=== PATIENT | female | born 1940 | race Caucasian/White ===

== ENCOUNTER 2020-08-27 12:08 | Outpatient (REF) | payer MEDICARE, OTHER, SELFPAY ==
[2020-08-27 13:47] LABS: MANUAL DIFF FLAG NO
[2020-08-27 14:00] LABS: Basophils Absolute Auto 0.1 X10*3/uL (0.0-0.2); Basophils Percent Auto 0.7 % (0-2); Eosinophils Absolute Auto 0.2 X10*3/uL (0.0-0.4); Eosinophils Percent Auto 3.1 % (0-4); Hemoglobin 12.3 g/dl (12.0-16.0); Imm Gran Abs Auto 0.04 X10*3/uL (0.00-0.03); Imm Gran Pct Auto 0.6 % (0.0-0.4); Lymphocytes Absolute Auto 1.2 X10*3/uL (1.2-4.9); Lymphocytes Percent Auto 18.5 % (20-40); Mean Corpuscular HGB Conc 32.4 g/dl (31.0-35.0); Mean Corpuscular Hemoglobin 29.9 pg (27.0-33.0); Mean Corpuscular Volume 92.5 fL (80-98); Mean Platelet Volume 9.9 fL (9.4-12.3); Monocytes Absolute Auto 0.5 X10*3/uL (0.1-1.2); Monocytes Percent Auto 7.7 % (2-11); Neutrophils Absolute Auto 4.7 X10*3/uL (2.0-8.3); Neutrophils Percent Auto 69.4 % (45-73); Platelet Count 300 X10*3/uL (160-400); Red Blood Count 4.11 X10*6/uL (4.20-5.50); Red Cell Distribution Width 14.2 % (11.0-16.0); White Blood Count 6.7 X10*3/uL (4.8-10.8)
[2020-08-27 14:26] LABS: Alanine Aminotransferase 14 U/L (0-31); Albumin Level 3.8 g/dL (3.5-5.0); Alkaline Phosphatase 91 U/L (39-117); Anion Gap 15 (12-20); Aspartate Amino Transferase 24 U/L (5-31); Bilirubin Total 0.4 mg/dL (0.0-1.0); Blood Urea Nitrogen 17 mg/dL (9-16); C Reactive Protein 0.67 mg/dL (< or = 0.50); Calcium 9.2 mg/dL (8.4-10.2); Carbon Dioxide 26 mmol/L (22-29); Chloride 102 mmol/L (96-108); Estimated Glomerular Filt Rate 57; Glucose Random 93 mg/dL (60-115); Sodium 139 mmol/L (135-145); Total Protein 6.8 g/dL (6.5-8.0); Uric Acid 5.2 mg/dL (2.4-5.7)
[2020-08-27 14:29] LABS: Vitamin D 25-OH Total 38.9 ng/mL (>30)
== END 2020-08-27 12:09 | disposition home or self-care (01) ==
LOC: HO.10HDL 12:08
PROVIDERS: Visit Provider Student in an Organized Health Care Education/Training Program
DX: M05.79 Rheumatoid arthritis with rheumatoid factor of multiple sites without organ or systems involvement (principal); M81.0 Age-related osteoporosis without current pathological fracture; M10.071 Idiopathic gout, right ankle and foot
CPT/HCPCS: 36415; 80053; 82306; 84550; 85025; 86140

== ENCOUNTER 2020-10-05 11:33 | Outpatient (REF) | payer MEDICARE, OTHER, SELFPAY ==
--- NOTE | 2020-10-05 11:35 | XR_ITS ---
EXAMINATION: XR FOOT, RIGHT CLINICAL INFORMATION: Fracture base fifth metatarsal right foot. Follow-up. COMPARISON: Radiographs right foot 07/20/2020, 06/19/2020, 06/08/2020 TECHNIQUE: AP, lateral, and oblique views of the right foot. FINDINGS: There is stable transverse fracture base fifth metatarsal without change in alignment. No destructive process. Fracture line is still clearly visible. There is no acute bony abnormality. Again, prominent degenerative changes first MTP is again seen there is bulky plantar calcaneal spur and borderline posterior calcaneal spurring again noted. XR/XR foot RT min 3V IMPRESSION: 1. Fracture base fifth metatarsal unchanged in alignment. Fracture line still clearly visible. 2. Degenerative changes first MTP. Calcaneal spurs.
== END 2020-10-05 11:34 | disposition home or self-care (01) ==
LOC: HO.HOSX 11:33
PROVIDERS: Visit Provider Orthopaedic Surgery
DX: S92.351A Displaced fracture of fifth metatarsal bone, right foot, initial encounter for closed fracture (principal); M75.51 Bursitis of right shoulder; I10 Essential (primary) hypertension; Z79.899 Other long term (current) drug therapy
CPT/HCPCS: 20610; 73630; 99212; J1100

== ENCOUNTER 2020-12-07 08:50 | Outpatient (REF) | payer MEDICARE, OTHER, SELFPAY | END 2020-12-07 08:51 | disposition home or self-care (01) | LOC: HO.HOSX 08:50 | PROVIDERS: Visit Provider Orthopaedic Surgery | DX: Z13.89 Encounter for screening for other disorder (principal) ==

== ENCOUNTER 2020-12-14 08:24 | Outpatient (REF) | payer MEDICARE, OTHER, SELFPAY ==
--- NOTE | ~2020-12-14 | XR_ITS ---
EXAMINATION: XR FOOT, RIGHT CLINICAL INFORMATION: Nondisplaced fracture fifth metatarsal bone left foot. COMPARISON: None TECHNIQUE: AP, lateral, and oblique views of the right foot. FINDINGS: Mild loss of first MTP joint space with sclerosis consistent with degenerative changes. The DIP and PIP joints and rest of the MTP joints are normal. No visible fracture, dislocation or subluxation seen. The soft tissues are normal. The ankle mortise and subtalar joints are normal. There is a small calcaneal heel spur. XR/XR foot RT min 3V IMPRESSION: Mild degenerative changes first MTP joint without any visible acute fracture or dislocation. Small calcaneal heel spur. The soft tissues are unremarkable.
== END 2020-12-14 08:25 | disposition home or self-care (01) ==
LOC: HO.HOSX 08:24
PROVIDERS: Visit Provider Orthopaedic Surgery
DX: S92.355D Nondisplaced fracture of fifth metatarsal bone, left foot, subsequent encounter for fracture with routine healing (principal)
CPT/HCPCS: 73630; 99212

== ENCOUNTER 2020-12-28 12:34 | Emergency (ER) | payer MEDICARE, OTHER, SELFPAY ==
[2020-12-28 13:39] VITALS: BP 159/58; PULSE 82; RESP 16; TEMP 37.1; O2SAT 99; BMI 28.1
--- NOTE | 2020-12-28 14:02 | ED.GENADULT ---
HPI - General Adult General Chief complaint: Upper Respiratory Symptoms <ALFIE Barcenas - Last Filed: 12/28/20 14:38> Stated complaint: SORETHROAT <ALFIE Barcenas - Last Filed: 12/28/20 14:38> Time Seen by Provider: 12/28/20 13:48 <ALFIE Barcenas - Last Filed: 12/28/20 14:38> Source: patient <ALFIE Barcenas - Last Filed: 12/28/20 14:38> Mode of arrival: ambulatory <ALFIE Barcenas - Last Filed: 12/28/20 14:38> Limitations: no limitations <ALFIE Barcenas Last Filed: 12/28/20 14:38> History of Present Illness HPI narrative: 80 y/o female with below PMH presents to the ED with 5 days of worsening sore throat. She states it feels like she is swallowing razor blades. She reports painful swallowing but she is able to eat and drink normally. She denies fever, chills, SOB, myalgias, N/V/D. She is reporting mild, nonproductive cough intermittently and headache. She has been using warm salt water gargles without improvement. No change in voice and she is able to handle her secretions normally. <ALFIE Barcenas - Last Filed: 12/28/20 14:38> MD complaint: sore throat. <ALFIE Barcenas - Last Filed: 12/28/20 14:38> Onset (ago): day(s) (5) <ALFIE Barcenas - Last Filed: 12/28/20 14:38> Location: mouth <ALFIE Barcenas - Last Filed: 12/28/20 14:38> Radiation: non-radiation <ALFIE Barcenas Last Filed: 12/28/20 14:38> Severity: severe <ALFIE Barcenas Last Filed: 12/28/20 14:38> Quality: stabbing, sharp and constant <ALFIE Barcenas Last Filed: 12/28/20 14:38> Pain Consistency: constant <ALFIE Barcenas - Last Filed: 12/28/20 14:38> Relieving factors: medication <ALFIE Barcenas - Last Filed: 12/28/20 14:38> Exacerbating factors: eating <ALFIE Barcenas - Last Filed: 12/28/20 14:38> Associated symptoms: cough and headaches <ALFIE Barcenas - Last Filed: 12/28/20 14:38> Treatments prior to arrival: none <ALFIE Barcenas - Last Filed: 12/28/20 14:38> Related Data Home medications: Home Medications Medication Instructions Recorded Confirmed acetaminophen 325 mg tablet 325 mg PO QID PRN 09/04/20 10/08/20 calcium cit 250 mg-mag 40 mg-D3 1 tab PO DAILY 09/04/20 10/08/20 125 unit-zinc 3.75 mg-certified endoscopy technician-kd tablet fexofenadine 180 mg tablet 180 mg PO DAILY 09/04/20 10/08/20 fluorometholone acetate 0.1 % eye 2 drp OPHTHALMIC (EYE) Q1H 09/04/20 10/08/20 drops,suspension folic acid 1 mg tablet 1 mg PO DAILY 09/04/20 10/08/20 metoprolol succinate 25 mg 25 mg PO DAILY 09/04/20 10/08/20 tablet,extended release 24 hr multivitamin 1 tab PO DAILY 09/04/20 10/08/20 omeprazole 40 mg capsule,delayed 40 mg PO DAILY 09/04/20 10/08/20 release prednisolone acetate 1 % eye 2 drp OPHTHALMIC (EYE) BID 09/04/20 10/08/20 drops,suspension ropinirole 3 mg tablet 3 mg PO DAILY 09/04/20 10/08/20 vitamin B complex 1 tab PO DAILY 09/04/20 10/08/20 Previous Rx's Medication Instructions Recorded tramadol 50 mg tablet 100 mg PO BID PRN 30 Days #120 tab 09/24/20 CMF Bone Stimulator #1 ea 10/09/20 hydrochlorothiazide 25 mg tablet 25 mg PO DAILY #90 tab 10/22/20 methotrexate sodium 2.5 mg tablet See Rx Instructions PO QWEEK #120 11/10/20 tab montelukast 10 mg tablet 10 mg PO BEDTIME #90 tab 12/02/20 pravastatin 10 mg tablet 10 mg PO BEDTIME #90 tab 12/02/20 lidocaine HCl [Lidocaine Viscous] 5 ml MUCOUS MEMBRANE QID PRN #100 01/01/21 ml meloxicam 15 mg tablet 15 mg PO DAILY #30 tab 01/01/21 dyclonine 2 mg MUCOUS MEMBRANE Q2H PRN #18 ea 01/04/21 clotrimazole 10 mg abby 10 mg MUCOUS MEMBRANE TID 10 Days 01/05/21 #30 tab <ALFIE Barcenas - Last Filed: 12/28/20 14:38> Allergies/adverse reactions: Allergies Allergy/AdvReac Type Severity Reaction Status Date / Time alendronate sodium Allergy Severe ANAPHYLAXIS Verified 01/07/21 13:04 [From FOSAMAX] lisinopril [LISINOPRIL] Allergy Severe ANAPHYLAXIS, Verified 01/07/21 13:04 cough clarithromycin Allergy Intermediate CONFUSION, Verified 01/07/21 13:04 [CLARITHROMYCIN] sores on tongue, dry mouth simvastatin [SIMVASTATIN] Allergy Mild DRY Verified 01/07/21 13:04 THROAT, achy, confusion <ALFIE Barcenas - Last Filed: 12/28/20 14:38> Review of Systems Review of Systems: Constitutional: No Fever, No Chills ENT/Mouth: + sore throat, No Rhinorrhea, No Swallowing Difficulty Cardiovascular: No Chest Pain, No SOB, No Orthopnea, No Edema Respiratory: + Cough, No Sputum, No Wheezing, No dyspnea Gastrointestinal: No Nausea, No Vomiting, No Diarrhea, No abdominal Pain Musculoskeletal: No joint pain, No Myalgias Skin: No Skin Lesions, No rash Neuro: No Weakness, No Numbness, No Dizziness, + Headache Heme/Lymph: No Bruising, No Lymphadenopathy <ALFIE Barcenas Last Filed: 12/28/20 14:38> [facility] Past Medical History Attestation statement: The following information was validated with the patient. <ALFIE Barcenas Last Filed: 12/28/20 14:38> Medical History: Medical History Anxiety and depression Asthma Fracture of 5th metatarsal Fracture of fifth metatarsal bone of right foot GERD (gastroesophageal reflux disease) Gout High cholesterol Hypercholesterolemia Hypergammaglobulinemia Hypertension Hypertension Lumbar degenerative disc disease Nondisplaced fracture of fifth metatarsal bone, left foot, subsequent encounter for fracture with nonunion Obesity (BMI 30-39.9) Osteoarthritis Osteoporosis Peripheral neuropathy Polymyalgia rheumatica Restless leg syndrome Rheumatoid arthritis Seizure disorder Seropositive rheumatoid arthritis Thrush, oral <ALFIE Barcenas - Last Filed: 12/28/20 14:38> Surgical History: Surgical History Corneal transplant status H/O left knee surgery History of appendectomy History of arthroplasty of right hip History of cholecystectomy History of corneal transplant History of open reduction and internal fixation (ORIF) procedure History of total abdominal hysterectomy <ALFIE Barcenas - Last Filed: 12/28/20 14:38> Family History Family History: Family History Father CVD (cardiovascular disease) Mother No problems noted. <ALFIE Barcenas - Last Filed: 12/28/20 14:38> Social History Social History: Social History Alcohol intake: current Alcohol intake frequency: a few times a month Alcohol type: wine Smoking Status: Never smoker <ALFIE Barcenas - Last Filed: 12/28/20 14:38> Physical Exam Vital Signs: Vital Signs: Last Vital Signs Temp 98.8 F 12/28/20 13:39 Pulse 82 12/28/20 13:39 Resp 16 12/28/20 13:39 BP 159/58 H 12/28/20 13:39 Pulse Ox 99 12/28/20 13:39 Body Mass Index 28.1 Appearance: Alert. Oriented X3. No acute distress. Eyes: Pupils equal, round and reactive to light. ENT: Pharynx with enlarged tonsils bilaterally, severe erythema with mild exudates. No appreciable peritonsillar abscess, uvula is midline. voice is normal. Neck: Normal inspection. Neck supple with mild tenderness submandibularly. CVS: Normal heart rate and rhythm. Pulses normal. Respiratory: No respiratory distress. Breath sounds normal. Abdomen: Soft and nontender. +BS x4 Skin: Skin warm and dry. Normal skin color. Normal skin turgor. No rashes. Extremities: No lower extremity edema. Neuro: Oriented X 3. Non-focal. <ALFIE Barcenas - Last Filed: 12/28/20 14:38> Vital Signs: Last Vital Signs Temp 98.8 F 12/28/20 13:39 Pulse 82 12/28/20 13:39 Resp 16 12/28/20 13:39 BP 159/58 H 12/28/20 13:39 Pulse Ox 99 12/28/20 13:39 Body Mass Index 28.1 <Sourav Henao MD - Last Filed: 01/18/21 18:35> Course Course Course Narrative: 80 y/o female presenting with sore throat x5 days. Exam consistent with strep pharyngitis. Will treat accordingly. Will also test for COVID/Flu/RSV and call her with results. She is non-toxic and appears well. Management and follow up discussed and patient agrees with plan. Stable for discharge. Spoke with pharmacy about MTX reaction with penicillins however given she is on such a low dose it is safe to prescribe. <ALFIE Barcenas - Last Filed: 12/28/20 14:38> I have reviewed the chart <Sourav Henao MD - Last Filed: 01/18/21 18:35> Medical Decision Making Lab Data Labs: Lab Results 12/28/20 Range/Units 14:07 Coronavirus (PCR) NEGATIVE (Negative) Influenza Type A (PCR) NEGATIVE (Negative) Influenza Type B (PCR) NEGATIVE (Negative) RSV RNA Qual (PCR) NEGATIVE (Negative) <ALFIE Barcenas - Last Filed: 12/28/20 14:38> Lab Results 12/28/20 Range/Units 14:07 Coronavirus (PCR) NEGATIVE (Negative) Influenza Type A (PCR) NEGATIVE (Negative) Influenza Type B (PCR) NEGATIVE (Negative) RSV RNA Qual (PCR) NEGATIVE (Negative) <Sourav Henao MD - Last Filed: 01/18/21 18:35> Discharge Plan Discharge Clinical Impression: Pharyngitis <ALFIE Barcenas - Last Filed: 12/28/20 14:38> Patient Disposition: Home, Self-Care <ALFIE Barcenas - Last Filed: 12/28/20 14:38> Instructions: Pharyngitis (ED) <ALFIE Barcenas - Last Filed: 12/28/20 14:38> Additional Instructions: You were tested for COVID, Influnza & RSV - we will call you the results this afternoon. Your exam is consistent with Strep throat. Take the prescribed antibiotics as directed. Take Motrin and/or Tylenol as needed for throat pain. Recommend warm salt water gargles several times per day. Recommend over the counter Chloraseptic [place] and Cepacol lozenges to help numb your throat. Follow up with your doctor this week. If you have worsening symptoms or develop difficulty handling your own secretions, experience a change in your voice, shortness of breath or difficulty breathing come back to the ER for further evaluation. <ALFIE Barcenas - Last Filed: 12/28/20 14:38> Prescriptions: No Action tramadol 50 mg tablet 100 mg PO BID PRN (Reason: pain) 30 Days Qty: 120 RF: 4 hydrochlorothiazide 25 mg tablet 25 mg PO DAILY Qty: 90 RF: 3 methotrexate sodium 2.5 mg tablet See Rx Instructions PO QWEEK Qty: 120 RF: 0 montelukast 10 mg tablet 10 mg PO BEDTIME Qty: 90 RF: 1 pravastatin 10 mg tablet 10 mg PO BEDTIME Qty: 90 RF: 1 meloxicam 15 mg tablet 15 mg PO DAILY Qty: 30 RF: 3 Lidocaine Viscous 2 % solution 5 ml mucous membrane QID PRN (Reason: pain) Qty: 100 RF: 0 dyclonine 2 mg lozenge 2 mg mucous membrane Q2H PRN (Reason: mouth pain) Qty: 18 RF: 0 metoprolol succinate 25 mg tablet extended release 24 hr 25 mg PO DAILY RF: 0 ropinirole 3 mg tablet 3 mg PO DAILY RF: 0 fexofenadine [Marisa Allergy] 180 mg tablet 180 mg PO DAILY RF: 0 acetaminophen [Tylenol] 325 mg tablet 325 mg PO QID PRNRF: 0 prednisolone acetate 1 % drops,suspension 2 drp ophthalmic (eye) BID RF: 0 fluorometholone acetate 0.1 % drops,suspension 2 drp ophthalmic (eye) Q1H RF: 0 multivitamin Tablet 1 tab PO DAILY RF: 0 vitamin B complex [B Complex-Vitamin B12] Tablet 1 tab PO DAILY RF: 0 Calcium Citrate Plus [id number] lt-po-uasi-mg tablet 1 tab PO DAILY RF: 0 folic acid 1 mg tablet 1 mg PO DAILY RF: 0 omeprazole 40 mg capsule,delayed release(DR/EC) 40 mg PO DAILY RF: 0 clotrimazole 10 mg abby 10 mg mucous membrane TID 10 Days Qty: 30 RF: 0 (DME) CMF Bone Stimulator See Rx Instructions .Route .MEDSUPPLY Qty: 1 RF: 0 <ALFIE Barcenas - Last Filed: 12/28/20 14:38> Interventions: ED Discharge Assessment Last Done: 12/28/20 14:55 <ALFIE Barcenas - Last Filed: 12/28/20 14:38> Discharge Date/Time: 12/28/20 14:55 <ALFIE Barcenas - Last Filed: 12/28/20 14:38>
[2020-12-28 14:53] LABS: Influenza A PCR NEGATIVE (Negative); Influenza B PCR NEGATIVE (Negative); Resp Syncy Virus RNA Qual PCR NEGATIVE (Negative); SARS COV2 PCR INHOUSE NEGATIVE (Negative)
== END 2020-12-28 14:55 | disposition home or self-care (01) ==
PROVIDERS: Physician Assistant; Emergency Provider Emergency Medicine; PCP Internal Medicine
DX: J02.9 Acute pharyngitis, unspecified (principal); Z20.822 Contact with and (suspected) exposure to COVID-19; I10 Essential (primary) hypertension; J45.909 Unspecified asthma, uncomplicated; Z79.899 Other long term (current) drug therapy
CPT/HCPCS: 0241U; 36415; 99283

== ENCOUNTER 2021-01-01 11:50 | Emergency (ER) | payer MEDICARE, OTHER, SELFPAY ==
[2021-01-01 11:56] VITALS: BP 141/67; PULSE 78; RESP 18; TEMP 37.6; O2SAT 98; BMI 28.1
--- NOTE | 2021-01-01 12:14 | ED_ITS ---
HPI - General Adult General Chief complaint: General Medical Stated complaint: sores in mouth,sorethroat Time Seen by Provider: 01/01/21 12:14 History of Present Illness HPI narrative: Patient complains of sores in her mouth for the last 2-3 days which make it painful to eat She was recently started on Augmentin for a strep throat infection and has been taking it for 4 days She denies any rash, she denies any diarrhea or GI symptoms, it hurts to swallow and it hurts because of the cold sores and the sore throat but she is able to swallow Related Data Home Medications Medication Instructions Recorded Confirmed acetaminophen 325 mg tablet 325 mg PO QID PRN 09/04/20 10/08/20 calcium cit 250 mg-mag 40 mg-D3 1 tab PO DAILY 09/04/20 10/08/20 125 unit-zinc 3.75 mg-fluoroscope operator-kd tablet fexofenadine 180 mg tablet 180 mg PO DAILY 09/04/20 10/08/20 fluorometholone acetate 0.1 % eye 2 drp OPHTHALMIC (EYE) Q1H 09/04/20 10/08/20 drops,suspension folic acid 1 mg tablet 1 mg PO DAILY 09/04/20 10/08/20 metoprolol succinate 25 mg 25 mg PO DAILY 09/04/20 10/08/20 tablet,extended release 24 hr multivitamin 1 tab PO DAILY 09/04/20 10/08/20 omeprazole 40 mg capsule,delayed 40 mg PO DAILY 09/04/20 10/08/20 release prednisolone acetate 1 % eye 2 drp OPHTHALMIC (EYE) BID 09/04/20 10/08/20 drops,suspension ropinirole 3 mg tablet 3 mg PO DAILY 09/04/20 10/08/20 vitamin B complex 1 tab PO DAILY 09/04/20 10/08/20 Previous Rx's Medication Instructions Recorded tramadol 50 mg tablet 100 mg PO BID PRN 30 Days #120 tab 09/24/20 CMF Bone Stimulator #1 ea 10/09/20 hydrochlorothiazide 25 mg tablet 25 mg PO DAILY #90 tab 10/22/20 meloxicam 15 mg tablet 15 mg PO DAILY #30 tab 11/02/20 methotrexate sodium 2.5 mg tablet See Rx Instructions PO QWEEK #120 11/10/20 tab montelukast 10 mg tablet 10 mg PO BEDTIME #90 tab 12/02/20 pravastatin 10 mg tablet 10 mg PO BEDTIME #90 tab 12/02/20 amoxicillin-pot clavulanate 1 tab PO BID #20 tab 12/28/20 [Augmentin] lidocaine HCl [Lidocaine Viscous] 5 ml MUCOUS MEMBRANE QID PRN #100 01/01/21 ml Allergies Allergy/AdvReac Type Severity Reaction Status Date / Time alendronate sodium Allergy Severe ANAPHYLAXIS Verified 10/08/20 10:34 [From FOSAMAX] lisinopril [LISINOPRIL] Allergy Severe ANAPHYLAXIS, Verified 10/08/20 10:34 cough clarithromycin Allergy Intermediate CONFUSION, Verified 10/08/20 10:34 [CLARITHROMYCIN] sores on tongue, dry mouth simvastatin [SIMVASTATIN] Allergy Mild DRY Verified 10/08/20 10:34 THROAT, achy, confusion Review of Systems Review of Systems: Positive for mouth sores and sore throat Negatives are difficulty breathing, no fever no chills no dizziness no weakness no nausea no vomiting no rash on the skin Yes all other systems are reviewed and are negative PMFSH Past Medical History Source: nursing notes reviewed Medical History Anxiety and depression Asthma Fracture of 5th metatarsal Fracture of fifth metatarsal bone of right foot GERD (gastroesophageal reflux disease) Gout Hypercholesterolemia Hypergammaglobulinemia Hypertension Lumbar degenerative disc disease Nondisplaced fracture of fifth metatarsal bone, left foot, subsequent encounter for fracture with nonunion Obesity (BMI 30-39.9) Osteoarthritis Osteoporosis Peripheral neuropathy Polymyalgia rheumatica Restless leg syndrome Rheumatoid arthritis Seizure disorder Seropositive rheumatoid arthritis Surgical History Corneal transplant status H/O left knee surgery History of appendectomy History of arthroplasty of right hip History of cholecystectomy History of corneal transplant History of open reduction and internal fixation (ORIF) procedure History of total abdominal hysterectomy Family History Family History Father CVD (cardiovascular disease) Mother No problems noted. Social History Social History Alcohol intake: current Alcohol intake frequency: a few times a month Alcohol type: wine Smoking Status: Never smoker Advance Directives: No Advance Directives Information Provided: Yes Physical Exam Vital Signs: Vital Signs: Last Vital Signs Temp 99.7 F 01/01/21 11:56 Pulse 78 01/01/21 11:56 Resp 18 01/01/21 11:56 BP 141/67 H 01/01/21 11:56 Pulse Ox 98 01/01/21 11:56 Body Mass Index 28.1 General appearance is comfortable relaxed cooperative in no distress no drooling, voice is normal The ears are not red, the canals are normal There is no sinus tenderness The pharynx is red without exudate, there is no tonsillar enlargement, the uvula is midline, there is no exudate, there is no trismus There are some there are small bumps on the inner oral mucosa and on the lips, there are no white patches, nothing that looks like thrush, no ulcerations, the voice is normal The neck is supple, there is some anterior tender mobile lymphadenopathy The chest is clear to auscultation bilaterally with full symmetrical equal breath sounds The skin there are no rashes, no bullae, no ulcerations Extremities full range of motion x4 Neuro no focal deficits Course Course Course Narrative: The sores in the mouth appear to be cold sores, there were no white patches it did not look like thrush, the description of the throat from the prior visit several days ago at this department was exudate visible at this point there is no exudate and the tonsillar swelling has reduced, patient tolerates p.o. and was prescribed lidocaine for pain relief and will follow with her doctor for re-evaluation Discharge Plan Discharge Clinical Impression: Cold sore Patient Disposition: Home, Self-Care Additional Instructions: I believe the sores and small red areas I saw it in your mouth are cold sores could which can be from a concurrent viral infection I saw some redness in the back her throat and some small bumps inside your lips but I did not see any whitish areas or anything that looks like thrush Follow with primary care doctor for further evaluation if this does not resolve Return to ER any time if sores in mouth seems to be worse, if you develop a rash on the skin, or any worse condition or any concerns Prescriptions: New Lidocaine Viscous 2 % solution 5 ml mucous membrane QID PRN (Reason: pain) Qty: 100 RF: 0 No Action tramadol 50 mg tablet 100 mg PO BID PRN (Reason: pain) 30 Days Qty: 120 RF: 4 hydrochlorothiazide 25 mg tablet 25 mg PO DAILY Qty: 90 RF: 3 meloxicam 15 mg tablet 15 mg PO DAILY Qty: 30 RF: 1 methotrexate sodium 2.5 mg tablet See Rx Instructions PO QWEEK Qty: 120 RF: 0 montelukast 10 mg tablet 10 mg PO BEDTIME Qty: 90 RF: 1 pravastatin 10 mg tablet 10 mg PO BEDTIME Qty: 90 RF: 1 amoxicillin-pot clavulanate [Augmentin] 875-125 mg tablet 1 tab PO BID Qty: 20 RF: 0 metoprolol succinate 25 mg tablet extended release 24 hr 25 mg PO DAILY RF: 0 ropinirole 3 mg tablet 3 mg PO DAILY RF: 0 fexofenadine [Marisa Allergy] 180 mg tablet 180 mg PO DAILY RF: 0 acetaminophen [Tylenol] 325 mg tablet 325 mg PO QID PRNRF: 0 prednisolone acetate 1 % drops,suspension 2 drp ophthalmic (eye) BID RF: 0 fluorometholone acetate 0.1 % drops,suspension 2 drp ophthalmic (eye) Q1H RF: 0 multivitamin Tablet 1 tab PO DAILY RF: 0 vitamin B complex [B Complex-Vitamin B12] Tablet 1 tab PO DAILY RF: 0 Calcium Citrate Plus [id number] dg-ez-cqnx-mg tablet 1 tab PO DAILY RF: 0 folic acid 1 mg tablet 1 mg PO DAILY RF: 0 omeprazole 40 mg capsule,delayed release(DR/EC) 40 mg PO DAILY RF: 0 (DME) CMF Bone Stimulator See Rx Instructions .Route .MEDSUPPLY Qty: 1 RF: 0 Interventions: ED Discharge Assessment Last Done: 01/01/21 12:48 Discharge Date/Time: 01/01/21 12:48
== END 2021-01-01 12:48 | disposition home or self-care (01) ==
PROVIDERS: Emergency Provider Emergency Medicine Emergency Medical Services; PCP Internal Medicine
DX: B00.1 Herpesviral vesicular dermatitis (principal); Z79.899 Other long term (current) drug therapy
CPT/HCPCS: 99283

== ENCOUNTER 2021-01-04 11:16 | Emergency (ER) | payer MEDICARE, OTHER, SELFPAY ==
[2021-01-04 12:35] VITALS: BP 131/72; PULSE 82; RESP 18; TEMP 36.9; O2SAT 98; BMI 28.1
--- NOTE | 2021-01-04 14:52 | ED_ITS ---
HPI - URI/Sore Throat General Chief Complaint: Upper Respiratory Symptoms Stated Complaint: SORETHROAT, THROAT SORES Time Seen by Provider: 01/04/21 14:52 History of Present Illness HPI Narrative: Patient complains of mouth sores for the last week that have not resolved after getting a sore throat, sore throat is very improved but mouth sores remain, no fever no chills no difficulty breathing or swallowing, no other rash Related Data Home Medications Medication Instructions Recorded Confirmed acetaminophen 325 mg tablet 325 mg PO QID PRN 09/04/20 10/08/20 calcium cit 250 mg-mag 40 mg-D3 1 tab PO DAILY 09/04/20 10/08/20 125 unit-zinc 3.75 mg-copy supervisor-kd tablet fexofenadine 180 mg tablet 180 mg PO DAILY 09/04/20 10/08/20 fluorometholone acetate 0.1 % eye 2 drp OPHTHALMIC (EYE) Q1H 09/04/20 10/08/20 drops,suspension folic acid 1 mg tablet 1 mg PO DAILY 09/04/20 10/08/20 metoprolol succinate 25 mg 25 mg PO DAILY 09/04/20 10/08/20 tablet,extended release 24 hr multivitamin 1 tab PO DAILY 09/04/20 10/08/20 omeprazole 40 mg capsule,delayed 40 mg PO DAILY 09/04/20 10/08/20 release prednisolone acetate 1 % eye 2 drp OPHTHALMIC (EYE) BID 09/04/20 10/08/20 drops,suspension ropinirole 3 mg tablet 3 mg PO DAILY 09/04/20 10/08/20 vitamin B complex 1 tab PO DAILY 09/04/20 10/08/20 Previous Rx's Medication Instructions Recorded tramadol 50 mg tablet 100 mg PO BID PRN 30 Days #120 tab 09/24/20 [facility]F Bone Stimulator #1 ea 10/09/20 hydrochlorothiazide 25 mg tablet 25 mg PO DAILY #90 tab 10/22/20 methotrexate sodium 2.5 mg tablet See Rx Instructions PO QWEEK #120 11/10/20 tab montelukast 10 mg tablet 10 mg PO BEDTIME #90 tab 12/02/20 pravastatin 10 mg tablet 10 mg PO BEDTIME #90 tab 12/02/20 amoxicillin-pot clavulanate 1 tab PO BID #20 tab 12/28/20 [Augmentin] lidocaine HCl [Lidocaine Viscous] 5 ml MUCOUS MEMBRANE QID PRN #100 01/01/21 ml meloxicam 15 mg tablet 15 mg PO DAILY #30 tab 01/01/21 dyclonine 2 mg MUCOUS MEMBRANE Q2H PRN #18 ea 01/04/21 clotrimazole 10 mg abby 10 mg MUCOUS MEMBRANE TID 10 Days 01/05/21 #30 tab Allergies Allergy/AdvReac Type Severity Reaction Status Date / Time alendronate sodium Allergy Severe ANAPHYLAXIS Verified 01/04/21 12:35 [From FOSAMAX] lisinopril [LISINOPRIL] Allergy Severe ANAPHYLAXIS, Verified 01/04/21 12:35 cough clarithromycin Allergy Intermediate CONFUSION, Verified 01/04/21 12:35 [CLARITHROMYCIN] sores on tongue, dry mouth simvastatin [SIMVASTATIN] Allergy Mild DRY Verified 01/04/21 12:35 THROAT, achy, confusion Review of Systems Review of Systems: Positive for mouth sores negatives are no fever no chills no dizziness no weakness no sore throat no difficulty breathing or swallowing, no neck pain, no chest pain no shortness of breath, no other rash, no joint pains PMFSH Past Medical History Source: nursing notes reviewed Medical History Anxiety and depression Asthma Fracture of 5th metatarsal Fracture of fifth metatarsal bone of right foot GERD (gastroesophageal reflux disease) Gout High cholesterol Hypercholesterolemia Hypergammaglobulinemia Hypertension Hypertension Lumbar degenerative disc disease Nondisplaced fracture of fifth metatarsal bone, left foot, subsequent encounter for fracture with nonunion Obesity (BMI 30-39.9) Osteoarthritis Osteoporosis Peripheral neuropathy Polymyalgia rheumatica Restless leg syndrome Rheumatoid arthritis Seizure disorder Seropositive rheumatoid arthritis Thrush, oral Surgical History Corneal transplant status H/O left knee surgery History of appendectomy History of arthroplasty of right hip History of cholecystectomy History of corneal transplant History of open reduction and internal fixation (ORIF) procedure History of total abdominal hysterectomy Family History Family History Father CVD (cardiovascular disease) Mother No problems noted. Social History Social History Alcohol intake: current Alcohol intake frequency: a few times a month Alcohol type: wine Smoking Status: Never smoker Physical Exam Vital Signs: Vital Signs: Last Vital Signs Temp 98.4 F 01/04/21 12:35 Pulse 82 01/04/21 12:35 Resp 18 01/04/21 12:35 BP 131/72 01/04/21 12:35 Pulse Ox 98 01/04/21 12:35 Body Mass Index 28.1 General appearance no acute distress, comfortable relaxed and cooperative The pharynx is clear, there is no redness or exudate in the posterior pharynx no tonsillar swelling, there are mouth sores on the inner lower and upper lip, no trismus no facial swelling, no drooling, uvula is midline, the mouth sores appear to be small indurated areas, there is no obvious ulceration The neck is supple without stridor The chest is clear to auscultation, no respiratory distress Extremities full range of motion x4 Skin no rashes Neuro no focal deficits Course Course Course Narrative: Patient is advised that mouth sores can sometimes take up to 2 weeks to resolve and recommend follow-up with primary care doctor, if they do not resolve recommend referral to ENT Discharge Plan Discharge Clinical Impression: Mouth sores Patient Disposition: Home, Self-Care Additional Instructions: Mouth sores have not improved over the last week, but mouth sores can sometimes last 1-2 weeks and will still probably go away by themselves You can use Maalox liquid to soak in your gums by the sores and then spit out as well as Benadryl liquid to rinse and spit out as well they may help I also ordered a prescription for some lozenges that might help soothe the area as pain relief Follow with your doctor as scheduled Return any concerns Prescriptions: New dyclonine 2 mg lozenge 2 mg mucous membrane Q2H PRN (Reason: mouth pain) Qty: 18 RF: 0 No Action tramadol 50 mg tablet 100 mg PO BID PRN (Reason: pain) 30 Days Qty: 120 RF: 4 hydrochlorothiazide 25 mg tablet 25 mg PO DAILY Qty: 90 RF: 3 methotrexate sodium 2.5 mg tablet See Rx Instructions PO QWEEK Qty: 120 RF: 0 montelukast 10 mg tablet 10 mg PO BEDTIME Qty: 90 RF: 1 pravastatin 10 mg tablet 10 mg PO BEDTIME Qty: 90 RF: 1 meloxicam 15 mg tablet 15 mg PO DAILY Qty: 30 RF: 3 amoxicillin-pot clavulanate [Augmentin] 875-125 mg tablet 1 tab PO BID Qty: 20 RF: 0 Lidocaine Viscous 2 % solution 5 ml mucous membrane QID PRN (Reason: pain) Qty: 100 RF: 0 metoprolol succinate 25 mg tablet extended release 24 hr 25 mg PO DAILY RF: 0 ropinirole 3 mg tablet 3 mg PO DAILY RF: 0 fexofenadine [Marisa Allergy] 180 mg tablet 180 mg PO DAILY RF: 0 acetaminophen [Tylenol] 325 mg tablet 325 mg PO QID PRNRF: 0 prednisolone acetate 1 % drops,suspension 2 drp ophthalmic (eye) BID RF: 0 fluorometholone acetate 0.1 % drops,suspension 2 drp ophthalmic (eye) Q1H RF: 0 multivitamin Tablet 1 tab PO DAILY RF: 0 vitamin B complex [B Complex-Vitamin B12] Tablet 1 tab PO DAILY RF: 0 Calcium Citrate Plus 305-53-026-3.75 ql-cc-oogv-mg tablet 1 tab PO DAILY RF: 0 folic acid 1 mg tablet 1 mg PO DAILY RF: 0 omeprazole 40 mg capsule,delayed release(DR/EC) 40 mg PO DAILY RF: 0 clotrimazole 10 mg abby 10 mg mucous membrane TID 10 Days Qty: 30 RF: 0 (DME) CMF Bone Stimulator See Rx Instructions .Route .MEDSUPPLY Qty: 1 RF: 0 Interventions: ED Discharge Assessment Last Done: 01/04/21 15:02 Discharge Date/Time: 01/04/21 15:02
== END 2021-01-04 15:02 | disposition home or self-care (01) ==
PROVIDERS: Emergency Provider Emergency Medicine; PCP Internal Medicine
DX: K13.79 Other lesions of oral mucosa (principal); J02.9 Acute pharyngitis, unspecified; I10 Essential (primary) hypertension; J45.909 Unspecified asthma, uncomplicated; K21.9 Gastro-esophageal reflux disease without esophagitis
CPT/HCPCS: 99283

== ENCOUNTER → 2021-01-07 13:00 | Outpatient (BNVA) | payer MEDICARE, OTHER, SELFPAY | PROVIDERS: PCP Internal Medicine; Visit Provider Student in an Organized Health Care Education/Training Program | DX: M05.9 Rheumatoid arthritis with rheumatoid factor, unspecified (principal); M81.0 Age-related osteoporosis without current pathological fracture; M1A.0710 Idiopathic chronic gout, right ankle and foot, without tophus (tophi); Z79.899 Other long term (current) drug therapy | CPT/HCPCS: 99212 ==

== ENCOUNTER 2021-02-09 11:49 | Outpatient (REF) | payer MEDICARE, OTHER, SELFPAY ==
[2021-02-09 14:18] LABS: MANUAL DIFF FLAG NO
[2021-02-09 14:31] LABS: Basophils Absolute Auto 0.1 X10*3/uL (0.0-0.2); Basophils Percent Auto 1.4 % (0-2); Eosinophils Absolute Auto 0.7 X10*3/uL (0.0-0.4); Eosinophils Percent Auto 7.8 % (0-4); Hematocrit 38.5 % (37-47); Hemoglobin 12.2 g/dl (12.0-16.0); Imm Gran Abs Auto 0.03 X10*3/uL (0.00-0.03); Imm Gran Pct Auto 0.3 % (0.0-0.4); Lymphocytes Absolute Auto 2.4 X10*3/uL (1.2-4.9); Lymphocytes Percent Auto 27.6 % (20-40); Mean Corpuscular HGB Conc 31.7 g/dl (31.0-35.0); Mean Corpuscular Hemoglobin 29.3 pg (27.0-33.0); Mean Corpuscular Volume 92.5 fL (80-98); Mean Platelet Volume 10.4 fL (9.4-12.3); Monocytes Absolute Auto 0.6 X10*3/uL (0.1-1.2); Monocytes Percent Auto 6.9 % (2-11); Neutrophils Absolute Auto 4.9 X10*3/uL (2.0-8.3); Platelet Count 226 X10*3/uL (160-400); Red Blood Count 4.16 X10*6/uL (4.20-5.50); Red Cell Distribution Width 14.6 % (11.0-16.0); White Blood Count 8.8 X10*3/uL (4.8-10.8)
[2021-02-09 14:40] LABS: Alanine Aminotransferase 21 U/L (0-31); Albumin Level 3.7 g/dL (3.5-5.0); Alkaline Phosphatase 95 U/L (39-117); Anion Gap 12 (12-20); Aspartate Amino Transferase 24 U/L (5-31); Bilirubin Total 0.4 mg/dL (0.0-1.0); Blood Urea Nitrogen 18 mg/dL (9-16); Calcium 9.2 mg/dL (8.4-10.2); Carbon Dioxide 24 mmol/L (22-29); Chloride 107 mmol/L (96-108); Cholesterol 187 mg/dL; Estimated Glomerular Filt Rate > 60; Glucose Random 102 mg/dL (60-115); HDL Cholesterol 46 mg/dL; LDL Cholesterol Calculated 114 mg/dl; Potassium 4.4 mmol/L (3.3-5.1); Sodium 139 mmol/L (135-145); Total Protein 7.1 g/dL (6.5-8.0); Triglycerides 137 mg/dL
[2021-02-09 15:21] LABS: Erythrocyte Sedimentation Rate 17 MM/HR (0-20)
== END 2021-02-09 11:50 | disposition home or self-care (01) ==
LOC: HO.10HDL 11:49
PROVIDERS: Internal Medicine; Visit Provider Student in an Organized Health Care Education/Training Program
DX: M06.9 Rheumatoid arthritis, unspecified (principal); M05.9 Rheumatoid arthritis with rheumatoid factor, unspecified; E78.00 Pure hypercholesterolemia, unspecified
CPT/HCPCS: 36415; 80053; 80061; 84550; 85025; 85652; 86140

== ENCOUNTER → 2021-04-14 15:18 | Outpatient (BNVA) | payer MEDICARE, OTHER, SELFPAY | PROVIDERS: PCP Internal Medicine; Visit Provider Student in an Organized Health Care Education/Training Program | DX: M05.9 Rheumatoid arthritis with rheumatoid factor, unspecified (principal); M81.0 Age-related osteoporosis without current pathological fracture; M1A.0710 Idiopathic chronic gout, right ankle and foot, without tophus (tophi) | CPT/HCPCS: 99212 ==

== ENCOUNTER 2021-05-26 12:41 | Outpatient (REF) | payer MEDICARE, OTHER, SELFPAY ==
[2021-05-26 13:48] LABS: Alanine Aminotransferase 16 U/L (0-31); Albumin Level 4.1 g/dL (3.5-5.0); Alkaline Phosphatase 99 U/L (39-117); Anion Gap 12 (12-20); Aspartate Amino Transferase 27 U/L (5-31); Bilirubin Total 0.5 mg/dL (0.0-1.0); Blood Urea Nitrogen 19 mg/dL (9-16); Calcium 9.7 mg/dL (8.4-10.2); Carbon Dioxide 26 mmol/L (22-29); Chloride 104 mmol/L (96-108); Estimated Glomerular Filt Rate 51; Glucose Random 97 mg/dL (60-115); Potassium 5.1 mmol/L (3.3-5.1); Sodium 137 mmol/L (135-145); Total Protein 7.9 g/dL (6.5-8.0)
[2021-05-26 13:50] LABS: Uric Acid 6.7 mg/dL (2.4-5.7)
[2021-05-26 13:56] LABS: Erythrocyte Sedimentation Rate 23 MM/HR (0-20)
[2021-05-26 14:11] LABS: Free T4 (Free Thyroxine) 0.92 ng/dL (0.71-1.85); Thyroid Stimulating Hormone 1.93 uIU/mL (0.32-4.0)
[2021-05-26 15:26] LABS: Folate > 20.0 ng/mL (> or = 4.0); Vitamin B12 581 pg/mL (200-900)
== END 2021-05-26 12:42 | disposition home or self-care (01) ==
LOC: HO.LAB 12:41
PROVIDERS: Absent Provider Internal Medicine; PCP Internal Medicine; Visit Provider Student in an Organized Health Care Education/Training Program
DX: I10 Essential (primary) hypertension (principal); M05.9 Rheumatoid arthritis with rheumatoid factor, unspecified
CPT/HCPCS: 36415; 80053; 82607; 82746; 84439; 84443; 84550; 85652

== ENCOUNTER 2021-05-29 02:35 | Emergency (ER) | payer MEDICARE, OTHER, SELFPAY ==
--- NOTE | ~2021-05-29 | XR_ITS ---
EXAMINATION: XR HAND WRIST, RIGHT CLINICAL INFORMATION: Hand and wrist pain COMPARISON: 02/15/2017 TECHNIQUE: 3 views of the right hand and wrist. FINDINGS: Osseous alignment is anatomic. No acute fracture is seen. There is severe degenerative change at the basal joint of the thumb. Scattered degenerative changes are seen in the interphalangeal joints of the digits, most severe in the third digit where there is some ulnar deviation at the PIP joint. Osteopenia is noted. XR/XR hand wrist RT IMPRESSION: No acute findings identified. Degenerative changes as noted above.
--- NOTE | ~2021-05-29 | XR_ITS ---
EXAMINATION: XR ELBOW, RIGHT CLINICAL INFORMATION: Right elbow pain COMPARISON: None TECHNIQUE: AP, lateral, and oblique views of the right elbow. FINDINGS: Osseous alignment is anatomic. No acute fracture is seen. No significant effusion or focal soft tissue abnormality. XR/XR elbow RT 2V IMPRESSION: No acute findings.
--- NOTE | ~2021-05-29 | XR_ITS ---
EXAMINATION: XR HAND/WRIST LEFT CLINICAL INFORMATION: Pain COMPARISON: 02/15/2017 TECHNIQUE: 3 views of the left hand and wrist. FINDINGS: Osseous alignment is anatomic. No acute fracture is seen. There is moderate to severe degenerative change at the basal joint of the thumb. Scattered degenerative changes are also present in the interphalangeal joints of the digits. Osteopenia is noted. XR/XR hand wrist LT IMPRESSION: No acute findings identified. Degenerative changes as noted above.
[2021-05-29 02:52] VITALS: BP 124/66; PULSE 84; RESP 16; TEMP 36.4; O2SAT 99; BMI 28.2
[2021-05-29 04:47] LABS: Basophils Absolute Auto 0.1 X10*3/uL (0.0-0.2); Basophils Percent Auto 0.5 % (0-2); Eosinophils Absolute Auto 0.3 X10*3/uL (0.0-0.4); Eosinophils Percent Auto 2.3 % (0-4); Hematocrit 38.1 % (37-47); Hemoglobin 12.2 g/dl (12.0-16.0); Imm Gran Abs Auto 0.04 X10*3/uL (0.00-0.03); Imm Gran Pct Auto 0.3 % (0.0-0.4); Lymphocytes Absolute Auto 1.4 X10*3/uL (1.2-4.9); Lymphocytes Percent Auto 11.8 % (20-40); Mean Corpuscular Hemoglobin 29.4 pg (27.0-33.0); Mean Corpuscular Volume 91.8 fL (80-98); Mean Platelet Volume 9.2 fL (9.4-12.3); Monocytes Absolute Auto 0.9 X10*3/uL (0.1-1.2); Monocytes Percent Auto 7.3 % (2-11); Neutrophils Absolute Auto 9.1 X10*3/uL (2.0-8.3); Neutrophils Percent Auto 77.8 % (45-73); Platelet Count 213 X10*3/uL (160-400); Red Blood Count 4.15 X10*6/uL (4.20-5.50); Red Cell Distribution Width 13.2 % (11.0-16.0); White Blood Count 11.7 X10*3/uL (4.8-10.8)
[2021-05-29 04:48] LABS: MANUAL DIFF FLAG NO
[2021-05-29 05:23] LABS: Alanine Aminotransferase 14 U/L (0-31); Albumin Level 3.9 g/dL (3.5-5.0); Alkaline Phosphatase 103 U/L (39-117); Anion Gap 10 (12-20); Aspartate Amino Transferase 25 U/L (5-31); Bilirubin Direct 0.2 mg/dL (0.0-0.5); Bilirubin Total 0.4 mg/dL (0.0-1.0); Blood Urea Nitrogen 20 mg/dL (9-16); Carbon Dioxide 28 mmol/L (22-29); Chloride 103 mmol/L (96-108); Creatinine Clr Calc Pharmacy 46.8; Estimated Glomerular Filt Rate 53; Glucose Random 111 mg/dL (60-115); Potassium 4.3 mmol/L (3.3-5.1); Sodium 137 mmol/L (135-145); Total Protein 7.4 g/dL (6.5-8.0)
--- NOTE | 2021-05-29 06:03 | ED.EXTPRO ---
HPI - Extremity Problem General Chief complaint: Extremity Injury, Upper Stated complaint: arm pain up elbow Time Seen by Provider: 05/29/21 04:31 Source: patient Mode of arrival: ambulatory Limitations: no limitations History of Present Illness HPI Narrative: Patient comes emergency room complaining of right-sided hand pain. Patient has been diagnosed with rheumatoid arthritis in the past, patient has also history of gout. Patient states that she is currently taking methotrexate. Patient states the pain is to the stronger than usual in her right hand, on the right wrist. Patient denies swelling, no redness. Related Data Home Medications Medication Instructions Recorded Confirmed acetaminophen 325 mg tablet 325 mg PO QID PRN 09/04/20 04/14/21 calcium cit 250 mg-mag 40 mg-D3 1 tab PO DAILY 09/04/20 04/14/21 125 unit-zinc 3.75 mg-command post craftsman-kd tablet fexofenadine 180 mg tablet 180 mg PO DAILY 09/04/20 04/14/21 fluorometholone acetate 0.1 % eye 2 drp OPHTHALMIC (EYE) Q1H 09/04/20 04/14/21 drops,suspension folic acid 1 mg tablet 1 mg PO DAILY 09/04/20 04/14/21 multivitamin 1 tab PO DAILY 09/04/20 04/14/21 prednisolone acetate 1 % eye 2 drp OPHTHALMIC (EYE) BID 09/04/20 04/14/21 drops,suspension vitamin B complex 1 tab PO DAILY 09/04/20 04/14/21 Previous Rx's Medication Instructions Recorded tramadol 50 mg tablet 100 mg PO BID PRN 30 Days #120 tab 09/24/20 CMF Bone Stimulator #1 ea 10/09/20 hydrochlorothiazide 25 mg tablet 25 mg PO DAILY #90 tab 10/22/20 lidocaine HCl [Lidocaine Viscous] 5 ml MUCOUS MEMBRANE QID PRN #100 01/01/21 ml dyclonine 2 mg MUCOUS MEMBRANE Q2H PRN #18 ea 01/04/21 clotrimazole 10 mg abby 10 mg MUCOUS MEMBRANE TID 10 Days 01/05/21 #30 tab ropinirole 3 mg tablet 3 mg PO DAILY #90 tab 02/01/21 metoprolol succinate 25 mg 25 mg PO DAILY #90 tab 02/05/21 tablet,extended release 24 hr omeprazole 40 mg capsule,delayed 40 mg PO DAILY #90 cap 04/02/21 release methotrexate sodium 2.5 mg tablet 25 mg PO QWEEK #120 tab 03/18/21 montelukast 10 mg tablet 10 mg PO BEDTIME #90 tab 03/18/21 pravastatin 10 mg tablet 10 mg PO BEDTIME #90 tab 03/18/21 meloxicam 15 mg tablet 15 mg PO DAILY 90 Days #90 tab 04/21/21 oxycodone 5 mg PO TID PRN #14 cap 05/29/21 Allergies Allergy/AdvReac Type Severity Reaction Status Date / Time alendronate sodium Allergy Severe ANAPHYLAXIS Verified 05/13/21 15:30 [From FOSAMAX] lisinopril [LISINOPRIL] Allergy Severe ANAPHYLAXIS, Verified 05/13/21 15:30 cough clarithromycin Allergy Intermediate CONFUSION, Verified 05/13/21 15:30 [CLARITHROMYCIN] sores on tongue, dry mouth simvastatin [SIMVASTATIN] Allergy Mild DRY Verified 05/13/21 15:30 THROAT, achy, confusion Review of Systems Review of Systems: Constitutional : No Weight loss, No Fever, No Chills, No Night Sweats, No Fatigue, No Malaise ENT/Mouth : No Hearing loss, No Ear Pain, No Nasal Congestion, No Sinus Pain, No Hoarseness, No sore throat, No Rhinorrhea, No Swallowing Difficulty Eyes: No Eye Pain, No Swelling, No Redness, No Foreign Body, No Discharge, No Vision Changes Cardiovascular : No Chest Pain, No SOB, No Dyspnea on Exertion, No Orthopnea, No Edema, No Palpitations Respiratory : No Cough, No Sputum, No Wheezing, No Smoke Exposure, No Dyspnea Gastrointestinal : No Nausea, No Vomiting, No Diarrhea, No Constipation, No abdominal Pain, No Hematochezia, No Melena Genitourinary : no irregular bleeding, No Dysuria, No Urinary Frequency, No Hematuria, No Urinary Incontinence, No Urgency, No Flank Pain, No Urinary Flow Changes, No Hesitancy Musculoskeletal : Complaining of multiple joint pains including hands wrists ankles, No Myalgias, No Joint Swelling Skin : No Skin Lesions, No rash Neuro : No Weakness, No Numbness, No Paresthesias, No Loss of Consciousness, No Dizziness, No Headache Psych : No Anxiety/Panic, No Depression, No SI/HI/AH/VH, No Social Issues, Heme/Lymph: No Bruising, No Bleeding,No Lymphadenopathy Endocrine : No Polyuria, No Polydipsia, No Temperature Intolerance [facility] Past Medical History Medical History Anxiety and depression Asthma Fracture of 5th metatarsal Fracture of fifth metatarsal bone of right foot GERD (gastroesophageal reflux disease) Gout High cholesterol Hypercholesterolemia Hypergammaglobulinemia Hypertension Hypertension Lumbar degenerative disc disease Nondisplaced fracture of fifth metatarsal bone, left foot, subsequent encounter for fracture with nonunion Osteoarthritis Osteoporosis Overweight (BMI 25.0-29.9) Peripheral neuropathy Polymyalgia rheumatica Restless leg syndrome Rheumatoid arthritis Seizure disorder Seropositive rheumatoid arthritis Thrush, oral Surgical History Corneal transplant status H/O left knee surgery History of appendectomy History of arthroplasty of right hip History of cholecystectomy History of corneal transplant History of open reduction and internal fixation (ORIF) procedure History of total abdominal hysterectomy Family History Family History Father CVD (cardiovascular disease) Mother No problems noted. Social History Social History (Updated 04/14/21 @ 15:33 by Leroy Campbell LPN) Housing: House Alcohol intake: current Alcohol intake frequency: a few times a month Alcohol type: wine Patient Tobacco Use Status: Never used Tobacco e-Cigarette/Vaping Use: Never Used Second Hand Smoke Exposure: No Advance Directives: No Advance Directives Information Provided: No service: No Current occupational status: retired Physical Exam Vital Signs: Vital Signs: Last Vital Signs Temp 97.5 F 05/29/21 02:52 Pulse 84 05/29/21 02:52 Resp 16 05/29/21 02:52 BP 124/66 05/29/21 02:52 Pulse Ox 99 05/29/21 02:52 Body Mass Index 28.2 Appearance: Alert. Oriented X3. No acute distress. Eyes: Pupils equal, round and reactive to light. ENT: Pharynx normal. Neck: Normal inspection. Neck supple. No lymph nodes noted. No crepitus CVS: Normal heart rate and rhythm. Pulses normal. Normal S1 and S2 Respiratory: No respiratory distress. Breath sounds normal. No Wheezing. No rales Abdomen: Soft and nontender. No rigidity. No distention. good BS x4 Skin: Skin warm and dry. Normal skin color. Normal skin turgor. Extremities: No lower extremity edema. [place] deformity to digits of both hands. Patient is able to flex and extend all fingers, move wrist, no erythema, no joint swelling Neuro: Oriented X 3. No motor deficit. No sensory deficit. Moving all extermities. No slurred speech. Course Course Course Narrative: I discussed the x-rays with the patient, no acute findings. Patient likely having pain from a rheumatoid arthritis flare up. The patient states she has tried multiple NSAIDs, non-work for the intense pain. Patient states her daughter is getting next week and, would like to have something a bit stronger to help her enjoyed the ceremony. I discussed with the patient that we will go ahead and give her oxycodone, discussed judicious use of narcotics and the potential of abuse. Patient aware,. MDM - Extremity (Nontraumatic) Lab Data Result diagrams: 05/29/21 04:41 05/29/21 04:41 Labs: Lab Results 05/29/21 05/29/21 Range/Units 04:41 04:41 WBC 11.7 H (4.8-10.8) X10*3/uL RBC 4.15 L (4.20-5.50) X10*6/uL Hgb 12.2 (12.0-16.0) g/dl Hct 38.1 (37-47) % MCV 91.8 (80-98) fL MCH 29.4 (27.0-33.0) pg MCHC 32.0 (31.0-35.0) g/dl RDW 13.2 (11.0-16.0) % Plt Count 213 (160-400) X10*3/uL MPV 9.2 L (9.4-12.3) fL Immature Gran % (Auto) 0.3 (0.0-0.4) % Neut % (Auto) 77.8 H (45-73) % Lymph % (Auto) 11.8 L (20-40) % [place] % (Auto) 7.3 (2-11) % Eos % (Auto) 2.3 (0-4) % Baso % (Auto) 0.5 (0-2) % Lymph # (Auto) 1.4 (1.2-4.9) X10*3/uL [place] # (Auto) 0.9 (0.1-1.2) X10*3/uL Eos # (Auto) 0.3 (0.0-0.4) X10*3/uL Baso # (Auto) 0.1 (0.0-0.2) X10*3/uL Abs Immat Gran (auto) 0.04 H (0.00-0.03) X10*3/uL Absolute Neuts (auto) 9.1 H (2.0-8.3) X10*3/uL Absolute Nucleated RBC 0.000 (0.0-0.012) X10*3/uL Nucleated RBC % (auto) 0.0 (0.0-0.2) /100WBC Sodium 137 (135-145) mmol/L Potassium 4.3 (3.3-5.1) mmol/L Chloride 103 (96-108) mmol/L Carbon Dioxide 28 (22-29) mmol/L Anion Gap 10 L (12-20) BUN 20 H (9-16) mg/dL Creatinine 1.00 (0.5-1.4) mg/dL Estim Creat Clear Calc 46.8 Estimated GFR 53 Random Glucose 111 (60-115) mg/dL Calcium 9.0 D (8.4-10.2) mg/dL Total Bilirubin 0.4 (0.0-1.0) mg/dL Direct Bilirubin 0.2 (0.0-0.5) mg/dL AST 25 (5-31) U/L ALT 14 (0-31) U/L Alkaline Phosphatase 103 (39-117) U/L Total Protein 7.4 (6.5-8.0) g/dL Albumin 3.9 (3.5-5.0) g/dL Imaging Data Wrist x-ray: Radiologist's impression: Osseous alignment is anatomic. No acute fracture is seen. There is severe degenerative change at the basal joint of the thumb. Scattered degenerative changes are seen in the interphalangeal joints of the digits, most severe in the third digit where there is some ulnar deviation at the PIP joint. Osteopenia is noted. XR/XR hand wrist RT IMPRESSION: No acute findings identified. Degenerative changes as noted above. Elbow x-ray: Radiologist's impression: Osseous alignment is anatomic. No acute fracture is seen. No significant effusion or focal soft tissue abnormality. XR/XR elbow RT 2V IMPRESSION: No acute findings. Discharge Plan Discharge Clinical Impression: Rheumatoid arthritis Qualifiers: Rheumatoid arthritis location: multiple sites Patient Disposition: Home, Self-Care Instructions: Rheumatoid Arthritis (ED) Additional Instructions: Please follow-up with your primary care physician tomorrow. If you have any worsening or new symptoms, please return to the emergency room or call 911 Prescriptions: New oxycodone 5 mg capsule 5 mg PO TID PRN (Reason: pain) Qty: 14 RF: 0 No Action tramadol 50 mg tablet 100 mg PO BID PRN (Reason: pain) 30 Days Qty: 120 RF: 4 hydrochlorothiazide 25 mg tablet 25 mg PO DAILY Qty: 90 RF: 3 ropinirole 3 mg tablet 3 mg PO DAILY Qty: 90 RF: 2 metoprolol succinate 25 mg tablet extended release 24 hr 25 mg PO DAILY Qty: 90 RF: 3 omeprazole 40 mg capsule,delayed release(DR/EC) 40 mg PO DAILY Qty: 90 RF: 3 methotrexate sodium 2.5 mg tablet 25 mg PO QWEEK Qty: 120 RF: 0 montelukast 10 mg tablet 10 mg PO BEDTIME Qty: 90 RF: 2 pravastatin 10 mg tablet 10 mg PO BEDTIME Qty: 90 RF: 2 meloxicam 15 mg tablet 15 mg PO DAILY 90 Days Qty: 90 RF: 2 Lidocaine Viscous 2 % solution 5 ml mucous membrane QID PRN (Reason: pain) Qty: 100 RF: 0 dyclonine 2 mg lozenge 2 mg mucous membrane Q2H PRN (Reason: mouth pain) Qty: 18 RF: 0 fexofenadine [Marisa Allergy] 180 mg tablet 180 mg PO DAILY RF: 0 acetaminophen [Tylenol] 325 mg tablet 325 mg PO QID PRNRF: 0 prednisolone acetate 1 % drops,suspension 2 drp ophthalmic (eye) BID RF: 0 fluorometholone acetate 0.1 % drops,suspension 2 drp ophthalmic (eye) Q1H RF: 0 multivitamin Tablet 1 tab PO DAILY RF: 0 vitamin B complex [B Complex-Vitamin B12] Tablet 1 tab PO DAILY RF: 0 Calcium Citrate Plus [id number] ke-ie-yszk-mg tablet 1 tab PO DAILY RF: 0 folic acid 1 mg tablet 1 mg PO DAILY RF: 0 clotrimazole 10 mg abby 10 mg mucous membrane TID 10 Days Qty: 30 RF: 0 (DME) CMF Bone Stimulator See Rx Instructions .Route .MEDSUPPLY Qty: 1 RF: 0
[2021-05-29 06:39] VITALS: RESP 18
[2021-05-29] MEDS: Morphine Sulfate 2 MG/ML CARTRIDGE IM (06:39)
== END 2021-05-29 06:47 | disposition home or self-care (01) ==
PROVIDERS: Emergency Provider Emergency Medicine; PCP Internal Medicine
DX: M06.9 Rheumatoid arthritis, unspecified (principal); I10 Essential (primary) hypertension; E78.00 Pure hypercholesterolemia, unspecified
CPT/HCPCS: 36415; 73070; 73110; 73130; 80048; 80076; 85025; 96372; 99283; 99284; J2270

== ENCOUNTER 2021-07-22 11:44 | Outpatient (REF) | payer MEDICARE, OTHER, SELFPAY ==
[2021-07-22 13:09] LABS: Basophils Absolute Auto 0.1 X10*3/uL (0.0-0.2); Basophils Percent Auto 0.6 % (0-2); Eosinophils Absolute Auto 0.3 X10*3/uL (0.0-0.4); Eosinophils Percent Auto 2.9 % (0-4); Hematocrit 36.8 % (37-47); Imm Gran Abs Auto 0.16 X10*3/uL (0.00-0.03); Imm Gran Pct Auto 1.6 % (0.0-0.4); Lymphocytes Absolute Auto 2.4 X10*3/uL (1.2-4.9); Lymphocytes Percent Auto 23.5 % (20-40); MANUAL DIFF FLAG SCAN; Mean Corpuscular HGB Conc 32.6 g/dl (31.0-35.0); Mean Platelet Volume 10.1 fL (9.4-12.3); Monocytes Absolute Auto 0.6 X10*3/uL (0.1-1.2); Monocytes Percent Auto 5.3 % (2-11); Neutrophils Absolute Auto 6.8 X10*3/uL (2.0-8.3); Neutrophils Percent Auto 66.1 % (45-73); Platelet Count 216 X10*3/uL (160-400); Red Cell Distribution Width 14.5 % (11.0-16.0); SCAN SMEAR FLAG 1; White Blood Count 10.3 X10*3/uL (4.8-10.8)
[2021-07-22 13:16] LABS: Alanine Aminotransferase 21 U/L (0-31); Albumin Level 3.8 g/dL (3.5-5.0); Alkaline Phosphatase 90 U/L (39-117); Anion Gap 12 (12-20); Aspartate Amino Transferase 24 U/L (5-31); Bilirubin Total 0.8 mg/dL (0.0-1.0); Blood Urea Nitrogen 20 mg/dL (9-16); C Reactive Protein 0.56 mg/dL (< or = 0.50); Calcium 9.7 mg/dL (8.4-10.2); Carbon Dioxide 24 mmol/L (22-29); Chloride 106 mmol/L (96-108); Estimated Glomerular Filt Rate 50; Glucose Random 95 mg/dL (60-115); Potassium 4.2 mmol/L (3.3-5.1); Sodium 138 mmol/L (135-145); Total Protein 6.9 g/dL (6.5-8.0)
[2021-07-22 13:36] LABS: SLIDE REVIEW VERIFIED
[2021-07-22 14:55] LABS: Erythrocyte Sedimentation Rate 28 MM/HR (0-20)
== END 2021-07-22 11:45 | disposition home or self-care (01) ==
LOC: HO.LAB 11:44
PROVIDERS: Absent Provider Internal Medicine; PCP Internal Medicine; Visit Provider Student in an Organized Health Care Education/Training Program
DX: Z13.89 Encounter for screening for other disorder (principal)
CPT/HCPCS: 36415; 80053; 85025; 85652; 86140

== ENCOUNTER 2021-07-22 14:30 | Outpatient (REF) | payer MEDICARE, OTHER, SELFPAY ==
[2021-07-23 12:00] LABS: Leukocytes Stool Qualitative NEGATIVE (NEGATIVE)
[2021-07-23 14:08] LABS: CDiff Gene PCR NEGATIVE (Negative)
== END 2021-07-22 14:31 | disposition home or self-care (01) ==
LOC: HO.LNP 14:30
PROVIDERS: Visit Provider Internal Medicine
DX: R19.7 Diarrhea, unspecified (principal)
CPT/HCPCS: 36415; 80053; 85025; 85652; 86140; 87045; 87046; 87493; 89055

== ENCOUNTER 2021-07-23 10:59 | Outpatient (REF) | payer MEDICARE, OTHER, SELFPAY | END 2021-07-23 11:00 | disposition home or self-care (01) | LOC: HO.LNP 10:59 | PROVIDERS: Visit Provider Internal Medicine | DX: Z13.89 Encounter for screening for other disorder (principal) | CPT/HCPCS: 87045; 87046; 87493; 89055 ==

== ENCOUNTER → 2021-08-11 10:31 | Outpatient (BNVA) | payer MEDICARE, OTHER, SELFPAY | PROVIDERS: PCP Internal Medicine; Visit Provider Nurse Practitioner Family | DX: M05.9 Rheumatoid arthritis with rheumatoid factor, unspecified (principal); M81.0 Age-related osteoporosis without current pathological fracture; M1A.0710 Idiopathic chronic gout, right ankle and foot, without tophus (tophi) | CPT/HCPCS: 99212 ==

== ENCOUNTER 2021-08-19 11:07 | Outpatient (REF) | payer MEDICARE, OTHER, SELFPAY ==
--- NOTE | ~2021-08-19 | XR_ITS ---
EXAMINATION: XR LUMBOSACRAL SPINE CLINICAL INFORMATION: Lower back pain. COMPARISON: Lumbar spine radiographs dated 11/12/2018. TECHNIQUE: Three views of the lumbosacral spine. FINDINGS: Transitional anatomy with lumbarization of the S1 vertebral body and 6 nonrib-bearing lumbar-type vertebral bodies. Levocurvature of the lumbar spine is unchanged. Grade 1 anterolisthesis of L3 on L4, L4 on L5, and L5 on S1, unchanged. No loss of vertebral body height. Loss of intervertebral disc height with endplate osteophytes at L3 through S1 where there is bilateral facet arthropathy. Atherosclerotic calcifications. XR/XR lumbar spine 2-3V IMPRESSION: Transitional anatomy with lumbarization of the S1 vertebral body is redemonstrated. Stable levocurvature of the lumbar spine with grade 1 anterolisthesis of L3 on L4, L4 on L5, and L5 on S1, unchanged. Multilevel degenerative disc disease and bilateral facet arthropathy, slightly progressed.
== END 2021-08-19 11:08 | disposition home or self-care (01) ==
LOC: HO.XRAY 11:07
PROVIDERS: PCP Internal Medicine; Visit Provider Nurse Practitioner Family
DX: M54.50 Low back pain, unspecified (principal)
CPT/HCPCS: 72100

== ENCOUNTER 2021-09-14 07:50 | Emergency (ER) | payer MEDICARE, OTHER, SELFPAY ==
[2021-09-14 07:59] VITALS: BP 135/66; PULSE 66; RESP 16; TEMP 36.6; O2SAT 99; BMI 26.3
[2021-09-14] MEDS: Lidocaine HCl Viscous 2 % 15 ML SOLUTION MUCOUS MEM (08:30)
--- NOTE | 2021-09-14 09:47 | ED_ITS ---
HPI - General Adult General Chief complaint: General Medical Stated complaint: throat & mouth pain Time Seen by Provider: 09/14/21 08:15 Source: patient Mode of arrival: ambulatory History of Present Illness HPI narrative: 81-year-old female with past medical history anxiety, depression, asthma, GERD, hyperlipidemia, hypertension, thrush, seizures, rheumatoid arthritis, presenting to the ED complaining of mild sore/sore throat x1. Admits to similar symptoms in the past. Reports pain with swallowing, and weight loss secondary to decreased p.o. intake from pain. Denies throat swelling, difficulty breathing, wheezing, SOB, fever. Reports occasionally takes prednisone. Denies inhalers or other change in medications Onset (ago): week(s) Related Data Home Medications Medication Instructions Recorded Confirmed acetaminophen 325 mg tablet 325 mg PO QID PRN 09/04/20 08/11/21 (Tylenol) calcium cit 250 mg-mag 40 mg-D3 1 tab PO DAILY 09/04/20 08/11/21 125 unit-zinc 3.75 mg-copy center specialist-kd tablet (Calcium Citrate Plus) fexofenadine 180 mg tablet 180 mg PO DAILY 09/04/20 08/11/21 (Marisa Allergy) fluorometholone acetate 0.1 % eye 2 drp OPHTHALMIC (EYE) Q1H 09/04/20 08/11/21 drops,suspension multivitamin 1 tab PO DAILY 09/04/20 08/11/21 prednisolone acetate 1 % eye 2 drp OPHTHALMIC (EYE) BID 09/04/20 08/11/21 drops,suspension vitamin B complex (B 1 tab PO DAILY 09/04/20 08/11/21 Complex-Vitamin B12) Previous Rx's Medication Instructions Recorded [facility] Bone Stimulator #1 ea 10/09/20 hydrochlorothiazide 25 mg tablet 25 mg PO DAILY #90 tab 10/22/20 lidocaine HCl 2 % mucosal solution 5 ml MUCOUS MEMBRANE QID PRN #100 01/01/21 (Lidocaine Viscous) ml dyclonine 2 mg lozenges 2 mg MUCOUS MEMBRANE Q2H PRN #18 ea 01/04/21 clotrimazole 10 mg abby 10 mg MUCOUS MEMBRANE TID 10 Days 01/05/21 #30 tab metoprolol succinate 25 mg 25 mg PO DAILY #90 tab 02/05/21 tablet,extended release 24 hr omeprazole 40 mg capsule,delayed 40 mg PO DAILY #90 cap 02/05/21 release montelukast 10 mg tablet 10 mg PO BEDTIME #90 tab 03/18/21 pravastatin 10 mg tablet 10 mg PO BEDTIME #90 tab 03/18/21 allopurinol 100 mg tablet 100 mg PO DAILY #90 tab 06/22/21 tramadol 50 mg tablet 50 mg PO BID #120 tab 06/22/21 ropinirole 3 mg tablet 3 mg PO DAILY #90 tab 07/05/21 methotrexate sodium 2.5 mg tablet 25 mg PO QWEEK #120 tab 07/06/21 diphenoxylate-atropine 2.5 1 tab PO BID PRN #10 tab 07/23/21 mg-0.025 mg tablet (Lomotil) meloxicam 15 mg tablet 15 mg PO DAILY 90 Days #90 tab 08/03/21 folic acid 1 mg tablet 1 mg PO DAILY #90 tab 08/11/21 lidocaine HCl 2 % mucosal solution 5 ml MUCOUS MEMBRANE QID PRN #100 09/14/21 (Lidocaine Viscous) ml nystatin 100,000 unit/mL oral 400,000 unit (4 mL) BUCCAL QID 7 09/14/21 suspension Days #112 ml Allergies Allergy/AdvReac Type Severity Reaction Status Date / Time alendronate sodium Allergy Severe ANAPHYLAXIS Verified 08/11/21 10:46 [From FOSAMAX] lisinopril [LISINOPRIL] Allergy Severe ANAPHYLAXIS, Verified 08/11/21 10:46 cough clarithromycin Allergy Intermediate CONFUSION, Verified 08/11/21 10:46 [CLARITHROMYCIN] sores on tongue, dry mouth simvastatin [SIMVASTATIN] Allergy Mild DRY Verified 08/11/21 10:46 THROAT, achy, confusion prednisone AdvReac Intermediate vomiting Verified 08/11/21 10:46 Review of Systems Review of Systems: Constitutional: No Fever, No Chills, No Fatigue, No Malaise ENT/Mouth: No Ear Pain, No Nasal Congestion, No Sinus Pain, No Hoarseness, + sore throat, No Rhinorrhea, + Swallowing Difficulty Eyes: No Eye Pain, No Swelling, No Redness, No Discharge Cardiovascular: No Chest Pain, No SOB, No Palpitations Respiratory: No Cough, No Sputum, No Dyspnea Gastrointestinal: No Nausea, No Vomiting, No Abdominal pain Genitourinary: No Dysuria, No Urinary Frequency, No Hematuria Musculoskeletal: No joint pain, No Myalgias, No Joint Swelling Skin: + Skin Lesions, No rash Neuro: No Weakness, No Numbness, No Dizziness, No Headache Yes all other systems are reviewed and are negative [facility] Past Medical History Attestation statement: The following information was validated with the patient. Medical History Anxiety and depression Asthma Fracture of 5th metatarsal Fracture of fifth metatarsal bone of right foot GERD (gastroesophageal reflux disease) Gout High cholesterol Hypercholesterolemia Hypergammaglobulinemia Hypertension Hypertension Lumbar degenerative disc disease Nondisplaced fracture of fifth metatarsal bone, left foot, subsequent encounter for fracture with nonunion Osteoarthritis Osteoporosis Overweight (BMI 25.0-29.9) Peripheral neuropathy Polymyalgia rheumatica Restless leg syndrome Rheumatoid arthritis Seizure disorder Seropositive rheumatoid arthritis Thrush, oral Surgical History Corneal transplant status H/O left knee surgery History of appendectomy History of arthroplasty of right hip History of cholecystectomy History of corneal transplant History of open reduction and internal fixation (ORIF) procedure History of total abdominal hysterectomy Family History Family History Father CVD (cardiovascular disease) Mother No problems noted. Social History Social History Housing: House Alcohol intake: current Alcohol intake frequency: a few times a month Alcohol type: wine Patient Tobacco Use Status: Never used Tobacco e-Cigarette/Vaping Use: Never Used Second Hand Smoke Exposure: No Advance Directives: No service: No Current occupational status: retired Physical Exam Vital Signs: Vital Signs: Last Vital Signs Temp 97.9 F 09/14/21 07:59 Pulse 66 09/14/21 07:59 Resp 16 09/14/21 07:59 BP 135/66 09/14/21 07:59 Pulse Ox 99 09/14/21 07:59 Body Mass Index 26.3 Const: General: cooperative and no acute distress Orientation/consciousness: patient oriented x3 Limitations: no limitations HENMT: Other: + mouth sores present to hard palate, lower and upper lip. Tongue with white film consistent with thrush. Uvula midline, no uvular edema, talking in complete sentences, no facial swelling, no drooling, no evidence of cellulitis/drainage or fluctuance. No evidence of INDUSTRIAL SERVICER. No submandibular lymphadenopathy Head: Yes normal to inspection Ears: hearing grossly normal bilaterally General nose exam: Normal external nose present Face and sinus: Yes normal facial exam Mouth: no drooling and no muffled voice Thr oat: Yes tonsils normal, Yes uvula midline, No peritonsillar mass and No uvular edema Eyes: General: appearance normal, both eyes and all related structures EOM: EOMs intact bilaterally Neck: Neck: Yes normal visual inspection, Yes no meningeal signs, Yes supple and No anterior neck swelling Resp: Effort & Inspection: normal respiratory effort, not labored and no stridor Auscultation: clear to auscultation bilaterally Cardio: Rate: regular rate Heart sounds: S1 normal heart sound present and S2 normal heart sound present Skin: Rashes: no rashes Wounds: no wounds Neuro: General: patient oriented x3 and no meningeal signs Gait exam (Neuro): Normal gait present Extrem: General: Yes normal to inspection Medical Decision Making MDM Narrative Medical decision making narrative: 81-year-old female with past medical history anxiety, depression, asthma, GERD, hyperlipidemia, hypertension, thrush, seizures, rheumatoid arthritis, presenting to the ED complaining of mild sore/sore throat x1. On exam vital signs stable, nontoxic, physical exam as above consistent with thrush and intraoral sores questionable for aphthous ulcers. No evidence of INDUSTRIAL SERVICER or strep pharyngitis Discussed with patient will treat for thrush & also with topical pain management, recommended ENT follow-up. Discussed worrisome signs and symptoms and strict return precautions, she verbalized understanding feel safe for discharge home at this time Discharge Plan Discharge Clinical Impression: Mouth sores Patient Disposition: Home, Self-Care Instructions: Canker Sores (ED) Additional Instructions: Nystatin with an antifungal solution will help treat thrush Lidocaine is a numbing agent, use as prescribed as needed for pain In addition recommended [id number] Cepacol lozenge and Chloraseptic spray will help with pain You can also practice warm salt water gargle several times a day Please take Tylenol and Motrin for pain/swelling Please follow-up with ENT specialist If her symptoms persist or worsen, your unable to eat or drink, pain becomes unbearable, he developed fever, oral swelling, difficulty breathing please return to the ED Prescriptions: New nystatin 100,000 unit/mL suspension 400,000 unit buccal QID 7 Days Qty: 112 RF: 0 lidocaine HCl [Lidocaine Viscous] 2 % solution 5 ml mucous membrane QID PRN (Reason: pain) Qty: 100 RF: 0 No Action hydrochlorothiazide 25 mg tablet 25 mg PO DAILY Qty: 90 RF: 3 metoprolol succinate 25 mg tablet extended release 24 hr 25 mg PO DAILY Qty: 90 RF: 3 omeprazole 40 mg capsule,delayed release(DR/EC) 40 mg PO DAILY Qty: 90 RF: 3 montelukast 10 mg tablet 10 mg PO BEDTIME Qty: 90 RF: 2 pravastatin 10 mg tablet 10 mg PO BEDTIME Qty: 90 RF: 2 tramadol 50 mg tablet 50 mg PO BID Qty: 120 RF: 3 allopurinol 100 mg tablet 100 mg PO DAILY Qty: 90 RF: 1 methotrexate sodium 2.5 mg tablet 25 mg PO QWEEK Qty: 120 RF: 0 diphenoxylate-atropine [Lomotil] 2.5-0.025 mg tablet 1 tab PO BID PRN (Reason: diarrhea) Qty: 10 RF: 1 meloxicam 15 mg tablet 15 mg PO DAILY 90 Days Qty: 90 RF: 2 Lidocaine Viscous 2 % solution 5 ml mucous membrane QID PRN (Reason: pain) Qty: 100 RF: 0 dyclonine 2 mg lozenge 2 mg mucous membrane Q2H PRN (Reason: mouth pain) Qty: 18 RF: 0 fexofenadine [Marisa Allergy] 180 mg tablet 180 mg PO DAILY RF: 0 acetaminophen [Tylenol] 325 mg tablet 325 mg PO QID PRNRF: 0 prednisolone acetate 1 % drops,suspension 2 drp ophthalmic (eye) BID RF: 0 fluorometholone acetate 0.1 % drops,suspension 2 drp ophthalmic (eye) Q1H RF: 0 multivitamin Tablet 1 tab PO DAILY RF: 0 vitamin B complex [B Complex-Vitamin B12] Tablet 1 tab PO DAILY RF: 0 Calcium Citrate Plus 132-78-062-3.75 tx-nu-epxk-mg tablet 1 tab PO DAILY RF: 0 clotrimazole 10 mg abby 10 mg mucous membrane TID 10 Days Qty: 30 RF: 0 ropinirole 3 mg tablet 3 mg PO DAILY Qty: 90 RF: 2 (DME) CMF Bone Stimulator See Rx Instructions .Route .MEDSUPPLY Qty: 1 RF: 0 folic acid 1 mg tablet 1 mg PO DAILY Qty: 90 RF: 2 Referrals: Singh June [Physician] - 2 days Interventions: ED Discharge Assessment Last Done: 09/14/21 08:53 Discharge Date/Time: 09/14/21 08:54
== END 2021-09-14 08:54 | disposition home or self-care (01) ==
PROVIDERS: Emergency Provider Emergency Medicine; PCP Internal Medicine
DX: K13.79 Other lesions of oral mucosa (principal); J02.9 Acute pharyngitis, unspecified; B37.0 Candidal stomatitis; I10 Essential (primary) hypertension; E78.5 Hyperlipidemia, unspecified; Z79.899 Other long term (current) drug therapy
CPT/HCPCS: 99283; 99284

== ENCOUNTER 2021-09-16 06:42 | Emergency (ER) | payer MEDICARE, OTHER, SELFPAY ==
[2021-09-16 07:10] VITALS: BP 165/72; PULSE 109; RESP 19; TEMP 36.6; O2SAT 97; BMI 26.2
--- NOTE | 2021-09-16 07:59 | ED_ITS ---
HPI - General Adult General Chief complaint: General Medical Stated complaint: throat pain Time Seen by Provider: 09/16/21 07:59 Source: patient Mode of arrival: ambulatory Limitations: no limitations History of Present Illness HPI narrative: patient seen recently for thrush. She is not on new antibiotics, no steroids, but is on chemotherapy for rheumatoid arthritis. she was seen 2 days ago and placed on nystatin gargle and swallow with lidocaine. Now with ulcerations to lips and feels her throat getting worse. Patient had noticed 2 weeks ago that she was getting a sore throat. Severity: moderate Quality: burning Pain Consistency: constant Associated symptoms: denies other symptoms Related Data Home Medications Medication Instructions Recorded Confirmed acetaminophen 325 mg tablet 325 mg PO QID PRN 09/04/20 08/11/21 (Tylenol) calcium cit 250 mg-mag 40 mg-D3 1 tab PO DAILY 09/04/20 08/11/21 125 unit-zinc 3.75 mg-certified endoscopy technician-kd tablet (Calcium Citrate Plus) fexofenadine 180 mg tablet 180 mg PO DAILY 09/04/20 08/11/21 (Marisa Allergy) fluorometholone acetate 0.1 % eye 2 drp OPHTHALMIC (EYE) Q1H 09/04/20 08/11/21 drops,suspension multivitamin 1 tab PO DAILY 09/04/20 08/11/21 prednisolone acetate 1 % eye 2 drp OPHTHALMIC (EYE) BID 09/04/20 08/11/21 drops,suspension vitamin B complex (B 1 tab PO DAILY 09/04/20 08/11/21 Complex-Vitamin B12) Previous Rx's Medication Instructions Recorded CMF Bone Stimulator #1 ea 10/09/20 hydrochlorothiazide 25 mg tablet 25 mg PO DAILY #90 tab 10/22/20 lidocaine HCl 2 % mucosal solution 5 ml MUCOUS MEMBRANE QID PRN #100 01/01/21 (Lidocaine Viscous) ml dyclonine 2 mg lozenges 2 mg MUCOUS MEMBRANE Q2H PRN #18 ea 01/04/21 clotrimazole 10 mg abby 10 mg MUCOUS MEMBRANE TID 10 Days 01/05/21 #30 tab metoprolol succinate 25 mg 25 mg PO DAILY #90 tab 02/05/21 tablet,extended release 24 hr omeprazole 40 mg capsule,delayed 40 mg PO DAILY #90 cap 02/05/21 release montelukast 10 mg tablet 10 mg PO BEDTIME #90 tab 03/18/21 pravastatin 10 mg tablet 10 mg PO BEDTIME #90 tab 03/18/21 allopurinol 100 mg tablet 100 mg PO DAILY #90 tab 06/22/21 tramadol 50 mg tablet 50 mg PO BID #120 tab 06/22/21 ropinirole 3 mg tablet 3 mg PO DAILY #90 tab 07/05/21 methotrexate sodium 2.5 mg tablet 25 mg PO QWEEK #120 tab 07/06/21 diphenoxylate-atropine 2.5 1 tab PO BID PRN #10 tab 07/23/21 mg-0.025 mg tablet (Lomotil) meloxicam 15 mg tablet 15 mg PO DAILY 90 Days #90 tab 08/03/21 folic acid 1 mg tablet 1 mg PO DAILY #90 tab 08/11/21 lidocaine HCl 2 % mucosal solution 5 ml MUCOUS MEMBRANE QID PRN #100 09/14/21 (Lidocaine Viscous) ml nystatin 100,000 unit/mL oral 400,000 unit (4 mL) BUCCAL QID 7 09/14/21 suspension Days #112 ml fluconazole 150 mg tablet 150 mg PO DAILY #1 tab 09/16/21 (Diflucan) Allergies Allergy/AdvReac Type Severity Reaction Status Date / Time alendronate sodium Allergy Severe ANAPHYLAXIS Verified 08/11/21 10:46 [From FOSAMAX] lisinopril [LISINOPRIL] Allergy Severe ANAPHYLAXIS, Verified 08/11/21 10:46 cough clarithromycin Allergy Intermediate CONFUSION, Verified 08/11/21 10:46 [CLARITHROMYCIN] sores on tongue, dry mouth simvastatin [SIMVASTATIN] Allergy Mild DRY Verified 08/11/21 10:46 THROAT, achy, confusion prednisone AdvReac Intermediate vomiting Verified 08/11/21 10:46 Review of Systems Constitutional: Constitutional: Reports no additional constitutional comp laints Eyes: Eyes: Reports no additional eye complaints ENT: Denies dizziness Cardiovascular: Cardiovascular: Reports no additional cardiovascular complaints Respiratory: Respiratory: Reports as per HPI Gastrointestinal: Gastrointestinal: Reports no additional gastrointestinal complaints Genitourinary: Genitourinary: Reports no additional female genitourinary complaints Musculoskeletal: Musculoskeletal: Reports no additional musculoskeletal c omplaints Integumentary/Breasts: Skin/Breast: Denies rash Neurologic: Reports system reviewed and no additional complaints, except as documented, Denies dizziness and Denies Sensory deficit (Neuro) Psychiatric: Psychiatric: Denies anxiety [facility] Past Medical History Medical History Anxiety and depression Asthma Fracture of 5th metatarsal Fracture of fifth metatarsal bone of right foot GERD (gastroesophageal reflux disease) Gout High cholesterol Hypercholesterolemia Hypergammaglobulinemia Hypertension Hypertension Lumbar degenerative disc disease Nondisplaced fracture of fifth metatarsal bone, left foot, subsequent encounter for fracture with nonunion Osteoarthritis Osteoporosis Overweight (BMI 25.0-29.9) Peripheral neuropathy Polymyalgia rheumatica Restless leg syndrome Rheumatoid arthritis Seizure disorder Seropositive rheumatoid arthritis Thrush, oral Surgical History Corneal transplant status H/O left knee surgery History of appendectomy History of arthroplasty of right hip History of cholecystectomy History of corneal transplant History of open reduction and internal fixation (ORIF) procedure History of total abdominal hysterectomy Family History Family History Father CVD (cardiovascular disease) Mother No problems noted. Social History Social History Housing: House Alcohol intake: current Alcohol intake frequency: a few times a month Alcohol type: wine Patient Tobacco Use Status: Never used Tobacco e-Cigarette/Vaping Use: Never Used Second Hand Smoke Exposure: No Advance Directives: No Advance Directives Information Provided: Yes service: No Current occupational status: retired Physical Exam Vital Signs: Vital Signs: Last Vital Signs Temp 98.6 F 09/16/21 09:31 Pulse 77 09/16/21 09:31 Resp 19 09/16/21 07:10 BP 144/70 H 09/16/21 09:31 Pulse Ox 96 09/16/21 09:31 Body Mass Index 26.2 Const: General: healthy appearing Nutritional Appearance: average body habitus Orientation/consciousness: oriented to person and patient oriented x3 Limitations: no limitations HENMT: Other: patient with thrush to lips and tongue with lips with scab and bleeding, pharynx with diffuse thrush Ears: external ears normal General nose exam: Normal external nose present Mouth: Normal oral and palatal mucosa present and oropharynx normal Throat: Yes posterior oropharynx normal Eyes: General: appearance normal, both eyes and all related structures Neck: Other: supple Neck: Yes normal visual inspection Chest: Chest palpation & inspection: normal inspection of the chest Resp: Auscultation: clear to auscultation bilaterally Cardio: Jugular venous distension: no JVD Rate: regular rate Rhythm: regular rhythm Heart sounds: S1 normal heart sound present and S2 normal heart sound present GI: Inspection: Yes normal to inspection Palpation (GI): Soft to palpation, nontender and No hepatosplenomegaly present Auscultation: normal bowel sounds : General: Yes no CVA tenderness Back/Spine/Pelvis: Back: no CVA tenderness Skin: General skin exam: no rashes or lesions noted Neuro: General: oriented to person and patient oriented x3 Cranial nerves: Yes CN's II-XII intact bilaterally Motor exam (neuro): 5/5 motor strength present throughout Sensory Exam: No Sensory deficit (Neuro) Extrem: General: Yes normal to inspection Psych: Appearance: grossly normal Course Reevaluation(s) Reevaluation #1: patient with thrush outbreak to oral pharynx, lips and tongue secondary to rheumatoid treatments will start difulcan Time: 08:15 Medical Decision Making Lab Data Labs: Lab Results 09/16/21 Range/Units 08:53 POC Glucose 86 (60-115) mg/dL Discharge Plan Discharge Clinical Impression: Thrush, oral Patient Disposition: Home, Self-Care Instructions: Oral Candidiasis (ED), Oral Mucositis (ED) Prescriptions: New fluconazole [Diflucan] 150 mg tablet 150 mg PO DAILY Qty: 1 RF: 0 No Action hydrochlorothiazide 25 mg tablet 25 mg PO DAILY Qty: 90 RF: 3 metoprolol succinate 25 mg tablet extended release 24 hr 25 mg PO DAILY Qty: 90 RF: 3 omeprazole 40 mg capsule,delayed release(DR/EC) 40 mg PO DAILY Qty: 90 RF: 3 montelukast 10 mg tablet 10 mg PO BEDTIME Qty: 90 RF: 2 pravastatin 10 mg tablet 10 mg PO BEDTIME Qty: 90 RF: 2 tramadol 50 mg tablet 50 mg PO BID Qty: 120 RF: 3 allopurinol 100 mg tablet 100 mg PO DAILY Qty: 90 RF: 1 methotrexate sodium 2.5 mg tablet 25 mg PO QWEEK Qty: 120 RF: 0 diphenoxylate-atropine [Lomotil] 2.5-0.025 mg tablet 1 tab PO BID PRN (Reason: diarrhea) Qty: 10 RF: 1 meloxicam 15 mg tablet 15 mg PO DAILY 90 Days Qty: 90 RF: 2 Lidocaine Viscous 2 % solution 5 ml mucous membrane QID PRN (Reason: pain) Qty: 100 RF: 0 dyclonine 2 mg lozenge 2 mg mucous membrane Q2H PRN (Reason: mouth pain) Qty: 18 RF: 0 nystatin 100,000 unit/mL suspension 400,000 unit buccal QID 7 Days Qty: 112 RF: 0 lidocaine HCl [Lidocaine Viscous] 2 % solution 5 ml mucous membrane QID PRN (Reason: pain) Qty: 100 RF: 0 fexofenadine [Marisa Allergy] 180 mg tablet 180 mg PO DAILY RF: 0 acetaminophen [Tylenol] 325 mg tablet 325 mg PO QID PRNRF: 0 prednisolone acetate 1 % drops,suspension 2 drp ophthalmic (eye) BID RF: 0 fluorometholone acetate 0.1 % drops,suspension 2 drp ophthalmic (eye) Q1H RF: 0 multivitamin Tablet 1 tab PO DAILY RF: 0 vitamin B complex [B Complex-Vitamin B12] Tablet 1 tab PO DAILY RF: 0 Calcium Citrate Plus [id number] ob-jb-mlar-mg tablet 1 tab PO DAILY RF: 0 clotrimazole 10 mg abby 10 mg mucous membrane TID 10 Days Qty: 30 RF: 0 ropinirole 3 mg tablet 3 mg PO DAILY Qty: 90 RF: 2 (DME) CMF Bone Stimulator See Rx Instructions .Route .MEDSUPPLY Qty: 1 RF: 0 folic acid 1 mg tablet 1 mg PO DAILY Qty: 90 RF: 2 Referrals: Po,Renetta Seo MD [Primary Care Provider] - 1 week
[2021-09-16] MEDS: Fluconazole 150 MG TABLET PO (08:55)
[2021-09-16 09:11] LABS: Glucose, Whole Blood 86 mg/dL (60-115)
[2021-09-16 09:31] VITALS: BP 144/70; PULSE 77; TEMP 37; O2SAT 96
== END 2021-09-16 09:52 | disposition home or self-care (01) ==
PROVIDERS: Emergency Provider Emergency Medicine; PCP Internal Medicine
DX: B37.0 Candidal stomatitis (principal); I10 Essential (primary) hypertension; M06.9 Rheumatoid arthritis, unspecified; Z79.899 Other long term (current) drug therapy
CPT/HCPCS: 82947; 99283

== ENCOUNTER → 2021-09-21 10:59 | Outpatient (BNVA) | payer MEDICARE, OTHER, SELFPAY | PROVIDERS: PCP Internal Medicine; Visit Provider Nurse Practitioner Family | DX: M05.70 Rheumatoid arthritis with rheumatoid factor of unspecified site without organ or systems involvement (principal); M81.0 Age-related osteoporosis without current pathological fracture; M1A.0710 Idiopathic chronic gout, right ankle and foot, without tophus (tophi); K13.0 Diseases of lips; K12.1 Other forms of stomatitis; I10 Essential (primary) hypertension; E78.00 Pure hypercholesterolemia, unspecified; F41.8 Other specified anxiety disorders; Z79.83 Long term (current) use of bisphosphonates | CPT/HCPCS: 99212 ==

== ENCOUNTER 2021-10-13 14:18 | Outpatient (REF) | payer MEDICARE, OTHER, SELFPAY ==
[2021-10-13 15:37] LABS: MANUAL DIFF FLAG NO
[2021-10-13 15:47] LABS: Basophils Absolute Auto 0.1 X10*3/uL (0.0-0.2); Basophils Percent Auto 0.7 % (0-2); Eosinophils Absolute Auto 0.1 X10*3/uL (0.0-0.4); Eosinophils Percent Auto 0.7 % (0-4); Hematocrit 36.8 % (37.0-47.0); Hemoglobin 11.7 g/dl (12.0-16.0); Imm Gran Abs Auto 0.15 X10*3/uL (0.00-0.03); Imm Gran Pct Auto 0.9 % (0.0-0.4); Lymphocytes Absolute Auto 2.1 X10*3/uL (1.2-4.9); Lymphocytes Percent Auto 13.2 % (20-40); Mean Corpuscular HGB Conc 31.8 g/dl (31.0-35.0); Mean Corpuscular Hemoglobin 30.3 pg (27.0-33.0); Mean Corpuscular Volume 95.3 fL (80.0-98.0); Mean Platelet Volume 10.4 fL (9.4-12.3); Monocytes Absolute Auto 1.1 X10*3/uL (0.1-1.2); Neutrophils Absolute Auto 12.5 x10*3/uL (2.0-8.3); Neutrophils Percent Auto 77.5 % (45-73); Platelet Count 248 X10*3/uL (160-400); Red Blood Count 3.86 X10*6/uL (4.20-5.50); Red Cell Distribution Width 14.4 % (11.0-16.0); White Blood Count 16.1 X10*3/uL (4.8-10.8)
[2021-10-13 16:08] LABS: Alanine Aminotransferase 17 U/L (0-31); Albumin Level 3.7 g/dL (3.5-5.0); Alkaline Phosphatase 90 U/L (39-117); Anion Gap 13 (12-20); Aspartate Amino Transferase 25 U/L (5-31); Bilirubin Total 0.4 mg/dL (0.0-1.0); Blood Urea Nitrogen 15 mg/dL (9-16); C Reactive Protein 15.57 mg/dL (< or = 0.50); Calcium 9.7 mg/dL (8.4-10.2); Carbon Dioxide 25 mmol/L (22-29); Chloride 104 mmol/L (96-108); Estimated Glomerular Filt Rate > 60; Glucose Random 120 mg/dL (60-115); Potassium 4.2 mmol/L (3.3-5.1); Sodium 138 mmol/L (135-145); Total Protein 7.3 g/dL (6.5-8.0)
[2021-10-13 16:24] LABS: Erythrocyte Sedimentation Rate 85 MM/HR (0-20)
[2021-10-13 16:29] LABS: Thyroid Stimulating Hormone 0.95 uIU/mL (0.32-4.0)
[2021-10-13 16:42] LABS: Folate > 20.0 ng/mL (> or = 4.0); Vitamin B12 538 pg/mL (200-900)
== END 2021-10-13 14:19 | disposition home or self-care (01) ==
LOC: HO.LAB 14:18
PROVIDERS: PCP Internal Medicine; Visit Provider Nurse Practitioner Family
DX: Z13.89 Encounter for screening for other disorder (principal)
CPT/HCPCS: 36415; 80053; 82607; 82746; 84439; 84443; 84550; 85025; 85652; 86140; 99212

== ENCOUNTER 2021-10-13 18:35 | Emergency (ER) | payer MEDICARE, OTHER, SELFPAY ==
--- NOTE | ~2021-10-13 | XR_ITS ---
EXAMINATION: XR CHEST CLINICAL INFORMATION: Covid? COMPARISON: Chest x-ray 12/21/2019 TECHNIQUE: Frontal portable view of the chest was obtained. 9:13 PM FINDINGS: Lungs are clear. No pulmonary vascular congestion. There is no pleural effusion. The heart size is normal. The cardiac and mediastinal contours are normal. There are calcifications of the thoracic aorta. No acute osseous abnormality. XR/XR chest 1V IMPRESSION: Unremarkable examination.
[2021-10-13 19:13] VITALS: BP 144/102; PULSE 106; RESP 18; TEMP 37.1; O2SAT 97; BMI 25.8
[2021-10-13 19:43] LABS: MANUAL DIFF FLAG NO
[2021-10-13 19:44] LABS: Basophils Absolute Auto 0.1 X10*3/uL (0.0-0.2); Basophils Percent Auto 0.6 % (0-2); Eosinophils Absolute Auto 0.1 X10*3/uL (0.0-0.4); Eosinophils Percent Auto 0.8 % (0-4); Hematocrit 36.4 % (37.0-47.0); Hemoglobin 11.9 g/dl (12.0-16.0); Imm Gran Abs Auto 0.22 X10*3/uL (0.00-0.03); Imm Gran Pct Auto 1.4 % (0.0-0.4); Lymphocytes Absolute Auto 2.3 X10*3/uL (1.2-4.9); Lymphocytes Percent Auto 14.8 % (20-40); Mean Corpuscular HGB Conc 32.7 g/dl (31.0-35.0); Mean Corpuscular Hemoglobin 31.2 pg (27.0-33.0); Mean Corpuscular Volume 95.3 fL (80.0-98.0); Monocytes Percent Auto 6.2 % (2-11); Neutrophils Absolute Auto 11.7 x10*3/uL (2.0-8.3); Neutrophils Percent Auto 76.2 % (45-73); Platelet Count 236 X10*3/uL (160-400); Red Blood Count 3.82 X10*6/uL (4.20-5.50); Red Cell Distribution Width 14.5 % (11.0-16.0); White Blood Count 15.4 X10*3/uL (4.8-10.8)
[2021-10-13 19:59] LABS: Anion Gap 15 (12-20); Blood Urea Nitrogen 15 mg/dL (9-16); Calcium 9.3 mg/dL (8.4-10.2); Carbon Dioxide 23 mmol/L (22-29); Chloride 103 mmol/L (96-108); Creatinine Clr Calc Pharmacy 54.8; Estimated Glomerular Filt Rate > 60; Glucose Random 128 mg/dL (60-115); Potassium 3.7 mmol/L (3.3-5.1); Sodium 137 mmol/L (135-145)
--- NOTE | 2021-10-13 20:28 | ED.GENADULT ---
HPI - General Adult General Chief complaint: Recheck/Abnormal Lab/Rx Stated complaint: abnormal lab results Time Seen by Provider: 10/13/21 20:27 Source: patient Mode of arrival: ambulatory Limitations: no limitations History of Present Illness HPI narrative: Patient history of rheumatoid arthritis use of methotrexate which was stopped 2 weeks ago complaining of pain in upper back area for last couple of days no fever no cough seen by nurse practitioner yesterday did the labs which showed elevated WBC count sent the patient here for further evaluation. The patient had some oral lesions which was treated Nystatin, no urinary complaints no chills no fever patient already been vaccinated against COVID has not received a booster dose yet. Labs earlier today showed WBC count of 16.1 with sed rate of 85 which is significantly elevated from the previous sed rate of 28 in 07/27 possibility of PMR wrist by looping inspector and will be calling her tomorrow patient came in just to be sure about no other infection as WBC count elevated Related Data Home Medications Medication Instructions Recorded Confirmed calcium cit 250 mg-mag 40 mg-D3 1 tab PO DAILY 09/04/20 10/13/21 125 unit-zinc 3.75 mg-copy coordinator-kd tablet (Calcium Citrate Plus) fexofenadine 180 mg tablet 180 mg PO DAILY 09/04/20 10/13/21 (Marisa Allergy) multivitamin 1 tab PO DAILY 09/04/20 10/13/21 prednisolone acetate 1 % eye 2 drp OPHTHALMIC (EYE) BID 09/04/20 10/13/21 drops,suspension vitamin B complex (B 1 tab PO DAILY 09/04/20 10/13/21 Complex-Vitamin B12) lamotrigine 100 mg tablet 100 mg PO BID 10/05/21 10/13/21 (Lamictal) clotrimazole 10 mg abby 10 mg MUCOUS MEMBRANE TID 10/13/21 10/13/21 fluconazole 150 mg tablet 150 mg PO DAILY 10/13/21 10/13/21 Previous Rx's Medication Instructions Recorded [facility] Bone Stimulator #1 ea 10/09/20 clotrimazole 10 mg abby 10 mg MUCOUS MEMBRANE TID 10 Days 01/05/21 #30 tab metoprolol succinate 25 mg 25 mg PO DAILY #90 tab 02/05/21 tablet,extended release 24 hr omeprazole 40 mg capsule,delayed 40 mg PO DAILY #90 cap 02/05/21 release montelukast 10 mg tablet 10 mg PO BEDTIME #90 tab 03/18/21 pravastatin 10 mg tablet 10 mg PO BEDTIME #90 tab 03/18/21 allopurinol 100 mg tablet 100 mg PO DAILY #90 tab 06/22/21 tramadol 50 mg tablet 50 mg PO BID #120 tab 06/22/21 ropinirole 3 mg tablet 3 mg PO DAILY #90 tab 07/05/21 folic acid 1 mg tablet 1 mg PO DAILY #90 tab 08/11/21 fluconazole 150 mg tablet 150 mg PO DAILY #1 tab 09/16/21 (Diflucan) oxycodone 5 mg tablet 5 mg PO BID PRN #30 tab 09/21/21 hydrochlorothiazide 25 mg tablet 25 mg PO DAILY #90 tab 10/11/21 cefuroxime axetil 250 mg tablet 250 mg PO BID 7 Days #14 tab 10/13/21 Allergies Allergy/AdvReac Type Severity Reaction Status Date / Time alendronate sodium Allergy Severe ANAPHYLAXIS Verified 10/13/21 19:13 [From FOSAMAX] lisinopril [LISINOPRIL] Allergy Severe ANAPHYLAXIS, Verified 10/13/21 19:13 cough clarithromycin Allergy Intermediate CONFUSION, Verified 10/13/21 19:13 [CLARITHROMYCIN] sores on tongue, dry mouth simvastatin [SIMVASTATIN] Allergy Mild DRY Verified 10/13/21 19:13 THROAT, achy, confusion prednisone AdvReac Intermediate vomiting Verified 10/13/21 19:13 Review of Systems Review of Systems: Yes all other systems are reviewed and are negative PMFSH Past Medical History Medical History Anxiety and depression Asthma Fracture of 5th metatarsal Fracture of fifth metatarsal bone of right foot GERD (gastroesophageal reflux disease) Gout High cholesterol Hypercholesterolemia Hypergammaglobulinemia Hypertension Hypertension Lumbar degenerative disc disease Nondisplaced fracture of fifth metatarsal bone, left foot, subsequent encounter for fracture with nonunion Osteoarthritis Osteoporosis Overweight (BMI 25.0-29.9) Peripheral neuropathy Polymyalgia rheumatica Restless leg syndrome Rheumatoid arthritis Seizure disorder Seropositive rheumatoid arthritis Thrush, oral Surgical History Corneal transplant status H/O left knee surgery History of appendectomy History of arthroplasty of right hip History of cholecystectomy History of corneal transplant History of open reduction and internal fixation (ORIF) procedure History of total abdominal hysterectomy Family History Family History Father CVD (cardiovascular disease) Mother No problems noted. Social History Social History Housing: House Alcohol intake: current Alcohol intake frequency: a few times a month Alcohol type: wine Patient Tobacco Use Status: Never used Tobacco e-Cigarette/Vaping Use: Never Used Second Hand Smoke Exposure: No Advance Directives: No Advance Directives Information Provided: Yes service: No Current occupational status: retired Physical Exam Vital Signs: Vital Signs: Last Vital Signs Temp 98.8 F 10/13/21 19:13 Pulse 92 10/13/21 22:23 Resp 20 10/13/21 22:23 BP 144/75 H 10/13/21 22:23 Pulse Ox 97 10/13/21 22:23 BMI result Body Mass Index 25.8 Appearance: Alert. Oriented X3. No acute distress. Eyes: No pallor or icterus ENT: Pharynx normal. Oral Mucosa moist Neck: Normal inspection. Neck supple. CVS: Normal heart rate and rhythm. Pulses normal. Respiratory: No respiratory distress. Equal air entry bilateral, no wheezing/rales/rhonchi Abdomen: Soft and nontender. Bowel sounds are present, no mass palpable, no CVA tenderness Skin: Skin warm and dry. Normal skin color. Normal skin turgor. Extremities: No lower extremity edema. No calf tenderness back: Diffuse muscular tenderness in upper back area Neuro: Oriented X 3. No motor deficit. No sensory deficit.No cerebellar signs , cranial nerves II-XII intact Medical Decision Making MDM Narrative Medical decision making narrative: Patient with upper back pain with elevated sed rate likely polymyalgia rheumatica has a elevated WBC count etiology not very clear heads few WBCs in the urine may be UTI but patient is symptomatic will discharge patient home on Ceftin advised to follow with looping inspector tomorrow as planned for possible starting on prednisone for PMR. Patient COVID testing chest x-ray negative Lab Data Lab results reviewed: Yes I reviewed the patient's lab results. Result diagrams: 10/13/21 19:35 10/13/21 19:35 Labs: Lab Results 10/13/21 10/13/21 10/13/21 Range/Units 19:35 19:35 21:05 WBC 15.4 H (4.8-10.8) X10*3/uL RBC 3.82 L (4.20-5.50) X10*6/uL Hgb 11.9 L (12.0-16.0) g/dl Hct 36.4 L (37.0-47.0) % MCV 95.3 (80.0-98.0) fL MCH 31.2 (27.0-33.0) pg MCHC 32.7 (31.0-35.0) g/dl RDW 14.5 (11.0-16.0) % Plt Count 236 (160-400) X10*3/uL MPV 10.0 (9.4-12.3) fL Immature Gran % (Auto) 1.4 H (0.0-0.4) % Neut % (Auto) 76.2 H (45-73) % Lymph % (Auto) 14.8 L (20-40) % [place] % (Auto) 6.2 (2-11) % Eos % (Auto) 0.8 (0-4) % Baso % (Auto) 0.6 (0-2) % Lymph # (Auto) 2.3 (1.2-4.9) X10*3/uL [place] # (Auto) 1.0 (0.1-1.2) X10*3/uL Eos # (Auto) 0.1 (0.0-0.4) X10*3/uL Baso # (Auto) 0.1 (0.0-0.2) X10*3/uL Abs Immat Gran (auto) 0.22 H (0.00-0.03) X10*3/uL Absolute Neuts (auto) 11.7 H (2.0-8.3) x10*3/uL Absolute Nucleated RBC 0.000 (0.0-0.012) X10*3/uL Nucleated RBC % (auto) 0.0 (0.0-0.2) /100WBC Sodium 137 (135-145) mmol/L Potassium 3.7 (3.3-5.1) mmol/L Chloride 103 (96-108) mmol/L Carbon Dioxide 23 (22-29) mmol/L Anion Gap 15 (12-20) BUN 15 (9-16) mg/dL Creatinine 0.82 (0.5-1.4) mg/dL Estim Creat Clear Calc 54.8 Estimated GFR > 60 Random Glucose 128 H (60-115) mg/dL Calcium 9.3 (8.4-10.2) mg/dL Urine Color Urine Appearance Urine pH (5.0-8.0) Ur Specific [place] (1.005-1.025) Urine Protein (NEG-TRACE) MG/DL Urine Glucose (UA) (NEG) MG/DL Urine Ketones (NEG) MG/DL Urine Blood (NEG) Urine Nitrite (NEG) Ur Leukocyte Esterase (NEG) Urine RBC (0) /HPF Urine WBC (0-4) /HPF Ur Squamous Epith Cells /LPF Ur Renal Epithelial Cell /LPF Urine Bacteria /LPF Urine Mucus /LPF COVID-19 (SHAD) Negative (Negative) COVID-19 Clin Com See Note 10/13/21 Range/Units 21:41 WBC (4.8-10.8) X10*3/uL RBC (4.20-5.50) X10*6/uL Hgb (12.0-16.0) g/dl Hct (37.0-47.0) % MCV (80.0-98.0) fL MCH (27.0-33.0) pg MCHC (31.0-35.0) g/dl RDW (11.0-16.0) % Plt Count (160-400) X10*3/uL MPV (9.4-12.3) fL Immature Gran % (Auto) (0.0-0.4) % Neut % (Auto) (45-73) % Lymph % (Auto) (20-40) % [place] % (Auto) (2-11) % Eos % (Auto) (0-4) % Baso % (Auto) (0-2) % Lymph # (Auto) (1.2-4.9) X10*3/uL [place] # (Auto) (0.1-1.2) X10*3/uL Eos # (Auto) (0.0-0.4) X10*3/uL Baso # (Auto) (0.0-0.2) X10*3/uL Abs Immat Gran (auto) (0.00-0.03) X10*3/uL Absolute Neuts (auto) (2.0-8.3) x10*3/uL Absolute Nucleated RBC (0.0-0.012) X10*3/uL Nucleated RBC % (auto) (0.0-0.2) /100WBC Sodium (135-145) mmol/L Potassium (3.3-5.1) mmol/L Chloride (96-108) mmol/L Carbon Dioxide (22-29) mmol/L Anion Gap (12-20) BUN (9-16) mg/dL Creatinine (0.5-1.4) mg/dL Estim Creat Clear Calc Estimated GFR Random Glucose (60-115) mg/dL Calcium (8.4-10.2) mg/dL Urine Color YELLOW Urine Appearance HAZY Urine pH 6.0 (5.0-8.0) Ur Specific [place] >= 1.030 H (1.005-1.025) Urine Protein NEG (NEG-TRACE) MG/DL Urine Glucose (UA) NEG (NEG) MG/DL Urine Ketones NEG (NEG) MG/DL Urine Blood NEG (NEG) Urine Nitrite NEG (NEG) Ur Leukocyte Esterase TRACE H (NEG) Urine RBC 0 (0) /HPF Urine WBC 5-9 H (0-4) /HPF Ur Squamous Epith Cells 2+ /LPF Ur Renal Epithelial Cell 1+ /LPF Urine Bacteria 1+ /LPF Urine Mucus 3+ /LPF COVID-19 (SHAD) (Negative) COVID-19 Clin Com Discharge Plan Discharge Clinical Impression: Musculoskeletal back pain, PMR (polymyalgia rheumatica), UTI (urinary tract infection) Patient Disposition: Home, Self-Care Instructions: Polymyalgia Rheumatica (ED), Urinary Tract Infection in Older Adults (ED) Additional Instructions: Take antibiotic as prescribed for mild urinary tract infection The COVID test is negative chest x-ray normal Will likely have polymyalgia rheumatica follow with your looping inspector tomorrow as scheduled Prescriptions: New cefuroxime axetil 250 mg tablet 250 mg PO BID 7 Days Qty: 14 RF: 0 No Action metoprolol succinate 25 mg tablet extended release 24 hr 25 mg PO DAILY Qty: 90 RF: 3 omeprazole 40 mg capsule,delayed release(DR/EC) 40 mg PO DAILY Qty: 90 RF: 3 montelukast 10 mg tablet 10 mg PO BEDTIME Qty: 90 RF: 2 pravastatin 10 mg tablet 10 mg PO BEDTIME Qty: 90 RF: 2 tramadol 50 mg tablet 50 mg PO BID Qty: 120 RF: 3 allopurinol 100 mg tablet 100 mg PO DAILY Qty: 90 RF: 1 hydrochlorothiazide 25 mg tablet 25 mg PO DAILY Qty: 90 RF: 3 fluconazole [Diflucan] 150 mg tablet 150 mg PO DAILY Qty: 1 RF: 0 fexofenadine [Marisa Allergy] 180 mg tablet 180 mg PO DAILY RF: 0 prednisolone acetate 1 % drops,suspension 2 drp ophthalmic (eye) BID RF: 0 multivitamin Tablet 1 tab PO DAILY RF: 0 vitamin B complex [B Complex-Vitamin B12] Tablet 1 tab PO DAILY RF: 0 Calcium Citrate Plus [id number] sn-ys-ylkg-mg tablet 1 tab PO DAILY RF: 0 clotrimazole 10 mg abby 10 mg mucous membrane TID 10 Days Qty: 30 RF: 0 ropinirole 3 mg tablet 3 mg PO DAILY Qty: 90 RF: 2 lamotrigine [Lamictal] 100 mg tablet 100 mg PO BID RF: 0 oxycodone 5 mg tablet 5 mg PO BID PRN (Reason: pain) Qty: 30 RF: 0 (DME) [facility] Bone Stimulator See Rx Instructions .Route .MEDSUPPLY Qty: 1 RF: 0 folic acid 1 mg tablet 1 mg PO DAILY Qty: 90 RF: 2 clotrimazole 10 mg abby 10 mg mucous membrane TID RF: 0 fluconazole 150 mg tablet 150 mg PO DAILY RF: 0 Interventions: ED Discharge Assessment Last Done: 10/13/21 22:31 Discharge Date/Time: 10/13/21 22:33
[2021-10-13 21:32] LABS: COVID-19 Test Negative (Negative)
[2021-10-13 21:49] LABS: Appearance Urine HAZY; Color Urine YELLOW; Glucose Urine UA NEG (NEG); Leukocyte Esterase Urine TRACE (NEG); Nitrite Urine NEG (NEG); Specific Gravity - Urine >= 1.030 (1.005-1.025); UACC Culture Trigger YES; Urine Blood NEG (NEG); Urine Ketones NEG (NEG); Urine Protein NEG (NEG-TRACE)
[2021-10-13 21:55] LABS: Mucus Urine 3+ /LPF; Squamous Epithelial Cell Urine 2+ /LPF
[2021-10-13 21:56] LABS: Bacteria Urine 1+ /LPF; RBC Urine 0 /HPF (0); Renal Epithelial Cells Urine 1+ /LPF
[2021-10-13 22:23] VITALS: BP 144/75; PULSE 92; RESP 20; O2SAT 97
== END 2021-10-13 22:33 | disposition home or self-care (01) ==
PROVIDERS: Emergency Provider Internal Medicine; PCP Internal Medicine
DX: N39.0 Urinary tract infection, site not specified (principal); M54.6 Pain in thoracic spine; M35.3 Polymyalgia rheumatica; M05.9 Rheumatoid arthritis with rheumatoid factor, unspecified; M81.0 Age-related osteoporosis without current pathological fracture; M1A.0710 Idiopathic chronic gout, right ankle and foot, without tophus (tophi); I10 Essential (primary) hypertension; Z79.899 Other long term (current) drug therapy; Z20.822 Contact with and (suspected) exposure to COVID-19
CPT/HCPCS: 36415; 71045; 80048; 80053; 81001; 82607; 82746; 84439; 84443; 84550; 85025; 85652; 86140; 87086; 87635; 99212; 99283; 99284

== ENCOUNTER → 2021-10-18 14:25 | Outpatient (BNVA) | payer MEDICARE, OTHER, SELFPAY | PROVIDERS: PCP Internal Medicine; Visit Provider Nurse Practitioner Family | DX: M05.9 Rheumatoid arthritis with rheumatoid factor, unspecified (principal); M81.0 Age-related osteoporosis without current pathological fracture; M1A.0710 Idiopathic chronic gout, right ankle and foot, without tophus (tophi) | CPT/HCPCS: 99212 ==

== ENCOUNTER → 2021-11-01 14:58 | Outpatient (BNVA) | payer MEDICARE, OTHER, SELFPAY | PROVIDERS: Referring Provider Internal Medicine; Visit Provider Internal Medicine | DX: K13.0 Diseases of lips (principal) | CPT/HCPCS: 99202 ==

== ENCOUNTER 2021-11-03 14:18 | Outpatient (REF) | payer MEDICARE, OTHER, SELFPAY ==
[2021-11-03 14:41] LABS: MANUAL DIFF FLAG NO
[2021-11-03 14:59] LABS: Basophils Absolute Auto 0.1 X10*3/uL (0.0-0.2); Basophils Percent Auto 0.7 % (0-2); Eosinophils Absolute Auto 0.4 X10*3/uL (0.0-0.4); Hematocrit 37.2 % (37.0-47.0); Hemoglobin 11.6 g/dl (12.0-16.0); Imm Gran Abs Auto 0.06 X10*3/uL (0.00-0.03); Imm Gran Pct Auto 0.6 % (0.0-0.4); Lymphocytes Absolute Auto 2.3 X10*3/uL (1.2-4.9); Lymphocytes Percent Auto 23.4 % (20-40); Mean Corpuscular HGB Conc 31.2 g/dl (31.0-35.0); Mean Corpuscular Hemoglobin 30.4 pg (27.0-33.0); Mean Corpuscular Volume 97.6 fL (80.0-98.0); Mean Platelet Volume 10.2 fL (9.4-12.3); Monocytes Absolute Auto 0.6 X10*3/uL (0.1-1.2); Monocytes Percent Auto 6.4 % (2-11); Neutrophils Absolute Auto 6.3 x10*3/uL (2.0-8.3); Neutrophils Percent Auto 64.9 % (45-73); Platelet Count 196 X10*3/uL (160-400); Red Blood Count 3.81 X10*6/uL (4.20-5.50); Red Cell Distribution Width 14.7 % (11.0-16.0); White Blood Count 9.8 X10*3/uL (4.8-10.8)
[2021-11-03 15:23] LABS: Alanine Aminotransferase 22 U/L (0-31); Albumin Level 3.5 g/dL (3.5-5.0); Alkaline Phosphatase 87 U/L (39-117); Anion Gap 11 (12-20); Aspartate Amino Transferase 24 U/L (5-31); Bilirubin Total 0.3 mg/dL (0.0-1.0); Blood Urea Nitrogen 16 mg/dL (9-16); C Reactive Protein 1.31 mg/dL (< or = 0.50); Calcium 9.4 mg/dL (8.4-10.2); Carbon Dioxide 28 mmol/L (22-29); Chloride 106 mmol/L (96-108); Estimated Glomerular Filt Rate > 60; Glucose Random 104 mg/dL (60-115); Sodium 141 mmol/L (135-145); Total Protein 6.5 g/dL (6.5-8.0)
[2021-11-03 15:48] LABS: Erythrocyte Sedimentation Rate 25 MM/HR (0-20)
[2021-11-04 13:37] LABS: Immunoglobulin A 269 mg/dL (70-320)
[2021-11-04 22:22] LABS: Immunoglobulin G Subclass 1 601 mg/dL (382-929); Immunoglobulin G Subclass 2 341 mg/dL (241-700); Immunoglobulin G Subclass 3 30 mg/dL (22-178); Immunoglobulin G Subclass 4 66.3 mg/dL (4-86); Immunoglobulin G Total 1233 mg/dL (600-1540)
== END 2021-11-03 14:19 | disposition home or self-care (01) ==
LOC: HO.LAB 14:18
PROVIDERS: Internal Medicine; PCP Internal Medicine; Visit Provider Nurse Practitioner Family
DX: B37.3 Candidiasis of vulva and vagina (principal); K13.0 Diseases of lips; M05.9 Rheumatoid arthritis with rheumatoid factor, unspecified
CPT/HCPCS: 36415; 80053; 82784; 85025; 85652; 86140

== ENCOUNTER → 2021-11-18 12:32 | Outpatient (BNVA) | payer MEDICARE, OTHER, SELFPAY | PROVIDERS: PCP Internal Medicine; Visit Provider Nurse Practitioner Family | DX: M05.9 Rheumatoid arthritis with rheumatoid factor, unspecified (principal); M81.0 Age-related osteoporosis without current pathological fracture; M1A.0710 Idiopathic chronic gout, right ankle and foot, without tophus (tophi) | CPT/HCPCS: 99212 ==

== ENCOUNTER 2021-11-22 14:22 | Outpatient (REF) | payer MEDICARE, OTHER, SELFPAY ==
[2021-11-22 15:10] LABS: MANUAL DIFF FLAG NO
[2021-11-22 15:24] LABS: Basophils Percent Auto 0.3 % (0-2); Eosinophils Absolute Auto 0.1 X10*3/uL (0.0-0.4); Eosinophils Percent Auto 0.5 % (0-4); Hematocrit 37.9 % (37.0-47.0); Hemoglobin 12.1 g/dl (12.0-16.0); Imm Gran Abs Auto 0.08 X10*3/uL (0.00-0.03); Imm Gran Pct Auto 0.7 % (0.0-0.4); Immature Retic Fraction 4.3 % (3.0-15.9); Lymphocytes Absolute Auto 1.5 X10*3/uL (1.2-4.9); Lymphocytes Percent Auto 13.2 % (20-40); Mean Corpuscular HGB Conc 31.9 g/dl (31.0-35.0); Mean Corpuscular Hemoglobin 30.9 pg (27.0-33.0); Mean Corpuscular Volume 96.7 fL (80.0-98.0); Mean Platelet Volume 9.7 fL (9.4-12.3); Monocytes Absolute Auto 0.3 X10*3/uL (0.1-1.2); Neutrophils Absolute Auto 9.2 x10*3/uL (2.0-8.3); Neutrophils Percent Auto 82.3 % (45-73); Platelet Count 258 X10*3/uL (160-400); Red Blood Count 3.92 X10*6/uL (4.20-5.50); Retic HGB Equivalent 31.9 pg (30.0-35.0); Reticulocyte Percent 1.4 % (0.5-1.8); Reticulocytes Absolute 0.056 X10*6/uL (0.026-0.095); White Blood Count 11.2 X10*3/uL (4.8-10.8)
[2021-11-22 15:51] LABS: Alanine Aminotransferase 22 U/L (0-31); Albumin Level 3.8 g/dL (3.5-5.0); Alkaline Phosphatase 90 U/L (39-117); Anion Gap 13 (12-20); Aspartate Amino Transferase 26 U/L (5-31); Bilirubin Total 0.5 mg/dL (0.0-1.0); Blood Urea Nitrogen 18 mg/dL (9-16); C Reactive Protein 1.99 mg/dL (< or = 0.50); Calcium 9.7 mg/dL (8.4-10.2); Carbon Dioxide 28 mmol/L (22-29); Chloride 104 mmol/L (96-108); Cholesterol 195 mg/dL; Estimated Glomerular Filt Rate > 60; Glucose Random 118 mg/dL (60-115); HDL Cholesterol 60 mg/dL; Iron 54 mcg/dL (30-160); LDL Cholesterol Calculated 118 mg/dl; Percent Iron Saturation 17 % (15-50); Potassium 5.2 mmol/L (3.3-5.1); Sodium 140 mmol/L (135-145); Total Iron Binding Capacity 324 mcg/dL (228-428); Total Protein 7.2 g/dL (6.5-8.0); Triglycerides 86 mg/dL; Unsaturated Iron Binding 270 ug/dL
[2021-11-22 16:06] LABS: Erythrocyte Sedimentation Rate 26 MM/HR (0-20)
[2021-11-22 16:11] LABS: Ferritin 155 ng/mL (10-250); Free T4 (Free Thyroxine) 0.84 ng/dL (0.71-1.85); Thyroid Stimulating Hormone 1.57 uIU/mL (0.32-4.0); Vitamin D 25-OH Total 50.6 ng/mL (>30)
[2021-11-22 16:34] LABS: Folate > 20.0 ng/mL (> or = 4.0); Vitamin B12 541 pg/mL (200-900)
== END 2021-11-22 14:23 | disposition home or self-care (01) ==
LOC: HO.LAB 14:22
PROVIDERS: Absent Provider Nurse Practitioner Family; PCP Internal Medicine; Visit Provider Internal Medicine
DX: I10 Essential (primary) hypertension (principal); E78.00 Pure hypercholesterolemia, unspecified; M35.3 Polymyalgia rheumatica; K21.9 Gastro-esophageal reflux disease without esophagitis
CPT/HCPCS: 36415; 80053; 80061; 82306; 82607; 82728; 82746; 83540; 84439; 84443; 85025; 85045; 85652; 86140

== ENCOUNTER 2021-12-01 12:38 | Outpatient (REF) | payer MEDICARE, OTHER, SELFPAY ==
--- NOTE | ~2021-12-01 | US_ITS ---
EXAMINATION: DUPLEX ULTRASOUND OF THE TEMPORAL ARTERIES BILATERALLY CLINICAL INFORMATION: This is an 81-year-old female with localized headache. Possible temporal arteritis. COMPARISON: None TECHNIQUE: Ultrasound of the bilateral temporal arteries was performed. Color-flow duplex imaging with spectral waveform analysis was performed. FINDINGS: The common temporal arteries and frontal ramus arteries were evaluated bilaterally. RIGHT SIDE: The velocity measured 80 cm/s. There is no hypoechoic halo around the common temporal artery. There is no stenosis seen in the common temporal artery. No abnormality is seen in the frontal ramus artery. No thickening of the vessels or turbulent flow is seen. LEFT SIDE: The velocity measured 84 cm/s. There is no hypoechoic halo around the common temporal artery. There is no stenosis seen in the common temporal artery. No abnormality is seen in the frontal ramus artery. No thickening of the vessels or turbulent flow is seen. US/US soft tiss head and/or neck IMPRESSION: 1. No color-flow duplex imaging findings to suggest temporal arteritis.
[2021-12-01 13:42] LABS: MANUAL DIFF FLAG NO
[2021-12-01 14:20] LABS: Basophils Absolute Auto 0.1 X10*3/uL (0.0-0.2); Basophils Percent Auto 0.6 % (0-2); Eosinophils Absolute Auto 0.1 X10*3/uL (0.0-0.4); Eosinophils Percent Auto 0.6 % (0-4); Hemoglobin 12.1 g/dl (12.0-16.0); Imm Gran Abs Auto 0.08 X10*3/uL (0.00-0.03); Imm Gran Pct Auto 0.8 % (0.0-0.4); Lymphocytes Absolute Auto 1.6 X10*3/uL (1.2-4.9); Lymphocytes Percent Auto 14.8 % (20-40); Mean Corpuscular Hemoglobin 30.2 pg (27.0-33.0); Mean Corpuscular Volume 97.3 fL (80.0-98.0); Mean Platelet Volume 9.9 fL (9.4-12.3); Monocytes Absolute Auto 0.2 X10*3/uL (0.1-1.2); Monocytes Percent Auto 2.2 % (2-11); Neutrophils Absolute Auto 8.6 x10*3/uL (2.0-8.3); Platelet Count 252 X10*3/uL (160-400); Red Blood Count 4.01 X10*6/uL (4.20-5.50); Red Cell Distribution Width 13.8 % (11.0-16.0); White Blood Count 10.6 X10*3/uL (4.8-10.8)
[2021-12-01 14:50] LABS: Alanine Aminotransferase 18 U/L (0-31); Albumin Level 3.8 g/dL (3.5-5.0); Alkaline Phosphatase 85 U/L (39-117); Anion Gap 14 (12-20); Aspartate Amino Transferase 26 U/L (5-31); Bilirubin Total 0.3 mg/dL (0.0-1.0); Blood Urea Nitrogen 15 mg/dL (9-16); Calcium 9.7 mg/dL (8.4-10.2); Carbon Dioxide 26 mmol/L (22-29); Chloride 104 mmol/L (96-108); Estimated Glomerular Filt Rate > 60; Glucose Random 96 mg/dL (60-115); Potassium 4.1 mmol/L (3.3-5.1); Sodium 140 mmol/L (135-145); Total Protein 7.2 g/dL (6.5-8.0)
[2021-12-01 14:59] LABS: Erythrocyte Sedimentation Rate 17 MM/HR (0-20)
== END 2021-12-01 12:39 | disposition home or self-care (01) ==
LOC: HO.US 12:38
PROVIDERS: PCP Internal Medicine; Visit Provider Nurse Practitioner Family
DX: R51.9 Headache, unspecified (principal); K13.0 Diseases of lips; M35.3 Polymyalgia rheumatica
CPT/HCPCS: 36415; 76536; 80053; 85025; 85652; 86140

== ENCOUNTER 2021-12-22 14:12 | Outpatient (REF) | payer MEDICARE, OTHER, SELFPAY ==
[2021-12-22 15:29] LABS: Erythrocyte Sedimentation Rate 19 MM/HR (0-20)
[2021-12-22 15:44] LABS: C Reactive Protein 0.62 mg/dL (< or = 0.50)
== END 2021-12-22 14:13 | disposition home or self-care (01) ==
LOC: HO.LAB 14:12
PROVIDERS: PCP Internal Medicine; Visit Provider Nurse Practitioner Family
DX: M35.3 Polymyalgia rheumatica (principal)
CPT/HCPCS: 36415; 85652; 86140

== ENCOUNTER 2022-01-13 13:22 | Outpatient (REF) | payer MEDICARE, OTHER, SELFPAY ==
--- NOTE | ~2022-01-13 | MM_ITS ---
EXAMINATION: MM SCREENING DIGITAL BREAST TOMOSYNTHESIS, BILATERAL CLINICAL INFORMATION: Screening. Asymptomatic. The lifetime risk of breast cancer based on the Tyrer-Cuzick Model is 1%. COMPARISON: Mammography: 07/11/2019, 01/31/2018, 12/30/2016 TECHNIQUE: Digital breast tomosynthesis is performed in both the craniocaudal and mediolateral oblique views along with computer-aided detection (CAD). Synthesized 2D images are generated from the tomosynthesis. FINDINGS: There are scattered areas of fibroglandular density (ACR BI-RADS breast composition Category b). There are no significant masses, abnormal calcifications, or other abnormalities. Parenchymal pattern is similar to prior studies. There are no significant changes. MM/MM tomosynthesis screening BI IMPRESSION: No mammographic evidence of malignancy. ASSESSMENT: BI-RADS 1: Negative RECOMMENDATION: Routine annual mammography screening. This patient's information was entered into a reminder system with a target due date for their next mammogram.
--- NOTE | ~2022-01-13 | MM_ITS ---
EXAMINATION: BONE DENSITOMETRY CLINICAL INDICATION: Age-related osteoporosis without current pathological fracture. COMPARISON: Previous BD dated 08/14/2019 and baseline BD dated 06/12/2008. TECHNIQUE: Using a [employer] DXA System (software version: 13.1) manufactured by [employer], dual-energy x-ray absorptiometry was performed of the lumbar spine and left hip. The images are of good technical quality. Summary results are attached. FINDINGS: AP SPINE L1-L4 (excluding L3): The data of L1-L4 has been changed to exclude the L3 vertebral body, because degenerative changes and levocurvature at this level may cause overestimation of lumbar spine density. Current: BMD 1.201 g/cm2, Z-score 1.7, T-score 0.3, normal, 3.8% increase from previous, 8.0% increase from baseline (<5% change is not significant). Prior: BMD 1.157 g/cm2. Baseline: BMD 1.112 g/cm2. LEFT FEMUR, NECK: Current: BMD 0.624 g/cm2, Z-score -1.0, T-score -3.0, osteoporosis. Prior: BMD 0.745 g/cm2. Baseline: BMD 0.771 g/cm2. LEFT FEMUR, TOTAL: Current: BMD 0.726 g/cm2, Z-score -0.4, T-score -2.2, osteopenia, 16.9% decrease from previous, 13.5% decrease from baseline (<5% change is not significant). Prior: BMD 0.874 g/cm2. Baseline: BMD 0.839 g/cm2. IDENTIFIED RISK FACTORS: Rheumatoid arthritis, osteoporosis. Early menopause, secondary osteoporosis, bilateral oophorectomy. HISTORY OF FRACTURE: None listed. MEDICATIONS: Calcium supplements or multivitamin, vitamin D. MM/XR DEXA axial skeleton IMPRESSION: 1. DIAGNOSIS: Osteoporosis based on the lowest T-score value of -3.0 in the femoral neck applying World Health Organization criteria. 2. 10-YEAR FRACTURE RISK PREDICTION, FRAX: According to the guidelines, FRAX calculation should only be performed on patients in the osteopenia bone density category. Therefore, FRAX was not performed on this patient. 3. Treatment Recommendations: NOF guidelines recommend consideration for treatment in postmenopausal women and men age 50 and older presenting with the following: -A hip or vertebral (clinical or morphometric) fracture. -T-score less than or equal to -2.5 at the femoral neck or spine after appropriate evaluation to exclude secondary causes. -Low bone mass at the hip or spine and a 10-year fracture probability by FRAX of greater than or equal to 3% for hip fracture or greater than or equal to 20% for major osteoporotic fracture based on the [place] adapted WHO algorithm. 4. Other Recommendations: All treatment decisions require clinical judgment and consideration of individual patient factors, including patient preferences, comorbidities, previous drug use, risk factors not captured in the FRAX model (e.g. frailty, falls, vitamin D deficiency, increased bone turnover, interval significant decline in bone density) and possible under or overestimation of fracture risk by FRAX. Additional medical evaluation for secondary cause of low bone mineral density may be appropriate. FUTURE SCAN RECOMMENDATION: People with diagnosed cases of osteoporosis or at high risk for fracture should have regular bone mineral density tests. For patients eligible for Medicare, routine testing is allowed once every 2 years. The testing frequency can be increased to one year for patients who have rapidly progressing disease, those who are receiving or discontinuing medical therapy to restore bone mass, or have additional risk factors.
[2022-01-13 15:19] LABS: Basophils Percent Auto 0.3 % (0-2); Eosinophils Absolute Auto 0.1 X10*3/uL (0.0-0.4); Eosinophils Percent Auto 0.4 % (0-4); Hematocrit 40.6 % (37.0-47.0); Hemoglobin 12.7 g/dl (12.0-16.0); Imm Gran Pct Auto 0.8 % (0.0-0.4); Lymphocytes Absolute Auto 1.8 X10*3/uL (1.2-4.9); Lymphocytes Percent Auto 14.6 % (20-40); MANUAL DIFF FLAG NO; Mean Corpuscular HGB Conc 31.3 g/dl (31.0-35.0); Mean Corpuscular Volume 95.8 fL (80.0-98.0); Mean Platelet Volume 9.1 fL (9.4-12.3); Monocytes Absolute Auto 0.3 X10*3/uL (0.1-1.2); Monocytes Percent Auto 2.8 % (2-11); Neutrophils Absolute Auto 9.7 x10*3/uL (2.0-8.3); Neutrophils Percent Auto 81.1 % (45-73); Platelet Count 255 X10*3/uL (160-400); Red Blood Count 4.24 X10*6/uL (4.20-5.50); Red Cell Distribution Width 13.9 % (11.0-16.0)
[2022-01-13 15:56] LABS: Alanine Aminotransferase 17 U/L (0-31); Alkaline Phosphatase 91 U/L (39-117); Anion Gap 11 (12-20); Aspartate Amino Transferase 23 U/L (5-31); Bilirubin Total 0.5 mg/dL (0.0-1.0); Blood Urea Nitrogen 20 mg/dL (9-16); C Reactive Protein 0.47 mg/dL (< or = 0.50); Calcium 9.7 mg/dL (8.4-10.2); Carbon Dioxide 31 mmol/L (22-29); Chloride 101 mmol/L (96-108); Estimated Glomerular Filt Rate > 60; Glucose Random 110 mg/dL (60-115); Potassium 4.8 mmol/L (3.3-5.1); Sodium 138 mmol/L (135-145); Total Protein 7.3 g/dL (6.5-8.0); Uric Acid 4.9 mg/dL (2.4-5.7)
[2022-01-13 16:53] LABS: Erythrocyte Sedimentation Rate 18 MM/HR (0-20)
== END 2022-01-13 13:23 | disposition home or self-care (01) ==
LOC: HO.LAB 13:22
PROVIDERS: PCP Internal Medicine; Visit Provider Nurse Practitioner Family
DX: Z12.31 Encounter for screening mammogram for malignant neoplasm of breast (principal); Z13.820 Encounter for screening for osteoporosis; M81.0 Age-related osteoporosis without current pathological fracture; Z78.0 Asymptomatic menopausal state; M35.3 Polymyalgia rheumatica; M05.9 Rheumatoid arthritis with rheumatoid factor, unspecified; Z79.899 Other long term (current) drug therapy
CPT/HCPCS: 36415; 77063; 77067; 77080; 80053; 84550; 85025; 85652; 86140

== ENCOUNTER → 2022-01-24 13:33 | Outpatient (BNVA) | payer MEDICARE, OTHER, SELFPAY | PROVIDERS: PCP Internal Medicine; Visit Provider Nurse Practitioner Family | DX: M05.9 Rheumatoid arthritis with rheumatoid factor, unspecified (principal); M35.3 Polymyalgia rheumatica; M81.0 Age-related osteoporosis without current pathological fracture; M1A.0710 Idiopathic chronic gout, right ankle and foot, without tophus (tophi) | CPT/HCPCS: 99212 ==

== ENCOUNTER → 2022-02-16 10:50 | Outpatient (BNVA) | payer MEDICARE, OTHER, SELFPAY | PROVIDERS: PCP Internal Medicine; Visit Provider Internal Medicine Rheumatology | DX: M05.9 Rheumatoid arthritis with rheumatoid factor, unspecified (principal); M18.11 Unilateral primary osteoarthritis of first carpometacarpal joint, right hand; M35.3 Polymyalgia rheumatica; M81.0 Age-related osteoporosis without current pathological fracture; I10 Essential (primary) hypertension; E78.00 Pure hypercholesterolemia, unspecified; F41.8 Other specified anxiety disorders; Z88.1 Allergy status to other antibiotic agents; Z88.8 Allergy status to other drugs, medicaments and biological substances; Z79.899 Other long term (current) drug therapy | CPT/HCPCS: 20600 ==

== ENCOUNTER 2022-03-09 09:48 | Emergency (ER) | payer MEDICARE, OTHER, SELFPAY ==
--- NOTE | ~2022-03-09 | XR_ITS ---
EXAMINATION: CR X-RAY HAND AND WRIST RIGHT CLINICAL INFORMATION: Right hand pain status post injury at home. COMPARISON: None TECHNIQUE: 4 views of the right hand and wrist were obtained. FINDINGS: Moderate first carpometacarpal and mild triscaphe degenerative joint changes are seen with joint space narrowing, periarticular sclerosis and marginal osteophyte formation. There is no overt fracture or dislocation in this region. The carpal bones are normally aligned. The distal radius and ulna are intact. Moderate to severe first, third and fourth distal interphalangeal and second and third interphalangeal degenerative joint changes are seen as well. Mild soft tissue swelling surrounds the wrist. XR/XR hand wrist RT IMPRESSION: Degenerative joint changes as detailed above most consistent with osteoarthritis. Mild soft tissue swelling but no acute underlying osseous abnormality.
[2022-03-09 10:42] VITALS: BP 150/60; PULSE 80; RESP 16; TEMP 37.3; O2SAT 97; BMI 28.5
--- NOTE | 2022-03-09 11:04 | ED_ITS ---
HPI - Extremity Problem General Chief complaint: Extremity Injury, Upper Stated complaint: r wrist inj at home Time Seen by Provider: 03/09/22 10:48 Source: patient Mode of arrival: ambulatory History of Present Illness HPI Narrative: 81-year-old female with a past medical history of anxiety, depression, asthma, GERD, gout, HLD, RA, HTN, presenting to the ED complaining of right wrist/hand pain s/p heavy book falling on wrist yesterday. Admits to chronic arthritis to right wrist received cortisone injections a few weeks ago without resolution. Reports pain with ROM. Denies numbness, tingling, weakness, injury to other area MD Complaint: extremity pain, joint swelling and joint pain Onset (ago): day(s) Pain Consistency: constant Location: right Related Data Home Medications Medication Instructions Recorded Confirmed calcium cit 250 mg-mag 40 mg-D3 1 tab PO DAILY 09/04/20 02/16/22 125 unit-zinc 3.75 mg-helicopter engineer-kd tablet (Calcium Citrate Plus) fexofenadine 180 mg tablet 180 mg PO DAILY 09/04/20 02/16/22 (Marisa Allergy) multivitamin 1 tab PO DAILY 09/04/20 02/16/22 prednisolone acetate 1 % eye 2 drp OPHTHALMIC (EYE) BID 09/04/20 02/16/22 drops,suspension vitamin B complex (B 1 tab PO DAILY 09/04/20 02/16/22 Complex-Vitamin B12) Previous Rx's Medication Instructions Recorded CMF Bone Stimulator #1 ea 10/09/20 ropinirole 3 mg tablet 3 mg PO DAILY #90 tab 07/05/21 folic acid 1 mg tablet 1 mg PO DAILY #90 tab 08/11/21 hydrochlorothiazide 25 mg tablet 25 mg PO DAILY #90 tab 10/11/21 montelukast 10 mg tablet 10 mg PO BEDTIME #90 tab 11/15/21 methotrexate sodium 2.5 mg tablet 15 mg PO QWEEK #24 tab 11/19/21 lidocaine 5 % topical patch 1 patch TOPICAL DAILY PRN #15 ea 12/06/21 allopurinol 100 mg tablet 100 mg PO DAILY #90 tab 12/08/21 pravastatin 10 mg tablet 10 mg PO BEDTIME #90 tab 12/08/21 tramadol 50 mg tablet 50 mg PO BID PRN #60 tab 01/06/22 metoprolol succinate 25 mg 25 mg PO DAILY #90 tab 01/10/22 tablet,extended release 24 hr omeprazole 40 mg capsule,delayed 40 mg PO DAILY #90 cap 01/10/22 release prednisone 1 mg tablet 2 mg PO DAILY #120 tab 01/24/22 prednisone 5 mg tablet 5 mg PO DAILY #60 tab 01/24/22 hydrocodone 5 mg-acetaminophen 325 1 tab PO Q8H PRN 3 Days #9 tab 03/09/22 mg tablet naproxen 500 mg tablet 500 mg PO BID PRN 10 Days #20 tab 03/09/22 Allergies Allergy/AdvReac Type Severity Reaction Status Date / Time alendronate sodium Allergy Severe ANAPHYLAXIS Verified 02/16/22 10:53 [From FOSAMAX] lisinopril [LISINOPRIL] Allergy Severe ANAPHYLAXIS, Verified 02/16/22 10:53 cough clarithromycin Allergy Intermediate CONFUSION, Verified 02/16/22 10:53 [CLARITHROMYCIN] sores on tongue, dry mouth simvastatin [SIMVASTATIN] Allergy Mild DRY Verified 02/16/22 10:53 THROAT, achy, confusion prednisone AdvReac Intermediate vomiting Verified 02/16/22 10:53 Review of Systems Review of Systems: Constitutional: No Fever, No Chills ENT/Mouth: No Ear Pain, No Nasal Congestion, No sore throat, No Rhinorrhea, No Swallowing Difficulty Cardiovascular: No Chest Pain, No SOB Respiratory: No Cough, No Sputum Gastrointestinal: No Nausea, No Vomiting, No Diarrhea, No Constipation, No Abdominal pain Genitourinary: No Dysuria, No Urinary Frequency, No Hematuria, No Flank Pain Musculoskeletal: + joint pain, No Myalgias, + Joint Swelling Skin: No Skin Lesions, No rash Neuro: No Weakness, No Numbness, No Paresthesias Yes all other systems are reviewed and are negative [facility] Past Medical History Attestation statement: The following information was validated with the patient. Medical History Anxiety and depression Asthma Fracture of 5th metatarsal Fracture of fifth metatarsal bone of right foot GERD (gastroesophageal reflux disease) Gout High cholesterol Hypercholesterolemia Hypergammaglobulinemia Hypertension Hypertension Lumbar degenerative disc disease Nondisplaced fracture of fifth metatarsal bone, left foot, subsequent encounter for fracture with nonunion Osteoarthritis Osteoarthritis of carpometacarpal (CMC) joint of right thumb Osteoporosis Overweight (BMI 25.0-29.9) Peripheral neuropathy Polymyalgia rheumatica Restless leg syndrome Rheumatoid arthritis Seizure disorder Seropositive rheumatoid arthritis Thrush, oral Surgical History Corneal transplant status H/O left knee surgery History of appendectomy History of arthroplasty of right hip History of cholecystectomy History of corneal transplant History of open reduction and internal fixation (ORIF) procedure History of total abdominal hysterectomy Family History Family History Father CVD (cardiovascular disease) Mother No problems noted. Social History Social History Housing: House Alcohol intake: current Alcohol intake frequency: a few times a month Alcohol type: wine Patient Tobacco Use Status: Never used Tobacco e-Cigarette/Vaping Use: Never Used Second Hand Smoke Exposure: No Advance Directives: No Advance Directives Information Provided: No service: No Current occupational status: retired Physical Exam Vital Signs: Vital Signs: Last Vital Signs Temp 99.2 F 03/09/22 10:42 Pulse 80 03/09/22 10:42 Resp 16 03/09/22 10:42 BP 150/60 H 03/09/22 10:42 Pulse Ox 97 03/09/22 10:42 BMI result Body Mass Index 28.5 Const: General: cooperative, healthy appearing and no acute distress Orientation/consciousness: patient oriented x3 Limitations: no limitations HEENT: Head: Yes normal to inspection and Yes atraumatic Ears: hearing grossly normal bilaterally General nose exam: Normal external nose present Face and sinus: Yes normal facial exam Eyes: General: appearance normal, both eyes and all related structures EOM: EOMs intact bilaterally Neck: Neck: Yes no meningeal signs Resp: Effort & Inspection: normal respiratory effort and no respiratory distress Cardio: Rate: regular rate Heart sounds: S1 normal heart sound present and S2 normal heart sound present Peripheral pulses: radial pulses present and ulnar radial pulses present Skin: Rashes: no rashes Wounds: no wounds Neuro: General: patient oriented x3 and no meningeal signs Gait exam (Neuro): Normal gait present Extrem: Other: Right wrist/hand with noted swelling and slight deformity to 1st metacarpal. Wrist diffusely tender greatest to radial aspect. + snuffbox tenderness. Limited thumb to pinky opposition secondary to pain. Wrist ROM limited secondary to pain. Neurovascularly intact distally. Right elbow/forearm/humerus and shoulder nontender Course Course Course Narrative: XR hand wrist RT IMPRESSION: Degenerative joint changes as detailed above most consistent with osteoarthritis. Mild soft tissue swelling but no acute underlying osseous abnormality. >> patient placed in thumb spica splint. Recommended follow-up with PCP/orthopedics in 1 week MDM - Extremity (Nontraumatic) MDM Narrative Medical decision making narrative: 81-year-old female with a past medical history of anxiety, depression, asthma, GERD, gout, HLD, RA, HTN, presenting to the ED complaining of right wrist/hand pain s/p heavy book falling on wrist yesterday. On exam vital signs stable, tearful, physical exam as above. Concern for fracture vs sprain versus arthritic flare Plan: X-rays Medical Records Attestation: I reviewed the patient's medical records. Lab Data Attestation: I reviewed the patient's lab results. Discharge Plan Discharge Clinical Impression: Acute wrist pain Patient Disposition: Home, Self-Care Instructions: Arthralgia (ED) Additional Instructions: Your x-ray shows osteoarthritis and soft tissue swelling. No fracture. Please were splint at all times until you see the junk removal specialist, call to make an appointment. Ice. Elevate. Naproxen as an anti-inflammatory/pain medication, take with food. In addition [facility] was opiate pain medication, take only when pain is severe for the next 3 days. Be your [facility] has Tylenol mixed in do not exceed 4 g of Tylenol in 1 day Prescriptions: New hydrocodone-acetaminophen 5-325 mg tablet 1 tab PO Q8H PRN (Reason: pain, severe) 3 Days Qty: 9 0RF naproxen 500 mg tablet 500 mg PO BID PRN (Reason: pain) 10 Days Qty: 20 0RF No Action hydrochlorothiazide 25 mg tablet 25 mg PO DAILY Qty: 90 3RF montelukast 10 mg tablet 10 mg PO BEDTIME Qty: 90 2RF allopurinol 100 mg tablet 100 mg PO DAILY Qty: 90 1RF pravastatin 10 mg tablet 10 mg PO BEDTIME Qty: 90 2RF tramadol 50 mg tablet 50 mg PO BID PRN (Reason: pain) Qty: 60 1RF metoprolol succinate 25 mg tablet extended release 24 hr 25 mg PO DAILY Qty: 90 3RF omeprazole 40 mg capsule,delayed release(DR/EC) 40 mg PO DAILY Qty: 90 3RF fexofenadine [Marisa Allergy] 180 mg tablet 180 mg PO DAILY 0RF prednisolone acetate 1 % drops,suspension 2 drp ophthalmic (eye) BID 0RF multivitamin Tablet 1 tab PO DAILY 0RF vitamin B complex [B Complex-Vitamin B12] Tablet 1 tab PO DAILY 0RF Calcium Citrate Plus 149-86-804-3.75 hh-ki-djaz-mg tablet 1 tab PO DAILY 0RF ropinirole 3 mg tablet 3 mg PO DAILY Qty: 90 2RF lidocaine 5 % adhesive patch,medicated 1 patch topical DAILY PRN (Reason: low back pain) Qty: 15 0RF Rx Instructions: leave on most painful area for up to 12 hrs (DME) CMF Bone Stimulator See Rx Instructions .Route .MEDSUPPLY Qty: 1 0RF Rx Instructions: As directed folic acid 1 mg tablet 1 mg PO DAILY Qty: 90 2RF methotrexate sodium 2.5 mg tablet 15 mg PO QWEEK Qty: 24 1RF prednisone 5 mg tablet 5 mg PO DAILY Qty: 60 0RF Rx Instructions: To be taken with prednisone 1 mg tab (2 tabs) to equal 7 mg of prednisone daily prednisone 1 mg tablet 2 mg PO DAILY Qty: 120 0RF Rx Instructions: To be taken with prednisone 5mg tab to equal 7mg of prednisone daily Referrals: Latrice Garcia PA-C [Physician [employer]] - 1 week
[2022-03-09] MEDS: oxyCODONE HCl Immed Release 5 MG TABLET PO (11:17)
--- NOTE | 2022-03-09 12:26 | PC.NURSE ---
right thumb spica placed on right wrist. pt verbalized limb felt more supported after placement
== END 2022-03-09 12:52 | disposition home or self-care (01) ==
PROVIDERS: Emergency Provider Emergency Medicine; PCP Internal Medicine
DX: M25.531 Pain in right wrist (principal); M19.031 Primary osteoarthritis, right wrist; I10 Essential (primary) hypertension; M05.9 Rheumatoid arthritis with rheumatoid factor, unspecified; J45.909 Unspecified asthma, uncomplicated
CPT/HCPCS: 73110; 73130; 99283; 99284

== ENCOUNTER 2022-03-28 12:08 | Outpatient (REF) | payer MEDICARE, OTHER, SELFPAY ==
[2022-03-28 12:32] LABS: MANUAL DIFF FLAG NO
[2022-03-28 13:11] LABS: Basophils Absolute Auto 0.1 X10*3/uL (0.0-0.2); Eosinophils Absolute Auto 0.2 X10*3/uL (0.0-0.4); Eosinophils Percent Auto 2.6 % (0-4); Hematocrit 39.3 % (37.0-47.0); Hemoglobin 12.5 g/dl (12.0-16.0); Imm Gran Abs Auto 0.05 X10*3/uL (0.00-0.03); Imm Gran Pct Auto 0.7 % (0.0-0.4); Lymphocytes Absolute Auto 2.3 X10*3/uL (1.2-4.9); Lymphocytes Percent Auto 31.7 % (20-40); Mean Corpuscular HGB Conc 31.8 g/dl (31.0-35.0); Mean Corpuscular Hemoglobin 30.5 pg (27.0-33.0); Mean Corpuscular Volume 95.9 fL (80.0-98.0); Mean Platelet Volume 9.4 fL (9.4-12.3); Monocytes Absolute Auto 0.5 X10*3/uL (0.1-1.2); Monocytes Percent Auto 6.6 % (2-11); Neutrophils Absolute Auto 4.2 x10*3/uL (2.0-8.3); Neutrophils Percent Auto 57.4 % (45-73); Platelet Count 236 X10*3/uL (160-400); Red Cell Distribution Width 14.1 % (11.0-16.0); White Blood Count 7.3 X10*3/uL (4.8-10.8)
[2022-03-28 13:39] LABS: Alanine Aminotransferase 23 U/L (0-31); Albumin Level 3.8 g/dL (3.5-5.0); Alkaline Phosphatase 78 U/L (39-117); Anion Gap 13 (12-20); Aspartate Amino Transferase 25 U/L (5-31); Bilirubin Total 0.7 mg/dL (0.0-1.0); Blood Urea Nitrogen 14 mg/dL (9-16); C Reactive Protein 0.78 mg/dL (< or = 0.50); Calcium 9.7 mg/dL (8.4-10.2); Carbon Dioxide 25 mmol/L (22-29); Chloride 104 mmol/L (96-108); Estimated Glomerular Filt Rate > 60; Glucose Random 87 mg/dL (60-115); Potassium 4.1 mmol/L (3.3-5.1); Sodium 138 mmol/L (135-145); Total Protein 6.9 g/dL (6.5-8.0)
[2022-03-28 13:53] LABS: Erythrocyte Sedimentation Rate 23 MM/HR (0-20); Uric Acid 4.6 mg/dL (2.4-5.7)
== END 2022-03-28 12:09 | disposition home or self-care (01) ==
LOC: HO.LAB 12:08
PROVIDERS: PCP Internal Medicine; Visit Provider Nurse Practitioner Family
DX: M1A.0710 Idiopathic chronic gout, right ankle and foot, without tophus (tophi) (principal); M05.9 Rheumatoid arthritis with rheumatoid factor, unspecified
CPT/HCPCS: 36415; 80053; 84550; 85025; 85652; 86140

== ENCOUNTER → 2022-03-31 14:02 | Outpatient (BNVA) | payer MEDICARE, OTHER, SELFPAY | PROVIDERS: PCP Internal Medicine; Visit Provider Nurse Practitioner Family | DX: M05.9 Rheumatoid arthritis with rheumatoid factor, unspecified (principal); M35.3 Polymyalgia rheumatica; M81.0 Age-related osteoporosis without current pathological fracture; M1A.0710 Idiopathic chronic gout, right ankle and foot, without tophus (tophi); Z79.899 Other long term (current) drug therapy | CPT/HCPCS: 99212 ==

== ENCOUNTER 2022-06-21 13:46 | Outpatient (REF) | payer MEDICARE, OTHER, SELFPAY ==
[2022-06-21 13:55] LABS: MANUAL DIFF FLAG NO
[2022-06-21 15:48] LABS: Basophils Absolute Auto 0.1 X10*3/uL (0.0-0.2); Eosinophils Absolute Auto 0.2 X10*3/uL (0.0-0.4); Eosinophils Percent Auto 3.4 % (0-4); Hematocrit 40.7 % (37.0-47.0); Hemoglobin 13.1 g/dl (12.0-16.0); Imm Gran Abs Auto 0.05 X10*3/uL (0.00-0.03); Imm Gran Pct Auto 0.7 % (0.0-0.4); Lymphocytes Percent Auto 28.2 % (20-40); Mean Corpuscular HGB Conc 32.2 g/dl (31.0-35.0); Mean Corpuscular Hemoglobin 30.2 pg (27.0-33.0); Mean Corpuscular Volume 93.8 fL (80.0-98.0); Mean Platelet Volume 9.6 fL (9.4-12.3); Monocytes Absolute Auto 0.7 X10*3/uL (0.1-1.2); Monocytes Percent Auto 9.6 % (2-11); Neutrophils Absolute Auto 4.1 x10*3/uL (2.0-8.3); Neutrophils Percent Auto 57.1 % (45-73); Platelet Count 270 X10*3/uL (160-400); Red Blood Count 4.34 X10*6/uL (4.20-5.50); Red Cell Distribution Width 13.4 % (11.0-16.0); White Blood Count 7.1 X10*3/uL (4.8-10.8)
[2022-06-21 16:30] LABS: Erythrocyte Sedimentation Rate 27 MM/HR (0-20)
[2022-06-21 16:34] LABS: Alanine Aminotransferase 16 U/L (0-31); Aspartate Amino Transferase 25 U/L (5-31); C Reactive Protein 1.02 mg/dL (< or = 0.50); Estimated Glomerular Filt Rate > 60
== END 2022-06-21 13:47 | disposition home or self-care (01) ==
LOC: HO.LAB 13:46
PROVIDERS: PCP Internal Medicine; Visit Provider Nurse Practitioner Family
DX: M05.9 Rheumatoid arthritis with rheumatoid factor, unspecified (principal); Z79.899 Other long term (current) drug therapy
CPT/HCPCS: 36415; 82565; 84450; 84460; 85025; 85652; 86140

== ENCOUNTER → 2022-07-04 10:29 | Outpatient (BNVA) | payer MEDICARE, OTHER, SELFPAY | PROVIDERS: PCP Internal Medicine; Visit Provider Nurse Practitioner Family | DX: M05.9 Rheumatoid arthritis with rheumatoid factor, unspecified (principal); M35.3 Polymyalgia rheumatica; M53.3 Sacrococcygeal disorders, not elsewhere classified; M81.0 Age-related osteoporosis without current pathological fracture; M1A.0710 Idiopathic chronic gout, right ankle and foot, without tophus (tophi); Z79.899 Other long term (current) drug therapy; Z96.653 Presence of artificial knee joint, bilateral; Z96.641 Presence of right artificial hip joint | CPT/HCPCS: 99212 ==

== ENCOUNTER 2022-07-20 11:11 | Outpatient (REF) | payer MEDICARE, OTHER, SELFPAY ==
--- NOTE | ~2022-07-20 | XR_ITS ---
EXAMINATION: XR SACROILIAC JOINTS CLINICAL INFORMATION: Sacrococcygeal disorders COMPARISON: X-ray of the pelvis December 2014 TECHNIQUE: 3 views of the sacroiliac joints FINDINGS: The sacroiliac joints are normal. Incidental note made of a partially visualized right total hip arthroplasty unremarkable. Remaining bone and visualized joints in the pelvis are normal. There is spondylosis of the partially visualized lumbar sacral spine. T XR/XR sacroiliac joint min 3V IMPRESSION: Normal sacroiliac joints.
== END 2022-07-20 11:12 | disposition home or self-care (01) ==
LOC: HO.XRAY 11:11
PROVIDERS: PCP Internal Medicine; Visit Provider Nurse Practitioner Family
DX: M53.3 Sacrococcygeal disorders, not elsewhere classified (principal)
CPT/HCPCS: 72202

== ENCOUNTER 2022-08-02 14:36 | Outpatient (REF) | payer MEDICARE, OTHER, SELFPAY ==
[2022-08-02 15:30] LABS: C Reactive Protein 0.59 mg/dL (< or = 0.50)
[2022-08-02 15:42] LABS: Erythrocyte Sedimentation Rate 23 MM/HR (0-20)
== END 2022-08-02 14:37 | disposition home or self-care (01) ==
LOC: HO.LAB 14:36
PROVIDERS: PCP Internal Medicine; Visit Provider Nurse Practitioner Family
DX: M35.3 Polymyalgia rheumatica (principal)
CPT/HCPCS: 36415; 85652; 86140

== ENCOUNTER → 2022-08-08 14:30 | Outpatient (BNVA) | payer MEDICARE, OTHER, SELFPAY | PROVIDERS: PCP Internal Medicine; Visit Provider Nurse Practitioner Family | DX: M35.3 Polymyalgia rheumatica (principal); M05.9 Rheumatoid arthritis with rheumatoid factor, unspecified; M81.0 Age-related osteoporosis without current pathological fracture; M1A.0710 Idiopathic chronic gout, right ankle and foot, without tophus (tophi); M51.36 Other intervertebral disc degeneration, lumbar region; Z79.52 Long term (current) use of systemic steroids; Z79.899 Other long term (current) drug therapy | CPT/HCPCS: 99212 ==

== ENCOUNTER 2022-10-12 13:55 | Outpatient (REF) | payer MEDICARE, OTHER, SELFPAY ==
[2022-10-12 14:20] LABS: MANUAL DIFF FLAG NO
[2022-10-12 15:02] LABS: Basophils Absolute Auto 0.1 X10*3/uL (0.0-0.2); Eosinophils Absolute Auto 0.1 X10*3/uL (0.0-0.4); Eosinophils Percent Auto 1.4 % (0-4); Hematocrit 39.9 % (37.0-47.0); Hemoglobin 12.7 g/dl (12.0-16.0); Imm Gran Abs Auto 0.06 X10*3/uL (0.00-0.03); Imm Gran Pct Auto 0.7 % (0.0-0.4); Lymphocytes Absolute Auto 2.1 X10*3/uL (1.2-4.9); Mean Corpuscular HGB Conc 31.8 g/dl (31.0-35.0); Mean Corpuscular Hemoglobin 29.8 pg (27.0-33.0); Mean Corpuscular Volume 93.7 fL (80.0-98.0); Mean Platelet Volume 9.5 fL (9.4-12.3); Monocytes Absolute Auto 0.5 X10*3/uL (0.1-1.2); Monocytes Percent Auto 5.6 % (2-11); Neutrophils Absolute Auto 5.5 x10*3/uL (2.0-8.3); Neutrophils Percent Auto 66.3 % (45-73); Platelet Count 306 X10*3/uL (160-400); Red Blood Count 4.26 X10*6/uL (4.20-5.50); Red Cell Distribution Width 13.8 % (11.0-16.0); White Blood Count 8.3 X10*3/uL (4.8-10.8)
[2022-10-12 15:40] LABS: Erythrocyte Sedimentation Rate 30 MM/HR (0-20)
[2022-10-12 15:49] LABS: Alanine Aminotransferase 18 U/L (0-31); Alkaline Phosphatase 89 U/L (39-117); Anion Gap 14 (12-20); Aspartate Amino Transferase 25 U/L (5-31); Bilirubin Total 0.4 mg/dL (0.0-1.0); Blood Urea Nitrogen 16 mg/dL (9-16); C Reactive Protein 0.59 mg/dL (< or = 0.50); Calcium 9.7 mg/dL (8.4-10.2); Carbon Dioxide 26 mmol/L (22-29); Chloride 106 mmol/L (96-108); Estimated Glomerular Filt Rate 55; Glucose Random 93 mg/dL (60-115); Potassium 4.5 mmol/L (3.3-5.1); Sodium 141 mmol/L (135-145); Total Protein 7.1 g/dL (6.5-8.0); Vitamin D 25-OH Total 47.4 ng/mL (>30)
== END 2022-10-12 13:56 | disposition home or self-care (01) ==
LOC: HO.LAB 13:55
PROVIDERS: PCP Internal Medicine; Visit Provider Nurse Practitioner Family
DX: M05.9 Rheumatoid arthritis with rheumatoid factor, unspecified (principal)
CPT/HCPCS: 36415; 80053; 82306; 85025; 85652; 86140

== ENCOUNTER 2022-10-13 17:11 | Emergency (ER) | payer MEDICARE, OTHER, SELFPAY ==
--- NOTE | ~2022-10-13 | CT_ITS ---
EXAMINATION: CT HEAD WITHOUT CONTRAST CLINICAL INFORMATION: New onset dizziness. COMPARISON: MRI brain 06/23/2019. CT head 06/23/2019. TECHNIQUE: Contiguous axial imaging was performed from the skull base to vertex without intravenous administration of contrast. This CT examination was performed using dose optimization techniques as appropriate, variously including the following: *Automated exposure control *Adjustment of mA and/or kV according to patient size (this includes techniques or standardized protocols for targeted exams where dose is matched to indication/reason for exam; i.e. extremities or head) *Use of iterative reconstruction technique DLP: 656 mGy-cm FINDINGS: Moderate diffuse commensurate prominence of ventricles and sulci is noted. Mild subcortical and periventricular white matter patchy hypodensities are visualized. No intracranial hemorrhage, tumors or acute infarcts noted. Segmental calcific atherosclerosis of the cavernous portions of the internal carotid arteries. Calcific atherosclerosis of the intradural segments of the vertebral arteries. Bilateral ocular lens extractions. Hypoplastic mastoid air cells. No mastoid or middle ear cavity effusions. Mild mucosal thickening within the maxillary sinuses. CT/CT head/brain wo IV con IMPRESSION: 1. No acute intracranial abnormalities. 2. Mild white matter chronic small vessel ischemic changes.
[2022-10-13 18:29] VITALS: BP 146/83; PULSE 66; RESP 20; TEMP 36.6; O2SAT 96; BMI 27.3
--- NOTE | 2022-10-13 18:29 | ED_ITS ---
HPI - Dizziness General Chief Complaint: Dizziness <Bhakti Cunningham NP - Last Filed: 10/13/22 18:31> Stated Complaint: Dizziness <Bhakti Cunningham NP - Last Filed: 10/13/22 18:31> Time Seen by Provider: 10/13/22 23:51 <Bhakti Cunningham NP - Last Filed: 10/13/22 18:31> Source: patient <Beto Wilkins MD - Last Filed: 10/14/22 02:08> Mode of arrival: ambulatory <Beto Wilkins MD - Last Filed: 10/14/22 02:08> Limitations: no limitations <Beto Wilkins MD - Last Filed: 10/14/22 02:08> History of Present Illness HPI Narrative: Patient with hx of anxiety, hypertension, arthritis in comes here for increased her dizziness feeling for last 2 weeks which increases on head movements patient feel nauseated sometimes an off balance patient never had similar complaints in the past no headache no fever no chills no speech problem no focal deficit patient complaining of mild right temporal area headache off and on no tinnitus or ear pain <Beto Wilkins MD - Last Filed: 10/14/22 02:08> Related Data Home Medications: Home Medications Medication Instructions Recorded Confirmed calcium cit 250 mg-mag 40 mg-D3 1 tab PO DAILY 09/04/20 02/16/22 125 unit-zinc 3.75 mg-endoscopy rn-kd tablet (Calcium Citrate Plus) fexofenadine 180 mg tablet 180 mg PO DAILY 09/04/20 02/16/22 (Marisa Allergy) multivitamin 1 tab PO DAILY 09/04/20 02/16/22 prednisolone acetate 1 % eye 2 drp ophthalmic (eye) BID 09/04/20 02/16/22 drops,suspension vitamin B complex (B 1 tab PO DAILY 09/04/20 02/16/22 Complex-Vitamin B12 tablet) Previous Rx's Medication Instructions Recorded CMF Bone Stimulator #1 ea 10/09/20 hydrochlorothiazide 25 mg tablet 25 mg PO DAILY #90 tabs 10/11/21 montelukast 10 mg tablet 10 mg PO BEDTIME #90 tabs 11/15/21 lidocaine 5 % topical patch 1 patch topical DAILY PRN low back 12/06/21 pain #15 ea pravastatin 10 mg tablet 10 mg PO BEDTIME #90 tabs 12/08/21 metoprolol succinate 25 mg 25 mg PO DAILY #90 tabs 01/10/22 tablet,extended release 24 hr omeprazole 40 mg capsule,delayed 40 mg PO DAILY #90 caps 01/10/22 release naproxen 500 mg tablet 500 mg PO BID PRN pain 10 days #20 03/09/22 tabs ropinirole 3 mg tablet 3 mg PO DAILY #90 tabs 04/05/22 allopurinol 100 mg tablet 100 mg PO DAILY #90 tabs 06/16/22 folic acid 1 mg tablet 1 mg PO DAILY #90 tabs 06/17/22 methotrexate sodium 2.5 mg tablet 15 mg PO QWEEK #24 tabs 08/08/22 tramadol 50 mg tablet 50 mg PO BID PRN pain #60 tabs 08/31/22 prednisone 1 mg tablet 4 mg PO DAILY 30 days #120 tabs 09/19/22 meclizine 25 mg tablet 25 mg PO TID PRN dizziness #20 tabs 10/14/22 <Bhakti Cunningham NP - Last Filed: 10/13/22 18:31> Allergies/Adverse Reactions: Allergies Allergy/AdvReac Type Severity Reaction Status Date / Time alendronate sodium Allergy Severe ANAPHYLAXIS Verified 08/08/22 20:36 [From FOSAMAX] lisinopril [LISINOPRIL] Allergy Severe ANAPHYLAXIS, Verified 08/08/22 20:36 cough clarithromycin Allergy Intermediate CONFUSION, Verified 08/08/22 20:36 [CLARITHROMYCIN] sores on tongue, dry mouth simvastatin [SIMVASTATIN] Allergy Mild DRY Verified 08/08/22 20:36 THROAT, achy, confusion <Bhakti Cunningham NP - Last Filed: 10/13/22 18:31> Review of Systems Review of Systems: Yes all other systems are reviewed and are negative <Beto Wilkins MD - Last Filed: 10/14/22 02:08> [facility] Past Medical History Medical History: Medical History Anxiety and depression Asthma Fracture of 5th metatarsal Fracture of fifth metatarsal bone of right foot GERD (gastroesophageal reflux disease) Gout High cholesterol Hypercholesterolemia Hypergammaglobulinemia Hypertension Hypertension Lumbar degenerative disc disease Nondisplaced fracture of fifth metatarsal bone, left foot, subsequent encounter for fracture with nonunion Osteoarthritis Osteoarthritis of carpometacarpal (CMC) joint of right thumb Osteoporosis Overweight (BMI 25.0-29.9) Peripheral neuropathy Polymyalgia rheumatica Restless leg syndrome Rheumatoid arthritis Seizure disorder Seropositive rheumatoid arthritis Thrush, oral <Bhakti Cunningham NP - Last Filed: 10/13/22 18:31> Surgical History: Surgical History Corneal transplant status H/O left knee surgery History of appendectomy History of arthroplasty of right hip History of cholecystectomy History of corneal transplant History of open reduction and internal fixation (ORIF) procedure History of total abdominal hysterectomy <Bhakti Cunningham NP - Last Filed: 10/13/22 18:31> Family History Family History: Family History Father CVD (cardiovascular disease) Mother No problems noted. <Bhakti Cunningham NP - Last Filed: 10/13/22 18:31> Social History Social History: Social History Housing: House Alcohol intake: current Alcohol intake frequency: a few times a month Alcohol type: wine Patient Tobacco Use Status: Never used Tobacco e-Cigarette/Vaping Use: Never Used Second Hand Smoke Exposure: No Advance Directives: No Advance Directives Information Provided: No service: No Current occupational status: retired Cognitive needs: No Hearing needs: Yes Vision needs: Yes <Bhakti Cunningham NP - Last Filed: 10/13/22 18:31> Physical Exam Vital Signs: Vital Signs: Last Vital Signs Temp 97.9 F 10/13/22 18:29 Pulse 66 10/13/22 18:29 Resp 20 10/13/22 18:29 BP 146/83 H 10/13/22 18:29 Pulse Ox 96 10/13/22 18:29 O2 Del Method 10/13/22 18:29 BMI result Body Mass Index 27.3 <Bhakti Cunningham NP - Last Filed: 10/13/22 18:31> Vital Signs: Last Vital Signs Temp 97.9 F 10/13/22 18:29 Pulse 66 10/13/22 18:29 Resp 20 10/13/22 18:29 BP 146/83 H 10/13/22 18:29 Pulse Ox 96 10/13/22 18:29 O2 Del Method 10/13/22 18:29 BMI result Body Mass Index 27.3 <Beto Wilkins MD - Last Filed: 10/14/22 02:08> Appearance: Alert. Oriented X3. No acute distress. Eyes: PERRLA, No Nystagmus ENT: Pharynx normal. Oral Mucosa moist Neck: Normal inspection. Neck supple. CVS: Normal heart rate and rhythm. Pulses normal. Respiratory: No respiratory distress. Equal air entry bilateral, no wheezin g/rales/rhonchi Abdomen: Soft and nontender. Bowel sounds are present, no mass palpable, no CVA tenderness Skin: Skin warm and dry. Normal skin color. Normal skin turgor. Extremities: No lower extremity edema. No calf tenderness Neuro: Oriented X 3. No motor deficit. No sensory deficit.No cerebellar signs , cranial nerves II-XII intact <Beto Wilkins MD - Last Filed: 10/14/22 02:08> Course Course Course Narrative: This is rapid medical exam. Deferred additional HPI, review of systems, physical exam to primary provider. 82 yo female w/ past medical history of anxiety, depression, asthma, GERD, gout, HLD, RA, HTN who presents with intermittent dizziness over the last few weeks which is worsened with position changes. +nausea. Will check labs, EKG, COVID screen. VSS <Bhakti Cunningham NP - Last Filed: 18:31> Medications Administered Discontinued Medications Generic Name Dose Route Start Last Admin Trade Name Freq PRN Reason Stop Dose Admin Meclizine HCl 25 mg 10/14/22 00:20 10/14/22 00:30 Meclizine Hcl 25 Mg Tablet PO 10/14/22 00:21 25 mg ONCE ONE Administration <Bhakti uCnningham NP - Last Filed: 10/13/22 18:31> Medications Administered Discontinued Medications Generic Name Dose Route Start Last Admin Trade Name Freq PRN Reason Stop Dose Admin Meclizine HCl 25 mg 10/14/22 00:20 12/09/22 00:30 Meclizine Hcl 25 Mg Tablet PO 10/14/22 00:21 25 mg ONCE ONE Administration <Beto Wilkins MD - Last Filed: 10/14/22 02:08> Medical Decision Making Medical Decision Making [facility] Narrative: Patient clinically with benign positional vertigo no signs of central cause for vertigo , will get ct head, Rx meclizine, labs are stable [address] head is negative for acute patient feeling much better after meclizine <Beto Wilkins MD - Last Filed: 10/14/22 02:08> Differential Diagnoses: Differential diagnosis (Vertebrobasilar insufficiency/benign positional vertigo/cerebellar stroke/cardiac arrhythmias/hypotension) <Beto Wilkins MD - Last Filed: 10/14/22 02:08> Lab Attestation: I reviewed the patient's lab results. <Beto Wilkins MD - Last Filed: 10/14/22 02:08> Discharge Plan Discharge Clinical Impression: Benign paroxysmal positional vertigo <Bhakti Cunningham NP - Last Filed: 10/13/22 18:31> Patient Disposition: Home, Self-Care <Bhakti Cunningham NP - Last Filed: 10/13/22 18:31> Instructions: Benign Paroxysmal Positional Vertigo (ED) <Bhakti Cunningham NP - Last Filed: 10/13/22 18:31> Additional Instructions: Take meclizine 1 tablet every 8 hours as needed for severe dizziness Care and cautions as advised Follow-up with PCP if not better <Bhakti Cunningham NP - Last Filed: 10/13/22 18:31> Prescriptions: New meclizine 25 mg tablet 25 mg PO TID PRN (Reason: dizziness) Qty: 20 0RF No Action hydrochlorothiazide 25 mg tablet 25 mg PO DAILY Qty: 90 3RF montelukast 10 mg tablet 10 mg PO BEDTIME Qty: 90 2RF pravastatin 10 mg tablet 10 mg PO BEDTIME Qty: 90 2RF metoprolol succinate 25 mg tablet extended release 24 hr 25 mg PO DAILY Qty: 90 3RF omeprazole 40 mg capsule,delayed release(DR/EC) 40 mg PO DAILY Qty: 90 3RF ropinirole 3 mg tablet 3 mg PO DAILY Qty: 90 2RF allopurinol 100 mg tablet 100 mg PO DAILY Qty: 90 3RF folic acid 1 mg tablet 1 mg PO DAILY Qty: 90 2RF tramadol 50 mg tablet 50 mg PO BID PRN (Reason: pain) Qty: 60 0RF prednisone 1 mg tablet 4 mg PO DAILY 30 Days Qty: 120 2RF naproxen 500 mg tablet 500 mg PO BID PRN (Reason: pain) 10 Days Qty: 20 0RF fexofenadine [Marisa Allergy] 180 mg tablet 180 mg PO DAILY prednisolone acetate 1 % drops,suspension 2 drp ophthalmic (eye) BID multivitamin Tablet 1 tab PO DAILY vitamin B complex [B Complex-Vitamin B12] Tablet 1 tab PO DAILY Calcium Citrate Plus [id number] jq-bw-vjwo-mg tablet 1 tab PO DAILY lidocaine 5 % adhesive patch,medicated 1 patch topical DAILY PRN (Reason: low back pain) Qty: 15 0RF Rx Instructions: leave on most painful area for up to 12 hrs (DME) CMF Bone Stimulator See Rx Instructions .Route .MEDSUPPLY Qty: 1 0RF Rx Instructions: As directed methotrexate sodium 2.5 mg tablet 15 mg PO QWEEK Qty: 24 1RF <Bhakti Cunningham NP - Last Filed: 10/13/22 18:31>
--- NOTE | 2022-10-13 18:31 | ECG_ITS ---
Test Reason : dizziness Blood Pressure : / mmHG Vent. Rate : 064 BPM Atrial Rate : 064 BPM P-R Int : 176 ms QRS Dur : 078 ms QT Int : 418 ms P-R-T Axes : 051 036 050 degrees QTc Int : 431 ms Sinus rhythm with occasional Premature ventricular complexes Otherwise normal ECG When compared with ECG of 23-JUN-2019 08:23, Premature ventricular complexes are now Present Vent. rate has decreased BY 44 BPM Referred By: Bhakti Cunningham Electronically Signed By:MINNA CARDONA MD
[2022-10-13 19:52] LABS: Basophils Absolute Auto 0.1 X10*3/uL (0.0-0.2); Basophils Percent Auto 0.6 % (0-2); Eosinophils Absolute Auto 0.2 X10*3/uL (0.0-0.4); Eosinophils Percent Auto 2.2 % (0-4); Hematocrit 36.9 % (37.0-47.0); Hemoglobin 12.3 g/dl (12.0-16.0); Imm Gran Abs Auto 0.05 X10*3/uL (0.00-0.03); Imm Gran Pct Auto 0.6 % (0.0-0.4); Lymphocytes Absolute Auto 2.4 X10*3/uL (1.2-4.9); MANUAL DIFF FLAG NO; Mean Corpuscular HGB Conc 33.3 g/dl (31.0-35.0); Mean Platelet Volume 8.9 fL (9.4-12.3); Monocytes Absolute Auto 0.7 X10*3/uL (0.1-1.2); Monocytes Percent Auto 8.5 % (2-11); Neutrophils Absolute Auto 4.9 x10*3/uL (2.0-8.3); Neutrophils Percent Auto 59.1 % (45-73); Platelet Count 271 X10*3/uL (160-400); Red Cell Distribution Width 13.7 % (11.0-16.0); White Blood Count 8.4 X10*3/uL (4.8-10.8)
[2022-10-13 20:07] LABS: Alanine Aminotransferase 17 U/L (0-31); Albumin Level 3.9 g/dL (3.5-5.0); Alkaline Phosphatase 96 U/L (39-117); Anion Gap 13 (12-20); Aspartate Amino Transferase 23 U/L (5-31); Bilirubin Direct < 0.2 mg/dL (0.0-0.5); Bilirubin Total 0.3 mg/dL (0.0-1.0); Blood Urea Nitrogen 16 mg/dL (9-16); Calcium 9.4 mg/dL (8.4-10.2); Carbon Dioxide 24 mmol/L (22-29); Chloride 104 mmol/L (96-108); Creatinine Clr Calc Pharmacy 58.2; Estimated Glomerular Filt Rate > 60; Glucose Random 104 mg/dL (60-115); Magnesium 1.9 mg/dL (1.6-2.6); Potassium 3.5 mmol/L (3.3-5.1); Sodium 137 mmol/L (135-145); Total Protein 6.9 g/dL (6.5-8.0)
[2022-10-13 20:10] LABS: COVID-19 Test Negative (Negative); IDNOW Serial# BCCEAD1C
[2022-10-13 20:19] LABS: Troponin-I High Sensitivity < 3.5 ng/L (<3.5-17.0)
[2022-10-14] MEDS: Meclizine HCl 25 MG TABLET PO (00:30)
[2022-10-14 02:20] VITALS: BP 156/66; PULSE 69; RESP 16; TEMP 36.6; O2SAT 96
== END 2022-10-14 02:36 | disposition home or self-care (01) ==
PROVIDERS: Nurse Practitioner Family; Emergency Provider Internal Medicine; PCP Internal Medicine
DX: H81.13 Benign paroxysmal vertigo, bilateral (principal); I10 Essential (primary) hypertension; R51.9 Headache, unspecified; Z20.822 Contact with and (suspected) exposure to COVID-19; Z79.899 Other long term (current) drug therapy
CPT/HCPCS: 70450; 80048; 80076; 83735; 84484; 85025; 87635; 93005; 99284

== ENCOUNTER → 2022-10-19 12:51 | Outpatient (BNVA) | payer MEDICARE, OTHER, SELFPAY | PROVIDERS: PCP Internal Medicine; Visit Provider Nurse Practitioner Family | DX: M35.3 Polymyalgia rheumatica (principal); M05.9 Rheumatoid arthritis with rheumatoid factor, unspecified; M81.0 Age-related osteoporosis without current pathological fracture; M1A.0710 Idiopathic chronic gout, right ankle and foot, without tophus (tophi); M51.36 Other intervertebral disc degeneration, lumbar region | CPT/HCPCS: 99212 ==

== ENCOUNTER → 2022-11-14 14:19 | Outpatient (BNVA) | payer MEDICARE, OTHER, SELFPAY | PROVIDERS: PCP Internal Medicine; Visit Provider Anesthesiology | DX: M06.9 Rheumatoid arthritis, unspecified (principal); M47.816 Spondylosis without myelopathy or radiculopathy, lumbar region; M46.1 Sacroiliitis, not elsewhere classified; M53.3 Sacrococcygeal disorders, not elsewhere classified; G89.4 Chronic pain syndrome | CPT/HCPCS: 99202 ==

== ENCOUNTER 2022-11-28 12:59 | Outpatient (REF) | payer MEDICARE, OTHER, SELFPAY ==
--- NOTE | ~2022-11-28 | XR_ITS ---
EXAMINATION: XR SHOULDER, LEFT XR SHOULDER, RIGHT CLINICAL INFORMATION: Pain COMPARISON: None TECHNIQUE: 4 views of each shoulder FINDINGS: Left shoulder: No fracture or dislocation. The glenohumeral joint is appropriately aligned. Severe joint space narrowing with [id number] appearance. Small marginal osteophytes inferiorly. The acromioclavicular joint is intact. The visualized lung is clear. Right shoulder: No fracture or dislocation. The glenohumeral joint is appropriately aligned. There is severe joint space narrowing with eana-dc-lgnn appearance. Small inferior marginal osteophytes. The acromioclavicular joint is intact. The visualized lung is clear. XR/XR shoulder LT min 2V IMPRESSION: Severe joint space narrowing of both glenohumeral joints with [id number] appearance.
--- NOTE | ~2022-11-28 | XR_ITS ---
EXAMINATION: XR SHOULDER, LEFT XR SHOULDER, RIGHT CLINICAL INFORMATION: Pain COMPARISON: None TECHNIQUE: 4 views of each shoulder FINDINGS: Left shoulder: No fracture or dislocation. The glenohumeral joint is appropriately aligned. Severe joint space narrowing with ssvk-wp-gmyv appearance. Small marginal osteophytes inferiorly. The acromioclavicular joint is intact. The visualized lung is clear. Right shoulder: No fracture or dislocation. The glenohumeral joint is appropriately aligned. There is severe joint space narrowing with vefh-ms-pytw appearance. Small inferior marginal osteophytes. The acromioclavicular joint is intact. The visualized lung is clear. XR/XR shoulder RT min 2V IMPRESSION: Severe joint space narrowing of both glenohumeral joints with bhpc-bu-yvle appearance.
[2022-11-28 14:08] LABS: C Reactive Protein 0.43 mg/dL (< or = 0.50); Uric Acid 4.9 mg/dL (2.4-5.7)
[2022-11-28 14:25] LABS: Erythrocyte Sedimentation Rate 26 MM/HR (0-20)
== END 2022-11-28 13:00 | disposition home or self-care (01) ==
LOC: HO.XRAY 12:59
PROVIDERS: PCP Internal Medicine; Visit Provider Nurse Practitioner Family
DX: M25.511 Pain in right shoulder (principal); M25.512 Pain in left shoulder; M35.3 Polymyalgia rheumatica; M10.9 Gout, unspecified
CPT/HCPCS: 36415; 73030; 84550; 85652; 86140

== ENCOUNTER 2022-11-30 11:03 | Outpatient (REF) | payer MEDICARE, OTHER, SELFPAY ==
--- NOTE | ~2022-11-30 | MR_ITS ---
EXAMINATION: MR LUMBAR SPINE WITHOUT CONTRAST CLINICAL INFORMATION: Chronic pain syndrome. COMPARISON: MRI 03/06/2013. X-ray lumbar spine 08/19/2021. TECHNIQUE: MRI of the lumbar spine was obtained using routine sequences without contrast. FINDINGS: VERTEBRAL BODIES AND PARASPINAL STRUCTURES: For the purposes of this study, the lowermost well-formed vertebral body is labeled as L5, with the lowermost well-formed disc space labeled as L5-S1. This is in keeping with the nomenclature used on the previous MRI of 03/06/2013. Vertebral body heights are maintained. No evidence of acute fracture. No suspicious bony lesions identified. There is grade 1 anterolisthesis of L3 on L4, and L4 on L5. This appears similar as compared to previous. There is multilevel diffuse disc desiccation. Multilevel disc height loss, with more prominent changes of severe disc height loss at L2-L3, moderate-severe disc height loss L3-L4 and L4-L5. Interval worsening as compared to previous. The visualized aorta is normal in caliber. No adenopathy. Paraspinal muscle bulk is symmetric. There is a 5.8 cm T2 bright cystic focus partially imaged superior to the right kidney. Additional small cysts seen in the right kidney. CONUS MEDULLARIS AND CAUDA EQUINA: The conus demonstrates normal signal terminating at L1-L2. FINDINGS: T10-T11. No significant disc bulge, central canal or foramen stenosis. T12-L1: Diffuse disc bulge with a superimposed left paracentral and foraminal disc protrusion. Ligamentum flavum hypertrophy. Minimal central canal narrowing. No significant foraminal stenosis. Findings new from previous. L1-L2: Mild disc bulge in bilateral foraminal regions. Bilateral facet arthropathy. Ligamentum flavum hypertrophy. No significant central canal stenosis is seen. Mild left neural foramen narrowing. Findings new from previous. L2-L3: Severe disc degeneration, Modic type I endplate signal. Diffuse annular disc bulge with a probable superimposed foraminal protrusion, left greater than right. Bilateral facet arthropathy. Ligamentum flavum hypertrophy. Severe central canal stenosis. Moderate left foraminal stenosis. Mild left and moderate right foraminal stenosis. Interval worsening from previous. L3-L4: Moderate-severe disc degeneration. Diffuse annular disc bulge. There is posterior unroofing of the disc, with probable superimposed left greater than right foraminal disc protrusion. Advanced bilateral facet arthropathy. Ligamentum flavum hypertrophy. Severe central canal stenosis. Bilateral lateral recess narrowing. Severe right foramen, moderate left neural foramen stenosis. Interval worsening from previous. L4-L5: Moderate-severe disc degeneration. Diffuse annular disc bulge. Superimposed bilateral foraminal disc protrusion. Advanced bilateral facet arthropathy. Ligamentum flavum hypertrophy. Moderate-severe central canal stenosis. Bilateral lateral recess narrowing. Bilateral mild neural foramen narrowing. Interval worsening from previous. L5-S1: Mild broad-based posterior disc bulge. Bilateral facet arthropathy. No central canal or foramen stenosis. MR/MR lumbar spine wo con IMPRESSION: Multilevel spondyloarthropathy of the lumbosacral spine with varying degrees of central canal and foraminal stenosis, as detailed above by level. Significant interval progression of disease as compared to the prior MRI. Findings include: Multifactorial changes resulting in severe central canal stenosis at L2-L3, L3-L4, L4-L5, as detailed above. At L2-L3, severe disc degeneration. Diffuse disc bulge with superimposed foraminal protrusions. Severe central canal stenosis. Moderate left foraminal stenosis. At L3-L4, moderate-severe disc degeneration. Unroofing of the disc and probable superimposed foraminal protrusions. Severe central canal stenosis. Severe right and moderate left neural foramen stenosis. At L4-L5, moderate-severe disc degeneration. Diffuse disc bulge with bilateral foraminal protrusions. Moderate-severe central canal stenosis. Right renal cysts.
== END 2022-11-30 11:04 | disposition home or self-care (01) ==
LOC: HO.MRI 11:03
PROVIDERS: PCP Internal Medicine; Visit Provider Anesthesiology
DX: G89.4 Chronic pain syndrome (principal); M47.816 Spondylosis without myelopathy or radiculopathy, lumbar region; M53.3 Sacrococcygeal disorders, not elsewhere classified; M46.1 Sacroiliitis, not elsewhere classified; M06.9 Rheumatoid arthritis, unspecified
CPT/HCPCS: 72148

== ENCOUNTER → 2022-12-05 14:19 | Outpatient (BNVA) | payer MEDICARE, OTHER, SELFPAY | PROVIDERS: PCP Internal Medicine; Visit Provider Nurse Practitioner Family | DX: M05.9 Rheumatoid arthritis with rheumatoid factor, unspecified (principal); M35.3 Polymyalgia rheumatica; M81.0 Age-related osteoporosis without current pathological fracture; M1A.0710 Idiopathic chronic gout, right ankle and foot, without tophus (tophi); M51.36 Other intervertebral disc degeneration, lumbar region | CPT/HCPCS: 99212 ==

== ENCOUNTER 2022-12-06 06:17 | Outpatient (REF) | payer MEDICARE, OTHER, SELFPAY ==
--- NOTE | ~2022-12-06 | FL_ITS ---
EXAMINATION: XR FLUOROSCOPY WITH IMAGES CLINICAL INFORMATION: Spondylosis without myelopathy or radiculopathy. COMPARISON: None. TECHNIQUE: Fluoroscopy Supervised By: Clarissa. Fluoroscopy Time: 0.8 minutes. Cumulative Dose: 14.5 mGy. DAP: 3.96 Gycm2. Images: 8. FINDINGS: There are needles positioned adjacent to S1, L5, L4 and L3 pedicles with contrast opacifying the soft tissues. No lytic or sclerotic process seen. The paravertebral soft tissues are normal. SI joints are symmetrical and normal. Mild degenerative disc changes are seen in lumbar spine. FL/FL guidance in treatment room IMPRESSION: Fluoroscopy guidance was provided to referrer for pain management.
== END 2022-12-06 06:18 | disposition home or self-care (01) ==
LOC: CF 06:17
PROVIDERS: Visit Provider Anesthesiology
DX: M47.816 Spondylosis without myelopathy or radiculopathy, lumbar region (principal); G89.4 Chronic pain syndrome
CPT/HCPCS: 64493; 64494

== ENCOUNTER 2022-12-13 06:12 | Outpatient (REF) | payer MEDICARE, OTHER, SELFPAY ==
--- NOTE | ~2022-12-13 | FL_ITS ---
EXAMINATION: XR FLUOROSCOPY WITH IMAGES CLINICAL INFORMATION: Sacrococcygeal disorders. COMPARISON: 07/20/2022 TECHNIQUE: Fluoroscopy Supervised By: Dr. Sotero Swann. Fluoroscopy Time: 0.3 minutes. Cumulative Dose: 6.49 mGy. DAP: 1.76 Gycm2. Images: 2. FINDINGS: Two images provided demonstrating a needle and contrast overlying both sacroiliac joints. FL/FL guidance in treatment room IMPRESSION: Intraoperative fluoroscopy for pain management procedure.
== END 2022-12-13 06:13 | disposition home or self-care (01) ==
LOC: CF 06:12
PROVIDERS: Visit Provider Anesthesiology
DX: M53.3 Sacrococcygeal disorders, not elsewhere classified (principal); M46.1 Sacroiliitis, not elsewhere classified
CPT/HCPCS: 27096

== ENCOUNTER → 2022-12-15 08:09 | Outpatient (BNVA) | payer MEDICARE, OTHER, SELFPAY | PROVIDERS: PCP Internal Medicine; Visit Provider Anesthesiology | DX: M06.9 Rheumatoid arthritis, unspecified (principal); M47.816 Spondylosis without myelopathy or radiculopathy, lumbar region; M46.1 Sacroiliitis, not elsewhere classified; M53.3 Sacrococcygeal disorders, not elsewhere classified; G89.4 Chronic pain syndrome | CPT/HCPCS: Q3014 ==

== ENCOUNTER 2023-01-10 06:41 | Outpatient (REF) | payer MEDICARE, OTHER, SELFPAY ==
--- NOTE | ~2023-01-10 | FL_ITS ---
EXAMINATION: XR FLUOROSCOPY WITH IMAGES CLINICAL INFORMATION: Bilateral SI joint pain. COMPARISON: Fluoroscopy and SI joint injection 12/13/2022. TECHNIQUE: Fluoroscopy Supervised By: Dr. Sotero Swann. Fluoroscopy Time: 0.3 minutes. Cumulative Dose: 4.71 mGy. DAP: 1.28 Gy-cm2. Images: 2. FINDINGS: There are 2 digital images obtained with needle positioned over the SI joints and contrast opacifying the adjacent soft tissues. The SI joints space is maintained normal. FL/FL guidance in treatment room IMPRESSION: Fluoroscopy guidance was provided to referring physician for SI joint injection.
== END 2023-01-10 06:42 | disposition home or self-care (01) ==
LOC: CF 06:41
PROVIDERS: Visit Provider Anesthesiology
DX: M53.3 Sacrococcygeal disorders, not elsewhere classified (principal); M46.1 Sacroiliitis, not elsewhere classified
CPT/HCPCS: 27096; J3301

== ENCOUNTER 2023-01-23 13:59 | Outpatient (REF) | payer MEDICARE, OTHER, SELFPAY ==
[2023-01-23 14:18] LABS: MANUAL DIFF FLAG NO
[2023-01-23 15:23] LABS: Basophils Absolute Auto 0.1 X10*3/uL (0.0-0.2); Basophils Percent Auto 0.4 % (0-2); Eosinophils Absolute Auto 0.1 X10*3/uL (0.0-0.4); Eosinophils Percent Auto 0.9 % (0-4); Hematocrit 41.3 % (37.0-47.0); Imm Gran Abs Auto 0.16 X10*3/uL (0.00-0.03); Imm Gran Pct Auto 1.2 % (0.0-0.4); Lymphocytes Absolute Auto 2.3 X10*3/uL (1.2-4.9); Lymphocytes Percent Auto 17.9 % (20-40); Mean Corpuscular HGB Conc 31.5 g/dl (31.0-35.0); Mean Corpuscular Hemoglobin 29.7 pg (27.0-33.0); Mean Corpuscular Volume 94.5 fL (80.0-98.0); Mean Platelet Volume 9.9 fL (9.4-12.3); Monocytes Absolute Auto 0.7 X10*3/uL (0.1-1.2); Monocytes Percent Auto 5.1 % (2-11); Neutrophils Absolute Auto 9.6 x10*3/uL (2.0-8.3); Neutrophils Percent Auto 74.5 % (45-73); Platelet Count 274 X10*3/uL (160-400); Red Blood Count 4.37 X10*6/uL (4.20-5.50); Red Cell Distribution Width 13.8 % (11.0-16.0); White Blood Count 12.9 X10*3/uL (4.8-10.8)
[2023-01-23 16:05] LABS: Alanine Aminotransferase 18 U/L (0-31); Aspartate Amino Transferase 21 U/L (5-31); C Reactive Protein 0.15 mg/dL (< or = 0.50); Estimated Glomerular Filt Rate > 60
[2023-01-23 17:49] LABS: Erythrocyte Sedimentation Rate 20 MM/HR (0-20)
== END 2023-01-23 14:00 | disposition home or self-care (01) ==
LOC: HO.LAB 13:59
PROVIDERS: PCP Internal Medicine; Visit Provider Nurse Practitioner Family
DX: M05.9 Rheumatoid arthritis with rheumatoid factor, unspecified (principal); Z79.899 Other long term (current) drug therapy
CPT/HCPCS: 36415; 82565; 84450; 84460; 85025; 85652; 86140

== ENCOUNTER → 2023-02-13 12:52 | Outpatient (BNVA) | payer MEDICARE, OTHER, SELFPAY | PROVIDERS: PCP Internal Medicine; Visit Provider Anesthesiology | DX: M06.9 Rheumatoid arthritis, unspecified (principal); M47.816 Spondylosis without myelopathy or radiculopathy, lumbar region; M46.1 Sacroiliitis, not elsewhere classified; M53.3 Sacrococcygeal disorders, not elsewhere classified; G89.4 Chronic pain syndrome | CPT/HCPCS: 99212 ==

== ENCOUNTER → 2023-02-15 14:50 | Outpatient (BNVA) | payer MEDICARE, OTHER, SELFPAY | PROVIDERS: PCP Internal Medicine; Visit Provider Nurse Practitioner Family | DX: M05.9 Rheumatoid arthritis with rheumatoid factor, unspecified (principal); M35.3 Polymyalgia rheumatica; M81.0 Age-related osteoporosis without current pathological fracture; M1A.0710 Idiopathic chronic gout, right ankle and foot, without tophus (tophi); M51.36 Other intervertebral disc degeneration, lumbar region; M19.011 Primary osteoarthritis, right shoulder; M19.012 Primary osteoarthritis, left shoulder | CPT/HCPCS: 99212 ==

== ENCOUNTER 2023-02-21 09:39 | Emergency (ER) | payer MEDICARE, OTHER, SELFPAY ==
--- NOTE | ~2023-02-21 | XR_ITS ---
EXAMINATION: XR CHEST CLINICAL INFORMATION: Chest pain COMPARISON: None chest wall 821 TECHNIQUE: Frontal view of the chest was obtained. FINDINGS: No significant abnormality is noted involving the heart, lungs, mediastinum, bony thorax or soft tissues. XR/XR chest 1V IMPRESSION: Unremarkable chest examination.
--- NOTE | 2023-02-21 09:41 | ECG_ITS ---
Test Reason : CHEST PAIN Blood Pressure : / mmHG Vent. Rate : 074 BPM Atrial Rate : 074 BPM P-R Int : 170 ms QRS Dur : 074 ms QT Int : 372 ms P-R-T Axes : 044 019 052 degrees QTc Int : 412 ms Normal sinus rhythm Possible Left atrial enlargement Low voltage QRS Borderline ECG When compared with ECG of 13-OCT-2022 19:36, Premature ventricular complexes are no longer Present Referred By: Jaelyn Daly Electronically Signed By:DEDRICK FOX
[2023-02-21 10:04] LABS: MANUAL DIFF FLAG NO
[2023-02-21 10:12] LABS: Basophils Absolute Auto 0.1 X10*3/uL (0.0-0.2); Basophils Percent Auto 0.7 % (0-2); Eosinophils Absolute Auto 0.1 X10*3/uL (0.0-0.4); Eosinophils Percent Auto 1.6 % (0-4); Hematocrit 42.5 % (37.0-47.0); Hemoglobin 13.7 g/dl (12.0-16.0); Imm Gran Abs Auto 0.07 X10*3/uL (0.00-0.03); Imm Gran Pct Auto 0.8 % (0.0-0.4); Lymphocytes Percent Auto 23.5 % (20-40); Mean Corpuscular HGB Conc 32.2 g/dl (31.0-35.0); Mean Platelet Volume 9.2 fL (9.4-12.3); Monocytes Absolute Auto 0.5 X10*3/uL (0.1-1.2); Monocytes Percent Auto 5.2 % (2-11); Neutrophils Absolute Auto 5.9 x10*3/uL (2.0-8.3); Neutrophils Percent Auto 68.2 % (45-73); Platelet Count 270 X10*3/uL (160-400); Red Blood Count 4.57 X10*6/uL (4.20-5.50); Red Cell Distribution Width 13.5 % (11.0-16.0); White Blood Count 8.6 X10*3/uL (4.8-10.8)
[2023-02-21 10:21] LABS: INTERNATIONAL NORM RATIO 0.9 (0.9-1.1); Prothrombin Time 9.8 SEC (10.0-13.1)
[2023-02-21 10:24] LABS: Partial Thromboplastin Time 31.8 SEC (26.0-36.4)
[2023-02-21 10:33] LABS: Alanine Aminotransferase 22 U/L (0-31); Albumin Level 3.8 g/dL (3.5-5.0); Alkaline Phosphatase 91 U/L (39-117); Anion Gap 13 (12-20); Aspartate Amino Transferase 25 U/L (5-31); Bilirubin Direct 0.2 mg/dL (0.0-0.5); Bilirubin Total 0.8 mg/dL (0.0-1.0); Blood Urea Nitrogen 13 mg/dL (9-16); Calcium 9.3 mg/dL (8.4-10.2); Carbon Dioxide 26 mmol/L (22-29); Chloride 103 mmol/L (96-108); Estimated Glomerular Filt Rate > 60; Glucose Random 113 mg/dL (60-115); Magnesium 1.9 mg/dL (1.6-2.6); Potassium 3.8 mmol/L (3.3-5.1); Sodium 138 mmol/L (135-145); Total Protein 6.7 g/dL (6.5-8.0)
[2023-02-21 10:39] LABS: B Type Natriuretic Peptide 36 pg/mL (<100)
[2023-02-21 10:43] LABS: Troponin-I High Sensitivity < 2.7 ng/L (<3.5-17.0)
--- NOTE | 2023-02-21 11:05 | ED_ITS ---
HPI - Chest Pain General Chief Complaint: Chest Pain Stated Complaint: Chest Neck Back Pain Time Seen by Provider: 02/21/23 12:59 Related Data Home Medications Medication Instructions Recorded Confirmed calcium cit 250 mg-mag 40 mg-D3 1 tab PO DAILY 09/04/20 02/16/23 125 unit-zinc 3.75 mg-scleroscope tester-kd tablet (Calcium Citrate Plus) fexofenadine 180 mg tablet 180 mg PO DAILY 09/04/20 02/16/23 (Marisa Allergy) multivitamin 1 tab PO DAILY 09/04/20 02/16/23 prednisolone acetate 1 % eye 2 drp ophthalmic (eye) BID 09/04/20 02/16/23 drops,suspension vitamin B complex (B 1 tab PO DAILY 09/04/20 02/16/23 Complex-Vitamin B12 tablet) Previous Rx's Medication Instructions Recorded [facility] Bone Stimulator #1 ea 10/09/20 naproxen 500 mg tablet 500 mg PO BID PRN pain 10 days #20 03/09/22 tabs allopurinol 100 mg tablet 100 mg PO DAILY #90 tabs 06/16/22 folic acid 1 mg tablet 1 mg PO DAILY #90 tabs 06/17/22 hydrochlorothiazide 25 mg tablet 25 mg PO DAILY #90 tabs 10/23/22 pravastatin 10 mg tablet 10 mg PO BEDTIME #90 tabs 10/23/22 montelukast 10 mg tablet 10 mg PO BEDTIME #90 tabs 10/24/22 tramadol 50 mg tablet 50 mg PO BID PRN pain #60 tabs 11/15/22 ropinirole 3 mg tablet 3 mg PO DAILY #90 tabs 12/11/22 pantoprazole 40 mg tablet,delayed 40 mg PO DAILY #90 tabs 12/22/22 release meloxicam 15 mg tablet 15 mg PO DAILY #90 tabs 01/12/23 metoprolol succinate 25 mg 25 mg PO DAILY #90 tabs 01/12/23 tablet,extended release 24 hr methotrexate sodium 2.5 mg tablet 15 mg PO QWEEK #24 tabs 02/13/23 prednisone 1 mg tablet 2 mg PO DAILY 30 days #60 tabs 02/15/23 denosumab 60 mg/mL subcutaneous 60 mg subcut [id number] #1 mL 02/21/23 syringe (Prolia) cyclobenzaprine 5 mg tablet 5 mg PO TID PRN muscle spasm #10 02/27/23 tabs oxycodone 5 mg tablet 5 mg PO TID PRN pain #10 tabs 02/27/23 alprazolam 0.25 mg tablet 0.125 mg PO TID PRN anxiety 30 03/01/23 days #30 tabs Allergies Allergy/AdvReac Type Severity Reaction Status Date / Time alendronate sodium Allergy Severe ANAPHYLAXIS Verified 02/16/23 11:48 [From FOSAMAX] lisinopril [LISINOPRIL] Allergy Severe ANAPHYLAXIS, Verified 02/16/23 11:48 cough clarithromycin Allergy Intermediate CONFUSION, Verified 02/16/23 11:48 [CLARITHROMYCIN] sores on tongue, dry mouth simvastatin [SIMVASTATIN] Allergy Mild DRY Verified 02/16/23 11:48 THROAT, achy, confusion PMFSH Past Medical History Medical History Anxiety and depression Asthma Fracture of 5th metatarsal Fracture of fifth metatarsal bone of right foot GERD (gastroesophageal reflux disease) Gout High cholesterol Hypercholesterolemia Hypergammaglobulinemia Hypertension Hypertension Lumbar degenerative disc disease Nondisplaced fracture of fifth metatarsal bone, left foot, subsequent encounter for fracture with nonunion Osteoarthritis Osteoarthritis of carpometacarpal (CMC) joint of right thumb Osteoarthritis of shoulders, bilateral Osteoporosis Overweight (BMI 25.0-29.9) Peripheral neuropathy Polymyalgia rheumatica Restless leg syndrome Rheumatoid arthritis Rheumatoid arthritis Seizure disorder Seropositive rheumatoid arthritis Thrush, oral Surgical History Corneal transplant status H/O left knee surgery History of appendectomy History of arthroplasty of right hip History of cholecystectomy History of corneal transplant History of open reduction and internal fixation (ORIF) procedure History of total abdominal hysterectomy Family History Family History Father CVD (cardiovascular disease) Mother No problems noted. Social History Social History Housing: House Alcohol intake: current Alcohol intake frequency: a few times a month Alcohol type: wine Patient Tobacco Use Status: Never used Tobacco e-Cigarette/Vaping Use: Never Used Second Hand Smoke Exposure: No service: No Current occupational status: retired Cognitive needs: No Hearing needs: Yes Vision needs: Yes Physical Exam Vital Signs: Vital Signs: Last Vital Signs Temp 97.7 F 02/21/23 13:02 Pulse 64 02/21/23 13:02 Resp 16 02/21/23 13:02 BP 154/90 H 02/21/23 13:02 Pulse Ox 98 02/21/23 13:02 O2 Del Method Room Air 02/21/23 13:02 BMI result Body Mass Index 28.1 Course Course Course Narrative: This is an RME: Additional HPI, ROS, PE not included below will be deferred to primary provider. 82-year-old female history of hypertension, hypercholes terolemia, seizure disorder, GERD, hypergammaglobulinemia, gout, peripheral neuropathy presents to the emergency department for evaluation of chest pain, neck pain, back pain that started at approximately 03:00 and has been present ever since. She tells me this pain awoke her from her sleep and is so uncomfortable that kept her up all night. Patient describes a sharp pain in the center of her chest without radiation. She tells me it fluctuates in intensity. Patient appears well on exam. Vital signs stable Plan basic labs, repeat troponin ordered. Medical Decision Making Lab Data 02/21/23 10:00 02/21/23 10:00 Labs: Lab Results 02/21/23 02/21/23 02/21/23 Range/Units 10:00 10:00 10:00 WBC 8.6 (4.8-10.8) X10*3/uL RBC 4.57 (4.20-5.50) X10*6/uL Hgb 13.7 (12.0-16.0) g/dl Hct 42.5 (37.0-47.0) % MCV 93.0 (80.0-98.0) fL MCH 30.0 (27.0-33.0) pg MCHC 32.2 (31.0-35.0) g/dl RDW 13.5 (11.0-16.0) % Plt Count 270 (160-400) X10*3/uL MPV 9.2 L (9.4-12.3) fL Immature Gran % (Auto) 0.8 H (0.0-0.4) % Neut % (Auto) 68.2 (45-73) % Lymph % (Auto) 23.5 (20-40) % Floyd % (Auto) 5.2 (2-11) % Eos % (Auto) 1.6 (0-4) % Baso % (Auto) 0.7 (0-2) % Lymph # (Auto) 2.0 (1.2-4.9) X10*3/uL Floyd # (Auto) 0.5 (0.1-1.2) X10*3/uL Eos # (Auto) 0.1 (0.0-0.4) X10*3/uL Baso # (Auto) 0.1 (0.0-0.2) X10*3/uL Abs Immat Gran (auto) 0.07 H (0.00-0.03) X10*3/uL Absolute Neuts (auto) 5.9 (2.0-8.3) x10*3/uL Absolute Nucleated RBC 0.000 (0.0-0.012) X10*3/uL Nucleated RBC % (auto) 0.0 (0.0-0.2) /100WBC PT 9.8 L (10.0-13.1) SEC INR 0.9 (0.9-1.1) APTT 31.8 (26.0-36.4) SEC Sodium 138 (135-145) mmol/L Potassium 3.8 (3.3-5.1) mmol/L Chloride 103 (96-108) mmol/L Carbon Dioxide 26 (22-29) mmol/L Anion Gap 13 (12-20) BUN 13 (9-16) mg/dL Creatinine 0.84 (0.5-1.4) mg/dL Estim Creat Clear Calc TNP Estimated GFR > 60 Random Glucose 113 (60-115) mg/dL Calcium 9.3 (8.4-10.2) mg/dL Magnesium 1.9 (1.6-2.6) mg/dL Total Bilirubin 0.8 (0.0-1.0) mg/dL Direct Bilirubin 0.2 (0.0-0.5) mg/dL AST 25 (5-31) U/L ALT 22 (0-31) U/L Alkaline Phosphatase 91 (39-117) U/L Troponin I High Sens (<3.5-17.0) ng/L B-Natriuretic Peptide (<100) pg/mL Total Protein 6.7 (6.5-8.0) g/dL Albumin 3.8 (3.5-5.0) g/dL 02/21/23 02/21/23 02/21/23 Range/Units 10:00 10:00 14:37 WBC (4.8-10.8) X10*3/uL RBC (4.20-5.50) X10*6/uL Hgb (12.0-16.0) g/dl Hct (37.0-47.0) % MCV (80.0-98.0) fL MCH (27.0-33.0) pg MCHC (31.0-35.0) g/dl RDW (11.0-16.0) % Plt Count (160-400) X10*3/uL MPV (9.4-12.3) fL Immature Gran % (Auto) (0.0-0.4) % Neut % (Auto) (45-73) % Lymph % (Auto) (20-40) % Floyd % (Auto) (2-11) % Eos % (Auto) (0-4) % Baso % (Auto) (0-2) % Lymph # (Auto) (1.2-4.9) X10*3/uL Floyd # (Auto) (0.1-1.2) X10*3/uL Eos # (Auto) (0.0-0.4) X10*3/uL Baso # (Auto) (0.0-0.2) X10*3/uL Abs Immat Gran (auto) (0.00-0.03) X10*3/uL Absolute Neuts (auto) (2.0-8.3) x10*3/uL Absolute Nucleated RBC (0.0-0.012) X10*3/uL Nucleated RBC % (auto) (0.0-0.2) /100WBC PT (10.0-13.1) SEC INR (0.9-1.1) APTT (26.0-36.4) SEC Sodium (135-145) mmol/L Potassium (3.3-5.1) mmol/L Chloride (96-108) mmol/L Carbon Dioxide (22-29) mmol/L Anion Gap (12-20) BUN (9-16) mg/dL Creatinine (0.5-1.4) mg/dL Estim Creat Clear Calc Estimated GFR Random Glucose (60-115) mg/dL Calcium (8.4-10.2) mg/dL Magnesium (1.6-2.6) mg/dL Total Bilirubin (0.0-1.0) mg/dL Direct Bilirubin (0.0-0.5) mg/dL AST (5-31) U/L ALT (0-31) U/L Alkaline Phosphatase (39-117) U/L Troponin I High Sens < 2.7 < 2.7 (<3.5-17.0) ng/L B-Natriuretic Peptide 36 (<100) pg/mL Total Protein (6.5-8.0) g/dL Albumin (3.5-5.0) g/dL Discharge Plan Discharge Clinical Impression: Chest pain Patient Disposition: Home, Self-Care Instructions: Chest Pain (ED) Prescriptions: No Action allopurinol 100 mg tablet 100 mg PO DAILY Qty: 90 3RF folic acid 1 mg tablet 1 mg PO DAILY Qty: 90 2RF pravastatin 10 mg tablet 10 mg PO BEDTIME Qty: 90 2RF hydrochlorothiazide 25 mg tablet 25 mg PO DAILY Qty: 90 3RF montelukast 10 mg tablet 10 mg PO BEDTIME Qty: 90 2RF tramadol 50 mg tablet 50 mg PO BID PRN (Reason: pain) Qty: 60 1RF ropinirole 3 mg tablet 3 mg PO DAILY Qty: 90 2RF pantoprazole 40 mg tablet,delayed release (DR/EC) 40 mg PO DAILY Qty: 90 3RF Rx Instructions: Take every day except when taking methotrexate metoprolol succinate 25 mg tablet extended release 24 hr 25 mg PO DAILY Qty: 90 3RF meloxicam 15 mg tablet 15 mg PO DAILY Qty: 90 3RF methotrexate sodium 2.5 mg tablet 15 mg PO QWEEK Qty: 24 1RF Prolia 60 mg/mL syringe 60 mg subcut [id number] Qty: 1 1RF alprazolam 0.25 mg tablet 0.125 mg PO TID PRN (Reason: anxiety) 30 Days Qty: 30 2RF naproxen 500 mg tablet 500 mg PO BID PRN (Reason: pain) 10 Days Qty: 20 0RF oxycodone 5 mg tablet 5 mg PO TID PRN (Reason: pain) Qty: 10 0RF Rx Instructions: Partial Fill upon patient request. cyclobenzaprine 5 mg tablet 5 mg PO TID PRN (Reason: muscle spasm) Qty: 10 0RF fexofenadine [Marisa Allergy] 180 mg tablet 180 mg PO DAILY prednisolone acetate 1 % drops,suspension 2 drp ophthalmic (eye) BID multivitamin Tablet 1 tab PO DAILY vitamin B complex [B Complex-Vitamin B12] Tablet 1 tab PO DAILY Calcium Citrate Plus [id number] [id number]-mg tablet 1 tab PO DAILY (DME) [facility] Bone Stimulator See Rx Instructions .Route .MEDSUPPLY Qty: 1 0RF Rx Instructions: As directed prednisone 1 mg tablet 2 mg PO DAILY 30 Days Qty: 60 1RF Referrals: Jhoan Taylor MD [Physician] - 02/23/23 Interventions: ED Discharge Assessment Last Done: 02/21/23 15:52 Discharge Date/Time: 02/21/23 15:52
[2023-02-21 11:54] VITALS: BP 149/61; PULSE 64; RESP 16; TEMP 36.6; O2SAT 96; BMI 28.1
[2023-02-21 13:02] VITALS: BP 154/90; PULSE 64; RESP 16; TEMP 36.5; O2SAT 98
--- NOTE | 2023-02-21 13:07 | PC.NURSE ---
pt AOx3, reporting severe chest pain last night that awoke them. Pain now almost completely resolved, but pt c/o pain in back and neck. pt has Menieres disease and reports spells of dizziness and vomiting 2-3x weekly, though denies current dizziness and nausea. Lung sounds clear, no edema noted. denies SOB. Vitals stable - NSR on monitor. call mota within reach.
--- NOTE | 2023-02-21 13:53 | ED.CHESTPAIN ---
HPI - Chest Pain General Chief Complaint: Chest Pain Stated Complaint: Chest Neck Back Pain Time Seen by Provider: 02/21/23 12:59 History of Present Illness HPI narrative: Patient is an 82-year-old female with a history of rheumatoid arthritis presents today with having chest pain that is mid chest ongoing for approximately 9 hours. Started at approximately 01:00 a.m.. Continue until arrival in the emergency department at around 10:00am. In no coughing or congestion no upper respiratory symptoms. It did radiate to the neck. It is very sharp. Not associated with neuro defect. No diaphoresis. No leg swelling. No history of blood clots in the past. Patient from home. Related Data Home Medications Medication Instructions Recorded Confirmed calcium cit 250 mg-mag 40 mg-D3 1 tab PO DAILY 09/04/20 02/16/23 125 unit-zinc 3.75 mg-endoscopic technician-kd tablet (Calcium Citrate Plus) fexofenadine 180 mg tablet 180 mg PO DAILY 09/04/20 02/16/23 (Marisa Allergy) multivitamin 1 tab PO DAILY 09/04/20 02/16/23 prednisolone acetate 1 % eye 2 drp ophthalmic (eye) BID 09/04/20 02/16/23 drops,suspension vitamin B complex (B 1 tab PO DAILY 09/04/20 02/16/23 Complex-Vitamin B12 tablet) Previous Rx's Medication Instructions Recorded [facility] Bone Stimulator #1 ea 10/09/20 naproxen 500 mg tablet 500 mg PO BID PRN pain 10 days #20 03/09/22 tabs allopurinol 100 mg tablet 100 mg PO DAILY #90 tabs 06/16/22 folic acid 1 mg tablet 1 mg PO DAILY #90 tabs 06/17/22 hydrochlorothiazide 25 mg tablet 25 mg PO DAILY #90 tabs 10/23/22 pravastatin 10 mg tablet 10 mg PO BEDTIME #90 tabs 10/23/22 montelukast 10 mg tablet 10 mg PO BEDTIME #90 tabs 10/24/22 tramadol 50 mg tablet 50 mg PO BID PRN pain #60 tabs 11/15/22 ropinirole 3 mg tablet 3 mg PO DAILY #90 tabs 12/11/22 pantoprazole 40 mg tablet,delayed 40 mg PO DAILY #90 tabs 12/22/22 release meloxicam 15 mg tablet 15 mg PO DAILY #90 tabs 01/12/23 metoprolol succinate 25 mg 25 mg PO DAILY #90 tabs 01/12/23 tablet,extended release 24 hr methotrexate sodium 2.5 mg tablet 15 mg PO QWEEK #24 tabs 02/13/23 prednisone 1 mg tablet 2 mg PO DAILY 30 days #60 tabs 02/15/23 alprazolam 0.25 mg tablet 0.125 mg PO TID PRN anxiety 30 02/16/23 days #30 tabs denosumab 60 mg/mL subcutaneous 60 mg subcut [id number] #1 mL 02/21/23 syringe (Prolia) Allergies Allergy/AdvReac Type Severity Reaction Status Date / Time alendronate sodium Allergy Severe ANAPHYLAXIS Verified 02/16/23 11:48 [From FOSAMAX] lisinopril [LISINOPRIL] Allergy Severe ANAPHYLAXIS, Verified 02/16/23 11:48 cough clarithromycin Allergy Intermediate CONFUSION, Verified 02/16/23 11:48 [CLARITHROMYCIN] sores on tongue, dry mouth simvastatin [SIMVASTATIN] Allergy Mild DRY Verified 02/16/23 11:48 THROAT, achy, confusion Review of Systems Review of Systems: Positive chest pain No diaphoresis All system reviewed otherwise negative Yes all other systems are reviewed and are negative PMFSH Past Medical History Attestation statement: The following information was validated with the patient. Medical History Anxiety and depression Asthma Fracture of 5th metatarsal Fracture of fifth metatarsal bone of right foot GERD (gastroesophageal reflux disease) Gout High cholesterol Hypercholesterolemia Hypergammaglobulinemia Hypertension Hypertension Lumbar degenerative disc disease Nondisplaced fracture of fifth metatarsal bone, left foot, subsequent encounter for fracture with nonunion Osteoarthritis Osteoarthritis of carpometacarpal (CMC) joint of right thumb Osteoarthritis of shoulders, bilateral Osteoporosis Overweight (BMI 25.0-29.9) Peripheral neuropathy Polymyalgia rheumatica Restless leg syndrome Rheumatoid arthritis Rheumatoid arthritis Seizure disorder Seropositive rheumatoid arthritis Thrush, oral Surgical History Corneal transplant status H/O left knee surgery History of appendectomy History of arthroplasty of right hip History of cholecystectomy History of corneal transplant History of open reduction and internal fixation (ORIF) procedure History of total abdominal hysterectomy Family History Family History Father CVD (cardiovascular disease) Mother No problems noted. Social History Social History Housing: House Alcohol intake: current Alcohol intake frequency: holidays/special occasions only Alcohol type: wine Patient Tobacco Use Status: Never used Tobacco Smoked in Last 30 Days: No e-Cigarette/Vaping Use: Never Used Second Hand Smoke Exposure: No Use of substances other than those prescribed or required for medical reasons: No Advance Directives: No service: No Current occupational status: retired Cognitive needs: No Hearing needs: Yes Vision needs: Yes Physical Exam Vital Signs: Vital Signs: Last Vital Signs Temp 97.7 F 02/21/23 13:02 Pulse 64 02/21/23 13:02 Resp 16 02/21/23 13:02 BP 154/90 H 02/21/23 13:02 Pulse Ox 98 02/21/23 13:02 O2 Del Method Room Air 02/21/23 13:02 BMI result Body Mass Index 28.1 Appearance: Alert. Oriented X3. No acute distress. Eyes: Pupils equal, round and reactive to light. ENT: Pharynx normal. Neck: Normal inspection. Neck supple. No lymph nodes noted. No crepitus CVS: Normal heart rate and rhythm. Pulses normal. Normal S1 and S2 Respiratory: No respiratory distress. Breath sounds normal. No Wheezing. No rales Abdomen: Soft and nontender. No rigidity. No distention. good BS x4 Skin: Skin warm and dry. Normal skin color. Normal skin turgor. Extremities: No lower extremity edema. Neurovascular intact to all extremities. No Lacerations. No Rash Neuro: Oriented X 3. No motor deficit. No sensory deficit. Moving all extermities. No slurred speech Medical Decision Making Medical Decision Making MDM Narrative: Patient's chest pain atypical. He is 82 years old has a history of hypertension and high cholesterol. No history of smoking no history of IN patient's did not have any recent stress test. My interpretation of her EKG showed a sinus pattern heart rate was 70 GA QRS QTC within normal limits there is nonspecific diffuse T-wave flattening noted. Her 1st sets of cardiac enzymes are negative. Will draw 2nd set of enzyme. Patient chest x-ray showed no evidence of pneumonia pneumothorax. History not consistent with PE. Patient's 2nd set of heart enzymes are negative. She is 82 years old has atypical chest pain. Two sets of enzymes negative. EKG did not have any suggestions of ACS.. Had a long discussion with patient. Risks benefits discussed of admission discussed with patient. Will discharge patient home follow up with Cardiology on an outpatient basis. In stable condition. Differential Diagnosis Differential Diagnoses: The differential diagnosis associated with the presentation includes Pneumonia, pneumothorax, pulmonary emboli, cardiac amount dissection Admission/Observation Consideration of admission/observation: Escalation of care including admission/observation considered Lab Data MDM Lab Attestation statement: I reviewed the patient's lab results. 02/21/23 10:00 02/21/23 10:00 Labs: Lab Results 02/21/23 02/21/23 02/21/23 Range/Units 10:00 10:00 10:00 WBC 8.6 (4.8-10.8) X10*3/uL RBC 4.57 (4.20-5.50) X10*6/uL Hgb 13.7 (12.0-16.0) g/dl Hct 42.5 (37.0-47.0) % MCV 93.0 (80.0-98.0) fL MCH 30.0 (27.0-33.0) pg MCHC 32.2 (31.0-35.0) g/dl RDW 13.5 (11.0-16.0) % Plt Count 270 (160-400) X10*3/uL MPV 9.2 L (9.4-12.3) fL Immature Gran % (Auto) 0.8 H (0.0-0.4) % Neut % (Auto) 68.2 (45-73) % Lymph % (Auto) 23.5 (20-40) % [place] % (Auto) 5.2 (2-11) % Eos % (Auto) 1.6 (0-4) % Baso % (Auto) 0.7 (0-2) % Lymph # (Auto) 2.0 (1.2-4.9) X10*3/uL [place] # (Auto) 0.5 (0.1-1.2) X10*3/uL Eos # (Auto) 0.1 (0.0-0.4) X10*3/uL Baso # (Auto) 0.1 (0.0-0.2) X10*3/uL Abs Immat Gran (auto) 0.07 H (0.00-0.03) X10*3/uL Absolute Neuts (auto) 5.9 (2.0-8.3) x10*3/uL Absolute Nucleated RBC 0.000 (0.0-0.012) X10*3/uL Nucleated RBC % (auto) 0.0 (0.0-0.2) /100WBC PT 9.8 L (10.0-13.1) SEC INR 0.9 (0.9-1.1) APTT 31.8 (26.0-36.4) SEC Sodium 138 (135-145) mmol/L Potassium 3.8 (3.3-5.1) mmol/L Chloride 103 (96-108) mmol/L Carbon Dioxide 26 (22-29) mmol/L Anion Gap 13 (12-20) BUN 13 (9-16) mg/dL Creatinine 0.84 (0.5-1.4) mg/dL Estim Creat Clear Calc TNP Estimated GFR > 60 Random Glucose 113 (60-115) mg/dL Calcium 9.3 (8.4-10.2) mg/dL Magnesium 1.9 (1.6-2.6) mg/dL Total Bilirubin 0.8 (0.0-1.0) mg/dL Direct Bilirubin 0.2 (0.0-0.5) mg/dL AST 25 (5-31) U/L ALT 22 (0-31) U/L Alkaline Phosphatase 91 (39-117) U/L Troponin I High Sens (<3.5-17.0) ng/L B-Natriuretic Peptide (<100) pg/mL Total Protein 6.7 (6.5-8.0) g/dL Albumin 3.8 (3.5-5.0) g/dL 02/21/23 02/21/23 02/21/23 Range/Units 10:00 10:00 14:37 WBC (4.8-10.8) X10*3/uL RBC (4.20-5.50) X10*6/uL Hgb (12.0-16.0) g/dl Hct (37.0-47.0) % MCV (80.0-98.0) fL MCH (27.0-33.0) pg MCHC (31.0-35.0) g/dl RDW (11.0-16.0) % Plt Count (160-400) X10*3/uL MPV (9.4-12.3) fL Immature Gran % (Auto) (0.0-0.4) % Neut % (Auto) (45-73) % Lymph % (Auto) (20-40) % [place] % (Auto) (2-11) % Eos % (Auto) (0-4) % Baso % (Auto) (0-2) % Lymph # (Auto) (1.2-4.9) X10*3/uL [place] # (Auto) (0.1-1.2) X10*3/uL Eos # (Auto) (0.0-0.4) X10*3/uL Baso # (Auto) (0.0-0.2) X10*3/uL Abs Immat Gran (auto) (0.00-0.03) X10*3/uL Absolute Neuts (auto) (2.0-8.3) x10*3/uL Absolute Nucleated RBC (0.0-0.012) X10*3/uL Nucleated RBC % (auto) (0.0-0.2) /100WBC PT (10.0-13.1) SEC INR (0.9-1.1) APTT (26.0-36.4) SEC Sodium (135-145) mmol/L Potassium (3.3-5.1) mmol/L Chloride (96-108) mmol/L Carbon Dioxide (22-29) mmol/L Anion Gap (12-20) BUN (9-16) mg/dL Creatinine (0.5-1.4) mg/dL Estim Creat Clear Calc Estimated GFR Random Glucose (60-115) mg/dL Calcium (8.4-10.2) mg/dL Magnesium (1.6-2.6) mg/dL Total Bilirubin (0.0-1.0) mg/dL Direct Bilirubin (0.0-0.5) mg/dL AST (5-31) U/L ALT (0-31) U/L Alkaline Phosphatase (39-117) U/L Troponin I High Sens < 2.7 < 2.7 (<3.5-17.0) ng/L B-Natriuretic Peptide 36 (<100) pg/mL Total Protein (6.5-8.0) g/dL Albumin (3.5-5.0) g/dL Independent Interpretation I performed an independent interpretation of an: EKG and Plain X-Ray Interpretation: Chest x-ray was negative. My interpretation patient's EKG showed a sinus pattern heart rate is 70 GA QRS QT with normal results nonspecific T-wave flattening noted. Radiology Impression Discussion of test interpretation with radiology: I have reviewed the radiologist's reading. Independent Historian Clinical information obtained from an independent historian. History obtained from or confirmed by: Spouse External Record Review External record reviewed: Inpatient record Discharge Plan Discharge Clinical Impression: Chest pain Patient Disposition: Home, Self-Care Instructions: Chest Pain (ED) Prescriptions: No Action allopurinol 100 mg tablet 100 mg PO DAILY Qty: 90 3RF folic acid 1 mg tablet 1 mg PO DAILY Qty: 90 2RF pravastatin 10 mg tablet 10 mg PO BEDTIME Qty: 90 2RF hydrochlorothiazide 25 mg tablet 25 mg PO DAILY Qty: 90 3RF montelukast 10 mg tablet 10 mg PO BEDTIME Qty: 90 2RF tramadol 50 mg tablet 50 mg PO BID PRN (Reason: pain) Qty: 60 1RF ropinirole 3 mg tablet 3 mg PO DAILY Qty: 90 2RF pantoprazole 40 mg tablet,delayed release (DR/EC) 40 mg PO DAILY Qty: 90 3RF Rx Instructions: Take every day except when taking methotrexate metoprolol succinate 25 mg tablet extended release 24 hr 25 mg PO DAILY Qty: 90 3RF meloxicam 15 mg tablet 15 mg PO DAILY Qty: 90 3RF methotrexate sodium 2.5 mg tablet 15 mg PO QWEEK Qty: 24 1RF Prolia 60 mg/mL syringe 60 mg subcut [id number] Qty: 1 1RF naproxen 500 mg tablet 500 mg PO BID PRN (Reason: pain) 10 Days Qty: 20 0RF fexofenadine [Marisa Allergy] 180 mg tablet 180 mg PO DAILY prednisolone acetate 1 % drops,suspension 2 drp ophthalmic (eye) BID multivitamin Tablet 1 tab PO DAILY vitamin B complex [B Complex-Vitamin B12] Tablet 1 tab PO DAILY Calcium Citrate Plus [id number] [id number] tablet 1 tab PO DAILY alprazolam 0.25 mg tablet 0.125 mg PO TID PRN (Reason: anxiety) 30 Days Qty: 30 0RF (DME) [facility] Bone Stimulator See Rx Instructions .Route .MEDSUPPLY Qty: 1 0RF Rx Instructions: As directed prednisone 1 mg tablet 2 mg PO DAILY 30 Days Qty: 60 1RF Referrals: Jhoan Taylor MD [Physician] - 02/23/23
[2023-02-21 15:12] LABS: Troponin-I High Sensitivity < 2.7 ng/L (<3.5-17.0)
== END 2023-02-21 15:52 | disposition home or self-care (01) ==
PROVIDERS: Physician Assistant; Emergency Provider Emergency Medicine Emergency Medical Services; PCP Internal Medicine
DX: R07.9 Chest pain, unspecified (principal); I10 Essential (primary) hypertension; Z79.899 Other long term (current) drug therapy
CPT/HCPCS: 36415; 71045; 80048; 80076; 83735; 83880; 84484; 85025; 85610; 85730; 93005; 99283; 99285

== ENCOUNTER 2023-02-27 07:48 | Emergency (ER) | payer MEDICARE, OTHER, SELFPAY ==
--- NOTE | ~2023-02-27 | CT_ITS ---
EXAMINATION: CT CERVICAL SPINE WITHOUT CONTRAST CLINICAL INFORMATION: Acute nontraumatic neck pain. Severe headache. COMPARISON: CT head noncontrast 02/27/2023 and 10/14/2022; CTA head and neck 06/23/2019. TECHNIQUE: Multidetector volumetric CT imaging of the cervical spine is performed without contrast in the axial plane. Additional 2D reformatted coronal and sagittal images are generated on the CT workstation and uploaded to PACS. This CT examination was performed using dose optimization techniques as appropriate, variously including the following: *Automated exposure control *Adjustment of mA and/or kV according to patient size (this includes techniques or standardized protocols for targeted exams where dose is matched to indication/reason for exam; i.e. extremities or head) *Use of iterative reconstruction technique DLP: 331 mGy-cm FINDINGS: There is no vertebral compression fracture, fracture line, destructive process, or prevertebral soft tissue swelling. The craniocervical junction shows normal alignment. The odontoid appears intact. There is no atlanto-axial subluxation. There is mild straightening mid cervical spine similar to prior exam. Again, there are variable multilevel degenerative facet changes. No perched facet. No erosive change. Degenerative disc changes are again present at C5-C6 and C6-C7 with disc narrowing and mild endplate sclerosis and anterior and posterior vertebral osteophytes. Again, there is grade 0-1 spondylolisthesis at C4-C5 and a borderline spondylolisthesis again seen at C7-T1. Lung apices are clear. No pneumothorax or airspace consolidation or groundglass opacity. CT/CT cervical spine wo IV con IMPRESSION: -No acute bony abnormality or prevertebral soft tissue swelling. -Multilevel degenerative disc and degenerative facet changes. -Grade 0-1 spondylolisthesis C4-C5 and borderline spondylolisthesis C7-T1, similar to 2019.
--- NOTE | ~2023-02-27 | XR_ITS ---
EXAMINATION: XR CHEST CLINICAL INFORMATION: Acute back and neck pain. COMPARISON: Chest radiograph 02/21/2023. TECHNIQUE: 2 views of the chest were obtained. FINDINGS: Normal appearance of the cardiomediastinal silhouette. No focal airspace opacity, pleural effusion or pneumothorax. No displaced osseous fractures. The visualized upper abdomen is within normal limits. XR/XR chest 2V IMPRESSION: 1. No acute cardiopulmonary findings. 2. No displaced osseous fractures.
--- NOTE | ~2023-02-27 | CT_ITS ---
EXAMINATION: CT HEAD WITHOUT CONTRAST CLINICAL INFORMATION: Severe generalized headache, acute nontraumatic head/neck pain. COMPARISON: CT head noncontrast 10/14/2022, CTA head and neck 06/23/2019. TECHNIQUE: Contiguous axial imaging was performed from the skull base to vertex without intravenous administration of contrast. Additional 2-D coronal and sagittal reformatted images are generated on the CT workstation and uploaded to PACS. This CT examination was performed using dose optimization techniques as appropriate, variously including the following: *Automated exposure control *Adjustment of mA and/or kV according to patient size (this includes techniques or standardized protocols for targeted exams where dose is matched to indication/reason for exam; i.e. extremities or head) *Use of iterative reconstruction technique DLP: 672 mGy-cm FINDINGS: There is no intracranial hemorrhage, hematoma, or extra-axial fluid collection. The ventricles are normal in size. There are atrophic changes with prominence of the cortical sulci and fissures and cisterns. Mild periventricular white matter gliosis is again seen consistent with chronic small vessel ischemic changes. The mcmillan-white matter differentiation appears well preserved . There is no visible acute territorial infarct or significant mass lesion. Again, there is a small incidental anterior falx midline lipoma measuring approximately 5 x 3 x 6 mm. The calvarium appears intact. There is no pneumocephalus or orbital emphysema. There are scattered mucosal thickening ethmoid air cells and mild circumferential mucosal thickening right maxillary sinus. There are no air-fluid levels sinuses or middle ears or mastoids. CT/CT head/brain wo IV con IMPRESSION: No acute intracranial abnormality.
--- NOTE | 2023-02-27 08:08 | ECG_ITS ---
Test Reason : HEADACHE Blood Pressure : / mmHG Vent. Rate : 088 BPM Atrial Rate : 088 BPM P-R Int : 170 ms QRS Dur : 076 ms QT Int : 342 ms P-R-T Axes : 043 017 049 degrees QTc Int : 413 ms Normal sinus rhythm Possible Left atrial enlargement Borderline ECG When compared with ECG of 21-FEB-2023 09:44, No significant change was found Referred By: Dylan Gonzalez Electronically Signed By:Jhoan Taylor
--- NOTE | 2023-02-27 08:11 | ED.GENADULT ---
HPI - General Adult General Chief complaint: Headache Stated complaint: headache Time Seen by Provider: 02/27/23 07:58 Source: patient Mode of arrival: ambulatory Limitations: no limitations History of Present Illness HPI narrative: 82-year-old female not on blood thinners presents with severe headache, neck pain. Symptoms started 3 days ago. The symptoms are gradual in onset. There is no sudden onset severe thunderclap headache. The headache is generalized. It is not associated with photo or phonophobia, no nausea vomiting. No history of headaches. No focal deficits. She also is complaining of neck pain. Her symptoms are worse with movement or going over bumps. The pain does not radiate. She complains of mild right shoulder pain. There is no prior treatment. Patient has never had a headache like this before but has a history of migraine headaches approximately 40 years ago. Patient describes the headache is again severe and achy in nature. There is no vision changes. She does have dizziness and ringing in the ears consistent with recent diagnosis of Meniere's disease. Patient denies any fevers, behavioral changes Related Data Home Medications Medication Instructions Recorded Confirmed calcium cit 250 mg-mag 40 mg-D3 1 tab PO DAILY 09/04/20 02/16/23 125 unit-zinc 3.75 mg-asbestos microscopist-kd tablet (Calcium Citrate Plus) fexofenadine 180 mg tablet 180 mg PO DAILY 09/04/20 02/16/23 (Marisa Allergy) multivitamin 1 tab PO DAILY 09/04/20 02/16/23 prednisolone acetate 1 % eye 2 drp ophthalmic (eye) BID 09/04/20 02/16/23 drops,suspension vitamin B complex (B 1 tab PO DAILY 09/04/20 02/16/23 Complex-Vitamin B12 tablet) Previous Rx's Medication Instructions Recorded [facility] Bone Stimulator #1 ea 10/09/20 naproxen 500 mg tablet 500 mg PO BID PRN pain 10 days #20 03/09/22 tabs allopurinol 100 mg tablet 100 mg PO DAILY #90 tabs 06/16/22 folic acid 1 mg tablet 1 mg PO DAILY #90 tabs 06/17/22 hydrochlorothiazide 25 mg tablet 25 mg PO DAILY #90 tabs 10/23/22 pravastatin 10 mg tablet 10 mg PO BEDTIME #90 tabs 10/23/22 montelukast 10 mg tablet 10 mg PO BEDTIME #90 tabs 10/24/22 tramadol 50 mg tablet 50 mg PO BID PRN pain #60 tabs 11/15/22 ropinirole 3 mg tablet 3 mg PO DAILY #90 tabs 12/11/22 pantoprazole 40 mg tablet,delayed 40 mg PO DAILY #90 tabs 12/22/22 release meloxicam 15 mg tablet 15 mg PO DAILY #90 tabs 01/12/23 metoprolol succinate 25 mg 25 mg PO DAILY #90 tabs 01/12/23 tablet,extended release 24 hr methotrexate sodium 2.5 mg tablet 15 mg PO QWEEK #24 tabs 02/13/23 prednisone 1 mg tablet 2 mg PO DAILY 30 days #60 tabs 02/15/23 alprazolam 0.25 mg tablet 0.125 mg PO TID PRN anxiety 30 02/16/23 days #30 tabs denosumab 60 mg/mL subcutaneous 60 mg subcut [id number] #1 mL 02/21/23 syringe (Prolia) cyclobenzaprine 5 mg tablet 5 mg PO TID PRN muscle spasm #10 02/27/23 tabs oxycodone 5 mg tablet 5 mg PO TID PRN pain #10 tabs 02/27/23 Allergies Allergy/AdvReac Type Severity Reaction Status Date / Time alendronate sodium Allergy Severe ANAPHYLAXIS Verified 02/16/23 11:48 [From FOSAMAX] lisinopril [LISINOPRIL] Allergy Severe ANAPHYLAXIS, Verified 02/16/23 11:48 cough clarithromycin Allergy Intermediate CONFUSION, Verified 02/16/23 11:48 [CLARITHROMYCIN] sores on tongue, dry mouth simvastatin [SIMVASTATIN] Allergy Mild DRY Verified 02/16/23 11:48 THROAT, achy, confusion PMFSH Past Medical History Medical History Anxiety and depression Asthma Fracture of 5th metatarsal Fracture of fifth metatarsal bone of right foot GERD (gastroesophageal reflux disease) Gout High cholesterol Hypercholesterolemia Hypergammaglobulinemia Hypertension Hypertension Lumbar degenerative disc disease Nondisplaced fracture of fifth metatarsal bone, left foot, subsequent encounter for fracture with nonunion Osteoarthritis Osteoarthritis of carpometacarpal (CMC) joint of right thumb Osteoarthritis of shoulders, bilateral Osteoporosis Overweight (BMI 25.0-29.9) Peripheral neuropathy Polymyalgia rheumatica Restless leg syndrome Rheumatoid arthritis Rheumatoid arthritis Seizure disorder Seropositive rheumatoid arthritis Thrush, oral Surgical History Corneal transplant status H/O left knee surgery History of appendectomy History of arthroplasty of right hip History of cholecystectomy History of corneal transplant History of open reduction and internal fixation (ORIF) procedure History of total abdominal hysterectomy Family History Family History Father CVD (cardiovascular disease) Mother No problems noted. Social History Social History Housing: House Alcohol intake: current Alcohol intake frequency: a few times a month Alcohol type: wine Patient Tobacco Use Status: Never used Tobacco Smoked in Last 30 Days: No e-Cigarette/Vaping Use: Never Used Second Hand Smoke Exposure: No Use of substances other than those prescribed or required for medical reasons: No Advance Directives: Yes Advance Directives on File: No service: No Current occupational status: retired Cognitive needs: No Hearing needs: Yes Vision needs: Yes Physical Exam ED Vital Signs: Vital Signs - 24 hr 02/27/23 08:13 02/27/23 10:07 02/27/23 10:30 Temperature 99.1 F 98.9 F Pulse Rate 94 92 Respiratory Rate 17 20 18 Blood Pressure 149/67 H 151/66 H Pulse Oximetry 95 94 Oxygen Delivery Method Room Air Room Air 02/27/23 12:52 02/27/23 14:57 Temperature 98.2 F 98.4 F Pulse Rate 85 84 Respiratory Rate 16 16 Blood Pressure 128/55 L 133/56 L Pulse Oximetry 96 95 Oxygen Delivery Method Room Air Room Air BMI result Body Mass Index 29.5 GEN: Well developed, no acute distress, alert, oriented HEENT: Normocephalic, atraumatic, normal external ears, nose appears normal, no oropharyngeal edema or exudates Eyes: Normal to appearance Neck: no lymphadenopathy, limited range of motion Respiratory: Talks in complete sentences, no respiratory distress, clear to auscultation bilaterally Cardiovascular: Regular rate and rhythm, no murmurs rubs or gallops Abdomen: Soft, nontender, nondistended, no guarding, no rebound Back: No CVA tenderness Extremities: No clubbing cyanosis or edema Neurologic: No focal neurologic deficits, cranial nerves 2-12 intact, strength is 5/5 bilaterally Skin: No rash Course Course Course Narrative: For 82-year-old female presents with headache and neck pain, right shoulder pain. Symptoms are severe. Examination did reveal stiffness of the neck, there is no tenderness to the cervical spine area. She has no focal neurologic deficits. Patient will have analgesia, CT scan of the head, neck, chest x-ray, EKG, laboratory testing. Will re-evaluate patient for further diagnostic testing as needed. Reevaluation(s) Reevaluation #1: An LP was performed for concern of possible subarachnoid hemorrhage given headache and neck pain. The lumbar puncture was negative for infectious etiology or subarachnoid hemorrhage. At this point, patient can be safely discharged with analgesia. I discussed the concerns of the medications being prescribed including oxycodone and muscle relaxers which can cause drowsiness. Recommended follow-up with primary care provider in the next couple days. Additionally, complementary care can be provided to the patient including acupuncture, chiropractics, massage, etc.. Time: 15:31 Medications Administered Discontinued Medications Generic Name Dose Route Start Last Admin Trade Name Madina PRN Reason Stop Dose Admin Hydromorphone HCl 1 mg 02/27/23 12:35 02/27/23 12:58 Hydromorphone Hcl 1 Mg/Ml Syringe IVPUSH 02/27/23 12:36 1 mg ONCE ONE Administration Protocol Lidocaine/Epinephrine 10 ml 02/27/23 14:46 02/27/23 12:58 Lidocaine Hcl 1%/Epi 1:100,000 10 Ml Vial INFILTRATI 02/27/23 14:47 10 ml ONCE ONE Administration Morphine Sulfate 4 mg 02/27/23 08:08 02/27/23 10:07 Morphine Sulfate 4 Mg/Ml Cartridge IVPUSH 02/27/23 08:09 4 mg ONCE ONE Administration Protocol Procedures Lumbar Puncture Time Out Performed: Yes Patient Position: left lateral decubitus Skin Prep: Povidone-Iodine 1% Local Anesthetic: lidocaine 1% and with epi Amount of anesthesia used (mL): 6 Spinal Needle Gauge: 22G Interspace Used: L4-L5 Fluid Initially Obtained: clear Complications: none Medical Decision Making Medical Decision Making MDM Narrative: 82-year-old female presents with headache, neck pain, right shoulder pain. This nontraumatic. This is not sudden onset. However, would consider subarachnoid hemorrhage given her neck pain and headache. She is not on blood thinning medications, no other red flag symptoms presents for this diagnosis however. She has no fever her mental status changes. Doubt acute meningitis. She does report feeling better on palpation of the shoulders and neck area. It is possible it could be musculoskeletal pain with cervicalgia with occipital related symptoms. Could consider trigger point injections, other possibilities although nontraumatic subdural hematoma, epidural hematoma, migraine headache, tension headache, cluster headache sinus headache, musculoskeletal pain. Differential Diagnosis Differential Diagnoses: The differential diagnosis associated with the presentation includes (See above) Headache, neck pain Admission/Observation Consideration of admission/observation: Escalation of care including admission/observation considered Lab Data MDM Lab Attestation statement: I reviewed the patient's lab results. 02/27/23 09:59 02/27/23 09:59 Labs: Lab Results 02/27/23 02/27/23 02/27/23 Range/Units 09:59 09:59 09:59 WBC 10.9 H (4.8-10.8) X10*3/uL RBC 4.18 L (4.20-5.50) X10*6/uL Hgb 12.9 (12.0-16.0) g/dl Hct 38.8 (37.0-47.0) % MCV 92.8 (80.0-98.0) fL MCH 30.9 (27.0-33.0) pg MCHC 33.2 (31.0-35.0) g/dl RDW 13.4 (11.0-16.0) % Plt Count 257 (160-400) X10*3/uL MPV 9.1 L (9.4-12.3) fL Immature Gran % (Auto) 0.6 H (0.0-0.4) % Neut % (Auto) 83.3 H (45-73) % Lymph % (Auto) 11.7 L (20-40) % [place] % (Auto) 3.5 (2-11) % Eos % (Auto) 0.5 (0-4) % Baso % (Auto) 0.4 (0-2) % Lymph # (Auto) 1.3 (1.2-4.9) X10*3/uL [place] # (Auto) 0.4 (0.1-1.2) X10*3/uL Eos # (Auto) 0.1 (0.0-0.4) X10*3/uL Baso # (Auto) 0.0 (0.0-0.2) X10*3/uL Abs Immat Gran (auto) 0.06 H (0.00-0.03) X10*3/uL Absolute Neuts (auto) 9.1 H (2.0-8.3) x10*3/uL Absolute Nucleated RBC 0.000 (0.0-0.012) X10*3/uL Nucleated RBC % (auto) 0.0 (0.0-0.2) /100WBC ESR (0-20) MM/HR PT 10.6 (10.0-13.1) SEC INR 0.9 (0.9-1.1) APTT 31.1 (26.0-36.4) SEC Sodium (135-145) mmol/L Potassium (3.3-5.1) mmol/L Chloride (96-108) mmol/L Carbon Dioxide (22-29) mmol/L Anion Gap (12-20) BUN (9-16) mg/dL Creatinine (0.5-1.4) mg/dL Estim Creat Clear Calc Estimated GFR Random Glucose (60-115) mg/dL Calcium (8.4-10.2) mg/dL Troponin I High Sens < 2.7 (<3.5-17.0) ng/L CSF Tube Number CSF Volume ML CSF Appearance CSF Color CSF WBC MM*3 CSF RBC MM*3 CSF Neutrophils % CSF Lymphocytes % CSF Monocytes % % CSF Glucose mg/dL CSF Total Protein (15-45) mg/dL Urine Opiates Screen (Not Detect) Urine Fentanyl Screen (Not Detect) Ur Barbiturates Screen (Not Detect) Ur Phencyclidine Scrn (Not Detect) Ur Amphetamines Screen (Not Detect) U Benzodiazepines Scrn (Not Detect) Urine Cocaine Screen (Not Detect) U Marijuana (THC) Screen (Not Detect) Ethyl Alcohol mg/dL 02/27/23 02/27/23 02/27/23 Range/Units 09:59 11:14 11:47 WBC (4.8-10.8) X10*3/uL RBC (4.20-5.50) X10*6/uL Hgb (12.0-16.0) g/dl Hct (37.0-47.0) % MCV (80.0-98.0) fL MCH (27.0-33.0) pg MCHC (31.0-35.0) g/dl RDW (11.0-16.0) % Plt Count (160-400) X10*3/uL MPV (9.4-12.3) fL Immature Gran % (Auto) (0.0-0.4) % Neut % (Auto) (45-73) % Lymph % (Auto) (20-40) % [place] % (Auto) (2-11) % Eos % (Auto) (0-4) % Baso % (Auto) (0-2) % Lymph # (Auto) (1.2-4.9) X10*3/uL [place] # (Auto) (0.1-1.2) X10*3/uL Eos # (Auto) (0.0-0.4) X10*3/uL Baso # (Auto) (0.0-0.2) X10*3/uL Abs Immat Gran (auto) (0.00-0.03) X10*3/uL Absolute Neuts (auto) (2.0-8.3) x10*3/uL Absolute Nucleated RBC (0.0-0.012) X10*3/uL Nucleated RBC % (auto) (0.0-0.2) /100WBC ESR 44 H (0-20) MM/HR PT (10.0-13.1) SEC INR (0.9-1.1) APTT (26.0-36.4) SEC Sodium 135 (135-145) mmol/L Potassium 3.9 (3.3-5.1) mmol/L Chloride 101 (96-108) mmol/L Carbon Dioxide 27 (22-29) mmol/L Anion Gap 11 L (12-20) BUN 14 (9-16) mg/dL Creatinine 0.70 (0.5-1.4) mg/dL Estim Creat Clear Calc 67.2 Estimated GFR > 60 Random Glucose 108 (60-115) mg/dL Calcium 9.1 (8.4-10.2) mg/dL Troponin I High Sens (<3.5-17.0) ng/L CSF Tube Number CSF Volume ML CSF Appearance CSF Color CSF WBC MM*3 CSF RBC MM*3 CSF Neutrophils % CSF Lymphocytes % CSF Monocytes % % CSF Glucose mg/dL CSF Total Protein (15-45) mg/dL Urine Opiates Screen POSITIVE H (Not Detect) Urine Fentanyl Screen Not Detected (Not Detect) Ur Barbiturates Screen Not Detected (Not Detect) Ur Phencyclidine Scrn Not Detected (Not Detect) Ur Amphetamines Screen Not Detected (Not Detect) U Benzodiazepines Scrn Not Detected (Not Detect) Urine Cocaine Screen Not Detected (Not Detect) U Marijuana (THC) Screen Not Detected (Not Detect) Ethyl Alcohol < 10 mg/dL 02/27/23 02/27/23 02/27/23 Range/Units 13:27 13:27 13:27 WBC (4.8-10.8) X10*3/uL RBC (4.20-5.50) X10*6/uL Hgb (12.0-16.0) g/dl Hct (37.0-47.0) % MCV (80.0-98.0) fL MCH (27.0-33.0) pg MCHC (31.0-35.0) g/dl RDW (11.0-16.0) % Plt Count (160-400) X10*3/uL MPV (9.4-12.3) fL Immature Gran % (Auto) (0.0-0.4) % Neut % (Auto) (45-73) % Lymph % (Auto) (20-40) % [place] % (Auto) (2-11) % Eos % (Auto) (0-4) % Baso % (Auto) (0-2) % Lymph # (Auto) (1.2-4.9) X10*3/uL [place] # (Auto) (0.1-1.2) X10*3/uL Eos # (Auto) (0.0-0.4) X10*3/uL Baso # (Auto) (0.0-0.2) X10*3/uL Abs Immat Gran (auto) (0.00-0.03) X10*3/uL Absolute Neuts (auto) (2.0-8.3) x10*3/uL Absolute Nucleated RBC (0.0-0.012) X10*3/uL Nucleated RBC % (auto) (0.0-0.2) /100WBC ESR (0-20) MM/HR PT (10.0-13.1) SEC INR (0.9-1.1) APTT (26.0-36.4) SEC Sodium (135-145) mmol/L Potassium (3.3-5.1) mmol/L Chloride (96-108) mmol/L Carbon Dioxide (22-29) mmol/L Anion Gap (12-20) BUN (9-16) mg/dL Creatinine (0.5-1.4) mg/dL Estim Creat Clear Calc Estimated GFR Random Glucose (60-115) mg/dL Calcium (8.4-10.2) mg/dL Troponin I High Sens (<3.5-17.0) ng/L CSF Tube Number 1 4 CSF Volume 0.5 1.0 ML CSF Appearance CLEAR CLEAR CSF Color COLORLESS COLORLESS CSF WBC 10 H* 0 MM*3 CSF RBC 717 2 MM*3 CSF Neutrophils 40 % CSF Lymphocytes 28 % CSF Monocytes % 32 % CSF Glucose 54 mg/dL CSF Total Protein 38.5 (15-45) mg/dL Urine Opiates Screen (Not Detect) Urine Fentanyl Screen (Not Detect) Ur Barbiturates Screen (Not Detect) Ur Phencyclidine Scrn (Not Detect) Ur Amphetamines Screen (Not Detect) U Benzodiazepines Scrn (Not Detect) Urine Cocaine Screen (Not Detect) U Marijuana (THC) Screen (Not Detect) Ethyl Alcohol mg/dL Independent Interpretation I performed an independent interpretation of an: EKG (Normal sinus rhythm heart rate 88, normal intervals, no acute ST elevations depressions, nonspecific T-wave changes), Plain X-Ray (Chest: NAD) and CT Scan (ct head NAD) Radiology Impression Discussion of test interpretation with radiology: I have reviewed the radiologist's reading. ( CT/CT head/brain wo IV con IMPRESSION: No acute intracranial abnormality. Dictated By:Sourav Gray MDSigned By:<Electronically signed by Sourav Gray MD in [place]>02/27/23 1128 DD/ [id number]/TT: Composition Board Press Operator: MCPHERSON) Radiologist Impression: C spineNAD Independent Historian Clinical information obtained from an independent historian. History obtained from or confirmed by: Spouse Tests considered The following testing was considered but not selected: MRI Prescription Management I considered prescription management with: Pain Medication Chronic Conditions Patient?s care impacted by: Hypertension Critical Care Time Critical Care Time Total Critical Care Time: 35 Attestation: Critical care time the amount of approximately 35 minutes provided to patient for concern of subarachnoid hemorrhage which might be life-threatening. Care included bedside care, reassessment, interpretation of medical data, conversation patient and , documentation. This is all outside procedure time for the lumbar puncture. Discharge Plan Discharge Clinical Impression: Headache, Acute torticollis Patient Disposition: Home, Self-Care Instructions: Acute Headache (DC), Neck Pain (ED) Additional Instructions: For pain: tylenol 1000 mg every 6 hours as needed oxycodone 5 mg every 8 hours as needed may cause drowsiness cyclobenzaprine 5 mg eveyr 8 hours as needed, may cause drowsiness Capsaicin cream very 6 hours as needed. Consider complementary care i.e. acupuncture, chiropractics, massage, etc. Prescriptions: New oxycodone 5 mg tablet 5 mg PO TID PRN (Reason: pain) Qty: 10 0RF Rx Instructions: Partial Fill upon patient request. cyclobenzaprine 5 mg tablet 5 mg PO TID PRN (Reason: muscle spasm) Qty: 10 0RF No Action allopurinol 100 mg tablet 100 mg PO DAILY Qty: 90 3RF folic acid 1 mg tablet 1 mg PO DAILY Qty: 90 2RF pravastatin 10 mg tablet 10 mg PO BEDTIME Qty: 90 2RF hydrochlorothiazide 25 mg tablet 25 mg PO DAILY Qty: 90 3RF montelukast 10 mg tablet 10 mg PO BEDTIME Qty: 90 2RF tramadol 50 mg tablet 50 mg PO BID PRN (Reason: pain) Qty: 60 1RF ropinirole 3 mg tablet 3 mg PO DAILY Qty: 90 2RF pantoprazole 40 mg tablet,delayed release (DR/EC) 40 mg PO DAILY Qty: 90 3RF Rx Instructions: Take every day except when taking methotrexate metoprolol succinate 25 mg tablet extended release 24 hr 25 mg PO DAILY Qty: 90 3RF meloxicam 15 mg tablet 15 mg PO DAILY Qty: 90 3RF methotrexate sodium 2.5 mg tablet 15 mg PO QWEEK Qty: 24 1RF Prolia 60 mg/mL syringe 60 mg subcut [id number] Qty: 1 1RF naproxen 500 mg tablet 500 mg PO BID PRN (Reason: pain) 10 Days Qty: 20 0RF fexofenadine [Marisa Allergy] 180 mg tablet 180 mg PO DAILY prednisolone acetate 1 % drops,suspension 2 drp ophthalmic (eye) BID multivitamin Tablet 1 tab PO DAILY vitamin B complex [B Complex-Vitamin B12] Tablet 1 tab PO DAILY Calcium Citrate Plus 117-00-131-3.75 io-sa-scui-mg tablet 1 tab PO DAILY alprazolam 0.25 mg tablet 0.125 mg PO TID PRN (Reason: anxiety) 30 Days Qty: 30 0RF (DME) [facility] Bone Stimulator See Rx Instructions .Route .MEDSUPPLY Qty: 1 0RF Rx Instructions: As directed prednisone 1 mg tablet 2 mg PO DAILY 30 Days Qty: 60 1RF
[2023-02-27 08:13] VITALS: BP 149/67; PULSE 94; RESP 17; TEMP 37.3; O2SAT 95; BMI 29.5
[2023-02-27 10:03] LABS: MANUAL DIFF FLAG NO
[2023-02-27 10:05] LABS: Basophils Percent Auto 0.4 % (0-2); Eosinophils Absolute Auto 0.1 X10*3/uL (0.0-0.4); Eosinophils Percent Auto 0.5 % (0-4); Hematocrit 38.8 % (37.0-47.0); Hemoglobin 12.9 g/dl (12.0-16.0); Imm Gran Abs Auto 0.06 X10*3/uL (0.00-0.03); Imm Gran Pct Auto 0.6 % (0.0-0.4); Lymphocytes Absolute Auto 1.3 X10*3/uL (1.2-4.9); Lymphocytes Percent Auto 11.7 % (20-40); Mean Corpuscular HGB Conc 33.2 g/dl (31.0-35.0); Mean Corpuscular Hemoglobin 30.9 pg (27.0-33.0); Mean Corpuscular Volume 92.8 fL (80.0-98.0); Mean Platelet Volume 9.1 fL (9.4-12.3); Monocytes Absolute Auto 0.4 X10*3/uL (0.1-1.2); Monocytes Percent Auto 3.5 % (2-11); Neutrophils Absolute Auto 9.1 x10*3/uL (2.0-8.3); Neutrophils Percent Auto 83.3 % (45-73); Platelet Count 257 X10*3/uL (160-400); Red Blood Count 4.18 X10*6/uL (4.20-5.50); Red Cell Distribution Width 13.4 % (11.0-16.0); White Blood Count 10.9 X10*3/uL (4.8-10.8)
[2023-02-27 10:07] VITALS: RESP 20
[2023-02-27] MEDS: Morphine Sulfate 4 MG/ML CARTRIDGE IVPUSH (10:07)
[2023-02-27 10:13] LABS: INTERNATIONAL NORM RATIO 0.9 (0.9-1.1); Prothrombin Time 10.6 SEC (10.0-13.1)
[2023-02-27 10:15] LABS: Partial Thromboplastin Time 31.1 SEC (26.0-36.4)
[2023-02-27 10:30] VITALS: BP 151/66; PULSE 92; RESP 18; TEMP 37.2; O2SAT 94
--- NOTE | 2023-02-27 10:47 | PC.NURSE ---
pt pleasant, calm, and cooperative. resting quietly in room, watching tv. IV line established, labs drawn, medicated per jan. pt verbalizes pain decreased since medicated and in no apparent distress. awaiting scan results. at bedside. vss. jody
[2023-02-27 10:57] LABS: Erythrocyte Sedimentation Rate 44 MM/HR (0-20)
[2023-02-27 11:06] LABS: Troponin-I High Sensitivity < 2.7 ng/L (<3.5-17.0)
[2023-02-27 11:50] LABS: Anion Gap 11 (12-20); Blood Urea Nitrogen 14 mg/dL (9-16); Calcium 9.1 mg/dL (8.4-10.2); Carbon Dioxide 27 mmol/L (22-29); Chloride 101 mmol/L (96-108); Creatinine Clr Calc Pharmacy 67.2; Estimated Glomerular Filt Rate > 60; Ethanol < 10 mg/dL; Glucose Random 108 mg/dL (60-115); Potassium 3.9 mmol/L (3.3-5.1); Sodium 135 mmol/L (135-145)
[2023-02-27 12:19] LABS: Amphetamine Screen Urine Not Detected (Not Detect); Barbiturates, Urine Not Detected (Not Detect); Benzodiazepines Screen Urine Not Detected (Not Detect); Cannabinoid Screen Urine Not Detected (Not Detect); Cocaine Screen Urine Not Detected (Not Detect); Fentanyl, urine Not Detected (Not Detect); Opiate Screen Urine POSITIVE (Not Detect); Phencyclidine Screen Urine Not Detected (Not Detect)
[2023-02-27 12:52] VITALS: BP 128/55; PULSE 85; RESP 16; TEMP 36.8; O2SAT 96
[2023-02-27] MEDS: Lidocaine HCl 1%/Epi 1:100,000 10 ML VIAL INFILTRATI (12:58)
[2023-02-27] MEDS: HYDROmorphone HCl 1 MG/ML SYRINGE IVPUSH (12:58)
[2023-02-27 14:57] VITALS: BP 133/56; PULSE 84; RESP 16; TEMP 36.9; O2SAT 95
[2023-02-27 15:05] LABS: Glucose CSF 54 mg/dL; Total Protein CSF 38.5 mg/dL (15-45)
[2023-02-27 15:11] LABS: Appearance CSF CLEAR; CSF Tube # 4; Color CSF COLORLESS; Red Blood Cell CSF 2 MM*3; White Blood Cell CSF 0 MM*3
[2023-02-27 15:12] LABS: Appearance CSF CLEAR; CSF Tube # 1; CSF Volume 0.5 ML; Color CSF COLORLESS; Red Blood Cell CSF 717 MM*3
[2023-02-27 15:13] LABS: CSF Monos 32 %; Lymphocytes CSF 28 %; Neutrophils CSF 40 %
[2023-02-27 15:19] LABS: White Blood Cell CSF 10 MM*3
[2023-02-27 18:09] LABS: CSF Appearance Clear, Colorless; CSF Tube # 1
== END 2023-02-27 15:50 | disposition home or self-care (01) ==
PROVIDERS: Emergency Provider Emergency Medicine; PCP Internal Medicine
DX: R51.9 Headache, unspecified (principal); M43.6 Torticollis; M54.2 Cervicalgia; M25.511 Pain in right shoulder; I10 Essential (primary) hypertension; E78.00 Pure hypercholesterolemia, unspecified; Z79.899 Other long term (current) drug therapy; Z79.02 Long term (current) use of antithrombotics/antiplatelets
CPT/HCPCS: 36415; 62270; 70450; 71046; 72125; 80048; 80307; 82077; 82945; 84157; 84484; 85025; 85610; 85652; 85730; 86335; 87015; 87070; 87205; 89051; 93005; 96374; 96375; 99285; J1170; J2270

== ENCOUNTER 2023-03-06 13:02 | Outpatient (REF) | payer MEDICARE, OTHER, SELFPAY ==
[2023-03-06 13:32] LABS: MANUAL DIFF FLAG NO
[2023-03-06 14:22] LABS: Basophils Absolute Auto 0.1 X10*3/uL (0.0-0.2); Basophils Percent Auto 0.8 % (0-2); Eosinophils Absolute Auto 0.2 X10*3/uL (0.0-0.4); Eosinophils Percent Auto 1.8 % (0-4); Hematocrit 39.2 % (37.0-47.0); Hemoglobin 12.8 g/dl (12.0-16.0); Imm Gran Abs Auto 0.14 X10*3/uL (0.00-0.03); Imm Gran Pct Auto 1.5 % (0.0-0.4); Lymphocytes Absolute Auto 2.1 X10*3/uL (1.2-4.9); Lymphocytes Percent Auto 22.9 % (20-40); Mean Corpuscular HGB Conc 32.7 g/dl (31.0-35.0); Mean Corpuscular Hemoglobin 30.9 pg (27.0-33.0); Mean Corpuscular Volume 94.7 fL (80.0-98.0); Mean Platelet Volume 8.9 fL (9.4-12.3); Monocytes Absolute Auto 0.7 X10*3/uL (0.1-1.2); Monocytes Percent Auto 7.3 % (2-11); Neutrophils Absolute Auto 6.1 x10*3/uL (2.0-8.3); Neutrophils Percent Auto 65.7 % (45-73); Platelet Count 328 X10*3/uL (160-400); Red Blood Count 4.14 X10*6/uL (4.20-5.50); Red Cell Distribution Width 13.4 % (11.0-16.0); White Blood Count 9.2 X10*3/uL (4.8-10.8)
[2023-03-06 14:54] LABS: Alanine Aminotransferase 19 U/L (0-31); Albumin Level 3.8 g/dL (3.5-5.0); Alkaline Phosphatase 90 U/L (39-117); Anion Gap 12 (12-20); Aspartate Amino Transferase 24 U/L (5-31); Bilirubin Total 0.4 mg/dL (0.0-1.0); Blood Urea Nitrogen 12 mg/dL (9-16); C Reactive Protein 1.14 mg/dL (< or = 0.50); Calcium 9.8 mg/dL (8.4-10.2); Carbon Dioxide 30 mmol/L (22-29); Chloride 101 mmol/L (96-108); Cholesterol 187 mg/dL; Estimated Glomerular Filt Rate > 60; Glucose Random 87 mg/dL (60-115); HDL Cholesterol 44 mg/dL; LDL Cholesterol Calculated 124 mg/dl; Potassium 4.4 mmol/L (3.3-5.1); Sodium 139 mmol/L (135-145); Total Protein 6.8 g/dL (6.5-8.0); Triglycerides 98 mg/dL
[2023-03-06 15:12] LABS: Erythrocyte Sedimentation Rate 53 MM/HR (0-20)
[2023-03-06 15:40] LABS: Folate > 20.0 ng/mL (> or = 4.0); Free T4 (Free Thyroxine) 1.05 ng/dL (0.71-1.85); Thyroid Stimulating Hormone 0.97 uIU/mL (0.32-4.0); Vitamin B12 758 pg/mL (200-900); Vitamin D 25-OH Total 42.5 ng/mL (>30)
== END 2023-03-06 13:03 | disposition home or self-care (01) ==
LOC: HO.LAB 13:02
PROVIDERS: PCP Internal Medicine; Visit Provider Nurse Practitioner Family
DX: M1A.0710 Idiopathic chronic gout, right ankle and foot, without tophus (tophi) (principal); M05.9 Rheumatoid arthritis with rheumatoid factor, unspecified; M81.0 Age-related osteoporosis without current pathological fracture; E78.00 Pure hypercholesterolemia, unspecified
CPT/HCPCS: 36415; 80053; 80061; 82306; 82607; 82746; 84100; 84439; 84443; 84550; 85025; 85652; 86140

== ENCOUNTER 2023-03-28 09:31 | Outpatient (REF) | payer MEDICARE, OTHER, SELFPAY ==
[2023-03-28 10:49] LABS: C Reactive Protein 1.16 mg/dL (< or = 0.50)
[2023-03-28 11:21] LABS: Erythrocyte Sedimentation Rate 38 MM/HR (0-20)
== END 2023-03-28 09:32 | disposition home or self-care (01) ==
LOC: HO.LAB 09:31
PROVIDERS: PCP Nurse Practitioner Family; Visit Provider Nurse Practitioner Family
DX: M35.3 Polymyalgia rheumatica (principal)
CPT/HCPCS: 36415; 85652; 86140

== ENCOUNTER 2023-03-31 09:45 | Outpatient (REF) | payer MEDICARE, SELFPAY ==
[2023-03-31 11:38] LABS: C Reactive Protein 0.42 mg/dL (< or = 0.50)
[2023-03-31 11:49] LABS: Erythrocyte Sedimentation Rate 34 MM/HR (0-20)
[2023-03-31 12:00] LABS: Vitamin D 25-OH Total 41.3 ng/mL (>30)
== END 2023-03-31 09:46 | disposition home or self-care (01) ==
LOC: HO.LAB 09:45
PROVIDERS: PCP Internal Medicine; Visit Provider Nurse Practitioner Family
DX: M81.0 Age-related osteoporosis without current pathological fracture (principal); M35.3 Polymyalgia rheumatica
CPT/HCPCS: 36415; 82306; 85652; 86140

== ENCOUNTER → 2023-04-05 15:25 | Outpatient (BNVA) | payer MEDICARE, SELFPAY | PROVIDERS: PCP Internal Medicine; Visit Provider Nurse Practitioner Family | DX: M05.9 Rheumatoid arthritis with rheumatoid factor, unspecified (principal); M35.3 Polymyalgia rheumatica; M81.0 Age-related osteoporosis without current pathological fracture; M1A.0710 Idiopathic chronic gout, right ankle and foot, without tophus (tophi); M51.36 Other intervertebral disc degeneration, lumbar region; M19.011 Primary osteoarthritis, right shoulder; M19.012 Primary osteoarthritis, left shoulder; Z79.631 Long term (current) use of antimetabolite agent; Z79.899 Other long term (current) drug therapy | CPT/HCPCS: 99212 ==

== ENCOUNTER 2023-04-10 13:18 | Outpatient (AMB) | payer MEDICARE, OTHER, SELFPAY | END 2023-04-10 13:59 | disposition home or self-care (01) | LOC: HO.RHE 13:18 | PROVIDERS: PCP Internal Medicine; Visit Provider Internal Medicine Rheumatology | DX: M81.0 Age-related osteoporosis without current pathological fracture (principal) ==

== ENCOUNTER → 2023-04-10 13:18 | Outpatient (BNVA) | payer MEDICARE, OTHER, SELFPAY | PROVIDERS: PCP Internal Medicine; Visit Provider Internal Medicine Rheumatology | DX: M81.0 Age-related osteoporosis without current pathological fracture (principal) | CPT/HCPCS: J0897 ==

== ENCOUNTER 2023-05-05 10:15 | Outpatient (REF) | payer MEDICARE, OTHER, SELFPAY ==
[2023-05-05 11:33] LABS: Erythrocyte Sedimentation Rate 21 MM/HR (0-20)
[2023-05-05 11:56] LABS: Appearance Urine Clear; Color Urine Dark Yellow; Glucose Urine UA Negative (Negative); Leukocyte Esterase Urine Moderate (2+) (Negative); Nitrite Urine Positive (Negative); PH 5.5 (5.0-9.0); UMIC TRIGGER UA YES; Urine Blood Negative (Negative); Urine Ketones Negative (Negative); Urine Protein Negative (Neg-Trace)
[2023-05-05 12:05] LABS: Bacteria Urine None Seen (None Seen); Hyaline Casts Urine 0-2 /LPF (0-2); RBC Urine 0-2 /HPF (0-2)
[2023-05-05 12:26] LABS: C Reactive Protein 0.71 mg/dL (< or = 0.50)
== END 2023-05-05 10:16 | disposition home or self-care (01) ==
LOC: HO.LAB 10:15
PROVIDERS: Absent Provider Internal Medicine; PCP Internal Medicine; Visit Provider Nurse Practitioner Family
DX: M35.3 Polymyalgia rheumatica (principal)
CPT/HCPCS: 36415; 81001; 85652; 86140

== ENCOUNTER 2023-05-25 10:13 | Outpatient (AMB) | payer MEDICARE, OTHER, SELFPAY ==
[2023-05-25 10:17] VITALS: BP 148/76; PULSE 78; O2SAT 96; BMI 28.3
--- NOTE | 2023-05-25 10:17 | MHC.PC.OV ---
Vital Signs 05/25/23 10:17 Height 5 ft 7 in Weight 181 lb BMI 28.3 BP 148/76 H Blood Pressure Location Lt brachial Position Sitting Pulse 78 Pulse Source Pulse Oximeter Pulse Oximetry (%) 96 Oxygen Delivery Method Room Air Intake Visit Reasons: Rheumatoid arthritis gout hypercholesterolemia hTN Allergies alendronate sodium [From FOSAMAX] Allergy (Severe, Verified 05/25/23 10:18) ANAPHYLAXIS lisinopril [LISINOPRIL] Allergy (Severe, Verified 05/25/23 10:18) ANAPHYLAXIS, cough clarithromycin [CLARITHROMYCIN] Allergy (Intermediate, Verified 05/25/23 10:18) CONFUSION, sores on tongue, dry mouth simvastatin [SIMVASTATIN] Allergy (Mild, Verified 05/25/23 10:18) DRY THROAT, achy, confusion Medication List - Last Reconciled 05/25/23 by Renetta Vides MD allopurinol 100 mg PO DAILY alprazolam 0.125 mg (1/2 x 0.25 mg) PO TID PRN 30 days calcium cal-hii-[id number]-Zn-coppersmith helper-kd [id number] um-tj-ljtg-mg (Calcium Citrate Plus) 1 tab PO DAILY [CMF Bone Stimulator As directed] cyclobenzaprine 5 mg PO TID PRN denosumab (Prolia) 60 mg subcut [id number] fexofenadine (Marisa Allergy) 180 mg PO DAILY folic acid 1 mg PO DAILY hydrochlorothiazide 25 mg PO DAILY meloxicam 15 mg PO DAILY methotrexate sodium 15 mg (6 x 2.5 mg) PO QWEEK metoprolol succinate ER 25 mg PO DAILY montelukast 10 mg PO BEDTIME multivitamin 1 tab PO DAILY naproxen 500 mg PO BID PRN 10 days pantoprazole 40 mg PO DAILY pravastatin 10 mg PO BEDTIME prednisolone acetate 1% 2 drps ophthalmic (eye) BID ropinirole 3 mg PO DAILY sertraline 25 mg PO DAILY tramadol 50 mg PO BID PRN vitamin B complex (B Complex-Vitamin B12 tablet) 1 tab PO DAILY Tobacco use date assessed: 05/12/23 Fall risk assessment: No Falls in past year Last assessed Fall Risk: 05/25/23 Dental Screening Dental Screen Date: 05/25/23 Did you have a dental visit in the last 12 months?: No Did you have a dental problem in the last 6 months where you did not have access to dental care?: No Was dental information given to patient?: No HPI Rheumatoid arthritis gout hypercholesterolemia hTN HPI Details [age] year old female with seropositive rheumatoid arthritis seeing rheumatology lumbar degenerative disc disease osteoporosis GERD hypertension hypercholesterol E and osteoarthritis coming in for follow-up last seen in February 2023. Patient has seen the nurse practitioner in May 12 for preoperative evaluation for a right eye surgery. Patient continues to have Prolia injections April 2023 was the last time. Patient was seen by Rheumatology in March 2023 on methotrexate 6 tablets weekly and folic acid 100 mg of allopurinol every day for gout and for the PMR recent increase in does not go tapering. for the BP - anxious today due to the parking and the computer in the waiting room. going to wedding in [facility] 08/2023 patient is asking for medication to help with anxiety as she has been very anxious with a lot of things going on in her life. [facility] Medical History Anxiety and depression Asthma Fracture of 5th metatarsal Fracture of fifth metatarsal bone of right foot GERD (gastroesophageal reflux disease) Gout High cholesterol Hypercholesterolemia Hypergammaglobulinemia Hypertension Hypertension Lumbar degenerative disc disease Nondisplaced fracture of fifth metatarsal bone, left foot, subsequent encounter for fracture with nonunion Osteoarthritis Osteoarthritis of carpometacarpal (CMC) joint of right thumb Osteoarthritis of shoulders, bilateral Osteoporosis Overweight (BMI 25.0-29.9) Peripheral neuropathy Polymyalgia rheumatica Restless leg syndrome Rheumatoid arthritis Rheumatoid arthritis Seizure disorder Seropositive rheumatoid arthritis Thrush, oral Surgical History Corneal transplant status H/O left knee surgery History of appendectomy History of arthroplasty of right hip History of cholecystectomy History of corneal transplant History of open reduction and internal fixation (ORIF) procedure History of total abdominal hysterectomy Family History Father CVD (cardiovascular disease) Mother No problems noted. Social History Housing: House Alcohol intake: current Alcohol intake frequency: a few times a month Alcohol type: wine Patient Tobacco Use Status: Never used Tobacco e-Cigarette/Vaping Use: Never Used Second Hand Smoke Exposure: No service: No Current occupational status: retired Cognitive needs: No Hearing needs: Yes Vision needs: Yes Questionnaire PHQ-9 Over the last 2 weeks, how often have you been bothered by any of the following problems? 1. Little interest or pleasure in doing things: more than half the days 2. Feeling down, depressed, or hopeless: several days 3. Trouble falling or staying asleep, or sleeping too much: several days 4. Feeling tired or having little energy: more than half the days 5. Poor appetite or overeating: not at all 6. Feeling bad about yourself - or that you are a failure or have let yourself or your family down: several days 7. Trouble concentrating on things, such as reading the newspaper or watching television: not at all 8. Moving or speaking so slowly that other people could have noticed. Or the opposite - being so fidgety or restless that you have been moving around a lot more than usual: not at all 9. Thoughts that you would be better off or of hurting yourself in some way: not at all Total score: 7 Depression Screening Interpretation: Positive (1-4; minimal, 5-9; mild depression, 10-14; moderate depression) Depression Screening Follow-up: Other (will continue to follow, may benefit from starting antidepresant. ) Source: Developed by Drs. Montana Salmon, Annalise Muse, Chris Montana and colleagues, with an educational shiela from [employer]. Thrive Questionnaire Date Thrive assessed: 11/15/22 AUDIT C Alcohol Use Questionnaire (AUDIT-C) 1. How often do you have a drink containing alcohol?: 2-3 times a week 2. How many drinks containing alcohol do you have on a typical day when you are drinking?: 1 or 2 3. How often do you have six or more drinks on one occasion?: Never Total Score: 3 LIYA-7 AMB Questionnaire LIYA-7 Date LIYA - 7 assessed: 11/15/22 Source: Developed by Drs. Montana Salmon, Annalise Muse, Chris Montana and colleagues, with an educational shiela from [employer]. Physical exam (Primary Care) Vital Signs: Last Vital Signs Pulse 78 05/25/23 10:17 BP 148/76 H 05/25/23 10:17 Pulse Ox 96 05/25/23 10:17 Oxygen Delivery Method Room Air 05/25/23 10:17 BMI result Body Mass Index 28.3 Tobacco/Smoking Status: Tobacco use Status Tobacco use date assessed 05/12/23 05/25/23 10:20 Patient Tobacco Use Status Never used Tobacco 05/25/23 10:20 e-Cigarette/Vaping Use Never Used 05/25/23 10:20 PHQ-9: PHQ-9 Score PHQ-9: Total score 7 05/25/23 10:24 Depression Screening Interpretation: Positive (1-4; minimal, 5-9; mild depression, 10-14; moderate depression) Depression Screening Follow-up: Other (will continue to follow, may benefit from starting antidepresant. ) Thrive Assessment: Date of Thrive Assessment Date Thrive assessed 11/15/22 05/25/23 10:20 Const General: alert; No acute distress Eyes Conjunctivae: conjunctivae normal Resp Auscultation: clear to auscultation bilaterally Cardio Rate: regular rate Rhythm: regular rhythm GI Inspection: Yes normal to inspection Extrem General: Yes normal to inspection and No edema Assessment and Plan Assessment & Plan (1) Osteoporosis: Comment: Boniva: 2011 to 2019. Alendronate: experienced anaphylaxis patient cannot recall what happened with this. Prolia recommended, January 2022 and reinforced at every subsequent visit Code(s): M81.0 - Age-related osteoporosis without current pathological fracture Qualifiers: Osteoporosis type: age-related Presence of current pathological fracture: without current pathological fracture Qualified Code(s): M81.0 - Age-related osteoporosis without current pathological fracture Plan: Patient is being followed up by Rheumatology on Prolia shot (2) Hypertension: Code(s): I10 - Essential (primary) hypertension Qualifiers: Hypertension type: essential hypertension Qualified Code(s): I10 - Essential (primary) hypertension Plan: Continue with blood pressure medication. Decrease salt intake and exercise patient does take hydrochlorothiazide 25 mg once a day metoprolol 25 mg once a day (3) Hypercholesterolemia: Code(s): E78.00 - Pure hypercholesterolemia, unspecified Plan: Avoid fried foods, chicken skin, eggs, butter margarine, pastries and meat. Be it pork or beef they have a lot of cholesterol LDL goal of less than 130 on pravastatin 10 mg once a day (4) GERD (gastroesophageal reflux disease): Code(s): K21.9 - Gastro-esophageal reflux disease without esophagitis Qualifiers: Esophagitis presence: without esophagitis Qualified Code(s): K21.9 - Gastro-esophageal reflux disease without esophagitis Plan: Avoid the foods that causes that usually spicy foods, tomato products, juices, coffee, soda and foods that your sensitive to. After eating do not lie down, allow 3-4 hours before in lie down. And keep the head of bed above 30 degrees to avoid the acid from going up. (5) Seropositive rheumatoid arthritis: Comment: Methotrexate - 2016-present currently 6 tabs weekly Xeljanx 11/2019-06/2020 Humira 10/2018-02/2019 Simponi Aria infusions- January 2016 Remicade 08/2014-01/2015 Enbrel - prior to 2013 Code(s): M05.9 - Rheumatoid arthritis with rheumatoid factor, unspecified Plan: Patient is being followed up by Rheumatology on methotrexate (6) Polymyalgia rheumatica: Code(s): M35.3 - Polymyalgia rheumatica Plan: Continuing to taper steroids (7) Generalized anxiety disorder: Comment: Declined referral for counseling May 2023 Code(s): F41.1 - Generalized anxiety disorder Plan: Medications started Medications: New sertraline 25 mg PO DAILY 30 tabs 3RF F41.1 - Generalized anxiety disorder Coding Level of Care Code Est Pt Level 4 (59314) Diagnoses Osteoporosis M81.0 Osteoporosis type: age-related Presence of current pathological fracture: without current pathological fracture Hypertension I10 Hypertension type: essential hypertension Hypercholesterolemia E78.00 GERD (gastroesophageal reflux disease) K21.9 Esophagitis presence: without esophagitis Seropositive rheumatoid arthritis M05.9 Polymyalgia rheumatica M35.3 Generalized anxiety disorder F41.1 Additional Codes PHQ-9 - 33290 - PHQ-9 Billing: Y ([id number])
== END 2023-05-25 10:41 | disposition home or self-care (01) ==
PROVIDERS: PCP Internal Medicine; Visit Provider Internal Medicine
DX: I10 Essential (primary) hypertension (principal); K21.9 Gastro-esophageal reflux disease without esophagitis; M05.9 Rheumatoid arthritis with rheumatoid factor, unspecified; M35.3 Polymyalgia rheumatica; F41.1 Generalized anxiety disorder; E78.00 Pure hypercholesterolemia, unspecified; M81.0 Age-related osteoporosis without current pathological fracture
CPT/HCPCS: 96127; 99214

== ENCOUNTER 2023-06-14 13:23 | Outpatient (REF) | payer MEDICARE, SELFPAY ==
[2023-06-14 13:51] LABS: MANUAL DIFF FLAG NO
[2023-06-14 15:29] LABS: Basophils Absolute Auto 0.1 X10*3/uL (0.0-0.2); Eosinophils Absolute Auto 0.2 X10*3/uL (0.0-0.4); Eosinophils Percent Auto 2.2 % (0-4); Hematocrit 39.6 % (37.0-47.0); Hemoglobin 12.9 g/dl (12.0-16.0); Imm Gran Abs Auto 0.04 X10*3/uL (0.00-0.03); Imm Gran Pct Auto 0.4 % (0.0-0.4); Lymphocytes Absolute Auto 2.6 X10*3/uL (1.2-4.9); Lymphocytes Percent Auto 28.9 % (20-40); Mean Corpuscular HGB Conc 32.6 g/dl (31.0-35.0); Mean Corpuscular Hemoglobin 29.9 pg (27.0-33.0); Mean Corpuscular Volume 91.7 fL (80.0-98.0); Mean Platelet Volume 9.6 fL (9.4-12.3); Monocytes Absolute Auto 0.7 X10*3/uL (0.1-1.2); Monocytes Percent Auto 7.5 % (2-11); Neutrophils Absolute Auto 5.5 x10*3/uL (2.0-8.3); Platelet Count 294 X10*3/uL (160-400); Red Blood Count 4.32 X10*6/uL (4.20-5.50); Red Cell Distribution Width 13.6 % (11.0-16.0); White Blood Count 9.1 X10*3/uL (4.8-10.8)
[2023-06-14 17:06] LABS: Erythrocyte Sedimentation Rate 27 MM/HR (0-20)
[2023-06-14 17:15] LABS: Alanine Aminotransferase 17 U/L (0-31); Aspartate Amino Transferase 23 U/L (5-31); Estimated Glomerular Filt Rate > 60
== END 2023-06-14 13:24 | disposition home or self-care (01) ==
LOC: HO.LAB 13:23
PROVIDERS: PCP Internal Medicine; Visit Provider Internal Medicine Rheumatology
DX: M05.9 Rheumatoid arthritis with rheumatoid factor, unspecified (principal); Z79.899 Other long term (current) drug therapy
CPT/HCPCS: 36415; 82565; 84450; 84460; 85025; 85652; 86140

== ENCOUNTER 2023-06-19 11:21 | Outpatient (AMB) | payer MEDICARE, OTHER, SELFPAY ==
--- NOTE | 2023-06-19 11:23 | A.OFFVIS_ITS ---
Intake Vital Signs 06/19/23 11:24 Height 5 ft 7 in Weight 177 lb 7.554 oz BMI 27.8 BP 104/60 Blood Pressure Location Rt brachial Position Sitting Pulse 60 Pulse Source Pulse Oximeter Temp 97 F Temp Source Skin Pulse Oximetry (%) 96 Oxygen Delivery Method Room Air Intake Visit Reasons: PMR/RA Intake Note: Here for PMR and RA follow up. C/o of gayle shoulder pain. New onset of left ankle pain x few weeks . Entertainment Lawyer Required: No Accompanied by: Self / Same As Patient Allergies alendronate sodium [From FOSAMAX] Allergy (Severe, Verified 06/19/23 11:23) ANAPHYLAXIS lisinopril [LISINOPRIL] Allergy (Severe, Verified 06/19/23 11:23) ANAPHYLAXIS, cough clarithromycin [CLARITHROMYCIN] Allergy (Intermediate, Verified 06/19/23 11:23) CONFUSION, sores on tongue, dry mouth simvastatin [SIMVASTATIN] Allergy (Mild, Verified 06/19/23 11:23) DRY THROAT, achy, confusion HPI HPI Comments History of Present Illness Details The patient returns for evaluation of her rheumatoid arthritis. She was last seen by Nenita in March. She remains on methotrexate 15 mg weekly, douglas xicam 15 mg daily, tramadol 50 mg b.i.d., folic acid 1 mg daily, allopurinol 100 mg daily, and prednisone 2 mg daily. Overall she says she has a fair amount of pain. This involves mostly the lower back but also the hands, feet and left shoulder. She received the Prolia injection for osteoporosis in April and there is another injection planned in early October. That was apparently tolerated well. She is on the allopurinol 100 mg daily for presumed gout but does not really have a clear history that she had a gout attack. She had foot pain and it was assumed it was gout. In any case she has been on it for while with good control of hyperuricemia and no attacks of gout have been recalled. She also was thought to have PMR although I think but they are treating use the RA rather than the PMR. However she does take an occasional extra 5 mg prednisone a feels a bit better. Mostly this is for her left shoulder and back pain. [facility] Medical History (Updated 06/18/23 @ 14:27 by Joe Wolff MD) Anxiety and depression Asthma Fracture of 5th metatarsal Fracture of fifth metatarsal bone of right foot GERD (gastroesophageal reflux disease) Gout High cholesterol Hypercholesterolemia Hypergammaglobulinemia Hypertension Hypertension Lumbar degenerative disc disease Nondisplaced fracture of fifth metatarsal bone, left foot, subsequent encounter for fracture with nonunion Osteoarthritis Osteoarthritis of carpometacarpal (CMC) joint of right thumb Osteoarthritis of shoulders, bilateral Osteoporosis Overweight (BMI 25.0-29.9) Peripheral neuropathy Polymyalgia rheumatica Restless leg syndrome Rheumatoid arthritis Rheumatoid arthritis Seizure disorder Seropositive rheumatoid arthritis Thrush, oral Surgical History Corneal transplant status H/O left knee surgery History of appendectomy History of arthroplasty of right hip History of cholecystectomy History of corneal transplant History of open reduction and internal fixation (ORIF) procedure History of total abdominal hysterectomy Family History Father CVD (cardiovascular disease) Mother No problems noted. Social History Housing: House Alcohol intake: current Alcohol intake frequency: a few times a month Alcohol type: wine Patient Tobacco Use Status: Never used Tobacco e-Cigarette/Vaping Use: Never Used Second Hand Smoke Exposure: No service: No Current occupational status: retired Cognitive needs: No Hearing needs: Yes Vision needs: Yes Review of Systems Const Details: Low energy. Negative for appetite change, weight change, fever, chills, malaise Eyes Details: Negative for vision change, dry eyes,headaches and dizziness ENT Details: Negative for hearing change, tinnitus, oral ulcer, nose bleeds and oral dryness. Card Details: Negative chest pain, edema and syncope Resp Details: Negative for SOB, cough and wheezing GI Details: Negative indigestion/heartburn, nausea, abdominal pain, bowel changes, diarrhea, constipation and bloody stool. Inderjit/Lymph Details: Negative for excessive bruising or bleeding. Physical Exam Vital Signs: Last Vital Signs Temp 97 F 06/19/23 11:24 Pulse 60 06/19/23 11:24 BP 104/60 06/19/23 11:24 Pulse Ox 96 06/19/23 11:24 Oxygen Delivery Method Room Air 06/19/23 11:24 BMI result Body Mass Index 27.8 APPEARANCE: Patient in no acute distress EYES no redness, pupils equal and reactive to light, eyelids normal. No temporal artery tenderness, redness or swelling. EXTREMITIES: No edema, no calf tenderness, normal peripheral pulses. JOINT EXAM: ?? Cervical Spine: Full range of motion with slight pain at the extremes.; no tenderness to palpation over the cervical spine.? Tenderness to palpation over the cervical spinal muscles. Thoracic Spine:? No tenderness on palpation. Lumbar Spine:? Alignment normal.? Mild pain with flexion at 60 degrees. There is no tenderness to palpation of lumbar spine but there is some paraspinal muscle tenderness. Hands: ?LEFT:? Normal pain-free range of motion without swelling, increased warmth or erythema. Able to make a full fist and has a good room attendants strength.? Bony enlargement at the thumb IP and the PIP joints.. Slight bony enlargement and tenderness at the DIP joints throughout. ? RIGHT:? Normal pain free range of motion.? Ojed-ni-rntbylko tenderness to palpation of the CMC with mild bony enlargement.? No increased warmth or erythema.? Able to make a full fist and has good room attendants strength.? Bony enlargement 3rd PIP.? Heberden's nodes noted, tenderness to palpation of the DIP joints throughout. Wrists:? LEFT: Normal pain-free range of motion with mild dorsal tenderness but no swelling, increased warmth or erythema. ? RIGHT: Normal pain-free range of motion without tenderness, swelling, increased warmth or erythema. Elbows:? Normal pain-free range of motion without tenderness, swelling, increased warmth or erythema. Shoulders:? LEFT: Mild to moderate pain with abduction at 90 degrees or with more than 20 degrees of internal or external rotation. There is mild anterior, subacromial and posterior tenderness with some abductor weakness but no swelling. No adenopathy. Right: Full range of motion, some pain with flexion and abduction at 150 degrees.? Tenderness to palpation at the bicipital groove, AC joint and posterior shoulder.? No weakness, swelling, increased warmth or erythema. Hip: Right: Some decrease in motion but without pain. Left: Normal pain-free Range of motion. Hip bursa:? No tenderness. Knees:? Normal pain-free range of motion without tenderness, swelling, increased warmth or erythema.? There is no effusion or crepitation.? Healed arthroplasty scars noted bilaterally. Ankles: normal pain-free range of motion without tenderness, swelling, increased warmth or erythema.? Tenderness reported to palpation along both shins.? No swelling, erythema or calf tenderness noted. Feet:? Pain-free range of motion with mild 1st MTP bony enlargement. There is some slight 1st MTP tenderness bilaterally. No soft tissue swelling, increased warmth or erythema. ? RIGHT:? Pain-free range of motion without tenderness, swelling, increased warmth erythema. Office Procedures Joint Injection/Drain Joint Injection/Drain Primary Site: left shoulder Injected: 40 mg of, Kenalog, with 1 mL of and 1% plain lidocaine Coding Details: With the patient's consent the left shoulder was prepped with ChloraPrep and alcohol. Under a topical ethyl chloride spray the left subacromial space was injected with 40 mg of triamcinolone and 1 cc of 1% lidocaine. The patient tolerated the procedure without any acute adverse effects. 72108 - Large joint Procedure code (CPT) selection complete Results Reviewed Results Reviewed: Laboratory Tests 06/14/23 06/14/23 06/14/23 13:49 13:49 13:49 WBC 9.1 Hgb 12.9 ESR 27 H Creatinine 0.87 AST 23 ALT 17 C-Reactive Protein 0.80 H [place] [address] XRay Report Signed Patient: Ellie Alcocer MR#: [id number] : 1940 Acct:[id number] Age/Sex: 82 / F ADM Date: 11/28/[address]: Kayleigh Aggarwal NP Ordering Physician: Kayleigh Aggarwal NP Date of Service: 11/28/22 Procedure(s): XR shoulder RT min 2V Accession Number(s): [id number] cc: Kayleigh Aggarwal NP~ EXAMINATION: XR SHOULDER, LEFT XR SHOULDER, RIGHT CLINICAL INFORMATION: Pain? COMPARISON: None? TECHNIQUE: 4 views of each shoulder? FINDINGS: Left shoulder: No fracture or dislocation. The glenohumeral joint is appropriately aligned. Severe joint space narrowing with gmvo-kq-[id number] appearance. Small marginal osteophytes inferiorly. The acromioclavicular joint is intact. The visualized lung is clear. Right shoulder: No fracture or dislocation. The glenohumeral joint is appropriately aligned. There is severe joint space narrowing with rnkg-np-eqeh appearance. Small inferior marginal osteophytes. The acromioclavicular joint is intact. The visualized lung is clear.? XR/XR shoulder RT min 2V IMPRESSION: Severe joint space narrowing of both glenohumeral joints with djxz-qy-swaa appearance. ? Dictated By: William Dickson MD Signed By: <Electronically signed by William Dickson MD in OV> 11/29/22 1110 Assessment & Plan Assessment & Plan (1) Spondylosis of lumbar spine: Code(s): M47.816 - Spondylosis without myelopathy or radiculopathy, lumbar region (2) Osteoarthritis of shoulders, bilateral: Code(s): M19.011 - Primary osteoarthritis, right shoulder; M19.012 - Primary osteoarthritis, left shoulder (3) residential use of drug: Code(s): Z79.899 - Other intermediate (current) drug therapy (4) Seropositive rheumatoid arthritis: Comment: Methotrexate - 2016-present currently 6 tabs weekly Xeljanx 11/2019-06/2020 Humira 10/2018-02/2019 Simponi Aria infusions- January 2016 Remicade 08/2014-01/2015 Enbrel - prior to 2013 Code(s): M05.9 - Rheumatoid arthritis with rheumatoid factor, unspecified Plan Rheumatoid arthritis with I think good control of synovitis with current regimen. I do not seen of synovitis here to push for adding additional DMARD. I doubt that she has PMR but more likely has had some benefit in the past with prednisone for her RA. Additionally I do not really get a strong history that she actually ever had a gout attack. Unfortunately she has some significant findings of osteoarthritis in the hands, shoulders, and lumbar spine. The methotrexate, prednisone, and meloxicam seem to be tolerated well so we will continue as above. I think the OA in the glenohumeral joints is likely secondary to rotator cuff damage. Corticosteroid injection on the left is recommended. With the patient's consent the left shoulder was prepped with ChloraPrep and alcohol. Under a topical ethyl chloride spray the left subacromial space was injected with 40 mg of triamcinolone and 1 cc of 1% lidocaine. The patient tolerated the procedure without any acute adverse effects. I also instructed her in some gentle, gjiel-gq-daunvs exercises to do for the shoulders. We will see her back in about 3 months and she will continue with the 50 mg b.i.d. tramadol as she seems to tolerate it without side effects. She has a wedding planned in August and wants to feel a bit fitter to go there. I encouraged gentle aerobic activities. I told her she could take an extra 5 mg of prednisone the day before, the day of the wedding in the day after to help get her through that time.. Orders: Orders AMB Joint Injection/Aspiration Today M19.011 - Primary osteoarthritis, right shoulder, M19.012 - Primary osteoarthritis, left shoulder Coding Level of Care Code Est Pt Level 3 (73834) Diagnoses Spondylosis of lumbar spine M47.816 Osteoarthritis of shoulders, bilateral M19.011; M19.012 long term care administrator use of drug Z79.899 Seropositive rheumatoid arthritis M05.9 CPT Codes Coding - 25603 Large joint: 01367 - Large joint ([id number])
[2023-06-19 11:24] VITALS: BP 104/60; PULSE 60; TEMP 36.1; O2SAT 96; BMI 27.8
== END 2023-06-19 12:15 | disposition home or self-care (01) ==
PROVIDERS: PCP Internal Medicine; Visit Provider Internal Medicine Rheumatology
DX: M35.3 Polymyalgia rheumatica (principal); M05.79 Rheumatoid arthritis with rheumatoid factor of multiple sites without organ or systems involvement
CPT/HCPCS: 20610; 99214

== ENCOUNTER → 2023-06-19 11:21 | Outpatient (BNVA) | payer MEDICARE, OTHER, SELFPAY | PROVIDERS: PCP Internal Medicine; Visit Provider Internal Medicine Rheumatology | DX: M05.9 Rheumatoid arthritis with rheumatoid factor, unspecified (principal); M35.3 Polymyalgia rheumatica; M81.0 Age-related osteoporosis without current pathological fracture; M47.816 Spondylosis without myelopathy or radiculopathy, lumbar region; M19.011 Primary osteoarthritis, right shoulder; M19.012 Primary osteoarthritis, left shoulder; Z79.631 Long term (current) use of antimetabolite agent; Z79.899 Other long term (current) drug therapy | CPT/HCPCS: 20610 ==

== ENCOUNTER 2023-07-08 23:24 | Emergency (ER) | payer MEDICARE, OTHER, SELFPAY ==
--- NOTE | 2023-07-08 23:27 | ECG_ITS ---
Test Reason : CHEST PAIN Blood Pressure : / mmHG Vent. Rate : 067 BPM Atrial Rate : 067 BPM P-R Int : 172 ms QRS Dur : 086 ms QT Int : 416 ms P-R-T Axes : 048 028 054 degrees QTc Int : 439 ms Normal sinus rhythm Possible Left atrial enlargement Low voltage QRS Borderline ECG When compared with ECG of 27-FEB-2023 08:23, No significant change was found Referred By: Dinora Cope Electronically Signed By:KASHIF BAILEY
[2023-07-08 23:30] VITALS: BP 178/92; O2SAT 99; BMI 28.2
[2023-07-08 23:48] LABS: MANUAL DIFF FLAG NO
[2023-07-08 23:50] VITALS: BP 164/72; PULSE 69; RESP 14; TEMP 36.3; O2SAT 99
[2023-07-08 23:54] LABS: Basophils Percent Auto 0.3 % (0-2); Eosinophils Absolute Auto 0.1 X10*3/uL (0.0-0.4); Eosinophils Percent Auto 0.8 % (0-4); Hematocrit 39.5 % (37.0-47.0); Hemoglobin 13.2 g/dl (12.0-16.0); Imm Gran Abs Auto 0.04 X10*3/uL (0.00-0.03); Imm Gran Pct Auto 0.5 % (0.0-0.4); Lymphocytes Absolute Auto 1.9 X10*3/uL (1.2-4.9); Lymphocytes Percent Auto 21.7 % (20-40); Mean Corpuscular HGB Conc 33.4 g/dl (31.0-35.0); Mean Corpuscular Hemoglobin 29.5 pg (27.0-33.0); Mean Corpuscular Volume 88.2 fL (80.0-98.0); Mean Platelet Volume 8.8 fL (9.4-12.3); Monocytes Absolute Auto 0.5 X10*3/uL (0.1-1.2); Monocytes Percent Auto 6.2 % (2-11); Neutrophils Absolute Auto 6.2 x10*3/uL (2.0-8.3); Neutrophils Percent Auto 70.5 % (45-73); Platelet Count 261 X10*3/uL (160-400); Red Blood Count 4.48 X10*6/uL (4.20-5.50); Red Cell Distribution Width 13.9 % (11.0-16.0); White Blood Count 8.8 X10*3/uL (4.8-10.8)
[2023-07-09] MEDS: ondansetron HCL 4 MG/2 ML VIAL IVPUSH ×2 (00:01→06:08)
[2023-07-09 00:04] LABS: INTERNATIONAL NORM RATIO 0.9 (0.9-1.1); Prothrombin Time 10.4 SEC (11.1-13.3)
[2023-07-09] MEDS: 0.9 % Sodium Chloride 1,000 ML 999 ML IV (00:04)
[2023-07-09 00:08] LABS: Alanine Aminotransferase 16 U/L (0-31); Albumin Level 3.8 g/dL (3.5-5.0); Alkaline Phosphatase 83 U/L (39-117); Anion Gap 13 (12-20); Aspartate Amino Transferase 24 U/L (5-31); Bilirubin Total 0.4 mg/dL (0.0-1.0); Blood Urea Nitrogen 15 mg/dL (9-16); Calcium 10.3 mg/dL (8.4-10.2); Carbon Dioxide 27 mmol/L (22-29); Chloride 101 mmol/L (96-108); Creatinine Clr Calc Pharmacy 61.9; Estimated Glomerular Filt Rate > 60; Glucose Random 117 mg/dL (60-115); Potassium 3.9 mmol/L (3.3-5.1); Sodium 137 mmol/L (135-145); Total Protein 7.4 g/dL (6.5-8.0)
[2023-07-09 00:12] LABS: Troponin-I High Sensitivity < 2.7 ng/L (<3.5-17.0)
--- NOTE | 2023-07-09 00:39 | ED_ITS ---
HPI - Dizziness General Chief Complaint: Nausea/Vomiting/Diarrhea Stated Complaint: vomiting x 5hrs Time Seen by Provider: 07/08/23 23:26 Source: patient Mode of arrival: EMS History of Present Illness HPI Narrative: 83-year-old female who states that she feels like she may be having an attack of her many years disease which she was diagnosed with 8-9 months ago. Patient states that she had an episode of dizziness yesterday with an episode of vomiting but then took the medication in at resolved. Patient states that she took meclizine this morning as well as this afternoon but then developed dizziness with multiple episodes of nausea and vomiting and now feels shaky. She denies any visual disturbance or speech difficulties and denies any difficulty with ambulation and otherwise denies any fevers or chills or urinary symptoms. Related Data Home Medications Medication Instructions Recorded Confirmed calcium cit 250 mg-mag 40 mg-D3 1 tab PO DAILY 09/04/20 05/25/23 125 unit-zinc 3.75 mg-gyroscopic instrument mechanic-kd tablet (Calcium Citrate Plus) fexofenadine 180 mg tablet 180 mg PO DAILY 09/04/20 05/25/23 (Marisa Allergy) multivitamin 1 tab PO DAILY 09/04/20 05/25/23 prednisolone acetate 1 % eye 2 drp ophthalmic (eye) BID 09/04/20 05/25/23 drops,suspension vitamin B complex (B 1 tab PO DAILY 09/04/20 05/25/23 Complex-Vitamin B12 tablet) clotrimazole 10 mg abby mg PO TID 06/19/23 meclizine 25 mg tablet 25 mg PO TID PRN 06/19/23 sodium chloride 5 % eye drops 0 drp ophthalmic (eye) 06/19/23 sodium chloride 5 % eye ointment ophthalmic (eye) 06/19/23 Previous Rx's Medication Instructions Recorded CMF Bone Stimulator #1 ea 10/09/20 hydrochlorothiazide 25 mg tablet 25 mg PO DAILY #90 tabs 10/23/22 montelukast 10 mg tablet 10 mg PO BEDTIME #90 tabs 10/24/22 ropinirole 3 mg tablet 3 mg PO DAILY #90 tabs 12/11/22 pantoprazole 40 mg tablet,delayed 40 mg PO DAILY #90 tabs 12/22/22 release meloxicam 15 mg tablet 15 mg PO DAILY #90 tabs 01/12/23 metoprolol succinate 25 mg 25 mg PO DAILY #90 tabs 01/12/23 tablet,extended release 24 hr denosumab 60 mg/mL subcutaneous 60 mg subcut [id number] #1 mL 02/21/23 syringe (Prolia) cyclobenzaprine 5 mg tablet 5 mg PO TID PRN muscle spasm #10 02/27/23 tabs alprazolam 0.25 mg tablet 0.125 mg PO TID PRN anxiety 30 03/01/23 days #30 tabs allopurinol 100 mg tablet 100 mg PO DAILY #90 tabs 03/29/23 folic acid 1 mg tablet 1 mg PO DAILY #90 tabs 05/12/23 sertraline 25 mg tablet 25 mg PO DAILY #90 tabs 05/26/23 tramadol 50 mg tablet 50 mg PO BID PRN pain #60 tabs 05/29/23 methotrexate sodium 2.5 mg tablet 15 mg PO QWEEK #72 tabs 06/08/23 pravastatin 10 mg tablet 10 mg PO BEDTIME #90 tabs 06/16/23 Allergies Allergy/AdvReac Type Severity Reaction Status Date / Time alendronate sodium Allergy Severe ANAPHYLAXIS Verified 06/19/23 11:23 [From FOSAMAX] lisinopril [LISINOPRIL] Allergy Severe ANAPHYLAXIS, Verified 06/19/23 11:23 cough clarithromycin Allergy Intermediate CONFUSION, Verified 06/19/23 11:23 [CLARITHROMYCIN] sores on tongue, dry mouth simvastatin [SIMVASTATIN] Allergy Mild DRY Verified 06/19/23 11:23 THROAT, achy, confusion Review of Systems Review of Systems: Pertinent positives and negatives as stated in HPI [facility] Past Medical History Source: nursing notes reviewed Medical History Anxiety and depression Asthma Fracture of 5th metatarsal Fracture of fifth metatarsal bone of right foot GERD (gastroesophageal reflux disease) Gout High cholesterol Hypercholesterolemia Hypergammaglobulinemia Hypertension Hypertension Lumbar degenerative disc disease Nondisplaced fracture of fifth metatarsal bone, left foot, subsequent encounter for fracture with nonunion Osteoarthritis Osteoarthritis of carpometacarpal (CMC) joint of right thumb Osteoarthritis of shoulders, bilateral Osteoporosis Overweight (BMI 25.0-29.9) Peripheral neuropathy Polymyalgia rheumatica Restless leg syndrome Rheumatoid arthritis Rheumatoid arthritis Seizure disorder Seropositive rheumatoid arthritis Thrush, oral Surgical History Corneal transplant status H/O left knee surgery History of appendectomy History of arthroplasty of right hip History of cholecystectomy History of corneal transplant History of open reduction and internal fixation (ORIF) procedure History of total abdominal hysterectomy Family History Family History Father CVD (cardiovascular disease) Mother No problems noted. Social History Social History Housing: House Alcohol intake: current Alcohol intake frequency: a few times a month Alcohol type: wine Patient Tobacco Use Status: Never used Tobacco Smoked in Last 30 Days: No e-Cigarette/Vaping Use: Never Used Second Hand Smoke Exposure: No Use of substances other than those prescribed or required for medical reasons: No Advance Directives: No Advance Directives Information Provided: Yes service: No Current occupational status: retired Cognitive needs: No Hearing needs: Yes Vision needs: Yes Physical Exam Vital Signs: Vital Signs: Last Vital Signs Temp 97.7 F 07/09/23 01:46 Pulse 69 07/09/23 01:46 Resp 18 07/09/23 01:46 BP 147/70 H 07/09/23 01:46 Pulse Ox 99 07/09/23 01:46 O2 Del Method Room Air 07/09/23 01:46 BMI result Body Mass Index 28.2 VITAL SIGNS: Reviewed. GENERAL: Well developed, well nourished, in no acute distress. HEAD: Normocephalic/atraumatic EYES: PERRLA, EOMI EARS: Ext canals without abnormality NOSE: Nares patent bilateral OROPHARYNX: no oral lesions noted, posterior pharynx clear NECK: Supple, no adenopathy LUNGS: Normal breath sounds. No adventitious sounds or accessory muscle use. SpO2<99> CARDIOVASCULAR: Regular rate and rhythm without noted murmurs ABDOMEN: Soft, non-tender, non-distended with bowel sounds. MUSCULOSKELETAL: No tenderness, deformities, or effusions noted on gross inspection. EXTREMITIES: No cyanosis, clubbing or edema. SKIN: Inspection of the skin reveals no rashes NEUROLOGIC: Alert and oriented x 4. Strength and sensation to light touch were grossly intact x 4. Medications Administered Discontinued Medications Generic Name Dose Route Start Last Admin Trade Name Freq PRN Reason Stop Dose Admin Sodium Chloride 1,000 mls @ 999 mls/hr 07/09/23 00:00 07/09/23 00:04 Ns IV 07/09/23 01:00 999 mls/hr .Q1H1M APURVA Administration Ondansetron HCl 4 mg 07/08/23 23:26 07/09/23 00:01 Ondansetron Hcl 4 Mg/2 Ml Vial IVPUSH 07/08/23 23:27 4 mg ONCE ONE Administration Medical Decision Making Medical Decision Making [facility] Narrative: 83-year-old female with history and clinical presentation, DDX: Meniere's, BPPV, viral illness, infections, anemia, electrolyte abnml. There are no focal deficits. I reviewed all investigations and hematologic indices are grossly within normal limits without evidence of acute infection, patient is afebrile there is no leukocytosis or left shift, there is no thrombocytopenia or anemia. Coagulation studies are grossly within normal limits and chemistry indices to not demonstrate any significant electrolyte abnormalities, there is no JORGE LUIS and liver enzymes are within normal limits, troponin is undetectable. Urinalysis is negative for UTI or hematuria. 0156: On re-evaluation after IV fluid patient is feeling much better, will provide p.o. challenge and if patient tolerates then will discharge home. Signed out to Dr Wilkins Differential Diagnosis Differential Diagnoses: The differential diagnosis associated with the presentation includes Please see the discussion above Admission/Observation Consideration of admission/observation: Escalation of care including admission/observation considered Please see the discussion above Lab Data [facility] Lab Attestation statement: I reviewed the patient's lab results. Please see the discussion above 07/08/23 23:44 07/08/23 23:44 Labs: Lab Results 07/08/23 07/08/23 07/08/23 Range/Units 23:44 23:44 23:44 WBC 8.8 (4.8-10.8) X10*3/uL RBC 4.48 (4.20-5.50) X10*6/uL Hgb 13.2 (12.0-16.0) g/dl Hct 39.5 (37.0-47.0) % MCV 88.2 (80.0-98.0) fL MCH 29.5 (27.0-33.0) pg MCHC 33.4 (31.0-35.0) g/dl RDW 13.9 (11.0-16.0) % Plt Count 261 (160-400) X10*3/uL MPV 8.8 L (9.4-12.3) fL Immature Gran % (Auto) 0.5 H (0.0-0.4) % Neut % (Auto) 70.5 (45-73) % Lymph % (Auto) 21.7 (20-40) % [place] % (Auto) 6.2 (2-11) % Eos % (Auto) 0.8 (0-4) % Baso % (Auto) 0.3 (0-2) % Lymph # (Auto) 1.9 (1.2-4.9) X10*3/uL [place] # (Auto) 0.5 (0.1-1.2) X10*3/uL Eos # (Auto) 0.1 (0.0-0.4) X10*3/uL Baso # (Auto) 0.0 (0.0-0.2) X10*3/uL Abs Immat Gran (auto) 0.04 H (0.00-0.03) X10*3/uL Absolute Neuts (auto) 6.2 (2.0-8.3) x10*3/uL Absolute Nucleated RBC 0.000 (0.0-0.012) X10*3/uL Nucleated RBC % (auto) 0.0 (0.0-0.2) /100WBC PT 10.4 L (11.1-13.3) SEC INR 0.9 (0.9-1.1) Sodium 137 (135-145) mmol/L Potassium 3.9 (3.3-5.1) mmol/L Chloride 101 (96-108) mmol/L Carbon Dioxide 27 (22-29) mmol/L Anion Gap 13 (12-20) BUN 15 (9-16) mg/dL Creatinine 0.73 (0.5-1.4) mg/dL Estim Creat Clear Calc 61.9 Estimated GFR > 60 Random Glucose 117 H (60-115) mg/dL Calcium 10.3 H (8.4-10.2) mg/dL Total Bilirubin 0.4 (0.0-1.0) mg/dL AST 24 (5-31) U/L ALT 16 (0-31) U/L Alkaline Phosphatase 83 (39-117) U/L Troponin I High Sens (<3.5-17.0) ng/L Total Protein 7.4 (6.5-8.0) g/dL Albumin 3.8 (3.5-5.0) g/dL Urine Color Urine Appearance Urine pH (5.0-9.0) Ur Specific [place] (1.005-1.025) Urine Protein (Neg-Trace) mg/dL Urine Glucose (UA) (Negative) mg/dL Urine Ketones (Negative) mg/dL Urine Blood (Negative) Urine Nitrite (Negative) Ur Leukocyte Esterase (Negative) Urine RBC (0-2) /HPF Urine WBC (0-5) /HPF Ur Squamous Epith Cells (0-2) /HPF Urine Bacteria (None Seen) Hyaline Casts (0-2) /LPF 07/08/23 07/09/23 Range/Units 23:44 00:56 WBC (4.8-10.8) X10*3/uL RBC (4.20-5.50) X10*6/uL Hgb (12.0-16.0) g/dl Hct (37.0-47.0) % MCV (80.0-98.0) fL MCH (27.0-33.0) pg MCHC (31.0-35.0) g/dl RDW (11.0-16.0) % Plt Count (160-400) X10*3/uL MPV (9.4-12.3) fL Immature Gran % (Auto) (0.0-0.4) % Neut % (Auto) (45-73) % Lymph % (Auto) (20-40) % [place] % (Auto) (2-11) % Eos % (Auto) (0-4) % Baso % (Auto) (0-2) % Lymph # (Auto) (1.2-4.9) X10*3/uL [place] # (Auto) (0.1-1.2) X10*3/uL Eos # (Auto) (0.0-0.4) X10*3/uL Baso # (Auto) (0.0-0.2) X10*3/uL Abs Immat Gran (auto) (0.00-0.03) X10*3/uL Absolute Neuts (auto) (2.0-8.3) x10*3/uL Absolute Nucleated RBC (0.0-0.012) X10*3/uL Nucleated RBC % (auto) (0.0-0.2) /100WBC PT (11.1-13.3) SEC INR (0.9-1.1) Sodium (135-145) mmol/L Potassium (3.3-5.1) mmol/L Chloride (96-108) mmol/L Carbon Dioxide (22-29) mmol/L Anion Gap (12-20) BUN (9-16) mg/dL Creatinine (0.5-1.4) mg/dL Estim Creat Clear Calc Estimated GFR Random Glucose (60-115) mg/dL Calcium (8.4-10.2) mg/dL Total Bilirubin (0.0-1.0) mg/dL AST (5-31) U/L ALT (0-31) U/L Alkaline Phosphatase (39-117) U/L Troponin I High Sens < 2.7 (<3.5-17.0) ng/L Total Protein (6.5-8.0) g/dL Albumin (3.5-5.0) g/dL Urine Color Yellow Urine Appearance Cloudy Urine pH 8.0 (5.0-9.0) Ur Specific [place] 1.015 (1.005-1.025) Urine Protein Trace (Neg-Trace) mg/dL Urine Glucose (UA) Negative (Negative) mg/dL Urine Ketones Trace (Negative) mg/dL Urine Blood Negative (Negative) Urine Nitrite Negative (Negative) Ur Leukocyte Esterase Trace H (Negative) Urine RBC 0-2 (0-2) /HPF Urine WBC 0-5 (0-5) /HPF Ur Squamous Epith Cells 0-2 (0-2) /HPF Urine Bacteria None Seen (None Seen) Hyaline Casts 0-2 (0-2) /LPF Independent Interpretation I performed an independent interpretation of an: EKG Interpretation: Normal sinus rhythm, HR-67, no STEMI, AR/QRS/QTC is within normal limits. Chronic Conditions Patient?s care impacted by: Hypertension Critical Care Time Critical Care Time Critical Care Time: Yes Total Critical Care Time: 30 Attestation: I personally attest to this time spent taking care of the patient. Discharge Plan Discharge Clinical Impression: Dehydration, Benign paroxysmal positional vertigo Patient Disposition: Still a Patient Instructions: Dehydration (ED), Benign Paroxysmal Positional Vertigo (ED) Additional Instructions: 1. Resume all home medications as prescribed. 2. Increase the amount of water intake. 3. Follow-up with your primary care doctor on Monday morning. Return to the ER for any worsening symptoms. Prescriptions: No Action hydrochlorothiazide 25 mg tablet 25 mg PO DAILY Qty: 90 3RF montelukast 10 mg tablet 10 mg PO BEDTIME Qty: 90 2RF ropinirole 3 mg tablet 3 mg PO DAILY Qty: 90 2RF pantoprazole 40 mg tablet,delayed release (DR/EC) 40 mg PO DAILY Qty: 90 3RF Rx Instructions: Take every day except when taking methotrexate metoprolol succinate 25 mg tablet extended release 24 hr 25 mg PO DAILY Qty: 90 3RF meloxicam 15 mg tablet 15 mg PO DAILY Qty: 90 3RF Prolia 60 mg/mL syringe 60 mg subcut [id number] Qty: 1 1RF alprazolam 0.25 mg tablet 0.125 mg PO TID PRN (Reason: anxiety) 30 Days Qty: 30 2RF allopurinol 100 mg tablet 100 mg PO DAILY Qty: 90 0RF sertraline 25 mg tablet 25 mg PO DAILY Qty: 90 3RF tramadol 50 mg tablet 50 mg PO BID PRN (Reason: pain) Qty: 60 1RF methotrexate sodium 2.5 mg tablet 15 mg PO QWEEK Qty: 72 0RF pravastatin 10 mg tablet 10 mg PO BEDTIME Qty: 90 2RF cyclobenzaprine 5 mg tablet 5 mg PO TID PRN (Reason: muscle spasm) Qty: 10 0RF fexofenadine [Marisa Allergy] 180 mg tablet 180 mg PO DAILY prednisolone acetate 1 % drops,suspension 2 drp ophthalmic (eye) BID multivitamin Tablet 1 tab PO DAILY vitamin B complex [B Complex-Vitamin B12] Tablet 1 tab PO DAILY Calcium Citrate Plus 220-64-155-3.75 [id number]-mg tablet 1 tab PO DAILY folic acid 1 mg tablet 1 mg PO DAILY Qty: 90 2RF (DME) CMF Bone Stimulator See Rx Instructions .Route .MEDSUPPLY Qty: 1 0RF Rx Instructions: As directed meclizine 25 mg tablet 25 mg PO TID PRN clotrimazole 10 mg abby PO TID sodium chloride 5 % ointment ophthalmic (eye) sodium chloride 5 % drops 0 drp ophthalmic (eye)
[2023-07-09 01:02] LABS: Appearance Urine Cloudy; Color Urine Yellow; Glucose Urine UA Negative (Negative); Leukocyte Esterase Urine Trace (Negative); Nitrite Urine Negative (Negative); Specific Gravity - Urine 1.015 (1.005-1.025); UMIC TRIGGER UACC YES; Urine Blood Negative (Negative); Urine Ketones Trace mg/dL (Negative); Urine Protein Trace mg/dL (Neg-Trace)
[2023-07-09 01:07] LABS: Bacteria Urine None Seen (None Seen); Hyaline Casts Urine 0-2 /LPF (0-2); RBC Urine 0-2 /HPF (0-2); Squamous Epithelial Cell Urine 0-2 /HPF (0-2); WBC Urine 0-5 /HPF (0-5)
[2023-07-09 01:46] VITALS: BP 147/70; PULSE 69; RESP 18; TEMP 36.5; O2SAT 99
[2023-07-09 03:58] VITALS: BP 142/61; PULSE 70; RESP 18; TEMP 36.6; O2SAT 98
[2023-07-09 06:00] VITALS: BP 159/71; RESP 18; TEMP 36.4; O2SAT 96
== END 2023-07-09 06:19 | disposition home or self-care (01) ==
PROVIDERS: Student in an Organized Health Care Education/Training Program; Emergency Provider Internal Medicine; PCP Internal Medicine
DX: H81.10 Benign paroxysmal vertigo, unspecified ear (principal); E86.0 Dehydration; R11.2 Nausea with vomiting, unspecified; I10 Essential (primary) hypertension; E78.00 Pure hypercholesterolemia, unspecified; G62.9 Polyneuropathy, unspecified; M05.9 Rheumatoid arthritis with rheumatoid factor, unspecified; F41.1 Generalized anxiety disorder; Z79.899 Other long term (current) drug therapy
CPT/HCPCS: 36415; 80053; 81001; 81003; 84484; 85025; 85610; 93005; 96361; 96374; 96376; 99284; 99285; J2405

== ENCOUNTER 2023-07-10 14:34 | Observation (INO) | payer MEDICARE, OTHER, SELFPAY ==
--- NOTE | 2023-07-10 | ECG_ITS ---
Test Reason : WEACKNESS Blood Pressure : / mmHG Vent. Rate : 067 BPM Atrial Rate : 067 BPM P-R Int : 180 ms QRS Dur : 086 ms QT Int : 424 ms P-R-T Axes : 054 019 061 degrees QTc Int : 448 ms Normal sinus rhythm Low voltage QRS Borderline ECG When compared with ECG of 08-JUL-2023 23:35, No significant change was found Referred By: Moni Cisneros Electronically Signed By:KASHIF BAILEY
--- NOTE | ~2023-07-10 | MR_ITS ---
EXAMINATION: MR BRAIN WITHOUT CONTRAST CLINICAL INFORMATION: Paralysis. COMPARISON: Brain MRI dated 06/23/2019. TECHNIQUE: Multiplanar, multisequence imaging of the brain was performed without contrast. FINDINGS: No diffusion abnormalities are identified to suggest an acute infarct. Generalized brain parenchymal volume loss again noted with ex vacuo dilatation of the ventricles, slightly progressed compared to the prior study. No mass effect or midline shift is seen. Mild scattered white matter signal changes again noted which may be due to chronic microangiopathy. No extra-axial fluid collections are seen. The brainstem and cerebellum are normal. The gradient refocused acquisition is normal. The craniovertebral junction, marrow signal, and midline structures are normal. The major intracranial flow-voids at the level of the [place] are preserved. The dural venous sinus flow-voids are maintained. The mastoid air cells are well aerated. There is mild mucosal thickening in the maxillary and ethmoid sinuses. MR/MR head/brain wo con IMPRESSION: No acute intracranial process. Progressed moderate generalized parenchymal volume loss. Relatively stable mild chronic white matter microangiopathy.
--- NOTE | ~2023-07-10 | CT_ITS ---
EXAMINATION: CTA OF THE HEAD AND NECK CLINICAL INFORMATION: Left-sided weakness. COMPARISON: Head CT from 02/27/2023. CT angiogram dated 06/23/2019. TECHNIQUE: Test bolus sequences followed by intravenous administration 70 mL of Omnipaque 350. Helical imaging was performed in the axial plane from the mediastinum to the skull vertex. Delayed postcontrast imaging of the head was also performed. The data was processed at the isotope technologist's workstation for generation of MIP sequences. Three-dimensional volume rendered reformatted images were also generated at an offline 3-D workstation. Stenoses are assessed in accordance with NASCET criteria unless otherwise indicated. This CT examination was performed using dose optimization techniques as appropriate, variously including the following: *Automated exposure control *Adjustment of mA and/or kV according to patient size (this includes techniques or standardized protocols for targeted exams where dose is matched to indication/reason for exam; i.e. extremities or head) *Use of iterative reconstruction technique DLP: 2282 mGy-cm. FINDINGS: CT head: There is no evidence of acute intracranial hemorrhage or territorial infarction. There is no loss of mcmillan to white matter differentiation. No abnormal mass effect or midline shift is seen. No extra-axial fluid collections are identified. There is no abnormal enhancement. Mild chronic white matter microangiopathic changes are again evident with moderate diffuse brain parenchymal volume loss. There is concordant ex vacuo prominence of the ventricles relative to the sulcal spaces. The osseous structures and soft tissues are normal. The mastoid air cells are well aerated. There is mild mucosal thickening dependently in the maxillary sinuses bilaterally. Mild ethmoid sinus mucosal thickening also evident. CTA neck: The imaged aortic arch and origins of the great vessels are of normal caliber with mild atherosclerotic wall calcifications. The common carotid arteries are widely patent. Nrvr-je-ldlnfnes wall calcifications noted at the right carotid bifurcation with stable mild stenotic narrowing at the origin of the right ICA. The remainder of the cervical right internal carotid artery is normal. At the left carotid bifurcation, there is mild atherosclerotic wall calcification. The origin of the left internal carotid artery is widely patent. In the mid segment of the cervical left ICA, there is stable atheromatous plaque resulting in mild stenotic narrowing. Remainder of the cervical left internal carotid artery is normal. Wall calcification again visible at the origin of the left orbital artery with stable stenotic narrowing. Otherwise, the vertebral arteries opacify normally and are of normal caliber. There is a 2 cm round low-density nodule versus cyst in the left thyroid lobe which previously measured 1.4 cm in size. Smaller nodules versus cysts are present in the thyroid gland. There is a stable calcification measuring 0.5 cm in size in the right thyroid lobe. Mild asymmetric prominence of soft tissue along the tongue base on the right side the right vallecula is stable, presumably representing lingular tonsillar tissue. Severe spondylitic changes noted at the C5-C6 and C6-C7 levels. There are anterior subluxations and hypertrophic facet arthropathy at the C3-C4 and C4-C5 levels. Mild mosaic attenuation pattern noted in the lungs with mild subsegmental atelectasis. CTA head: Moderate atherosclerotic wall calcification of the intradural left vertebral artery again visible with resultant moderate focal stenosis, otherwise stable. The right intradural vertebral artery and basilar artery are normal. The posterior cerebral arteries are widely patent. The internal carotid arteries are of normal caliber with mild atherosclerotic wall calcification. The SANTIAGO and MCA vascular complexes bilaterally are normal. The venous sinuses opacify normally. CT/CT angio head neck IMPRESSION: Stable mild atheromatous disease at the carotid bifurcations. Stable moderate stenosis and wall calcification at the origin of the left vertebral artery. Otherwise, no new hemodynamically significant stenosis or vessel occlusion is visible in the cervical vasculature. Stable moderate focal stenosis with wall calcification in the intradural left vertebral artery. Remainder of the vasculature at the level of the [place] of Lisa is patent. No acute territorial infarction or intracranial hemorrhage. Stable mild chronic white matter microangiopathy and moderate diffuse parenchymal volume loss. No abnormal enhancement. Interval increase in size of a 2 cm round low-density nodule versus cyst in the left thyroid lobe. Based on size criteria and patient age, a follow-up nonemergent ultrasound of the thyroid gland is recommended for further evaluation. Severe lower cervical spondylosis. Anterior subluxations and hypertrophic facet arthropathy at the C3-C4 and C4-C5 levels. Imaging findings reported to Dr. Ricci at 8:48 PM on 07/10/2023.
[2023-07-10 14:49] VITALS: BP 150/62; BP 164/92; PULSE 71; PULSE 82; RESP 18; TEMP 36.5; O2SAT 96; BMI 28.2
--- NOTE | 2023-07-10 16:15 | MHC.EDTECH ---
RN indicated we are not fallowing stroke protocol base on doctor instruction.
--- NOTE | 2023-07-10 16:32 | ED.NEUROSD ---
HPI - Neuro Symptoms/Deficit General Chief Complaint: General Medical Stated Complaint: DIZZINESS GENERAL WEAKNESS Time Seen by Provider: 07/10/23 15:00 Source: patient Mode of arrival: EMS Limitations: no limitations History of Present Illness HPI Narrative: Patient history of Meniere's disease was seen here 2 days ago for dizziness today she came as she noticed left-sided weakness earlier today. Patient woke up at 08:00 o'clock 09:30 noticed she cannot walk notice left leg was very weak her boyfriend had to help her out to moved to the also noticed slight weakness on the left hand patient came here around 15:00 at that time also she had weakness during his stay in the ER patient got improved just prior to my evaluation patient was able to ambulate but still feels slight weakness in left leg no dysarthria no visual loss no chest pain or palpitation patient does not take any aspirin 1 week ago patient noticed water flushing sound in left ear which lasted for a day which was different than usual tinnitus patient denies any significant headache Related Data Home Medications Medication Instructions Recorded Confirmed calcium cit 250 mg-mag 40 mg-D3 1 tab PO DAILY 09/04/20 05/25/23 125 unit-zinc 3.75 mg-endoscopy nurse-kd tablet (Calcium Citrate Plus) fexofenadine 180 mg tablet 180 mg PO DAILY 09/04/20 05/25/23 (Marisa Allergy) multivitamin 1 tab PO DAILY 09/04/20 05/25/23 prednisolone acetate 1 % eye 2 drp ophthalmic (eye) BID 09/04/20 05/25/23 drops,suspension vitamin B complex (B 1 tab PO DAILY 09/04/20 05/25/23 Complex-Vitamin B12 tablet) clotrimazole 10 mg abby mg PO TID 06/19/23 meclizine 25 mg tablet 25 mg PO TID PRN 06/19/23 sodium chloride 5 % eye drops 0 drp ophthalmic (eye) 06/19/23 sodium chloride 5 % eye ointment ophthalmic (eye) 06/19/23 Previous Rx's Medication Instructions Recorded CMF Bone Stimulator #1 ea 10/09/20 hydrochlorothiazide 25 mg tablet 25 mg PO DAILY #90 tabs 10/23/22 montelukast 10 mg tablet 10 mg PO BEDTIME #90 tabs 10/24/22 ropinirole 3 mg tablet 3 mg PO DAILY #90 tabs 12/11/22 pantoprazole 40 mg tablet,delayed 40 mg PO DAILY #90 tabs 12/22/22 release meloxicam 15 mg tablet 15 mg PO DAILY #90 tabs 01/12/23 metoprolol succinate 25 mg 25 mg PO DAILY #90 tabs 01/12/23 tablet,extended release 24 hr denosumab 60 mg/mL subcutaneous 60 mg subcut [id number] #1 mL 02/21/23 syringe (Prolia) cyclobenzaprine 5 mg tablet 5 mg PO TID PRN muscle spasm #10 02/27/23 tabs alprazolam 0.25 mg tablet 0.125 mg PO TID PRN anxiety 30 03/01/23 days #30 tabs allopurinol 100 mg tablet 100 mg PO DAILY #90 tabs 03/29/23 folic acid 1 mg tablet 1 mg PO DAILY #90 tabs 05/12/23 sertraline 25 mg tablet 25 mg PO DAILY #90 tabs 05/26/23 tramadol 50 mg tablet 50 mg PO BID PRN pain #60 tabs 05/29/23 methotrexate sodium 2.5 mg tablet 15 mg PO QWEEK #72 tabs 06/08/23 pravastatin 10 mg tablet 10 mg PO BEDTIME #90 tabs 06/16/23 Allergies Allergy/AdvReac Type Severity Reaction Status Date / Time alendronate sodium Allergy Severe ANAPHYLAXIS Verified 06/19/23 11:23 [From FOSAMAX] lisinopril [LISINOPRIL] Allergy Severe ANAPHYLAXIS, Verified 06/19/23 11:23 cough clarithromycin Allergy Intermediate CONFUSION, Verified 06/19/23 11:23 [CLARITHROMYCIN] sores on tongue, dry mouth simvastatin [SIMVASTATIN] Allergy Mild DRY Verified 06/19/23 11:23 THROAT, achy, confusion Review of Systems Review of Systems: Yes all other systems are reviewed and are negative [facility] Past Medical History Medical History Anxiety and depression Asthma Fracture of 5th metatarsal Fracture of fifth metatarsal bone of right foot GERD (gastroesophageal reflux disease) Gout High cholesterol Hypercholesterolemia Hypergammaglobulinemia Hypertension Hypertension Lumbar degenerative disc disease Nondisplaced fracture of fifth metatarsal bone, left foot, subsequent encounter for fracture with nonunion Osteoarthritis Osteoarthritis of carpometacarpal (CMC) joint of right thumb Osteoarthritis of shoulders, bilateral Osteoporosis Overweight (BMI 25.0-29.9) Peripheral neuropathy Polymyalgia rheumatica Restless leg syndrome Rheumatoid arthritis Rheumatoid arthritis Seizure disorder Seropositive rheumatoid arthritis Thrush, oral Surgical History Corneal transplant status H/O left knee surgery History of appendectomy History of arthroplasty of right hip History of cholecystectomy History of corneal transplant History of open reduction and internal fixation (ORIF) procedure History of total abdominal hysterectomy Family History Family History Father CVD (cardiovascular disease) Mother No problems noted. Social History Social History Housing: House Alcohol intake: never Patient Tobacco Use Status: Never used Tobacco Smoked in Last 30 Days: No e-Cigarette/Vaping Use: Never Used Second Hand Smoke Exposure: No Use of substances other than those prescribed or required for medical reasons: No Advance Directives: No Advance Directives Information Provided: Yes service: No Current occupational status: retired Cognitive needs: No Hearing needs: Yes Vision needs: Yes Physical Exam Vital Signs: Vital Signs: Last Vital Signs Temp 98.1 F 07/10/23 22:18 Pulse 66 07/10/23 22:18 Resp 18 07/10/23 22:18 BP 157/69 H 07/10/23 22:18 Pulse Ox 96 07/10/23 22:18 O2 Del Method Room Air 07/10/23 22:18 BMI result Body Mass Index 28.2 Appearance: Alert. Oriented X3. No acute distress. Eyes: PERRLA, No Nystagmus ENT: Pharynx normal. Oral Mucosa moist Neck: Normal inspection. Neck supple. CVS: Normal heart rate and rhythm. Pulses normal. Respiratory: No respiratory distress. Equal air entry bilateral, no wheezing/rales/rhonchi Abdomen: Soft and nontender. Bowel sounds are present, no mass palpable, no CVA tenderness Skin: Skin warm and dry. Normal skin color. Normal skin turgor. Extremities: No lower extremity edema. No calf tenderness Neuro: Oriented X 3. Left leg 4+/5 right 5/5 No sensory deficit.No cerebellar signs , cranial nerves II-XII intact Medications Administered Generic Name Dose Route Start Last Admin Trade Name Madina PRN Reason Stop Dose Admin Heparin Sodium (Porcine) 5,000 unit 07/10/23 22:30 07/10/23 23:53 Heparin Sodium,Porcine 5,000 Unit/Ml Vial SUBCUT 5,000 unit Q12H APURVA Administration Sodium Chloride 3 ml 07/11/23 00:00 07/11/23 00:00 0.9 % Sodium Chloride Flush 3 Ml Syringe IVFLUSH 3 ml QSHIFT APURVA Administration Discontinued Medications Generic Name Dose Route Start Last Admin Trade Name Madina PRN Reason Stop Dose Admin Aspirin 324 mg 07/10/23 21:56 07/10/23 22:29 Aspirin 81 Mg Tab.Chew PO 07/10/23 21:57 324 mg ONCE ONE Administration Iohexol 100 ml 07/10/23 20:04 07/10/23 20:04 Iohexol 350 Mg/Ml 100 Ml Infus..Btl IV 07/10/23 20:05 70 ml ONCE ONE Administration Medical Decision Making Medical Decision Making [facility] Narrative: Patient with transient left sided weakness likely has TIA will get CT head and CT angio to rule out aneurysm/LVO Patient's CTA negative for any LVO/infarct case discussed with Dr. Brunson admit patient for TIA for further evaluation will give patient aspirin for now patient ambulatory in the ER with walker Differential Diagnosis Differential Diagnoses: The differential diagnosis associated with the presentation includes TIA/CVA/carotid aneurysm/dissection Admission/Observation Consideration of admission/observation: Escalation of care including admission/observation considered Consult Healthcare Provider Management of the patient was discussed with: Hospitalist Lab Data [facility] Lab Attestation statement: I reviewed the patient's lab results. 07/10/23 16:44 07/10/23 16:44 Labs: Lab Results 07/10/23 07/10/23 07/10/23 Range/Units 16:44 16:44 16:44 WBC 9.9 (4.8-10.8) X10*3/uL RBC 4.46 (4.20-5.50) X10*6/uL Hgb 13.3 (12.0-16.0) g/dl Hct 40.1 (37.0-47.0) % MCV 89.9 (80.0-98.0) fL MCH 29.8 (27.0-33.0) pg MCHC 33.2 (31.0-35.0) g/dl RDW 13.8 (11.0-16.0) % Plt Count 245 (160-400) X10*3/uL MPV 9.0 L (9.4-12.3) fL Immature Gran % (Auto) 0.4 (0.0-0.4) % Neut % (Auto) 77.2 H (45-73) % Lymph % (Auto) 16.8 L (20-40) % [place] % (Auto) 4.5 (2-11) % Eos % (Auto) 0.7 (0-4) % Baso % (Auto) 0.4 (0-2) % Lymph # (Auto) 1.7 (1.2-4.9) X10*3/uL [place] # (Auto) 0.5 (0.1-1.2) X10*3/uL Eos # (Auto) 0.1 (0.0-0.4) X10*3/uL Baso # (Auto) 0.0 (0.0-0.2) X10*3/uL Abs Immat Gran (auto) 0.04 H (0.00-0.03) X10*3/uL Absolute Neuts (auto) 7.7 (2.0-8.3) x10*3/uL Absolute Nucleated RBC 0.000 (0.0-0.012) X10*3/uL Nucleated RBC % (auto) 0.0 (0.0-0.2) /100WBC PT 11.2 (11.1-13.3) SEC INR 0.9 (0.9-1.1) Sodium 137 (135-145) mmol/L Potassium 3.7 (3.3-5.1) mmol/L Chloride 103 (96-108) mmol/L Carbon Dioxide 26 (22-29) mmol/L Anion Gap 12 (12-20) BUN 15 (9-16) mg/dL Creatinine 0.80 (0.5-1.4) mg/dL Estim Creat Clear Calc 56.4 Estimated GFR > 60 Random Glucose 100 (60-115) mg/dL Calcium 9.8 (8.4-10.2) mg/dL Total Bilirubin 0.5 (0.0-1.0) mg/dL AST 24 (5-31) U/L ALT 18 (0-31) U/L Alkaline Phosphatase 73 (39-117) U/L Total Protein 7.3 (6.5-8.0) g/dL Albumin 3.8 (3.5-5.0) g/dL NIH Stroke Scale Time: 16:20 Level of Consciousness: Alert Level of Consciousness Questions: Answers both questions correctly Level of Consciousness Commands: Performs both tasks correctly Best Gaze: Normal Visual: No visual loss Facial Palsy: Normal Motor Arm (Right): No drift Motor Arm (Left): No drift Motor Leg (Right): No drift Motor Leg (Left): No drift Limb Ataxia: Absent Sensory: Normal Best Language: No aphasia Dysarthia: Normal Extinction and Inattention: No abnormality Score: 0 Critical Care Time Critical Care Time Critical Care Time: Yes Total Critical Care Time: 40 Attestation: The patient was critically ill with a high probability of imminent or life threatening deterioration. I spent greater than 45 minutes of discontinuous time evaluating the patient,delivering critical care at the bedside, discussing and evaluating pertinent data with consultants. Critical care time does not include time spent performing separately billable procedures or teaching. Total time spent performing critical care was 40 minutes. Discharge Plan Discharge Clinical Impression: Transient ischemic attack (TIA) Patient Disposition: Admitted As Inpatient
[2023-07-10 16:49] LABS: MANUAL DIFF FLAG NO
[2023-07-10 16:50] LABS: Basophils Percent Auto 0.4 % (0-2); Eosinophils Absolute Auto 0.1 X10*3/uL (0.0-0.4); Eosinophils Percent Auto 0.7 % (0-4); Hematocrit 40.1 % (37.0-47.0); Hemoglobin 13.3 g/dl (12.0-16.0); Imm Gran Abs Auto 0.04 X10*3/uL (0.00-0.03); Imm Gran Pct Auto 0.4 % (0.0-0.4); Lymphocytes Absolute Auto 1.7 X10*3/uL (1.2-4.9); Lymphocytes Percent Auto 16.8 % (20-40); Mean Corpuscular HGB Conc 33.2 g/dl (31.0-35.0); Mean Corpuscular Hemoglobin 29.8 pg (27.0-33.0); Mean Corpuscular Volume 89.9 fL (80.0-98.0); Monocytes Absolute Auto 0.5 X10*3/uL (0.1-1.2); Monocytes Percent Auto 4.5 % (2-11); Neutrophils Absolute Auto 7.7 x10*3/uL (2.0-8.3); Neutrophils Percent Auto 77.2 % (45-73); Platelet Count 245 X10*3/uL (160-400); Red Blood Count 4.46 X10*6/uL (4.20-5.50); Red Cell Distribution Width 13.8 % (11.0-16.0); White Blood Count 9.9 X10*3/uL (4.8-10.8)
[2023-07-10 17:00] LABS: INTERNATIONAL NORM RATIO 0.9 (0.9-1.1); Prothrombin Time 11.2 SEC (11.1-13.3)
[2023-07-10 17:03] LABS: Alanine Aminotransferase 18 U/L (0-31); Albumin Level 3.8 g/dL (3.5-5.0); Alkaline Phosphatase 73 U/L (39-117); Anion Gap 12 (12-20); Aspartate Amino Transferase 24 U/L (5-31); Bilirubin Total 0.5 mg/dL (0.0-1.0); Blood Urea Nitrogen 15 mg/dL (9-16); Calcium 9.8 mg/dL (8.4-10.2); Carbon Dioxide 26 mmol/L (22-29); Chloride 103 mmol/L (96-108); Creatinine Clr Calc Pharmacy 56.4; Estimated Glomerular Filt Rate > 60; Glucose Random 100 mg/dL (60-115); Potassium 3.7 mmol/L (3.3-5.1); Sodium 137 mmol/L (135-145); Total Protein 7.3 g/dL (6.5-8.0)
--- NOTE | 2023-07-10 17:04 | PC.NURSE ---
late entry - pt comes in aox4, reporting stroke symptoms and dizziness. Upon assessment by RN pt has no verbal deficits but is having weakness on the left side. Pt was ambulatory with assist but reports that their left leg feels very heavy and that this morning they could not walk. Pt also unable to point to their own nose with left hand. grasps slightly unequal. MD made aware and did their own neuro assessment.
[2023-07-10] MEDS: iohexoL 350 MG/ML 100 ML INFUS..BTL IV (20:04)
[2023-07-10 22:18] VITALS: BP 157/69; PULSE 66; RESP 18; TEMP 36.7; O2SAT 96
[2023-07-10] MEDS: Aspirin 81 MG TAB.CHEW 324 MG PO (22:29)
--- NOTE | 2023-07-10 22:32 | P.HPHOSP_ITS ---
History of Present Illness Date of Service: 07/10/23 Chief Complaint: LEft sided weakness. An 83 years old lady with PMH of HTN, PMR, Meniere disease, HLD, RA on Methotrexate among others who presents to the hospital with left sided weakness. The patient report that she woke up feeling around baseline and went to kitchen where she had some toast then thought about making her bed. while standing there she lost the ability to move her left leg. no clear weakness described but inability to move the left leg. she was standing for few minutes unable to move and afraid of falling until a family member helped her getting back to the bed. at that point EMS was called and she noticed that her left arm is acting funny and weaker with disorientation and inability to keep things in her hand. Denies chest pain, palpitations, fever, chills, nausea, vomiting, change in bowel habit or urinary symptoms. she reports having meniere disease symptoms last 3 days with nausea and vomiting but non this morning. In ED , symptoms resolved and she feels back to her baseline. CTA head and neck negative for any acute findings or significant stenosis. Blood work within normal. admitted for observation. Review of Systems Review of Systems: No fever, chills , left sided weakness improved now No chest pain, palpitation No shortness of breath or coughing No abdominal pain, nausea or vomiting No urinary symptoms No any rash or wounds [facility] Medical History Anxiety and depression Asthma Fracture of 5th metatarsal Fracture of fifth metatarsal bone of right foot GERD (gastroesophageal reflux disease) Gout High cholesterol Hypercholesterolemia Hypergammaglobulinemia Hypertension Hypertension Lumbar degenerative disc disease Nondisplaced fracture of fifth metatarsal bone, left foot, subsequent encounter for fracture with nonunion Osteoarthritis Osteoarthritis of carpometacarpal (CMC) joint of right thumb Osteoarthritis of shoulders, bilateral Osteoporosis Overweight (BMI 25.0-29.9) Peripheral neuropathy Polymyalgia rheumatica Restless leg syndrome Rheumatoid arthritis Rheumatoid arthritis Seizure disorder Seropositive rheumatoid arthritis Thrush, oral Family History Father CVD (cardiovascular disease) Mother No problems noted. Surgical History Corneal transplant status H/O left knee surgery History of appendectomy History of arthroplasty of right hip History of cholecystectomy History of corneal transplant History of open reduction and internal fixation (ORIF) procedure History of total abdominal hysterectomy Social History Housing: House Alcohol intake: never Patient Tobacco Use Status: Never used Tobacco Smoked in Last 30 Days: No e-Cigarette/Vaping Use: Never Used Second Hand Smoke Exposure: No Use of substances other than those prescribed or required for medical reasons: No Advance Directives: No Advance Directives Information Provided: Yes service: No Current occupational status: retired Cognitive needs: No Hearing needs: Yes Vision needs: Yes Meds Allergies Allergy/AdvReac Type Severity Reaction Status Date / Time alendronate sodium Allergy Severe ANAPHYLAXIS Verified 06/19/23 11:23 [From FOSAMAX] lisinopril [LISINOPRIL] Allergy Severe ANAPHYLAXIS, Verified 06/19/23 11:23 cough clarithromycin Allergy Intermediate CONFUSION, Verified 06/19/23 11:23 [CLARITHROMYCIN] sores on tongue, dry mouth simvastatin [SIMVASTATIN] Allergy Mild DRY Verified 06/19/23 11:23 THROAT, achy, confusion Active Medications: Current Medications Acetaminophen (Acetaminophen 325 Mg Tablet) 650 mg PO Q6H PRN PRN Reason: Pain, Mild (Pain Scale 1-3) Aspirin (Aspirin Enteric Coated 81 Mg Tablet.Dr) 81 mg PO DAILY [facility] Atorvastatin Calcium (Atorvastatin Calcium 40 Mg Tablet) 40 mg PO BEDTIME [facility] Heparin Sodium (Porcine) (Heparin Sodium,Porcine 5,000 Unit/Ml Vial) 5,000 unit SUBCUT Q12H [facility] Ondansetron HCl (Ondansetron Hcl 4 Mg/2 Ml Vial) 4 mg IVPUSH Q8H PRN PRN Reason: Nausea and Vomiting Sodium Chloride (0.9 % Sodium Chloride Flush 3 Ml Syringe) 3 ml IVFLUSH QSHIFT [facility] Home Medications Medication Instructions Recorded Confirmed Last Taken Type calcium cit 250 mg-mag 40 mg-D3 1 tab PO DAILY 09/04/20 05/25/23 Unknown History 125 unit-zinc 3.75 mg-copy director-kd tablet (Calcium Citrate Plus) fexofenadine 180 mg tablet 180 mg PO DAILY 09/04/20 05/25/23 Unknown History (Marisa Allergy) multivitamin 1 tab PO DAILY 09/04/20 05/25/23 07/10/23 History prednisolone acetate 1 % eye 2 drp ophthalmic (eye) BID 09/04/20 05/25/23 07/10/23 History drops,suspension vitamin B complex (B 1 tab PO DAILY 09/04/20 05/25/23 Unknown History Complex-Vitamin B12 tablet) clotrimazole 10 mg abby mg PO TID 06/19/23 07/10/23 History meclizine 25 mg tablet 25 mg PO TID PRN 06/19/23 Unknown History sodium chloride 5 % eye drops 0 drp ophthalmic (eye) 06/19/23 07/10/23 History sodium chloride 5 % eye ointment ophthalmic (eye) 06/19/23 07/10/23 History Physical Exam Vital Signs and Narrative: Vital Signs: Last Vital Signs Temp 98.1 F 07/10/23 22:18 Pulse 66 07/10/23 22:18 Resp 18 07/10/23 22:18 BP 157/69 H 07/10/23 22:18 Pulse Ox 96 07/10/23 22:18 O2 Del Method Room Air 07/10/23 22:18 BMI result Body Mass Index 28.2 Const: Other: Constitutional : Awake, interactive, not in distress Neck : Normal inspection, Supple Cardiovascular : RRR, no JVP, no lower extremity edema Respiratory : good bilateral air entry, no crackles, wheezes or rhonchi Gastrointestinal: soft, lax, Normal bowel sounds, Non tender Skin : Warm, Dry Neurological : Alert & oriented x3, No focal deficit , CN 2-12 within normal, Results Labs 07/10/23 16:44 07/10/23 16:44 Labs: Laboratory Results - last 24 hr 07/10/23 07/10/23 07/10/23 16:44 16:44 16:44 MCV 89.9 MCH 29.8 MCHC 33.2 RDW 13.8 Plt Count 245 MPV 9.0 L Immature Gran % (Auto) 0.4 Neut % (Auto) 77.2 H Lymph % (Auto) 16.8 L [place] % (Auto) 4.5 Eos % (Auto) 0.7 Baso % (Auto) 0.4 Lymph # (Auto) 1.7 [place] # (Auto) 0.5 Eos # (Auto) 0.1 Baso # (Auto) 0.0 Abs Immat Gran (auto) 0.04 H Absolute Neuts (auto) 7.7 Absolute Nucleated RBC 0.000 Nucleated RBC % (auto) 0.0 PT 11.2 INR 0.9 Anion Gap 12 Estim Creat Clear Calc 56.4 Estimated GFR > 60 Random Glucose 100 Calcium 9.8 Total Bilirubin 0.5 AST 24 ALT 18 Alkaline Phosphatase 73 Total Protein 7.3 Albumin 3.8 Imaging Radiologist's Impressions: Impressions Head/Neck CTA 07/10/23 20:10 IMPRESSION: Stable mild atheromatous disease at the carotid bifurcations. Stable moderate stenosis and wall calcification at the origin of the left vertebral artery. Otherwise, no new hemodynamically significant stenosis or vessel occlusion is visible in the cervical vasculature. Stable moderate focal stenosis with wall calcification in the intradural left vertebral artery. Remainder of the vasculature at the level of the [place] is patent. No acute territorial infarction or intracranial hemorrhage. Stable mild chronic white matter microangiopathy and moderate diffuse parenchymal volume loss. No abnormal enhancement. Interval increase in size of a 2 cm round low-density nodule versus cyst in the left thyroid lobe. Based on size criteria and patient age, a follow-up nonemergent ultrasound of the thyroid gland is recommended for further evaluation. Severe lower cervical spondylosis. Anterior subluxations and hypertrophic facet arthropathy at the C3-C4 and C4-C5 levels. Imaging findings reported to Dr. Ricci at 8:48 PM on 07/10/2023. Assessment and Plan (1) Left-sided weakness: Status: Acute Plan An 83 years old lady with PMH of HTN, PMR, Meniere disease, HLD, RA on Methotrexate among others who presents to the hospital with left sided weakness. # Left sided weakness Could be 2/2 TIA, medications, RA and PMR No focal weakness reported, more of stiffness\spasm? neurochecks CTA negative keep on Tele Start baby ASA and Atorvastatin Neurology consult # HTN Continue HCT , Metoprolol # RA continue home meds Continue rest of home meds pending MED REC Time Spent With Patient Time: Total time managing care of this patient today ____ minutes. Quality Stroke Does the patient have a stroke diagnosis?: No VTE Prior VTE?: No VTE Risk Level:: Medical - moderate - high VTE Device Contraindication: Treatment Not Indicated VTE Drug Contraindication: N/A - Med Ordered
[2023-07-10] MEDS: Heparin Sodium,Porcine 5,000 UNIT/ML VIAL 5000 UNIT SUBCUT (23:53)
[2023-07-11 03:54] VITALS: BP 166/57; PULSE 60; RESP 15; TEMP 36.4; O2SAT 95
--- NOTE | 2023-07-11 06:58 | PC.NURSE ---
Alert and oriented. Denies pain or discomfort, good po intake and appetite for breakfast. Continues to report some lightheadedness and dizziness
[2023-07-11 07:19] LABS: Anion Gap 11 (12-20); Blood Urea Nitrogen 14 mg/dL (9-16); Calcium 9.3 mg/dL (8.4-10.2); Carbon Dioxide 25 mmol/L (22-29); Chloride 105 mmol/L (96-108); Cholesterol 185 mg/dL (<200); Creatinine Clr Calc Pharmacy 61.9; Estimated Glomerular Filt Rate > 60; Glucose Random 92 mg/dL (60-115); HDL Cholesterol 49 mg/dL (>40); LDL Cholesterol Calculated 112 mg/dL (<100); Potassium 3.7 mmol/L (3.3-5.1); Sodium 137 mmol/L (135-145); Triglycerides 120 mg/dL (<150)
[2023-07-11 07:28] VITALS: BP 136/56; PULSE 75; RESP 25; TEMP 36.4; O2SAT 97
--- NOTE | 2023-07-11 07:43 | PC.NURSE ---
Working with PT at this time
[2023-07-11 07:56] VITALS: BP 136/56; PULSE 75; O2SAT 97
[2023-07-11] MEDS: Aspirin Enteric Coated 81 MG TABLET.DR PO (08:14)
[2023-07-11] MEDS: 0.9 % Sodium Chloride Flush 3 ML SYRINGE IVFLUSH ×4 (08:14→22:56)
--- NOTE | 2023-07-11 08:28 | PHA.MEDREC ---
Pharmacy Consult ? Medication Reconciliation Pharmacy has completed the medication reconciliation. Patient is no longer on alprazolam or sertraline. pt does not take protonix day before, day or, or day after methotrexate katina
[2023-07-11] MEDS: Heparin Sodium,Porcine 5,000 UNIT/ML VIAL 5000 UNIT SUBCUT ×2 (10:17→22:47)
--- NOTE | 2023-07-11 10:30 | P.CNNE_ITS ---
History of Present Illness Data of Consult Service Date: 07/11/23 Primary Care Provider: Renetta Vides MD [facility] Reason for consult: Stroke 83 years old woman with hypertension and osteoarthritis who came to hospital with new onset of left-sided weakness that started about 12 hours before she came to hospital. Upon examination, most of her weakness was resolved. There was no associated double vision dizziness nausea or vomiting or headache. She was evaluated for stroke with CT and CTA, which did not reveal any acute lesion. No significant treatable vascular lesion was noted either. Review of Systems Review of Systems: No recent headache or trauma [facility] Past Medical History Medical History Anxiety and depression Asthma Fracture of 5th metatarsal Fracture of fifth metatarsal bone of right foot GERD (gastroesophageal reflux disease) Gout High cholesterol Hypercholesterolemia Hypergammaglobulinemia Hypertension Hypertension Lumbar degenerative disc disease Nondisplaced fracture of fifth metatarsal bone, left foot, subsequent encounter for fracture with nonunion Osteoarthritis Osteoarthritis of carpometacarpal (CMC) joint of right thumb Osteoarthritis of shoulders, bilateral Osteoporosis Overweight (BMI 25.0-29.9) Peripheral neuropathy Polymyalgia rheumatica Restless leg syndrome Rheumatoid arthritis Rheumatoid arthritis Seizure disorder Seropositive rheumatoid arthritis Thrush, oral Family History Family History Father CVD (cardiovascular disease) Mother No problems noted. Surgical History Surgical History Corneal transplant status H/O left knee surgery History of appendectomy History of arthroplasty of right hip History of cholecystectomy History of corneal transplant History of open reduction and internal fixation (ORIF) procedure History of total abdominal hysterectomy Social History Social History Housing: House Alcohol intake: never Patient Tobacco Use Status: Never used Tobacco Smoked in Last 30 Days: No e-Cigarette/Vaping Use: Never Used Second Hand Smoke Exposure: No Use of substances other than those prescribed or required for medical reasons: No Advance Directives: No Advance Directives Information Provided: Yes Nutrition Risks: No Nutritional Risk service: No Current occupational status: retired Cognitive needs: No Hearing needs: Yes Vision needs: Yes Meds Allergies Allergy/AdvReac Type Severity Reaction Status Date / Time alendronate sodium Allergy Severe ANAPHYLAXIS Verified 06/19/23 11:23 [From FOSAMAX] lisinopril [LISINOPRIL] Allergy Severe ANAPHYLAXIS, Verified 06/19/23 11:23 cough clarithromycin Allergy Intermediate CONFUSION, Verified 06/19/23 11:23 [CLARITHROMYCIN] sores on tongue, dry mouth simvastatin [SIMVASTATIN] Allergy Mild DRY Verified 06/19/23 11:23 THROAT, achy, confusion Active Medications: Current Medications Acetaminophen (Acetaminophen 325 Mg Tablet) 650 mg PO Q6H PRN PRN Reason: Pain, Mild (Pain Scale 1-3) Aspirin (Aspirin Enteric Coated 81 Mg Tablet.Dr) 81 mg PO DAILY [facility] Last Admin: 07/11/23 08:14 Dose: 81 mg Atorvastatin Calcium (Atorvastatin Calcium 40 Mg Tablet) 40 mg PO BEDTIME [facility] Heparin Sodium (Porcine) (Heparin Sodium,Porcine 5,000 Unit/Ml Vial) 5,000 unit SUBCUT Q12H [facility] Last Admin: 07/11/23 10:17 Dose: 5,000 unit Ondansetron HCl (Ondansetron Hcl 4 Mg/2 Ml Vial) 4 mg IVPUSH Q8H PRN PRN Reason: Nausea and Vomiting Sodium Chloride (0.9 % Sodium Chloride Flush 3 Ml Syringe) 3 ml IVFLUSH QSHIFT [facility] Last Admin: 07/11/23 08:14 Dose: 3 ml Home Medications Medication Instructions Recorded Confirmed Last Taken Type multivitamin 1 tab PO DAILY 09/04/20 07/11/23 07/09/23 History prednisolone acetate 1 % eye 1 drp ophthalmic-Right TID 09/04/20 07/11/23 07/09/23 History drops,suspension vitamin B complex (B 1 tab PO DAILY 09/04/20 07/11/23 07/09/23 History Complex-Vitamin B12 tablet) calcium carbonate 600 mg-vitamin 1 tab PO DAILY 07/11/23 07/11/23 07/09/23 History D3 5 mcg (200 unit) tablet carboxymethylcellulose sodium 1 % 1 drp ophthalmic-Left QID 07/11/23 07/11/23 07/09/23 History eye drops (Artificial Tears (carboxymethylcellulose)) methotrexate sodium 2.5 mg tablet 15 mg PO SA 07/11/23 07/11/23 07/08/23 History pantoprazole 40 mg tablet,delayed 40 mg PO MOTUWETH@0630 07/11/23 07/11/23 07/06/23 History release ropinirole 3 mg tablet 3 mg PO DAILY@1800 07/11/23 07/11/23 07/09/23 History Physical Exam Vital Signs: Vital Signs: Last Vital Signs Temp 97.5 F 07/11/23 07:28 Pulse 75 07/11/23 07:56 Resp 25 H 07/11/23 07:28 BP 136/56 L 07/11/23 07:56 Pulse Ox 97 07/11/23 07:56 O2 Del Method Room Air 07/11/23 07:28 BMI result Body Mass Index 28.2 Neuro: Other: She is alert and awake with normal spontaneity of speech fluency comprehension and affect. There is mild left sided liver take a levin and minimal left leg weakness with no asymmetry of reflexes and plantars were flexors. With double simultaneous stimulation she did not perceive left-sided sensory stimulus. V isual lundy are full to confrontation with no extinction. Results Labs 07/10/23 16:44 07/11/23 06:46 Labs: Short CBC 07/10/23 Range/Units 16:44 WBC 9.9 (4.8-10.8) X10*3/uL Hgb 13.3 (12.0-16.0) g/dl Hct 40.1 (37.0-47.0) % Plt Count 245 (160-400) X10*3/uL BMP 07/10/23 07/11/23 16:44 06:46 Sodium 137 137 Potassium 3.7 3.7 Chloride 103 105 Carbon Dioxide 26 25 BUN 15 14 Creatinine 0.80 0.73 Calcium 9.8 9.3 Liver Function 07/10/23 Range/Units 16:44 Total Bilirubin 0.5 (0.0-1.0) mg/dL AST 24 (5-31) U/L ALT 18 (0-31) U/L Alkaline Phosphatase 73 (39-117) U/L Albumin 3.8 (3.5-5.0) g/dL Head CT and CTA of brain and neck were reviewed. Widespread atherosclerotic disease was noted in intra and extracranial vasculature. Otherwise there was no significant treatable stenosis. Assessment and Plan (1) Left-sided weakness: Status: Acute 83 years old woman who probably had an acute atherothrombotic right hemispheric ischemic infarction. Imaging revealed widespread atherosclerotic disease vasculature and chronic microvascular ischemic changes. Mainstay of management is anti-platelet agent blood pressure control and statin. I would recommend aspirin 81 mg daily and clopidogrel 75 mg daily for couple of months. If possible, obtain a noncontrast MRI brain. Time Spent With Patient Time: Total time managing care of this patient today ____ minutes. Procedures Date of Service Date of Service: 07/11/23
--- NOTE | 2023-07-11 10:36 | MHC.CM.PN ---
CM met with Patient at bedside and addressed HURT[place]O with her, providing Patient with the original and placing a copy on the chart. Patient lives in a house with her Partner of 20 years/HCP/[place] and she uses a cane at times to assist with mobility. PT is recommending home with services; Patient has a [facility] Homemaker 1 1/2 hours/week and she is agreeable to a new referral to [facility]. CM has initiated and will follow for dc planning. PCP is Dr. Renetta ABDALLA. [facility] will transport.
--- NOTE | 2023-07-11 12:49 | PC.NURSE ---
Report given to accepting unit
[2023-07-11] MEDS: Acetaminophen 325 MG TABLET 650 MG PO (12:51)
--- NOTE | 2023-07-11 12:55 | HO.PM.IMPN ---
Subjective Subjective Date of Service: 07/11/23 Interval History: Being followed for left-sided weakness with inability to ambulate, feeling better denies weakness, no numbness, no speech impairment, no visual impairment denies similar symptoms in the past, has been compliant with blood pressure and cholesterol medications. Review of Systems All other system reviewed and negative Physical Exam Vital Signs: Vital Signs: Last Vital Signs Temp 97.5 F 07/11/23 07:28 Pulse 75 07/11/23 07:56 Resp 25 H 07/11/23 07:28 BP 136/56 L 07/11/23 07:56 Pulse Ox 97 07/11/23 07:56 O2 Del Method Room Air 07/11/23 07:28 BMI result Body Mass Index 28.2 Const: Other: General awake alert x3, resting comfortably in no acute distress. Neck is supple no JVD. CVS regular rate rhythm, Respiratory lungs clear to auscultation, no respiratory distress, no wheeze, no rhonchi. Gastrointestinal abdomen soft, non tender, bowel sounds audible, no guarding , no rigidity. Extremities no edema. Neuro moving all 4 extremity, mild left lower extremity weakness, decreased sensation, mild impaired balance, impaired gait pattern, speech clear. Skin no rash Psych appropriate affect Objective Data Active Medications Acetaminophen (Acetaminophen 325 Mg Tablet) 650 mg PO Q6H PRN PRN Reason: Pain, Mild (Pain Scale 1-3) Last Admin: 07/11/23 12:51 Dose: 650 mg Documented By: CASEY Allopurinol (Allopurinol 100 Mg Tablet) 100 mg PO DAILY [facility] Aspirin (Aspirin Enteric Coated 81 Mg Tablet.) 81 mg PO DAILY [facility] Last Admin: 07/11/23 08:14 Dose: 81 mg Documented By: CASEY Atorvastatin Calcium (Atorvastatin Calcium 40 Mg Tablet) 40 mg PO BEDTIME [facility] Folic Acid (Folic Acid 1 Mg Tablet) 1 mg PO DAILY [facility] Heparin Sodium (Porcine) (Heparin Sodium,Porcine 5,000 Unit/Ml Vial) 5,000 unit SUBCUT Q12H [facility] Last Admin: 07/11/23 10:17 Dose: 5,000 unit Documented By: CASEY Hydrochlorothiazide (Hydrochlorothiazide 25 Mg Tablet) 25 mg PO DAILY [facility]; Protocol Metoprolol Succinate (Metoprolol Succinate Er 25 Mg Tab.Er.24h) 25 mg PO DAILY [facility]; Protocol Montelukast Sodium (Montelukast Sodium 10 Mg Tablet) 10 mg PO BEDTIME [facility] Multivitamins/Vitamin C (Multivitamin Tablet) 1 tab PO DAILY [facility] Multivitamins/Vitamin C (Multivitamin Tablet) 1 tab PO DAILY [facility] Non-Formulary Medication (Meloxicam) 15 mg PO DAILY [facility] Non-Formulary Medication (Ropinirole) 3 mg PO DAILY@1800 [facility] Ondansetron HCl (Ondansetron Hcl 4 Mg/2 Ml Vial) 4 mg IVPUSH Q8H PRN PRN Reason: Nausea and Vomiting Prednisolone Acetate (Prednisolone Acetate 1 % Oph Susp 5 Ml Drpbtl) 1 drop EYE-RIGHT TID [facility] Sodium Chloride (0.9 % Sodium Chloride Flush 3 Ml Syringe) 3 ml IVFLUSH QSHIFT [facility] Last Admin: 07/11/23 08:14 Dose: 3 ml Documented By: CASEY Tramadol HCl (Tramadol Hcl 50 Mg Tablet) 50 mg PO Q12H PRN PRN Reason: Pain, Moderate(Pain Scale 4-6) Labs 07/10/23 16:44 07/11/23 06:46 Labs: Laboratory Results - last 24 hr 07/10/23 07/10/23 07/10/23 16:44 16:44 16:44 MCV 89.9 MCH 29.8 MCHC 33.2 RDW 13.8 Plt Count 245 MPV 9.0 L Immature Gran % (Auto) 0.4 Neut % (Auto) 77.2 H Lymph % (Auto) 16.8 L [place] % (Auto) 4.5 Eos % (Auto) 0.7 Baso % (Auto) 0.4 Lymph # (Auto) 1.7 [place] # (Auto) 0.5 Eos # (Auto) 0.1 Baso # (Auto) 0.0 Abs Immat Gran (auto) 0.04 H Absolute Neuts (auto) 7.7 Absolute Nucleated RBC 0.000 Nucleated RBC % (auto) 0.0 PT 11.2 INR 0.9 Anion Gap 12 Estim Creat Clear Calc 56.4 Estimated GFR > 60 Random Glucose 100 Calcium 9.8 Total Bilirubin 0.5 AST 24 ALT 18 Alkaline Phosphatase 73 Total Protein 7.3 Albumin 3.8 Triglycerides Cholesterol LDL Cholesterol, Calc HDL Cholesterol 07/11/23 06:46 MCV MCH MCHC RDW Plt Count MPV Immature Gran % (Auto) Neut % (Auto) Lymph % (Auto) [place] % (Auto) Eos % (Auto) Baso % (Auto) Lymph # (Auto) [place] # (Auto) Eos # (Auto) Baso # (Auto) Abs Immat Gran (auto) Absolute Neuts (auto) Absolute Nucleated RBC Nucleated RBC % (auto) PT INR Anion Gap 11 L Estim Creat Clear Calc 61.9 Estimated GFR > 60 Random Glucose 92 Calcium 9.3 Total Bilirubin AST ALT Alkaline Phosphatase Total Protein Albumin Triglycerides 120 Cholesterol 185 LDL Cholesterol, Calc 112 H HDL Cholesterol 49 Assessment and Plan (1) Left-sided weakness: Status: Acute Plan 83 years old lady with PMH of HTN, PMR, Meniere disease, HLD, RA on Methotrexate among others who presents to the hospital with left sided weakness. # Left sided weakness Multiple risk factors for stroke including hypertension, hyperlipidemia, age Persistent mild left lower extremity weakness, no visual impairment no speech impairment CTA negative, EKG showed normal sinus rhythm Presented out of window for tPA Seen by neurologist Dr. Brunson recommended non contrast MRI brain to rule out a right hemispheric ischemic infarction Continue baby ASA and Atorvastatin started on admission Follow lipid profile, seen by PT OT they recommend home physical therapy # HTN Continue Metoprolol and hydrochlorothiazide follow BP closely # RA resume methotrexate upon discharge # history of gout continue allopurinol # DVT prophylaxis continue heparin Code status full code In my clinical judgment patient need continued inpatient hospitalization for further workup including MRI brain for diagnosis of left-sided weakness. Time Spent With Patient Time: Total time managing care of this patient today ____ minutes. Quality Stroke Does the patient have a stroke diagnosis?: No VTE Prior VTE?: No VTE Risk Level:: Medical - moderate - high VTE Device Contraindication: Treatment Not Indicated VTE Drug Contraindication: N/A - Med Ordered
[2023-07-11 13:20] VITALS: BP 139/66; PULSE 76; RESP 20; TEMP 36.3; O2SAT 98
[2023-07-11 15:45] VITALS: BP 132/60; PULSE 89; RESP 18; TEMP 37; O2SAT 97
[2023-07-11] MEDS: prednisoLONE Acetate 1 % Oph Susp 5 ML DRPBTL 1 DROP EYE-RIGHT ×2 (16:25→20:01)
[2023-07-11] MEDS: rOPINIRole HCL 1 MG TABLET PO (17:44)
[2023-07-11] MEDS: rOPINIRole HCL 2 MG TABLET PO (17:44)
[2023-07-11 19:01] VITALS: BP 134/63; PULSE 75; RESP 18; TEMP 37; O2SAT 94
[2023-07-11] MEDS: Montelukast Sodium 10 MG TABLET PO (20:00)
[2023-07-11] MEDS: NaPROXEN 500 MG TABLET PO (20:00)
[2023-07-11] MEDS: Atorvastatin Calcium 40 MG TABLET PO (20:00)
[2023-07-12] VITALS: BP 133/63; PULSE 65; RESP 14; TEMP 36.5; O2SAT 97
[2023-07-12 04:00] VITALS: BP 152/68; PULSE 72; RESP 15; TEMP 36.3; O2SAT 98
[2023-07-12] MEDS: ondansetron HCL 4 MG/2 ML VIAL IVPUSH (04:42)
[2023-07-12 07:14] VITALS: BP 129/63; PULSE 67; RESP 20; TEMP 36.9; O2SAT 98
[2023-07-12 07:51] LABS: Cholesterol 173 mg/dL (<200); HDL Cholesterol 48 mg/dL (>40); LDL Cholesterol Calculated 104 mg/dL (<100); Triglycerides 105 mg/dL (<150)
[2023-07-12] MEDS: prednisoLONE Acetate 1 % Oph Susp 5 ML DRPBTL 1 DROP EYE-RIGHT (08:52)
[2023-07-12] MEDS: NaPROXEN 500 MG TABLET PO (08:52)
[2023-07-12] MEDS: Folic Acid 1 MG TABLET PO (08:52)
[2023-07-12] MEDS: Metoprolol Succinate ER 25 MG TAB.ER.24H PO (08:52)
[2023-07-12] MEDS: Aspirin Enteric Coated 81 MG TABLET.DR PO (08:54)
[2023-07-12] MEDS: Multivitamin TABLET 1 TAB PO (08:54)
[2023-07-12] MEDS: allopurinoL 100 MG TABLET PO (08:54)
[2023-07-12] MEDS: 0.9 % Sodium Chloride Flush 3 ML SYRINGE IVFLUSH (08:55)
[2023-07-12] MEDS: hydroCHLOROthiazide 25 MG TABLET PO (09:03)
--- NOTE | 2023-07-12 10:32 | MHC.CM.PN ---
Per ROUNDS discussion, Patient will be medically cleared for dc to home today. PT is recommending home/with services and [facility] has accepted Patient and has been made aware of today's dc.
--- NOTE | 2023-07-12 10:38 | W.MHC.F2F ---
Service Date Service Date: 07/12/23 Encounter Date of encounter: 07/12/23 Reasons for Services Signs and symptoms assessed: left sided weakness Reason for physical therapy: home safety and mobility Homebound: Leaving the home is medically contraindicated at this time without the asist of a device and/or another person due th the listed conditions above and below. Reason homebound: unsteady gait / fall risk Certification: Based on the above findings, I certify that this patient is confined to the home and needs intermittent residential care, physical therapy and/or speech therapy, or continues to need occupational therapy. The patient is under my care, and I have initiated the establishment of the plan of care. The patient will be followed by a physician who will periodically review the plan of care. Time Spent With Patient Time: Total time managing care of this patient today ____ minutes.
--- NOTE | 2023-07-12 10:39 | P.DS_ITS ---
DS: Providers Provider Date of Service: 07/12/23 Date of admission: 07/10/23 22:24 Primary care physician: Renetta Vides MD Consults: 07/10/23 22:24 Consult to Neurology Routine Consulting Provider: [facility] Reason for consultation: Left sided weakness for eval and rec. DS: Diagnosis Discharge Diagnosis (1) Left-sided weakness: Status: Acute DS: Summary Hospital Course Hospital Course: History of presenting illness: Date of Service: 07/10/23 Chief Complaint: LEft sided weakness. An 83 years old lady with PMH of HTN, PMR, Meniere disease, HLD, RA on Methotrexate among others who presents to the hospital with left sided weakness. The patient report that she woke up feeling around baseline and went to kitchen where she had some toast then thought about making her bed. while standing there she lost the ability to move her left leg. no clear weakness described but inability to move the left leg. she was standing for few minutes unable to move and afraid of falling until a family member helped her getting back to the bed. at that point EMS was called and she noticed that her left arm is acting funny and weaker with disorientation and inability to keep things in her hand. Denies chest pain, palpitations, fever, chills, nausea, vomiting, change in bowel habit or urinary symptoms. she reports having meniere disease symptoms last 3 days with nausea and vomiting but non this morning. In ED , symptoms resolved and she feels back to her baseline. CTA head and neck negative for any acute findings or significant stenosis. Blood work within normal. admitted for observation. Hospital course: 83 years old lady with PMH of HTN, PMR, Meniere disease, HLD, RA on Methotrexate among others who presents to the hospital with left sided weakness patient was admitted to medical floor, patient had no associated visual symptoms are speech impairment CT was negative EKG showed normal sinus rhythm, patient presented out of window for tPA was seen by neurologist Dr. Brunson who recommended a noncontrast MRI brain that showed no acute infarction neurology recommend baby aspirin 81 mg daily, and Plavix 75 mg daily for 1 month for diagnosis of TIA patient all symptoms have resolved she was seen by Physical therapy and they recommended home PT, patient LDL is 104 recommended Lipitor but patient has allergy to simvastatin that caused confusion achiness and dry throat therefore will increase dose of pravastatin to 20 mg and recommend follow-up with PCP to consider high-intensity statins if allergy to simvastatin was mild recommend to continue home blood pressure medications metoprolol and hydrochlorothiazide and follow low-cholesterol diet. In regard to chronic medical issues of rheumatoid arthritis and gout recommend to continue methotrexate and allopurinol patient noted to have no acute flare. Time Spent with Patient Time attestation: Total time managing care of this patient today ____ minutes. Discharge coordination time: Greater than 30 minutes Quality: Safe Use of Opioids Does Pt have an Active Cancer Diagnosis on the Problem List?: No Quality: Stroke Does the patient have a stroke diagnosis?: No Physical Exam Vital Signs: Vital Signs: Last Vital Signs Temp 98.4 F 07/12/23 07:14 Pulse 67 07/12/23 07:14 Resp 20 07/12/23 07:14 BP 129/63 07/12/23 07:14 Pulse Ox 98 07/12/23 07:14 O2 Del Method Room Air 07/12/23 07:14 BMI result Body Mass Index 28.2 Const: Other: General awake alert x3, resting comfortably in no acute distress.? Neck is supple no JVD. CVS? regular rate rhythm, Respiratory lungs clear to auscultation, no respiratory distress, no wheeze, no rhonchi. Gastrointestinal abdomen soft, non tender, bowel sounds audible, no guarding , no rigidity. Extremities no edema. Neuro moving all 4 extremity, nonfocal ,speech clear, normal sensation both lower extremities. Skin no rash Psych appropriate affect DS: Data Data Completed and Pending Labs on day of discharge: Laboratory Results - last 24 hr 07/12/23 06:46 Triglycerides 105 Cholesterol 173 LDL Cholesterol, Calc 104 H HDL Cholesterol 48 Discharge Plan Discharge Anticipated Discharge Date/Time: 07/12/23 10:37 Patient Disposition: Home Health Service Discharge Diagnosis: TIA Referrals: Vijaya PATINO [Outside] - 1 Week Po,Renetta Seo MD [Primary Care Provider] - 1 Week Discharge Medications: New clopidogrel [Plavix] 75 mg tablet 75 mg PO DAILY Qty: 30 0RF aspirin 81 mg Tablet,Delayed Release (Dr/Ec) 81 mg PO DAILY Qty: 30 0RF pravastatin 20 mg tablet 20 mg PO BEDTIME Qty: 30 0RF Continued hydrochlorothiazide 25 mg tablet 25 mg PO DAILY Qty: 90 3RF montelukast 10 mg tablet 10 mg PO BEDTIME Qty: 90 2RF metoprolol succinate 25 mg tablet extended release 24 hr 25 mg PO DAILY Qty: 90 3RF meloxicam 15 mg tablet 15 mg PO DAILY Qty: 90 3RF Prolia 60 mg/mL syringe 60 mg subcut [id number] Qty: 1 1RF allopurinol 100 mg tablet 100 mg PO DAILY Qty: 90 0RF tramadol 50 mg tablet 50 mg PO BID PRN (Reason: pain) Qty: 60 1RF calcium carbonate-vitamin D3 [Calcium + D] 600 mg-5 mcg (200 unit) Tablet 1 tab PO DAILY ropinirole 3 mg tablet 3 mg PO DAILY@1800 methotrexate sodium 2.5 mg tablet 15 mg PO SA pantoprazole 40 mg tablet,delayed release (DR/EC) 40 mg PO MOTUWETH@0630 Rx Instructions: Take every day except when taking methotrexate Artificial Tears (cmc) 1 % Drops 1 drp OPHTHALMIC-LEFT QID prednisolone acetate 1 % drops,suspension 1 drp ophthalmic-Right TID multivitamin Tablet 1 tab PO DAILY vitamin B complex [B Complex-Vitamin B12] Tablet 1 tab PO DAILY folic acid 1 mg tablet 1 mg PO DAILY Qty: 90 2RF (DME) CMF Bone Stimulator See Rx Instructions .Route .MEDSUPPLY Qty: 1 0RF Rx Instructions: As directed Discontinued pravastatin 10 mg tablet 10 mg PO BEDTIME Qty: 90 2RF Discharge Orders: Discharge Order (Routine); Ordered 07/12/23 Ordered By: Joleen Lopez Diet: Low fat, low cholesterol Stand Alone Forms: Patient Portal Discharge page Care Plan Goals: TIA all symptoms resolved take aspirin 1 tablet by mouth daily, Plavix 75 mg 1 tablet daily for 30 days only Increase dose of pravastatin to 20 mg daily, history of allergy to simvastatin discussed with PCP regarding use of Lipitor Discharge home with PT services Health Concerns: Hypertension/hyperlipidemia take all medications as prescribed Plan of Treatment: Outpatient follow-up with primary care physician call for appointment Assessment: as above
[2023-07-12 10:54] VITALS: BP 125/59; PULSE 63; RESP 20; TEMP 36.7; O2SAT 93
--- NOTE | 2023-07-12 14:22 | MHC.CM.PN ---
BRENDA was informed by KELLI/Debra that because Patient's Weakness appears to be resolved, Patient may not qualify for home PT/covered by Medicare. BRENDA spoke with MD who is comfortable with Patient returning home without home PT. CM attempted all listed numbers for Patient but ultimately was only able to leave a detailed message for Patient at [phone], explaining this situation. CM encouraged Patient to call CM if she has any concerns.
== END 2023-07-12 13:06 | disposition home health service (06) ==
LOC: HO.ED 16:16 → HO.EDOVER 22:33 → HO.IMC 07-11 11:58
PROVIDERS: Admitting Provider Student in an Organized Health Care Education/Training Program; Emergency Provider Internal Medicine; PCP Internal Medicine; Visit Provider Hospitalist
DX: G45.9 Transient cerebral ischemic attack, unspecified (principal); R53.1 Weakness; M47.812 Spondylosis without myelopathy or radiculopathy, cervical region; I10 Essential (primary) hypertension; M35.3 Polymyalgia rheumatica; H81.09 Meniere's disease, unspecified ear; E78.5 Hyperlipidemia, unspecified; M06.9 Rheumatoid arthritis, unspecified; R41.0 Disorientation, unspecified; R68.2 Dry mouth, unspecified; M10.9 Gout, unspecified; Z79.631 Long term (current) use of antimetabolite agent
CPT/HCPCS: 36415; 70496; 70498; 70551; 80048; 80053; 80061; 85025; 85610; 93005; 96372; 96374; 97162; 97166; 99222; 99285; J1643; J2405; Q9967

== ENCOUNTER → 2023-07-10 22:24 | Outpatient (BNV) | payer MEDICARE, OTHER, SELFPAY | PROVIDERS: Admitting Provider Student in an Organized Health Care Education/Training Program; Emergency Provider Internal Medicine; PCP Internal Medicine; Visit Provider Student in an Organized Health Care Education/Training Program | DX: R53.1 Weakness (principal) | CPT/HCPCS: 99223; 99233; 99239; G0180 ==

== ENCOUNTER 2023-07-15 12:26 | Emergency (ER) | payer MEDICARE, OTHER, SELFPAY ==
--- NOTE | ~2023-07-15 | CT_ITS ---
EXAMINATION: CT ABDOMEN AND PELVIS WITH CONTRAST CLINICAL INFORMATION: Constipation. Abdominal pain. COMPARISON: CT abdomen pelvis 07/23/2019. TECHNIQUE: Multidetector volumetric images were obtained from the superior aspect of the liver through the pubic symphysis following administration 97 mL of Omnipaque 350 intravenous contrast. Sagittal and coronal reformatted images were obtained on the technologist's workstation. Oral contrast: No This CT examination was performed using dose optimization techniques as appropriate, variously including the following: *Automated exposure control *Adjustment of mA and/or kV according to patient size (this includes techniques or standardized protocols for targeted exams where dose is matched to indication/reason for exam; i.e. extremities or head) *Use of iterative reconstruction technique DLP: 645 mGy-cm FINDINGS: LUNG BASES: The visualized lung bases are unremarkable. Partial visualization is made of at least mild scattered coronary artery calcific atherosclerosis. LIVER, GALLBLADDER, AND BILIARY TREE: The liver is normal in size, shape, and attenuation. No focal hepatic lesion or biliary ductal dilatation is present. The gallbladder is unremarkable with no evidence of radiopaque gallstones, gallbladder wall thickening, or obvious pericholecystic inflammatory changes. PANCREAS: Unremarkable. SPLEEN: Unremarkable. ADRENAL GLANDS: Unremarkable. KIDNEYS AND URETERS: Multiple bilateral rounded low density renal lesions most suspicious for benign, simple cyst requiring no additional imaging follow-up, the largest measuring 5.8 cm in association with the right kidney. No hydronephrosis. No urolithiasis. BLADDER: Moderate physiologic distention. GASTROINTESTINAL TRACT: Mild sigmoid diverticulosis. Moderate quantity of stool within the colon, in particular within the rectal vault. No mural thickening or inflammatory changes of the colon. The appendix is not visualized. Bascule is noted. Normal appearance of the terminal ileum. No free intraperitoneal fluid or gas collections. The stomach is decompressed. A small hiatal hernia is present. ABDOMINAL WALL: No significant hernia is appreciated. LYMPH NODES: Normal. VASCULAR: Marked diffuse calcific atherosclerosis. PELVIC VISCERA: The uterus appears atrophic possibly a cervical remnant of the uterus is only present. No adnexal lesions noted. OSSEOUS STRUCTURES: Partial visualization of a right hip arthroplasty. Multilevel chronic spondylosis of the lumbar spine. No vertebral body compression deformities. Diffuse osteopenia. CT/CT abdomen pelvis w IV con IMPRESSION: 1. Moderate quantity of stool within the colon, in particular within the rectal vault. No evidence of stercoral colitis. Findings could correlate with constipation. No intestinal dilatation to suggest obstruction. 2. Mild sigmoid diverticulosis. No evidence of acute diverticulitis. 3. Small hiatal hernia. 4. Marked diffuse calcific atherosclerosis.
[2023-07-15 13:31] VITALS: BP 125/59; PULSE 81; RESP 19; TEMP 36.6; O2SAT 98; BMI 28.2
--- NOTE | 2023-07-15 13:52 | ED.GENADULT ---
HPI - General Adult General Chief complaint: General Medical Stated complaint: Impacted colon Related Data Home Medications Medication Instructions Recorded Confirmed multivitamin 1 tab PO DAILY 09/04/20 07/11/23 prednisolone acetate 1 % eye 1 drp ophthalmic-Right TID 09/04/20 07/11/23 drops,suspension vitamin B complex (B 1 tab PO DAILY 09/04/20 07/11/23 Complex-Vitamin B12 tablet) calcium carbonate 600 mg-vitamin 1 tab PO DAILY 07/11/23 07/11/23 D3 5 mcg (200 unit) tablet carboxymethylcellulose sodium 1 % 1 drp ophthalmic-Left QID 07/11/23 07/11/23 eye drops (Artificial Tears (carboxymethylcellulose)) methotrexate sodium 2.5 mg tablet 15 mg PO SA 07/11/23 07/11/23 pantoprazole 40 mg tablet,delayed 40 mg PO MOTUWETH@0630 07/11/23 07/11/23 release ropinirole 3 mg tablet 3 mg PO DAILY@1800 07/11/23 07/11/23 Previous Rx's Medication Instructions Recorded CMF Bone Stimulator #1 ea 10/09/20 hydrochlorothiazide 25 mg tablet 25 mg PO DAILY #90 tabs 10/23/22 montelukast 10 mg tablet 10 mg PO BEDTIME #90 tabs 10/24/22 meloxicam 15 mg tablet 15 mg PO DAILY #90 tabs 01/12/23 metoprolol succinate 25 mg 25 mg PO DAILY #90 tabs 01/12/23 tablet,extended release 24 hr denosumab 60 mg/mL subcutaneous 60 mg subcut [id number] #1 mL 02/21/23 syringe (Prolia) allopurinol 100 mg tablet 100 mg PO DAILY #90 tabs 03/29/23 folic acid 1 mg tablet 1 mg PO DAILY #90 tabs 05/12/23 tramadol 50 mg tablet 50 mg PO BID PRN pain #60 tabs 05/29/23 aspirin 81 mg tablet,delayed 81 mg PO DAILY #30 tabs 07/12/23 release clopidogrel 75 mg tablet (Plavix) 75 mg PO DAILY #30 tabs 07/12/23 pravastatin 20 mg tablet 20 mg PO BEDTIME #30 tabs 07/12/23 Allergies Allergy/AdvReac Type Severity Reaction Status Date / Time alendronate sodium Allergy Severe ANAPHYLAXIS Verified 07/15/23 13:31 [From FOSAMAX] lisinopril [LISINOPRIL] Allergy Severe ANAPHYLAXIS, Verified 07/15/23 13:31 cough clarithromycin Allergy Intermediate CONFUSION, Verified 07/15/23 13:31 [CLARITHROMYCIN] sores on tongue, dry mouth simvastatin [SIMVASTATIN] Allergy Mild DRY Verified 07/15/23 13:31 THROAT, achy, confusion PMFSH Past Medical History Medical History Anxiety and depression Asthma Fracture of 5th metatarsal Fracture of fifth metatarsal bone of right foot GERD (gastroesophageal reflux disease) Gout High cholesterol Hypercholesterolemia Hypergammaglobulinemia Hypertension Hypertension Lumbar degenerative disc disease Nondisplaced fracture of fifth metatarsal bone, left foot, subsequent encounter for fracture with nonunion Osteoarthritis Osteoarthritis of carpometacarpal (CMC) joint of right thumb Osteoarthritis of shoulders, bilateral Osteoporosis Overweight (BMI 25.0-29.9) Peripheral neuropathy Polymyalgia rheumatica Restless leg syndrome Rheumatoid arthritis Rheumatoid arthritis Seizure disorder Seropositive rheumatoid arthritis Thrush, oral Surgical History Corneal transplant status H/O left knee surgery History of appendectomy History of arthroplasty of right hip History of cholecystectomy History of corneal transplant History of open reduction and internal fixation (ORIF) procedure History of total abdominal hysterectomy Family History Family History Father CVD (cardiovascular disease) Mother No problems noted. Social History Social History Household Members: Spouse Household Members Other:: parter Housing: House Do you presently have visiting nurse or other home services: Yes ([facility]) Alcohol intake: never Patient Tobacco Use Status: Never used Tobacco e-Cigarette/Vaping Use: Never Used Second Hand Smoke Exposure: No service: No Current occupational status: retired Cognitive needs: No Hearing needs: Yes Vision needs: Yes Physical Exam ED Vital Signs: Vital Signs - 24 hr 07/15/23 13:31 Temperature 98 F Pulse Rate 81 Respiratory Rate 19 Blood Pressure 125/59 L Pulse Oximetry 98 Oxygen Delivery Method Room Air BMI result Body Mass Index 28.2 Course Course Course Narrative: Rapid medical exam and triage with full evaluation to be done by ER provider for full evaluation of patient as well as review of labs and imaging and despite Patient complains of constipation for 10 days and abdominal pain Discharge Plan Discharge Prescriptions: No Action hydrochlorothiazide 25 mg tablet 25 mg PO DAILY Qty: 90 3RF montelukast 10 mg tablet 10 mg PO BEDTIME Qty: 90 2RF metoprolol succinate 25 mg tablet extended release 24 hr 25 mg PO DAILY Qty: 90 3RF meloxicam 15 mg tablet 15 mg PO DAILY Qty: 90 3RF Prolia 60 mg/mL syringe 60 mg subcut [id number] Qty: 1 1RF allopurinol 100 mg tablet 100 mg PO DAILY Qty: 90 0RF tramadol 50 mg tablet 50 mg PO BID PRN (Reason: pain) Qty: 60 1RF calcium carbonate-vitamin D3 600 mg-5 mcg (200 unit) Tablet 1 tab PO DAILY ropinirole 3 mg tablet 3 mg PO DAILY@1800 methotrexate sodium 2.5 mg tablet 15 mg PO SA pantoprazole 40 mg tablet,delayed release (DR/EC) 40 mg PO MOTUWETH@0630 Rx Instructions: Take every day except when taking methotrexate Artificial Tears (cmc) 1 % Drops 1 drp OPHTHALMIC-LEFT QID aspirin 81 mg Tablet,Delayed Release (Dr/Ec) 81 mg PO DAILY Qty: 30 0RF clopidogrel [Plavix] 75 mg tablet 75 mg PO DAILY Qty: 30 0RF pravastatin 20 mg tablet 20 mg PO BEDTIME Qty: 30 0RF prednisolone acetate 1 % drops,suspension 1 drp ophthalmic-Right TID multivitamin Tablet 1 tab PO DAILY vitamin B complex [B Complex-Vitamin B12] Tablet 1 tab PO DAILY folic acid 1 mg tablet 1 mg PO DAILY Qty: 90 2RF (DME) CMF Bone Stimulator See Rx Instructions .Route .MEDSUPPLY Qty: 1 0RF Rx Instructions: As directed
[2023-07-15 14:29] LABS: MANUAL DIFF FLAG NO
[2023-07-15 14:30] LABS: Basophils Absolute Auto 0.1 X10*3/uL (0.0-0.2); Basophils Percent Auto 0.5 % (0-2); Eosinophils Absolute Auto 0.1 X10*3/uL (0.0-0.4); Eosinophils Percent Auto 1.3 % (0-4); Hematocrit 37.2 % (37.0-47.0); Hemoglobin 12.8 g/dl (12.0-16.0); Imm Gran Abs Auto 0.03 X10*3/uL (0.00-0.03); Imm Gran Pct Auto 0.3 % (0.0-0.4); Lymphocytes Absolute Auto 1.6 X10*3/uL (1.2-4.9); Lymphocytes Percent Auto 16.1 % (20-40); Mean Corpuscular HGB Conc 34.4 g/dl (31.0-35.0); Mean Corpuscular Hemoglobin 29.8 pg (27.0-33.0); Mean Corpuscular Volume 86.5 fL (80.0-98.0); Monocytes Absolute Auto 0.7 X10*3/uL (0.1-1.2); Monocytes Percent Auto 7.3 % (2-11); Neutrophils Absolute Auto 7.5 x10*3/uL (2.0-8.3); Neutrophils Percent Auto 74.5 % (45-73); Platelet Count 247 X10*3/uL (160-400); Red Cell Distribution Width 13.8 % (11.0-16.0); White Blood Count 10.1 X10*3/uL (4.8-10.8)
[2023-07-15 14:32] LABS: Appearance Urine Cloudy; Color Urine Yellow; Glucose Urine UA Negative (Negative); Leukocyte Esterase Urine Trace (Negative); Nitrite Urine Negative (Negative); Specific Gravity - Urine 1.015 (1.005-1.025); UMIC TRIGGER UACC YES; Urine Blood Negative (Negative); Urine Ketones Negative (Negative); Urine Protein Negative (Neg-Trace)
[2023-07-15 14:37] LABS: Bacteria Urine None Seen (None Seen); Hyaline Casts Urine 0-2 /LPF (0-2); RBC Urine 0-2 /HPF (0-2); WBC Urine 0-5 /HPF (0-5)
[2023-07-15 14:54] LABS: Alanine Aminotransferase 20 U/L (0-31); Albumin Level 3.8 g/dL (3.5-5.0); Alkaline Phosphatase 70 U/L (39-117); Anion Gap 11 (12-20); Aspartate Amino Transferase 25 U/L (5-31); Bilirubin Direct 0.2 mg/dL (0.0-0.5); Bilirubin Total 0.4 mg/dL (0.0-1.0); Blood Urea Nitrogen 13 mg/dL (9-16); Calcium 9.5 mg/dL (8.4-10.2); Carbon Dioxide 22 mmol/L (22-29); Chloride 103 mmol/L (96-108); Creatinine Clr Calc Pharmacy 60.3; Estimated Glomerular Filt Rate > 60; Glucose Random 105 mg/dL (60-115); Lipase 31 U/L (8-78); Potassium 3.4 mmol/L (3.3-5.1); Sodium 133 mmol/L (135-145); Total Protein 7.2 g/dL (6.5-8.0)
[2023-07-15] MEDS: iohexoL 350 MG/ML 100 ML INFUS..BTL IV (15:39)
[2023-07-15 17:05] VITALS: BP 154/70; PULSE 71; RESP 16; O2SAT 100
--- NOTE | 2023-07-15 18:05 | PC.NURSE ---
22gIV placed in the right hand - pt waiting for CT. call mota placed within reach.
[2023-07-15] MEDS: Sodium Phosphate,Mono-Dibasic 133 ML ENEMA PR (18:59)
--- NOTE | 2023-07-15 19:58 | ED.GENADULT ---
HPI - General Adult General Chief complaint: General Medical Stated complaint: Impacted colon Time Seen by Provider: 07/15/23 17:58 History of Present Illness HPI narrative: Patient is an 83-year-old female presents today with having no bowel movement for the last 10 days. Positive passing gas. Positive previous history of TIA. Positive history of restless leg syndrome. History of osteoarthritis. History of polymyalgia rheumatica. Denies any surgery to the abdomen. No vomiting. Positive bloating in the abdomen. Related Data Home Medications Medication Instructions Recorded Confirmed multivitamin 1 tab PO DAILY 09/04/20 07/11/23 prednisolone acetate 1 % eye 1 drp ophthalmic-Right TID 09/04/20 07/11/23 drops,suspension vitamin B complex (B 1 tab PO DAILY 09/04/20 07/11/23 Complex-Vitamin B12 tablet) calcium carbonate 600 mg-vitamin 1 tab PO DAILY 07/11/23 07/11/23 D3 5 mcg (200 unit) tablet carboxymethylcellulose sodium 1 % 1 drp ophthalmic-Left QID 07/11/23 07/11/23 eye drops (Artificial Tears (carboxymethylcellulose)) methotrexate sodium 2.5 mg tablet 15 mg PO SA 07/11/23 07/11/23 pantoprazole 40 mg tablet,delayed 40 mg PO MOTUWETH@0630 07/11/23 07/11/23 release ropinirole 3 mg tablet 3 mg PO DAILY@1800 07/11/23 07/11/23 Previous Rx's Medication Instructions Recorded CMF Bone Stimulator #1 ea 10/09/20 hydrochlorothiazide 25 mg tablet 25 mg PO DAILY #90 tabs 10/23/22 montelukast 10 mg tablet 10 mg PO BEDTIME #90 tabs 10/24/22 meloxicam 15 mg tablet 15 mg PO DAILY #90 tabs 01/12/23 metoprolol succinate 25 mg 25 mg PO DAILY #90 tabs 01/12/23 tablet,extended release 24 hr denosumab 60 mg/mL subcutaneous 60 mg subcut [id number] #1 mL 02/21/23 syringe (Prolia) allopurinol 100 mg tablet 100 mg PO DAILY #90 tabs 03/29/23 folic acid 1 mg tablet 1 mg PO DAILY #90 tabs 05/12/23 tramadol 50 mg tablet 50 mg PO BID PRN pain #60 tabs 05/29/23 aspirin 81 mg tablet,delayed 81 mg PO DAILY #30 tabs 07/12/23 release clopidogrel 75 mg tablet (Plavix) 75 mg PO DAILY #30 tabs 07/12/23 pravastatin 20 mg tablet 20 mg PO BEDTIME #30 tabs 07/12/23 polyethylene glycol 3350 17 17 g PO DAILY #119 grams 07/15/23 gram/dose oral powder (Miralax) Allergies Allergy/AdvReac Type Severity Reaction Status Date / Time alendronate sodium Allergy Severe ANAPHYLAXIS Verified 07/15/23 13:31 [From FOSAMAX] lisinopril [LISINOPRIL] Allergy Severe ANAPHYLAXIS, Verified 07/15/23 13:31 cough clarithromycin Allergy Intermediate CONFUSION, Verified 07/15/23 13:31 [CLARITHROMYCIN] sores on tongue, dry mouth simvastatin [SIMVASTATIN] Allergy Mild DRY Verified 07/15/23 13:31 THROAT, achy, confusion Review of Systems Review of Systems: Positive constipation Yes all other systems are reviewed and are negative PMFSH Past Medical History Attestation statement: The following information was validated with the patient. Medical History Osteoarthritis of shoulders, bilateral Rheumatoid arthritis Osteoarthritis of carpometacarpal (CMC) joint of right thumb Overweight (BMI 25.0-29.9) High cholesterol Hypertension Thrush, oral Nondisplaced fracture of fifth metatarsal bone, left foot, subsequent encounter for fracture with nonunion Seropositive rheumatoid arthritis Fracture of 5th metatarsal Fracture of fifth metatarsal bone of right foot Polymyalgia rheumatica Anxiety and depression Osteoarthritis Lumbar degenerative disc disease Osteoporosis Gout Restless leg syndrome Hypergammaglobulinemia GERD (gastroesophageal reflux disease) Seizure disorder Hypertension Hypercholesterolemia Asthma Peripheral neuropathy Rheumatoid arthritis Surgical History Corneal transplant status History of arthroplasty of right hip History of total abdominal hysterectomy History of corneal transplant H/O left knee surgery History of open reduction and internal fixation (ORIF) procedure History of cholecystectomy History of appendectomy Family History Family History Father CVD (cardiovascular disease) Mother No problems noted. Social History Social History Household Members: Spouse Household Members Other:: parter Housing: House Do you presently have visiting nurse or other home services: Yes ([facility]) Alcohol intake: current Alcohol intake frequency: holidays/special occasions only Alcohol type: wine Patient Tobacco Use Status: Never used Tobacco Smoked in Last 30 Days: No e-Cigarette/Vaping Use: Never Used Second Hand Smoke Exposure: No Use of substances other than those prescribed or required for medical reasons: No Advance Directives: No Advance Directives Information Provided: No service: No Current occupational status: retired Cognitive needs: No Hearing needs: Yes Vision needs: Yes Physical Exam ED Vital Signs: Vital Signs - 24 hr 07/15/23 13:31 07/15/23 17:05 Temperature 98 F Pulse Rate 81 71 Respiratory Rate 19 16 Blood Pressure 125/59 L 154/70 H Pulse Oximetry 98 100 Oxygen Delivery Method Room Air Room Air BMI result Body Mass Index 28.2 Appearance: Alert. Oriented X3. No acute distress. Eyes: Pupils equal, round and reactive to light. ENT: Pharynx normal. Neck: Normal inspection. Neck supple. No lymph nodes noted. No crepitus CVS: Normal heart rate and rhythm. Pulses normal. Normal S1 and S2 Respiratory: No respiratory distress. Breath sounds normal. No Wheezing. No rales Abdomen: Soft and nontender. No rigidity. No distention. good BS x4 Rectal exam showed large amount of stool. Skin: Skin warm and dry. Normal skin color. Normal skin turgor. Extremities: No lower extremity edema. Neurovascular intact to all extremities. No Lacerations. No Rash Neuro: Oriented X 3. No motor deficit. No sensory deficit. Moving all extermities. No slurred speech Medications Administered Discontinued Medications Generic Name Dose Route Start Last Admin Trade Name Freq PRN Reason Stop Dose Admin Iohexol 100 ml 07/15/23 15:39 07/15/23 15:39 Iohexol 350 Mg/Ml 100 Ml Infus..Btl IV 07/15/23 15:40 85 ml ONCE ONE Administration Sodium Biphosphate/Sodium Phosphate 133 ml 07/15/23 18:21 07/15/23 18:59 Sodium Phosphate,Davidson-Dibasic 133 Ml Enema DC 07/15/23 18:22 133 ml ONCE ONE Administration Procedures Procedure Narrative Procedure Narrative: Patient manually disimpacted. With moderate amount of stool resulted. An enema was placed. Medical Decision Making Medical Decision Making [facility] Narrative: Patient's white count was normal. Electrolyte was normal. CT scan of the abdomen pelvis did not show any acute evidence of obstruction abscess perforation. It did show moderate amount of constipation. Patient was manually disimpacted. Subsequently an enema was given. Large amount of stool resulted with good as is Vanesa of patient's symptoms. Will discharge patient home. Differential Diagnosis Differential Diagnoses: The differential diagnosis associated with the presentation includes Obstruction, abscess, perforation, constipation Lab Data [facility] Lab Attestation statement: I reviewed the patient's lab results. 07/15/23 14:23 07/15/23 14:23 Labs: Lab Results 07/15/23 Range/Units 14:23 WBC 10.1 (4.8-10.8) X10*3/uL RBC 4.30 (4.20-5.50) X10*6/uL Hgb 12.8 (12.0-16.0) g/dl Hct 37.2 (37.0-47.0) % MCV 86.5 (80.0-98.0) fL MCH 29.8 (27.0-33.0) pg MCHC 34.4 (31.0-35.0) g/dl RDW 13.8 (11.0-16.0) % Plt Count 247 (160-400) X10*3/uL MPV 9.0 L (9.4-12.3) fL Immature Gran % (Auto) 0.3 (0.0-0.4) % Neut % (Auto) 74.5 H (45-73) % Lymph % (Auto) 16.1 L (20-40) % Davidson % (Auto) 7.3 (2-11) % Eos % (Auto) 1.3 (0-4) % Baso % (Auto) 0.5 (0-2) % Lymph # (Auto) 1.6 (1.2-4.9) X10*3/uL [place] # (Auto) 0.7 (0.1-1.2) X10*3/uL Eos # (Auto) 0.1 (0.0-0.4) X10*3/uL Baso # (Auto) 0.1 (0.0-0.2) X10*3/uL Abs Immat Gran (auto) 0.03 (0.00-0.03) X10*3/uL Absolute Neuts (auto) 7.5 (2.0-8.3) x10*3/uL Absolute Nucleated RBC 0.000 (0.0-0.012) X10*3/uL Nucleated RBC % (auto) 0.0 (0.0-0.2) /100WBC Sodium 133 L (135-145) mmol/L Potassium 3.4 (3.3-5.1) mmol/L Chloride 103 (96-108) mmol/L Carbon Dioxide 22 (22-29) mmol/L Anion Gap 11 L (12-20) BUN 13 (9-16) mg/dL Creatinine 0.75 (0.5-1.4) mg/dL Estim Creat Clear Calc 60.3 Estimated GFR > 60 Random Glucose 105 (60-115) mg/dL Calcium 9.5 (8.4-10.2) mg/dL Total Bilirubin 0.4 (0.0-1.0) mg/dL Direct Bilirubin 0.2 (0.0-0.5) mg/dL AST 25 (5-31) U/L ALT 20 (0-31) U/L Alkaline Phosphatase 70 (39-117) U/L Total Protein 7.2 (6.5-8.0) g/dL Albumin 3.8 (3.5-5.0) g/dL Lipase 31 (8-78) U/L Urine Color Yellow Urine Appearance Cloudy Urine pH 7.0 (5.0-9.0) Ur Specific [place] 1.015 (1.005-1.025) Urine Protein Negative (Neg-Trace) mg/dL Urine Glucose (UA) Negative (Negative) mg/dL Urine Ketones Negative (Negative) mg/dL Urine Blood Negative (Negative) Urine Nitrite Negative (Negative) Ur Leukocyte Esterase Trace H (Negative) Urine RBC 0-2 (0-2) /HPF Urine WBC 0-5 (0-5) /HPF Ur Squamous Epith Cells 3-5 (0-2) /HPF Urine Bacteria None Seen (None Seen) Hyaline Casts 0-2 (0-2) /LPF Independent Interpretation I performed an independent interpretation of an: CT Scan Interpretation: Grossly no obstruction no abscess no perforation Radiology Impression Discussion of test interpretation with radiology: I have reviewed the radiologist's reading. External Record Review External record reviewed: Office record Chronic Conditions Patient?s care impacted by: Hypertension Discharge Plan Discharge Clinical Impression: Constipation Patient Disposition: Home, Self-Care Instructions: Constipation (DC) Prescriptions: New polyethylene glycol 3350 [Miralax] 17 gram/dose powder 17 g PO DAILY Qty: 119 0RF No Action hydrochlorothiazide 25 mg tablet 25 mg PO DAILY Qty: 90 3RF montelukast 10 mg tablet 10 mg PO BEDTIME Qty: 90 2RF metoprolol succinate 25 mg tablet extended release 24 hr 25 mg PO DAILY Qty: 90 3RF meloxicam 15 mg tablet 15 mg PO DAILY Qty: 90 3RF Prolia 60 mg/mL syringe 60 mg subcut [id number] Qty: 1 1RF allopurinol 100 mg tablet 100 mg PO DAILY Qty: 90 0RF tramadol 50 mg tablet 50 mg PO BID PRN (Reason: pain) Qty: 60 1RF calcium carbonate-vitamin D3 600 mg-5 mcg (200 unit) Tablet 1 tab PO DAILY ropinirole 3 mg tablet 3 mg PO DAILY@1800 methotrexate sodium 2.5 mg tablet 15 mg PO SA pantoprazole 40 mg tablet,delayed release (DR/EC) 40 mg PO MOTUWETH@0630 Rx Instructions: Take every day except when taking methotrexate Artificial Tears (cmc) 1 % Drops 1 drp OPHTHALMIC-LEFT QID aspirin 81 mg Tablet,Delayed Release (Dr/Ec) 81 mg PO DAILY Qty: 30 0RF clopidogrel [Plavix] 75 mg tablet 75 mg PO DAILY Qty: 30 0RF pravastatin 20 mg tablet 20 mg PO BEDTIME Qty: 30 0RF prednisolone acetate 1 % drops,suspension 1 drp ophthalmic-Right TID multivitamin Tablet 1 tab PO DAILY vitamin B complex [B Complex-Vitamin B12] Tablet 1 tab PO DAILY folic acid 1 mg tablet 1 mg PO DAILY Qty: 90 2RF (DME) CMF Bone Stimulator See Rx Instructions .Route .MEDSUPPLY Qty: 1 0RF Rx Instructions: As directed Referrals: Renetta Vides MD [Primary Care Provider] - 07/17/23
[2023-07-15] MEDS: rOPINIRole HCL 1 MG TABLET PO (20:27)
[2023-07-15] MEDS: rOPINIRole HCL 2 MG TABLET PO (20:27)
--- NOTE | 2023-07-15 20:31 | PC.NURSE ---
Assumed care of patient at 1900, PT given fleet enema at shift change. Pt Used call mota to inform this RN that pt had a bowel movement. significant amount of BM passed. PT cleaned up, gown and linens changed x3. PT noted restless leg med dose missed and increased leg electrical pains. This RN informed provided- new meds ordered. Administered medications as per JAN<
== END 2023-07-15 21:38 | disposition home or self-care (01) ==
PROVIDERS: Physician Assistant Medical; Emergency Provider Emergency Medicine Emergency Medical Services; PCP Internal Medicine
DX: K59.00 Constipation, unspecified (principal); R14.0 Abdominal distension (gaseous); I10 Essential (primary) hypertension; E78.00 Pure hypercholesterolemia, unspecified; M05.9 Rheumatoid arthritis with rheumatoid factor, unspecified; Z86.73 Personal history of transient ischemic attack (TIA), and cerebral infarction without residual deficits; Z79.899 Other long term (current) drug therapy
CPT/HCPCS: 36415; 74177; 80048; 80076; 81001; 83690; 85025; 99284; Q9967

== ENCOUNTER 2023-09-06 11:01 | Outpatient (AMB) | payer MEDICARE, OTHER, SELFPAY ==
[2023-09-06 11:21] VITALS: BP 130/76; PULSE 65; O2SAT 96; BMI 27.2
--- NOTE | 2023-09-06 11:21 | A.OFFPC_ITS ---
Vital Signs 09/06/23 11:21 Height 5 ft 7 in Weight 174 lb BMI 27.2 BP 130/76 Blood Pressure Location Lt brachial Position Sitting Pulse 65 Pulse Source Pulse Oximeter Pulse Oximetry (%) 96 Oxygen Delivery Method Room Air Intake Visit Reasons: LIYA Intake Note: States she takes something with a C for blisters she gets in her mouth. Allergies alendronate sodium [From FOSAMAX] Allergy (Severe, Verified 09/06/23 11:22) ANAPHYLAXIS lisinopril [LISINOPRIL] Allergy (Severe, Verified 09/06/23 11:22) ANAPHYLAXIS, cough clarithromycin [CLARITHROMYCIN] Allergy (Intermediate, Verified 09/06/23 11:22) CONFUSION, sores on tongue, dry mouth simvastatin [SIMVASTATIN] Allergy (Mild, Verified 09/06/23 11:22) DRY THROAT, achy, confusion Tobacco use date assessed: 05/12/23 Fall risk assessment: No Falls in past year Last assessed Fall Risk: 09/06/23 Dental Screening Dental Screen Date: 09/06/23 Did you have a dental visit in the last 12 months?: Yes Did you have a dental problem in the last 6 months where you did not have access to dental care?: No Was dental information given to patient?: Patient has dentist HPI LIYA HPI Details 83-year-old overweight female with histo ry of osteoporosis on Prolia shot with last bone density is January 2022 hypertension hypercholesterolemia GERD rheumatoid arthritis polymyalgia rheumatica and generalized anxiety disorder last seen in May 2023. Recently seen in the ER July [address] scan done showing diverticulosis mild small hiatal hernia, marked diffuse calcific atherosclerosis. Earlier last month hospitalization for left-sided weakness ER CTA head and neck negative MRI done negative placed on aspirin and Plavix. Patient follows up with Rheumatology last seen in June 2020 on methotrexate meloxicam tramadol and folic acid. For the PMR on prednisone patient did have an injection left shoulder x-ray showing severe osteoarthritis both [facility] Medical History (Updated 09/06/23 @ 11:45 by Renetta Vides MD) Transient ischemic attack (TIA) Osteoarthritis of shoulders, bilateral Rheumatoid arthritis Osteoarthritis of carpometacarpal (CMC) joint of right thumb Overweight (BMI 25.0-29.9) High cholesterol Hypertension Thrush, oral Nondisplaced fracture of fifth metatarsal bone, left foot, subsequent encounter for fracture with nonunion Seropositive rheumatoid arthritis Fracture of 5th metatarsal Fracture of fifth metatarsal bone of right foot Polymyalgia rheumatica Anxiety and depression Osteoarthritis Lumbar degenerative disc disease Osteoporosis Gout Restless leg syndrome Hypergammaglobulinemia GERD (gastroesophageal reflux disease) Seizure disorder Hypertension Hypercholesterolemia Asthma Peripheral neuropathy Rheumatoid arthritis Surgical History Corneal transplant status History of arthroplasty of right hip History of total abdominal hysterectomy History of corneal transplant H/O left knee surgery History of open reduction and internal fixation (ORIF) procedure History of cholecystectomy History of appendectomy Family History Father CVD (cardiovascular disease) Mother No problems noted. Social History Household Members: Spouse Household Members Other:: parter Housing: House Do you presently have visiting nurse or other home services: Yes ([facility]) Alcohol intake: current Alcohol intake frequency: holidays/special occasions only Alcohol type: wine Patient Tobacco Use Status: Never used Tobacco e-Cigarette/Vaping Use: Never Used Second Hand Smoke Exposure: No service: No Current occupational status: retired Cognitive needs: No Hearing needs: Yes Vision needs: Yes Questionnaire PHQ-9 Over the last 2 weeks, how often have you been bothered by any of the following problems? 1. Little interest or pleasure in doing things: more than half the days 2. Feeling down, depressed, or hopeless: several days 3. Trouble falling or staying asleep, or sleeping too much: several days 4. Feeling tired or having little energy: more than half the days 5. Poor appetite or overeating: not at all 6. Feeling bad about yourself - or that you are a failure or have let yourself or your family down: several days 7. Trouble concentrating on things, such as reading the newspaper or watching television: not at all 8. Moving or speaking so slowly that other people could have noticed. Or the opposite - being so fidgety or restless that you have been moving around a lot more than usual: not at all 9. Thoughts that you would be better off or of hurting yourself in some way: not at all Total score: 7 Depression Screening Interpretation: Positive (1-4; minimal, 5-9; mild depression, 10-14; moderate depression) Depression Screening Follow-up: Other (will continue to follow, may benefit from starting antidepresant. ) Depression Screening Done: Yes Source: Developed by Drs. [place] Salmon, Annalise Muse, Chris Montana and colleagues, with an educational shiela from [employer]. Thrive Questionnaire Date Thrive assessed: 07/11/23 AUDIT C Alcohol Use Questionnaire (AUDIT-C) 1. How often do you have a drink containing alcohol?: 2-3 times a week 2. How many drinks containing alcohol do you have on a typical day when you are drinking?: 1 or 2 3. How often do you have six or more drinks on one occasion?: Never Total Score: 3 LIYA-7 AMB Questionnaire LIYA-7 Date LIYA - 7 assessed: 11/15/22 Source: Developed by Drs. Montana Salmon, Annalise Muse, Chris Montana and colleagues, with an educational shiela from [employer]. Physical exam (Primary Care) Vital Signs: Last Vital Signs Pulse 65 09/06/23 11:21 BP 130/76 09/06/23 11:21 Pulse Ox 96 09/06/23 11:21 Oxygen Delivery Method Room Air 09/06/23 11:21 BMI result Body Mass Index 27.2 Tobacco/Smoking Status: Tobacco use Status Tobacco use date assessed 05/12/23 09/06/23 11:28 Patient Tobacco Use Status Never used Tobacco 09/06/23 11:28 e-Cigarette/Vaping Use Never Used 09/06/23 11:28 PHQ-9: PHQ-9 Score PHQ-9: Total score 7 09/06/23 11:28 Depression Screening Interpretation: Positive (1-4; minimal, 5-9; mild depression, 10-14; moderate depression) Depression Screening Follow-up: Other (will continue to follow, may benefit from starting antidepresant. ) Thrive Assessment: Date of Thrive Assessment Date Thrive assessed 07/11/23 09/06/23 11:28 Const General: alert; No acute distress Eyes Conjunctivae: conjunctivae normal Resp Auscultation: clear to auscultation bilaterally Cardio Rate: regular rate Rhythm: regular rhythm GI Inspection: Yes normal to inspection Extrem General: Yes normal to inspection and No edema Office Procedures Flu Questionnaire Does the patient have a severe egg allergy?: No Does the patient have severe life threatening allergies?: No Does the patient have a fever or illness today?: No Has the patient ever had Guillain-[place] Syndrome?: No Has the patient ever had any past reaction to a flu shot?: No Immunizations flu vacc [id number] 6mos up(PF) 60 mcg(15 mcgx4)/0.5 mL IM syringe Performing Provider: Renetta Vides MD [facility] Administered by: Keyana Lanier CMA on 09/06/23 11:32 Dose Route Admin Location Dispensed Lot Number Expiration Date NDC Manager Field Sales 0.5 mL IM Left Deltoid 0.5 mL [id number] 05/05/24 51063-340-67 Agari VIS Given Date VIS Provided VIS Publication Date 09/06/23 Single Vaccine 21 Eligibility Eligibility Date Funding Source Not [facility] Eligible 09/06/23 Private Assessment and Plan Assessment & Plan (1) Osteoarthritis of shoulders, bilateral: Code(s): M19.011 - Primary osteoarthritis, right shoulder; M19.012 - Primary osteoarthritis, left shoulder Plan: Patient follows up with Rheumatology and had injection of the left shoulder (2) Transient ischemic attack (TIA): Comment: ER July 2023 with left-sided weakness Code(s): G45.9 - Transient cerebral ischemic attack, unspecified Plan: Patient has been placed on aspirin and Plavix (3) Hypertension: Code(s): I10 - Essential (primary) hypertension Qualifiers: Hypertension type: essential hypertension Qualified Code(s): I10 - Essential (primary) hypertension Plan: Continue with blood pressure medication. Decrease salt intake and exercise patient on hydrochlorothiazide 25 mg once a day metoprolol 25 mg once a day (4) Hypercholesterolemia: Code(s): E78.00 - Pure hypercholesterolemia, unspecified Plan: Avoid fried foods, chicken skin, eggs, butter margarine, pastries and meat. Be it pork or beef they have a lot of cholesterol now that TIA has happened LDL goal of less than 70 and triglyceride of less than 150 (5) Asthma: Code(s): J45.909 - Unspecified asthma, uncomplicated Qualifiers: Asthma severity: mild Asthma persistence: intermittent Asthma complication type: uncomplicated Qualified Code(s): J45.20 - Mild intermittent asthma, uncomplicated Plan: Continue with inhaler as needed (6) GERD (gastroesophageal reflux disease): Code(s): K21.9 - Gastro-esophageal reflux disease without esophagitis Qualifiers: Esophagitis presence: without esophagitis Qualified Code(s): K21.9 - Gastro-esophageal reflux disease without esophagitis Plan: Avoid the foods that causes that usually spicy foods, tomato products, juices, coffee, soda and foods that your sensitive to. After eating do not lie down, allow 3-4 hours before in lie down. And keep the head of bed above 30 degrees to avoid the acid from going up. (7) Seropositive rheumatoid arthritis: Comment: Methotrexate - 2016-present currently 6 tabs weekly Xeljanx 11/2019-06/2020 Humira 10/2018-02/2019 Simponi Aria infusions- January 2016 Remicade 08/2014-01/2015 Enbrel - prior to 2013 Code(s): M05.9 - Rheumatoid arthritis with rheumatoid factor, unspecified Plan: Continue to follow-up with Rheumatology (8) Polymyalgia rheumatica: Code(s): M35.3 - Polymyalgia rheumatica Plan: Continue follow-up with Rheumatology (9) Generalized anxiety disorder: Comment: Declined referral for counseling May 2023 Code(s): F41.1 - Generalized anxiety disorder Plan: Stable Orders: Orders Influenza [id number] Immunization Today Z23 - Encounter for immunization Lipid Panel 3 Months E78.00 - Pure hypercholesterolemia, unspecified Comprehensive Met. Panel 3 Months E78.00 - Pure hypercholesterolemia, unspecified Medications: New atorvastatin 40 mg PO DAILY 30 tabs 3RF E78.00 - Pure hypercholesterolemia, unspecified Refilled clopidogrel (Plavix) 75 mg PO DAILY 90 tabs 3RF G45.9 - Transient cerebral ischemic attack, unspecified aspirin 81 mg PO DAILY 90 tabs 3RF G45.9 - Transient cerebral ischemic attack, unspecified Discontinued pravastatin Discontinued Reason: Ancillary Entered New Order 20 mg PO BEDTIME 30 tabs 0RF Coding Level of Care Code Est Pt Level 4 (27965) Diagnoses Osteoarthritis of shoulders, bilateral M19.011; M19.012 Transient ischemic attack (TIA) G45.9 Essential hypertension I10 Hypertension type: essential hypertension Hypercholesterolemia E78.00 Mild intermittent asthma without complication J45.20 Asthma severity: mild Asthma persistence: intermittent Asthma complication type: uncomplicated Gastroesophageal reflux disease without esophagitis K21.9 Esophagitis presence: without esophagitis Seropositive rheumatoid arthritis M05.9 Polymyalgia rheumatica M35.3 Generalized anxiety disorder F41.1 Additional Codes PHQ-9 - 64423 - PHQ-9 Billing: ([id number])
== END 2023-09-06 11:56 | disposition home or self-care (01) ==
PROVIDERS: PCP Internal Medicine; Visit Provider Internal Medicine
DX: Z23 Encounter for immunization (principal); F41.1 Generalized anxiety disorder; M19.011 Primary osteoarthritis, right shoulder; M35.3 Polymyalgia rheumatica; J45.20 Mild intermittent asthma, uncomplicated; E78.00 Pure hypercholesterolemia, unspecified; K21.9 Gastro-esophageal reflux disease without esophagitis
CPT/HCPCS: 90471; 90686; 96127; 99214

== ENCOUNTER 2023-10-06 14:08 | Outpatient (REF) | payer MEDICARE, OTHER, SELFPAY ==
[2023-10-06 15:28] LABS: C Reactive Protein 0.57 mg/dL (< or = 0.50)
[2023-10-06 16:04] LABS: Erythrocyte Sedimentation Rate 33 MM/HR (0-20)
== END 2023-10-06 14:09 | disposition home or self-care (01) ==
LOC: HO.LAB 14:08
PROVIDERS: Internal Medicine Rheumatology; PCP Internal Medicine; Visit Provider Internal Medicine
DX: M05.9 Rheumatoid arthritis with rheumatoid factor, unspecified (principal)
CPT/HCPCS: 36415; 85652; 86140

== ENCOUNTER 2023-11-28 07:40 | Observation (INO) | payer MEDICARE, OTHER, SELFPAY ==
[2023-11-28] VITALS (11 sets, daily range): BP systolic 128–180; BP diastolic 48–92; PULSE 76–101; RESP 16–19; TEMP 36.2–36.6; O2SAT 84–100; BMI 27.6
--- NOTE | ~2023-11-28 | CT_ITS ---
EXAMINATION: CT HEAD WITHOUT CONTRAST CLINICAL INFORMATION: Nausea and vomiting. Rule out stroke or bleed COMPARISON: Previous head CT TECHNIQUE: Contiguous axial imaging was performed from the skull base to vertex without intravenous administration of contrast. This CT examination was performed using dose optimization techniques as appropriate, variously including the following: *Automated exposure control *Adjustment of mA and/or kV according to patient size (this includes techniques or standardized protocols for targeted exams where dose is matched to indication/reason for exam; i.e. extremities or head) *Use of iterative reconstruction technique DLP: 791 mGy-cm FINDINGS: There is no evidence of an extra-axial collection. There is no evidence of intra or extra-axial hemorrhage. The ventricles and extra-axial CSF spaces are prominent suggestive of generalized atrophy. There is nonspecific periventricular white matter disease. No mass, mass effect or infarct. There is inflammatory change in the bilateral maxillary sinuses. No skull fracture. CT/CT head/brain wo IV con IMPRESSION: No acute findings. Generalized atrophy and nonspecific periventricular white matter disease.
--- NOTE | ~2023-11-28 | MR_ITS ---
EXAMINATION: MR BRAIN WITH CONTRAST CLINICAL INFORMATION: Limited postcontrast sequences of the brain were obtained. COMPARISON: MR brain and CT head 11/28/2023 TECHNIQUE: Limited postcontrast MRI of the brain was performed after the administration of 8 mL of Gadavist. FINDINGS: No abnormal intracranial enhancement to correspond to the punctate focus of susceptibility artifact in the left parieto-occipital region. No additional abnormal intracranial foci of enhancement. Generalized cerebral volume loss with associated ventricular and sulcal prominence. No midline shift or downward herniation. MR/MR head/brain w con IMPRESSION: No abnormal enhancement associated with the small focus of susceptibility artifact in the left parieto-occipital region. Finding likely represents an area of interval microhemorrhage.
--- NOTE | ~2023-11-28 | MR_ITS ---
EXAMINATION: MR BRAIN WITHOUT CONTRAST CLINICAL INFORMATION: Evaluate for CVA COMPARISON: Same day CT head, MRI brain 953 TECHNIQUE: MRI of the brain was obtained using routine sequences without contrast. FINDINGS: There is no reduced diffusion to suggest acute infarct. Rounded focus of susceptibility artifact in the left posterior right occipital region with associated T2/FLAIR hyperintense signal (5-18). Generalized cerebral volume loss with associated ventricular and sulcal prominence. Periventricular and subcortical T2/FLAIR hyperintense foci are nonspecific but likely represent chronic microvascular ischemic change. Intracranial flow voids are preserved. Bilateral intraocular lens replacements. Scattered polypoid mucosal thickening in the paranasal sinuses. The mastoid air cells are well-aerated. No focal expansile/destructive osseous lesion. MR/MR head/brain wo con IMPRESSION: No restricted diffusion to suggest acute infarction. Small focus of susceptibility artifact with associated T2/FLAIR signal abnormality in the left parieto-occipital region was not definitively present on the prior examination of 07/11/2023. This may represent an area of interval microhemorrhage, but correlation with contrast-enhanced examination is recommended for further characterization/to exclude an underlying enhancing lesion.
--- NOTE | 2023-11-28 07:50 | ED_ITS ---
HPI - Dizziness General Chief Complaint: Nausea/Vomiting/Diarrhea Stated Complaint: VOMITING,NAUSEA SINCE LAST NOC PER EMS Time Seen by Provider: 11/28/23 07:42 Source: patient Mode of arrival: EMS Limitations: no limitations History of Present Illness HPI Narrative: 83-year-old female with history of Meniere's disease, TIA, rheumatoid arthritis, high cholesterol, hypertension, depression, anxiety, hypogammaglobulinemia, restless legs syndrome, GERD, who presents emergency department for evaluation of a flare-up of her Meniere's disease. She states that yesterday at around 16:00 hours she had a sudden onset of room spinning vertigo. She states that since that time with minimal movement of her head she feels dizzy. Patient has had multiple episodes of nausea and vomiting and has not been able to hold down food or fluid. She also states that her legs are twitching uncontrollably and this is consistent with her restless leg syndrome. She denied fever, chills, chest pain, diarrhea, dark stools or bloody stools. Related Data Home Medications Medication Instructions Recorded Confirmed multivitamin 1 tab PO DAILY 09/04/20 07/11/23 prednisolone acetate 1 % eye 1 drp ophthalmic-Right TID 09/04/20 07/11/23 drops,suspension vitamin B complex (B 1 tab PO DAILY 09/04/20 07/11/23 Complex-Vitamin B12 tablet) calcium carbonate 600 mg-vitamin 1 tab PO DAILY 07/11/23 07/11/23 D3 5 mcg (200 unit) tablet carboxymethylcellulose sodium 1 % 1 drp ophthalmic-Left QID 07/11/23 07/11/23 eye drops (Artificial Tears (carboxymethylcellulose)) pantoprazole 40 mg tablet,delayed 40 mg PO MOTUWETH@0630 07/11/23 07/11/23 release meclizine 25 mg tablet 25 mg PO TID PRN 09/06/23 Previous Rx's Medication Instructions Recorded [facility] Bone Stimulator #1 ea 10/09/20 hydrochlorothiazide 25 mg tablet 25 mg PO DAILY #90 tabs 10/23/22 montelukast 10 mg tablet 10 mg PO BEDTIME #90 tabs 10/24/22 meloxicam 15 mg tablet 15 mg PO DAILY #90 tabs 01/12/23 denosumab 60 mg/mL subcutaneous 60 mg subcut [id number] #1 mL 02/21/23 syringe (Prolia) tramadol 50 mg tablet 50 mg PO BID PRN pain #60 tabs 05/29/23 polyethylene glycol 3350 17 17 g PO DAILY #119 grams 07/15/23 gram/dose oral powder (Miralax) allopurinol 100 mg tablet 100 mg PO DAILY #90 tabs 08/07/23 prednisone 1 mg tablet 2 mg (2 x 1 mg) PO DAILY #60 tabs 08/07/23 aspirin 81 mg tablet,delayed 81 mg PO DAILY #90 tabs 09/06/23 release atorvastatin 40 mg tablet 40 mg PO DAILY #30 tabs 09/06/23 clopidogrel 75 mg tablet (Plavix) 75 mg PO DAILY #90 tabs 09/06/23 ropinirole 3 mg tablet 3 mg PO DAILY@1800 #90 tabs 09/08/23 methotrexate sodium 2.5 mg tablet 15 mg (6 x 2.5 mg) PO QWEEK #72 09/26/23 tabs metoprolol succinate 25 mg 25 mg PO DAILY #90 tabs 10/23/23 tablet,extended release 24 hr folic acid 1 mg tablet 1 mg PO DAILY #90 tabs 11/27/23 Allergies Allergy/AdvReac Type Severity Reaction Status Date / Time alendronate sodium Allergy Severe ANAPHYLAXIS Verified 11/28/23 07:48 [From FOSAMAX] lisinopril [LISINOPRIL] Allergy Severe ANAPHYLAXIS, Verified 11/28/23 07:48 cough clarithromycin Allergy Intermediate CONFUSION, Verified 11/28/23 07:48 [CLARITHROMYCIN] sores on tongue, dry mouth simvastatin [SIMVASTATIN] Allergy Mild DRY Verified 11/28/23 07:48 THROAT, achy, confusion Review of Systems 2 Review of Systems: Yes all other systems are reviewed and are negative FORMERLY [facility], [facility]–1983 Past Medical History Medical History Meniere disease Transient ischemic attack (TIA) Osteoarthritis of shoulders, bilateral Rheumatoid arthritis Osteoarthritis of carpometacarpal (CMC) joint of right thumb Overweight (BMI 25.0-29.9) High cholesterol Hypertension Thrush, oral Nondisplaced fracture of fifth metatarsal bone, left foot, subsequent encounter for fracture with nonunion Seropositive rheumatoid arthritis Fracture of 5th metatarsal Fracture of fifth metatarsal bone of right foot Polymyalgia rheumatica Anxiety and depression Osteoarthritis Lumbar degenerative disc disease Osteoporosis Gout Restless leg syndrome Hypergammaglobulinemia GERD (gastroesophageal reflux disease) Seizure disorder Hypertension Hypercholesterolemia Asthma Peripheral neuropathy Rheumatoid arthritis Surgical History Corneal transplant status History of arthroplasty of right hip History of total abdominal hysterectomy History of corneal transplant H/O left knee surgery History of open reduction and internal fixation (ORIF) procedure History of cholecystectomy History of appendectomy Family History Family History Father CVD (cardiovascular disease) Mother No problems noted. Social History Social History Household Members: Spouse Household Members Other:: parter Housing: House Do you presently have visiting nurse or other home services: Yes ([facility]) Alcohol intake: current Alcohol intake frequency: holidays/special occasions only Alcohol type: wine Comment: patient uses call light appropriately Patient Tobacco Use Status: Never used Tobacco Smoked in Last 30 Days: No e-Cigarette/Vaping Use: Never Used Second Hand Smoke Exposure: No Use of substances other than those prescribed or required for medical reasons: No Advance Directives: Yes Advance Directives on File: Yes Advance Directives Date on File: 07/11/23 service: No Current occupational status: retired Cognitive needs: No Hearing needs: Yes Vision needs: Yes Physical Exam 2 Vital Signs: Vital Signs: Last Vital Signs Temp 97.6 F 11/28/23 13:46 Pulse 93 11/28/23 13:46 Resp 18 11/28/23 13:46 BP 147/71 H 11/28/23 13:46 Pulse Ox 93 11/28/23 13:46 O2 Del Method Room Air 11/28/23 13:46 O2 Flow Rate 4 11/28/23 08:46 BMI result Body Mass Index 27.6 Vital signs were normal except for an elevated blood pressure of 172/65 Exam General: Awake, alert in no distress Head: Normocephalic, atraumatic EENT: PERRL, lateral nystagmus, Lids normal, sclera normal, conjunctiva normal, nose normal , ears normal, throat without erythema or exudates Neck: Supple, no adenopathy, no trachea midline or C-spine tenderness Lung: breath sounds symmetric, no wheezing, rales or rhonchi Chest: symmetric movement, nontender Heart: regular rate and rhythm, normal S1, S2 no murmurs or rubs Abdomen: soft, non-tender, nondistended, normal bowel sounds Back: no vertebral tenderness, no CVAT Extremities: no deformities, moves all extremities symmetrically Skin: no rashes, no lesion, normal color and warmth Neuro General:: Awake, alert, oriented, normal speech, Cranial nerves: cranial nerves 2 through 12 intact Strength: moves all extremities symmetrically with symmetric strength Cerebellar: Patient does have lateral nystagmus, she has good vwarel-ly-sbim-to-finger, good rapid finger movement, normal heel to levin Psych: Pleasant, cooperative Medications Administered Discontinued Medications Generic Name Dose Route Start Last Admin Trade Name Freq PRN Reason Stop Dose Admin Sodium Chloride 1,000 mls @ 999 mls/hr 11/28/23 07:48 11/28/23 09:03 Ns IV 11/28/23 08:48 Infused .Q1H1M STA Infusion Meclizine HCl 25 mg 11/28/23 09:47 11/28/23 09:57 Meclizine Hcl 25 Mg Tablet PO 11/28/23 09:48 25 mg ONCE STA Administration Midazolam HCl 2 mg 11/28/23 08:10 11/28/23 08:15 Midazolam Hcl/Pf 2 Mg/2 Ml Vial IVPUSH 11/28/23 08:11 2 mg ONCE ONE Administration Ondansetron HCl 4 mg 11/28/23 07:48 11/28/23 08:09 Ondansetron Hcl 4 Mg/2 Ml Vial IVPUSH 11/28/23 07:49 4 mg ONCE ONE Administration Ropinirole HCl 3 mg 11/28/23 09:47 11/28/23 12:26 Ropinirole Hcl 2 Mg Tablet PO 11/28/23 09:48 3 mg ONCE STA Administration Medical Decision Making Medical Decision Making MDM Narrative: 83-year-old female with history of Meniere's disease, TIA, rheumatoid arthritis, high cholesterol, hypertension, depression, anxiety, hypogammaglobulinemia, restless legs syndrome, GERD, who presents emergency department for evaluation of a flare-up of her Meniere's disease and restless leg syndrome with sudden onset yesterday at 16:00 hours with associated nausea and vomiting. Vital signs were normal except for an elevated blood pressure. Patient does have lateral nystagmus and is actively vomiting. Exam is otherwise unremarkable with normal cerebellar exam. Following evaluation was ordered: CBC, CMP, lipase Patient was treated with the following: Normal saline IV x1 L, Zofran 4 mg IV and Versed 2 mg IV. Patient will be placed on a cardiac and O2 saturation monitor 11:51 My interpretation patient's laboratory evaluation is as follows: Normocytic anemia with an H&H of 12 and 36. Elevated BUN 23. Elevated glucose 133. Patient is feeling better after the above treatment however she states that her restless leg syndrome is severe. She takes ropinirole 3 mg orally and this was ordered by me. Patient is also ordered to get meclizine 25 mg orally and meclizine 25 mg orally. Patient is feeling significantly better and will be discharged home She was prescribed meclizine, Zofran ODT and Ativan. 12:50 The nurse attempted to discharge the patient however as soon as she stood up from the bed, she had significant vertigo and was unable to walk. Given her persistent vertigo and inability to walk, I will discuss admission with the covering hospitalist Differential Diagnosis Differential Diagnoses: The differential diagnosis associated with the presentation includes Differential diagnosis includes was not limited to vertigo secondary to Meniere's disease, positional vertigo, viral syndrome, cerebellar stroke, electrolyte abnormalities, anemia Admission/Observation Consideration of admission/observation: Escalation of care including admission/observation considered Lab Data MDM Lab Attestation statement: I reviewed the patient's lab results. 11/28/23 08:01 11/28/23 08:01 Labs: Lab Results 11/28/23 Range/Units 08:01 WBC 9.8 (4.8-10.8) X10*3/uL RBC 4.11 L (4.20-5.50) X10*6/uL Hgb 12.0 (12.0-16.0) g/dl Hct 36.3 L (37.0-47.0) % MCV 88.3 (80.0-98.0) fL MCH 29.2 (27.0-33.0) pg MCHC 33.1 (31.0-35.0) g/dl RDW 13.1 (11.0-16.0) % Plt Count 248 (160-400) X10*3/uL MPV 9.2 L (9.4-12.3) fL Immature Gran % (Auto) 0.5 H (0.0-0.4) % Neut % (Auto) 75.0 H (45-73) % Lymph % (Auto) 13.7 L (20-40) % [place] % (Auto) 7.4 (2-11) % Eos % (Auto) 2.8 (0-4) % Baso % (Auto) 0.6 (0-2) % Lymph # (Auto) 1.3 (1.2-4.9) X10*3/uL [place] # (Auto) 0.7 (0.1-1.2) X10*3/uL Eos # (Auto) 0.3 (0.0-0.4) X10*3/uL Baso # (Auto) 0.1 (0.0-0.2) X10*3/uL Abs Immat Gran (auto) 0.05 H (0.00-0.03) X10*3/uL Absolute Neuts (auto) 7.3 (2.0-8.3) x10*3/uL Absolute Nucleated RBC 0.000 (0.0-0.012) X10*3/uL Nucleated RBC % (auto) 0.0 (0.0-0.2) /100WBC Sodium 135 (135-145) mmol/L Potassium 3.6 (3.3-5.1) mmol/L Chloride 103 (96-108) mmol/L Carbon Dioxide 21 L (22-29) mmol/L Anion Gap 15 (12-20) BUN 23 H (9-16) mg/dL Creatinine 0.82 (0.5-1.4) mg/dL Estim Creat Clear Calc 54.6 Estimated GFR > 60 Random Glucose 133 H (60-115) mg/dL Calcium 9.3 (8.4-10.2) mg/dL Total Bilirubin 0.4 (0.0-1.0) mg/dL AST 36 H (5-31) U/L ALT 24 (0-31) U/L Alkaline Phosphatase 122 H (39-117) U/L Total Protein 7.8 (6.5-8.0) g/dL Albumin 3.8 (3.5-5.0) g/dL Lipase 46 (8-78) U/L Independent Historian Clinical information obtained from an independent historian. History obtained from or confirmed by: Spouse Prescription Management I considered prescription management with: Other (Antiemetics) Chronic Conditions Patient?s care impacted by: Other (Asthma, GERD, high cholesterol) Discharge Plan Discharge Patient Disposition: Admitted As Inpatient Instructions: Vertigo (ED) Prescriptions: No Action hydrochlorothiazide 25 mg tablet 25 mg PO DAILY Qty: 90 3RF montelukast 10 mg tablet 10 mg PO BEDTIME Qty: 90 2RF meloxicam 15 mg tablet 15 mg PO DAILY Qty: 90 3RF Prolia 60 mg/mL syringe 60 mg subcut [id number] Qty: 1 1RF tramadol 50 mg tablet 50 mg PO BID PRN (Reason: pain) Qty: 60 1RF allopurinol 100 mg tablet 100 mg PO DAILY Qty: 90 3RF prednisone 1 mg tablet 2 mg PO DAILY Qty: 60 3RF ropinirole 3 mg tablet 3 mg PO DAILY@1800 Qty: 90 2RF methotrexate sodium 2.5 mg tablet 15 mg PO QWEEK Qty: 72 0RF metoprolol succinate 25 mg tablet extended release 24 hr 25 mg PO DAILY Qty: 90 3RF folic acid 1 mg tablet 1 mg PO DAILY Qty: 90 2RF calcium carbonate-vitamin D3 600 mg-5 mcg (200 unit) Tablet 1 tab PO DAILY pantoprazole 40 mg tablet,delayed release (DR/EC) 40 mg PO MOTUWETH@0630 Rx Instructions: Take every day except when taking methotrexate Artificial Tears (cmc) 1 % Drops 1 drp OPHTHALMIC-LEFT QID polyethylene glycol 3350 [Miralax] 17 gram/dose powder 17 g PO DAILY Qty: 119 0RF prednisolone acetate 1 % drops,suspension 1 drp ophthalmic-Right TID multivitamin Tablet 1 tab PO DAILY vitamin B complex [B Complex-Vitamin B12] Tablet 1 tab PO DAILY meclizine 25 mg tablet 25 mg PO TID PRN aspirin 81 mg tablet,delayed release (DR/EC) 81 mg PO DAILY Qty: 90 3RF clopidogrel [Plavix] 75 mg tablet 75 mg PO DAILY Qty: 90 3RF atorvastatin 40 mg tablet 40 mg PO DAILY Qty: 30 3RF (DME) CMF Bone Stimulator See Rx Instructions .Route .MEDSUPPLY Qty: 1 0RF Rx Instructions: As directed
[2023-11-28] MEDS: 0.9 % Sodium Chloride 1,000 ML 999 ML IV (08:02)
[2023-11-28 08:07] LABS: MANUAL DIFF FLAG NO
[2023-11-28] MEDS: ondansetron HCL 4 MG/2 ML VIAL IVPUSH (08:09)
[2023-11-28 08:14] LABS: Basophils Absolute Auto 0.1 X10*3/uL (0.0-0.2); Basophils Percent Auto 0.6 % (0-2); Eosinophils Absolute Auto 0.3 X10*3/uL (0.0-0.4); Eosinophils Percent Auto 2.8 % (0-4); Hematocrit 36.3 % (37.0-47.0); Imm Gran Abs Auto 0.05 X10*3/uL (0.00-0.03); Imm Gran Pct Auto 0.5 % (0.0-0.4); Lymphocytes Absolute Auto 1.3 X10*3/uL (1.2-4.9); Lymphocytes Percent Auto 13.7 % (20-40); Mean Corpuscular HGB Conc 33.1 g/dl (31.0-35.0); Mean Corpuscular Hemoglobin 29.2 pg (27.0-33.0); Mean Corpuscular Volume 88.3 fL (80.0-98.0); Mean Platelet Volume 9.2 fL (9.4-12.3); Monocytes Absolute Auto 0.7 X10*3/uL (0.1-1.2); Monocytes Percent Auto 7.4 % (2-11); Neutrophils Absolute Auto 7.3 x10*3/uL (2.0-8.3); Platelet Count 248 X10*3/uL (160-400); Red Blood Count 4.11 X10*6/uL (4.20-5.50); Red Cell Distribution Width 13.1 % (11.0-16.0); White Blood Count 9.8 X10*3/uL (4.8-10.8)
[2023-11-28] MEDS: Midazolam HCl/PF 2 MG/2 ML VIAL IVPUSH (08:15)
--- NOTE | 2023-11-28 08:17 | PC.NURSE ---
patient a&ox3, iv inserted, labs drawn,exchange teller applied-nsr, ivf started per order, pt medicated per order, pt c/o nausea. lungs clear/diminished,pt c/o restless, legs, call mota within reach,will continue to monitor
--- NOTE | 2023-11-28 08:21 | PC.NURSE ---
after administration of medication, pts O2 sat went to 84%, pt placed on 4L NC will titrate off when able.
[2023-11-28 08:30] LABS: Alanine Aminotransferase 24 U/L (0-31); Albumin Level 3.8 g/dL (3.5-5.0); Alkaline Phosphatase 122 U/L (39-117); Anion Gap 15 (12-20); Aspartate Amino Transferase 36 U/L (5-31); Bilirubin Total 0.4 mg/dL (0.0-1.0); Blood Urea Nitrogen 23 mg/dL (9-16); Calcium 9.3 mg/dL (8.4-10.2); Carbon Dioxide 21 mmol/L (22-29); Chloride 103 mmol/L (96-108); Creatinine Clr Calc Pharmacy 54.6; Estimated Glomerular Filt Rate > 60; Glucose Random 133 mg/dL (60-115); Lipase 46 U/L (8-78); Potassium 3.6 mmol/L (3.3-5.1); Sodium 135 mmol/L (135-145); Total Protein 7.8 g/dL (6.5-8.0)
--- NOTE | 2023-11-28 08:49 | PC.NURSE ---
pt states that she feels dizzy and rolling sideways, pt positioning herself to the right, pt continues to be a&ox3, neuros intact, equal upper/lower extremity strength, smile symmetrical, will continue to monitor
[2023-11-28] MEDS: Meclizine HCl 25 MG TABLET PO (09:57)
--- NOTE | 2023-11-28 10:04 | PC.NURSE ---
called pharmacy for missing meds also placed mateo de [place] rosa
--- NOTE | 2023-11-28 10:26 | PC.NURSE ---
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
[2023-11-28] MEDS: rOPINIRole HCL 2 MG TABLET 3 MG PO (12:26)
--- NOTE | 2023-11-28 12:58 | PC.NURSE ---
RN at bedside to discharge patient. Patient unable to safety ambulate to the BR, pt unsteady on feet. Pt reports she currently lives alone, her recently fell and pt does not feel safe going home alone. MD Calixto made aware pt is unsafe to be discharged home at this time. Primary RN made aware.
--- NOTE | 2023-11-28 13:42 | PC.NURSE ---
pt was medicated by another nurse, iv removed and discharge papers were provided-[facility] van scheduled to bring patient home, upon getting the pt dressed and oob to wheelchair to hallway- pt began to get very dizzy again and vomiting, provider was notified, pt placed back into a bed and moved to room 6, new iv was obtained, pt placed back on monitoring and evaluation advisor.
[2023-11-28] MEDS: Metoclopramide HCl 10 MG/2 ML VIAL IVPUSH (14:32)
[2023-11-28] MEDS: diphenhydrAMINE HCL 50 MG/ML VIAL 12.5 MG IVPUSH (14:32)
--- NOTE | 2023-11-28 14:33 | PC.NURSE ---
pt medicated per order
--- NOTE | 2023-11-28 15:44 | PHA.MEDREC ---
Pharmacy Consult ? Medication Reconciliation Pharmacy has completed the medication reconciliation. Confirmed medications with patient and claim history. Patient does not remember if she took her medications yesterday and did not take them today. Hilary Jimenez CPhT
--- NOTE | 2023-11-28 16:04 | PC.NURSE ---
pt sleeping, woke to verbal stimulus, pt requesting pure wick to be put back as it was removed for discharge earlier, pure with placed, vss, warm blanket given, denies pain/discomfort, neuros intact, call mota within reach, will continue to monitor
[2023-11-28 17:33] LABS: Appearance Urine Clear; Color Urine Yellow; Glucose Urine UA Negative (Negative); Leukocyte Esterase Urine Small (1+) (Negative); Nitrite Urine Negative (Negative); PH 6.5 (5.0-9.0); UMIC TRIGGER UACC YES; Urine Blood Negative (Negative); Urine Ketones Negative (Negative); Urine Protein Negative (Neg-Trace)
[2023-11-28 17:41] LABS: Amphetamine Screen Urine Not Detected (Not Detect); Barbiturates, Urine Not Detected (Not Detect); Benzodiazepines Screen Urine POSITIVE (Not Detect); Cannabinoid Screen Urine Not Detected (Not Detect); Cocaine Screen Urine Not Detected (Not Detect); Fentanyl, urine Not Detected (Not Detect); Opiate Screen Urine Not Detected (Not Detect); Phencyclidine Screen Urine Not Detected (Not Detect)
[2023-11-28 17:50] LABS: Bacteria Urine None Seen (None Seen); Hyaline Casts Urine 0-2 /LPF (0-2); RBC Urine 0-2 /HPF (0-2); Squamous Epithelial Cell Urine 0-2 /HPF (0-2); UACC Culture Trigger YES; WBC Urine 0-5 /HPF (0-5)
--- NOTE | 2023-11-28 18:43 | PM.IMHP ---
History of Present Illness Date of Service: 11/28/23 Attending physician on admission: Annmarie Cuenca Chief Complaint: vertiago 83 y/o F with pmhx Meniere disease, TIA, HLP, hypertension,depression, anxiety, hypogammaglobulinemia, restless legs syndrome, GERD: Came to the hospital because of vertigo-she says that she had on and off episode of vertigo but this time is more worse with nausea vomiting unable to eat, she feels dizzy with standing up, she said she is tried her home meclizine did not help this time. In the background she says that she is having lot of stress at home(recently her fell down-end up in the rehab), in ED patient received diphenhydramine, midazolam, meclizine, Reglan-had some relief but still feeling significantly dizzy so unable to go home. ED physician recommended admission for persistent vertigo. Lab imaging reviewed: CBC, BMP seems fine, AST slightly elevated at [address]/CT head/brain wo IV con: No acute findings. Generalized atrophy and nonspecific periventricular white matter disease. Review of Systems Review of Systems: Yes all other systems are reviewed and are negative [facility] Medical History Meniere disease Transient ischemic attack (TIA) Osteoarthritis of shoulders, bilateral Rheumatoid arthritis Osteoarthritis of carpometacarpal (CMC) joint of right thumb Overweight (BMI 25.0-29.9) High cholesterol Hypertension Thrush, oral Nondisplaced fracture of fifth metatarsal bone, left foot, subsequent encounter for fracture with nonunion Seropositive rheumatoid arthritis Fracture of 5th metatarsal Fracture of fifth metatarsal bone of right foot Polymyalgia rheumatica Anxiety and depression Osteoarthritis Lumbar degenerative disc disease Osteoporosis Gout Restless leg syndrome Hypergammaglobulinemia GERD (gastroesophageal reflux disease) Seizure disorder Hypertension Hypercholesterolemia Asthma Peripheral neuropathy Rheumatoid arthritis Family History Father CVD (cardiovascular disease) Mother No problems noted. Surgical History Corneal transplant status History of arthroplasty of right hip History of total abdominal hysterectomy History of corneal transplant H/O left knee surgery History of open reduction and internal fixation (ORIF) procedure History of cholecystectomy History of appendectomy Social History Household Members: Spouse Household Members Other:: parter Housing: House Do you presently have visiting nurse or other home services: Yes ([facility]) Alcohol intake: current Alcohol intake frequency: holidays/special occasions only Alcohol type: wine Comment: patient uses call light appropriately Patient Tobacco Use Status: Never used Tobacco Smoked in Last 30 Days: No e-Cigarette/Vaping Use: Never Used Second Hand Smoke Exposure: No Use of substances other than those prescribed or required for medical reasons: No Advance Directives: Yes Advance Directives on File: Yes Advance Directives Date on File: 07/11/23 service: No Current occupational status: retired Cognitive needs: No Hearing needs: Yes Vision needs: Yes Meds Allergies Allergy/AdvReac Type Severity Reaction Status Date / Time alendronate sodium Allergy Severe ANAPHYLAXIS Verified 11/28/23 07:48 [From FOSAMAX] lisinopril [LISINOPRIL] Allergy Severe ANAPHYLAXIS, Verified 11/28/23 07:48 cough clarithromycin Allergy Intermediate CONFUSION, Verified 11/28/23 07:48 [CLARITHROMYCIN] sores on tongue, dry mouth simvastatin [SIMVASTATIN] Allergy Mild DRY Verified 11/28/23 07:48 THROAT, achy, confusion Active Medications: Current Medications Allopurinol (Allopurinol 100 Mg Tablet) 100 mg PO TID [facility] Aspirin (Aspirin Enteric Coated 81 Mg Tablet.Dr) 81 mg PO DAILY [facility] Atorvastatin Calcium (Atorvastatin Calcium 40 Mg Tablet) 40 mg PO DAILY [facility] Clopidogrel Bisulfate (Clopidogrel Bisulfate 75 Mg Tablet) 75 mg PO DAILY [facility] Clotrimazole (Clotrimazole 10 Mg Cassidy) 10 mg MUCOUS MEM TID PRN PRN Reason: fungal Folic Acid (Folic Acid 1 Mg Tablet) 1 mg PO DAILY [facility] Hydrochlorothiazide (Hydrochlorothiazide 25 Mg Tablet) 25 mg PO DAILY [facility]; Protocol Meclizine HCl (Meclizine Hcl 25 Mg Tablet) 25 mg PO TID PRN PRN Reason: Nausea Methotrexate (Methotrexate Sodium 2.5 Mg Tablet) 15 mg PO QWEEK [facility] Metoprolol Succinate (Metoprolol Succinate Er 25 Mg Tab.Er.24h) 25 mg PO DAILY [facility]; Protocol Montelukast Sodium (Montelukast Sodium 10 Mg Tablet) 10 mg PO BEDTIME [facility] Multivitamins/Vitamin C (Multivitamin Tablet) 1 tab PO DAILY [facility] Multivitamins/Vitamin C (Multivitamin Tablet) 1 tab PO DAILY [facility] Non-Formulary Medication (Calcium Carbonate-Vitamin D3) 1 tab PO DAILY [facility] Non-Formulary Medication (Carboxymethylcellulose Sodium [Artificial Tears (Cmc)]) 1 drop EYE-LEFT QID PRN PRN Reason: Dry Eyes Non-Formulary Medication (Denosumab [Prolia]) 60 mg SUBCUT [id number] [facility] Non-Formulary Medication (Meloxicam) 15 mg PO DAILY [facility] Non-Formulary Medication (Pantoprazole) 40 mg PO MOTUWETH@0630 [facility] Non-Formulary Medication (Ropinirole) 3 mg PO DAILY@1800 [facility] Ondansetron HCl (Ondansetron Hcl 4 Mg/2 Ml Vial) 4 mg IVPUSH Q6H PRN PRN Reason: nausea Prednisone (Prednisone 1 Mg Tablet) 2 mg PO DAILY [facility] Sodium Chloride (0.9 % Sodium Chloride Flush 3 Ml Syringe) 3 ml IVFLUSH QSHIFT [facility] Home Medications Medication Instructions Recorded Confirmed Last Taken Type multivitamin 1 tab PO DAILY 09/04/20 11/28/23 07/09/23 History vitamin B complex (B 1 tab PO DAILY 09/04/20 11/28/23 07/09/23 History Complex-Vitamin B12 tablet) calcium carbonate 600 mg-vitamin 1 tab PO DAILY 07/11/23 11/28/23 07/09/23 History D3 5 mcg (200 unit) tablet carboxymethylcellulose sodium 1 % 1 drp ophthalmic-Left QID PRN Dry 07/11/23 11/28/23 07/09/23 History eye drops (Artificial Tears Eyes (carboxymethylcellulose)) pantoprazole 40 mg tablet,delayed 40 mg PO MOTUWETH@0630 07/11/23 11/28/23 07/06/23 History release meclizine 25 mg tablet 25 mg PO TID PRN Nausea 09/06/23 11/28/23 Unknown History allopurinol 100 mg tablet 100 mg PO DAILY 11/28/23 11/28/23 Unknown History clotrimazole 10 mg cassidy 10 mg PO TID PRN fungal 11/28/23 11/28/23 Unknown History Physical Exam Vital Signs and Narrative: Vital Signs: Last Vital Signs Temp 98 F 11/28/23 17:17 Pulse 101 H 11/28/23 17:17 Resp 19 11/28/23 17:17 BP 159/67 H 11/28/23 17:17 Pulse Ox 94 11/28/23 17:17 O2 Del Method Room Air 11/28/23 17:17 O2 Flow Rate 4 11/28/23 08:46 BMI result Body Mass Index 27.6 Appearance: Alert.? Oriented X3.?? Eyes: Pupils equal, round and reactive to light.? has horizontal nystagmus. ENT: Pharynx normal.? Moist mucous membranes. cvs: rrr, [id number]. res: clear to auscultation ,no rhonchii or wheezing abd: no rebound or guarding ,nt, bs present. ext pulses present , no cyanosis . neuro: axo3 , moves all ext finger to nose test seems fine dtr2+ sensations intact. Results Labs 11/28/23 08:01 11/28/23 08:01 Labs: Laboratory Results - last 24 hr 11/28/23 11/28/23 08:01 17:23 MCV 88.3 MCH 29.2 MCHC 33.1 RDW 13.1 Plt Count 248 MPV 9.2 L Immature Gran % (Auto) 0.5 H Neut % (Auto) 75.0 H Lymph % (Auto) 13.7 L [place] % (Auto) 7.4 Eos % (Auto) 2.8 Baso % (Auto) 0.6 Lymph # (Auto) 1.3 [place] # (Auto) 0.7 Eos # (Auto) 0.3 Baso # (Auto) 0.1 Abs Immat Gran (auto) 0.05 H Absolute Neuts (auto) 7.3 Absolute Nucleated RBC 0.000 Nucleated RBC % (auto) 0.0 Anion Gap 15 Estim Creat Clear Calc 54.6 Estimated GFR > 60 Random Glucose 133 H Calcium 9.3 Total Bilirubin 0.4 AST 36 H ALT 24 Alkaline Phosphatase 122 H Total Protein 7.8 Albumin 3.8 Lipase 46 Urine Color Yellow Urine Appearance Clear Urine pH 6.5 Ur Specific [place] 1.010 Urine Protein Negative Urine Glucose (UA) Negative Urine Ketones Negative Urine Blood Negative Urine Nitrite Negative Ur Leukocyte Esterase Small (1+) H Urine RBC 0-2 Urine WBC 0-5 Ur Squamous Epith Cells 0-2 Urine Bacteria None Seen Hyaline Casts 0-2 Urine Opiates Screen Not Detected Urine Fentanyl Screen Not Detected Ur Barbiturates Screen Not Detected Ur Phencyclidine Scrn Not Detected Ur Amphetamines Screen Not Detected U Benzodiazepines Scrn POSITIVE H Urine Cocaine Screen Not Detected U Marijuana (THC) Screen Not Detected Imaging Radiologist's Impressions: Impressions Head CT 11/28/23 15:13 IMPRESSION: No acute findings. Generalized atrophy and nonspecific periventricular white matter disease. Assessment and Plan (1) Meniere disease: Status: Acute (2) Vomiting: Qualifiers: Nausea presence: with nausea Vomiting type: unspecified Qualified Code(s): R11.2 - Nausea with vomiting, unspecified Status: Acute Plan 83 y/o F with pmhx Meniere disease, TIA, HLP, hypertension,depression, anxiety, hypogammaglobulinemia, restless legs syndrome, GERD: Came to the hospital because of vertigo-she says that she had on and off episode of persistent vertigo persistent vertigo( has hx of minere dis) She also states that her legs are twitching uncontrollably and this is consistent with her restless leg syndrome. ct head nagative MRI Continue meclizine, and IV antiemetic, neuro checks, neuro evaluation HTN Continue Metoprolol and hydrochlorothiazide (once medical reconciliation done) RA resume methotrexate upon discharge(once medical reconciliation done:) history of gout continue allopurinol recent tia(07/29): Continue aspirin,plavix. DVT prophylaxis continue heparin Above management discussed with the patient in detail length she understand in agreement with above plan, time spent 70 minute. Quality Stroke Does the patient have a stroke diagnosis?: No VTE Prior VTE?: No VTE Risk Level:: Medical - moderate - high VTE Device Contraindication: N/A - Device Ordered VTE Drug Contraindication: N/A - Med Ordered
[2023-11-28] MEDS: rOPINIRole HCL 1 MG TABLET 3 MG PO (19:33)
[2023-11-28] MEDS: Montelukast Sodium 10 MG TABLET PO (23:18)
[2023-11-28] MEDS: 0.9 % Sodium Chloride Flush 3 ML SYRINGE IVFLUSH (23:19)
[2023-11-29] VITALS (7 sets, daily range): BP systolic 157–170; BP diastolic 42–74; PULSE 72–90; RESP 15–20; TEMP 36.7–37.2; O2SAT 93–97
[2023-11-29] MEDS: Acetaminophen 325 MG TABLET 975 MG PO ×2 (04:43→20:25)
[2023-11-29] MEDS: Omeprazole 20 MG CAPSULE.DR PO (04:44)
[2023-11-29] MEDS: Meclizine HCl 25 MG TABLET PO (04:45)
--- NOTE | 2023-11-29 08:44 | MHC.CM.PN ---
CM ATTEMPTED TO MEET W/PT HOWEVER PT JUST STARTED EATING BREAKFAST AND REQUESTS CM COME BACK LATER, CM TO REVISIT.
[2023-11-29] MEDS: Metoprolol Succinate ER 25 MG TAB.ER.24H PO (09:21)
[2023-11-29] MEDS: 0.9 % Sodium Chloride Flush 3 ML SYRINGE IVFLUSH ×3 (09:21→20:45)
[2023-11-29] MEDS: Clopidogrel Bisulfate 75 MG TABLET PO (09:22)
[2023-11-29] MEDS: Aspirin Enteric Coated 81 MG TABLET.DR PO (09:22)
[2023-11-29] MEDS: Calcium + Vitamin D 250 MG TABLET 500 MG PO (09:22)
[2023-11-29] MEDS: Folic Acid 1 MG TABLET PO (09:22)
[2023-11-29] MEDS: allopurinoL 100 MG TABLET PO (09:22)
[2023-11-29] MEDS: Atorvastatin Calcium 40 MG TABLET PO (09:22)
[2023-11-29] MEDS: predniSONE 1 MG TABLET 2 MG PO (09:23)
[2023-11-29] MEDS: Multivitamin TABLET 1 TAB PO (09:23)
[2023-11-29] MEDS: hydroCHLOROthiazide 25 MG TABLET PO (09:23)
--- NOTE | 2023-11-29 09:43 | MHC.CM.PN ---
EMR REVIEWED, PT ADMITTED TO OBS FOR VERTIGO, HURT[place] 11/29/23 DELIVERED TO BEDSIDE, PT REPORTS SHE IS FULLY INDEP, USES A CANE FOR OUTINGS AND DOES HAVE A WALKER AT HOME WELL, NO GRAB BARS IN BR HOWEVER PT CAN HOLD ON TO SINK/WINDOW SILL. P.T. PENDING AND ANTIC PT WILL NEED HOME PT, PT HAS NO PREFERENCE OF VNA'S. PT VERIFIES HCP ON FILE IS CORRECT, PCP IS [facility] AND PT IS FULLY VAXED AGAINST COVID19.
[2023-11-29] MEDS: rOPINIRole HCL 1 MG TABLET 3 MG PO ×2 (15:32→20:42)
--- NOTE | 2023-11-29 16:45 | P.PNIM_ITS ---
Subjective Subjective Date of Service: 11/29/23 Interval History: vertiago Review of Systems still feels dizzy with standing but somewhat improving Physical Exam 2 Vital Signs: Vital Signs: Last Vital Signs Temp 98.7 F 11/29/23 15:53 Pulse 79 11/29/23 15:53 Resp 16 11/29/23 15:53 BP 160/70 H 11/29/23 15:53 Pulse Ox 93 11/29/23 15:53 O2 Del Method Room Air 11/29/23 15:53 O2 Flow Rate 4 11/28/23 08:46 BMI result Body Mass Index 27.6 Appearance: awake ,alert plesant. Eyes: Pupils equal, round and reactive to light.? has horizontal nystagmus. cvs: rrr, [id number]. res: clear to auscultation ,no rhonchii or wheezing abd: no rebound or guarding ,nt, bs present. ext pulses present , no cyanosis . neuro: axo3 ,moves all ext Objective Data Active Medications Acetaminophen (Acetaminophen 325 Mg Tablet) 975 mg PO Q6H PRN PRN Reason: Headache Last Admin: 11/29/23 04:43 Dose: 975 mg Documented By: MARILYNN Allopurinol (Allopurinol 100 Mg Tablet) 100 mg PO DAILY [facility] Last Admin: 11/29/23 09:22 Dose: 100 mg Documented By: LEANNE Artificial Tears (Artificial Tears 15 Ml Drops) 1 drop EYE-LEFT QID PRN PRN Reason: Dry Eyes Aspirin (Aspirin Enteric Coated 81 Mg Tablet.) 81 mg PO DAILY [facility] Last Admin: 11/29/23 09:22 Dose: 81 mg Documented By: LEANNE Atorvastatin Calcium (Atorvastatin Calcium 40 Mg Tablet) 40 mg PO DAILY [facility] Last Admin: 11/29/23 09:22 Dose: 40 mg Documented By: LEANNE Calcium Carbonate/Cholecalciferol (Calcium + Vitamin D 250 Mg Tablet) 500 mg PO DAILY [facility] Last Admin: 11/29/23 09:22 Dose: 500 mg Documented By: LEANNE Clopidogrel Bisulfate (Clopidogrel Bisulfate 75 Mg Tablet) 75 mg PO DAILY [facility] Last Admin: 11/29/23 09:22 Dose: 75 mg Documented By: LEANNE Clotrimazole (Clotrimazole 10 Mg Cassidy) 10 mg MUCOUS MEM TID PRN PRN Reason: fungal Folic Acid (Folic Acid 1 Mg Tablet) 1 mg PO DAILY [facility] Last Admin: 11/29/23 09:22 Dose: 1 mg Documented By: LEANNE Hydrochlorothiazide (Hydrochlorothiazide 25 Mg Tablet) 25 mg PO DAILY [facility]; Protocol Last Admin: 11/29/23 09:23 Dose: 25 mg Documented By: LEANNE Meclizine HCl (Meclizine Hcl 25 Mg Tablet) 25 mg PO TID PRN PRN Reason: Nausea Last Admin: 11/29/23 04:45 Dose: 25 mg Documented By: MARILYNN Methotrexate (Methotrexate Sodium 2.5 Mg Tablet) 15 mg PO Sa@0900 [facility] Metoprolol Succinate (Metoprolol Succinate Er 25 Mg Tab.Er.24h) 25 mg PO DAILY [facility]; Protocol Last Admin: 11/29/23 09:21 Dose: 25 mg Documented By: LEANNE Montelukast Sodium (Montelukast Sodium 10 Mg Tablet) 10 mg PO BEDTIME [facility] Last Admin: 11/28/23 23:18 Dose: 10 mg Documented By: JAD Multivitamins/Vitamin C (Multivitamin Tablet) 1 tab PO DAILY [facility] Last Admin: 11/29/23 09:23 Dose: 1 tab Documented By: LEANNE Omeprazole (Omeprazole 20 Mg Capsule.Dr) 20 mg PO MOTUWETH@0630 [facility] Last Admin: 11/29/23 04:44 Dose: 20 mg Documented By: MARILYNN Ondansetron HCl (Ondansetron Hcl 4 Mg/2 Ml Vial) 4 mg IVPUSH Q6H PRN PRN Reason: nausea Prednisone (Prednisone 1 Mg Tablet) 2 mg PO DAILY [facility] Last Admin: 11/29/23 09:23 Dose: 2 mg Documented By: LEANNE Ropinirole HCl (Ropinirole Hcl 1 Mg Tablet) 3 mg PO DAILY@1800 [facility] Last Admin: 11/29/23 15:32 Dose: 3 mg Documented By: LEANNE Sodium Chloride (0.9 % Sodium Chloride Flush 3 Ml Syringe) 3 ml IVFLUSH QSHIFT [facility] Last Admin: 11/29/23 15:34 Dose: 3 ml Documented By: LEANNE Labs 11/28/23 08:11/28/23 08:01 Labs: Laboratory Results - last 24 hr 11/28/23 17:23 Urine Color Yellow Urine Appearance Clear Urine pH 6.5 Ur Specific [place] 1.010 Urine Protein Negative Urine Glucose (UA) Negative Urine Ketones Negative Urine Blood Negative Urine Nitrite Negative Ur Leukocyte Esterase Small (1+) H Urine RBC 0-2 Urine WBC 0-5 Ur Squamous Epith Cells 0-2 Urine Bacteria None Seen Hyaline Casts 0-2 Urine Opiates Screen Not Detected Urine Fentanyl Screen Not Detected Ur Barbiturates Screen Not Detected Ur Phencyclidine Scrn Not Detected Ur Amphetamines Screen Not Detected U Benzodiazepines Scrn POSITIVE H Urine Cocaine Screen Not Detected U Marijuana (THC) Screen Not Detected Microbiology Microbiology Results: Microbiology 11/28/23 18:13 Urine Culture - Preliminary Urine Catheterized - Vizcarra Catheter No growth to date. Assessment and Plan (1) Benign paroxysmal positional vertigo: Status: Acute Plan 83 y/o F with pmhx Meniere disease, TIA, HLP, hypertension,depression, anxiety, hypogammaglobulinemia, restless legs syndrome, GERD: Came to the hospital because of vertigo-she says that she had on and off episode of persistent vertigo persistent vertigo( has hx of minere dis) vs Small focus of susceptibility artifact with associated T2/FLAIR signal abnormality in the left parieto- occipital region vsmay represent an area of interval microhemorrhage, She also states that her legs are twitching uncontrollably and this is consistent with her restless leg syndrome. ct head nagative MRI-? small focus of haemorrage -added mri with conrast Neurochecks Continue meclizine, and IV antiemetic, neuro checks, neuro evaluation hold asa /plavix until neuro eval. HTN Continue Metoprolol and hydrochlorothiazide (once medical reconciliation done) RA resume methotrexate upon discharge(once medical reconciliation done:) history of gout continue allopurinol recent tia(07/29): Continue aspirin,plavix. DVT prophylaxis -hold heprin due to ? abnormal mri( small focus of brain haemorrage) ongoing inpatient need:persistent vertigo and may represent an area of interval microhemorrhage- need moniterin neurochecks an neuro eval Quality Stroke Does the patient have a stroke diagnosis?: No VTE Prior VTE?: No VTE Risk Level:: Medical - moderate - high VTE Device Contraindication: N/A - Device Ordered VTE Drug Contraindication: N/A - Med Ordered
--- NOTE | 2023-11-29 18:09 | PM.NEUROCN ---
History of Present Illness Data of Consult Service Date: 11/29/23 Primary Care Provider: Renetta Vides MD [facility] Reason for consult: Vertigo This is a 83 y/o Female with Meniere's disease, TIA, HLP, hypertension,depression, anxiety, hypogammaglobulinemia, restless legs syndrome, GERD, who came to the hospital because of vertigo. She says that she had on and off episodes of vertigo, but this time is worse with nausea, vomiting, unable to eat, she feels dizzy with standing up, she said she is tried her home meclizine did not help this time. CT A in Jul was normal. MRI brain on this occasion shows no acute stroke. Microvacsular white matter changes in both ehemispheres. She is under a lot of stress at home(recently her fell down-end up in the rehab), in ED patient received diphenhydramine, midazolam, meclizine, Reglan-had some relief but still feeling significantly dizzy so unable to go home.Her symptoms are subsiding but still gets some vertigo and quick head movements. She needs some assistance to get to the bathroom. He episodes of vertigo which startedd about 2 years ago and usually last from a few hours to 3 weeks. She generally takes meclizine 25 mg 3 ttimes a day at home. 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 [facility] Past Medical History Medical History Meniere disease Transient ischemic attack (TIA) Osteoarthritis of shoulders, bilateral Rheumatoid arthritis Osteoarthritis of carpometacarpal (CMC) joint of right thumb Overweight (BMI 25.0-29.9) High cholesterol Hypertension Thrush, oral Nondisplaced fracture of fifth metatarsal bone, left foot, subsequent encounter for fracture with nonunion Seropositive rheumatoid arthritis Fracture of 5th metatarsal Fracture of fifth metatarsal bone of right foot Polymyalgia rheumatica Anxiety and depression Osteoarthritis Lumbar degenerative disc disease Osteoporosis Gout Restless leg syndrome Hypergammaglobulinemia GERD (gastroesophageal reflux disease) Seizure disorder Hypertension Hypercholesterolemia Asthma Peripheral neuropathy Rheumatoid arthritis Family History Family History Father CVD (cardiovascular disease) Mother No problems noted. Surgical History Surgical History Corneal transplant status History of arthroplasty of right hip History of total abdominal hysterectomy History of corneal transplant H/O left knee surgery History of open reduction and internal fixation (ORIF) procedure History of cholecystectomy History of appendectomy Social History Social History Household Members: Significant Other Household Members Other:: parter Housing: House Do you presently have visiting nurse or other home services: No Alcohol intake: current Alcohol intake frequency: holidays/special occasions only Alcohol type: wine Comment: patient uses call light appropriately Patient Tobacco Use Status: Never used Tobacco e-Cigarette/Vaping Use: Never Used Second Hand Smoke Exposure: No Advance Directives Date on File: 07/11/23 service: No Current occupational status: retired Cognitive needs: No Hearing needs: Yes Vision needs: Yes Meds Allergies Allergy/AdvReac Type Severity Reaction Status Date / Time alendronate sodium Allergy Severe ANAPHYLAXIS Verified 11/28/23 07:48 [From FOSAMAX] lisinopril [LISINOPRIL] Allergy Severe ANAPHYLAXIS, Verified 11/28/23 07:48 cough clarithromycin Allergy Intermediate CONFUSION, Verified 11/28/23 07:48 [CLARITHROMYCIN] sores on tongue, dry mouth simvastatin [SIMVASTATIN] Allergy Mild DRY Verified 11/28/23 07:48 THROAT, achy, confusion Active Medications: Current Medications Acetaminophen (Acetaminophen 325 Mg Tablet) 975 mg PO Q6H PRN PRN Reason: Headache Last Admin: 11/29/23 04:43 Dose: 975 mg Allopurinol (Allopurinol 100 Mg Tablet) 100 mg PO DAILY [facility] Last Admin: 11/29/23 09:22 Dose: 100 mg Artificial Tears (Artificial Tears 15 Ml Drops) 1 drop EYE-LEFT QID PRN PRN Reason: Dry Eyes Aspirin (Aspirin Enteric Coated 81 Mg Tablet.Dr) 81 mg PO DAILY [facility] Last Admin: 11/29/23 09:22 Dose: 81 mg Atorvastatin Calcium (Atorvastatin Calcium 40 Mg Tablet) 40 mg PO DAILY [facility] Last Admin: 11/29/23 09:22 Dose: 40 mg Calcium Carbonate/Cholecalciferol (Calcium + Vitamin D 250 Mg Tablet) 500 mg PO DAILY [facility] Last Admin: 11/29/23 09:22 Dose: 500 mg Clopidogrel Bisulfate (Clopidogrel Bisulfate 75 Mg Tablet) 75 mg PO DAILY [facility] Last Admin: 11/29/23 09:22 Dose: 75 mg Clotrimazole (Clotrimazole 10 Mg Abby) 10 mg MUCOUS MEM TID PRN PRN Reason: fungal Folic Acid (Folic Acid 1 Mg Tablet) 1 mg PO DAILY [facility] Last Admin: 11/29/23 09:22 Dose: 1 mg Hydrochlorothiazide (Hydrochlorothiazide 25 Mg Tablet) 25 mg PO DAILY [facility]; Protocol Last Admin: 11/29/23 09:23 Dose: 25 mg Meclizine HCl (Meclizine Hcl 25 Mg Tablet) 25 mg PO TID PRN PRN Reason: Nausea Last Admin: 11/29/23 04:45 Dose: 25 mg Methotrexate (Methotrexate Sodium 2.5 Mg Tablet) 15 mg PO Sa@0900 [facility] Metoprolol Succinate (Metoprolol Succinate Er 25 Mg Tab.Er.24h) 25 mg PO DAILY [facility]; Protocol Last Admin: 11/29/23 09:21 Dose: 25 mg Montelukast Sodium (Montelukast Sodium 10 Mg Tablet) 10 mg PO BEDTIME [facility] Last Admin: 11/28/23 23:18 Dose: 10 mg Multivitamins/Vitamin C (Multivitamin Tablet) 1 tab PO DAILY [facility] Last Admin: 11/29/23 09:23 Dose: 1 tab Omeprazole (Omeprazole 20 Mg Capsule.Dr) 20 mg PO MOTUWETH@0630 [facility] Last Admin: 11/29/23 04:44 Dose: 20 mg Ondansetron HCl (Ondansetron Hcl 4 Mg/2 Ml Vial) 4 mg IVPUSH Q6H PRN PRN Reason: nausea Prednisone (Prednisone 1 Mg Tablet) 2 mg PO DAILY [facility] Last Admin: 11/29/23 09:23 Dose: 2 mg Ropinirole HCl (Ropinirole Hcl 1 Mg Tablet) 3 mg PO DAILY@1800 [facility] Last Admin: 11/29/23 15:32 Dose: 3 mg Sodium Chloride (0.9 % Sodium Chloride Flush 3 Ml Syringe) 3 ml IVFLUSH QSHIFT [facility] Last Admin: 11/29/23 15:34 Dose: 3 ml Home Medications Medication Instructions Recorded Confirmed Last Taken Type multivitamin 1 tab PO DAILY 09/04/20 11/28/23 07/09/23 History vitamin B complex (B 1 tab PO DAILY 09/04/20 11/28/23 07/09/23 History Complex-Vitamin B12 tablet) calcium carbonate 600 mg-vitamin 1 tab PO DAILY 07/11/23 11/28/23 07/09/23 History D3 5 mcg (200 unit) tablet carboxymethylcellulose sodium 1 % 1 drp ophthalmic-Left QID PRN Dry 07/11/23 11/28/23 07/09/23 History eye drops (Artificial Tears Eyes (carboxymethylcellulose)) pantoprazole 40 mg tablet,delayed 40 mg PO MOTUWETH@0630 07/11/23 11/28/23 07/06/23 History release meclizine 25 mg tablet 25 mg PO TID PRN Nausea 09/06/23 11/28/23 Unknown History allopurinol 100 mg tablet 100 mg PO DAILY 11/28/23 11/28/23 Unknown History clotrimazole 10 mg abby 10 mg PO TID PRN fungal 11/28/23 11/28/23 Unknown History Physical Exam Vital Signs: Vital Signs: Last Vital Signs Temp 98.7 F 11/29/23 15:53 Pulse 79 11/29/23 15:53 Resp 16 11/29/23 15:53 BP 160/70 H 11/29/23 15:53 Pulse Ox 93 11/29/23 15:53 O2 Del Method Room Air 11/29/23 15:53 O2 Flow Rate 4 11/28/23 08:46 BMI result Body Mass Index 27.6 Neuro: Other: Normal neurological examination with no nystagmus. Decreased hearing in both eaars. Gait was not tested Results Labs 11/28/23 08:01 11/28/23 08:01 Microbiology Microbiology Results: Microbiology 11/28/23 18:13 Urine Catheterized - Vizcarra Catheter Urine Culture - Preliminary No growth to date. Assessment and Plan (1) Meniere disease: Status: Acute Symptoms consistent with M?ni?re's disease with recurrent episodes of vertigo in the last 2 years, tinnitus in both ears and hearing loss in the right. MRI does not show any acute findings. There is microvascular disease in the white matter. Recommendations: increase meclizine to 25 mg 4 times a day. Add hydrochlorothiazide 12.5 mg every morning. Procedures Date of Service Date of Service: 11/29/23
[2023-11-29] MEDS: gadobutroL 10 ML VIAL IVPUSH (19:38)
[2023-11-29] MEDS: Montelukast Sodium 10 MG TABLET PO (20:25)
[2023-11-30] VITALS: BP 180/82; PULSE 78; RESP 20; TEMP 36.1; O2SAT 95
[2023-11-30] MEDS: amLODIPine Besylate 5 MG TABLET PO (00:51)
[2023-11-30] MEDS: ondansetron HCL 4 MG/2 ML VIAL IVPUSH (02:28)
[2023-11-30 03:32] VITALS: BP 132/62; PULSE 72; RESP 20; TEMP 36.1; O2SAT 95
[2023-11-30] MEDS: Omeprazole 20 MG CAPSULE.DR PO (06:14)
[2023-11-30] MEDS: Milk of Magnesia 30 ML ORAL.SUSP PO (06:14)
[2023-11-30 07:47] VITALS: BP 154/70; PULSE 94; RESP 16; TEMP 36.6; O2SAT 94
[2023-11-30 09:16] VITALS: BP 154/70; PULSE 94; O2SAT 94
[2023-11-30] MEDS: Atorvastatin Calcium 40 MG TABLET PO (10:36)
[2023-11-30] MEDS: bisacodyL 5 MG TABLET.DR PO (10:36)
[2023-11-30] MEDS: Meclizine HCl 25 MG TABLET PO (10:36)
[2023-11-30] MEDS: Folic Acid 1 MG TABLET PO (10:36)
[2023-11-30] MEDS: Metoprolol Succinate ER 25 MG TAB.ER.24H PO (10:36)
[2023-11-30] MEDS: Multivitamin TABLET 1 TAB PO (10:36)
[2023-11-30] MEDS: predniSONE 1 MG TABLET 2 MG PO (10:36)
[2023-11-30] MEDS: allopurinoL 100 MG TABLET PO (10:36)
[2023-11-30] MEDS: Calcium + Vitamin D 250 MG TABLET 500 MG PO (10:36)
[2023-11-30] MEDS: 0.9 % Sodium Chloride Flush 3 ML SYRINGE IVFLUSH (10:37)
--- NOTE | 2023-11-30 12:27 | MHC.CM.PN ---
PT MEDICALLY CLEARED FOR DC TO [facility], [facility] FOR BLS TRANSPORTAT 4PM
[2023-11-30 13:00] VITALS: BP 125/79; PULSE 76; RESP 20; TEMP 37.1; O2SAT 94
--- NOTE | 2023-11-30 13:15 | P.DS_ITS ---
DS: Providers Provider Date of Service: 11/30/23 Date of admission: 11/28/23 18:37 Date of discharge: 11/30/23 Primary care physician: Renetta Vides MD Consults: 11/28/23 18:37 Consult to Neurology Routine Consulting Provider: [facility] Reason for consultation: vertiago Has provider been notified: No Attending physician on discharge: Annmarie Cuenca Discharging clinician: Annmarie Cuenca DS: Diagnosis Discharge Diagnosis (1) Meniere disease: Status: Acute DS: Summary Hospital Course Hospital Course: 83 y/o F with pmhx Meniere disease, TIA, HLP, hypertension,depression, anxiety, hypogammaglobulinemia, restless legs syndrome, GERD: Came to the hospital because of vertigo-she says that she had on and off episode of vertigo but this time is more worse with nausea vomiting unable to eat, she feels dizzy with standing up, she said she is tried her home meclizine did not help this time. In the background she says that she is having lot of stress at home(recently her fell down-end up in the rehab), in ED patient received diphenhydramine, midazolam, meclizine, Reglan-had some relief but still feeling significantly dizzy so unable to go home. ED physician recommended admission for persistent vertigo. Lab imaging reviewed: CBC, BMP seems fine, AST slightly elevated at [address]/CT head/brain wo IV con: No acute findings. Generalized atrophy and nonspecific periventricular white matter disease. Hospital course: Patient came with symptoms of dizziness,, vertigo: Patient has background history of Meniere disease she says that she has on and off these symptoms: Patient was meclizine adjusted to 25 mg 4 times a day, continue her home dose of hydrochlorothiazide, patient CT scan, MRI with and without contrast is done reviewed by Neurology also: Possible mild calcification area, otherwise no acute findings, less likely any bleeding: With above supportive care Patient seems to be improving significantly. Neurology recommended to continue aspirin Plavix also. Patient is currently saying that dizziness improved significantly, no headache or any new neurological symptoms. Above management discussed with the patient in detail length she understand and in agreement with the above plan, time spent 50 minute. Time Attestation Discharge coordination time: Greater than 30 minutes Quality: Safe Use of Opioids Does Pt have an Active Cancer Diagnosis on the Problem List?: No Quality: Stroke Does the patient have a stroke diagnosis?: No Physical Exam Vital Signs: Vital Signs: Last Vital Signs Temp 98.7 F 11/30/23 13:00 Pulse 76 11/30/23 13:00 Resp 20 11/30/23 13:00 BP 125/79 11/30/23 13:00 Pulse Ox 94 11/30/23 13:00 O2 Del Method Room Air 11/30/23 13:00 O2 Flow Rate 4 11/28/23 08:46 BMI result Body Mass Index 27.6 Appearance: Alert.? Oriented X3.? cvs: rrr, [id number]. res: clear to auscultation ,no rhonchii or wheezing abd: no rebound or guarding ,nt, bs present. ext pulses present , no cyanosis . neuro: axo3 , nonfocal. DS: Data Imaging Chest x-ray: Radiologist's impression: ITS Impressions Head CT 11/28/23 15:13 IMPRESSION: No acute findings. Generalized atrophy and nonspecific periventricular white matter disease. Brain MRI 11/28/23 21:28 IMPRESSION: No restricted diffusion to suggest acute infarction. Small focus of susceptibility artifact with associated T2/FLAIR signal abnormality in the left parieto-occipital region was not definitively present on the prior examination of 07/11/2023. This may represent an area of interval microhemorrhage, but correlation with contrast-enhanced examination is recommended for further characterization/to exclude an underlying enhancing lesion. Brain MRI 11/29/23 19:30 IMPRESSION: No abnormal enhancement associated with the small focus of susceptibility artifact in the left parieto-occipital region. Finding likely represents an area of interval microhemorrhage. Discharge Plan Discharge Anticipated Discharge Date/Time: 11/30/23 13:04 Patient Disposition: Xfer SNF Discharge Diagnosis: dizziness /vertiago Referrals: [facility] [Other] - 1 Day (ACUTE REHAB ) PoRenetta MD [Primary Care Provider] - 1 Week Discharge Medications: New bisacodyl 5 mg Tablet,Delayed Release (Dr/Ec) 5 mg PO DAILY Qty: 1 0RF lactulose 20 gram/30 mL Solution 20 g PO QID PRN (Reason: constipation) Qty: 1 0RF Continued hydrochlorothiazide 25 mg tablet 25 mg PO DAILY Qty: 90 3RF montelukast 10 mg tablet 10 mg PO BEDTIME Qty: 90 2RF meloxicam 15 mg tablet 15 mg PO DAILY Qty: 90 3RF Prolia 60 mg/mL syringe 60 mg subcut [id number] Qty: 1 1RF tramadol 50 mg tablet 50 mg PO BID PRN (Reason: pain) Qty: 60 1RF prednisone 1 mg tablet 2 mg PO DAILY Qty: 60 3RF ropinirole 3 mg tablet 3 mg PO DAILY@1800 Qty: 90 2RF methotrexate sodium 2.5 mg tablet 15 mg PO QWEEK Qty: 72 0RF metoprolol succinate 25 mg tablet extended release 24 hr 25 mg PO DAILY Qty: 90 3RF folic acid 1 mg tablet 1 mg PO DAILY Qty: 90 2RF calcium carbonate-vitamin D3 600 mg-5 mcg (200 unit) Tablet 1 tab PO DAILY pantoprazole 40 mg tablet,delayed release (DR/EC) 40 mg PO MOTUWETH@0630 Rx Instructions: Take every day except when taking methotrexate Artificial Tears (cmc) 1 % Drops 1 drp OPHTHALMIC-LEFT QID PRN (Reason: Dry Eyes) clotrimazole 10 mg abby 10 mg PO TID PRN (Reason: fungal) allopurinol 100 mg tablet 100 mg PO DAILY multivitamin Tablet 1 tab PO DAILY vitamin B complex [B Complex-Vitamin B12] Tablet 1 tab PO DAILY meclizine 25 mg tablet 25 mg PO TID PRN (Reason: Nausea) aspirin 81 mg tablet,delayed release (DR/EC) 81 mg PO DAILY Qty: 90 3RF clopidogrel [Plavix] 75 mg tablet 75 mg PO DAILY Qty: 90 3RF atorvastatin 40 mg tablet 40 mg PO DAILY Qty: 30 3RF (DME) CMF Bone Stimulator See Rx Instructions .Route .MEDSUPPLY Qty: 1 0RF Rx Instructions: As directed Discharge Orders: Discharge Order (Routine); Ordered 11/30/23 Ordered By: Annmarie Cuenca Diet: Advance to usual diet Activity on Discharge: As tolerated Stand Alone Forms: Patient Portal Discharge page Care Plan Goals: Patient came with symptoms of dizziness,, vertigo: Patient has background history of Meniere disease she says that she has on and off these symptoms: Patient was meclizine adjusted to 25 mg 4 times a day, continue her home dose of hydrochlorothiazide, patient CT scan, MRI with and without contrast is done reviewed by Neurology also: Possible mild calcification area, otherwise no acute findings, less likely any bleeding: With above supportive care Patient seems to be improving significantly. Neurology recommended to continue aspirin Plavix also. Patient is currently saying that dizziness improved significantly, no headache or any new neurological symptoms. Above management discussed with the patient in detail length she understand and in agreement with the above plan, time spent 50 minute. Health Concerns: As above. Plan of Treatment: As above. Assessment: As above. Patient Instructions: Vertigo (ED)
[2023-11-30 15:59] VITALS: BP 143/64; PULSE 78; RESP 16; TEMP 37.1; O2SAT 94
[2023-11-30] MEDS: Acetaminophen 325 MG TABLET 975 MG PO (16:43)
== END 2023-11-30 16:48 | disposition skilled nursing facility (03) ==
LOC: HO.ED 14:14 → HO.EDOVER 18:47 → HO.IMC 19:36
PROVIDERS: Admitting Provider Internal Medicine; Emergency Provider Emergency Medicine Emergency Medical Services; PCP Internal Medicine; Visit Provider Internal Medicine
DX: H81.09 Meniere's disease, unspecified ear (principal); I10 Essential (primary) hypertension; M06.9 Rheumatoid arthritis, unspecified; R11.2 Nausea with vomiting, unspecified; D80.1 Nonfamilial hypogammaglobulinemia; G40.909 Epilepsy, unspecified, not intractable, without status epilepticus; M10.9 Gout, unspecified; Z79.899 Other long term (current) drug therapy; Z86.73 Personal history of transient ischemic attack (TIA), and cerebral infarction without residual deficits
CPT/HCPCS: 36415; 70450; 70551; 70552; 80053; 80307; 81001; 83690; 85025; 87086; 96361; 96374; 96375; 96376; 97116; 97162; 97166; 97535; 99222; 99285; A9585; J1200; J2250; J2405; J2765

== ENCOUNTER → 2023-11-28 18:37 | Outpatient (BNV) | payer MEDICARE, OTHER, SELFPAY | PROVIDERS: Admitting Provider Internal Medicine; Emergency Provider Emergency Medicine Emergency Medical Services; PCP Internal Medicine; Visit Provider Psychiatry & Neurology Neurology | DX: H81.09 Meniere's disease, unspecified ear (principal) | CPT/HCPCS: 99222 ==

== ENCOUNTER → 2023-11-28 18:37 | Outpatient (BNV) | payer MEDICARE, OTHER, SELFPAY | PROVIDERS: Admitting Provider Internal Medicine; Emergency Provider Emergency Medicine Emergency Medical Services; Visit Provider Internal Medicine | DX: H81.09 Meniere's disease, unspecified ear (principal) | CPT/HCPCS: 99222; 99232; 99239 ==

== ENCOUNTER 2023-12-20 11:05 | Outpatient (AMB) | payer MEDICARE, OTHER, SELFPAY ==
--- NOTE | 2023-12-20 11:09 | MHC.PC.OV ---
Vital Signs 12/20/23 11:14 Height 5 ft 7 in Weight 175 lb 2 oz BMI 27.4 BP 116/64 Blood Pressure Location Lt brachial Position Sitting Pulse 82 Pulse Source Pulse Oximeter Pulse Oximetry (%) 97 Oxygen Delivery Method Room Air [facility] Patient is here for hospital discharge follow up. Patient was discharged from [facility] on 12/11/23. Also, to sign the [facility] disabled Parking Placard/Plate. Electrical Tech Required: No Accompanied by: Self / Same As Patient Allergies alendronate sodium [From FOSAMAX] Allergy (Severe, Verified 12/20/23 11:35) ANAPHYLAXIS lisinopril [LISINOPRIL] Allergy (Severe, Verified 12/20/23 11:35) ANAPHYLAXIS, cough clarithromycin [CLARITHROMYCIN] Allergy (Intermediate, Verified 12/20/23 11:35) CONFUSION, sores on tongue, dry mouth simvastatin [SIMVASTATIN] Allergy (Mild, Verified 12/20/23 11:35) DRY THROAT, achy, confusion Medication List - Last Reconciled 12/20/23 by Jacob Vargas PA-C acetaminophen 325 mg PO Q6H allopurinol 100 mg PO DAILY aspirin 81 mg PO DAILY atorvastatin 40 mg PO DAILY bisacodyl 5 mg PO DAILY calcium carbonate-vitamin D3 600 mg-5 mcg (200 unit) 1 tab PO DAILY carboxymethylcellulose sodium 1% (Artificial Tears (carboxymethylcellulose)) 1 drp ophthalmic-Left QID PRN clopidogrel (Plavix) 75 mg PO DAILY clotrimazole 10 mg PO TID PRN [CMF Bone Stimulator As directed] denosumab (Prolia) 60 mg subcut [id number] folic acid 1 mg PO DAILY lactulose 20 grams (30 mL) PO QID PRN meclizine 25 mg PO TID PRN meloxicam 15 mg PO DAILY methotrexate sodium 15 mg (6 x 2.5 mg) PO QWEEK metoprolol succinate ER 25 mg PO DAILY montelukast 10 mg PO BEDTIME multivitamin 1 tab PO DAILY prednisone 2 mg (2 x 1 mg) PO DAILY ropinirole 3 mg PO DAILY@1800 tramadol 50 mg PO BID PRN vitamin B complex (B Complex-Vitamin B12 tablet) 1 tab PO DAILY Tobacco use date assessed: 12/20/23 HPI [facility] Details Patient is an 83-year-old female here today for short-term rehab discharge. She was seen at the [facility] for acute dizziness and on and off nausea with vomiting and inability eat. She was treated with Benadryl, midazolam and meclizine and Reglan with relief her symptoms. Did have an MRI done of her brain though no acute intracranial pathology found. While in short-term rehab she participated in PT and OT with good response. While in rehab her hydrochlorothiazide was discontinued due to hyponatremia. Blood pressure today in office acceptable. She is interested in getting all ever medications in bubble packs/. [facility] Medical History Meniere disease Transient ischemic attack (TIA) Osteoarthritis of shoulders, bilateral Rheumatoid arthritis Osteoarthritis of carpometacarpal (CMC) joint of right thumb Overweight (BMI 25.0-29.9) High cholesterol Hypertension Thrush, oral Nondisplaced fracture of fifth metatarsal bone, left foot, subsequent encounter for fracture with nonunion Seropositive rheumatoid arthritis Fracture of 5th metatarsal Fracture of fifth metatarsal bone of right foot Polymyalgia rheumatica Anxiety and depression Osteoarthritis Lumbar degenerative disc disease Osteoporosis Gout Restless leg syndrome Hypergammaglobulinemia GERD (gastroesophageal reflux disease) Seizure disorder Hypertension Hypercholesterolemia Asthma Peripheral neuropathy Rheumatoid arthritis Surgical History Corneal transplant status History of arthroplasty of right hip History of total abdominal hysterectomy History of corneal transplant H/O left knee surgery History of open reduction and internal fixation (ORIF) procedure History of cholecystectomy History of appendectomy Family History Father CVD (cardiovascular disease) Mother No problems noted. Social History Household Members: Significant Other Household Members Other:: parter Housing: House Do you presently have visiting nurse or other home services: No Alcohol intake: current Alcohol intake frequency: holidays/special occasions only Alcohol type: wine Comment: patient uses call light appropriately Patient Tobacco Use Status: Never used Tobacco e-Cigarette/Vaping Use: Never Used Second Hand Smoke Exposure: No Advance Directives Date on File: 07/11/23 service: No Current occupational status: retired Cognitive needs: No Hearing needs: Yes Vision needs: Yes Questionnaire PHQ-9 Over the last 2 weeks, how often have you been bothered by any of the following problems? 1. Little interest or pleasure in doing things: not at all 2. Feeling down, depressed, or hopeless: not at all 3. Trouble falling or staying asleep, or sleeping too much: not at all 4. Feeling tired or having little energy: not at all 5. Poor appetite or overeating: not at all 6. Feeling bad about yourself - or that you are a failure or have let yourself or your family down: not at all 7. Trouble concentrating on things, such as reading the newspaper or watching television: not at all 8. Moving or speaking so slowly that other people could have noticed. Or the opposite - being so fidgety or restless that you have been moving around a lot more than usual: not at all 9. Thoughts that you would be better off or of hurting yourself in some way: not at all Total score: 0 Depression Screening Interpretation: Negative Depression Screening Done: Yes 66024 - PHQ-9 Billing: Yes Source: Developed by Drs. Montana Salmon, Annalise Muse, Chris Montana and colleagues, with an educational shiela from [employer]. Thrive Questionnaire Date Thrive assessed: 11/29/23 AUDIT C Alcohol Use Questionnaire (AUDIT-C) 1. How often do you have a drink containing alcohol?: Monthly or less 2. How many drinks containing alcohol do you have on a typical day when you are drinking?: 1 or 2 (Beer or Wine) 3. How often do you have six or more drinks on one occasion?: Never Total Score: 1 LIYA-7 AMB Questionnaire LIYA-7 Date LIYA - 7 assessed: 12/20/23 Feeling nervous, anxious, or on edge: 0 = Not at all Not being able to stop or control worryin = Not at all Worrying too much about different things: 0 = Not at all Trouble relaxin = Not at all Being so restless that it is hard to sit still: 0 = Not at all Becoming easily annoyed or irritable: 0 = Not at all Feeling afraid as if something awful might happen: 0 = Not at all Total LIYA-7 score (0-4 normal; 5-9 mild; 10-14 moderate; 15-21 severe): 0 Source: Developed by Drs. Montana Salmon, Annalise Muse, Chris Montana and colleagues, with an educational shiela from [employer]. LIYA-7 Assessment Billing LIYA-7 Assessment Tool: LIYA-7 Assessment 36425 Review of Systems Const Denies headache(s) Eyes Denies loss of vision ENT Denies vertigo, Reports dizziness, Denies headache(s) and Denies sore throat Card Denies chest pain, Denies leg edema and Denies lightheadedness Resp Denies cough, Denies hemoptysis and Denies wheezing GI Denies abdominal pain, Denies melena, Denies constipation, Denies diarrhea and Denies vomiting Denies urinary frequency, Denies dysuria and Denies urinary urgency Musc Denies arthralgias, Denies joint swelling, Denies numbness and Denies tingling Neuro Denies Abnormal speech present, Denies behavioral changes, Denies vertigo, Reports dizziness, Denies headache(s), Denies loss of vision, Denies memory loss, Denies numbness and Denies tingling Psych Denies anxiety, Denies behavioral changes, Denies depression, Denies memory loss and Denies panic attacks Inderjit/Lymph Denies easy bleeding and Denies easy bruising Aller/Immun Denies wheezing Physical exam (Primary Care) Vital Signs: Last Vital Signs Pulse 82 12/20/23 11:14 BP 116/64 12/20/23 11:14 Pulse Ox 97 12/20/23 11:14 Oxygen Delivery Method Room Air 12/20/23 11:14 BMI result Body Mass Index 27.4 Tobacco/Smoking Status: Tobacco use Status Tobacco use date assessed 12/20/23 12/20/23 11:28 Patient Tobacco Use Status Never used Tobacco 12/20/23 11:09 e-Cigarette/Vaping Use Never Used 12/20/23 11:09 PHQ-9: PHQ-9 Score PHQ-9: Total score 0 12/20/23 11:28 Depression Screening Interpretation: Negative Thrive Assessment: Date of Thrive Assessment Date Thrive assessed 11/29/23 12/20/23 11:09 Const General: healthy appearing, no acute distress, alert and awake Nutritional Appearance: well nourished Orientation/consciousness: oriented to person, oriented to place and oriented to time HENMT Ears: TM's normal bilaterally General nose exam: Normal nasal mucous membranes and turbinates present Eyes Conjunctivae: conjunctivae normal Sclerae: sclerae normal Pupils: Equal, round and reactive pupils present Neck Neck: Yes no lymphadenopathy and Yes no JVD Thyroid: Thyroid normal Carotids: no bruits Resp Effort & Inspection: normal respiratory effort and not tachypneic Auscultation: no crackles, no rales, no rhonchi and no wheezes Cardio Rate: regular rate Rhythm: regular rhythm Heart sounds: no murmurs and normal S1 and S2 GI Palpation (GI): Soft to palpation, nontender, no hepatomegaly and no splenomegaly Auscultation: normal bowel sounds Skin General skin exam: no rashes or lesions noted and dry skin Neuro General: oriented to person, oriented to place and oriented to time Cranial nerves: Yes Equal, round and reactive pupils present Speech: No Abnormal speech present Gait exam (Neuro): Normal gait present Motor exam (neuro): no tremor noted Extrem Right upper extremity: full ROM Left upper extremity: full ROM Right lower extremity: full ROM; no edema Left lower extremity: full ROM; no edema Psych Mental Status: mental status grossly normal Speech and movement: Normal speech and movement present Affect: normal affect Attitude: cooperative Thought process: Normal thought process present Assessment and Plan Assessment & Plan (1) Meniere disease: Comment: Dx December [address] Brunson. Code(s): H81.09 - Meniere's disease, unspecified ear Qualifiers: Laterality: bilateral Qualified Code(s): H81.03 - Meniere's disease, bilateral Plan: As per HPI patient experienced unbearable dizziness requiring hospitalization and short-term rehab. Now doing much better and taking meclizine 3 times a day. (2) Constipation: Code(s): K59.00 - Constipation, unspecified Qualifiers: Constipation type: slow transit constipation Qualified Code(s): K59.01 - Slow transit constipation Plan: Has been experiencing constipation over the last few months. Has started milk of magnesia which has been effective. She will continue on this and try to increase fluid and fiber in her diet Coding Level of Care Code Est Pt Level 3 (23789) Diagnoses Meniere's disease of both ears H81.03 Laterality: bilateral Slow transit constipation K59.01 Constipation type: slow transit constipation Additional Codes LIYA-7 Assessment Billing - LIYA-7 Assessment Tool: LIYA-7 Assessment 39441 ([id number])
[2023-12-20 11:14] VITALS: BP 116/64; PULSE 82; O2SAT 97; BMI 27.4
== END 2023-12-20 11:42 | disposition home or self-care (01) ==
PROVIDERS: PCP Internal Medicine; Visit Provider Physician Assistant
DX: H81.03 Meniere's disease, bilateral (principal); K59.01 Slow transit constipation
CPT/HCPCS: 99213

== ENCOUNTER 2024-01-10 10:45 | Outpatient (AMB) | payer MEDICARE, OTHER, SELFPAY ==
[2024-01-10 10:49] VITALS: BP 120/74; PULSE 86; O2SAT 98; BMI 27.2
--- NOTE | 2024-01-10 10:49 | MHC.PC.OV ---
Vital Signs 01/10/24 10:49 Height 5 ft 7 in Weight 174 lb BMI 27.2 BP 120/74 Blood Pressure Location Lt brachial Position Sitting Pulse 86 Pulse Source Pulse Oximeter Pulse Oximetry (%) 98 Oxygen Delivery Method Room Air Intake Visit Reasons: eye surgery 01/25/2024 Transfer Table Operator Helper Required: No Face Boss: Not Required per policy Accompanied by: Self / Same As Patient Allergies alendronate sodium [From FOSAMAX] Allergy (Severe, Verified 01/10/24 10:49) ANAPHYLAXIS lisinopril [LISINOPRIL] Allergy (Severe, Verified 01/10/24 10:49) ANAPHYLAXIS, cough clarithromycin [CLARITHROMYCIN] Allergy (Intermediate, Verified 01/10/24 10:49) CONFUSION, sores on tongue, dry mouth simvastatin [SIMVASTATIN] Allergy (Mild, Verified 01/10/24 10:49) DRY THROAT, achy, confusion Medication List - Last Reconciled 01/11/24 by Jagdish Mckeon MD acetaminophen 325 mg PO Q6H allopurinol 100 mg PO DAILY aspirin 81 mg PO DAILY atorvastatin 40 mg PO DAILY bisacodyl 5 mg PO DAILY calcium carbonate-vitamin D3 600 mg-5 mcg (200 unit) 1 tab PO DAILY carboxymethylcellulose sodium 1% (Artificial Tears (carboxymethylcellulose)) 1 drp ophthalmic-Left QID PRN clopidogrel (Plavix) 75 mg PO DAILY clotrimazole 10 mg PO TID PRN [CMF Bone Stimulator As directed] denosumab (Prolia) 60 mg subcut [id number] folic acid 1 mg PO DAILY lactulose 20 grams (30 mL) PO QID PRN meclizine 25 mg PO TID PRN meloxicam 15 mg PO DAILY methotrexate sodium 15 mg (6 x 2.5 mg) PO QWEEK metoprolol succinate ER 25 mg PO DAILY montelukast 10 mg PO BEDTIME multivitamin 1 tab PO DAILY prednisone 2 mg (2 x 1 mg) PO DAILY ropinirole 3 mg PO DAILY@1800 sertraline 25 mg PO DAILY tramadol 50 mg PO BID PRN vitamin B complex (B Complex-Vitamin B12 tablet) 1 tab PO DAILY Tobacco use date assessed: 12/20/23 Fall risk assessment: No Falls in past year Last assessed Fall Risk: 01/10/24 Dental Screening Dental Screen Date: 01/10/24 Did you have a dental visit in the last 12 months?: Yes Did you have a dental problem in the last 6 months where you did not have access to dental care?: No Was dental information given to patient?: Patient has dentist HPI eye surgery 01/25/2024 HPI Details having eyelid surgery; has hyperlipidemia gout rheumatoid arthritisand asthma; has had TIAs and on Plavix [facility] Medical History Meniere disease Transient ischemic attack (TIA) Osteoarthritis of shoulders, bilateral Rheumatoid arthritis Osteoarthritis of carpometacarpal (CMC) joint of right thumb Overweight (BMI 25.0-29.9) High cholesterol Hypertension Thrush, oral Nondisplaced fracture of fifth metatarsal bone, left foot, subsequent encounter for fracture with nonunion Seropositive rheumatoid arthritis Fracture of 5th metatarsal Fracture of fifth metatarsal bone of right foot Polymyalgia rheumatica Anxiety and depression Osteoarthritis Lumbar degenerative disc disease Osteoporosis Gout Restless leg syndrome Hypergammaglobulinemia GERD (gastroesophageal reflux disease) Seizure disorder Hypertension Hypercholesterolemia Asthma Peripheral neuropathy Rheumatoid arthritis Surgical History Corneal transplant status History of arthroplasty of right hip History of total abdominal hysterectomy History of corneal transplant H/O left knee surgery History of open reduction and internal fixation (ORIF) procedure History of cholecystectomy History of appendectomy Family History Father CVD (cardiovascular disease) Mother No problems noted. Social History Household Members: Significant Other Household Members Other:: parter Housing: House Do you presently have visiting nurse or other home services: No Alcohol intake: current Alcohol intake frequency: holidays/special occasions only Alcohol type: wine Comment: patient uses call light appropriately Patient Tobacco Use Status: Never used Tobacco e-Cigarette/Vaping Use: Never Used Second Hand Smoke Exposure: No Advance Directives Date on File: 07/11/23 service: No Current occupational status: retired Cognitive needs: No Hearing needs: Yes Vision needs: Yes Questionnaire Thrive Questionnaire Date Thrive assessed: 11/29/23 LIYA-7 AMB Questionnaire LIYA-7 Date LIYA - 7 assessed: 12/20/23 Source: Developed by Drs. Montana Salmon, Annalise Muse, Chris Montana and colleagues, with an educational shiela from [facility]. Review of Systems Const Denies chills, Denies fatigue, Denies headache(s) and Denies weight loss Eyes Denies change in vision, Denies diplopia and Denies eye pain ENT Denies vertigo, Denies dizziness, Denies headache(s) and Denies nasal discharge Card Denies chest pain, Denies rapid heart rate and Denies dyspnea on exertion Resp Denies chest congestion, Denies cough, Denies pain with cough and Denies dyspnea on exertion GI Denies abdominal pain, Denies hematochezia and Denies change in bowel habits Musc Denies myalgias, Denies arthralgias and Denies joint swelling Skin/Breast Denies lesions and Denies unusual bruising Neuro Denies vertigo, Denies dizziness, Denies headache(s) and Denies focal weakness Endo Denies fatigue Physical exam (Primary Care) Vital Signs: Last Vital Signs Pulse 86 01/10/24 10:49 BP 120/74 01/10/24 10:49 Pulse Ox 98 01/10/24 10:49 Oxygen Delivery Method Room Air 01/10/24 10:49 BMI result Body Mass Index 27.2 Tobacco/Smoking Status: Tobacco use Status Tobacco use date assessed 12/20/23 01/10/24 10:50 Patient Tobacco Use Status Never used Tobacco 01/10/24 10:50 e-Cigarette/Vaping Use Never Used 01/10/24 10:50 Thrive Assessment: Date of Thrive Assessment Date Thrive assessed 11/29/23 01/10/24 10:50 Const General: cooperative, healthy appearing and no acute distress Orientation/consciousness: oriented to person, oriented to place and oriented to time [facility] Head: Yes normal to inspection, Yes normocephalic and Yes atraumatic Mouth: Normal oral and palatal mucosa present and tongue normal Throat: Yes posterior oropharynx normal and Yes uvula midline Eyes General: appearance normal, both eyes and all related structures Neck Neck: Yes normal visual inspection, Yes full ROM and Yes no lymphadenopathy Thyroid: Thyroid normal Carotids: normal carotid upstroke Chest Chest palpation & inspection: normal inspection of the chest Resp Effort & Inspection: normal respiratory effort and able to speak in complete sentences Auscultation: clear to auscultation bilaterally Cardio Jugular venous distension: no JVD Palpation: normal PMI Rate: regular rate Rhythm: regular rhythm Heart sounds: S1 normal heart sound present and S2 normal heart sound present GI Inspection: Yes normal to inspection Palpation (GI): Soft to palpation and No hepatosplenomegaly present Auscultation: normal bowel sounds General: Yes no CVA tenderness Back/Spine/Pelvis Back: no CVA tenderness Skin General skin exam: no rashes or lesions noted Neuro General: oriented to person, oriented to place and oriented to time Extrem General: Yes normal to inspection and Yes full ROM Assessment and Plan Assessment & Plan (1) Transient ischemic attack (TIA): Comment: ER July 2023 with left-sided weakness Code(s): G45.9 - Transient cerebral ischemic attack, unspecified (2) Seropositive rheumatoid arthritis: Comment: Methotrexate - 2015-present currently 6 tabs weekly Xeljanx 11/2019-06/2020 Humira 10/2018-02/2019 Simponi Aria infusions- January 2016 Remicade 08/2014-01/2015 Enbrel - prior to 2013 Code(s): M05.9 - Rheumatoid arthritis with rheumatoid factor, unspecified (3) Gout: Code(s): M10.9 - Gout, unspecified Qualifiers: Gout site: foot Gout etiology: idiopathic Chronicity: chronic Laterality: right Presence of tophus: without tophus Qualified Code(s): M1A.0710 - Idiopathic chronic gout, right ankle and foot, without tophus (tophi) (4) Hypercholesterolemia: Code(s): E78.00 - Pure hypercholesterolemia, unspecified (5) Asthma: Code(s): J45.909 - Unspecified asthma, uncomplicated Qualifiers: Asthma severity: mild Asthma persistence: intermittent Asthma complication type: uncomplicated Qualified Code(s): J45.20 - Mild intermittent asthma, uncomplicated (6) Pre-op examination: Code(s): Z01.818 - Encounter for other preprocedural examination Plan: low risk of cardiovascular complications; cleared for surgery Orders: Orders Basic Metabolic Panel 01/10/24 Z01.818 - Encounter for other preprocedural examination Complete Blood Count Auto Diff 01/10/24 D64.9 - Anemia, unspecified ECG 12 lead EKG 01/10/24 H02.409 - Unspecified ptosis of unspecified eyelid Coding Level of Care Code Est Pt Level 4 (50271) Diagnoses Transient ischemic attack (TIA) G45.9 Seropositive rheumatoid arthritis M05.9 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 Gout site: foot Gout etiology: idiopathic Chronicity: chronic Laterality: right Presence of tophus: without tophus Hypercholesterolemia E78.00 Mild intermittent asthma without complication J45.20 Asthma severity: mild Asthma persistence: intermittent Asthma complication type: uncomplicated Pre-op examination Z01.818
== END 2024-01-10 11:09 | disposition home or self-care (01) ==
PROVIDERS: PCP Internal Medicine; Visit Provider Internal Medicine
DX: G45.9 Transient cerebral ischemic attack, unspecified (principal); M05.9 Rheumatoid arthritis with rheumatoid factor, unspecified; M1A.0710 Idiopathic chronic gout, right ankle and foot, without tophus (tophi); E78.00 Pure hypercholesterolemia, unspecified; J45.20 Mild intermittent asthma, uncomplicated; Z01.818 Encounter for other preprocedural examination
CPT/HCPCS: 99214

== ENCOUNTER 2024-01-13 10:37 | Outpatient (REF) | payer MEDICARE, OTHER, SELFPAY ==
[2024-01-13 10:58] LABS: MANUAL DIFF FLAG NO
[2024-01-13 11:29] LABS: Basophils Absolute Auto 0.1 X10*3/uL (0.0-0.2); Basophils Percent Auto 0.8 % (0-2); Eosinophils Absolute Auto 0.6 X10*3/uL (0.0-0.4); Hematocrit 37.5 % (37.0-47.0); Hemoglobin 12.3 g/dl (12.0-16.0); Imm Gran Abs Auto 0.03 X10*3/uL (0.00-0.03); Imm Gran Pct Auto 0.4 % (0.0-0.4); Lymphocytes Absolute Auto 2.3 X10*3/uL (1.2-4.9); Lymphocytes Percent Auto 27.3 % (20-40); Mean Corpuscular HGB Conc 32.8 g/dl (31.0-35.0); Mean Corpuscular Hemoglobin 29.9 pg (27.0-33.0); Mean Corpuscular Volume 91.2 fL (80.0-98.0); Mean Platelet Volume 9.5 fL (9.4-12.3); Monocytes Absolute Auto 0.7 X10*3/uL (0.1-1.2); Monocytes Percent Auto 7.9 % (2-11); Neutrophils Absolute Auto 4.9 x10*3/uL (2.0-8.3); Neutrophils Percent Auto 56.6 % (45-73); Platelet Count 227 X10*3/uL (160-400); Red Blood Count 4.11 X10*6/uL (4.20-5.50); Red Cell Distribution Width 14.4 % (11.0-16.0); White Blood Count 8.6 X10*3/uL (4.8-10.8)
[2024-01-13 12:18] LABS: Appearance Urine Clear; Color Urine Yellow; Glucose Urine UA Negative (Negative); Leukocyte Esterase Urine Trace (Negative); Nitrite Urine Negative (Negative); PH 5.5 (5.0-9.0); Specific Gravity - Urine 1.015 (1.005-1.025); UMIC TRIGGER UA YES; Urine Blood Negative (Negative); Urine Ketones Negative (Negative); Urine Protein Negative (Neg-Trace)
[2024-01-13 12:23] LABS: Bacteria Urine None Seen (None Seen); Hyaline Casts Urine 0-2 /LPF (0-2); RBC Urine 0-2 /HPF (0-2); Squamous Epithelial Cell Urine 0-2 /HPF (0-2); WBC Urine 0-5 /HPF (0-5)
[2024-01-13 12:34] LABS: Alanine Aminotransferase 22 U/L (0-31); Albumin Level 3.7 g/dL (3.5-5.0); Alkaline Phosphatase 106 U/L (39-117); Anion Gap 13 (12-20); Aspartate Amino Transferase 24 U/L (5-31); Bilirubin Total 0.4 mg/dL (0.0-1.0); Blood Urea Nitrogen 17 mg/dL (9-16); C Reactive Protein 0.86 mg/dL (< or = 0.50); Calcium 9.2 mg/dL (8.4-10.2); Carbon Dioxide 24 mmol/L (22-29); Chloride 106 mmol/L (96-108); Cholesterol 125 mg/dL (<200); Estimated Glomerular Filt Rate > 60; Glucose Random 118 mg/dL (60-115); HDL Cholesterol 44 mg/dL (>40); LDL Cholesterol Calculated 51 mg/dL (<100); Potassium 3.8 mmol/L (3.3-5.1); Sodium 139 mmol/L (135-145); Total Protein 7.1 g/dL (6.5-8.0); Triglycerides 150 mg/dL (<150)
[2024-01-18 11:59] LABS: Vitamin D 25-OH, D2 <4 ng/mL; Vitamin D 25-OH, D3 34 ng/mL; Vitamin D 25-OH, Total 34 ng/mL (30-100)
== END 2024-01-13 10:38 | disposition home or self-care (01) ==
LOC: HO.LAB 10:37
PROVIDERS: Internal Medicine; Internal Medicine Rheumatology; PCP Internal Medicine; Visit Provider Internal Medicine
DX: M05.9 Rheumatoid arthritis with rheumatoid factor, unspecified (principal); D64.9 Anemia, unspecified; E78.00 Pure hypercholesterolemia, unspecified; M81.0 Age-related osteoporosis without current pathological fracture
CPT/HCPCS: 36415; 80053; 80061; 81001; 81003; 82306; 85025; 86140

== ENCOUNTER → 2024-01-15 14:30 | Outpatient (REF) | payer MEDICARE, OTHER, SELFPAY ==
--- NOTE | 2024-01-15 14:36 | ECG_ITS ---
Test Reason : PREOP Blood Pressure : / mmHG Vent. Rate : 078 BPM Atrial Rate : 078 BPM P-R Int : 170 ms QRS Dur : 074 ms QT Int : 388 ms P-R-T Axes : 066 059 070 degrees QTc Int : 442 ms Normal sinus rhythm Normal ECG When compared with ECG of 10-JUL-2023 23:41, No significant change was found Referred By: Jagdish Mckeon Electronically Signed By:MINNA CARDONA MD
== END ==
LOC: HO.CARD 14:30
PROVIDERS: PCP Internal Medicine; Visit Provider Internal Medicine
DX: Z13.6 Encounter for screening for cardiovascular disorders (principal); H02.409 Unspecified ptosis of unspecified eyelid
CPT/HCPCS: 93005

== ENCOUNTER → 2024-01-15 14:36 | Outpatient (BNV) | payer MEDICARE, OTHER, SELFPAY | PROVIDERS: PCP Internal Medicine; Visit Provider Internal Medicine Cardiovascular Disease | DX: I10 Essential (primary) hypertension (principal); E78.00 Pure hypercholesterolemia, unspecified; Z01.810 Encounter for preprocedural cardiovascular examination | CPT/HCPCS: 93010 ==

== ENCOUNTER 2024-02-15 12:20 | Outpatient (AMB) | payer MEDICARE, OTHER, SELFPAY ==
--- NOTE | 2024-02-15 12:32 | A.OFFVIS_ITS ---
Intake Vital Signs 02/15/24 12:36 Height 5 ft 7 in Weight 179 lb 7.3 oz BMI 28.1 BP 130/70 Blood Pressure Location Rt brachial Position Sitting Pulse 68 Pulse Source Pulse Oximeter Pulse Oximetry (%) 96 Oxygen Delivery Method Room Air Intake Visit Reasons: Osteoporosis/prolia inj Intake Note: Patient last seen 06/19/[address] Wolff presents today for follow up and Prolia injection. Reports diagnosed with menieres, reports fall went to rehab for 3 wks; issues with eyes/eyelids. 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: No Accompanied by: Self / Same As Patient Allergies alendronate sodium [From FOSAMAX] Allergy (Severe, Verified 02/15/24 12:39) ANAPHYLAXIS lisinopril [LISINOPRIL] Allergy (Severe, Verified 02/15/24 12:39) ANAPHYLAXIS, cough clarithromycin [CLARITHROMYCIN] Allergy (Intermediate, Verified 02/15/24 12:39) CONFUSION, sores on tongue, dry mouth simvastatin [SIMVASTATIN] Allergy (Mild, Verified 02/15/24 12:39) DRY THROAT, achy, confusion Medication List - Last Reconciled 02/15/24 by Dario Campuzano MD acetaminophen 325 mg PO Q6H allopurinol 100 mg PO DAILY aspirin 81 mg PO DAILY atorvastatin 40 mg PO DAILY bisacodyl 5 mg PO DAILY calcium carbonate-vitamin D3 600 mg-5 mcg (200 unit) 1 tab PO DAILY carboxymethylcellulose sodium 1% (Artificial Tears (carboxymethylcellulose)) 1 drp ophthalmic-Left QID PRN clopidogrel (Plavix) 75 mg PO DAILY clotrimazole 10 mg PO TID PRN [CMF Bone Stimulator As directed] denosumab (Prolia) 60 mg subcut [id number] folic acid 1 mg PO DAILY lactulose 20 grams (30 mL) PO QID PRN meclizine 25 mg PO TID PRN meloxicam 15 mg PO DAILY methotrexate sodium 15 mg (6 x 2.5 mg) PO QWEEK metoprolol succinate ER 25 mg PO DAILY montelukast 10 mg PO BEDTIME multivitamin 1 tab PO DAILY prednisone 2 mg (2 x 1 mg) PO DAILY ropinirole 3 mg PO DAILY@1800 sertraline 25 mg PO DAILY tramadol 50 mg PO BID PRN vitamin B complex (B Complex-Vitamin B12 tablet) 1 tab PO DAILY HPI HPI Comments History of Present Illness Details This is an 83-year-old female with seropositive rheumatoid arthritis, osteoporosis who presents for follow-up. Patient missed several appointments due to her falling once, thankfully there were no fractures. She was diagnosed with Meniere's disease and started on meclizine 25 mg t.i.d. with some improvement. She was also admitted to rehab. She also had an epididymal inclusion cyst removed from 1 of her eyelids. She remains on methotrexate 15 mg weekly and folic acid 1 mg daily. Remains on prednisone 2 mg daily as well as meloxicam 15 mg daily. She states that her arthritis has been doing a little worse recently with worsening stiffness and pain in her hands. She also has noticed generalized pain in her legs ankles as well as swelling. Denies any shortness of breath Most recent history by Dr. Wolff 06/2023: The patient returns for evaluation of her rheumatoid arthritis. She was last seen by Nenita in March. She remains on methotrexate 15 mg weekly, meloxicam 15 mg daily, tramadol 50 mg b.i.d., folic acid 1 mg daily, allopurinol 100 mg daily, and prednisone 2 mg daily. Overall she says she has a fair amount of pain. This involves mostly the lower back but also the hands, feet and left shoulder. She received the Prolia injection for osteoporosis in April and there is another injection planned in early October. That was apparently tolerated well. She is on the allopurinol 100 mg daily for presumed gout but does not really have a clear history that she had a gout attack. She had foot pain and it was assumed it was gout. In any case she has been on it for while with good control of hyperuricemia and no attacks of gout have been recalled. She also was thought to have PMR although I think but they are treating use the RA rather than the PMR. However she does take an occasional extra 5 mg prednisone a feels a bit better. Mostly this is for her left shoulder and back pain. [facility] Medical History Meniere disease Transient ischemic attack (TIA) Osteoarthritis of shoulders, bilateral Rheumatoid arthritis Osteoarthritis of carpometacarpal (CMC) joint of right thumb Overweight (BMI 25.0-29.9) High cholesterol Hypertension Thrush, oral Nondisplaced fracture of fifth metatarsal bone, left foot, subsequent encounter for fracture with nonunion Seropositive rheumatoid arthritis Fracture of 5th metatarsal Fracture of fifth metatarsal bone of right foot Polymyalgia rheumatica Anxiety and depression Osteoarthritis Lumbar degenerative disc disease Osteoporosis Gout Restless leg syndrome Hypergammaglobulinemia GERD (gastroesophageal reflux disease) Seizure disorder Hypertension Hypercholesterolemia Asthma Peripheral neuropathy Rheumatoid arthritis Surgical History Corneal transplant status History of arthroplasty of right hip History of total abdominal hysterectomy History of corneal transplant H/O left knee surgery History of open reduction and internal fixation (ORIF) procedure History of cholecystectomy History of appendectomy Family History Father CVD (cardiovascular disease) Mother No problems noted. Social History Household Members: Significant Other Household Members Other:: parter Housing: House Do you presently have visiting nurse or other home services: No Alcohol intake: current Alcohol intake frequency: holidays/special occasions only Alcohol type: wine Comment: patient uses call light appropriately Patient Tobacco Use Status: Never used Tobacco e-Cigarette/Vaping Use: Never Used Second Hand Smoke Exposure: No Advance Directives Date on File: 07/11/23 service: No Current occupational status: retired Cognitive needs: No Hearing needs: Yes Vision needs: Yes Review of Systems Musc Reports arthralgias, Reports joint swelling and Reports stiffness Physical Exam Vital Signs: Last Vital Signs Pulse 68 02/15/24 12:36 BP 130/70 02/15/24 12:36 Pulse Ox 96 02/15/24 12:36 Oxygen Delivery Method Room Air 02/15/24 12:36 BMI result Body Mass Index 28.1 Const General: cooperative, healthy appearing and comfortable Nutritional Appearance: overweight Orientation/consciousness: patient oriented x3 Limitations: no limitations HEENT Head: Yes normocephalic and Yes atraumatic Mouth: moist mucous membranes Resp Effort & Inspection: normal respiratory effort and able to speak in complete sentences Auscultation: clear to auscultation bilaterally Cardio Rate: regular rate Rhythm: regular rhythm Heart sounds: Murmur heart sound present systolic at the right sternal border Neuro General: patient oriented x3 Extrem Other: Significant osteoarthritic changes of both hands Bilateral wrist tenderness and pain with flexion and extension Few swollen MCPs and PIP is bilaterally Multiple tender once Right elbow pain with full extension Normal range of motion of shoulders without pain Bilateral lower limb edema Diffuse tenderness both legs ankles and feet Results Reviewed Results Reviewed: Laboratory Tests 06/14/23 06/14/23 06/14/23 13:49 13:49 13:49 WBC 9.1 Hgb 12.9 ESR 27 H Creatinine 0.87 AST 23 ALT 17 C-Reactive Protein 0.[address] [address] XRay Report Signed Patient: Ellie Alcocer MR#: [id number] : 1940 Acct:[id number] Age/Sex: 82 / F ADM Date: 11/28/[address]: Kayleigh Aggarwal NP Ordering Physician: Kayleigh Aggarwal NP Date of Service: 11/28/22 Procedure(s): XR shoulder RT min 2V Accession Number(s): [id number] cc: Kayleigh Aggarwal NP~ EXAMINATION: XR SHOULDER, LEFT XR SHOULDER, RIGHT CLINICAL INFORMATION: Pain? COMPARISON: None? TECHNIQUE: 4 views of each shoulder? FINDINGS: Left shoulder: No fracture or dislocation. The glenohumeral joint is appropriately aligned. Severe joint space narrowing with [id number] appearance. Small marginal osteophytes inferiorly. The acromioclavicular joint is intact. The visualized lung is clear. Right shoulder: No fracture or dislocation. The glenohumeral joint is appropriately aligned. There is severe joint space narrowing with [id number] appearance. Small inferior marginal osteophytes. The acromioclavicular joint is intact. The visualized lung is clear.? XR/XR shoulder RT min 2V IMPRESSION: Severe joint space narrowing of both glenohumeral joints with [id number] appearance. ? Dictated By: William Dickson MD Signed By: <Electronically signed by William Dickson MD in OV> 11/29/22 1110 Assessment & Plan Assessment & Plan (1) Seropositive rheumatoid arthritis: Comment: Methotrexate - 2016-present currently 6 tabs weekly Xeljanx 11/2019-06/2020 Humira 10/2018-02/2019 Simponi Aria infusions- January 2016 Remicade 08/2014-01/2015 Enbrel - prior to 2013 Code(s): M05.9 - Rheumatoid arthritis with rheumatoid factor, unspecified Plan: This is an 83-year-old female with seropositive RA who presents for follow-up. This is her 1st visit with me. She used to follow-up with Dr. Wolff. On exam patient has few swollen and few tender joints. Will need to advance DMARDs. Increase methotrexate to 20 mg weekly split dose Continue folic acid 1 mg daily Patient can remain on prednisone 2 mg daily. Plan to rule taper in the future. Labs before next visit in 3 months (2) intermission coordinator use of drug: Code(s): Z79.899 - Other [facility]p (current) drug therapy Plan: Monitor safety labs for methotrexate (3) Murmur, cardiac: Code(s): R01.1 - Cardiac murmur, unspecified Plan: Murmur at the right sternal border. Will order 2D echo Advised patient to follow-up with her PCP with regards to her swelling (4) Osteoporosis: Comment: Forrest: 2011 to 2019. Alendronate: experienced anaphylaxis patient cannot recall what happened with this. Prolia recommended, January 2022. Patient received a dose 04/2023 Code(s): M81.0 - Age-related osteoporosis without current pathological fracture Qualifiers: Osteoporosis type: age-related Presence of current pathological fracture: without current pathological fracture Qualified Code(s): M81.0 - Age- related osteoporosis without current pathological fracture Plan: Patient received 1 dose of Prolia in April, she was supposed to receive another 10/2023 however patient had multiple other medical problems and could not make her appointments. Discussed Prolia and potential risk of bone mass loss when missing those. Patient understanding. Patient will receive Prolia injection in clinic today. Next Prolia injection in 6 months (5) Gout: Code(s): M10.9 - Gout, unspecified Qualifiers: Gout site: foot Gout etiology: idiopathic Chronicity: chronic Laterality: right Presence of tophus: without tophus Qualified Code(s): M1A.0710 - Idiopathic chronic gout, right ankle and foot, without tophus (tophi) Plan: Reported history of gout. Based on foot pain. History however is not classic for a gout attack. She has been on allopurinol regularly for some time now. Will check uric acid below for next visit. She can continue with allopurinol at current dose for now. Will consider reducing the dose in the future. Plan I spent 50 minutes reviewing patient's chart, evaluating patient, ordering diagnostic workup, counseling patient and documenting in the chart Orders: Orders Comprehensive Met. Panel 3 Months M05.9 - Rheumatoid arthritis with rheumatoid factor, unspecified, Z79.899 - Other director long term care (current) drug therapy Erythrocyte Sedimentation Rate 3 Months M05.9 - Rheumatoid arthritis with rh eumatoid factor, unspecified, Z79.899 - Other director long term care (current) drug therapy Uric Acid 3 Months M1A.0710 - Idiopathic chronic gout, right ankle and foot, without tophus (tophi) CA echo transthoracic complete Today R01.1 - Cardiac murmur, unspecified Hepatitis A,B,C Profile 3 Months Z11.59 - Encounter for screening for other viral diseases T Spot TB 3 Months Z11.7 - Encounter for testing for latent tuberculosis infection Complete Blood Count Auto Diff 3 Months M05.9 - Rheumatoid arthritis with rheumatoid factor, unspecified, Z79.899 - Other director long term care (current) drug therapy C Reactive Protein 3 Months M05.9 - Rheumatoid arthritis with rheumatoid factor, unspecified, Z79.899 - Other director long term care (current) drug therapy Medications: Changed From methotrexate sodium 15 mg (6 x 2.5 mg) PO QWEEK 24 tabs 0RF To methotrexate sodium Patient already has one-month supply of methotrexate 6 tabs weekly. She needs additional 2 tabs weekly for this month I prescribed 8 tabs 20 mg (8 x 2.5 mg) PO QWEEK 8 tabs 0RF From methotrexate sodium Patient already has one-month supply of methotrexate 6 tabs weekly. She needs additional 2 tabs weekly for this month I prescribed 8 tabs 20 mg (8 x 2.5 mg) PO QWEEK 8 tabs 0RF To methotrexate sodium Split dose into 4 tabs twice. 12-24 hours apart 20 mg (8 x 2.5 mg) PO QWEEK 64 tabs 0RF Refilled denosumab (Prolia) 60 mg subcut [id number] 1 mL 1RF M81.0 - Age-related osteoporosis without current pathological fracture Coding Level of Care Code Est Pt Level 5 (42292) Diagnoses Seropositive rheumatoid arthritis M05.9 intermission coordinator use of drug Z79.899 Murmur, cardiac R01.1 Age-related osteoporosis without current pathological fracture M81.0 Osteoporosis type: age-related Presence of current pathological fracture: without current pathological fracture 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 Gout site: foot Gout etiology: idiopathic Chronicity: chronic Laterality: right Presence of tophus: without tophus
[2024-02-15 12:36] VITALS: BP 130/70; PULSE 68; O2SAT 96; BMI 28.1
== END 2024-02-15 13:24 | disposition home or self-care (01) ==
PROVIDERS: PCP Internal Medicine; Visit Provider Student in an Organized Health Care Education/Training Program
DX: M05.79 Rheumatoid arthritis with rheumatoid factor of multiple sites without organ or systems involvement (principal); Z79.899 Other long term (current) drug therapy; R01.1 Cardiac murmur, unspecified; M81.0 Age-related osteoporosis without current pathological fracture; M1A.0710 Idiopathic chronic gout, right ankle and foot, without tophus (tophi)
CPT/HCPCS: 99215

== ENCOUNTER → 2024-02-15 12:20 | Outpatient (BNVA) | payer MEDICARE, OTHER, SELFPAY | PROVIDERS: PCP Internal Medicine; Visit Provider Student in an Organized Health Care Education/Training Program | DX: M05.9 Rheumatoid arthritis with rheumatoid factor, unspecified (principal); M81.0 Age-related osteoporosis without current pathological fracture; M1A.0710 Idiopathic chronic gout, right ankle and foot, without tophus (tophi); R01.1 Cardiac murmur, unspecified; Z79.899 Other long term (current) drug therapy | CPT/HCPCS: 96372; 99212; J0897 ==

== ENCOUNTER → 2024-03-29 12:48 | Outpatient (REF) | payer MEDICARE, OTHER, SELFPAY ==
--- NOTE | 2024-03-29 12:51 | CA_ITS ---
Transthoracic Echocardiogram Patient (Last, First, Middle): Ellie Alcocer S Gender: Female Date of : 1940 Age: 83 Procedure Date: 03/29/2024 Procedure Type: Transthoracic Echocardiogram Location: OP Height: 170.18 cm Weight: 78.47 kg BSA: 1.90 m2 Heart Rate: 68 bpm BP: 145 / 65 mmHg Tile Grinder: EDILBERTO Referring MD: Dario Campuzano MD Symptoms: R01.1 - Cardiac murmur, unspecified Study Quality: Good ECG Rhythm: Sinus Conclusions: - The left ventricular systolic function is normal. The calculated ejection fraction is 68% by biplane method. - There is moderate calcification of the aortic valve. There is mild aortic valve stenosis. Findings Left Ventricle Normal left ventricular cavity size. There is mildly increased left ventricular wall thickness. The left ventricular systolic function is normal. The calculated ejection fraction is 68% by biplane method. There is no evidence of regional wall motion abnormalities. Evidence suggests grade I (mild) diastolic dysfunction. LV peak GLS -17.5%. Right Ventricle Normal right ventricular cavity size and systolic function. Atria Both atria are normal in size. Aortic Valve There is moderate calcification of the aortic valve. There is mild aortic valve stenosis. The peak aortic velocity is 2.23 m/s with a calculated peak gradient of 20 mmHg. The mean gradient is 11 mmHg. The aortic valve area is 1.49 cm2. Mitral Valve The mitral valve appears normal. There is trace mitral valve regurgitation. There is no mitral valve stenosis. Pulmonic Valve The pulmonic valve is likely normal. Tricuspid Valve Normal tricuspid valve structure. There is trace tricuspid valve regurgitation. There is no evidence of pulmonary hypertension. Great Vessels The asc aorta is normal in size. Venous The inferior vena cava is normal in size and collapses greater than 50% with inspiration. Pericardium/Pleural Prominent epicardial adipose tissue noted. There is a trivial pericardial effusion. Prior Study Comparison Changes noted compared to prior study dated: 06/25/2019. see comment on aortic valve. Measurements 2D Linear Measurements IVSd: 1.17 0.6-0.9/0.6-1.0 cm LVIDd: 3.88 3.9-5.3/4.2-5.9 cm LVIDd Index: 2.04 2.4-3.2/2.2-3.1 cm/m2 LVIDs: 2.04 2.0-3.6 cm LVPWd: 1.11 0.7-1.1 cm LA Diam: 4.10 2.7-3.8/3.0-4.0 cm LAIDs Index: 2.16 1.5-2.3 cm/m2 LV Mass: 182.35 67-162/88-224 g LV Mass Index: 95.97 43-95/49-115 g/m2 LVOT Diam: 1.90 3.0+(-)1.3 cm 2D Systolic Function EF 4C: 69.20 >55% EF 2C: 67.10 >55% EF BiP: 68.30 >55% Mitral Valve MV Pk E: 1.04 MV PK A: 1.02 MV Decel Time: 247.00 E/A: 1.00 E'Lateral: 6.53 E'Medial: 6.42 E/E' Med: 16.20 E/E' Lat: 15.90 PHT: 72.00 MVA PHT: 3.06 Decel Bremer: 4.21 Aortic Valve AoV Pk Gio: 2.23 AoV Mn Gio: 1.52 AoV VTI: 0.50 AoV Pk Grad: 20.00 Aov Mn Grad: 11.00 STEFFI Cont.VTI: 1.49 LVOT LVOT Pk Gio: 1.14 LVOT Mn Gio: 0.78 LVOT VTI: 0.26 LVOT Pk Grad: 5.00 LVOT Mn Grad: 3.00 LVOT Diam: 1.90 LVOT Area: 2.84 Diastolic Function MV Pk E: 1.04 MV Pk A: 1.02 E/A: 1.00 E'Medial: 6.42 E/E' Med: 16.20 E' Laterial: 6.53 E/E' Lat: 15.90 Right Ventricle TAPSE (mm): 18.70 TVS' Gio: 11.10 Tricuspid Valve TR Pk Gio: 2.09 TR Pk Grad: 17.00 RA Press: 3.00 RVSP: 20.00 Great Vessels Aorta Sinus of Valsalva: 3.10 2.0-3.5 cm Ao Asc: 3.30 2.1-3.4 cm Pulmonary Valve PV Pk Gio: 0.83 Peak PV Grad: 3.00 Updated in Other Vendor System with Status of Final Slade Kristian MD electronically signed on 04/02/2024 11:26:14 AM with status of Final
== END ==
LOC: HO.CARD 12:48
PROVIDERS: PCP Internal Medicine; Visit Provider Student in an Organized Health Care Education/Training Program
DX: R01.1 Cardiac murmur, unspecified (principal)
CPT/HCPCS: 93306; 93356

== ENCOUNTER → 2024-03-29 12:51 | Outpatient (BNV) | payer MEDICARE, OTHER, SELFPAY | PROVIDERS: PCP Internal Medicine; Visit Provider Internal Medicine | DX: I35.0 Nonrheumatic aortic (valve) stenosis (principal); I35.8 Other nonrheumatic aortic valve disorders | CPT/HCPCS: 93306; 93356 ==

== ENCOUNTER 2024-04-04 10:50 | Outpatient (AMB) | payer MEDICARE, OTHER, SELFPAY ==
--- NOTE | 2024-04-04 10:52 | MHC.PC.OV ---
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 Allergies alendronate sodium [From FOSAMAX] Allergy (Severe, Verified 04/04/24 10:52) ANAPHYLAXIS lisinopril [LISINOPRIL] Allergy (Severe, Verified 04/04/24 10:52) ANAPHYLAXIS, cough clarithromycin [CLARITHROMYCIN] Allergy (Intermediate, Verified 04/04/24 10:52) CONFUSION, sores on tongue, dry mouth simvastatin [SIMVASTATIN] Allergy (Mild, Verified 04/04/24 10:52) DRY THROAT, achy, confusion Tobacco use date assessed: 04/04/24 Fall risk assessment: No Falls in past year Last assessed Fall Risk: 04/04/24 Dental Screening Dental Screen Date: 01/10/24 HPI f/u HTN HPI Details 83-year-old overweight female with a history of seronegative rheumatoid arthritis seizure disorder hypertension hypercholesterolemia asthma generalized anxiety disorder polymyalgia rheumatica coming in for follow-up last seen in 09/25/2023. Noted recent echocardiogram 03/25/2024 left ventricular ejection fraction normal 68% moderate aortic valve calcification with mild aortic valve stenosis 1.49 cm2 notes from Rheumatology on Prolia for osteoporosis on methotrexate and folic acid and prednisone and tramadol mostly low back hands feet left shoulder. complains of tiredness no vomiting no chest pains no shortness a breath no bowel bladder symptoms. [facility] Medical History Meniere disease Transient ischemic attack (TIA) Osteoarthritis of shoulders, bilateral Rheumatoid arthritis Osteoarthritis of carpometacarpal (CMC) joint of right thumb Overweight (BMI 25.0-29.9) High cholesterol Hypertension Thrush, oral Nondisplaced fracture of fifth metatarsal bone, left foot, subsequent encounter for fracture with nonunion Seropositive rheumatoid arthritis Fracture of 5th metatarsal Fracture of fifth metatarsal bone of right foot Polymyalgia rheumatica Anxiety and depression Osteoarthritis Lumbar degenerative disc disease Osteoporosis Gout Restless leg syndrome Hypergammaglobulinemia GERD (gastroesophageal reflux disease) Seizure disorder Hypertension Hypercholesterolemia Asthma Peripheral neuropathy Rheumatoid arthritis Surgical History Corneal transplant status History of arthroplasty of right hip History of total abdominal hysterectomy History of corneal transplant H/O left knee surgery History of open reduction and internal fixation (ORIF) procedure History of cholecystectomy History of appendectomy Family History Father CVD (cardiovascular disease) Mother No problems noted. Social History Household Members: Significant Other Household Members Other:: parter Housing: House Do you presently have visiting nurse or other home services: No Alcohol intake: current Alcohol intake frequency: holidays/special occasions only Alcohol type: wine Comment: patient uses call light appropriately Patient Tobacco Use Status: Never used Tobacco e-Cigarette/Vaping Use: Never Used Second Hand Smoke Exposure: No Advance Directives Date on File: 07/11/23 service: No Current occupational status: retired Cognitive needs: No Hearing needs: Yes Vision needs: Yes Questionnaire PHQ-9 Over the last 2 weeks, how often have you been bothered by any of the following problems? 1. Little interest or pleasure in doing things: not at all 2. Feeling down, depressed, or hopeless: not at all 3. Trouble falling or staying asleep, or sleeping too much: not at all 4. Feeling tired or having little energy: not at all 5. Poor appetite or overeating: not at all 6. Feeling bad about yourself - or that you are a failure or have let yourself or your family down: not at all 7. Trouble concentrating on things, such as reading the newspaper or watching television: not at all 8. Moving or speaking so slowly that other people could have noticed. Or the opposite - being so fidgety or restless that you have been moving around a lot more than usual: not at all 9. Thoughts that you would be better off or of hurting yourself in some way: not at all Total score: 0 Depression Screening Interpretation: Negative Depression Screening Done: Yes [id number] - PHQ-9 Billing: Yes Source: Developed by Drs. Montana Salmon, Annalise Muse, Chris Montana and colleagues, with an educational shiela from [employer]. Thrive Questionnaire Date Thrive assessed: 04/04/24 I am a: Patient What is your living situation today?: I have a steady place to live Within the past 12 months, did the food you bought not last and you didn't have the money to get more?: Never true Within the past 12 months, did you worry whether your food would run out before you got money to buy more?: Never true Do you have trouble paying for medicines?: No Do you have trouble getting transportation to medical appointments?: No Do you have trouble paying your heating and electricity bill?: No Do you have trouble taking care of your child, family member or friend?: No Do you have trouble with day-to-day activities such as bathing, preparing meals, shopping, managing finances, etc.?: No Are you currently unemployed and looking for a job?: No Are you interested in more education?: No Please select the resources that you would like help with: None Currently or been in a relationship where the following occur: no concerns reported THRIVE Score: 0 AUDIT C Alcohol Use Questionnaire (AUDIT-C) 1. How often do you have a drink containing alcohol?: Monthly or less 2. How many drinks containing alcohol do you have on a typical day when you are drinking?: 1 or 2 (Beer or Wine) 3. How often do you have six or more drinks on one occasion?: Never Total Score: 1 LIYA-7 AMB Questionnaire LIYA-7 Date LIYA - 7 assessed: 12/20/23 Source: Developed by Drs. Montana Salmon, Annalise Muse, Chris Montana and colleagues, with an educational shiela from [employer]. Physical exam (Primary Care) Vital Signs: Last Vital Signs Pulse 72 04/04/24 10:53 BP 130/60 04/04/24 10:53 Pulse Ox 96 04/04/24 10:53 Oxygen Delivery Method Room Air 04/04/24 10:53 BMI result Body Mass Index 27.1 Tobacco/Smoking Status: Tobacco use Status Tobacco use date assessed 04/04/24 04/04/24 11:02 Patient Tobacco Use Status Never used Tobacco 04/04/24 11:02 e-Cigarette/Vaping Use Never Used 04/04/24 11:02 PHQ-9: PHQ-9 Score PHQ-9: Total score 0 04/04/24 11:32 Depression Screening Interpretation: Negative Thrive Assessment: Date of Thrive Assessment Date Thrive assessed 04/04/24 04/04/24 11:02 Currently or been in a relationship where the following occur: no concerns reported Const General: alert; No acute distress Eyes Conjunctivae: conjunctivae normal Resp Auscultation: clear to auscultation bilaterally Cardio Rate: regular rate Rhythm: regular rhythm GI Inspection: Yes normal to inspection Extrem General: Yes normal to inspection and No edema Assessment and Plan Assessment & Plan (1) Asthma: Code(s): J45.909 - Unspecified asthma, uncomplicated Qualifiers: Asthma complication type: uncomplicated Asthma persistence: intermittent Asthma severity: mild Qualified Code(s): J45.20 - Mild intermittent asthma, uncomplicated Plan: Presently stable and has not been needing any inhaler. (2) Hypercholesterolemia: Code(s): E78.00 - Pure hypercholesterolemia, unspecified Plan: Avoid fried foods, chicken skin, eggs, butter margarine, pastries and meat. Be it pork or beef they have a lot of cholesterol LDL goal of less than 100 and triglyceride of less than 150 on atorvastatin 40 mg once a day (3) Hypertension: Code(s): I10 - Essential (primary) hypertension Qualifiers: Hypertension type: essential hypertension Qualified Code(s): I10 - Essential (primary) hypertension Plan: Continue with blood pressure medication. Decrease salt intake and exercise on metoprolol 25 mg once a day (4) GERD (gastroesophageal reflux disease): Code(s): K21.9 - Gastro-esophageal reflux disease without esophagitis Qualifiers: Esophagitis presence: without esophagitis Qualified Code(s): K21.9 - Gastro-esophageal reflux disease without esophagitis Plan: Avoid the foods that causes that usually spicy foods, tomato products, juices, coffee, soda and foods that your sensitive to. After eating do not lie down, allow 3-4 hours before in lie down. And keep the head of bed above 30 degrees to avoid the acid from going up. (5) Osteoporosis: Comment: Forrest: 2011 to 2019. Alendronate: experienced anaphylaxis patient cannot recall what happened with this. Prolia recommended, January 2022. Patient received a dose 04/2023 Bone density 01/23/2022 Code(s): M81.0 - Age-related osteoporosis without current pathological fracture Qualifiers: Osteoporosis type: age-related Presence of current pathological fracture: without current pathological fracture Qualified Code(s): M81.0 - Age-related osteoporosis without current pathological fracture Plan: Patient follows up with Rheumatology and receives Prolia last bone density noted 01/23/2022 (6) Seropositive rheumatoid arthritis: Comment: Methotrexate - 2015-present currently 6 tabs weekly Xeljanx 11/2019-06/2020 Humira 10/2018-02/2019 Simponi Aria infusions- January 2016 Remicade 08/2014-01/2015 Enbrel - prior to 2013 Code(s): M05.9 - Rheumatoid arthritis with rheumatoid factor, unspecified Plan: Continue to follow-up with Rheumatology on methotrexate and folic acid (7) Polymyalgia rheumatica: Code(s): M35.3 - Polymyalgia rheumatica Plan: Presently on steroids low-dose (8) Generalized anxiety disorder: Comment: Declined referral for counseling May 2023 Code(s): F41.1 - Generalized anxiety disorder Plan: Continue with present medication. Orders: Orders XR DEXA axial skeleton Today M81.0 - Age-related osteoporosis without current pathological fracture Complete Blood Count Auto Diff 3 Months M35.3 - Polymyalgia rheumatica Free T4 (Free Thyroxine) 3 Months M35.3 - Polymyalgia rheumatica Comprehensive Met. Panel 3 Months M35.3 - Polymyalgia rheumatica Magnesium 3 Months M35.3 - Polymyalgia rheumatica Medications: New pantoprazole 20 mg PO DAILY 90 tabs 3RF K21.9 - Gastro-esophageal reflux disease without esophagitis Coding Level of Care Code Est Pt Level 4 (34600) Diagnoses Mild intermittent asthma without complication J45.20 Asthma complication type: uncomplicated Asthma persistence: intermittent Asthma severity: mild Hypercholesterolemia E78.00 Essential hypertension I10 Hypertension type: essential hypertension Gastroesophageal reflux disease without esophagitis K21.9 Esophagitis presence: without esophagitis Age-related osteoporosis without current pathological fracture M81.0 Osteoporosis type: age-related Presence of current pathological fracture: without current pathological fracture Seropositive rheumatoid arthritis M05.9 Polymyalgia rheumatica M35.3 Generalized anxiety disorder F41.1
[2024-04-04 10:53] VITALS: BP 130/60; PULSE 72; O2SAT 96; BMI 27.1
== END 2024-04-04 11:45 | disposition home or self-care (01) ==
PROVIDERS: PCP Internal Medicine; Visit Provider Internal Medicine
DX: M05.9 Rheumatoid arthritis with rheumatoid factor, unspecified (principal); M35.3 Polymyalgia rheumatica; J45.20 Mild intermittent asthma, uncomplicated; E78.00 Pure hypercholesterolemia, unspecified; I10 Essential (primary) hypertension; K21.9 Gastro-esophageal reflux disease without esophagitis; M81.0 Age-related osteoporosis without current pathological fracture; F41.1 Generalized anxiety disorder
CPT/HCPCS: 99214

== ENCOUNTER 2024-05-17 11:19 | Outpatient (REF) | payer MEDICARE, OTHER, SELFPAY ==
--- NOTE | ~2024-05-17 | MM_ITS ---
EXAMINATION: BONE DENSITOMETRY CLINICAL INDICATION: Age-related osteoporosis without current pathological fracture. COMPARISON: Previous BD dated 08/14/2019 and baseline BD dated 06/12/2008, spine. This is the patient's baseline examination for the left forearm radius 33%. Patient has had bilateral hip replacements. TECHNIQUE: Using a [email or web address] DXA System (software version: 13.1) manufactured by [employer], dual-energy x-ray absorptiometry was performed of the lumbar spine and left forearm radius 33%.. The images are of good technical quality. Summary results are attached. FINDINGS: AP SPINE L1-L4: Current: BMD 1.265 g/cm2, Z-score 2.2, T-score 0.7, normal, 6.4% increase from previous, 12.3% increase from baseline (<5% change is not significant). Prior: BMD 1.189 g/cm2. Baseline: BMD 1.126 g/cm2. LEFT FOREARM RADIUS 33%: BMD 0.569 g/cm2, Z-score -0.3, T-score -3.5, osteoporosis. IDENTIFIED RISK FACTORS: Early menopause, secondary osteoporosis, rheumatoid arthritis, osteoporosis, low calcium intake, hysterectomy, bilateral oophorectomy. HISTORY OF FRACTURE: None listed. MEDICATIONS: Calcium supplements or multivitamin, vitamin D. MM/XR DEXA axial skeleton IMPRESSION: 1. DIAGNOSIS: Osteoporosis based on the lowest T-score value of -3.5 in the forearm radius 33% applying World Health Organization criteria. 2. 10-YEAR FRACTURE RISK PREDICTION, FRAX: According to the guidelines, FRAX calculation should only be performed on patients in the osteopenia bone density category. Therefore, FRAX was not performed on this patient. 3. Treatment Recommendations: NOF guidelines recommend consideration for treatment in postmenopausal women and men age 50 and older presenting with the following: -A hip or vertebral (clinical or morphometric) fracture. -T-score less than or equal to -2.5 at the femoral neck or spine after appropriate evaluation to exclude secondary causes. -Low bone mass at the hip or spine and a 10-year fracture probability by FRAX of greater than or equal to 3% for hip fracture or greater than or equal to 20% for major osteoporotic fracture based on the [place] adapted WHO algorithm. 4. Other Recommendations: All treatment decisions require clinical judgment and consideration of individual patient factors, including patient preferences, comorbidities, previous drug use, risk factors not captured in the FRAX model (e.g. frailty, falls, vitamin D deficiency, increased bone turnover, interval significant decline in bone density) and possible under or overestimation of fracture risk by FRAX. Additional medical evaluation for secondary cause of low bone mineral density may be appropriate. FUTURE SCAN RECOMMENDATION: People with diagnosed cases of osteoporosis or at high risk for fracture should have regular bone mineral density tests. For patients eligible for Medicare, routine testing is allowed once every 2 years. The testing frequency can be increased to one year for patients who have rapidly progressing disease, those who are receiving or discontinuing medical therapy to restore bone mass, or have additional risk factors.
== END 2024-05-17 11:20 | disposition home or self-care (01) ==
LOC: HO.MAMMO 11:19
PROVIDERS: PCP Internal Medicine; Visit Provider Internal Medicine
DX: M81.0 Age-related osteoporosis without current pathological fracture (principal)
CPT/HCPCS: 77080

== ENCOUNTER 2024-05-20 13:35 | Outpatient (AMB) | payer MEDICARE, OTHER, SELFPAY ==
--- NOTE | 2024-05-20 13:36 | MHC.OFFVIS ---
Vital Signs 05/20/24 13:41 Height 5 ft 7 in Weight 177 lb 7.554 oz BMI 27.8 BP 112/60 Blood Pressure Location Lt brachial Position Sitting Pulse 92 Pulse Source Pulse Oximeter Pulse Oximetry (%) 97 Oxygen Delivery Method Room Air Intake Visit Reasons: RA follow up/lm Intake Note: Patient presets for RA follow up. Allergies alendronate sodium [From FOSAMAX] Allergy (Severe, Verified 04/04/24 10:52) ANAPHYLAXIS lisinopril [LISINOPRIL] Allergy (Severe, Verified 04/04/24 10:52) ANAPHYLAXIS, cough clarithromycin [CLARITHROMYCIN] Allergy (Intermediate, Verified 04/04/24 10:52) CONFUSION, sores on tongue, dry mouth simvastatin [SIMVASTATIN] Allergy (Mild, Verified 04/04/24 10:52) DRY THROAT, achy, confusion Medication List - Last Reconciled 05/20/24 by Dario Campuzano MD acetaminophen 325 mg PO Q6H allopurinol 100 mg PO DAILY aspirin 81 mg PO DAILY atorvastatin 40 mg PO DAILY bisacodyl 5 mg PO DAILY calcium carbonate-vitamin D3 600 mg-5 mcg (200 unit) 1 tab PO DAILY carboxymethylcellulose sodium 1% (Artificial Tears (carboxymethylcellulose)) 1 drp ophthalmic-Left QID PRN clopidogrel (Plavix) 75 mg PO DAILY clotrimazole 10 mg PO TID PRN [CMF Bone Stimulator As directed] denosumab (Prolia) 60 mg subcut [id number] folic acid 1 mg PO DAILY lactulose 20 grams (30 mL) PO QID PRN meclizine 25 mg PO TID PRN meloxicam 15 mg PO DAILY methotrexate sodium 20 mg (8 x 2.5 mg) PO QWEEK metoprolol succinate ER 25 mg PO DAILY montelukast 10 mg PO BEDTIME multivitamin 1 tab PO DAILY pantoprazole 20 mg PO DAILY prednisone 2 mg (2 x 1 mg) PO DAILY ropinirole 3 mg PO DAILY@1800 sertraline 25 mg PO DAILY tramadol 50 mg PO BID PRN vitamin B complex (B Complex-Vitamin B12 tablet) 1 tab PO DAILY HPI Comments Details: This is an 84-year-old female with seropositive rheumatoid arthritis, osteoporosis who presents for follow-up. After last visit I asked patient to increase her methotrexate to 20 mg weekly from 15 mg weekly. She only did it for a few weeks then went back to 15 mg. She did not fully understand the instructions. She states that she feels achy all over. Her shoulders, her knees, her hands. Intermittent swelling of her legs. Denies any lightheadedness or shortness of breath. Most recent history by Dr. Wolff 06/2023: The patient returns for evaluation of her rheumatoid arthritis. She was last seen by Nenita in March. She remains on methotrexate 15 mg weekly, meloxicam 15 mg daily, tramadol 50 mg b.i.d., folic acid 1 mg daily, allopurinol 100 mg daily, and prednisone 2 mg daily. Overall she says she has a fair amount of pain. This involves mostly the lower back but also the hands, feet and left shoulder. She received the Prolia injection for osteoporosis in April and there is another injection planned in early October. That was apparently tolerated well. She is on the allopurinol 100 mg daily for presumed gout but does not really have a clear history that she had a gout attack. She had foot pain and it was assumed it was gout. In any case she has been on it for while with good control of hyperuricemia and no attacks of gout have been recalled. She also was thought to have PMR although I think but they are treating use the RA rather than the PMR. However she does take an occasional extra 5 mg prednisone a feels a bit better. Mostly this is for her left shoulder and back pain. [facility] Medical History Meniere disease Transient ischemic attack (TIA) Osteoarthritis of shoulders, bilateral Rheumatoid arthritis Osteoarthritis of carpometacarpal (CMC) joint of right thumb Overweight (BMI 25.0-29.9) High cholesterol Hypertension Thrush, oral Nondisplaced fracture of fifth metatarsal bone, left foot, subsequent encounter for fracture with nonunion Seropositive rheumatoid arthritis Fracture of 5th metatarsal Fracture of fifth metatarsal bone of right foot Polymyalgia rheumatica Anxiety and depression Osteoarthritis Lumbar degenerative disc disease Osteoporosis Gout Restless leg syndrome Hypergammaglobulinemia GERD (gastroesophageal reflux disease) Seizure disorder Hypertension Hypercholesterolemia Asthma Peripheral neuropathy Rheumatoid arthritis Surgical History Corneal transplant status History of arthroplasty of right hip History of total abdominal hysterectomy History of corneal transplant H/O left knee surgery History of open reduction and internal fixation (ORIF) procedure History of cholecystectomy History of appendectomy Family History Father CVD (cardiovascular disease) Mother No problems noted. Social History Household Members: Significant Other Household Members Other:: parter Housing: House Do you presently have visiting nurse or other home services: No Alcohol intake: current Alcohol intake frequency: holidays/special occasions only Alcohol type: wine Comment: patient uses call light appropriately Patient Tobacco Use Status: Never used Tobacco e-Cigarette/Vaping Use: Never Used Second Hand Smoke Exposure: No Advance Directives Date on File: 07/11/23 service: No Current occupational status: retired Cognitive needs: No Hearing needs: Yes Vision needs: Yes Review of Systems Musc Reports arthralgias, Reports joint swelling and Reports stiffness Physical Exam Vital Signs: Last Vital Signs Pulse 92 05/20/24 13:41 BP 112/60 05/20/24 13:41 Pulse Ox 97 05/20/24 13:41 Oxygen Delivery Method Room Air 05/20/24 13:41 BMI result Body Mass Index 27.8 Const General: cooperative, healthy appearing and comfortable Nutritional Appearance: overweight Orientation/consciousness: patient oriented x3 Limitations: no limitations HEENT Head: Yes normocephalic and Yes atraumatic Mouth: moist mucous membranes Resp Effort & Inspection: normal respiratory effort and able to speak in complete sentences Auscultation: clear to auscultation bilaterally Cardio Rate: regular rate Rhythm: regular rhythm Heart sounds: Murmur heart sound present systolic at the right sternal border Neuro General: patient oriented x3 Extrem Other: Significant osteoarthritic changes of both hands Bilateral wrist tenderness and pain with flexion and extension Multiple tender MCPs left hand Positive MCP squeeze test on the left Left 2nd 3rd and 4th PIP swelling and tenderness Right 2nd and 3rd PIP swelling and tenderness Right elbow pain with full extension Normal range of motion of shoulders without pain Bilateral lower limb edema Diffuse tenderness both legs ankles and feet (likely neuropathic) Results Reviewed Results Reviewed: Laboratory Tests 06/14/23 06/14/23 06/14/23 13:49 13:49 13:49 WBC 9.1 Hgb 12.9 ESR 27 H Creatinine 0.87 AST 23 ALT 17 C-Reactive Protein 0.[address] [address] XRay Report Signed Patient: Ellie Alcocer MR#: [id number] : 1940 Acct:[id number] Age/Sex: 82 / F ADM Date: 11/28/[address]: Kayleigh Aggarwal NP Ordering Physician: Kayleigh Aggarwal NP Date of Service: 11/28/22 Procedure(s): XR shoulder RT min 2V Accession Number(s): [id number] cc: Kayleigh Aggarwal NP~ EXAMINATION: XR SHOULDER, LEFT XR SHOULDER, RIGHT CLINICAL INFORMATION: Pain? COMPARISON: None? TECHNIQUE: 4 views of each shoulder? FINDINGS: Left shoulder: No fracture or dislocation. The glenohumeral joint is appropriately aligned. Severe joint space narrowing with [id number] appearance. Small marginal osteophytes inferiorly. The acromioclavicular joint is intact. The visualized lung is clear. Right shoulder: No fracture or dislocation. The glenohumeral joint is appropriately aligned. There is severe joint space narrowing with [id number] appearance. Small inferior marginal osteophytes. The acromioclavicular joint is intact. The visualized lung is clear.? XR/XR shoulder RT min 2V IMPRESSION: Severe joint space narrowing of both glenohumeral joints with kotk-[id number] appearance. ? Dictated By: William Dickson MD Signed By: <Electronically signed by William Dickson MD in OV> 11/29/22 1110 Assessment & Plan Assessment & Plan (1) Seropositive rheumatoid arthritis: Comment: Methotrexate - 2016-present Xeljanx 11/2019-06/2020 Humira 10/2018-02/2019 Simponi Aria infusions- January 2016 Remicade 08/2014-01/2015 Enbrel - prior to 2013 Code(s): M05.9 - Rheumatoid arthritis with rheumatoid factor, unspecified Category: Medical Plan: This is an 84-year-old female with seropositive RA who presents for follow-up. Patient did not increase her methotrexate 15 mg to 20 mg weekly as instructed last visit. She continues to have multiple swollen and tender joints. Advised patient to increase her methotrexate to 20 mg weekly Continue folic acid 1 mg daily Patient can remain on prednisone 2 mg daily. Plan to taper in the future. 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 Patient referred to auto wash buffer (4) Osteoporosis: Comment: Boniva: 2011 to 2019. Alendronate: experienced anaphylaxis patient cannot recall what happened with this. Prolia recommended, January 2022. Patient received a dose 04/2023 Bone density 01/23/2022 Code(s): M81.0 - Age-related osteoporosis without current pathological fracture Category: Medical Qualifiers: Osteoporosis type: age-related Presence of current pathological fracture: without current pathological fracture Qualified Code(s): M81.0 - Age-related osteoporosis without current pathological fracture Plan: Patient received 1 dose of Prolia in April 2023, she was supposed to receive another 10/2023 however patient had multiple other medical problems and could not make her appointments. Discussed Prolia and potential risk of bone mass loss when missing those. She received her 2nd Prolia injection 02/2024. Next Prolia injection 08/2024 (5) Gout: Code(s): M10.9 - Gout, unspecified Category: Medical Qualifiers: Gout site: foot Gout etiology: idiopathic Chronicity: chronic Laterality: right Presence of tophus: without tophus Qualified Code(s): M1A.0710 - Idiopathic chronic gout, right ankle and foot, without tophus (tophi) Plan: There is reported history of gout in the chart. Patient is on allopurinol 100 mg daily. I will consider lowering her allopurinol Plan I spent 45 minutes reviewing patient's chart, evaluating patient, ordering diagnostic workup, counseling patient and documenting in the chart Orders: Orders Complete Blood Count Auto Diff 3 Months M05.9 - Rheumatoid arthritis with rheumatoid factor, unspecified Comprehensive Met. Panel 3 Months M05.9 - Rheumatoid arthritis with rheumatoid factor, unspecified C Reactive Protein 3 Months M05.9 - Rheumatoid arthritis with rheumatoid factor, unspecified Erythrocyte Sedimentation Rate 3 Months M05.9 - Rheumatoid arthritis with rheumatoid factor, unspecified Medications: Changed From tramadol 50 mg PO BID PRN 60 tabs 0RF pain M19.011 - Primary osteoarthritis, right shoulder, M19.012 - Primary osteoarthritis, left shoulder To tramadol 50 mg PO DAILY PRN 15 tabs 2RF pain M19.011 - Primary osteoarthritis, right shoulder, M19.012 - Primary osteoarthritis, left shoulder Coding Level of Care Code Est Pt Level 5 (45079) Complex EM visit Add On G2211 Diagnoses Seropositive rheumatoid arthritis M05.9 prison use of drug Z79.899 Murmur, cardiac R01.1 Age-related osteoporosis without current pathological fracture M81.0 Osteoporosis type: age-related Presence of current pathological fracture: without current pathological fracture 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 Gout site: foot Gout etiology: idiopathic Chronicity: chronic Laterality: right Presence of tophus: without tophus
[2024-05-20 13:41] VITALS: BP 112/60; PULSE 92; O2SAT 97; BMI 27.8
== END 2024-05-20 14:02 | disposition home or self-care (01) ==
PROVIDERS: PCP Internal Medicine; Visit Provider Student in an Organized Health Care Education/Training Program
DX: M05.79 Rheumatoid arthritis with rheumatoid factor of multiple sites without organ or systems involvement (principal); Z79.899 Other long term (current) drug therapy; R01.1 Cardiac murmur, unspecified; M81.0 Age-related osteoporosis without current pathological fracture; M1A.0710 Idiopathic chronic gout, right ankle and foot, without tophus (tophi)
CPT/HCPCS: 99215; G2211

== ENCOUNTER 2024-05-20 13:35 | Outpatient (REF) | payer MEDICARE, OTHER, SELFPAY ==
[2024-05-20 14:42] LABS: MANUAL DIFF FLAG NO
[2024-05-20 15:28] LABS: Basophils Absolute Auto 0.1 X10*3/uL (0.0-0.2); Basophils Percent Auto 1.3 % (0-2); Eosinophils Absolute Auto 0.4 X10*3/uL (0.0-0.4); Eosinophils Percent Auto 6.2 % (0-4); Hematocrit 34.1 % (37.0-47.0); Hemoglobin 11.1 g/dl (12.0-16.0); Imm Gran Abs Auto 0.06 X10*3/uL (0.00-0.03); Imm Gran Pct Auto 0.8 % (0.0-0.4); Lymphocytes Absolute Auto 1.5 X10*3/uL (1.2-4.9); Lymphocytes Percent Auto 20.4 % (20-40); Mean Corpuscular HGB Conc 32.6 g/dl (31.0-35.0); Mean Corpuscular Hemoglobin 29.8 pg (27.0-33.0); Mean Corpuscular Volume 91.4 fL (80.0-98.0); Mean Platelet Volume 9.5 fL (9.4-12.3); Monocytes Absolute Auto 0.5 X10*3/uL (0.1-1.2); Monocytes Percent Auto 6.7 % (2-11); Neutrophils Absolute Auto 4.6 x10*3/uL (2.0-8.3); Neutrophils Percent Auto 64.6 % (45-73); Platelet Count 236 X10*3/uL (160-400); Red Blood Count 3.73 X10*6/uL (4.20-5.50); White Blood Count 7.1 X10*3/uL (4.8-10.8)
[2024-05-20 15:58] LABS: Uric Acid 4.2 mg/dL (2.4-5.7)
[2024-05-20 15:59] LABS: Alanine Aminotransferase 25 U/L (0-31); Albumin Level 3.6 g/dL (3.5-5.0); Alkaline Phosphatase 96 U/L (39-117); Anion Gap 12 (12-20); Aspartate Amino Transferase 29 U/L (5-31); Bilirubin Total 0.2 mg/dL (0.0-1.0); Blood Urea Nitrogen 17 mg/dL (9-16); C Reactive Protein 0.38 mg/dL (< or = 0.50); Calcium 8.9 mg/dL (8.4-10.2); Carbon Dioxide 22 mmol/L (22-29); Chloride 112 mmol/L (96-108); Estimated Glomerular Filt Rate > 60; Glucose Random 111 mg/dL (60-115); Sodium 142 mmol/L (135-145); Total Protein 6.7 g/dL (6.5-8.0)
[2024-05-20 16:34] LABS: Erythrocyte Sedimentation Rate 19 MM/HR (0-20)
[2024-05-20 16:41] LABS: Appearance Urine Clear; Color Urine Yellow; Glucose Urine UA Negative (Negative); Leukocyte Esterase Urine Trace (Negative); Nitrite Urine Negative (Negative); PH 5.5 (5.0-9.0); UMIC TRIGGER UA YES; Urine Blood Negative (Negative); Urine Ketones Trace mg/dL (Negative); Urine Protein Negative (Neg-Trace)
[2024-05-20 16:49] LABS: Bacteria Urine None Seen (None Seen); Hyaline Casts Urine 0-2 /LPF (0-2); RBC Urine 0-2 /HPF (0-2); WBC Urine 0-5 /HPF (0-5)
[2024-05-21 04:48] LABS: HBS Num1 0.71 mIU/mL (0-7.99); HBc Num1 0.08 S/CO (0.00-0.79); HBsAGNum1 0.28 S/CO (0.00-0.99); Hepatitis A Antibody IgM 0.14 Index (0-0.79); Hepatitis B Core Antibody Nonreactive (Nonreactive); Hepatitis B Surface Antigen Negative (Negative); ~HepC Num1 0.07 S/CO (0.00-0.79); ~Hepatitis A Antibody IgM Nonreactive (Nonreactive); ~Hepatitis B Surface Antibody NONREACTIVE (Nonreactive); ~Hepatitis C Antibody Nonreactive (Nonreactive)
[2024-05-22 21:52] LABS: TS Negative Control Passed; TS Panel A 0; TS Panel B 1; TS Positive Control Passed; TSpotTB Negative (Negative)
== END 2024-05-20 13:36 | disposition home or self-care (01) ==
LOC: HO.LAB 13:35
PROVIDERS: Internal Medicine; Internal Medicine Rheumatology; PCP Internal Medicine; Visit Provider Student in an Organized Health Care Education/Training Program
DX: M05.9 Rheumatoid arthritis with rheumatoid factor, unspecified (principal); M1A.0710 Idiopathic chronic gout, right ankle and foot, without tophus (tophi); M81.0 Age-related osteoporosis without current pathological fracture; R01.1 Cardiac murmur, unspecified; M19.011 Primary osteoarthritis, right shoulder; M19.012 Primary osteoarthritis, left shoulder; M53.3 Sacrococcygeal disorders, not elsewhere classified; Z11.59 Encounter for screening for other viral diseases; Z72.89 Other problems related to lifestyle; Z11.7 Encounter for testing for latent tuberculosis infection; Z79.899 Other long term (current) drug therapy
CPT/HCPCS: 36415; 80053; 81001; 84550; 85025; 85652; 86140; 86481; 86704; 86706; 86709; 86803; 87340; 99212

== ENCOUNTER 2024-06-12 14:29 | Outpatient (AMB) | payer MEDICARE, OTHER, SELFPAY ==
[2024-06-12 14:33] VITALS: BP 132/64; PULSE 73; BMI 27.8
--- NOTE | 2024-06-12 14:33 | MHC.OFFVIS ---
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 Accompanied by: Self / Same As Patient Allergies alendronate sodium [From FOSAMAX] Allergy (Severe, Verified 04/04/24 10:52) ANAPHYLAXIS lisinopril [LISINOPRIL] Allergy (Severe, Verified 04/04/24 10:52) ANAPHYLAXIS, cough clarithromycin [CLARITHROMYCIN] Allergy (Intermediate, Verified 04/04/24 10:52) CONFUSION, sores on tongue, dry mouth simvastatin [SIMVASTATIN] Allergy (Mild, Verified 04/04/24 10:52) DRY THROAT, achy, confusion Medication List - Last Reconciled 06/12/24 by Jhoan Taylor MD acetaminophen 325 mg PO Q6H allopurinol 100 mg PO DAILY aspirin 81 mg PO DAILY atorvastatin 40 mg PO DAILY bisacodyl 5 mg PO DAILY calcium carbonate-vitamin D3 600 mg-5 mcg (200 unit) 1 tab PO DAILY carboxymethylcellulose sodium 1% (Artificial Tears (carboxymethylcellulose)) 1 drp ophthalmic-Left QID PRN clopidogrel (Plavix) 75 mg PO DAILY clotrimazole 10 mg PO TID PRN [CMF Bone Stimulator As directed] denosumab (Prolia) 60 mg subcut [id number] folic acid 1 mg PO DAILY lactulose 20 grams (30 mL) PO QID PRN meclizine 25 mg PO TID PRN meloxicam 15 mg PO DAILY methotrexate sodium 20 mg (8 x 2.5 mg) PO QWEEK metoprolol succinate ER 25 mg PO DAILY montelukast 10 mg PO BEDTIME multivitamin 1 tab PO DAILY pantoprazole 20 mg PO DAILY prednisone 2 mg (2 x 1 mg) PO DAILY ropinirole 3 mg PO DAILY@1800 sertraline 25 mg PO DAILY tramadol 50 mg PO DAILY PRN vitamin B complex (B Complex-Vitamin B12 tablet) 1 tab PO DAILY HPI Comments Details: 84-year-old female who is referred to us for aortic valve stenosis. She has known history of rheumatoid arthritis, hypertension, hyperlipidemia and previous TIA. She has been on aspirin Plavix. She has gastroesophageal reflux and takes pantoprazole with improvement in his symptoms. She has fairly severe arthritis which limits her mobility. She is denying any significant chest discomfort or shortness of breath. She has bronchial asthma and at times when she has asthma attack she gets short of breath but generally denying any shortness of breath with activities. Echocardiography reviewed which is showing mild aortic valve stenosis. LV function is preserved. She has been on aspirin and Plavix for previous TIA. No reported bleeding concerns. Labs reviewed. [facility] Medical History Meniere disease Transient ischemic attack (TIA) Osteoarthritis of shoulders, bilateral Rheumatoid arthritis Osteoarthritis of carpometacarpal (CMC) joint of right thumb Overweight (BMI 25.0-29.9) High cholesterol Hypertension Thrush, oral Nondisplaced fracture of fifth metatarsal bone, left foot, subsequent encounter for fracture with nonunion Seropositive rheumatoid arthritis Fracture of 5th metatarsal Fracture of fifth metatarsal bone of right foot Polymyalgia rheumatica Anxiety and depression Osteoarthritis Lumbar degenerative disc disease Osteoporosis Gout Restless leg syndrome Hypergammaglobulinemia GERD (gastroesophageal reflux disease) Seizure disorder Hypertension Hypercholesterolemia Asthma Peripheral neuropathy Rheumatoid arthritis Surgical History Corneal transplant status History of arthroplasty of right hip History of total abdominal hysterectomy History of corneal transplant H/O left knee surgery History of open reduction and internal fixation (ORIF) procedure History of cholecystectomy History of appendectomy Family History Father CVD (cardiovascular disease) Mother No problems noted. Social History Household Members: Significant Other Household Members Other:: parter Housing: House Do you presently have visiting nurse or other home services: No Alcohol intake: current Alcohol intake frequency: holidays/special occasions only Alcohol type: wine Comment: patient uses call light appropriately Patient Tobacco Use Status: Never used Tobacco e-Cigarette/Vaping Use: Never Used Second Hand Smoke Exposure: No Advance Directives Date on File: 07/11/23 service: No Current occupational status: retired Cognitive needs: No Hearing needs: Yes Vision needs: Yes Review of Systems Const Denies chills, Denies fatigue, Denies fever(s), Denies frequent falls, Denies weakness, Denies weight gain and Denies weight loss ENT Denies dizziness Card Denies chest pain, Denies leg edema, Denies lightheadedness, Denies palpitations, Denies dyspnea and Denies dyspnea on exertion Resp Denies cough, Denies dyspnea and Denies dyspnea on exertion GI Denies hematochezia Musc Denies abnormal gait, Denies muscle weakness, Denies numbness, Denies radiating pain into limb and Denies tingling Neuro Denies abnormal gait, Denies dizziness, Denies frequent falls, Denies numbness, Denies tingling and Denies weakness Endo Denies fatigue and Denies palpitations Physical Exam Vital Signs: Last Vital Signs Pulse 73 06/12/24 14:33 BP 132/64 06/12/24 14:33 BMI result Body Mass Index 27.8 GENERAL APPEARANCE: in no acute distress, pleasant. NECK: no carotid bruit, no jugular venous distention. SKIN: no suspicious lesions, warm and dry. HEART: Systolic murmur with preserved 2nd heart sound, regular rate and rhythm. LUNGS: clear to auscultation bilaterally. ABDOMEN: soft, nontender. EXTREMITIES: no edema. PERIPHERAL PULSES: equal. NEUROLOGIC: No gross deficits, AAO X 3 Office Procedures EKG Details: Normal sinus rhythm 73 beats per minute, normal axis, QTC 438 milliseconds. [id number], Complete Assessment & Plan Assessment & Plan (1) Aortic stenosis, mild: Code(s): I35.0 - Nonrheumatic aortic (valve) stenosis Category: Medical (2) Hypertension: Code(s): I10 - Essential (primary) hypertension Category: Medical Qualifiers: Hypertension type: essential hypertension Qualified Code(s): I10 - Essential (primary) hypertension (3) Hypercholesterolemia: Code(s): E78.00 - Pure hypercholesterolemia, unspecified Category: Medical Plan Pleasant 84 year female who is here for 1st office visit. She has mild aortic valve stenosis by echocardiography. This needs monitoring and she will need repeat echocardiography in 2 years or so. I have advised her to follow up with us once a year. Blood pressure is well controlled currently. She is taking metoprolol succinate 25 mg daily. She previously had TIA and is on aspirin and Plavix. After few month aspirin uses optional and she has GI upset which is likely due to aspirin. She also is taking other NSAIDs like meloxicam. In my opinion aspirin can be stopped and she can stay on Plavix monotherapy. She will discuss this with Dr. Vides on follow-up. Lipid panel reviewed and LDL was 5.1, HDL 44, total cholesterol 125 and triglycerides 150. She should continue atorvastatin 40 mg daily. She will see us back in a year. We will repeat echocardiography in 2 years. Thank you for allowing me to participate in the care of your patient. Please feel free to contact me if you have any questions. Coding Level of Care Code New Pt Level 4 (70958) Diagnoses Aortic stenosis, mild I35.0 Essential hypertension I10 Hypertension type: essential hypertension Hypercholesterolemia E78.00 CPT Codes EKG - CPT: 89149-[id number], Complete ([id number])
== END 2024-06-12 15:02 | disposition home or self-care (01) ==
PROVIDERS: PCP Internal Medicine; Visit Provider Internal Medicine Cardiovascular Disease
DX: I35.0 Nonrheumatic aortic (valve) stenosis (principal); I10 Essential (primary) hypertension; E78.00 Pure hypercholesterolemia, unspecified
CPT/HCPCS: 93010; 99214

== ENCOUNTER → 2024-06-12 14:29 | Outpatient (BNVA) | payer MEDICARE, OTHER, SELFPAY | PROVIDERS: PCP Internal Medicine; Visit Provider Internal Medicine Cardiovascular Disease | DX: I35.0 Nonrheumatic aortic (valve) stenosis (principal); I10 Essential (primary) hypertension; E78.00 Pure hypercholesterolemia, unspecified | CPT/HCPCS: 93005; 99212 ==

== ENCOUNTER 2024-08-14 13:40 | Outpatient (REF) | payer MEDICARE, OTHER, SELFPAY ==
[2024-08-14 14:06] LABS: MANUAL DIFF FLAG NO
[2024-08-14 15:11] LABS: Appearance Urine Clear; Color Urine Yellow; Glucose Urine UA Negative (Negative); Leukocyte Esterase Urine Small (1+) (Negative); Nitrite Urine Negative (Negative); UMIC TRIGGER UA YES; Urine Blood Negative (Negative); Urine Ketones Negative (Negative); Urine Protein Negative (Neg-Trace)
[2024-08-14 15:24] LABS: Basophils Absolute Auto 0.1 X10*3/uL (0.0-0.2); Basophils Percent Auto 1.3 % (0-2); Eosinophils Absolute Auto 0.3 X10*3/uL (0.0-0.4); Eosinophils Percent Auto 4.2 % (0-4); Hematocrit 36.3 % (37.0-47.0); Hemoglobin 11.9 g/dl (12.0-16.0); Imm Gran Abs Auto 0.04 X10*3/uL (0.00-0.03); Imm Gran Pct Auto 0.6 % (0.0-0.4); Lymphocytes Absolute Auto 1.3 X10*3/uL (1.2-4.9); Lymphocytes Percent Auto 18.6 % (20-40); Mean Corpuscular HGB Conc 32.8 g/dl (31.0-35.0); Mean Corpuscular Hemoglobin 31.2 pg (27.0-33.0); Monocytes Absolute Auto 0.2 X10*3/uL (0.1-1.2); Monocytes Percent Auto 2.9 % (2-11); Neutrophils Absolute Auto 5.2 x10*3/uL (2.0-8.3); Neutrophils Percent Auto 72.4 % (45-73); Platelet Count 296 X10*3/uL (160-400); Red Blood Count 3.82 X10*6/uL (4.20-5.50); Red Cell Distribution Width 14.4 % (11.0-16.0); White Blood Count 7.2 X10*3/uL (4.8-10.8)
[2024-08-14 15:32] LABS: Bacteria Urine None Seen (None Seen); Hyaline Casts Urine 0-2 /LPF (0-2); RBC Urine 0-2 /HPF (0-2); WBC Urine 0-5 /HPF (0-5)
[2024-08-14 15:48] LABS: Alanine Aminotransferase 35 U/L (0-31); Albumin Level 3.9 g/dL (3.5-5.0); Alkaline Phosphatase 101 U/L (39-117); Anion Gap 13 (12-20); Aspartate Amino Transferase 42 U/L (5-31); Bilirubin Total 0.4 mg/dL (0.0-1.0); Blood Urea Nitrogen 17 mg/dL (9-16); C Reactive Protein 2.02 mg/dL (< or = 0.50); Calcium 9.6 mg/dL (8.4-10.2); Carbon Dioxide 21 mmol/L (22-29); Chloride 108 mmol/L (96-108); Estimated Glomerular Filt Rate > 60; Glucose Random 84 mg/dL (60-115); Magnesium 2.2 mg/dL (1.6-2.6); Potassium 4.1 mmol/L (3.3-5.1); Sodium 138 mmol/L (135-145); Total Protein 7.2 g/dL (6.5-8.0)
[2024-08-14 15:58] LABS: Free T4 (Free Thyroxine) 0.88 ng/dL (0.71-1.85)
[2024-08-14 16:16] LABS: Erythrocyte Sedimentation Rate 23 MM/HR (0-20)
[2024-08-19 17:24] LABS: Vitamin D 25-OH, D2 <4 ng/mL; Vitamin D 25-OH, D3 36 ng/mL; Vitamin D 25-OH, Total 36 ng/mL (30-100)
== END 2024-08-14 13:41 | disposition home or self-care (01) ==
LOC: HO.LAB 13:40
PROVIDERS: Absent Provider Student in an Organized Health Care Education/Training Program; PCP Internal Medicine; Visit Provider Internal Medicine
DX: M35.3 Polymyalgia rheumatica (principal); M05.9 Rheumatoid arthritis with rheumatoid factor, unspecified; E55.9 Vitamin D deficiency, unspecified
CPT/HCPCS: 36415; 80053; 81001; 82306; 83735; 84439; 85025; 85652; 86140

== ENCOUNTER 2024-08-15 13:51 | Outpatient (AMB) | payer MEDICARE, OTHER, SELFPAY ==
--- NOTE | 2024-08-15 13:54 | A.OFFPC_ITS ---
Vital Signs 08/15/24 13:55 Height 57 ft Weight 179 lb 6 oz BMI 0.3 BP 110/68 Blood Pressure Location Lt brachial Position Sitting Pulse 80 Pulse Source Pulse Oximeter Pulse Oximetry (%) 96 Oxygen Delivery Method Room Air Intake Visit Reasons: 3mth f/u Intake Note: Patient is here to follow up on RA, HTN, GERD, Asthma. Audio Engineer Required: No Commercial Pilot: Not Required per policy Accompanied by: Self / Same As Patient Allergies alendronate sodium [From FOSAMAX] Allergy (Severe, Verified 08/15/24 13:55) ANAPHYLAXIS lisinopril [LISINOPRIL] Allergy (Severe, Verified 08/15/24 13:55) ANAPHYLAXIS, cough clarithromycin [CLARITHROMYCIN] Allergy (Intermediate, Verified 08/15/24 13:55) CONFUSION, sores on tongue, dry mouth simvastatin [SIMVASTATIN] Allergy (Mild, Verified 08/15/24 13:55) DRY THROAT, achy, confusion Tobacco use date assessed: 08/15/24 Fall risk assessment: 1 Fall in past year Last assessed Fall Risk: 08/15/24 Dental Screening Dental Screen Date: 01/10/24 HPI 3mth f/u HPI Details 84-year-old female with a history of ast hma hypercholesterolemia hypertension GERD osteoporosis rheumatoid arthritis polymyalgia rheumatica and generalized anxiety disorder last seen in 03/25/2024. Review of the notes has seen Cardiology in June 12 for the aortic stenosis patient is on Plavix to previously. Patient has good on the pantoprazole echocardiogram was done showing aortic valve stenosis. And advised repeat echocardiogram in 2 years. Cardiology advise to stop aspirin and to stay and Plavix. Patient's cholesterol is good with the atorvastatin 40 mg once a day. Patient also follows up with Rheumatology seen in 05/20/2024 treated with methotrexate 15-20 mg weekly. Patient also on prednisone 2 mg once a day and for the osteoporosis on Prolia as for the gout patient was advised to decrease allopurinol dose. complains of confusion, MMT 29/30 , dicsssued about anxiety and advised counselling. Patient also complains of her left elbow pain denies any fall or trauma. [facility] Medical History (Updated 08/15/24 @ 14:43 by Renetta Vides MD) Pre-op chest exam Pre-op examination Meniere disease Transient ischemic attack (TIA) Osteoarthritis of shoulders, bilateral Rheumatoid arthritis Osteoarthritis of carpometacarpal (CMC) joint of right thumb Overweight (BMI 25.0-29.9) High cholesterol Hypertension Thrush, oral Nondisplaced fracture of fifth metatarsal bone, left foot, subsequent encounter for fracture with nonunion Seropositive rheumatoid arthritis Fracture of 5th metatarsal Fracture of fifth metatarsal bone of right foot Polymyalgia rheumatica Anxiety and depression Osteoarthritis Lumbar degenerative disc disease Osteoporosis Gout Restless leg syndrome Hypergammaglobulinemia GERD (gastroesophageal reflux disease) Seizure disorder Hypertension Hypercholesterolemia Asthma Peripheral neuropathy Rheumatoid arthritis Surgical History Corneal transplant status History of arthroplasty of right hip History of total abdominal hysterectomy History of corneal transplant H/O left knee surgery History of open reduction and internal fixation (ORIF) procedure History of cholecystectomy History of appendectomy Family History Father CVD (cardiovascular disease) Mother No problems noted. Social History Household Members: Significant Other Household Members Other:: parter Housing: House Do you presently have visiting nurse or other home services: No Alcohol intake: current Alcohol intake frequency: holidays/special occasions only Alcohol type: wine Comment: patient uses call light appropriately Patient Tobacco Use Status: Never used Tobacco e-Cigarette/Vaping Use: Never Used Second Hand Smoke Exposure: No Advance Directives Date on File: 07/11/23 service: No Current occupational status: retired Cognitive needs: No Hearing needs: Yes Vision needs: Yes Questionnaire Thrive Questionnaire Date Thrive assessed: 04/04/24 Are you currently unemployed and looking for a job?: No LIYA-7 AMB Questionnaire LIYA-7 Date LIYA - 7 assessed: 12/20/23 Source: Developed by Drs. Montana Salmon, Annalise Muse, Chris Montana and colleagues, with an educational shiela from [employer]. Physical exam (Primary Care) Vital Signs: Last Vital Signs Pulse 80 08/15/24 13:55 BP 110/68 08/15/24 13:55 Pulse Ox 96 08/15/24 13:55 Oxygen Delivery Method Room Air 08/15/24 13:55 BMI result Body Mass Index 0.3 Tobacco/Smoking Status: Tobacco use Status Tobacco use date assessed 08/15/24 08/15/24 13:59 Patient Tobacco Use Status Never used Tobacco 08/15/24 13:59 e-Cigarette/Vaping Use Never Used 08/15/24 13:59 Thrive Assessment: Date of Thrive Assessment Date Thrive assessed 04/04/24 08/15/24 13:59 Const General: alert; No acute distress Eyes Conjunctivae: conjunctivae normal Resp Auscultation: clear to auscultation bilaterally Cardio Rate: regular rate Rhythm: regular rhythm GI Inspection: Yes normal to inspection Extrem General: Yes normal to inspection and No edema Office Procedures Flu Questionnaire Does the patient have a severe egg allergy?: No Does the patient have severe life threatening allergies?: No Does the patient have a fever or illness today?: No Has the patient ever had Guillain-Leasburg Syndrome?: No Has the patient ever had any past reaction to a flu shot?: No Immunizations Fluarix Triv 8227-0807 (PF) 45 mcg (15 mcg x 3)/0.5 mL IM syringe Performing Provider: Renetta Vides MD Performing [facility] [place] [facility] Administered by: GIUSEPPE Erickson on 08/15/24 14:24 Dose Route Admin Location Dispensed Lot Number Expiration Date [facility] Calender Inspector 0.5 mL IM Left Deltoid 0.5 mL [id number] 05/05/25 99190-924-29 [facility] VIS Given Date VIS Provided VIS Publication Date 08/15/24 Single Vaccine 21 Eligibility Eligibility Date Funding Source Not [facility] Eligible 08/15/24 Private Coding Level of Care Code Est Pt Level 4 (49076) Diagnoses Aortic stenosis, mild I35.0 Generalized anxiety disorder F41.1 Transient ischemic attack (TIA) G45.9 High cholesterol E78.00 Seropositive rheumatoid arthritis M05.9 Age-related osteoporosis without current pathological fracture M81.0 Osteoporosis type: age-related Presence of current pathological fracture: without current pathological fracture 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 Chronicity: chronic Gout etiology: idiopathic Gout site: foot Laterality: right Presence of tophus: without tophus Essential hypertension I10 Hypertension type: essential hypertension Hypercholesterolemia E78.00 Mild intermittent asthma without complication J45.20 Asthma complication type: uncomplicated Asthma persistence: intermittent Asthma severity: mild Gastroesophageal reflux disease without esophagitis K21.9 Esophagitis presence: without esophagitis Elbow pain, left M25.522 Assessment & Plan Assessment & Plan (1) Aortic stenosis, mild: Code(s): I35.0 - Nonrheumatic aortic (valve) stenosis Category: Medical Plan: Patient has seen Cardiology and has been advised to monitor this with echocardiogram in 2 years. (2) Generalized anxiety disorder: Comment: Declined referral for counseling May 2023 Code(s): F41.1 - Generalized anxiety disorder Category: Medical Plan: Continue with present medication (3) Transient ischemic attack (TIA): Comment: ER July 2023 with left-sided weakness Code(s): G45.9 - Transient cerebral ischemic attack, unspecified Category: Medical Plan: Continue with Plavix (4) High cholesterol: Code(s): E78.00 - Pure hypercholesterolemia, unspecified Category: Medical Plan: Avoid fried foods, chicken skin, eggs, butter margarine, pastries and meat. Be it pork or beef they have a lot of cholesterol on atorvastatin 40 mg once a (5) Seropositive rheumatoid arthritis: Comment: Methotrexate - 2016-present Xeljanx 11/2019-06/2020 Humira 10/2018-02/2019 Simponi Aria infusions- January 2016 Remicade 08/2014-01/2015 Enbrel - prior to 2013 Code(s): M05.9 - Rheumatoid arthritis with rheumatoid factor, unspecified Category: Medical Plan: Presently on methotrexate and continue to follow-up with Rheumatology (6) Osteoporosis: Comment: Boniva: 2011 to 2019. Alendronate: experienced anaphylaxis patient cannot recall what happened with this. Prolia recommended, January 2022. Patient received a dose 04/2023 Bone density 01/23/2022 Code(s): M81.0 - Age-related osteoporosis without current pathological fracture Category: Medical Qualifiers: Osteoporosis type: age-related Presence of current pathological fracture: without current pathological fracture Qualified Code(s): M81.0 - Age- related osteoporosis without current pathological fracture Plan: Patient is being monitored by Rheumatology and bone density done recently. (7) Gout: Code(s): M10.9 - Gout, unspecified Category: Medical Qualifiers: Chronicity: chronic Gout etiology: idiopathic Gout site: foot Laterality: right Presence of tophus: without tophus Qualified Code(s): M1A.0710 - Idiopathic chronic gout, right ankle and foot, without tophus (tophi) Plan: Keep well hydrated has been advised to decrease allopurinol. (8) Hypertension: Code(s): I10 - Essential (primary) hypertension Category: Medical Qualifiers: Hypertension type: essential hypertension Qualified Code(s): I10 - Essential (primary) hypertension Plan: Continue with blood pressure medication. Decrease salt intake and exercise on metoprolol 25 mg once a day (9) Hypercholesterolemia: Code(s): E78.00 - Pure hypercholesterolemia, unspecified Category: Medical Plan: Avoid fried foods, chicken skin, eggs, butter margarine, pastries and meat. Be it pork or beef they have a lot of cholesterol on atorvastatin 40 mg once a day (10) Asthma: Code(s): J45.909 - Unspecified asthma, uncomplicated Category: Medical Qualifiers: Asthma complication type: uncomplicated Asthma persistence: intermittent Asthma severity: mild Qualified Code(s): J45.20 - Mild intermittent asthma, uncomplicated Plan: Continue with the inhaler as needed (11) GERD (gastroesophageal reflux disease): Code(s): K21.9 - Gastro-esophageal reflux disease without esophagitis Category: Medical Qualifiers: Esophagitis presence: without esophagitis Qualified Code(s): K21.9 - Gastro-esophageal reflux disease without esophagitis Plan: Avoid the foods that causes that usually spicy foods, tomato products, juices, coffee, soda and foods that your sensitive to. After eating do not lie down, allow 3-4 hours before in lie down. And keep the head of bed above 30 degrees to avoid the acid from going up. (12) Elbow pain, left: Code(s): M25.522 - Pain in left elbow Category: Medical Plan: X-rays requested Orders: Orders Influenza [id number] Immunization Today Z23 - Encounter for immunization XR elbow LT min 3V Today M25.522 - Pain in left elbow Referrals Psychiatry Outpatient Consultation Service F41.1 - Generalized anxiety disorder Medications: Discontinued aspirin Discontinued Reason: Doctor's Order 81 mg PO DAILY 90 tabs 1RF G45.9 - Transient cerebral ischemic attack, unspecified
[2024-08-15 13:55] VITALS: BP 110/68; PULSE 80; O2SAT 96
== END 2024-08-15 14:50 | disposition home or self-care (01) ==
PROVIDERS: PCP Internal Medicine; Visit Provider Internal Medicine
DX: I35.0 Nonrheumatic aortic (valve) stenosis (principal); M05.9 Rheumatoid arthritis with rheumatoid factor, unspecified; F41.1 Generalized anxiety disorder; G45.9 Transient cerebral ischemic attack, unspecified; E78.00 Pure hypercholesterolemia, unspecified; M81.0 Age-related osteoporosis without current pathological fracture; M1A.0710 Idiopathic chronic gout, right ankle and foot, without tophus (tophi); I10 Essential (primary) hypertension; J45.20 Mild intermittent asthma, uncomplicated; K21.9 Gastro-esophageal reflux disease without esophagitis; M25.522 Pain in left elbow

== ENCOUNTER → 2024-08-15 13:51 | Outpatient (BNVA) | payer MEDICARE, OTHER, SELFPAY | PROVIDERS: PCP Internal Medicine; Visit Provider Internal Medicine | DX: Z23 Encounter for immunization (principal); I35.0 Nonrheumatic aortic (valve) stenosis; F41.1 Generalized anxiety disorder; E78.00 Pure hypercholesterolemia, unspecified; G45.9 Transient cerebral ischemic attack, unspecified; M05.9 Rheumatoid arthritis with rheumatoid factor, unspecified; M81.0 Age-related osteoporosis without current pathological fracture; M1A.0710 Idiopathic chronic gout, right ankle and foot, without tophus (tophi); I10 Essential (primary) hypertension; J45.20 Mild intermittent asthma, uncomplicated; K21.9 Gastro-esophageal reflux disease without esophagitis; M25.522 Pain in left elbow | CPT/HCPCS: 90471; 90656; 99212 ==

== ENCOUNTER 2024-08-28 13:33 | Outpatient (AMB) | payer MEDICARE, OTHER, SELFPAY ==
--- NOTE | 2024-08-28 13:41 | MHC.OFFVIS ---
Vital Signs 08/28/24 13:48 Height 5 ft 7 in Weight 179 lb 7.3 oz BMI 28.1 BP 122/60 Blood Pressure Location Rt brachial Position Sitting Pulse 79 Pulse Source Pulse Oximeter Pulse Oximetry (%) 95 Oxygen Delivery Method Room Air Intake Visit Reasons: RA follow/ osteoporosis prolia inj Intake Note: Patient presents for RA/Osteoporosis and Prolia injection. Allergies alendronate sodium [From FOSAMAX] Allergy (Severe, Verified 08/28/24 13:47) ANAPHYLAXIS lisinopril [LISINOPRIL] Allergy (Severe, Verified 08/28/24 13:47) ANAPHYLAXIS, cough clarithromycin [CLARITHROMYCIN] Allergy (Intermediate, Verified 08/28/24 13:47) CONFUSION, sores on tongue, dry mouth simvastatin [SIMVASTATIN] Allergy (Mild, Verified 08/28/24 13:47) DRY THROAT, achy, confusion Medication List - Last Reconciled 08/28/24 by Dario Campuzano MD acetaminophen 325 mg PO Q6H allopurinol 100 mg PO DAILY atorvastatin 40 mg PO DAILY bisacodyl 5 mg PO DAILY calcium carbonate-vitamin D3 600 mg-5 mcg (200 unit) 1 tab PO DAILY carboxymethylcellulose sodium 1% (Artificial Tears (carboxymethylcellulose)) 1 drp ophthalmic-Left QID PRN clopidogrel (Plavix) 75 mg PO DAILY clotrimazole 10 mg PO TID PRN [CMF Bone Stimulator As directed] denosumab (Prolia) 60 mg subcut [id number] folic acid 1 mg PO DAILY lactulose 20 grams (30 mL) PO QID PRN meclizine 25 mg PO TID PRN meloxicam 15 mg PO DAILY methotrexate sodium 20 mg (8 x 2.5 mg) PO QWEEK metoprolol succinate ER 25 mg PO DAILY montelukast 10 mg PO BEDTIME multivitamin 1 tab PO DAILY pantoprazole 20 mg PO DAILY prednisone 2 mg (2 x 1 mg) PO DAILY ropinirole 3 mg PO DAILY@1800 sertraline 25 mg PO DAILY tramadol 50 mg PO DAILY PRN vitamin B complex (B Complex-Vitamin B12 tablet) 1 tab PO DAILY HPI Comments Details: This is an 84-year-old female with seropositive rheumatoid arthritis, osteoporosis who presents for follow-up. She states that she has not been doing well recently. She increased her methotrexate to 20 mg weekly. Without any improvement. She is actually doing worse. Ongoing joint pains. Swelling of her hands, wrists, ankles, low back pain. Denies any recent infections or fevers Most recent history by Dr. Wolff 06/2023: The patient returns for evaluation of her rheumatoid arthritis. She was last seen by Nenita in March. She remains on methotrexate 15 mg weekly, meloxicam 15 mg daily, tramadol 50 mg b.i.d., folic acid 1 mg daily, allopurinol 100 mg daily, and prednisone 2 mg daily. Overall she says she has a fair amount of pain. This involves mostly the lower back but also the hands, feet and left shoulder. She received the Prolia injection for osteoporosis in April and there is another injection planned in early October. That was apparently tolerated well. She is on the allopurinol 100 mg daily for presumed gout but does not really have a clear history that she had a gout attack. She had foot pain and it was assumed it was gout. In any case she has been on it for while with good control of hyperuricemia and no attacks of gout have been recalled. She also was thought to have PMR although I think but they are treating use the RA rather than the PMR. However she does take an occasional extra 5 mg prednisone a feels a bit better. Mostly this is for her left shoulder and back pain. [facility] Medical History Pre-op chest exam Pre-op examination Meniere disease Transient ischemic attack (TIA) Osteoarthritis of shoulders, bilateral Rheumatoid arthritis Osteoarthritis of carpometacarpal (CMC) joint of right thumb Overweight (BMI 25.0-29.9) High cholesterol Hypertension Thrush, oral Nondisplaced fracture of fifth metatarsal bone, left foot, subsequent encounter for fracture with nonunion Seropositive rheumatoid arthritis Fracture of 5th metatarsal Fracture of fifth metatarsal bone of right foot Polymyalgia rheumatica Anxiety and depression Osteoarthritis Lumbar degenerative disc disease Osteoporosis Gout Restless leg syndrome Hypergammaglobulinemia GERD (gastroesophageal reflux disease) Seizure disorder Hypertension Hypercholesterolemia Asthma Peripheral neuropathy Rheumatoid arthritis Surgical History Corneal transplant status History of arthroplasty of right hip History of total abdominal hysterectomy History of corneal transplant H/O left knee surgery History of open reduction and internal fixation (ORIF) procedure History of cholecystectomy History of appendectomy Family History Father CVD (cardiovascular disease) Mother No problems noted. Social History Household Members: Significant Other Household Members Other:: parter Housing: House Do you presently have visiting nurse or other home services: No Alcohol intake: current Alcohol intake frequency: holidays/special occasions only Alcohol type: wine Comment: patient uses call light appropriately Patient Tobacco Use Status: Never used Tobacco e-Cigarette/Vaping Use: Never Used Second Hand Smoke Exposure: No Advance Directives Date on File: 07/11/23 service: No Current occupational status: retired Cognitive needs: No Hearing needs: Yes Vision needs: Yes Review of Systems Musc Reports back pain, Reports arthralgias, Reports joint swelling and Reports stiffness Physical Exam Vital Signs: Last Vital Signs Pulse 79 08/28/24 13:48 BP 122/60 08/28/24 13:48 Pulse Ox 95 08/28/24 13:48 Oxygen Delivery Method Room Air 08/28/24 13:48 BMI result Body Mass Index 28.1 Const General: cooperative, healthy appearing and comfortable Nutritional Appearance: overweight Orientation/consciousness: patient oriented x3 Limitations: no limitations HEENT Head: Yes normocephalic and Yes atraumatic Mouth: moist mucous membranes Resp Effort & Inspection: normal respiratory effort and able to speak in complete sentences Cardio Rate: regular rate Rhythm: regular rhythm Heart sounds: Murmur heart sound present systolic at the right sternal border Neuro General: patient oriented x3 Extrem Other: Significant osteoarthritic changes of both hands Bilateral wrist tenderness and pain with flexion and extension Multiple tender MCPs left hand Positive MCP squeeze test on the left Left 2nd 3rd and 4th PIP swelling and tenderness Right 2nd and 3rd PIP swelling and tenderness Right elbow pain with full extension Normal range of motion of shoulders without pain Bilateral lower limb edema Diffuse tenderness both legs ankles and feet (likely neuropathic) Office Meds Prolia 60 mg/mL subcutaneous syringe Performing Provider: Dario Campuzano MD Performing Location: [facility] [place] [facility] Administered by: Dario Campuzano MD on 08/28/24 14:37 Dose Route Admin Location Dispensed Lot Number Expiration Date ND Finance Officer 60 mg subcut RT deltoid 1 mL [id number] 01/03/27 27289-695-90 [employer] Results Reviewed Results Reviewed: Ordering Physician: Renetta Vides MD Results: Date of Service: 05/17/24 Follow Up: Procedure(s): XR DEXA axial skeleton Accession Number(s): [id number] cc: Renetta Vides MD~ EXAMINATION: BONE DENSITOMETRY CLINICAL INDICATION: Age-related osteoporosis without current pathological fracture. COMPARISON: Previous BD dated 08/14/2019 and baseline BD dated 06/12/2008, spine. This is the patient's baseline examination for the left forearm radius 33%. Patient has had bilateral hip replacements. TECHNIQUE: Using a [employer] DXA System (software version: 13.1) manufactured by [employer], dual-energy x-ray absorptiometry was performed of the lumbar spine and left forearm radius 33%.. The images are of good technical quality. Summary results are attached. FINDINGS: AP SPINE L1-L4: Current: BMD 1.265 g/cm2, Z-score 2.2, T-score 0.7, normal, 6.4% increase from previous, 12.3% increase from baseline (<5% change is not significant). Prior: BMD 1.189 g/cm2. Baseline: BMD 1.126 g/cm2. LEFT FOREARM RADIUS 33%: BMD 0.569 g/cm2, Z-score -0.3, T-score -3.5, osteoporosis. IDENTIFIED RISK FACTORS: Early menopause, secondary osteoporosis, rheumatoid arthritis, osteoporosis, low calcium intake, hysterectomy, bilateral oophorectomy. HISTORY OF FRACTURE: None listed. MEDICATIONS: Calcium supplements or multivitamin, vitamin D. MM/XR DEXA axial skeleton IMPRESSION: 1. DIAGNOSIS: Osteoporosis based on the lowest T-score value of -3.5 in the forearm radius 33% applying World Health Organization criteria. Assessment & Plan Assessment & Plan (1) Seropositive rheumatoid arthritis: Comment: +RF++CCP Methotrexate - 2015-present Xeljanx 11/2019-06/2020 Humira 10/2018-02/2019 Simponi Aria infusions- January 2016 failed Remicade 08/2014-01/2015 failed Enbrel - prior to 2013 failed Code(s): M05.9 - Rheumatoid arthritis with rheumatoid factor, unspecified Category: Medical Plan: This is an 84-year-old female with seropositive RA who presents for follow-up. She is on methotrexate 20 mg weekly and prednisone 2 mg daily. Not doing well with multiple swollen and tender joints. Inflammatory markers are elevated. We will need to add DMARDs Patient tried and failed multiple TNF inhibitors. She tried and failed Xeljanz. Discussed risks and benefits of Orencia. Patient agreed to proceed. Will start prior authorization for Orencia Lower methotrexate to 15 mg p.o. 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 Methotrexate dose reduced as mentioned above (3) Osteoporosis: Comment: Forrest: 2011 to 2019. Alendronate: experienced anaphylaxis patient cannot recall what happened with this. Prolia recommended, January 2022. Patient received a dose 04/2023 Code(s): M81.0 - Age-related osteoporosis without current pathological fracture Category: Medical Qualifiers: Osteoporosis type: age-related Presence of current pathological fracture: without current pathological fracture Qualified Code(s): M81.0 - Age-related osteoporosis without current pathological fracture Plan: Patient received 1 dose of Prolia in April 2023, she was supposed to receive another 10/2023 however patient had multiple other medical problems and could not make her appointments. Discussed Prolia and potential risk of bone mass loss when missing those. She received her 2nd Prolia injection 02/2024. She received her 3rd Prolia injection in clinic today. Recent DEXA scan 05/2024 showed improved bone density. Continue with Prolia injection q.6 months Vitamin-D level not at target. Advised patient to double up (4) Gout: Code(s): M10.9 - Gout, unspecified Category: Medical Qualifiers: Gout site: foot Gout etiology: idiopathic Chronicity: chronic Laterality: right Presence of tophus: without tophus Qualified Code(s): M1A.0710 - Idiopathic chronic gout, right ankle and foot, without tophus (tophi) Plan: There is reported history of gout in the chart. Patient is on allopurinol 100 mg daily. Check uric acid level before next visit and consider lowering her allopurinol Plan I spent 45 minutes reviewing patient's chart, evaluating patient, ordering diagnostic workup, counseling patient and documenting in the chart Orders: Orders Complete Blood Count Auto Diff 3 Months M05.9 - Rheumatoid arthritis with rheumatoid factor, unspecified C Reactive Protein 3 Months M05.9 - Rheumatoid arthritis with rheumatoid factor, unspecified Comprehensive Met. Panel 3 Months M05.9 - Rheumatoid arthritis with rheumatoid factor, unspecified Erythrocyte Sedimentation Rate 3 Months M05.9 - Rheumatoid arthritis with rheumatoid factor, unspecified Uric Acid 3 Months M1A.0710 - Idiopathic chronic gout, right ankle and foot, without tophus (tophi) Vitamin D 25-OH (D2 and D3) 3 Months E55.9 - Vitamin D deficiency, unspecified AMB Denosumab Injection Patient Supplied Today M81.0 - Age-related osteoporosis without current pathological fracture Medications: New prednisone Take 3 tabs daily for 1 week then 2 tabs daily for 1 week then 1 tab daily for 1 week then stop 42 tabs 0RF Changed From methotrexate sodium Split dose into 4 tabs twice. 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
[2024-08-28 13:48] VITALS: BP 122/60; PULSE 79; O2SAT 95; BMI 28.1
== END 2024-08-28 14:25 | disposition home or self-care (01) ==
PROVIDERS: PCP Internal Medicine; Visit Provider Student in an Organized Health Care Education/Training Program
DX: M05.79 Rheumatoid arthritis with rheumatoid factor of multiple sites without organ or systems involvement (principal); Z79.899 Other long term (current) drug therapy; M81.0 Age-related osteoporosis without current pathological fracture; M1A.0710 Idiopathic chronic gout, right ankle and foot, without tophus (tophi)
CPT/HCPCS: 99215; G2211

== ENCOUNTER → 2024-08-28 13:33 | Outpatient (BNVA) | payer MEDICARE, OTHER, SELFPAY | PROVIDERS: PCP Internal Medicine; Visit Provider Student in an Organized Health Care Education/Training Program | DX: M05.9 Rheumatoid arthritis with rheumatoid factor, unspecified (principal); M81.0 Age-related osteoporosis without current pathological fracture; M1A.0710 Idiopathic chronic gout, right ankle and foot, without tophus (tophi); Z79.899 Other long term (current) drug therapy | CPT/HCPCS: 96372; 99212; J0897 ==

== ENCOUNTER 2024-09-09 14:11 | Emergency (ER) | payer MEDICARE, OTHER, SELFPAY ==
[2024-09-09 14:38] VITALS: BP 158/80; PULSE 89; RESP 18; TEMP 36.6; O2SAT 97; BMI 28.2
--- NOTE | 2024-09-09 14:45 | ED_ITS ---
HPI - General Adult General Chief complaint: Neck Pain/Injury Stated complaint: jaw pain back pain sore throat Time Seen by Provider: 09/09/24 16:56 Source: RN notes reviewed and old records reviewed History of Present Illness ED Provider: Tahira Martins PA-C HPI narrative: 84-year-old female with a past medical history of osteoarthritis, rheumatoid arthritis, HLD, HTN, polymyalgia rheumatica, anxiety, depression, osteoarthritis, gout, GERD, asthma, presenting to the ED complaining of right- sided jaw/facial pain radiating to ear and throat x 10 days. Admits symptoms started as sores on tongue which resolved/improved, now with residual pain. Reports pain worse with chewing/eating. Denies known injury, trauma/fall, difficulty or inability to swallow, ear pain, recent dental procedures, sore throat, CP/SOB Related Data Home Medications ?Medication ?Instructions ?Recorded ?Confirmed vitamin B complex (B 1 tab PO DAILY 09/04/20 06/12/24 Complex-Vitamin B12 tablet) carboxymethylcellulose sodium 1 % 1 drp ophthalmic-Left QID PRN Dry 07/11/23 06/12/24 eye drops (Artificial Tears Eyes (carboxymethylcellulose)) clotrimazole 10 mg abby 10 mg PO TID PRN fungal 11/28/23 06/12/24 Previous Rx's ?Medication ?Instructions ?Recorded [facility] Bone Stimulator #1 ea 10/09/20 bisacodyl 5 mg tablet,delayed 5 mg PO DAILY #1 tab 11/30/23 release lactulose 20 gram/30 mL oral 20 g (30 mL) PO QID PRN 11/30/23 solution constipation #1 mL acetaminophen 325 mg tablet 325 mg PO Q6H #1 tab 12/13/23 multivitamin 1 tab PO DAILY #90 tabs 12/21/23 sertraline 25 mg tablet 25 mg PO DAILY #90 tabs 12/22/23 meloxicam 15 mg tablet 15 mg PO DAILY #90 tabs 01/15/24 denosumab 60 mg/mL subcutaneous 60 mg subcut M5ANLLIA #1 mL 02/08/24 syringe (Prolia) pantoprazole 20 mg tablet,delayed 20 mg PO DAILY #90 tabs 04/04/24 release tramadol 50 mg tablet 50 mg PO DAILY PRN pain #15 tabs 05/20/24 allopurinol 100 mg tablet 100 mg PO DAILY #90 tabs 05/24/24 clopidogrel 75 mg tablet (Plavix) 75 mg PO DAILY #90 tabs 05/25/24 ropinirole 3 mg tablet 3 mg PO DAILY@1800 #90 tabs 06/18/24 prednisone 1 mg tablet 2 mg (2 x 1 mg) PO DAILY #60 tabs 07/12/24 atorvastatin 40 mg tablet 40 mg PO DAILY #30 tabs 08/06/24 folic acid 1 mg tablet 1 mg PO DAILY #90 tabs 08/06/24 metoprolol succinate 25 mg 25 mg PO DAILY #90 tabs 08/08/24 tablet,extended release 24 hr montelukast 10 mg tablet 10 mg PO BEDTIME #90 tabs 08/08/24 calcium carbonate 600 mg-vitamin 2 tab PO DAILY #180 tabs 08/28/24 D3 5 mcg (200 unit) tablet methotrexate sodium 2.5 mg tablet 15 mg (6 x 2.5 mg) PO QWEEK #72 08/28/24 tabs prednisone 5 mg tablet See Rx Instructions PO .COMPLEX 08/28/24 #42 tabs meclizine 25 mg tablet 25 mg PO TID PRN Nausea #60 tabs 09/04/24 acetaminophen 500 mg tablet 500 mg PO Q6H PRN fever or pain 09/09/24 (Tylenol Extra Strength) #14 tabs ibuprofen 800 mg tablet 800 mg PO Q8H PRN pain #14 tabs 09/09/24 lidocaine HCl 2 % mucosal solution 5 ml mucous membrane BID PRN mouth 09/09/24 (Lidocaine Viscous) pain #50 mL Allergies Allergy/AdvReac Type Severity Reaction Status Date / Time alendronate sodium Allergy Severe ANAPHYLAXIS Verified 09/09/24 14:41 [From FOSAMAX] lisinopril [LISINOPRIL] Allergy Severe ANAPHYLAXIS, Verified 09/09/24 14:41 cough clarithromycin Allergy Intermediate CONFUSION, Verified 09/09/24 14:41 [CLARITHROMYCIN] sores on tongue, dry mouth simvastatin [SIMVASTATIN] Allergy Mild DRY Verified 09/09/24 14:41 THROAT, achy, confusion Review of Systems Review of Systems: Yes all other systems are reviewed and are negative Constitutional: Constitutional: Reports as per [facility] Past Medical History Attestation statement: The following information was validated with the patient. Source: old records reviewed Medical History Pre-op chest exam Pre-op examination Meniere disease Transient ischemic attack (TIA) Osteoarthritis of shoulders, bilateral Rheumatoid arthritis Osteoarthritis of carpometacarpal (CMC) joint of right thumb Overweight (BMI 25.0-29.9) High cholesterol Hypertension Thrush, oral Nondisplaced fracture of fifth metatarsal bone, left foot, subsequent encounter for fracture with nonunion Seropositive rheumatoid arthritis Fracture of 5th metatarsal Fracture of fifth metatarsal bone of right foot Polymyalgia rheumatica Anxiety and depression Osteoarthritis Lumbar degenerative disc disease Osteoporosis Gout Restless leg syndrome Hypergammaglobulinemia GERD (gastroesophageal reflux disease) Seizure disorder Hypertension Hypercholesterolemia Asthma Peripheral neuropathy Rheumatoid arthritis Surgical History Corneal transplant status History of arthroplasty of right hip History of total abdominal hysterectomy History of corneal transplant H/O left knee surgery History of open reduction and internal fixation (ORIF) procedure History of cholecystectomy History of appendectomy Family History Family History Father CVD (cardiovascular disease) Mother No problems noted. Social History Social History Household Members: Significant Other Household Members Other:: parter Housing: House Do you presently have visiting nurse or other home services: No Alcohol intake: current Alcohol intake frequency: holidays/special occasions only Alcohol type: wine Comment: patient uses call light appropriately Patient Tobacco Use Status: Never used Tobacco e-Cigarette/Vaping Use: Never Used Second Hand Smoke Exposure: No Advance Directives: Yes Advance Directives on File: Yes Advance Directives Date on File: 07/11/23 service: No Current occupational status: retired Cognitive needs: No Hearing needs: Yes Vision needs: Yes Physical Exam ED Vital Signs: Vital Signs - 24 hr 09/09/24 14:38 09/09/24 18:04 09/09/24 18:24 Temperature 98 F 98.4 F 98.4 F Pulse Rate 89 79 79 Respiratory Rate 18 14 14 Blood Pressure 158/80 H 155/65 H 155/65 H Pulse Oximetry 97 99 99 Oxygen Delivery Method Room Air Room Air Room Air BMI result Body Mass Index 28.2 Const General: cooperative, healthy appearing and no acute distress Orientation/consciousness: patient oriented x3 Limitations: no limitations HENMT Other: + flat lesion noted to right side of tongue. No erythema, no ulceration, nontender. No drainage. No appreciable dental abscesses or tenderness. Posterior oropharynx WNL. No evidence of [employer] or retropharyngeal abscess. No facial swelling/cellulitis Mastoids WNL + mild TMJ tenderness with jaw opening Sinuses nontender Head: Yes normal to inspection and Yes atraumatic Ears: hearing grossly normal bilaterally, external ears normal, TM's normal bilaterally and mastoids normal General nose exam: Normal external nose present Face and sinus: Yes normal facial exam Mouth: Normal oral and palatal mucosa present and no drooling Teeth and gingiva: dentition normal Throat: Yes posterior oropharynx normal, Yes tonsils normal, Yes uvula midline, No peritonsillar mass, No uvula laterally displaced and No uvular edema Eyes General: appearance normal, both eyes and all related structures Pupils: Equal, round and reactive pupils present EOM: EOMs intact bilaterally Neck Neck: Yes normal visual inspection, Yes no meningeal signs, Yes supple, No anterior neck swelling and No torticollis Resp Effort & Inspection: normal respiratory effort and no respiratory distress Cardio Rate: regular rate Skin Rashes: no rashes Wounds: no wounds Neuro General: patient oriented x3, tone normal, moves all extremities, no meningeal signs and CN's II-XI intact bilaterally Cranial nerves: Yes CN's II-XII intact bilaterally and Yes Equal, round and r eactive pupils present Gait exam (Neuro): Normal gait present Extrem General: Yes normal to inspection Course Course Course Narrative: RME: Done by ALFIE Whitmore. 84-year-old female presents to ED for right-sided facial pain jaw pain and ear pain without any trauma. Patient states also resolved sores on the tongue. Patient denies any neck swelling, drooling, chest pain or shortness of breath. Physical exam negative for any facial swelling, erythema, signs of dental abscesses, trismus, or signs of peritonsillar abscess. Ear exam normal. Will do SARS and strep. Patient denies any history of of trigeminal neuralgia -Will refer patient to ENT -patient admits viscous lidocaine mildly improved symptoms. Also discussed Tylenol/Motrin and jaw rest. > Results discussed with patient including worrisome signs and symptoms and strict return precautions, and when to return to the emergency department. They verbalized understanding and feel safe for discharge at this time. Medications Administered Discontinued Medications Generic Name Dose Route Start Last Admin Trade Name Madina PRN Reason Stop Dose Admin Lidocaine HCl 5 ml 09/09/24 17:10 09/09/24 17:31 Lidocaine Hcl Viscous 2 % 15 Ml Solution MUCOUS MEM 09/09/24 17:11 5 ml ONCE ONE Administration Medical Decision Making Medical Decision Making [facility] Narrative: 84-year-old female with a past medical history of osteoarthritis, rheumatoid arthritis, HLD, HTN, polymyalgia rheumatica, anxiety, depression, osteoarthritis, gout, GERD, asthma, presenting to the ED complaining of right- sided jaw/facial pain radiating to ear and throat x 10 days. On exam vital signs stable, NAD, nontoxic appearing, physical exam as noted above. Tongue lesion noted without evidence of infection. + TMJ tenderness. 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 Rule out atypical ACS although of lower suspicion with duration of time. No evidence of acute infection including abscess in the face, mouth or throat. Low suspicion for CVA/TIA Plan: Viral testing/rapid strep ordered in triage, EKG, p.o. viscous lidocaine Please refer to course for remaining clinical decision making, interpretation of labs/imaging results, and discussions with consultants and/or family members. Differential Diagnosis Differential Diagnoses: The differential diagnosis associated with the presentation includes As above Lab Data [facility] Lab Attestation statement: I reviewed the patient's lab results. Labs: Lab Results 09/09/24 Range/Units 15:10 Influenza Type A (PCR) NEGATIVE (Negative) Influenza Type B (PCR) NEGATIVE (Negative) RSV RNA Qual (PCR) NEGATIVE (Negative) SARS-CoV-2 RNA (RT-PCR) NEGATIVE (Negative) S. pyogenes GrpA STEPHANY Negative (Negative) Independent Interpretation I performed an independent interpretation of an: EKG (My interpretation EKG normal sinus rhythm rate of 82. QTC 443. Nonspecific T-wave abnormality now evident in anterior leads. No STEMI) External Record Review External record reviewed: Inpatient record, Office record, Outpatient record, Prior outpatient labs, Prior outpatient radiology, Primary care record and Outside ED record Tests considered The following testing was considered but not selected: As above Prescription Management I considered prescription management with: Pain Medication, Antiviral and Antibiotic Chronic Conditions Patient?s care impacted by: Hypertension and Other Discharge Plan Discharge Clinical Impression: TMJ arthralgia, Tongue lesion Patient Disposition: Home, Self-Care Instructions: Temporomandibular Disorder (ED) Additional Instructions: Please follow-up with an ENT specialist Take Tylenol and Motrin at home as needed for pain In addition visits lidocaine will help numb your mouth If symptoms persist or worsen, you develop any facial swelling, redness, intraoral swelling, drainage, difficulty or inability to swallow, chest pain or shortness of breath return to the ED immediately Prescriptions: New lidocaine HCl [Lidocaine Viscous] 2 % solution 5 ml mucous membrane BID PRN (Reason: mouth pain) Qty: 50 0RF ibuprofen 800 mg tablet 800 mg PO Q8H PRN (Reason: pain) Qty: 14 0RF acetaminophen [Tylenol Extra Strength] 500 mg tablet 500 mg PO Q6H PRN (Reason: fever or pain) Qty: 14 0RF No Action acetaminophen 325 mg tablet 325 mg PO Q6H Qty: 1 0RF multivitamin Tablet 1 tab PO DAILY Qty: 90 0RF sertraline 25 mg tablet 25 mg PO DAILY Qty: 90 3RF meloxicam 15 mg tablet 15 mg PO DAILY Qty: 90 3RF allopurinol 100 mg tablet 100 mg PO DAILY Qty: 90 1RF clopidogrel [Plavix] 75 mg tablet 75 mg PO DAILY Qty: 90 1RF ropinirole 3 mg tablet 3 mg PO DAILY@1800 Qty: 90 2RF prednisone 1 mg tablet 2 mg PO DAILY Qty: 60 3RF atorvastatin 40 mg tablet 40 mg PO DAILY Qty: 30 3RF folic acid 1 mg tablet 1 mg PO DAILY Qty: 90 2RF metoprolol succinate 25 mg tablet extended release 24 hr 25 mg PO DAILY Qty: 90 2RF montelukast 10 mg tablet 10 mg PO BEDTIME Qty: 90 2RF meclizine 25 mg tablet 25 mg PO TID PRN (Reason: Nausea) Qty: 60 2RF Artificial Tears (cmc) 1 % Drops 1 drp OPHTHALMIC-LEFT QID PRN (Reason: Dry Eyes) clotrimazole 10 mg abby 10 mg PO TID PRN (Reason: fungal) bisacodyl 5 mg Tablet,Delayed Release (Dr/Ec) 5 mg PO DAILY Qty: 1 0RF lactulose 20 gram/30 mL Solution 20 g PO QID PRN (Reason: constipation) Qty: 1 0RF vitamin B complex [B Complex-Vitamin B12] Tablet 1 tab PO DAILY pantoprazole 20 mg tablet,delayed release (DR/EC) 20 mg PO DAILY Qty: 90 3RF (DME) CMF Bone Stimulator See Rx Instructions .Route .MEDSUPPLY Qty: 1 0RF Rx Instructions: As directed Prolia 60 mg/mL syringe 60 mg subcut [id number] Qty: 1 1RF tramadol 50 mg tablet 50 mg PO DAILY PRN (Reason: pain) Qty: 15 2RF prednisone 5 mg tablet See Rx Instructions PO .COMPLEX Qty: 42 0RF Rx Instructions: Take 3 tabs daily for 1 week then 2 tabs daily for 1 week then 1 tab daily for 1 week then stop calcium carbonate-vitamin D3 600 mg-5 mcg (200 unit) tablet 2 tab PO DAILY Qty: 180 1RF methotrexate sodium 2.5 mg tablet 15 mg PO QWEEK Qty: 72 0RF Referrals: [facility] [Outside] Singh June [Physician] - Po,Renetta Seo MD [Primary Care Provider] - 2 days Interventions: ED Discharge Assessment Last Done: 09/09/24 18:24 Discharge Date/Time: 09/09/24 18:30 Print Language: Chinese
[2024-09-09 15:25] LABS: IDNOW Serial# 08D9AD1C; Strep A Nucleic Acid Negative (Negative)
[2024-09-09 16:05] LABS: Influenza A PCR NEGATIVE (Negative); Influenza B PCR NEGATIVE (Negative); Resp Syncy Virus RNA Qual PCR NEGATIVE (Negative); SARS COV2 PCR INHOUSE NEGATIVE (Negative)
--- NOTE | 2024-09-09 17:00 | ECG_ITS ---
Test Reason : JAW PAIN Blood Pressure : / mmHG Vent. Rate : 082 BPM Atrial Rate : 082 BPM P-R Int : 178 ms QRS Dur : 074 ms QT Int : 380 ms P-R-T Axes : 049 017 061 degrees QTc Int : 443 ms Normal sinus rhythm Possible Left atrial enlargement Low voltage QRS Cannot rule out Anterior infarct , age undetermined Abnormal ECG When compared with ECG of 15-JAN-2024 14:42, Nonspecific T wave abnormality now evident in Anterior leads Referred By: Tahira Martins Electronically Signed By:MINNA CARDONA MD
[2024-09-09] MEDS: Lidocaine HCl Viscous 2 % 15 ML SOLUTION 5 ML MUCOUS MEM (17:31)
[2024-09-09 18:04] VITALS: BP 155/65; PULSE 79; RESP 14; TEMP 36.9; O2SAT 99
[2024-09-09 18:24] VITALS: BP 155/65; PULSE 79; RESP 14; TEMP 36.9; O2SAT 99
== END 2024-09-09 18:30 | disposition home or self-care (01) ==
PROVIDERS: Physician Assistant; Emergency Provider Emergency Medicine; PCP Internal Medicine
DX: M26.629 Arthralgia of temporomandibular joint, unspecified side (principal); K13.70 Unspecified lesions of oral mucosa; J02.9 Acute pharyngitis, unspecified; I10 Essential (primary) hypertension; H92.09 Otalgia, unspecified ear; R51.9 Headache, unspecified; M35.3 Polymyalgia rheumatica; Z03.818 Encounter for observation for suspected exposure to other biological agents ruled out; Z79.899 Other long term (current) drug therapy
CPT/HCPCS: 0241U; 87651; 93005; 99283; 99284

== ENCOUNTER → 2024-09-09 17:00 | Outpatient (BNV) | payer MEDICARE, OTHER, SELFPAY | PROVIDERS: Emergency Provider Emergency Medicine; PCP Internal Medicine; Visit Provider Internal Medicine Cardiovascular Disease | DX: R94.31 Abnormal electrocardiogram [ECG] [EKG] (principal); R68.84 Jaw pain | CPT/HCPCS: 93010 ==

== ENCOUNTER 2024-09-19 06:56 | Emergency (ER) | payer MEDICARE, OTHER, SELFPAY ==
--- NOTE | ~2024-09-19 | XR_ITS ---
EXAMINATION: XR LUMBOSACRAL SPINE CLINICAL INFORMATION: Pain. COMPARISON: 08/19/2021. TECHNIQUE: Three views of the lumbosacral spine. FINDINGS: There is diffuse osteopenia. No suspicious focal bony abnormalities. There is a moderate levoconvex scoliosis with a rotatory component, apex at L4. -Mild straightening of the normal lordosis. -Transitional lumbosacral anatomy with 6 nonrib-bearing vertebral bodies. The last fully formed vertebral body will be considered L5. -There is a mild compression deformity of the superior right endplate of L1, of uncertain age. This may be acute. This was not present in 2020. -Severe disc degeneration spanning L2-S1, with disc vacuum phenomenon and sclerotic type endplate changes. -Associated facet degeneration most significant spanning L3-S1. -Sacrum appears intact. SI joints demonstrate mild degenerative changes. -Soft tissues demonstrate diffuse aortobiiliac calcification. XR/XR lumbar spine 2-3V IMPRESSION: 1. 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 The last fully formed vertebral body will be considered L5. If intervention is considered, confirmation of level counting from above is highly recommended. 2. Possibly acute compression deformity superior endplate right aspect of L2. Minimal loss of height, approximately 10-20 %. 3. Levoconvex scoliosis and multilevel advanced spondylosis. Electronically signed by: Reese Christianson MD 09/19/2024 09:56 AM [facility]
[2024-09-19 07:01] VITALS: BP 162/87; PULSE 75; RESP 20; TEMP 36; O2SAT 99; BMI 29.0
[2024-09-19 07:40] LABS: Appearance Urine Clear; Color Urine Yellow; Glucose Urine UA Negative (Negative); Leukocyte Esterase Urine Negative (Negative); Nitrite Urine Negative (Negative); Urine Blood Negative (Negative); Urine Ketones Negative (Negative); Urine Protein Negative (Neg-Trace)
--- NOTE | 2024-09-19 10:06 | ED_ITS ---
HPI - Back Pain/Injury General Chief Complaint: Back Pain/Injury Stated Complaint: Back Pain Time Seen by Provider: 09/19/24 09:03 Source: patient Mode of arrival: ambulatory Limitations: no limitations History of Present Illness ED Provider: Deneen Daly PA-C HPI Narrative: 84-year-old female with history of aortic stenosis, constipation, restless legs syndrome, Meniere's disease, spondylosis of lumbar spine, anxiety, polymyalgia rheumatica, HLD, rheumatoid arthritis, HTN, HLD, asthma, peripheral neuropathy who presents to the ER for evaluation of left lower back pain x1 week. She rep orts waking up with diffuse lower back pain 1 week ago. The pain went across her lower back and worse with any movement or ambulation. The right sided pain resolved and the left side persists. It does not radiate. No urinary symptoms. No abdominal pain, chest pain, N/V/D. MD elicited complaint: back pain Pertinent past history: prior back pain Onset (ago): week(s) (1) Timing: constant Severity: severe Similar Symptoms Previously: Yes Quality: stabbing and aching Location: left lower back Radiation: none Exacerbating factors: movement Relieving factors: none Context: unknown Associated symptoms: denies other symptoms Treatments prior to arrival: acetaminophen Related Data Home Medications ?Medication ?Instructions ?Recorded ?Confirmed vitamin B complex (B 1 tab PO DAILY 09/04/20 06/12/24 Complex-Vitamin B12 tablet) carboxymethylcellulose sodium 1 % 1 drp ophthalmic-Left QID PRN Dry 07/11/23 06/12/24 eye drops (Artificial Tears Eyes (carboxymethylcellulose)) clotrimazole 10 mg abby 10 mg PO TID PRN fungal 11/28/23 06/12/24 Previous Rx's ?Medication ?Instructions ?Recorded [facility] Bone Stimulator #1 ea 10/09/20 bisacodyl 5 mg tablet,delayed 5 mg PO DAILY #1 tab 11/30/23 release lactulose 20 gram/30 mL oral 20 g (30 mL) PO QID PRN 11/30/23 solution constipation #1 mL acetaminophen 325 mg tablet 325 mg PO Q6H #1 tab 12/13/23 multivitamin 1 tab PO DAILY #90 tabs 12/21/23 sertraline 25 mg tablet 25 mg PO DAILY #90 tabs 12/22/23 meloxicam 15 mg tablet 15 mg PO DAILY #90 tabs 01/15/24 denosumab 60 mg/mL subcutaneous 60 mg subcut [id number] #1 mL 02/08/24 syringe (Prolia) pantoprazole 20 mg tablet,delayed 20 mg PO DAILY #90 tabs 04/04/24 release tramadol 50 mg tablet 50 mg PO DAILY PRN pain #15 tabs 05/20/24 allopurinol 100 mg tablet 100 mg PO DAILY #90 tabs 05/24/24 clopidogrel 75 mg tablet (Plavix) 75 mg PO DAILY #90 tabs 05/25/24 ropinirole 3 mg tablet 3 mg PO DAILY@1800 #90 tabs 06/18/24 prednisone 1 mg tablet 2 mg (2 x 1 mg) PO DAILY #60 tabs 07/12/24 atorvastatin 40 mg tablet 40 mg PO DAILY #30 tabs 08/06/24 folic acid 1 mg tablet 1 mg PO DAILY #90 tabs 08/06/24 metoprolol succinate 25 mg 25 mg PO DAILY #90 tabs 08/08/24 tablet,extended release 24 hr montelukast 10 mg tablet 10 mg PO BEDTIME #90 tabs 08/08/24 calcium carbonate 600 mg-vitamin 2 tab PO DAILY #180 tabs 08/28/24 D3 5 mcg (200 unit) tablet methotrexate sodium 2.5 mg tablet 15 mg (6 x 2.5 mg) PO QWEEK #72 08/28/24 tabs prednisone 5 mg tablet See Rx Instructions PO .COMPLEX 08/28/24 #42 tabs meclizine 25 mg tablet 25 mg PO TID PRN Nausea #60 tabs 09/04/24 acetaminophen 500 mg tablet 500 mg PO Q6H PRN fever or pain 09/09/24 (Tylenol Extra Strength) #14 tabs ibuprofen 800 mg tablet 800 mg PO Q8H PRN pain #14 tabs 09/09/24 lidocaine HCl 2 % mucosal solution 5 ml mucous membrane BID PRN mouth 09/09/24 (Lidocaine Viscous) pain #50 mL cyclobenzaprine 5 mg tablet 5 mg PO BID PRN muscle spasm #10 09/19/24 tabs lidocaine 5 % topical patch 1 patch topical DAILY #15 ea 09/19/24 Allergies Allergy/AdvReac Type Severity Reaction Status Date / Time alendronate sodium Allergy Severe ANAPHYLAXIS Verified 09/19/24 07:05 [From FOSAMAX] lisinopril [LISINOPRIL] Allergy Severe ANAPHYLAXIS, Verified 09/19/24 07:05 cough clarithromycin Allergy Intermediate CONFUSION, Verified 09/19/24 07:05 [CLARITHROMYCIN] sores on tongue, dry mouth simvastatin [SIMVASTATIN] Allergy Mild DRY Verified 09/19/24 07:05 THROAT, achy, confusion Review of Systems Review of Systems: Yes all other systems are reviewed and are negative [facility] Past Medical History Medical History Pre-op chest exam Pre-op examination Meniere disease Transient ischemic attack (TIA) Osteoarthritis of shoulders, bilateral Rheumatoid arthritis Osteoarthritis of carpometacarpal (CMC) joint of right thumb Overweight (BMI 25.0-29.9) High cholesterol Hypertension Thrush, oral Nondisplaced fracture of fifth metatarsal bone, left foot, subsequent encounter for fracture with nonunion Seropositive rheumatoid arthritis Fracture of 5th metatarsal Fracture of fifth metatarsal bone of right foot Polymyalgia rheumatica Anxiety and depression Osteoarthritis Lumbar degenerative disc disease Osteoporosis Gout Restless leg syndrome Hypergammaglobulinemia GERD (gastroesophageal reflux disease) Seizure disorder Hypertension Hypercholesterolemia Asthma Peripheral neuropathy Rheumatoid arthritis Surgical History Corneal transplant status History of arthroplasty of right hip History of total abdominal hysterectomy History of corneal transplant H/O left knee surgery History of open reduction and internal fixation (ORIF) procedure History of cholecystectomy History of appendectomy Family History Family History Father CVD (cardiovascular disease) Mother No problems noted. Social History Social History Household Members: Significant Other Household Members Other:: parter Housing: House Do you presently have visiting nurse or other home services: No Alcohol intake: former Comment: patient uses call light appropriately Patient Tobacco Use Status: Never used Tobacco e-Cigarette/Vaping Use: Never Used Second Hand Smoke Exposure: No Advance Directives Date on File: 07/11/23 service: No Current occupational status: retired Cognitive needs: No Hearing needs: Yes Vision needs: Yes Physical Exam Vital Signs: Vital Signs: Last Vital Signs Temp 97.5 F 09/19/24 12:02 Pulse 71 09/19/24 12:02 Resp 16 09/19/24 12:02 BP 166/57 H 09/19/24 12:02 Pulse Ox 98 09/19/24 12:02 O2 Del Method Room Air 09/19/24 12:02 BMI result Body Mass Index 29.0 Appearance: Alert. Oriented X3. No acute distress. Head: normocephalic, atraumatic. Eyes: Pupils equal, round and reactive to light. ENT: Pharynx normal. No tonsillar swelling or exudate. Neck: Normal inspection. Neck supple. CVS: Normal heart rate and rhythm. Pulses normal. Respiratory: No respiratory distress. Breath sounds normal. Abdomen: Obese, Soft and nontender. +BS x4 Back: normal inspection, nontender throughout the lumbar area. no midline tenderness. Skin: Skin warm and dry. Normal skin color. Normal skin turgor. No rashes. Extremities: No lower extremity edema. No joint swelling. Neuro/psych: Oriented X 3. No motor deficit. No sensory deficit. CN II-XII intact. Normal speech and cognition. Slow but steady gait. Medications Administered Discontinued Medications Generic Name Dose Route Start Last Admin Trade Name Freq PRN Reason Stop Dose Admin Acetaminophen 975 mg 09/19/24 10:16 09/19/24 10:20 Acetaminophen 325 Mg Tablet PO 09/19/24 10:17 975 mg ONCE ONE Administration Ketorolac Tromethamine 15 mg 09/19/24 10:16 09/19/24 10:20 Ketorolac Tromethamine 15 Mg/Ml Vial IM 09/19/24 10:17 15 mg ONCE ONE Administration Lidocaine 1 patch 09/19/24 10:16 09/19/24 10:20 Lidocaine 4 % Patch Adh..Patch TRANSDERMA 09/19/24 10:17 1 patch ONCE ONE Administration Protocol Medical Decision Making Medical Decision Making MDM Narrative: 84 yo female presenting to the ER for evaluation of 1 week of atraumatic left lower back pain. no red flag symptoms of low back pain. xr lumbar spine showing a possible acute compression fx. UA negative. given tylenol, low dose toradol and lidoderm in the ER with improvement Most likely cause of her pain is muscle strain and spasm. It is isolated on 1 side and does not radiate. She is ambulating, pivoting with assistance. She has a walker and a cane at home. She lives with her long-time live in life partner. She feels comfortable discharge home and outpatient follow-up with her primary care doctor. We discussed the role of possible PT which she would like to get involved in. Will discharge home with low-dose muscle relaxer and NSAID. Stable for discharge with outpatient follow-up. Return precautions were discussed. Differential Diagnosis Differential Diagnoses: The differential diagnosis associated with the presentation includes Inflammatory disorders, malignancy, trauma, osteoporosis, nerve root compression, radiculopathy, plexopathy, degenerative disc disease, disc herniation, spinal stenosis, sacroiliac joint dysfunction, facet joint injury, and less likely infection?like abscess or diskitis Admission/Observation Consideration of admission/observation: Escalation of care including a dmission/observation considered Elderly female with low back pain limiting her mobility, considered observation for referral for physical therapy and Case Management however her symptoms i mproved with treatment therefore she can be safely discharged home Lab Data MDM Lab Attestation statement: I reviewed the patient's lab results. Labs: Lab Results 09/19/24 Range/Units 07:33 Urine Color Yellow Urine Appearance Clear Urine pH 7.0 (5.0-9.0) Ur Specific [place] 1.010 (1.005-1.025) Urine Protein Negative (Neg-Trace) mg/dL Urine Glucose (UA) Negative (Negative) mg/dL Urine Ketones Negative (Negative) mg/dL Urine Blood Negative (Negative) Urine Nitrite Negative (Negative) Ur Leukocyte Esterase Negative (Negative) Independent Interpretation I performed an independent interpretation of an: Plain X-Ray Interpretation: No significant compression fracture appreciated, agree with radiology read Radiology Impression Discussion of test interpretation with radiology: I have reviewed the radiologist's reading. Radiologist Impression: XR/XR lumbar spine 2-3V IMPRESSION: 1. 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 The last fully formed vertebral body will be considered L5. If intervention is considered, confirmation of level counting from above is highly recommended. 2. Possibly acute compression deformity superior endplate right aspect of L2. Minimal loss of height, approximately 10-20 %. 3. Levoconvex scoliosis and multilevel advanced spondylosis. Independent Historian Clinical information obtained from an independent historian. History obtained from or confirmed by: Friend External Record Review External record reviewed: Office record, Outpatient record, Prior outpatient labs and Prior outpatient radiology Prescription Management I considered prescription management with: Pain Medication Chronic Conditions Patient?s care impacted by: Other (obesity, chronic back pain) Critical Care Time Critical Care Time Critical Care Time: No Discharge Plan Discharge Clinical Impression: Low back pain Qualifiers: Chronicity: acute Back pain laterality: left Sciatica presence: without sciatica Qualified Code(s): M54.50 - Low back pain, unspecified Patient Disposition: Home, Self-Care Instructions: Acute Low Back Pain (ED), Lower Back Exercises (ED) Additional Instructions: Your pain is most likely due to muscle strain and spasm. Your urine test was normal. Your x-ray showed a possible mild acute compression deformity of one of the bones in your lower back. Treatment is pain control. No bending, lifting or twisting. Use ice several times per day for 20 minutes at a time for the next 48 hours and then change to heat. Take medications as prescribed to help with pain and discomfort. Follow up with your Primary Care Doctor this week. If you develop new or worsening symptoms call 911 or come back to the ER for further evaluation. XR/XR lumbar spine 2-3V IMPRESSION: 1. 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 The last fully formed vertebral body will be considered L5. If intervention is considered, confirmation of level counting from above is highly recommended. 2. Possibly acute compression deformity superior endplate right aspect of L2. Minimal loss of height, approximately 10-20 %. 3. Levoconvex scoliosis and multilevel advanced spondylosis. Prescriptions: New cyclobenzaprine 5 mg tablet 5 mg PO BID PRN (Reason: muscle spasm) Qty: 10 0RF lidocaine 5 % adhesive patch,medicated 1 patch topical DAILY Qty: 15 0RF Rx Instructions: leave on most painful area for up to 12 hrs No Action acetaminophen 325 mg tablet 325 mg PO Q6H Qty: 1 0RF multivitamin Tablet 1 tab PO DAILY Qty: 90 0RF sertraline 25 mg tablet 25 mg PO DAILY Qty: 90 3RF meloxicam 15 mg tablet 15 mg PO DAILY Qty: 90 3RF allopurinol 100 mg tablet 100 mg PO DAILY Qty: 90 1RF clopidogrel [Plavix] 75 mg tablet 75 mg PO DAILY Qty: 90 1RF ropinirole 3 mg tablet 3 mg PO DAILY@1800 Qty: 90 2RF prednisone 1 mg tablet 2 mg PO DAILY Qty: 60 3RF atorvastatin 40 mg tablet 40 mg PO DAILY Qty: 30 3RF folic acid 1 mg tablet 1 mg PO DAILY Qty: 90 2RF metoprolol succinate 25 mg tablet extended release 24 hr 25 mg PO DAILY Qty: 90 2RF montelukast 10 mg tablet 10 mg PO BEDTIME Qty: 90 2RF meclizine 25 mg tablet 25 mg PO TID PRN (Reason: Nausea) Qty: 60 2RF Artificial Tears (cmc) 1 % Drops 1 drp OPHTHALMIC-LEFT QID PRN (Reason: Dry Eyes) clotrimazole 10 mg abby 10 mg PO TID PRN (Reason: fungal) bisacodyl 5 mg Tablet,Delayed Release (Dr/Ec) 5 mg PO DAILY Qty: 1 0RF lactulose 20 gram/30 mL Solution 20 g PO QID PRN (Reason: constipation) Qty: 1 0RF lidocaine HCl [Lidocaine Viscous] 2 % solution 5 ml mucous membrane BID PRN (Reason: mouth pain) Qty: 50 0RF ibuprofen 800 mg tablet 800 mg PO Q8H PRN (Reason: pain) Qty: 14 0RF acetaminophen [Tylenol Extra Strength] 500 mg tablet 500 mg PO Q6H PRN (Reason: fever or pain) Qty: 14 0RF vitamin B complex [B Complex-Vitamin B12] Tablet 1 tab PO DAILY pantoprazole 20 mg tablet,delayed release (DR/EC) 20 mg PO DAILY Qty: 90 3RF (DME) [facility] Bone Stimulator See Rx Instructions .Route .MEDSUPPLY Qty: 1 0RF Rx Instructions: As directed Prolia 60 mg/mL syringe 60 mg subcut [id number] Qty: 1 1RF tramadol 50 mg tablet 50 mg PO DAILY PRN (Reason: pain) Qty: 15 2RF prednisone 5 mg tablet See Rx Instructions PO .COMPLEX Qty: 42 0RF Rx Instructions: Take 3 tabs daily for 1 week then 2 tabs daily for 1 week then 1 tab daily for 1 week then stop calcium carbonate-vitamin D3 600 mg-5 mcg (200 unit) tablet 2 tab PO DAILY Qty: 180 1RF methotrexate sodium 2.5 mg tablet 15 mg PO QWEEK Qty: 72 0RF Referrals: Po,Renetta Seo MD [Primary Care Provider] - Interventions: ED Discharge Assessment Last Done: 09/19/24 12:02 Discharge Date/Time: 09/19/24 12:04 Print Language: Arabic
[2024-09-19] MEDS: Lidocaine 4 % Patch ADH..PATCH 1 PATCH TRANSDERMA (10:20)
[2024-09-19] MEDS: Ketorolac Tromethamine 15 MG/ML VIAL IM (10:20)
[2024-09-19] MEDS: Acetaminophen 325 MG TABLET 975 MG PO (10:20)
[2024-09-19 11:26] VITALS: BP 166/57; PULSE 71; RESP 16; TEMP 36.4; O2SAT 98
[2024-09-19 12:02] VITALS: BP 166/57; PULSE 71; RESP 16; TEMP 36.4; O2SAT 98
== END 2024-09-19 12:04 | disposition home or self-care (01) ==
PROVIDERS: Emergency Provider Student in an Organized Health Care Education/Training Program; PCP Internal Medicine
DX: M54.50 Low back pain, unspecified (principal); Z79.899 Other long term (current) drug therapy
CPT/HCPCS: 72100; 81003; 96372; 99284; J1885

== ENCOUNTER → 2024-09-19 08:25 | Outpatient (BNV) | payer MEDICARE, OTHER, SELFPAY | PROVIDERS: Emergency Provider Student in an Organized Health Care Education/Training Program; PCP Internal Medicine; Visit Provider Radiology Diagnostic Radiology | DX: M54.50 Low back pain, unspecified (principal); M47.896 Other spondylosis, lumbar region | CPT/HCPCS: 72100 ==

== ENCOUNTER 2024-09-23 10:44 | Emergency (ER) | payer MEDICARE, OTHER, SELFPAY ==
--- NOTE | ~2024-09-23 | CT_ITS ---
EXAMINATION: CT LUMBAR SPINE WITHOUT CONTRAST CLINICAL INFORMATION: Worsening low back pain. COMPARISON: Lumbar spine radiographs dated September 19, 2024. MRI lumbar spine dated November 30, 2022. TECHNIQUE: Noncontrast computed tomography of the lumbar spine was performed. This CT examination was performed using dose optimization techniques as appropriate, variously including the following: *Automated exposure control *Adjustment of mA and/or kV according to patient size (this includes techniques or standardized protocols for targeted exams where dose is matched to indication/reason for exam; i.e. extremities or head) *Use of iterative reconstruction technique DLP; 449 mGy-cm FINDINGS: For the purposes of this study, the lowermost well-formed vertebral body is labeled as L5, with the lowermost well-formed disc space labeled as L5-S1. This is in keeping with the nomenclature used on the previous MRI of 11/30/2022. There is diffuse osteopenia. There is levoconvex scoliosis with a rotatory component, apex at L3. There is trace anterolisthesis of L4 in relation to L5. There is trace anterolisthesis of L3 in relation to L4. There is an age indeterminate compression fracture involving the superior endplate of L1. The degree of height loss is mild, on the order of approximately 19%. Remaining lumbar vertebrae demonstrate preserved stature. There is severe degenerative disc disease spanning L2-S1 characterized by intervertebral disc height loss, vacuum disc phenomenon, endplate sclerosis, and endplate osteophytosis. L1-2: There is a moderate size circumferential disc herniation. There is bilateral facet arthropathy. There is ligamentous hypertrophy. There is mild spinal canal stenosis. The neural foramina appear patent. L2-3: There is a large circumferential disc herniation. There is significant facet arthropathy and ligamentous hypertrophy. There is moderate spinal canal stenosis. The neural foramina appear patent. L3-4: There is a large circumferential disc herniation. There is significant facet arthropathy and ligamentous hypertrophy. There is severe spinal canal stenosis. The left neural foramen is moderately narrowed. L4-5: There is a large circumferential disc herniation. There is extensive facet arthropathy and ligamentous hypertrophy. The spinal canal is severely narrowed. Neural foramina appear patent. L5-S1: There is a circumferential disc bulge. There is facet arthropathy. No spinal canal stenosis. The visualized aorta is densely calcified. No aortic aneurysm. There is a large, partially visualized right renal cyst measuring at least 7 cm x [address]/CT lumbar spine wo IV con IMPRESSION: - There is an age indeterminate compression fracture involving the superior endplate of L1. The degree of height loss is mild, on the order of approximately 19%. MRI of the lumbar spine can be performed to evaluate for acuity of this compression fracture. Remaining lumbar vertebrae demonstrate preserved stature. - There is diffuse osteopenia. - There is levoconvex scoliosis with a rotatory component, apex at L3. There is trace anterolisthesis of L4 in relation to L5. There is trace anterolisthesis of L3 in relation to L4. - There is severe degenerative disc disease spanning L2-S1 characterized by intervertebral disc height loss, vacuum disc phenomenon, endplate sclerosis, and endplate osteophytosis. - Multilevel spondyloarthropathy of the lumbosacral spine with varying degrees of central canal and foraminal stenosis, as detailed above by level. Electronically signed by: Vidal Gomez DO 09/23/2024 10:00 PM [facility]
[2024-09-23 10:50] VITALS: BP 164/80; PULSE 84; O2SAT 98
[2024-09-23 11:27] VITALS: BP 157/70; PULSE 76; RESP 16; TEMP 35.8; O2SAT 98; BMI 29.0
--- NOTE | 2024-09-23 15:03 | ED.GENADULT ---
HPI - General Adult General Chief complaint: Back Pain/Injury Stated complaint: Low back pain no injury per ems Time Seen by Provider: 09/23/24 15:03 Source: patient and EMS Mode of arrival: EMS Limitations: no limitations History of Present Illness ED Provider: Anabella Emmanuel PA-C HPI narrative: Patient is an 84 year old assigned female at with a history of asthma, seizures, RA, polymyalgia rheumatica, HTN, GERD, osteoporosis, LIYA, and BPVV presenting to the emergency department today with persistent low back pain. Patient states that over the last 15 days she has had persistent low back pain. Patient states that she was seen here on 09/19/2024 and the pain was better that day but acutely worse the next. Patient denies any dizziness, lightheadedness, abdominal pain, nausea, vomiting, fever, chills, blurry vision, double vision, loss of vision, chest pain, difficulty breathing, shortness of breath, night sweats, pain with urination, increased urinary frequency, increased urinary urgency, blood in her urine or stool, syncope or a near syncopal episode, recent trauma or falls, bowel incontinence, bladder incontinence, or any other complaints at this time. Onset (ago): day(s) () Relieving factors: none Exacerbating factors: none Associated symptoms: denies other symptoms Treatments prior to arrival: none Related Data Home Medications ?Medication ?Instructions ?Recorded ?Confirmed vitamin B complex (B 1 tab PO DAILY 09/04/20 06/12/24 Complex-Vitamin B12 tablet) carboxymethylcellulose sodium 1 % 1 drp ophthalmic-Left QID PRN Dry 07/11/23 06/12/24 eye drops (Artificial Tears Eyes (carboxymethylcellulose)) clotrimazole 10 mg abby 10 mg PO TID PRN fungal 11/28/23 06/12/24 Previous Rx's ?Medication ?Instructions ?Recorded [facility] Bone Stimulator #1 ea 10/09/20 bisacodyl 5 mg tablet,delayed 5 mg PO DAILY #1 tab 11/30/23 release lactulose 20 gram/30 mL oral 20 g (30 mL) PO QID PRN 11/30/23 solution constipation #1 mL acetaminophen 325 mg tablet 325 mg PO Q6H #1 tab 12/13/23 multivitamin 1 tab PO DAILY #90 tabs 02/15/24 sertraline 25 mg tablet 25 mg PO DAILY #90 tabs 12/22/23 meloxicam 15 mg tablet 15 mg PO DAILY #90 tabs 01/15/24 denosumab 60 mg/mL subcutaneous 60 mg subcut [id number] #1 mL 02/08/24 syringe (Prolia) pantoprazole 20 mg tablet,delayed 20 mg PO DAILY #90 tabs 04/04/24 release tramadol 50 mg tablet 50 mg PO DAILY PRN pain #15 tabs 05/20/24 allopurinol 100 mg tablet 100 mg PO DAILY #90 tabs 05/24/24 clopidogrel 75 mg tablet (Plavix) 75 mg PO DAILY #90 tabs 05/25/24 ropinirole 3 mg tablet 3 mg PO DAILY@1800 #90 tabs 06/18/24 prednisone 1 mg tablet 2 mg (2 x 1 mg) PO DAILY #60 tabs 07/12/24 atorvastatin 40 mg tablet 40 mg PO DAILY #30 tabs 08/06/24 folic acid 1 mg tablet 1 mg PO DAILY #90 tabs 08/06/24 metoprolol succinate 25 mg 25 mg PO DAILY #90 tabs 08/08/24 tablet,extended release 24 hr montelukast 10 mg tablet 10 mg PO BEDTIME #90 tabs 08/08/24 calcium carbonate 600 mg-vitamin 2 tab PO DAILY #180 tabs 08/28/24 D3 5 mcg (200 unit) tablet methotrexate sodium 2.5 mg tablet 15 mg (6 x 2.5 mg) PO QWEEK #72 08/28/24 tabs prednisone 5 mg tablet See Rx Instructions PO .COMPLEX 08/28/24 #42 tabs meclizine 25 mg tablet 25 mg PO TID PRN Nausea #60 tabs 09/04/24 acetaminophen 500 mg tablet 500 mg PO Q6H PRN fever or pain 09/09/24 (Tylenol Extra Strength) #14 tabs ibuprofen 800 mg tablet 800 mg PO Q8H PRN pain #14 tabs 09/09/24 lidocaine HCl 2 % mucosal solution 5 ml mucous membrane BID PRN mouth 09/09/24 (Lidocaine Viscous) pain #50 mL cyclobenzaprine 5 mg tablet 5 mg PO BID PRN muscle spasm #10 09/19/24 tabs lidocaine 5 % topical patch 1 patch topical DAILY #15 ea 09/19/24 methocarbamol 750 mg tablet 750 mg PO QID PRN pain #20 tabs 09/24/24 methylprednisolone 4 mg tablets in 4 mg PO DAILY #1 ea 09/24/24 a dose pack (Medrol (Silverio)) Allergies Allergy/AdvReac Type Severity Reaction Status Date / Time alendronate sodium Allergy Severe ANAPHYLAXIS Verified 09/23/24 11:32 [From FOSAMAX] lisinopril [LISINOPRIL] Allergy Severe ANAPHYLAXIS, Verified 09/23/24 11:32 cough clarithromycin Allergy Intermediate CONFUSION, Verified 09/23/24 11:32 [CLARITHROMYCIN] sores on tongue, dry mouth simvastatin [SIMVASTATIN] Allergy Mild DRY Verified 09/23/24 11:32 THROAT, achy, confusion Review of Systems Constitutional: Constitutional: Reports no additional constitutional complaints, Denies chills, Denies fever(s) and Denies night sweats Eyes: Eyes: Reports no additional eye complaints, Denies blurry vision, Denies change in vision, Denies diplopia, Denies eye discharge, Denies loss of vision and Denies eye pain ENT: Denies dizziness Cardiovascular: Cardiovascular: Reports no additional cardiovascular complaints, Denies chest pain, Denies lightheadedness, Denies Loss of Consciousness and Denies dyspnea Respiratory: Respiratory: Reports no additional respiratory complaints and Denies dyspnea Gastrointestinal: Gastrointestinal: Reports no additional gastrointestinal complaints, Denies abdominal pain, Denies melena, Denies hematochezia, Denies change in bowel habits and Denies change in stool character Genitourinary: Genitourinary: Denies hematuria, Denies urinary frequency, Denies dysuria, Denies urinary incontinence, Denies urinary hesitancy and Denies urinary urgency Musculoskeletal: Musculoskeletal: Reports no additional musculoskeletal complaints, Reports back pain, Denies numbness and Denies tingling Neurologic: Denies dizziness, Denies loss of vision, Denies numbness and Denies tingling Psychiatric: Psychiatric: Reports no additional psychiatric complaints Endocrine: Endocrine: Reports no additional endocrine complaints Hematologic/Lymphatic: Hematologic/Lymphatic: Reports no additional hematologic/lymphatic complaints Allergic/Immunologic: Allergic/Immunologic: Reports no additional allergic/immunologic complaints PMFSH Past Medical History Attestation statement: The following information was validated with the patient. Source: old records reviewed and nursing notes reviewed Medical History Pre-op chest exam Pre-op examination Meniere disease Transient ischemic attack (TIA) Osteoarthritis of shoulders, bilateral Rheumatoid arthritis Osteoarthritis of carpometacarpal (CMC) joint of right thumb Overweight (BMI 25.0-29.9) High cholesterol Hypertension Thrush, oral Nondisplaced fracture of fifth metatarsal bone, left foot, subsequent encounter for fracture with nonunion Seropositive rheumatoid arthritis Fracture of 5th metatarsal Fracture of fifth metatarsal bone of right foot Polymyalgia rheumatica Anxiety and depression Osteoarthritis Lumbar degenerative disc disease Osteoporosis Gout Restless leg syndrome Hypergammaglobulinemia GERD (gastroesophageal reflux disease) Seizure disorder Hypertension Hypercholesterolemia Asthma Peripheral neuropathy Rheumatoid arthritis Surgical History Corneal transplant status History of arthroplasty of right hip History of total abdominal hysterectomy History of corneal transplant H/O left knee surgery History of open reduction and internal fixation (ORIF) procedure History of cholecystectomy History of appendectomy Family History Family History Father CVD (cardiovascular disease) Mother No problems noted. Social History Social History Household Members: Significant Other Household Members Other:: parter Housing: House Do you presently have visiting nurse or other home services: No Alcohol intake: former Comment: patient uses call light appropriately Patient Tobacco Use Status: Never used Tobacco e-Cigarette/Vaping Use: Never Used Second Hand Smoke Exposure: No Use of substances other than those prescribed or required for medical reasons: No Advance Directives: Yes Advance Directives on File: Yes Advance Directives Date on File: 07/11/23 Do you have a plan to hurt others: No Plan service: No Current occupational status: retired Cognitive needs: No Hearing needs: Yes Vision needs: Yes Physical Exam ED Vital Signs: Vital Signs - 24 hr 09/23/24 11:27 09/23/24 19:42 09/23/24 22:22 Temperature 96.4 F L 98.2 F 98 F Pulse Rate 76 74 82 Respiratory Rate 16 20 20 Blood Pressure 157/70 H 174/82 H 179/80 H Pulse Oximetry 98 97 97 Oxygen Delivery Method Room Air Room Air Room Air BMI result Body Mass Index 29.0 Const General: cooperative, no acute distress, alert and awake Nutritional Appearance: well nourished Orientation/consciousness: patient oriented x3 Limitations: no limitations HENMT Head: Yes normal to inspection and Yes atraumatic Ears: hearing grossly normal bilaterally and external ears normal General nose exam: Normal external nose present, no nasal discharge noted and no epistaxis Face and sinus: Yes normal facial exam, No abrasion and No laceration Mouth: Normal oral and palatal mucosa present, no drooling and no muffled voice Eyes General: appearance normal, both eyes and all related structures Periorbital: periorbital findings normal Eyelids: Yes eyelids normal Conjunctivae: conjunctivae normal Pupils: Equal, round and reactive pupils present EOM: EOMs intact bilaterally Neck Neck: Yes normal visual inspection, Yes full ROM and Yes no lymphadenopathy Chest Chest palpation & inspection: normal inspection of the chest Resp Effort & Inspection: normal respiratory effort and able to speak in complete sentences GI Inspection: Yes normal to inspection Back/Spine/Pelvis Other: lumbar pain with movement Neuro General: patient oriented x3 and moves all extremities Cranial nerves: Yes Equal, round and reactive pupils present Cognition (Neuro): normal cognition Extrem General: Yes normal to inspection, Yes full ROM and Yes capillary refill normal Psych Appearance: grossly normal Mental Status: mental status grossly normal Affect: normal affect Attitude: cooperative Thought process: Normal thought process present Thought content: Normal thought content present Insight: Good insight present (Psych) Course Course Course Narrative: Miko Benítez PA-C have accepted care of the patient and signed out pending imaging and final disposition CT lumbar spine: CT/CT lumbar spine wo IV con IMPRESSION: - There is an age indeterminate compression fracture involving the superior endplate of L1. The degree of height loss is mild, on the order of approximately 19%. MRI of the lumbar spine can be performed to evaluate for acuity of this compression fracture. Remaining lumbar vertebrae demonstrate preserved stature. - There is diffuse osteopenia. - There is levoconvex scoliosis with a rotatory component, apex at L3. There is trace anterolisthesis of L4 in relation to L5. There is trace anterolisthesis of L3 in relation to L4. - There is severe degenerative disc disease spanning L2-S1 characterized by intervertebral disc height loss, vacuum disc phenomenon, endplate sclerosis, and endplate osteophytosis. - Multilevel spondyloarthropathy of the lumbosacral spine with varying degrees of central canal and foraminal stenosis, as detailed above by level. Electronically signed by: Vidal Gomez 09/23/2024 10:00 PM [facility] [place] Discussed with patient that she has significant arthritic changes in her lumbar spine as well as multiple herniated discs. I offered physical therapy and case management, the patient states she has services to the home, she would like to try to manage her care as an outpatient at this time. Medications Administered Discontinued Medications Generic Name Dose Route Start Last Admin Trade Name Madina PRN Reason Stop Dose Admin Diazepam 2 mg 09/23/24 15:09 09/23/24 16:47 Diazepam 2 Mg Tablet PO 09/23/24 15:10 2 mg ONCE ONE Administration Methocarbamol 500 mg 09/23/24 20:06 09/23/24 21:05 Methocarbamol 500 Mg Tablet PO 09/23/24 20:07 500 mg ONCE ONE Administration Prednisone 20 mg 09/23/24 15:09 09/23/24 16:48 Prednisone 20 Mg Tablet PO 09/23/24 15:10 20 mg ONCE ONE Administration Medical Decision Making Medical Decision Making MDM Narrative: Patient is an 84 year old assigned female at with a history of asthma, seizures, RA, polymyalgia rheumatica, HTN, GERD, osteoporosis, LIYA, and BPVV presenting to the emergency department today with persistent low back pain. Patient's physical exam was as noted in the physical exam portion of this note. Patient's lumbar CT is pending. I explained my physical exam findings to the patient. I answered all questions asked by the patient. Patient received Valium and a corticosteroid which, upon re-evaluation, she stated it helped her symptoms significantly. Patient's disposition pending CT lumbar spine read. Patient signed out to evening PA pending read. Differential Diagnosis Differential Diagnoses: The differential diagnosis associated with the presentation includes Lumbar strain Lumbar sprain Bulging disc DDD Admission/Observation Consideration of admission/observation: Escalation of care including admission/observation considered Patient's disposition will be determined after CT read. Discharge Plan Discharge Clinical Impression: Low back pain, Arthritis, Herniated lumbar intervertebral disc Patient Disposition: Home, Self-Care Instructions: Osteoarthritis (ED) Additional Instructions: The CT scan revealed that you have significant degenerative changes in your back, ie arthritis. See home care instructions. I am sending you with a steroid taper to be use as an anti-inflammatory, you can use the muscle relaxant as needed for breakthrough pain. To note it may cause drowsiness, do not drive or operate machinery while taking the medication. Follow up with your primary care provider next week. You require both physical therapy and an MRI as an outpatient. Prescriptions: New methylprednisolone [Medrol (Silverio)] 4 mg tablets,dose pack 4 mg PO DAILY Qty: 1 0RF Rx Instructions: Take per package instructions methocarbamol 750 mg tablet 750 mg PO QID PRN (Reason: pain) Qty: 20 0RF No Action acetaminophen 325 mg tablet 325 mg PO Q6H Qty: 1 0RF multivitamin Tablet 1 tab PO DAILY Qty: 90 0RF sertraline 25 mg tablet 25 mg PO DAILY Qty: 90 3RF meloxicam 15 mg tablet 15 mg PO DAILY Qty: 90 3RF allopurinol 100 mg tablet 100 mg PO DAILY Qty: 90 1RF clopidogrel [Plavix] 75 mg tablet 75 mg PO DAILY Qty: 90 1RF ropinirole 3 mg tablet 3 mg PO DAILY@1800 Qty: 90 2RF prednisone 1 mg tablet 2 mg PO DAILY Qty: 60 3RF atorvastatin 40 mg tablet 40 mg PO DAILY Qty: 30 3RF folic acid 1 mg tablet 1 mg PO DAILY Qty: 90 2RF metoprolol succinate 25 mg tablet extended release 24 hr 25 mg PO DAILY Qty: 90 2RF montelukast 10 mg tablet 10 mg PO BEDTIME Qty: 90 2RF meclizine 25 mg tablet 25 mg PO TID PRN (Reason: Nausea) Qty: 60 2RF Artificial Tears (cmc) 1 % Drops 1 drp OPHTHALMIC-LEFT QID PRN (Reason: Dry Eyes) clotrimazole 10 mg abby 10 mg PO TID PRN (Reason: fungal) bisacodyl 5 mg Tablet,Delayed Release (Dr/Ec) 5 mg PO DAILY Qty: 1 0RF lactulose 20 gram/30 mL Solution 20 g PO QID PRN (Reason: constipation) Qty: 1 0RF cyclobenzaprine 5 mg tablet 5 mg PO BID PRN (Reason: muscle spasm) Qty: 10 0RF lidocaine 5 % adhesive patch,medicated 1 patch topical DAILY Qty: 15 0RF Rx Instructions: leave on most painful area for up to 12 hrs lidocaine HCl [Lidocaine Viscous] 2 % solution 5 ml mucous membrane BID PRN (Reason: mouth pain) Qty: 50 0RF ibuprofen 800 mg tablet 800 mg PO Q8H PRN (Reason: pain) Qty: 14 0RF acetaminophen [Tylenol Extra Strength] 500 mg tablet 500 mg PO Q6H PRN (Reason: fever or pain) Qty: 14 0RF vitamin B complex [B Complex-Vitamin B12] Tablet 1 tab PO DAILY pantoprazole 20 mg tablet,delayed release (DR/EC) 20 mg PO DAILY Qty: 90 3RF (DME) CMF Bone Stimulator See Rx Instructions .Route .MEDSUPPLY Qty: 1 0RF Rx Instructions: As directed Prolia 60 mg/mL syringe 60 mg subcut [id number] Qty: 1 1RF tramadol 50 mg tablet 50 mg PO DAILY PRN (Reason: pain) Qty: 15 2RF prednisone 5 mg tablet See Rx Instructions PO .COMPLEX Qty: 42 0RF Rx Instructions: Take 3 tabs daily for 1 week then 2 tabs daily for 1 week then 1 tab daily for 1 week then stop calcium carbonate-vitamin D3 600 mg-5 mcg (200 unit) tablet 2 tab PO DAILY Qty: 180 1RF methotrexate sodium 2.5 mg tablet 15 mg PO QWEEK Qty: 72 0RF Print Language: Luxembourgish
[2024-09-23] MEDS: diazePAM 2 MG TABLET PO (16:47)
[2024-09-23] MEDS: predniSONE 20 MG TABLET PO (16:48)
[2024-09-23 19:42] VITALS: BP 174/82; PULSE 74; RESP 20; TEMP 36.8; O2SAT 97
--- NOTE | 2024-09-23 20:56 | PC.NURSE ---
called pharmacy for med robaxin due to it not being in the pyxis.
[2024-09-23] MEDS: methocarbamoL 500 MG TABLET PO (21:05)
[2024-09-23 22:22] VITALS: BP 179/80; PULSE 82; RESP 20; TEMP 36.6; O2SAT 97
--- NOTE | 2024-09-24 00:41 | PC.NURSE ---
pt assisted to bathroom with wheelchair at this time. pt tolerated well.
--- NOTE | 2024-09-24 01:19 | PC.NURSE ---
pt assisted into lyft with this rn at this time, pt states she has help at home to assist her.
[2024-09-24 01:20] VITALS: BP 179/80; PULSE 82; RESP 20; TEMP 36.6; O2SAT 97
== END 2024-09-24 01:21 | disposition home or self-care (01) ==
PROVIDERS: Emergency Provider Emergency Medicine Emergency Medical Services; PCP Internal Medicine
DX: M51.26 Other intervertebral disc displacement, lumbar region (principal); I10 Essential (primary) hypertension; J45.909 Unspecified asthma, uncomplicated; Z79.899 Other long term (current) drug therapy
CPT/HCPCS: 72131; 99284

== ENCOUNTER 2024-09-26 18:40 | Emergency (ER) | payer MEDICARE, OTHER, SELFPAY ==
--- NOTE | ~2024-09-26 | XR_ITS ---
EXAMINATION: XR LUMBOSACRAL SPINE CLINICAL INFORMATION: Pain. COMPARISON: Most recent lumbar spine CT dated 09/23/2024. TECHNIQUE: Three views of the lumbosacral spine. FINDINGS: Levocurvature of the lumbar spine is redemonstrated. Straightening of the normal lumbar lordosis, unchanged. Chronic grade 1 anterolisthesis of L3 on L4 and L4 on L5, unchanged. Mild loss of superior endplate vertebral body height at L1, unchanged when compared to the recent CT. No new loss of vertebral body height. Multilevel loss of intervertebral disc height with degenerative endplate changes and bilateral facet arthropathy is unchanged. No lytic or blastic osseous lesion. Moderate stool burden. XR/XR lumbar spine 2-3V IMPRESSION: 1. Chronic grade 1 anterolisthesis of L3 on L4 and L4 on L5, unchanged. 2. Mild superior endplate compression fracture at L1, unchanged. No new fracture or subluxation. 3. Multilevel degenerative disc disease and bilateral facet arthropathy, unchanged. Electronically signed by: Kuldip Arreguin MD 09/26/2024 09:14 PM [facility]
--- NOTE | ~2024-09-26 | CT_ITS ---
EXAMINATION: CT HIP WITHOUT CONTRAST, LEFT CLINICAL INFORMATION: Hip pain COMPARISON: None available. TECHNIQUE: Multidetector volumetric imaging was obtained through the left hip without contrast material. Multiplanar reformatted images were submitted in coronal and sagittal planes. This CT examination was performed using dose optimization techniques as appropriate, variously including the following: *Automated exposure control *Adjustment of mA and/or kV according to patient size (this includes techniques or standardized protocols for targeted exams where dose is matched to indication/reason for exam; i.e. extremities or head) *Use of iterative reconstruction technique DLP: 277 mGy-cm FINDINGS: No definite acute fractures are seen. There are degenerative changes seen in the posterior acetabulum with subchondral cyst formation and sclerosis (3:140-171) . Intra-abdominal contents appear normal. Some colonic diverticula are present without diverticulitis. Vascular calcifications are present. No adenopathy. No fluid collections around the hip CT/CT hip LT wo IV con IMPRESSION: No fracture is seen. Degenerative changes are present in the left hip. Electronically signed by: Sourav Metcalf MD 09/26/2024 11:57 PM EST
[2024-09-26 18:57] VITALS: BP 144/71; PULSE 101; RESP 20; TEMP 36.2; O2SAT 97; BMI 29.0
[2024-09-26 19:14] LABS: MANUAL DIFF FLAG NO
[2024-09-26 19:21] LABS: Basophils Absolute Auto 0.1 X10*3/uL (0.0-0.2); Basophils Percent Auto 0.5 % (0-2); Eosinophils Percent Auto 0.2 % (0-4); Hemoglobin 12.3 g/dl (12.0-16.0); Imm Gran Pct Auto 0.8 % (0.0-0.4); Lymphocytes Percent Auto 7.4 % (20-40); Mean Corpuscular HGB Conc 33.2 g/dl (31.0-35.0); Mean Corpuscular Hemoglobin 30.6 pg (27.0-33.0); Mean Platelet Volume 9.2 fL (9.4-12.3); Monocytes Absolute Auto 0.2 X10*3/uL (0.1-1.2); Monocytes Percent Auto 1.5 % (2-11); Neutrophils Absolute Auto 11.7 x10*3/uL (2.0-8.3); Neutrophils Percent Auto 89.6 % (45-73); Platelet Count 274 X10*3/uL (160-400); Red Blood Count 4.02 X10*6/uL (4.20-5.50); Red Cell Distribution Width 14.2 % (11.0-16.0); White Blood Count 13.1 X10*3/uL (4.8-10.8)
[2024-09-26 19:32] LABS: Anion Gap 14 (12-20); Blood Urea Nitrogen 20 mg/dL (9-16); Calcium 8.4 mg/dL (8.4-10.2); Carbon Dioxide 20 mmol/L (22-29); Chloride 110 mmol/L (96-108); Creatinine Clr Calc Pharmacy 53.6; Estimated Glomerular Filt Rate > 60; Glucose Random 159 mg/dL (60-115); Potassium 4.8 mmol/L (3.3-5.1); Sodium 139 mmol/L (135-145)
[2024-09-26 21:23] VITALS: BP 162/70; PULSE 90; RESP 16; TEMP 36.9; O2SAT 97
--- NOTE | 2024-09-26 21:36 | PC.NURSE ---
Pt brought to RM 4 from waiting room, assumed care of pt at this time. A&Ox3 skin pwd respirations even unlabored. VSS. Endorsing lower back pain non radiating x 10 days. Non traumatic, denies heavy lifting or changes in activity level. Denies accompanying symptoms. +csm to all extremities. Seen in ED 3 days ago for same complaint, prescribed meds with little relief. Awaiting primary provider eval, aware of plan of care.
--- NOTE | 2024-09-26 22:16 | ED_ITS ---
HPI - Back Pain/Injury General Chief Complaint: Back Pain/Injury Stated Complaint: Chrn Lower Back Pain Time Seen by Provider: 09/26/24 22:00 Source: patient Mode of arrival: ambulatory Limitations: no limitations History of Present Illness ED Provider: DR. Nielsen HPI Narrative: Patient is 84-year-old female history of asthma, seizure, RA, polymyalgia rheumatica, HTN, GERD, osteoporosis, GED, BPW presenting to emergency department today with a persistent of low back pain started about 10 days ago patient was seen and evaluated for lower back pain on 09/23/[address] of the lumbar spine which showed L1 compression fracture indeterminate age, patient was sent home on Medrol pack and methocarbamol patient reported that is not controlling her pain. Patient has no dysuria, no frequency urination, declined any recent fall or back injuries. Related Data Home Medications ?Medication ?Instructions ?Recorded ?Confirmed vitamin B complex (B 1 tab PO DAILY 09/04/20 06/12/24 Complex-Vitamin B12 tablet) carboxymethylcellulose sodium 1 % 1 drp ophthalmic-Left QID PRN Dry 07/11/23 06/12/24 eye drops (Artificial Tears Eyes (carboxymethylcellulose)) clotrimazole 10 mg abby 10 mg PO TID PRN fungal 11/28/23 06/12/24 Previous Rx's ?Medication ?Instructions ?Recorded [facility] Bone Stimulator #1 ea 10/09/20 bisacodyl 5 mg tablet,delayed 5 mg PO DAILY #1 tab 11/30/23 release lactulose 20 gram/30 mL oral 20 g (30 mL) PO QID PRN 11/30/23 solution constipation #1 mL acetaminophen 325 mg tablet 325 mg PO Q6H #1 tab 12/13/23 multivitamin 1 tab PO DAILY #90 tabs 12/21/23 sertraline 25 mg tablet 25 mg PO DAILY #90 tabs 12/22/23 meloxicam 15 mg tablet 15 mg PO DAILY #90 tabs 01/15/24 denosumab 60 mg/mL subcutaneous 60 mg subcut [id number] #1 mL 02/08/24 syringe (Prolia) pantoprazole 20 mg tablet,delayed 20 mg PO DAILY #90 tabs 04/04/24 release tramadol 50 mg tablet 50 mg PO DAILY PRN pain #15 tabs 05/20/24 allopurinol 100 mg tablet 100 mg PO DAILY #90 tabs 05/24/24 clopidogrel 75 mg tablet (Plavix) 75 mg PO DAILY #90 tabs 05/25/24 ropinirole 3 mg tablet 3 mg PO DAILY@1800 #90 tabs 06/18/24 prednisone 1 mg tablet 2 mg (2 x 1 mg) PO DAILY #60 tabs 07/12/24 atorvastatin 40 mg tablet 40 mg PO DAILY #30 tabs 08/06/24 folic acid 1 mg tablet 1 mg PO DAILY #90 tabs 08/06/24 metoprolol succinate 25 mg 25 mg PO DAILY #90 tabs 08/08/24 tablet,extended release 24 hr montelukast 10 mg tablet 10 mg PO BEDTIME #90 tabs 08/08/24 calcium 600 mg (as 2 tab PO DAILY #180 tabs 08/28/24 carbonate)-vitamin D3 5 mcg (200 unit) tablet methotrexate sodium 2.5 mg tablet 15 mg (6 x 2.5 mg) PO QWEEK #72 08/28/24 tabs prednisone 5 mg tablet See Rx Instructions PO .COMPLEX 08/28/24 #42 tabs meclizine 25 mg tablet 25 mg PO TID PRN Nausea #60 tabs 09/04/24 acetaminophen 500 mg tablet 500 mg PO Q6H PRN fever or pain 09/09/24 (Tylenol Extra Strength) #14 tabs ibuprofen 800 mg tablet 800 mg PO Q8H PRN pain #14 tabs 09/09/24 lidocaine HCl 2 % mucosal solution 5 ml mucous membrane BID PRN mouth 09/09/24 (Lidocaine Viscous) pain #50 mL cyclobenzaprine 5 mg tablet 5 mg PO BID PRN muscle spasm #10 09/19/24 tabs lidocaine 5 % topical patch 1 patch topical DAILY #15 ea 09/19/24 methocarbamol 750 mg tablet 750 mg PO QID PRN pain #20 tabs 09/24/24 methylprednisolone 4 mg tablets in 4 mg PO DAILY #1 ea 09/24/24 a dose pack (Medrol (Silverio)) Allergies Allergy/AdvReac Type Severity Reaction Status Date / Time alendronate sodium Allergy Severe ANAPHYLAXIS Verified 09/26/24 19:00 [From FOSAMAX] lisinopril [LISINOPRIL] Allergy Severe ANAPHYLAXIS, Verified 09/26/24 19:00 cough clarithromycin Allergy Intermediate CONFUSION, Verified 09/26/24 19:00 [CLARITHROMYCIN] sores on tongue, dry mouth simvastatin [SIMVASTATIN] Allergy Mild DRY Verified 09/26/24 19:00 THROAT, achy, confusion Review of Systems 2 Review of Systems: All other systems are reviewed and are negative Constitutional: Reports as per HPI and Reports no additional constitutional complaints Eyes: Reports as per HPI and Reports no additional eye complaints Reports system reviewed and no additional complaints, except as documented Cardiovascular: Reports as per HPI and Reports no additional cardiovascular complaints Respiratory: Reports as per HPI and Reports no additional respiratory complaints Gastrointestinal: Reports as per HPI and Reports no additional gastrointestinal complaints Genitourinary: Reports no additional female genitourinary complaints Musculoskeletal: Reports no additional musculoskeletal complaints Skin/Breast: Reports system reviewed and no additional complaints, except as docu Psychiatric: Reports no additional psychiatric complaints Endocrine: Reports no additional endocrine complaints Hematologic/Lymphatic: Reports no additional hematologic/lymphatic complaints Allergic/Immunologic: Reports no additional allergic/immunologic complaints Reports system reviewed and no additional complaints, except as documented and Reports Abnormal speech present [facility] Past Medical History Medical History Pre-op chest exam Pre-op examination Meniere disease Transient ischemic attack (TIA) Osteoarthritis of shoulders, bilateral Rheumatoid arthritis Osteoarthritis of carpometacarpal (CMC) joint of right thumb Overweight (BMI 25.0-29.9) High cholesterol Hypertension Thrush, oral Nondisplaced fracture of fifth metatarsal bone, left foot, subsequent encounter for fracture with nonunion Seropositive rheumatoid arthritis Fracture of 5th metatarsal Fracture of fifth metatarsal bone of right foot Polymyalgia rheumatica Anxiety and depression Osteoarthritis Lumbar degenerative disc disease Osteoporosis Gout Restless leg syndrome Hypergammaglobulinemia GERD (gastroesophageal reflux disease) Seizure disorder Hypertension Hypercholesterolemia Asthma Peripheral neuropathy Rheumatoid arthritis Surgical History Corneal transplant status History of arthroplasty of right hip History of total abdominal hysterectomy History of corneal transplant H/O left knee surgery History of open reduction and internal fixation (ORIF) procedure History of cholecystectomy History of appendectomy Family History Family History Father CVD (cardiovascular disease) Mother No problems noted. Social History Social History Household Members: Significant Other Household Members Other:: parter Housing: House Do you presently have visiting nurse or other home services: No Alcohol intake: former Comment: patient uses call light appropriately Patient Tobacco Use Status: Never used Tobacco Smoked in Last 30 Days: No e-Cigarette/Vaping Use: Never Used Second Hand Smoke Exposure: No Advance Directives: Yes Advance Directives on File: Yes Advance Directives Date on File: 07/11/23 service: No Current occupational status: retired Cognitive needs: No Hearing needs: Yes Vision needs: Yes Physical Exam 2 Vital Signs: Vital Signs: Last Vital Signs Temp 98 F 09/27/24 02:00 Pulse 82 09/27/24 02:00 Resp 16 09/27/24 02:00 BP 139/69 09/27/24 02:00 Pulse Ox 97 09/27/24 02:00 O2 Del Method Room Air 09/27/24 02:00 BMI result Body Mass Index 29.0 Vital signs have been reviewed and appear to be correct. Blood pressure elevated. Heart rate normal. Respiratory rate normal. Temperature normal. Oxygen saturation normal. Appearance: Alert. Oriented X3. No acute distress. Head: Normal external exam. Normocephalic. Atraumatic. No Hendrix signs noted. No raccoon eyes noted Eyes: PERRLA. EOMI. Conjunctiva and sclera normal. Eyelids normal. ENT: TM's Normal. Pharynx normal. Uvula midline. Moist mucous membranes. No trismus noted. No drooling noted. No muffled voice noted. Neck: Normal inspection. Neck supple. FROM. No adenopathy. Thyroid Normal. No meningeal signs. No neck mass noted. CVS: Normal heart rate and rhythm. Heart sound normal. No murmurs noted. Pulses normal throughout. Respiratory: No respiratory distress. Painless inspiration. Breath sounds normal. No wheezes/rales/rhonchi noted. Chest nontender. No accessory muscle usage noted or decreased air movement noted. Abdomen: Soft and nontender. Bowel sounds normal in all 4 quadrants. No distention noted. No organomegaly noted. No visible injury noted. Back: No CVA tenderness. Full range of motion noted. Lumbar spine diffuse tenderness in the midline, no deformity, no step-off. Skin: Skin warm and dry. Normal skin color. Normal skin turgor. No rashes/lesions/lacerations noted. Extremities: No lower extremity edema. Extremities exhibit normal range of motion. Extremities nontender. Neuro: Oriented X 3. Cranial nerve exam: II-XII are grossly intact No motor deficit. No sensory deficit. Reflexes normal. Course Reevaluation(s) Reevaluation #1: Patient feels much better after was given Dilaudid/ Toradol IM injection, patient is concern of going home lives with a partner patient do not think she will be able to care for herself requesting to be evaluated for short-term rehab. Will consult case management, and physical therapy. Time: 05:13 Medications Administered Discontinued Medications Generic Name Dose Route Start Last Admin Trade Name Freq PRN Reason Stop Dose Admin Hydromorphone HCl 1 mg 09/26/24 22:08 09/26/24 22:37 Hydromorphone Hcl 1 Mg/Ml Syringe IM 09/26/24 22:09 1 mg ONCE ONE Administration Protocol Ketorolac Tromethamine 15 mg 09/26/24 22:08 09/26/24 22:37 Ketorolac Tromethamine 15 Mg/Ml Vial IM 09/26/24 22:09 15 mg ONCE ONE Administration Medical Decision Making Differential Diagnosis Differential Diagnoses: The differential diagnosis associated with the presentation includes ( Left hip arthritis, lumbar arthritis, L1 compression fracture, pyelonephritis.) Admission/Observation Consideration of admission/observation: Escalation of care including admission/observation considered Lab Data MDM Lab Attestation statement: I reviewed the patient's lab results. 09/26/24 19:09 09/26/24 19:09 Labs: Lab Results 09/26/24 09/27/24 Range/Units 19:09 00:51 WBC 13.1 H (4.8-10.8) X10*3/uL RBC 4.02 L (4.20-5.50) X10*6/uL Hgb 12.3 (12.0-16.0) g/dl Hct 37.0 (37.0-47.0) % MCV 92.0 (80.0-98.0) fL MCH 30.6 (27.0-33.0) pg MCHC 33.2 (31.0-35.0) g/dl RDW 14.2 (11.0-16.0) % Plt Count 274 (160-400) X10*3/uL MPV 9.2 L (9.4-12.3) fL Immature Gran % (Auto) 0.8 H (0.0-0.4) % Neut % (Auto) 89.6 H (45-73) % Lymph % (Auto) 7.4 L (20-40) % [place] % (Auto) 1.5 L (2-11) % Eos % (Auto) 0.2 (0-4) % Baso % (Auto) 0.5 (0-2) % Lymph # (Auto) 1.0 L (1.2-4.9) X10*3/uL [place] # (Auto) 0.2 (0.1-1.2) X10*3/uL Eos # (Auto) 0.0 (0.0-0.4) X10*3/uL Baso # (Auto) 0.1 (0.0-0.2) X10*3/uL Abs Immat Gran (auto) 0.10 H (0.00-0.03) X10*3/uL Absolute Neuts (auto) 11.7 H (2.0-8.3) x10*3/uL Absolute Nucleated RBC 0.000 (0.0-0.012) X10*3/uL Nucleated RBC % (auto) 0.0 (0.0-0.2) /100WBC Sodium 139 (135-145) mmol/L Potassium 4.8 (3.3-5.1) mmol/L Chloride 110 H (96-108) mmol/L Carbon Dioxide 20 L (22-29) mmol/L Anion Gap 14 (12-20) BUN 20 H (9-16) mg/dL Creatinine 0.81 (0.5-1.4) mg/dL Estim Creat Clear Calc 53.6 Estimated GFR > 60 Random Glucose 159 H (60-115) mg/dL Calcium 8.4 D (8.4-10.2) mg/dL Urine Color Yellow Urine Appearance Clear Urine pH 6.0 (5.0-9.0) Ur Specific [place] 1.020 (1.005-1.025) Urine Protein Negative (Neg-Trace) mg/dL Urine Glucose (UA) Negative (Negative) mg/dL Urine Ketones Negative (Negative) mg/dL Urine Blood Negative (Negative) Urine Nitrite Negative (Negative) Ur Leukocyte Esterase Moderate (2+) H (Negative) Urine RBC 0-2 (0-2) /HPF Urine WBC 6-10 H (0-5) /HPF Ur Squamous Epith Cells 0-2 (0-2) /HPF Urine Bacteria None Seen (None Seen) Hyaline Casts 0-2 (0-2) /LPF Independent Interpretation I performed an independent interpretation of an: CT Scan ( lumbar spine/left hip CT:. Chronic grade 1 anterolisthesis of L3 on L4 and L4 on L5, unchanged. 2. Mild superior endplate compression fracture at L1, unchanged. No new fracture or subluxation. 3. Multilevel degenerative disc disease and bilateral facet arthropathy, unchanged.) Radiology Impression Discussion of test interpretation with radiology: I have reviewed the radiologist's reading. Discharge Plan Discharge Clinical Impression: Back pain, Closed compression fracture of L1 vertebra, Arthralgia of hip, left Patient Disposition: Still a Patient Prescriptions: No Action acetaminophen 325 mg tablet 325 mg PO Q6H Qty: 1 0RF multivitamin Tablet 1 tab PO DAILY Qty: 90 0RF sertraline 25 mg tablet 25 mg PO DAILY Qty: 90 3RF meloxicam 15 mg tablet 15 mg PO DAILY Qty: 90 3RF allopurinol 100 mg tablet 100 mg PO DAILY Qty: 90 1RF clopidogrel [Plavix] 75 mg tablet 75 mg PO DAILY Qty: 90 1RF ropinirole 3 mg tablet 3 mg PO DAILY@1800 Qty: 90 2RF prednisone 1 mg tablet 2 mg PO DAILY Qty: 60 3RF atorvastatin 40 mg tablet 40 mg PO DAILY Qty: 30 3RF folic acid 1 mg tablet 1 mg PO DAILY Qty: 90 2RF metoprolol succinate 25 mg tablet extended release 24 hr 25 mg PO DAILY Qty: 90 2RF montelukast 10 mg tablet 10 mg PO BEDTIME Qty: 90 2RF meclizine 25 mg tablet 25 mg PO TID PRN (Reason: Nausea) Qty: 60 2RF Artificial Tears (cmc) 1 % Drops 1 drp OPHTHALMIC-LEFT QID PRN (Reason: Dry Eyes) clotrimazole 10 mg abby 10 mg PO TID PRN (Reason: fungal) bisacodyl 5 mg Tablet,Delayed Release (Dr/Ec) 5 mg PO DAILY Qty: 1 0RF lactulose 20 gram/30 mL Solution 20 g PO QID PRN (Reason: constipation) Qty: 1 0RF cyclobenzaprine 5 mg tablet 5 mg PO BID PRN (Reason: muscle spasm) Qty: 10 0RF lidocaine 5 % adhesive patch,medicated 1 patch topical DAILY Qty: 15 0RF Rx Instructions: leave on most painful area for up to 12 hrs methylprednisolone [Medrol (Silverio)] 4 mg tablets,dose pack 4 mg PO DAILY Qty: 1 0RF Rx Instructions: Take per package instructions methocarbamol 750 mg tablet 750 mg PO QID PRN (Reason: pain) Qty: 20 0RF lidocaine HCl [Lidocaine Viscous] 2 % solution 5 ml mucous membrane BID PRN (Reason: mouth pain) Qty: 50 0RF ibuprofen 800 mg tablet 800 mg PO Q8H PRN (Reason: pain) Qty: 14 0RF acetaminophen [Tylenol Extra Strength] 500 mg tablet 500 mg PO Q6H PRN (Reason: fever or pain) Qty: 14 0RF vitamin B complex [B Complex-Vitamin B12] Tablet 1 tab PO DAILY pantoprazole 20 mg tablet,delayed release (DR/EC) 20 mg PO DAILY Qty: 90 3RF (DME) CMF Bone Stimulator See Rx Instructions .Route .MEDSUPPLY Qty: 1 0RF Rx Instructions: As directed Prolia 60 mg/mL syringe 60 mg subcut [id number] Qty: 1 1RF tramadol 50 mg tablet 50 mg PO DAILY PRN (Reason: pain) Qty: 15 2RF prednisone 5 mg tablet See Rx Instructions PO .COMPLEX Qty: 42 0RF Rx Instructions: Take 3 tabs daily for 1 week then 2 tabs daily for 1 week then 1 tab daily for 1 week then stop calcium carbonate-vitamin D3 600 mg-5 mcg (200 unit) tablet 2 tab PO DAILY Qty: 180 1RF methotrexate sodium 2.5 mg tablet 15 mg PO QWEEK Qty: 72 0RF Print Language: Citizen [place]
[2024-09-26] MEDS: Ketorolac Tromethamine 15 MG/ML VIAL IM (22:37)
[2024-09-26] MEDS: HYDROmorphone HCl 1 MG/ML SYRINGE IM (22:37)
[2024-09-27 00:56] LABS: Appearance Urine Clear; Color Urine Yellow; Glucose Urine UA Negative (Negative); Leukocyte Esterase Urine Moderate (2+) (Negative); Nitrite Urine Negative (Negative); UMIC TRIGGER UACC YES; Urine Blood Negative (Negative); Urine Ketones Negative (Negative); Urine Protein Negative (Neg-Trace)
[2024-09-27 01:01] LABS: Bacteria Urine None Seen (None Seen); Hyaline Casts Urine 0-2 /LPF (0-2); RBC Urine 0-2 /HPF (0-2); Squamous Epithelial Cell Urine 0-2 /HPF (0-2); UACC Culture Trigger YES
[2024-09-27 02:00] VITALS: BP 139/69; PULSE 82; RESP 16; TEMP 36.6; O2SAT 97
[2024-09-27 05:56] VITALS: BP 162/79; PULSE 75; RESP 16; TEMP 36.4; O2SAT 95
--- NOTE | 2024-09-27 06:35 | PC.NURSE ---
Pt resting on stretcher eyes closed, skin pwd respirations even unlabored. VSS. Awaiting PT/CM, aware of plan of care.
--- NOTE | 2024-09-27 08:18 | PC.NURSE ---
covid swab obtained/sent to lab. med rec completed. provider notified/aware.
[2024-09-27 08:54] VITALS: BP 162/79; PULSE 75; O2SAT 95
[2024-09-27 08:56] LABS: COVID-19 Test Negative (Negative); IDNOW Serial# 152EDE1D
[2024-09-27] MEDS: Docusate Sodium 100 MG CAPSULE PO ×2 (09:49→21:48)
[2024-09-27] MEDS: Clopidogrel Bisulfate 75 MG TABLET PO (09:49)
[2024-09-27] MEDS: Atorvastatin Calcium 40 MG TABLET PO (09:49)
[2024-09-27] MEDS: allopurinoL 100 MG TABLET PO (09:49)
[2024-09-27] MEDS: Metoprolol Succinate ER 25 MG TAB.ER.24H PO (09:49)
[2024-09-27] MEDS: Lidocaine 4 % Patch ADH..PATCH 1 PATCH TRANSDERMA (09:49)
[2024-09-27] MEDS: Folic Acid 1 MG TABLET PO (09:49)
--- NOTE | 2024-09-27 09:52 | PHA.MEDREC ---
Pharmacy Consult ? Medication Reconciliation Pharmacy has reviewed the medication reconciliation partially done by nursing staff and also went to talk to patient to complete med rec. Patient confirmed she still takes folic acid 1 mg daily (even though I reminded her that it was last fill 10/02/23), she takes meclizine 50 mg daily in the morning as scheduled dose (helps with dizziness for the day),she finished day 3 of the medrol dose david yesterday. She takes methotrexate 15 mg on fridays (due for the dose today 09/27/24). She no longer takes clotrimazole, denosumab, pantoprazole (she takes omeprazole 20 mg otc daily instead), prednisone 1 mg nor sertraline 25 mg. She thinks she's supposed to be taking prednisone 5 mg tapering dose but not sure where is with the tapering schedule and she hasn't been taking it. Last dose of her medications was yesterday morning.
--- NOTE | 2024-09-27 09:53 | PC.NURSE ---
medication administered per provider order. lidocaine patch applied to LL back. effectiveness pending. medication from pharmacy not delivered - will administer when able. pt otherwise continues to rest in no apparent distress. pending PT/CM consult at this time. no sob/wob noted. respirations even/unlabored. plan of care ongoing. call mota placed within reach.
--- NOTE | 2024-09-27 10:54 | PC.NURSE ---
pt transitioned into hospital bed to promote comfort.
[2024-09-27 12:01] VITALS: BP 147/75; PULSE 75; RESP 16; TEMP 36.7; O2SAT 95
[2024-09-27] MEDS: Pantoprazole Sodium 20 MG TABLET.DR PO (12:02)
[2024-09-27] MEDS: methylPREDNISolone 4 MG TABLET PO ×3 (12:13→21:49)
[2024-09-27] MEDS: metHOTREXate sodium 2.5 MG TABLET 15 MG PO (12:13)
--- NOTE | 2024-09-27 12:13 | PC.NURSE ---
delay in medication admiistration d/t medication being unverified by pharmacy and then not being readily available in the pyxis. medication delivered/dispensed to pt.
--- NOTE | 2024-09-27 12:31 | MHC.CM.ED ---
Received case management consult overnight from Dr Nielsen. Patient came to the ER due to back pain. Found to have L1 compression fx. Physical therapy eval completed. Acute rehab is recommended. Patient has been to [facility] in the past. [facility] is able to offer a bed. Patient can leave 09/28 at 1230pm. Zeus SOUZA booked. [facility] with chart. Patient aware and agreeable. Copy of HCP verified to be on file. Patient, Abby CERVANTES and Jaelyn JUDGE aware. Continue to monitor for d/c needs.
[2024-09-27] MEDS: oxyCODONE HCl Immed Release 5 MG TABLET PO (14:04)
--- NOTE | 2024-09-27 14:06 | PC.NURSE ---
1:1 assist needed to ambulate to the restroom. pt verbalizing increase in lower back pain. states pain is a 10/10. wincing/groaning noted. pt medicated w/ prn oxycodone. effectiveness pending. pt placed/turned/repositioned back into bed. bed alarm turned on for safety precautions. call mota placed within reach.
[2024-09-27 16:14] VITALS: BP 157/57; PULSE 62; RESP 16; TEMP 36.2; O2SAT 95
--- NOTE | 2024-09-27 16:26 | MHC.EDTECH ---
This pct assumed care of Patient at 1500 ,vitals taken ,Patient belongings list done ,Patient was asked to change into hospital attire ,But Patient said she is more comfortable with her own clothes on ,RN Abby nj .
[2024-09-27] MEDS: rOPINIRole HCL 1 MG TABLET 3 MG PO (17:43)
--- NOTE | 2024-09-27 19:26 | PC.NURSE ---
this rn assumed care of pt, pt a&ox4, respirations even and unlabored. no acute distress noted. vss.
[2024-09-27 21:13] VITALS: BP 196/77; PULSE 74; RESP 16; TEMP 36.7; O2SAT 97
--- NOTE | 2024-09-27 21:18 | PC.NURSE ---
pharmacy to bring up pt medication at this time.
--- NOTE | 2024-09-27 21:21 | MHC.EDTECH ---
Patient was assisted unto bedside commode ,void ,Cherelle care given ,back into bed .Vitals taken ,RN aware of Patient high blood Pressure ,Patient said she has 8of 10 Pain .For dinner Patient ate 25 % of meal and drank 240 ml fluids .
[2024-09-27] MEDS: Montelukast Sodium 10 MG TABLET PO (21:48)
[2024-09-28] MEDS: oxyCODONE HCl Immed Release 5 MG TABLET PO ×2 (03:29→12:16)
--- NOTE | 2024-09-28 03:32 | PC.NURSE ---
pt awake and reporting 10/10 lower back pain at this time, pt medicated per mar, tolerated well with water.
[2024-09-28] MEDS: Pantoprazole Sodium 20 MG TABLET.DR PO (06:13)
[2024-09-28 06:17] VITALS: BP 180/73; PULSE 78; RESP 18; TEMP 36.6; O2SAT 97
--- NOTE | 2024-09-28 08:25 | MHC.EDTECH ---
Mara burkett completed and helped Patient got to the bathroom.
--- NOTE | 2024-09-28 08:31 | MHC.EDTECH ---
Patient got back the bed and resting comfortably with call mota in her reach
[2024-09-28] MEDS: Clopidogrel Bisulfate 75 MG TABLET PO (08:36)
[2024-09-28] MEDS: Acetaminophen 325 MG TABLET 650 MG PO (08:36)
[2024-09-28] MEDS: Metoprolol Succinate ER 25 MG TAB.ER.24H PO (08:37)
[2024-09-28] MEDS: Atorvastatin Calcium 40 MG TABLET PO (08:37)
[2024-09-28] MEDS: Folic Acid 1 MG TABLET PO (08:37)
[2024-09-28] MEDS: Docusate Sodium 100 MG CAPSULE PO (08:37)
[2024-09-28] MEDS: allopurinoL 100 MG TABLET PO (08:37)
--- NOTE | 2024-09-28 08:55 | PC.NURSE ---
patient alert and oriented with even and unlabored respirations. medicated per the MAR. ambulated independently to recliner, resting in recliner with call mota within reach.
[2024-09-28] MEDS: methylPREDNISolone 4 MG TABLET PO (10:02)
[2024-09-28 12:38] VITALS: BP 180/73; PULSE 78; RESP 18; TEMP 36.6; O2SAT 97
== END 2024-09-28 12:39 | disposition skilled nursing facility (03) ==
PROVIDERS: Emergency Provider Emergency Medicine; PCP Internal Medicine
DX: M48.56XA Collapsed vertebra, not elsewhere classified, lumbar region, initial encounter for fracture (principal); M54.50 Low back pain, unspecified; M25.552 Pain in left hip; R26.81 Unsteadiness on feet; Z11.52 Encounter for screening for COVID-19; Z79.899 Other long term (current) drug therapy
CPT/HCPCS: 36415; 72100; 73700; 80048; 81001; 85025; 87086; 87635; 96372; 97162; 99285; J1171; J1885

== ENCOUNTER 2024-11-07 11:23 | Outpatient (AMB) | payer MEDICARE, OTHER, SELFPAY ==
--- NOTE | 2024-11-07 11:26 | MHC.PC.OV ---
Vital Signs 11/07/24 11:28 Height 5 ft 6 in Weight 169 lb 2 oz BMI 27.3 BP 130/78 Blood Pressure Location Lt brachial Position Sitting Pulse 74 Pulse Source Pulse Oximeter Pulse Oximetry (%) 98 Oxygen Delivery Method Room Air Intake [place] [facility] [place] Low [place] pain no injury per ems Intake Note: Patient is here for hospital discharge follow up. [place] [facility] [place] [facility]. Clip Coater Required: No Air Value Tester: Not Required per policy Accompanied by: Self / Same As Patient Allergies alendronate sodium [From FOSAMAX] Allergy (Severe, Verified 11/07/24 11:28) ANAPHYLAXIS lisinopril [LISINOPRIL] Allergy (Severe, Verified 11/07/24 11:28) ANAPHYLAXIS, cough clarithromycin [CLARITHROMYCIN] Allergy (Intermediate, Verified 11/07/24 11:28) CONFUSION, sores on tongue, dry mouth simvastatin [SIMVASTATIN] Allergy (Mild, Verified 11/07/24 11:28) DRY THROAT, achy, confusion Medication List - Last Reconciled 11/07/24 by Ning Griffiths PA-C acetaminophen (Tylenol Extra Strength) 500 mg PO Q6H PRN allopurinol 100 mg PO DAILY amlodipine 5 mg PO DAILY atorvastatin 40 mg PO DAILY bisacodyl 5 mg PO DAILY PRN clopidogrel (Plavix) 75 mg PO DAILY [CMF Bone Stimulator As directed] folic acid 1 mg PO DAILY gabapentin mg PO ibuprofen 800 mg PO Q8H PRN lactulose 20 grams (30 mL) PO QID PRN lidocaine 5% 1 patch topical DAILY meclizine 50 mg PO DAILY methocarbamol 750 mg PO QID PRN methotrexate sodium 15 mg (6 x 2.5 mg) PO QWEEK methylprednisolone (Medrol (Silverio)) 4 mg PO DAILY metoprolol succinate ER 25 mg PO DAILY montelukast 10 mg PO BEDTIME multivitamin 1 tab PO DAILY omeprazole 20 mg PO DAILY@0630 prednisone Take 3 tabs daily for 1 week then 2 tabs daily for 1 week then 1 tab daily for 1 week then stop ropinirole 3 mg PO DAILY@1800 tramadol 50 mg PO DAILY PRN vitamin B complex (B Complex-Vitamin B12 tablet) 1 tab PO DAILY Tobacco use date assessed: 11/07/24 Fall risk assessment: No Falls in past year Last assessed Fall Risk: 11/07/24 Dental Screening Dental Screen Date: 11/07/24 Did you have a dental visit in the last 12 months?: Yes Did you have a dental problem in the last 6 months where you did not have access to dental care?: No Was dental information given to patient?: Patient has dentist H[place] [facility] [place] Low back pain no injury per ems HPI Details 84-year-old female with past medical history of asthma, hypercholesterolemia, hypertension, GERD, osteoporosis, rheumatoid arthritis, polymyalgia rheumatica and generalized anxiety disorder last seen by Dr. Salomon 08/2024 coming in for hospital discharge follow up. In review of the notes, patient was seen [place] [facility] [place]24 for persistent low back pain after CT showed L1 compression fracture of indeterminate age. Patient was given Dilaudid and Toradol IM injection and requested short-term rehab. Patient was transferred to [facility] for short-term rehab. About 2 months ago patient started having intense low back pain without any precursor. She was found to have L1 compression fracture of indeterminate age and also has history of lumbar spine arthritis. She also mentions today she has been having increased left shoulder pain and does have a history of osteoarthritis in bilateral shoulders. The pain is in worsening of the left shoulder and is now radiating down the left arm denies any chest pains or shortness of breath. She has pain primarily while lifting the arm above shoulder height. She has been ambulating with a walker and continues to do her physical therapy exercises at home. She uses multiple medications for her back pain including muscle relaxer, ibuprofen, tramadol, gabapentin and Tylenol. She is requesting injections in the spine for further management. [facility] Medical History Pre-op chest exam Pre-op examination Meniere disease Transient ischemic attack (TIA) Osteoarthritis of shoulders, bilateral Rheumatoid arthritis Osteoarthritis of carpometacarpal (CMC) joint of right thumb Overweight (BMI 25.0-29.9) High cholesterol Hypertension Thrush, oral Nondisplaced fracture of fifth metatarsal bone, left foot, subsequent encounter for fracture with nonunion Seropositive rheumatoid arthritis Fracture of 5th metatarsal Fracture of fifth metatarsal bone of right foot Polymyalgia rheumatica Anxiety and depression Osteoarthritis Lumbar degenerative disc disease Osteoporosis Gout Restless leg syndrome Hypergammaglobulinemia GERD (gastroesophageal reflux disease) Seizure disorder Hypertension Hypercholesterolemia Asthma Peripheral neuropathy Rheumatoid arthritis Surgical History Corneal transplant status History of arthroplasty of right hip History of total abdominal hysterectomy History of corneal transplant H/O left knee surgery History of open reduction and internal fixation (ORIF) procedure History of cholecystectomy History of appendectomy Family History Father CVD (cardiovascular disease) Mother No problems noted. Social History Household Members: Significant Other Household Members Other:: parter Housing: House Do you presently have visiting nurse or other home services: No Alcohol intake: current Alcohol intake frequency: holidays/special occasions only Alcohol type: wine Comment: patient uses call light appropriately Patient Tobacco Use Status: Never used Tobacco e-Cigarette/Vaping Use: Never Used Second Hand Smoke Exposure: No Advance Directives Date on File: 07/11/23 service: No Current occupational status: retired Cognitive needs: Yes (walker) Hearing needs: Yes Vision needs: Yes Questionnaire PHQ-9 Over the last 2 weeks, how often have you been bothered by any of the following problems? 1. Little interest or pleasure in doing things: not at all 2. Feeling down, depressed, or hopeless: several days 3. Trouble falling or staying asleep, or sleeping too much: not at all 4. Feeling tired or having little energy: more than half the days 5. Poor appetite or overeating: not at all 6. Feeling bad about yourself - or that you are a failure or have let yourself or your family down: not at all 7. Trouble concentrating on things, such as reading the newspaper or watching television: not at all 8. Moving or speaking so slowly that other people could have noticed. Or the opposite - being so fidgety or restless that you have been moving around a lot more than usual: not at all 9. Thoughts that you would be better off or of hurting yourself in some way: not at all Total score: 3 Depression Screening Interpretation: Positive Depression Screening Done: Yes Source: Developed by Drs. [place] L. Annalise Salmon Kurt Kroenke and colleagues, with an educational shiela from [employer]. Thrive Questionnaire Date Thrive assessed: 11/07/24 I am a: Patient What is your living situation today?: I have a steady place to live Within the past 12 months, did the food you bought not last and you didn't have the money to get more?: Never true Within the past 12 months, did you worry whether your food would run out before you got money to buy more?: Never true Do you have trouble paying for medicines?: No Do you have trouble getting transportation to medical appointments?: No Do you have trouble paying your heating and electricity bill?: No Do you have trouble taking care of your child, family member or friend?: No Do you have trouble with day-to-day activities such as bathing, preparing meals, shopping, managing finances, etc.?: No Are you currently unemployed and looking for a job?: No Are you interested in more education?: No Please select the resources that you would like help with: None Currently or been in a relationship where the following occur: No concerns reported THRIVE Score: 0 AUDIT C Alcohol Use Questionnaire (AUDIT-C) 1. How often do you have a drink containing alcohol?: Never 2. How many drinks containing alcohol do you have on a typical day when you are drinking?: 1 or 2 3. How often do you have six or more drinks on one occasion?: Never Total Score: 0 LIYA-7 AMB Questionnaire LIYA-7 Date LIYA - 7 assessed: 11/07/24 Feeling nervous, anxious, or on edge: 1 = Several days Not being able to stop or control worryin = Not at all Worrying too much about different things: 0 = Not at all Trouble relaxin = Not at all Being so restless that it is hard to sit still: 1 = Several days Becoming easily annoyed or irritable: 0 = Not at all Feeling afraid as if something awful might happen: 0 = Not at all Total LIYA-7 score (0-4 normal; 5-9 mild; 10-14 moderate; 15-21 severe): 2 Source: Developed by Annalise Jeter Kurt Kroenke and colleagues, with an educational shiela from [employer]. Review of Systems Const Denies body aches, Denies chills, Denies fever(s), Denies headache(s) and Denies poor appetite Eyes Reports no additional complaints ENT Denies headache(s) Card Denies chest pain, Denies syncope, Denies edema, Denies irregular heart rhythm, Denies lightheadedness and Denies dyspnea Resp Denies cough and Denies dyspnea GI Reports no additional complaints Reports no additional complaints Musc Details: Left shoulder pain Reports abnormal gait and Reports back pain Skin/Breast Reports system reviewed and no additional complaints, except as documented Neuro Reports abnormal gait, Denies syncope and Denies headache(s) Psych Reports no additional complaints Physical exam (Primary Care) Tobacco/Smoking Status: Tobacco use Status Tobacco use date assessed 08/15/24 11/07/24 11:26 Patient Tobacco Use Status Never used Tobacco 11/07/24 11:26 e-Cigarette/Vaping Use Never Used 11/07/24 11:26 Depression Screening Interpretation: Positive Thrive Assessment: Date of Thrive Assessment Date Thrive assessed 04/04/24 11/07/24 11:26 Currently or been in a relationship where the following occur: No concerns reported Const General: cooperative, healthy appearing, comfortable and no acute distress Orientation/consciousness: patient oriented x3 HENMT Head: Yes normocephalic Ears: hearing grossly normal bilaterally General nose exam: Normal external nose present Eyes General: appearance normal, both eyes and all related structures Conjunctivae: conjunctivae normal Neck Neck: Yes full ROM and Yes no lymphadenopathy Resp Effort & Inspection: normal respiratory effort Auscultation: clear to auscultation bilaterally, no crackles, no rales, no rhonchi and no wheezes Cardio Rate: regular rate Rhythm: regular rhythm Back/Spine/Pelvis Other: Pain to palpation over lumbar spine and paraspinal muscles Skin General skin exam: no rashes or lesions noted Neuro General: patient oriented x3 Gait exam (Neuro): Normal gait present Extrem Other: Pain to palpation over left shoulder. Limited range of motion of left shoulder and pain with extension and internal rotation of left shoulder General: Yes normal to inspection, Yes full ROM and No edema Psych Affect: normal affect Attitude: cooperative Insight: Good insight present (Psych) Judgement: Good judgement present (Psych) Coding Level of Care Code Est Pt Level 3 (63743) Diagnoses Spondylosis of lumbar spine M47.816 Compression fracture of L1 lumbar vertebra S32.010A Osteoarthritis of shoulders, bilateral M19.011; M19.012 Assessment & Plan Assessment & Plan (1) Spondylosis of lumbar spine: Code(s): M47.816 - Spondylosis without myelopathy or radiculopathy, lumbar region Category: Medical Plan: Patient has chronic pain in the lumbar spine has had spinal injections in the past with good improvement. Referral placed to pain management at this time. (2) Compression fracture of L1 lumbar vertebra: Comment: indeterminate age Code(s): S32.010A - Wedge compression fracture of first lumbar vertebra, initial encounter for closed fracture Category: Medical Plan: Patient having lumbar compression fracture of indeterminate age as seen on CT. She underwent rehab and physical therapy and continues to do physical therapy at home. Currently using methocarbamol, Tylenol, ibuprofen, but gabapentin, tramadol for pain with mild relief. She has had lumbar spine injections in the past referral placed to pain management at this time. (3) Osteoarthritis of shoulders, bilateral: Code(s): M19.011 - Primary osteoarthritis, right shoulder; M19.012 - Primary osteoarthritis, left shoulder Category: Medical Plan: Patient complaining of increased left shoulder pain. She does have chronic shoulder pain in bilateral shoulders and osteoarthritis seen on x-ray November 2022. Currently using Tylenol and ibuprofen to manage her pain but is requesting injections. Referral placed to Orthopedics. Plan This note was constructed using voice recognition software. While every effort has been made to ensure accuracy and farmworker [employer], still areas may have been included sometimes these areas may affect the content or meeting of the given symptoms. Total time spent caring for the patient today was 20 minutes. This includes time spent before the visit reviewing the chart, time spent during the visit, and time spent after the visit and documentation. Orders: Referrals Pain Management Referral M47.816 - Spondylosis without myelopathy or radiculopathy, lumbar region, S32.010A - Wedge compression fracture of first lumbar vertebra, initial encounter for closed fracture Orthopedics Referral M19.011 - Primary osteoarthritis, right shoulder, M19.012 - Primary osteoarthritis, left shoulder Medications: Refilled tramadol 50 mg PO DAILY PRN 15 tabs 2RF pain M19.011 - Primary osteoarthritis, right shoulder, M19.012 - Primary osteoarthritis, left shoulder
[2024-11-07 11:28] VITALS: BP 130/78; PULSE 74; O2SAT 98; BMI 27.3
== END 2024-11-07 12:08 | disposition home or self-care (01) ==
PROVIDERS: PCP Internal Medicine
DX: M47.816 Spondylosis without myelopathy or radiculopathy, lumbar region (principal); S32.010A Wedge compression fracture of first lumbar vertebra, initial encounter for closed fracture; M19.011 Primary osteoarthritis, right shoulder; M19.012 Primary osteoarthritis, left shoulder

== ENCOUNTER 2024-11-20 13:37 | Outpatient (AMB) | payer MEDICARE, OTHER, SELFPAY ==
--- NOTE | 2024-11-20 13:51 | MHC.OFFVIS ---
Vital Signs 11/20/24 13:52 Height 5 ft 6 in Weight 167 lb BMI 27.0 BP 152/72 H Blood Pressure Location Rt brachial Position Sitting Pulse 72 Pulse Source Pulse Oximeter Pulse Oximetry (%) 98 Oxygen Delivery Method Room Air Intake Visit Reasons: Wedge compression fracture of 1st lumbar vertebra Human Resource Analyst Required: No Allergies alendronate sodium [From FOSAMAX] Allergy (Severe, Verified 11/20/24 13:51) ANAPHYLAXIS lisinopril [LISINOPRIL] Allergy (Severe, Verified 11/20/24 13:51) ANAPHYLAXIS, cough clarithromycin [CLARITHROMYCIN] Allergy (Intermediate, Verified 11/20/24 13:51) CONFUSION, sores on tongue, dry mouth simvastatin [SIMVASTATIN] Allergy (Mild, Verified 11/20/24 13:51) DRY THROAT, achy, confusion Medication List - Last Reconciled 11/20/24 by Jaci Thomas, RECOVERY COACH acetaminophen (Tylenol Extra Strength) 500 mg PO Q6H PRN allopurinol 100 mg PO DAILY amlodipine 5 mg PO DAILY atorvastatin 40 mg PO DAILY bisacodyl 5 mg PO DAILY PRN clopidogrel (Plavix) 75 mg PO DAILY [CMF Bone Stimulator As directed] folic acid 1 mg PO DAILY gabapentin mg PO ibuprofen 800 mg PO Q8H PRN lactulose 20 grams (30 mL) PO QID PRN lidocaine 5% 1 patch topical DAILY meclizine 50 mg PO DAILY methocarbamol 750 mg PO QID PRN methotrexate sodium 15 mg (6 x 2.5 mg) PO QWEEK methylprednisolone (Medrol (Silverio)) 4 mg PO DAILY metoprolol succinate ER 25 mg PO DAILY montelukast 10 mg PO BEDTIME multivitamin 1 tab PO DAILY omeprazole 20 mg PO DAILY@0630 prednisone Take 3 tabs daily for 1 week then 2 tabs daily for 1 week then 1 tab daily for 1 week then stop ropinirole 3 mg PO DAILY@1800 tramadol 50 mg PO DAILY PRN vitamin B complex (B Complex-Vitamin B12 tablet) 1 tab PO DAILY HPI Comments Details: Ellie Falcon) is in my office today after significant period of absence. She reports severe pain in the lower lumbar spine. She reports pain exacerbates with flexing forward and lifting things from the ground. On physical examination attention was attracted to signs of sacroiliitis. In the past she received from me diagnostic sacroiliac joint injection with 60% pain improvement. Now she reports severe pain 10/10 today, I feel like I have to perform again diagnostic sacroiliac joint injection. This patient was diagnose recently with L1 compression fracture. There is widespread diffuse osteopenia on her x-rays well. Therefore injection of the steroids will not be a good idea, however we can try peripheral nerve stimulation sprint versus peripheral nerve sprint stimulation cure on X. In regarding of her or diagnostic medial branch block she reported significant pain relieve on the left side immediately after the injection however she reported pain aggravation on the right side due to injection immediately after injection.? However on bilateral sacroiliac joint diagnostic injection on 12/13/2022 she reported 50-60% pain improvement after the injection.? The pain of this patient is most likely multifactorial.? She has significant rheumatoid arthritis which effects her shoulder joints her lumbar spine as well as her sacroiliac joints.? I offered her to perform bilateral sacroiliac joint injection therapeutic this time.? I will schedule this procedure without sedation.? She has an appointment with Dr. Guidry for evaluation of her shoulder pain.? Because of her severe osteopenia I would not recommend steroid injections for this patient. [facility] Medical History Pre-op chest exam Pre-op examination Meniere disease Transient ischemic attack (TIA) Osteoarthritis of shoulders, bilateral Rheumatoid arthritis Osteoarthritis of carpometacarpal (CMC) joint of right thumb Overweight (BMI 25.0-29.9) High cholesterol Hypertension Thrush, oral Nondisplaced fracture of fifth metatarsal bone, left foot, subsequent encounter for fracture with nonunion Seropositive rheumatoid arthritis Fracture of 5th metatarsal Fracture of fifth metatarsal bone of right foot Polymyalgia rheumatica Anxiety and depression Osteoarthritis Lumbar degenerative disc disease Osteoporosis Gout Restless leg syndrome Hypergammaglobulinemia GERD (gastroesophageal reflux disease) Seizure disorder Hypertension Hypercholesterolemia Asthma Peripheral neuropathy Rheumatoid arthritis Surgical History Corneal transplant status History of arthroplasty of right hip History of total abdominal hysterectomy History of corneal transplant H/O left knee surgery History of open reduction and internal fixation (ORIF) procedure History of cholecystectomy History of appendectomy Family History Father CVD (cardiovascular disease) Mother No problems noted. Social History (Updated 11/07/24 @ 11:40 by FREDIS Machuca) Household Members: Significant Other Household Members Other:: parter Housing: House Do you presently have visiting nurse or other home services: No Alcohol intake: current Alcohol intake frequency: holidays/special occasions only Alcohol type: wine Comment: patient uses call light appropriately Patient Tobacco Use Status: Never used Tobacco e-Cigarette/Vaping Use: Never Used Second Hand Smoke Exposure: No Advance Directives Date on File: 07/11/23 service: No Current occupational status: retired Cognitive needs: Yes (walker) Hearing needs: Yes Vision needs: Yes Review of Systems Const All systems reviewed & are unremarkable except as noted in HPI and below Physical Exam Vital Signs: Last Vital Signs Pulse 72 11/20/24 13:52 BP 152/72 H 11/20/24 13:52 Pulse Ox 98 11/20/24 13:52 Oxygen Delivery Method Room Air 11/20/24 13:52 BMI result Body Mass Index 27.0 Const General: cooperative, comfortable and no acute distress Nutritional Appearance: well nourished Orientation/consciousness: patient oriented x3 Limitations: physical limitations Chest Chest palpation & inspection: normal inspection of the chest Resp Effort & Inspection: normal respiratory effort, able to speak in complete sentences, normal respiratory pattern, no audible wheezes, no cough, respiratory effort not decreased, no grunting and not labored Cardio Jugular venous distension: no JVD GI Inspection: Yes normal to inspection Back/Spine/Pelvis Other: Tenderness on palpation in paraspinal spinal region of lumbar spine.. Danial test is negative bilaterally however pelvis compression test, thigh thrust test, Gaenslen test positive bilaterally. Fourteen finger test is positive bilaterally more on the left. Neuro General: patient oriented x3 Results Reviewed Results Reviewed: On the recent CT scan and recent x-ray there is compression fracture of L1 vertebral body. Assessment & Plan Assessment & Plan (1) Rheumatoid arthritis: Code(s): M06.9 - Rheumatoid arthritis, unspecified Category: Medical (2) Spondylosis of lumbar spine: Code(s): M47.816 - Spondylosis without myelopathy or radiculopathy, lumbar region Category: Medical (3) Sacroiliitis: Code(s): M46.1 - Sacroiliitis, not elsewhere classified Category: Medical (4) Pain of both sacroiliac joints: Code(s): M53.3 - Sacrococcygeal disorders, not elsewhere classified Category: Medical (5) Chronic pain syndrome: Code(s): G89.4 - Chronic pain syndrome Category: Medical (6) Sacroiliac joint dysfunction of both sides: Code(s): M53.3 - Sacrococcygeal disorders, not elsewhere classified Category: Medical (7) Compression fracture of L1 lumbar vertebra: Comment: indeterminate age Code(s): S32.010A - Wedge compression fracture of first lumbar vertebra, initial encounter for closed fracture Category: Medical Plan Medial branch block injection on 12/06/2022 resulted in profound pain relieve on the left side however significant aggravation of the pain on the right side. Sacroiliac joint injection resulted in 50-60% pain improvement on bilateral pain. I offered this patient to perform sacroiliac joint injection as well as peripheral nerve stimulations. S I will schedule her for repeat diagnostic sacroiliac joint injection. Unfortunately with her severe osteoporosis sacroiliac joint steroid injections would be contraindicated for this patient. Therefore we would need to consider peripheral nerve stimulation sprint versus peripheral nerve stimulation cure on X. This patient is suffering from seropositive rheumatoid arthritis and she is under care of Dr. Pinto receiving DMARDS. Coding Level of Care Code Est Pt Level 3 (59597) Diagnoses Rheumatoid arthritis M06.9 Spondylosis of lumbar spine M47.816 Sacroiliitis M46.1 Pain of both sacroiliac joints M53.3 Chronic pain syndrome G89.4 Sacroiliac joint dysfunction of both sides M53.3 Compression fracture of L1 lumbar vertebra S32.010A
[2024-11-20 13:52] VITALS: BP 152/72; PULSE 72; O2SAT 98; BMI 27.0
== END 2024-11-20 14:14 | disposition home or self-care (01) ==
PROVIDERS: PCP Internal Medicine; Visit Provider Anesthesiology
DX: M06.9 Rheumatoid arthritis, unspecified (principal); M47.816 Spondylosis without myelopathy or radiculopathy, lumbar region; M46.1 Sacroiliitis, not elsewhere classified; M53.3 Sacrococcygeal disorders, not elsewhere classified; G89.4 Chronic pain syndrome; S32.010A Wedge compression fracture of first lumbar vertebra, initial encounter for closed fracture
CPT/HCPCS: 99213

== ENCOUNTER → 2024-11-20 13:37 | Outpatient (BNVA) | payer MEDICARE, OTHER, SELFPAY | PROVIDERS: PCP Internal Medicine; Visit Provider Anesthesiology | DX: M06.9 Rheumatoid arthritis, unspecified (principal); M47.816 Spondylosis without myelopathy or radiculopathy, lumbar region; M46.1 Sacroiliitis, not elsewhere classified; M53.3 Sacrococcygeal disorders, not elsewhere classified; G89.4 Chronic pain syndrome; S32.010A Wedge compression fracture of first lumbar vertebra, initial encounter for closed fracture; X58.XXXA Exposure to other specified factors, initial encounter; Y93.9 Activity, unspecified; Y92.9 Unspecified place or not applicable; Y99.9 Unspecified external cause status | CPT/HCPCS: 99212 ==

== ENCOUNTER 2024-11-25 11:36 | Outpatient (REF) | payer MEDICARE, OTHER, SELFPAY ==
--- NOTE | ~2024-11-25 | XR_ITS ---
EXAMINATION: XR SHOULDER 2 OR MORE VIEWS LEFT HISTORY: M25.519 - Pain in unspecified shoulder COMPARISON: Comparison is made with the prior examination dated 11/28/2022. FINDINGS: Three views of the left shoulder are submitted. Osseous mineralization is normal. There is no fracture or dislocation. There is severe osteoarthritis of the glenohumeral joint with joint space narrowing and osteophyte formation. The AC joint is maintained. The soft tissues are unremarkable. XR/XR shoulder LT min 2V IMPRESSION: Severe osteoarthritis of the glenohumeral joint. Electronically signed by: Motnana Beard MD 11/26/2024 08:21 AM [facility]
--- NOTE | ~2024-11-25 | XR_ITS ---
EXAMINATION: XR SHOULDER 2 OR MORE VIEWS RIGHT HISTORY: M25.519 - Pain in unspecified shoulder COMPARISON: Comparison is made with the prior examination dated 11/28/2022. FINDINGS: Three views of the right shoulder are submitted. Osseous mineralization is normal. There is no fracture or dislocation. There is moderate narrowing of the glenohumeral joint. The AC joint is maintained. The soft tissues are unremarkable. XR/XR shoulder RT min 2V IMPRESSION: Moderate narrowing of the glenohumeral joint. Electronically signed by: Montana Beard MD 11/26/2024 08:22 AM [facility]
== END 2024-11-25 11:37 | disposition home or self-care (01) ==
LOC: HO.HOSX 11:36
PROVIDERS: Visit Provider Orthopaedic Surgery
DX: M19.011 Primary osteoarthritis, right shoulder (principal); M25.511 Pain in right shoulder; M25.512 Pain in left shoulder; M19.012 Primary osteoarthritis, left shoulder
CPT/HCPCS: 20610; 73030; 99212; J0665; J1100; J2003

== ENCOUNTER 2024-11-25 13:13 | Outpatient (AMB) | payer MEDICARE, OTHER, SELFPAY ==
--- NOTE | 2024-11-25 13:16 | MHC.OFFVIS ---
Intake Visit Reasons: New Prob - Bilateral Shoulder Pain - L>R Intake Note: Ellie Rodriguez is an 84 year old right hand dominant female who presents today for a new problem visit with complaints of Bilateral Shoulder pain; Left worse than right. Patient reports that her shoulder pain is radiating down the arm and increases with ROM particularly above shoulder height. Patient takes multiple medications such as Muscle relaxer, Ibuprofen, Tramadol, Gabapentin and Tylenol for management of her back pain (L1 compression fracture), because of this she is interested in possible injection. Rating Clerk Required: No Allergies alendronate sodium [From FOSAMAX] Allergy (Severe, Verified 11/25/24 13:37) ANAPHYLAXIS lisinopril [LISINOPRIL] Allergy (Severe, Verified 11/25/24 13:37) ANAPHYLAXIS, cough clarithromycin [CLARITHROMYCIN] Allergy (Intermediate, Verified 11/25/24 13:37) CONFUSION, sores on tongue, dry mouth simvastatin [SIMVASTATIN] Allergy (Mild, Verified 11/25/24 13:37) DRY THROAT, achy, confusion HPI HPI New Prob - Bilateral Shoulder Pain - L>R: Details: 84-year-old woman I know well from prior hip and knee arthroplasty who comes in with ongoing bilateral shoulder pain left greater than right. She states that much of the time she does okay. She has pain at night but it is stable. She occasionally has sharp anterior left shoulder pain that comes and goes without reason. This occurs once once a month at at most. [facility] Medical History Pre-op chest exam Pre-op examination Meniere disease Transient ischemic attack (TIA) Osteoarthritis of shoulders, bilateral Rheumatoid arthritis Osteoarthritis of carpometacarpal (CMC) joint of right thumb Overweight (BMI 25.0-29.9) High cholesterol Hypertension Thrush, oral Nondisplaced fracture of fifth metatarsal bone, left foot, subsequent encounter for fracture with nonunion Seropositive rheumatoid arthritis Fracture of 5th metatarsal Fracture of fifth metatarsal bone of right foot Polymyalgia rheumatica Anxiety and depression Osteoarthritis Lumbar degenerative disc disease Osteoporosis Gout Restless leg syndrome Hypergammaglobulinemia GERD (gastroesophageal reflux disease) Seizure disorder Hypertension Hypercholesterolemia Asthma Peripheral neuropathy Rheumatoid arthritis Surgical History Corneal transplant status History of arthroplasty of right hip History of total abdominal hysterectomy History of corneal transplant H/O left knee surgery History of open reduction and internal fixation (ORIF) procedure History of cholecystectomy History of appendectomy Family History Father CVD (cardiovascular disease) Mother No problems noted. Social History (Updated 11/07/24 @ 11:40 by FREDIS Machuca) Household Members: Significant Other Household Members Other:: parter Housing: House Do you presently have visiting nurse or other home services: No Alcohol intake: current Alcohol intake frequency: holidays/special occasions only Alcohol type: wine Comment: patient uses call light appropriately Patient Tobacco Use Status: Never used Tobacco e-Cigarette/Vaping Use: Never Used Second Hand Smoke Exposure: No Advance Directives Date on File: 07/11/23 service: No Current occupational status: retired Cognitive needs: Yes (walker) Hearing needs: Yes Vision needs: Yes Physical Exam Extrem Other: On exam she has restricted external rotation to about 30 degrees and overhead combined abduction of 120 on the left and 130 on the right. External rotation causes pain more on the left than the right. There is scapular recruitment with overhead abduction bilaterally. Office Procedures Joint Inj/Aspir; Non-Pain Clin Joint Injection/Drain Details: Injected 1 mL of Decadron and 3 mL 1% lidocaine and 3 mL of 0.25% Marcaine. Site was prepped using aseptic technique. Patient tolerated the procedure well. Shoulders, Hips, Knees, Shoulder Injection Large joint : Bilateral Shoulders Coding Procedure code (CPT) selection complete Results Reviewed Results Reviewed: I personally reviewed relevant radiographs. Severe glenohumeral arthritis bilaterally Assessment & Plan Assessment & Plan (1) Osteoarthritis of shoulders, bilateral: Code(s): M19.011 - Primary osteoarthritis, right shoulder; M19.012 - Primary osteoarthritis, left shoulder Category: Medical Plan: Is an 84-year-old rheumatoid with bilateral shoulder OA. I think surgery would be too aggressive given her age and her level of dysfunction. I discussed this with her. She agrees. I injected both shoulders. If her pain worsens she can return to see me. Orders: Orders XR shoulder RT min 2V Today M25.519 - Pain in unspecified shoulder XR shoulder LT min 2V Today M25.519 - Pain in unspecified shoulder Coding Level of Care Code Est Pt Level 3 (99426) Diagnoses Osteoarthritis of shoulders, bilateral M19.011; M19.012 CPT Codes Shoulders, Hips, Knees, - Shoulder Injection Large joint : Bilateral Shoulders ([id number])
== END 2024-11-25 14:03 | disposition home or self-care (01) ==
PROVIDERS: PCP Internal Medicine; Visit Provider Orthopaedic Surgery
DX: M19.011 Primary osteoarthritis, right shoulder (principal); M19.012 Primary osteoarthritis, left shoulder
CPT/HCPCS: 20610; 99213

== ENCOUNTER 2024-12-05 14:59 | Outpatient (AMB) | payer MEDICARE, OTHER, SELFPAY ==
--- NOTE | 2024-12-05 15:01 | A.OFFVIS_ITS ---
Vital Signs 12/05/24 15:06 Height 5 ft 6 in Weight 165 lb BMI 26.6 BP 137/71 Blood Pressure Location Rt brachial Position Sitting Pulse 79 Pulse Source Pulse Oximeter Intake Visit Reasons: FU pain discussion per DR Swann Intake Note: Pain today 07/16 Ruling Machine Feeder Required: No Accompanied by: Self / Same As Patient Allergies alendronate sodium [From FOSAMAX] Allergy (Severe, Verified 12/05/24 15:06) ANAPHYLAXIS lisinopril [LISINOPRIL] Allergy (Severe, Verified 12/05/24 15:06) ANAPHYLAXIS, cough clarithromycin [CLARITHROMYCIN] Allergy (Intermediate, Verified 12/05/24 15:06) CONFUSION, sores on tongue, dry mouth simvastatin [SIMVASTATIN] Allergy (Mild, Verified 12/05/24 15:06) DRY THROAT, achy, confusion HPI Comments Details: Ellie Falcon) is in my office today to request information about future injection. She is scheduled for bilateral diagnostic sacroiliac joint injection in January. She unfortunately has to wait, she reports severe pain. Dr. Vides is prescribing her tramadol. The patient is reporting some pain relief from tramadol. However she is concerned if she will continue to receive tramadol from Dr. Vides. I told her to speak with Dr. Vides and explained to him that you are waiting for the procedure with me and asked him to at least temporarily extent the tramadol medication. I also recommended her to give us a call on Tuesdays when we do injections. If there will be any cancellations we can bring her to the operating room to perform the procedure earlier. Prior: She reports severe pain in the lower lumbar spine. She reports pain exacerbates with flexing forward and lifting things from the ground. On physical examination attention was attracted to signs of sacroiliitis. In the past she received from me diagnostic sacroiliac joint injection with 60% pain improvement. Now she reports severe pain 08/15 today, I feel like I have to perform again diagnostic sacroiliac joint injection. This patient was diagnose recently with L1 compression fracture. There is widespread diffuse osteopenia on her x-rays well. Therefore injection of the steroids will not be a good idea, however we can try peripheral nerve stimulation sprint versus peripheral nerve sprint stimulation cure on X. In regarding of her or diagnostic medial branch block she reported significant pain relieve on the left side immediately after the injection however she reported pain aggravation on the right side due to injection immediately after injection.? However on bilateral sacroiliac joint diagnostic injection on 12/13/2022 she reported 50-60% pain improvement after the injection.? The pain of this patient is most likely multifactorial.? She has significant rheumatoid arthritis which effects her shoulder joints her lumbar spine as well as her sacroiliac joints.? I offered her to perform bilateral sacroiliac joint injection therapeutic this time.? I will schedule this procedure without sedation.? She has an appointment with Dr. Guidry for evaluation of her shoulder pain.? Because of her severe osteopenia I would not recommend steroid injections for this patient. [facility] Medical History Pre-op chest exam Pre-op examination Meniere disease Transient ischemic attack (TIA) Osteoarthritis of shoulders, bilateral Rheumatoid arthritis Osteoarthritis of carpometacarpal (CMC) joint of right thumb Overweight (BMI 25.0-29.9) High cholesterol Hypertension Thrush, oral Nondisplaced fracture of fifth metatarsal bone, left foot, subsequent encounter for fracture with nonunion Seropositive rheumatoid arthritis Fracture of 5th metatarsal Fracture of fifth metatarsal bone of right foot Polymyalgia rheumatica Anxiety and depression Osteoarthritis Lumbar degenerative disc disease Osteoporosis Gout Restless leg syndrome Hypergammaglobulinemia GERD (gastroesophageal reflux disease) Seizure disorder Hypertension Hypercholesterolemia Asthma Peripheral neuropathy Rheumatoid arthritis Surgical History Corneal transplant status History of arthroplasty of right hip History of total abdominal hysterectomy History of corneal transplant H/O left knee surgery History of open reduction and internal fixation (ORIF) procedure History of cholecystectomy History of appendectomy Family History Father CVD (cardiovascular disease) Mother No problems noted. Social History (Updated 11/07/24 @ 11:40 by FREDIS Machuca) Household Members: Significant Other Household Members Other:: parter Housing: House Do you presently have visiting nurse or other home services: No Alcohol intake: current Alcohol intake frequency: holidays/special occasions only Alcohol type: wine Comment: patient uses call light appropriately Patient Tobacco Use Status: Never used Tobacco e-Cigarette/Vaping Use: Never Used Second Hand Smoke Exposure: No Advance Directives Date on File: 07/11/23 service: No Current occupational status: retired Cognitive needs: Yes (walker) Hearing needs: Yes Vision needs: Yes Review of Systems Const All systems reviewed & are unremarkable except as noted in HPI and below Physical Exam Vital Signs: Last Vital Signs Pulse 79 12/05/24 15:06 BP 137/71 12/05/24 15:06 BMI result Body Mass Index 26.6 Const General: cooperative, comfortable and no acute distress Nutritional Appearance: well nourished Orientation/consciousness: patient oriented x3 Limitations: physical limitations Chest Chest palpation & inspection: normal inspection of the chest Resp Effort & Inspection: normal respiratory effort, able to speak in complete sentences, normal respiratory pattern, no audible wheezes, no cough, respiratory effort not decreased, no grunting and not labored Cardio Jugular venous distension: no JVD GI Inspection: Yes normal to inspection Back/Spine/Pelvis Other: Tenderness on palpation in paraspinal spinal region of lumbar spine.. Danial test is negative bilaterally however pelvis compression test, thigh thrust test, Gaenslen test positive bilaterally. Fourteen finger test is positive bilaterally more on the left. Neuro General: patient oriented x3 Assessment & Plan Assessment & Plan (1) Rheumatoid arthritis: Code(s): M06.9 - Rheumatoid arthritis, unspecified Category: Medical (2) Spondylosis of lumbar spine: Code(s): M47.816 - Spondylosis without myelopathy or radiculopathy, lumbar region Category: Medical (3) Sacroiliitis: Code(s): M46.1 - Sacroiliitis, not elsewhere classified Category: Medical (4) Pain of both sacroiliac joints: Code(s): M53.3 - Sacrococcygeal disorders, not elsewhere classified Category: Medical (5) Chronic pain syndrome: Code(s): G89.4 - Chronic pain syndrome Category: Medical (6) Sacroiliac joint dysfunction of both sides: Code(s): M53.3 - Sacrococcygeal disorders, not elsewhere classified Category: Medical (7) Compression fracture of L1 lumbar vertebra: Comment: indeterminate age Code(s): S32.010A - Wedge compression fracture of first lumbar vertebra, initial encounter for closed fracture Category: Medical Plan Medial branch block injection on 12/06/2022 resulted in profound pain relieve on the left side however significant aggravation of the pain on the right side. Sacroiliac joint injection resulted in 50-60% pain improvement on bilateral pain. I offered this patient to perform sacroiliac joint injection as well as peripheral nerve stimulations. She is waiting for repeat diagnostic sacroiliac joint injection. Dr. Jimenez prescribing her tramadol. I recommended her to give us called on Tuesdays and if any cancellations on the schedule to come and have injection earlier. In my opinion with her severe osteoporosis sacroiliac joint steroid injections would be contraindicated for this patient. Therefore we would need to consider peripheral nerve stimulation sprint versus peripheral nerve stimulation cure on X. This patient is suffering from seropositive rheumatoid arthritis and she is under care of Dr. Pinto receiving DMARDS. Coding Level of Care Code Est Pt Level 3 (04633) Diagnoses Rheumatoid arthritis M06.9 Spondylosis of lumbar spine M47.816 Sacroiliitis M46.1 Pain of both sacroiliac joints M53.3 Chronic pain syndrome G89.4 Sacroiliac joint dysfunction of both sides M53.3 Compression fracture of L1 lumbar vertebra S32.010A
[2024-12-05 15:06] VITALS: BP 137/71; PULSE 79; BMI 26.6
--- OUTSIDE RECORDS SUMMARY | 2024-12-05 18:52 | XMS_ITS | Encounter Summary ---
Author Organization [facility] Address [address] [place] [address] Care Team Providers Care Industrial Machine Assembler Name Role Phone Unavailable Primary Care Provider Unavailabl e Encounter Details Date Type Department Care Team (Late st Contact Info) Description 10/09/2024 Lab Requisition [facility] - Main Lab [address] [facility] [place] [address] Angelo Kasper MD [address] [place] [id number] Encounter for other general examination Social History Tobacco Use Types Packs/Day Years Used Date Smoking Tobacco: Never Assessed Sex and Gender Information Value Date Recorded Sex Assigned at Not on file Gender Identity Not on file Sexual Orientation Not on file documented as of this encounter Plan of Treatment Not on file documented as of this encounter Procedures Procedure Name Priority Date/Time Associated Diagnosis Comments BASIC METABOLIC PANEL Routine 10/09/2024 7:03 AM EST Encounter for other general examination documented in this encounter Results * (ABNORMAL) Basic metabolic panel (10/09/2024 7:03 AM EST) Sodium 132(L) 133 - 145 mmol/L LAB CHEMISTRY METHOD 10/09/2024 12:04 PM [facility] Potassium 4.1 3.5 - 5.5 mmol/L LAB CHEMISTRY METHOD 10/09/2024 12:04 PM [facility] Chloride 100 96 - 110 mmol/L LAB CHEMISTRY METHOD 10/09/2024 12:04 PM [facility] CO2 26 21 - 32 mmol/L LAB CHEMISTRY METHOD 10/09/2024 12:04 PM [facility] Anion Gap 6 3 - 11 LAB CHEMISTRY METHOD 10/09/2024 12:04 PM [facility] Glucose 62(L) 70 - 100 mg/dL LAB CHEMISTRY METHOD 10/09/2024 12:04 PM [facility] BUN 12 5 - 25 mg/dL LAB CHEMISTRY METHOD 10/09/2024 12:04 PM [facility] Creatinine 0.71 0.50 - 1.10 mg/dL LAB CHEMISTRY METHOD 10/09/2024 12:04 PM [facility] eGFR 83 >=60 mL/min/1. 73m2 LAB CHEMISTRY METHOD 10/09/2024 12:04 PM [facility] Comment:Calculation based on the??Chronic Kidney Disease Epidemiology Collaboration (CKD-EPI) equation refit??without adjustment for race. BUN/Creatinine Ratio 16.9 LAB CHEMISTRY METHOD 10/09/2024 12:04 PM [facility] Calcium 8.8 8.5 - 10.5 mg/dL LAB CHEMISTRY METHOD 10/09/2024 12:04 PM [facility] Blood Venous blood specimen / Unknown Venipuncture / Unknown 10/09/2024 7:03 AM EST 10/09/2024 10:19 AM EST Angelo Kasper MD LAB BLOOD ORDERABLES [facility] [address] [place] [address], documented in this encounter Visit Diagnoses Diagnosis Encounter for other general examination documented in this encounter
--- OUTSIDE RECORDS SUMMARY | 2024-12-05 18:52 | XMS_ITS | Encounter Summary ---
Author Organization [facility] Address [address] [place] [address] Care Team Providers Care Hvac Operations Technician Name Role Phone Unavailable Primary Care Provider Unavailabl e Encounter Details Date Type Department Care Team (Late st Contact Info) Description 10/06/2024 Lab Requisition [facility] - Main Lab [address] [place] [address] Angelo Kasper MD [address] [place] [id number] Encounter for other general examination Social History [...] Procedure Name Priority Date/Time Associated Diagnosis Comments THYROID STIMULATING HORMONE Routine 10/06/2024 5:48 AM EST Encounter for other general examination CORTISOL Routine 10/06/2024 5:48 AM EST Encounter for other general examination BASIC METABOLIC PANEL Routine 10/06/2024 5:48 AM EST Encounter for other general examination documented in this encounter Results * Cortisol (10/06/2024 5:48 AM EST) Cortisol 11.8 mcg/dL LAB CHEMISTRY METHOD 10/06/2024 9:33 AM EST [facility] Blood Venous blood specimen / Unknown Venipuncture / Unknown 10/06/2024 5:48 AM EST 10/06/2024 6:48 AM EST Narrative [facility] - 10/06/2024 9:33 AM EST CORTISOL REFERENCE RANGE ?? 8 AM SPEC: ??5.0-23.0 mcg/dL ?? 4 PM SPEC: ??3.0-16.0 mcg/dL ?? 8 PM SPEC: ??<5.0 mcg/dL Angelo Kasper MD LAB BLOOD ORDERABLES Performing Organization Address [facility]/ZIP Co de Phone Number [facility] [address] [place] [address], * Thyroid stimulating hormone (10/06/2024 5:48 AM EST) [facility] TSH 2.14 0.40 - 4.00 mcIU/mL LAB CHEMISTRY METHOD 10/06/2024 8:28 AM EST [facility] Blood Venous blood specimen / Unknown Venipuncture / Unknown 10/06/2024 5:48 AM EST 10/06/2024 6:48 AM EST Angelo Kasper MD LAB BLOOD ORDERABLES Performing Organization Address [facility]/ZIP Co de Phone Number [facility] [address] [place] [address], * (ABNORMAL) Basic metabolic panel (10/06/2024 5:48 AM EST) [facility] Sodium 130(L) 133 - 145 mmol/L LAB CHEMISTRY METHOD 10/06/2024 7:23 AM [facility] Potassium 4.0 3.5 - 5.5 mmol/L LAB CHEMISTRY METHOD 10/06/2024 7:23 AM EST [facility] Chloride 98 96 - 110 mmol/L LAB CHEMISTRY METHOD 10/06/2024 7:23 AM EST [facility] CO2 26 21 - 32 mmol/L LAB CHEMISTRY METHOD 10/06/2024 7:23 AM [facility] Anion Gap 6 3 - 11 LAB CHEMISTRY METHOD 10/06/2024 7:23 AM [facility] Glucose 76 70 - 100 mg/dL LAB CHEMISTRY METHOD 10/06/2024 7:23 AM EST [facility] BUN 9 5 - 25 mg/dL LAB CHEMISTRY METHOD 10/06/2024 7:23 AM [facility] Creatinine 0.62 0.50 - 1.10 mg/dL LAB CHEMISTRY METHOD 10/06/2024 7:23 AM [facility] eGFR 87 >=60 mL/min/1. 73m2 LAB CHEMISTRY METHOD 10/06/2024 7:23 AM EST [facility] Comment:Calculation based on the??Chronic Kidney Disease Epidemiology Collaboration (CKD-EPI) equation refit??without adjustment for race. BUN/Creatinine Ratio 14.5 LAB CHEMISTRY METHOD 10/06/2024 7:23 AM [facility] Calcium 8.4(L) 8.5 - 10.5 mg/dL LAB CHEMISTRY METHOD 10/06/2024 7:23 AM EST [facility] Blood Venous blood specimen / Unknown Venipuncture / Unknown 10/06/2024 5:48 AM EST 10/06/2024 6:48 AM EST Angelo Kasper MD LAB BLOOD ORDERABLES [facility] [address] [place] [address], documented in this encounter Visit Diagnoses Diagnosis Encounter for other general examination documented in this encounter
--- OUTSIDE RECORDS SUMMARY | 2024-12-05 18:52 | XMS_ITS | Encounter Summary ---
Author Organization [employer] Address [address] [place] [address] Care Team Providers Care Director Religious Education Name Role Phone Unavailable Primary Care Provider Unavailabl e Encounter Details Date Type Department Care Team (Late st Contact Info) Description 10/04/2024 Lab Requisition [facility] - Main Lab [address] [facility] [place] [address] Angelo Kasper MD [address] [place] [address] [phone] Encounter for other general examination Social History [...] Procedure Name Priority Date/Time Associated Diagnosis Comments URINALYSIS WITH REFLEX MICROSCOPIC AND CULTURE Routine 10/04/2024 4:00 AM EST Encounter for other general examination NAVARRO URINE CULTURE TUBE Routine 10/04/2024 4:00 AM EST Encounter for other general examination SODIUM, URINE, RANDOM Routine 10/04/2024 4:00 AM EST Encounter for other general examination OSMOLALITY, URINE Routine 10/04/2024 4:0 0 AM EST Encounter for other general examination URINALYSIS WITH REFLEX MICROSCOPIC AND CULTURE Routine 10/04/2024 4:00 AM EST Encounter for other general examination documented in this encounter Results * (ABNORMAL) Urinalysis with reflex microscopic and culture (10/04/2024 4:00 AM EST) Specific [place] Urine 1.018 1.003 - 1.030 LAB URINALYSIS - AUTOMATED METHOD 10/04/2024 9:55 AM [facility] LAB pH, Urine 7.0 5.0 - 8.0 pH LAB URINALYSIS - AUTOMATED METHOD 10/04/2024 9:55 AM [facility] Leukocytes, Urine Negative Negative LAB URINALYSIS - AUTOMATED METHOD 10/04/2024 9:55 AM [facility] Nitrite, Urine Negative Negative LAB URINALYSIS - AUTOMATED METHOD 10/04/2024 9:55 AM [facility] Protein, Urine Negative <=Trace mg/dL LAB URINALYSIS - AUTOMATED METHOD 10/04/2024 9:55 AM [facility] Glucose, Urine Negative Negative mg/dL LAB URINALYSIS - AUTOMATED METHOD 10/04/2024 9:55 AM [facility] Ketones, Urine Trace(A) Negative mg/dL LAB URINALYSIS - AUTOMATED METHOD 10/04/2024 9:55 AM [facility] Urobilinogen, Urine 1.0 0.2 - 1.0 mg/dL LAB URINALYSIS - AUTOMATED METHOD 10/04/2024 9:55 AM [facility] Bilirubin, Urine Negative Negative LAB URINALYSIS - AUTOMATED METHOD 10/04/2024 9:55 AM [facility] Blood, Urine Negative Negative LAB URINALYSIS - AUTOMATED METHOD 10/04/2024 9:55 AM [facility] Urine Urine specimen obtained by clean catch procedure / Unknown Non-blood Collection / Unknown 10/04/2024 4:00 AM EST 10/04/2024 9:37 AM EST Angelo Kasper MD LAB URINE ORDERABLES [facility] [address] [place] [address], * Navarro urine culture tube (10/04/2024 4:00 AM EST) Extra Tube Hold for add-ons. 10/04/2024 11:01 AM EST [facility] Comment:Auto resulted. Urine Urine specimen obtained by clean catch procedure / Unknown Non-blood Collection / Unknown 10/04/2024 4:00 AM EST 10/04/2024 9:37 AM EST Angelo Kasper MD LAB URINE ORDERABLES Performing Organization Address City/[facility]/ZIP Co de Phone Number [facility] [address] [place] [address], [place] [phone] * Sodium, urine, random (10/04/2024 4:00 AM EST) Sodium, Ur 87 mmol/L LAB CHEMISTRY METHOD 10/04/2024 10:46 AM EST [facility] Urine Urine specimen obtained by clean catch procedure / Unknown Non-blood Collection / Unknown 10/04/2024 4:00 AM EST 10/04/2024 9:37 AM EST Angelo Kasper MD LAB URINE ORDERABLES Performing Organization Address [facility]/ZIP Co de Phone Number [facility] [address] [place] [address], [place] [phone] * Osmolality, urine (10/04/2024 4:00 AM EST) Osmolality, Urine 475 300 - 1,300 mOsm/kg LAB CHEMISTRY METHOD 10/04/2024 10:45 AM EST [facility] Urine Urine specimen obtained by clean catch procedure / Unknown Non-blood Collection / Unknown 10/04/2024 4:00 AM EST 10/04/2024 9:37 AM EST Angelo Kasper MD LAB URINE ORDERABLES Performing Organization Address City/[facility]/ZIP Co de Phone Number [facility] [address] [place] [address], documented in this encounter Visit Diagnoses Diagnosis Encounter for other general examination documented in this encounter
--- OUTSIDE RECORDS SUMMARY | 2024-12-05 18:52 | XMS_ITS | Encounter Summary ---
Author Organization [employer] Address [address] [place] [address] Care Team Providers Care Congregational Care Pastor Name Role Phone Unavailable Primary Care Provider Unavailabl e Encounter Details Date Type Department Care Team (Late st Contact Info) Description 10/03/2024 Lab Requisition [facility] - Main Lab [address] [place] [address] Angelo Kasper MD [address] [place] [address] [phone] Encounter for other general examination Social History [...] Procedure Name Priority Date/Time Associated Diagnosis Comments CBC WITH AUTO DIFFERENTIAL Routine 10/03/2024 6:25 AM EST Encounter for other general examination CBC AND DIFFERENTIAL Routine 10/03/2024 6:25 AM EST Encounter for other general examination BASIC METABOLIC PANEL Routine 10/03/2024 6:25 AM EST Encounter for other general examination documented in this encounter Results * (ABNORMAL) CBC auto differential (10/03/2024 6:25 AM EST) WBC 4.2(L) 4.8 - 10.8 K/[facility] LAB HEMETOLOGY METHOD 10/03/2024 11:02 AM EST [facility] RBC 4.00 3.80 - 4.80 M/mcL LAB HEMETOLOGY METHOD 10/03/2024 11:02 AM EST [facility] Hemoglobin 12.0 11.5 - 16.0 g/dL LAB HEMETOLOGY METHOD 10/03/2024 11:02 AM [facility] Hematocrit 37.5 35.0 - 47.0 % LAB HEMETOLOGY METHOD 10/03/2024 11:02 AM [facility] MCV 94.5 79.0 - 98.0 FL LAB HEMETOLOGY METHOD 10/03/2024 11:02 AM [facility] MCH 30.2 27.0 - 32.0 pcg LAB HEMETOLOGY METHOD 10/03/2024 11:02 AM [facility] MCHC 32.0 32.0 - 37.0 g/dL LAB HEMETOLOGY METHOD 10/03/2024 11:02 AM [facility] RDW 13.8 11.0 - 15.0 % LAB HEMETOLOGY METHOD 10/03/2024 11:02 AM [facility] Platelets 224 130 - 400 K/mcL LAB HEMETOLOGY METHOD 10/03/2024 11:02 AM [facility] MPV 9.6 7.0 - 11.0 FL LAB HEMETOLOGY METHOD 10/03/2024 11:02 AM [facility] NRBC 0.0 <1.0 % LAB HEMETOLOGY METHOD 10/03/2024 11:02 AM [facility] NRBC Absolute 0.00 <0.10 K/mcL LAB HEMETOLOGY METHOD 10/03/2024 11:02 AM [facility] Neutrophils Relative 57.4 % LAB HEMETOLOGY METHOD 10/03/2024 11:02 AM [facility] Lymphocytes Relative 22.8 % LAB HEMETOLOGY METHOD 10/03/2024 11:02 AM [facility] Monocytes Relative 13.5 % LAB HEMETOLOGY METHOD 10/03/2024 11:02 AM [facility] Eosinophils Relative 3.1 % LAB HEMETOLOGY METHOD 10/03/2024 11:02 AM [facility] Basophils Relative 1.0 % LAB HEMETOLOGY METHOD 10/03/2024 11:02 AM [facility] Immature Granulocytes Relative 2.2 % LAB HEMETOLOGY METHOD 10/03/2024 11:02 AM [facility] Neutrophils Absolute 2.39 1.50 - 7.00 K/mcL LAB HEMETOLOGY METHOD 10/03/2024 11:02 AM [facility] Lymphocytes Absolute 0.95(L) 1.00 - 5.00 K/mcL LAB HEMETOLOGY METHOD 10/03/2024 11:02 AM [facility] Monocytes Absolute 0.56 0.20 - 1.00 K/mcL LAB HEMETOLOGY METHOD 10/03/2024 11:02 AM [facility] Eosinophils Absolute 0.13 0.00 - 0.50 K/mcL LAB HEMETOLOGY METHOD 10/03/2024 11:02 AM [facility] Basophils Absolute 0.04 0.00 - 0.20 K/mcL LAB HEMETOLOGY METHOD 10/03/2024 11:02 AM [facility] Immature Granulocytes Absolute 0.09(H) 0.00 - 0.03 K/mcL LAB HEMETOLOGY METHOD 10/03/2024 11:02 AM [facility] Blood Venous blood specimen / Unknown Venipuncture / Unknown 10/03/2024 6:25 AM EST 10/03/2024 9:48 AM EST Angelo Kasper MD LAB BLOOD ORDERABLES [facility] [address] [place] [address], * (ABNORMAL) Basic metabolic panel (10/03/2024 6:25 AM EST) Sodium 128(L) 133 - 145 mmol/L LAB CHEMISTRY METHOD 10/03/2024 11:21 AM [facility] Potassium 4.4 3.5 - 5.5 mmol/L LAB CHEMISTRY METHOD 10/03/2024 11:21 AM [facility] Chloride 94(L) 96 - 110 mmol/L LAB CHEMISTRY METHOD 10/03/2024 11:21 AM [facility] CO2 28 21 - 32 mmol/L LAB CHEMISTRY METHOD 10/03/2024 11:21 AM [facility] Anion Gap 6 3 - 11 LAB CHEMISTRY METHOD 10/03/2024 11:21 AM [facility] Glucose 66(L) 70 - 100 mg/dL LAB CHEMISTRY METHOD 10/03/2024 11:21 AM [facility] BUN 13 5 - 25 mg/dL LAB CHEMISTRY METHOD 10/03/2024 11:21 AM [facility] Creatinine 0.67 0.50 - 1.10 mg/dL LAB CHEMISTRY METHOD 10/03/2024 11:21 AM [facility] eGFR 85 >=60 mL/min/1. 73m2 LAB CHEMISTRY METHOD 10/03/2024 11:21 AM [facility] Comment:Calculation based on the??Chronic Kidney Disease Epidemiology Collaboration (CKD-EPI) equation refit??without adjustment for race. BUN/Creatinine Ratio 19.4 LAB CHEMISTRY METHOD 10/03/2024 11:21 AM [facility] Calcium 8.9 8.5 - 10.5 mg/dL LAB CHEMISTRY METHOD 10/03/2024 11:21 AM [facility] Blood Venous blood specimen / Unknown Venipuncture / Unknown 10/03/2024 6:25 AM EST 10/03/2024 9:48 AM EST Angelo Kasper MD LAB [facility]LOOD [facility]ABLES [facility] [address] [place] [address], documented in this encounter Visit Diagnoses Diagnosis Encounter for other general examination documented in this encounter
--- OUTSIDE RECORDS SUMMARY | 2024-12-05 18:52 | XMS_ITS | Encounter Summary ---
Author Organization [facility] Address [address] [place] [address] Care Team Providers Care Aerodynamics Professor Name Role Phone Unavailable Primary Care Provider Unavailabl e Encounter Details Date Type Department Care Team (Late st Contact Info) Description 10/04/2024 Lab Requisition [facility] - Main Lab [address] [place] [address] Angelo Kasper MD [address] [place] [id number] Encounter for other general examination Social History [...] Procedure Name Priority Date/Time Associated Diagnosis Comments OSMOLALITY Routine 10/04/2024 5:56 AM EST Encounter for other general examination documented in this encounter Results * (ABNORMAL) Osmolality (10/04/2024 5:56 AM EST) Osmolality Grisel 265(L) 280 - 300 mOsm/kg LAB CHEMISTRY METHOD 10/04/2024 10:45 AM EST [facility] Blood Venous blood specimen / Unknown Venipuncture / Unknown 10/04/2024 5:56 AM EST 10/04/2024 9:06 AM EST Angelo Kasper MD LAB BLOOD ORDERABLES [facility] [address] [place] [address], documented in this encounter Visit Diagnoses Diagnosis Encounter for other general examination documented in this encounter
--- OUTSIDE RECORDS SUMMARY | 2024-12-05 18:52 | XMS_ITS | Clinical Summary ---
Author Organization [address] Address [address] [place] [address] Phone Care Team Providers Care Industrial Machine System Technician Name Role Phone Unavailable Primary Care Provider Unavailabl e Encounters Date Type Department Care Team Description 10/11/2024 Lab Requisition [facility] [address] [place] [phone] Angelo Kasper MD Encounter for other general examination 10/09/2024 Lab Requisition [facility] [address] [place] [address] Angelo Kasper MD Encounter for other general examination 10/07/2024 Lab Requisition [facility] [address] [place] [address] Angelo Kasper MD Encounter for other general examination 10/06/2024 Lab Requisition [facility] [address] [place] [address] Angelo Kasper MD Encounter for other general examination 10/05/2024 Lab Requisition [facility] [address] [place] [address] Angelo Kasper MD Encounter for other general examination 10/04/2024 Lab Requisition [facility] [address] [place] [address] Angelo Kasper MD Encounter for other general examination 10/04/2024 Lab Requisition [facility] [address] [place] [address] Angelo Kasper MD Encounter for other general examination 10/03/2024 Lab Requisition [facility] Lab [address] [place] [phone] Angelo Kasper MD Encounter for other general examination 09/30/2024 Lab Requisition [facility] [address] [place] [phone] Angelo Kasper MD Encounter for other general examination 09/29/2024 Lab Requisition [facility] Lab [address] [place] [phone] Angelo Kasper MD Encounter for other general examination from Last 3 Months Social History Tobacco Use Types Packs/Day Years Used Date Smoking Tobacco: Never Assessed Sex and Gender Information Value Date Recorded Sex Assigned at Not on file Gender Identity Not on file Sexual Orientation Not on file Plan of Treatment Health Maintenance Due Date Last Done Comments DTaP,Tdap,and Td Vaccines (1 - Tdap) 1957 Zoster Vaccines (1 of 2) 1988 Pneumococcal Vaccine: 65+ Ye ars (1 of 1 - PCV) 2003 RSV Immunization Patients 60 + Years Old (1 - 1-dose 75+ series) 2013 COVID-19 Vaccine (2023-2 5 season) 2024 Influenza Vaccine (#1) 2024 HIB Vaccines Aged Out No longer eligi ble based on patient's age to complete this topic HPV Vaccines Aged Out No longer eligi ble based on patient's age to complete this topic Hepatitis A Vaccines Aged Out No long er eligible based on patient's age to complete this topic Hepatitis B Vaccines Aged Out No long er eligible based on patient's age to complete this topic IPV Vaccines Aged Out No longer eligi ble based on patient's age to complete this topic MMR Vaccines Aged Out No longer eligi ble based on patient's age to complete this topic Meningococcal ACWY Vaccine Aged Out N o longer eligible based on patient's age to complete this topic RSV Immunization Patients Un angelica 20 months Aged Out No longer eligible b ased on patient's age to complete this topic Varicella Vaccines Aged Out No longer eligible based on patient's age to complete this topic Procedures Procedure Name Priority Date/Time Associated Diagnosis Comments BASIC METABOLIC PANEL Routine 10/11/2024 7:25 AM EST Encounter for other general examination BASIC METABOLIC PANEL Routine 10/09/2024 7:03 AM EST Encounter for other general examination BASIC METABOLIC PANEL Routine 10/07/2024 7:28 AM EST Encounter for other general examination CORTISOL Routine 10/06/2024 5:48 AM EST Encounter for other general examination THYROID STIMULATING HORMONE Routine 10/06/2024 5:48 AM EST Encounter for other general examination BASIC METABOLIC PANEL Routine 10/06/2024 5:48 AM EST Encounter for other general examination BASIC METABOLIC PANEL Routine 10/05/2024 6:03 AM EST Encounter for other general examination OSMOLALITY Routine 10/04/2024 5:56 AM EST Encounter [...] EST Encounter for other general examination CBC WITH AUTO DIFFERENTIAL Routine 10/03/2024 6:25 AM EST Encounter for other general examination CBC AND DIFFERENTIAL Routine 10/03/2024 6:25 AM EST Encounter for other general examination BASIC METABOLIC PANEL Routine 10/03/2024 6:25 AM EST Encounter for other general examination COMPLETE BLOOD COUNT Routine 09/30/2024 7:07 AM EST Encounter for other general examination BASIC METABOLIC PANEL Routine 09/30/2024 7:07 AM EST Encounter for other general examination CBC WITH AUTO DIFFERENTIAL Routine 09/29/2024 7:35 AM EST Encounter for other general examination MAGNESIUM Routine 09/29/2024 7:35 AM EST Encounter for other general examination CBC AND DIFFERENTIAL Routine 09/29/2024 7:35 AM EST Encounter for other general examination COMPREHENSIVE METABOLIC PANEL Routine 09/29/2024 7:35 AM EST Encounter for other general examination from Last 3 Months Results * (ABNORMAL) Basic metabolic panel (10/11/2024 7:25 AM EST) Only the most recent of7 resultswithin the time period is included. Sodium 134 133 - 145 mmol/L LAB CHEMISTRY METHOD 10/11/2024 1:13 PM [facility] Potassium 4.0 3.5 - 5.5 mmol/L LAB CHEMISTRY METHOD 10/11/2024 1:13 PM [facility] Chloride 102 96 - 110 mmol/L LAB CHEMISTRY METHOD 10/11/2024 1:13 PM [facility] CO2 23 21 - 32 mmol/L LAB CHEMISTRY METHOD 10/11/2024 1:13 PM [facility] Anion Gap 9 3 - 11 LAB CHEMISTRY METHOD 10/11/2024 1:13 PM [facility] Glucose 80 70 - 100 mg/dL LAB CHEMISTRY METHOD 10/11/2024 1:13 PM [facility] BUN 25 5 - 25 mg/dL LAB CHEMISTRY METHOD 10/11/2024 1:13 PM [facility] Creatinine 0.99 0.50 - 1.10 mg/dL LAB CHEMISTRY METHOD 10/11/2024 1:13 PM EST [facility] eGFR 56(L) >=60 mL/min/1. 73m2 LAB CHEMISTRY METHOD 10/11/2024 1:13 PM EST [facility] LAB Comment:Calculation based on the??Chronic Kidney Disease Epidemiology Collaboration (CKD-EPI) equation refit??without adjustment for race. BUN/Creatinine Ratio 25.3 LAB CHEMISTRY METHOD 10/11/2024 1:13 PM [facility] Calcium 8.7 8.5 - 10.5 mg/dL LAB CHEMISTRY METHOD 10/11/2024 1:13 PM [facility] Blood Venous blood specimen / Unknown Venipuncture / Unknown 10/11/2024 7:25 AM EST 10/11/2024 11:51 AM EST Angelo Kasper MD LAB BLOOD ORDERABLES [facility] LAB [address] [place] [address], * Thyroid stimulating hormone (10/06/2024 5:48 AM EST) TSH 2.14 0.40 - 4.00 mcIU/mL LAB CHEMISTRY METHOD 10/06/2024 8:28 AM EST [facility] LAB Blood Venous blood specimen / Unknown Venipuncture / Unknown 10/06/2024 5:48 AM EST 10/06/2024 6:48 AM EST Angelo Kasper MD LAB BLOOD ORDERABLES [facility] [address] [place] [address], [place] [phone] * Cortisol (10/06/2024 5:48 AM EST) Cortisol [...] MD LAB BLOOD ORDERABLES Performing Organization Address [facility]/ZIP Co de Phone Number [facility] [address] [place] [address], [place] [phone] * (ABNORMAL) Osmolality (10/04/2024 5:56 AM EST) [facility] Osmolality Grisel 265(L) 280 - 300 mOsm/kg LAB CHEMISTRY METHOD 10/04/2024 10:45 AM EST [facility] Blood Venous blood specimen / Unknown Venipuncture / Unknown 10/04/2024 5:56 AM EST 10/04/2024 9:06 AM EST Angelo Kasper MD LAB BLOOD ORDERABLES Performing Organization Address [facility]/ZIP Co de Phone Number [facility] [address] [place] [address], [place] [phone] * (ABNORMAL) Urinalysis with reflex microscopic and culture (10/04/2024 4:00 AM EST) [facility] Specific [facility] Urine 1.018 1.003 - 1.030 LAB URINALYSIS - AUTOMATED METHOD 10/04/2024 9:55 AM EST [facility] pH, Urine 7.0 5.0 - 8.0 pH LAB URINALYSIS - AUTOMATED METHOD 10/04/2024 9:55 AM [facility] Leukocytes, Urine Negative Negative LAB URINALYSIS - AUTOMATED METHOD 10/04/2024 9:55 AM [facility] Nitrite, Urine Negative Negative LAB URINALYSIS - AUTOMATED METHOD 10/04/2024 9:55 AM [facility] Protein, Urine Negative <=Trace mg/dL LAB URINALYSIS - AUTOMATED METHOD 10/04/2024 9:55 AM [facility] Glucose, Urine Negative Negative mg/dL LAB URINALYSIS - AUTOMATED METHOD 10/04/2024 9:55 AM [facility] Ketones, Urine Trace(A) Negative mg/dL LAB URINALYSIS - AUTOMATED METHOD 10/04/2024 9:55 AM [facility] Urobilinogen, Urine 1.0 0.2 - 1.0 mg/dL LAB URINALYSIS - AUTOMATED METHOD 10/04/2024 9:55 AM [facility] Bilirubin, Urine Negative Negative LAB URINALYSIS - AUTOMATED METHOD 10/04/2024 9:55 AM [facility] Blood, Urine Negative Negative LAB URINALYSIS - AUTOMATED METHOD 10/04/2024 9:55 AM [facility] Urine Urine specimen obtained by clean catch procedure / Unknown Non-blood Collection / Unknown 10/04/2024 4:00 AM EST 10/04/2024 9:37 AM EST Angelo Kasper MD LAB URINE ORDERABLES [facility] [address] [place] [address], * Navarro urine culture tube (10/04/2024 4:00 AM EST) Extra Tube Hold for add-ons. 10/04/2024 11:01 AM [facility] Comment:Auto resulted. Urine Urine specimen obtained by clean catch procedure / Unknown Non-blood Collection / Unknown 10/04/2024 4:00 AM EST 10/04/2024 9:37 AM EST Angelo Kasper MD LAB URINE ORDERABLES Performing Organization Address [facility] Co de Phone Number [facility] [address] [place] [address], [place] [phone] * Sodium, urine, random (10/04/2024 4:00 AM EST) Sodium, Ur 87 mmol/L LAB CHEMISTRY METHOD 10/04/2024 10:46 AM EST [facility] Urine Urine specimen obtained by clean catch procedure / Unknown Non-blood Collection / Unknown 10/04/2024 4:00 AM EST 10/04/2024 9:37 AM EST Angelo Kasper MD LAB URINE ORDERABLES Performing Organization Address [facility] de Phone Number [facility] [address] [place] [address], [place] [phone] * Osmolality, urine (10/04/2024 4:00 AM EST) Osmolality, Urine 475 300 - 1,300 mOsm/kg LAB CHEMISTRY METHOD 10/04/2024 10:45 AM EST [facility] Urine Urine specimen obtained by clean catch procedure / Unknown Non-blood Collection / Unknown 10/04/2024 4:00 AM EST 10/04/2024 9:37 AM EST Angelo Kasper MD LAB URINE ORDERABLES Performing Organization Address [facility] Co de Phone Number [facility] [address] [place] [address], [place] [phone] * (ABNORMAL) CBC auto differential (10/03/2024 6:25 AM EST) Only the most recent of2 resultswithin the time period is included. [facility] WBC 4.2(L) 4.8 - 10.8 K/mcL LAB HEMETOLOGY METHOD 10/03/2024 11:02 AM [facility] RBC 4.00 3.80 - 4.80 M/mcL LAB HEMETOLOGY METHOD 10/03/2024 11:02 AM [facility] Hemoglobin 12.0 11.5 - 16.0 g/dL LAB HEMETOLOGY METHOD 10/03/2024 11:02 AM [facility] Hematocrit 37.5 35.0 - 47.0 % LAB HEMETOLOGY METHOD 10/03/2024 11:02 AM [facility] MCV 94.5 79.0 - 98.0 FL LAB HEMETOLOGY METHOD 10/03/2024 11:02 AM [facility] MCH 30.2 27.0 - 32.0 pcg LAB HEMETOLOGY METHOD 10/03/2024 11:02 AM [facility] MCHC 32.0 32.0 - 37.0 g/dL LAB HEMETOLOGY METHOD 10/03/2024 11:02 AM [facility] RDW 13.8 11.0 - 15.0 % LAB HEMETOLOGY METHOD 10/03/2024 11:02 AM [facility] Platelets 224 130 - 400 K/mcL LAB HEMETOLOGY METHOD 10/03/2024 11:02 AM [facility] MPV 9.6 7.0 - 11.0 FL LAB HEMETOLOGY METHOD 10/03/2024 11:02 AM [facility] NRBC 0.0 <1.0 % LAB HEMETOLOGY METHOD 10/03/2024 11:02 AM [facility] NRBC Absolute 0.00 <0.10 K/mcL LAB HEMETOLOGY METHOD 10/03/2024 11:02 AM [facility] Neutrophils Relative 57.4 % LAB HEMETOLOGY METHOD 10/03/2024 11:02 AM [facility] Lymphocytes Relative 22.8 % LAB HEMETOLOGY METHOD 10/03/2024 11:02 AM [facility] Monocytes Relative 13.5 % LAB HEMETOLOGY METHOD 10/03/2024 11:02 AM [facility] Eosinophils Relative 3.1 % LAB HEMETOLOGY METHOD 10/03/2024 11:02 AM [facility] Basophils Relative 1.0 % LAB HEMETOLOGY METHOD 10/03/2024 11:02 AM [facility] Immature Granulocytes Relative 2.2 % LAB HEMETOLOGY METHOD 10/03/2024 11:02 AM [facility] Neutrophils Absolute 2.39 1.50 - 7.00 K/mcL LAB HEMETOLOGY METHOD 10/03/2024 11:02 AM [facility] Lymphocytes Absolute 0.95(L) 1.00 - 5.00 K/mcL LAB HEMETOLOGY METHOD 10/03/2024 11:02 AM [facility] Monocytes Absolute 0.56 0.20 - 1.00 K/mcL LAB HEMETOLOGY METHOD 10/03/2024 11:02 AM [facility] Eosinophils Absolute 0.13 0.00 - 0.50 K/mcL LAB HEMETOLOGY METHOD 10/03/2024 11:02 AM [facility] Basophils Absolute 0.04 0.00 - 0.20 K/mcL LAB HEMETOLOGY METHOD 10/03/2024 11:02 AM [facility] Immature Granulocytes Absolute 0.09(H) 0.00 - 0.03 K/mcL LAB HEMETOLOGY METHOD 10/03/2024 11:02 AM [facility] Blood Venous blood specimen / Unknown Venipuncture / Unknown 10/03/2024 6:25 AM EST 10/03/2024 9:48 AM EST Angelo Kasper MD LAB BLOOD ORDERABLES [facility] [address] [place] [address], * (ABNORMAL) Complete blood count (09/30/2024 7:07 AM EST) WBC 11.5(H) 4.8 - 10.8 K/mcL LAB HEMETOLOGY METHOD 09/30/2024 1:38 PM [facility] RBC 4.10 3.80 - 4.80 M/mcL LAB HEMETOLOGY METHOD 09/30/2024 1:38 PM [facility] Hemoglobin 12.4 11.5 - 16.0 g/dL LAB HEMETOLOGY METHOD 09/30/2024 1:38 PM [facility] Hematocrit 38.8 35.0 - 47.0 % LAB HEMETOLOGY METHOD 09/30/2024 1:38 PM [facility] MCV 95.1 79.0 - 98.0 FL LAB HEMETOLOGY METHOD 09/30/2024 1:38 PM [facility] MCH 30.4 27.0 - 32.0 pcg LAB HEMETOLOGY METHOD 09/30/2024 1:38 PM [facility] MCHC 32.0 32.0 - 37.0 g/dL LAB HEMETOLOGY METHOD 09/30/2024 1:38 PM [facility] RDW 14.1 11.0 - 15.0 % LAB HEMETOLOGY METHOD 09/30/2024 1:38 PM [facility] Platelets 279 130 - 400 K/mcL LAB HEMETOLOGY METHOD 09/30/2024 1:38 PM [facility] MPV 9.4 7.0 - 11.0 FL LAB HEMETOLOGY METHOD 09/30/2024 1:38 PM EST [facility] NRBC 0.0 <1.0 % LAB HEMETOLOGY METHOD 09/30/2024 1:38 PM EST [facility] NRBC Absolute 0.00 <0.10 K/mcL LAB HEMETOLOGY METHOD 09/30/2024 1:38 PM EST [facility] Blood Venous blood specimen / Unknown Venipuncture / Unknown 09/30/2024 7:07 AM EST 09/30/2024 1:00 PM EST Angelo Kasper MD LAB BLOOD ORDERABLES Performing Organization Address City/[facility]/ZIP Co de Phone Number [facility] [address] [place] [address], * Magnesium (09/29/2024 7:35 AM EST) Pathologist [facility] Magnesium 2.1 1.9 - 2.6 mg/dL LAB CHEMISTRY METHOD 09/29/2024 11:09 AM EST [facility] Blood Venous blood specimen / Unknown Venipuncture / Unknown 09/29/2024 7:35 AM EST 09/29/2024 10:30 AM EST Angelo Kasper MD LAB BLOOD ORDERABLES Performing Organization Address City/[facility]/ZIP Co de Phone Number [facility] [address] [place] [address], [place] [phone] * (ABNORMAL) Comprehensive metabolic panel (09/29/2024 7:35 AM EST) Sodium 138 133 - 145 mmol/L LAB CHEMISTRY METHOD 09/29/2024 11:09 AM [facility] Potassium 4.8 3.5 - 5.5 mmol/L LAB CHEMISTRY METHOD 09/29/2024 11:09 AM EST [facility] Chloride 107 96 - 110 mmol/L LAB CHEMISTRY METHOD 09/29/2024 11:09 AM [facility] CO2 24 21 - 32 mmol/L LAB CHEMISTRY METHOD 09/29/2024 11:09 AM [facility] Anion Gap 7 3 - 11 LAB CHEMISTRY METHOD 09/29/2024 11:09 AM [facility] Glucose 75 70 - 100 mg/dL LAB CHEMISTRY METHOD 09/29/2024 11:09 AM [facility] BUN 16 5 - 25 mg/dL LAB CHEMISTRY METHOD 09/29/2024 11:09 AM [facility] Creatinine 0.79 0.50 - 1.10 mg/dL LAB CHEMISTRY METHOD 09/29/2024 11:09 AM [facility] eGFR 73 >=60 mL/min/1. 73m2 LAB CHEMISTRY METHOD 09/29/2024 11:09 AM [facility] Comment:Calculation based on the??Chronic Kidney Disease Epidemiology Collaboration (CKD-EPI) equation refit??without adjustment for race. BUN/Creatinine Ratio 20.3 LAB CHEMISTRY METHOD 09/29/2024 11:09 AM [facility] Calcium 9.3 8.5 - 10.5 mg/dL LAB CHEMISTRY METHOD 09/29/2024 11:09 AM [facility] AST (SGOT) 29 10 - 42 unit/L LAB CHEMISTRY METHOD 09/29/2024 11:09 AM [facility] ALT (SGPT) 33 10 - 60 unit/L LAB CHEMISTRY METHOD 09/29/2024 11:09 AM [facility] Alkaline Phosphatase 134(H) 42 - 121 unit/L LAB CHEMISTRY METHOD 09/29/2024 11:09 AM [facility] Total Protein 6.8 6.0 - 8.0 g/dL LAB CHEMISTRY METHOD 09/29/2024 11:09 AM [facility] Albumin 3.5 3.2 - 5.0 g/dL LAB CHEMISTRY METHOD 09/29/2024 11:09 AM EST [facility] Total Bilirubin 0.5 0.0 - 1.4 mg/dL LAB CHEMISTRY METHOD 09/29/2024 11:09 AM EST [facility] Blood Venous blood specimen / Unknown Venipuncture / Unknown 09/29/2024 7:35 AM EST 09/29/2024 10:30 AM EST Angelo Kasper MD LAB BLOOD ORDERABLES [facility] [address] [place] [address], from Last 3 Months
--- OUTSIDE RECORDS SUMMARY | 2024-12-05 18:52 | XMS_ITS | Encounter Summary ---
Author Organization [employer] [facility] Address [address] [place] [address] Care Team Providers Care Credit Relationship Manager Name Role Phone Unavailable Primary Care Provider Unavailabl e Encounter Details Date Type Department Care Team (Late st Contact Info) Description 09/29/2024 Lab Requisition [facility] Lab [address] [place] [address] Angelo Kasper MD [address] [place] [id number] Encounter for other general examination Social History [...] Diagnosis Comments CBC WITH AUTO DIFFERENTIAL Routine 09/29/2024 7:35 AM EST Encounter for other general examination CBC AND DIFFERENTIAL Routine 09/29/2024 7:35 AM EST Encounter for other general examination MAGNESIUM Routine 09/29/2024 7:35 AM EST Encounter for other general examination COMPREHENSIVE METABOLIC PANEL Routine 09/29/2024 7:35 AM EST Encounter for other general examination documented in this encounter Results * (ABNORMAL) CBC auto differential (09/29/2024 7:35 AM EST) WBC 11.5(H) 4.8 - 10.8 K/[facility] LAB HEMETOLOGY METHOD 09/29/2024 11:[address] [facility] RBC 4.10 3.80 - 4.80 M/[facility] LAB HEMETOLOGY METHOD 09/29/2024 11:08 AM [facility] Hemoglobin 12.5 11.5 - 16.0 g/dL LAB HEMETOLOGY METHOD 09/29/2024 11:08 AM [facility] LAB Hematocrit 39.9 35.0 - 47.0 % LAB HEMETOLOGY METHOD 09/29/2024 11:08 AM [facility] LAB MCV 96.8 79.0 - 98.0 FL LAB HEMETOLOGY METHOD 09/29/2024 11:08 AM [facility] LAB MCH 30.3 27.0 - 32.0 pcg LAB HEMETOLOGY METHOD 09/29/2024 11:08 AM [facility] LAB MCHC 31.3(L) 32.0 - 37.0 g/dL LAB HEMETOLOGY METHOD 09/29/2024 11:08 AM [facility] LAB RDW 14.0 11.0 - 15.0 % LAB HEMETOLOGY METHOD 09/29/2024 11:08 AM [facility] LAB Platelets 293 130 - 400 K/[facility] LAB HEMETOLOGY METHOD 09/29/2024 11:08 AM [facility] LAB MPV 9.5 7.0 - 11.0 FL LAB HEMETOLOGY METHOD 09/29/2024 11:08 AM [facility] LAB NRBC 0.0 <1.0 % LAB HEMETOLOGY METHOD 09/29/2024 11:08 AM [facility] NRBC Absolute 0.00 <0.10 K/[facility] LAB HEMETOLOGY METHOD 09/29/2024 11:08 AM [facility] Neutrophils Relative 54.5 % LAB HEMETOLOGY METHOD 09/29/2024 11:08 AM [facility] Lymphocytes Relative 34.1 % LAB HEMETOLOGY METHOD 09/29/2024 11:08 AM [facility] Monocytes Relative 5.0 % LAB HEMETOLOGY METHOD 09/29/2024 11:08 AM [facility] Eosinophils Relative 4.3 % LAB HEMETOLOGY METHOD 09/29/2024 11:08 AM [facility] Basophils Relative 1.0 % LAB HEMETOLOGY METHOD 09/29/2024 11:08 AM [facility] LAB Immature Granulocytes Relative 1.1 % LAB HEMETOLOGY METHOD 09/29/2024 11:08 AM [facility] Neutrophils Absolute 6.25 1.50 - 7.00 K/mcL LAB HEMETOLOGY METHOD 09/29/2024 11:08 AM [facility] Lymphocytes Absolute 3.93 1.00 - 5.00 K/mcL LAB HEMETOLOGY METHOD 09/29/2024 11:08 AM [facility] Monocytes Absolute 0.58 0.20 - 1.00 K/mcL LAB HEMETOLOGY METHOD 09/29/2024 11:08 AM [facility] Eosinophils Absolute 0.50 0.00 - 0.50 K/mcL LAB HEMETOLOGY METHOD 09/29/2024 11:08 AM [facility] Basophils Absolute 0.12 0.00 - 0.20 K/mcL LAB HEMETOLOGY METHOD 09/29/2024 11:08 AM [facility] LAB Immature Granulocytes Absolute 0.13(H) 0.00 - 0.03 K/mcL LAB HEMETOLOGY METHOD 09/29/2024 11:08 AM [facility] Blood Venous blood specimen / Unknown Venipuncture / Unknown 09/29/2024 7:35 AM EST 09/29/2024 10:30 AM EST Angelo Kasper MD LAB BLOOD ORDERABLES [facility] [address] [place] [address], * Magnesium (09/29/2024 7:35 AM EST) Magnesium 2.1 1.9 - 2.6 mg/dL LAB CHEMISTRY METHOD 09/29/2024 11:09 AM [facility] Blood Venous blood specimen / Unknown Venipuncture / Unknown 09/29/2024 7:35 AM EST 09/29/2024 10:30 AM EST Angelo Kasper MD LAB BLOOD ORDERABLES [facility] [address] [place] [address], * (ABNORMAL) Comprehensive metabolic panel (09/29/2024 7:35 AM EST) Sodium 138 133 - 145 mmol/L LAB CHEMISTRY METHOD 09/29/2024 11:09 AM [facility] Potassium 4.8 3.5 - 5.5 mmol/L LAB CHEMISTRY METHOD 09/29/2024 11:09 AM [facility] Chloride 107 96 - 110 mmol/L LAB CHEMISTRY METHOD 09/29/2024 11:09 AM [facility] CO2 24 21 - 32 mmol/L LAB CHEMISTRY METHOD 09/29/2024 11:09 AM [facility] Anion Gap 7 3 - 11 LAB CHEMISTRY METHOD 09/29/2024 11:09 AM [facility] Glucose 75 70 - 100 mg/dL LAB CHEMISTRY METHOD 09/29/2024 11:09 AM [facility] BUN 16 5 - 25 mg/dL LAB CHEMISTRY METHOD 09/29/2024 11:09 AM [facility] Creatinine 0.79 0.50 - 1.10 mg/dL LAB CHEMISTRY METHOD 09/29/2024 11:09 AM [facility] LAB eGFR 73 >=60 mL/min/1. 73m2 LAB CHEMISTRY METHOD 09/29/2024 11:09 AM [facility] LAB Comment:Calculation based on the??Chronic Kidney Disease Epidemiology Collaboration (CKD-EPI) equation refit??without adjustment for race. BUN/Creatinine Ratio 20.3 LAB CHEMISTRY METHOD 09/29/2024 11:09 AM [facility] Calcium 9.3 8.5 - 10.5 mg/dL LAB CHEMISTRY METHOD 09/29/2024 11:09 AM [facility] AST (SGOT) 29 10 - 42 unit/L LAB CHEMISTRY METHOD 09/29/2024 11:09 AM [facility] ALT (SGPT) 33 10 - 60 unit/L LAB CHEMISTRY METHOD 09/29/2024 11:09 AM [facility] Alkaline Phosphatase 134(H) 42 - 121 unit/L LAB CHEMISTRY METHOD 09/29/2024 11:09 AM [facility] Total Protein 6.8 6.0 - 8.0 g/dL LAB CHEMISTRY METHOD 09/29/2024 11:09 AM [facility] Albumin 3.5 3.2 - 5.0 g/dL LAB CHEMISTRY METHOD 09/29/2024 11:09 AM [facility] Total Bilirubin 0.5 0.0 - 1.4 mg/dL LAB CHEMISTRY METHOD 09/29/2024 11:09 AM [facility] Blood Venous blood specimen / Unknown Venipuncture / Unknown 09/29/2024 7:35 AM EST 09/29/2024 10:30 AM EST Angelo Kasper MD LAB BLOOD ORDERABLES [facility] [address] [place] [address], documented in this encounter Visit Diagnoses Diagnosis Encounter for other general examination documented in this encounter
--- OUTSIDE RECORDS SUMMARY | 2024-12-05 18:52 | XMS_ITS | Encounter Summary ---
Author Organization [facility] Address [address] [place] [address] Care Team Providers Care Sex Worker Or Escort Name Role Phone Unavailable Primary Care Provider Unavailabl e Encounter Details Date Type Department Care Team (Late st Contact Info) Description 09/30/2024 Lab Requisition [facility] - Main Lab [address] [place] [address] Angelo Kasper MD [address] [place] [phone] Encounter for other general examination Social History [...] Procedure Name Priority Date/Time Associated Diagnosis Comments COMPLETE BLOOD COUNT Routine 09/30/2024 7:07 AM EST Encounter for other general examination BASIC METABOLIC PANEL Routine 09/30/2024 7:07 AM EST Encounter for other general examination documented in this encounter Results * (ABNORMAL) Complete blood count (09/30/2024 7:07 AM EST) WBC 11.5(H) 4.8 - 10.8 K/mcL LAB HEMETOLOGY METHOD 09/30/2024 1:38 PM EST [facility] LAB RBC 4.10 3.80 - 4.80 M/[facility] LAB HEMETOLOGY METHOD 09/30/2024 1:38 PM EST [facility] LAB Hemoglobin 12.4 11.5 - 16.0 g/dL LAB HEMETOLOGY METHOD 09/30/2024 1:38 PM EST [facility] LAB Hematocrit 38.8 35.0 - 47.0 % LAB HEMETOLOGY METHOD 09/30/2024 1:38 PM EST [facility] LAB MCV 95.1 79.0 - 98.0 FL LAB HEMETOLOGY METHOD 09/30/2024 1:[address] [facility] LAB MCH 30.4 27.0 - 32.0 pcg LAB HEMETOLOGY METHOD 09/30/2024 1:38 PM EST [facility] LAB MCHC 32.0 32.0 - 37.0 g/dL LAB HEMETOLOGY METHOD 09/30/2024 1:[address] [facility] LAB RDW 14.1 11.0 - 15.0 % LAB HEMETOLOGY METHOD 09/30/2024 1:[address] [facility] LAB Platelets 279 130 - 400 K/mcL LAB HEMETOLOGY METHOD 09/30/2024 1:38 PM EST [facility] LAB MPV 9.4 7.0 - 11.0 FL LAB HEMETOLOGY METHOD 09/30/2024 1:38 PM EST [facility] LAB NRBC 0.0 <1.0 % LAB HEMETOLOGY METHOD 09/30/2024 1:[address] [facility] LAB NRBC Absolute 0.00 <0.10 K/mcL LAB HEMETOLOGY METHOD 09/30/2024 1:[address] [facility] LAB Blood Venous blood specimen / Unknown Venipuncture / Unknown 09/30/2024 7:07 AM EST 09/30/2024 1:00 PM EST Angelo Kasper MD LAB BLOOD ORDERABLES [facility] LAB [address] [place] [address], * (ABNORMAL) Basic metabolic panel (09/30/2024 7:07 AM EST) Sodium 135 133 - 145 mmol/L LAB CHEMISTRY METHOD 09/30/2024 4:[address] [facility] Potassium 4.6 3.5 - 5.5 mmol/L LAB CHEMISTRY METHOD 09/30/2024 4:[address] [facility] Chloride 103 96 - 110 mmol/L LAB CHEMISTRY METHOD 09/30/2024 4:[address] [facility] CO2 25 21 - 32 mmol/L LAB CHEMISTRY METHOD 09/30/2024 4:[address] [facility] Anion Gap 7 3 - 11 LAB CHEMISTRY METHOD 09/30/2024 4:[address] [facility] Glucose 60(L) 70 - 100 mg/dL LAB CHEMISTRY METHOD 09/30/2024 4:[address] [facility] BUN 20 5 - 25 mg/dL LAB CHEMISTRY METHOD 09/30/2024 4:[address] [facility] Creatinine 0.82 0.50 - 1.10 mg/dL LAB CHEMISTRY METHOD 09/30/2024 4:[address] [facility] LAB eGFR 70 >=60 mL/min/1. 73m2 LAB CHEMISTRY METHOD 09/30/2024 4:[address] [facility] LAB Comment:Calculation based on the??Chronic Kidney Disease Epidemiology Collaboration (CKD-EPI) equation refit??without adjustment for race. BUN/Creatinine Ratio 24.4 LAB CHEMISTRY METHOD 09/30/2024 4:[address] [facility] Calcium 9.8 8.5 - 10.5 mg/dL LAB CHEMISTRY METHOD 09/30/2024 4:[address] [facility] Blood Venous blood specimen / Unknown Venipuncture / Unknown 09/30/2024 7:07 AM EST 09/30/2024 1:00 PM EST Angelo Kasper MD LAB BLOOD ORDERABLES [facility]) [facility] LAB [address] [place] [address], documented in this encounter Visit Diagnoses Diagnosis Encounter for other general examination documented in this encounter
--- OUTSIDE RECORDS SUMMARY | 2024-12-05 18:52 | XMS_ITS | Clinical Summary ---
Author Organization [facility] Address [address] [place] [address] Care Team Providers Care Inspector Fuel Hose Name Role Phone Unavailable Primary Care Provider Unavailabl e Social History Tobacco Use Types Packs/Day Years Used Date Smoking Tobacco: Never Assessed Comments Unknown Sex and Gender Information Value Date Recorded Sex Assigned at Not on file Legal Sex Female 4:58 AM EDT Gender Identity Not on file Sexual Orientation Not on file Plan of Treatment Health Maintenance Due Date Last Done Comments DTaP/Tdap/Td (1 - Tdap) 1956 Pneumococcal 50+ years (1 of 1 - PCV) 1988 Zoster (Shingrix) (1 of 2) 1988 Bone Density 2003 RSV (1 - 1-dose 75+ series) 2013 COVID-19 Vaccine (2023-2 5 season) 2024 Influenza (#1) 2024 HPV Vaccine Aged Out No longer eligi ble based on patient's age to complete this topic Hep A Aged Out No longer eligi ble based on patient's age to complete this topic Hep B Aged Out No longer eligi ble based on patient's age to complete this topic Hib Aged Out No longer eligi ble based on patient's age to complete this topic Mammogram/Breast Imaging Discontinued Meningococcal ACWY Aged Out No longer eligible based on patient's age to complete this topic Pap Smear Discontinued Zoster (Zostavax) Discontinued
--- OUTSIDE RECORDS SUMMARY | 2024-12-05 18:52 | XMS_ITS | Encounter Summary ---
Author Organization [facility] Address [address] [place] [address] Care Team Providers Care Human Performance Technologist Name Role Phone Unavailable Primary Care Provider Unavailabl e Encounter Details Date Type Department Care Team (Late st Contact Info) Description 10/11/2024 Lab Requisition [facility] Lab [address] [facility] [place] [address] Angelo Kasper MD [address] [place] [address] Encounter for other general examination Social History [...] encounter Results * (ABNORMAL) Basic metabolic panel (10/11/2024 7:25 AM EST) Sodium 134 133 - 145 mmol/L LAB CHEMISTRY METHOD 10/11/2024 1:13 PM [facility] LAB Potassium 4.0 3.5 - 5.5 mmol/L LAB CHEMISTRY METHOD 10/11/2024 1:13 PM [facility] LAB Chloride 102 96 - 110 mmol/L LAB CHEMISTRY METHOD 10/11/2024 1:13 PM [facility] LAB CO2 23 21 - 32 mmol/L LAB CHEMISTRY METHOD 10/11/2024 1:13 PM [facility] LAB Anion Gap 9 3 - 11 LAB CHEMISTRY METHOD 10/11/2024 1:13 PM EST [facility] LAB Glucose 80 70 - 100 mg/dL LAB CHEMISTRY METHOD 10/11/2024 1:13 PM [facility] LAB BUN 25 5 - 25 mg/dL LAB CHEMISTRY METHOD 10/11/2024 1:13 PM [facility] LAB Creatinine 0.99 0.50 - 1.10 mg/dL LAB CHEMISTRY METHOD 10/11/2024 1:13 PM [facility] LAB eGFR 56(L) >=60 mL/min/1. 73m2 LAB CHEMISTRY METHOD 10/11/2024 1:13 PM [facility] LAB Comment:Calculation based on the??Chronic Kidney Disease Epidemiology Collaboration (CKD-EPI) equation refit??without adjustment for race. BUN/Creatinine Ratio 25.3 LAB CHEMISTRY METHOD 10/11/2024 1:13 PM [facility] LAB Calcium 8.7 8.5 - 10.5 mg/dL LAB CHEMISTRY METHOD 10/11/2024 1:13 PM [facility] LAB Blood Venous blood specimen / Unknown Venipuncture / Unknown 10/11/2024 7:25 AM EST 10/11/2024 11:51 AM EST Angelo Kasper MD LAB BLOOD ORDERABLES [facility] LAB [address] [place] [address], documented in this encounter Visit Diagnoses Diagnosis Encounter for other general examination documented in this encounter
--- OUTSIDE RECORDS SUMMARY | 2024-12-05 18:52 | XMS_ITS | Encounter Summary ---
Author Organization [facility] Address [address] [place] [address] Care Team Providers Care Tire Curer Name Role Phone Unavailable Primary Care Provider Unavailabl e Encounter Details Date Type Department Care Team (Late st Contact Info) Description 10/07/2024 Lab Requisition [facility] - Main Lab [address] [facility] [place] [address] Angelo Kasper MD [address] [place] [phone] Encounter for other general examination Social History [...] Associated Diagnosis Comments BASIC METABOLIC PANEL Routine 10/07/2024 7:28 AM EST Encounter for other general examination documented in this encounter Results * (ABNORMAL) Basic metabolic panel (10/07/2024 7:28 AM EST) Sodium 130(L) 133 - 145 mmol/L LAB CHEMISTRY METHOD 10/07/2024 2:59 PM EST [facility] LAB Potassium 4.2 3.5 - 5.5 mmol/L LAB CHEMISTRY METHOD 10/07/2024 2:59 PM EST [facility] LAB Chloride 98 96 - 110 mmol/L LAB CHEMISTRY METHOD 10/07/2024 2:59 PM EST [facility] LAB CO2 22 21 - 32 mmol/L LAB CHEMISTRY METHOD 10/07/2024 2:59 PM EST [facility] LAB Anion Gap 10 3 - 11 LAB CHEMISTRY METHOD 10/07/2024 2:59 PM EST [facility] LAB Glucose 63(L) 70 - 100 mg/dL LAB CHEMISTRY METHOD 10/07/2024 2:[address] [facility] BUN 9 5 - 25 mg/dL LAB CHEMISTRY METHOD 10/07/2024 2:[address] [facility] Creatinine 0.55 0.50 - 1.10 mg/dL LAB CHEMISTRY METHOD 10/07/2024 2:[address] [facility] LAB eGFR 89 >=60 mL/min/1. 73m2 LAB CHEMISTRY METHOD 10/07/2024 2:[address] [facility] Comment:Calculation based on the??Chronic Kidney Disease Epidemiology Collaboration (CKD-EPI) equation refit??without adjustment for race. BUN/Creatinine Ratio 16.4 LAB CHEMISTRY METHOD 10/07/2024 2:[address] [facility] Calcium 8.3(L) 8.5 - 10.5 mg/dL LAB CHEMISTRY METHOD 10/07/2024 2:[address] [facility] Blood Venous blood specimen / Unknown 10/07/2024 7:28 AM EST 10/07/2024 12:05 PM EST Angelo Kasper MD LAB BLOOD ORDERABLES [facility] LAB [address] [place] [address], documented in this encounter Visit Diagnoses Diagnosis Encounter for other general examination documented in this encounter
--- OUTSIDE RECORDS SUMMARY | 2024-12-05 18:52 | XMS_ITS | Encounter Summary ---
Author Organization [facility] Address [address] [place] [address] Care Team Providers Care Vest Presser Name Role Phone Unavailable Primary Care Provider Unavailabl e Encounter Details Date Type Department Care Team (Late st Contact Info) Description 10/05/2024 Lab Requisition [facility] - Main Lab [address] [facility] [place] [address] Angelo Kasper MD [address] [place] [phone] Encounter for other general examination Social History [...] Associated Diagnosis Comments BASIC METABOLIC PANEL Routine 10/05/2024 6:03 AM EST Encounter for other general examination documented in this encounter Results * (ABNORMAL) Basic metabolic panel (10/05/2024 6:03 AM EST) Sodium 126(L) 133 - 145 mmol/L LAB CHEMISTRY METHOD 10/05/2024 11:02 AM EST [facility] LAB Potassium 4.1 3.5 - 5.5 mmol/L LAB CHEMISTRY METHOD 10/05/2024 11:02 AM EST [facility] LAB Chloride 93(L) 96 - 110 mmol/L LAB CHEMISTRY METHOD 10/05/2024 11:02 AM [facility] LAB CO2 27 21 - 32 mmol/L LAB CHEMISTRY METHOD 10/05/2024 11:02 AM [facility] LAB Anion Gap 6 3 - 11 LAB CHEMISTRY METHOD 10/05/2024 11:02 AM [facility] LAB Glucose 70 70 - 100 mg/dL LAB CHEMISTRY METHOD 10/05/2024 11:02 AM [facility] LAB BUN 11 5 - 25 mg/dL LAB CHEMISTRY METHOD 10/05/2024 11:02 AM [facility] LAB Creatinine 0.71 0.50 - 1.10 mg/dL LAB CHEMISTRY METHOD 10/05/2024 11:02 AM [facility] LAB eGFR 83 >=60 mL/min/1. 73m2 LAB CHEMISTRY METHOD 10/05/2024 11:02 AM [facility] LAB Comment:Calculation based on the??Chronic Kidney Disease Epidemiology Collaboration (CKD-EPI) equation refit??without adjustment for race. BUN/Creatinine Ratio 15.5 LAB CHEMISTRY METHOD 10/05/2024 11:02 AM [facility] LAB Calcium 8.6 8.5 - 10.5 mg/dL LAB CHEMISTRY METHOD 10/05/2024 11:02 AM [facility] LAB Blood Venous blood specimen / Unknown Venipuncture / Unknown 10/05/2024 6:03 AM EST 10/05/2024 9:38 AM EST Angelo Kasper MD LAB BLOOD ORDERABLES [facility] LAB [address] [place] [address], documented in this encounter Visit Diagnoses Diagnosis Encounter for other general examination documented in this encounter
== END 2024-12-05 15:29 | disposition home or self-care (01) ==
PROVIDERS: PCP Internal Medicine; Visit Provider Anesthesiology
DX: M06.9 Rheumatoid arthritis, unspecified (principal); M47.816 Spondylosis without myelopathy or radiculopathy, lumbar region; M46.1 Sacroiliitis, not elsewhere classified; M53.3 Sacrococcygeal disorders, not elsewhere classified; G89.4 Chronic pain syndrome; S32.010A Wedge compression fracture of first lumbar vertebra, initial encounter for closed fracture
CPT/HCPCS: 99213

== ENCOUNTER → 2024-12-05 14:59 | Outpatient (BNVA) | payer MEDICARE, OTHER, SELFPAY | PROVIDERS: PCP Internal Medicine; Visit Provider Anesthesiology | DX: M06.9 Rheumatoid arthritis, unspecified (principal); M47.816 Spondylosis without myelopathy or radiculopathy, lumbar region; M46.1 Sacroiliitis, not elsewhere classified; M53.3 Sacrococcygeal disorders, not elsewhere classified; G89.4 Chronic pain syndrome; S32.010A Wedge compression fracture of first lumbar vertebra, initial encounter for closed fracture; X58.XXXA Exposure to other specified factors, initial encounter; Y93.9 Activity, unspecified; Y92.9 Unspecified place or not applicable; Y99.9 Unspecified external cause status | CPT/HCPCS: 99212 ==

== ENCOUNTER 2024-12-09 11:43 | Outpatient (AMB) | payer MEDICARE, OTHER, SELFPAY ==
[2024-12-09 11:50] VITALS: BP 132/62; PULSE 71; O2SAT 95; BMI 27.0
--- NOTE | 2024-12-09 11:50 | A.OFFPC_ITS ---
Vital Signs 12/09/24 11:50 Height 5 ft 6 in Weight 167 lb BMI 27.0 BP 132/62 Blood Pressure Location Lt brachial Position Sitting Pulse 71 Pulse Source Pulse Oximeter Pulse Oximetry (%) 95 Oxygen Delivery Method Room Air Intake Visit Reasons: LIYA Allergies alendronate sodium [From FOSAMAX] Allergy (Severe, Verified 12/09/24 11:50) ANAPHYLAXIS lisinopril [LISINOPRIL] Allergy (Severe, Verified 12/09/24 11:50) ANAPHYLAXIS, cough clarithromycin [CLARITHROMYCIN] Allergy (Intermediate, Verified 12/09/24 11:50) CONFUSION, sores on tongue, dry mouth simvastatin [SIMVASTATIN] Allergy (Mild, Verified 12/09/24 11:50) DRY THROAT, achy, confusion Tobacco use date assessed: 12/09/24 Fall risk assessment: No Falls in past year Last assessed Fall Risk: 12/09/24 Dental Screening Dental Screen Date: 11/07/24 HPI LIYA HPI Details The patient is an 84-year-old female presenting with pain management issues related to osteoporosis, vertebral fracture, and shoulder pain. She reports a history of osteoporosis previously managed with Prolia injections. However, she missed her most recent appointment and is uncertain about her current status on Prolia. Concerns regarding the cessation of Prolia were discussed, emphasizing the increased risk of bone weakening. The patient sustained a vertebral fracture, leading to significant pain, described as severe and debilitating. She has been prescribed Tramadol for pain management but reports limited effectiveness. She currently has a limited supply of Tramadol and one tablet remaining. Pain management continues to be a significant challenge, contributing to a depressed mood and affecting her quality of life. The patient also experiences persistent shoulder pain, exacerbating her overall discomfort. She articulates feelings of being unable to conduct daily activities due to the intensity of her symptoms. Her history is further complicated by her rehabilitation stay, during which medication management was not addressed adequately. Additionally, the patient exhibits concerns about missing her Prolia shot appointments essential for managing her osteoporosis. [facility] Medical History Pre-op chest exam Pre-op examination Meniere disease Transient ischemic attack (TIA) Osteoarthritis of shoulders, bilateral Rheumatoid arthritis Osteoarthritis of carpometacarpal (CMC) joint of right thumb Overweight (BMI 25.0-29.9) High cholesterol Hypertension Thrush, oral Nondisplaced fracture of fifth metatarsal bone, left foot, subsequent encounter for fracture with nonunion Seropositive rheumatoid arthritis Fracture of 5th metatarsal Fracture of fifth metatarsal bone of right foot Polymyalgia rheumatica Anxiety and depression Osteoarthritis Lumbar degenerative disc disease Osteoporosis Gout Restless leg syndrome Hypergammaglobulinemia GERD (gastroesophageal reflux disease) Seizure disorder Hypertension Hypercholesterolemia Asthma Peripheral neuropathy Rheumatoid arthritis Surgical History Corneal transplant status History of arthroplasty of right hip History of total abdominal hysterectomy History of corneal transplant H/O left knee surgery History of open reduction and internal fixation (ORIF) procedure History of cholecystectomy History of appendectomy Family History Father CVD (cardiovascular disease) Mother No problems noted. Social History (Updated 11/07/24 @ 11:40 by FREDIS Machuca) Household Members: Significant Other Household Members Other:: parter Housing: House Do you presently have visiting nurse or other home services: No Alcohol intake: current Alcohol intake frequency: holidays/special occasions only Alcohol type: wine Comment: patient uses call light appropriately Patient Tobacco Use Status: Never used Tobacco e-Cigarette/Vaping Use: Never Used Second Hand Smoke Exposure: No Advance Directives Date on File: 07/11/23 service: No Current occupational status: retired Cognitive needs: Yes (walker) Hearing needs: Yes Vision needs: Yes Questionnaire PHQ-9 Over the last 2 weeks, how often have you been bothered by any of the following problems? 1. Little interest or pleasure in doing things: not at all 2. Feeling down, depressed, or hopeless: several days 3. Trouble falling or staying asleep, or sleeping too much: not at all 4. Feeling tired or having little energy: more than half the days 5. Poor appetite or overeating: not at all 6. Feeling bad about yourself - or that you are a failure or have let yourself or your family down: not at all 7. Trouble concentrating on things, such as reading the newspaper or watching television: not at all 8. Moving or speaking so slowly that other people could have noticed. Or the opposite - being so fidgety or restless that you have been moving around a lot more than usual: not at all 9. Thoughts that you would be better off or of hurting yourself in some way: not at all Total score: 3 Depression Screening Interpretation: Positive Depression Screening Done: Yes Source: Developed by Drs. Montana Salmon, Annalise Muse, Chris Montana and colleagues, with an educational shiela from [employer]. Thrive Questionnaire Date Thrive assessed: 11/07/24 AUDIT C Alcohol Use Questionnaire (AUDIT-C) 2. How many drinks containing alcohol do you have on a typical day when you are drinking?: 1 or 2 3. How often do you have six or more drinks on one occasion?: Never Total Score: 0 LIYA-7 AMB Questionnaire LIYA-7 Date LIYA - 7 assessed: 11/07/24 Source: Developed by Drs. Montana Salmon, Annalise Muse, Chris Montana and colleagues, with an educational shiela from [employer]. Physical exam (Primary Care) Vital Signs: Last Vital Signs Pulse 71 12/09/24 11:50 BP 132/62 12/09/24 11:50 Pulse Ox 95 12/09/24 11:50 Oxygen Delivery Method Room Air 12/09/24 11:50 BMI result Body Mass Index 27.0 Tobacco/Smoking Status: Tobacco use Status Tobacco use date assessed 12/09/24 12/09/24 11:58 Patient Tobacco Use Status Never used Tobacco 12/09/24 11:58 e-Cigarette/Vaping Use Never Used 12/09/24 11:58 PHQ-9: PHQ-9 Score PHQ-9: Total score 3 12/09/24 11:58 Depression Screening Interpretation: Positive Thrive Assessment: Date of Thrive Assessment Date Thrive assessed 11/07/24 12/09/24 11:58 Const General: alert; No acute distress Eyes Conjunctivae: conjunctivae normal Resp Auscultation: clear to auscultation bilaterally Cardio Rate: regular rate Rhythm: regular rhythm GI Inspection: Yes normal to inspection Extrem General: Yes normal to inspection and No edema Coding Level of Care Code Est Pt Level 4 (38271) Complex EM visit Add On G2211 Diagnoses Compression fracture of L1 lumbar vertebra S32.010A Essential hypertension I10 Hypertension type: essential hypertension Hypercholesterolemia E78.00 Gastroesophageal reflux disease without esophagitis K21.9 Esophagitis presence: without esophagitis Mild intermittent asthma without complication J45.20 Asthma severity: mild Asthma persistence: intermittent Asthma complication type: uncomplicated Age-related osteoporosis without current pathological fracture M81.0 Osteoporosis type: age-related Presence of current pathological fracture: without current pathological fracture Assessment & Plan Assessment & Plan (1) Compression fracture of L1 lumbar vertebra: Comment: indeterminate age Code(s): S32.010A - Wedge compression fracture of first lumbar vertebra, initial encounter for closed fracture Category: Medical Plan: Patient continues to follow-up with pain management. Will refill the tramadol for pain (2) Hypertension: Code(s): I10 - Essential (primary) hypertension Category: Medical Qualifiers: Hypertension type: essential hypertension Qualified Code(s): I10 - Essential (primary) hypertension Plan: Continue with blood pressure medication on amlodipine 5 mg once a day metoprolol 25 mg once a day (3) Hypercholesterolemia: Code(s): E78.00 - Pure hypercholesterolemia, unspecified Category: Medical Plan: Avoid fried foods, chicken skin, eggs, butter margarine, pastries and meat. Be it pork or beef they have a lot of cholesterol on atorvastatin 40 mg once a day (4) GERD (gastroesophageal reflux disease): Code(s): K21.9 - Gastro-esophageal reflux disease without esophagitis Category: Medical Qualifiers: Esophagitis presence: without esophagitis Qualified Code(s): K21.9 - Gastro-esophageal reflux disease without esophagitis Plan: Avoid the foods that causes that usually spicy foods, tomato products, juices, coffee, soda and foods that your sensitive to. After eating do not lie down, allow 3-4 hours before in lie down. And keep the head of bed above 30 degrees to avoid the acid from going up. (5) Asthma: Code(s): J45.909 - Unspecified asthma, uncomplicated Category: Medical Qualifiers: Asthma severity: mild Asthma persistence: intermittent Asthma complication type: uncomplicated Qualified Code(s): J45.20 - Mild intermittent asthma, uncomplicated Plan: Stable (6) Osteoporosis: Comment: Forrest: 2011 to 2019. Alendronate: experienced anaphylaxis patient cannot recall what happened with this. Prolia recommended, January 2022. Patient received a dose 04/2023 Code(s): M81.0 - Age-related osteoporosis without current pathological fracture Category: Medical Qualifiers: Osteoporosis type: age-related Presence of current pathological fracture: without current pathological fracture Qualified Code(s): M81.0 - Age- related osteoporosis without current pathological fracture Plan: Discussed about continuing with Prolia. Was not able to follow-up with the Rheumatology due to being on rehab. Patient knows to call Plan - Initiate a prescription of 90 Tramadol tablets, with a dosing regimen of starting with one tablet daily, gradually increasing to twice a day as tolerated, to manage pain from the vertebral fracture and shoulder pain. - Reinforce the importance of resuming regular Prolia injections to prevent further osteoporosis-related complications. The patient is advised to contact her rheumatology provider to arrange future appointments promptly. - Complete and provide forms for acquiring a handicap parking permit to improve mobility and access. - Encourage precautionary health measures, including obtaining current vaccinations for influenza, COVID-19, and RSV to mitigate infection risks, particularly given the current prevalence of respiratory illnesses. - Address mental health concerns, ensuring the patient receives the necessary support to manage her depression related to chronic pain conditions. Medications: Changed From tramadol 50 mg PO DAILY PRN 15 tabs 2RF pain M19.011 - Primary osteoarthritis, right shoulder, M19.012 - Primary osteoarthritis, left shoulder To tramadol 50 mg PO TID PRN 90 tabs 0RF pain M19.011 - Primary osteoarthritis, right shoulder, M19.012 - Primary osteoarthritis, left shoulder
--- OUTSIDE RECORDS SUMMARY | 2024-12-09 13:03 | XMS_ITS | Encounter Summary ---
Author Organization [facility] Address [address] [place] [address] Care Team Providers Care Tie Knitter Helper Name Role Phone Unavailable Primary Care Provider Unavailabl e Encounter Details Date Type Department Care Team (Late st Contact Info) Description 09/29/2024 Lab Requisition [facility] - Main Lab [address] [place] [address] Angelo Kasper MD [address] [place] [address] Encounter for other general examination Social History [...] AM EST) WBC 11.5(H) 4.8 - 10.8 K/[facility] LAB HEMETOLOGY METHOD 09/29/2024 11:08 AM EST [facility] LAB RBC 4.10 3.80 - 4.80 M/[facility] LAB HEMETOLOGY METHOD 09/29/2024 11:08 AM [facility] LAB Hemoglobin 12.5 11.5 - 16.0 g/dL LAB HEMETOLOGY METHOD 09/29/2024 11:08 AM [facility] LAB Hematocrit 39.9 35.0 - 47.0 % LAB HEMETOLOGY METHOD 09/29/2024 11:08 AM [facility] LAB MCV 96.8 79.0 - 98.0 FL LAB HEMETOLOGY METHOD 09/29/2024 11:08 AM [facility] LAB MCH 30.3 27.0 - 32.0 pcg LAB HEMETOLOGY METHOD 09/29/2024 11:08 AM [facility] LAB MCHC 31.3(L) 32.0 - 37.0 g/dL LAB HEMETOLOGY METHOD 09/29/2024 11:08 AM [facility] LAB RDW 14.0 11.0 - 15.0 % LAB HEMETOLOGY METHOD 09/29/2024 11:08 AM [facility] LAB Platelets 293 130 - 400 K/[facility] LAB HEMETOLOGY METHOD 09/29/2024 11:08 AM [facility] LAB MPV 9.5 7.0 - 11.0 FL LAB HEMETOLOGY METHOD 09/29/2024 11:08 AM [facility] LAB NRBC 0.0 <1.0 % LAB HEMETOLOGY METHOD 09/29/2024 11:08 AM [facility] LAB NRBC Absolute 0.00 <0.10 K/[facility] LAB HEMETOLOGY METHOD 09/29/2024 11:08 AM [facility] LAB Neutrophils Relative 54.5 % LAB HEMETOLOGY METHOD 09/29/2024 11:08 AM [facility] LAB Lymphocytes Relative 34.1 % LAB HEMETOLOGY METHOD 09/29/2024 11:08 AM [facility] LAB Monocytes Relative 5.0 % LAB HEMETOLOGY METHOD 09/29/2024 11:08 AM [facility] LAB Eosinophils Relative 4.3 % LAB HEMETOLOGY METHOD 09/29/2024 11:08 AM [facility] LAB Basophils Relative 1.0 % LAB HEMETOLOGY METHOD 09/29/2024 11:08 AM [facility] LAB Immature Granulocytes Relative 1.1 % LAB HEMETOLOGY METHOD 09/29/2024 11:08 AM [facility] LAB Neutrophils Absolute 6.25 1.50 - 7.00 K/mcL LAB HEMETOLOGY METHOD 09/29/2024 11:08 AM [facility] LAB Lymphocytes Absolute 3.93 1.00 - 5.00 K/mcL LAB HEMETOLOGY METHOD 09/29/2024 11:08 AM [facility] LAB Monocytes Absolute 0.58 0.20 - 1.00 K/mcL LAB HEMETOLOGY METHOD 09/29/2024 11:08 AM [facility] LAB Eosinophils Absolute 0.50 0.00 - 0.50 K/mcL LAB HEMETOLOGY METHOD 09/29/2024 11:08 AM [facility] LAB Basophils Absolute 0.12 0.00 - 0.20 K/mcL LAB HEMETOLOGY METHOD 09/29/2024 11:08 AM [facility] LAB Immature Granulocytes Absolute 0.13(H) 0.00 - 0.03 K/mcL LAB HEMETOLOGY METHOD 09/29/2024 11:08 AM [facility] LAB Blood Venous blood specimen / Unknown Venipuncture / Unknown 09/29/2024 7:35 AM EST 09/29/2024 10:30 AM EST Angelo Kasper MD LAB BLOOD ORDERABLES [facility] [address] [place] [address], * Magnesium (09/29/2024 7:35 AM EST) Magnesium 2.1 1.9 - 2.6 mg/dL LAB CHEMISTRY METHOD 09/29/2024 11:09 AM [facility] LAB Blood Venous blood specimen / Unknown Venipuncture / Unknown 09/29/2024 7:35 AM EST 09/29/2024 10:30 AM EST Angelo Kasper MD LAB BLOOD ORDERABLES [facility] LAB [address] [place] [address], * (ABNORMAL) Comprehensive metabolic panel (09/29/2024 7:35 AM EST) Sodium 138 133 - 145 mmol/L LAB CHEMISTRY METHOD 09/29/2024 11:09 AM [facility] LAB Potassium 4.8 3.5 - 5.5 mmol/L LAB CHEMISTRY METHOD 09/29/2024 11:09 AM [facility] LAB Chloride 107 96 - 110 mmol/L LAB CHEMISTRY METHOD 09/29/2024 11:09 AM [facility] LAB CO2 24 21 - 32 mmol/L LAB CHEMISTRY METHOD 09/29/2024 11:09 AM [facility] LAB Anion Gap 7 3 - 11 LAB CHEMISTRY METHOD 09/29/2024 11:09 AM [facility] LAB Glucose 75 70 - 100 mg/dL LAB CHEMISTRY METHOD 09/29/2024 11:09 AM [facility] LAB BUN 16 5 - 25 mg/dL LAB CHEMISTRY METHOD 09/29/2024 11:09 AM [facility] LAB Creatinine 0.79 0.50 - 1.10 mg/dL LAB CHEMISTRY METHOD 09/29/2024 11:09 AM [facility] LAB eGFR 73 >=60 mL/min/1. 73m2 LAB CHEMISTRY METHOD 09/29/2024 11:09 AM [facility] LAB Comment:Calculation based on the??Chronic Kidney Disease Epidemiology Collaboration (CKD-EPI) equation refit??without adjustment for race. BUN/Creatinine Ratio 20.3 LAB CHEMISTRY METHOD 09/29/2024 11:09 AM [facility] LAB Calcium 9.3 8.5 - 10.5 mg/dL LAB CHEMISTRY METHOD 09/29/2024 11:09 AM [facility] LAB AST (SGOT) 29 10 - 42 unit/L LAB CHEMISTRY METHOD 09/29/2024 11:09 AM [facility] LAB ALT (SGPT) 33 10 - 60 unit/L LAB CHEMISTRY METHOD 09/29/2024 11:09 AM [facility] LAB Alkaline Phosphatase 134(H) 42 - 121 unit/L LAB CHEMISTRY METHOD 09/29/2024 11:09 AM [facility] LAB Total Protein 6.8 6.0 - 8.0 g/dL LAB CHEMISTRY METHOD 09/29/2024 11:09 AM [facility] LAB Albumin 3.5 3.2 - 5.0 g/dL LAB CHEMISTRY METHOD 09/29/2024 11:09 AM [facility] LAB Total Bilirubin 0.5 0.0 - 1.4 mg/dL LAB CHEMISTRY METHOD 09/29/2024 11:09 AM [facility] LAB Blood Venous blood specimen / Unknown Venipuncture / Unknown 09/29/2024 7:35 AM EST 09/29/2024 10:30 AM EST Angelo Kasper MD LAB BLOOD ORDERABLES [facility] [address] [place] [address], documented in this encounter Visit Diagnoses Diagnosis Encounter for other general examination documented in this encounter
--- OUTSIDE RECORDS SUMMARY | 2024-12-09 13:03 | XMS_ITS | Encounter Summary ---
Author Organization [facility] Address [address] [place] [address] Care Team Providers Care Tile Layer Name Role Phone Unavailable Primary Care Provider Unavailabl e Encounter Details Date Type Department Care Team (Late st Contact Info) Description 10/06/2024 Lab Requisition [facility] - Main Lab [address] [place] [address] Angelo Kasper MD [address] [place] [phone] Encounter for other general examination Social History [...] LAB CHEMISTRY METHOD 10/06/2024 9:33 AM EST [facility] LAB Blood Venous blood specimen / Unknown Venipuncture / Unknown 10/06/2024 5:48 AM EST 10/06/2024 6:48 AM EST Narrative [facility] - 10/06/2024 9:33 AM EST [facility] ?? 8 AM SPEC: ??5.0-23.0 mcg/dL ?? 4 PM SPEC: ??3.0-16.0 mcg/dL ?? 8 PM SPEC: ??<5.0 mcg/dL Angelo Kasper MD LAB BLOOD ORDERABLES Performing Organization Address [facility]/ZIP Co de Phone Number [facility] [address] [place] [address], * Thyroid stimulating hormone (10/06/2024 5:48 AM EST) [facility] TSH 2.14 0.40 - 4.00 mcIU/mL LAB CHEMISTRY METHOD 10/06/2024 8:28 AM EST [facility] Blood Venous blood specimen / Unknown Venipuncture / Unknown 10/06/2024 5:48 AM EST 10/06/2024 6:48 AM EST Angelo Kasper MD LAB BLOOD ORDERABLES Performing Organization Address [facility]/ZIP Co de Phone Number [facility] [address] [place] [address], * (ABNORMAL) Basic metabolic panel (10/06/2024 5:48 AM EST) [facility] Sodium 130(L) 133 - 145 mmol/L LAB CHEMISTRY METHOD 10/06/2024 7:23 AM [facility] Potassium 4.0 3.5 - 5.5 mmol/L LAB CHEMISTRY METHOD 10/06/2024 7:23 AM EST [facility] Chloride 98 96 - 110 mmol/L LAB CHEMISTRY METHOD 10/06/2024 7:23 AM EST [facility] CO2 26 21 - 32 mmol/L LAB CHEMISTRY METHOD 10/06/2024 7:23 AM [facility] LAB Anion Gap 6 3 - 11 LAB CHEMISTRY METHOD 10/06/2024 7:23 AM [facility] LAB Glucose 76 70 - 100 mg/dL LAB CHEMISTRY METHOD 10/06/2024 7:23 AM EST [facility] BUN 9 5 - 25 mg/dL LAB CHEMISTRY METHOD 10/06/2024 7:23 AM [facility] LAB Creatinine 0.62 0.50 - 1.10 mg/dL LAB CHEMISTRY METHOD 10/06/2024 7:23 AM [facility] LAB eGFR 87 >=60 mL/min/1. 73m2 LAB CHEMISTRY METHOD 10/06/2024 7:23 AM EST [facility] LAB Comment:Calculation based on the??Chronic Kidney Disease Epidemiology Collaboration (CKD-EPI) equation refit??without adjustment for race. BUN/Creatinine Ratio 14.5 LAB CHEMISTRY METHOD 10/06/2024 7:23 AM [facility] LAB Calcium 8.4(L) 8.5 - 10.5 mg/dL LAB CHEMISTRY METHOD 10/06/2024 7:23 AM EST [facility] Blood Venous blood specimen / Unknown Venipuncture / Unknown 10/06/2024 5:48 AM EST 10/06/2024 6:48 AM EST Angelo Kasper MD LAB BLOOD ORDERABLES [facility] [address] [place] [address], documented in this encounter Visit Diagnoses Diagnosis Encounter for other general examination documented in this encounter
--- OUTSIDE RECORDS SUMMARY | 2024-12-09 13:03 | XMS_ITS | Clinical Summary ---
Author Organization [facility] Address [address] [place] [address] Care Team Providers Care Multilith Operator Name Role Phone Unavailable Primary Care Provider [...]
--- OUTSIDE RECORDS SUMMARY | 2024-12-09 13:03 | XMS_ITS | Encounter Summary ---
Author Organization [facility] Address [address] [place] [address] Care Team Providers Care Fine Sander Name Role Phone Unavailable Primary Care Provider Unavailabl e Encounter Details Date Type Department Care Team (Late st Contact Info) Description 10/05/2024 Lab Requisition [facility] - Main Lab [address] [facility] [place] [address] Angelo Kasper MD [address] [place] [address] Encounter for other general examination Social History [...] LAB CHEMISTRY METHOD 10/05/2024 11:02 AM EST [facility] Potassium 4.1 3.5 - 5.5 mmol/L LAB CHEMISTRY METHOD 10/05/2024 11:02 AM EST [facility] Chloride 93(L) 96 - 110 mmol/L LAB CHEMISTRY METHOD 10/05/2024 11:02 AM [facility] LAB CO2 27 21 - 32 mmol/L LAB CHEMISTRY METHOD 10/05/2024 11:02 AM [facility] LAB Anion Gap 6 3 - 11 LAB CHEMISTRY METHOD 10/05/2024 11:02 AM [facility] LAB Glucose 70 70 - 100 mg/dL LAB CHEMISTRY METHOD 10/05/2024 11:02 AM [facility] LAB BUN 11 5 - 25 mg/dL LAB CHEMISTRY METHOD 10/05/2024 11:02 AM [facility] LAB Creatinine 0.71 0.50 - 1.10 mg/dL LAB CHEMISTRY METHOD 10/05/2024 11:02 AM [facility] LAB eGFR 83 >=60 mL/min/1. 73m2 LAB CHEMISTRY METHOD 10/05/2024 11:02 AM [facility] LAB Comment:Calculation based on the??Chronic Kidney Disease Epidemiology Collaboration (CKD-EPI) equation refit??without adjustment for race. BUN/Creatinine Ratio 15.5 LAB CHEMISTRY METHOD 10/05/2024 11:02 AM [facility] LAB Calcium 8.6 8.5 - 10.5 mg/dL LAB CHEMISTRY METHOD 10/05/2024 11:02 AM [facility] LAB Blood Venous blood specimen / Unknown Venipuncture / Unknown 10/05/2024 6:03 AM EST 10/05/2024 9:38 AM EST Angelo Kasper MD LAB BLOOD ORDERABLES [facility] [address] [place] [address], documented in this encounter Visit Diagnoses Diagnosis Encounter for other general examination documented in this encounter
--- OUTSIDE RECORDS SUMMARY | 2024-12-09 13:04 | XMS_ITS | Encounter Summary ---
Author Organization [facility] Address [address] [place] [address] Care Team Providers Care Sweet Goods Machine Operator Name Role Phone Unavailable Primary Care Provider Unavailabl e Encounter Details Date Type Department Care Team (Late st Contact Info) Description 10/09/[address] [facility] - Main Lab [address] [facility] [place] [address] Angelo Kasper MD [address] [place] [address] Encounter for other general examination Social History [...] mmol/L LAB CHEMISTRY METHOD 10/09/2024 12:04 PM [facility] Potassium 4.1 3.5 - 5.5 mmol/L LAB CHEMISTRY METHOD 10/09/2024 12:04 PM [facility] LAB Chloride 100 96 - 110 mmol/L LAB CHEMISTRY METHOD 10/09/2024 12:04 PM [facility] LAB CO2 26 21 - 32 mmol/L LAB CHEMISTRY METHOD 10/09/2024 12:04 PM [facility] LAB Anion Gap 6 3 - 11 LAB CHEMISTRY METHOD 10/09/2024 12:04 PM [facility] LAB Glucose 62(L) 70 - 100 mg/dL LAB CHEMISTRY METHOD 10/09/2024 12:04 PM [facility] LAB BUN 12 5 - 25 mg/dL LAB CHEMISTRY METHOD 10/09/2024 12:04 PM [facility] LAB Creatinine 0.71 0.50 - 1.10 mg/dL LAB CHEMISTRY METHOD 10/09/2024 12:04 PM [facility] LAB eGFR 83 >=60 mL/min/1. 73m2 LAB CHEMISTRY METHOD 10/09/2024 12:04 PM [facility] LAB Comment:Calculation based on the??Chronic Kidney Disease Epidemiology Collaboration (CKD-EPI) equation refit??without adjustment for race. BUN/Creatinine Ratio 16.9 LAB CHEMISTRY METHOD 10/09/2024 12:04 PM [facility] LAB Calcium 8.8 8.5 - 10.5 mg/dL LAB CHEMISTRY METHOD 10/09/2024 12:04 PM [facility] LAB Blood Venous blood specimen / Unknown Venipuncture / Unknown 10/09/2024 7:03 AM EST 10/09/2024 10:19 AM EST Angelo Kasper MD LAB BLOOD ORDERABLES [facility] [address] [place] [address], documented in this encounter Visit Diagnoses Diagnosis Encounter for other general examination documented in this encounter
--- OUTSIDE RECORDS SUMMARY | 2024-12-09 13:04 | XMS_ITS | Encounter Summary ---
Author Organization [facility] Address [address] [place] [address] Care Team Providers Care Shell Molding Roller Blast Operator Name Role Phone Unavailable Primary Care Provider Unavailabl e Encounter Details Date Type Department Care Team (Late st Contact Info) Description 10/04/2024 Lab Requisition [facility] - Main Lab [address] [place] [address] Angelo Kasper MD [address] [place] [address] Encounter for other general examination Social History [...] LAB CHEMISTRY METHOD 10/04/2024 10:45 AM EST [facility] Blood Venous blood specimen / Unknown Venipuncture / Unknown 10/04/2024 5:56 AM EST 10/04/2024 9:06 AM EST Angelo Kasper MD LAB BLOOD ORDERABLES [facility] [address] [place] [address], documented in this encounter Visit Diagnoses Diagnosis Encounter for other general examination documented in this encounter
--- OUTSIDE RECORDS SUMMARY | 2024-12-09 13:04 | XMS_ITS | Encounter Summary ---
Author Organization [facility] Address [address] [place] [address] Care Team Providers Care Court Bailiff Or Sheriff Name Role Phone Unavailable Primary Care Provider Unavailabl e Encounter Details Date Type Department Care Team (Late st Contact Info) Description 10/11/2024 Lab Requisition [facility] [address] [facility] [place] [address] Angelo Kasper MD [address] [place] [address] Encounter for other general examination Social History [...] mmol/L LAB CHEMISTRY METHOD 10/11/2024 1:13 PM [facility] Potassium 4.0 3.5 - 5.5 mmol/L LAB CHEMISTRY METHOD 10/11/2024 1:13 PM [facility] Chloride 102 96 - 110 mmol/L LAB CHEMISTRY METHOD 10/11/2024 1:13 PM [facility] CO2 23 21 - 32 mmol/L LAB CHEMISTRY METHOD 10/11/2024 1:13 PM [facility] Anion Gap 9 3 - 11 LAB CHEMISTRY METHOD 10/11/2024 1:13 PM EST [facility] Glucose 80 70 - 100 mg/dL LAB CHEMISTRY METHOD 10/11/2024 1:13 PM [facility] BUN 25 5 - 25 mg/dL LAB CHEMISTRY METHOD 10/11/2024 1:13 PM [facility] Creatinine 0.99 0.50 - 1.10 mg/dL LAB CHEMISTRY METHOD 10/11/2024 1:13 PM [facility] LAB eGFR 56(L) >=60 mL/min/1. 73m2 LAB CHEMISTRY METHOD 10/11/2024 1:13 PM [facility] LAB Comment:Calculation based on the??Chronic Kidney Disease Epidemiology Collaboration (CKD-EPI) equation refit??without adjustment for race. BUN/Creatinine Ratio 25.3 LAB CHEMISTRY METHOD 10/11/2024 1:13 PM [facility] Calcium 8.7 8.5 - 10.5 mg/dL LAB CHEMISTRY METHOD 10/11/2024 1:13 PM [facility] Blood Venous blood specimen / Unknown Venipuncture / Unknown 10/11/2024 7:25 AM EST 10/11/2024 11:51 AM EST Angelo Kasper MD LAB BLOOD ORDERABLES [facility] [address] [place] [address], documented in this encounter Visit Diagnoses Diagnosis Encounter for other general examination documented in this encounter
--- OUTSIDE RECORDS SUMMARY | 2024-12-09 13:04 | XMS_ITS | Encounter Summary ---
Author Organization [facility] Address [address] [place] [address] Care Team Providers Care Law Researcher Name Role Phone Unavailable Primary Care Provider Unavailabl e Encounter Details Date Type Department Care Team (Late st Contact Info) Description 10/07/2024 Lab Requisition [facility] - Main Lab [address] [facility] [place] [address] Angelo Kasper MD [address] [place] [phone] Encounter for other general examination Social History [...] LAB CHEMISTRY METHOD 10/07/2024 2:59 PM EST [facility] Potassium 4.2 3.5 - 5.5 mmol/L LAB CHEMISTRY METHOD 10/07/2024 2:59 PM EST [facility] Chloride 98 96 - 110 mmol/L LAB CHEMISTRY METHOD 10/07/2024 2:59 PM EST [facility] CO2 22 21 - 32 mmol/L LAB CHEMISTRY METHOD 10/07/2024 2:59 PM EST [facility] Anion Gap 10 3 - 11 LAB CHEMISTRY METHOD 10/07/2024 2:59 PM EST [facility] Glucose 63(L) 70 - 100 mg/dL LAB CHEMISTRY METHOD 10/07/2024 2:59 PM [facility] BUN 9 5 - 25 mg/dL LAB CHEMISTRY METHOD 10/07/2024 2:59 PM [facility] Creatinine 0.55 0.50 - 1.10 mg/dL LAB CHEMISTRY METHOD 10/07/2024 2:59 PM [facility] eGFR 89 >=60 mL/min/1. 73m2 LAB CHEMISTRY METHOD 10/07/2024 2:59 PM [facility] Comment:Calculation based on the??Chronic Kidney Disease Epidemiology Collaboration (CKD-EPI) equation refit??without adjustment for race. BUN/Creatinine Ratio 16.4 LAB CHEMISTRY METHOD 10/07/2024 2:59 PM [facility] Calcium 8.3(L) 8.5 - 10.5 mg/dL LAB CHEMISTRY METHOD 10/07/2024 2:59 PM [facility] Blood Venous blood specimen / Unknown 10/07/2024 7:28 AM EST 10/07/2024 12:05 PM EST Angelo Kasper MD LAB BLOOD ORDERABLES [facility] [address] [place] [address], documented in this encounter Visit Diagnoses Diagnosis Encounter for other general examination documented in this encounter
--- OUTSIDE RECORDS SUMMARY | 2024-12-09 13:04 | XMS_ITS | Clinical Summary ---
Author Organization [address] Address [address] [place] [address] Phone Care Team Providers Care Cylinder Press Operator Apprentice Name Role Phone Unavailable Primary Care Provider Unavailabl e Encounters Date Type Department Care Team Description 10/11/2024 Lab Requisition [facility] [address] [place] [phone] Angelo Kasper MD Encounter for other general examination 10/09/2024 Lab Requisition [facility] Lab [address] [place] [address] Angelo Kasper MD Encounter for other general examination 10/07/2024 Lab Requisition [facility] Lab [address] [place] [address] Angelo Kasper MD Encounter for other general examination 10/06/2024 Lab Requisition [facility] Lab [address] [place] [address] Angelo Kasper MD Encounter for other general examination 10/05/2024 Lab Requisition [facility] Lab [address] [place] [address] Angelo Kasper MD Encounter for other general examination 10/04/2024 Lab Requisition [facility] Lab [address] [place] [address] Angelo Kasper MD Encounter for other general examination 10/04/2024 Lab Requisition [facility] Lab [address] [place] [address] Angelo Kasper MD Encounter for other general examination 10/03/[address] [facility] Lab [address] [place] [phone] Angelo Kasper MD Encounter for other general examination 09/30/2024 Lab Requisition [facility] Lab [address] [place] [phone] Angelo Kasper MD Encounter for other general examination 09/29/2024 Lab Requisition [facility] Lab [address] [place] [phone] Angelo Kasper MD Encounter for other general [...] LAB CHEMISTRY METHOD 10/11/2024 1:13 PM [facility] Potassium 4.0 3.5 - 5.5 mmol/L LAB CHEMISTRY METHOD 10/11/2024 1:13 PM [facility] Chloride 102 96 - 110 mmol/L LAB CHEMISTRY METHOD 10/11/2024 1:13 PM [facility] CO2 23 21 - 32 mmol/L LAB CHEMISTRY METHOD 10/11/2024 1:13 PM [facility] Anion Gap 9 3 - 11 LAB CHEMISTRY METHOD 10/11/2024 1:13 PM [facility] Glucose 80 70 - 100 mg/dL LAB CHEMISTRY METHOD 10/11/2024 1:13 PM [facility] BUN 25 5 - 25 mg/dL LAB CHEMISTRY METHOD 10/11/2024 1:13 PM [facility] Creatinine 0.99 0.50 - 1.10 mg/dL LAB CHEMISTRY METHOD 10/11/2024 1:13 PM EST [facility] eGFR 56(L) >=60 mL/min/1. 73m2 LAB CHEMISTRY METHOD 10/11/2024 1:13 PM EST [facility] Comment:Calculation based on the??Chronic Kidney Disease Epidemiology Collaboration (CKD-EPI) equation refit??without adjustment for race. BUN/Creatinine Ratio 25.3 LAB CHEMISTRY METHOD 10/11/2024 1:13 PM [facility] Calcium 8.7 8.5 - 10.5 mg/dL LAB CHEMISTRY METHOD 10/11/2024 1:13 PM [facility] Blood Venous blood specimen / Unknown Venipuncture / Unknown 10/11/2024 7:25 AM EST 10/11/2024 11:51 AM EST Angelo Kasper MD LAB BLOOD ORDERABLES [facility] [address] [place] [address], * Thyroid stimulating hormone (10/06/2024 5:48 AM EST) TSH 2.14 0.40 - 4.00 mcIU/mL LAB CHEMISTRY METHOD 10/06/2024 8:28 AM EST [facility] Blood Venous blood specimen / Unknown Venipuncture / Unknown 10/06/2024 5:48 AM EST 10/06/2024 6:48 AM EST Angelo Kasper MD LAB BLOOD ORDERABLES [facility] [address] [place] [address], [place] [phone] * Cortisol (10/06/2024 5:48 AM EST) Cortisol 11.8 mcg/dL LAB CHEMISTRY METHOD 10/06/2024 9:33 AM EST [facility] Blood Venous blood specimen / Unknown Venipuncture / Unknown 10/06/2024 5:48 AM EST 10/06/2024 6:48 AM EST Narrative [facility] - 10/06/2024 9:33 AM EST CORTISOL REFERENCE RANGE ?? 8 AM SPEC: ??5.0-23.0 mcg/dL ?? 4 PM SPEC: ??3.0-16.0 mcg/dL ?? 8 PM SPEC: ??<5.0 mcg/dL Angelo Kasper MD LAB BLOOD ORDERABLES Performing Organization Address [facility]/ZIP Co de Phone Number [facility] [address] [place] [address], [place] [phone] * (ABNORMAL) Osmolality (10/04/2024 5:56 AM EST) [facility] Osmolality Grisel 265(L) 280 - 300 mOsm/kg LAB CHEMISTRY METHOD 10/04/2024 10:45 AM EST [facility] Blood Venous blood specimen / Unknown Venipuncture / Unknown 10/04/2024 5:56 AM EST 10/04/2024 9:06 AM EST Angelo Kasper MD LAB BLOOD ORDERABLES Performing Organization Address [facility]/ZIP Co de Phone Number [facility] [address] [place] [address], [place] [phone] * (ABNORMAL) Urinalysis with reflex microscopic and culture (10/04/2024 4:00 AM EST) [facility] Specific [place] Urine 1.018 1.003 - 1.030 LAB URINALYSIS - AUTOMATED METHOD 10/04/2024 9:55 AM EST [facility] pH, Urine 7.0 5.0 - 8.0 pH LAB URINALYSIS - AUTOMATED METHOD 10/04/2024 9:55 AM [facility] Leukocytes, Urine Negative Negative LAB URINALYSIS - AUTOMATED METHOD 10/04/2024 9:55 AM [facility] Nitrite, Urine Negative Negative LAB URINALYSIS - AUTOMATED METHOD 10/04/2024 9:55 AM [facility] Protein, Urine Negative <=Trace mg/dL LAB URINALYSIS - AUTOMATED METHOD 10/04/2024 9:55 AM [facility] Glucose, Urine Negative Negative mg/dL LAB URINALYSIS - AUTOMATED METHOD 10/04/2024 9:55 AM [facility] Ketones, Urine Trace(A) Negative mg/dL LAB URINALYSIS - AUTOMATED METHOD 10/04/2024 9:55 AM [facility] Urobilinogen, Urine 1.0 0.2 - 1.0 mg/dL LAB URINALYSIS - AUTOMATED METHOD 10/04/2024 9:55 AM [facility] Bilirubin, Urine Negative Negative LAB URINALYSIS - AUTOMATED METHOD 10/04/2024 9:55 AM [facility] Blood, Urine Negative Negative LAB URINALYSIS - AUTOMATED METHOD 10/04/2024 9:55 AM [facility] Urine Urine specimen obtained by clean catch procedure / Unknown Non-blood Collection / Unknown 10/04/2024 4:00 AM EST 10/04/2024 9:37 AM EST Angelo Kasper MD LAB URINE ORDERABLES [facility] [address] [place] [address], * Navarro urine culture tube (10/04/2024 4:00 AM EST) Extra Tube Hold for add-ons. 10/04/2024 11:01 AM [facility] Comment:Auto resulted. Urine Urine specimen obtained by clean catch procedure / Unknown Non-blood Collection / Unknown 10/04/2024 4:00 AM EST 10/04/2024 9:37 AM EST Angelo Kasper MD LAB URINE ORDERABLES Performing Organization Address [facility] Co de Phone Number [facility] [address] [place] [address], [place] [phone] * Sodium, urine, random (10/04/2024 4:00 AM EST) Sodium, Ur 87 mmol/L LAB CHEMISTRY METHOD 10/04/2024 10:46 AM EST [facility] Urine Urine specimen obtained by clean catch procedure / Unknown Non-blood Collection / Unknown 10/04/2024 4:00 AM EST 10/04/2024 9:37 AM EST Angelo Kasper MD LAB URINE ORDERABLES Performing Organization Address [facility] de Phone Number [facility] [address] [place] [address], [place] [phone] * Osmolality, urine (10/04/2024 4:00 AM EST) Osmolality, Urine 475 300 - 1,300 mOsm/kg LAB CHEMISTRY METHOD 10/04/2024 10:45 AM EST [facility] Urine Urine specimen obtained by clean catch procedure / Unknown Non-blood Collection / Unknown 10/04/2024 4:00 AM EST 10/04/2024 9:37 AM EST Angelo Kasper MD LAB URINE ORDERABLES Performing Organization Address [facility] Co de Phone Number [facility] [address] [place] [address], [place] [phone] * (ABNORMAL) CBC auto differential (10/03/2024 6:25 AM EST) Only the most recent of2 resultswithin the time period is included. [facility] WBC 4.2(L) 4.8 - 10.8 K/mcL LAB HEMETOLOGY METHOD 10/03/2024 11:02 AM [facility] RBC 4.00 3.80 - 4.80 M/mcL LAB HEMETOLOGY METHOD 10/03/2024 11:02 AM [facility] Hemoglobin 12.0 11.5 - 16.0 [...] EST Angelo Kasper MD LAB BLOOD ORDERABLES [facility] [address] [place] [address], * (ABNORMAL) Complete blood count (09/30/2024 7:07 AM EST) WBC 11.5(H) 4.8 - 10.8 K/mcL LAB HEMETOLOGY METHOD 09/30/2024 1:38 PM [facility] RBC 4.10 3.80 - 4.80 M/mcL LAB HEMETOLOGY METHOD 09/30/2024 1:38 PM [facility] Hemoglobin 12.4 11.5 - 16.0 g/dL LAB HEMETOLOGY METHOD 09/30/2024 1:38 PM [facility] Hematocrit 38.8 35.0 - 47.0 % LAB HEMETOLOGY METHOD 09/30/2024 1:38 PM [facility] MCV 95.1 79.0 - 98.0 FL LAB HEMETOLOGY METHOD 09/30/2024 1:38 PM [facility] MCH 30.4 27.0 - 32.0 pcg LAB HEMETOLOGY METHOD 09/30/2024 1:38 PM [facility] MCHC 32.0 32.0 - 37.0 g/dL LAB HEMETOLOGY METHOD 09/30/2024 1:38 PM [facility] RDW 14.1 11.0 - 15.0 % LAB HEMETOLOGY METHOD 09/30/2024 1:38 PM [facility] Platelets 279 130 - 400 K/mcL LAB HEMETOLOGY METHOD 09/30/2024 1:38 PM [facility] MPV 9.4 7.0 - 11.0 FL LAB HEMETOLOGY METHOD 09/30/2024 1:38 PM EST [facility] NRBC 0.0 <1.0 % LAB HEMETOLOGY METHOD 09/30/2024 1:38 PM EST [facility] NRBC Absolute 0.00 <0.10 K/mcL LAB HEMETOLOGY METHOD 09/30/2024 1:38 PM EST [facility] Blood Venous blood specimen / Unknown Venipuncture / Unknown 09/30/2024 7:07 AM EST 09/30/2024 1:00 PM EST Angelo Kasper MD LAB BLOOD ORDERABLES Performing Organization Address City/[facility]/ZIP Co de Phone Number [facility] [address] [place] [address], * Magnesium (09/29/2024 7:35 AM EST) Pathologist [facility] Magnesium 2.1 1.9 - 2.6 mg/dL LAB CHEMISTRY METHOD 09/29/2024 11:09 AM EST [facility] Blood Venous blood specimen / Unknown Venipuncture / Unknown 09/29/2024 7:35 AM EST 09/29/2024 10:30 AM EST Angelo Kasper MD LAB BLOOD ORDERABLES Performing Organization Address City/[facility]/ZIP Co de Phone Number [facility] [address] [place] [address], [place] [phone] * (ABNORMAL) Comprehensive metabolic panel (09/29/2024 7:35 AM EST) Sodium 138 133 - 145 mmol/L LAB CHEMISTRY METHOD 09/29/2024 11:09 AM [facility] Potassium 4.8 3.5 - 5.5 mmol/L LAB CHEMISTRY METHOD 09/29/2024 11:09 AM EST [facility] Chloride 107 96 - 110 mmol/L LAB CHEMISTRY METHOD 09/29/2024 11:09 AM [facility] CO2 24 21 - 32 mmol/L LAB CHEMISTRY METHOD 09/29/2024 11:09 AM [facility] Anion Gap 7 3 - 11 LAB CHEMISTRY METHOD 09/29/2024 11:09 AM [facility] Glucose 75 70 - 100 mg/dL LAB CHEMISTRY METHOD 09/29/2024 11:09 AM [facility] BUN 16 5 - 25 mg/dL LAB CHEMISTRY METHOD 09/29/2024 11:09 AM [facility] Creatinine 0.79 0.50 - 1.10 mg/dL LAB CHEMISTRY METHOD 09/29/2024 11:09 AM [facility] eGFR 73 >=60 mL/min/1. 73m2 LAB CHEMISTRY METHOD 09/29/2024 11:09 AM [facility] Comment:Calculation based on the??Chronic Kidney Disease Epidemiology Collaboration (CKD-EPI) equation refit??without adjustment for race. BUN/Creatinine Ratio 20.3 LAB CHEMISTRY METHOD 09/29/2024 11:09 AM [facility] Calcium 9.3 8.5 - 10.5 mg/dL LAB CHEMISTRY METHOD 09/29/2024 11:09 AM [facility] AST (SGOT) 29 10 - 42 unit/L LAB CHEMISTRY METHOD 09/29/2024 11:09 AM [facility] ALT (SGPT) 33 10 - 60 unit/L LAB CHEMISTRY METHOD 09/29/2024 11:09 AM [facility] Alkaline Phosphatase 134(H) 42 - 121 unit/L LAB CHEMISTRY METHOD 09/29/2024 11:09 AM [facility] Total Protein 6.8 6.0 - 8.0 g/dL LAB CHEMISTRY METHOD 09/29/2024 11:09 AM [facility] Albumin 3.5 3.2 - 5.0 g/dL LAB CHEMISTRY METHOD 09/29/2024 11:09 AM EST [facility] Total Bilirubin 0.5 0.0 - 1.4 mg/dL LAB CHEMISTRY METHOD 09/29/2024 11:09 AM EST [facility] Blood Venous blood specimen / Unknown Venipuncture / Unknown 09/29/2024 7:35 AM EST 09/29/2024 10:30 AM EST Angelo Kasper MD LAB BLOOD ORDERABLES [facility] [address] [place] [address], from Last 3 Months
--- OUTSIDE RECORDS SUMMARY | 2024-12-09 13:04 | XMS_ITS | Encounter Summary ---
Author Organization [facility] Address [address] [place] [address] Care Team Providers Care Chief Yeoman Name Role Phone Unavailable Primary Care Provider Unavailabl e Encounter Details Date Type Department Care Team (Late st Contact Info) Description 10/03/2024 Lab Requisition [facility] Lab [address] [place] [address] Angelo Kasper MD [address] [place] [id number] Encounter for other general examination Social History [...] AM EST) WBC 4.2(L) 4.8 - 10.8 K/[facility] LAB HEMETOLOGY METHOD 10/03/2024 11:02 AM EST [facility] RBC 4.00 3.80 - 4.80 M/mcL LAB HEMETOLOGY METHOD 10/03/2024 11:02 AM EST [facility] Hemoglobin 12.0 11.5 - 16.0 g/dL LAB HEMETOLOGY METHOD 10/03/2024 11:02 AM [facility] Hematocrit 37.5 35.0 - 47.0 % LAB HEMETOLOGY METHOD 10/03/2024 11:02 AM [facility] MCV 94.5 79.0 - 98.0 FL LAB HEMETOLOGY METHOD 10/03/2024 11:02 AM [facility] MCH 30.2 27.0 - 32.0 pcg LAB HEMETOLOGY METHOD 10/03/2024 11:02 AM [facility] MCHC 32.0 32.0 - 37.0 g/dL LAB HEMETOLOGY METHOD 10/03/2024 11:02 AM [facility] RDW 13.8 11.0 - 15.0 % LAB HEMETOLOGY METHOD 10/03/2024 11:02 AM [facility] Platelets 224 130 - 400 K/mcL LAB HEMETOLOGY METHOD 10/03/2024 11:02 AM [facility] MPV 9.6 7.0 - 11.0 FL LAB HEMETOLOGY METHOD 10/03/2024 11:02 AM [facility] NRBC 0.0 <1.0 % LAB HEMETOLOGY METHOD 10/03/2024 11:02 AM [facility] NRBC Absolute 0.00 <0.10 K/mcL LAB HEMETOLOGY METHOD 10/03/2024 11:02 AM [facility] Neutrophils Relative 57.4 % LAB HEMETOLOGY METHOD 10/03/2024 11:02 AM [facility] Lymphocytes Relative 22.8 % LAB HEMETOLOGY METHOD 10/03/2024 11:02 AM [facility] Monocytes Relative 13.5 % LAB HEMETOLOGY METHOD 10/03/2024 11:02 AM [facility] Eosinophils Relative 3.1 % LAB HEMETOLOGY METHOD 10/03/2024 11:02 AM [facility] Basophils Relative 1.0 % LAB HEMETOLOGY METHOD 10/03/2024 11:02 AM [facility] Immature Granulocytes Relative 2.2 % LAB HEMETOLOGY METHOD 10/03/2024 11:02 AM [facility] Neutrophils Absolute 2.39 1.50 - 7.00 K/mcL LAB HEMETOLOGY METHOD 10/03/2024 11:02 AM [facility] Lymphocytes Absolute 0.95(L) 1.00 - 5.00 K/mcL LAB HEMETOLOGY METHOD 10/03/2024 11:02 AM [facility] Monocytes Absolute 0.56 0.20 - 1.00 K/mcL LAB HEMETOLOGY METHOD 10/03/2024 11:02 AM [facility] Eosinophils Absolute 0.13 0.00 - 0.50 K/mcL LAB HEMETOLOGY METHOD 10/03/2024 11:02 AM [facility] Basophils Absolute 0.04 0.00 - 0.20 K/mcL LAB HEMETOLOGY METHOD 10/03/2024 11:02 AM [facility] Immature Granulocytes Absolute 0.09(H) 0.00 - 0.03 K/mcL LAB HEMETOLOGY METHOD 10/03/2024 11:02 AM [facility] Blood Venous blood specimen / Unknown Venipuncture / Unknown 10/03/2024 6:25 AM EST 10/03/2024 9:48 AM EST Angelo Kasper MD LAB BLOOD ORDERABLES [facility] [address] [place] [address], * (ABNORMAL) Basic metabolic panel (10/03/2024 6:25 AM EST) Sodium 128(L) 133 - 145 mmol/L LAB CHEMISTRY METHOD 10/03/2024 11:21 AM [facility] Potassium 4.4 3.5 - 5.5 mmol/L LAB CHEMISTRY METHOD 10/03/2024 11:21 AM [facility] Chloride 94(L) 96 - 110 mmol/L LAB CHEMISTRY METHOD 10/03/2024 11:21 AM [facility] CO2 28 21 - 32 mmol/L LAB CHEMISTRY METHOD 10/03/2024 11:21 AM [facility] Anion Gap 6 3 - 11 LAB CHEMISTRY METHOD 10/03/2024 11:21 AM [facility] Glucose 66(L) 70 - 100 mg/dL LAB CHEMISTRY METHOD 10/03/2024 11:21 AM [facility] BUN 13 5 - 25 mg/dL LAB CHEMISTRY METHOD 10/03/2024 11:21 AM [facility] Creatinine 0.67 0.50 - 1.10 mg/dL LAB CHEMISTRY METHOD 10/03/2024 11:21 AM [facility] eGFR 85 >=60 mL/min/1. 73m2 LAB CHEMISTRY METHOD 10/03/2024 11:21 AM [facility] Comment:Calculation based on the??Chronic Kidney Disease Epidemiology Collaboration (CKD-EPI) equation refit??without adjustment for race. BUN/Creatinine Ratio 19.4 LAB CHEMISTRY METHOD 10/03/2024 11:21 AM [facility] Calcium 8.9 8.5 - 10.5 mg/dL LAB CHEMISTRY METHOD 10/03/2024 11:21 AM [facility] Blood Venous blood specimen / Unknown Venipuncture / Unknown 10/03/2024 6:25 AM EST 10/03/2024 9:48 AM EST Angelo Kasper MD [facility]LOOD [facility]ABLES [facility] LAB [address] [place] [address], documented in this encounter Visit Diagnoses Diagnosis Encounter for other general examination documented in this encounter
--- OUTSIDE RECORDS SUMMARY | 2024-12-09 13:04 | XMS_ITS | Encounter Summary ---
Author Organization [employer] Address [address] [place] [address] Care Team Providers Care Glassine Machine Tender Name Role Phone Unavailable Primary Care Provider Unavailabl e Encounter Details Date Type Department Care Team (Late st Contact Info) Description 10/04/2024 Lab Requisition [facility] - Main Lab [address] [facility] [place] [address] Angelo Kasper MD [address] [place] [address] [id number] Encounter for other general examination Social History [...] and culture (10/04/2024 4:00 AM EST) Specific [place] Urine 1.018 1.003 - 1.030 LAB URINALYSIS - AUTOMATED METHOD 10/04/2024 9:55 AM [facility] pH, Urine 7.0 5.0 - 8.0 pH LAB URINALYSIS - AUTOMATED METHOD 10/04/2024 9:55 AM [facility] Leukocytes, Urine Negative Negative LAB URINALYSIS - AUTOMATED METHOD 10/04/2024 9:55 AM [facility] Nitrite, Urine Negative Negative LAB URINALYSIS - AUTOMATED METHOD 10/04/2024 9:55 AM [facility] Protein, Urine Negative <=Trace mg/dL LAB URINALYSIS - AUTOMATED METHOD 10/04/2024 9:55 AM [facility] Glucose, Urine Negative Negative mg/dL LAB URINALYSIS - AUTOMATED METHOD 10/04/2024 9:55 AM [facility] Ketones, Urine Trace(A) Negative mg/dL LAB URINALYSIS - AUTOMATED METHOD 10/04/2024 9:55 AM [facility] Urobilinogen, Urine 1.0 0.2 - 1.0 mg/dL LAB URINALYSIS - AUTOMATED METHOD 10/04/2024 9:55 AM [facility] Bilirubin, Urine Negative Negative LAB URINALYSIS - AUTOMATED METHOD 10/04/2024 9:55 AM [facility] Blood, Urine Negative Negative LAB URINALYSIS - AUTOMATED METHOD 10/04/2024 9:55 AM [facility] Urine Urine specimen obtained by clean catch procedure / Unknown Non-blood Collection / Unknown 10/04/2024 4:00 AM EST 10/04/2024 9:37 AM EST Angelo Kasper MD LAB URINE ORDERABLES [facility] [address] [place] [address], * Navarro urine culture tube (10/04/2024 4:00 AM EST) Extra Tube Hold for add-ons. 10/04/2024 11:01 AM EST [facility] Comment:Auto resulted. Urine Urine specimen obtained by clean catch procedure / Unknown Non-blood Collection / Unknown 10/04/2024 4:00 AM EST 10/04/2024 9:37 AM EST Angelo Kasper MD LAB URINE ORDERABLES Performing Organization Address City/[facility]/ZIP Co de Phone Number [facility] [address] [place] [address], [place] [phone] * Sodium, urine, random (10/04/2024 4:00 AM EST) Sodium, Ur 87 mmol/L LAB CHEMISTRY METHOD 10/04/2024 10:46 AM EST [facility] Urine Urine specimen obtained by clean catch procedure / Unknown Non-blood Collection / Unknown 10/04/2024 4:00 AM EST 10/04/2024 9:37 AM EST Angelo Kasper MD LAB URINE ORDERABLES Performing Organization Address [facility]/ZIP Co de Phone Number [facility] [address] [place] [address], [place] [phone] * Osmolality, urine (10/04/2024 4:00 AM EST) Osmolality, Urine 475 300 - 1,300 mOsm/kg LAB CHEMISTRY METHOD 10/04/2024 10:45 AM EST [facility] Urine Urine specimen obtained by clean catch procedure / Unknown Non-blood Collection / Unknown 10/04/2024 4:00 AM EST 10/04/2024 9:37 AM EST Angelo Kasper MD LAB URINE ORDERABLES Performing Organization Address City/[facility]/ZIP Co de Phone Number [facility] [address] [place] [address], documented in this encounter Visit Diagnoses Diagnosis Encounter for other general examination documented in this encounter
--- OUTSIDE RECORDS SUMMARY | 2024-12-09 13:04 | XMS_ITS | Encounter Summary ---
Author Organization [facility] Address [address] [place] [address] Care Team Providers Care Fashion Show Director Name Role Phone Unavailable Primary Care Provider Unavailabl e Encounter Details Date Type Department Care Team (Late st Contact Info) Description 09/30/2024 Lab Requisition [facility] - Main Lab [address] [place] [address] Angelo Kasper MD [address] [place] [address] Encounter for other general examination Social History [...] LAB HEMETOLOGY METHOD 09/30/2024 1:38 PM EST [facility] LAB RBC 4.10 3.80 - 4.80 M/[facility] LAB HEMETOLOGY METHOD 09/30/2024 1:38 PM EST [facility] LAB Hemoglobin 12.4 11.5 - 16.0 g/dL LAB HEMETOLOGY METHOD 09/30/2024 1:38 PM EST [facility] LAB Hematocrit 38.8 35.0 - 47.0 % LAB HEMETOLOGY METHOD 09/30/2024 1:38 PM EST [facility] LAB MCV 95.1 79.0 - 98.0 FL LAB HEMETOLOGY METHOD 09/30/2024 1:38 PM [facility] LAB MCH 30.4 27.0 - 32.0 pcg LAB HEMETOLOGY METHOD 09/30/2024 1:38 PM EST [facility] LAB MCHC 32.0 32.0 - 37.0 g/dL LAB HEMETOLOGY METHOD 09/30/2024 1:38 PM [facility] LAB RDW 14.1 11.0 - 15.0 % LAB HEMETOLOGY METHOD 09/30/2024 1:38 PM [facility] LAB Platelets 279 130 - 400 K/mcL LAB HEMETOLOGY METHOD 09/30/2024 1:38 PM EST [facility] LAB MPV 9.4 7.0 - 11.0 FL LAB HEMETOLOGY METHOD 09/30/2024 1:38 PM EST [facility] LAB NRBC 0.0 <1.0 % LAB HEMETOLOGY METHOD 09/30/2024 1:38 PM [facility] LAB NRBC Absolute 0.00 <0.10 K/mcL LAB HEMETOLOGY METHOD 09/30/2024 1:38 PM [facility] LAB Blood Venous blood specimen / Unknown Venipuncture / Unknown 09/30/2024 7:07 AM EST 09/30/2024 1:00 PM EST Angelo Kasper MD LAB BLOOD ORDERABLES [facility] LAB [address] [place] [address], * (ABNORMAL) Basic metabolic panel (09/30/2024 7:07 AM EST) Sodium 135 133 - 145 mmol/L LAB CHEMISTRY METHOD 09/30/2024 4:17 PM [facility] LAB Potassium 4.6 3.5 - 5.5 mmol/L LAB CHEMISTRY METHOD 09/30/2024 4:17 PM [facility] LAB Chloride 103 96 - 110 mmol/L LAB CHEMISTRY METHOD 09/30/2024 4:17 PM [facility] LAB CO2 25 21 - 32 mmol/L LAB CHEMISTRY METHOD 09/30/2024 4:17 PM [facility] LAB Anion Gap 7 3 - 11 LAB CHEMISTRY METHOD 09/30/2024 4:17 PM [facility] LAB Glucose 60(L) 70 - 100 mg/dL LAB CHEMISTRY METHOD 09/30/2024 4:17 PM [facility] LAB BUN 20 5 - 25 mg/dL LAB CHEMISTRY METHOD 09/30/2024 4:17 PM [facility] LAB Creatinine 0.82 0.50 - 1.10 mg/dL LAB CHEMISTRY METHOD 09/30/2024 4:17 PM [facility] LAB eGFR 70 >=60 mL/min/1. 73m2 LAB CHEMISTRY METHOD 09/30/2024 4:17 PM [facility] LAB Comment:Calculation based on the??Chronic Kidney Disease Epidemiology Collaboration (CKD-EPI) equation refit??without adjustment for race. BUN/Creatinine Ratio 24.4 LAB CHEMISTRY METHOD 09/30/2024 4:17 PM [facility] LAB Calcium 9.8 8.5 - 10.5 mg/dL LAB CHEMISTRY METHOD 09/30/2024 4:17 PM [facility] LAB Blood Venous blood specimen / Unknown Venipuncture / Unknown 09/30/2024 7:07 AM EST 09/30/2024 1:00 PM EST Angelo Kasper MD LAB BLOOD ORDERABLES [facility] LAB [address] [place] [address], documented in this encounter Visit Diagnoses Diagnosis Encounter for other general examination documented in this encounter
== END 2024-12-09 12:13 | disposition home or self-care (01) ==
PROVIDERS: PCP Internal Medicine; Visit Provider Internal Medicine
DX: S32.010A Wedge compression fracture of first lumbar vertebra, initial encounter for closed fracture (principal); I10 Essential (primary) hypertension; E78.00 Pure hypercholesterolemia, unspecified; K21.9 Gastro-esophageal reflux disease without esophagitis; J45.20 Mild intermittent asthma, uncomplicated; M81.0 Age-related osteoporosis without current pathological fracture

== ENCOUNTER → 2024-12-09 11:43 | Outpatient (BNVA) | payer MEDICARE, OTHER, SELFPAY | PROVIDERS: PCP Internal Medicine; Visit Provider Internal Medicine | DX: S32.010D Wedge compression fracture of first lumbar vertebra, subsequent encounter for fracture with routine healing (principal); I10 Essential (primary) hypertension; E78.00 Pure hypercholesterolemia, unspecified; K21.9 Gastro-esophageal reflux disease without esophagitis; J45.20 Mild intermittent asthma, uncomplicated; M81.0 Age-related osteoporosis without current pathological fracture | CPT/HCPCS: 99212 ==

== ENCOUNTER 2024-12-10 06:16 | Outpatient (REF) | payer MEDICARE, OTHER, SELFPAY ==
--- NOTE | ~2024-12-10 | FL_ITS ---
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 TECHNIQUE: Fluoroscopy time: 0.3 minutes. Cumulative Dose: 3.12 mGy. DAP: 0.0470 mGym2 Images: 2. FINDINGS: Images demonstrate needles and contrast in the regions of the bilateral sacroiliac joints. FL/FL guidance in treatment room IMPRESSION: Fluoroscopy during procedure. Please see procedure report for additional information. Electronically signed by: Montana Beard MD 12/12/2024 08:49 AM [facility]
--- OUTSIDE RECORDS SUMMARY | 2024-12-10 06:17 | XMS_ITS | Clinical Summary ---
Author Organization [facility] Address [address] [place] [address] Care Team Providers Care Yarder Operator Name Role Phone Unavailable Primary Care [...]
--- OUTSIDE RECORDS SUMMARY | 2024-12-10 06:18 | XMS_ITS | Encounter Summary ---
Author Organization [facility] Address [address] [place] [address] Care Team Providers Care Carton Making Machinist Name Role Phone Unavailable Primary Care Provider Unavailabl e Encounter Details Date Type Department Care Team (Late st Contact Info) Description 10/09/2024 Lab Requisition [facility] - Main Lab [address] [facility] [address] Angelo Kasper MD [address] [place] [id number] Encounter for other general examination Social History [...] mmol/L LAB CHEMISTRY METHOD 10/09/2024 12:04 PM [facility] LAB Potassium 4.1 3.5 - 5.5 mmol/L LAB CHEMISTRY METHOD 10/09/2024 12:04 PM [facility] LAB Chloride 100 96 - 110 mmol/L LAB CHEMISTRY METHOD 10/09/2024 12:04 PM [facility] LAB CO2 26 21 - 32 mmol/L LAB CHEMISTRY METHOD 10/09/2024 12:04 PM [facility] LAB Anion Gap 6 3 - 11 LAB CHEMISTRY METHOD 10/09/2024 12:04 PM [facility] LAB Glucose 62(L) 70 - 100 mg/dL LAB CHEMISTRY METHOD 10/09/2024 12:04 PM [facility] LAB BUN 12 5 - 25 mg/dL LAB CHEMISTRY METHOD 10/09/2024 12:04 PM [facility] LAB Creatinine 0.71 0.50 - 1.10 mg/dL LAB CHEMISTRY METHOD 10/09/2024 12:04 PM [facility] LAB eGFR 83 >=60 mL/min/1. 73m2 LAB CHEMISTRY METHOD 10/09/2024 12:04 PM [facility] LAB Comment:Calculation based on the??Chronic Kidney Disease Epidemiology Collaboration (CKD-EPI) equation refit??without adjustment for race. BUN/Creatinine Ratio 16.9 LAB CHEMISTRY METHOD 10/09/2024 12:04 PM [facility] LAB Calcium 8.8 8.5 - 10.5 mg/dL LAB CHEMISTRY METHOD 10/09/2024 12:04 PM [facility] LAB Blood Venous blood specimen / Unknown Venipuncture / Unknown 10/09/2024 7:03 AM EST 10/09/2024 10:19 AM EST Angelo Kasper MD LAB BLOOD ORDERABLES [facility] LAB [address] [place] [address], documented in this encounter Visit Diagnoses Diagnosis Encounter for other general examination documented in this encounter
--- OUTSIDE RECORDS SUMMARY | 2024-12-10 06:18 | XMS_ITS | Clinical Summary ---
Author Organization [address] Address [address] [place] [address] Phone Care Team Providers Care Steam Pressure Chamber Operator Name Role Phone Unavailable Primary Care Provider Unavailabl e Encounters Date Type Department Care Team Description 10/11/2024 Lab Requisition [facility] Lab [address] [place] [phone] Angelo Kasper MD Encounter for other general examination 10/09/2024 Lab Requisition [facility] Lab [address] [place] [address] Angelo Kasper MD Encounter for other general examination 10/07/2024 Lab Requisition [facility] Lab [address] [place] [address] Angelo Kasper MD Encounter for other general examination 10/06/2024 Lab Requisition [facility] Lab [address] [place] [address] Angelo Kasper MD Encounter for other general examination 10/05/2024 Lab Requisition [facility] Lab [address] [place] [address] Angelo Kasper MD Encounter for other general examination 10/04/2024 Lab Requisition [facility] Lab [address] [place] [address] Angelo Kasper MD Encounter for other general examination 10/04/2024 Lab Requisition [facility] Lab [address] [place] [address] Angelo Kasper MD Encounter for other general examination 10/03/2024 Lab Requisition [facility] - Main Lab [address] [place] [phone] Angelo Kasper MD Encounter for other general examination 09/30/2024 Lab Requisition [facility] Lab [address] [place] [phone] Angelo Kasper MD Encounter for other general examination 09/29/2024 Lab Requisition [facility] Lab [address] [place] [phone] Angelo Kasper MD Encounter for other general [...] mmol/L LAB CHEMISTRY METHOD 10/11/2024 1:13 PM [facility] LAB Potassium 4.0 3.5 - 5.5 mmol/L LAB CHEMISTRY METHOD 10/11/2024 1:13 PM [facility] LAB Chloride 102 96 - 110 mmol/L LAB CHEMISTRY METHOD 10/11/2024 1:13 PM [facility] LAB CO2 23 21 - 32 mmol/L LAB CHEMISTRY METHOD 10/11/2024 1:13 PM [facility] LAB Anion Gap 9 3 - 11 LAB CHEMISTRY METHOD 10/11/2024 1:13 PM [facility] LAB Glucose 80 70 - 100 mg/dL LAB CHEMISTRY METHOD 10/11/2024 1:13 PM [facility] LAB BUN 25 5 - 25 mg/dL LAB CHEMISTRY METHOD 10/11/2024 1:13 PM [facility] LAB Creatinine 0.99 0.50 - 1.10 mg/dL LAB CHEMISTRY METHOD 10/11/2024 1:13 PM EST [facility] LAB eGFR 56(L) >=60 mL/min/1. 73m2 LAB CHEMISTRY METHOD 10/11/2024 1:13 PM EST [facility] LAB Comment:Calculation based on the??Chronic Kidney Disease Epidemiology Collaboration (CKD-EPI) equation refit??without adjustment for race. BUN/Creatinine Ratio 25.3 LAB CHEMISTRY METHOD 10/11/2024 1:13 PM [facility] LAB Calcium 8.7 8.5 - 10.5 mg/dL LAB CHEMISTRY METHOD 10/11/2024 1:13 PM [facility] LAB Blood Venous blood specimen / Unknown Venipuncture / Unknown 10/11/2024 7:25 AM EST 10/11/2024 11:51 AM EST Angelo Kasper MD LAB BLOOD ORDERABLES [facility] LAB [address] [place] [address], * Thyroid stimulating hormone (10/06/2024 5:48 AM EST) TSH 2.14 0.40 - 4.00 mcIU/mL LAB CHEMISTRY METHOD 10/06/2024 8:28 AM EST [facility] Blood Venous blood specimen / Unknown Venipuncture / Unknown 10/06/2024 5:48 AM EST 10/06/2024 6:48 AM EST Angelo Kasper MD LAB BLOOD ORDERABLES [facility] [address] [place] [address], [place] [phone] * Cortisol (10/06/2024 5:48 AM EST) Cortisol 11.8 mcg/dL LAB CHEMISTRY METHOD 10/06/2024 9:33 AM EST [facility] Blood Venous blood specimen / Unknown Venipuncture / Unknown 10/06/2024 5:48 AM EST 10/06/2024 6:48 AM EST Narrative [facility] - 10/06/2024 9:33 AM EST CORTISOL REFERENCE RANGE ?? 8 AM SPEC: ??5.0-23.0 mcg/dL ?? 4 PM SPEC: ??3.0-16.0 mcg/dL ?? 8 PM SPEC: ??<5.0 mcg/dL Angelo Kasper MD LAB BLOOD ORDERABLES Performing Organization Address [facility]/ZIP Co de Phone Number [facility] [address] [place] [address], [place] [phone] * (ABNORMAL) Osmolality (10/04/2024 5:56 AM EST) [facility] Osmolality Grisel 265(L) 280 - 300 mOsm/kg LAB CHEMISTRY METHOD 10/04/2024 10:45 AM EST [facility] Blood Venous blood specimen / Unknown Venipuncture / Unknown 10/04/2024 5:56 AM EST 10/04/2024 9:06 AM EST Angelo Kasper MD LAB BLOOD ORDERABLES Performing Organization Address [facility]/ZIP Co de Phone Number [facility] [address] [place] [address], [place] [phone] * (ABNORMAL) Urinalysis with reflex microscopic and culture (10/04/2024 4:00 AM EST) [facility] Specific [place] Urine 1.018 1.003 - 1.030 LAB URINALYSIS - AUTOMATED METHOD 10/04/2024 9:55 AM EST [facility] pH, Urine 7.0 5.0 - 8.0 pH LAB URINALYSIS - AUTOMATED METHOD 10/04/2024 9:55 AM [facility] Leukocytes, Urine Negative Negative LAB URINALYSIS - AUTOMATED METHOD 10/04/2024 9:55 AM [facility] Nitrite, Urine Negative Negative LAB URINALYSIS - AUTOMATED METHOD 10/04/2024 9:55 AM [facility] Protein, Urine Negative <=Trace mg/dL LAB URINALYSIS - AUTOMATED METHOD 10/04/2024 9:55 AM [facility] Glucose, Urine Negative Negative mg/dL LAB URINALYSIS - AUTOMATED METHOD 10/04/2024 9:55 AM [facility] Ketones, Urine Trace(A) Negative mg/dL LAB URINALYSIS - AUTOMATED METHOD 10/04/2024 9:55 AM [facility] LAB Urobilinogen, Urine 1.0 0.2 - 1.0 mg/dL LAB URINALYSIS - AUTOMATED METHOD 10/04/2024 9:55 AM [facility] Bilirubin, Urine Negative Negative LAB URINALYSIS - AUTOMATED METHOD 10/04/2024 9:55 AM [facility] Blood, Urine Negative Negative LAB URINALYSIS - AUTOMATED METHOD 10/04/2024 9:55 AM [facility] Urine Urine specimen obtained by clean catch procedure / Unknown Non-blood Collection / Unknown 10/04/2024 4:00 AM EST 10/04/2024 9:37 AM EST Angelo Kasper MD LAB URINE ORDERABLES [facility] [address] [place] [address], * Navarro urine culture tube (10/04/2024 4:00 AM EST) Extra Tube Hold for add-ons. 10/04/2024 11:01 AM [facility] LAB Comment:Auto resulted. Urine Urine specimen obtained by clean catch procedure / Unknown Non-blood Collection / Unknown 10/04/2024 4:00 AM EST 10/04/2024 9:37 AM EST Angelo Kasper MD LAB URINE ORDERABLES Performing Organization Address [facility] Co de Phone Number [facility] [address] [place] [address], [place] [phone] * Sodium, urine, random (10/04/2024 4:00 AM EST) Sodium, Ur 87 mmol/L LAB CHEMISTRY METHOD 10/04/2024 10:46 AM EST [facility] Urine Urine specimen obtained by clean catch procedure / Unknown Non-blood Collection / Unknown 10/04/2024 4:00 AM EST 10/04/2024 9:37 AM EST Angelo Kasper MD LAB URINE ORDERABLES Performing Organization Address [facility] de Phone Number [facility] [address] [place] [address], [place] [phone] * Osmolality, urine (10/04/2024 4:00 AM EST) Osmolality, Urine 475 300 - 1,300 mOsm/kg LAB CHEMISTRY METHOD 10/04/2024 10:45 AM EST [facility] Urine Urine specimen obtained by clean catch procedure / Unknown Non-blood Collection / Unknown 10/04/2024 4:00 AM EST 10/04/2024 9:37 AM EST Angelo Kasper MD LAB URINE ORDERABLES Performing Organization Address [facility] Co de Phone Number [facility] [address] [place] [address], [place] [phone] * (ABNORMAL) CBC auto differential (10/03/2024 6:25 AM EST) Only the most recent of2 resultswithin the time period is included. [facility] WBC 4.2(L) 4.8 - 10.8 K/mcL LAB HEMETOLOGY METHOD 10/03/2024 11:02 AM [facility] RBC 4.00 3.80 - 4.80 M/mcL LAB HEMETOLOGY METHOD 10/03/2024 11:02 AM [facility] Hemoglobin 12.0 11.5 [...] BLOOD ORDERABLES [facility] [address] [place] [address], * (ABNORMAL) Complete blood count (09/30/2024 7:07 AM EST) WBC 11.5(H) 4.8 - 10.8 K/mcL LAB HEMETOLOGY METHOD 09/30/2024 1:38 PM [facility] RBC 4.10 3.80 - 4.80 M/mcL LAB HEMETOLOGY METHOD 09/30/2024 1:38 PM [facility] Hemoglobin 12.4 11.5 - 16.0 g/dL LAB HEMETOLOGY METHOD 09/30/2024 1:38 PM [facility] LAB Hematocrit 38.8 35.0 - 47.0 % LAB HEMETOLOGY METHOD 09/30/2024 1:38 PM [facility] LAB MCV 95.1 79.0 - 98.0 FL LAB HEMETOLOGY METHOD 09/30/2024 1:38 PM [facility] LAB MCH 30.4 27.0 - 32.0 pcg LAB HEMETOLOGY METHOD 09/30/2024 1:38 PM [facility] LAB MCHC 32.0 32.0 - 37.0 g/dL LAB HEMETOLOGY METHOD 09/30/2024 1:38 PM [facility] LAB RDW 14.1 11.0 - 15.0 % LAB HEMETOLOGY METHOD 09/30/2024 1:38 PM [facility] LAB Platelets 279 130 - 400 K/mcL LAB HEMETOLOGY METHOD 09/30/2024 1:38 PM [facility] LAB MPV 9.4 7.0 - 11.0 FL LAB HEMETOLOGY METHOD 09/30/2024 1:38 PM EST [facility] NRBC 0.0 <1.0 % LAB HEMETOLOGY METHOD 09/30/2024 1:38 PM EST [facility] NRBC Absolute 0.00 <0.10 K/mcL LAB HEMETOLOGY METHOD 09/30/2024 1:38 PM EST [facility] Blood Venous blood specimen / Unknown Venipuncture / Unknown 09/30/2024 7:07 AM EST 09/30/2024 1:00 PM EST Angelo Kasper MD LAB BLOOD ORDERABLES Performing Organization Address City/[facility]/ZIP Co de Phone Number [facility] [address] [place] [address], * Magnesium (09/29/2024 7:35 AM EST) Pathologist [facility] Magnesium 2.1 1.9 - 2.6 mg/dL LAB CHEMISTRY METHOD 09/29/2024 11:09 AM EST [facility] Blood Venous blood specimen / Unknown Venipuncture / Unknown 09/29/2024 7:35 AM EST 09/29/2024 10:30 AM EST Angelo Kasper MD LAB BLOOD ORDERABLES Performing Organization Address City/[facility]/ZIP Co de Phone Number [facility] [address] [place] [address], [place] [phone] * (ABNORMAL) Comprehensive metabolic panel (09/29/2024 7:35 AM EST) Sodium 138 133 - 145 mmol/L LAB CHEMISTRY METHOD 09/29/2024 11:09 AM [facility] Potassium 4.8 3.5 - 5.5 mmol/L LAB CHEMISTRY METHOD 09/29/2024 11:09 AM EST [facility] Chloride 107 96 - 110 mmol/L LAB CHEMISTRY METHOD 09/29/2024 11:09 AM [facility] CO2 24 21 - 32 mmol/L LAB CHEMISTRY METHOD 09/29/2024 11:09 AM [facility] Anion Gap 7 3 - 11 LAB CHEMISTRY METHOD 09/29/2024 11:09 AM [facility] Glucose 75 70 - 100 mg/dL LAB CHEMISTRY METHOD 09/29/2024 11:09 AM [facility] BUN 16 5 - 25 mg/dL LAB CHEMISTRY METHOD 09/29/2024 11:09 AM [facility] Creatinine 0.79 0.50 - 1.10 mg/dL LAB CHEMISTRY METHOD 09/29/2024 11:09 AM [facility] LAB eGFR 73 >=60 mL/min/1. 73m2 LAB CHEMISTRY METHOD 09/29/2024 11:09 AM [facility] Comment:Calculation based on the??Chronic Kidney Disease Epidemiology Collaboration (CKD-EPI) equation refit??without adjustment for race. BUN/Creatinine Ratio 20.3 LAB CHEMISTRY METHOD 09/29/2024 11:09 AM [facility] Calcium 9.3 8.5 - 10.5 mg/dL LAB CHEMISTRY METHOD 09/29/2024 11:09 AM [facility] AST (SGOT) 29 10 - 42 unit/L LAB CHEMISTRY METHOD 09/29/2024 11:09 AM [facility] ALT (SGPT) 33 10 - 60 unit/L LAB CHEMISTRY METHOD 09/29/2024 11:09 AM [facility] Alkaline Phosphatase 134(H) 42 - 121 unit/L LAB CHEMISTRY METHOD 09/29/2024 11:09 AM [facility] Total Protein 6.8 6.0 - 8.0 g/dL LAB CHEMISTRY METHOD 09/29/2024 11:09 AM [facility] Albumin 3.5 3.2 - 5.0 g/dL LAB CHEMISTRY METHOD 09/29/2024 11:09 AM EST [facility] Total Bilirubin 0.5 0.0 - 1.4 mg/dL LAB CHEMISTRY METHOD 09/29/2024 11:09 AM EST [facility] Blood Venous blood specimen / Unknown Venipuncture / Unknown 09/29/2024 7:35 AM EST 09/29/2024 10:30 AM EST Angelo Kasper MD LAB BLOOD ORDERABLES [facility] [address] [place] [address], from Last 3 Months
--- OUTSIDE RECORDS SUMMARY | 2024-12-10 06:18 | XMS_ITS | Encounter Summary ---
Author Organization [employer] Address [address] [place] [address] Care Team Providers Care Network Management Specialist Name Role Phone Unavailable Primary Care Provider Unavailabl e Encounter Details Date Type Department Care Team (Late st Contact Info) Description 10/03/2024 Lab Requisition [facility] - Main Lab [address] [place] [address] Angelo Kasper MD [address] [place] [phone] Encounter for other general examination Social History [...] AM EST) WBC 4.2(L) 4.8 - 10.8 K/[facility] LAB HEMETOLOGY METHOD 10/03/2024 11:02 AM EST [facility] LAB RBC 4.00 3.80 - 4.80 M/mcL LAB HEMETOLOGY METHOD 10/03/2024 11:02 AM EST [facility] LAB Hemoglobin 12.0 11.5 - 16.0 g/dL LAB HEMETOLOGY METHOD 10/03/2024 11:02 AM [facility] LAB Hematocrit 37.5 35.0 - 47.0 % LAB HEMETOLOGY METHOD 10/03/2024 11:02 AM [facility] LAB MCV 94.5 79.0 - 98.0 FL LAB HEMETOLOGY METHOD 10/03/2024 11:02 AM [facility] LAB MCH 30.2 27.0 - 32.0 pcg LAB HEMETOLOGY METHOD 10/03/2024 11:02 AM [facility] LAB MCHC 32.0 32.0 - 37.0 g/dL LAB HEMETOLOGY METHOD 10/03/2024 11:02 AM [facility] RDW 13.8 11.0 - 15.0 % LAB HEMETOLOGY METHOD 10/03/2024 11:02 AM [facility] LAB Platelets 224 130 - 400 K/mcL LAB HEMETOLOGY METHOD 10/03/2024 11:02 AM [facility] LAB MPV 9.6 7.0 - 11.0 FL LAB HEMETOLOGY METHOD 10/03/2024 11:02 AM [facility] LAB NRBC 0.0 <1.0 % LAB HEMETOLOGY METHOD 10/03/2024 11:02 AM [facility] NRBC Absolute 0.00 <0.10 K/mcL LAB HEMETOLOGY METHOD 10/03/2024 11:02 AM [facility] Neutrophils Relative 57.4 % LAB HEMETOLOGY METHOD 10/03/2024 11:02 AM [facility] Lymphocytes Relative 22.8 % LAB HEMETOLOGY METHOD 10/03/2024 11:02 AM [facility] Monocytes Relative 13.5 % LAB HEMETOLOGY METHOD 10/03/2024 11:02 AM [facility] Eosinophils Relative 3.1 % LAB HEMETOLOGY METHOD 10/03/2024 11:02 AM [facility] Basophils Relative 1.0 % LAB HEMETOLOGY METHOD 10/03/2024 11:02 AM [facility] Immature Granulocytes Relative 2.2 % LAB HEMETOLOGY METHOD 10/03/2024 11:02 AM [facility] Neutrophils Absolute 2.39 1.50 - 7.00 K/mcL LAB HEMETOLOGY METHOD 10/03/2024 11:02 AM [facility] Lymphocytes Absolute 0.95(L) 1.00 - 5.00 K/mcL LAB HEMETOLOGY METHOD 10/03/2024 11:02 AM [facility] Monocytes Absolute 0.56 0.20 - 1.00 K/mcL LAB HEMETOLOGY METHOD 10/03/2024 11:02 AM [facility] Eosinophils Absolute 0.13 0.00 - 0.50 K/mcL LAB HEMETOLOGY METHOD 10/03/2024 11:02 AM [facility] Basophils Absolute 0.04 0.00 - 0.20 K/mcL LAB HEMETOLOGY METHOD 10/03/2024 11:02 AM [facility] Immature Granulocytes Absolute 0.09(H) 0.00 - 0.03 K/mcL LAB HEMETOLOGY METHOD 10/03/2024 11:02 AM [facility] Blood Venous blood specimen / Unknown Venipuncture / Unknown 10/03/2024 6:25 AM EST 10/03/2024 9:48 AM EST Angelo Kasper MD LAB BLOOD ORDERABLES [facility] [address] [place] [address], * (ABNORMAL) Basic metabolic panel (10/03/2024 6:25 AM EST) Sodium 128(L) 133 - 145 mmol/L LAB CHEMISTRY METHOD 10/03/2024 11:21 AM [facility] Potassium 4.4 3.5 - 5.5 mmol/L LAB CHEMISTRY METHOD 10/03/2024 11:21 AM [facility] Chloride 94(L) 96 - 110 mmol/L LAB CHEMISTRY METHOD 10/03/2024 11:21 AM [facility] CO2 28 21 - 32 mmol/L LAB CHEMISTRY METHOD 10/03/2024 11:21 AM [facility] Anion Gap 6 3 - 11 LAB CHEMISTRY METHOD 10/03/2024 11:21 AM [facility] Glucose 66(L) 70 - 100 mg/dL LAB CHEMISTRY METHOD 10/03/2024 11:21 AM [facility] BUN 13 5 - 25 mg/dL LAB CHEMISTRY METHOD 10/03/2024 11:21 AM [facility] Creatinine 0.67 0.50 - 1.10 mg/dL LAB CHEMISTRY METHOD 10/03/2024 11:21 AM [facility] LAB eGFR 85 >=60 mL/min/1. 73m2 LAB CHEMISTRY METHOD 10/03/2024 11:21 AM [facility] LAB Comment:Calculation based on the??Chronic Kidney Disease Epidemiology Collaboration (CKD-EPI) equation refit??without adjustment for race. BUN/Creatinine Ratio 19.4 LAB CHEMISTRY METHOD 10/03/2024 11:21 AM [facility] Calcium 8.9 8.5 - 10.5 mg/dL LAB CHEMISTRY METHOD 10/03/2024 11:21 AM [facility] Blood Venous blood specimen / Unknown Venipuncture / Unknown 10/03/2024 6:25 AM EST 10/03/2024 9:48 AM EST Angelo Kasper MD LAB BLOOD ORDERABLES [facility] [address] [place] [address], documented in this encounter Visit Diagnoses Diagnosis Encounter for other general examination documented in this encounter
--- OUTSIDE RECORDS SUMMARY | 2024-12-10 06:18 | XMS_ITS | Encounter Summary ---
Author Organization [facility] Address [address] [place] [address] Care Team Providers Care Vice President For Instruction Name Role Phone Unavailable Primary Care Provider Unavailabl e Encounter Details Date Type Department Care Team (Late st Contact Info) Description 10/11/2024 Lab Requisition [facility] Lab [address] [facility] [place] [address] Angelo Kasper MD [address] [place] [phone] Encounter for other general examination Social History [...] mmol/L LAB CHEMISTRY METHOD 10/11/2024 1:13 PM [facility] Potassium 4.0 3.5 - 5.5 mmol/L LAB CHEMISTRY METHOD 10/11/2024 1:13 PM [facility] Chloride 102 96 - 110 mmol/L LAB CHEMISTRY METHOD 10/11/2024 1:13 PM [facility] CO2 23 21 - 32 mmol/L LAB CHEMISTRY METHOD 10/11/2024 1:13 PM [facility] Anion Gap 9 3 - 11 LAB CHEMISTRY METHOD 10/11/2024 1:13 PM EST [facility] Glucose 80 70 - 100 mg/dL LAB CHEMISTRY METHOD 10/11/2024 1:13 PM [facility] BUN 25 5 - 25 mg/dL LAB CHEMISTRY METHOD 10/11/2024 1:13 PM [facility] Creatinine 0.99 0.50 - 1.10 mg/dL LAB CHEMISTRY METHOD 10/11/2024 1:13 PM [facility] eGFR 56(L) >=60 mL/min/1. 73m2 LAB CHEMISTRY METHOD 10/11/2024 1:13 PM [facility] Comment:Calculation based on the??Chronic Kidney Disease Epidemiology Collaboration (CKD-EPI) equation refit??without adjustment for race. BUN/Creatinine Ratio 25.3 LAB CHEMISTRY METHOD 10/11/2024 1:13 PM [facility] Calcium 8.7 8.5 - 10.5 mg/dL LAB CHEMISTRY METHOD 10/11/2024 1:13 PM [facility] Blood Venous blood specimen / Unknown Venipuncture / Unknown 10/11/2024 7:25 AM EST 10/11/2024 11:51 AM EST Angelo Kasper MD LAB BLOOD ORDERABLES [facility] [address] [place] [address], documented in this encounter Visit Diagnoses Diagnosis Encounter for other general examination documented in this encounter
--- OUTSIDE RECORDS SUMMARY | 2024-12-10 06:18 | XMS_ITS | Encounter Summary ---
Author Organization [facility]eline [facility] Address [address] [place] [address] Care Team Providers Care Enrollment Representative Name Role Phone Unavailable Primary Care Provider Unavailabl e Encounter Details Date Type Department Care Team (Late st Contact Info) Description 09/30/2024 Lab Requisition [facility] - Main Lab [address] [place] [address] Angelo Kasper MD [address] [place] [address] Encounter for other general examination Social History [...] LAB HEMETOLOGY METHOD 09/30/2024 1:38 PM EST [facility] LAB RBC 4.10 3.80 - 4.80 M/[facility] LAB HEMETOLOGY METHOD 09/30/2024 1:38 PM EST [facility] LAB Hemoglobin 12.4 11.5 - 16.0 g/dL LAB HEMETOLOGY METHOD 09/30/2024 1:38 PM EST [facility] LAB Hematocrit 38.8 35.0 - 47.0 % LAB HEMETOLOGY METHOD 09/30/2024 1:38 PM EST [facility] LAB MCV 95.1 79.0 - 98.0 FL LAB HEMETOLOGY METHOD 09/30/2024 1:38 PM [facility] LAB MCH 30.4 27.0 - 32.0 pcg LAB HEMETOLOGY METHOD 09/30/2024 1:38 PM EST [facility] LAB MCHC 32.0 32.0 - 37.0 g/dL LAB HEMETOLOGY METHOD 09/30/2024 1:38 PM [facility] LAB RDW 14.1 11.0 - 15.0 % LAB HEMETOLOGY METHOD 09/30/2024 1:38 PM [facility] LAB Platelets 279 130 - 400 K/mcL LAB HEMETOLOGY METHOD 09/30/2024 1:38 PM EST [facility] LAB MPV 9.4 7.0 - 11.0 FL LAB HEMETOLOGY METHOD 09/30/2024 1:38 PM EST [facility] LAB NRBC 0.0 <1.0 % LAB HEMETOLOGY METHOD 09/30/2024 1:38 PM [facility] LAB NRBC Absolute 0.00 <0.10 K/mcL LAB HEMETOLOGY METHOD 09/30/2024 1:38 PM [facility] LAB Blood Venous blood specimen / Unknown Venipuncture / Unknown 09/30/2024 7:07 AM EST 09/30/2024 1:00 PM EST Angelo Kasper MD LAB BLOOD ORDERABLES [facility] LAB [address] [place] [address], * (ABNORMAL) Basic metabolic panel (09/30/2024 7:07 AM EST) Sodium 135 133 - 145 mmol/L LAB CHEMISTRY METHOD 09/30/2024 4:17 PM [facility] LAB Potassium 4.6 3.5 - 5.5 mmol/L LAB CHEMISTRY METHOD 09/30/2024 4:17 PM [facility] LAB Chloride 103 96 - 110 mmol/L LAB CHEMISTRY METHOD 09/30/2024 4:17 PM [facility] LAB CO2 25 21 - 32 mmol/L LAB CHEMISTRY METHOD 09/30/2024 4:17 PM [facility] LAB Anion Gap 7 3 - 11 LAB CHEMISTRY METHOD 09/30/2024 4:17 PM [facility] LAB Glucose 60(L) 70 - 100 mg/dL LAB CHEMISTRY METHOD 09/30/2024 4:17 PM [facility] LAB BUN 20 5 - 25 mg/dL LAB CHEMISTRY METHOD 09/30/2024 4:17 PM [facility] LAB Creatinine 0.82 0.50 - 1.10 mg/dL LAB CHEMISTRY METHOD 09/30/2024 4:17 PM [facility] LAB eGFR 70 >=60 mL/min/1. 73m2 LAB CHEMISTRY METHOD 09/30/2024 4:17 PM [facility] LAB Comment:Calculation based on the??Chronic Kidney Disease Epidemiology Collaboration (CKD-EPI) equation refit??without adjustment for race. BUN/Creatinine Ratio 24.4 LAB CHEMISTRY METHOD 09/30/2024 4:17 PM [facility] LAB Calcium 9.8 8.5 - 10.5 mg/dL LAB CHEMISTRY METHOD 09/30/2024 4:17 PM [facility] LAB Blood Venous blood specimen / Unknown Venipuncture / Unknown 09/30/2024 7:07 AM EST 09/30/2024 1:00 PM EST Angelo Kasper MD LAB BLOOD ORDERABLES [facility] LAB [address] [place] [address], documented in this encounter Visit Diagnoses Diagnosis Encounter for other general examination documented in this encounter
--- OUTSIDE RECORDS SUMMARY | 2024-12-10 06:18 | XMS_ITS | Encounter Summary ---
Author Organization [facility] Address [address] [place] [address] Care Team Providers Care Optometry Doctor Name Role Phone Unavailable Primary Care Provider Unavailabl e Encounter Details Date Type Department Care Team (Late st Contact Info) Description 10/04/2024 Lab Requisition [facility] - Main Lab [address] [place] [address] Angelo Kasper MD [address] [place] [address] Encounter for other general examination Social History [...] LAB CHEMISTRY METHOD 10/04/2024 10:45 AM EST [facility] LAB Blood Venous blood specimen / Unknown Venipuncture / Unknown 10/04/2024 5:56 AM EST 10/04/2024 9:06 AM EST Angelo Kasper MD LAB BLOOD ORDERABLES [facility] LAB [address] [place] [address], documented in this encounter Visit Diagnoses Diagnosis Encounter for other general examination documented in this encounter
--- OUTSIDE RECORDS SUMMARY | 2024-12-10 06:18 | XMS_ITS | Encounter Summary ---
Author Organization [facility] Address [address] [place] [address] Care Team Providers Care Concrete Paving Machine Operator Name Role Phone Unavailable Primary Care Provider Unavailabl e Encounter Details Date Type Department Care Team (Late st Contact Info) Description 10/06/2024 Lab Requisition [facility] - Main Lab [address] [place] [address] Angelo Kasper MD [address] [place] [address] Encounter for other general examination Social History [...] LAB CHEMISTRY METHOD 10/06/2024 9:33 AM EST [facility] Blood Venous blood specimen / Unknown Venipuncture / Unknown 10/06/2024 5:48 AM EST 10/06/2024 6:48 AM EST Narrative [facility] - 10/06/2024 9:33 AM EST [facility] ?? 8 AM SPEC: ??5.0-23.0 mcg/dL ?? 4 PM SPEC: ??3.0-16.0 mcg/dL ?? 8 PM SPEC: ??<5.0 mcg/dL Angelo Kasper MD LAB BLOOD ORDERABLES Performing Organization Address [facility]/ZIP Co de Phone Number [facility] LAB [address] [place] [address], * Thyroid stimulating hormone (10/06/2024 5:48 AM EST) [facility] TSH 2.14 0.40 - 4.00 mcIU/mL LAB CHEMISTRY METHOD 10/06/2024 8:28 AM EST [facility] Blood Venous blood specimen / Unknown Venipuncture / Unknown 10/06/2024 5:48 AM EST 10/06/2024 6:48 AM EST Angelo Kasper MD LAB BLOOD ORDERABLES Performing Organization Address [facility]/ZIP Co de Phone Number [facility] [address] [place] [address], * (ABNORMAL) Basic metabolic panel (10/06/2024 5:48 AM EST) [facility] Sodium 130(L) 133 - 145 mmol/L LAB CHEMISTRY METHOD 10/06/2024 7:23 AM [facility] Potassium 4.0 3.5 - 5.5 mmol/L LAB CHEMISTRY METHOD 10/06/2024 7:23 AM EST [facility] Chloride 98 96 - 110 mmol/L LAB CHEMISTRY METHOD 10/06/2024 7:23 AM EST [facility] CO2 26 21 - 32 mmol/L LAB CHEMISTRY METHOD 10/06/2024 7:23 AM [facility] Anion Gap 6 3 - 11 LAB CHEMISTRY METHOD 10/06/2024 7:23 AM [facility] Glucose 76 70 - 100 mg/dL LAB CHEMISTRY METHOD 10/06/2024 7:23 AM EST [facility] BUN 9 5 - 25 mg/dL LAB CHEMISTRY METHOD 10/06/2024 7:23 AM [facility] Creatinine 0.62 0.50 - 1.10 mg/dL LAB CHEMISTRY METHOD 10/06/2024 7:23 AM [facility] eGFR 87 >=60 mL/min/1. 73m2 LAB CHEMISTRY METHOD 10/06/2024 7:23 AM EST [facility] Comment:Calculation based on the??Chronic Kidney Disease Epidemiology Collaboration (CKD-EPI) equation refit??without adjustment for race. BUN/Creatinine Ratio 14.5 LAB CHEMISTRY METHOD 10/06/2024 7:23 AM [facility] Calcium 8.4(L) 8.5 - 10.5 mg/dL LAB CHEMISTRY METHOD 10/06/2024 7:23 AM EST [facility] Blood Venous blood specimen / Unknown Venipuncture / Unknown 10/06/2024 5:48 AM EST 10/06/2024 6:48 AM EST Angelo Kasper MD LAB BLOOD ORDERABLES [facility] [address] [place] [address], documented in this encounter Visit Diagnoses Diagnosis Encounter for other general examination documented in this encounter
--- OUTSIDE RECORDS SUMMARY | 2024-12-10 06:18 | XMS_ITS | Encounter Summary ---
Author Organization [facility] Address [address] [place] [address] Care Team Providers Care Superintendent Menagerie Name Role Phone Unavailable Primary Care Provider Unavailabl e Encounter Details Date Type Department Care Team (Late st Contact Info) Description 10/07/2024 Lab Requisition [facility] - Main Lab 299 [facility] [place] [address] Angelo Kasper MD [address] [place] [address] Encounter for other general examination Social History [...] LAB CHEMISTRY METHOD 10/07/2024 2:59 PM EST [facility] Potassium 4.2 3.5 - 5.5 mmol/L LAB CHEMISTRY METHOD 10/07/2024 2:59 PM EST [facility] Chloride 98 96 - 110 mmol/L LAB CHEMISTRY METHOD 10/07/2024 2:59 PM EST [facility] CO2 22 21 - 32 mmol/L LAB CHEMISTRY METHOD 10/07/2024 2:59 PM EST [facility] Anion Gap 10 3 - 11 LAB CHEMISTRY METHOD 10/07/2024 2:59 PM EST [facility] Glucose 63(L) 70 - 100 mg/dL LAB CHEMISTRY METHOD 10/07/2024 2:59 PM [facility] LAB BUN 9 5 - 25 mg/dL LAB CHEMISTRY METHOD 10/07/2024 2:59 PM [facility] LAB Creatinine 0.55 0.50 - 1.10 mg/dL LAB CHEMISTRY METHOD 10/07/2024 2:59 PM [facility] LAB eGFR 89 >=60 mL/min/1. 73m2 LAB CHEMISTRY METHOD 10/07/2024 2:59 PM [facility] LAB Comment:Calculation based on the??Chronic Kidney Disease Epidemiology Collaboration (CKD-EPI) equation refit??without adjustment for race. BUN/Creatinine Ratio 16.4 LAB CHEMISTRY METHOD 10/07/2024 2:59 PM [facility] LAB Calcium 8.3(L) 8.5 - 10.5 mg/dL LAB CHEMISTRY METHOD 10/07/2024 2:59 PM [facility] Blood Venous blood specimen / Unknown 10/07/2024 7:28 AM EST 10/07/2024 12:05 PM EST Angelo Kasper MD LAB BLOOD ORDERABLES [facility] [address] [place] [address], documented in this encounter Visit Diagnoses Diagnosis Encounter for other general examination documented in this encounter
--- OUTSIDE RECORDS SUMMARY | 2024-12-10 06:18 | XMS_ITS | Encounter Summary ---
Author Organization [employer] [facility] Address [address] [place] [address] Care Team Providers Care Precipitator Operator Name Role Phone Unavailable Primary Care Provider Unavailabl e Encounter Details Date Type Department Care Team (Late st Contact Info) Description 09/29/2024 Lab Requisition [facility] - Main Lab [address] [place] [address] Angelo Kasper MD [address] [place] [address] Encounter for other general examination Social History [...] AM EST) WBC 11.5(H) 4.8 - 10.8 K/[facility] LAB HEMETOLOGY METHOD 09/29/2024 11:08 AM EST [facility] RBC 4.10 3.80 - 4.80 M/[facility] LAB HEMETOLOGY METHOD 09/29/2024 11:08 AM [facility] LAB Hemoglobin 12.5 11.5 - 16.0 g/dL LAB HEMETOLOGY METHOD 09/29/2024 11:08 AM [facility] LAB Hematocrit 39.9 35.0 - 47.0 % LAB HEMETOLOGY METHOD 09/29/2024 11:08 AM [facility] LAB MCV 96.8 79.0 - 98.0 FL LAB HEMETOLOGY METHOD 09/29/2024 11:08 AM [facility] LAB MCH 30.3 27.0 - 32.0 pcg LAB HEMETOLOGY METHOD 09/29/2024 11:08 AM [facility] LAB MCHC 31.3(L) 32.0 - 37.0 g/dL LAB HEMETOLOGY METHOD 09/29/2024 11:08 AM [facility] LAB RDW 14.0 11.0 - 15.0 % LAB HEMETOLOGY METHOD 09/29/2024 11:08 AM [facility] LAB Platelets 293 130 - 400 K/[facility] LAB HEMETOLOGY METHOD 09/29/2024 11:08 AM [facility] LAB MPV 9.5 7.0 - 11.0 FL LAB HEMETOLOGY METHOD 09/29/2024 11:08 AM [facility] LAB NRBC 0.0 <1.0 % LAB HEMETOLOGY METHOD 09/29/2024 11:08 AM [facility] LAB NRBC Absolute 0.00 <0.10 K/[facility] LAB HEMETOLOGY METHOD 09/29/2024 11:08 AM [facility] LAB Neutrophils Relative 54.5 % LAB HEMETOLOGY METHOD 09/29/2024 11:08 AM [facility] Lymphocytes Relative 34.1 % LAB HEMETOLOGY METHOD 09/29/2024 11:08 AM [facility] Monocytes Relative 5.0 % LAB HEMETOLOGY METHOD 09/29/2024 11:08 AM [facility] Eosinophils Relative 4.3 % LAB HEMETOLOGY METHOD 09/29/2024 11:08 AM [facility] Basophils Relative 1.0 % LAB HEMETOLOGY METHOD 09/29/2024 11:08 AM [facility] Immature Granulocytes Relative 1.1 % LAB HEMETOLOGY METHOD 09/29/2024 11:08 AM [facility] LAB Neutrophils Absolute 6.25 1.50 - 7.00 K/mcL LAB HEMETOLOGY METHOD 09/29/2024 11:08 AM [facility] Lymphocytes Absolute 3.93 1.00 - 5.00 K/mcL LAB HEMETOLOGY METHOD 09/29/2024 11:08 AM [facility] Monocytes Absolute 0.58 0.20 - 1.00 K/mcL LAB HEMETOLOGY METHOD 09/29/2024 11:08 AM [facility] Eosinophils Absolute 0.50 0.00 - 0.50 K/mcL LAB HEMETOLOGY METHOD 09/29/2024 11:08 AM [facility] Basophils Absolute 0.12 0.00 - 0.20 K/mcL LAB HEMETOLOGY METHOD 09/29/2024 11:08 AM [facility] LAB Immature Granulocytes Absolute 0.13(H) 0.00 - 0.03 K/mcL LAB HEMETOLOGY METHOD 09/29/2024 11:08 AM [facility] LAB Blood Venous blood specimen / Unknown Venipuncture / Unknown 09/29/2024 7:35 AM EST 09/29/2024 10:30 AM EST Angelo Kasper MD LAB BLOOD ORDERABLES [facility] [address] [place] [address], * Magnesium (09/29/2024 7:35 AM EST) Magnesium 2.1 1.9 - 2.6 mg/dL LAB CHEMISTRY METHOD 09/29/2024 11:09 AM [facility] Blood Venous blood specimen / Unknown Venipuncture / Unknown 09/29/2024 7:35 AM EST 09/29/2024 10:30 AM EST Angelo Kasper MD LAB BLOOD ORDERABLES [facility] [address] [place] [address], * (ABNORMAL) Comprehensive metabolic panel (09/29/2024 7:35 AM EST) Sodium 138 133 - 145 mmol/L LAB CHEMISTRY METHOD 09/29/2024 11:09 AM [facility] Potassium 4.8 3.5 - 5.5 mmol/L LAB CHEMISTRY METHOD 09/29/2024 11:09 AM [facility] Chloride 107 96 - 110 mmol/L LAB CHEMISTRY METHOD 09/29/2024 11:09 AM [facility] CO2 24 21 - 32 mmol/L LAB CHEMISTRY METHOD 09/29/2024 11:09 AM [facility] Anion Gap 7 3 - 11 LAB CHEMISTRY METHOD 09/29/2024 11:09 AM [facility] Glucose 75 70 - 100 mg/dL LAB CHEMISTRY METHOD 09/29/2024 11:09 AM [facility] BUN 16 5 - 25 mg/dL LAB CHEMISTRY METHOD 09/29/2024 11:09 AM [facility] Creatinine 0.79 0.50 - 1.10 mg/dL LAB CHEMISTRY METHOD 09/29/2024 11:09 AM [facility] LAB eGFR 73 >=60 mL/min/1. 73m2 LAB CHEMISTRY METHOD 09/29/2024 11:09 AM [facility] Comment:Calculation based on the??Chronic Kidney Disease Epidemiology Collaboration (CKD-EPI) equation refit??without adjustment for race. BUN/Creatinine Ratio 20.3 LAB CHEMISTRY METHOD 09/29/2024 11:09 AM [facility] Calcium 9.3 8.5 - 10.5 mg/dL LAB CHEMISTRY METHOD 09/29/2024 11:09 AM [facility] AST (SGOT) 29 10 - 42 unit/L LAB CHEMISTRY METHOD 09/29/2024 11:09 AM [facility] ALT (SGPT) 33 10 - 60 unit/L LAB CHEMISTRY METHOD 09/29/2024 11:09 AM [facility] Alkaline Phosphatase 134(H) 42 - 121 unit/L LAB CHEMISTRY METHOD 09/29/2024 11:09 AM [facility] Total Protein 6.8 6.0 - 8.0 g/dL LAB CHEMISTRY METHOD 09/29/2024 11:09 AM [facility] Albumin 3.5 3.2 - 5.0 g/dL LAB CHEMISTRY METHOD 09/29/2024 11:09 AM [facility] Total Bilirubin 0.5 0.0 - 1.4 mg/dL LAB CHEMISTRY METHOD 09/29/2024 11:09 AM [facility] Blood Venous blood specimen / Unknown Venipuncture / Unknown 09/29/2024 7:35 AM EST 09/29/2024 10:30 AM EST Angelo Kasper MD LAB BLOOD ORDERABLES [facility] [address] [place] [address], documented in this encounter Visit Diagnoses Diagnosis Encounter for other general examination documented in this encounter
--- OUTSIDE RECORDS SUMMARY | 2024-12-10 06:18 | XMS_ITS | Encounter Summary ---
Author Organization [employer] Address [address] [place] [address] Care Team Providers Care Ecological Risk Assessor Name Role Phone Unavailable Primary Care Provider Unavailabl e Encounter Details Date Type Department Care Team (Late st Contact Info) Description 10/04/2024 Lab Requisition [facility] - Main Lab 299 [facility] [place] [address] Angelo Kasper MD [address] [place] [address] [phone] Encounter for other general examination Social History [...] and culture (10/04/2024 4:00 AM EST) Specific [place] Urine 1.018 1.003 - 1.030 LAB URINALYSIS - AUTOMATED METHOD 10/04/2024 9:55 AM [facility] pH, Urine 7.0 5.0 - [...] EST Angelo Kasper MD LAB URINE ORDERABLES [facility] [address] [place] [address], * [place] urine culture tube (10/04/2024 4:00 AM EST) Extra Tube Hold for add-ons. 10/04/2024 11:01 AM EST [facility] LAB Comment:Auto resulted. Urine Urine specimen obtained by clean catch procedure / Unknown Non-blood Collection / Unknown 10/04/2024 4:00 AM EST 10/04/2024 9:37 AM EST Angelo Kasper MD LAB URINE ORDERABLES Performing Organization Address City/[facility]/ZIP Co de Phone Number [facility] [address] [place] [address], [place] [phone] * Sodium, urine, random (10/04/2024 4:00 AM EST) Sodium, Ur 87 mmol/L LAB CHEMISTRY METHOD 10/04/2024 10:46 AM EST [facility] Urine Urine specimen obtained by clean catch procedure / Unknown Non-blood Collection / Unknown 10/04/2024 4:00 AM EST 10/04/2024 9:37 AM EST Angelo Kasper MD LAB URINE ORDERABLES Performing Organization Address [facility]/ZIP Co de Phone Number [facility] [address] [place] [address], [place] [phone] * Osmolality, urine (10/04/2024 4:00 AM EST) Osmolality, Urine 475 300 - 1,300 mOsm/kg LAB CHEMISTRY METHOD 10/04/2024 10:45 AM EST [facility] Urine Urine specimen obtained by clean catch procedure / Unknown Non-blood Collection / Unknown 10/04/2024 4:00 AM EST 10/04/2024 9:37 AM EST Angelo Kasper MD LAB URINE ORDERABLES Performing Organization Address City/[facility]/ZIP Co de Phone Number [facility] [address] [place] [address], documented in this encounter Visit Diagnoses Diagnosis Encounter for other general examination documented in this encounter
--- OUTSIDE RECORDS SUMMARY | 2024-12-10 06:18 | XMS_ITS | Encounter Summary ---
Author Organization [facility] Address [address] [place] [address] Care Team Providers Care Solo Truck Driver Name Role Phone Unavailable Primary Care Provider Unavailabl e Encounter Details Date Type Department Care Team (Late st Contact Info) Description 10/05/2024 Lab Requisition [facility] - Main Lab 299 [facility] [place] [address] Angelo Kasper MD [address] [place] [address] Encounter for other general examination Social History [...] LAB CHEMISTRY METHOD 10/05/2024 11:02 AM EST [facility] Potassium 4.1 3.5 - 5.5 mmol/L LAB CHEMISTRY METHOD 10/05/2024 11:02 AM EST [facility] Chloride 93(L) 96 - 110 mmol/L LAB CHEMISTRY METHOD 10/05/2024 11:02 AM [facility] CO2 27 21 - 32 mmol/L LAB CHEMISTRY METHOD 10/05/2024 11:02 AM [facility] Anion Gap 6 3 - 11 LAB CHEMISTRY METHOD 10/05/2024 11:02 AM [facility] Glucose 70 70 - 100 mg/dL LAB CHEMISTRY METHOD 10/05/2024 11:02 AM [facility] BUN 11 5 - 25 mg/dL LAB CHEMISTRY METHOD 10/05/2024 11:02 AM [facility] Creatinine 0.71 0.50 - 1.10 mg/dL LAB CHEMISTRY METHOD 10/05/2024 11:02 AM [facility] LAB eGFR 83 >=60 mL/min/1. 73m2 LAB CHEMISTRY METHOD 10/05/2024 11:02 AM [facility] LAB Comment:Calculation based on the??Chronic Kidney Disease Epidemiology Collaboration (CKD-EPI) equation refit??without adjustment for race. BUN/Creatinine Ratio 15.5 LAB CHEMISTRY METHOD 10/05/2024 11:02 AM [facility] Calcium 8.6 8.5 - 10.5 mg/dL LAB CHEMISTRY METHOD 10/05/2024 11:02 AM [facility] Blood Venous blood specimen / Unknown Venipuncture / Unknown 10/05/2024 6:03 AM EST 10/05/2024 9:38 AM EST Angelo Kasper MD LAB BLOOD ORDERABLES [facility] [address] [place] [address], documented in this encounter Visit Diagnoses Diagnosis Encounter for other general examination documented in this encounter
== END 2024-12-10 06:17 | disposition home or self-care (01) ==
LOC: CF 06:16
PROVIDERS: Visit Provider Anesthesiology
DX: M53.3 Sacrococcygeal disorders, not elsewhere classified (principal)
CPT/HCPCS: 27096; J2003; J2795; Q9967

== ENCOUNTER 2024-12-10 12:50 | Outpatient (AMB) | payer MEDICARE, OTHER, SELFPAY ==
[2024-12-10 12:55] VITALS: BP 136/78; PULSE 71; RESP 16; O2SAT 97
--- NOTE | 2024-12-10 12:55 | A.OFFVIS_ITS ---
Vital Signs 12/10/24 12:55 12/10/24 13:25 BP 136/78 146/88 H Blood Pressure Location Lt brachial Lt brachial Position Sitting Sitting Respiration 16 16 Pulse 71 71 Pulse Source Pulse Oximeter Pulse Oximeter Pulse Oximetry (%) 97 99 Oxygen Delivery Method Room Air Room Air Intake Visit Reasons: BILATERAL DIAGNOSTIC SIJ INJECTIONS Professor Of Literature Required: No Allergies alendronate sodium [From FOSAMAX] Allergy (Severe, Verified 12/10/24 12:56) ANAPHYLAXIS lisinopril [LISINOPRIL] Allergy (Severe, Verified 12/10/24 12:56) ANAPHYLAXIS, cough clarithromycin [CLARITHROMYCIN] Allergy (Intermediate, Verified 12/10/24 12:56) CONFUSION, sores on tongue, dry mouth simvastatin [SIMVASTATIN] Allergy (Mild, Verified 12/10/24 12:56) DRY THROAT, achy, confusion Medication List - Last Reconciled 12/10/24 by Anabella Gómez LPN acetaminophen (Tylenol Extra Strength) 500 mg PO Q6H PRN allopurinol 100 mg PO DAILY amlodipine 5 mg PO DAILY atorvastatin 40 mg PO DAILY bisacodyl 5 mg PO DAILY PRN clopidogrel (Plavix) 75 mg PO DAILY [CMF Bone Stimulator As directed] folic acid 1 mg PO DAILY gabapentin mg PO ibuprofen 800 mg PO Q8H PRN lactulose 20 grams (30 mL) PO QID PRN lidocaine 5% 1 patch topical DAILY meclizine 50 mg (2 x 25 mg) PO DAILY meloxicam mg PO DAILY methocarbamol 750 mg PO QID PRN methotrexate sodium 15 mg (6 x 2.5 mg) PO QWEEK metoprolol succinate ER 25 mg PO DAILY montelukast 10 mg PO BEDTIME multivitamin 1 tab PO DAILY omeprazole 20 mg PO DAILY@0630 pantoprazole mg PO DAILY prednisone mg PO ropinirole 3 mg PO DAILY@1800 tramadol 50 mg PO TID PRN vitamin B complex (B Complex-Vitamin B12 tablet) 1 tab PO DAILY PFSH Medical History Pre-op chest exam Pre-op examination Meniere disease Transient ischemic attack (TIA) Osteoarthritis of shoulders, bilateral Rheumatoid arthritis Osteoarthritis of carpometacarpal (CMC) joint of right thumb Overweight (BMI 25.0-29.9) High cholesterol Hypertension Thrush, oral Nondisplaced fracture of fifth metatarsal bone, left foot, subsequent encounter for fracture with nonunion Seropositive rheumatoid arthritis Fracture of 5th metatarsal Fracture of fifth metatarsal bone of right foot Polymyalgia rheumatica Anxiety and depression Osteoarthritis Lumbar degenerative disc disease Osteoporosis Gout Restless leg syndrome Hypergammaglobulinemia GERD (gastroesophageal reflux disease) Seizure disorder Hypertension Hypercholesterolemia Asthma Peripheral neuropathy Rheumatoid arthritis Surgical History Corneal transplant status History of arthroplasty of right hip History of total abdominal hysterectomy History of corneal transplant H/O left knee surgery History of open reduction and internal fixation (ORIF) procedure History of cholecystectomy History of appendectomy Family History Father CVD (cardiovascular disease) Mother No problems noted. Social History (Updated 11/07/24 @ 11:40 by FREDIS Machuca) Household Members: Significant Other Household Members Other:: parter Housing: House Do you presently have visiting nurse or other home services: No Alcohol intake: current Alcohol intake frequency: holidays/special occasions only Alcohol type: wine Comment: patient uses call light appropriately Patient Tobacco Use Status: Never used Tobacco e-Cigarette/Vaping Use: Never Used Second Hand Smoke Exposure: No Advance Directives Date on File: 07/11/23 service: No Current occupational status: retired Cognitive needs: Yes (walker) Hearing needs: Yes Vision needs: Yes Physical Exam Vital Signs: Last Vital Signs Pulse 71 12/10/24 13:25 Resp 16 12/10/24 13:25 BP 146/88 H 12/10/24 13:25 Pulse Ox 99 12/10/24 13:25 Oxygen Delivery Method Room Air 12/10/24 13:25 Assessment & Plan Assessment & Plan (1) Sacroiliac joint dysfunction of both sides: Code(s): M53.3 - Sacrococcygeal disorders, not elsewhere classified Category: Medical Plan Bilateral sacroiliac joint injection diagnostic. Informed consent was thoroughly explained to the patient before the procedure.? The patient came to the operating room.? He was positioned prone on operating table with a pillow under her abdomen.? Time-out was performed delineating correct site and side of the procedure, nature of the injection, name and date of of the patient. The lower back and upper buttocks of the patient was prepped with ChloraPrep and draped with sterile utility towels.? C-arm was brought over the operating field and picture of right sacroiliac joint was demonstrated on the screen. Tilting machine contralateral left 15 degrees from the midline the anterior portion of the silhouette of the joint was superimposed on posterior portion of the silhouette of the joint. The skin was anesthetized with mixture of ropivacaine 0.5% and lidocaine 2% one-to-one slightly medial to the silhouette of the sacroiliac joint. 22 gauge 3-1/2 inch spinal needle was inserted through the skin wheal and advanced to the sacroiliac joint. When tip of the needle entered the sacroiliac joint injection of the contrast performed delineating arthrogram. After that 4 cc of ropivacaine g was injected into the joint. Upon completion of the injection needle was removed and the procedure was repeated on the left side in the mirroring fashion. After the injection the needle was removed and sterile bandades were applied Patient tolerated the procedure well. Orders: Orders FL guidance in treatment room Today M53.3 - Sacrococcygeal disorders, not elsewhere classified Coding Level of Care Code Procedure Only Diagnoses Sacroiliac joint dysfunction of both sides M53.3
--- OUTSIDE RECORDS SUMMARY | 2024-12-10 13:13 | XMS_ITS | Encounter Summary ---
Author Organization [facility] Address [address] [place] [address] Care Team Providers Care General Machine Operator Name Role Phone Unavailable Primary Care Provider Unavailabl e Encounter Details Date Type Department Care Team (Late st Contact Info) Description 10/05/2024 Lab Requisition [facility] - Main Lab [address] [facility] [place] [address] Angelo Kasper MD [address] [place] [address] Encounter for other general examination Social History [...] LAB CHEMISTRY METHOD 10/05/2024 11:02 AM EST [facility] Potassium 4.1 3.5 - 5.5 mmol/L LAB CHEMISTRY METHOD 10/05/2024 11:02 AM EST [facility] Chloride 93(L) 96 - 110 mmol/L LAB CHEMISTRY METHOD 10/05/2024 11:02 AM [facility] CO2 27 21 - 32 mmol/L LAB CHEMISTRY METHOD 10/05/2024 11:02 AM [facility] Anion Gap 6 3 - 11 LAB CHEMISTRY METHOD 10/05/2024 11:02 AM [facility] Glucose 70 70 - 100 mg/dL LAB CHEMISTRY METHOD 10/05/2024 11:02 AM [facility] BUN 11 5 - 25 mg/dL LAB CHEMISTRY METHOD 10/05/2024 11:02 AM [facility] Creatinine 0.71 0.50 - 1.10 mg/dL LAB CHEMISTRY METHOD 10/05/2024 11:02 AM [facility] eGFR 83 >=60 mL/min/1. 73m2 LAB CHEMISTRY METHOD 10/05/2024 11:02 AM [facility] Comment:Calculation based on the??Chronic Kidney Disease Epidemiology Collaboration (CKD-EPI) equation refit??without adjustment for race. BUN/Creatinine Ratio 15.5 LAB CHEMISTRY METHOD 10/05/2024 11:02 AM [facility] Calcium 8.6 8.5 - 10.5 mg/dL LAB CHEMISTRY METHOD 10/05/2024 11:02 AM [facility] Blood Venous blood specimen / Unknown Venipuncture / Unknown 10/05/2024 6:03 AM EST 10/05/2024 9:38 AM EST Angelo Kasper MD LAB BLOOD ORDERABLES [facility] [address] [place] [address], documented in this encounter Visit Diagnoses Diagnosis Encounter for other general examination documented in this encounter
--- OUTSIDE RECORDS SUMMARY | 2024-12-10 13:13 | XMS_ITS | Clinical Summary ---
Author Organization [facility] Address [address] [place] [address] Care Team Providers Care Youth Liaison Officer Name Role Phone Unavailable Primary Care Provider [...]
--- OUTSIDE RECORDS SUMMARY | 2024-12-10 13:13 | XMS_ITS | Encounter Summary ---
Author Organization [facility] Address [address] [place] [address] Care Team Providers Care Tie Presser Name Role Phone Unavailable Primary Care Provider Unavailabl e Encounter Details Date Type Department Care Team (Late st Contact Info) Description 10/06/2024 Lab Requisition [facility] - Main Lab [address] [place] [address] Angelo Kasper MD [address] [place] [address] Encounter for other general examination Social History [...] LAB CHEMISTRY METHOD 10/06/2024 9:33 AM EST [facility] Blood Venous blood specimen / Unknown Venipuncture / Unknown 10/06/2024 5:48 AM EST 10/06/2024 6:48 AM EST Narrative [facility] - 10/06/2024 9:33 AM EST [facility] ?? 8 AM SPEC: ??5.0-23.0 mcg/dL ?? 4 PM SPEC: ??3.0-16.0 mcg/dL ?? 8 PM SPEC: ??<5.0 mcg/dL Angelo Kasper MD LAB BLOOD ORDERABLES Performing Organization Address [facility]/ZIP Co de Phone Number [facility] [address] [place] [address], * Thyroid stimulating hormone (10/06/2024 5:48 AM EST) [facility] TSH 2.14 0.40 - 4.00 mcIU/mL LAB CHEMISTRY METHOD 10/06/2024 8:28 AM EST [facility] Blood Venous blood specimen / Unknown Venipuncture / Unknown 10/06/2024 5:48 AM EST 10/06/2024 6:48 AM EST Angelo Kasper MD LAB BLOOD ORDERABLES Performing Organization Address [facility]/ZIP Co de Phone Number [facility] [address] [place] [address], * (ABNORMAL) Basic metabolic panel (10/06/2024 5:48 AM EST) [facility] Sodium 130(L) 133 - 145 mmol/L LAB CHEMISTRY METHOD 10/06/2024 7:23 AM [facility] Potassium 4.0 3.5 - 5.5 mmol/L LAB CHEMISTRY METHOD 10/06/2024 7:23 AM EST [facility] Chloride 98 96 - 110 mmol/L LAB CHEMISTRY METHOD 10/06/2024 7:23 AM EST [facility] CO2 26 21 - 32 mmol/L LAB CHEMISTRY METHOD 10/06/2024 7:23 AM [facility] Anion Gap 6 3 - 11 LAB CHEMISTRY METHOD 10/06/2024 7:23 AM [facility] Glucose 76 70 - 100 mg/dL LAB CHEMISTRY METHOD 10/06/2024 7:23 AM EST [facility] BUN 9 5 - 25 mg/dL LAB CHEMISTRY METHOD 10/06/2024 7:23 AM [facility] Creatinine 0.62 0.50 - 1.10 mg/dL LAB CHEMISTRY METHOD 10/06/2024 7:23 AM [facility] eGFR 87 >=60 mL/min/1. 73m2 LAB CHEMISTRY METHOD 10/06/2024 7:23 AM EST [facility] Comment:Calculation based on the??Chronic Kidney Disease Epidemiology Collaboration (CKD-EPI) equation refit??without adjustment for race. BUN/Creatinine Ratio 14.5 LAB CHEMISTRY METHOD 10/06/2024 7:23 AM [facility] Calcium 8.4(L) 8.5 - 10.5 mg/dL LAB CHEMISTRY METHOD 10/06/2024 7:23 AM EST [facility] Blood Venous blood specimen / Unknown Venipuncture / Unknown 10/06/2024 5:48 AM EST 10/06/2024 6:48 AM EST Angelo Kasper MD LAB BLOOD ORDERABLES [facility] [address] [place] [address], documented in this encounter Visit Diagnoses Diagnosis Encounter for other general examination documented in this encounter
--- OUTSIDE RECORDS SUMMARY | 2024-12-10 13:13 | XMS_ITS | Encounter Summary ---
Author Organization [facility] Address [address] [place] [address] Care Team Providers Care Varnish Inspector Name Role Phone Unavailable Primary Care Provider Unavailabl e Encounter Details Date Type Department Care Team (Late st Contact Info) Description 09/29/2024 Lab Requisition [facility] - Main Lab [address] [place] [address] Angelo Kasper MD [address] [place] [phone] Encounter for other general examination Social History [...] AM EST) WBC 11.5(H) 4.8 - 10.8 K/[facility] LAB HEMETOLOGY METHOD 09/29/2024 11:08 AM EST [facility] RBC 4.10 3.80 - 4.80 M/[facility] LAB HEMETOLOGY METHOD 09/29/2024 11:08 AM [facility] Hemoglobin 12.5 11.5 - 16.0 g/dL LAB HEMETOLOGY METHOD 09/29/2024 11:08 AM [facility] Hematocrit 39.9 35.0 - 47.0 % LAB HEMETOLOGY METHOD 09/29/2024 11:08 AM [facility] MCV 96.8 79.0 - 98.0 FL LAB HEMETOLOGY METHOD 09/29/2024 11:08 AM [facility] MCH 30.3 27.0 - 32.0 pcg LAB HEMETOLOGY METHOD 09/29/2024 11:08 AM [facility] MCHC 31.3(L) 32.0 - 37.0 g/dL LAB HEMETOLOGY METHOD 09/29/2024 11:08 AM [facility] RDW 14.0 11.0 - 15.0 % LAB HEMETOLOGY METHOD 09/29/2024 11:08 AM [facility] Platelets 293 130 - 400 K/[facility] LAB HEMETOLOGY METHOD 09/29/2024 11:08 AM [facility] MPV 9.5 7.0 - 11.0 FL LAB HEMETOLOGY METHOD 09/29/2024 11:08 AM [facility] NRBC 0.0 <1.0 % LAB HEMETOLOGY METHOD 09/29/2024 11:08 AM [facility] NRBC Absolute 0.00 <0.10 K/[facility] LAB HEMETOLOGY METHOD 09/29/2024 11:08 AM [facility] Neutrophils Relative 54.5 % LAB HEMETOLOGY METHOD 09/29/2024 11:08 AM [facility] Lymphocytes Relative 34.1 % LAB HEMETOLOGY METHOD 09/29/2024 11:08 AM [facility] Monocytes Relative 5.0 % LAB HEMETOLOGY METHOD 09/29/2024 11:08 AM [facility] Eosinophils Relative 4.3 % LAB HEMETOLOGY METHOD 09/29/2024 11:08 AM [facility] Basophils Relative 1.0 % LAB HEMETOLOGY METHOD 09/29/2024 11:08 AM [facility] Immature Granulocytes Relative 1.1 % LAB HEMETOLOGY METHOD 09/29/2024 11:08 AM [facility] Neutrophils Absolute 6.25 1.50 - 7.00 K/mcL LAB HEMETOLOGY METHOD 09/29/2024 11:08 AM [facility] Lymphocytes Absolute 3.93 1.00 - 5.00 K/mcL LAB HEMETOLOGY METHOD 09/29/2024 11:08 AM [facility] Monocytes Absolute 0.58 0.20 - 1.00 K/mcL LAB HEMETOLOGY METHOD 09/29/2024 11:08 AM [facility] Eosinophils Absolute 0.50 0.00 - 0.50 K/mcL LAB HEMETOLOGY METHOD 09/29/2024 11:08 AM [facility] Basophils Absolute 0.12 0.00 - 0.20 K/mcL LAB HEMETOLOGY METHOD 09/29/2024 11:08 AM [facility] Immature Granulocytes Absolute 0.13(H) 0.00 - 0.03 K/mcL LAB HEMETOLOGY METHOD 09/29/2024 11:08 AM [facility] Blood Venous blood specimen / Unknown Venipuncture / Unknown 09/29/2024 7:35 AM EST 09/29/2024 10:30 AM EST Angelo Kasper MD LAB BLOOD ORDERABLES [facility] [address] [place] [address], * Magnesium (09/29/2024 7:35 AM EST) Magnesium 2.1 1.9 - 2.6 mg/dL LAB CHEMISTRY METHOD 09/29/2024 11:09 AM [facility] Blood Venous blood specimen / Unknown Venipuncture / Unknown 09/29/2024 7:35 AM EST 09/29/2024 10:30 AM EST Angelo Kasper MD LAB BLOOD ORDERABLES [facility] [address] [place] [address], * (ABNORMAL) Comprehensive metabolic panel (09/29/2024 7:35 AM EST) Sodium 138 133 - 145 mmol/L LAB CHEMISTRY METHOD 09/29/2024 11:09 AM [facility] Potassium 4.8 3.5 - 5.5 mmol/L LAB CHEMISTRY METHOD 09/29/2024 11:09 AM [facility] Chloride 107 96 - 110 mmol/L LAB CHEMISTRY METHOD 09/29/2024 11:09 AM [facility] CO2 24 21 - 32 mmol/L LAB CHEMISTRY METHOD 09/29/2024 11:09 AM [facility] Anion Gap 7 3 - 11 LAB CHEMISTRY METHOD 09/29/2024 11:09 AM [facility] Glucose 75 70 - 100 mg/dL LAB CHEMISTRY METHOD 09/29/2024 11:09 AM [facility] BUN 16 5 - 25 mg/dL LAB CHEMISTRY METHOD 09/29/2024 11:09 AM [facility] Creatinine 0.79 0.50 - 1.10 mg/dL LAB CHEMISTRY METHOD 09/29/2024 11:09 AM [facility] eGFR 73 >=60 mL/min/1. 73m2 LAB CHEMISTRY METHOD 09/29/2024 11:09 AM [facility] Comment:Calculation based on the??Chronic Kidney Disease Epidemiology Collaboration (CKD-EPI) equation refit??without adjustment for race. BUN/Creatinine Ratio 20.3 LAB CHEMISTRY METHOD 09/29/2024 11:09 AM [facility] Calcium 9.3 8.5 - 10.5 mg/dL LAB CHEMISTRY METHOD 09/29/2024 11:09 AM [facility] AST (SGOT) 29 10 - 42 unit/L LAB CHEMISTRY METHOD 09/29/2024 11:09 AM [facility] ALT (SGPT) 33 10 - 60 unit/L LAB CHEMISTRY METHOD 09/29/2024 11:09 AM [facility] Alkaline Phosphatase 134(H) 42 - 121 unit/L LAB CHEMISTRY METHOD 09/29/2024 11:09 AM [facility] Total Protein 6.8 6.0 - 8.0 g/dL LAB CHEMISTRY METHOD 09/29/2024 11:09 AM [facility] Albumin 3.5 3.2 - 5.0 g/dL LAB CHEMISTRY METHOD 09/29/2024 11:09 AM [facility] Total Bilirubin 0.5 0.0 - 1.4 mg/dL LAB CHEMISTRY METHOD 09/29/2024 11:09 AM [facility] Blood Venous blood specimen / Unknown Venipuncture / Unknown 09/29/2024 7:35 AM EST 09/29/2024 10:30 AM EST Angelo Kasper MD LAB BLOOD ORDERABLES [facility] [address] [place] [address], documented in this encounter Visit Diagnoses Diagnosis Encounter for other general examination documented in this encounter
--- OUTSIDE RECORDS SUMMARY | 2024-12-10 13:14 | XMS_ITS | Encounter Summary ---
Author Organization [facility] Address [address] [place] [address] Care Team Providers Care Finance Executive Name Role Phone Unavailable Primary Care Provider Unavailabl e Encounter Details Date Type Department Care Team (Late st Contact Info) Description 09/30/2024 Lab Requisition [facility] - Main Lab [address] [place] [address] Angelo Kasper MD [address] [place] [phone] Encounter for other general examination Social History [...] LAB HEMETOLOGY METHOD 09/30/2024 1:38 PM EST [facility] RBC 4.10 3.80 - 4.80 M/[facility] LAB HEMETOLOGY METHOD 09/30/2024 1:38 PM EST [facility] Hemoglobin 12.4 11.5 - 16.0 g/dL LAB HEMETOLOGY METHOD 09/30/2024 1:38 PM EST [facility] LAB Hematocrit 38.8 35.0 - 47.0 % LAB HEMETOLOGY METHOD 09/30/2024 1:38 PM EST [facility] LAB MCV 95.1 79.0 - 98.0 FL LAB HEMETOLOGY METHOD 09/30/2024 1:38 PM [facility] MCH 30.4 27.0 - 32.0 pcg LAB HEMETOLOGY METHOD 09/30/2024 1:38 PM EST [facility] LAB MCHC 32.0 32.0 - 37.0 g/dL LAB HEMETOLOGY METHOD 09/30/2024 1:38 PM [facility] RDW 14.1 11.0 - 15.0 % LAB HEMETOLOGY METHOD 09/30/2024 1:38 PM [facility] Platelets 279 130 - 400 K/mcL LAB HEMETOLOGY METHOD 09/30/2024 1:38 PM EST [facility] LAB MPV 9.4 7.0 - 11.0 FL LAB HEMETOLOGY METHOD 09/30/2024 1:38 PM EST [facility] NRBC 0.0 <1.0 % LAB HEMETOLOGY METHOD 09/30/2024 1:38 PM [facility] NRBC Absolute 0.00 <0.10 K/mcL LAB HEMETOLOGY METHOD 09/30/2024 1:38 PM [facility] Blood Venous blood specimen / Unknown Venipuncture / Unknown 09/30/2024 7:07 AM EST 09/30/2024 1:00 PM EST Angelo Kasper MD LAB BLOOD ORDERABLES [facility] [address] [place] [address], * (ABNORMAL) Basic metabolic panel (09/30/2024 7:07 AM EST) Sodium 135 133 - 145 mmol/L LAB CHEMISTRY METHOD 09/30/2024 4:17 PM [facility] Potassium 4.6 3.5 - 5.5 mmol/L LAB CHEMISTRY METHOD 09/30/2024 4:17 PM [facility] Chloride 103 96 - 110 mmol/L LAB CHEMISTRY METHOD 09/30/2024 4:17 PM [facility] CO2 25 21 - 32 mmol/L LAB CHEMISTRY METHOD 09/30/2024 4:17 PM [facility] Anion Gap 7 3 - 11 LAB CHEMISTRY METHOD 09/30/2024 4:17 PM [facility] Glucose 60(L) 70 - 100 mg/dL LAB CHEMISTRY METHOD 09/30/2024 4:17 PM [facility] BUN 20 5 - 25 mg/dL LAB CHEMISTRY METHOD 09/30/2024 4:17 PM [facility] Creatinine 0.82 0.50 - 1.10 mg/dL LAB CHEMISTRY METHOD 09/30/2024 4:17 PM [facility] eGFR 70 >=60 mL/min/1. 73m2 LAB CHEMISTRY METHOD 09/30/2024 4:17 PM [facility] Comment:Calculation based on the??Chronic Kidney Disease Epidemiology Collaboration (CKD-EPI) equation refit??without adjustment for race. BUN/Creatinine Ratio 24.4 LAB CHEMISTRY METHOD 09/30/2024 4:17 PM [facility] Calcium 9.8 8.5 - 10.5 mg/dL LAB CHEMISTRY METHOD 09/30/2024 4:17 PM [facility] Blood Venous blood specimen / Unknown Venipuncture / Unknown 09/30/2024 7:07 AM EST 09/30/2024 1:00 PM EST Angelo Kasper MD LAB BLOOD ORDERABLES [facility] [address] [place] [address], documented in this encounter Visit Diagnoses Diagnosis Encounter for other general examination documented in this encounter
--- OUTSIDE RECORDS SUMMARY | 2024-12-10 13:14 | XMS_ITS | Encounter Summary ---
Author Organization [facility] Address [address] [place] [address] Care Team Providers Care Quality Inspector Name Role Phone Unavailable Primary Care Provider Unavailabl e Encounter Details Date Type Department Care Team (Late st Contact Info) Description 10/11/2024 Lab Requisition [facility] Lab [address] [facility] [place] [address] Angelo Kasper MD [address] [place] [phone] Encounter for other general examination Social History [...] mmol/L LAB CHEMISTRY METHOD 10/11/2024 1:13 PM [facility] Potassium 4.0 3.5 - 5.5 mmol/L LAB CHEMISTRY METHOD 10/11/2024 1:13 PM [facility] Chloride 102 96 - 110 mmol/L LAB CHEMISTRY METHOD 10/11/2024 1:13 PM [facility] CO2 23 21 - 32 mmol/L LAB CHEMISTRY METHOD 10/11/2024 1:13 PM [facility] Anion Gap 9 3 - 11 LAB CHEMISTRY METHOD 10/11/2024 1:[address] [facility] LAB Glucose 80 70 - 100 mg/dL LAB CHEMISTRY METHOD 10/11/2024 1:13 PM [facility] BUN 25 5 - 25 mg/dL LAB CHEMISTRY METHOD 10/11/2024 1:13 PM [facility] Creatinine 0.99 0.50 - 1.10 mg/dL LAB CHEMISTRY METHOD 10/11/2024 1:13 PM [facility] eGFR 56(L) >=60 mL/min/1. 73m2 LAB CHEMISTRY METHOD 10/11/2024 1:13 PM [facility] Comment:Calculation based on the??Chronic Kidney Disease Epidemiology Collaboration (CKD-EPI) equation refit??without adjustment for race. BUN/Creatinine Ratio 25.3 LAB CHEMISTRY METHOD 10/11/2024 1:13 PM [facility] Calcium 8.7 8.5 - 10.5 mg/dL LAB CHEMISTRY METHOD 10/11/2024 1:13 PM [facility] Blood Venous blood specimen / Unknown Venipuncture / Unknown 10/11/2024 7:25 AM EST 10/11/2024 11:51 AM EST Angelo Kasper MD LAB BLOOD ORDERABLES [facility] [address] [place] [address], documented in this encounter Visit Diagnoses Diagnosis Encounter for other general examination documented in this encounter
--- OUTSIDE RECORDS SUMMARY | 2024-12-10 13:14 | XMS_ITS | Encounter Summary ---
Author Organization [facility] Address [address] [place] [address] Care Team Providers Care Extended Insurance Clerk Name Role Phone Unavailable Primary Care Provider Unavailabl e Encounter Details Date Type Department Care Team (Late st Contact Info) Description 10/04/2024 Lab Requisition [facility] - Main Lab [address] [place] [address] Angelo Kasper MD [address] [place] [phone] Encounter for other general examination Social History [...] LAB CHEMISTRY METHOD 10/04/2024 10:[address] [facility] Blood Venous blood specimen / Unknown Venipuncture / Unknown 10/04/2024 5:56 AM EST 10/04/2024 9:06 AM EST Angelo Kasper MD LAB BLOOD ORDERABLES [facility] [address] [place] [address], documented in this encounter Visit Diagnoses Diagnosis Encounter for other general examination documented in this encounter
--- OUTSIDE RECORDS SUMMARY | 2024-12-10 13:14 | XMS_ITS | Encounter Summary ---
Author Organization [facility] Address [address] [place] [address] Care Team Providers Care Renewals Representative Name Role Phone Unavailable Primary Care Provider Unavailabl e Encounter Details Date Type Department Care Team (Late st Contact Info) Description 10/09/2024 Lab Requisition [facility] - Main Lab 299 [facility] [place] [address] Angelo Kasper MD [address] [place] [phone] Encounter for other general examination Social History [...] mmol/L LAB CHEMISTRY METHOD 10/09/2024 12:[address] [facility] Potassium 4.1 3.5 - 5.5 mmol/L LAB CHEMISTRY METHOD 10/09/2024 12:[address] [facility] Chloride 100 96 - 110 mmol/L LAB CHEMISTRY METHOD 10/09/2024 12:[address] [facility] CO2 26 21 - 32 mmol/L LAB CHEMISTRY METHOD 10/09/2024 12:[address] [facility] Anion Gap 6 3 - 11 LAB CHEMISTRY METHOD 10/09/2024 12:[address] [facility] Glucose 62(L) 70 - 100 mg/dL LAB CHEMISTRY METHOD 10/09/2024 12:[address] [facility] BUN 12 5 - 25 mg/dL LAB CHEMISTRY METHOD 10/09/2024 12:[address] [facility] Creatinine 0.71 0.50 - 1.10 mg/dL LAB CHEMISTRY METHOD 10/09/2024 12:[address] [facility] eGFR 83 >=60 mL/min/1. 73m2 LAB CHEMISTRY METHOD 10/09/2024 12:[address] [facility] Comment:Calculation based on the??Chronic Kidney Disease Epidemiology Collaboration (CKD-EPI) equation refit??without adjustment for race. BUN/Creatinine Ratio 16.9 LAB CHEMISTRY METHOD 10/09/2024 12:[address] [facility] Calcium 8.8 8.5 - 10.5 mg/dL LAB CHEMISTRY METHOD 10/09/2024 12:[address] [facility] Blood Venous blood specimen / Unknown Venipuncture / Unknown 10/09/2024 7:03 AM EST 10/09/2024 10:19 AM EST Angelo Kasper MD LAB BLOOD ORDERABLES [facility] [address] [place] [address], documented in this encounter Visit Diagnoses Diagnosis Encounter for other general examination documented in this encounter
--- OUTSIDE RECORDS SUMMARY | 2024-12-10 13:14 | XMS_ITS | Encounter Summary ---
Author Organization [employer] Address [address] [place] [address] Care Team Providers Care Artist Agent Name Role Phone Unavailable Primary Care Provider Unavailabl e Encounter Details Date Type Department Care Team (Late st Contact Info) Description 10/04/2024 Lab Requisition [facility] - Main Lab [address] [facility] [place] [address] Angelo Kasper MD [address] [place] [address] [phone] Encounter for other general examination Social History [...] and culture (10/04/2024 4:00 AM EST) Specific [place] Urine 1.018 1.003 - 1.030 LAB URINALYSIS - AUTOMATED METHOD 10/04/2024 9:55 AM [facility] pH, Urine 7.0 5.0 - 8.0 pH LAB URINALYSIS - AUTOMATED METHOD 10/04/2024 9:55 AM [facility] Leukocytes, Urine Negative Negative LAB URINALYSIS - AUTOMATED METHOD 10/04/2024 9:55 AM [facility] Nitrite, Urine Negative Negative LAB URINALYSIS - AUTOMATED METHOD 10/04/2024 9:55 AM [facility] Protein, Urine Negative <=Trace mg/dL LAB URINALYSIS - AUTOMATED METHOD 10/04/2024 9:55 AM [facility] Glucose, Urine Negative Negative mg/dL LAB URINALYSIS - AUTOMATED METHOD 10/04/2024 9:55 AM [facility] Ketones, Urine Trace(A) Negative mg/dL LAB URINALYSIS - AUTOMATED METHOD 10/04/2024 9:55 AM [facility] Urobilinogen, Urine 1.0 0.2 - 1.0 mg/dL LAB URINALYSIS - AUTOMATED METHOD 10/04/2024 9:55 AM [facility] Bilirubin, Urine Negative Negative LAB URINALYSIS - AUTOMATED METHOD 10/04/2024 9:55 AM [facility] Blood, Urine Negative Negative LAB URINALYSIS - AUTOMATED METHOD 10/04/2024 9:55 AM [facility] Urine Urine specimen obtained by clean catch procedure / Unknown Non-blood Collection / Unknown 10/04/2024 4:00 AM EST 10/04/2024 9:37 AM EST Angelo Kasper MD LAB URINE ORDERABLES [facility] [address] [place] [address], * Navarro urine culture tube (10/04/2024 4:00 AM EST) Extra Tube Hold for add-ons. 10/04/2024 11:01 AM EST [facility] Comment:Auto resulted. Urine Urine specimen obtained by clean catch procedure / Unknown Non-blood Collection / Unknown 10/04/2024 4:00 AM EST 10/04/2024 9:37 AM EST Angelo Kasper MD LAB URINE ORDERABLES Performing Organization Address City/[facility]/ZIP Co de Phone Number [facility] [address] [place] [address], [place] [phone] * Sodium, urine, random (10/04/2024 4:00 AM EST) Sodium, Ur 87 mmol/L LAB CHEMISTRY METHOD 10/04/2024 10:46 AM EST [facility] Urine Urine specimen obtained by clean catch procedure / Unknown Non-blood Collection / Unknown 10/04/2024 4:00 AM EST 10/04/2024 9:37 AM EST Angelo Kasper MD LAB URINE ORDERABLES Performing Organization Address [facility]/ZIP Co de Phone Number [facility] [address] [place] [address], [place] [phone] * Osmolality, urine (10/04/2024 4:00 AM EST) Osmolality, Urine 475 300 - 1,300 mOsm/kg LAB CHEMISTRY METHOD 10/04/2024 10:45 AM EST [facility] Urine Urine specimen obtained by clean catch procedure / Unknown Non-blood Collection / Unknown 10/04/2024 4:00 AM EST 10/04/2024 9:37 AM EST Angelo Kasper MD LAB URINE ORDERABLES Performing Organization Address City/[facility]/ZIP Co de Phone Number [facility] [address] [place] [address], documented in this encounter Visit Diagnoses Diagnosis Encounter for other general examination documented in this encounter
--- OUTSIDE RECORDS SUMMARY | 2024-12-10 13:14 | XMS_ITS | Encounter Summary ---
Author Organization [facility] Address [address] [place] [address] Care Team Providers Care Head Of Maintenance Name Role Phone Unavailable Primary Care Provider Unavailabl e Encounter Details Date Type Department Care Team (Late st Contact Info) Description 10/07/2024 Lab Requisition [facility] - Main Lab 299 [facility] [place] [address] Angelo Kasper MD [address] [place] [phone] Encounter for other general examination Social History [...] LAB CHEMISTRY METHOD 10/07/2024 2:59 PM EST [facility] Potassium 4.2 3.5 - 5.5 mmol/L LAB CHEMISTRY METHOD 10/07/2024 2:59 PM EST [facility] Chloride 98 96 - 110 mmol/L LAB CHEMISTRY METHOD 10/07/2024 2:59 PM EST [facility] CO2 22 21 - 32 mmol/L LAB CHEMISTRY METHOD 10/07/2024 2:59 PM EST [facility] Anion Gap 10 3 - 11 LAB CHEMISTRY METHOD 10/07/2024 2:59 PM EST [facility] Glucose 63(L) 70 - 100 mg/dL LAB CHEMISTRY METHOD 10/07/2024 2:59 PM [facility] BUN 9 5 - 25 mg/dL LAB CHEMISTRY METHOD 10/07/2024 2:59 PM [facility] Creatinine 0.55 0.50 - 1.10 mg/dL LAB CHEMISTRY METHOD 10/07/2024 2:59 PM [facility] eGFR 89 >=60 mL/min/1. 73m2 LAB CHEMISTRY METHOD 10/07/2024 2:59 PM [facility] Comment:Calculation based on the??Chronic Kidney Disease Epidemiology Collaboration (CKD-EPI) equation refit??without adjustment for race. BUN/Creatinine Ratio 16.4 LAB CHEMISTRY METHOD 10/07/2024 2:59 PM [facility] Calcium 8.3(L) 8.5 - 10.5 mg/dL LAB CHEMISTRY METHOD 10/07/2024 2:59 PM [facility] Blood Venous blood specimen / Unknown 10/07/2024 7:28 AM EST 10/07/2024 12:05 PM EST Angelo Kasper MD LAB BLOOD ORDERABLES [facility] [address] [place] [address], documented in this encounter Visit Diagnoses Diagnosis Encounter for other general examination documented in this encounter
--- OUTSIDE RECORDS SUMMARY | 2024-12-10 13:14 | XMS_ITS | Clinical Summary ---
Author Organization [address] Address [address] [place] [address] Phone Care Team Providers Care Cost Accounting Clerk Name Role Phone Unavailable Primary Care Provider Unavailabl e Encounters Date Type Department Care Team Description 10/11/2024 Lab Requisition [facility] [address] [place] [phone] Angelo Kasper MD Encounter for other general examination 10/09/2024 Lab Requisition [facility] [address] [place] [address] Angelo Kasper MD Encounter for other general examination 10/07/2024 Lab Requisition [facility] [address] [place] [address] Angelo Kasper MD Encounter for other general examination 10/06/2024 Lab Requisition [facility] [address] [place] [address] Angelo Kasper MD Encounter for other general examination 10/05/2024 Lab Requisition [facility] [address] [place] [address] Angelo Kasper MD Encounter for other general examination 10/04/2024 Lab Requisition [facility] [address] [place] [address] Angelo Kasper MD Encounter for other general examination 10/04/2024 Lab Requisition [facility] [address] [place] [address] Angelo Kasper MD Encounter for other general examination 10/03/2024 Lab Requisition [facility] - Main Lab [address] [place] [phone] Angelo Kasper MD Encounter for other general examination 09/30/2024 Lab Requisition [facility] [address] [place] [phone] Angelo Kasper MD Encounter for other general examination 09/29/2024 Lab Requisition [facility] [address] [place] [phone] Angelo Kasper MD Encounter for other general [...] 11 LAB CHEMISTRY METHOD 10/11/2024 1:13 PM [facility] Glucose 80 70 - 100 mg/dL LAB CHEMISTRY METHOD 10/11/2024 1:13 PM [facility] BUN 25 5 - 25 mg/dL LAB CHEMISTRY METHOD 10/11/2024 1:13 PM [facility] Creatinine 0.99 0.50 - 1.10 mg/dL LAB CHEMISTRY METHOD 10/11/2024 1:[address] [facility] eGFR 56(L) >=60 mL/min/1. 73m2 LAB CHEMISTRY METHOD 10/11/2024 1:[address] [facility] Comment:Calculation based on [...] EST Angelo Kasper MD LAB BLOOD ORDERABLES [facility] [address] [place] [address], * Thyroid stimulating hormone (10/06/2024 5:48 AM EST) TSH 2.14 0.40 - 4.00 mcIU/mL LAB CHEMISTRY METHOD 10/06/2024 8:[address] [facility] Blood Venous blood specimen / Unknown Venipuncture / Unknown 10/06/2024 5:48 AM EST 10/06/2024 6:48 AM EST Angelo Kasper MD LAB BLOOD ORDERABLES [facility] [address] [place] [address], [place] [phone] * Cortisol (10/06/2024 5:48 AM EST) Cortisol 11.8 mcg/dL LAB CHEMISTRY METHOD 10/06/2024 9:[address] [facility] Blood Venous blood specimen / Unknown Venipuncture / Unknown 10/06/2024 5:48 AM EST 10/06/2024 6:[address] [facility] - 10/06/2024 9:33 AM EST CORTISOL REFERENCE RANGE ?? 8 AM SPEC: ??5.0-23.0 mcg/dL ?? 4 PM SPEC: ??3.0-16.0 mcg/dL ?? 8 PM SPEC: ??<5.0 mcg/dL Angelo Kasper MD LAB BLOOD ORDERABLES Performing Organization Address [facility]/ZIP Co de Phone Number [facility] [address] [place] [address], [place] [phone] * (ABNORMAL) Osmolality (10/04/2024 5:56 AM EST) [facility] Osmolality Grisel 265(L) 280 - 300 mOsm/kg LAB CHEMISTRY METHOD 10/04/2024 10:[address] [facility] Blood Venous blood specimen / Unknown Venipuncture / Unknown 10/04/2024 5:56 AM EST 10/04/2024 9:06 AM EST Angelo Kasper MD LAB BLOOD ORDERABLES Performing Organization Address [facility]/ZIP Co de Phone Number [facility] [address] [place] [address], [place] [phone] * (ABNORMAL) Urinalysis with reflex microscopic and culture (10/04/2024 4:00 AM EST) [facility] Specific [place] Urine 1.018 1.003 - 1.030 LAB URINALYSIS - AUTOMATED METHOD 10/04/2024 9:[address] [facility] pH, Urine 7.0 5.0 - [...] EST Angelo Kasper MD LAB URINE ORDERABLES [facility] [address] [place] [address], * Navarro urine culture tube (10/04/2024 4:00 AM EST) Extra Tube Hold for add-ons. 10/04/2024 11:01 AM [facility] Comment:Auto resulted. Urine Urine specimen obtained by clean catch procedure / Unknown Non-blood Collection / Unknown 10/04/2024 4:00 AM EST 10/04/2024 9:37 AM EST Angelo Kasper MD LAB URINE ORDERABLES Performing Organization Address [facility] Co de Phone Number [facility] [address] [place] [address], [place] [phone] * Sodium, urine, random (10/04/2024 4:00 AM EST) Sodium, Ur 87 mmol/L LAB CHEMISTRY METHOD 10/04/2024 10:[address] [facility] Urine Urine specimen obtained by clean catch procedure / Unknown Non-blood Collection / Unknown 10/04/2024 4:00 AM EST 10/04/2024 9:37 AM EST Angelo Kasper MD LAB URINE ORDERABLES Performing Organization Address [facility] de Phone Number [facility] [address] [place] [address], [place] [phone] * Osmolality, urine (10/04/2024 4:00 AM EST) Osmolality, Urine 475 300 - 1,300 mOsm/kg LAB CHEMISTRY METHOD 10/04/2024 10:[address] [facility] Urine Urine specimen obtained by clean catch procedure / Unknown Non-blood Collection / Unknown 10/04/2024 4:00 AM EST 10/04/2024 9:37 AM EST Angelo Kasper MD LAB URINE ORDERABLES Performing Organization Address [facility] Co de Phone Number [facility] [address] [place] [address], [place] [phone] * (ABNORMAL) CBC auto differential (10/03/2024 6:25 AM EST) Only the most recent of2 resultswithin the time period is included. [facility] WBC 4.2(L) 4.8 - 10.8 K/mcL LAB HEMETOLOGY METHOD 10/03/2024 11:02 AM [facility] RBC 4.00 3.80 - 4.80 M/mcL LAB HEMETOLOGY METHOD 10/03/2024 11:02 AM [facility] Hemoglobin 12.0 11.5 - 16.0 g/dL LAB HEMETOLOGY METHOD 10/03/2024 11:02 AM [facility] Hematocrit 37.5 35.0 - 47.0 % LAB HEMETOLOGY METHOD 10/03/2024 11:02 AM [facility] MCV 94.5 79.0 - 98.0 FL LAB HEMETOLOGY METHOD 10/03/2024 11:02 AM [facility] MCH 30.2 27.0 - 32.0 pcg LAB HEMETOLOGY METHOD 10/03/2024 11:02 AM [facility] MCHC 32.0 32.0 - 37.0 g/dL LAB HEMETOLOGY METHOD 10/03/2024 11:02 AM [facility] RDW 13.8 11.0 - 15.0 % LAB HEMETOLOGY METHOD 10/03/2024 11:02 AM [facility] Platelets 224 130 - 400 K/mcL LAB HEMETOLOGY METHOD 10/03/2024 11:02 AM [facility] MPV 9.6 7.0 - 11.0 FL LAB HEMETOLOGY METHOD 10/03/2024 11:02 AM [facility] NRBC 0.0 <1.0 % LAB HEMETOLOGY METHOD 10/03/2024 11:02 AM [facility] NRBC Absolute 0.00 <0.10 K/mcL LAB HEMETOLOGY METHOD 10/03/2024 11:02 AM [facility] Neutrophils Relative 57.4 % LAB HEMETOLOGY METHOD 10/03/2024 11:02 AM [facility] Lymphocytes Relative 22.8 % LAB HEMETOLOGY METHOD 10/03/2024 11:02 AM [facility] Monocytes Relative 13.5 % LAB HEMETOLOGY METHOD 10/03/2024 11:02 AM [facility] Eosinophils Relative 3.1 % LAB HEMETOLOGY METHOD 10/03/2024 11:02 AM [facility] Basophils Relative 1.0 % LAB HEMETOLOGY METHOD 10/03/2024 11:02 AM [facility] Immature Granulocytes Relative 2.2 % LAB HEMETOLOGY METHOD 10/03/2024 11:02 AM [facility] Neutrophils Absolute 2.39 1.50 - 7.00 K/mcL LAB HEMETOLOGY METHOD 10/03/2024 11:02 AM [facility] Lymphocytes Absolute 0.95(L) 1.00 - 5.00 K/mcL LAB HEMETOLOGY METHOD 10/03/2024 11:02 AM [facility] Monocytes Absolute 0.56 0.20 - 1.00 K/mcL LAB HEMETOLOGY METHOD 10/03/2024 11:02 AM [facility] Eosinophils Absolute 0.13 0.00 - 0.50 K/mcL LAB HEMETOLOGY METHOD 10/03/2024 11:02 AM [facility] Basophils Absolute 0.04 0.00 - 0.20 K/mcL LAB HEMETOLOGY METHOD 10/03/2024 11:02 AM [facility] Immature Granulocytes Absolute 0.09(H) 0.00 - 0.03 K/mcL LAB HEMETOLOGY METHOD 10/03/2024 11:02 AM [facility] Blood Venous blood specimen / Unknown Venipuncture / Unknown 10/03/2024 6:25 AM EST 10/03/2024 9:48 AM EST Angelo Kasper MD LAB BLOOD ORDERABLES [facility] [address] [place] [address], * (ABNORMAL) Complete blood count (09/30/2024 7:07 AM EST) WBC 11.5(H) 4.8 - 10.8 K/mcL LAB HEMETOLOGY METHOD 09/30/2024 1:38 PM [facility] RBC 4.10 3.80 - 4.80 M/mcL LAB HEMETOLOGY METHOD 09/30/2024 1:38 PM [facility] Hemoglobin 12.4 11.5 - 16.0 g/dL LAB HEMETOLOGY METHOD 09/30/2024 1:38 PM [facility] Hematocrit 38.8 35.0 - 47.0 % LAB HEMETOLOGY METHOD 09/30/2024 1:38 PM [facility] MCV 95.1 79.0 - 98.0 FL LAB HEMETOLOGY METHOD 09/30/2024 1:38 PM [facility] MCH 30.4 27.0 - 32.0 pcg LAB HEMETOLOGY METHOD 09/30/2024 1:38 PM [facility] MCHC 32.0 32.0 - 37.0 g/dL LAB HEMETOLOGY METHOD 09/30/2024 1:38 PM [facility] RDW 14.1 11.0 - 15.0 % LAB HEMETOLOGY METHOD 09/30/2024 1:38 PM [facility] Platelets 279 130 - 400 K/mcL LAB HEMETOLOGY METHOD 09/30/2024 1:38 PM [facility] MPV 9.4 7.0 - 11.0 FL LAB HEMETOLOGY METHOD 09/30/2024 1:[address] [facility] NRBC 0.0 <1.0 % LAB HEMETOLOGY METHOD 09/30/2024 1:[address] [facility] NRBC Absolute 0.00 <0.10 K/mcL LAB HEMETOLOGY METHOD 09/30/2024 1:[address] [facility] Blood Venous blood specimen / Unknown Venipuncture / Unknown 09/30/2024 7:07 AM EST 09/30/2024 1:00 PM EST Angelo Kasper MD LAB BLOOD ORDERABLES Performing Organization Address City/[facility]/ZIP Co de Phone Number [facility] [address] [place] [address], * Magnesium (09/29/2024 7:35 AM EST) Pathologist [facility] Magnesium 2.1 1.9 - 2.6 mg/dL LAB CHEMISTRY METHOD 09/29/2024 11:[address] [facility] Blood Venous blood specimen / Unknown Venipuncture / Unknown 09/29/2024 7:35 AM EST 09/29/2024 10:30 AM EST Angelo Kasper MD LAB BLOOD ORDERABLES Performing Organization Address City/[facility]/ZIP Co de Phone Number [facility] [address] [place] [address], [place] [phone] * (ABNORMAL) Comprehensive metabolic panel (09/29/2024 7:35 AM EST) Sodium 138 133 - 145 mmol/L LAB CHEMISTRY METHOD 09/29/2024 11:09 AM [facility] Potassium 4.8 3.5 - 5.5 mmol/L LAB CHEMISTRY METHOD 09/29/2024 11:[address] [facility] Chloride 107 96 - 110 mmol/L LAB CHEMISTRY METHOD 09/29/2024 11:09 AM [facility] CO2 24 21 - 32 mmol/L LAB CHEMISTRY METHOD 09/29/2024 11:09 AM [facility] Anion Gap 7 3 - 11 LAB CHEMISTRY METHOD 09/29/2024 11:09 AM [facility] Glucose 75 70 - 100 mg/dL LAB CHEMISTRY METHOD 09/29/2024 11:09 AM [facility] BUN 16 5 - 25 mg/dL LAB CHEMISTRY METHOD 09/29/2024 11:09 AM [facility] Creatinine 0.79 0.50 - 1.10 mg/dL LAB CHEMISTRY METHOD 09/29/2024 11:09 AM [facility] eGFR 73 >=60 mL/min/1. 73m2 LAB CHEMISTRY METHOD 09/29/2024 11:09 AM [facility] Comment:Calculation based on the??Chronic Kidney Disease Epidemiology Collaboration (CKD-EPI) equation refit??without adjustment for race. BUN/Creatinine Ratio 20.3 LAB CHEMISTRY METHOD 09/29/2024 11:09 AM [facility] Calcium 9.3 8.5 - 10.5 mg/dL LAB CHEMISTRY METHOD 09/29/2024 11:09 AM [facility] AST (SGOT) 29 10 - 42 unit/L LAB CHEMISTRY METHOD 09/29/2024 11:09 AM [facility] ALT (SGPT) 33 10 - 60 unit/L LAB CHEMISTRY METHOD 09/29/2024 11:09 AM [facility] Alkaline Phosphatase 134(H) 42 - 121 unit/L LAB CHEMISTRY METHOD 09/29/2024 11:09 AM [facility] Total Protein 6.8 6.0 - 8.0 g/dL LAB CHEMISTRY METHOD 09/29/2024 11:09 AM [facility] Albumin 3.5 3.2 - 5.0 g/dL LAB CHEMISTRY METHOD 09/29/2024 11:[address] [facility] Total Bilirubin 0.5 0.0 - 1.4 mg/dL LAB CHEMISTRY METHOD 09/29/2024 11:[address] [facility] Blood Venous blood specimen / Unknown Venipuncture / Unknown 09/29/2024 7:35 AM EST 09/29/2024 10:30 AM EST Angelo Kasper MD LAB BLOOD ORDERABLES [facility] [address] [place] [address], from Last 3 Months
--- OUTSIDE RECORDS SUMMARY | 2024-12-10 13:14 | XMS_ITS | Encounter Summary ---
Author Organization [employer] Address [address] [place] [address] Care Team Providers Care Client Services Representative Name Role Phone Unavailable Primary Care Provider Unavailabl e Encounter Details Date Type Department Care Team (Late st Contact Info) Description 10/03/2024 Lab Requisition [facility] - Main Lab [address] [place] [address] Angelo Kasper MD [address] [place] [address] [phone] Encounter for other general examination Social History [...] AM EST) WBC 4.2(L) 4.8 - 10.8 K/[facility] LAB HEMETOLOGY METHOD 10/03/2024 11:02 AM EST [facility] RBC 4.00 3.80 - 4.80 M/mcL LAB HEMETOLOGY METHOD 10/03/2024 11:02 AM EST [facility] Hemoglobin 12.0 11.5 - 16.0 g/dL LAB HEMETOLOGY METHOD 10/03/2024 11:02 AM [facility] Hematocrit 37.5 35.0 - 47.0 % LAB HEMETOLOGY METHOD 10/03/2024 11:02 AM [facility] MCV 94.5 79.0 - 98.0 FL LAB HEMETOLOGY METHOD 10/03/2024 11:02 AM [facility] MCH 30.2 27.0 - 32.0 pcg LAB HEMETOLOGY METHOD 10/03/2024 11:02 AM [facility] MCHC 32.0 32.0 - 37.0 g/dL LAB HEMETOLOGY METHOD 10/03/2024 11:02 AM [facility] RDW 13.8 11.0 - 15.0 % LAB HEMETOLOGY METHOD 10/03/2024 11:02 AM [facility] Platelets 224 130 - 400 K/mcL LAB HEMETOLOGY METHOD 10/03/2024 11:02 AM [facility] MPV 9.6 7.0 - 11.0 FL LAB HEMETOLOGY METHOD 10/03/2024 11:02 AM [facility] NRBC 0.0 <1.0 % LAB HEMETOLOGY METHOD 10/03/2024 11:02 AM [facility] NRBC Absolute 0.00 <0.10 K/mcL LAB HEMETOLOGY METHOD 10/03/2024 11:02 AM [facility] Neutrophils Relative 57.4 % LAB HEMETOLOGY METHOD 10/03/2024 11:02 AM [facility] Lymphocytes Relative 22.8 % LAB HEMETOLOGY METHOD 10/03/2024 11:02 AM [facility] Monocytes Relative 13.5 % LAB HEMETOLOGY METHOD 10/03/2024 11:02 AM [facility] Eosinophils Relative 3.1 % LAB HEMETOLOGY METHOD 10/03/2024 11:02 AM [facility] Basophils Relative 1.0 % LAB HEMETOLOGY METHOD 10/03/2024 11:02 AM [facility] Immature Granulocytes Relative 2.2 % LAB HEMETOLOGY METHOD 10/03/2024 11:02 AM [facility] Neutrophils Absolute 2.39 1.50 - 7.00 K/mcL LAB HEMETOLOGY METHOD 10/03/2024 11:02 AM [facility] Lymphocytes Absolute 0.95(L) 1.00 - 5.00 K/mcL LAB HEMETOLOGY METHOD 10/03/2024 11:02 AM [facility] Monocytes Absolute 0.56 0.20 - 1.00 K/mcL LAB HEMETOLOGY METHOD 10/03/2024 11:02 AM [facility] Eosinophils Absolute 0.13 0.00 - 0.50 K/mcL LAB HEMETOLOGY METHOD 10/03/2024 11:02 AM [facility] Basophils Absolute 0.04 0.00 - 0.20 K/mcL LAB HEMETOLOGY METHOD 10/03/2024 11:02 AM [facility] Immature Granulocytes Absolute 0.09(H) 0.00 - 0.03 K/mcL LAB HEMETOLOGY METHOD 10/03/2024 11:02 AM [facility] Blood Venous blood specimen / Unknown Venipuncture / Unknown 10/03/2024 6:25 AM EST 10/03/2024 9:48 AM EST Angelo Kasper MD LAB BLOOD ORDERABLES [facility] [address] [place] [address], * (ABNORMAL) Basic metabolic panel (10/03/2024 6:25 AM EST) Sodium 128(L) 133 - 145 mmol/L LAB CHEMISTRY METHOD 10/03/2024 11:21 AM [facility] Potassium 4.4 3.5 - 5.5 mmol/L LAB CHEMISTRY METHOD 10/03/2024 11:21 AM [facility] Chloride 94(L) 96 - 110 mmol/L LAB CHEMISTRY METHOD 10/03/2024 11:21 AM [facility] CO2 28 21 - 32 mmol/L LAB CHEMISTRY METHOD 10/03/2024 11:21 AM [facility] Anion Gap 6 3 - 11 LAB CHEMISTRY METHOD 10/03/2024 11:21 AM [facility] Glucose 66(L) 70 - 100 mg/dL LAB CHEMISTRY METHOD 10/03/2024 11:21 AM [facility] BUN 13 5 - 25 mg/dL LAB CHEMISTRY METHOD 10/03/2024 11:21 AM [facility] Creatinine 0.67 0.50 - 1.10 mg/dL LAB CHEMISTRY METHOD 10/03/2024 11:21 AM [facility] eGFR 85 >=60 mL/min/1. 73m2 LAB CHEMISTRY METHOD 10/03/2024 11:21 AM [facility] Comment:Calculation based on the??Chronic Kidney Disease Epidemiology Collaboration (CKD-EPI) equation refit??without adjustment for race. BUN/Creatinine Ratio 19.4 LAB CHEMISTRY METHOD 10/03/2024 11:21 AM [facility] Calcium 8.9 8.5 - 10.5 mg/dL LAB CHEMISTRY METHOD 10/03/2024 11:21 AM [facility] Blood Venous blood specimen / Unknown Venipuncture / Unknown 10/03/2024 6:25 AM EST 10/03/2024 9:48 AM EST Angelo Kasper [facility] LAB [address] [place] [address], documented in this encounter Visit Diagnoses Diagnosis Encounter for other general examination documented in this encounter
[2024-12-10 13:25] VITALS: BP 146/88; PULSE 71; RESP 16; O2SAT 99
== END 2024-12-10 13:25 | disposition home or self-care (01) ==
LOC: HO.PMCPRC 12:50
PROVIDERS: PCP Internal Medicine; Visit Provider Anesthesiology
DX: M53.3 Sacrococcygeal disorders, not elsewhere classified (principal)
CPT/HCPCS: 27096

== ENCOUNTER 2024-12-16 14:12 | Outpatient (AMB) | payer MEDICARE, OTHER, SELFPAY ==
--- NOTE | 2024-12-16 14:13 | MHC.OFFVIS ---
Vital Signs 12/16/24 14:14 Height 5 ft 6 in Weight 167 lb BMI 27.0 BP 176/75 H Blood Pressure Location Lt brachial Position Sitting Respiration 16 Pulse 104 H Pulse Source Pulse Oximeter Pulse Oximetry (%) 97 Oxygen Delivery Method Room Air Intake Visit Reasons: BILATERAL DIAGNOSTIC SIJ INJECTIONS [employer] Packages Tester Required: No Allergies alendronate sodium [From FOSAMAX] Allergy (Severe, Verified 12/16/24 14:16) ANAPHYLAXIS lisinopril [LISINOPRIL] Allergy (Severe, Verified 12/16/24 14:16) ANAPHYLAXIS, cough clarithromycin [CLARITHROMYCIN] Allergy (Intermediate, Verified 12/16/24 14:16) CONFUSION, sores on tongue, dry mouth simvastatin [SIMVASTATIN] Allergy (Mild, Verified 12/16/24 14:16) DRY THROAT, achy, confusion Medication List - Last Reconciled 12/16/24 by Anabella Gómez LPN acetaminophen (Tylenol Extra Strength) 500 mg PO Q6H PRN allopurinol 100 mg PO DAILY amlodipine 5 mg PO DAILY atorvastatin 40 mg PO DAILY bisacodyl 5 mg PO DAILY PRN clopidogrel (Plavix) 75 mg PO DAILY [CMF Bone Stimulator As directed] folic acid 1 mg PO DAILY gabapentin mg PO ibuprofen 800 mg PO Q8H PRN lactulose 20 grams (30 mL) PO QID PRN lidocaine 5% 1 patch topical DAILY meclizine 50 mg (2 x 25 mg) PO DAILY meloxicam mg PO DAILY methocarbamol 750 mg PO QID PRN methotrexate sodium 15 mg (6 x 2.5 mg) PO QWEEK metoprolol succinate ER 25 mg PO DAILY montelukast 10 mg PO BEDTIME multivitamin 1 tab PO DAILY omeprazole 20 mg PO DAILY@0630 pantoprazole mg PO DAILY prednisone 2 mg (2 x 1 mg) PO DAILY ropinirole 3 mg PO DAILY@1800 tramadol 50 mg PO TID PRN vitamin B complex (B Complex-Vitamin B12 tablet) 1 tab PO DAILY HPI Comments Details: Ellie Falcon) is in my office today to discuss the results of the bilateral sacroiliac joint injection. She reported that before the procedure her pain was 6 to 7/10. Immediately after procedure her pain was 1/10. 2 hours after procedure her pain was 2/10. 3 hours after procedure her pain was 2/10. 4 hours after the procedure her pain was 3/10. At the end of the 5th our her pain come back with vengeance. I offered this patient cure on X PNS to treat her lower back pain. This procedure Ms. Better than sacroiliac joint steroid injections because this patient is elderly suffers from osteoporosis and could respond with diabetes on steroid injections. She needs to go for psychological evaluation. [employer] brochure was given to the patient. Prior: She reports severe pain in the lower lumbar spine. She reports pain exacerbates with flexing forward and lifting things from the ground. On physical examination attention was attracted to signs of sacroiliitis. In the past she received from me diagnostic sacroiliac joint injection with 60% pain improvement. Now she reports severe pain 10/10 today, I feel like I have to perform again diagnostic sacroiliac joint injection. This patient was diagnose recently with L1 compression fracture. There is widespread diffuse osteopenia on her x-rays well. Therefore injection of the steroids will not be a good idea, however we can try peripheral nerve stimulation sprint versus peripheral nerve sprint stimulation cure on X. In regarding of her or diagnostic medial branch block she reported significant pain relieve on the left side immediately after the injection however she reported pain aggravation on the right side due to injection immediately after injection.? However on bilateral sacroiliac joint diagnostic injection on 12/13/2022 she reported 50-60% pain improvement after the injection.? The pain of this patient is most likely multifactorial.? She has significant rheumatoid arthritis which effects her shoulder joints her lumbar spine as well as her sacroiliac joints.? I offered her to perform bilateral sacroiliac joint injection therapeutic this time.? I will schedule this procedure without sedation.? She has an appointment with Dr. Guidry for evaluation of her shoulder pain.? Because of her severe osteopenia I would not recommend steroid injections for this patient. [facility] Medical History Pre-op chest exam Pre-op examination Meniere disease Transient ischemic attack (TIA) Osteoarthritis of shoulders, bilateral Rheumatoid arthritis Osteoarthritis of carpometacarpal (CMC) joint of right thumb Overweight (BMI 25.0-29.9) High cholesterol Hypertension Thrush, oral Nondisplaced fracture of fifth metatarsal bone, left foot, subsequent encounter for fracture with nonunion Seropositive rheumatoid arthritis Fracture of 5th metatarsal Fracture of fifth metatarsal bone of right foot Polymyalgia rheumatica Anxiety and depression Osteoarthritis Lumbar degenerative disc disease Osteoporosis Gout Restless leg syndrome Hypergammaglobulinemia GERD (gastroesophageal reflux disease) Seizure disorder Hypertension Hypercholesterolemia Asthma Peripheral neuropathy Rheumatoid arthritis Surgical History Corneal transplant status History of arthroplasty of right hip History of total abdominal hysterectomy History of corneal transplant H/O left knee surgery History of open reduction and internal fixation (ORIF) procedure History of cholecystectomy History of appendectomy Family History Father CVD (cardiovascular disease) Mother No problems noted. Social History (Updated 11/07/24 @ 11:40 by FREDIS Machuca) Household Members: Significant Other Household Members Other:: parter Housing: House Do you presently have visiting nurse or other home services: No Alcohol intake: current Alcohol intake frequency: holidays/special occasions only Alcohol type: wine Comment: patient uses call light appropriately Patient Tobacco Use Status: Never used Tobacco e-Cigarette/Vaping Use: Never Used Second Hand Smoke Exposure: No Advance Directives Date on File: 07/11/23 service: No Current occupational status: retired Cognitive needs: Yes (walker) Hearing needs: Yes Vision needs: Yes Review of Systems Const All systems reviewed & are unremarkable except as noted in HPI and below Physical Exam Vital Signs: Last Vital Signs Pulse 104 H 12/16/24 14:14 Resp 16 12/16/24 14:14 BP 176/75 H 12/16/24 14:14 Pulse Ox 97 12/16/24 14:14 Oxygen Delivery Method Room Air 12/16/24 14:14 BMI result Body Mass Index 27.0 Const General: cooperative, comfortable and no acute distress Nutritional Appearance: well nourished Orientation/consciousness: patient oriented x3 Limitations: physical limitations Chest Chest palpation & inspection: normal inspection of the chest Resp Effort & Inspection: normal respiratory effort, able to speak in complete sentences, normal respiratory pattern, no audible wheezes, no cough, respiratory effort not decreased, no grunting and not labored Cardio Jugular venous distension: no JVD GI Inspection: Yes normal to inspection Back/Spine/Pelvis Other: Tenderness on palpation in paraspinal spinal region of lumbar spine.. Danial test is negative bilaterally however pelvis compression test, thigh thrust test, Gaenslen test positive bilaterally. Fourteen finger test is positive bilaterally more on the left. Neuro General: patient oriented x3 Assessment & Plan Assessment & Plan (1) Rheumatoid arthritis: Code(s): M06.9 - Rheumatoid arthritis, unspecified Category: Medical (2) Spondylosis of lumbar spine: Code(s): M47.816 - Spondylosis without myelopathy or radiculopathy, lumbar region Category: Medical (3) Sacroiliitis: Code(s): M46.1 - Sacroiliitis, not elsewhere classified Category: Medical (4) Pain of both sacroiliac joints: Code(s): M53.3 - Sacrococcygeal disorders, not elsewhere classified Category: Medical (5) Chronic pain syndrome: Code(s): G89.4 - Chronic pain syndrome Category: Medical (6) Sacroiliac joint dysfunction of both sides: Code(s): M53.3 - Sacrococcygeal disorders, not elsewhere classified Category: Medical (7) Compression fracture of L1 lumbar vertebra: Comment: indeterminate age Code(s): S32.010A - Wedge compression fracture of first lumbar vertebra, initial encounter for closed fracture Category: Medical Plan Medial branch block injection on 12/06/2022 resulted in profound pain relieve on the left side however significant aggravation of the pain on the right side. Sacroiliac joint injection resulted in 50-60% pain improvement on bilateral pain. Repeats diagnostic sacroiliac joint injection resulted in 60-70% pain improvement. Curonix PNS was discussed with the patient. I believe for this patient who is 84 years old and with osteoporosis peripheral nerve stimulation is better than continue steroid injection into sacroiliac joints. I explained to her trial of peripheral nerve stimulation. I explained to her the need to go for psychological evaluation. [employer] brochure was given to her. This patient is suffering from seropositive rheumatoid arthritis and she is under care of Dr. Pinto receiving DMARDS. Coding Level of Care Code Est Pt Level 3 (96040) Diagnoses Rheumatoid arthritis M06.9 Spondylosis of lumbar spine M47.816 Sacroiliitis M46.1 Pain of both sacroiliac joints M53.3 Chronic pain syndrome G89.4 Sacroiliac joint dysfunction of both sides M53.3 Compression fracture of L1 lumbar vertebra S32.010A
[2024-12-16 14:14] VITALS: BP 176/75; PULSE 104; RESP 16; O2SAT 97; BMI 27.0
== END 2024-12-16 14:26 | disposition home or self-care (01) ==
PROVIDERS: PCP Internal Medicine; Visit Provider Anesthesiology
DX: M06.9 Rheumatoid arthritis, unspecified (principal); M47.816 Spondylosis without myelopathy or radiculopathy, lumbar region; M46.1 Sacroiliitis, not elsewhere classified; M53.3 Sacrococcygeal disorders, not elsewhere classified; G89.4 Chronic pain syndrome; S32.010A Wedge compression fracture of first lumbar vertebra, initial encounter for closed fracture
CPT/HCPCS: 99213

== ENCOUNTER → 2024-12-16 14:12 | Outpatient (BNVA) | payer MEDICARE, OTHER, SELFPAY | PROVIDERS: PCP Internal Medicine; Visit Provider Anesthesiology | DX: S32.010D Wedge compression fracture of first lumbar vertebra, subsequent encounter for fracture with routine healing (principal); M06.9 Rheumatoid arthritis, unspecified; M47.816 Spondylosis without myelopathy or radiculopathy, lumbar region; M46.1 Sacroiliitis, not elsewhere classified; M53.3 Sacrococcygeal disorders, not elsewhere classified; G89.4 Chronic pain syndrome | CPT/HCPCS: 99212 ==

== ENCOUNTER 2025-01-29 15:24 | Outpatient (AMB) | payer MEDICARE, OTHER, SELFPAY ==
--- NOTE | 2025-01-29 15:34 | MHC.PC.OV ---
Vital Signs 01/29/25 15:35 Height 5 ft 6 in Weight 160 lb 2 oz BMI 25.8 BP 120/76 Blood Pressure Location Lt brachial Position Sitting Pulse 70 Pulse Source Pulse Oximeter Temp 97.1 F Temp Source Temporal Artery Scan Pulse Oximetry (%) 96 Oxygen Delivery Method Room Air Intake Visit Reasons: (L) hip pain 08/15 Intake Note: Patient is here to follow up on Left hip pain. Dance Instructor Required: No Classification And Treatment Director: Not Required per policy Accompanied by: Self / Same As Patient Allergies alendronate sodium [From FOSAMAX] Allergy (Severe, Verified 01/29/25 15:46) ANAPHYLAXIS lisinopril [LISINOPRIL] Allergy (Severe, Verified 01/29/25 15:46) ANAPHYLAXIS, cough clarithromycin [CLARITHROMYCIN] Allergy (Intermediate, Verified 01/29/25 15:46) CONFUSION, sores on tongue, dry mouth simvastatin [SIMVASTATIN] Allergy (Mild, Verified 01/29/25 15:46) DRY THROAT, achy, confusion Medication List - Last Reconciled 01/29/25 by Ning Griffiths PA-C acetaminophen (Tylenol Extra Strength) 500 mg PO Q6H PRN allopurinol 100 mg PO DAILY amlodipine 5 mg PO DAILY atorvastatin 40 mg PO DAILY bisacodyl 5 mg PO DAILY PRN clopidogrel (Plavix) 75 mg PO DAILY [CMF Bone Stimulator As directed] folic acid 1 mg PO DAILY gabapentin mg PO ibuprofen 800 mg PO Q8H PRN lactulose 20 grams (30 mL) PO QID PRN lidocaine 5% 1 patch topical DAILY meclizine 50 mg (2 x 25 mg) PO DAILY meloxicam 15 mg PO DAILY methocarbamol 750 mg PO QID PRN methotrexate sodium 15 mg (6 x 2.5 mg) PO QWEEK metoprolol succinate ER 25 mg PO DAILY montelukast 10 mg PO BEDTIME multivitamin 1 tab PO DAILY omeprazole 20 mg PO DAILY@0630 pantoprazole 20 mg PO DAILY prednisone 2 mg (2 x 1 mg) PO DAILY ropinirole 3 mg PO DAILY@1800 tramadol 50 mg PO Q6-8H PRN vitamin B complex (B Complex-Vitamin B12 tablet) 1 tab PO DAILY Tobacco use date assessed: 01/29/25 Fall risk assessment: No Falls in past year Last assessed Fall Risk: 01/29/25 Dental Screening Dental Screen Date: 11/07/24 HPI (L) hip pain 08/15 HPI Details 84-year-old female with past medical history of asthma, hypercholesterolemia, hypertension, GERD, osteoporosis, rheumatoid arthritis, polymyalgia rheumatica and generalized anxiety disorder last seen by Dr. Salomon 12/2024 coming in for acute problem. The patient has experienced severe and ongoing pain for four months, predominantly affecting her left hip, tailbone, groin, and the base of her spine. Pain severity restricts daily activities, rendering tasks like making toast significantly painful. Increasing pain correlated with activity, particularly walking, and worsened over months. Tramadol medication provides minimal relief, with ineffectiveness noted despite dosing. The patient's past incident includes a fall 40 years ago, with no recent falls reported. Pain significantly affects lifestyle, necessitating home confinement and limiting mobility. Discussions for a transcutaneous electrical nerve stimulation (TENS) implant in her thigh are underway, with no orthopedic consultations yet pursued for hip replacement consideration. [facility] Medical History Pre-op chest exam Pre-op examination Meniere disease Transient ischemic attack (TIA) Osteoarthritis of shoulders, bilateral Rheumatoid arthritis Osteoarthritis of carpometacarpal (CMC) joint of right thumb Overweight (BMI 25.0-29.9) High cholesterol Hypertension Thrush, oral Nondisplaced fracture of fifth metatarsal bone, left foot, subsequent encounter for fracture with nonunion Seropositive rheumatoid arthritis Fracture of 5th metatarsal Fracture of fifth metatarsal bone of right foot Polymyalgia rheumatica Anxiety and depression Osteoarthritis Lumbar degenerative disc disease Osteoporosis Gout Restless leg syndrome Hypergammaglobulinemia GERD (gastroesophageal reflux disease) Seizure disorder Hypertension Hypercholesterolemia Asthma Peripheral neuropathy Rheumatoid arthritis Surgical History Corneal transplant status History of arthroplasty of right hip History of total abdominal hysterectomy History of corneal transplant H/O left knee surgery History of open reduction and internal fixation (ORIF) procedure History of cholecystectomy History of appendectomy Family History Father CVD (cardiovascular disease) Mother No problems noted. Social History Household Members: Significant Other Household Members Other:: parter Housing: House Do you presently have visiting nurse or other home services: No Alcohol intake: current Alcohol intake frequency: holidays/special occasions only Alcohol type: wine Comment: patient uses call light appropriately Patient Tobacco Use Status: Never used Tobacco e-Cigarette/Vaping Use: Never Used Second Hand Smoke Exposure: No Advance Directives Date on File: 07/11/23 service: No Current occupational status: retired Cognitive needs: Yes (walker) Hearing needs: Yes Vision needs: Yes Questionnaire Thrive Questionnaire Date Thrive assessed: 11/07/24 LIYA-7 AMB Questionnaire LIYA-7 Date LIYA - 7 assessed: 11/07/24 Source: Developed by Drs. Montana Salmon, Annalise Muse, Chris Montana and colleagues, with an educational shiela from [employer]. Review of Systems Const Denies body aches, Denies chills, Denies fever(s), Denies headache(s) and Denies poor appetite Eyes Reports no additional complaints ENT Denies dysphagia, Denies dizziness, Denies headache(s) and Denies odynophagia Card Denies chest pain, Denies syncope, Denies edema, Denies irregular heart rhythm, Denies lightheadedness and Denies dyspnea Resp Denies cough and Denies dyspnea GI Denies abdominal pain, Denies constipation, Denies dysphagia, Denies diarrhea, Denies nausea, Denies odynophagia and Denies vomiting Reports no additional complaints Musc Reports no additional complaints and Denies abnormal gait Skin/Breast Reports system reviewed and no additional complaints, except as documented Neuro Denies abnormal gait, Denies dizziness, Denies syncope and Denies headache(s) Psych Reports no additional complaints Physical exam (Primary Care) Vital Signs: Last Vital Signs Temp 97.1 F 01/29/25 15:35 Pulse 70 01/29/25 15:35 BP 120/76 01/29/25 15:35 Pulse Ox 96 01/29/25 15:35 Oxygen Delivery Method Room Air 01/29/25 15:35 BMI result Body Mass Index 25.8 Tobacco/Smoking Status: Tobacco use Status Tobacco use date assessed 01/29/25 01/29/25 15:42 Patient Tobacco Use Status Never used Tobacco 01/29/25 15:42 e-Cigarette/Vaping Use Never Used 03/26/25 15:42 Thrive Assessment: Date of Thrive Assessment Date Thrive assessed 11/07/24 01/29/25 15:42 Const Other: ambulates with walker General: cooperative, healthy appearing, comfortable and no acute distress Orientation/consciousness: patient oriented x3 HENMT Head: Yes normocephalic Ears: hearing grossly normal bilaterally General nose exam: Normal external nose present Eyes General: appearance normal, both eyes and all related structures Conjunctivae: conjunctivae normal Neck Neck: Yes full ROM and Yes no lymphadenopathy Resp Effort & Inspection: normal respiratory effort Auscultation: clear to auscultation bilaterally, no crackles, no rales, no rhonchi and no wheezes Cardio Rate: regular rate Rhythm: regular rhythm Skin General skin exam: no rashes or lesions noted Neuro General: patient oriented x3 Gait exam (Neuro): Normal gait present Extrem General: Yes normal to inspection, Yes full ROM and No edema Psych Affect: normal affect Attitude: cooperative Insight: Good insight present (Psych) Judgement: Good judgement present (Psych) Coding Level of Care Code Est Pt Level 3 (06960) Diagnoses Sacroiliac joint dysfunction of both sides M53.3 Assessment & Plan Assessment & Plan (1) Sacroiliac joint dysfunction of both sides: Code(s): M53.3 - Sacrococcygeal disorders, not elsewhere classified Category: Medical Plan: The focus is to address the patient's chronic pain, with procedures like a TENS unit being considered to manage her discomfort more effectively. Given the decreasing efficacy of tramadol, a reevaluation of her pain management regimen is crucial. Discussions about alternate medications or dosage adjustments should be explored. Ongoing follow-up with her visiting nurse for regular updates and assistance is hebert to her management. Plan to add muscle relaxer to medication regimen however did discuss with patient's may cause excessive drowsiness and to use in moderation and sparingly. Also advised patient she may increase her tramadol for 10/10 pain to 100 mg once daily. Plan This note was constructed using voice recognition software. While every effort has been made to ensure accuracy and food and beverage assistant, still areas may have been included sometimes these areas may affect the content or meeting of the given symptoms. Total time spent caring for the patient today was 20 minutes. This includes time spent before the visit reviewing the chart, time spent during the visit, and time spent after the visit and documentation. Patient was informed and verbally consented to the use of an ambient scribe for clinic note documentation during this visit. Medications: Refilled methocarbamol 750 mg PO QID PRN 20 tabs 0RF pain
[2025-01-29 15:35] VITALS: BP 120/76; PULSE 70; TEMP 36.2; O2SAT 96; BMI 25.8
--- OUTSIDE RECORDS SUMMARY | 2025-01-29 18:28 | XMS_ITS | Encounter Summary ---
Author Organization [facility] Address [address] [place] [address] Care Team Providers Care Cartography Professor Name Role Phone Unavailable Primary Care Provider Unavailabl e Encounter Details Date Type Department Care Team (Late st Contact Info) Description 10/04/2024 Lab Requisition [facility] - Main Lab [address] [place] [address] Angelo Kasper MD [address] [place] [address] Encounter for other general examination Social History Tobacco Use Types Packs/Day Years Used Date Smoking Tobacco: Never Assessed Comments Unknown Sex and Gender Information Value Date Recorded Sex Assigned at Not on file Legal Sex Female 2:39 PM EST Gender Identity Not on file Sexual Orientation [...] EST Angelo Kasper MD LAB BLOOD ORDERABLES Final Res ult [facility] [address] [place] [address], [place] [phone] documented in this encounter Visit Diagnoses Diagnosis Encounter for other general examination documented in this encounter
--- OUTSIDE RECORDS SUMMARY | 2025-01-29 18:28 | XMS_ITS | Encounter Summary ---
Author Organization [facility] Address [address] [place] [address] Care Team Providers Care Hosiery Pairer Name Role Phone Unavailable Primary Care Provider Unavailabl e Encounter Details Date Type Department Care Team (Late st Contact Info) Description 10/11/2024 Lab Requisition [facility] Lab [address] [facility] [place] [address] Angelo Kasper MD [address] [place] [address] Encounter for other general examination Social History [...] mmol/L LAB CHEMISTRY METHOD 10/11/2024 1:13 PM EST [facility] Potassium 4.0 3.5 - 5.5 mmol/L LAB CHEMISTRY METHOD 10/11/2024 1:13 PM EST [facility] Chloride 102 96 - 110 mmol/L LAB CHEMISTRY METHOD 10/11/2024 1:13 PM EST [facility] CO2 23 21 - 32 mmol/L LAB CHEMISTRY METHOD 10/11/2024 1:13 PM EST [facility] Anion Gap 9 3 - [...] 10/11/2024 1:13 PM [facility] eGFR 56(L) >=60 mL/min/1. 73m2 LAB CHEMISTRY METHOD 10/11/2024 1:13 PM [facility] Comment:Calculation based on [...] 7:25 AM EST 10/11/2024 11:51 AM EST us Angelo Kasper MD LAB BLOOD ORDERABLES Final Res ult [facility] [address] [place] [address], documented in this encounter Visit Diagnoses Diagnosis Encounter for other general examination documented in this encounter
--- OUTSIDE RECORDS SUMMARY | 2025-01-29 18:28 | XMS_ITS | Encounter Summary ---
Author Organization [employer] [facility] [place] Address [address] [place] [address] Care Team Providers Care Mechanical Design Technician Name Role Phone Unavailable Primary Care Provider Unavailabl e Encounter Details Date Type Department Care Team (Late st Contact Info) Description 10/04/2024 Lab Requisition [facility] - Main Lab 299 [facility] [place] [address] Angelo Kasper MD [address] [place] [address] [phone] Encounter for other general examination Social History [...] microscopic and culture (10/04/2024 4:00 AM EST) [facility] [place] Urine 1.018 1.003 - 1.030 LAB URINALYSIS - AUTOMATED METHOD 10/04/2024 9:55 AM [facility] pH, Urine 7.0 5.0 [...] 4:00 AM EST 10/04/2024 9:37 AM EST us Angelo Kasper MD LAB URINE ORDERABLES Final Res ult [facility] [address] [place] [address], [place] [phone] * Navarro urine culture tube (10/04/2024 4:00 AM EST) Extra Tube Hold for add-ons. 10/04/2024 11:01 AM EST [facility] Comment:Auto resulted. Urine Urine specimen obtained by clean catch procedure / Unknown Non-blood Collection / Unknown 10/04/2024 4:00 AM EST 10/04/2024 9:37 AM EST us Angelo Kasper MD LAB URINE ORDERABLES Final Res ult [facility] [address] [place] [address], [place] [phone] * Sodium, urine, random (10/04/2024 4:00 AM EST) Sodium, Ur 87 mmol/L LAB CHEMISTRY METHOD 10/04/2024 10:46 AM EST [facility] Urine Urine specimen obtained by clean catch procedure / Unknown Non-blood Collection / Unknown 10/04/2024 4:00 AM EST 10/04/2024 9:37 AM EST us Angelo Kasper MD LAB URINE ORDERABLES Final Res ult [facility] [address] [place] [address], [place] [phone] * Osmolality, urine (10/04/2024 4:00 AM EST) Osmolality, Urine 475 300 - 1,300 mOsm/kg LAB CHEMISTRY METHOD 10/04/2024 10:45 AM EST [facility] Urine Urine specimen obtained by clean catch procedure / Unknown Non-blood Collection / Unknown 10/04/2024 4:00 AM EST 10/04/2024 9:37 AM EST us Angelo Kasper MD LAB URINE ORDERABLES Final Res ult [facility] ([facility] [address] [place] [address], documented in this encounter Visit Diagnoses Diagnosis Encounter for other general examination documented in this encounter
--- OUTSIDE RECORDS SUMMARY | 2025-01-29 18:28 | XMS_ITS | Encounter Summary ---
Author Organization [employer] [facility] Address [address] [place] [address] Care Team Providers Care General Farm Hand Name Role Phone Unavailable Primary Care Provider Unavailabl e Encounter Details Date Type Department Care Team (Late st Contact Info) Description 10/05/2024 Lab Requisition [facility] - Main Lab [address] Replaced By [facility] [employer] [place] [address] Angelo Kasper MD [address] [place] [address] Encounter for other general examination Social History [...] LAB CHEMISTRY METHOD 10/05/2024 11:[address] [facility] Potassium 4.1 3.5 - 5.5 mmol/L LAB CHEMISTRY METHOD 10/05/2024 11:[address] [facility] Chloride 93(L) 96 - 110 mmol/L LAB CHEMISTRY METHOD 10/05/2024 11:[address] [facility] CO2 27 21 - 32 mmol/L LAB CHEMISTRY METHOD 10/05/2024 11:[address] [facility] Anion Gap 6 3 - 11 LAB CHEMISTRY METHOD 10/05/2024 11:02 AM [facility] Glucose 70 70 - 100 mg/dL LAB CHEMISTRY METHOD 10/05/2024 11:02 AM [facility] BUN 11 5 - 25 mg/dL LAB CHEMISTRY METHOD 10/05/2024 11:02 AM [facility] Creatinine 0.71 0.50 - 1.10 mg/dL LAB CHEMISTRY METHOD 10/05/2024 11:02 AM [facility] eGFR 83 >=60 mL/min/1. 73m2 LAB CHEMISTRY METHOD 10/05/2024 11:02 AM [facility] Comment:Calculation based on the??Chronic Kidney Disease Epidemiology Collaboration (CKD-EPI) equation refit??without adjustment for race. BUN/Creatinine Ratio 15.5 LAB CHEMISTRY METHOD 10/05/2024 11:02 AM [facility] Calcium 8.6 8.5 - 10.5 mg/dL LAB CHEMISTRY METHOD 10/05/2024 11:02 AM [facility] Blood Venous blood specimen / Unknown Venipuncture / Unknown 10/05/2024 6:03 AM EST 10/05/2024 9:38 AM EST us Angelo Kasper MD LAB BLOOD ORDERABLES Final Res ult [facility] [address] [place] [address], [place] [phone] documented in this encounter Visit Diagnoses Diagnosis Encounter for other general examination documented in this encounter
--- OUTSIDE RECORDS SUMMARY | 2025-01-29 18:28 | XMS_ITS | Encounter Summary ---
Author Organization [facility] Address [address] [place] [address] Care Team Providers Care Cell Changer Name Role Phone Unavailable Primary Care Provider Unavailabl e Encounter Details Date Type Department Care Team (Late st Contact Info) Description 10/03/2024 Lab Requisition [facility] - Main Lab [address] [place] [address] Angelo Kasper MD [address] [place] [address] Encounter for other general examination Social History [...] AM EST) WBC 4.2(L) 4.8 - 10.8 [facility] HEMETOLOGY METHOD 10/03/2024 11:02 AM EST [facility] RBC 4.00 3.80 - 4.80 M[facility] HEMETOLOGY METHOD 10/03/2024 11:02 AM [facility] Hemoglobin 12.0 11.5 - 16.0 [...] 6:25 AM EST 10/03/2024 9:48 AM EST us Angelo Kasper MD LAB BLOOD ORDERABLES Final Res ult [facility] [address] [place] [address], * (ABNORMAL) Basic metabolic panel (10/03/2024 6:25 [...] 6:25 AM EST 10/03/2024 9:48 AM EST us Angelo Kasper MD LAB BLOOD ORDERABLES Final Res ult [facility] ([facility]) [facility] [address] [place] [address], documented in this encounter Visit Diagnoses Diagnosis Encounter for other general examination documented in this encounter
--- OUTSIDE RECORDS SUMMARY | 2025-01-29 18:28 | XMS_ITS | Encounter Summary ---
Author Organization [employer] [facility] Address [address] [place] [address] Care Team Providers Care Rubber Curer Name Role Phone Unavailable Primary Care Provider Unavailabl e Encounter Details Date Type Department Care Team (Late st Contact Info) Description 10/09/2024 Lab Requisition [facility] [address] [place] [address] Angelo Kasper MD [address] [place] [address] Encounter for other general examination Social History [...] mmol/L LAB CHEMISTRY METHOD 10/09/2024 12:04 PM EST [facility] Potassium 4.1 3.5 - 5.5 mmol/L LAB CHEMISTRY METHOD 10/09/2024 12:04 PM EST [facility] Chloride 100 96 - 110 mmol/L LAB CHEMISTRY METHOD 10/09/2024 12:04 PM EST [facility] CO2 26 21 - 32 mmol/L LAB CHEMISTRY METHOD 10/09/2024 12:04 PM EST [facility] Anion Gap 6 3 - 11 LAB CHEMISTRY METHOD 10/09/2024 12:04 PM [facility] Glucose 62(L) 70 - 100 mg/dL LAB CHEMISTRY METHOD 10/09/2024 12:04 PM [facility] BUN 12 5 - 25 mg/dL LAB CHEMISTRY METHOD 10/09/2024 12:04 PM [facility] Creatinine 0.71 0.50 - 1.10 mg/dL LAB CHEMISTRY METHOD 10/09/2024 12:04 PM [facility] eGFR 83 >=60 mL/min/1. 73m2 LAB CHEMISTRY METHOD 10/09/2024 12:04 PM [facility] Comment:Calculation based on the??Chronic Kidney Disease Epidemiology Collaboration (CKD-EPI) equation refit??without adjustment for race. BUN/Creatinine Ratio 16.9 LAB CHEMISTRY METHOD 10/09/2024 12:04 PM [facility] Calcium 8.8 8.5 - 10.5 mg/dL LAB CHEMISTRY METHOD 10/09/2024 12:04 PM [facility] Blood Venous blood specimen / Unknown Venipuncture / Unknown 10/09/2024 7:03 AM EST 10/09/2024 10:19 AM EST us Angelo Kasper MD LAB BLOOD ORDERABLES Final Res ult [facility] [address] [place] [address], [place] [phone] documented in this encounter Visit Diagnoses Diagnosis Encounter for other general examination documented in this encounter
--- OUTSIDE RECORDS SUMMARY | 2025-01-29 18:28 | XMS_ITS | Encounter Summary ---
Author Organization [facility] Address [address] [place] [address] Care Team Providers Care Supervisor Sewer System Name Role Phone Unavailable Primary Care Provider Unavailabl e Encounter Details Date Type Department Care Team (Late st Contact Info) Description 10/06/2024 Lab Requisition [facility] - Main Lab [address] [facility] [place] [address] Angelo Kasper MD [address] [place] [phone] Encounter for other general examination Social History [...] LAB CHEMISTRY METHOD 10/06/2024 9:33 AM EST [facility] Blood Venous blood specimen / Unknown Venipuncture / Unknown 10/06/2024 5:48 AM EST 10/06/2024 6:48 AM EST Narrative [facility] - 10/06/2024 9:33 AM EST [facility] ?? 8 AM SPEC: ??5.0-23.0 mcg/dL ?? 4 PM SPEC: ??3.0-16.0 mcg/dL ?? 8 PM SPEC: ??<5.0 mcg/dL us Angelo Kasper MD LAB BLOOD ORDERABLES Final Res ult Performing Organization Address City/[facility]/ZIP Co de Phone Number [facility] [address] [place] [address], [place] [phone] * Thyroid stimulating hormone (10/06/2024 5:48 AM EST) [facility] TSH 2.14 0.40 - 4.00 mcIU/mL LAB CHEMISTRY METHOD 10/06/2024 8:28 AM EST [facility] Blood Venous blood specimen / Unknown Venipuncture / Unknown 10/06/2024 5:48 AM EST 10/06/2024 6:48 AM EST us Angelo Kasper MD LAB BLOOD ORDERABLES Final Res ult Performing Organization Address [facility]/ZIP Co de Phone Number [facility] [address] [place] [address], [place] [phone] * (ABNORMAL) Basic metabolic panel (10/06/2024 5:48 AM EST) [facility] Sodium 130(L) 133 - 145 mmol/L LAB CHEMISTRY METHOD 10/06/2024 7:23 AM EST [facility] Potassium 4.0 3.5 - 5.5 mmol/L LAB CHEMISTRY METHOD 10/06/2024 7:23 AM EST [facility] Chloride 98 96 - 110 mmol/L LAB CHEMISTRY METHOD 10/06/2024 7:23 AM EST [facility] CO2 26 21 - 32 mmol/L LAB CHEMISTRY METHOD 10/06/2024 7:23 AM EST [facility] Anion Gap 6 3 - 11 LAB CHEMISTRY METHOD 10/06/2024 7:23 AM [facility] Glucose 76 70 - 100 mg/dL LAB CHEMISTRY METHOD 10/06/2024 7:23 AM [facility] BUN 9 5 - 25 mg/dL LAB CHEMISTRY METHOD 10/06/2024 7:23 AM [facility] Creatinine 0.62 0.50 - 1.10 mg/dL LAB CHEMISTRY METHOD 10/06/2024 7:23 AM [facility] eGFR 87 >=60 mL/min/1. 73m2 LAB CHEMISTRY METHOD 10/06/2024 7:23 AM [facility] Comment:Calculation based on the??Chronic Kidney Disease Epidemiology Collaboration (CKD-EPI) equation refit??without adjustment for race. BUN/Creatinine Ratio 14.5 LAB CHEMISTRY METHOD 10/06/2024 7:23 AM [facility] Calcium 8.4(L) 8.5 - 10.5 mg/dL LAB CHEMISTRY METHOD 10/06/2024 7:23 AM [facility] Blood Venous blood specimen / Unknown Venipuncture / Unknown 10/06/2024 5:48 AM EST 10/06/2024 6:48 AM EST us Angelo Kasper MD LAB BLOOD ORDERABLES Final Res ult [facility] [address] [place] [address], documented in this encounter Visit Diagnoses Diagnosis Encounter for other general examination documented in this encounter
--- OUTSIDE RECORDS SUMMARY | 2025-01-29 18:28 | XMS_ITS | Clinical Summary ---
Author Organization [address] [facility] Address [address] [place] [address] Phone Care Team Providers Care Personal Care Home Administrator Name Role Phone Unavailable Primary Care Provider [...] DTaP,Tdap,and Td Vaccines (1 - Tdap) 1957 Pneumococcal Vaccine: 50+ Ye ars (1 of 1 - PCV) 1988 Zoster Vaccines (1 of 2) 1988 RSV Immunization Patients 60 + Years Old (1 - 1-dose 75+ series) 2013 COVID-19 Vaccine ( - 2023-2 5 season) 2024 Influenza Vaccine (#1) 2024 [...] patient's age to complete this topic Meningococcal B Vacine Aged Out No lo nger eligible based on patient's age to complete this topic RSV Immunization Patients Un angelica 20 months Aged Out No longer eligible b ased on patient's age to complete this topic Varicella Vaccines Aged Out No longer eligible based on patient's age to complete this topic
--- OUTSIDE RECORDS SUMMARY | 2025-01-29 18:28 | XMS_ITS | Encounter Summary ---
Author Organization [employer] [facility] Address [address] [place] [address] Care Team Providers Care Linux Systems Administrator Name Role Phone Unavailable Primary Care Provider Unavailabl e Encounter Details Date Type Department Care Team (Late st Contact Info) Description 09/29/2024 Lab Requisition [facility] - Main Lab [address] [place] [address] Angelo Kasper MD [address] [place] [address] Encounter for other general examination Social History [...] 4.8 - 10.8 K/mcL LAB HEMETOLOGY METHOD 09/29/2024 11:[address] [facility] RBC 4.10 3.80 - 4.80 M/mcL LAB HEMETOLOGY METHOD 09/29/2024 11:08 AM [facility] Hemoglobin 12.5 11.5 - 16.0 g/dL LAB HEMETOLOGY METHOD 09/29/2024 11:08 AM [facility] Hematocrit 39.9 35.0 - 47.0 % LAB HEMETOLOGY METHOD 09/29/2024 11:08 AM [facility] MCV 96.8 79.0 - 98.0 FL LAB HEMETOLOGY METHOD 09/29/2024 11:08 AM [facility] MCH 30.3 27.0 - 32.0 pcg LAB HEMETOLOGY METHOD 09/29/2024 11:08 AM [facility] MCHC 31.3(L) 32.0 - 37.0 g/dL LAB HEMETOLOGY METHOD 09/29/2024 11:08 AM [facility] RDW 14.0 11.0 - 15.0 % LAB HEMETOLOGY METHOD 09/29/2024 11:08 AM [facility] Platelets 293 130 - 400 K/mcL LAB HEMETOLOGY METHOD 09/29/2024 11:08 AM [facility] MPV 9.5 7.0 - 11.0 FL LAB HEMETOLOGY METHOD 09/29/2024 11:08 AM [facility] NRBC 0.0 <1.0 % LAB HEMETOLOGY METHOD 09/29/2024 11:08 AM [facility] NRBC Absolute 0.00 <0.10 K/mcL LAB HEMETOLOGY METHOD 09/29/2024 11:08 AM [facility] Neutrophils Relative 54.5 % LAB HEMETOLOGY METHOD 09/29/2024 11:08 AM [facility] Lymphocytes Relative 34.1 % LAB HEMETOLOGY METHOD 09/29/2024 11:08 AM [facility] Monocytes Relative 5.0 % LAB HEMETOLOGY METHOD 09/29/2024 11:08 AM [facility] Eosinophils Relative 4.3 % LAB HEMETOLOGY METHOD 09/29/2024 11:08 AM [facility] Basophils Relative 1.0 % LAB HEMETOLOGY METHOD 09/29/2024 11:08 AM [facility] Immature Granulocytes Relative 1.1 % LAB HEMETOLOGY METHOD 09/29/2024 11:08 AM [facility] Neutrophils Absolute 6.25 1.50 - 7.00 K/mcL LAB HEMETOLOGY METHOD 09/29/2024 11:08 AM [facility] Lymphocytes Absolute 3.93 1.00 - 5.00 K/mcL LAB HEMETOLOGY METHOD 09/29/2024 11:08 AM [facility] Monocytes Absolute 0.58 0.20 - 1.00 K/mcL LAB HEMETOLOGY METHOD 09/29/2024 11:08 AM [facility] Eosinophils Absolute 0.50 0.00 - 0.50 K/mcL LAB HEMETOLOGY METHOD 09/29/2024 11:08 AM [facility] Basophils Absolute 0.12 0.00 - 0.20 K/mcL LAB HEMETOLOGY METHOD 09/29/2024 11:08 AM [facility] Immature Granulocytes Absolute 0.13(H) 0.00 - 0.03 K/mcL LAB HEMETOLOGY METHOD 09/29/2024 11:08 AM [facility] Blood Venous blood specimen / Unknown Venipuncture / Unknown 09/29/2024 7:35 AM EST 09/29/2024 10:30 AM EST us Angelo Kasper MD LAB BLOOD ORDERABLES Final Res ult [facility] [address] [place] [address], [place] [phone] * Magnesium (09/29/2024 7:35 AM EST) [facility] Magnesium 2.1 1.9 - 2.6 mg/dL LAB CHEMISTRY METHOD 09/29/2024 11:09 AM EST [facility] Blood Venous blood specimen / Unknown Venipuncture / Unknown 09/29/2024 7:35 AM EST 09/29/2024 10:30 AM EST us Angelo Kasper MD LAB BLOOD ORDERABLES Final Res ult [facility] [address] [place] [address], [place] [phone] * (ABNORMAL) Comprehensive metabolic panel (09/29/2024 7:35 AM EST) [facility] Sodium 138 133 - 145 mmol/L LAB CHEMISTRY METHOD 09/29/2024 11:09 AM [facility] Potassium 4.8 3.5 - 5.5 mmol/L LAB CHEMISTRY METHOD 09/29/2024 11:09 AM [facility] Chloride 107 96 - 110 mmol/L LAB CHEMISTRY METHOD 09/29/2024 11:09 AM [facility] CO2 24 21 - 32 mmol/L LAB CHEMISTRY METHOD 09/29/2024 11:09 AM [facility] Anion Gap 7 3 - 11 LAB CHEMISTRY METHOD 09/29/2024 11:09 AM [facility] Glucose 75 70 - 100 mg/dL LAB CHEMISTRY METHOD 09/29/2024 11:09 AM [facility] BUN 16 5 - 25 mg/dL LAB CHEMISTRY METHOD 09/29/2024 11:09 AM [facility] Creatinine 0.79 0.50 - 1.10 mg/dL LAB CHEMISTRY METHOD 09/29/2024 11:09 AM [facility] eGFR 73 >=60 mL/min/1. 73m2 LAB CHEMISTRY METHOD 09/29/2024 11:09 AM [facility] Comment:Calculation based on the??Chronic Kidney Disease Epidemiology Collaboration (CKD-EPI) equation refit??without adjustment for race. BUN/Creatinine Ratio 20.3 LAB CHEMISTRY METHOD 09/29/2024 11:09 AM [facility] Calcium 9.3 8.5 - 10.5 mg/dL LAB CHEMISTRY METHOD 09/29/2024 11:09 AM [facility] AST (SGOT) 29 10 - 42 unit/L LAB CHEMISTRY METHOD 09/29/2024 11:09 AM [facility] ALT (SGPT) 33 10 - 60 unit/L LAB CHEMISTRY METHOD 09/29/2024 11:09 AM [facility] Alkaline Phosphatase 134(H) 42 - 121 unit/L LAB CHEMISTRY METHOD 09/29/2024 11:09 AM [facility] Total Protein 6.8 6.0 - 8.0 g/dL LAB CHEMISTRY METHOD 09/29/2024 11:09 AM [facility] Albumin 3.5 3.2 - 5.0 g/dL LAB CHEMISTRY METHOD 09/29/2024 11:09 AM [facility] Total Bilirubin 0.5 0.0 - 1.4 mg/dL LAB CHEMISTRY METHOD 09/29/2024 11:09 AM [facility] Blood Venous blood specimen / Unknown Venipuncture / Unknown 09/29/2024 7:35 AM EST 09/29/2024 10:30 AM EST us Angelo Kasper MD LAB BLOOD ORDERABLES Final Res ult [facility] [address] [place] [address], [place] [phone] documented in this encounter Visit Diagnoses Diagnosis Encounter for other general examination documented in this encounter
--- OUTSIDE RECORDS SUMMARY | 2025-01-29 18:28 | XMS_ITS | Encounter Summary ---
Author Organization [facility] Address [address] [place] [address] Care Team Providers Care Ssn/Ssbn Assistant Navigator Name Role Phone Unavailable Primary Care Provider Unavailabl e Encounter Details Date Type Department Care Team (Late st Contact Info) Description 09/30/2024 Lab Requisition [facility] - Main Lab [address] [place] [address] Angelo Kasper MD [address] [place] [address] [phone] Encounter for other general examination Social History [...] LAB HEMETOLOGY METHOD 09/30/2024 1:38 PM EST [facility] RBC 4.10 3.80 - 4.80 M/mcL LAB HEMETOLOGY METHOD 09/30/2024 1:38 PM EST [facility] Hemoglobin 12.4 11.5 - 16.0 g/dL LAB HEMETOLOGY METHOD 09/30/2024 1:38 PM EST [facility] Hematocrit 38.8 35.0 - 47.0 % LAB HEMETOLOGY METHOD 09/30/2024 1:38 PM [facility] MCV 95.1 79.0 - 98.0 FL LAB HEMETOLOGY METHOD 09/30/2024 1:38 PM [facility] MCH 30.4 27.0 - 32.0 pcg LAB HEMETOLOGY METHOD 09/30/2024 1:38 PM EST [facility] MCHC 32.0 32.0 - 37.0 g/dL LAB HEMETOLOGY METHOD 09/30/2024 1:38 PM [facility] RDW 14.1 11.0 - 15.0 % LAB HEMETOLOGY METHOD 09/30/2024 1:38 PM [facility] Platelets 279 130 - 400 K/mcL LAB HEMETOLOGY METHOD 09/30/2024 1:38 PM EST [facility] MPV 9.4 7.0 - 11.0 FL LAB HEMETOLOGY METHOD 09/30/2024 1:38 PM [facility] NRBC 0.0 <1.0 % LAB HEMETOLOGY METHOD 09/30/2024 1:38 PM [facility] NRBC Absolute 0.00 <0.10 K/mcL LAB HEMETOLOGY METHOD 09/30/2024 1:38 PM [facility] Blood Venous blood specimen / Unknown Venipuncture / Unknown 09/30/2024 7:07 AM EST 09/30/2024 1:00 PM EST us Angelo Kasper MD LAB BLOOD ORDERABLES Final Res ult [facility] [address] [place] [address], * (ABNORMAL) Basic metabolic panel (09/30/2024 7:07 AM EST) Sodium 135 133 - 145 mmol/L LAB CHEMISTRY METHOD 09/30/2024 4:17 PM [facility] Potassium 4.6 3.5 - 5.5 mmol/L LAB CHEMISTRY METHOD 09/30/2024 4:17 PM [facility] Chloride 103 96 - 110 mmol/L LAB CHEMISTRY METHOD 09/30/2024 4:17 PM [facility] CO2 25 21 - 32 mmol/L LAB CHEMISTRY METHOD 09/30/2024 4:17 PM [facility] Anion Gap 7 3 - 11 LAB CHEMISTRY METHOD 09/30/2024 4:17 PM [facility] Glucose 60(L) 70 - 100 mg/dL LAB CHEMISTRY METHOD 09/30/2024 4:17 PM [facility] BUN 20 5 - 25 mg/dL LAB CHEMISTRY METHOD 09/30/2024 4:17 PM [facility] Creatinine 0.82 0.50 - 1.10 mg/dL LAB CHEMISTRY METHOD 09/30/2024 4:17 PM [facility] eGFR 70 >=60 mL/min/1. 73m2 LAB CHEMISTRY METHOD 09/30/2024 4:17 PM [facility] Comment:Calculation based on the??Chronic Kidney Disease Epidemiology Collaboration (CKD-EPI) equation refit??without adjustment for race. BUN/Creatinine Ratio 24.4 LAB CHEMISTRY METHOD 09/30/2024 4:17 PM [facility] Calcium 9.8 8.5 - 10.5 mg/dL LAB CHEMISTRY METHOD 09/30/2024 4:17 PM [facility] Blood Venous blood specimen / Unknown Venipuncture / Unknown 09/30/2024 7:07 AM EST 09/30/2024 1:00 PM EST Angelo Kasper MD LAB BLOOD ORDERABLES Final Res ult [facility] [address] [place] [address], documented in this encounter Visit Diagnoses Diagnosis Encounter for other general examination documented in this encounter
--- OUTSIDE RECORDS SUMMARY | 2025-01-29 18:28 | XMS_ITS | Clinical Summary ---
Author Organization [facility] Address [address] [place] [address] Care Team Providers Care Tablet Making Machine Operator Helper Name Role Phone Unavailable Primary Care [...]
--- OUTSIDE RECORDS SUMMARY | 2025-01-29 18:28 | XMS_ITS | Encounter Summary ---
Author Organization [facility] Address [address] [place] [address] Care Team Providers Care Radio Performer Name Role Phone Unavailable Primary Care Provider Unavailabl e Encounter Details Date Type Department Care Team (Late st Contact Info) Description 10/07/2024 Lab Requisition [facility] Lab [address] [facility] [place] [address] Angelo Kasper MD [address] [place] [address] Encounter for other general examination Social History [...] LAB CHEMISTRY METHOD 10/07/2024 2:59 PM EST [facility] Potassium 4.2 3.5 - 5.5 mmol/L LAB CHEMISTRY METHOD 10/07/2024 2:59 PM EST [facility] Chloride 98 96 - 110 mmol/L LAB CHEMISTRY METHOD 10/07/2024 2:59 PM EST [facility] CO2 22 21 - 32 mmol/L LAB CHEMISTRY METHOD 10/07/2024 2:59 PM EST [facility] Anion Gap 10 3 - 11 LAB CHEMISTRY METHOD 10/07/2024 2:59 PM EST [facility] Glucose 63(L) 70 - 100 mg/dL LAB CHEMISTRY METHOD 10/07/2024 2:59 PM [facility] BUN 9 5 - 25 mg/dL LAB CHEMISTRY METHOD 10/07/2024 2:59 PM [facility] Creatinine 0.55 0.50 - 1.10 mg/dL LAB CHEMISTRY METHOD 10/07/2024 2:59 PM [facility] eGFR 89 >=60 mL/min/1. 73m2 LAB CHEMISTRY METHOD 10/07/2024 2:59 PM [facility] Comment:Calculation based on the??Chronic Kidney Disease Epidemiology Collaboration (CKD-EPI) equation refit??without adjustment for race. BUN/Creatinine Ratio 16.4 LAB CHEMISTRY METHOD 10/07/2024 2:59 PM [facility] Calcium 8.3(L) 8.5 - 10.5 mg/dL LAB CHEMISTRY METHOD 10/07/2024 2:59 PM [facility] Blood Venous blood specimen / Unknown 10/07/2024 7:28 AM EST 10/07/2024 12:05 PM EST us Angelo Kasper MD LAB BLOOD ORDERABLES Final Res ult [facility] [address] [place] [address], documented in this encounter Visit Diagnoses Diagnosis Encounter for other general examination documented in this encounter
== END 2025-01-29 16:01 | disposition home or self-care (01) ==
LOC: HO.HMCH 15:24
PROVIDERS: PCP Internal Medicine
DX: M53.3 Sacrococcygeal disorders, not elsewhere classified (principal)

== ENCOUNTER → 2025-01-29 15:24 | Outpatient (BNVA) | payer MEDICARE, OTHER, SELFPAY | PROVIDERS: PCP Internal Medicine | DX: M53.3 Sacrococcygeal disorders, not elsewhere classified (principal) | CPT/HCPCS: 99212 ==

== ENCOUNTER 2025-02-07 05:51 | Day surgery (SDC) | payer MEDICARE, OTHER, SELFPAY ==
--- OUTSIDE RECORDS SUMMARY | 2025-02-06 15:08 | XMS_ITS | Encounter Summary ---
Author Organization [facility] Address [address] [place] [address] Care Team Providers Care Laser Technician Name Role Phone Unavailable Primary Care Provider Unavailabl e Encounter Details Date Type Department Care Team (Late st Contact Info) Description 09/29/2024 Lab Requisition [facility] - Main Lab [address] [place] [address] Angelo Kasper MD [address] [place] [address] Encounter for other general examination Social History [...] LAB HEMETOLOGY METHOD 09/29/2024 11:08 AM EST [facility] RBC 4.10 3.80 - 4.80 M/mcL LAB HEMETOLOGY METHOD 09/29/2024 11:08 AM [facility] Hemoglobin 12.5 11.5 - 16.0 g/dL LAB HEMETOLOGY METHOD 09/29/2024 11:08 AM [facility] Hematocrit 39.9 35.0 - 47.0 % LAB HEMETOLOGY METHOD 09/29/2024 11:08 AM [facility] MCV 96.8 79.0 - 98.0 FL LAB HEMETOLOGY METHOD 09/29/2024 11:08 AM [facility] MCH 30.3 27.0 - 32.0 pcg LAB HEMETOLOGY METHOD 09/29/2024 11:08 AM [facility] MCHC 31.3(L) 32.0 - 37.0 g/dL LAB HEMETOLOGY METHOD 09/29/2024 11:08 AM [facility] RDW 14.0 11.0 - 15.0 % LAB HEMETOLOGY METHOD 09/29/2024 11:08 AM [facility] Platelets 293 130 - 400 K/mcL LAB HEMETOLOGY METHOD 09/29/2024 11:08 AM [facility] MPV 9.5 7.0 - 11.0 FL LAB HEMETOLOGY METHOD 09/29/2024 11:08 AM [facility] NRBC 0.0 <1.0 % LAB HEMETOLOGY METHOD 09/29/2024 11:08 AM [facility] NRBC Absolute 0.00 <0.10 K/mcL LAB HEMETOLOGY METHOD 09/29/2024 11:08 AM [facility] Neutrophils Relative 54.5 % LAB HEMETOLOGY METHOD 09/29/2024 11:08 AM [facility] Lymphocytes Relative 34.1 % LAB HEMETOLOGY METHOD 09/29/2024 11:08 AM [facility] Monocytes Relative 5.0 % LAB HEMETOLOGY METHOD 09/29/2024 11:08 AM [facility] Eosinophils Relative 4.3 % LAB HEMETOLOGY METHOD 09/29/2024 11:08 AM [facility] Basophils Relative 1.0 % LAB HEMETOLOGY METHOD 09/29/2024 11:08 AM [facility] Immature Granulocytes Relative 1.1 % LAB HEMETOLOGY METHOD 09/29/2024 11:08 AM [facility] Neutrophils Absolute 6.25 1.50 - 7.00 K/mcL LAB HEMETOLOGY METHOD 09/29/2024 11:08 AM [facility] Lymphocytes Absolute 3.93 1.00 - 5.00 K/mcL LAB HEMETOLOGY METHOD 09/29/2024 11:08 AM [facility] Monocytes Absolute 0.58 0.20 - 1.00 K/mcL LAB HEMETOLOGY METHOD 09/29/2024 11:08 AM [facility] Eosinophils Absolute 0.50 0.00 - 0.50 K/mcL LAB HEMETOLOGY METHOD 09/29/2024 11:08 AM [facility] Basophils Absolute 0.12 0.00 - 0.20 K/mcL LAB HEMETOLOGY METHOD 09/29/2024 11:08 AM [facility] Immature Granulocytes Absolute 0.13(H) 0.00 - 0.03 K/mcL LAB HEMETOLOGY METHOD 09/29/2024 11:08 AM [facility] Blood Venous blood specimen / Unknown Venipuncture / Unknown 09/29/2024 7:35 AM EST 09/29/2024 10:30 AM EST us Angelo Kasper MD LAB BLOOD ORDERABLES Final Res ult [facility] [address] [place] [address], [place] [phone] * Magnesium (09/29/2024 7:35 AM EST) [facility] Magnesium 2.1 1.9 - 2.6 mg/dL LAB CHEMISTRY METHOD 09/29/2024 11:09 AM EST [facility] Blood Venous blood specimen / Unknown Venipuncture / Unknown 09/29/2024 7:35 AM EST 09/29/2024 10:30 AM EST us Angelo Kasper MD LAB BLOOD ORDERABLES Final Res ult [facility] [address] [place] [address], [place] [phone] * (ABNORMAL) Comprehensive metabolic panel (09/29/2024 7:35 AM EST) [facility] Sodium 138 133 - 145 mmol/L LAB CHEMISTRY METHOD 09/29/2024 11:09 AM [facility] Potassium 4.8 3.5 - 5.5 mmol/L LAB CHEMISTRY METHOD 09/29/2024 11:09 AM [facility] Chloride 107 96 - 110 [...] 09/29/2024 11:09 AM [facility] Total Bilirubin 0.5 0.0 - 1.4 mg/dL LAB CHEMISTRY METHOD 09/29/2024 11:09 AM [facility] Blood Venous blood specimen / Unknown Venipuncture / Unknown 09/29/2024 7:35 AM EST 09/29/2024 10:30 AM EST us Angelo Kasper MD LAB BLOOD ORDERABLES Final Res ult [facility] [address] [place] [address], [place] [phone] documented in this encounter Visit Diagnoses Diagnosis Encounter for other general examination documented in this encounter
--- OUTSIDE RECORDS SUMMARY | 2025-02-06 15:08 | XMS_ITS | Encounter Summary ---
Author [facility] Address [address] [place] [address] Care Team Providers Care Reordering Clerk Name Role Phone Unavailable Primary Care Provider Unavailabl e Encounter Details Date Type Department Care Team (Late st Contact Info) Description 10/06/2024 Lab Requisition [facility] - Main Lab [address] [facility] [email or web address] [address] Angelo Kasper MD [address] [place] [phone] Encounter for other general examination Social History [...] LAB CHEMISTRY METHOD 10/06/2024 9:33 AM EST [facility] Blood Venous blood specimen / Unknown Venipuncture / Unknown 10/06/2024 5:48 AM EST 10/06/2024 6:48 AM EST Narrative [facility] - 10/06/2024 9:33 AM EST [facility] ?? 8 AM SPEC: ??5.0-23.0 mcg/dL ?? 4 PM SPEC: ??3.0-16.0 mcg/dL ?? 8 PM SPEC: ??<5.0 mcg/dL us Angelo Kasper MD LAB BLOOD ORDERABLES Final Res ult Performing Organization Address City/[facility]/ZIP Co de Phone Number [facility] [address] [place] [address], [place] [phone] * Thyroid stimulating hormone (10/06/2024 5:48 AM EST) [facility] TSH 2.14 0.40 - 4.00 mcIU/mL LAB CHEMISTRY METHOD 10/06/2024 8:28 AM EST [facility] Blood Venous blood specimen / Unknown Venipuncture / Unknown 10/06/2024 5:48 AM EST 10/06/2024 6:48 AM EST us Angelo Kasper MD LAB BLOOD ORDERABLES Final Res ult Performing Organization Address [facility]/ZIP Co de Phone Number [facility] [address] [place] [address], [place] [phone] * (ABNORMAL) Basic metabolic panel (10/06/2024 5:48 AM EST) [facility] Sodium 130(L) 133 - 145 mmol/L LAB CHEMISTRY METHOD 10/06/2024 7:23 AM EST [facility] Potassium 4.0 3.5 - 5.5 mmol/L LAB CHEMISTRY METHOD 10/06/2024 7:23 AM EST [facility] Chloride 98 96 - 110 mmol/L LAB CHEMISTRY METHOD 10/06/2024 7:23 AM EST [facility] CO2 26 21 - 32 mmol/L LAB CHEMISTRY METHOD 10/06/2024 7:23 AM EST [facility] Anion Gap 6 3 - 11 LAB CHEMISTRY METHOD 10/06/2024 7:23 AM [facility] Glucose 76 70 - 100 mg/dL LAB CHEMISTRY METHOD 10/06/2024 7:23 AM [facility] BUN 9 5 - 25 mg/dL LAB CHEMISTRY METHOD 10/06/2024 7:23 AM [facility] Creatinine 0.62 0.50 - 1.10 mg/dL LAB CHEMISTRY METHOD 10/06/2024 7:23 AM [facility] eGFR 87 >=60 mL/min/1. 73m2 LAB CHEMISTRY METHOD 10/06/2024 7:23 AM [facility] Comment:Calculation based on the??Chronic Kidney Disease Epidemiology Collaboration (CKD-EPI) equation refit??without adjustment for race. BUN/Creatinine Ratio 14.5 LAB CHEMISTRY METHOD 10/06/2024 7:23 AM [facility] Calcium 8.4(L) 8.5 - 10.5 mg/dL LAB CHEMISTRY METHOD 10/06/2024 7:23 AM [facility] Blood Venous blood specimen / Unknown Venipuncture / Unknown 10/06/2024 5:48 AM EST 10/06/2024 6:48 AM EST us Angelo Kasper MD LAB BLOOD ORDERABLES Final Res ult [facility] [address] [place] [address], documented in this encounter Visit Diagnoses Diagnosis Encounter for other general examination documented in this encounter
--- OUTSIDE RECORDS SUMMARY | 2025-02-06 15:08 | XMS_ITS | Clinical Summary ---
Author Organization [facility] Address [address] [place] [address] Care Team Providers Care Survival Specialist Name Role Phone Unavailable Primary Care [...]
--- OUTSIDE RECORDS SUMMARY | 2025-02-06 15:08 | XMS_ITS | Encounter Summary ---
Author Organization [facility] Address [address] [place] [address] Care Team Providers Care Mine Manager Name Role Phone Unavailable Primary Care Provider Unavailabl e Encounter Details Date Type Department Care Team (Late st Contact Info) Description 10/05/[address] [facility] - Main Lab 299 [facility] [place] [address] Angelo Kasper MD [address] [place] [address] Encounter for other general examination Social History [...] LAB CHEMISTRY METHOD 10/05/2024 11:02 AM EST [facility] Potassium 4.1 3.5 - 5.5 mmol/L LAB CHEMISTRY METHOD 10/05/2024 11:02 AM EST [facility] Chloride 93(L) 96 - 110 mmol/L LAB CHEMISTRY METHOD 10/05/2024 11:02 AM EST [facility] CO2 27 21 - 32 mmol/L LAB CHEMISTRY METHOD 10/05/2024 11:02 AM EST [facility] Anion Gap 6 3 - 11 LAB CHEMISTRY METHOD 10/05/2024 11:02 AM [facility] Glucose 70 70 - 100 mg/dL LAB CHEMISTRY METHOD 10/05/2024 11:02 AM [facility] BUN 11 5 - 25 mg/dL LAB CHEMISTRY METHOD 10/05/2024 11:02 AM [facility] Creatinine 0.71 0.50 - 1.10 mg/dL LAB CHEMISTRY METHOD 10/05/2024 11:02 AM [facility] LAB eGFR 83 >=60 mL/min/1. 73m2 LAB CHEMISTRY METHOD 10/05/2024 11:02 AM [facility] Comment:Calculation based on the??Chronic Kidney Disease Epidemiology Collaboration (CKD-EPI) equation refit??without adjustment for race. BUN/Creatinine Ratio 15.5 LAB CHEMISTRY METHOD 10/05/2024 11:02 AM [facility] Calcium 8.6 8.5 - 10.5 mg/dL LAB CHEMISTRY METHOD 10/05/2024 11:02 AM [facility] Blood Venous blood specimen / Unknown Venipuncture / Unknown 10/05/2024 6:03 AM EST 10/05/2024 9:38 AM EST us Angelo Kasper MD LAB BLOOD ORDERABLES Final Res ult [facility] [address] [place] [address], [place] [phone] documented in this encounter Visit Diagnoses Diagnosis Encounter for other general examination documented in this encounter
--- OUTSIDE RECORDS SUMMARY | 2025-02-06 15:09 | XMS_ITS | Encounter Summary ---
Author Organization [facility] Address [address] [place] [address] Care Team Providers Care Engineering Tech Name Role Phone Unavailable Primary Care Provider Unavailabl e Encounter Details Date Type Department Care Team (Late st Contact Info) Description 10/03/2024 Lab Requisition [facility] - Main Lab [address] [place] [address] Angelo Kasper MD [address] [place] [address] Encounter for other general examination Social History [...] AM EST) WBC 4.2(L) 4.8 - 10.8 K/[facility] LAB HEMETOLOGY METHOD 10/03/2024 11:02 AM EST [facility] ([facility] LAB RBC 4.00 3.80 - 4.80 M/[facility] LAB HEMETOLOGY METHOD 10/03/2024 11:02 AM [facility] Hemoglobin 12.0 11.5 - 16.0 g/dL LAB HEMETOLOGY METHOD 10/03/2024 11:02 AM [facility] LAB Hematocrit 37.5 35.0 - 47.0 % LAB HEMETOLOGY METHOD 10/03/2024 11:02 AM [facility] MCV 94.5 79.0 - 98.0 FL LAB HEMETOLOGY METHOD 10/03/2024 11:02 AM [facility] MCH 30.2 27.0 - 32.0 pcg LAB HEMETOLOGY METHOD 10/03/2024 11:02 AM [facility] MCHC 32.0 32.0 - 37.0 g/dL LAB HEMETOLOGY METHOD 10/03/2024 11:02 AM [facility] RDW 13.8 11.0 - 15.0 % LAB HEMETOLOGY METHOD 10/03/2024 11:02 AM [facility] Platelets 224 130 - 400 K/mcL LAB HEMETOLOGY METHOD 10/03/2024 11:02 AM [facility] MPV 9.6 7.0 - 11.0 FL LAB HEMETOLOGY METHOD 10/03/2024 11:02 AM [facility] NRBC 0.0 <1.0 % LAB HEMETOLOGY METHOD 10/03/2024 11:02 AM [facility] NRBC Absolute 0.00 <0.10 K/mcL LAB HEMETOLOGY METHOD 10/03/2024 11:02 AM [facility] Neutrophils Relative 57.4 % LAB HEMETOLOGY METHOD 10/03/2024 11:02 AM [facility] Lymphocytes Relative 22.8 % LAB HEMETOLOGY METHOD 10/03/2024 11:02 AM [facility] Monocytes Relative 13.5 % LAB HEMETOLOGY METHOD 10/03/2024 11:02 AM [facility] Eosinophils Relative 3.1 % LAB HEMETOLOGY METHOD 10/03/2024 11:02 AM [facility] Basophils Relative 1.0 % LAB HEMETOLOGY METHOD 10/03/2024 11:02 AM [facility] Immature Granulocytes Relative 2.2 % LAB HEMETOLOGY METHOD 10/03/2024 11:02 AM [facility] Neutrophils Absolute 2.39 1.50 - 7.00 K/mcL LAB HEMETOLOGY METHOD 10/03/2024 11:02 AM [facility] Lymphocytes Absolute 0.95(L) 1.00 - 5.00 K/mcL LAB HEMETOLOGY METHOD 10/03/2024 11:02 AM [facility] Monocytes Absolute 0.56 0.20 - 1.00 K/mcL LAB HEMETOLOGY METHOD 10/03/2024 11:02 AM [facility] Eosinophils Absolute 0.13 0.00 - 0.50 K/mcL LAB HEMETOLOGY METHOD 10/03/2024 11:02 AM [facility] Basophils Absolute 0.04 0.00 - 0.20 K/mcL LAB HEMETOLOGY METHOD 10/03/2024 11:02 AM [facility] Immature Granulocytes Absolute 0.09(H) 0.00 - 0.03 K/mcL LAB HEMETOLOGY METHOD 10/03/2024 11:02 AM [facility] Blood Venous blood specimen / Unknown Venipuncture / Unknown 10/03/2024 6:25 AM EST 10/03/2024 9:48 AM EST us Angelo Kasper MD LAB BLOOD ORDERABLES Final Res ult [facility] [address] [place] [address], * (ABNORMAL) Basic metabolic panel (10/03/2024 6:25 AM EST) Sodium 128(L) 133 - 145 mmol/L LAB CHEMISTRY METHOD 10/03/2024 11:21 AM [facility] Potassium 4.4 3.5 - 5.5 mmol/L LAB CHEMISTRY METHOD 10/03/2024 11:21 AM [facility] Chloride 94(L) 96 - 110 mmol/L LAB CHEMISTRY METHOD 10/03/2024 11:21 AM [facility] CO2 28 21 - 32 mmol/L LAB CHEMISTRY METHOD 10/03/2024 11:21 AM [facility] Anion Gap 6 3 - 11 LAB CHEMISTRY METHOD 10/03/2024 11:21 AM [facility] Glucose 66(L) 70 - 100 mg/dL LAB CHEMISTRY METHOD 10/03/2024 11:21 AM [facility] BUN 13 5 - 25 mg/dL LAB CHEMISTRY METHOD 10/03/2024 11:21 AM [facility] Creatinine 0.67 0.50 - 1.10 mg/dL LAB CHEMISTRY METHOD 10/03/2024 11:21 AM [facility] eGFR 85 >=60 mL/min/1. 73m2 LAB CHEMISTRY METHOD 10/03/2024 11:21 AM [facility] Comment:Calculation based on the??Chronic Kidney Disease Epidemiology Collaboration (CKD-EPI) equation refit??without adjustment for race. BUN/Creatinine Ratio 19.4 LAB CHEMISTRY METHOD 10/03/2024 11:21 AM [facility] Calcium 8.9 8.5 - 10.5 mg/dL LAB CHEMISTRY METHOD 10/03/2024 11:21 AM [facility] Blood Venous blood specimen / Unknown Venipuncture / Unknown 10/03/2024 6:25 AM EST 10/03/2024 9:48 AM EST us Angelo Kasper MD LAB BLOOD ORDERABLES Final Res ult [facility] ([facility]) [facility] [address] [place] [address], documented in this encounter Visit Diagnoses Diagnosis Encounter for other general examination documented in this encounter
--- OUTSIDE RECORDS SUMMARY | 2025-02-06 15:09 | XMS_ITS | Encounter Summary ---
Author Organization [facility] Address [address] [place] [address] Care Team Providers Care Puller Through Name Role Phone Unavailable Primary Care Provider Unavailabl e Encounter Details Date Type Department Care Team (Late st Contact Info) Description 10/07/2024 Lab Requisition [facility] Lab 299 [facility] [place] [address] Angelo Kasper MD [address] [place] [phone] Encounter for other general examination Social History [...] LAB CHEMISTRY METHOD 10/07/2024 2:59 PM EST [facility] Potassium 4.2 3.5 - 5.5 mmol/L LAB CHEMISTRY METHOD 10/07/2024 2:59 PM EST [facility] Chloride 98 96 - 110 mmol/L LAB CHEMISTRY METHOD 10/07/2024 2:59 PM EST [facility] CO2 22 21 - 32 mmol/L LAB CHEMISTRY METHOD 10/07/2024 2:59 PM EST [facility] Anion Gap 10 3 - 11 LAB CHEMISTRY METHOD 10/07/2024 2:59 PM EST [facility] Glucose 63(L) 70 - [...] Res ult [facility] [address] [place] [address], documented in this encounter Visit Diagnoses Diagnosis Encounter for other general examination documented in this encounter
--- OUTSIDE RECORDS SUMMARY | 2025-02-06 15:09 | XMS_ITS | Clinical Summary ---
Author Organization [address] [facility] Address [address] [place] [address] Phone Care Team Providers Care College Sports Coach Name Role Phone Unavailable Primary Care Provider [...] Vaccines (1 of 2) 1988 RSV Immunization Adult Patie nts (1 - 1-dose 75+ series) 2013 COVID-19 Vaccine ( - 2023-2 5 season) 2024 Influenza Vaccine (Season Ended) 2025 HIB Vaccines Aged Out No longer eligi [...]
--- OUTSIDE RECORDS SUMMARY | 2025-02-06 15:09 | XMS_ITS | Encounter Summary ---
Author Organization [facility] Address [address] [place] [address] Care Team Providers Care Voice Teacher Name Role Phone Unavailable Primary Care Provider Unavailabl e Encounter Details Date Type Department Care Team (Late st Contact Info) Description 10/11/2024 Lab Requisition [facility] Lab [address] [facility] [place] [address] Angelo Kasper MD [address] [place] [address] Encounter for other general examination Social History [...] LAB CHEMISTRY METHOD 10/11/2024 1:13 PM EST [facility] Potassium 4.0 3.5 - 5.5 mmol/L LAB CHEMISTRY METHOD 10/11/2024 1:13 PM EST [facility] Chloride 102 96 - 110 mmol/L LAB CHEMISTRY METHOD 10/11/2024 1:13 PM EST [facility] CO2 23 21 - 32 mmol/L LAB CHEMISTRY METHOD 10/11/2024 1:13 PM EST [facility] Anion Gap 9 3 - 11 LAB CHEMISTRY METHOD 10/11/2024 1:[address] [facility] Glucose 80 70 - 100 mg/dL LAB CHEMISTRY METHOD 10/11/2024 1:[address] [facility] BUN 25 5 - 25 mg/dL LAB CHEMISTRY METHOD 10/11/2024 1:[address] [facility] Creatinine 0.99 0.50 - 1.10 mg/dL LAB CHEMISTRY METHOD 10/11/2024 1:[address] [facility] eGFR 56(L) >=60 mL/min/1. 73m2 LAB CHEMISTRY METHOD 10/11/2024 1:[address] [facility] Comment:Calculation based on the??Chronic Kidney Disease Epidemiology Collaboration (CKD-EPI) equation refit??without adjustment for race. BUN/Creatinine Ratio 25.3 LAB CHEMISTRY METHOD 10/11/2024 1:[address] [facility] Calcium 8.7 8.5 - 10.5 mg/dL LAB CHEMISTRY METHOD 10/11/2024 1:[address] [facility] Blood Venous blood specimen / Unknown Venipuncture / Unknown 10/11/2024 7:25 AM EST 10/11/2024 11:51 AM EST us Angelo Kasper MD LAB BLOOD ORDERABLES Final Res ult [facility] [address] [place] [address], documented in this encounter Visit Diagnoses Diagnosis Encounter for other general examination documented in this encounter
--- OUTSIDE RECORDS SUMMARY | 2025-02-06 15:09 | XMS_ITS | Encounter Summary ---
Author Organization [facility] Address [address] [place] [address] Care Team Providers Care Donation Specialist Name Role Phone Unavailable Primary Care Provider Unavailabl e Encounter Details Date Type Department Care Team (Late st Contact Info) Description 10/04/2024 Lab Requisition [facility] Lab [address] [facility] [place] [address] Angelo Kasper MD [address] [place] [address] [phone] Encounter for other general examination Social History [...] microscopic and culture (10/04/2024 4:00 AM EST) [facility] Specific [place] Urine 1.018 1.003 - 1.030 LAB URINALYSIS - AUTOMATED METHOD 10/04/2024 9:55 AM [facility] pH, Urine 7.0 5.0 - 8.0 pH LAB URINALYSIS - AUTOMATED METHOD 10/04/2024 9:55 AM [facility] Leukocytes, Urine Negative Negative LAB URINALYSIS - AUTOMATED METHOD 10/04/2024 9:55 AM [facility] Nitrite, Urine Negative Negative LAB URINALYSIS - AUTOMATED METHOD 10/04/2024 9:55 AM [facility] Protein, Urine Negative <=Trace mg/dL LAB URINALYSIS - AUTOMATED METHOD 10/04/2024 9:55 AM [facility] Glucose, Urine Negative Negative mg/dL LAB URINALYSIS - AUTOMATED METHOD 10/04/2024 9:55 AM [facility] Ketones, Urine Trace(A) Negative mg/dL LAB URINALYSIS - AUTOMATED METHOD 10/04/2024 9:55 AM [facility] Urobilinogen, Urine 1.0 0.2 - 1.0 mg/dL LAB URINALYSIS - AUTOMATED METHOD 10/04/2024 9:55 AM [facility] Bilirubin, Urine Negative Negative LAB URINALYSIS - AUTOMATED METHOD 10/04/2024 9:55 AM [facility] Blood, Urine Negative Negative LAB URINALYSIS - AUTOMATED METHOD 10/04/2024 9:55 AM [facility] Urine Urine specimen obtained by clean catch procedure / Unknown Non-blood Collection / Unknown 10/04/2024 4:00 AM EST 10/04/2024 9:37 AM EST us Angelo Kasper MD LAB URINE ORDERABLES Final Res ult [facility] [address] [place] [address], [place] [phone] * Navarro urine culture tube (10/04/2024 4:00 AM EST) Extra Tube Hold for add-ons. 10/04/2024 11:01 AM EST [facility] Comment:Auto resulted. Urine Urine specimen obtained by clean catch procedure / Unknown Non-blood Collection / Unknown 10/04/2024 4:00 AM EST 10/04/2024 9:37 AM EST us Angelo Kasper MD LAB URINE ORDERABLES Final Res ult [facility] [address] [place] [address], [place] [phone] * Sodium, urine, random (10/04/2024 4:00 AM EST) Sodium, Ur 87 mmol/L LAB CHEMISTRY METHOD 10/04/2024 10:46 AM EST [facility] Urine Urine specimen obtained by clean catch procedure / Unknown Non-blood Collection / Unknown 10/04/2024 4:00 AM EST 10/04/2024 9:37 AM EST us Angelo Kasper MD LAB URINE ORDERABLES Final Res ult [facility] [address] [place] [address], [place] [phone] * Osmolality, urine (10/04/2024 4:00 AM EST) Osmolality, Urine 475 300 - 1,300 mOsm/kg LAB CHEMISTRY METHOD 10/04/2024 10:45 AM EST [facility] Urine Urine specimen obtained by clean catch procedure / Unknown Non-blood Collection / Unknown 10/04/2024 4:00 AM EST 10/04/2024 9:37 AM EST us Angelo Kasper MD LAB URINE ORDERABLES Final Res ult [facility] ([facility] [address] [place] [address], documented in this encounter Visit Diagnoses Diagnosis Encounter for other general examination documented in this encounter
--- OUTSIDE RECORDS SUMMARY | 2025-02-06 15:09 | XMS_ITS | Encounter Summary ---
Author Organization [facility] Address [address] [place] [address] Care Team Providers Care V Belt Mold Assembler And Curer Name Role Phone Unavailable Primary Care Provider Unavailabl e Encounter Details Date Type Department Care Team (Late st Contact Info) Description 10/09/2024 Lab Requisition [facility] Lab [address] [facility] [place] [address] Angelo Kasper MD [address] [place] [phone] Encounter for other general examination Social History [...] LAB CHEMISTRY METHOD 10/09/2024 12:04 PM EST [facility] Potassium 4.1 3.5 - 5.5 mmol/L LAB CHEMISTRY METHOD 10/09/2024 12:04 PM EST [facility] Chloride 100 96 - 110 mmol/L LAB CHEMISTRY METHOD 10/09/2024 12:04 PM EST [facility] CO2 26 21 - 32 mmol/L LAB CHEMISTRY METHOD 10/09/2024 12:04 PM EST [facility] Anion Gap 6 3 - 11 LAB CHEMISTRY METHOD 10/09/2024 12:04 PM [facility] Glucose 62(L) 70 - 100 mg/dL LAB CHEMISTRY METHOD 10/09/2024 12:04 PM [facility] BUN 12 5 - 25 mg/dL LAB CHEMISTRY METHOD 10/09/2024 12:04 PM [facility] Creatinine 0.71 0.50 - 1.10 mg/dL LAB CHEMISTRY METHOD 10/09/2024 12:04 PM [facility] eGFR 83 >=60 mL/min/1. 73m2 LAB CHEMISTRY METHOD 10/09/2024 12:04 PM [facility] Comment:Calculation based on the??Chronic Kidney Disease Epidemiology Collaboration (CKD-EPI) equation refit??without adjustment for race. BUN/Creatinine Ratio 16.9 LAB CHEMISTRY METHOD 10/09/2024 12:04 PM [facility] Calcium 8.8 8.5 - 10.5 mg/dL LAB CHEMISTRY METHOD 10/09/2024 12:04 PM [facility] Blood Venous blood specimen / Unknown Venipuncture / Unknown 10/09/2024 7:03 AM EST 10/09/2024 10:19 AM EST us Angleo Kasper MD LAB BLOOD ORDERABLES Final Res ult [facility] [address] [place] [address], [place] [phone] documented in this encounter Visit Diagnoses Diagnosis Encounter for other general examination documented in this encounter
--- OUTSIDE RECORDS SUMMARY | 2025-02-06 15:09 | XMS_ITS | Encounter Summary ---
Author Organization [facility] Address [address] [place] [address] Care Team Providers Care Wet Milling Wheel Operator Name Role Phone Unavailable Primary Care Provider Unavailabl e Encounter Details Date Type Department Care Team (Late st Contact Info) Description 09/30/2024 Lab Requisition [facility] Lab [address] [place] [address] Angelo Kasper MD [address] [place] [address] [phone] Encounter for other general examination Social History [...] LAB HEMETOLOGY METHOD 09/30/2024 1:38 PM EST [facility] RBC 4.10 3.80 - 4.80 M/mcL LAB HEMETOLOGY METHOD 09/30/2024 1:38 PM EST [facility] Hemoglobin 12.4 11.5 - 16.0 g/dL LAB HEMETOLOGY METHOD 09/30/2024 1:38 PM EST [facility] Hematocrit 38.8 35.0 - 47.0 % LAB HEMETOLOGY METHOD 09/30/2024 1:38 PM [facility] MCV 95.1 79.0 - 98.0 FL LAB HEMETOLOGY METHOD 09/30/2024 1:38 PM [facility] MCH 30.4 27.0 - 32.0 pcg LAB HEMETOLOGY METHOD 09/30/2024 1:38 PM EST [facility] MCHC 32.0 32.0 - 37.0 g/dL LAB HEMETOLOGY METHOD 09/30/2024 1:38 PM [facility] RDW 14.1 11.0 - 15.0 % LAB HEMETOLOGY METHOD 09/30/2024 1:38 PM [facility] Platelets 279 130 - 400 K/mcL LAB HEMETOLOGY METHOD 09/30/2024 1:38 PM EST [facility] MPV 9.4 7.0 - 11.0 FL LAB HEMETOLOGY METHOD 09/30/2024 1:38 PM [facility] NRBC 0.0 <1.0 % LAB HEMETOLOGY METHOD 09/30/2024 1:38 PM [facility] NRBC Absolute 0.00 <0.10 K/mcL LAB HEMETOLOGY METHOD 09/30/2024 1:38 PM [facility] Blood Venous blood specimen / Unknown Venipuncture / Unknown 09/30/2024 7:07 AM EST 09/30/2024 1:00 PM EST us Angelo Kasper MD LAB BLOOD ORDERABLES Final Res ult [facility] [address] [place] [address], * (ABNORMAL) Basic metabolic panel (09/30/2024 7:07 AM EST) Sodium 135 133 - 145 mmol/L LAB CHEMISTRY METHOD 09/30/2024 4:17 PM [facility] Potassium 4.6 3.5 - 5.5 mmol/L LAB CHEMISTRY METHOD 09/30/2024 4:17 PM [facility] Chloride 103 96 - 110 mmol/L LAB CHEMISTRY METHOD 09/30/2024 4:17 PM [facility] CO2 25 21 - 32 mmol/L LAB CHEMISTRY METHOD 09/30/2024 4:17 PM [facility] Anion Gap 7 3 - 11 LAB CHEMISTRY METHOD 09/30/2024 4:17 PM [facility] Glucose 60(L) 70 - 100 mg/dL LAB CHEMISTRY METHOD 09/30/2024 4:17 PM [facility] BUN 20 5 - 25 mg/dL LAB CHEMISTRY METHOD 09/30/2024 4:17 PM [facility] Creatinine 0.82 0.50 - 1.10 mg/dL LAB CHEMISTRY METHOD 09/30/2024 4:17 PM [facility] eGFR 70 >=60 mL/min/1. 73m2 LAB CHEMISTRY METHOD 09/30/2024 4:17 PM [facility] Comment:Calculation based on the??Chronic Kidney Disease Epidemiology Collaboration (CKD-EPI) equation refit??without adjustment for race. BUN/Creatinine Ratio 24.4 LAB CHEMISTRY METHOD 09/30/2024 4:17 PM [facility] Calcium 9.8 8.5 - 10.5 mg/dL LAB CHEMISTRY METHOD 09/30/2024 4:17 PM [facility] Blood Venous blood specimen / Unknown Venipuncture / Unknown 09/30/2024 7:07 AM EST 09/30/2024 1:00 PM EST Angelo Kasper MD LAB BLOOD ORDERABLES Final Res ult [facility] [address] [place] [address], documented in this encounter Visit Diagnoses Diagnosis Encounter for other general examination documented in this encounter
--- OUTSIDE RECORDS SUMMARY | 2025-02-06 15:09 | XMS_ITS | Encounter Summary ---
Author Organization [facility] Address [address] [place] [address] Care Team Providers Care Fiberglass Product Tester Name Role Phone Unavailable Primary Care Provider Unavailabl e Encounter Details Date Type Department Care Team (Late st Contact Info) Description 10/04/2024 Lab Requisition [facility] Lab [address] [place] [address] Angelo Kasper MD [address] [place] [id number] Encounter for other general examination Social History [...] LAB CHEMISTRY METHOD 10/04/2024 10:45 AM EST [facility] Blood Venous blood specimen / Unknown Venipuncture / Unknown 10/04/2024 5:56 AM EST 10/04/2024 9:06 AM EST Angelo Kasper MD LAB BLOOD ORDERABLES Final Res ult [facility] [address] [place] [address], [place] [phone] documented in this encounter Visit Diagnoses Diagnosis Encounter for other general examination documented in this encounter
[2025-02-07] VITALS (7 sets, daily range): BP systolic 112–162; BP diastolic 66–87; PULSE 76–98; RESP 18–20; TEMP 36.4–36.7; O2SAT 98; BMI 26.6
--- NOTE | ~2025-02-07 | FL_ITS ---
EXAMINATION: FL GUIDANCE ONLY HISTORY: si JOINT TRIAL COMPARISON: None available. TECHNIQUE: Fluoroscopy time: 51.1 seconds. Cumulative Dose: 12.698 mGy. DAP: 5.5234 mGym2 Images: 7. FINDINGS: Images demonstrate placement of bilateral sacral stimulators. FL/FL guidance in OR IMPRESSION: Fluoroscopy during procedure. Please see procedure report for additional information. Electronically signed by: Montana Beard MD 02/07/2025 11:05 AM EDT
--- NOTE | 2025-02-07 06:30 | PC.NURSE ---
Dr. Hopkins and Dr. Mooney updated that patient ate one egg at 0100. Patient will now wait until 0900 to have procedure done. All team members updated.
[2025-02-07 06:46] LABS: INTERNATIONAL NORM RATIO 0.9 (0.9-1.1); Prothrombin Time 10.3 SEC (10.9-12.4)
[2025-02-07 06:49] LABS: Partial Thromboplastin Time 35.2 SEC (26.0-36.8)
[2025-02-07] MEDS: Lactated Ringers 1,000 ML 80 ML IVCONT (07:44)
--- NOTE | 2025-02-07 08:46 | MHC.SHP ---
Pre-Procedural Eval Section A - 24 Hr Update-Section A only Date of Service: 02/07/25 The patient is an INPATIENT: No Changes since office visit: Yes Patient answered all questions The patient has been examined within 24 hours of the surgical procedure. The History & Physical has been completed within 30 days and I have reviewed it.: No Section B - Complete if H&P > 30 days Chief Complaint: Sacrococcygeal disorders,sacroiliitis Details of Present Illness: As above Relevant Family History (Specify if Yes): No Relevant Social History: None Present Medications: see Short Stay Collaborative assessment Medical History: No relevant PMH History of Previous Operations: No relevant previous surgery Allergies: Allergies Allergy/AdvReac Type Severity Reaction Status Date / Time alendronate sodium Allergy Severe ANAPHYLAXIS Verified 02/07/25 06:26 [From FOSAMAX] lisinopril [LISINOPRIL] Allergy Severe ANAPHYLAXIS, Verified 02/07/25 06:26 cough clarithromycin Allergy Intermediate CONFUSION, Verified 02/07/25 06:26 [CLARITHROMYCIN] sores on tongue, dry mouth simvastatin [SIMVASTATIN] Allergy Mild DRY Verified 02/07/25 06:26 THROAT, achy, confusion Review of Systems Sugical H&P ROS: Negative: Constitution, Respiratory, Psychiatric, Hem-Onc, Allergic/Immunologic, Gastrointestinal, Genitourinary, Integumentary, Endocrine and Eyes/Ears/Nose/Throat and Yes, Specify: Cardiovascular (aortic stenosis mild), Neurological (H/o TIA) and Musculoskeletal (sacroiliitis) Exam Surgical H&P Exam: Normal: HEENT, Normal: Heart, Normal: Lungs, Normal: Extremities, Normal: Abdomen, Normal: Skin and Normal: Neurological Plan Diagnosis/Plan: Unchanged I have reviewed the history and physical and performed a pertinent physical examination on my patient. No changes have occurred unless specified. Time Spent With Patient Time: Total time managing care of this patient today __5__ minutes. I am going to perform a trial of peripheral nerve stimulation Curonix bilateral sacroiliac joint innervation
--- NOTE | 2025-02-07 08:55 | HO.ANESPROP2 ---
HPI - Anesthesia Eval Consult details Narrative: for SI joint n. stim trial [facility] Active Problems Active Problems: All Active Problems Sacroiliac joint dysfunction of both sides (Acute) Compression fracture of L1 lumbar vertebra (Acute) Elbow pain, left (Acute) Aortic stenosis, mild (Acute) Constipation (Acute) Inability to walk (Acute) Vomiting (Acute) Restless leg syndrome (Acute) Benign paroxysmal positional vertigo (Acute) long-term use of drug (Acute) Meniere disease (Acute) Medication monitoring encounter (Acute) Spondylosis of lumbar spine (Acute) Generalized anxiety disorder (Acute) Recurrent aphthous stomatitis (Acute) Bicipital tendinitis of shoulder (Acute) Transient ischemic attack (TIA) (Acute) Osteoarthritis of shoulders, bilateral (Acute) Osteoarthritis of carpometacarpal (CMC) joint of right thumb (Acute) Polymyalgia rheumatica (Acute) Overweight (BMI 25.0-29.9) (Acute) High cholesterol (Acute) Seropositive rheumatoid arthritis (Acute) Anxiety and depression (Acute) Osteoporosis (Acute) Gout (Acute) Restless leg syndrome (Acute) Hypergammaglobulinemia (Acute) GERD (gastroesophageal reflux disease) (Acute) Seizure disorder (Acute) Hypertension (Acute) Hypercholesterolemia (Acute) Asthma (Acute) Peripheral neuropathy (Acute) Past Medical History Medical History Pre-op chest exam Pre-op examination Meniere disease Transient ischemic attack (TIA) Osteoarthritis of shoulders, bilateral Rheumatoid arthritis Osteoarthritis of carpometacarpal (CMC) joint of right thumb Overweight (BMI 25.0-29.9) High cholesterol Hypertension Thrush, oral Nondisplaced fracture of fifth metatarsal bone, left foot, subsequent encounter for fracture with nonunion Seropositive rheumatoid arthritis Fracture of 5th metatarsal Fracture of fifth metatarsal bone of right foot Polymyalgia rheumatica Anxiety and depression Osteoarthritis Lumbar degenerative disc disease Osteoporosis Gout Restless leg syndrome Hypergammaglobulinemia GERD (gastroesophageal reflux disease) Seizure disorder Hypertension Hypercholesterolemia Asthma Peripheral neuropathy Rheumatoid arthritis Narrative: Reviewed echo from 03/29. Family History Family History Father CVD (cardiovascular disease) Mother No problems noted. Family history of problems with anesthesia: No Surgical History Surgical History Corneal transplant status History of arthroplasty of right hip History of total abdominal hysterectomy History of corneal transplant H/O left knee surgery History of open reduction and internal fixation (ORIF) procedure History of cholecystectomy History of appendectomy History of Problems with Anesthesia: No Social History Social History Household Members: Significant Other Household Members Other:: parter Housing: House Are you a primary social worker palliative care to a significant other at home: No Do you presently have visiting nurse or other home services: No Alcohol intake: current Alcohol intake frequency: holidays/special occasions only Alcohol type: wine Comment: patient uses call light appropriately Patient Tobacco Use Status: Never used Tobacco e-Cigarette/Vaping Use: Never Used Second Hand Smoke Exposure: No Have you been hit, kicked, punched, or otherwise hurt by someone within the past year? If so, by whom?: No Are you DNR?: No Advance Directives: No Advance Directives Information Provided: Yes Advance Directives Date on File: 07/11/23 Poor oral hygiene: No service: No Current occupational status: retired Cognitive needs: Yes (walker) Hearing needs: Yes Vision needs: Yes Meds Allergies Allergy/AdvReac Type Severity Reaction Status Date / Time alendronate sodium Allergy Severe ANAPHYLAXIS Verified 02/07/25 06:26 [From FOSAMAX] lisinopril [LISINOPRIL] Allergy Severe ANAPHYLAXIS, Verified 02/07/25 06:26 cough clarithromycin Allergy Intermediate CONFUSION, Verified 02/07/25 06:26 [CLARITHROMYCIN] sores on tongue, dry mouth simvastatin [SIMVASTATIN] Allergy Mild DRY Verified 02/07/25 06:26 THROAT, achy, confusion Active Medications: lCurrent Medications Lactated Ringer's (Lr) 1,000 mls @ 80 mls/hr IVCONT .[id number] APURVA Last Admin: 02/07/25 07:44 Dose: 80 mls/hr Home Medications ?Medication ?Instructions ?Recorded ?Confirmed ?Last Taken ?Type vitamin B complex (B 1 tab PO DAILY 09/04/20 02/07/25 09/26/24 History Complex-Vitamin B12 tablet) bisacodyl 5 mg tablet,delayed 5 mg PO DAILY PRN Constipation 09/27/24 02/07/25 Unknown History release omeprazole 20 mg tablet,delayed 20 mg PO DAILY@0630 09/27/24 02/07/25 09/26/24 History release amlodipine 5 mg tablet 5 mg PO DAILY 11/07/24 02/07/25 Unknown History Exam Height,Weight and Vital Signs: Height 5 ft 6 in Weight 74.843 kg Last Vital Signs Temp 98.0 F 02/07/25 06:42 Pulse 97 02/07/25 06:42 Resp 18 02/07/25 06:42 BP 161/78 H 02/07/25 06:42 Pulse Ox 98 02/07/25 06:42 O2 Del Method Room Air 02/07/25 06:42 Pertinent Lab Results Pertinent Lab Results: Laboratory Tests 02/07/25 06:28 PT 10.3 L INR 0.9 APTT 35.2 Airway Mallampati Class: II TM Dist: <=3cm Neck ROM: Full Denture: Lower Heart: OK. Mild , echo is otherwise OK. Lungs: ok. Assessment and Plan Assessment Anesthesia Assessment: Anesthesia Plan Discussed and Chart Reviewed Final Anesthetic Review Family History of Problems with Anesthesia: No History of Problems with Anesthesia: No NPO: Yes ASA Class: IV (Can't walk, uses wheelchair.) Final Preanesthetic Review: No Changes in Pt Med Stat, Meds/Allgs Chart Reviewed, Consent Obtained/Reviewed and Anes Risks/Benef Reviewed Patient Risk: High Procedure Risk: Intermediate Anesthetic Plan Anesthetic Plan: MAC:, Agree w/ Assess. and Plan and TIVA Disposition: Standard PACU
--- NOTE | 2025-02-07 10:37 | P.BOP_ITS ---
Brief Operative Note Date of Service: 02/07/25 Pre-op diagnosis: Sacroiliitis, bilateral sacroiliac joint dysfunction. Post-op diagnosis: same Procedure: Trial of Curonix bilateral sacroiliac joint innervation stimulation. Implants: None permanent Surgeon: Sotero Swann MD Anesthesia: MAC Was an Lead Warehouse Associate used for this Procedure?: No Estimated blood loss (mL): 2 Condition: stable Disposition: PACU
--- NOTE | 2025-02-07 10:40 | P.OP_ITS ---
Operative Note Operative Note Date of Service: 02/07/25 Narrative: trial of the sacroiliac joint innervation stimulation Curonix bilateral. Informed consent was thoroughly explained to the patient.? Risks and benefits were explained as bleeding infection peripheral nerve damage and other no unspecified risks. Patient ? was taken to the operating room, she was positioned prone on the operating table with the pillow under her pelvis.? [employer] [employer] monitors were applied and patient was deeply sedated. Time out was performed delineated correct name and of the patient, site, side and nature of the procedure, Need for DVT prophylaxis, risk of fire, need for antibiotics. patient received cefazolin 2 g preoperatively 20 minutes before the onset of the procedure Her lower back and buttocks was prepped with ChloraPrep twice, and laparoscopy whole-body sterile drape was applied.? Sterilely draped C-arm was brought over the operating field and sq picture of patient's pelvis was demonstrated on the screen.? Attention was concentrated on the left SI joint. The sacral ala on the right was chosen as a target of the needle insertion. 3 cm above the sacral ala projection in the lumbar area injection of the local anesthetic miixture of lidocaine 2% with ropivacaine 0.5% one-to-one was performed in the skin. Using 11 blade scalpel small gary in the skin was performed. 16 gauge introducer Curonix malleable needle? was inserted through the gary and advanced toward the sacral alae on the right under AP and lateral images.? After needle met the bone on sacral ala it was redirected slightly posterior and continued to advance alongside the curvature of the sacral bone.? When the tip of the needle reached the end of the projection of the sacroiliac joint inferiorly advancement stops and guitar wire was introduced into the needle.? It went through the needle without difficulties.? After that 8 electrode stimulating array lead was inserted through the needle and advanced to the desired position.? The needle was removed and care was taken not to dislodge the lead.? The driving stylet was removed from the lead and it was replaced with stimulating copper wire antenna electrode.? After that the knot was tied just below the level of the 2nd antenna ? contact.?One silk stitch was applied to the skin to anchor the lead to the skin. Mastisol was applied to the skin and Steri- Strips was used to fix the stimulating lead to the skin.? after the sacral antione on the left was chosen as the target of the 2nd needle insertion. 3 cm above the sacral allow projection in the lumbar area injection of the local anesthetic was performed in the skin. Local anesthetic comprised of lidocaine 2% mixed with ropivacaine 0.5% one-to-one. 16 gauge introducer Curonix malleable needle was inserted through the neck and advanced to were the sacral antione on the left under anterior posterior and lateral images. After needle met the bone on sacral ala it was redirected slightly posterior and continued to advance alongside the curvature of the sacral bone. When the tip of the needle reached the end of the projection of the sacroiliac joint inferiorly advancement stopped and guitar wire was introduced into the needle. It went through the needle without difficulty. After that 8 electrode stimulating RA lead was inserted through the needle and advanced it to the desired position. The needle was removed and care was taken not to dislodge the lead. The driving stylette was removed from the lead and it was replaced with stimulating copper wire and 10 electrode. After that the knot was tied just below the level of the 2nd antenna contact. Once silk stitch was applied to the skin to anchor the lead to the skin. Mastisol was applied to the skin and Steri-Strips were used to fix the stimulating leads to the skin.Sterile dressing applied, stimulating pad was applied and taped to the skin using Medipore tape. Upon completion of the procedure the patient was awaken she was taken outside of the operating room to recovery room where she recovered uneventfully.
== END 2025-02-07 11:43 | disposition home or self-care (01) ==
PROVIDERS: Registered Nurse Emergency; PCP Internal Medicine; Visit Provider Anesthesiology
PROC: (CPT 64555; principal; 2025-02-07 07:30)
DX: M46.1 Sacroiliitis, not elsewhere classified (principal); M53.3 Sacrococcygeal disorders, not elsewhere classified; G89.4 Chronic pain syndrome; M47.816 Spondylosis without myelopathy or radiculopathy, lumbar region; S32.010A Wedge compression fracture of first lumbar vertebra, initial encounter for closed fracture; X58.XXXA Exposure to other specified factors, initial encounter; Y93.9 Activity, unspecified; Y92.9 Unspecified place or not applicable; Y99.9 Unspecified external cause status; M81.0 Age-related osteoporosis without current pathological fracture; M05.9 Rheumatoid arthritis with rheumatoid factor, unspecified; M35.3 Polymyalgia rheumatica; I10 Essential (primary) hypertension; E78.00 Pure hypercholesterolemia, unspecified; G40.909 Epilepsy, unspecified, not intractable, without status epilepticus; G62.9 Polyneuropathy, unspecified; H81.09 Meniere's disease, unspecified ear; J45.909 Unspecified asthma, uncomplicated; Z79.02 Long term (current) use of antithrombotics/antiplatelets; Z79.52 Long term (current) use of systemic steroids; Z79.899 Other long term (current) drug therapy; Z88.8 Allergy status to other drugs, medicaments and biological substances; Z94.7 Corneal transplant status; Z98.890 Other specified postprocedural states
CPT/HCPCS: 64555 ×2; 36415; 85610; 85730; C1897; J0690; J2003; J2250; J2704; J2795; J3010

== ENCOUNTER → 2025-02-07 05:51 | Outpatient (BNV) | payer MEDICARE, OTHER, SELFPAY | PROVIDERS: PCP Internal Medicine; Visit Provider Anesthesiology | DX: M46.1 Sacroiliitis, not elsewhere classified (principal) | CPT/HCPCS: 64555 ==

== ENCOUNTER 2025-02-13 14:17 | Outpatient (AMB) | payer MEDICARE, OTHER, SELFPAY ==
--- NOTE | 2025-02-13 14:25 | MHC.OFFVIS ---
Vital Signs 02/13/25 14:26 Height 5 ft 6 in Weight 154 lb BMI 24.9 BP 142/61 H Blood Pressure Location Lt brachial Position Sitting Pulse 88 Pulse Source Pulse Oximeter Pulse Oximetry (%) 98 Oxygen Delivery Method Room Air Intake Visit Reasons: S/p B/l SI Joint Innervation PNS 02/07/25 Allergies alendronate sodium [From FOSAMAX] Allergy (Severe, Verified 02/13/25 14:25) ANAPHYLAXIS lisinopril [LISINOPRIL] Allergy (Severe, Verified 02/13/25 14:25) ANAPHYLAXIS, cough clarithromycin [CLARITHROMYCIN] Allergy (Intermediate, Verified 02/13/25 14:25) CONFUSION, sores on tongue, dry mouth simvastatin [SIMVASTATIN] Allergy (Mild, Verified 02/13/25 14:25) DRY THROAT, achy, confusion HPI Comments Details: Ellie Falcon) is in my office today after a trial of Curonix PNS bilateral sacroiliac joint innervation. The dressing was removed and stimulating leads were pulled out. They went out without suture. The sutures were severed and after that the area was prepped with ChloraPrep and sterile dressing was applied. No pathological discharge no redness no swelling was noted. We discuss the results of the procedure. She reports 75% pain improvement. She reports better mobility, better activities of daily living, better social interactions. She requests me to perform permanent implantation of the device. I will schedule this procedure accordingly. Prior: Results of the bilateral sacroiliac joint injection. Excellent pain relief on bilateral SI joint diagnostic injection. Patient is 84 years old and suffers from the osteoporosis. Steroid injections are not ideal situation for this patient. Prior: She reports severe pain in the lower lumbar spine. She reports pain exacerbates with flexing forward and lifting things from the ground. On physical examination attention was attracted to signs of sacroiliitis. In the past she received from me diagnostic sacroiliac joint injection with 60% pain improvement. Now she reports severe pain 10/10 today, I feel like I have to perform again diagnostic sacroiliac joint injection. This patient was diagnose recently with L1 compression fracture. There is widespread diffuse osteopenia on her x-rays well. Therefore injection of the steroids will not be a good idea, however we can try peripheral nerve stimulation sprint versus peripheral nerve sprint stimulation cure on X. In regarding of her or diagnostic medial branch block she reported significant pain relieve on the left side immediately after the injection however she reported pain aggravation on the right side due to injection immediately after injection.? However on bilateral sacroiliac joint diagnostic injection on 12/13/2022 she reported 50-60% pain improvement after the injection.? The pain of this patient is most likely multifactorial.? She has significant rheumatoid arthritis which effects her shoulder joints her lumbar spine as well as her sacroiliac joints.? I offered her to perform bilateral sacroiliac joint injection therapeutic this time.? I will schedule this procedure without sedation.? She has an appointment with Dr. Guidry for evaluation of her shoulder pain.? Because of her severe osteopenia I would not recommend steroid injections for this patient. [facility] Medical History Pre-op chest exam Pre-op examination Meniere disease Transient ischemic attack (TIA) Osteoarthritis of shoulders, bilateral Rheumatoid arthritis Osteoarthritis of carpometacarpal (CMC) joint of right thumb Overweight (BMI 25.0-29.9) High cholesterol Hypertension Thrush, oral Nondisplaced fracture of fifth metatarsal bone, left foot, subsequent encounter for fracture with nonunion Seropositive rheumatoid arthritis Fracture of 5th metatarsal Fracture of fifth metatarsal bone of right foot Polymyalgia rheumatica Anxiety and depression Osteoarthritis Lumbar degenerative disc disease Osteoporosis Gout Restless leg syndrome Hypergammaglobulinemia GERD (gastroesophageal reflux disease) Seizure disorder Hypertension Hypercholesterolemia Asthma Peripheral neuropathy Rheumatoid arthritis Surgical History Corneal transplant status History of arthroplasty of right hip History of total abdominal hysterectomy History of corneal transplant H/O left knee surgery History of open reduction and internal fixation (ORIF) procedure History of cholecystectomy History of appendectomy Family History Father CVD (cardiovascular disease) Mother No problems noted. Social History Household Members: Significant Other Household Members Other:: parter Housing: House Are you a primary health care legal assistant to a significant other at home: No Do you presently have visiting nurse or other home services: No Alcohol intake: current Alcohol intake frequency: holidays/special occasions only Alcohol type: wine Comment: patient uses call light appropriately Patient Tobacco Use Status: Never used Tobacco e-Cigarette/Vaping Use: Never Used Second Hand Smoke Exposure: No Advance Directives Date on File: 07/11/23 service: No Current occupational status: retired Cognitive needs: Yes (walker) Hearing needs: Yes Vision needs: Yes Review of Systems Const All systems reviewed & are unremarkable except as noted in HPI and below Physical Exam Vital Signs: Last Vital Signs Pulse 88 02/13/25 14:26 BP 142/61 H 02/13/25 14:26 Pulse Ox 98 02/13/25 14:26 Oxygen Delivery Method Room Air 02/13/25 14:26 BMI result Body Mass Index 24.9 Const General: cooperative, comfortable and no acute distress Nutritional Appearance: well nourished Orientation/consciousness: patient oriented x3 Limitations: physical limitations Chest Chest palpation & inspection: normal inspection of the chest Resp Effort & Inspection: normal respiratory effort, able to speak in complete sentences, normal respiratory pattern, no audible wheezes, no cough, respiratory effort not decreased, no grunting and not labored Cardio Jugular venous distension: no JVD GI Inspection: Yes normal to inspection Back/Spine/Pelvis Other: Tenderness on palpation in paraspinal spinal region of lumbar spine.. Danial test is negative bilaterally however pelvis compression test, thigh thrust test, Gaenslen test positive bilaterally. Fourteen finger test is positive bilaterally more on the left. Neuro General: patient oriented x3 Assessment & Plan Assessment & Plan (1) Rheumatoid arthritis: Code(s): M06.9 - Rheumatoid arthritis, unspecified Category: Medical (2) Spondylosis of lumbar spine: Code(s): M47.816 - Spondylosis without myelopathy or radiculopathy, lumbar region Category: Medical (3) Sacroiliitis: Code(s): M46.1 - Sacroiliitis, not elsewhere classified Category: Medical (4) Pain of both sacroiliac joints: Code(s): M53.3 - Sacrococcygeal disorders, not elsewhere classified Category: Medical (5) Chronic pain syndrome: Code(s): G89.4 - Chronic pain syndrome Category: Medical (6) Sacroiliac joint dysfunction of both sides: Code(s): M53.3 - Sacrococcygeal disorders, not elsewhere classified Category: Medical (7) Compression fracture of L1 lumbar vertebra: Comment: indeterminate age Code(s): S32.010A - Wedge compression fracture of first lumbar vertebra, initial encounter for closed fracture Category: Medical Plan Medial branch block injection on 12/06/2022 resulted in profound pain relieve on the left side however significant aggravation of the pain on the right side. Sacroiliac joint injection resulted in 50-60% pain improvement on bilateral pain. Repeats diagnostic sacroiliac joint injection resulted in 60-70% pain improvement. Curonix PNS of bilateral stimulation of sacroiliac joint innervation resulted in 75% pain improvement. I will schedule this patient for implantation of the device. It will be performed under sedation. This patient is suffering from seropositive rheumatoid arthritis and she is under care of Dr. Pinto receiving DMARDS. Coding Level of Care Code Est Pt Level 3 (99533) Diagnoses Rheumatoid arthritis M06.9 Spondylosis of lumbar spine M47.816 Sacroiliitis M46.1 Pain of both sacroiliac joints M53.3 Chronic pain syndrome G89.4 Sacroiliac joint dysfunction of both sides M53.3 Compression fracture of L1 lumbar vertebra S32.010A
[2025-02-13 14:26] VITALS: BP 142/61; PULSE 88; O2SAT 98; BMI 24.9
--- OUTSIDE RECORDS SUMMARY | 2025-02-13 17:02 | XMS_ITS | Encounter Summary ---
Author Organization [employer] [facility] Address [address] [place] [address] Care Team Providers Care Solar Sales Advisor Name Role Phone Unavailable Primary Care Provider Unavailabl e Encounter Details Date Type Department Care Team (Late st Contact Info) Description 10/03/[address] [facility] - Main Lab [address] [place] [address] Angelo Kasper MD [address] [place] [phone] Encounter for other general examination Social History [...] AM EST) WBC 4.2(L) 4.8 - 10.8 K/[facility] LAB HEMETOLOGY METHOD 10/03/2024 11:02 AM EST [facility] RBC 4.00 3.80 - 4.80 M/[facility] LAB HEMETOLOGY METHOD 10/03/2024 11:02 AM [place] [...] MD LAB BLOOD ORDERABLES Final Res ult [facility] LAB [address] [place] [address], * (ABNORMAL) Basic metabolic panel (10/03/2024 6:25 [...] ORDERABLES Final Res ult [facility] ([facility]) [facility] LAB [address] [place] [address], documented in this encounter Visit Diagnoses Diagnosis Encounter for other general examination documented in this encounter
--- OUTSIDE RECORDS SUMMARY | 2025-02-13 17:02 | XMS_ITS | Clinical Summary ---
Author Organization [facility] Address [address] [place] [address] Care Team Providers Care Religion Teacher Name Role Phone Unavailable Primary Care [...]
--- OUTSIDE RECORDS SUMMARY | 2025-02-13 17:02 | XMS_ITS | Encounter Summary ---
Author Organization [employer] [facility] Address [address] [place] [address] Care Team Providers Care Unix Engineer Name Role Phone Unavailable Primary Care Provider Unavailabl e Encounter Details Date Type Department Care Team (Late st Contact Info) Description 10/05/2024 Lab Requisition [facility] - Main Lab [address] [facility] [place] [address] Angelo Kasper MD [address] [place] [phone] Encounter for other general examination Social History [...] LAB CHEMISTRY METHOD 10/05/2024 11:02 AM EST [facility] LAB Potassium 4.1 3.5 - 5.5 mmol/L LAB CHEMISTRY METHOD 10/05/2024 11:02 AM EST [facility] LAB Chloride 93(L) 96 - 110 mmol/L LAB CHEMISTRY METHOD 10/05/2024 11:02 AM EST [facility] LAB CO2 27 21 - 32 mmol/L LAB CHEMISTRY METHOD 10/05/2024 11:02 AM EST [facility] LAB Anion Gap 6 3 - [...] MD LAB BLOOD ORDERABLES Final Res ult [facility] LAB [address] [place] [address], [place] [phone] documented in this encounter Visit Diagnoses Diagnosis Encounter for other general examination documented in this encounter
--- OUTSIDE RECORDS SUMMARY | 2025-02-13 17:02 | XMS_ITS | Encounter Summary ---
Author Organization [facility] Address [address] [place] [address] Care Team Providers Care Hook And Eye Attacher Name Role Phone Unavailable Primary Care Provider Unavailabl e Encounter Details Date Type Department Care Team (Late st Contact Info) Description 10/09/[address] [facility] Lab [address] [facility] [employer] [place] [address] Angelo Kasper MD [address] [place] [phone] Encounter for other general examination Social History [...] LAB CHEMISTRY METHOD 10/09/2024 12:04 PM EST [facility] LAB Potassium 4.1 3.5 - 5.5 mmol/L LAB CHEMISTRY METHOD 10/09/2024 12:04 PM EST [facility] LAB Chloride 100 96 - 110 mmol/L LAB CHEMISTRY METHOD 10/09/2024 12:04 PM EST [facility] LAB CO2 26 21 - 32 mmol/L LAB CHEMISTRY METHOD 10/09/2024 12:04 PM EST [facility] LAB Anion Gap [...] Res ult [facility] LAB [address] [place] [address], [place] [phone] documented in this encounter Visit Diagnoses Diagnosis Encounter for other general examination documented in this encounter
--- OUTSIDE RECORDS SUMMARY | 2025-02-13 17:02 | XMS_ITS | Encounter Summary ---
Author Organization [employer] [facility] Address [address] [place] [address] Care Team Providers Care Lard Mixer Name Role Phone Unavailable Primary Care Provider Unavailabl e Encounter Details Date Type Department Care Team (Late st Contact Info) Description 09/30/2024 Lab Requisition [facility] - Main Lab [address] [place] [address] Angelo Kasper MD [address] [place] [address] [phone] Encounter for other general examination Social History [...] LAB HEMETOLOGY METHOD 09/30/2024 1:38 PM EST [facility] LAB RBC 4.10 3.80 - 4.80 M/mcL LAB HEMETOLOGY METHOD 09/30/2024 1:38 PM EST [facility] LAB Hemoglobin 12.4 11.5 - 16.0 g/dL LAB HEMETOLOGY METHOD 09/30/2024 1:38 PM EST [facility] LAB Hematocrit 38.8 35.0 - 47.0 % LAB HEMETOLOGY METHOD 09/30/2024 1:38 PM [facility] LAB MCV 95.1 79.0 - 98.0 FL LAB HEMETOLOGY METHOD 09/30/2024 1:38 PM [facility] LAB MCH 30.4 27.0 - 32.0 pcg LAB HEMETOLOGY METHOD 09/30/2024 1:38 PM EST [facility] LAB MCHC 32.0 32.0 - 37.0 g/dL LAB HEMETOLOGY METHOD 09/30/2024 1:38 PM [facility] LAB RDW 14.1 11.0 - 15.0 % LAB HEMETOLOGY METHOD 09/30/2024 1:38 PM [facility] LAB Platelets 279 130 - 400 K/mcL LAB HEMETOLOGY METHOD 09/30/2024 1:38 PM EST [facility] MPV 9.4 7.0 - [...] MD LAB BLOOD ORDERABLES Final Res ult [facility] [address] [place] [address], * (ABNORMAL) Basic metabolic panel (09/30/2024 7:07 [...] MD LAB BLOOD ORDERABLES Final Res ult [facility] LAB [address] [place] [address], documented in this encounter Visit Diagnoses Diagnosis Encounter for other general examination documented in this encounter
--- OUTSIDE RECORDS SUMMARY | 2025-02-13 17:02 | XMS_ITS | Encounter Summary ---
Author Organization [facility] Address [address] [place] [address] Care Team Providers Care Electron Beam Welder Name Role Phone Unavailable Primary Care Provider Unavailabl e Encounter Details Date Type Department Care Team (Late st Contact Info) Description 10/11/2024 Lab Requisition [facility] Lab [address] [facility] [place] [address] Angelo Kasper MD [address] [place] [phone] Encounter for other general examination Social History [...] LAB CHEMISTRY METHOD 10/11/2024 1:13 PM EST [facility] Potassium 4.0 3.5 - 5.5 mmol/L LAB CHEMISTRY METHOD 10/11/2024 1:13 PM EST [facility] Chloride 102 96 - 110 mmol/L LAB CHEMISTRY METHOD 10/11/2024 1:13 PM EST [facility] LAB CO2 23 21 - 32 mmol/L LAB CHEMISTRY METHOD 10/11/2024 1:13 PM EST [facility] LAB Anion Gap 9 3 - 11 LAB CHEMISTRY METHOD 10/11/2024 1:13 PM [facility] LAB Glucose 80 70 - 100 mg/dL LAB CHEMISTRY METHOD 10/11/2024 1:13 PM [facility] BUN 25 5 - 25 mg/dL LAB CHEMISTRY METHOD 10/11/2024 1:13 PM [facility] Creatinine 0.99 0.50 - 1.10 mg/dL LAB CHEMISTRY METHOD 10/11/2024 1:13 PM [facility] LAB eGFR 56(L) >=60 mL/min/1. 73m2 LAB CHEMISTRY METHOD 10/11/2024 1:13 PM [facility] LAB Comment:Calculation based on the??Chronic Kidney Disease Epidemiology Collaboration (CKD-EPI) equation refit??without adjustment for race. BUN/Creatinine Ratio 25.3 LAB CHEMISTRY METHOD 10/11/2024 1:13 PM [facility] Calcium 8.7 8.5 - 10.5 mg/dL LAB CHEMISTRY METHOD 10/11/2024 1:13 PM [facility] Blood Venous blood specimen / Unknown Venipuncture / Unknown 10/11/2024 7:25 AM EST 10/11/2024 11:51 AM EST us Angelo Kasper MD LAB BLOOD ORDERABLES Final Res ult [facility] [address] [place] [address], documented in this encounter Visit Diagnoses Diagnosis Encounter for other general examination documented in this encounter
--- OUTSIDE RECORDS SUMMARY | 2025-02-13 17:02 | XMS_ITS | Encounter Summary ---
Author Organization [facility] Address [address] [place] [address] Care Team Providers Care Apprenticeship Representative Name Role Phone Unavailable Primary Care Provider Unavailabl e Encounter Details Date Type Department Care Team (Late st Contact Info) Description 10/04/2024 Lab Requisition [facility] - Main Lab [address] [place] [address] Angelo Kasper MD [address] [place] [phone] Encounter for other general examination Social History [...] LAB CHEMISTRY METHOD 10/04/2024 10:45 AM EST [facility] Blood Venous blood specimen / Unknown Venipuncture / Unknown 10/04/2024 5:56 AM EST 10/04/2024 9:06 AM EST Angelo Kasper MD LAB BLOOD ORDERABLES Final Res ult [facility] [address] [place] [address], [place] [phone] documented in this encounter Visit Diagnoses Diagnosis Encounter for other general examination documented in this encounter
--- OUTSIDE RECORDS SUMMARY | 2025-02-13 17:02 | XMS_ITS | Encounter Summary ---
Author Organization [employer] Address [address] [place] [address] Care Team Providers Care Unstacker Name Role Phone Unavailable Primary Care Provider Unavailabl e Encounter Details Date Type Department Care Team (Late st Contact Info) Description 09/29/2024 Lab Requisition [facility] - Main Lab [address] [place] [address] Angelo Kasper MD [address] [place] [phone] Encounter for other general examination Social History [...] LAB HEMETOLOGY METHOD 09/29/2024 11:08 AM EST [facility] RBC 4.10 3.80 - 4.80 M/mcL LAB HEMETOLOGY METHOD 09/29/2024 11:08 AM [facility] LAB Hemoglobin 12.5 11.5 - 16.0 g/dL LAB HEMETOLOGY METHOD 09/29/2024 11:08 AM [facility] LAB Hematocrit 39.9 35.0 - 47.0 % LAB HEMETOLOGY METHOD 09/29/2024 11:08 AM [facility] LAB MCV 96.8 79.0 - 98.0 FL LAB HEMETOLOGY METHOD 09/29/2024 11:08 AM [facility] LAB MCH 30.3 27.0 - 32.0 pcg LAB HEMETOLOGY METHOD 09/29/2024 11:08 AM [facility] LAB MCHC 31.3(L) 32.0 - 37.0 g/dL LAB HEMETOLOGY METHOD 09/29/2024 11:08 AM [facility] LAB RDW 14.0 11.0 - 15.0 % LAB HEMETOLOGY METHOD 09/29/2024 11:08 AM [facility] LAB Platelets 293 130 - 400 K/mcL LAB HEMETOLOGY METHOD 09/29/2024 11:08 AM [facility] LAB MPV 9.5 7.0 - 11.0 FL LAB HEMETOLOGY METHOD 09/29/2024 11:08 AM [facility] LAB NRBC 0.0 <1.0 % LAB HEMETOLOGY METHOD 09/29/2024 11:08 AM [facility] LAB NRBC Absolute 0.00 <0.10 K/mcL LAB HEMETOLOGY METHOD 09/29/2024 11:08 AM [facility] LAB Neutrophils Relative 54.5 % LAB HEMETOLOGY METHOD 09/29/2024 11:08 AM [facility] Lymphocytes Relative 34.1 % LAB HEMETOLOGY METHOD 09/29/2024 11:08 AM [facility] Monocytes Relative 5.0 % LAB HEMETOLOGY METHOD 09/29/2024 11:08 AM [facility] Eosinophils Relative 4.3 % LAB HEMETOLOGY METHOD 09/29/2024 11:08 AM [facility] Basophils Relative 1.0 % LAB HEMETOLOGY METHOD 09/29/2024 11:08 AM [facility] LAB Immature Granulocytes Relative 1.1 % LAB HEMETOLOGY METHOD 09/29/2024 11:08 AM [facility] LAB Neutrophils Absolute 6.25 1.50 - 7.00 K/mcL LAB HEMETOLOGY METHOD 09/29/2024 11:08 AM [facility] LAB Lymphocytes Absolute 3.93 1.00 - 5.00 K/mcL LAB HEMETOLOGY METHOD 09/29/2024 11:08 AM [facility] Monocytes Absolute 0.58 0.20 - 1.00 K/mcL LAB HEMETOLOGY METHOD 09/29/2024 11:08 AM [facility] LAB Eosinophils Absolute 0.50 0.00 - 0.50 K/mcL LAB HEMETOLOGY METHOD 09/29/2024 11:08 AM [facility] Basophils Absolute 0.12 0.00 - 0.20 K/mcL LAB HEMETOLOGY METHOD 09/29/2024 11:08 AM [facility] LAB Immature Granulocytes Absolute 0.13(H) 0.00 - 0.03 K/mcL LAB HEMETOLOGY METHOD 09/29/2024 11:08 AM [facility] LAB Blood Venous blood specimen / Unknown Venipuncture / Unknown 09/29/2024 7:35 AM EST 09/29/2024 10:30 AM EST us Angelo Kasper MD LAB BLOOD ORDERABLES Final Res ult [facility] LAB [address] [place] [address], [place] [phone] * Magnesium (09/29/2024 7:35 AM EST) [facility] Magnesium 2.1 1.9 - 2.6 mg/dL LAB CHEMISTRY METHOD 09/29/2024 11:09 AM EST [facility] Blood Venous blood specimen / Unknown Venipuncture / Unknown 09/29/2024 7:35 AM EST 09/29/2024 10:30 AM EST us Angelo Kasper MD LAB BLOOD ORDERABLES Final Res ult [facility] [address] [place] [address], [place] [phone] * (ABNORMAL) Comprehensive metabolic panel (09/29/2024 7:35 AM EST) [facility] Sodium 138 133 - 145 mmol/L LAB CHEMISTRY METHOD 09/29/2024 11:09 AM [facility] LAB Potassium 4.8 3.5 - 5.5 mmol/L LAB CHEMISTRY METHOD 09/29/2024 11:09 AM [facility] Chloride 107 96 - 110 mmol/L LAB CHEMISTRY METHOD 09/29/2024 11:09 AM [facility] CO2 24 21 - 32 mmol/L LAB CHEMISTRY METHOD 09/29/2024 11:09 AM [facility] Anion Gap 7 3 - 11 LAB CHEMISTRY METHOD 09/29/2024 11:09 AM [facility] Glucose 75 70 - 100 mg/dL LAB CHEMISTRY METHOD 09/29/2024 11:09 AM [facility] BUN 16 5 - 25 mg/dL LAB CHEMISTRY METHOD 09/29/2024 11:09 AM [facility] Creatinine 0.79 0.50 - 1.10 mg/dL LAB CHEMISTRY METHOD 09/29/2024 11:09 AM [facility] LAB eGFR 73 >=60 mL/min/1. 73m2 LAB CHEMISTRY METHOD 09/29/2024 11:09 AM [facility] LAB Comment:Calculation based on the??Chronic Kidney Disease Epidemiology Collaboration (CKD-EPI) equation refit??without adjustment for race. BUN/Creatinine Ratio 20.3 LAB CHEMISTRY METHOD 09/29/2024 11:09 AM [facility] Calcium 9.3 8.5 - 10.5 mg/dL LAB CHEMISTRY METHOD 09/29/2024 11:09 AM [facility] LAB AST (SGOT) 29 10 - 42 unit/L LAB CHEMISTRY METHOD 09/29/2024 11:09 AM [facility] LAB ALT (SGPT) 33 10 - 60 unit/L LAB CHEMISTRY METHOD 09/29/2024 11:09 AM [facility] Alkaline Phosphatase 134(H) 42 - 121 unit/L LAB CHEMISTRY METHOD 09/29/2024 11:09 AM [facility] Total Protein 6.8 6.0 - 8.0 g/dL LAB CHEMISTRY METHOD 09/29/2024 11:09 AM [facility] Albumin 3.5 3.2 - 5.0 g/dL LAB CHEMISTRY METHOD 09/29/2024 11:09 AM [facility] Total Bilirubin 0.5 0.0 - 1.4 mg/dL LAB CHEMISTRY METHOD 09/29/2024 11:09 AM [facility] Blood Venous blood specimen / Unknown Venipuncture / Unknown 09/29/2024 7:35 AM EST 09/29/2024 10:30 AM EST us Angelo Kasper MD LAB BLOOD ORDERABLES Final Res ult [facility] LAB [address] [place] [address], [place] [phone] documented in this encounter Visit Diagnoses Diagnosis Encounter for other general examination documented in this encounter
--- OUTSIDE RECORDS SUMMARY | 2025-02-13 17:02 | XMS_ITS | Clinical Summary ---
Author Organization [address] [facility] Address [address] [place] [address] Phone Care Team Providers Care Cardiac Cath Lab Technologist Name Role Phone Unavailable Primary Care [...] age to complete this topic Meningococcal B Vaccine Aged Out No l onger eligible based on patient's age to complete this topic RSV Immunization Patients Un angelica 20 months Aged Out No longer eligible b ased on patient's age to complete this topic Varicella Vaccines Aged Out No longer eligible based on patient's age to complete this topic
--- OUTSIDE RECORDS SUMMARY | 2025-02-13 17:02 | XMS_ITS | Encounter Summary ---
Author Organization [facility] Address [address] [place] [address] Care Team Providers Care Tank Builder Name Role Phone Unavailable Primary Care Provider Unavailabl e Encounter Details Date Type Department Care Team (Late st Contact Info) Description 10/06/2024 Lab Requisition [facility] - Main Lab [address] [facility] [place] [address] Angelo Kasper MD [address] [place] [address] Encounter for other general examination Social History [...] LAB CHEMISTRY METHOD 10/06/2024 9:33 AM EST [facility] LAB Blood Venous blood specimen [...] ORDERABLES Final Res ult Performing Organization Address City/[facility]/ZIP Co de Phone Number [facility] LAB [address] [place] [address], [place] [phone] * Thyroid stimulating hormone (10/06/2024 5:48 AM EST) [facility] TSH 2.14 0.40 - 4.00 mcIU/mL LAB CHEMISTRY METHOD 10/06/2024 8:28 AM EST [facility] LAB Blood Venous blood specimen / Unknown Venipuncture / Unknown 10/06/2024 5:48 AM EST 10/06/2024 6:48 AM EST us Angelo Kasper MD LAB BLOOD ORDERABLES Final Res ult Performing Organization Address [facility]/ZIP Co de Phone Number [facility] LAB [address] [place] [address], [place] [phone] * (ABNORMAL) Basic metabolic panel (10/06/2024 5:48 AM EST) [facility] Sodium 130(L) 133 - 145 mmol/L LAB CHEMISTRY METHOD 10/06/2024 7:23 AM EST [facility] LAB Potassium 4.0 3.5 - [...] [facility] Anion Gap 6 3 - 11 LAB CHEMISTRY METHOD 10/06/2024 7:23 AM [facility] LAB Glucose 76 70 - 100 mg/dL LAB CHEMISTRY METHOD 10/06/2024 7:23 AM [facility] LAB BUN 9 5 - 25 mg/dL LAB CHEMISTRY METHOD 10/06/2024 7:23 AM [facility] LAB Creatinine 0.62 0.50 - 1.10 mg/dL LAB CHEMISTRY METHOD 10/06/2024 7:23 AM [facility] LAB eGFR 87 >=60 mL/min/1. 73m2 LAB CHEMISTRY METHOD 10/06/2024 7:23 AM [facility] LAB Comment:Calculation based on the??Chronic Kidney Disease Epidemiology Collaboration (CKD-EPI) equation refit??without adjustment for race. BUN/Creatinine Ratio 14.5 LAB CHEMISTRY METHOD 10/06/2024 7:23 AM [facility] LAB Calcium 8.4(L) 8.5 - 10.5 mg/dL LAB CHEMISTRY METHOD 10/06/2024 7:23 AM [facility] LAB Blood Venous blood specimen / Unknown Venipuncture / Unknown 10/06/2024 5:48 AM EST 10/06/2024 6:48 AM EST us Angelo Kasper MD LAB BLOOD ORDERABLES Final Res ult [facility] LAB [address] [place] [address], documented in this encounter Visit Diagnoses Diagnosis Encounter for other general examination documented in this encounter
--- OUTSIDE RECORDS SUMMARY | 2025-02-13 17:02 | XMS_ITS | Encounter Summary ---
Author Organization [facility] Address [address] [place] [address] Care Team Providers Care High Tension Tester Name Role Phone Unavailable Primary Care Provider Unavailabl e Encounter Details Date Type Department Care Team (Late st Contact Info) Description 10/07/2024 Lab Requisition [facility] Lab [address] [facility] [place] [address] Angelo Kasper MD [address] [place] [address] Encounter for other general examination Social History [...] mg/dL LAB CHEMISTRY METHOD 10/07/2024 2:59 PM [facility] BUN 9 5 - 25 mg/dL LAB CHEMISTRY METHOD 10/07/2024 2:59 PM [facility] Creatinine 0.55 0.50 - 1.10 mg/dL LAB CHEMISTRY METHOD 10/07/2024 2:59 PM [facility] eGFR 89 >=60 mL/min/1. 73m2 LAB CHEMISTRY METHOD 10/07/2024 2:59 PM [facility] Comment:Calculation based on the??Chronic Kidney Disease Epidemiology Collaboration (CKD-EPI) equation refit??without adjustment for race. BUN/Creatinine Ratio 16.4 LAB CHEMISTRY METHOD 10/07/2024 2:59 PM [facility] Calcium 8.3(L) 8.5 - 10.5 mg/dL LAB CHEMISTRY METHOD 10/07/2024 2:59 PM [facility] Blood Venous blood specimen / Unknown 10/07/2024 7:28 AM EST 10/07/2024 12:05 PM EST us Angelo Kasper MD LAB BLOOD ORDERABLES Final Res ult [facility] [address] [place] [address], documented in this encounter Visit Diagnoses Diagnosis Encounter for other general examination documented in this encounter
--- OUTSIDE RECORDS SUMMARY | 2025-02-13 17:02 | XMS_ITS | Encounter Summary ---
Author Organization [employer] Address [address] [place] [address] Care Team Providers Care Swing Ride Operator Name Role Phone Unavailable Primary Care Provider Unavailabl e Encounter Details Date Type Department Care Team (Late st Contact Info) Description 10/04/2024 Lab Requisition [facility] - Main Lab 299 [facility] [place] [address] Angelo Kasper MD [address] [place] [id number] Encounter for other general examination Social History [...] microscopic and culture (10/04/2024 4:00 AM EST) [facility] Specific [place] Urine 1.018 1.003 - 1.030 LAB URINALYSIS - AUTOMATED METHOD 10/04/2024 9:55 AM [facility] LAB pH, Urine 7.0 5.0 - 8.0 pH LAB URINALYSIS - AUTOMATED METHOD 10/04/2024 9:55 AM [facility] LAB Leukocytes, Urine Negative Negative LAB URINALYSIS - AUTOMATED METHOD 10/04/2024 9:55 AM [facility] LAB Nitrite, Urine Negative Negative LAB URINALYSIS - AUTOMATED METHOD 10/04/2024 9:55 AM [facility] LAB Protein, Urine Negative <=Trace mg/dL LAB URINALYSIS - AUTOMATED METHOD 10/04/2024 9:55 AM [facility] LAB Glucose, Urine Negative Negative mg/dL LAB URINALYSIS - AUTOMATED METHOD 10/04/2024 9:55 AM [facility] LAB Ketones, Urine Trace(A) Negative mg/dL LAB URINALYSIS - AUTOMATED METHOD 10/04/2024 9:55 AM [facility] LAB Urobilinogen, Urine 1.0 0.2 - 1.0 mg/dL LAB URINALYSIS - AUTOMATED METHOD 10/04/2024 9:55 AM [facility] LAB Bilirubin, Urine Negative Negative LAB URINALYSIS - AUTOMATED METHOD 10/04/2024 9:55 AM [facility] LAB Blood, Urine Negative Negative LAB URINALYSIS - AUTOMATED METHOD 10/04/2024 9:55 AM [facility] LAB Urine Urine specimen obtained by clean catch procedure / Unknown Non-blood Collection / Unknown 10/04/2024 4:00 AM EST 10/04/2024 9:37 AM EST us Angelo Kasper MD LAB URINE ORDERABLES Final Res ult [facility] [address] [place] [address], [place] [phone] * Navarro urine culture tube (10/04/2024 4:00 AM EST) Extra Tube Hold for add-ons. 10/04/2024 11:01 AM EST [facility] LAB Comment:Auto resulted. Urine Urine specimen obtained by clean catch procedure / Unknown Non-blood Collection / Unknown 10/04/2024 4:00 AM EST 10/04/2024 9:37 AM EST us Angelo Kasper MD LAB URINE ORDERABLES Final Res ult [facility] [address] [place] [address], [place] [phone] * Sodium, urine, random (10/04/2024 4:00 AM EST) Sodium, Ur 87 mmol/L LAB CHEMISTRY METHOD 10/04/2024 10:46 AM EST [facility] Urine Urine specimen obtained by clean catch procedure / Unknown Non-blood Collection / Unknown 10/04/2024 4:00 AM EST 10/04/2024 9:37 AM EST us Angelo Kasper MD LAB URINE ORDERABLES Final Res ult [facility] [address] [place] [address], [place] [phone] * Osmolality, urine (10/04/2024 4:00 AM EST) Osmolality, Urine 475 300 - 1,300 mOsm/kg LAB CHEMISTRY METHOD 10/04/2024 10:45 AM EST [facility] Urine Urine specimen obtained by clean catch procedure / Unknown Non-blood Collection / Unknown 10/04/2024 4:00 AM EST 10/04/2024 9:37 AM EST us Angelo Kasper MD LAB URINE ORDERABLES Final Res ult [facility] ([facility]) [facility] [address] [place] [address], documented in this encounter Visit Diagnoses Diagnosis Encounter for other general examination documented in this encounter
== END 2025-02-13 15:12 | disposition home or self-care (01) ==
LOC: HO.PMC 14:17
PROVIDERS: PCP Internal Medicine; Visit Provider Anesthesiology
DX: M06.9 Rheumatoid arthritis, unspecified (principal); M47.816 Spondylosis without myelopathy or radiculopathy, lumbar region; M46.1 Sacroiliitis, not elsewhere classified; M53.3 Sacrococcygeal disorders, not elsewhere classified; G89.4 Chronic pain syndrome; S32.010A Wedge compression fracture of first lumbar vertebra, initial encounter for closed fracture
CPT/HCPCS: 99024

== ENCOUNTER → 2025-02-13 14:17 | Outpatient (BNVA) | payer MEDICARE, OTHER, SELFPAY | PROVIDERS: PCP Internal Medicine; Visit Provider Anesthesiology | DX: M06.9 Rheumatoid arthritis, unspecified (principal); M47.816 Spondylosis without myelopathy or radiculopathy, lumbar region; M46.1 Sacroiliitis, not elsewhere classified; M53.3 Sacrococcygeal disorders, not elsewhere classified; G89.4 Chronic pain syndrome; S32.010A Wedge compression fracture of first lumbar vertebra, initial encounter for closed fracture; X58.XXXA Exposure to other specified factors, initial encounter; Y93.9 Activity, unspecified; Y92.9 Unspecified place or not applicable; Y99.9 Unspecified external cause status | CPT/HCPCS: 99212 ==

== ENCOUNTER 2025-02-19 14:40 | Outpatient (REF) | payer MEDICARE, OTHER, SELFPAY ==
[2025-02-19 14:59] LABS: MANUAL DIFF FLAG NO
[2025-02-19 15:21] LABS: Basophils Absolute Auto 0.1 X10*3/uL (0.0-0.2); Basophils Percent Auto 0.9 % (0-2); Eosinophils Absolute Auto 0.3 X10*3/uL (0.0-0.4); Eosinophils Percent Auto 4.4 % (0-4); Hematocrit 37.6 % (37.0-47.0); Hemoglobin 12.1 g/dl (12.0-16.0); Imm Gran Abs Auto 0.02 X10*3/uL (0.00-0.03); Imm Gran Pct Auto 0.3 % (0.0-0.4); Lymphocytes Absolute Auto 1.6 X10*3/uL (1.2-4.9); Mean Corpuscular HGB Conc 32.2 g/dl (31.0-35.0); Mean Corpuscular Hemoglobin 30.3 pg (27.0-33.0); Mean Platelet Volume 9.1 fL (9.4-12.3); Monocytes Absolute Auto 0.4 X10*3/uL (0.1-1.2); Neutrophils Absolute Auto 5.2 x10*3/uL (2.0-8.3); Neutrophils Percent Auto 68.4 % (45-73); Platelet Count 263 X10*3/uL (160-400); Red Cell Distribution Width 13.3 % (11.0-16.0); White Blood Count 7.5 X10*3/uL (4.8-10.8)
[2025-02-19 16:28] LABS: Erythrocyte Sedimentation Rate 23 MM/HR (0-20)
[2025-02-19 16:42] LABS: Alanine Aminotransferase 15 U/L (0-31); Albumin Level 3.8 g/dL (3.5-5.0); Alkaline Phosphatase 106 U/L (39-117); Anion Gap 13 (12-20); Aspartate Amino Transferase 28 U/L (5-31); Bilirubin Total 0.3 mg/dL (0.0-1.0); Blood Urea Nitrogen 15 mg/dL (9-16); Calcium 9.6 mg/dL (8.4-10.2); Carbon Dioxide 23 mmol/L (22-29); Chloride 108 mmol/L (96-108); Estimated Glomerular Filt Rate > 60; Glucose Random 87 mg/dL (60-115); Potassium 4.1 mmol/L (3.3-5.1); Sodium 140 mmol/L (135-145)
--- OUTSIDE RECORDS SUMMARY | 2025-02-19 17:25 | XMS_ITS | Clinical Summary ---
Author Organization [facility] Address [address] [place] [address] Care Team Providers Care Production Clerks Supervisor Name Role Phone Unavailable Primary Care Provider [...]
--- OUTSIDE RECORDS SUMMARY | 2025-02-19 17:26 | XMS_ITS | Encounter Summary ---
Author Organization [facility] Address [address] [place] [address] Care Team Providers Care Computer Systems Security Administrator Name Role Phone Unavailable Primary Care Provider Unavailabl e Encounter Details Date Type Department Care Team (Late st Contact Info) Description 10/03/2024 Lab Requisition [facility] - Main Lab [address] [place] [address] Angelo Kasper MD [address] [place] [address] Encounter for other general examination Social History [...] AM EST) WBC 4.2(L) 4.8 - 10.8 K/[facility] LAB HEMETOLOGY METHOD 10/03/2024 11:02 AM EST [facility] RBC 4.00 3.80 - 4.80 M/[facility] LAB HEMETOLOGY METHOD 10/03/2024 11:[address] [facility] Hemoglobin 12.0 11.5 - 16.0 g/dL LAB HEMETOLOGY METHOD 10/03/2024 11:[address] [facility] LAB Hematocrit 37.5 35.0 - 47.0 % LAB HEMETOLOGY METHOD 10/03/2024 11:[address] [facility] MCV 94.5 79.0 - 98.0 FL LAB HEMETOLOGY METHOD 10/03/2024 11:[address] [facility] MCH 30.2 27.0 - 32.0 pcg LAB HEMETOLOGY METHOD 10/03/2024 11:[address] [facility] LAB MCHC 32.0 32.0 - 37.0 g/dL LAB HEMETOLOGY METHOD 10/03/2024 11:[address] [facility] RDW 13.8 11.0 - 15.0 % LAB HEMETOLOGY METHOD 10/03/2024 11:[address] [facility] Platelets 224 130 - 400 K/mcL LAB HEMETOLOGY METHOD 10/03/2024 11:[address] [facility] MPV 9.6 7.0 - 11.0 FL LAB HEMETOLOGY METHOD 10/03/2024 11:[address] [facility] NRBC 0.0 <1.0 % LAB HEMETOLOGY METHOD 10/03/2024 11:[address] [facility] NRBC Absolute 0.00 <0.10 K/mcL LAB HEMETOLOGY METHOD 10/03/2024 11:[address] [facility] Neutrophils Relative 57.4 % LAB HEMETOLOGY METHOD 10/03/2024 11:[address] [facility] Lymphocytes Relative 22.8 % LAB HEMETOLOGY METHOD 10/03/2024 11:[address] [facility] Monocytes Relative 13.5 % LAB HEMETOLOGY METHOD 10/03/2024 11:[address] [facility] Eosinophils Relative 3.1 % LAB HEMETOLOGY METHOD 10/03/2024 11:[address] [facility] Basophils Relative 1.0 % LAB HEMETOLOGY METHOD 10/03/2024 11:[address] [facility] Immature Granulocytes Relative 2.2 % LAB HEMETOLOGY METHOD 10/03/2024 11:[address] [facility] Neutrophils Absolute 2.39 1.50 - 7.00 K/mcL LAB HEMETOLOGY METHOD 10/03/2024 11:[address] [facility] Lymphocytes Absolute 0.95(L) 1.00 - 5.00 K/mcL LAB HEMETOLOGY METHOD 10/03/2024 11:[address] [facility] Monocytes Absolute 0.56 0.20 - 1.00 K/mcL LAB HEMETOLOGY METHOD 10/03/2024 11:[address] [facility] Eosinophils Absolute 0.13 0.00 - 0.50 K/mcL LAB HEMETOLOGY METHOD 10/03/2024 11:[address] [facility] Basophils Absolute 0.04 0.00 - 0.20 K/mcL LAB HEMETOLOGY METHOD 10/03/2024 11:[address] [facility] Immature Granulocytes Absolute 0.09(H) 0.00 - 0.03 K/mcL LAB HEMETOLOGY METHOD 10/03/2024 11:[address] [facility] Blood Venous blood specimen / Unknown Venipuncture / Unknown 10/03/2024 6:25 AM EST 10/03/2024 9:48 AM EST us Angelo Kasper MD LAB BLOOD ORDERABLES Final Res ult [facility] [address] [place] [address], * (ABNORMAL) Basic metabolic panel (10/03/2024 6:25 AM EST) Sodium 128(L) 133 - 145 mmol/L LAB CHEMISTRY METHOD 10/03/2024 11:[address] [facility] Potassium 4.4 3.5 - 5.5 mmol/L LAB CHEMISTRY METHOD 10/03/2024 11:[address] [facility] Chloride 94(L) 96 - 110 mmol/L LAB CHEMISTRY METHOD 10/03/2024 11:[address] [facility] CO2 28 21 - 32 mmol/L LAB CHEMISTRY METHOD 10/03/2024 11:[address] [facility] Anion Gap 6 3 - 11 LAB CHEMISTRY METHOD 10/03/2024 11:[address] [facility] Glucose 66(L) 70 - 100 mg/dL LAB CHEMISTRY METHOD 10/03/2024 11:[address] [facility] BUN 13 5 - 25 mg/dL LAB CHEMISTRY METHOD 10/03/2024 11:[address] [facility] Creatinine 0.67 0.50 - 1.10 mg/dL LAB CHEMISTRY METHOD 10/03/2024 11:[address] [facility] eGFR 85 >=60 mL/min/1. 73m2 LAB CHEMISTRY METHOD 10/03/2024 11:[address] [facility] Comment:Calculation based on the??Chronic Kidney Disease Epidemiology Collaboration (CKD-EPI) equation refit??without adjustment for race. BUN/Creatinine Ratio 19.4 LAB CHEMISTRY METHOD 10/03/2024 11:[address] [facility] Calcium 8.9 8.5 - 10.5 mg/dL LAB CHEMISTRY METHOD 10/03/2024 11:[address] [facility] Blood Venous blood specimen / Unknown Venipuncture / Unknown 10/03/2024 6:25 AM EST 10/03/2024 9:48 AM EST us Angelo Kasper MD LAB BLOOD ORDERABLES Final Res ult [facility] [address] [place] [address], documented in this encounter Visit Diagnoses Diagnosis Encounter for other general examination documented in this encounter
--- OUTSIDE RECORDS SUMMARY | 2025-02-19 17:26 | XMS_ITS | Encounter Summary ---
Author Organization [facility] Address [address] [place] [address] Care Team Providers Care Petroleum Geologist Name Role Phone Unavailable Primary Care Provider Unavailabl e Encounter Details Date Type Department Care Team (Late st Contact Info) Description 10/04/2024 Lab Requisition [facility] - Main Lab [address] [place] [address] Angelo Kasper MD [address] [place] [phone] Encounter for other general examination Social History [...] LAB CHEMISTRY METHOD 10/04/2024 10:45 AM EST [facility] Blood Venous blood specimen / Unknown Venipuncture / Unknown 10/04/2024 5:56 AM EST 10/04/2024 9:06 AM EST Angelo Kasper MD LAB BLOOD ORDERABLES Final Res ult [facility] [address] [place] [address], [place] [phone] documented in this encounter Visit Diagnoses Diagnosis Encounter for other general examination documented in this encounter
--- OUTSIDE RECORDS SUMMARY | 2025-02-19 17:26 | XMS_ITS | Encounter Summary ---
Author Organization [employer] Address [address] [place] [address] Care Team Providers Care Business Analyst Ecommerce Name Role Phone Unavailable Primary Care Provider Unavailabl e Encounter Details Date Type Department Care Team (Late st Contact Info) Description 09/29/2024 Lab Requisition [facility] - Main Lab [address] [place] [address] Angelo Kasper MD [address] [place] [address] Encounter for other general examination Social History [...] METHOD 09/29/2024 11:08 AM EST [facility] RBC 4.10 3.80 - 4.80 M/mcL LAB HEMETOLOGY METHOD 09/29/2024 11:08 AM [facility] LAB Hemoglobin 12.5 11.5 - 16.0 g/dL LAB HEMETOLOGY METHOD 09/29/2024 11:08 AM [facility] LAB Hematocrit 39.9 35.0 - 47.0 % LAB HEMETOLOGY METHOD 09/29/2024 11:08 AM [facility] LAB MCV 96.8 79.0 - 98.0 FL LAB HEMETOLOGY METHOD 09/29/2024 11:08 AM [facility] LAB MCH 30.3 27.0 - 32.0 pcg LAB HEMETOLOGY METHOD 09/29/2024 11:08 AM [facility] LAB MCHC 31.3(L) 32.0 - 37.0 g/dL LAB HEMETOLOGY METHOD 09/29/2024 11:08 AM [facility] LAB RDW 14.0 11.0 - 15.0 % LAB HEMETOLOGY METHOD 09/29/2024 11:08 AM [facility] LAB Platelets 293 130 - 400 K/mcL LAB HEMETOLOGY METHOD 09/29/2024 11:08 AM [facility] LAB MPV 9.5 7.0 - 11.0 FL LAB HEMETOLOGY METHOD 09/29/2024 11:08 AM [facility] LAB NRBC 0.0 <1.0 % LAB HEMETOLOGY METHOD 09/29/2024 11:08 AM [facility] LAB NRBC Absolute 0.00 <0.10 K/mcL LAB HEMETOLOGY METHOD 09/29/2024 11:08 AM [facility] LAB Neutrophils Relative 54.5 % LAB HEMETOLOGY METHOD 09/29/2024 11:08 AM [facility] LAB Lymphocytes Relative 34.1 % LAB HEMETOLOGY METHOD 09/29/2024 11:08 AM [facility] LAB Monocytes Relative 5.0 % LAB HEMETOLOGY METHOD 09/29/2024 11:08 AM [facility] LAB Eosinophils Relative 4.3 % LAB HEMETOLOGY METHOD 09/29/2024 11:08 AM [facility] LAB Basophils Relative 1.0 % LAB HEMETOLOGY METHOD 09/29/2024 11:08 AM [facility] LAB Immature Granulocytes Relative 1.1 % LAB HEMETOLOGY METHOD 09/29/2024 11:08 AM [facility] LAB Neutrophils Absolute 6.25 1.50 - 7.00 K/mcL LAB HEMETOLOGY METHOD 09/29/2024 11:08 AM [facility] LAB Lymphocytes Absolute 3.93 1.00 - 5.00 K/mcL LAB HEMETOLOGY METHOD 09/29/2024 11:08 AM [facility] LAB Monocytes Absolute 0.58 0.20 - 1.00 K/mcL LAB HEMETOLOGY METHOD 09/29/2024 11:08 AM [facility] LAB Eosinophils Absolute 0.50 0.00 - 0.50 K/mcL LAB HEMETOLOGY METHOD 09/29/2024 11:08 AM [facility] LAB Basophils Absolute 0.12 0.00 - 0.20 K/mcL LAB HEMETOLOGY METHOD 09/29/2024 11:08 AM [facility] LAB Immature Granulocytes Absolute 0.13(H) 0.00 - 0.03 K/mcL LAB HEMETOLOGY METHOD 09/29/2024 11:08 AM [facility] LAB Blood Venous blood specimen / Unknown Venipuncture / Unknown 09/29/2024 7:35 AM EST 09/29/2024 10:30 AM EST us Angelo Kasper MD LAB BLOOD ORDERABLES Final Res ult [facility] [address] [place] [address], [place] [phone] * Magnesium (09/29/2024 7:35 AM EST) [facility] Magnesium 2.1 1.9 - 2.6 mg/dL LAB CHEMISTRY METHOD 09/29/2024 11:[address] [facility] LAB Blood Venous blood specimen / Unknown Venipuncture / Unknown 09/29/2024 7:35 AM EST 09/29/2024 10:30 AM EST us Angelo Kasper MD LAB BLOOD ORDERABLES Final Res ult [facility] [address] [place] [address], [place] [phone] * (ABNORMAL) Comprehensive metabolic panel (09/29/2024 7:35 AM EST) [facility] Sodium 138 133 - 145 mmol/L LAB CHEMISTRY METHOD 09/29/2024 11:09 AM [facility] LAB Potassium 4.8 3.5 - 5.5 mmol/L LAB CHEMISTRY METHOD 09/29/2024 11:09 AM [facility] LAB Chloride 107 96 - 110 mmol/L LAB CHEMISTRY METHOD 09/29/2024 11:09 AM [facility] LAB CO2 24 21 - 32 mmol/L LAB CHEMISTRY METHOD 09/29/2024 11:09 AM [facility] LAB Anion Gap 7 3 - 11 LAB CHEMISTRY METHOD 09/29/2024 11:09 AM [facility] LAB Glucose 75 70 - 100 mg/dL LAB CHEMISTRY METHOD 09/29/2024 11:09 AM [facility] LAB BUN 16 5 - 25 mg/dL LAB CHEMISTRY METHOD 09/29/2024 11:09 AM [facility] LAB Creatinine 0.79 0.50 - 1.10 mg/dL LAB CHEMISTRY METHOD 09/29/2024 11:09 AM [facility] LAB eGFR 73 >=60 mL/min/1. 73m2 LAB CHEMISTRY METHOD 09/29/2024 11:09 AM [facility] LAB Comment:Calculation based on the??Chronic Kidney Disease Epidemiology Collaboration (CKD-EPI) equation refit??without adjustment for race. BUN/Creatinine Ratio 20.3 LAB CHEMISTRY METHOD 09/29/2024 11:09 AM [facility] LAB Calcium 9.3 8.5 - 10.5 mg/dL LAB CHEMISTRY METHOD 09/29/2024 11:09 AM [facility] LAB AST (SGOT) 29 10 - 42 unit/L LAB CHEMISTRY METHOD 09/29/2024 11:09 AM [facility] LAB ALT (SGPT) 33 10 - 60 unit/L LAB CHEMISTRY METHOD 09/29/2024 11:09 AM [facility] LAB Alkaline Phosphatase 134(H) 42 - 121 unit/L LAB CHEMISTRY METHOD 09/29/2024 11:09 AM [facility] LAB Total Protein 6.8 6.0 - 8.0 g/dL LAB CHEMISTRY METHOD 09/29/2024 11:09 AM [facility] LAB Albumin 3.5 3.2 - 5.0 g/dL LAB CHEMISTRY METHOD 09/29/2024 11:09 AM [facility] LAB Total Bilirubin 0.5 0.0 - 1.4 mg/dL LAB CHEMISTRY METHOD 09/29/2024 11:09 AM [facility] LAB Blood Venous blood specimen / Unknown Venipuncture / Unknown 09/29/2024 7:35 AM EST 09/29/2024 10:30 AM EST us Angelo Kasper MD LAB BLOOD ORDERABLES Final Res ult [facility] [address] [place] [address], [place] [phone] documented in this encounter Visit Diagnoses Diagnosis Encounter for other general examination documented in this encounter
--- OUTSIDE RECORDS SUMMARY | 2025-02-19 17:26 | XMS_ITS | Encounter Summary ---
Author Organization [employer] [facility] Address [address] [place] [address] Care Team Providers Care Occasional Babysitter Name Role Phone Unavailable Primary Care Provider Unavailabl e Encounter Details Date Type Department Care Team (Late st Contact Info) Description 10/09/2024 Lab Requisition [facility] Lab [address] [facility] [place] [address] Angelo Kasper MD [address] [place] [address] Encounter for other general examination Social History [...] 11 LAB CHEMISTRY METHOD 10/09/2024 12:04 PM [facility] LAB Glucose 62(L) 70 - 100 mg/dL LAB CHEMISTRY METHOD 10/09/2024 12:04 PM [facility] BUN 12 5 - 25 mg/dL LAB CHEMISTRY METHOD 10/09/2024 12:04 PM [facility] LAB Creatinine 0.71 0.50 - 1.10 mg/dL LAB CHEMISTRY METHOD 10/09/2024 12:04 PM [facility] LAB eGFR 83 >=60 mL/min/1. 73m2 LAB CHEMISTRY METHOD 10/09/2024 12:04 PM [facility] LAB Comment:Calculation based on the??Chronic Kidney Disease Epidemiology Collaboration (CKD-EPI) equation refit??without adjustment for race. BUN/Creatinine Ratio 16.9 LAB CHEMISTRY METHOD 10/09/2024 12:04 PM [facility] LAB Calcium 8.8 8.5 - 10.5 mg/dL LAB CHEMISTRY METHOD 10/09/2024 12:04 PM [facility] LAB Blood Venous blood specimen / Unknown Venipuncture / Unknown 10/09/2024 7:03 AM EST 10/09/2024 10:19 AM EST us Angelo Kasper MD LAB BLOOD ORDERABLES Final Res ult [facility] LAB [address] [place] [address], [place] [phone] documented in this encounter Visit Diagnoses Diagnosis Encounter for other general examination documented in this encounter
--- OUTSIDE RECORDS SUMMARY | 2025-02-19 17:26 | XMS_ITS | Encounter Summary ---
Author Organization [facility] Address [address] [place] [address] Care Team Providers Care Cold Food Packer Name Role Phone Unavailable Primary Care Provider Unavailabl e Encounter Details Date Type Department Care Team (Late st Contact Info) Description 10/05/2024 Lab Requisition [facility] - Main Lab [address] [facility] [place] [address] Angelo Kasper MD [address] [place] [address] Encounter for other general examination Social History [...] LAB CHEMISTRY METHOD 10/05/2024 11:02 AM EST [facility] LAB Potassium 4.1 3.5 - 5.5 mmol/L LAB CHEMISTRY METHOD 10/05/2024 11:02 AM EST [facility] LAB Chloride 93(L) 96 - 110 mmol/L LAB CHEMISTRY METHOD 10/05/2024 11:02 AM EST [facility] LAB CO2 27 21 - 32 mmol/L LAB CHEMISTRY METHOD 10/05/2024 11:02 AM EST [facility] [...] [facility] LAB [address] [place] [address], [place] [phone] documented in this encounter Visit Diagnoses Diagnosis Encounter for other general examination documented in this encounter
--- OUTSIDE RECORDS SUMMARY | 2025-02-19 17:26 | XMS_ITS | Encounter Summary ---
Author Organization [employer] [facility] Address [address] [place] [address] Care Team Providers Care Public Opinion Survey Taker Name Role Phone Unavailable Primary Care Provider Unavailabl e Encounter Details Date Type Department Care Team (Late st Contact Info) Description 10/07/2024 Lab Requisition [facility] Lab [address] [facility] [place] [address] Angelo Kasper MD [address] [place] [address] Encounter for other general examination Social History [...] mg/dL LAB CHEMISTRY METHOD 10/07/2024 2:59 PM [facility] BUN 9 5 - 25 mg/dL LAB CHEMISTRY METHOD 10/07/2024 2:59 PM [facility] LAB Creatinine 0.55 0.50 - 1.10 mg/dL LAB CHEMISTRY METHOD 10/07/2024 2:59 PM [facility] LAB eGFR 89 >=60 mL/min/1. 73m2 LAB CHEMISTRY METHOD 10/07/2024 2:59 PM [facility] LAB Comment:Calculation based on the??Chronic Kidney Disease Epidemiology Collaboration (CKD-EPI) equation refit??without adjustment for race. BUN/Creatinine Ratio 16.4 LAB CHEMISTRY METHOD 10/07/2024 2:59 PM [facility] LAB Calcium 8.3(L) 8.5 - 10.5 mg/dL LAB CHEMISTRY METHOD 10/07/2024 2:59 PM [facility] LAB Blood Venous blood specimen / Unknown 10/07/2024 7:28 AM EST 10/07/2024 12:05 PM EST us Angelo Kasper MD LAB BLOOD ORDERABLES Final Res ult [facility] LAB [address] [place] [address], documented in this encounter Visit Diagnoses Diagnosis Encounter for other general examination documented in this encounter
--- OUTSIDE RECORDS SUMMARY | 2025-02-19 17:26 | XMS_ITS | Encounter Summary ---
Author Organization [facility] Address [address] [place] [address] Care Team Providers Care Tablet Making Machine Operator Name Role Phone Unavailable Primary Care Provider Unavailabl e Encounter Details Date Type Department Care Team (Late st Contact Info) Description 10/06/2024 Lab Requisition [facility] - Main Lab [address] [facility] [address] Angelo Kasper MD [address] [place] [phone] Encounter for other general examination Social History [...] LAB CHEMISTRY METHOD 10/06/2024 9:33 AM EST [facility] ([facility]) [facility] Blood Venous blood specimen / Unknown Venipuncture / Unknown 10/06/2024 5:48 AM EST 10/06/2024 6:48 AM EST Narrative [facility] - 10/06/2024 9:33 AM EST [facility] ?? 8 AM SPEC: ??5.0-23.0 mcg/dL ?? 4 PM SPEC: ??3.0-16.0 mcg/dL ?? 8 PM SPEC: ??<5.0 mcg/dL us Angelo Kasper MD LAB BLOOD ORDERABLES Final Res ult Performing Organization Address City/[facility]/ZIP Co de Phone Number [facility] [address] [place] [address], [place] [phone] * Thyroid stimulating hormone (10/06/2024 5:48 AM EST) [facility] TSH 2.14 0.40 - 4.00 mcIU/mL LAB CHEMISTRY METHOD 10/06/2024 8:28 AM EST [facility] Blood Venous blood specimen / Unknown Venipuncture / Unknown 10/06/2024 5:48 AM EST 10/06/2024 6:48 AM EST us Angelo Kasper MD LAB BLOOD ORDERABLES Final Res ult Performing Organization Address [facility]/ZIP Co de Phone Number [facility] [address] [place] [address], [place] [phone] * (ABNORMAL) Basic metabolic panel (10/06/2024 5:48 AM EST) [facility] Sodium 130(L) 133 - 145 mmol/L LAB CHEMISTRY METHOD 10/06/2024 7:23 AM EST [facility] Potassium 4.0 3.5 - 5.5 mmol/L LAB CHEMISTRY METHOD 10/06/2024 7:23 AM EST [facility] Chloride 98 96 - 110 mmol/L LAB CHEMISTRY METHOD 10/06/2024 7:23 AM EST [facility] CO2 26 21 - 32 mmol/L LAB CHEMISTRY METHOD 10/06/2024 7:23 AM EST [facility] Anion Gap 6 3 - 11 LAB CHEMISTRY METHOD 10/06/2024 7:23 AM [facility] Glucose 76 70 - 100 mg/dL LAB CHEMISTRY METHOD 10/06/2024 7:23 AM [facility] BUN 9 5 - 25 mg/dL LAB CHEMISTRY METHOD 10/06/2024 7:23 AM [facility] Creatinine 0.62 0.50 - 1.10 mg/dL LAB CHEMISTRY METHOD 10/06/2024 7:23 AM [facility] eGFR 87 >=60 mL/min/1. 73m2 LAB CHEMISTRY METHOD 10/06/2024 7:23 AM [facility] LAB Comment:Calculation based on the??Chronic Kidney Disease Epidemiology Collaboration (CKD-EPI) equation refit??without adjustment for race. BUN/Creatinine Ratio 14.5 LAB CHEMISTRY METHOD 10/06/2024 7:23 AM [facility] Calcium 8.4(L) 8.5 - 10.5 mg/dL LAB CHEMISTRY METHOD 10/06/2024 7:23 AM [facility] Blood Venous blood specimen / Unknown Venipuncture / Unknown 10/06/2024 5:48 AM EST 10/06/2024 6:48 AM EST us Angelo Kasper MD LAB BLOOD ORDERABLES Final Res ult [facility] [address] [place] [address], documented in this encounter Visit Diagnoses Diagnosis Encounter for other general examination documented in this encounter
--- OUTSIDE RECORDS SUMMARY | 2025-02-19 17:26 | XMS_ITS | Encounter Summary ---
Author Organization [employer] [facility] Address [address] [place] [address] Care Team Providers Care Medical Program Specialist Name Role Phone Unavailable Primary Care Provider Unavailabl e Encounter Details Date Type Department Care Team (Late st Contact Info) Description 09/30/2024 Lab Requisition [facility] - Main Lab [address] [place] [address] Angelo Kasper MD [address] [place] [address] [phone] Encounter for other general examination Social History [...] LAB HEMETOLOGY METHOD 09/30/2024 1:38 PM EST [facility] RBC 4.10 3.80 - 4.80 M/mcL LAB HEMETOLOGY METHOD 09/30/2024 1:38 PM EST [facility] Hemoglobin 12.4 11.5 - 16.0 g/dL LAB HEMETOLOGY METHOD 09/30/2024 1:38 PM EST [facility] Hematocrit 38.8 35.0 - 47.0 % LAB HEMETOLOGY METHOD 09/30/2024 1:38 PM [facility] MCV 95.1 79.0 - 98.0 FL LAB HEMETOLOGY METHOD 09/30/2024 1:38 PM [facility] MCH 30.4 27.0 - 32.0 pcg LAB HEMETOLOGY METHOD 09/30/2024 1:38 PM EST [facility] MCHC 32.0 32.0 - 37.0 g/dL LAB HEMETOLOGY METHOD 09/30/2024 1:38 PM [facility] RDW 14.1 11.0 - 15.0 % LAB HEMETOLOGY METHOD 09/30/2024 1:38 PM [facility] Platelets 279 130 - 400 K/mcL LAB HEMETOLOGY METHOD 09/30/2024 1:38 PM EST [facility] MPV 9.4 7.0 - 11.0 FL LAB HEMETOLOGY METHOD 09/30/2024 1:38 PM [facility] NRBC 0.0 <1.0 % LAB HEMETOLOGY METHOD 09/30/2024 1:38 PM [facility] NRBC Absolute 0.00 <0.10 K/mcL LAB HEMETOLOGY METHOD 09/30/2024 1:38 PM [facility] Blood Venous blood specimen / Unknown Venipuncture / Unknown 09/30/2024 7:07 AM EST 09/30/2024 1:00 PM EST us Angelo Kasper MD LAB BLOOD ORDERABLES Final Res ult [facility] [address] [place] [address], * (ABNORMAL) Basic metabolic panel (09/30/2024 7:07 AM EST) Sodium 135 133 - 145 mmol/L LAB CHEMISTRY METHOD 09/30/2024 4:17 PM [facility] Potassium 4.6 3.5 - 5.5 mmol/L LAB CHEMISTRY METHOD 09/30/2024 4:17 PM [facility] Chloride 103 96 - 110 mmol/L LAB CHEMISTRY METHOD 09/30/2024 4:17 PM [facility] CO2 25 21 - 32 mmol/L LAB CHEMISTRY METHOD 09/30/2024 4:17 PM [facility] Anion Gap 7 3 - 11 LAB CHEMISTRY METHOD 09/30/2024 4:17 PM [facility] Glucose 60(L) 70 - 100 mg/dL LAB CHEMISTRY METHOD 09/30/2024 4:17 PM [facility] BUN 20 5 - 25 mg/dL LAB CHEMISTRY METHOD 09/30/2024 4:17 PM [facility] Creatinine 0.82 0.50 - 1.10 mg/dL LAB CHEMISTRY METHOD 09/30/2024 4:17 PM [facility] eGFR 70 >=60 mL/min/1. 73m2 LAB CHEMISTRY METHOD 09/30/2024 4:17 PM [facility] Comment:Calculation based on the??Chronic Kidney Disease Epidemiology Collaboration (CKD-EPI) equation refit??without adjustment for race. BUN/Creatinine Ratio 24.4 LAB CHEMISTRY METHOD 09/30/2024 4:17 PM [facility] Calcium 9.8 8.5 - 10.5 mg/dL LAB CHEMISTRY METHOD 09/30/2024 4:17 PM [facility] Blood Venous blood specimen / Unknown Venipuncture / Unknown 09/30/2024 7:07 AM EST 09/30/2024 1:00 PM EST Angelo Kasper MD LAB BLOOD ORDERABLES Final Res ult [facility] [address] [place] [address], documented in this encounter Visit Diagnoses Diagnosis Encounter for other general examination documented in this encounter
--- OUTSIDE RECORDS SUMMARY | 2025-02-19 17:26 | XMS_ITS | Encounter Summary ---
Author Organization [employer] [facility] Address [address] [place] [address] Care Team Providers Care Vice President Commercial Bank Name Role Phone Unavailable Primary Care Provider Unavailabl e Encounter Details Date Type Department Care Team (Late st Contact Info) Description 10/11/2024 Lab Requisition [facility] Lab [address] [facility] [place] [address] Angelo Kasper MD [address] [place] [phone] Encounter for other general examination Social History [...] LAB CHEMISTRY METHOD 10/11/2024 1:13 PM EST [facility] Potassium 4.0 3.5 - 5.5 mmol/L LAB CHEMISTRY METHOD 10/11/2024 1:13 PM EST [facility] Chloride 102 96 - 110 mmol/L LAB CHEMISTRY METHOD 10/11/2024 1:13 PM EST [facility] CO2 23 21 - 32 mmol/L LAB CHEMISTRY METHOD 10/11/2024 1:13 PM EST [facility] Anion Gap 9 3 [...] Final Res ult [facility] [address] [place] [address], documented in this encounter Visit Diagnoses Diagnosis Encounter for other general examination documented in this encounter
--- OUTSIDE RECORDS SUMMARY | 2025-02-19 17:26 | XMS_ITS | Clinical Summary ---
Author Organization 299 [facility] Address [address] [place] [address] Phone Care Team Providers Care Director Of Estate Name Role Phone Unavailable Primary Care Provider [...]
--- OUTSIDE RECORDS SUMMARY | 2025-02-19 17:26 | XMS_ITS | Encounter Summary ---
Author Organization [employer] Address [address] [place] [address] Care Team Providers Care Balance Recesser Name Role Phone Unavailable Primary Care Provider Unavailabl e Encounter Details Date Type Department Care Team (Late st Contact Info) Description 10/04/2024 Lab Requisition [facility] - Main Lab [address] [facility] [place] [address] Angelo Kasper MD [address] [place] [address] [phone] Encounter for other general examination Social History [...] microscopic and culture (10/04/2024 4:00 AM EST) [facility] Specific [place] Urine 1.018 1.003 - 1.030 LAB URINALYSIS - AUTOMATED METHOD 10/04/2024 9:55 AM [facility] pH, Urine 7.0 5.0 - 8.0 pH LAB URINALYSIS - AUTOMATED METHOD 10/04/2024 9:55 AM [facility] Leukocytes, Urine Negative Negative LAB URINALYSIS - AUTOMATED METHOD 10/04/2024 9:55 AM [facility] Nitrite, Urine Negative Negative LAB URINALYSIS - AUTOMATED METHOD 10/04/2024 9:55 AM [facility] Protein, Urine Negative <=Trace mg/dL LAB URINALYSIS - AUTOMATED METHOD 10/04/2024 9:55 AM [facility] Glucose, Urine Negative Negative mg/dL LAB URINALYSIS - AUTOMATED METHOD 10/04/2024 9:55 AM [facility] Ketones, Urine Trace(A) Negative mg/dL LAB URINALYSIS - AUTOMATED METHOD 10/04/2024 9:55 AM [facility] Urobilinogen, Urine 1.0 0.2 - 1.0 mg/dL LAB URINALYSIS - AUTOMATED METHOD 10/04/2024 9:55 AM [facility] Bilirubin, Urine Negative Negative LAB URINALYSIS - AUTOMATED METHOD 10/04/2024 9:55 AM [facility] Blood, Urine Negative Negative LAB URINALYSIS - AUTOMATED METHOD 10/04/2024 9:55 AM [facility] Urine Urine specimen obtained by clean catch procedure / Unknown Non-blood Collection / Unknown 10/04/2024 4:00 AM EST 10/04/2024 9:37 AM EST us Angelo Kasper MD LAB URINE ORDERABLES Final Res ult [facility] [address] [place] [address], [place] [phone] * Navarro urine culture tube (10/04/2024 4:00 AM EST) Extra Tube Hold for add-ons. 10/04/2024 11:01 AM EST [facility] Comment:Auto resulted. Urine Urine specimen obtained by clean catch procedure / Unknown Non-blood Collection / Unknown 10/04/2024 4:00 AM EST 10/04/2024 9:37 AM EST us Agnelo Kasper MD LAB URINE ORDERABLES Final Res ult [facility] [address] [place] [address], [place] [phone] * Sodium, urine, random (10/04/2024 4:00 AM EST) Sodium, Ur 87 mmol/L LAB CHEMISTRY METHOD 10/04/2024 10:46 AM EST [facility] Urine Urine specimen obtained by clean catch procedure / Unknown Non-blood Collection / Unknown 10/04/2024 4:00 AM EST 10/04/2024 9:37 AM EST us Angelo Kasper MD LAB URINE ORDERABLES Final Res ult [facility] [address] [place] [address], [place] [phone] * Osmolality, urine (10/04/2024 4:00 AM EST) Osmolality, Urine 475 300 - 1,300 mOsm/kg LAB CHEMISTRY METHOD 10/04/2024 10:45 AM EST [facility] Urine Urine specimen obtained by clean catch procedure / Unknown Non-blood Collection / Unknown 10/04/2024 4:00 AM EST 10/04/2024 9:37 AM EST us Angelo Kasper MD LAB URINE ORDERABLES Final Res ult [facility] ([facility] [address] [place] [address], documented in this encounter Visit Diagnoses Diagnosis Encounter for other general examination documented in this encounter
== END 2025-02-19 14:41 | disposition home or self-care (01) ==
LOC: HO.LAB 14:40
PROVIDERS: Student in an Organized Health Care Education/Training Program; PCP Internal Medicine; Visit Provider Student in an Organized Health Care Education/Training Program
DX: E55.9 Vitamin D deficiency, unspecified (principal); M05.9 Rheumatoid arthritis with rheumatoid factor, unspecified; M1A.0710 Idiopathic chronic gout, right ankle and foot, without tophus (tophi); M81.0 Age-related osteoporosis without current pathological fracture
CPT/HCPCS: 36415; 80053; 82306; 84550; 85025; 85652; 86140

== ENCOUNTER 2025-02-28 13:01 | Outpatient (AMB) | payer MEDICARE, OTHER, SELFPAY ==
--- NOTE | 2025-02-28 13:20 | AM.OFFVISNUR ---
Intake Visit Reasons: osteoporosis/prolia inj Allergies alendronate sodium [From FOSAMAX] Allergy (Severe, Verified 02/13/25 14:25) ANAPHYLAXIS lisinopril [LISINOPRIL] Allergy (Severe, Verified 02/13/25 14:25) ANAPHYLAXIS, cough clarithromycin [CLARITHROMYCIN] Allergy (Intermediate, Verified 02/13/25 14:25) CONFUSION, sores on tongue, dry mouth simvastatin [SIMVASTATIN] Allergy (Mild, Verified 02/13/25 14:25) DRY THROAT, achy, confusion Office Meds Prolia 60 mg/mL subcutaneous syringe Performing Provider: Melissa Eric MD Performing Location: [facility] [place] [facility] Administered by: Adina Connor RN on 02/28/25 13:21 Dose Route Admin Location Dispensed Lot Number Expiration Date [facility] Commercial Diver 60 mg subcut left upper arm 1 mL [id number] 06/05/27 27195-479-43 AMGEN Comments: Consent form signed. Patient tolerating injection well. Patient does not report any adverse reactions to prior injections. Assessment & Plan Assessment & Plan Orders: Orders AMB Denosumab Injection Practice Supplied Today M81.0 - Age-related osteoporosis without current pathological fracture Medications: New Prolia (denosumab) 60 mg subcut ONCE 1 mL 0RF NS M81.0 - Age-related osteoporosis without current pathological fracture Coding
--- OUTSIDE RECORDS SUMMARY | 2025-02-28 13:45 | XMS_ITS | Encounter Summary ---
Author Organization [employer] [facility] Address [address] [place] [address] Care Team Providers Care Creative Arts Therapist Name Role Phone Unavailable Primary Care Provider Unavailabl e Encounter Details Date Type Department Care Team (Late st Contact Info) Description 09/29/2024 Lab Requisition [facility] - Main Lab [address] [place] [address] Angelo Kasper MD [address] [place] [phone] Encounter for other general examination Social History [...] METHOD 09/29/2024 11:08 AM EST [facility] RBC 4.10 3.80 - 4.80 M/mcL LAB HEMETOLOGY METHOD 09/29/2024 11:08 AM [facility] Hemoglobin 12.5 11.5 - 16.0 g/dL LAB HEMETOLOGY METHOD 09/29/2024 11:08 AM [facility] Hematocrit 39.9 35.0 - 47.0 % LAB HEMETOLOGY METHOD 09/29/2024 11:08 AM [facility] MCV 96.8 79.0 - 98.0 FL LAB HEMETOLOGY METHOD 09/29/2024 11:08 AM [facility] MCH 30.3 27.0 - 32.0 pcg LAB HEMETOLOGY METHOD 09/29/2024 11:08 AM [facility] MCHC 31.3(L) 32.0 - 37.0 g/dL LAB HEMETOLOGY METHOD 09/29/2024 11:08 AM [facility] RDW 14.0 11.0 - 15.0 % LAB HEMETOLOGY METHOD 09/29/2024 11:08 AM [facility] Platelets 293 130 - 400 K/mcL LAB HEMETOLOGY METHOD 09/29/2024 11:08 AM [facility] MPV 9.5 7.0 - 11.0 FL LAB HEMETOLOGY METHOD 09/29/2024 11:08 AM [facility] NRBC 0.0 <1.0 % LAB HEMETOLOGY METHOD 09/29/2024 11:08 AM [facility] NRBC Absolute 0.00 <0.10 K/mcL LAB HEMETOLOGY METHOD 09/29/2024 11:08 AM [facility] Neutrophils Relative 54.5 % LAB HEMETOLOGY METHOD 09/29/2024 11:08 AM [facility] Lymphocytes Relative 34.1 % LAB HEMETOLOGY METHOD 09/29/2024 11:08 AM [facility] Monocytes Relative 5.0 % LAB HEMETOLOGY METHOD 09/29/2024 11:08 AM [facility] Eosinophils Relative 4.3 % LAB HEMETOLOGY METHOD 09/29/2024 11:08 AM [facility] Basophils Relative 1.0 % LAB HEMETOLOGY METHOD 09/29/2024 11:08 AM [facility] Immature Granulocytes Relative 1.1 % LAB HEMETOLOGY METHOD 09/29/2024 11:08 AM [facility] Neutrophils Absolute 6.25 1.50 - 7.00 K/mcL LAB HEMETOLOGY METHOD 09/29/2024 11:08 AM [facility] Lymphocytes Absolute 3.93 1.00 - 5.00 K/mcL LAB HEMETOLOGY METHOD 09/29/2024 11:08 AM [facility] Monocytes Absolute 0.58 0.20 - 1.00 K/mcL LAB HEMETOLOGY METHOD 09/29/2024 11:08 AM [facility] Eosinophils Absolute 0.50 0.00 - 0.50 K/mcL LAB HEMETOLOGY METHOD 09/29/2024 11:08 AM [facility] Basophils Absolute 0.12 0.00 - 0.20 K/mcL LAB HEMETOLOGY METHOD 09/29/2024 11:08 AM [facility] Immature Granulocytes Absolute 0.13(H) 0.00 - 0.03 K/mcL LAB HEMETOLOGY METHOD 09/29/2024 11:08 AM [facility] Blood Venous blood specimen / Unknown Venipuncture / Unknown 09/29/2024 7:35 AM EST 09/29/2024 10:30 AM EST us Angelo Kasper MD LAB BLOOD ORDERABLES Final Res ult [facility] [address] [place] [address], [place] [phone] * Magnesium (09/29/2024 7:35 AM EST) [facility] Magnesium 2.1 1.9 - 2.6 mg/dL LAB CHEMISTRY METHOD 09/29/2024 11:09 AM EST [facility] Blood Venous blood specimen / Unknown Venipuncture / Unknown 09/29/2024 7:35 AM EST 09/29/2024 10:30 AM EST us Angelo Kasper MD LAB BLOOD ORDERABLES Final Res ult [facility] [address] [place] [address], [place] [phone] * (ABNORMAL) Comprehensive metabolic panel (09/29/2024 7:35 AM EST) [facility] Sodium 138 133 - 145 mmol/L LAB CHEMISTRY METHOD 09/29/2024 11:09 AM [facility] Potassium 4.8 3.5 - 5.5 mmol/L LAB CHEMISTRY METHOD 09/29/2024 11:09 AM [facility] Chloride 107 96 - [...] 11:09 AM [facility] Total Bilirubin 0.5 0.0 - 1.4 mg/dL LAB CHEMISTRY METHOD 09/29/2024 11:09 AM [facility] Blood Venous blood specimen / Unknown Venipuncture / Unknown 09/29/2024 7:35 AM EST 09/29/2024 10:30 AM EST us Angelo Kasper MD LAB BLOOD ORDERABLES Final Res ult [facility] [address] [place] [address], [place] [phone] documented in this encounter Visit Diagnoses Diagnosis Encounter for other general examination documented in this encounter
--- OUTSIDE RECORDS SUMMARY | 2025-02-28 13:45 | XMS_ITS | Encounter Summary ---
Author Organization [employer] [facility] Address [address] [place] [address] Care Team Providers Care Skidder Name Role Phone Unavailable Primary Care Provider Unavailabl e Encounter Details Date Type Department Care Team (Late st Contact Info) Description 10/09/2024 Lab Requisition [facility] Lab [address] [facility] [place] [address] Angelo Kasper MD [address] [place] [phone] Encounter for other general examination Social History [...] 11 LAB CHEMISTRY METHOD 10/09/2024 12:04 PM [facility] Glucose 62(L) 70 - 100 mg/dL LAB CHEMISTRY METHOD 10/09/2024 12:04 PM [facility] BUN 12 5 - 25 mg/dL LAB CHEMISTRY METHOD 10/09/2024 12:04 PM [facility] Creatinine 0.71 0.50 - 1.10 mg/dL LAB CHEMISTRY METHOD 10/09/2024 12:04 PM [facility] LAB eGFR 83 >=60 mL/min/1. 73m2 LAB CHEMISTRY METHOD 10/09/2024 12:04 PM [facility] LAB Comment:Calculation based on the??Chronic Kidney Disease Epidemiology Collaboration (CKD-EPI) equation refit??without adjustment for race. BUN/Creatinine Ratio 16.9 LAB CHEMISTRY METHOD 10/09/2024 12:04 PM [facility] Calcium 8.8 8.5 - 10.5 mg/dL LAB CHEMISTRY METHOD 10/09/2024 12:04 PM [facility] Blood Venous blood specimen / Unknown Venipuncture / Unknown 10/09/2024 7:03 AM EST 10/09/2024 10:19 AM EST us Angelo Kasper MD LAB BLOOD ORDERABLES Final Res ult [facility] [address] [place] [address], [place] [phone] documented in this encounter Visit Diagnoses Diagnosis Encounter for other general examination documented in this encounter
--- OUTSIDE RECORDS SUMMARY | 2025-02-28 13:45 | XMS_ITS | Encounter Summary ---
Author Organization [employer] Address [address] [place] [address] Care Team Providers Care Welder/Installer Name Role Phone Unavailable Primary Care Provider Unavailabl e Encounter Details Date Type Department Care Team (Late st Contact Info) Description 10/04/2024 Lab Requisition [facility] - Main Lab [address] [facility] [place] [address] Angelo Kasper MD [address] [place] [address] [phone] Encounter for other general examination Social History [...] and culture (10/04/2024 4:00 AM EST) [facility] Specific [place] Urine 1.018 1.003 - 1.030 LAB URINALYSIS [...] MD LAB URINE ORDERABLES Final Res ult [facility] [address] [place] [address], [place] [phone] * Navarro urine culture tube (10/04/2024 4:00 AM EST) Extra Tube Hold for add-ons. 10/04/2024 11:01 AM EST [facility] LAB Comment:Auto resulted. Urine Urine specimen obtained by clean catch procedure / Unknown Non-blood Collection / Unknown 10/04/2024 4:00 AM EST 10/04/2024 9:37 AM EST us Angelo Kasper MD LAB URINE ORDERABLES Final Res ult [facility] [address] [place] [address], [place] [phone] * Sodium, urine, random (10/04/2024 4:00 AM EST) Sodium, Ur 87 mmol/L LAB CHEMISTRY METHOD 10/04/2024 10:46 AM EST [facility] Urine Urine specimen obtained by clean catch procedure / Unknown Non-blood Collection / Unknown 10/04/2024 4:00 AM EST 10/04/2024 9:37 AM EST us Angelo Kasper MD LAB URINE ORDERABLES Final Res ult [facility] [address] [place] [address], [place] [phone] * Osmolality, urine (10/04/2024 4:00 AM EST) Osmolality, Urine 475 300 - 1,300 mOsm/kg LAB CHEMISTRY METHOD 10/04/2024 10:45 AM EST [facility] Urine Urine specimen obtained by clean catch procedure / Unknown Non-blood Collection / Unknown 10/04/2024 4:00 AM EST 10/04/2024 9:37 AM EST us Angelo Kasper MD LAB URINE ORDERABLES Final Res ult [facility] LAB [address] [place] [address], documented in this encounter Visit Diagnoses Diagnosis Encounter for other general examination documented in this encounter
--- OUTSIDE RECORDS SUMMARY | 2025-02-28 13:45 | XMS_ITS | Clinical Summary ---
Author Organization [address] [facility] Address [address] [place] [address] Phone Care Team Providers Care Completion Supervisor Name Role Phone Unavailable Primary Care [...]
--- OUTSIDE RECORDS SUMMARY | 2025-02-28 13:45 | XMS_ITS | Encounter Summary ---
Author Organization [employer] [facility] Address [address] [place] [address] Care Team Providers Care Buyer Renter Name Role Phone Unavailable Primary Care Provider Unavailabl e Encounter Details Date Type Department Care Team (Late st Contact Info) Description 09/30/2024 Lab Requisition [facility] - Main Lab [address] [place] [address] Angelo Kasper MD [address] [place] [address] [phone] Encounter for other general examination Social History [...] % LAB HEMETOLOGY METHOD 09/30/2024 1:38 PM [facility] MCV 95.1 79.0 - 98.0 FL LAB HEMETOLOGY METHOD 09/30/2024 1:38 PM [facility] MCH 30.4 27.0 - 32.0 pcg LAB HEMETOLOGY METHOD 09/30/2024 1:38 PM EST [facility] LAB MCHC 32.0 32.0 - 37.0 g/dL LAB HEMETOLOGY METHOD 09/30/2024 1:38 PM [facility] RDW 14.1 11.0 - 15.0 % LAB HEMETOLOGY METHOD 09/30/2024 1:38 PM [facility] Platelets 279 130 - 400 K/mcL LAB HEMETOLOGY METHOD 09/30/2024 1:38 PM EST [facility] MPV 9.4 7.0 - 11.0 FL LAB HEMETOLOGY METHOD 09/30/2024 1:38 PM [facility] NRBC 0.0 <1.0 % LAB HEMETOLOGY METHOD 09/30/2024 1:38 PM [facility] NRBC Absolute 0.00 <0.10 K/mcL LAB HEMETOLOGY METHOD 09/30/2024 1:38 PM [facility] Blood Venous blood specimen / Unknown Venipuncture / Unknown 09/30/2024 7:07 AM EST 09/30/2024 1:00 PM EST us Angelo Kasper MD LAB BLOOD ORDERABLES Final Res ult [facility] [address] [place] [address], * (ABNORMAL) Basic metabolic panel (09/30/2024 7:07 AM EST) Sodium 135 133 - 145 mmol/L LAB CHEMISTRY METHOD 09/30/2024 4:17 PM [facility] Potassium 4.6 3.5 - 5.5 mmol/L LAB CHEMISTRY METHOD 09/30/2024 4:17 PM [facility] Chloride 103 96 - 110 mmol/L LAB CHEMISTRY METHOD 09/30/2024 4:17 PM [facility] CO2 25 21 - 32 mmol/L LAB CHEMISTRY METHOD 09/30/2024 4:17 PM [facility] Anion Gap 7 3 - 11 LAB CHEMISTRY METHOD 09/30/2024 4:17 PM [facility] Glucose 60(L) 70 - 100 mg/dL LAB CHEMISTRY METHOD 09/30/2024 4:17 PM [facility] BUN 20 5 - 25 mg/dL LAB CHEMISTRY METHOD 09/30/2024 4:17 PM [facility] Creatinine 0.82 0.50 - 1.10 mg/dL LAB CHEMISTRY METHOD 09/30/2024 4:17 PM [facility] eGFR 70 >=60 mL/min/1. 73m2 LAB CHEMISTRY METHOD 09/30/2024 4:17 PM [facility] Comment:Calculation based on the??Chronic Kidney Disease Epidemiology Collaboration (CKD-EPI) equation refit??without adjustment for race. BUN/Creatinine Ratio 24.4 LAB CHEMISTRY METHOD 09/30/2024 4:17 PM [facility] Calcium 9.8 8.5 - 10.5 mg/dL LAB CHEMISTRY METHOD 09/30/2024 4:17 PM [facility] Blood Venous blood specimen / Unknown Venipuncture / Unknown 09/30/2024 7:07 AM EST 09/30/2024 1:00 PM EST Angelo Kasper MD LAB BLOOD ORDERABLES Final Res ult [facility] [address] [place] [address], documented in this encounter Visit Diagnoses Diagnosis Encounter for other general examination documented in this encounter
--- OUTSIDE RECORDS SUMMARY | 2025-02-28 13:45 | XMS_ITS | Clinical Summary ---
Author Organization [employer] [facility] Address [address] [place] [address] Care Team Providers Care Prototype Deicer Assembler Name Role Phone Unavailable Primary Care [...]
--- OUTSIDE RECORDS SUMMARY | 2025-02-28 13:45 | XMS_ITS | Encounter Summary ---
Author Organization [employer] [facility] Address [address] [place] [address] Care Team Providers Care Forging Dies Final Finisher Name Role Phone Unavailable Primary Care Provider Unavailabl e Encounter Details Date Type Department Care Team (Late st Contact Info) Description 10/05/2024 Lab Requisition [facility] - Main Lab [address] [facility] [employer] [place] [address] Angelo Kasper MD [address] [place] [phone] Encounter for other general examination Social History [...] 11:02 AM EST [facility] CO2 27 21 - 32 mmol/L LAB CHEMISTRY METHOD 10/05/2024 11:02 AM EST [facility] Anion Gap 6 3 - 11 LAB CHEMISTRY METHOD 10/05/2024 11:02 AM [facility] LAB Glucose 70 70 - 100 mg/dL LAB CHEMISTRY METHOD 10/05/2024 11:02 AM [facility] LAB BUN 11 5 - 25 mg/dL LAB CHEMISTRY METHOD 10/05/2024 11:02 AM [facility] LAB Creatinine 0.71 0.50 - 1.10 mg/dL LAB CHEMISTRY METHOD 10/05/2024 11:02 AM [facility] LAB eGFR 83 >=60 mL/min/1. 73m2 LAB CHEMISTRY METHOD 10/05/2024 11:02 AM [facility] LAB Comment:Calculation based on the??Chronic Kidney Disease Epidemiology Collaboration (CKD-EPI) equation refit??without adjustment for race. BUN/Creatinine Ratio 15.5 LAB CHEMISTRY METHOD 10/05/2024 11:02 AM [facility] LAB Calcium 8.6 8.5 - 10.5 mg/dL LAB CHEMISTRY METHOD 10/05/2024 11:02 AM [facility] LAB Blood Venous blood specimen / Unknown Venipuncture / Unknown 10/05/2024 6:03 AM EST 10/05/2024 9:38 AM EST us Angelo Kasper MD LAB BLOOD ORDERABLES Final Res ult [facility] [address] [place] [address], [place] [phone] documented in this encounter Visit Diagnoses Diagnosis Encounter for other general examination documented in this encounter
--- OUTSIDE RECORDS SUMMARY | 2025-02-28 13:45 | XMS_ITS | Encounter Summary ---
Author Organization [facility] Address [address] [place] [address] Care Team Providers Care Editor Department Name Role Phone Unavailable Primary Care Provider Unavailabl e Encounter Details Date Type Department Care Team (Late st Contact Info) Description 10/06/2024 Lab Requisition [facility] - Main Lab [address] [facility] [place] [address] Angelo Kasper MD [address] [place] [address] Encounter for other general examination Social History [...] LAB CHEMISTRY METHOD 10/06/2024 9:[address] [facility] Blood Venous blood specimen / Unknown Venipuncture / Unknown 10/06/2024 5:48 AM EST 10/06/2024 6:48 AM EST Narrative [facility] - 10/06/2024 9:33 AM EST [facility] ?? 8 AM SPEC: ??5.0-23.0 mcg/dL ?? 4 PM SPEC: ??3.0-16.0 mcg/dL ?? 8 PM SPEC: ??<5.0 mcg/dL us Angelo Kasper MD LAB BLOOD ORDERABLES Final Res ult Performing Organization Address City/[facility]/ZIP Co de Phone Number [facility] [address] [place] [address], [place] [phone] * Thyroid stimulating hormone (10/06/2024 5:48 AM EST) [facility] TSH 2.14 0.40 - 4.00 mcIU/mL LAB CHEMISTRY METHOD 10/06/2024 8:28 AM EST [facility] Blood Venous blood specimen / Unknown Venipuncture / Unknown 10/06/2024 5:48 AM EST 10/06/2024 6:48 AM EST us Angelo Kasper MD LAB BLOOD ORDERABLES Final Res ult Performing Organization Address [facility]/ZIP Co de Phone Number [facility] [address] [place] [address], [place] [phone] * (ABNORMAL) Basic metabolic panel (10/06/2024 5:48 AM EST) [facility] Sodium 130(L) 133 - 145 mmol/L LAB CHEMISTRY METHOD 10/06/2024 7:23 AM EST [facility] Potassium 4.0 3.5 - 5.5 mmol/L LAB CHEMISTRY METHOD 10/06/2024 7:23 AM EST [facility] Chloride 98 96 - 110 mmol/L LAB CHEMISTRY METHOD 10/06/2024 7:23 AM EST [facility] CO2 26 21 - 32 mmol/L LAB CHEMISTRY METHOD 10/06/2024 7:23 AM EST [facility] Anion Gap 6 3 - 11 LAB CHEMISTRY METHOD 10/06/2024 7:23 AM [facility] Glucose 76 70 - 100 mg/dL LAB CHEMISTRY METHOD 10/06/2024 7:23 AM [facility] BUN 9 5 - 25 mg/dL LAB CHEMISTRY METHOD 10/06/2024 7:23 AM [facility] Creatinine 0.62 0.50 - 1.10 mg/dL LAB CHEMISTRY METHOD 10/06/2024 7:23 AM [facility] eGFR 87 >=60 mL/min/1. 73m2 LAB CHEMISTRY METHOD 10/06/2024 7:23 AM [facility] Comment:Calculation based on the??Chronic Kidney Disease Epidemiology Collaboration (CKD-EPI) equation refit??without adjustment for race. BUN/Creatinine Ratio 14.5 LAB CHEMISTRY METHOD 10/06/2024 7:23 AM [facility] Calcium 8.4(L) 8.5 - 10.5 mg/dL LAB CHEMISTRY METHOD 10/06/2024 7:23 AM [facility] Blood Venous blood specimen / Unknown Venipuncture / Unknown 10/06/2024 5:48 AM EST 10/06/2024 6:48 AM EST us Angelo Kasper MD LAB BLOOD ORDERABLES Final Res ult [facility] [address] [place] [address], documented in this encounter Visit Diagnoses Diagnosis Encounter for other general examination documented in this encounter
--- OUTSIDE RECORDS SUMMARY | 2025-02-28 13:45 | XMS_ITS | Encounter Summary ---
Author Organization [employer] [facility] Address [address] [place] [address] Care Team Providers Care Document Clerk Name Role Phone Unavailable Primary Care Provider Unavailabl e Encounter Details Date Type Department Care Team (Late st Contact Info) Description 10/03/2024 Lab Requisition [facility] - Main Lab [address] [place] [address] Angelo Kasper MD [address] [place] [phone] Encounter for other general examination Social History [...] AM EST) WBC 4.2(L) 4.8 - 10.8 K/[facility] LAB HEMETOLOGY METHOD 10/03/2024 11:02 AM EST [facility] RBC 4.00 3.80 - 4.80 M/[facility] LAB HEMETOLOGY METHOD 10/03/2024 11:02 AM [facility] LAB Hemoglobin 12.0 11.5 - 16.0 g/dL LAB HEMETOLOGY METHOD 10/03/2024 11:02 AM [facility] LAB Hematocrit 37.5 35.0 - 47.0 % LAB HEMETOLOGY METHOD 10/03/2024 11:02 AM [facility] LAB MCV 94.5 79.0 - 98.0 FL LAB HEMETOLOGY METHOD 10/03/2024 11:02 AM [facility] LAB MCH 30.2 27.0 - 32.0 pcg LAB HEMETOLOGY METHOD 10/03/2024 11:02 AM [facility] LAB MCHC 32.0 32.0 - 37.0 g/dL LAB HEMETOLOGY METHOD 10/03/2024 11:02 AM [facility] LAB RDW 13.8 11.0 - 15.0 % LAB HEMETOLOGY METHOD 10/03/2024 11:02 AM [facility] LAB Platelets 224 130 - 400 K/mcL LAB HEMETOLOGY METHOD 10/03/2024 11:02 AM [facility] LAB MPV 9.6 7.0 - 11.0 FL LAB HEMETOLOGY METHOD 10/03/2024 11:02 AM [facility] LAB NRBC 0.0 <1.0 % LAB HEMETOLOGY METHOD 10/03/2024 11:02 AM [facility] LAB NRBC Absolute 0.00 <0.10 K/mcL LAB HEMETOLOGY METHOD 10/03/2024 11:02 AM [facility] LAB Neutrophils Relative 57.4 % LAB HEMETOLOGY METHOD 10/03/2024 11:02 AM [facility] LAB Lymphocytes Relative 22.8 % LAB HEMETOLOGY METHOD 10/03/2024 11:02 AM [facility] LAB Monocytes Relative 13.5 % LAB HEMETOLOGY METHOD 10/03/2024 11:02 AM [facility] LAB Eosinophils Relative 3.1 % LAB HEMETOLOGY METHOD 10/03/2024 11:02 AM [facility] LAB Basophils Relative 1.0 % LAB HEMETOLOGY METHOD 10/03/2024 11:02 AM [facility] LAB Immature Granulocytes Relative 2.2 % LAB HEMETOLOGY METHOD 10/03/2024 11:02 AM [facility] LAB Neutrophils Absolute 2.39 1.50 - 7.00 K/mcL LAB HEMETOLOGY METHOD 10/03/2024 11:02 AM [facility] LAB Lymphocytes Absolute 0.95(L) 1.00 - 5.00 K/mcL LAB HEMETOLOGY METHOD 10/03/2024 11:02 AM [facility] LAB Monocytes Absolute 0.56 0.20 - 1.00 K/mcL LAB HEMETOLOGY METHOD 10/03/2024 11:02 AM [facility] LAB Eosinophils Absolute 0.13 0.00 - 0.50 K/mcL LAB HEMETOLOGY METHOD 10/03/2024 11:02 AM [facility] LAB Basophils Absolute 0.04 0.00 - 0.20 K/mcL LAB HEMETOLOGY METHOD 10/03/2024 11:02 AM [facility] LAB Immature Granulocytes Absolute 0.09(H) 0.00 - 0.03 K/mcL LAB HEMETOLOGY METHOD 10/03/2024 11:02 AM [facility] LAB Blood Venous blood specimen / Unknown Venipuncture / Unknown 10/03/2024 6:25 AM EST 10/03/2024 9:48 AM EST us Angelo Kasper MD LAB BLOOD ORDERABLES Final Res ult [facility] LAB [address] [place] [address], * (ABNORMAL) Basic metabolic panel (10/03/2024 6:25 AM EST) Sodium 128(L) 133 - 145 mmol/L LAB CHEMISTRY METHOD 10/03/2024 11:21 AM [facility] LAB Potassium 4.4 3.5 - 5.5 mmol/L LAB CHEMISTRY METHOD 10/03/2024 11:21 AM [facility] LAB Chloride 94(L) 96 - 110 mmol/L LAB CHEMISTRY METHOD 10/03/2024 11:21 AM [facility] LAB CO2 28 21 - 32 mmol/L LAB CHEMISTRY METHOD 10/03/2024 11:21 AM [facility] LAB Anion Gap 6 3 - 11 LAB CHEMISTRY METHOD 10/03/2024 11:21 AM [facility] LAB Glucose 66(L) 70 - 100 mg/dL LAB CHEMISTRY METHOD 10/03/2024 11:21 AM [facility] LAB BUN 13 5 - 25 mg/dL LAB CHEMISTRY METHOD 10/03/2024 11:21 AM [facility] LAB Creatinine 0.67 0.50 - 1.10 mg/dL LAB CHEMISTRY METHOD 10/03/2024 11:21 AM [facility] LAB eGFR 85 >=60 mL/min/1. 73m2 LAB CHEMISTRY METHOD 10/03/2024 11:21 AM [facility] LAB Comment:Calculation based on the??Chronic Kidney Disease Epidemiology Collaboration (CKD-EPI) equation refit??without adjustment for race. BUN/Creatinine Ratio 19.4 LAB CHEMISTRY METHOD 10/03/2024 11:21 AM [facility] LAB Calcium 8.9 8.5 - 10.5 mg/dL LAB CHEMISTRY METHOD 10/03/2024 11:21 AM [facility] LAB Blood Venous blood specimen / Unknown Venipuncture / Unknown 10/03/2024 6:25 AM EST 10/03/2024 9:48 AM EST us Angelo Kasper MD LAB BLOOD ORDERABLES Final Res ult [facility] LAB [address] [place] [address], documented in this encounter Visit Diagnoses Diagnosis Encounter for other general examination documented in this encounter
--- OUTSIDE RECORDS SUMMARY | 2025-02-28 13:45 | XMS_ITS | Encounter Summary ---
Author Organization [employer] [facility] Address [address] [place] [address] Care Team Providers Care Iv Therapy Nurse Name Role Phone Unavailable Primary Care Provider Unavailabl e Encounter Details Date Type Department Care Team (Late st Contact Info) Description 10/11/2024 Lab Requisition [facility] Lab [address] [facility] [place] [address] Angelo Kasper MD [address] [place] [phone] Encounter for other general examination Social History [...] [facility] LAB Chloride 102 96 - 110 mmol/L LAB CHEMISTRY METHOD 10/11/2024 1:13 PM EST [facility] LAB CO2 23 21 - 32 mmol/L LAB CHEMISTRY METHOD 10/11/2024 1:13 PM EST [facility] LAB Anion Gap 9 3 - 11 LAB CHEMISTRY METHOD 10/11/2024 1:13 PM [facility] LAB Glucose 80 70 - 100 mg/dL LAB CHEMISTRY METHOD 10/11/2024 1:13 PM [facility] LAB BUN 25 5 - 25 mg/dL LAB CHEMISTRY METHOD 10/11/2024 1:13 PM [facility] LAB Creatinine 0.99 0.50 - 1.10 mg/dL LAB CHEMISTRY METHOD 10/11/2024 1:13 PM [facility] LAB eGFR 56(L) >=60 mL/min/1. 73m2 LAB CHEMISTRY METHOD 10/11/2024 1:13 PM [facility] LAB Comment:Calculation based on the??Chronic Kidney Disease Epidemiology Collaboration (CKD-EPI) equation refit??without adjustment for race. BUN/Creatinine Ratio 25.3 LAB CHEMISTRY METHOD 10/11/2024 1:13 PM [facility] LAB Calcium 8.7 8.5 - 10.5 mg/dL LAB CHEMISTRY METHOD 10/11/2024 1:13 PM [facility] LAB Blood Venous blood specimen / Unknown Venipuncture / Unknown 10/11/2024 7:25 AM EST 10/11/2024 11:51 AM EST us Angelo Kasper MD LAB BLOOD ORDERABLES Final Res ult [facility] LAB [address] [place] [address], documented in this encounter Visit Diagnoses Diagnosis Encounter for other general examination documented in this encounter
--- OUTSIDE RECORDS SUMMARY | 2025-02-28 13:45 | XMS_ITS | Encounter Summary ---
Author Organization [facility] Address [address] [place] [address] Care Team Providers Care Instruction Dean Name Role Phone Unavailable Primary Care Provider Unavailabl e Encounter Details Date Type Department Care Team (Late st Contact Info) Description 10/04/2024 Lab Requisition [facility] - Main Lab [address] [place] [address] Angelo Kasper MD [address] [place] [address] Encounter for other general examination Social History [...] [facility] LAB [address] [place] [address], [place] [phone] documented in this encounter Visit Diagnoses Diagnosis Encounter for other general examination documented in this encounter
--- OUTSIDE RECORDS SUMMARY | 2025-02-28 13:46 | XMS_ITS | Encounter Summary ---
Author Organization [employer] [facility] Address [address] [place] [address] Care Team Providers Care Car Sealer Name Role Phone Unavailable Primary Care Provider Unavailabl e Encounter Details Date Type Department Care Team (Late st Contact Info) Description 10/07/2024 Lab Requisition [facility] Lab [address] [facility] [email or web address] [address] Angelo Kasper MD [address] [place] [phone] Encounter for other general examination Social History [...] mg/dL LAB CHEMISTRY METHOD 10/07/2024 2:59 PM [facility] LAB BUN 9 5 - 25 mg/dL LAB CHEMISTRY METHOD 10/07/2024 2:59 PM [facility] LAB Creatinine 0.55 0.50 - 1.10 mg/dL LAB CHEMISTRY METHOD 10/07/2024 2:59 PM [facility] LAB eGFR 89 >=60 mL/min/1. 73m2 LAB CHEMISTRY METHOD 10/07/2024 2:59 PM [facility] LAB Comment:Calculation based on the??Chronic Kidney Disease Epidemiology Collaboration (CKD-EPI) equation refit??without adjustment for race. BUN/Creatinine Ratio 16.4 LAB CHEMISTRY METHOD 10/07/2024 2:59 PM [facility] LAB Calcium 8.3(L) 8.5 - 10.5 mg/dL LAB CHEMISTRY METHOD 10/07/2024 2:59 PM [facility] LAB Blood Venous blood specimen / Unknown 10/07/2024 7:28 AM EST 10/07/2024 12:05 PM EST us Angelo Kasper MD LAB BLOOD ORDERABLES Final Res ult [facility] LAB [address] [place] [address], documented in this encounter Visit Diagnoses Diagnosis Encounter for other general examination documented in this encounter
== END 2025-02-28 13:16 | disposition home or self-care (01) ==
LOC: HO.RHE 13:02
PROVIDERS: PCP Internal Medicine; Visit Provider Student in an Organized Health Care Education/Training Program
DX: M81.0 Age-related osteoporosis without current pathological fracture (principal)

== ENCOUNTER → 2025-02-28 13:01 | Outpatient (BNVA) | payer MEDICARE, OTHER, SELFPAY | PROVIDERS: PCP Internal Medicine; Visit Provider Student in an Organized Health Care Education/Training Program | DX: M81.0 Age-related osteoporosis without current pathological fracture (principal) | CPT/HCPCS: 96372; J0897 ==

== ENCOUNTER 2025-03-07 06:12 | Day surgery (SDC) | payer MEDICARE, OTHER, SELFPAY ==
--- OUTSIDE RECORDS SUMMARY | 2025-02-26 17:07 | XMS_ITS | Clinical Summary ---
Author Organization 299 [facility] Address [address] [place] [address] Phone Care Team Providers Care Deburring Technician Name Role Phone Unavailable Primary Care [...]
--- OUTSIDE RECORDS SUMMARY | 2025-02-26 17:07 | XMS_ITS | Encounter Summary ---
Author Organization [facility] Address [address] [place] [address] Care Team Providers Care Transportation Aid Name Role Phone Unavailable Primary Care Provider Unavailabl e Encounter Details Date Type Department Care Team (Late st Contact Info) Description 10/04/2024 Lab Requisition [facility] - Main Lab [address] [place] [address] Angelo Kasper MD [address] [place] [phone] Encounter for other general examination Social History [...] LAB CHEMISTRY METHOD 10/04/2024 10:45 AM EST [facility] Blood Venous blood specimen / Unknown Venipuncture / Unknown 10/04/2024 5:56 AM EST 10/04/2024 9:06 AM EST Angelo Kasper MD LAB BLOOD ORDERABLES Final Res ult [facility] [address] [place] [address], [place] [phone] documented in this encounter Visit Diagnoses Diagnosis Encounter for other general examination documented in this encounter
--- OUTSIDE RECORDS SUMMARY | 2025-02-26 17:07 | XMS_ITS | Encounter Summary ---
Author Organization [facility] Address [address] [place] [address] Care Team Providers Care Top Collar Baster Name Role Phone Unavailable Primary Care Provider Unavailabl e Encounter Details Date Type Department Care Team (Late st Contact Info) Description 09/30/2024 Lab Requisition [facility] - Main Lab [address] [place] [address] Angelo Kasper MD [address] [place] [address] [phone] Encounter for other general examination Social History [...] LAB HEMETOLOGY METHOD 09/30/2024 1:38 PM EST [facility] RBC 4.10 3.80 - 4.80 M/mcL LAB HEMETOLOGY METHOD 09/30/2024 1:38 PM EST [facility] Hemoglobin 12.4 11.5 - 16.0 g/dL LAB HEMETOLOGY METHOD 09/30/2024 1:38 PM EST [facility] Hematocrit 38.8 35.0 - 47.0 % LAB HEMETOLOGY METHOD 09/30/2024 1:[address] [facility] MCV 95.1 79.0 - 98.0 FL LAB HEMETOLOGY METHOD 09/30/2024 1:[address] [facility] MCH 30.4 27.0 - 32.0 pcg LAB HEMETOLOGY METHOD 09/30/2024 1:38 PM EST [facility] MCHC 32.0 32.0 - 37.0 g/dL LAB HEMETOLOGY METHOD 09/30/2024 1:[address] [facility] RDW 14.1 11.0 - 15.0 % LAB HEMETOLOGY METHOD 09/30/2024 1:[address] [facility] Platelets 279 130 - 400 K/mcL LAB HEMETOLOGY METHOD 09/30/2024 1:38 PM EST [facility] MPV 9.4 7.0 - 11.0 FL LAB HEMETOLOGY METHOD 09/30/2024 1:[address] [facility] NRBC 0.0 <1.0 % LAB HEMETOLOGY METHOD 09/30/2024 1:[address] [facility] NRBC Absolute 0.00 <0.10 K/mcL LAB HEMETOLOGY METHOD 09/30/2024 1:[address] [facility] Blood Venous blood specimen / Unknown Venipuncture / Unknown 09/30/2024 7:07 AM EST 09/30/2024 1:00 PM EST us Angelo Kasper MD LAB BLOOD ORDERABLES Final Res ult [facility] [address] [place] [address], * (ABNORMAL) Basic metabolic panel (09/30/2024 7:07 AM EST) Sodium 135 133 - 145 mmol/L LAB CHEMISTRY METHOD 09/30/2024 4:[address] [facility] Potassium 4.6 3.5 - 5.5 mmol/L LAB CHEMISTRY METHOD 09/30/2024 4:[address] [facility] Chloride 103 96 - 110 mmol/L LAB CHEMISTRY METHOD 09/30/2024 4:[address] [facility] CO2 25 21 - 32 mmol/L LAB CHEMISTRY METHOD 09/30/2024 4:[address] [facility] Anion Gap 7 3 - 11 LAB CHEMISTRY METHOD 09/30/2024 4:[address] [facility] Glucose 60(L) 70 - 100 mg/dL LAB CHEMISTRY METHOD 09/30/2024 4:[address] [facility] BUN 20 5 - 25 mg/dL LAB CHEMISTRY METHOD 09/30/2024 4:[address] [facility] Creatinine 0.82 0.50 - 1.10 mg/dL LAB CHEMISTRY METHOD 09/30/2024 4:[address] [facility] eGFR 70 >=60 mL/min/1. 73m2 LAB CHEMISTRY METHOD 09/30/2024 4:[address] [facility] Comment:Calculation based on the??Chronic Kidney Disease Epidemiology Collaboration (CKD-EPI) equation refit??without adjustment for race. BUN/Creatinine Ratio 24.4 LAB CHEMISTRY METHOD 09/30/2024 4:[address] [facility] Calcium 9.8 8.5 - 10.5 mg/dL LAB CHEMISTRY METHOD 09/30/2024 4:[address] [facility] Blood Venous blood specimen / Unknown Venipuncture / Unknown 09/30/2024 7:07 AM EST 09/30/2024 1:00 PM EST Angelo Kasper MD LAB BLOOD ORDERABLES Final Res ult [facility] [address] [place] [address], documented in this encounter Visit Diagnoses Diagnosis Encounter for other general examination documented in this encounter
--- OUTSIDE RECORDS SUMMARY | 2025-02-26 17:07 | XMS_ITS | Encounter Summary ---
Author Organization [employer] [facility] Address [address] [place] [address] Care Team Providers Care Fermentologist Name Role Phone Unavailable Primary Care Provider Unavailabl e Encounter Details Date Type Department Care Team (Late st Contact Info) Description 10/07/2024 Lab Requisition [facility] Lab [address] [facility] [place] [address] Angelo Kasper MD [address] [place] [phone] Encounter for other general examination Social History [...] LAB CHEMISTRY METHOD 10/07/2024 2:[address] [facility] Potassium 4.2 3.5 - 5.5 mmol/L LAB CHEMISTRY METHOD 10/07/2024 2:[address] [facility] Chloride 98 96 - 110 mmol/L LAB CHEMISTRY METHOD 10/07/2024 2:[address] [facility] CO2 22 21 - 32 mmol/L LAB CHEMISTRY METHOD 10/07/2024 2:[address] [facility] Anion Gap 10 3 - 11 LAB CHEMISTRY METHOD 10/07/2024 2:[address] [facility] Glucose 63(L) 70 - 100 mg/dL LAB CHEMISTRY METHOD 10/07/2024 2:59 PM [facility] BUN 9 5 - 25 mg/dL LAB CHEMISTRY METHOD 10/07/2024 2:59 PM [facility] Creatinine 0.55 0.50 - 1.10 mg/dL LAB CHEMISTRY METHOD 10/07/2024 2:59 PM [facility] eGFR 89 >=60 mL/min/1. 73m2 LAB CHEMISTRY METHOD 10/07/2024 2:59 PM [facility] Comment:Calculation based on the??Chronic Kidney Disease Epidemiology Collaboration (CKD-EPI) equation refit??without adjustment for race. BUN/Creatinine Ratio 16.4 LAB CHEMISTRY METHOD 10/07/2024 2:59 PM [facility] Calcium 8.3(L) 8.5 - 10.5 mg/dL LAB CHEMISTRY METHOD 10/07/2024 2:59 PM [facility] Blood Venous blood specimen / Unknown 10/07/2024 7:28 AM EST 10/07/2024 12:05 PM EST us Angelo Kasper MD LAB BLOOD ORDERABLES Final Res ult [facility] [address] [place] [address], documented in this encounter Visit Diagnoses Diagnosis Encounter for other general examination documented in this encounter
--- OUTSIDE RECORDS SUMMARY | 2025-02-26 17:07 | XMS_ITS | Encounter Summary ---
Author Organization [employer] [facility] Address [address] [place] [address] Care Team Providers Care Pigment Furnace Tender Name Role Phone Unavailable Primary Care Provider Unavailabl e Encounter Details Date Type Department Care Team (Late st Contact Info) Description 10/09/2024 Lab Requisition [facility] Lab 299 [facility] [place] [address] Angelo Kasper MD [address] [place] [phone] Encounter for other general examination Social History [...] LAB CHEMISTRY METHOD 10/09/2024 12:04 PM EST [facility] Potassium 4.1 3.5 - 5.5 mmol/L LAB CHEMISTRY METHOD 10/09/2024 12:04 PM EST [facility] Chloride 100 96 - 110 mmol/L LAB CHEMISTRY METHOD 10/09/2024 12:04 PM EST [facility] CO2 26 21 - 32 mmol/L LAB CHEMISTRY METHOD 10/09/2024 12:04 PM EST [facility] Anion Gap 6 3 - 11 LAB CHEMISTRY METHOD 10/09/2024 12:04 PM [facility] Glucose 62(L) 70 - 100 mg/dL LAB CHEMISTRY METHOD 10/09/2024 12:04 PM [facility] BUN 12 5 - 25 mg/dL LAB CHEMISTRY METHOD 10/09/2024 12:04 PM [facility] Creatinine 0.71 0.50 - 1.10 mg/dL LAB CHEMISTRY METHOD 10/09/2024 12:04 PM [facility] eGFR 83 >=60 mL/min/1. 73m2 LAB CHEMISTRY METHOD 10/09/2024 12:04 PM [facility] Comment:Calculation based on the??Chronic Kidney Disease Epidemiology Collaboration (CKD-EPI) equation refit??without adjustment for race. BUN/Creatinine Ratio 16.9 LAB CHEMISTRY METHOD 10/09/2024 12:04 PM [facility] Calcium 8.8 8.5 - 10.5 mg/dL LAB CHEMISTRY METHOD 10/09/2024 12:04 PM [facility] Blood Venous blood specimen / Unknown Venipuncture / Unknown 10/09/2024 7:03 AM EST 10/09/2024 10:19 AM EST us Angelo Kasper MD LAB BLOOD ORDERABLES Final Res ult [facility] [address] [place] [address], [place] [phone] documented in this encounter Visit Diagnoses Diagnosis Encounter for other general examination documented in this encounter
--- OUTSIDE RECORDS SUMMARY | 2025-02-26 17:07 | XMS_ITS | Encounter Summary ---
Author Organization [facility] Address [address] [place] [address] Care Team Providers Care Cyber Security Specialist Name Role Phone Unavailable Primary Care Provider Unavailabl e Encounter Details Date Type Department Care Team (Late st Contact Info) Description 10/11/[address] [facility] Lab [address] [facility] [place] [address] Angelo Kasper MD [address] [place] [address] Encounter for other general examination Social History [...] LAB CHEMISTRY METHOD 10/11/2024 1:13 PM EST [facility] Potassium 4.0 3.5 - 5.5 mmol/L LAB CHEMISTRY METHOD 10/11/2024 1:13 PM EST [facility] Chloride 102 96 - 110 mmol/L LAB CHEMISTRY METHOD 10/11/2024 1:13 PM EST [facility] CO2 23 21 - 32 mmol/L LAB CHEMISTRY METHOD 10/11/2024 1:13 PM EST [facility] Anion Gap 9 3 - 11 LAB CHEMISTRY METHOD 10/11/2024 1:13 PM [facility] Glucose 80 70 - 100 mg/dL LAB CHEMISTRY METHOD 10/11/2024 1:13 PM [facility] BUN 25 5 - 25 mg/dL LAB CHEMISTRY METHOD 10/11/2024 1:13 PM [facility] Creatinine 0.99 0.50 - 1.10 mg/dL LAB CHEMISTRY METHOD 10/11/2024 1:13 PM [facility] eGFR 56(L) >=60 mL/min/1. 73m2 LAB CHEMISTRY METHOD 10/11/2024 1:13 PM [facility] Comment:Calculation based on the??Chronic Kidney Disease Epidemiology Collaboration (CKD-EPI) equation refit??without adjustment for race. BUN/Creatinine Ratio 25.3 LAB CHEMISTRY METHOD 10/11/2024 1:13 PM [facility] Calcium 8.7 8.5 - 10.5 mg/dL LAB CHEMISTRY METHOD 10/11/2024 1:13 PM [facility] Blood Venous blood specimen / Unknown Venipuncture / Unknown 10/11/2024 7:25 AM EST 10/11/2024 11:51 AM EST us Angelo Kasper MD LAB BLOOD ORDERABLES Final Res ult [facility] [address] [place] [address], documented in this encounter Visit Diagnoses Diagnosis Encounter for other general examination documented in this encounter
--- OUTSIDE RECORDS SUMMARY | 2025-02-26 17:07 | XMS_ITS | Encounter Summary ---
Author Organization [employer] [facility] Address [address] [place] [address] Care Team Providers Care Software Applications Architect Name Role Phone Unavailable Primary Care Provider Unavailabl e Encounter Details Date Type Department Care Team (Late st Contact Info) Description 10/05/2024 Lab Requisition [facility] - Main Lab 299 [facility] [place] [address] Angelo Kasper MD [address] [place] [address] Encounter for other general examination Social History [...] LAB CHEMISTRY METHOD 10/05/2024 11:02 AM EST [facility] Potassium 4.1 3.5 - 5.5 mmol/L LAB CHEMISTRY METHOD 10/05/2024 11:02 AM EST [facility] Chloride 93(L) 96 - 110 mmol/L LAB CHEMISTRY METHOD 10/05/2024 11:02 AM EST [facility] CO2 27 21 - 32 mmol/L LAB CHEMISTRY METHOD 10/05/2024 11:02 AM EST [facility] Anion Gap 6 3 - 11 LAB CHEMISTRY METHOD 10/05/2024 11:02 AM [facility] Glucose 70 70 - 100 mg/dL LAB CHEMISTRY METHOD 10/05/2024 11:02 AM [facility] BUN 11 5 - 25 mg/dL LAB CHEMISTRY METHOD 10/05/2024 11:02 AM [facility] Creatinine 0.71 0.50 - 1.10 mg/dL LAB CHEMISTRY METHOD 10/05/2024 11:02 AM [facility] eGFR 83 >=60 mL/min/1. 73m2 LAB CHEMISTRY METHOD 10/05/2024 11:02 AM [facility] Comment:Calculation based on the??Chronic Kidney Disease Epidemiology Collaboration (CKD-EPI) equation refit??without adjustment for race. BUN/Creatinine Ratio 15.5 LAB CHEMISTRY METHOD 10/05/2024 11:02 AM [facility] Calcium 8.6 8.5 - 10.5 mg/dL LAB CHEMISTRY METHOD 10/05/2024 11:02 AM [facility] Blood Venous blood specimen / Unknown Venipuncture / Unknown 10/05/2024 6:03 AM EST 10/05/2024 9:38 AM EST us Angelo Kasper MD LAB BLOOD ORDERABLES Final Res ult [facility] [address] [place] [address], [place] [phone] documented in this encounter Visit Diagnoses Diagnosis Encounter for other general examination documented in this encounter
--- OUTSIDE RECORDS SUMMARY | 2025-02-26 17:07 | XMS_ITS | Encounter Summary ---
Author Organization [facility] [facility] Address [address] [place] [address] Care Team Providers Care Svp Programmatic Tv Name Role Phone Unavailable Primary Care Provider Unavailabl e Encounter Details Date Type Department Care Team (Late st Contact Info) Description 10/03/2024 Lab Requisition [facility] - Main Lab [address] [place] [address] Angelo Kasper MD [address] [place] [phone] Encounter for other general examination Social History [...] LAB HEMETOLOGY METHOD 10/03/2024 11:02 AM EST [facility] RBC 4.00 3.80 - 4.80 M/[facility] LAB HEMETOLOGY METHOD 10/03/2024 11:02 AM [place] [...] Res ult [facility] [address] [place] [address], * (ABNORMAL) Basic metabolic panel (10/03/2024 6:25 [...] MD LAB BLOOD ORDERABLES Final Res ult [facility] [address] [place] [address], documented in this encounter Visit Diagnoses Diagnosis Encounter for other general examination documented in this encounter
--- OUTSIDE RECORDS SUMMARY | 2025-02-26 17:07 | XMS_ITS | Encounter Summary ---
Author Organization [facility] Address [address] [place] [address] Care Team Providers Care Community Pharmacist Name Role Phone Unavailable Primary Care Provider Unavailabl e Encounter Details Date Type Department Care Team (Late st Contact Info) Description 10/06/2024 Lab Requisition [facility] - Main Lab 299 [facility] [place] [address] Angelo Kasper MD [address] [place] [address] Encounter for other general examination Social History [...] LAB CHEMISTRY METHOD 10/06/2024 9:33 AM EST [facility] Blood Venous blood specimen / Unknown Venipuncture / Unknown 10/06/2024 5:48 AM EST 10/06/2024 6:48 AM EST Narrative [facility] - 10/06/2024 9:33 AM EST [facility] ?? 8 AM SPEC: ??5.0-23.0 mcg/dL ?? 4 PM SPEC: ??3.0-16.0 mcg/dL ?? 8 PM SPEC: ??<5.0 mcg/dL us Angelo Kasper MD LAB BLOOD ORDERABLES Final Res ult Performing Organization Address City/[facility]/ZIP Co de Phone Number [facility] [address] [place] [address], [place] [phone] * Thyroid stimulating hormone (10/06/2024 5:48 AM EST) [facility] TSH 2.14 0.40 - 4.00 mcIU/mL LAB CHEMISTRY METHOD 10/06/2024 8:28 AM EST [facility] Blood Venous blood specimen / Unknown Venipuncture / Unknown 10/06/2024 5:48 AM EST 10/06/2024 6:48 AM EST us Angelo Kasper MD LAB BLOOD ORDERABLES Final Res ult Performing Organization Address [facility]/ZIP Co de Phone Number [facility] [address] [place] [address], [place] [phone] * (ABNORMAL) Basic metabolic panel (10/06/2024 5:48 AM EST) [facility] Sodium 130(L) 133 - 145 mmol/L LAB CHEMISTRY METHOD 10/06/2024 7:23 AM EST [facility] Potassium 4.0 3.5 - 5.5 mmol/L LAB CHEMISTRY METHOD 10/06/2024 7:23 AM EST [facility] Chloride 98 96 - 110 mmol/L LAB CHEMISTRY METHOD 10/06/2024 7:23 AM EST [facility] CO2 26 21 - 32 mmol/L LAB CHEMISTRY METHOD 10/06/2024 7:23 AM EST [facility] Anion Gap 6 [...] Res ult [facility] [address] [place] [address], documented in this encounter Visit Diagnoses Diagnosis Encounter for other general examination documented in this encounter
--- OUTSIDE RECORDS SUMMARY | 2025-02-26 17:07 | XMS_ITS | Encounter Summary ---
Author Organization [employer] Address [address] [place] [address] Care Team Providers Care Spindle Plumber Name Role Phone Unavailable Primary Care Provider Unavailabl e Encounter Details Date Type Department Care Team (Late st Contact Info) Description 10/04/2024 Lab Requisition [facility] - Main Lab 299 [facility] [place] [address] Angelo Kasper MD [address] [place] [address] [phone] Encounter for other general examination Social History [...] microscopic and culture (10/04/2024 4:00 AM EST) [facility] [place] Urine 1.018 1.003 - 1.030 LAB URINALYSIS - AUTOMATED METHOD 10/04/2024 9:55 AM [facility] LAB pH, Urine 7.0 5.0 - 8.0 pH LAB URINALYSIS - AUTOMATED METHOD 10/04/2024 9:55 AM [facility] Leukocytes, Urine Negative Negative LAB URINALYSIS - AUTOMATED METHOD 10/04/2024 9:55 AM [facility] Nitrite, Urine Negative Negative LAB URINALYSIS - AUTOMATED METHOD 10/04/2024 9:55 AM [facility] Protein, Urine Negative <=Trace mg/dL LAB URINALYSIS - AUTOMATED METHOD 10/04/2024 9:55 AM [facility] Glucose, Urine Negative Negative mg/dL LAB URINALYSIS - AUTOMATED METHOD 10/04/2024 9:55 AM [facility] Ketones, Urine Trace(A) Negative mg/dL LAB URINALYSIS - AUTOMATED METHOD 10/04/2024 9:55 AM [facility] Urobilinogen, Urine 1.0 0.2 - 1.0 mg/dL LAB URINALYSIS - AUTOMATED METHOD 10/04/2024 9:55 AM [facility] Bilirubin, Urine Negative Negative LAB URINALYSIS - AUTOMATED METHOD 10/04/2024 9:55 AM [facility] Blood, Urine Negative Negative LAB URINALYSIS - AUTOMATED METHOD 10/04/2024 9:55 AM [facility] Urine Urine specimen obtained by clean catch procedure / Unknown Non-blood Collection / Unknown 10/04/2024 4:00 AM EST 10/04/2024 9:37 AM EST us Angelo Kasper MD LAB URINE ORDERABLES Final Res ult [facility] [address] [place] [address], [place] [phone] * Navarro urine culture tube (10/04/2024 4:00 AM EST) Extra Tube Hold for add-ons. 10/04/2024 11:01 AM EST [facility] LAB Comment:Auto resulted. Urine Urine specimen obtained by clean catch procedure / Unknown Non-blood Collection / Unknown 10/04/2024 4:00 AM EST 10/04/2024 9:37 AM EST us Angelo Kasper MD LAB URINE ORDERABLES Final Res ult [facility] [address] [place] [address], [place] [phone] * Sodium, urine, random (10/04/2024 4:00 AM EST) Sodium, Ur 87 mmol/L LAB CHEMISTRY METHOD 10/04/2024 10:46 AM EST [facility] Urine Urine specimen obtained by clean catch procedure / Unknown Non-blood Collection / Unknown 10/04/2024 4:00 AM EST 10/04/2024 9:37 AM EST us Angelo Kasper MD LAB URINE ORDERABLES Final Res ult [facility] [address] [place] [address], [place] [phone] * Osmolality, urine (10/04/2024 4:00 AM EST) Osmolality, Urine 475 300 - 1,300 mOsm/kg LAB CHEMISTRY METHOD 10/04/2024 10:45 AM EST [facility] Urine Urine specimen obtained by clean catch procedure / Unknown Non-blood Collection / Unknown 10/04/2024 4:00 AM EST 10/04/2024 9:37 AM EST us Angelo Kasper MD LAB URINE ORDERABLES Final Res ult [facility]) [facility] [address] [place] [address], documented in this encounter Visit Diagnoses Diagnosis Encounter for other general examination documented in this encounter
--- OUTSIDE RECORDS SUMMARY | 2025-02-26 17:07 | XMS_ITS | Clinical Summary ---
Author Organization [facility] Address [address] [place] [address] Care Team Providers Care Ice Guard Skating Rink Name Role Phone Unavailable Primary Care Provider [...]
--- OUTSIDE RECORDS SUMMARY | 2025-02-26 17:07 | XMS_ITS | Encounter Summary ---
Author Organization [employer] [facility] Address [address] [place] [address] Care Team Providers Care Precision Instrument Maker Name Role Phone Unavailable Primary Care Provider Unavailabl e Encounter Details Date Type Department Care Team (Late st Contact Info) Description 09/29/2024 Lab Requisition [facility] - Main Lab [address] [place] [address] Angelo Kasper MD [address] [place] [phone] Encounter for other general examination Social History [...] LAB HEMETOLOGY METHOD 09/29/2024 11:08 AM EST [facility] RBC 4.10 3.80 - [...] Res ult [facility] [address] [place] [address], [place] [phone] * Magnesium (09/29/2024 7:35 AM EST) [facility] Magnesium 2.1 1.9 - 2.6 mg/dL LAB CHEMISTRY METHOD 09/29/2024 11:09 AM EST [facility] Blood Venous blood specimen / Unknown Venipuncture / Unknown 09/29/2024 7:35 AM EST 09/29/2024 10:30 AM EST us Angelo Kasper MD LAB BLOOD ORDERABLES Final Res ult [facility] [address] [place] [address], [place] [phone] * (ABNORMAL) Comprehensive metabolic panel (09/29/2024 7:35 AM EST) [facility] Sodium 138 133 - 145 mmol/L [...] Res ult [facility] [address] [place] [address], [place] [phone] documented in this encounter Visit Diagnoses Diagnosis Encounter for other general examination documented in this encounter
[2025-03-05 10:41] VITALS: BMI 24.9
--- NOTE | 2025-03-05 10:48 | P.CONAN_ITS ---
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) Meniere disease (Acute) Medication monitoring encounter (Acute) Spondylosis of lumbar spine (Acute) Generalized anxiety disorder (Acute) Recurrent aphthous stomatitis (Acute) Bicipital tendinitis of shoulder (Acute) Transient ischemic attack (TIA) (Acute) Osteoarthritis of shoulders, bilateral (Acute) Osteoarthritis of carpometacarpal (CMC) joint of right thumb (Acute) Polymyalgia rheumatica (Acute) Overweight (BMI 25.0-29.9) (Acute) High cholesterol (Acute) Seropositive rheumatoid arthritis (Acute) Anxiety and depression (Acute) Osteoporosis (Acute) Gout (Acute) Restless leg syndrome (Acute) Hypergammaglobulinemia (Acute) GERD (gastroesophageal reflux disease) (Acute) Seizure disorder (Acute) Hypertension (Acute) Hypercholesterolemia (Acute) Asthma (Acute) Peripheral neuropathy (Acute) Past Medical History Medical History (Updated 03/07/25 @ 06:47 by Cynthia Holm RN) Pre-op chest exam Meniere disease Transient ischemic attack (TIA) Osteoarthritis of shoulders, bilateral Osteoarthritis of carpometacarpal (CMC) joint of right thumb Overweight (BMI 25.0-29.9) High cholesterol Thrush, oral Nondisplaced fracture of fifth metatarsal bone, left foot, subsequent encounter for fracture with nonunion Seropositive rheumatoid arthritis Fracture of 5th metatarsal Fracture of fifth metatarsal bone of right foot Polymyalgia rheumatica Anxiety and depression Lumbar degenerative disc disease Osteoporosis Gout Restless leg syndrome Hypergammaglobulinemia GERD (gastroesophageal reflux disease) Seizure disorder Hypertension Hypercholesterolemia Asthma Peripheral neuropathy Rheumatoid arthritis Family History Family History Father CVD (cardiovascular disease) Mother No problems noted. 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 If so, by whom?: No Are you DNR?: No Advance Directives: Yes Advance Directives Information Provided: No Advance Directives on File: Yes Advance Directives Date on File: 07/11/23 Poor oral hygiene: No service: No Current occupational status: retired Cognitive needs: Yes (walker) Hearing needs: Yes Vision needs: Yes Meds Allergies Allergy/AdvReac Type Severity Reaction Status Date / Time alendronate sodium Allergy Severe ANAPHYLAXIS Verified 03/07/25 06:19 [From FOSAMAX] lisinopril [LISINOPRIL] Allergy Severe ANAPHYLAXIS, Verified 03/07/25 06:19 cough clarithromycin Allergy Intermediate CONFUSION, Verified 03/07/25 06:19 [CLARITHROMYCIN] sores on tongue, dry mouth simvastatin [SIMVASTATIN] Allergy Mild DRY Verified 03/07/25 06:19 THROAT, achy, confusion Home Medications ?Medication ?Instructions ?Recorded ?Confirmed ?Last Taken ?Type vitamin B complex (B 1 tab PO DAILY 09/04/20 03/05/25 09/26/24 History Complex-Vitamin B12 tablet) bisacodyl 5 mg tablet,delayed 5 mg PO DAILY PRN Constipation 09/27/24 03/05/25 Unknown History release amlodipine 5 mg tablet 5 mg PO DAILY 11/07/24 03/05/25 Unknown History Exam Height,Weight and Vital Signs: Height 5 ft 6 in Weight 69.853 kg Pertinent Lab Results Pertinent Lab Results: Laboratory Tests 02/19/25 14:57 WBC 7.5 Hgb 12.1 Hct 37.6 Plt Count 263 Sodium 140 Potassium 4.1 Chloride 108 Carbon Dioxide 23 BUN 15 Creatinine 0.68 Narrative Narrative: EKG 09/2024 Vent. Rate : 082 BPM Atrial Rate : 082 BPM P-R Int : 178 ms QRS Dur : 074 ms QT Int : 380 ms P-R-T Axes : 049 017 061 degrees QTc Int : 443 ms Normal sinus rhythm Possible Left atrial enlargement Low voltage QRS Cannot rule out Anterior infarct , age undetermined Abnormal ECG When compared with ECG of 15-JAN-2024 14:42, Nonspecific T wave abnormality now evident in Anterior leads Assessment and Plan Assessment Anesthesia Assessment: Chart Reviewed Final Anesthetic Review Family History of Problems with Anesthesia: No History of Problems with Anesthesia: No Documented by User: Chris Hopkins MD 03/07/25 07:36 [facility] Past Medical History Medical History (Updated 03/07/25 @ 06:47 by Cynthia Holm RN) Pre-op chest exam Meniere disease Transient ischemic attack (TIA) Osteoarthritis of shoulders, bilateral Osteoarthritis of carpometacarpal (CMC) joint of right thumb Overweight (BMI 25.0-29.9) High cholesterol Thrush, oral Nondisplaced fracture of fifth metatarsal bone, left foot, subsequent encounter for fracture with nonunion Seropositive rheumatoid arthritis Fracture of 5th metatarsal Fracture of fifth metatarsal bone of right foot Polymyalgia rheumatica Anxiety and depression Lumbar degenerative disc disease Osteoporosis Gout Restless leg syndrome Hypergammaglobulinemia GERD (gastroesophageal reflux disease) Seizure disorder Hypertension Hypercholesterolemia Asthma Peripheral neuropathy Rheumatoid arthritis Family History Family History Father CVD (cardiovascular disease) Mother No problems noted. 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 If so, by whom?: No Are you DNR?: No Advance Directives: Yes Advance Directives Information Provided: No Advance Directives on File: Yes Advance Directives Date on File: 07/11/23 Poor oral hygiene: No service: No Current occupational status: retired Cognitive needs: Yes (walker) Hearing needs: Yes Vision needs: Yes Meds Allergies Allergy/AdvReac Type Severity Reaction Status Date / Time alendronate sodium Allergy Severe ANAPHYLAXIS Verified 03/07/25 06:19 [From FOSAMAX] lisinopril [LISINOPRIL] Allergy Severe ANAPHYLAXIS, Verified 03/07/25 06:19 cough clarithromycin Allergy Intermediate CONFUSION, Verified 03/07/25 06:19 [CLARITHROMYCIN] sores on tongue, dry mouth simvastatin [SIMVASTATIN] Allergy Mild DRY Verified 03/07/25 06:19 THROAT, achy, confusion Home Medications ?Medication ?Instructions ?Recorded ?Confirmed ?Last Taken ?Type vitamin B complex (B 1 tab PO DAILY 09/04/20 03/05/25 09/26/24 History Complex-Vitamin B12 tablet) bisacodyl 5 mg tablet,delayed 5 mg PO DAILY PRN Constipation 09/27/24 03/05/25 Unknown History release amlodipine 5 mg tablet 5 mg PO DAILY 11/07/24 03/05/25 Unknown History Exam Airway Mallampati Class: II TM Dist: <=3cm Neck ROM: Full Denture: Lower Heart: ok. see above. Lungs: ok Assessment and Plan Assessment Anesthesia Assessment: Anesthesia Plan Discussed Final Anesthetic Review NPO: Yes ASA Class: IV Final Preanesthetic Review: No Changes in Pt Med Stat, Meds/Allgs Chart Reviewed, Consent Obtained/Reviewed and Anes Risks/Benef Reviewed Patient Risk: High Procedure Risk: Intermediate Anesthetic Plan Anesthetic Plan: Agree w/ Assess. and Plan and TIVA Disposition: Standard PACU
[2025-03-05 11:33] VITALS: BMI 24.9
[2025-03-07] VITALS (10 sets, daily range): BP systolic 121–151; BP diastolic 61–70; PULSE 74–96; RESP 16–18; TEMP 36.5–36.7; O2SAT 98
--- NOTE | ~2025-03-07 | FL_ITS ---
EXAMINATION: FL GUIDANCE ONLY HISTORY: SI joint peripheral nerve implant COMPARISON: None available. TECHNIQUE: Fluoroscopy time: 1.05 minutes. Cumulative Dose: 14.395 mGy. DAP: 6.2617 mGym2 Images: 4. FINDINGS: Images demonstrate placement of bilateral lumbosacral electrodes. FL/FL guidance in OR IMPRESSION: Fluoroscopy during procedure. Please see procedure report for additional information. Electronically signed by: Montana Beard MD 03/07/2025 10:29 AM EDT
[2025-03-07] MEDS: Lactated Ringers 1,000 ML 100 ML IVCONT (06:41)
--- NOTE | 2025-03-07 07:06 | MHC.SHP ---
Pre-Procedural Eval Section A - 24 Hr Update-Section A only Date of Service: 03/07/25 The patient is an INPATIENT: No Changes since office visit: Yes Patient answered all questions The patient has been examined within 24 hours of the surgical procedure. The History & Physical has been completed within 30 days and I have reviewed it.: No Section B - Complete if H&P > 30 days Chief Complaint: Sacrococcygeal disorders,sacroiliitis Details of Present Illness: As above Relevant Family History (Specify if Yes): No Relevant Social History: None Present Medications: see Short Stay Collaborative assessment Medical History: No relevant PMH History of Previous Operations: No relevant previous surgery Allergies: Allergies Allergy/AdvReac Type Severity Reaction Status Date / Time alendronate sodium Allergy Severe ANAPHYLAXIS Verified 03/07/25 06:19 [From FOSAMAX] lisinopril [LISINOPRIL] Allergy Severe ANAPHYLAXIS, Verified 03/07/25 06:19 cough clarithromycin Allergy Intermediate CONFUSION, Verified 03/07/25 06:19 [CLARITHROMYCIN] sores on tongue, dry mouth simvastatin [SIMVASTATIN] Allergy Mild DRY Verified 03/07/25 06:19 THROAT, achy, confusion Review of Systems Sugical H&P ROS: Negative: Constitution, Respiratory, Psychiatric, Hem-Onc, Allergic/Immunologic, Gastrointestinal, Genitourinary, Integumentary, Endocrine and Eyes/Ears/Nose/Throat and Yes, Specify: Cardiovascular (aortic stenosis mild), Neurological (H/o TIA) and Musculoskeletal (sacroiliitis) Exam Surgical H&P Exam: Normal: HEENT, Normal: Heart, Normal: Lungs, Normal: Extremities, Normal: Abdomen, Normal: Skin and Normal: Neurological Plan Diagnosis/Plan: Unchanged I have reviewed the history and physical and performed a pertinent physical examination on my patient. No changes have occurred unless specified. Time Spent With Patient Time: Total time managing care of this patient today ____ minutes.
[2025-03-07] MEDS: ceFAZolin Sodium/Dextrose,Iso 2 GM/50 ML PIGGYBACK IV (07:40)
[2025-03-07] MEDS: fentaNYL citrate/PF 100 MCG/2 ML VIAL 50 MCG IVPUSH ×2 (10:10→10:15)
--- NOTE | 2025-03-07 10:14 | PM.OP ---
Brief Operative Note Date of Service: 03/07/25 Pre-op diagnosis: Sacroiliitis, sacroiliac joint dysfunction bilateral Post-op diagnosis: same Procedure: Bilateral [employer] peripheral nerve stimulation of the sacroiliac joint innervation (medial cluneal nerves) implantation. Implants: Stimulating leads 2. [employer]onix Surgeon: Sotero Swann MD Anesthesia: MAC Was an Forestry Conservation Worker used for this Procedure?: No Estimated blood loss (mL): 8 Condition: stable Disposition: PACU
--- NOTE | 2025-03-07 10:18 | P.OP_ITS ---
Operative Note Operative Note Date of Service: 03/07/25 Narrative: Implantation of the sacroiliac joint innervation stimulation Curonix bilateral. Informed consent was thoroughly explained to the patient.? Risks and benefits were explained as bleeding infection peripheral nerve damage and other no unspecified risks. Patient ? was taken to the operating room, she was positioned prone on the operating table with the pillow under her pelvis.? [employer] monitors were applied and patient was deeply sedated. Time out was performed delineated correct name and of the patient, site, side and nature of the procedure, Need for DVT prophylaxis, risk of fire, need for antibiotics. patient received cefazolin 2 g preoperatively 20 minutes before the onset of the procedure Her lower back and buttocks was prepped with ChloraPrep twice, and laparoscopy whole-body sterile drape was applied, Ioban filled applied over the drape..? Sterilely draped C-arm was brought over the operating field and sq picture of patient's pelvis was demonstrated on the screen.? Attention was concentrated on the left SI joint. The sacral ala on the right was chosen as a target of the needle insertion. 3 cm above the sacral ala projection in the lumbar area injection of the local anesthetic miixture of lidocaine 2% with ropivacaine 0.5% one-to-one was performed in the skin in vertical fashion approximately 6 cm. Using 10 blade scalpel was used to make 6 cm skin incision. The incision was widened and deepened until subcutaneous fascia was exposed. Thorough hemostasis was obtained using electrocautery. After the 16 gauge introducer Curonix malleable needle? was inserted through the fascia and advanced toward the sacral alae on the right under AP and lateral images.? After needle met the bone on sacral ala it was redirected posterior and continued to advance alongside the curvature of the sacral bone.? When the tip of the needle reached the end of the projection of the sacroiliac joint inferiorly advancement stops and guitar wire was introduced into the needle.? It went through the needle without difficulties.? After that 4 electrode permanent stimulating array lead with plastic tines was inserted through the needle and advanced to the desired position.? The needle was removed and care was taken not to dislodge the lead.? The driving stylet was removed from the lead and it was replaced with stimulating copper wire antenna electrode.? After the anchoring device was dislodged on the stimulating lead and advanced to the level of fascia. It was deployed on the stimulating lead and after the the wings of the anchoring device were suture to the underlying fascia using 0 -0 Tycron sutures. After that attention was attracted to sacral allow on the left. 3 cm above the sacral up projection of the lumbar area injection of the local anesthetic mixture of lidocaine 2% and ropivacaine 0.5% one-to-one was performed in the skin in the vertical fashion approximately 6 cm. Using 10 blade scalpel vertical incision was made 6 cm long. The incision was widened and deepened until subcutaneous fascia was exposed. Thorough hemostasis was obtained using electrocautery. After that 16 gauge introducer Digital Orchidonix malleable needle was inserted through the fascia and advanced to were the sacral allow on the left under anterior posterior and lateral images. After needle med the bone on the sacral alae it was redirected posterior and continue to advance alongside the curvature of the sacral bone. When the tip of the needle reached the end of the projection of the sacroiliac joint inferiorly advancement stops and guitar wire was introduced into the needle. It went through the needle without difficulty. After that 4 electrode permanent stimulating RA lead with plastic tines was inserted through the needle and advanced to the desired position. The needle was removed and care was taken not to dislodge the lead. The driving stylette was removed from the lead and it was replaced with stimulating copper wire antenna electrode. After that anchoring device was dislodged on the stimulating lead and advanced to the level of fascia it was deployed on stimulating lead and after that the wings of the anchoring device were sutured to the underlying fascia using 0-0 Tycron sutures. After that attention was attracted to the midline spine in the projection of L3- L4 vertebra where the skin was infiltrated using lidocaine 2% and ropivacaine 0.5% one-to-one, after that 6 cm long incision was made and thorough hemostasis was obtained. The incision was widened and deepened and after that thorough irrigation was performed on all 3 incisions. The tunneling device was used to dislodge the stimulating leads into the midline incision. The knots were formed on each of the electrode, after that the coil was formed above the level of the knots. The coil was kept together with 0-0 silk free ties. After that Maria De Jesus clamp was used to form the pocket for the coil, the coil was inserted into the pocket and all wounds were irrigated again using normal saline mixed with vancomycin. After that thorough hemostasis was checked again, 0-2 Polysorb sutures were used to close all the wounds in 2 layers. After that hernan were applied to each of the wounds. Bacitracin was applied to the level of the hernan and then sterile dressing was applied using the Medipore tape. After that the stimulating paddle was taped to the area of the implantation of the device and abdominal binder was given to the patient to wear. After that the patient was awake, she was taken outside of the operating room to recovery room where she recovered uneventfully.
[2025-03-07] MEDS: Acetaminophen 325 MG TABLET 975 MG PO (10:25)
[2025-03-07] MEDS: oxyCODONE HCl Immed Release 5 MG TABLET PO (10:25)
== END 2025-03-07 11:53 | disposition home or self-care (01) ==
PROVIDERS: PCP Internal Medicine; Visit Provider Anesthesiology
PROC: (CPT 64590; principal; 2025-03-07 07:30)
DX: M46.1 Sacroiliitis, not elsewhere classified (principal); M53.3 Sacrococcygeal disorders, not elsewhere classified; G89.4 Chronic pain syndrome; M51.369 Other intervertebral disc degeneration, lumbar region without mention of lumbar back pain or lower extremity pain; M81.0 Age-related osteoporosis without current pathological fracture; Z87.310 Personal history of (healed) osteoporosis fracture; M05.9 Rheumatoid arthritis with rheumatoid factor, unspecified; M35.3 Polymyalgia rheumatica; I10 Essential (primary) hypertension; S32.010A Wedge compression fracture of first lumbar vertebra, initial encounter for closed fracture; X58.XXXA Exposure to other specified factors, initial encounter; Y93.9 Activity, unspecified; Y92.9 Unspecified place or not applicable; Y99.9 Unspecified external cause status; M10.9 Gout, unspecified; G40.909 Epilepsy, unspecified, not intractable, without status epilepticus; J45.909 Unspecified asthma, uncomplicated; E78.00 Pure hypercholesterolemia, unspecified; D89.2 Hypergammaglobulinemia, unspecified; Z94.7 Corneal transplant status; Z86.73 Personal history of transient ischemic attack (TIA), and cerebral infarction without residual deficits; Z88.8 Allergy status to other drugs, medicaments and biological substances
CPT/HCPCS: 64590; 64555 ×2; C1713; C1816; J0690; J2003; J2250; J2704; J2795; J3010; J3370

== ENCOUNTER → 2025-03-07 06:12 | Outpatient (BNV) | payer MEDICARE, OTHER, SELFPAY | PROVIDERS: PCP Internal Medicine; Visit Provider Anesthesiology | DX: M46.1 Sacroiliitis, not elsewhere classified (principal); M53.3 Sacrococcygeal disorders, not elsewhere classified | CPT/HCPCS: 64555 ==

== ENCOUNTER 2025-03-13 14:13 | Outpatient (AMB) | payer MEDICARE, OTHER, SELFPAY ==
--- NOTE | 2025-03-13 14:20 | A.OFFVIS_ITS ---
Vital Signs 03/13/25 14:22 Height 5 ft 7 in Weight 161 lb BMI 25.2 BP 198/81 H Blood Pressure Location Lt brachial Position Sitting Respiration 16 Pulse 80 Pulse Source Pulse Oximeter Pulse Oximetry (%) 97 Oxygen Delivery Method Room Air Intake Visit Reasons: S/p B/l SI Joint PNS IMPLANT 03/07/25 Director Of Public Health Required: No Allergies alendronate sodium [From FOSAMAX] Allergy (Severe, Verified 03/13/25 14:24) ANAPHYLAXIS lisinopril [LISINOPRIL] Allergy (Severe, Verified 03/13/25 14:24) ANAPHYLAXIS, cough clarithromycin [CLARITHROMYCIN] Allergy (Intermediate, Verified 03/13/25 14:24) CONFUSION, sores on tongue, dry mouth simvastatin [SIMVASTATIN] Allergy (Mild, Verified 03/13/25 14:24) DRY THROAT, achy, confusion Medication List - Last Reconciled 03/13/25 by Anabella Gómez LPN acetaminophen (Tylenol Extra Strength) 500 mg PO Q6H PRN allopurinol 100 mg PO DAILY amlodipine 5 mg PO DAILY atorvastatin 40 mg PO DAILY bisacodyl 5 mg PO DAILY PRN cholecalciferol (vitamin D3) 125 mcg PO DAILY clopidogrel (Plavix) 75 mg PO DAILY [CMF Bone Stimulator As directed] folic acid 1 mg PO DAILY lactulose 20 grams (30 mL) PO QID PRN meclizine 50 mg (2 x 25 mg) PO DAILY meloxicam 15 mg PO DAILY methocarbamol 750 mg PO QID PRN methotrexate sodium 15 mg (6 x 2.5 mg) PO QWEEK metoprolol succinate ER 25 mg PO DAILY montelukast 10 mg PO BEDTIME multivitamin 1 tab PO DAILY oxycodone 5 mg PO Q6H PRN 5 days MDD 4 pills pantoprazole 20 mg PO DAILY ropinirole 3 mg PO DAILY@1800 tramadol 50 mg PO Q6-8H PRN vitamin B complex (B Complex-Vitamin B12 tablet) 1 tab PO DAILY HPI Comments Details: Ellie ChanJennifer) is in my office today after the implantation of Curonix PNS bilateral sacroiliac joint innervation. The dressing was removed and area was prepped with ChloraPrep. There is mild redness on the top of midline wound, minimal redness at the rest of the wounds. no swelling no pathological discharge , no tenderness on palpation. The wounds were washed with ChloraPrep and draped with sterile 4x4s and Tegaderm. The stimulating pad was applied. Patient will be seen in 1 week to remove the hernan. Prior: Results of the bilateral sacroiliac joint injection. Excellent pain relief on bilateral SI joint diagnostic injection. Patient is 84 years old and suffers from the osteoporosis. Steroid injections are not ideal situation for this patient. Prior: She reports severe pain in the lower lumbar spine. She reports pain exacerbates with flexing forward and lifting things from the ground. On physical examination attention was attracted to signs of sacroiliitis. In the past she received from me diagnostic sacroiliac joint injection with 60% pain improvement. Now she reports severe pain 10/10 today, I feel like I have to perform again diagnostic sacroiliac joint injection. This patient was diagnose recently with L1 compression fracture. There is widespread diffuse osteopenia on her x-rays well. Therefore injection of the steroids will not be a good idea, however we can try peripheral nerve stimulation sprint versus peripheral nerve sprint stimulation cure on X. In regarding of her or diagnostic medial branch block she reported significant pain relieve on the left side immediately after the injection however she reported pain aggravation on the right side due to injection immediately after injection.? However on bilateral sacroiliac joint diagnostic injection on 12/13/2022 she reported 50-60% pain improvement after the injection.? The pain of this patient is most likely multifactorial.? She has significant rheumatoid arthritis which effects her shoulder joints her lumbar spine as well as her sacroiliac joints.? I offered her to perform bilateral sacroiliac joint injection therapeutic this time.? I will schedule this procedure without sedation.? She has an appointment with Dr. Guidry for evaluation of her shoulder pain.? Because of her severe osteopenia I would not recommend steroid injections for this patient. [facility] Medical History (Updated 03/07/25 @ 06:47 by Cynthia Holm RN) Pre-op chest exam Meniere disease Transient ischemic attack (TIA) Osteoarthritis of shoulders, bilateral Osteoarthritis of carpometacarpal (CMC) joint of right thumb Overweight (BMI 25.0-29.9) High cholesterol Thrush, oral Nondisplaced fracture of fifth metatarsal bone, left foot, subsequent encounter for fracture with nonunion Seropositive rheumatoid arthritis Fracture of 5th metatarsal Fracture of fifth metatarsal bone of right foot Polymyalgia rheumatica Anxiety and depression Lumbar degenerative disc disease Osteoporosis Gout Restless leg syndrome Hypergammaglobulinemia GERD (gastroesophageal reflux disease) Seizure disorder Hypertension Hypercholesterolemia Asthma Peripheral neuropathy Rheumatoid arthritis Surgical History History of surgery (02/07/25) History of bilateral knee replacement Corneal transplant status History of arthroplasty of right hip History of total abdominal hysterectomy History of corneal transplant H/O left knee surgery History of open reduction and internal fixation (ORIF) procedure History of cholecystectomy History of appendectomy Family History Father CVD (cardiovascular disease) Mother No problems noted. Social History (Updated 03/05/25 @ 11:20 by Maryann Hernandez RN) Household Members: Significant Other Household Members Other:: parter Housing: House Are you a primary post acute care registered nurse to a significant other at home: No Do you presently have visiting nurse or other home services: No Alcohol intake: current Alcohol intake frequency: holidays/special occasions only Alcohol type: wine Comment: counts correct Patient Tobacco Use Status: Never used Tobacco e-Cigarette/Vaping Use: Never Used Second Hand Smoke Exposure: No Advance Directives Date on File: 07/11/23 service: No Current occupational status: retired Cognitive needs: Yes (walker) Hearing needs: Yes Vision needs: Yes Review of Systems Const All systems reviewed & are unremarkable except as noted in HPI and below Physical Exam Vital Signs: Last Vital Signs Pulse 80 03/13/25 14:22 Resp 16 03/13/25 14:22 BP 198/81 H 03/13/25 14:22 Pulse Ox 97 03/13/25 14:22 Oxygen Delivery Method Room Air 03/13/25 14:22 BMI result Body Mass Index 25.2 Const General: cooperative, comfortable and no acute distress Nutritional Appearance: well nourished Orientation/consciousness: patient oriented x3 Limitations: physical limitations Chest Chest palpation & inspection: normal inspection of the chest Resp Effort & Inspection: normal respiratory effort, able to speak in complete sentences, normal respiratory pattern, no audible wheezes, no cough, respiratory effort not decreased, no grunting and not labored Cardio Jugular venous distension: no JVD GI Inspection: Yes normal to inspection Back/Spine/Pelvis Other: Tenderness on palpation in paraspinal spinal region of lumbar spine.. Danial test is negative bilaterally however pelvis compression test, thigh thrust test, Gaenslen test positive bilaterally. Fourteen finger test is positive bilaterally more on the left. Neuro General: patient oriented x3 Assessment & Plan Assessment & Plan (1) Rheumatoid arthritis: Code(s): M06.9 - Rheumatoid arthritis, unspecified Category: Medical (2) Spondylosis of lumbar spine: Code(s): M47.816 - Spondylosis without myelopathy or radiculopathy, lumbar region Category: Medical (3) Sacroiliitis: Code(s): M46.1 - Sacroiliitis, not elsewhere classified Category: Medical (4) Pain of both sacroiliac joints: Code(s): M53.3 - Sacrococcygeal disorders, not elsewhere classified Category: Medical (5) Chronic pain syndrome: Code(s): G89.4 - Chronic pain syndrome Category: Medical (6) Sacroiliac joint dysfunction of both sides: Code(s): M53.3 - Sacrococcygeal disorders, not elsewhere classified Category: Medical (7) Compression fracture of L1 lumbar vertebra: Comment: indeterminate age Code(s): S32.010A - Wedge compression fracture of first lumbar vertebra, initial encounter for closed fracture Category: Medical Plan Medial branch block injection on 12/06/2022 resulted in profound pain relieve on the left side however significant aggravation of the pain on the right side. Sacroiliac joint injection resulted in 50-60% pain improvement on bilateral pain. Repeats diagnostic sacroiliac joint injection resulted in 60-70% pain improvement. Curonix PNS Trial of bilateral stimulation of sacroiliac joint innervation resulted in 75% pain improvement. The patient presents today after the implantation of the device. next week she will come for removal of the hernan. Patient was counseled about mobilities and activities limitations. We also discussed hygiene limitations. The patient expressed understanding. She discussed with cure on X senior account representative different modalities of the stimulation. This patient is suffering from seropositive rheumatoid arthritis and she is under care of Dr. Pinto receiving DMARDS. Coding Level of Care Code Est Pt Level 3 (05220) Diagnoses Rheumatoid arthritis M06.9 Spondylosis of lumbar spine M47.816 Sacroiliitis M46.1 Pain of both sacroiliac joints M53.3 Chronic pain syndrome G89.4 Sacroiliac joint dysfunction of both sides M53.3 Compression fracture of L1 lumbar vertebra S32.010A
[2025-03-13 14:22] VITALS: BP 198/81; PULSE 80; RESP 16; O2SAT 97; BMI 25.2
--- OUTSIDE RECORDS SUMMARY | 2025-03-13 15:05 | XMS_ITS | Clinical Summary ---
Author Organization [facility] Address [address] [place] [address] Care Team Providers Care General Merchandise Salesperson Name Role Phone Unavailable Primary Care Provider [...]
--- OUTSIDE RECORDS SUMMARY | 2025-03-13 15:06 | XMS_ITS | Clinical Summary ---
Author Organization [address] [facility] Address [address] [place] [address] Phone Care Team Providers Care Coffee Urn Attendant Name Role Phone Unavailable Primary Care Provider [...]
--- OUTSIDE RECORDS SUMMARY | 2025-03-13 15:06 | XMS_ITS | Encounter Summary ---
Author Organization [facility] Address [address] [place] [address] Care Team Providers Care Etched Circuit Processor Name Role Phone Unavailable Primary Care Provider Unavailabl e Encounter Details Date Type Department Care Team (Late st Contact Info) Description 10/04/2024 Lab Requisition [facility] Lab [address] [facility] [place] [address] Angelo Kasper MD [address] [place] [address] [phone] Encounter for other general examination Social History [...] microscopic and culture (10/04/2024 4:00 AM EST) [facility] Specific [place] Urine 1.018 1.003 - 1.030 LAB URINALYSIS - AUTOMATED METHOD 10/04/2024 9:55 AM [facility] pH, Urine 7.0 5.0 - 8.0 pH LAB URINALYSIS - AUTOMATED METHOD 10/04/2024 9:55 AM [facility] Leukocytes, Urine Negative Negative LAB URINALYSIS - AUTOMATED METHOD 10/04/2024 9:55 AM [facility] Nitrite, Urine Negative Negative LAB URINALYSIS - AUTOMATED METHOD 10/04/2024 9:55 AM [facility] Protein, Urine Negative <=Trace mg/dL LAB URINALYSIS - AUTOMATED METHOD 10/04/2024 9:55 AM [facility] Glucose, Urine Negative Negative mg/dL LAB URINALYSIS - AUTOMATED METHOD 10/04/2024 9:55 AM [facility] Ketones, Urine Trace(A) Negative mg/dL LAB URINALYSIS - AUTOMATED METHOD 10/04/2024 9:55 AM [facility] Urobilinogen, Urine 1.0 0.2 - 1.0 mg/dL LAB URINALYSIS - AUTOMATED METHOD 10/04/2024 9:55 AM [facility] Bilirubin, Urine Negative Negative LAB URINALYSIS - AUTOMATED METHOD 10/04/2024 9:55 AM [facility] Blood, Urine Negative Negative LAB URINALYSIS - AUTOMATED METHOD 10/04/2024 9:55 AM [facility] Urine Urine specimen obtained by clean catch procedure / Unknown Non-blood Collection / Unknown 10/04/2024 4:00 AM EST 10/04/2024 9:37 AM EST us Angelo Kasper MD LAB URINE ORDERABLES Final Res ult [facility] [address] [place] [address], [place] [phone] * [place] urine culture tube (10/04/2024 4:00 AM EST) Extra Tube Hold for add-ons. 10/04/2024 11:01 AM EST [facility] Comment:Auto resulted. Urine Urine specimen obtained by clean catch procedure / Unknown Non-blood Collection / Unknown 10/04/2024 4:00 AM EST 10/04/2024 9:37 AM EST us Angelo Kasper MD LAB URINE ORDERABLES Final Res ult [facility] [address] [place] [address], [place] [phone] * Sodium, urine, random (10/04/2024 4:00 AM EST) Sodium, Ur 87 mmol/L LAB CHEMISTRY METHOD 10/04/2024 10:46 AM EST [facility] Urine Urine specimen obtained by clean catch procedure / Unknown Non-blood Collection / Unknown 10/04/2024 4:00 AM EST 10/04/2024 9:37 AM EST us Angelo Kasper MD LAB URINE ORDERABLES Final Res ult [facility] [address] [place] [address], [place] [phone] * Osmolality, urine (10/04/2024 4:00 AM EST) Osmolality, Urine 475 300 - 1,300 mOsm/kg LAB CHEMISTRY METHOD 10/04/2024 10:45 AM EST [facility] Urine Urine specimen obtained by clean catch procedure / Unknown Non-blood Collection / Unknown 10/04/2024 4:00 AM EST 10/04/2024 9:37 AM EST us Angelo Kasper MD LAB URINE ORDERABLES Final Res ult [facility] [address] [place] [address], documented in this encounter Visit Diagnoses Diagnosis Encounter for other general examination documented in this encounter
--- OUTSIDE RECORDS SUMMARY | 2025-03-13 15:06 | XMS_ITS | Encounter Summary ---
Author Organization [facility] Address [address] [place] [address] Care Team Providers Care Licensed Midwife Name Role Phone Unavailable Primary Care Provider Unavailabl e Encounter Details Date Type Department Care Team (Late st Contact Info) Description 10/11/2024 Lab Requisition [facility] [address] [facility] [place] [address] Angelo Kasper MD [address] [place] [phone] Encounter for other general examination Social History [...] LAB CHEMISTRY METHOD 10/11/2024 1:13 PM EST [facility] Potassium 4.0 3.5 - 5.5 mmol/L LAB CHEMISTRY METHOD 10/11/2024 1:13 PM EST [facility] Chloride 102 96 - 110 mmol/L LAB CHEMISTRY METHOD 10/11/2024 1:13 PM EST [facility] CO2 23 21 - 32 mmol/L LAB CHEMISTRY METHOD 10/11/2024 1:13 PM EST [facility] Anion Gap 9 3 [...] Res ult [facility] [address] [place] [address], documented in this encounter Visit Diagnoses Diagnosis Encounter for other general examination documented in this encounter
--- OUTSIDE RECORDS SUMMARY | 2025-03-13 15:06 | XMS_ITS | Encounter Summary ---
Author Organization [facility] Address [address] [place] [address] Care Team Providers Care Senior Linux Systems Engineer Name Role Phone Unavailable Primary Care Provider Unavailabl e Encounter Details Date Type Department Care Team (Late st Contact Info) Description 10/06/2024 Lab Requisition [facility] - Main Lab 299 [facility] [place] [address] Angelo Kasper MD [address] [place] [address] Encounter for other general examination Social History [...] LAB CHEMISTRY METHOD 10/06/2024 9:33 AM EST [facility] LAB Blood Venous blood specimen / Unknown Venipuncture / Unknown 10/06/2024 5:48 AM EST 10/06/2024 6:48 AM EST Narrative [facility] - 10/06/2024 9:33 AM EST [facility] ?? 8 AM SPEC: ??5.0-23.0 mcg/dL ?? 4 PM SPEC: ??3.0-16.0 mcg/dL ?? 8 PM SPEC: ??<5.0 mcg/dL us Angelo Kasper MD LAB BLOOD ORDERABLES Final Res ult Performing Organization Address City/[facility]/ZIP Co de Phone Number [facility] [address] [place] [address], [place] [phone] * Thyroid stimulating hormone (10/06/2024 5:48 AM EST) [facility] TSH 2.14 0.40 - 4.00 mcIU/mL LAB CHEMISTRY METHOD 10/06/2024 8:28 AM EST [facility] Blood Venous blood specimen / Unknown Venipuncture / Unknown 10/06/2024 5:48 AM EST 10/06/2024 6:48 AM EST us Angelo Kasper MD LAB BLOOD ORDERABLES Final Res ult Performing Organization Address [facility]/ZIP Co de Phone Number [facility] [address] [place] [address], [place] [phone] * (ABNORMAL) Basic metabolic panel (10/06/2024 5:48 AM EST) [facility] Sodium 130(L) 133 - 145 mmol/L LAB CHEMISTRY METHOD 10/06/2024 7:23 AM EST [facility] Potassium 4.0 3.5 - 5.5 mmol/L LAB CHEMISTRY METHOD 10/06/2024 7:23 AM EST [facility] Chloride 98 96 - 110 mmol/L LAB CHEMISTRY METHOD 10/06/2024 7:23 AM EST [facility] CO2 26 21 - 32 mmol/L LAB CHEMISTRY METHOD 10/06/2024 7:23 AM EST [facility] Anion Gap 6 3 - 11 LAB CHEMISTRY METHOD 10/06/2024 7:23 AM [facility] LAB Glucose 76 70 - 100 mg/dL LAB CHEMISTRY METHOD 10/06/2024 7:23 AM [facility] LAB BUN 9 5 - 25 mg/dL LAB CHEMISTRY METHOD 10/06/2024 7:23 AM [facility] LAB Creatinine 0.62 0.50 - 1.10 mg/dL LAB CHEMISTRY METHOD 10/06/2024 7:23 AM [facility] LAB eGFR 87 >=60 mL/min/1. 73m2 LAB CHEMISTRY METHOD 10/06/2024 7:23 AM [facility] LAB Comment:Calculation based on the??Chronic Kidney Disease Epidemiology Collaboration (CKD-EPI) equation refit??without adjustment for race. BUN/Creatinine Ratio 14.5 LAB CHEMISTRY METHOD 10/06/2024 7:23 AM [facility] LAB Calcium 8.4(L) 8.5 - 10.5 mg/dL LAB CHEMISTRY METHOD 10/06/2024 7:23 AM [facility] LAB Blood Venous blood specimen / Unknown Venipuncture / Unknown 10/06/2024 5:48 AM EST 10/06/2024 6:48 AM EST us Angelo Kasper MD LAB BLOOD ORDERABLES Final Res ult [facility] [address] [place] [address], documented in this encounter Visit Diagnoses Diagnosis Encounter for other general examination documented in this encounter
--- OUTSIDE RECORDS SUMMARY | 2025-03-13 15:06 | XMS_ITS | Encounter Summary ---
Author Organization [employer] [facility] Address [address] [place] [address] Care Team Providers Care Executive Sales Manager Name Role Phone Unavailable Primary Care Provider Unavailabl e Encounter Details Date Type Department Care Team (Late st Contact Info) Description 10/09/2024 Lab Requisition [facility] Lab 299 [facility] [employer] [address] Angelo Kasper MD [address] [place] [address] Encounter for other general examination Social History [...] 11 LAB CHEMISTRY METHOD 10/09/2024 12:04 PM [facility] LAB Glucose 62(L) 70 - 100 mg/dL LAB CHEMISTRY METHOD 10/09/2024 12:04 PM [facility] LAB BUN 12 5 - 25 mg/dL LAB CHEMISTRY METHOD 10/09/2024 12:04 PM [facility] LAB Creatinine 0.71 0.50 - 1.10 mg/dL LAB CHEMISTRY METHOD 10/09/2024 12:04 PM [facility] LAB eGFR 83 >=60 mL/min/1. 73m2 LAB CHEMISTRY METHOD 10/09/2024 12:04 PM [facility] LAB Comment:Calculation based on the??Chronic Kidney Disease Epidemiology Collaboration (CKD-EPI) equation refit??without adjustment for race. BUN/Creatinine Ratio 16.9 LAB CHEMISTRY METHOD 10/09/2024 12:04 PM [facility] LAB Calcium 8.8 8.5 - 10.5 mg/dL LAB CHEMISTRY METHOD 10/09/2024 12:04 PM [facility] LAB Blood Venous blood specimen / Unknown Venipuncture / Unknown 10/09/2024 7:03 AM EST 10/09/2024 10:19 AM EST us Angelo Kasper MD LAB BLOOD ORDERABLES Final Res ult [facility] LAB [address] [place] [address], [place] [phone] documented in this encounter Visit Diagnoses Diagnosis Encounter for other general examination documented in this encounter
--- OUTSIDE RECORDS SUMMARY | 2025-03-13 15:06 | XMS_ITS | Encounter Summary ---
Author Organization [employer] [facility] Address [address] [place] [address] Care Team Providers Care Bag Hanger Name Role Phone Unavailable Primary Care Provider Unavailabl e Encounter Details Date Type Department Care Team (Late st Contact Info) Description 10/05/2024 Lab Requisition [facility] - Main Lab 299 [facility] [place] [address] Angelo Kasper MD [address] [place] [address] Encounter for other general examination Social History [...] LAB CHEMISTRY METHOD 10/05/2024 11:02 AM EST [facility] LAB Potassium 4.1 3.5 - 5.5 mmol/L LAB CHEMISTRY METHOD 10/05/2024 11:02 AM EST [facility] LAB Chloride 93(L) 96 - 110 mmol/L LAB CHEMISTRY METHOD 10/05/2024 11:02 AM EST [facility] LAB CO2 27 21 - 32 mmol/L LAB CHEMISTRY METHOD 10/05/2024 11:02 AM EST [facility] LAB Anion Gap 6 3 - 11 LAB CHEMISTRY METHOD 10/05/2024 11:02 AM [facility] LAB Glucose 70 70 - 100 mg/dL LAB CHEMISTRY METHOD 10/05/2024 11:02 AM [facility] LAB BUN 11 5 - 25 mg/dL LAB CHEMISTRY METHOD 10/05/2024 11:02 AM [facility] LAB Creatinine 0.71 0.50 - 1.10 mg/dL LAB CHEMISTRY METHOD 10/05/2024 11:02 AM [facility] LAB eGFR 83 >=60 mL/min/1. 73m2 LAB CHEMISTRY METHOD 10/05/2024 11:02 AM [facility] LAB Comment:Calculation based on the??Chronic Kidney Disease Epidemiology Collaboration (CKD-EPI) equation refit??without adjustment for race. BUN/Creatinine Ratio 15.5 LAB CHEMISTRY METHOD 10/05/2024 11:02 AM [facility] LAB Calcium 8.6 8.5 - 10.5 mg/dL LAB CHEMISTRY METHOD 10/05/2024 11:02 AM [facility] LAB Blood Venous blood specimen / Unknown Venipuncture / Unknown 10/05/2024 6:03 AM EST 10/05/2024 9:38 AM EST us Angelo Kasper MD LAB BLOOD ORDERABLES Final Res ult [facility] [address] [place] [address], [place] [phone] documented in this encounter Visit Diagnoses Diagnosis Encounter for other general examination documented in this encounter
--- OUTSIDE RECORDS SUMMARY | 2025-03-13 15:06 | XMS_ITS | Encounter Summary ---
Author Organization [facility] Address [address] [place] [address] Care Team Providers Care Assisted Sales Representative Name Role Phone Unavailable Primary Care Provider Unavailabl e Encounter Details Date Type Department Care Team (Late st Contact Info) Description 10/04/2024 Lab Requisition [facility] - Main Lab [address] [place] [address] Angelo Kasper MD [address] [place] [address] Encounter for other general examination Social History [...] Res ult [facility] LAB [address] [place] [address], [place] [phone] documented in this encounter Visit Diagnoses Diagnosis Encounter for other general examination documented in this encounter
--- OUTSIDE RECORDS SUMMARY | 2025-03-13 15:06 | XMS_ITS | Encounter Summary ---
Author Organization [employer] Address [address] [place] [address] Care Team Providers Care Nurse Healthcare Manager Name Role Phone Unavailable Primary Care Provider Unavailabl e Encounter Details Date Type Department Care Team (Late st Contact Info) Description 09/29/2024 Lab Requisition [facility] - Main Lab [address] [place] [address] Angelo Kasper MD [address] [place] [address] Encounter for other general examination Social History [...] LAB HEMETOLOGY METHOD 09/29/2024 11:08 AM EST [facility] LAB RBC 4.10 3.80 - 4.80 M/mcL LAB HEMETOLOGY METHOD 09/29/2024 11:08 AM [facility] LAB Hemoglobin 12.5 11.5 - 16.0 g/dL LAB HEMETOLOGY METHOD 09/29/2024 11:08 AM [facility] LAB Hematocrit 39.9 35.0 - 47.0 % LAB HEMETOLOGY METHOD 09/29/2024 11:08 AM [facility] LAB MCV 96.8 79.0 - 98.0 FL LAB HEMETOLOGY METHOD 09/29/2024 11:08 AM [facility] LAB MCH 30.3 27.0 - 32.0 pcg LAB HEMETOLOGY METHOD 09/29/2024 11:08 AM [facility] LAB MCHC 31.3(L) 32.0 - 37.0 g/dL LAB HEMETOLOGY METHOD 09/29/2024 11:08 AM [facility] LAB RDW 14.0 11.0 - 15.0 % LAB HEMETOLOGY METHOD 09/29/2024 11:08 AM [facility] LAB Platelets 293 130 - 400 K/mcL LAB HEMETOLOGY METHOD 09/29/2024 11:08 AM [facility] LAB MPV 9.5 7.0 - 11.0 FL LAB HEMETOLOGY METHOD 09/29/2024 11:08 AM [facility] LAB NRBC 0.0 <1.0 % LAB HEMETOLOGY METHOD 09/29/2024 11:08 AM [facility] LAB NRBC Absolute 0.00 <0.10 K/mcL LAB HEMETOLOGY METHOD 09/29/2024 11:08 AM [facility] LAB Neutrophils Relative 54.5 % LAB HEMETOLOGY METHOD 09/29/2024 11:08 AM [facility] LAB Lymphocytes Relative 34.1 % LAB HEMETOLOGY METHOD 09/29/2024 11:08 AM [facility] LAB Monocytes Relative 5.0 % LAB HEMETOLOGY METHOD 09/29/2024 11:08 AM [facility] LAB Eosinophils Relative 4.3 % LAB HEMETOLOGY METHOD 09/29/2024 11:08 AM [facility] LAB Basophils Relative 1.0 % LAB HEMETOLOGY METHOD 09/29/2024 11:08 AM [facility] LAB Immature Granulocytes Relative 1.1 % LAB HEMETOLOGY METHOD 09/29/2024 11:08 AM [facility] LAB Neutrophils Absolute 6.25 1.50 - 7.00 K/mcL LAB HEMETOLOGY METHOD 09/29/2024 11:08 AM [facility] LAB Lymphocytes Absolute 3.93 1.00 - 5.00 K/mcL LAB HEMETOLOGY METHOD 09/29/2024 11:08 AM [facility] LAB Monocytes Absolute 0.58 0.20 - 1.00 K/mcL LAB HEMETOLOGY METHOD 09/29/2024 11:08 AM [facility] LAB Eosinophils Absolute 0.50 0.00 - 0.50 K/mcL LAB HEMETOLOGY METHOD 09/29/2024 11:08 AM [facility] LAB Basophils Absolute 0.12 0.00 - 0.20 K/mcL LAB HEMETOLOGY METHOD 09/29/2024 11:08 AM [facility] LAB Immature Granulocytes Absolute 0.13(H) 0.00 - 0.03 K/mcL LAB HEMETOLOGY METHOD 09/29/2024 11:08 AM [facility] LAB Blood Venous blood specimen / Unknown Venipuncture / Unknown 09/29/2024 7:35 AM EST 09/29/2024 10:30 AM EST us Angelo Kasper MD LAB BLOOD ORDERABLES Final Res ult [facility] LAB [address] [place] [address], [place] [phone] * Magnesium (09/29/2024 7:35 AM EST) [facility] Magnesium 2.1 1.9 - 2.6 mg/dL LAB CHEMISTRY METHOD 09/29/2024 11:09 AM EST [facility] LAB Blood Venous blood specimen / Unknown Venipuncture / Unknown 09/29/2024 7:35 AM EST 09/29/2024 10:30 AM EST us Angelo Kasper MD LAB BLOOD ORDERABLES Final Res ult [facility] LAB [address] [place] [address], [place] [phone] * (ABNORMAL) Comprehensive metabolic panel (09/29/2024 7:35 AM EST) [facility] Sodium 138 133 - 145 mmol/L LAB CHEMISTRY METHOD 09/29/2024 11:09 AM [facility] LAB Potassium 4.8 3.5 - 5.5 mmol/L LAB CHEMISTRY METHOD 09/29/2024 11:09 AM [facility] LAB Chloride 107 96 - 110 mmol/L LAB CHEMISTRY METHOD 09/29/2024 11:09 AM [facility] LAB CO2 24 21 - 32 mmol/L LAB CHEMISTRY METHOD 09/29/2024 11:09 AM [facility] LAB Anion Gap 7 3 - 11 LAB CHEMISTRY METHOD 09/29/2024 11:09 AM [facility] LAB Glucose 75 70 - 100 mg/dL LAB CHEMISTRY METHOD 09/29/2024 11:09 AM [facility] LAB BUN 16 5 - 25 mg/dL LAB CHEMISTRY METHOD 09/29/2024 11:09 AM [facility] LAB Creatinine 0.79 0.50 - 1.10 mg/dL LAB CHEMISTRY METHOD 09/29/2024 11:09 AM [facility] LAB eGFR 73 >=60 mL/min/1. 73m2 LAB CHEMISTRY METHOD 09/29/2024 11:09 AM [facility] LAB Comment:Calculation based on the??Chronic Kidney Disease Epidemiology Collaboration (CKD-EPI) equation refit??without adjustment for race. BUN/Creatinine Ratio 20.3 LAB CHEMISTRY METHOD 09/29/2024 11:09 AM [facility] LAB Calcium 9.3 8.5 - 10.5 mg/dL LAB CHEMISTRY METHOD 09/29/2024 11:09 AM [facility] LAB AST (SGOT) 29 10 - 42 unit/L LAB CHEMISTRY METHOD 09/29/2024 11:09 AM [facility] LAB ALT (SGPT) 33 10 - 60 unit/L LAB CHEMISTRY METHOD 09/29/2024 11:09 AM [facility] LAB Alkaline Phosphatase 134(H) 42 - 121 unit/L LAB CHEMISTRY METHOD 09/29/2024 11:09 AM [facility] LAB Total Protein 6.8 6.0 - 8.0 g/dL LAB CHEMISTRY METHOD 09/29/2024 11:09 AM [facility] LAB Albumin 3.5 3.2 - 5.0 g/dL LAB CHEMISTRY METHOD 09/29/2024 11:09 AM [facility] LAB Total Bilirubin 0.5 0.0 - 1.4 mg/dL LAB CHEMISTRY METHOD 09/29/2024 11:09 AM [facility] LAB Blood Venous blood specimen / Unknown Venipuncture / Unknown 09/29/2024 7:35 AM EST 09/29/2024 10:30 AM EST us Angelo Kasper MD LAB BLOOD ORDERABLES Final Res ult [facility] LAB [address] [place] [address], [place] [phone] documented in this encounter Visit Diagnoses Diagnosis Encounter for other general examination documented in this encounter
--- OUTSIDE RECORDS SUMMARY | 2025-03-13 15:06 | XMS_ITS | Encounter Summary ---
Author Organization [employer] [facility] Address [address] [place] [address] Care Team Providers Care Abattoir Supervisor Name Role Phone Unavailable Primary Care Provider Unavailabl e Encounter Details Date Type Department Care Team (Late st Contact Info) Description 10/07/2024 Lab Requisition [facility] Lab [address] [facility] [place] [address] Angelo Kasper MD [address] [place] [address] Encounter for other general examination Social History [...] LAB CHEMISTRY METHOD 10/07/2024 2:59 PM EST [facility] LAB Potassium 4.2 3.5 - 5.5 mmol/L LAB CHEMISTRY METHOD 10/07/2024 2:59 PM EST [facility] LAB Chloride 98 96 - 110 mmol/L LAB CHEMISTRY METHOD 10/07/2024 2:59 PM EST [facility] LAB CO2 22 21 - 32 mmol/L LAB CHEMISTRY METHOD 10/07/2024 2:59 PM EST [facility] LAB Anion Gap 10 3 - 11 LAB CHEMISTRY METHOD 10/07/2024 2:59 PM EST [facility] LAB Glucose 63(L) 70 - 100 [...] Res ult [facility] LAB [address] [place] [address], documented in this encounter Visit Diagnoses Diagnosis Encounter for other general examination documented in this encounter
--- OUTSIDE RECORDS SUMMARY | 2025-03-13 15:06 | XMS_ITS | Encounter Summary ---
Author Organization [employer] [facility] Address [address] [place] [address] Care Team Providers Care Photo Producer Name Role Phone Unavailable Primary Care Provider Unavailabl e Encounter Details Date Type Department Care Team (Late st Contact Info) Description 10/03/[address] [facility] - Main Lab [address] [place] [address] Angelo Kasper MD [address] [place] [address] Encounter for other general examination Social History [...] AM EST) WBC 4.2(L) 4.8 - 10.8 K/[facility] LAB HEMETOLOGY METHOD 10/03/2024 11:02 AM EST [facility] LAB RBC 4.00 3.80 - 4.80 M/[facility] LAB HEMETOLOGY METHOD 10/03/2024 11:02 AM [facility] LAB Hemoglobin 12.0 11.5 - 16.0 g/dL LAB HEMETOLOGY METHOD 10/03/2024 11:02 AM [facility] LAB Hematocrit 37.5 35.0 - 47.0 % LAB HEMETOLOGY METHOD 10/03/2024 11:02 AM [facility] LAB MCV 94.5 79.0 - 98.0 FL LAB HEMETOLOGY METHOD 10/03/2024 11:02 AM [facility] LAB MCH 30.2 27.0 - 32.0 pcg LAB HEMETOLOGY METHOD 10/03/2024 11:02 AM [facility] LAB MCHC 32.0 32.0 - 37.0 g/dL LAB HEMETOLOGY METHOD 10/03/2024 11:02 AM [facility] LAB RDW 13.8 11.0 - 15.0 % LAB HEMETOLOGY METHOD 10/03/2024 11:02 AM [facility] LAB Platelets 224 130 - 400 K/mcL LAB HEMETOLOGY METHOD 10/03/2024 11:02 AM [facility] LAB MPV 9.6 7.0 - 11.0 FL LAB HEMETOLOGY METHOD 10/03/2024 11:02 AM [facility] LAB NRBC 0.0 <1.0 % LAB HEMETOLOGY METHOD 10/03/2024 11:02 AM [facility] LAB NRBC Absolute 0.00 <0.10 K/mcL LAB HEMETOLOGY METHOD 10/03/2024 11:02 AM [facility] LAB Neutrophils Relative 57.4 % LAB HEMETOLOGY METHOD 10/03/2024 11:02 AM [facility] LAB Lymphocytes Relative 22.8 % LAB HEMETOLOGY METHOD 10/03/2024 11:02 AM [facility] LAB Monocytes Relative 13.5 % LAB HEMETOLOGY METHOD 10/03/2024 11:02 AM [facility] LAB Eosinophils Relative 3.1 % LAB HEMETOLOGY METHOD 10/03/2024 11:02 AM [facility] LAB Basophils Relative 1.0 % LAB HEMETOLOGY METHOD 10/03/2024 11:02 AM [facility] LAB Immature Granulocytes Relative 2.2 % LAB HEMETOLOGY METHOD 10/03/2024 11:02 AM [facility] LAB Neutrophils Absolute 2.39 1.50 - 7.00 K/mcL LAB HEMETOLOGY METHOD 10/03/2024 11:02 AM [facility] LAB Lymphocytes Absolute 0.95(L) 1.00 - 5.00 K/mcL LAB HEMETOLOGY METHOD 10/03/2024 11:02 AM [facility] LAB Monocytes Absolute 0.56 0.20 - 1.00 K/mcL LAB HEMETOLOGY METHOD 10/03/2024 11:02 AM [facility] LAB Eosinophils Absolute 0.13 0.00 - 0.50 K/mcL LAB HEMETOLOGY METHOD 10/03/2024 11:02 AM [facility] LAB Basophils Absolute 0.04 0.00 - 0.20 K/mcL LAB HEMETOLOGY METHOD 10/03/2024 11:02 AM [facility] LAB Immature Granulocytes Absolute 0.09(H) 0.00 - 0.03 K/mcL LAB HEMETOLOGY METHOD 10/03/2024 11:02 AM [facility] LAB Blood Venous blood specimen / Unknown Venipuncture / Unknown 10/03/2024 6:25 AM EST 10/03/2024 9:48 AM EST us Angelo Kasper MD LAB BLOOD ORDERABLES Final Res ult [facility] LAB [address] [place] [address], * (ABNORMAL) Basic metabolic panel (10/03/2024 6:25 AM EST) Sodium 128(L) 133 - 145 mmol/L LAB CHEMISTRY METHOD 10/03/2024 11:21 AM [facility] LAB Potassium 4.4 3.5 - 5.5 mmol/L LAB CHEMISTRY METHOD 10/03/2024 11:21 AM [facility] LAB Chloride 94(L) 96 - 110 mmol/L LAB CHEMISTRY METHOD 10/03/2024 11:21 AM [facility] LAB CO2 28 21 - 32 mmol/L LAB CHEMISTRY METHOD 10/03/2024 11:21 AM [facility] LAB Anion Gap 6 3 - 11 LAB CHEMISTRY METHOD 10/03/2024 11:21 AM [facility] LAB Glucose 66(L) 70 - 100 mg/dL LAB CHEMISTRY METHOD 10/03/2024 11:21 AM [facility] LAB BUN 13 5 - 25 mg/dL LAB CHEMISTRY METHOD 10/03/2024 11:21 AM [facility] LAB Creatinine 0.67 0.50 - 1.10 mg/dL LAB CHEMISTRY METHOD 10/03/2024 11:21 AM [facility] LAB eGFR 85 >=60 mL/min/1. 73m2 LAB CHEMISTRY METHOD 10/03/2024 11:21 AM [facility] LAB Comment:Calculation based on the??Chronic Kidney Disease Epidemiology Collaboration (CKD-EPI) equation refit??without adjustment for race. BUN/Creatinine Ratio 19.4 LAB CHEMISTRY METHOD 10/03/2024 11:21 AM [facility] LAB Calcium 8.9 8.5 - 10.5 mg/dL LAB CHEMISTRY METHOD 10/03/2024 11:21 AM [facility] LAB Blood Venous blood specimen / Unknown Venipuncture / Unknown 10/03/2024 6:25 AM EST 10/03/2024 9:48 AM EST us Angelo Kasper MD LAB BLOOD ORDERABLES Final Res ult [facility] ([email or web address] LAB [address] [place] [address], documented in this encounter Visit Diagnoses Diagnosis Encounter for other general examination documented in this encounter
--- OUTSIDE RECORDS SUMMARY | 2025-03-13 15:06 | XMS_ITS | Encounter Summary ---
Author Organization [facility] Address [address] [place] [address] Care Team Providers Care Hydraulic Blocker Name Role Phone Unavailable Primary Care Provider Unavailabl e Encounter Details Date Type Department Care Team (Late st Contact Info) Description 09/30/2024 Lab Requisition [facility] - Main Lab [address] [place] [address] Angelo Kasper MD [address] [place] [address] [phone] Encounter for other general examination Social History [...] LAB HEMETOLOGY METHOD 09/30/2024 1:38 PM EST [facility] LAB RBC 4.10 3.80 - 4.80 M/mcL LAB HEMETOLOGY METHOD 09/30/2024 1:38 PM EST [facility] Hemoglobin 12.4 11.5 - 16.0 g/dL LAB HEMETOLOGY METHOD 09/30/2024 1:38 PM EST [facility] LAB Hematocrit 38.8 35.0 - 47.0 % LAB HEMETOLOGY METHOD 09/30/2024 1:38 PM [facility] LAB MCV 95.1 79.0 - 98.0 FL LAB HEMETOLOGY METHOD 09/30/2024 1:38 PM [facility] LAB MCH 30.4 27.0 - 32.0 pcg LAB HEMETOLOGY METHOD 09/30/2024 1:38 PM EST [facility] LAB MCHC 32.0 32.0 - 37.0 g/dL LAB HEMETOLOGY METHOD 09/30/2024 1:38 PM [facility] LAB RDW 14.1 11.0 - 15.0 % LAB HEMETOLOGY METHOD 09/30/2024 1:38 PM [facility] LAB Platelets 279 130 - 400 K/mcL LAB HEMETOLOGY METHOD 09/30/2024 1:38 PM EST [facility] MPV 9.4 7.0 - 11.0 FL LAB HEMETOLOGY METHOD 09/30/2024 1:38 PM [facility] NRBC 0.0 <1.0 % LAB HEMETOLOGY METHOD 09/30/2024 1:38 PM [facility] LAB NRBC Absolute 0.00 <0.10 K/mcL LAB HEMETOLOGY METHOD 09/30/2024 1:38 PM [facility] Blood Venous blood specimen / Unknown Venipuncture / Unknown 09/30/2024 7:07 AM EST 09/30/2024 1:00 PM EST us Angelo Kasper MD LAB BLOOD ORDERABLES Final Res ult [facility] [address] [place] [address], * (ABNORMAL) Basic metabolic panel (09/30/2024 7:07 AM EST) Sodium 135 133 - 145 mmol/L LAB CHEMISTRY METHOD 09/30/2024 4:17 PM [facility] Potassium 4.6 3.5 - 5.5 mmol/L LAB CHEMISTRY METHOD 09/30/2024 4:17 PM [facility] Chloride 103 96 - 110 mmol/L LAB CHEMISTRY METHOD 09/30/2024 4:17 PM [facility] CO2 25 21 - 32 mmol/L LAB CHEMISTRY METHOD 09/30/2024 4:17 PM [facility] Anion Gap 7 3 - 11 LAB CHEMISTRY METHOD 09/30/2024 4:17 PM [facility] Glucose 60(L) 70 - 100 mg/dL LAB CHEMISTRY METHOD 09/30/2024 4:17 PM [facility] BUN 20 5 - 25 mg/dL LAB CHEMISTRY METHOD 09/30/2024 4:17 PM [facility] Creatinine 0.82 0.50 - 1.10 mg/dL LAB CHEMISTRY METHOD 09/30/2024 4:17 PM [facility] LAB eGFR 70 >=60 mL/min/1. 73m2 LAB CHEMISTRY METHOD 09/30/2024 4:17 PM [facility] Comment:Calculation based on the??Chronic Kidney Disease Epidemiology Collaboration (CKD-EPI) equation refit??without adjustment for race. BUN/Creatinine Ratio 24.4 LAB CHEMISTRY METHOD 09/30/2024 4:17 PM [facility] Calcium 9.8 8.5 - 10.5 mg/dL LAB CHEMISTRY METHOD 09/30/2024 4:17 PM [facility] Blood Venous blood specimen / Unknown Venipuncture / Unknown 09/30/2024 7:07 AM EST 09/30/2024 1:00 PM EST Angelo Kasper MD LAB BLOOD ORDERABLES Final Res ult [facility] LAB [address] [place] [address], documented in this encounter Visit Diagnoses Diagnosis Encounter for other general examination documented in this encounter
== END 2025-03-13 14:41 | disposition home or self-care (01) ==
PROVIDERS: PCP Internal Medicine; Visit Provider Anesthesiology
DX: M06.9 Rheumatoid arthritis, unspecified (principal); M47.816 Spondylosis without myelopathy or radiculopathy, lumbar region; M46.1 Sacroiliitis, not elsewhere classified; M53.3 Sacrococcygeal disorders, not elsewhere classified; G89.4 Chronic pain syndrome; S32.010A Wedge compression fracture of first lumbar vertebra, initial encounter for closed fracture
CPT/HCPCS: 99024

== ENCOUNTER → 2025-03-13 14:13 | Outpatient (BNVA) | payer MEDICARE, OTHER, SELFPAY | PROVIDERS: PCP Internal Medicine; Visit Provider Anesthesiology | DX: M06.9 Rheumatoid arthritis, unspecified (principal); M47.816 Spondylosis without myelopathy or radiculopathy, lumbar region; M46.1 Sacroiliitis, not elsewhere classified; M53.3 Sacrococcygeal disorders, not elsewhere classified; S32.010D Wedge compression fracture of first lumbar vertebra, subsequent encounter for fracture with routine healing; G89.4 Chronic pain syndrome | CPT/HCPCS: 99212 ==

== ENCOUNTER 2025-03-20 13:59 | Outpatient (AMB) | payer MEDICARE, OTHER, SELFPAY ==
--- NOTE | 2025-03-20 14:10 | A.OFFVIS_ITS ---
Vital Signs 03/20/25 14:14 Height 5 ft 7 in Weight 161 lb 2 oz BMI 25.2 BP 137/75 Blood Pressure Location Lt brachial Position Sitting Pulse 77 Pulse Source Pulse Oximeter Pulse Oximetry (%) 99 Oxygen Delivery Method Room Air Intake Visit Reasons: S/p B/l SI Joint PNS IMPLANT 03/07/25 (2nd Visit) Allergies alendronate sodium [From FOSAMAX] Allergy (Severe, Verified 03/20/25 14:15) ANAPHYLAXIS lisinopril [LISINOPRIL] Allergy (Severe, Verified 03/20/25 14:15) ANAPHYLAXIS, cough clarithromycin [CLARITHROMYCIN] Allergy (Intermediate, Verified 03/20/25 14:15) CONFUSION, sores on tongue, dry mouth simvastatin [SIMVASTATIN] Allergy (Mild, Verified 03/20/25 14:15) DRY THROAT, achy, confusion HPI Comments Details: Ellie Falcon) is in my office today after the implantation of Curonix PNS bilateral sacroiliac joint innervation. The dressing was removed and area was prepped with ChloraPrep. No redness no swelling no discharge no tenderness on palpation in the wounds. The hernan were removed. T the patient is working with the cure on X/freedom PNS and they are adjusting the stimulation. Hygiene limitations were explained to the patient. Next appointment as needed. Prior: Results of the bilateral sacroiliac joint injection. Excellent pain relief on bilateral SI joint diagnostic injection. Patient is 84 years old and suffers from the osteoporosis. Steroid injections are not ideal situation for this patient. Prior: She reports severe pain in the lower lumbar spine. She reports pain exace rbates with flexing forward and lifting things from the ground. On physical examination attention was attracted to signs of sacroiliitis. In the past she received from me diagnostic sacroiliac joint injection with 60% pain improvement. Now she reports severe pain 10/10 today, I feel like I have to perform again diagnostic sacroiliac joint injection. This patient was diagnose recently with L1 compression fracture. There is widespread diffuse osteopenia on her x-rays well. Therefore injection of the steroids will not be a good idea, however we can try peripheral nerve stimulation sprint versus peripheral nerve sprint stimulation cure on X. In regarding of her or diagnostic medial branch block she reported significant pain relieve on the left side immediately after the injection however she reported pain aggravation on the right side due to injection immediately after injection.? However on bilateral sacroiliac joint diagnostic injection on 12/13/2022 she reported 50-60% pain improvement after the injection.? The pain of this patient is most likely multifactorial.? She has significant rheumatoid arthritis which effects her shoulder joints her lumbar spine as well as her sacroiliac joints.? I offered her to perform bilateral sacroiliac joint injection therapeutic this time.? I will schedule this procedure without sedation.? She has an appointment with Dr. Guidry for evaluation of her shoulder pain.? Because of her severe osteopenia I would not recommend steroid injections for this patient. [facility] Medical History (Updated 03/07/25 @ 06:47 by Cynthia Holm RN) Pre-op chest exam Meniere disease Transient ischemic attack (TIA) Osteoarthritis of shoulders, bilateral Osteoarthritis of carpometacarpal (CMC) joint of right thumb Overweight (BMI 25.0-29.9) High cholesterol Thrush, oral Nondisplaced fracture of fifth metatarsal bone, left foot, subsequent encounter for fracture with nonunion Seropositive rheumatoid arthritis Fracture of 5th metatarsal Fracture of fifth metatarsal bone of right foot Polymyalgia rheumatica Anxiety and depression Lumbar degenerative disc disease Osteoporosis Gout Restless leg syndrome Hypergammaglobulinemia GERD (gastroesophageal reflux disease) Seizure disorder Hypertension Hypercholesterolemia Asthma Peripheral neuropathy Rheumatoid arthritis Surgical History History of surgery (02/07/25) History of bilateral knee replacement Corneal transplant status History of arthroplasty of right hip History of total abdominal hysterectomy History of corneal transplant H/O left knee surgery History of open reduction and internal fixation (ORIF) procedure History of cholecystectomy History of appendectomy Family History Father CVD (cardiovascular disease) Mother No problems noted. Social History (Updated 03/05/25 @ 11:20 by Maryann Hernandez RN) Household Members: Significant Other Household Members Other:: parter Housing: House Are you a primary healthcare business analyst to a significant other at home: No Do you presently have visiting nurse or other home services: No Alcohol intake: current Alcohol intake frequency: holidays/special occasions only Alcohol type: wine Comment: counts correct Patient Tobacco Use Status: Never used Tobacco e-Cigarette/Vaping Use: Never Used Second Hand Smoke Exposure: No Advance Directives Date on File: 07/11/23 service: No Current occupational status: retired Cognitive needs: Yes (walker) Hearing needs: Yes Vision needs: Yes Review of Systems Const All systems reviewed & are unremarkable except as noted in HPI and below Physical Exam Vital Signs: Last Vital Signs Pulse 77 03/20/25 14:14 BP 137/75 03/20/25 14:14 Pulse Ox 99 03/20/25 14:14 Oxygen Delivery Method Room Air 03/20/25 14:14 BMI result Body Mass Index 25.2 Const General: cooperative, comfortable and no acute distress Nutritional Appearance: well nourished Orientation/consciousness: patient oriented x3 Limitations: physical limitations Chest Chest palpation & inspection: normal inspection of the chest Resp Effort & Inspection: normal respiratory effort, able to speak in complete sentences, normal respiratory pattern, no audible wheezes, no cough, respiratory effort not decreased, no grunting and not labored Cardio Jugular venous distension: no JVD GI Inspection: Yes normal to inspection Back/Spine/Pelvis Other: Tenderness on palpation in paraspinal spinal region of lumbar spine.. Danial test is negative bilaterally however pelvis compression test, thigh thrust test, Gaenslen test positive bilaterally. Fourteen finger test is positive bilaterally more on the left. Neuro General: patient oriented x3 Assessment & Plan Assessment & Plan (1) Rheumatoid arthritis: Code(s): M06.9 - Rheumatoid arthritis, unspecified Category: Medical (2) Spondylosis of lumbar spine: Code(s): M47.816 - Spondylosis without myelopathy or radiculopathy, lumbar region Category: Medical (3) Sacroiliitis: Code(s): M46.1 - Sacroiliitis, not elsewhere classified Category: Medical (4) Pain of both sacroiliac joints: Code(s): M53.3 - Sacrococcygeal disorders, not elsewhere classified Category: Medical (5) Chronic pain syndrome: Code(s): G89.4 - Chronic pain syndrome Category: Medical (6) Sacroiliac joint dysfunction of both sides: Code(s): M53.3 - Sacrococcygeal disorders, not elsewhere classified Category: Medical (7) Compression fracture of L1 lumbar vertebra: Comment: indeterminate age Code(s): S32.010A - Wedge compression fracture of first lumbar vertebra, initial encounter for closed fracture Category: Medical Plan Medial branch block injection on 12/06/2022 resulted in profound pain relieve on the left side however significant aggravation of the pain on the right side. Sacroiliac joint injection resulted in 50-60% pain improvement on bilateral pain. Repeats diagnostic sacroiliac joint injection resulted in 60-70% pain improvement. Curonix PNS Trial of bilateral stimulation of sacroiliac joint innervation resulted in 75% pain improvement. The patient presents today after the implantation of the device. The hernan were removed.. Patient was counseled about mobilities and activities limitations. She was also explained about hygiene limitations. The patient expressed understanding. Cure on X r epresentative perform some adjustments on the patient's stimulator. This patient is suffering from seropositive rheumatoid arthritis and she is under care of Dr. Pinto receiving DMARDS. Coding Level of Care Code Est Pt Level 3 (04997) Diagnoses Rheumatoid arthritis M06.9 Spondylosis of lumbar spine M47.816 Sacroiliitis M46.1 Pain of both sacroiliac joints M53.3 Chronic pain syndrome G89.4 Sacroiliac joint dysfunction of both sides M53.3 Compression fracture of L1 lumbar vertebra S32.010A
[2025-03-20 14:14] VITALS: BP 137/75; PULSE 77; O2SAT 99; BMI 25.2
--- OUTSIDE RECORDS SUMMARY | 2025-03-20 14:44 | XMS_ITS | Encounter Summary ---
Author Organization [facility] Address [address] [place] [address] Care Team Providers Care Emergency Man Name Role Phone Unavailable Primary Care Provider Unavailabl e Encounter Details Date Type Department Care Team (Late st Contact Info) Description 10/07/2024 Lab Requisition [facility] Lab [address] [facility] [place] [address] Angelo Kasper MD [address] [place] [address] Encounter for other general examination Social History [...] ult [facility] [address] [place] [address], documented in this encounter Visit Diagnoses Diagnosis Encounter for other general examination documented in this encounter
--- OUTSIDE RECORDS SUMMARY | 2025-03-20 14:44 | XMS_ITS | Encounter Summary ---
Author Organization [facility] Address [address] [place] [address] Care Team Providers Care Funeral Prearrangement Counselor Name Role Phone Unavailable Primary Care Provider Unavailabl e Encounter Details Date Type Department Care Team (Late st Contact Info) Description 09/29/2024 Lab Requisition [facility] - Main Lab [address] [place] [address] Angelo Kasper MD [address] [place] [address] Encounter for other general examination Social History [...] LAB HEMETOLOGY METHOD 09/29/2024 11:08 AM EST [facility] RBC 4.10 3.80 - [...] Res ult [facility] [address] [place] [address], [place] [phone] * Magnesium (09/29/2024 7:35 AM EST) [facility] [address] Magnesium 2.1 1.9 - 2.6 mg/dL LAB CHEMISTRY METHOD 09/29/2024 11:09 AM EST [facility] LAB Blood Venous blood specimen / Unknown Venipuncture / Unknown 09/29/2024 7:35 AM EST 09/29/2024 10:30 AM EST us Angelo Kasper MD LAB BLOOD ORDERABLES Final Res ult [facility] [address] [place] [address], [place] [phone] * (ABNORMAL) Comprehensive metabolic panel (09/29/2024 7:35 AM EST) [facility] [address] Sodium 138 133 - 145 mmol/L LAB [...] Res ult [facility] [address] [place] [address], [place] [phone] documented in this encounter Visit Diagnoses Diagnosis Encounter for other general examination documented in this encounter
--- OUTSIDE RECORDS SUMMARY | 2025-03-20 14:44 | XMS_ITS | Encounter Summary ---
Author Organization [facility] Address [address] [place] [address] Care Team Providers Care Labor Relations Supervisor Name Role Phone Unavailable Primary Care Provider Unavailabl e Encounter Details Date Type Department Care Team (Late st Contact Info) Description 10/09/2024 Lab Requisition [facility] Lab [address] [facility] [place] [address] Angelo Kasper MD [address] [place] [phone] Encounter for other general examination Social History [...] LAB CHEMISTRY METHOD 10/09/2024 12:04 PM EST [facility] LAB Potassium 4.1 3.5 - 5.5 mmol/L LAB CHEMISTRY METHOD 10/09/2024 12:04 PM EST [facility] LAB Chloride 100 96 - 110 mmol/L LAB CHEMISTRY METHOD 10/09/2024 12:04 PM EST [facility] LAB CO2 26 21 - 32 mmol/L LAB CHEMISTRY METHOD 10/09/2024 12:04 PM EST [facility] LAB Anion Gap 6 3 - 11 LAB CHEMISTRY METHOD 10/09/2024 12:04 PM [facility] LAB Glucose 62(L) 70 - 100 mg/dL LAB CHEMISTRY METHOD 10/09/2024 12:04 PM [facility] BUN 12 5 - 25 mg/dL LAB CHEMISTRY METHOD 10/09/2024 12:04 PM [facility] Creatinine 0.71 0.50 - 1.10 mg/dL LAB CHEMISTRY METHOD 10/09/2024 12:04 PM [facility] LAB eGFR 83 >=60 mL/min/1. 73m2 LAB CHEMISTRY METHOD 10/09/2024 12:04 PM [facility] LAB Comment:Calculation based on the??Chronic Kidney Disease Epidemiology Collaboration (CKD-EPI) equation refit??without adjustment for race. BUN/Creatinine Ratio 16.9 LAB CHEMISTRY METHOD 10/09/2024 12:04 PM [facility] LAB Calcium 8.8 8.5 - 10.5 mg/dL LAB CHEMISTRY METHOD 10/09/2024 12:04 PM [facility] Blood Venous blood specimen / Unknown Venipuncture / Unknown 10/09/2024 7:03 AM EST 10/09/2024 10:19 AM EST us Angelo Kasper MD LAB BLOOD ORDERABLES Final Res ult [facility] LAB [address] [place] [address], [place] [phone] documented in this encounter Visit Diagnoses Diagnosis Encounter for other general examination documented in this encounter
--- OUTSIDE RECORDS SUMMARY | 2025-03-20 14:44 | XMS_ITS | Clinical Summary ---
Author Organization [facility] Address [address] [place] [address] Care Team Providers Care Loading Dock Hand Name Role Phone Unavailable Primary Care [...]
--- OUTSIDE RECORDS SUMMARY | 2025-03-20 14:44 | XMS_ITS | Encounter Summary ---
Author Organization [facility] Address [address] [place] [address] Care Team Providers Care Data Mining Analyst Name Role Phone Unavailable Primary Care Provider Unavailabl e Encounter Details Date Type Department Care Team (Late st Contact Info) Description 10/11/2024 Lab Requisition [facility] Lab [address] [facility] [place] [address] Angelo Kasper MD [address] [place] [address] Encounter for other general examination Social History [...] LAB CHEMISTRY METHOD 10/11/2024 1:13 PM EST [facility] LAB Potassium 4.0 3.5 - 5.5 mmol/L LAB CHEMISTRY METHOD 10/11/2024 1:13 PM EST [facility] Chloride 102 96 - 110 mmol/L LAB CHEMISTRY METHOD 10/11/2024 1:13 PM EST [facility] LAB CO2 23 21 - 32 mmol/L LAB CHEMISTRY METHOD 10/11/2024 1:13 PM EST [facility] LAB Anion Gap 9 3 - 11 LAB CHEMISTRY METHOD 10/11/2024 1:13 PM [facility] LAB Glucose 80 70 - 100 mg/dL LAB CHEMISTRY METHOD 10/11/2024 1:13 PM [facility] LAB BUN 25 5 - 25 mg/dL LAB CHEMISTRY METHOD 10/11/2024 1:13 PM [facility] LAB Creatinine 0.99 0.50 - 1.10 mg/dL LAB CHEMISTRY METHOD 10/11/2024 1:13 PM [facility] LAB eGFR 56(L) >=60 mL/min/1. 73m2 LAB CHEMISTRY METHOD 10/11/2024 1:13 PM [facility] LAB Comment:Calculation based on the??Chronic Kidney Disease Epidemiology Collaboration (CKD-EPI) equation refit??without adjustment for race. BUN/Creatinine Ratio 25.3 LAB CHEMISTRY METHOD 10/11/2024 1:13 PM [facility] LAB Calcium 8.7 8.5 - 10.5 mg/dL LAB CHEMISTRY METHOD 10/11/2024 1:13 PM [facility] LAB Blood Venous blood specimen / Unknown Venipuncture / Unknown 10/11/2024 7:25 AM EST 10/11/2024 11:51 AM EST us Angelo Kasper MD LAB BLOOD ORDERABLES Final Res ult [facility] LAB [address] [place] [address], documented in this encounter Visit Diagnoses Diagnosis Encounter for other general examination documented in this encounter
--- OUTSIDE RECORDS SUMMARY | 2025-03-20 14:44 | XMS_ITS | Encounter Summary ---
Author Organization [facility] Address [address] [place] [address] Care Team Providers Care Software Firmware Engineer Name Role Phone Unavailable Primary Care Provider Unavailabl e Encounter Details Date Type Department Care Team (Late st Contact Info) Description 09/30/2024 Lab Requisition [facility] - Main Lab [address] [place] [address] Angelo Kasper MD [address] [place] [address] [phone] Encounter for other general examination Social History [...] LAB HEMETOLOGY METHOD 09/30/2024 1:38 PM EST [facility] LAB RBC 4.10 3.80 - 4.80 M/mcL LAB HEMETOLOGY METHOD 09/30/2024 1:38 PM EST [facility] LAB Hemoglobin 12.4 11.5 - 16.0 g/dL LAB HEMETOLOGY METHOD 09/30/2024 1:38 PM EST [facility] LAB Hematocrit 38.8 35.0 - 47.0 % LAB HEMETOLOGY METHOD 09/30/2024 1:38 PM [facility] LAB MCV 95.1 79.0 - 98.0 FL LAB HEMETOLOGY METHOD 09/30/2024 1:38 PM [facility] LAB MCH 30.4 27.0 - 32.0 pcg LAB HEMETOLOGY METHOD 09/30/2024 1:38 PM EST [facility] LAB MCHC 32.0 32.0 - 37.0 g/dL LAB HEMETOLOGY METHOD 09/30/2024 1:38 PM [facility] LAB RDW 14.1 11.0 - 15.0 % LAB HEMETOLOGY METHOD 09/30/2024 1:38 PM [facility] LAB Platelets 279 130 - 400 K/mcL LAB HEMETOLOGY METHOD 09/30/2024 1:38 PM EST [facility] LAB MPV 9.4 7.0 - 11.0 FL LAB HEMETOLOGY METHOD 09/30/2024 1:38 PM [facility] LAB NRBC 0.0 <1.0 % LAB HEMETOLOGY METHOD 09/30/2024 1:38 PM [facility] LAB NRBC Absolute 0.00 <0.10 K/mcL LAB HEMETOLOGY METHOD 09/30/2024 1:38 PM [facility] LAB Blood Venous blood specimen / Unknown Venipuncture / Unknown 09/30/2024 7:07 AM EST 09/30/2024 1:00 PM EST us Angelo Kasper MD LAB BLOOD ORDERABLES Final Res ult [facility] [address] [place] [address], * (ABNORMAL) Basic metabolic panel (09/30/2024 7:07 AM EST) Sodium 135 133 - 145 mmol/L LAB CHEMISTRY METHOD 09/30/2024 4:17 PM [facility] Potassium 4.6 3.5 - 5.5 mmol/L LAB CHEMISTRY METHOD 09/30/2024 4:17 PM [facility] Chloride 103 96 - 110 mmol/L LAB CHEMISTRY METHOD 09/30/2024 4:17 PM [facility] CO2 25 21 - 32 mmol/L LAB CHEMISTRY METHOD 09/30/2024 4:17 PM [facility] Anion Gap 7 3 - 11 LAB CHEMISTRY METHOD 09/30/2024 4:17 PM [facility] LAB Glucose 60(L) 70 - 100 mg/dL LAB CHEMISTRY METHOD 09/30/2024 4:17 PM [facility] BUN 20 5 - 25 mg/dL LAB CHEMISTRY METHOD 09/30/2024 4:17 PM [facility] Creatinine 0.82 0.50 - 1.10 mg/dL LAB CHEMISTRY METHOD 09/30/2024 4:17 PM [facility] LAB eGFR 70 >=60 mL/min/1. 73m2 LAB CHEMISTRY METHOD 09/30/2024 4:17 PM [facility] LAB Comment:Calculation based on the??Chronic Kidney Disease Epidemiology Collaboration (CKD-EPI) equation refit??without adjustment for race. BUN/Creatinine Ratio 24.4 LAB CHEMISTRY METHOD 09/30/2024 4:17 PM [facility] Calcium 9.8 8.5 - 10.5 mg/dL LAB CHEMISTRY METHOD 09/30/2024 4:17 PM [facility] Blood Venous blood specimen / Unknown Venipuncture / Unknown 09/30/2024 7:07 AM EST 09/30/2024 1:00 PM EST Angelo Kasper MD LAB BLOOD ORDERABLES Final Res ult [facility] [address] [place] [address], documented in this encounter Visit Diagnoses Diagnosis Encounter for other general examination documented in this encounter
--- OUTSIDE RECORDS SUMMARY | 2025-03-20 14:44 | XMS_ITS | Encounter Summary ---
Author Organization [facility] Address [address] [place] [address] Care Team Providers Care Diplomatic Interpreter Name Role Phone Unavailable Primary Care Provider Unavailabl e Encounter Details Date Type Department Care Team (Late st Contact Info) Description 10/04/2024 Lab Requisition [facility] - Main Lab [address] [place] [address] Angelo Kasper MD [address] [place] [phone] Encounter for other general examination Social History [...] 10:45 AM EST [facility] Blood Venous blood specimen / Unknown Venipuncture / Unknown 10/04/2024 5:56 AM EST 10/04/2024 9:06 AM EST Angelo Kasper MD LAB BLOOD ORDERABLES Final Res ult [facility] LAB [address] [place] [address], [place] [phone] documented in this encounter Visit Diagnoses Diagnosis Encounter for other general examination documented in this encounter
--- OUTSIDE RECORDS SUMMARY | 2025-03-20 14:44 | XMS_ITS | Clinical Summary ---
Author Organization [address] [facility] Address [address] [place] [address] Phone Care Team Providers Care Design Transferrer Name Role Phone Unavailable Primary Care Provider [...]
--- OUTSIDE RECORDS SUMMARY | 2025-03-20 14:44 | XMS_ITS | Encounter Summary ---
Author Organization [facility] Address [address] [place] [address] Care Team Providers Care Group Cio Name Role Phone Unavailable Primary Care Provider Unavailabl e Encounter Details Date Type Department Care Team (Late st Contact Info) Description 10/06/2024 Lab Requisition [facility] - Main Lab [address] [facility] [place] [address] Angelo Kasper MD [address] [place] [phone] Encounter for other general examination Social History [...] LAB CHEMISTRY METHOD 10/06/2024 9:33 AM EST [facility] ([facility]) [facility] LAB Blood Venous blood specimen [...] ORDERABLES Final Res ult Performing Organization Address City/[facility]/ZIP Co de Phone Number [facility] LAB [address] [place] [address], [place] [phone] * Thyroid stimulating hormone (10/06/2024 5:48 AM EST) [facility] TSH 2.14 0.40 - 4.00 mcIU/mL LAB CHEMISTRY METHOD 10/06/2024 8:28 AM EST [facility] LAB Blood Venous blood specimen / Unknown Venipuncture / Unknown 10/06/2024 5:48 AM EST 10/06/2024 6:48 AM EST us Angelo Kasper MD LAB BLOOD ORDERABLES Final Res ult Performing Organization Address [facility]/ZIP Co de Phone Number [facility] LAB [address] [place] [address], [place] [phone] * (ABNORMAL) Basic metabolic panel (10/06/2024 5:48 AM EST) [facility] Sodium 130(L) 133 - 145 mmol/L LAB CHEMISTRY METHOD 10/06/2024 7:23 AM EST [facility] LAB Potassium 4.0 3.5 - 5.5 mmol/L LAB CHEMISTRY METHOD 10/06/2024 7:23 AM EST [facility] LAB Chloride 98 96 - 110 mmol/L LAB CHEMISTRY METHOD 10/06/2024 7:23 AM EST [facility] LAB CO2 26 21 - 32 mmol/L LAB CHEMISTRY METHOD 10/06/2024 7:23 AM EST [facility] LAB Anion Gap 6 3 - 11 LAB CHEMISTRY METHOD 10/06/2024 7:23 AM [facility] LAB Glucose 76 70 - 100 mg/dL LAB CHEMISTRY METHOD 10/06/2024 7:23 AM [facility] LAB BUN 9 5 - 25 mg/dL LAB CHEMISTRY METHOD 10/06/2024 7:23 AM [facility] LAB Creatinine 0.62 0.50 - 1.10 mg/dL LAB CHEMISTRY METHOD 10/06/2024 7:23 AM [facility] LAB eGFR 87 >=60 mL/min/1. 73m2 LAB CHEMISTRY METHOD 10/06/2024 7:23 AM [facility] LAB Comment:Calculation based on the??Chronic Kidney Disease Epidemiology Collaboration (CKD-EPI) equation refit??without adjustment for race. BUN/Creatinine Ratio 14.5 LAB CHEMISTRY METHOD 10/06/2024 7:23 AM [facility] LAB Calcium 8.4(L) 8.5 - 10.5 mg/dL LAB CHEMISTRY METHOD 10/06/2024 7:23 AM [facility] LAB Blood Venous blood specimen / Unknown Venipuncture / Unknown 10/06/2024 5:48 AM EST 10/06/2024 6:48 AM EST us Angelo Kasper MD LAB BLOOD ORDERABLES Final Res ult [facility] LAB [address] [place] [address], documented in this encounter Visit Diagnoses Diagnosis Encounter for other general examination documented in this encounter
--- OUTSIDE RECORDS SUMMARY | 2025-03-20 14:44 | XMS_ITS | Encounter Summary ---
Author Organization [facility] Address [address] [place] [address] Care Team Providers Care Plumber Name Role Phone Unavailable Primary Care Provider Unavailabl e Encounter Details Date Type Department Care Team (Late st Contact Info) Description 10/03/2024 Lab Requisition [facility] - Main Lab [address] [place] [address] Angelo Kasper MD [address] [place] [phone] Encounter for other general examination Social History [...] AM EST) WBC 4.2(L) 4.8 - 10.8 K/[facility] LAB HEMETOLOGY METHOD 10/03/2024 11:02 AM EST [facility] LAB RBC 4.00 3.80 - 4.80 M/[facility] LAB HEMETOLOGY METHOD 10/03/2024 11:02 AM [facility] LAB Hemoglobin 12.0 11.5 - 16.0 g/dL LAB HEMETOLOGY METHOD 10/03/2024 11:02 AM [facility] LAB Hematocrit 37.5 35.0 - 47.0 % LAB HEMETOLOGY METHOD 10/03/2024 11:02 AM [facility] LAB MCV 94.5 79.0 - 98.0 FL LAB HEMETOLOGY METHOD 10/03/2024 11:02 AM [facility] LAB MCH 30.2 27.0 - 32.0 pcg LAB HEMETOLOGY METHOD 10/03/2024 11:02 AM [facility] LAB MCHC 32.0 32.0 - 37.0 g/dL LAB HEMETOLOGY METHOD 10/03/2024 11:02 AM [facility] LAB RDW 13.8 11.0 - 15.0 % LAB HEMETOLOGY METHOD 10/03/2024 11:02 AM [facility] LAB Platelets 224 130 - 400 K/mcL LAB HEMETOLOGY METHOD 10/03/2024 11:02 AM [facility] LAB MPV 9.6 7.0 - 11.0 FL LAB HEMETOLOGY METHOD 10/03/2024 11:02 AM [facility] LAB NRBC 0.0 <1.0 % LAB HEMETOLOGY METHOD 10/03/2024 11:02 AM [facility] LAB NRBC Absolute 0.00 <0.10 K/mcL LAB HEMETOLOGY METHOD 10/03/2024 11:02 AM [facility] LAB Neutrophils Relative 57.4 % LAB HEMETOLOGY METHOD 10/03/2024 11:02 AM [facility] LAB Lymphocytes Relative 22.8 % LAB HEMETOLOGY METHOD 10/03/2024 11:02 AM [facility] LAB Monocytes Relative 13.5 % LAB HEMETOLOGY METHOD 10/03/2024 11:02 AM [facility] LAB Eosinophils Relative 3.1 % LAB HEMETOLOGY METHOD 10/03/2024 11:02 AM [facility] LAB Basophils Relative 1.0 % LAB HEMETOLOGY METHOD 10/03/2024 11:02 AM [facility] LAB Immature Granulocytes Relative 2.2 % LAB HEMETOLOGY METHOD 10/03/2024 11:02 AM [facility] LAB Neutrophils Absolute 2.39 1.50 - 7.00 K/mcL LAB HEMETOLOGY METHOD 10/03/2024 11:02 AM [facility] LAB Lymphocytes Absolute 0.95(L) 1.00 - 5.00 K/mcL LAB HEMETOLOGY METHOD 10/03/2024 11:02 AM [facility] LAB Monocytes Absolute 0.56 0.20 - 1.00 K/mcL LAB HEMETOLOGY METHOD 10/03/2024 11:02 AM [facility] LAB Eosinophils Absolute 0.13 0.00 - 0.50 K/mcL LAB HEMETOLOGY METHOD 10/03/2024 11:02 AM [facility] LAB Basophils Absolute 0.04 0.00 - 0.20 K/mcL LAB HEMETOLOGY METHOD 10/03/2024 11:02 AM [facility] LAB Immature Granulocytes Absolute 0.09(H) 0.00 - 0.03 K/mcL LAB HEMETOLOGY METHOD 10/03/2024 11:02 AM [facility] LAB Blood Venous blood specimen / Unknown Venipuncture / Unknown 10/03/2024 6:25 AM EST 10/03/2024 9:48 AM EST us Angelo Kasper MD LAB BLOOD ORDERABLES Final Res ult [facility] LAB [address] [place] [address], * (ABNORMAL) Basic metabolic panel (10/03/2024 6:25 AM EST) Sodium 128(L) 133 - 145 mmol/L LAB CHEMISTRY METHOD 10/03/2024 11:21 AM [facility] LAB Potassium 4.4 3.5 - 5.5 mmol/L LAB CHEMISTRY METHOD 10/03/2024 11:21 AM [facility] LAB Chloride 94(L) 96 - 110 mmol/L LAB CHEMISTRY METHOD 10/03/2024 11:21 AM [facility] LAB CO2 28 21 - 32 mmol/L LAB CHEMISTRY METHOD 10/03/2024 11:21 AM [facility] LAB Anion Gap 6 3 - 11 LAB CHEMISTRY METHOD 10/03/2024 11:21 AM [facility] LAB Glucose 66(L) 70 - 100 mg/dL LAB CHEMISTRY METHOD 10/03/2024 11:21 AM [facility] LAB BUN 13 5 - 25 mg/dL LAB CHEMISTRY METHOD 10/03/2024 11:21 AM [facility] LAB Creatinine 0.67 0.50 - 1.10 mg/dL LAB CHEMISTRY METHOD 10/03/2024 11:21 AM [facility] LAB eGFR 85 >=60 mL/min/1. 73m2 LAB CHEMISTRY METHOD 10/03/2024 11:21 AM [facility] LAB Comment:Calculation based on the??Chronic Kidney Disease Epidemiology Collaboration (CKD-EPI) equation refit??without adjustment for race. BUN/Creatinine Ratio 19.4 LAB CHEMISTRY METHOD 10/03/2024 11:21 AM [facility] LAB Calcium 8.9 8.5 - 10.5 mg/dL LAB CHEMISTRY METHOD 10/03/2024 11:21 AM [facility] LAB Blood Venous blood specimen / Unknown Venipuncture / Unknown 10/03/2024 6:25 AM EST 10/03/2024 9:48 AM EST us Angelo Kasper MD LAB BLOOD ORDERABLES Final Res ult [facility] ([facility]) [facility] LAB [address] [place] [address], documented in this encounter Visit Diagnoses Diagnosis Encounter for other general examination documented in this encounter
--- OUTSIDE RECORDS SUMMARY | 2025-03-20 14:44 | XMS_ITS | Encounter Summary ---
Author Organization [email or web address] [facility] Address [address] [place] [address] Care Team Providers Care Box Cutter Name Role Phone Unavailable Primary Care Provider Unavailabl e Encounter Details Date Type Department Care Team (Late st Contact Info) Description 10/05/2024 Lab Requisition [facility] - Main Lab [address] [facility] [place] [address] Angelo Kasper MD [address] [place] [phone] Encounter for other general examination Social History [...] 11:02 AM EST [facility] LAB CO2 27 21 - 32 mmol/L LAB CHEMISTRY METHOD 10/05/2024 11:02 AM EST [facility] LAB Anion Gap 6 3 - 11 LAB CHEMISTRY METHOD 10/05/2024 11:02 AM [facility] LAB Glucose 70 70 - 100 mg/dL LAB CHEMISTRY METHOD 10/05/2024 11:02 AM [facility] LAB BUN 11 5 - 25 mg/dL LAB CHEMISTRY METHOD 10/05/2024 11:02 AM [facility] LAB Creatinine 0.71 0.50 - 1.10 mg/dL LAB CHEMISTRY METHOD 10/05/2024 11:02 AM [facility] LAB eGFR 83 >=60 mL/min/1. 73m2 LAB CHEMISTRY METHOD 10/05/2024 11:02 AM [facility] LAB Comment:Calculation based on the??Chronic Kidney Disease Epidemiology Collaboration (CKD-EPI) equation refit??without adjustment for race. BUN/Creatinine Ratio 15.5 LAB CHEMISTRY METHOD 10/05/2024 11:02 AM [facility] LAB Calcium 8.6 8.5 - 10.5 mg/dL LAB CHEMISTRY METHOD 10/05/2024 11:02 AM [facility] LAB Blood Venous blood specimen / Unknown Venipuncture / Unknown 10/05/2024 6:03 AM EST 10/05/2024 9:38 AM EST us Angelo Kasper MD LAB BLOOD ORDERABLES Final Res ult [facility] LAB [address] [place] [address], [place] [phone] documented in this encounter Visit Diagnoses Diagnosis Encounter for other general examination documented in this encounter
--- OUTSIDE RECORDS SUMMARY | 2025-03-20 14:44 | XMS_ITS | Encounter Summary ---
Author Organization [facility] Address [address] [place] [address] Care Team Providers Care Clerk Rating Name Role Phone Unavailable Primary Care Provider Unavailabl e Encounter Details Date Type Department Care Team (Late st Contact Info) Description 10/04/2024 Lab Requisition [facility] - Main Lab [address] [facility] [place] [address] Angelo Kasper MD [address] [place] [phone] Encounter for other general examination Social History [...] microscopic and culture (10/04/2024 4:00 AM EST) [facility] Specific [place] Urine 1.018 1.003 - 1.030 LAB URINALYSIS [...] ult [facility] LAB [address] [place] [address], [place] [phone] * [place] urine culture tube (10/04/2024 4:00 AM EST) Extra Tube Hold for add-ons. 10/04/2024 11:01 AM EST [facility] LAB Comment:Auto resulted. Urine Urine specimen obtained by clean catch procedure / Unknown Non-blood Collection / Unknown 10/04/2024 4:00 AM EST 10/04/2024 9:37 AM EST us Angelo Kasper MD LAB URINE ORDERABLES Final Res ult [facility] LAB [address] [place] [address], [place] [phone] * Sodium, urine, random (10/04/2024 4:00 AM EST) Sodium, Ur 87 mmol/L LAB CHEMISTRY METHOD 10/04/2024 10:46 AM EST [facility] LAB Urine Urine specimen obtained by clean catch procedure / Unknown Non-blood Collection / Unknown 10/04/2024 4:00 AM EST 10/04/2024 9:37 AM EST us Angelo Kasper MD LAB URINE ORDERABLES Final Res ult [facility] LAB [address] [place] [address], [place] [phone] * Osmolality, urine (10/04/2024 4:00 AM EST) Osmolality, Urine 475 300 - 1,300 mOsm/kg LAB CHEMISTRY METHOD 10/04/2024 10:45 AM EST [facility] LAB Urine Urine specimen obtained by clean catch procedure / Unknown Non-blood Collection / Unknown 10/04/2024 4:00 AM EST 10/04/2024 9:37 AM EST us Angelo Kasper MD LAB URINE ORDERABLES Final Res ult [facility] ([facility]) [facility] LAB [address] [place] [address], documented in this encounter Visit Diagnoses Diagnosis Encounter for other general examination documented in this encounter
== END 2025-03-20 14:39 | disposition home or self-care (01) ==
LOC: HO.PMC 14:00
PROVIDERS: PCP Internal Medicine; Visit Provider Anesthesiology
DX: M06.9 Rheumatoid arthritis, unspecified (principal); M47.816 Spondylosis without myelopathy or radiculopathy, lumbar region; M46.1 Sacroiliitis, not elsewhere classified; M53.3 Sacrococcygeal disorders, not elsewhere classified; G89.4 Chronic pain syndrome; S32.010A Wedge compression fracture of first lumbar vertebra, initial encounter for closed fracture
CPT/HCPCS: 99213

== ENCOUNTER → 2025-03-20 13:59 | Outpatient (BNVA) | payer MEDICARE, OTHER, SELFPAY | PROVIDERS: PCP Internal Medicine; Visit Provider Anesthesiology | DX: M06.9 Rheumatoid arthritis, unspecified (principal); S32.010D Wedge compression fracture of first lumbar vertebra, subsequent encounter for fracture with routine healing; M47.816 Spondylosis without myelopathy or radiculopathy, lumbar region; M46.1 Sacroiliitis, not elsewhere classified; M53.3 Sacrococcygeal disorders, not elsewhere classified; G89.4 Chronic pain syndrome | CPT/HCPCS: 99212 ==

== ENCOUNTER 2025-04-09 12:20 | Outpatient (AMB) | payer MEDICARE, OTHER, SELFPAY ==
[2025-04-09 12:31] VITALS: BP 130/76; PULSE 72; O2SAT 97; BMI 23.7
--- NOTE | 2025-04-09 12:31 | A.OFFPC_ITS ---
Vital Signs 04/09/25 12:31 Height 5 ft 7 in Weight 151 lb 6 oz BMI 23.7 BP 130/76 Blood Pressure Location Lt brachial Position Sitting Pulse 72 Pulse Source Pulse Oximeter Pulse Oximetry (%) 97 Oxygen Delivery Method Room Air Intake Visit Reasons: Fracture lumbar compression Pharmaceutical Scientist Required: No Accompanied by: Self / Same As Patient Allergies alendronate sodium [From FOSAMAX] Allergy (Severe, Verified 04/09/25 12:32) ANAPHYLAXIS lisinopril [LISINOPRIL] Allergy (Severe, Verified 04/09/25 12:32) ANAPHYLAXIS, cough clarithromycin [CLARITHROMYCIN] Allergy (Intermediate, Verified 04/09/25 12:32) CONFUSION, sores on tongue, dry mouth simvastatin [SIMVASTATIN] Allergy (Mild, Verified 04/09/25 12:32) DRY THROAT, achy, confusion Tobacco use date assessed: 04/09/25 Fall risk assessment: No Falls in past year Last assessed Fall Risk: 04/09/25 Dental Screening Dental Screen Date: 04/09/25 Did you have a dental visit in the last 12 months?: No Did you have a dental problem in the last 6 months where you did not have access to dental care?: No Was dental information given to patient?: No HPI Fracture lumbar compression HPI Details Pain procedures done for the lumbar fracture. concern on mass of the mass on the upper back - lipoma. bilateral eye prolbem [facility] Medical History (Updated 04/09/25 @ 12:53 by Renetta Vides MD) Pre-op chest exam Meniere disease Transient ischemic attack (TIA) Osteoarthritis of shoulders, bilateral Osteoarthritis of carpometacarpal (CMC) joint of right thumb Overweight (BMI 25.0-29.9) High cholesterol Thrush, oral Nondisplaced fracture of fifth metatarsal bone, left foot, subsequent encounter for fracture with nonunion Seropositive rheumatoid arthritis Fracture of 5th metatarsal Fracture of fifth metatarsal bone of right foot Polymyalgia rheumatica Anxiety and depression Lumbar degenerative disc disease Osteoporosis Gout Restless leg syndrome Hypergammaglobulinemia GERD (gastroesophageal reflux disease) Seizure disorder Hypertension Hypercholesterolemia Asthma Peripheral neuropathy Rheumatoid arthritis Surgical History History of surgery (02/07/25) History of bilateral knee replacement Corneal transplant status History of arthroplasty of right hip History of total abdominal hysterectomy History of corneal transplant H/O left knee surgery History of open reduction and internal fixation (ORIF) procedure History of cholecystectomy History of appendectomy Family History Father CVD (cardiovascular disease) Mother No problems noted. Social History Household Members: Significant Other Household Members Other:: parter Housing: House Are you a primary manager wound care to a significant other at home: No Do you presently have visiting nurse or other home services: No Alcohol intake: current Alcohol intake frequency: holidays/special occasions only Alcohol type: wine Comment: counts correct Patient Tobacco Use Status: Never used Tobacco e-Cigarette/Vaping Use: Never Used Second Hand Smoke Exposure: No Advance Directives Date on File: 07/11/23 service: No Current occupational status: retired Cognitive needs: Yes (walker) Hearing needs: Yes Vision needs: Yes Questionnaire PHQ-9 Over the last 2 weeks, how often have you been bothered by any of the following problems? 1. Little interest or pleasure in doing things: several days 2. Feeling down, depressed, or hopeless: several days 3. Trouble falling or staying asleep, or sleeping too much: not at all 4. Feeling tired or having little energy: more than half the days 5. Poor appetite or overeating: not at all 6. Feeling bad about yourself - or that you are a failure or have let yourself or your family down: not at all 7. Trouble concentrating on things, such as reading the newspaper or watching television: several days 8. Moving or speaking so slowly that other people could have noticed. Or the opposite - being so fidgety or restless that you have been moving around a lot more than usual: not at all 9. Thoughts that you would be better off or of hurting yourself in some way: several days Total score: 6 Source: Developed by Drs. Montana Salmon, Annalise Muse, Chris Montana and colleagues, with an educational shiela from [employer]. Thrive Questionnaire Date Thrive assessed: 04/09/25 I am a: Patient What is your living situation today?: I have a steady place to live Within the past 12 months, did the food you bought not last and you didn't have the money to get more?: Never true Within the past 12 months, did you worry whether your food would run out before you got money to buy more?: Never true Do you have trouble paying for medicines?: No Do you have trouble getting transportation to medical appointments?: No Do you have trouble paying your heating and electricity bill?: No Do you have trouble taking care of your child, family member or friend?: No Do you have trouble with day-to-day activities such as bathing, preparing meals, shopping, managing finances, etc.?: No Are you currently unemployed and looking for a job?: No Are you interested in more education?: No Please select the resources that you would like help with: None Currently or been in a relationship where the following occur: No concerns reported THRIVE Score: 0 AUDIT C Alcohol Use Questionnaire (AUDIT-C) 1. How often do you have a drink containing alcohol?: Monthly or less 2. How many drinks containing alcohol do you have on a typical day when you are drinking?: 1 or 2 3. How often do you have six or more drinks on one occasion?: Never Total Score: 1 LIYA-7 AMB Questionnaire LIYA-7 Date LIYA - 7 assessed: 04/09/25 Feeling nervous, anxious, or on edge: 2 = More than half the days Not being able to stop or control worryin = Several days Worrying too much about different things: 1 = Several days Trouble relaxin = Several days Being so restless that it is hard to sit still: 0 = Not at all Becoming easily annoyed or irritable: 0 = Not at all Feeling afraid as if something awful might happen: 0 = Not at all Total LIYA-7 score (0-4 normal; 5-9 mild; 10-14 moderate; 15-21 severe): 5 Source: Developed by Drs. Montana Salmon, Annalise Muse, Chris Montana and colleagues, with an educational shiela from [employer]. Physical exam (Primary Care) Vital Signs: Last Vital Signs Pulse 72 04/09/25 12:31 BP 130/76 04/09/25 12:31 Pulse Ox 97 04/09/25 12:31 Oxygen Delivery Method Room Air 04/09/25 12:31 BMI result Body Mass Index 23.7 Tobacco/Smoking Status: Tobacco use Status Tobacco use date assessed 04/09/25 04/09/25 12:40 Patient Tobacco Use Status Never used Tobacco 04/09/25 12:40 e-Cigarette/Vaping Use Never Used 04/09/25 12:40 PHQ-9: PHQ-9 Score PHQ-9: Total score 6 04/09/25 12:40 Thrive Assessment: Date of Thrive Assessment Date Thrive assessed 04/09/25 04/09/25 12:40 Currently or been in a relationship where the following occur: No concerns reported Const General: alert; No acute distress Eyes Conjunctivae: conjunctivae normal Resp Auscultation: clear to auscultation bilaterally Cardio Rate: regular rate Rhythm: regular rhythm GI Inspection: Yes normal to inspection Extrem General: Yes normal to inspection and No edema Coding Level of Care Code Est Pt Level 4 (38653) Complex EM visit Add On G2211 Diagnoses Compression fracture of L1 lumbar vertebra S32.010A Generalized anxiety disorder F41.1 Essential hypertension I10 Hypertension type: essential hypertension Hypercholesterolemia E78.00 Mild intermittent asthma without complication J45.20 Asthma complication type: uncomplicated Asthma persistence: intermittent Asthma severity: mild Gastroesophageal reflux disease without esophagitis K21.9 Esophagitis presence: without esophagitis Age-related osteoporosis without current pathological fracture M81.0 Osteoporosis type: age-related Presence of current pathological fracture: without current pathological fracture Seropositive rheumatoid arthritis M05.9 Allergic conjunctivitis H10.10 Vision changes H53.9 Lipoma of back D17.1 Aortic stenosis, mild I35.0 Assessment & Plan Assessment & Plan (1) Compression fracture of L1 lumbar vertebra: Comment: indeterminate age Code(s): S32.010A - Wedge compression fracture of first lumbar vertebra, initial encounter for closed fracture Category: Medical Plan: Patient is seeing pain management and has had procedures done (2) Generalized anxiety disorder: Comment: Declined referral for counseling May 2023 Code(s): F41.1 - Generalized anxiety disorder Category: Medical Plan: Stable (3) Hypertension: Code(s): I10 - Essential (primary) hypertension Category: Medical Qualifiers: Hypertension type: essential hypertension Qualified Code(s): I10 - Essential (primary) hypertension Plan: Continue with blood pressure medication. Decrease salt intake and exercise takes amlodipine 5 mg once a day metoprolol 25 mg once a day (4) Hypercholesterolemia: Code(s): E78.00 - Pure hypercholesterolemia, unspecified Category: Medical Plan: Avoid fried foods, chicken skin, eggs, butter margarine, pastries and meat. Be it pork or beef they have a lot of cholesterol on atorvastatin 40 mg once a day patient needs blood work (5) Asthma: Code(s): J45.909 - Unspecified asthma, uncomplicated Category: Medical Qualifiers: Asthma complication type: uncomplicated Asthma persistence: intermittent Asthma severity: mild Qualified Code(s): J45.20 - Mild intermittent asthma, uncomplicated Plan: On montelukast stable (6) GERD (gastroesophageal reflux disease): Code(s): K21.9 - Gastro-esophageal reflux disease without esophagitis Category: Medical Qualifiers: Esophagitis presence: without esophagitis Qualified Code(s): K21.9 - Gastro-esophageal reflux disease without esophagitis Plan: Avoid the foods that causes that usually spicy foods, tomato products, juices, coffee, soda and foods that your sensitive to. After eating do not lie down, allow 3-4 hours before in lie down. And keep the head of bed above 30 degrees to avoid the acid from going up. (7) Osteoporosis: Comment: Forrest: 2011 to 2019. Alendronate: experienced anaphylaxis patient cannot recall what happened with this. Prolia recommended, January 2022. Patient received a dose 04/2023 Last bone density May 2024 Code(s): M81.0 - Age-related osteoporosis without current pathological fracture Category: Medical Qualifiers: Osteoporosis type: age-related Presence of current pathological fracture: without current pathological fracture Qualified Code(s): M81.0 - Age- related osteoporosis without current pathological fracture Plan: Last bone density was May 2024 (8) Seropositive rheumatoid arthritis: Comment: +RF++CCP Methotrexate - 2016-present Xeljanx 11/2019-06/2020 Humira 10/2018-02/2019 Simponi Aria infusions- January 2016 failed Remicade 08/2014-01/2015 failed Enbrel - prior to 2013 failed Code(s): M05.9 - Rheumatoid arthritis with rheumatoid factor, unspecified Category: Medical Plan: Patient follows up with Rheumatology on methotrexate (9) Allergic conjunctivitis: Code(s): H10.10 - Acute atopic conjunctivitis, unspecified eye Category: Medical (10) Vision changes: Code(s): H53.9 - Unspecified visual disturbance Category: Medical (11) Lipoma of back: Code(s): D17.1 - Benign lipomatous neoplasm of skin and subcutaneous tissue of trunk Category: Medical (12) Aortic stenosis, mild: Comment: 1.49 cm 03/2025 Code(s): I35.0 - Nonrheumatic aortic (valve) stenosis Category: Medical Plan History of Present Illness The patient is an 84-year-old female presenting for a follow-up visit regarding ongoing management of her chronic medical conditions. She experiences chronic pain secondary to lumbar spondylosis with an L1 compression fracture, for which she has undergone several interventional procedures with partial effectiveness. 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 The patient reported recent ocular symptoms including wateriness and crusty discharge in her right eye, likely related to allergies, and plans to consult with an armament installer. She maintains a management plan for asthma with montelukast, for hypertension with amlodipine and metoprolol, and for hypercholesterolemia with atorvastatin, while plans for updated cholesterol testing are in place. Recent laboratory results showed normal hematologic parameters and metabolic function, and mild aortic valve stenosis was noted, requiring continued monitoring. Health Maintenance - Immunizations: Discussed updates on COVID-19 vaccine and potential shingles vaccination. - Diagnostic Screening: Cholesterol levels require reassessment. Plan to monitor mild aortic valve stenosis with follow-up echocardiography. - General Management: Regular follow-ups for the management of chronic conditions, including asthma, hypertension, and hypercholesterolemia. Social History - No specific social determinants of health discussed in the conversation. Review of Systems - Musculoskeletal: Reports chronic back pain, lumbar spine issues. - Dermatology: Reports presence of fatty tumors. - Ophthalmologic: Reports watery and crusty eyes, primarily right side. - Respiratory: Denies exacerbation of asthma symptoms. - Cardiovascular: Reports history of aortic valve stenosis, denies new symptoms. Physical Exam Results - Labs: Normal blood count, normal platelet count, normal white blood cell count, normal electrolytes, normal renal and liver function. Sedimentation rate 23. - Tests and Diagnostics: Last known cholesterol test dated January 2024. Plan The management of the patient's chronic conditions continues with close monitoring of her lumbar spondylosis and related pain management, supported by the use of a walker. Though the fatty tumors identified are benign, further intervention is deferred unless clinically necessary. Ocular symptoms likely due to allergies will be addressed with Patanol eye drops, and ongoing ophthalmology assessment is planned. She remains stable on montelukast for asthma and requires updated cholesterol testing to confirm atorvastatin efficacy, while her blood pressure management continues with amlodipine and metoprolol. Follow-up echocardiography is recommended to monitor her mild aortic valve stenosis. Vaccinations for COVID-19 and shingles are planned at local pharmacies to maintain comprehensive preventive care. Patient was informed and verbally consented to the use of an ambient scribe for clinic note documentation during this visit. Discussion Notes During today's visit, we addressed the patient's multifaceted chronic health conditions with specific focus on pain management, newly presented swelling henderson ggested as fatty tumors, and recent ocular symptoms. Her current medication regimen appears effective for chronic conditions such as asthma, hypertension, and hypercholesterolemia, but cholesterol levels will be reassessed. I reassured the patient that the aortic valve stenosis is mild and not currently problematic but advised follow up with echocardiography to assess for any progression. We reviewed the benefits of allergy eye drops like Patanol and emphasized self-monitoring, including the potential for new symptom presentation. I also provided guidance on her vaccination status and advised obtaining both COVID-19 and shingles vaccines at her local pharmacy. The necessity for ongoing follow-up for each condition was reiterated, ensuring that future visits are planned to assess the evolution of her conditions and overall health status. Patient Instructions - Continue using a walker as needed for ambulation due to back pain. - Try Patanol allergy eye drops for eye symptoms and consult with an eye doctor for further evaluation. - Maintain current blood pressure and asthma medications: amlodipine, metoprolol, and montelukast. - Follow up on new lab results, particularly cholesterol levels; no immediate menezes but important to complete. - Plan for echocardiography to monitor aortic valve stenosis. - Consider getting COVID-19 and shingles vaccines at the pharmacy. - Return for follow-up visits for comprehensive management of ongoing health issues. Orders: Orders Comprehensive Met. Panel Today E78.00 - Pure hypercholesterolemia, unspecified Lipid Panel Today E78.00 - Pure hypercholesterolemia, unspecified Vitamin B12 and Folate Today E78.00 - Pure hypercholesterolemia, unspecified Thyroid Stimulating Hormone Today E78.00 - Pure hypercholesterolemia, unspecified Vitamin D 25-OH Total Today E78.00 - Pure hypercholesterolemia, unspecified CA echo transthoracic complete Today I35.0 - Nonrheumatic aortic (valve) stenosis Referrals Ophthalmology Referral H53.9 - Unspecified visual disturbance Medications: New olopatadine 0.1% separate doses by at least 6-8 hours 1 drp ophthalmic (eye) BID 5 mL 2RF H10.10 - Acute atopic conjunctivitis, unspecified eye
--- OUTSIDE RECORDS SUMMARY | 2025-04-09 12:55 | XMS_ITS | Clinical Summary ---
Author Organization [facility] Address [address] [place] [address] Care Team Providers Care Pants Busheler Name Role Phone Unavailable Primary Care Provider [...] ( - 2023-2 5 season) 2024 Influenza (Season Ended) 2025 HPV Vaccine Aged Out No longer eligi [...]
== END 2025-04-09 12:59 | disposition home or self-care (01) ==
LOC: HO.HMCH 12:21
PROVIDERS: PCP Internal Medicine; Visit Provider Internal Medicine
DX: S32.010A Wedge compression fracture of first lumbar vertebra, initial encounter for closed fracture (principal); F41.1 Generalized anxiety disorder; M05.9 Rheumatoid arthritis with rheumatoid factor, unspecified; I10 Essential (primary) hypertension; E78.00 Pure hypercholesterolemia, unspecified; J45.20 Mild intermittent asthma, uncomplicated; K21.9 Gastro-esophageal reflux disease without esophagitis; M81.0 Age-related osteoporosis without current pathological fracture; H10.13 Acute atopic conjunctivitis, bilateral; H53.9 Unspecified visual disturbance; D17.1 Benign lipomatous neoplasm of skin and subcutaneous tissue of trunk; I35.0 Nonrheumatic aortic (valve) stenosis

== ENCOUNTER → 2025-04-09 12:20 | Outpatient (BNVA) | payer MEDICARE, OTHER, SELFPAY | PROVIDERS: PCP Internal Medicine; Visit Provider Internal Medicine | DX: F41.1 Generalized anxiety disorder (principal); I10 Essential (primary) hypertension; E78.00 Pure hypercholesterolemia, unspecified; S32.010D Wedge compression fracture of first lumbar vertebra, subsequent encounter for fracture with routine healing; J45.20 Mild intermittent asthma, uncomplicated; K21.9 Gastro-esophageal reflux disease without esophagitis; M81.0 Age-related osteoporosis without current pathological fracture; M05.9 Rheumatoid arthritis with rheumatoid factor, unspecified; H10.10 Acute atopic conjunctivitis, unspecified eye; H53.9 Unspecified visual disturbance; D17.1 Benign lipomatous neoplasm of skin and subcutaneous tissue of trunk; I35.0 Nonrheumatic aortic (valve) stenosis | CPT/HCPCS: 99212 ==

== ENCOUNTER → 2025-05-28 10:43 | Outpatient (REF) | payer MEDICARE, OTHER, SELFPAY ==
--- NOTE | 2025-05-28 10:45 | CA_ITS ---
Transthoracic Echocardiogram Patient (Last, First, Middle): Ellie Alcocer S Gender: Female Date of : 1940 Age: 85 Procedure Date: 05/28/2025 Procedure Type: Transthoracic Echocardiogram Location: OP Height: 170.18 cm Weight: 65.77 kg BSA: 1.76 m2 Heart Rate: bpm BP: 130 / 76 mmHg Business Continuity Consultant: FRANCISCA Referring MD: Renetta Vides MD Partridge Farmer: Wilner Ortiz MD Symptoms: I35.0 - Nonrheumatic aortic (valve) stenosis Study Quality: Adequate ECG Rhythm: Sinus Conclusions: - 1. Normal LV ejection fraction of 65-70% with mild LVH with impaired relaxation filling pattern 2. Mildly dilated left atrium 3. Nyhd-mc-kwahgnjr aortic stenosis 4. Normal RV systolic pressure 5. No gross pericardial effusion Findings Left Ventricle Normal left ventricular size and systolic function. There is mildly increased left ventricular wall thickness. The visually estimated ejection fraction is between 65-70%. Spectral Doppler is indicative of an impaired relaxation filling pattern. E/E prime ratio is between 8 and 15 consistent with indeterminate filling pressures. Right Ventricle Normal right ventricular cavity size and systolic function. Atria The left atrium is mildly dilated. There is no evidence of interatrial shunt. The right atrium is likely dilated. Aortic Valve There is moderate calcification of the aortic valve. There is mild thickening of the aortic valve. There is mild to moderate aortic valve stenosis. The peak aortic velocity is 2.30 m/s with a calculated peak gradient of 21 mmHg. The mean gradient is 11 mmHg. The aortic valve area is 1.39 cm2. There is no aortic valve regurgitation. Mitral Valve There is mild anterior and posterior mitral leaflet thickening. There is trace mitral valve regurgitation. There is no mitral valve stenosis. Pulmonic Valve The pulmonic valve is likely normal. Tricuspid Valve Normal tricuspid valve structure. There is trace tricuspid valve regurgitation. The right ventricular systolic pressure is normal. The right ventricular systolic pressure is 16 mmHg. Normal right atrial pressure. There is no evidence of pulmonary hypertension. Great Vessels All visible segments of the aorta are normal in size. The pulmonary artery was not well visualized. There is no dilatation of the ascending aorta measuring 3.20 cm. Venous The inferior vena cava is normal in size and collapses greater than 50% with inspiration. Pericardium/Pleural There is no evidence of pericardial effusion. Prior Study Comparison Changes noted compared to prior study dated: 03/29/2024. aortic stenosis marginally worse Measurements 2D Linear Measurements IVSd: 1.44 0.6-0.9/0.6-1.0 cm LVIDd: 3.58 3.9-5.3/4.2-5.9 cm LVIDd Index: 2.03 2.4-3.2/2.2-3.1 cm/m2 LVIDs: 2.27 2.0-3.6 cm LVPWd: 1.19 0.7-1.1 cm LA Diam: 3.00 2.7-3.8/3.0-4.0 cm LAIDs Index: 1.70 1.5-2.3 cm/m2 LV Mass: 201.34 67-162/88-224 g LV Mass Index: 114.40 43-95/49-115 g/m2 LVOT Diam: 1.90 3.0+(-)1.3 cm 2D Systolic Function EF 4C: 67.70 >55% EF 2C: 60.60 >55% EF BiP: 66.50 >55% Mitral Valve MV Pk E: 0.82 MV PK A: 1.00 MV Decel Time: 302.00 E/A: 0.80 E'Lateral: 5.33 E'Medial: 5.44 E/E' Med: 15.10 E/E' Lat: 15.40 PHT: 89.00 MVA PHT: 2.47 Decel [place]: 2.72 Aortic Valve AoV Pk Gio: 2.30 AoV Mn Gio: 1.56 AoV VTI: 0.51 AoV Pk Grad: 21.00 Aov Mn Grad: 11.00 STEFFI Cont.VTI: 1.39 LVOT LVOT Pk Gio: 1.05 LVOT Mn Gio: 0.73 LVOT VTI: 0.25 LVOT Pk Grad: 4.00 LVOT Mn Grad: 2.00 LVOT Diam: 1.90 LVOT Area: 2.84 Diastolic Function MV Pk E: 0.82 MV Pk A: 1.00 E/A: 0.80 E'Medial: 5.44 E/E' Med: 15.10 E' Laterial: 5.33 E/E' Lat: 15.40 Right Ventricle TAPSE (mm): 23.20 TVS' Gio: 12.80 Tricuspid Valve TR Pk Gio: 1.81 TR Pk Grad: 13.00 RA Press: 3.00 RVSP: 16.00 Great Vessels Aorta Sinus of Valsalva: 2.78 2.0-3.[address] [place]: 1.85 1.7-3.4 cm Ao Asc: 3.20 2.1-3.4 cm Updated in Other Vendor System with Status of Final Wilner Ortiz MD electronically signed on 05/28/2025 12:41:15 PM with status of Final
--- OUTSIDE RECORDS SUMMARY | 2025-05-28 11:44 | XMS_ITS | Encounter Summary ---
Author Organization [facility] Address [address] [place] [address] Care Team Providers Care System Auditor Name Role Phone Unavailable Primary Care Provider Unavailabl e Encounter Details Date Type Department Care Team (Late st Contact Info) Description 09/29/[address] [facility] [address] [place] [address] Angelo Kasper MD [address] [place] [id number] Encounter for other general examination Social History [...] LAB HEMETOLOGY METHOD 09/29/2024 11:08 AM EST [facility] RBC 4.10 3.80 - [...] Res ult [facility] [address] [place] [address], [place] [phone] * Magnesium (09/29/2024 7:35 AM EST) [facility] Magnesium 2.1 1.9 - 2.6 mg/dL LAB CHEMISTRY METHOD 09/29/2024 11:09 AM EST [facility] Blood Venous blood specimen / Unknown Venipuncture / Unknown 09/29/2024 7:35 AM EST 09/29/2024 10:30 AM EST us Angelo Kasper MD LAB BLOOD ORDERABLES Final Res ult [facility] [address] [place] [address], [place] [phone] * (ABNORMAL) Comprehensive metabolic panel (09/29/2024 7:35 AM EST) [facility] Sodium 138 133 - 145 mmol/L LAB [...] [facility] Comment:Calculation based on the Chronic Kidney Disease Epidemiology Collaboration (CKD-EPI) equation refit without adjustment for race. BUN/Creatinine Ratio 20.3 LAB [...] Res ult [facility] [address] [place] [address], documented in this encounter Visit Diagnoses Diagnosis Encounter for other general examination documented in this encounter
--- OUTSIDE RECORDS SUMMARY | 2025-05-28 11:44 | XMS_ITS | Clinical Summary ---
Author Organization [facility] Address [address] [place] [address] Care Team Providers Care Inspector Screen Printing Name Role Phone Unavailable Primary Care Provider [...] ( - 2023-2 5 season) 2024 Influenza (#1) 2025 HPV Vaccine Aged Out No longer [...]
== END ==
LOC: HO.CARD 10:43
PROVIDERS: PCP Internal Medicine; Visit Provider Internal Medicine
DX: I35.0 Nonrheumatic aortic (valve) stenosis (principal)
CPT/HCPCS: 93306

== ENCOUNTER → 2025-05-28 10:45 | Outpatient (BNV) | payer MEDICARE, OTHER, SELFPAY | PROVIDERS: PCP Internal Medicine; Visit Provider Internal Medicine Cardiovascular Disease | DX: I35.0 Nonrheumatic aortic (valve) stenosis (principal) | CPT/HCPCS: 93306 ==

== ENCOUNTER 2025-06-03 07:06 | Emergency (ER) | payer MEDICARE, OTHER, SELFPAY ==
--- NOTE | ~2025-06-03 | XR_ITS ---
EXAMINATION: XR FOOT, LEFT CLINICAL INFORMATION: contusion COMPARISON: February 15, 2007 TECHNIQUE: AP, lateral, and oblique views of the left foot. FINDINGS: Sclerosis of the articular surfaces with minimal subchondral cyst formation at the metatarsophalangeal joint and the proximal interphalangeal joints of the second, third and fourth toes. There is a lateral deviation of the first metatarsophalangeal joint. No acute cortical disruption or malalignment. No lytic or blastic lesions. No subcutaneous emphysema. No gross joint effusion. XR/XR foot LT min 3V IMPRESSION: No acute fracture or dislocation. Hallux valgus deformity, first metatarsophalangeal joint. Moderate to severe osteoarthrosis/osteoarthritis, toes. Electronically signed by: Reggie Hall MD 06/03/2025 08:29 AM EDT
[2025-06-03 07:12] VITALS: BP 160/94; PULSE 90; O2SAT 97
[2025-06-03 07:19] VITALS: BP 152/67; PULSE 86; RESP 18; TEMP 36.4; O2SAT 97; BMI 23.4
--- OUTSIDE RECORDS SUMMARY | 2025-06-03 07:39 | XMS_ITS | Encounter Summary ---
Author Organization [facility] Address [address] [place] [address] Care Team Providers Care Sea Foam Kiss Maker Name Role Phone Unavailable Primary Care Provider Unavailabl e Encounter Details Date Type Department Care Team (Late st Contact Info) Description 09/29/2024 Lab Requisition [facility] - Main Lab [address] [place] [address] Angelo Kasper MD [address] [place] [id number] Encounter for other general examination Social History [...] LAB HEMETOLOGY METHOD 09/29/2024 11:08 AM EST [facility] RBC 4.10 3.80 - 4.80 M/mcL LAB HEMETOLOGY METHOD 09/29/2024 11:08 AM [facility] Hemoglobin 12.5 11.5 - 16.0 g/dL LAB HEMETOLOGY METHOD 09/29/2024 11:08 AM [facility] Hematocrit 39.9 35.0 - 47.0 % LAB HEMETOLOGY METHOD 09/29/2024 11:08 AM [facility] MCV 96.8 79.0 - 98.0 FL LAB HEMETOLOGY METHOD 09/29/2024 11:08 AM [facility] MCH 30.3 27.0 - 32.0 pcg LAB HEMETOLOGY METHOD 09/29/2024 11:08 AM [facility] MCHC 31.3(L) 32.0 - 37.0 g/dL LAB HEMETOLOGY METHOD 09/29/2024 11:08 AM [facility] RDW 14.0 11.0 - 15.0 % LAB HEMETOLOGY METHOD 09/29/2024 11:08 AM [facility] Platelets 293 130 - 400 K/mcL LAB HEMETOLOGY METHOD 09/29/2024 11:08 AM [facility] MPV 9.5 7.0 - 11.0 FL LAB HEMETOLOGY METHOD 09/29/2024 11:08 AM [facility] NRBC 0.0 <1.0 % LAB HEMETOLOGY METHOD 09/29/2024 11:08 AM [facility] NRBC Absolute 0.00 <0.10 K/mcL LAB HEMETOLOGY METHOD 09/29/2024 11:08 AM [facility] Neutrophils Relative 54.5 % LAB HEMETOLOGY METHOD 09/29/2024 11:08 AM [facility] Lymphocytes Relative 34.1 % LAB HEMETOLOGY METHOD 09/29/2024 11:08 AM [facility] Monocytes Relative 5.0 % LAB HEMETOLOGY METHOD 09/29/2024 11:08 AM [facility] Eosinophils Relative 4.3 % LAB HEMETOLOGY METHOD 09/29/2024 11:08 AM [facility] Basophils Relative 1.0 % LAB HEMETOLOGY METHOD 09/29/2024 11:08 AM [facility] Immature Granulocytes Relative 1.1 % LAB HEMETOLOGY METHOD 09/29/2024 11:08 AM [facility] Neutrophils Absolute 6.25 1.50 - 7.00 K/mcL LAB HEMETOLOGY METHOD 09/29/2024 11:08 AM [facility] Lymphocytes Absolute 3.93 1.00 - 5.00 K/mcL LAB HEMETOLOGY METHOD 09/29/2024 11:08 AM [facility] Monocytes Absolute 0.58 0.20 - 1.00 K/mcL LAB HEMETOLOGY METHOD 09/29/2024 11:08 AM [facility] Eosinophils Absolute 0.50 0.00 - 0.50 K/mcL LAB HEMETOLOGY METHOD 09/29/2024 11:08 AM [facility] Basophils Absolute 0.12 0.00 - 0.20 K/mcL LAB HEMETOLOGY METHOD 09/29/2024 11:08 AM [facility] Immature Granulocytes Absolute 0.13(H) 0.00 - 0.03 K/mcL LAB HEMETOLOGY METHOD 09/29/2024 11:08 AM [facility] Blood Venous blood specimen / Unknown Venipuncture / Unknown 09/29/2024 7:35 AM EST 09/29/2024 10:30 AM EST us Angelo Kasper MD LAB BLOOD ORDERABLES Final Res ult [facility] [address] [place] [address], [place] [phone] * Magnesium (09/29/2024 7:35 AM EST) [facility] Magnesium 2.1 1.9 - 2.6 mg/dL LAB CHEMISTRY METHOD 09/29/2024 11:09 AM EST [facility] Blood Venous blood specimen / Unknown Venipuncture / Unknown 09/29/2024 7:35 AM EST 09/29/2024 10:30 AM EST us Angelo Kasper MD LAB BLOOD ORDERABLES Final Res ult [facility] [address] [place] [address], [place] [phone] * (ABNORMAL) Comprehensive metabolic panel (09/29/2024 7:35 AM EST) [facility] Sodium 138 133 - 145 mmol/L LAB CHEMISTRY METHOD 09/29/2024 11:09 AM [facility] Potassium 4.8 3.5 - 5.5 mmol/L LAB CHEMISTRY METHOD 09/29/2024 11:09 AM [facility] Chloride 107 96 - 110 mmol/L LAB CHEMISTRY METHOD 09/29/2024 11:09 AM [facility] CO2 24 21 - 32 mmol/L LAB CHEMISTRY METHOD 09/29/2024 11:09 AM [facility] Anion Gap 7 3 - 11 LAB CHEMISTRY METHOD 09/29/2024 11:09 AM [facility] Glucose 75 70 - 100 mg/dL LAB CHEMISTRY METHOD 09/29/2024 11:09 AM [facility] BUN 16 5 - 25 mg/dL LAB CHEMISTRY METHOD 09/29/2024 11:09 AM [facility] Creatinine 0.79 0.50 - 1.10 mg/dL LAB CHEMISTRY METHOD 09/29/2024 11:09 AM [facility] eGFR 73 >=60 mL/min/1. 73m2 LAB CHEMISTRY METHOD 09/29/2024 11:09 AM [facility] Comment:Calculation based on the Chronic Kidney Disease Epidemiology Collaboration (CKD-EPI) equation refit without adjustment for race. BUN/Creatinine Ratio 20.3 LAB CHEMISTRY METHOD 09/29/2024 11:09 AM [facility] Calcium 9.3 8.5 - 10.5 mg/dL LAB CHEMISTRY METHOD 09/29/2024 11:09 AM [facility] AST (SGOT) 29 10 - 42 unit/L LAB CHEMISTRY METHOD 09/29/2024 11:09 AM [facility] ALT (SGPT) 33 10 - 60 unit/L LAB CHEMISTRY METHOD 09/29/2024 11:09 AM [facility] Alkaline Phosphatase 134(H) 42 - 121 unit/L LAB CHEMISTRY METHOD 09/29/2024 11:09 AM [facility] Total Protein 6.8 6.0 - 8.0 g/dL LAB CHEMISTRY METHOD 09/29/2024 11:09 AM [facility] Albumin 3.5 3.2 - 5.0 g/dL LAB CHEMISTRY METHOD 09/29/2024 11:09 AM [facility] Total Bilirubin 0.5 0.0 - 1.4 mg/dL LAB CHEMISTRY METHOD 09/29/2024 11:09 AM [facility] Blood Venous blood specimen / Unknown Venipuncture / Unknown 09/29/2024 7:35 AM EST 09/29/2024 10:30 AM EST us Angelo Kasper MD LAB BLOOD ORDERABLES Final Res ult [facility] [address] [place] [address], documented in this encounter Visit Diagnoses Diagnosis Encounter for other general examination documented in this encounter
--- OUTSIDE RECORDS SUMMARY | 2025-06-03 07:39 | XMS_ITS | Clinical Summary ---
Author Organization [facility] Address [address] [place] [address] Care Team Providers Care Crosstie Inspector Name Role Phone Unavailable Primary Care [...] season) 2024 Influenza (#1) 2025 HPV Vaccine (No Doses Required) Completed Hep A Aged Out No longer eligi [...]
--- NOTE | 2025-06-03 09:30 | ED.GENADULT ---
HPI - General Adult General Chief complaint: Extremity Injury, Lower Stated complaint: PAINFUL L FOOT CONTUSION PER EMS Time Seen by Provider: 06/03/25 09:08 Source: patient, RN notes reviewed and old records reviewed Mode of arrival: ambulatory Limitations: no limitations History of Present Illness ED Provider: Romain HPI narrative: 85-year-old female presents for left foot pain. Patient reports that her left leg fell off the bed today and smacked against the bed frame. She did not fall completely off the bed, only her leg and foot She has no pain at rest. She has 8/10 pain with walking or with palpation She is on Plavix but no anticoagulation Denies any fevers or chills Related Data Home Medications ?Medication ?Instructions ?Recorded ?Confirmed vitamin B complex (B 1 tab PO DAILY 09/04/20 03/13/25 Complex-Vitamin B12 tablet) bisacodyl 5 mg tablet,delayed 5 mg PO DAILY PRN Constipation 09/27/24 03/13/25 release amlodipine 5 mg tablet 5 mg PO DAILY 11/07/24 03/13/25 Previous Rx's ?Medication ?Instructions ?Recorded [facility] Bone Stimulator #1 ea 10/09/20 lactulose 20 gram/30 mL oral 20 g (30 mL) PO QID PRN 11/30/23 solution constipation #1 mL multivitamin 1 tab PO DAILY #90 tabs 12/21/23 acetaminophen 500 mg tablet 500 mg PO Q6H PRN fever or pain 09/09/24 (Tylenol Extra Strength) #14 tabs clopidogrel 75 mg tablet (Plavix) 75 mg PO DAILY #90 tabs 10/25/24 tramadol 50 mg tablet 50 mg PO Q6-8H PRN pain #120 tabs 01/01/25 pantoprazole 20 mg tablet,delayed 20 mg PO DAILY #30 tabs 01/16/25 release methocarbamol 750 mg tablet 750 mg PO QID PRN pain #20 tabs 01/29/25 ropinirole 3 mg tablet 3 mg PO DAILY@1800 #90 tabs 02/11/25 methotrexate sodium 2.5 mg tablet 15 mg (6 x 2.5 mg) PO QWEEK #72 02/21/25 tabs atorvastatin 40 mg tablet 40 mg PO DAILY #30 tabs 03/07/25 oxycodone 5 mg capsule 5 mg PO Q6H PRN postoperative pain 03/07/25 5 days #20 caps cholecalciferol (vitamin D3) 125 125 mcg PO DAILY #90 caps 03/11/25 mcg (5,000 unit) capsule folic acid 1 mg tablet 1 mg PO DAILY #90 tabs 04/03/25 metoprolol succinate 25 mg 25 mg PO DAILY #90 tabs 04/03/25 tablet,extended release 24 hr montelukast 10 mg tablet 10 mg PO BEDTIME #90 tabs 04/03/25 olopatadine 0.1 % eye drops 1 drp ophthalmic (eye) BID #5 mL 04/09/25 allopurinol 100 mg tablet 100 mg PO DAILY #30 tabs 04/23/25 meclizine 25 mg tablet 50 mg (2 x 25 mg) PO DAILY Nausea 05/01/25 #60 tabs meloxicam 15 mg tablet 15 mg PO DAILY #90 tabs 05/01/25 Allergies Allergy/AdvReac Type Severity Reaction Status Date / Time alendronate sodium (From Allergy Severe ANAPHYLAXIS Verified 06/03/25 07:22 FOSAMAX) lisinopril (LISINOPRIL) Allergy Severe ANAPHYLAXIS, Verified 04/09/25 12:32 cough clarithromycin Allergy Intermediate CONFUSION, Verified 04/09/25 12:32 (CLARITHROMYCIN) sores on tongue, dry mouth simvastatin (SIMVASTATIN) Allergy Mild DRY Verified 04/09/25 12:32 THROAT, achy, confusion Review of Systems Constitutional: Constitutional: Denies chills, Denies fever(s) and Denies headache(s) Eyes: Eyes: Denies irritation ENT: Denies headache(s) Cardiovascular: Cardiovascular: Denies chest pain and Denies dyspnea on exertion Respiratory: Respiratory: Denies cough and Denies dyspnea on exertion Musculoskeletal: Musculoskeletal: Reports arthralgias, Reports joint swelling and Reports limited range of motion Neurologic: Denies headache(s) Psychiatric: Psychiatric: Denies anxiety PMF Past Medical History Medical History (Updated 06/03/25 @ 09:36 by Ubaldo Hoyos) Pre-op chest exam Meniere disease Transient ischemic attack (TIA) Osteoarthritis of shoulders, bilateral Osteoarthritis of carpometacarpal (CMC) joint of right thumb Overweight (BMI 25.0-29.9) High cholesterol Thrush, oral Nondisplaced fracture of fifth metatarsal bone, left foot, subsequent encounter for fracture with nonunion Seropositive rheumatoid arthritis Fracture of 5th metatarsal Fracture of fifth metatarsal bone of right foot Polymyalgia rheumatica Anxiety and depression Lumbar degenerative disc disease Osteoporosis Gout Restless leg syndrome Hypergammaglobulinemia GERD (gastroesophageal reflux disease) Seizure disorder Hypertension Hypercholesterolemia Asthma Peripheral neuropathy Rheumatoid arthritis Surgical History History of surgery (02/07/25) History of bilateral knee replacement Corneal transplant status History of arthroplasty of right hip History of total abdominal hysterectomy History of corneal transplant H/O left knee surgery History of open reduction and internal fixation (ORIF) procedure History of cholecystectomy History of appendectomy Family History Family History Father CVD (cardiovascular disease) Mother No problems noted. Social History Social History Household Members: Significant Other Household Members Other:: parter Housing: House Are you a primary administrator health care facility to a significant other at home: No Do you presently have visiting nurse or other home services: No Alcohol intake: current Alcohol intake frequency: holidays/special occasions only Alcohol type: wine Comment: counts correct Patient Tobacco Use Status: Never used Tobacco e-Cigarette/Vaping Use: Never Used Second Hand Smoke Exposure: No Advance Directives: Yes Advance Directives on File: Yes Advance Directives Date on File: 07/11/23 service: No Current occupational status: retired Cognitive needs: Yes (walker) Hearing needs: Yes Vision needs: Yes Physical Exam ED Vital Signs: Vital Signs - 24 hr 06/03/25 07:19 Temperature 97.5 F Pulse Rate 86 Respiratory Rate 18 Blood Pressure 152/67 H Pulse Oximetry 97 Oxygen Delivery Method Room Air BMI result Body Mass Index 23.4 Const General: healthy appearing, comfortable, no acute distress, alert and awake Nutritional Appearance: well nourished Orientation/consciousness: patient oriented x3 HENMT Head: Yes normocephalic and Yes atraumatic Eyes Eyelids: Yes eyelids normal Conjunctivae: conjunctivae normal Sclerae: sclerae normal Corneas: corneas normal Pupils: Equal, round and reactive pupils present EOM: EOMs intact bilaterally Neck Neck: Yes full ROM Resp Effort & Inspection: normal respiratory effort, able to speak in complete sentences and not labored Skin General skin exam: elasticity normal Neuro General: patient oriented x3 Cranial nerves: Yes Equal, round and reactive pupils present and Yes Bilaterally intact EOM present Cognition (Neuro): normal cognition Extrem Other: There is mild left lateral foot edema with surrounding ecchymosis. There is a very tiny, approximately 2-3 mm skin tear. No deep wounds or lacerations, no bleeding. No tenderness over the ankle in the medial or lateral malleolus. No tenderness over the Achilles. Patient has full range of motion to the left foot and ankle Medical Decision Making Medical Decision Making MDM Narrative: 85-year-old female presents for evaluation of left foot pain. She has a small contusion/hematoma on exam. X-ray negative for fracture but does show moderate osteoarthritis. This was discussed with the patient and she is stable for discharge at this time Differential Diagnosis Differential Diagnoses: The differential diagnosis associated with the presentation includes Contusion Fracture Dislocation Hematoma Osteoarthritis Independent Interpretation I performed an independent interpretation of an: Plain X-Ray (No obvious fracture) Radiology Impression Discussion of test interpretation with radiology: I have reviewed the radiologist's reading. (FINDINGS: Sclerosis of the articular surfaces with minimal subchondral cyst formation at the metatarsophalangeal joint and the proximal interphalangeal joints of the second, third and fourth toes. There is a lateral deviation of the first metatarsophalangeal joint. No acute cortical disruption or) Discharge Plan Discharge Clinical Impression: Contusion of foot, left Patient Disposition: Home, Self-Care Instructions: Foot Contusion (ED) Additional Instructions: Your x-ray showed fairly significant arthritis but there was no fracture or dislocation You may use ibuprofen or Tylenol for your pain Apply ice to the swollen area every 4 hours for 10-15 minutes Elevate your foot above your heart while resting Avoid walking or standing for long periods while your foot is healing Return for new or worsening symptoms Prescriptions: No Action multivitamin Tablet 1 tab PO DAILY Qty: 90 0RF clopidogrel [Plavix] 75 mg tablet 75 mg PO DAILY Qty: 90 5RF tramadol 50 mg tablet 50 mg PO Q6-8H PRN (Reason: pain) Qty: 120 0RF pantoprazole 20 mg tablet,delayed release (DR/EC) 20 mg PO DAILY Qty: 30 11RF ropinirole 3 mg tablet 3 mg PO DAILY@1800 Qty: 90 8RF methotrexate sodium 2.5 mg tablet 15 mg PO QWEEK Qty: 72 1RF oxycodone 5 mg capsule 5 mg PO Q6H MDD 4 pills PRN (Reason: postoperative pain ) 5 Days Qty: 20 0RF Rx Instructions: Partial Fill upon patient request. atorvastatin 40 mg tablet 40 mg PO DAILY Qty: 30 3RF cholecalciferol (vitamin D3) 125 mcg (5,000 unit) capsule 125 mcg PO DAILY Qty: 90 1RF montelukast 10 mg tablet 10 mg PO BEDTIME Qty: 90 8RF metoprolol succinate 25 mg tablet extended release 24 hr 25 mg PO DAILY Qty: 90 8RF folic acid 1 mg tablet 1 mg PO DAILY Qty: 90 8RF allopurinol 100 mg tablet 100 mg PO DAILY Qty: 30 5RF meclizine 25 mg tablet 50 mg PO DAILY Qty: 60 2RF meloxicam 15 mg tablet 15 mg PO DAILY Qty: 90 1RF lactulose 20 gram/30 mL Solution 20 g PO QID PRN (Reason: constipation) Qty: 1 0RF bisacodyl 5 mg tablet,delayed release (DR/EC) 5 mg PO DAILY PRN (Reason: Constipation) acetaminophen [Tylenol Extra Strength] 500 mg tablet 500 mg PO Q6H PRN (Reason: fever or pain) Qty: 14 0RF vitamin B complex [B Complex-Vitamin B12] Tablet 1 tab PO DAILY (DME) [facility] Bone Stimulator See Rx Instructions .Route .MEDSUPPLY Qty: 1 0RF Rx Instructions: As directed methocarbamol 750 mg tablet 750 mg PO QID PRN (Reason: pain) Qty: 20 0RF olopatadine 0.1 % drops 1 drp ophthalmic (eye) BID Qty: 5 2RF Rx Instructions: separate doses by at least 6-8 hours amlodipine 5 mg tablet 5 mg PO DAILY Print Language: Comoran
[2025-06-03 09:47] VITALS: BP 152/67; PULSE 86; RESP 18; TEMP 36.4; O2SAT 97
== END 2025-06-03 09:47 | disposition home or self-care (01) ==
PROVIDERS: Emergency Provider Emergency Medicine; PCP Internal Medicine
DX: S90.32XA Contusion of left foot, initial encounter (principal); W22.8XXA Striking against or struck by other objects, initial encounter; M19.072 Primary osteoarthritis, left ankle and foot; Y93.89 Activity, other specified; Y92.013 Bedroom of single-family (private) house as the place of occurrence of the external cause; Y99.8 Other external cause status
CPT/HCPCS: 73630; 99282; 99283

== ENCOUNTER → 2025-06-03 07:17 | Outpatient (BNV) | payer MEDICARE, OTHER, SELFPAY | PROVIDERS: PCP Internal Medicine; Visit Provider Radiology Diagnostic Radiology | DX: M19.072 Primary osteoarthritis, left ankle and foot (principal) | CPT/HCPCS: 73630 ==

== ENCOUNTER 2025-06-18 12:57 | Outpatient (AMB) | payer MEDICARE, OTHER, SELFPAY ==
--- NOTE | 2025-06-18 13:00 | A.OFFVIS_ITS ---
Vital Signs 06/18/25 13:01 Height 5 ft 6 in Weight 146 lb 6.191 oz BMI 23.6 BP 122/68 Blood Pressure Location Lt brachial Position Sitting Pulse 87 Pulse Source Monitor Intake Visit Reasons: r/s by us from [facility] Electroencephalograph Technician Required: No Loss Prevention Coordinator: Loss Prevention Coordinator Present Accompanied by: Significant Other Allergies alendronate sodium (From FOSAMAX) Allergy (Severe, Verified 06/03/25 07:22) ANAPHYLAXIS lisinopril (LISINOPRIL) Allergy (Severe, Verified 04/09/25 12:32) ANAPHYLAXIS, cough clarithromycin (CLARITHROMYCIN) Allergy (Intermediate, Verified 04/09/25 12:32) CONFUSION, sores on tongue, dry mouth simvastatin (SIMVASTATIN) Allergy (Mild, Verified 04/09/25 12:32) DRY THROAT, achy, confusion Medication List - Last Reconciled 06/18/25 by Aidan Luna NP acetaminophen (Tylenol Extra Strength) 500 mg PO Q6H PRN allopurinol 100 mg PO DAILY amlodipine 5 mg PO DAILY atorvastatin 40 mg PO DAILY bisacodyl 5 mg PO DAILY PRN cholecalciferol (vitamin D3) 125 mcg PO DAILY clopidogrel (Plavix) 75 mg PO DAILY [CMF Bone Stimulator As directed] folic acid 1 mg PO DAILY lactulose 20 grams (30 mL) PO QID PRN meclizine 50 mg PO DAILY PRN meloxicam 15 mg PO DAILY methocarbamol 750 mg PO QID PRN methotrexate sodium 15 mg (6 x 2.5 mg) PO QWEEK metoprolol succinate ER 25 mg PO DAILY montelukast 10 mg PO BEDTIME multivitamin 1 tab PO DAILY olopatadine 0.1% 1 drp ophthalmic (eye) BID PRN oxycodone 5 mg PO Q6H PRN 5 days MDD 4 pills pantoprazole 20 mg PO DAILY ropinirole 3 mg PO DAILY@1800 tramadol 50 mg PO Q6-8H PRN vitamin B complex (B Complex-Vitamin B12 tablet) 1 tab PO DAILY HPI Comments Details: This is an 85-year-old female patient coming in for a yearly follow-up, accompanied by her partner. Patient with a history of hypertension, hypercholesterolemia, aortic stenosis, and history of TIA. Patient recently underwent an echocardiogram ordered by her PCP. Patient is otherwise reporting feeling well overall without any cardiac symptoms of exertional chest pain, shortness of breath, palpitations, dizziness, orthopnea, PND, leg edema, presyncope or syncope. Patient is reporting compliance with all her medications. Patient's main concern today is about her lower back pain for which she is following pain management and hence a back stimulator. [facility] Medical History Pre-op chest exam Meniere disease Transient ischemic attack (TIA) Osteoarthritis of shoulders, bilateral Osteoarthritis of carpometacarpal (CMC) joint of right thumb Overweight (BMI 25.0-29.9) High cholesterol Thrush, oral Nondisplaced fracture of fifth metatarsal bone, left foot, subsequent encounter for fracture with nonunion Seropositive rheumatoid arthritis Fracture of 5th metatarsal Fracture of fifth metatarsal bone of right foot Polymyalgia rheumatica Anxiety and depression Lumbar degenerative disc disease Osteoporosis Gout Restless leg syndrome Hypergammaglobulinemia GERD (gastroesophageal reflux disease) Seizure disorder Hypertension Hypercholesterolemia Asthma Peripheral neuropathy Rheumatoid arthritis Surgical History History of surgery (02/07/25) History of bilateral knee replacement Corneal transplant status History of arthroplasty of right hip History of total abdominal hysterectomy History of corneal transplant H/O left knee surgery History of open reduction and internal fixation (ORIF) procedure History of cholecystectomy History of appendectomy Family History Father CVD (cardiovascular disease) Mother No problems noted. Social History Household Members: Significant Other Household Members Other:: parter Housing: House Are you a primary rn patient care to a significant other at home: No Do you presently have visiting nurse or other home services: No Alcohol intake: current Alcohol intake frequency: holidays/special occasions only Alcohol type: wine Comment: counts correct Patient Tobacco Use Status: Never used Tobacco e-Cigarette/Vaping Use: Never Used Second Hand Smoke Exposure: No Advance Directives Date on File: 07/11/23 service: No Current occupational status: retired Cognitive needs: Yes (walker) Hearing needs: Yes Vision needs: Yes Review of Systems Const Denies daytime sleepiness, Denies difficulty sleeping, Denies snoring, Denies stops breathing during sleep and Denies weakness Card Denies chest pain, Denies rapid heart rate, Denies irregular heart rhythm, Denies claudication, Denies leg edema, Denies lightheadedness, Denies palpitations, Denies dyspnea, Denies dyspnea on exertion, Denies orthopnea, Denies paroxysmal nocturnal dyspnea and Denies slow heart rate Resp Denies cough, Denies dyspnea, Denies dyspnea on exertion and Denies snoring GI Reports no additional complaints, Denies hematochezia, Denies change in stool character and Denies dyspepsia Musc Denies abnormal gait, Denies muscle weakness and Denies numbness Neuro Denies abnormal gait, Denies numbness and Denies weakness Endo Denies palpitations Physical Exam Vital Signs: Last Vital Signs Pulse 87 06/18/25 13:01 BP 122/68 06/18/25 13:01 BMI result Body Mass Index 23.6 Const General: cooperative, healthy appearing, comfortable and no acute distress Orientation/consciousness: patient oriented x3 HEENT Head: Yes normal to inspection Neck Neck: Yes normal visual inspection, Yes trachea midline and Yes supple Chest Chest palpation & inspection: normal inspection of the chest Resp Effort & Inspection: normal respiratory effort Auscultation: clear to auscultation bilaterally, no crackles, no rales, no rhonchi and no wheezes Cardio Jugular venous distension: no JVD Palpation: normal PMI Rate: regular rate Rhythm: regular rhythm Heart sounds: S1 normal heart sound present, S2 normal heart sound present, no click, no gallops, Murmur heart sound present systolic and no rubs Peripheral pulses: Peripheral pulses 2+ throughout GI Inspection: Yes normal to inspection Palpation (GI): Soft to palpation Auscultation: normal bowel sounds Skin General skin exam: no rashes or lesions noted Neuro General: patient oriented x3 Extrem General: Yes normal to inspection, No no pedal edema and No calf tenderness Psych Appearance: grossly normal Mental Status: mental status grossly normal Speech and movement: Normal speech and movement present Office Procedures EKG Details: EKG today showed normal sinus rhythm, 87 beats per minute, [place], [place]. [address]-[id number], Complete Assessment & Plan Assessment & Plan (1) Aortic stenosis, mild: Code(s): I35.0 - Nonrheumatic aortic (valve) stenosis Category: Medical Plan: 05/28/2025-echo showed a normal LV systolic function with the ejection fraction between 65-70% with mild LVH with impaired relaxation filling pattern, mildly dilated left atrium, mild to moderate aortic stenosis with valve area at 1.39 cm2. Clinically stable. Discussed signs and symptoms to watch for with aortic stenosis, patient verbalizes understanding. Patient with a history of TIA and is on Plavix therapy before this. Continue the same. We will repeat an echo in 1 year. (2) Hypertension: Code(s): I10 - Essential (primary) hypertension Category: Medical Qualifiers: Hypertension type: essential hypertension Qualified Code(s): I10 - Essential (primary) hypertension Plan: Blood pressure today is stable. Continue current regimen of amlodipine and metoprolol. Advised monitoring blood pressures at home with an ideal blood pressure less than 130/80. (3) Hypercholesterolemia: Code(s): E78.00 - Pure hypercholesterolemia, unspecified Category: Medical Plan: Last LDL at 51. Continue statin therapy with an LDL goal less than 70. Advised heart healthy diet, regular exercise as tolerated, med compliance, and management of vascular risk factors. Follow up in 1 year, sooner if needed. In the interim, patient will call the office with any concerns or change in symptoms. This note was generated using voice recognition software. While every effort has been made to ensure accuracy and proper mortgage loan processor, there may be occasional errors that could affect the content or meaning of the described symptoms. Orders: Orders CA echo transthoracic complete 1 Year Aidan Luna NP I35.0 - Nonrheumatic aortic (valve) stenosis AMB EKG-In Office Today Aidan Luna NP I35.0 - Nonrheumatic aortic (valve) stenosis Medications: Changed From meclizine 50 mg (2 x 25 mg) PO DAILY 60 tabs 2RF Nausea To meclizine 50 mg PO DAILY PRN Lorenver O PoMD From olopatadine 0.1% separate doses by at least 6-8 hours 1 drp ophthalmic (eye) BID 5 mL 2RF H10.10 - Acute atopic conjunctivitis, unspecified eye To olopatadine 0.1% separate doses by at least 6-8 hours 1 drp ophthalmic (eye) BID PRN H10.10 - Acute atopic conjunctivitis, unspecified eye Bushraenjeb O PoMD Coding Level of Care Code Est Pt Level 4 (56848) Complex EM visit Add On G2211 Diagnoses Aortic stenosis, mild I35.0 Essential hypertension I10 Hypertension type: essential hypertension Hypercholesterolemia E78.00 CPT Codes EKG - CPT: 68234-[id number], Complete ([id number]) Time Spent (min) 31 Comment Time spent in reviewing the chart, test results, assessment, counseling and documentation.
[2025-06-18 13:01] VITALS: BP 122/68; PULSE 87; BMI 23.6
--- OUTSIDE RECORDS SUMMARY | 2025-06-18 13:30 | XMS_ITS | Encounter Summary ---
Author Organization [facility] [facility] Address [address] [place] [address] Care Team Providers Care Animal Sticker Name Role Phone Unavailable Primary Care Provider Unavailabl e Encounter Details Date Type Department Care Team (Late st Contact Info) Description 09/29/2024 Lab Requisition [facility] - Main Lab [address] [place] [address] Angelo Kasper MD [address] [place] [id number] Encounter for other general examination Social History [...] LAB HEMETOLOGY METHOD 09/29/2024 11:08 AM EST [facility] RBC 4.10 3.80 - 4.80 M/mcL LAB HEMETOLOGY METHOD 09/29/2024 11:08 AM [facility] Hemoglobin 12.5 11.5 - 16.0 g/dL LAB HEMETOLOGY METHOD 09/29/2024 11:08 AM [facility] Hematocrit 39.9 35.0 - 47.0 % LAB HEMETOLOGY METHOD 09/29/2024 11:08 AM [facility] MCV 96.8 79.0 - 98.0 FL LAB HEMETOLOGY METHOD 09/29/2024 11:08 AM [facility] MCH 30.3 27.0 - 32.0 pcg LAB HEMETOLOGY METHOD 09/29/2024 11:08 AM [facility] MCHC 31.3(L) 32.0 - 37.0 g/dL LAB HEMETOLOGY METHOD 09/29/2024 11:08 AM [facility] RDW 14.0 11.0 - 15.0 % LAB HEMETOLOGY METHOD 09/29/2024 11:08 AM [facility] Platelets 293 130 - 400 K/mcL LAB HEMETOLOGY METHOD 09/29/2024 11:08 AM [facility] MPV 9.5 7.0 - 11.0 FL LAB HEMETOLOGY METHOD 09/29/2024 11:08 AM [facility] NRBC 0.0 <1.0 % LAB HEMETOLOGY METHOD 09/29/2024 11:08 AM [facility] NRBC Absolute 0.00 <0.10 K/mcL LAB HEMETOLOGY METHOD 09/29/2024 11:08 AM [facility] Neutrophils Relative 54.5 % LAB HEMETOLOGY METHOD 09/29/2024 11:08 AM [facility] Lymphocytes Relative 34.1 % LAB HEMETOLOGY METHOD 09/29/2024 11:08 AM [facility] Monocytes Relative 5.0 % LAB HEMETOLOGY METHOD 09/29/2024 11:08 AM [facility] Eosinophils Relative 4.3 % LAB HEMETOLOGY METHOD 09/29/2024 11:08 AM [facility] Basophils Relative 1.0 % LAB HEMETOLOGY METHOD 09/29/2024 11:08 AM [facility] Immature Granulocytes Relative 1.1 % LAB HEMETOLOGY METHOD 09/29/2024 11:08 AM [facility] Neutrophils Absolute 6.25 1.50 - 7.00 K/mcL LAB HEMETOLOGY METHOD 09/29/2024 11:08 AM [facility] Lymphocytes Absolute 3.93 1.00 - 5.00 K/mcL LAB HEMETOLOGY METHOD 09/29/2024 11:08 AM [facility] Monocytes Absolute 0.58 0.20 - 1.00 K/mcL LAB HEMETOLOGY METHOD 09/29/2024 11:08 AM [facility] Eosinophils Absolute 0.50 0.00 - 0.50 K/mcL LAB HEMETOLOGY METHOD 09/29/2024 11:08 AM [facility] Basophils Absolute 0.12 0.00 - 0.20 K/mcL LAB HEMETOLOGY METHOD 09/29/2024 11:08 AM [facility] Immature Granulocytes Absolute 0.13(H) 0.00 - 0.03 K/mcL LAB HEMETOLOGY METHOD 09/29/2024 11:08 AM [facility] Blood Venous blood specimen / Unknown Venipuncture / Unknown 09/29/2024 7:35 AM EST 09/29/2024 10:30 AM EST us Angelo Kasper MD LAB BLOOD ORDERABLES Final Res ult [facility] [address] [place] [address], [place] [phone] * Magnesium (09/29/2024 7:35 AM EST) [facility] Magnesium 2.1 1.9 - 2.6 mg/dL LAB CHEMISTRY METHOD 09/29/2024 11:09 AM EST [facility] Blood Venous blood specimen / Unknown Venipuncture / Unknown 09/29/2024 7:35 AM EST 09/29/2024 10:30 AM EST us Angelo Kasper MD LAB BLOOD ORDERABLES Final Res ult [facility] [address] [place] [address], [place] [phone] * (ABNORMAL) Comprehensive metabolic panel (09/29/2024 7:35 AM EST) [facility] Sodium 138 133 - 145 mmol/L LAB CHEMISTRY METHOD 09/29/2024 11:09 AM [facility] Potassium 4.8 3.5 - 5.5 mmol/L LAB CHEMISTRY METHOD 09/29/2024 11:09 AM [facility] Chloride 107 96 - 110 mmol/L LAB CHEMISTRY METHOD 09/29/2024 11:09 AM [facility] CO2 24 21 - 32 mmol/L LAB CHEMISTRY METHOD 09/29/2024 11:09 AM [facility] Anion Gap 7 3 - 11 LAB CHEMISTRY METHOD 09/29/2024 11:09 AM [facility] Glucose 75 70 - 100 mg/dL LAB CHEMISTRY METHOD 09/29/2024 11:09 AM [facility] BUN 16 5 - 25 mg/dL LAB CHEMISTRY METHOD 09/29/2024 11:09 AM [facility] Creatinine 0.79 0.50 - 1.10 mg/dL LAB CHEMISTRY METHOD 09/29/2024 11:09 AM [facility] eGFR 73 >=60 mL/min/1. 73m2 LAB CHEMISTRY METHOD 09/29/2024 11:09 AM [facility] Comment:Calculation based on the Chronic Kidney Disease Epidemiology Collaboration (CKD-EPI) equation refit without adjustment for race. BUN/Creatinine Ratio 20.3 LAB CHEMISTRY METHOD 09/29/2024 11:09 AM [facility] Calcium 9.3 8.5 - 10.5 mg/dL LAB CHEMISTRY METHOD 09/29/2024 11:09 AM [facility] AST (SGOT) 29 10 - 42 unit/L LAB CHEMISTRY METHOD 09/29/2024 11:09 AM [facility] ALT (SGPT) 33 10 - 60 unit/L LAB CHEMISTRY METHOD 09/29/2024 11:09 AM [facility] Alkaline Phosphatase 134(H) 42 - 121 unit/L LAB CHEMISTRY METHOD 09/29/2024 11:09 AM [facility] Total Protein 6.8 6.0 - 8.0 g/dL LAB CHEMISTRY METHOD 09/29/2024 11:09 AM [facility] Albumin 3.5 3.2 - 5.0 g/dL LAB CHEMISTRY METHOD 09/29/2024 11:09 AM [facility] Total Bilirubin 0.5 0.0 - 1.4 mg/dL LAB CHEMISTRY METHOD 09/29/2024 11:09 AM [facility] Blood Venous blood specimen / Unknown Venipuncture / Unknown 09/29/2024 7:35 AM EST 09/29/2024 10:30 AM EST us Angelo Kasper MD LAB BLOOD ORDERABLES Final Res ult [facility] [address] [place] [address], documented in this encounter Visit Diagnoses Diagnosis Encounter for other general examination documented in this encounter
--- OUTSIDE RECORDS SUMMARY | 2025-06-18 13:30 | XMS_ITS | Clinical Summary ---
Author Organization [facility] Address [address] [place] [address] Care Team Providers Care Cane Cutter Name Role Phone Unavailable Primary Care [...]
== END 2025-06-18 13:31 | disposition home or self-care (01) ==
LOC: HO.HCS 12:58
PROVIDERS: PCP Internal Medicine
DX: I35.0 Nonrheumatic aortic (valve) stenosis (principal); I10 Essential (primary) hypertension; E78.00 Pure hypercholesterolemia, unspecified
CPT/HCPCS: 93010; 99214; G2211

== ENCOUNTER → 2025-06-18 12:57 | Outpatient (BNVA) | payer MEDICARE, OTHER, SELFPAY | PROVIDERS: PCP Internal Medicine | DX: I35.0 Nonrheumatic aortic (valve) stenosis (principal); I10 Essential (primary) hypertension; E78.00 Pure hypercholesterolemia, unspecified | CPT/HCPCS: 93005; 99212 ==

== ENCOUNTER 2025-07-02 12:32 | Outpatient (AMB) | payer MEDICARE, OTHER, SELFPAY ==
[2025-07-02 12:39] VITALS: BP 124/70; PULSE 74; TEMP 36.1; O2SAT 97; BMI 24.5
--- NOTE | 2025-07-02 12:39 | MHC.PC.OV ---
Vital Signs 07/02/25 12:39 Height 5 ft 4.96 in Weight 147 lb 0.773 oz BMI 24.5 BP 124/70 Blood Pressure Location Lt brachial Position Sitting Pulse 74 Pulse Source Pulse Oximeter Temp 97.0 F Temp Source Temporal Artery Scan Pulse Oximetry (%) 97 Oxygen Delivery Method Room Air Intake Visit Reasons: [facility] 06/03 ent referral Allergies alendronate sodium (From FOSAMAX) Allergy (Severe, Verified 07/02/25 12:44) ANAPHYLAXIS lisinopril (LISINOPRIL) Allergy (Severe, Verified 07/02/25 12:44) ANAPHYLAXIS, cough clarithromycin (CLARITHROMYCIN) Allergy (Intermediate, Verified 07/02/25 12:44) CONFUSION, sores on tongue, dry mouth simvastatin (SIMVASTATIN) Allergy (Mild, Verified 07/02/25 12:44) DRY THROAT, achy, confusion Medication List - Last Reconciled 07/02/25 by Renetta Vides MD acetaminophen (Tylenol Extra Strength) 500 mg PO Q6H PRN allopurinol 100 mg PO DAILY amlodipine 5 mg PO DAILY atorvastatin 40 mg PO DAILY bisacodyl 5 mg PO DAILY PRN cholecalciferol (vitamin D3) 125 mcg PO DAILY clopidogrel (Plavix) 75 mg PO DAILY [CMF Bone Stimulator As directed] folic acid 1 mg PO DAILY lactulose 20 grams (30 mL) PO QID PRN meclizine 50 mg PO DAILY PRN meloxicam 15 mg PO DAILY methocarbamol 750 mg PO QID PRN methotrexate sodium 15 mg (6 x 2.5 mg) PO QWEEK metoprolol succinate ER 25 mg PO DAILY montelukast 10 mg PO BEDTIME multivitamin 1 tab PO DAILY olopatadine 0.1% 1 drp ophthalmic (eye) BID PRN pantoprazole 20 mg PO DAILY ropinirole 3 mg PO DAILY@1800 tramadol 50 mg PO Q6-8H PRN vitamin B complex (B Complex-Vitamin B12 tablet) 1 tab PO DAILY Tobacco use date assessed: 07/02/25 Fall risk assessment: No Falls in past year Last assessed Fall Risk: 07/02/25 Dental Screening Dental Screen Date: 07/02/25 Did you have a dental visit in the last 12 months?: No Did you have a dental problem in the last 6 months where you did not have access to dental care?: No Was dental information given to patient?: Patient declined [facility] Medical History (Updated 07/02/25 @ 12:54 by Renetta Vides MD) Vomiting High cholesterol Pre-op chest exam Meniere disease Transient ischemic attack (TIA) Osteoarthritis of shoulders, bilateral Osteoarthritis of carpometacarpal (CMC) joint of right thumb Overweight (BMI 25.0-29.9) Thrush, oral Nondisplaced fracture of fifth metatarsal bone, left foot, subsequent encounter for fracture with nonunion Seropositive rheumatoid arthritis Fracture of 5th metatarsal Fracture of fifth metatarsal bone of right foot Polymyalgia rheumatica Anxiety and depression Lumbar degenerative disc disease Osteoporosis Gout Restless leg syndrome Hypergammaglobulinemia GERD (gastroesophageal reflux disease) Seizure disorder Hypertension Hypercholesterolemia Asthma Peripheral neuropathy Rheumatoid arthritis Surgical History History of surgery (02/07/25) History of bilateral knee replacement Corneal transplant status History of arthroplasty of right hip History of total abdominal hysterectomy History of corneal transplant H/O left knee surgery History of open reduction and internal fixation (ORIF) procedure History of cholecystectomy History of appendectomy Family History Father CVD (cardiovascular disease) Mother No problems noted. Social History Household Members: Significant Other Household Members Other:: parter Housing: House Are you a primary home care attendant to a significant other at home: No Do you presently have visiting nurse or other home services: No Alcohol intake: current Alcohol intake frequency: holidays/special occasions only Alcohol type: wine Comment: counts correct Patient Tobacco Use Status: Never used Tobacco e-Cigarette/Vaping Use: Never Used Second Hand Smoke Exposure: No Advance Directives Date on File: 07/11/23 service: No Current occupational status: retired Cognitive needs: Yes (walker) Hearing needs: Yes Vision needs: Yes Questionnaire PHQ-9 Over the last 2 weeks, how often have you been bothered by any of the following problems? 1. Little interest or pleasure in doing things: several days 2. Feeling down, depressed, or hopeless: several days 3. Trouble falling or staying asleep, or sleeping too much: not at all 4. Feeling tired or having little energy: more than half the days 5. Poor appetite or overeating: not at all 6. Feeling bad about yourself - or that you are a failure or have let yourself or your family down: not at all 7. Trouble concentrating on things, such as reading the newspaper or watching television: several days 8. Moving or speaking so slowly that other people could have noticed. Or the opposite - being so fidgety or restless that you have been moving around a lot more than usual: not at all 9. Thoughts that you would be better off or of hurting yourself in some way: several days Total score: 6 Source: Developed by Drs. Montana Salmon, Annalise Muse, Chris Montana and colleagues, with an educational shiela from [employer]. Thrive Questionnaire Date Thrive assessed: 04/09/25 I am a: Patient What is your living situation today?: I have a steady place to live Within the past 12 months, did the food you bought not last and you didn't have the money to get more?: Never true Within the past 12 months, did you worry whether your food would run out before you got money to buy more?: Never true Do you have trouble paying for medicines?: No Do you have trouble getting transportation to medical appointments?: No Do you have trouble paying your heating and electricity bill?: No Do you have trouble taking care of your child, family member or friend?: No Do you have trouble with day-to-day activities such as bathing, preparing meals, shopping, managing finances, etc.?: No Are you currently unemployed and looking for a job?: No Are you interested in more education?: No Please select the resources that you would like help with: None Currently or been in a relationship where the following occur: No concerns reported THRIVE Score: 0 AUDIT C Alcohol Use Questionnaire (AUDIT-C) 1. How often do you have a drink containing alcohol?: Monthly or less 2. How many drinks containing alcohol do you have on a typical day when you are drinking?: 1 or 2 3. How often do you have six or more drinks on one occasion?: Never Total Score: 1 LIYA-7 AMB Questionnaire LIYA-7 Date LIYA - 7 assessed: 04/09/25 Feeling nervous, anxious, or on edge: 2 = More than half the days Not being able to stop or control worryin = Several days Worrying too much about different things: 1 = Several days Trouble relaxin = Several days Being so restless that it is hard to sit still: 0 = Not at all Becoming easily annoyed or irritable: 0 = Not at all Feeling afraid as if something awful might happen: 0 = Not at all Total LIYA-7 score (0-4 normal; 5-9 mild; 10-14 moderate; 15-21 severe): 5 Source: Developed by Drs. Montana Salmon, Annalise Muse, Chris Montana and colleagues, with an educational shiela from [employer]. Physical exam (Primary Care) Vital Signs: Last Vital Signs Temp 97.0 F 07/02/25 12:39 Pulse 74 07/02/25 12:39 BP 124/70 07/02/25 12:39 Pulse Ox 97 07/02/25 12:39 Oxygen Delivery Method Room Air 07/02/25 12:39 BMI result Body Mass Index 24.5 Tobacco/Smoking Status: Tobacco use Status Tobacco use date assessed 07/02/25 07/02/25 12:47 Patient Tobacco Use Status Never used Tobacco 07/02/25 12:47 e-Cigarette/Vaping Use Never Used 07/02/25 12:47 PHQ-9: PHQ-9 Score PHQ-9: Total score 6 07/02/25 12:54 Thrive Assessment: Date of Thrive Assessment Date Thrive assessed 04/09/25 07/02/25 12:47 Currently or been in a relationship where the following occur: No concerns reported Const General: alert; No acute distress Eyes Conjunctivae: conjunctivae normal Resp Auscultation: clear to auscultation bilaterally Cardio Rate: regular rate Rhythm: regular rhythm GI Inspection: Yes normal to inspection Extrem General: Yes normal to inspection and No edema Coding Level of Care Code Est Pt Level 4 (95265) Diagnoses Essential hypertension I10 Hypertension type: essential hypertension Aortic stenosis, mild I35.0 Hypercholesterolemia E78.00 Gastroesophageal reflux disease without esophagitis K21.9 Esophagitis presence: without esophagitis Seropositive rheumatoid arthritis M05.9 Transient ischemic attack (TIA) G45.9 Mild intermittent asthma without complication J45.20 Asthma complication type: uncomplicated Asthma persistence: intermittent Asthma severity: mild Assessment & Plan Assessment & Plan (1) Hypertension: Code(s): I10 - Essential (primary) hypertension Category: Medical Qualifiers: Hypertension type: essential hypertension Qualified Code(s): I10 - Essential (primary) hypertension Plan: Continue with blood pressure medication. Decrease salt intake and exercise patient is on amlodipine 5 mg once a day metoprolol 25 mg once a day (2) Aortic stenosis, mild: Comment: May 2025 1.39 Code(s): I35.0 - Nonrheumatic aortic (valve) stenosis Category: Medical Plan: Continue to monitor on a yearly basis May 2026 (3) Hypercholesterolemia: Code(s): E78.00 - Pure hypercholesterolemia, unspecified Category: Medical Plan: Avoid fried foods, chicken skin, eggs, butter margarine, pastries and meat. Be it pork or beef they have a lot of cholesterol LDL goal of less than 70 and triglyceride of less than 150. Patient needs blood work (4) GERD (gastroesophageal reflux disease): Code(s): K21.9 - Gastro-esophageal reflux disease without esophagitis Category: Medical Qualifiers: Esophagitis presence: without esophagitis Qualified Code(s): K21.9 - Gastro-esophageal reflux disease without esophagitis Plan: Avoid the foods that causes that usually spicy foods, tomato products, juices, coffee, soda and foods that your sensitive to. After eating do not lie down, allow 3-4 hours before in lie down. And keep the head of bed above 30 degrees to avoid the acid from going up. (5) Seropositive rheumatoid arthritis: Comment: +RF++CCP Methotrexate - 2016-present Xeljanx 11/2019-06/2020 Humira 10/2018-02/2019 Simponi Aria infusions- January 2016 failed Remicade 08/2014-01/2015 failed Enbrel - prior to 2013 failed Code(s): M05.9 - Rheumatoid arthritis with rheumatoid factor, unspecified Category: Medical Plan: Continue with pain medication as well as on methotrexate continue to follow-up with Rheumatology on allopurinol also (6) Transient ischemic attack (TIA): Comment: ER July 2023 with left-sided weakness Code(s): G45.9 - Transient cerebral ischemic attack, unspecified Category: Medical Plan: Patient on Plavix (7) Asthma: Code(s): J45.909 - Unspecified asthma, uncomplicated Category: Medical Qualifiers: Asthma complication type: uncomplicated Asthma persistence: intermittent Asthma severity: mild Qualified Code(s): J45.20 - Mild intermittent asthma, uncomplicated Plan: Stable without inhalers. Plan History of Present Illness The patient is an 85-year-old female presenting for a follow-up visit. She has a history of seizure disorder, hypertension, hypercholesterolemia, asthma, gastroesophageal reflux disease, osteoporosis, rheumatoid arthritis, polymyalgia, and anxiety disorder. The patient has a compression fracture of the lumbar vertebra, which is being monitored. Her last echocardiogram in May 2025 showed aortic stenosis with a valve measurement of 1.39 cm, and she is advised to repeat the echocardiogram in one year. In May, the patient sustained a contusion to the left foot, diagnosed in the emergency room. Her last blood work in February showed normal blood count, electrolytes, renal function, blood sugar, uric acid, and liver function, but vitamin D was low. The patient is on medications including amlodipine, metoprolol, atorvastatin, methotrexate, allopurinol, Plavix, and meclizine. She is advised to continue with her current medications and follow up with rheumatology. Health Maintenance - Blood pressure management with amlodipine and metoprolol - Cholesterol management with atorvastatin, LDL goal less than 70 mg/dL - Vitamin D supplementation due to deficiency - Shingles vaccination recommended - Flu vaccination recommended in August - RSV vaccination recommended Social History Review of Systems Physical Exam Results - Echocardiogram (May 2025): Aortic stenosis with valve measurement of 1.39 cm - Blood work (February): Normal blood count, electrolytes, renal function, blood sugar, uric acid, liver function; low vitamin D - Cholesterol test (January 2024): LDL 51 mg/dL Plan Patient was informed and verbally consented to the use of an ambient scribe for clinic note documentation during this visit. 1. Seizure Disorder The patient continues to manage her seizure disorder with current medications and is advised to maintain regular follow-ups to monitor her condition. 2. Hypertension The patient's blood pressure is stable with the use of amlodipine and metoprolol, and she is advised to continue these medications. 3. Hypercholesterolemia The patient is on atorvastatin with an LDL goal of less than 70 mg/dL, and she requires a new cholesterol test. 4. Asthma The patient's asthma is stable without the need for inhalers at this time. 5. Gastroesophageal Reflux Disease (Gerd) The patient is advised to continue with her current GERD management plan. 6. Osteoporosis The patient is advised to continue monitoring her osteoporosis and maintain her current treatment regimen. 7. Rheumatoid Arthritis The patient is on methotrexate and allopurinol for rheumatoid arthritis and is advised to continue follow-ups with rheumatology. 8. Polymyalgia The patient is advised to continue her current management for polymyalgia. 9. Anxiety Disorder The patient is advised to continue her current management for anxiety disorder. 10. Compression Fracture Of The Lumbar Vertebra The patient is advised to continue monitoring her lumbar compression fracture. 11. Aortic Stenosis The patient is advised to repeat her echocardiogram in one year to monitor aortic stenosis. 12. Contusion Of The Left Foot The patient is advised to monitor her left foot contusion for any changes. 13. Vitamin D Deficiency The patient is advised to continue vitamin D supplementation. Discussion Notes During the visit, we discussed the management of the patient's chronic conditions, including hypertension, hypercholesterolemia, and osteoporosis. The importance of maintaining blood pressure and cholesterol levels within target ranges was emphasized, and the need for vitamin D supplementation was reiterated. We also reviewed the patient's medication regimen and advised continuation of current therapies. Preventative measures such as shingles, flu, and RSV vaccinations were recommended. The patient was advised to monitor her lumbar compression fracture and left foot contusion for any changes. Follow-up with rheumatology and a repeat echocardiogram in one year were also discussed. Patient Instructions - Continue taking all prescribed medications as directed. - Schedule and complete blood work for cholesterol testing. - Monitor for any changes in the lumbar compression fracture and left foot contusion. - Get vaccinated for shingles, flu, and RSV as recommended. - Follow up with rheumatology as scheduled. - Repeat echocardiogram in one year to monitor aortic stenosis. Orders: Orders Complete Blood Count Auto Diff Today M05.9 - Rheumatoid arthritis with rheumatoid factor, unspecified Comprehensive Met. Panel Today M05.9 - Rheumatoid arthritis with rheumatoid factor, unspecified Free T4 (Free Thyroxine) Today I10 - Essential (primary) hypertension Medications: Changed From meclizine 50 mg PO DAILY PRN Nausea To meclizine 25 mg PO DAILY PRN 15 tabs 0RF Nausea
--- OUTSIDE RECORDS SUMMARY | 2025-07-02 13:01 | XMS_ITS | Clinical Summary ---
Author Organization [facility] Address [address] [place] [address] Phone Care Team Providers Care Sales Representative [employer] Name Role Phone Unavailable Primary Care Provider [...] Vaccine ( - 2023-2 5 season) 2024 Depression Screening 11/06/2024 Influenza Vaccine (#1) 2025 HIB Vaccines Aged Out No longer [...]
--- OUTSIDE RECORDS SUMMARY | 2025-07-02 13:01 | XMS_ITS | Encounter Summary ---
Author Organization [facility] Address [address] [place] [address] Care Team Providers Care Glass Furnace Tender Name Role Phone Unavailable Primary Care Provider Unavailabl e Encounter Details Date Type Department Care Team (Late st Contact Info) Description 09/29/2024 Lab Requisition [facility] Lab [address] [place] [address] Angelo Kasper MD [address] [place] [id number] Encounter for other general examination Social History [...] LAB HEMETOLOGY METHOD 09/29/2024 11:08 AM EST [facility] RBC 4.10 3.80 - 4.80 M/mcL LAB HEMETOLOGY METHOD 09/29/2024 11:08 AM [facility] LAB Hemoglobin 12.5 11.5 - 16.0 g/dL LAB HEMETOLOGY METHOD 09/29/2024 11:08 AM [facility] LAB Hematocrit 39.9 35.0 - 47.0 % LAB HEMETOLOGY METHOD 09/29/2024 11:08 AM [facility] LAB MCV 96.8 79.0 - 98.0 FL LAB HEMETOLOGY METHOD 09/29/2024 11:08 AM [facility] LAB MCH 30.3 27.0 - 32.0 pcg LAB HEMETOLOGY METHOD 09/29/2024 11:08 AM [facility] LAB MCHC 31.3(L) 32.0 - 37.0 g/dL LAB HEMETOLOGY METHOD 09/29/2024 11:08 AM [facility] LAB RDW 14.0 11.0 - 15.0 % LAB HEMETOLOGY METHOD 09/29/2024 11:08 AM [facility] LAB Platelets 293 130 - 400 K/mcL LAB HEMETOLOGY METHOD 09/29/2024 11:08 AM [facility] LAB MPV 9.5 7.0 - 11.0 FL LAB HEMETOLOGY METHOD 09/29/2024 11:08 AM [facility] LAB NRBC 0.0 <1.0 % LAB HEMETOLOGY METHOD 09/29/2024 11:08 AM [facility] LAB NRBC Absolute 0.00 <0.10 K/mcL LAB HEMETOLOGY METHOD 09/29/2024 11:08 AM [facility] LAB Neutrophils Relative 54.5 % LAB HEMETOLOGY METHOD 09/29/2024 11:08 AM [facility] LAB Lymphocytes Relative 34.1 % LAB HEMETOLOGY METHOD 09/29/2024 11:08 AM [facility] Monocytes Relative 5.0 % LAB HEMETOLOGY METHOD 09/29/2024 11:08 AM [facility] LAB Eosinophils Relative 4.3 % LAB HEMETOLOGY METHOD 09/29/2024 11:08 AM [facility] LAB Basophils Relative 1.0 % LAB HEMETOLOGY METHOD 09/29/2024 11:08 AM [facility] LAB Immature Granulocytes Relative 1.1 % LAB HEMETOLOGY METHOD 09/29/2024 11:08 AM [facility] LAB Neutrophils Absolute 6.25 1.50 - 7.00 K/mcL LAB HEMETOLOGY METHOD 09/29/2024 11:08 AM [facility] Lymphocytes Absolute 3.93 1.00 - 5.00 K/mcL LAB HEMETOLOGY METHOD 09/29/2024 11:08 AM [facility] Monocytes Absolute 0.58 0.20 - 1.00 K/mcL LAB HEMETOLOGY METHOD 09/29/2024 11:08 AM [facility] LAB Eosinophils Absolute 0.50 0.00 - 0.50 K/mcL LAB HEMETOLOGY METHOD 09/29/2024 11:08 AM [facility] Basophils Absolute 0.12 0.00 - 0.20 K/mcL LAB HEMETOLOGY METHOD 09/29/2024 11:08 AM [facility] LAB Immature Granulocytes Absolute 0.13(H) 0.00 - 0.03 K/mcL LAB HEMETOLOGY METHOD 09/29/2024 11:08 AM [facility] LAB Blood Venous blood specimen / Unknown Venipuncture / Unknown 09/29/2024 7:35 AM EST 09/29/2024 10:30 AM EST us Angelo Kasper MD LAB BLOOD ORDERABLES Final Res ult [facility] [address] [place] [address], [place] [phone] * Magnesium (09/29/2024 7:35 AM EST) [facility] Magnesium 2.1 1.9 - 2.6 mg/dL LAB CHEMISTRY METHOD 09/29/2024 11:09 AM EST [facility] Blood Venous blood specimen / Unknown Venipuncture / Unknown 09/29/2024 7:35 AM EST 09/29/2024 10:30 AM EST us Angelo Kasper MD LAB BLOOD ORDERABLES Final Res ult [facility] [address] [place] [address], [place] [phone] * (ABNORMAL) Comprehensive metabolic panel (09/29/2024 7:35 AM EST) [facility] Sodium 138 133 - 145 mmol/L LAB CHEMISTRY METHOD 09/29/2024 11:09 AM [facility] Potassium 4.8 3.5 - 5.5 mmol/L LAB CHEMISTRY METHOD 09/29/2024 11:09 AM [facility] Chloride 107 96 - 110 mmol/L LAB CHEMISTRY METHOD 09/29/2024 11:09 AM [facility] CO2 24 21 - 32 mmol/L LAB CHEMISTRY METHOD 09/29/2024 11:09 AM [facility] Anion Gap 7 3 - 11 LAB CHEMISTRY METHOD 09/29/2024 11:09 AM [facility] Glucose 75 70 - 100 mg/dL LAB CHEMISTRY METHOD 09/29/2024 11:09 AM [facility] BUN 16 5 - 25 mg/dL LAB CHEMISTRY METHOD 09/29/2024 11:09 AM [facility] Creatinine 0.79 0.50 - 1.10 mg/dL LAB CHEMISTRY METHOD 09/29/2024 11:09 AM [facility] LAB eGFR 73 >=60 mL/min/1. 73m2 LAB CHEMISTRY METHOD 09/29/2024 11:09 AM [facility] LAB Comment:Calculation based on the Chronic Kidney Disease Epidemiology Collaboration (CKD-EPI) equation refit without adjustment for race. BUN/Creatinine Ratio 20.3 LAB CHEMISTRY METHOD 09/29/2024 11:09 AM [facility] Calcium 9.3 8.5 - 10.5 mg/dL LAB CHEMISTRY METHOD 09/29/2024 11:09 AM [facility] AST (SGOT) 29 10 - 42 unit/L LAB CHEMISTRY METHOD 09/29/2024 11:09 AM [facility] ALT (SGPT) 33 10 - 60 unit/L LAB CHEMISTRY METHOD 09/29/2024 11:09 AM [facility] Alkaline Phosphatase 134(H) 42 - 121 unit/L LAB CHEMISTRY METHOD 09/29/2024 11:09 AM [facility] Total Protein 6.8 6.0 - 8.0 g/dL LAB CHEMISTRY METHOD 09/29/2024 11:09 AM [facility] Albumin 3.5 3.2 - 5.0 g/dL LAB CHEMISTRY METHOD 09/29/2024 11:09 AM [facility] Total Bilirubin 0.5 0.0 - 1.4 mg/dL LAB CHEMISTRY METHOD 09/29/2024 11:09 AM [facility] Blood Venous blood specimen / Unknown Venipuncture / Unknown 09/29/2024 7:35 AM EST 09/29/2024 10:30 AM EST us Angelo Kasper MD LAB BLOOD ORDERABLES Final Res ult [facility] [address] [place] [address], documented in this encounter Visit Diagnoses Diagnosis Encounter for other general examination documented in this encounter
--- OUTSIDE RECORDS SUMMARY | 2025-07-02 13:01 | XMS_ITS | Encounter Summary ---
Author Organization [facility] Address [address] [place] [address] Care Team Providers Care Garage Door Installer Name Role Phone Unavailable Primary Care Provider Unavailabl e Encounter Details Date Type Department Care Team (Late st Contact Info) Description 10/11/[address] [facility] Lab [address] [facility] [place] [address] Angelo Kasper MD [address] [place] [address] Encounter for other general examination Social History [...] LAB CHEMISTRY METHOD 10/11/2024 1:13 PM EST [facility] Potassium 4.0 3.5 - 5.5 mmol/L LAB CHEMISTRY METHOD 10/11/2024 1:13 PM EST [facility] Chloride 102 96 - 110 mmol/L LAB CHEMISTRY METHOD 10/11/2024 1:13 PM EST [facility] LAB CO2 23 21 - 32 mmol/L LAB CHEMISTRY METHOD 10/11/2024 1:13 PM EST [facility] LAB Anion Gap 9 3 - 11 LAB CHEMISTRY METHOD 10/11/2024 1:13 PM [facility] Glucose 80 70 - 100 mg/dL LAB CHEMISTRY METHOD 10/11/2024 1:13 PM [facility] BUN 25 5 - 25 mg/dL LAB CHEMISTRY METHOD 10/11/2024 1:13 PM [facility] Creatinine 0.99 0.50 - 1.10 mg/dL LAB CHEMISTRY METHOD 10/11/2024 1:13 PM [facility] LAB eGFR 56(L) >=60 mL/min/1. 73m2 LAB CHEMISTRY METHOD 10/11/2024 1:13 PM [facility] LAB Comment:Calculation based on the Chronic Kidney Disease Epidemiology Collaboration (CKD-EPI) equation refit without adjustment for race. BUN/Creatinine Ratio 25.3 LAB CHEMISTRY METHOD 10/11/2024 1:13 PM [facility] Calcium 8.7 8.5 - 10.5 mg/dL LAB CHEMISTRY METHOD 10/11/2024 1:13 PM [facility] Blood Venous blood specimen / Unknown Venipuncture / Unknown 10/11/2024 7:25 AM EST 10/11/2024 11:51 AM EST us Angelo Kasper MD LAB BLOOD ORDERABLES Final Res ult [facility] LAB [address] [place] [address], documented in this encounter Visit Diagnoses Diagnosis Encounter for other general examination documented in this encounter
--- OUTSIDE RECORDS SUMMARY | 2025-07-02 13:01 | XMS_ITS | Encounter Summary ---
Author Organization [facility] Address [address] [place] [address] Care Team Providers Care Utility Mechanic Supervisor Name Role Phone Unavailable Primary Care Provider Unavailabl e Encounter Details Date Type Department Care Team (Late st Contact Info) Description 10/04/2024 Lab Requisition [facility] - Main Lab [address] [place] [address] Angelo Kasper MD [address] [place] [address] Encounter for other general examination Social History [...] Res ult [facility] LAB [address] [place] [address], [place] [phone] documented in this encounter Visit Diagnoses Diagnosis Encounter for other general examination documented in this encounter
--- OUTSIDE RECORDS SUMMARY | 2025-07-02 13:01 | XMS_ITS | Encounter Summary ---
Author Organization [employer] [facility] Address [address] [place] [address] Care Team Providers Care Video Editing Internship Name Role Phone Unavailable Primary Care Provider Unavailabl e Encounter Details Date Type Department Care Team (Late st Contact Info) Description 10/09/2024 Lab Requisition [facility] Lab [address] [facility] [place] [address] Angelo Kasper MD [address] [place] [address] Encounter for other general examination Social History [...] LAB CHEMISTRY METHOD 10/09/2024 12:04 PM EST [facility] Potassium 4.1 3.5 - 5.5 mmol/L LAB CHEMISTRY METHOD 10/09/2024 12:04 PM EST [facility] Chloride 100 96 - 110 mmol/L LAB CHEMISTRY METHOD 10/09/2024 12:04 PM EST [facility] CO2 26 21 - 32 mmol/L LAB CHEMISTRY METHOD 10/09/2024 12:04 PM EST [facility] LAB Anion Gap 6 3 - 11 LAB CHEMISTRY METHOD 10/09/2024 12:04 PM [facility] Glucose 62(L) 70 - 100 mg/dL LAB CHEMISTRY METHOD 10/09/2024 12:04 PM [facility] BUN 12 5 - 25 mg/dL LAB CHEMISTRY METHOD 10/09/2024 12:04 PM [facility] LAB Creatinine 0.71 0.50 - 1.10 mg/dL LAB CHEMISTRY METHOD 10/09/2024 12:04 PM [facility] LAB eGFR 83 >=60 mL/min/1. 73m2 LAB CHEMISTRY METHOD 10/09/2024 12:04 PM [facility] LAB Comment:Calculation based on the Chronic Kidney Disease Epidemiology Collaboration (CKD-EPI) equation refit without adjustment for race. BUN/Creatinine Ratio 16.9 LAB CHEMISTRY METHOD 10/09/2024 12:04 PM [facility] Calcium 8.8 8.5 - 10.5 mg/dL LAB CHEMISTRY METHOD 10/09/2024 12:04 PM [facility] Blood Venous blood specimen / Unknown Venipuncture / Unknown 10/09/2024 7:03 AM EST 10/09/2024 10:19 AM EST us Angelo Kasper MD LAB BLOOD ORDERABLES Final Res ult [facility] LAB [address] [place] [address], documented in this encounter Visit Diagnoses Diagnosis Encounter for other general examination documented in this encounter
--- OUTSIDE RECORDS SUMMARY | 2025-07-02 13:01 | XMS_ITS | Encounter Summary ---
Author Organization [employer] Address [address] [place] [address] Care Team Providers Care Die Casting Supervisor Name Role Phone Unavailable Primary Care Provider Unavailabl e Encounter Details Date Type Department Care Team (Late st Contact Info) Description 10/04/2024 Lab Requisition [facility] - Main Lab 299 [facility] [place] [address] Angelo Kasper MD [address] [place] [address] [phone] Encounter for other general examination Social History [...] microscopic and culture (10/04/2024 4:00 AM EST) [facility] Specific [place] Urine 1.018 1.003 - 1.030 LAB URINALYSIS [...] ult [facility] LAB [address] [place] [address], [place] [phone] * [place] urine culture tube (10/04/2024 4:00 AM EST) Extra Tube Hold for add-ons. 10/04/2024 11:01 AM EST [facility] LAB Comment:Auto resulted. Urine Urine specimen obtained by clean catch procedure / Unknown Non-blood Collection / Unknown 10/04/2024 4:00 AM EST 10/04/2024 9:37 AM EST us Angelo Kasper MD LAB URINE ORDERABLES Final Res ult [facility] [address] [place] [address], [place] [phone] * Sodium, urine, random (10/04/2024 4:00 AM EST) Sodium, Ur 87 mmol/L LAB CHEMISTRY METHOD 10/04/2024 10:46 AM EST [facility] Urine Urine specimen obtained by clean catch procedure / Unknown Non-blood Collection / Unknown 10/04/2024 4:00 AM EST 10/04/2024 9:37 AM EST us Angelo Kasper MD LAB URINE ORDERABLES Final Res ult [facility] LAB [address] [place] [address], [place] [phone] * Osmolality, urine (10/04/2024 4:00 AM EST) Osmolality, Urine 475 300 - 1,300 mOsm/kg LAB CHEMISTRY METHOD 10/04/2024 10:45 AM EST [facility] Urine Urine specimen obtained by clean catch procedure / Unknown Non-blood Collection / Unknown 10/04/2024 4:00 AM EST 10/04/2024 9:37 AM EST us Angelo Kasper MD LAB URINE ORDERABLES Final Res ult [facility] LAB [address] [place] [address], documented in this encounter Visit Diagnoses Diagnosis Encounter for other general examination documented in this encounter
--- OUTSIDE RECORDS SUMMARY | 2025-07-02 13:01 | XMS_ITS | Encounter Summary ---
Author Organization [facility] Address [address] [place] [address] Care Team Providers Care Hospitality Ambassador Name Role Phone Unavailable Primary Care Provider Unavailabl e Encounter Details Date Type Department Care Team (Late st Contact Info) Description 09/30/2024 Lab Requisition [facility] - Main Lab [address] [place] [address] Angelo Kasper MD [address] [place] [address] [phone] Encounter for other general examination Social History [...] % LAB HEMETOLOGY METHOD 09/30/2024 1:38 PM [facility] MCV 95.1 79.0 - 98.0 FL LAB HEMETOLOGY METHOD 09/30/2024 1:38 PM [facility] MCH 30.4 27.0 - 32.0 pcg LAB HEMETOLOGY METHOD 09/30/2024 1:38 PM EST [facility] MCHC 32.0 32.0 - 37.0 g/dL LAB HEMETOLOGY METHOD 09/30/2024 1:38 PM [facility] RDW 14.1 11.0 - 15.0 % LAB HEMETOLOGY METHOD 09/30/2024 1:38 PM [facility] Platelets 279 130 - 400 K/mcL LAB HEMETOLOGY METHOD 09/30/2024 1:38 PM EST [facility] MPV 9.4 7.0 - 11.0 FL LAB HEMETOLOGY METHOD 09/30/2024 1:38 PM [facility] NRBC 0.0 <1.0 % LAB HEMETOLOGY METHOD 09/30/2024 1:38 PM [facility] NRBC Absolute 0.00 <0.10 K/mcL LAB HEMETOLOGY METHOD 09/30/2024 1:38 PM [facility] Blood Venous blood specimen / Unknown Venipuncture / Unknown 09/30/2024 7:07 AM EST 09/30/2024 1:00 PM EST us Angelo Kasper MD LAB BLOOD ORDERABLES Final Res ult [facility] LAB [address] [place] [address], * (ABNORMAL) Basic metabolic panel (09/30/2024 7:07 AM EST) Sodium 135 133 - 145 mmol/L LAB CHEMISTRY METHOD 09/30/2024 4:17 PM [facility] Potassium 4.6 3.5 - 5.5 mmol/L LAB CHEMISTRY METHOD 09/30/2024 4:17 PM [facility] Chloride 103 96 - 110 mmol/L LAB CHEMISTRY METHOD 09/30/2024 4:17 PM [facility] CO2 25 21 - 32 mmol/L LAB CHEMISTRY METHOD 09/30/2024 4:17 PM [facility] Anion Gap 7 3 - 11 LAB CHEMISTRY METHOD 09/30/2024 4:17 PM [facility] Glucose 60(L) 70 - 100 mg/dL LAB CHEMISTRY METHOD 09/30/2024 4:17 PM [facility] BUN 20 5 - 25 mg/dL LAB CHEMISTRY METHOD 09/30/2024 4:17 PM [facility] Creatinine 0.82 0.50 - 1.10 mg/dL LAB CHEMISTRY METHOD 09/30/2024 4:17 PM [facility] eGFR 70 >=60 mL/min/1. 73m2 LAB CHEMISTRY METHOD 09/30/2024 4:17 PM [facility] Comment:Calculation based on the Chronic Kidney Disease Epidemiology Collaboration (CKD-EPI) equation refit without adjustment for race. BUN/Creatinine Ratio 24.4 LAB CHEMISTRY METHOD 09/30/2024 4:17 PM [facility] Calcium 9.8 8.5 - 10.5 mg/dL LAB CHEMISTRY METHOD 09/30/2024 4:17 PM [facility] Blood Venous blood specimen / Unknown Venipuncture / Unknown 09/30/2024 7:07 AM EST 09/30/2024 1:00 PM EST Angelo Kasper MD LAB BLOOD ORDERABLES Final Res ult [facility] LAB [address] [place] [address], documented in this encounter Visit Diagnoses Diagnosis Encounter for other general examination documented in this encounter
--- OUTSIDE RECORDS SUMMARY | 2025-07-02 13:01 | XMS_ITS | Clinical Summary ---
Author Organization [facility] Address [address] [place] [address] Care Team Providers Care Powdered Metal Supervisor Name Role Phone Unavailable Primary Care [...]
--- OUTSIDE RECORDS SUMMARY | 2025-07-02 13:01 | XMS_ITS | Encounter Summary ---
Author Organization [employer] [facility] Address [address] [place] [address] Care Team Providers Care Production Honing Machine Operator Name Role Phone Unavailable Primary Care Provider Unavailabl e Encounter Details Date Type Department Care Team (Late st Contact Info) Description 10/05/2024 Lab Requisition [facility] - Main Lab 299 [facility] [place] [address] Angelo Kasper MD [address] [place] [address] Encounter for other general examination Social History [...] LAB CHEMISTRY METHOD 10/05/2024 11:02 AM EST [facility] Potassium 4.1 3.5 - 5.5 mmol/L LAB CHEMISTRY METHOD 10/05/2024 11:02 AM EST [facility] Chloride 93(L) 96 - 110 mmol/L LAB CHEMISTRY METHOD 10/05/2024 11:02 AM EST [facility] LAB CO2 27 21 - 32 mmol/L LAB CHEMISTRY METHOD 10/05/2024 11:02 AM EST [facility] LAB Anion Gap 6 3 - 11 LAB CHEMISTRY METHOD 10/05/2024 11:02 AM [facility] LAB Glucose 70 70 - 100 mg/dL LAB CHEMISTRY METHOD 10/05/2024 11:02 AM [facility] BUN 11 5 - 25 mg/dL LAB CHEMISTRY METHOD 10/05/2024 11:02 AM [facility] LAB Creatinine 0.71 0.50 - 1.10 mg/dL LAB CHEMISTRY METHOD 10/05/2024 11:02 AM [facility] LAB eGFR 83 >=60 mL/min/1. 73m2 LAB CHEMISTRY METHOD 10/05/2024 11:02 AM [facility] LAB Comment:Calculation based on the Chronic Kidney Disease Epidemiology Collaboration (CKD-EPI) equation refit without adjustment for race. BUN/Creatinine Ratio 15.5 LAB CHEMISTRY METHOD 10/05/2024 11:02 AM [facility] Calcium 8.6 8.5 - 10.5 mg/dL LAB CHEMISTRY METHOD 10/05/2024 11:02 AM [facility] Blood Venous blood specimen / Unknown Venipuncture / Unknown 10/05/2024 6:03 AM EST 10/05/2024 9:38 AM EST us Angelo Kasper MD LAB BLOOD ORDERABLES Final Res ult [facility] LAB [address] [place] [address], documented in this encounter Visit Diagnoses Diagnosis Encounter for other general examination documented in this encounter
--- OUTSIDE RECORDS SUMMARY | 2025-07-02 13:01 | XMS_ITS | Encounter Summary ---
Author Organization [employer] [facility] Address [address] [place] [address] Care Team Providers Care Rubber And Plastics Worker Name Role Phone Unavailable Primary Care Provider Unavailabl e Encounter Details Date Type Department Care Team (Late st Contact Info) Description 10/07/2024 Lab Requisition [facility] Lab 299 [facility] [place] [address] Angelo Kasper MD [address] [place] [address] Encounter for other general examination Social History [...] LAB CHEMISTRY METHOD 10/07/2024 2:59 PM EST [facility] Potassium 4.2 3.5 - 5.5 mmol/L LAB CHEMISTRY METHOD 10/07/2024 2:59 PM EST [facility] Chloride 98 96 - 110 mmol/L LAB CHEMISTRY METHOD 10/07/2024 2:59 PM EST [facility] CO2 22 21 - 32 mmol/L LAB CHEMISTRY METHOD 10/07/2024 2:59 PM EST [facility] Anion Gap 10 3 - 11 LAB CHEMISTRY METHOD 10/07/2024 2:59 PM EST [facility] Glucose 63(L) 70 - 100 [...] [facility] Comment:Calculation based on the Chronic Kidney Disease Epidemiology Collaboration (CKD-EPI) equation refit without adjustment for race. BUN/Creatinine Ratio 16.4 LAB CHEMISTRY METHOD 10/07/2024 2:59 PM [facility] Calcium 8.3(L) 8.5 - 10.5 mg/dL LAB CHEMISTRY METHOD 10/07/2024 2:59 PM [facility] Blood Venous blood specimen / Unknown 10/07/2024 7:28 AM EST 10/07/2024 12:05 PM EST us Angelo Kasper MD LAB BLOOD ORDERABLES Final Res ult [facility] [address] [place] [address], documented in this encounter Visit Diagnoses Diagnosis Encounter for other general examination documented in this encounter
--- OUTSIDE RECORDS SUMMARY | 2025-07-02 13:01 | XMS_ITS | Encounter Summary ---
Author Organization [facility] [facility] Address [address] [place] [address] Care Team Providers Care Camp Housekeeper Name Role Phone Unavailable Primary Care Provider Unavailabl e Encounter Details Date Type Department Care Team (Late st Contact Info) Description 10/03/2024 Lab Requisition [facility] - Main Lab [address] [place] [address] Angelo Kasper MD [address] [place] [phone] Encounter for other general examination Social History [...] AM EST) WBC 4.2(L) 4.8 - 10.8 K/[facility] LAB HEMETOLOGY METHOD 10/03/2024 11:02 AM EST [facility] RBC 4.00 3.80 - 4.80 M/[facility] LAB HEMETOLOGY METHOD 10/03/2024 11:02 AM [...] ult [facility] LAB [address] [place] [address], * (ABNORMAL) Basic metabolic panel (10/03/2024 6:25 [...] [facility] Comment:Calculation based on the Chronic Kidney Disease Epidemiology Collaboration (CKD-EPI) equation refit without adjustment for race. BUN/Creatinine Ratio 19.4 LAB CHEMISTRY METHOD 10/03/2024 11:21 AM [facility] Calcium 8.9 8.5 - 10.5 mg/dL LAB CHEMISTRY METHOD 10/03/2024 11:21 AM [facility] LAB Blood Venous blood specimen / Unknown Venipuncture / Unknown 10/03/2024 6:25 AM EST 10/03/2024 9:48 AM EST us Angelo Kasper MD LAB BLOOD ORDERABLES Final Res ult [facility] ([facility] LAB [address] [place] [address], documented in this encounter Visit Diagnoses Diagnosis Encounter for other general examination documented in this encounter
--- OUTSIDE RECORDS SUMMARY | 2025-07-02 13:01 | XMS_ITS | Encounter Summary ---
Author Organization [facility] Address [address] [place] [address] Care Team Providers Care Channel Specialist Name Role Phone Unavailable Primary Care Provider Unavailabl e Encounter Details Date Type Department Care Team (Late st Contact Info) Description 10/06/[address] [facility] - Main Lab 299 [facility] [employer] [place] [address] Angelo Kasper MD [address] [place] [address] Encounter for other general examination Social [...] CHEMISTRY METHOD 10/06/2024 9:[address] [facility] Blood Venous blood specimen / Unknown Venipuncture / Unknown 10/06/2024 5:48 AM EST 10/06/2024 6:48 AM EST Narrative [facility] - 10/06/2024 9:33 AM EST [facility] 8 AM SPEC: 5.0-23.0 mcg/dL 4 PM SPEC: 3.0-16.0 mcg/dL 8 PM SPEC: <5.0 mcg/dL Angelo Kasper MD LAB BLOOD ORDERABLES Final Res ult Performing Organization Address City/[facility] [address]/ZIP Co de Phone Number [facility] [address] [place] [address], [place] [phone] * Thyroid stimulating hormone (10/06/2024 5:48 AM EST) Pathologist [facility] TSH 2.14 0.40 - 4.00 mcIU/mL LAB CHEMISTRY METHOD 10/06/2024 8:28 AM EST [facility] Blood Venous blood specimen / Unknown Venipuncture / Unknown 10/06/2024 5:48 AM EST 10/06/2024 6:48 AM EST us Angelo Kasper MD LAB BLOOD ORDERABLES Final Res ult Per[facility] Organization Address City/[facility] [address]/ZIP Co de Phone Number [facility] [address] [place] [address], [place] [phone] * (ABNORMAL) Basic metabolic panel (10/06/2024 5:48 AM EST) Sodium 130(L) 133 - 145 mmol/L LAB CHEMISTRY METHOD 10/06/2024 7:23 AM EST [facility] Potassium 4.0 3.5 - 5.5 mmol/L LAB CHEMISTRY METHOD 10/06/2024 7:23 AM EST [facility] Chloride 98 96 - 110 mmol/L LAB CHEMISTRY METHOD 10/06/2024 7:23 AM EST [facility] CO2 26 21 - 32 mmol/L LAB CHEMISTRY METHOD 10/06/2024 7:23 AM EST [facility] Anion Gap 6 [...] [facility] Comment:Calculation based on the Chronic Kidney Disease Epidemiology Collaboration (CKD-EPI) equation refit without adjustment for race. BUN/Creatinine Ratio 14.5 LAB [...] Res ult [facility] [address] [place] [address], documented in this encounter Visit Diagnoses Diagnosis Encounter for other general examination documented in this encounter
== END 2025-07-02 13:08 | disposition home or self-care (01) ==
LOC: HO.HMCH 12:33
PROVIDERS: PCP Internal Medicine; Visit Provider Internal Medicine
DX: I10 Essential (primary) hypertension (principal); I35.0 Nonrheumatic aortic (valve) stenosis; M05.9 Rheumatoid arthritis with rheumatoid factor, unspecified; E78.00 Pure hypercholesterolemia, unspecified; K21.9 Gastro-esophageal reflux disease without esophagitis; G45.9 Transient cerebral ischemic attack, unspecified; J45.20 Mild intermittent asthma, uncomplicated

== ENCOUNTER → 2025-07-02 12:32 | Outpatient (BNVA) | payer MEDICARE, OTHER, SELFPAY | PROVIDERS: PCP Internal Medicine; Visit Provider Internal Medicine | DX: I10 Essential (primary) hypertension (principal); I35.0 Nonrheumatic aortic (valve) stenosis; E78.00 Pure hypercholesterolemia, unspecified; K21.9 Gastro-esophageal reflux disease without esophagitis; M05.9 Rheumatoid arthritis with rheumatoid factor, unspecified; G45.9 Transient cerebral ischemic attack, unspecified; J45.20 Mild intermittent asthma, uncomplicated | CPT/HCPCS: 99212 ==

== ENCOUNTER 2025-07-10 11:38 | Outpatient (AMB) | payer MEDICARE, OTHER, SELFPAY ==
--- NOTE | 2025-07-10 11:46 | A.OFFVIS_ITS ---
Vital Signs 07/10/25 11:47 Weight 147 lb BP 144/68 H Blood Pressure Location Lt brachial Position Sitting Respiration 18 Pulse 90 Pulse Source Pulse Oximeter Pulse Oximetry (%) 96 Oxygen Delivery Method Room Air Intake Visit Reasons: Meeting with Dr. Swann and [employer] Rep Senior Underwriting Assistant Required: No Allergies alendronate sodium (From FOSAMAX) Allergy (Severe, Verified 07/10/25 11:44) ANAPHYLAXIS lisinopril (LISINOPRIL) Allergy (Severe, Verified 07/10/25 11:44) ANAPHYLAXIS, cough clarithromycin (CLARITHROMYCIN) Allergy (Intermediate, Verified 07/10/25 11:44) CONFUSION, sores on tongue, dry mouth simvastatin (SIMVASTATIN) Allergy (Mild, Verified 07/10/25 11:44) DRY THROAT, achy, confusion HPI Comments Details: Ellie Falcon) is in my office today after the implantation of Curonix PNS bilateral sacroiliac joint innervation. She reports that peripheral nerve stimulator does not help her pain on the left side. The customer operations representative tried multiple attempts to modify the stimulation however there is no improvement. I will send this patient for x-ray of the pelvis to verify if position of the stimulating lead on the left did not change. I will see the patient as soon as possible after the x-rays done, if the lead is dislodged we would need to schedule her for the revision. Prior: Results of the bilateral sacroiliac joint injection. Excellent pain relief on bilateral SI joint diagnostic injection. Patient is 84 years old and suffers from the osteoporosis. Steroid injections are not ideal situation for this patient. Prior: She reports severe pain in the lower lumbar spine. She reports pain exacerbates with flexing forward and lifting things from the ground. On physical examination attention was attracted to signs of sacroiliitis. In the past she received from me diagnostic sacroiliac joint injection with 60% pain improvement. Now she reports severe pain 10/10 today, I feel like I have to perform again diagnostic sacroiliac joint injection. This patient was diagnose recently with L1 compression fracture. There is widespread diffuse osteopenia on her x-rays well. Therefore injection of the steroids will not be a good idea, however we can try peripheral nerve stimulation sprint versus peripheral nerve sprint stimulation cure on X. In regarding of her or diagnostic medial branch block she reported significant pain relieve on the left side immediately after the injection however she reported pain aggravation on the right side due to injection immediately after injection.? However on bilateral sacroiliac joint diagnostic injection on 12/13/2022 she reported 50-60% pain improvement after the injection.? The pain of this patient is most likely multifactorial.? She has significant rheumatoid arthritis which effects her shoulder joints her lumbar spine as well as her sacroiliac joints.? I offered her to perform bilateral sacroiliac joint injection therapeutic this time.? I will schedule this procedure without sedation.? She has an appointment with Dr. Guidry for evaluation of her shoulder pain.? Because of her severe osteopenia I would not recommend steroid injections for this patient. [facility] Medical History (Updated 07/10/25 @ 12:06 by Sotero Swann MD) Vomiting High cholesterol Pre-op chest exam Meniere disease Transient ischemic attack (TIA) Osteoarthritis of shoulders, bilateral Osteoarthritis of carpometacarpal (CMC) joint of right thumb Overweight (BMI 25.0-29.9) Thrush, oral Nondisplaced fracture of fifth metatarsal bone, left foot, subsequent encounter for fracture with nonunion Seropositive rheumatoid arthritis Fracture of 5th metatarsal Fracture of fifth metatarsal bone of right foot Polymyalgia rheumatica Anxiety and depression Lumbar degenerative disc disease Osteoporosis Gout Restless leg syndrome Hypergammaglobulinemia GERD (gastroesophageal reflux disease) Seizure disorder Hypertension Hypercholesterolemia Asthma Peripheral neuropathy Rheumatoid arthritis Surgical History History of surgery (02/07/25) History of bilateral knee replacement Corneal transplant status History of arthroplasty of right hip History of total abdominal hysterectomy History of corneal transplant H/O left knee surgery History of open reduction and internal fixation (ORIF) procedure History of cholecystectomy History of appendectomy Family History Father CVD (cardiovascular disease) Mother No problems noted. Social History Household Members: Significant Other Household Members Other:: parter Housing: House Are you a primary acute care nursing assistant to a significant other at home: No Do you presently have visiting nurse or other home services: No Alcohol intake: current Alcohol intake frequency: holidays/special occasions only Alcohol type: wine Comment: counts correct Patient Tobacco Use Status: Never used Tobacco e-Cigarette/Vaping Use: Never Used Second Hand Smoke Exposure: No Advance Directives Date on File: 07/11/23 service: No Current occupational status: retired Cognitive needs: Yes (walker) Hearing needs: Yes Vision needs: Yes Review of Systems Const All systems reviewed & are unremarkable except as noted in HPI and below Physical Exam Vital Signs: Last Vital Signs Pulse 90 07/10/25 11:47 Resp 18 07/10/25 11:47 BP 144/68 H 07/10/25 11:47 Pulse Ox 96 07/10/25 11:47 Oxygen Delivery Method Room Air 07/10/25 11:47 Const General: cooperative, comfortable and no acute distress Nutritional Appearance: well nourished Orientation/consciousness: patient oriented x3 Limitations: physical limitations Chest Chest palpation & inspection: normal inspection of the chest Resp Effort & Inspection: normal respiratory effort, able to speak in complete sentences, normal respiratory pattern, no audible wheezes, no cough, respiratory effort not decreased, no grunting and not labored Cardio Jugular venous distension: no JVD GI Inspection: Yes normal to inspection Back/Spine/Pelvis Other: Tenderness on palpation in paraspinal spinal region of lumbar spine.. Danial test is negative bilaterally however pelvis compression test, thigh thrust test, Gaenslen test positive bilaterally. Fourteen finger test is positive bilaterally more on the left. Neuro General: patient oriented x3 Assessment & Plan Assessment & Plan (1) Spinal cord stimulator dysfunction: Code(s): T85.192A - Other mechanical complication of implanted electronic neurostimulator of spinal cord electrode (lead), initial encounter Category: Medical (2) Rheumatoid arthritis: Code(s): M06.9 - Rheumatoid arthritis, unspecified Category: Medical (3) Spondylosis of lumbar spine: Code(s): M47.816 - Spondylosis without myelopathy or radiculopathy, lumbar region Category: Medical (4) Sacroiliitis: Code(s): M46.1 - Sacroiliitis, not elsewhere classified Category: Medical (5) Pain of both sacroiliac joints: Code(s): M53.3 - Sacrococcygeal disorders, not elsewhere classified Category: Medical (6) Chronic pain syndrome: Code(s): G89.4 - Chronic pain syndrome Category: Medical (7) Sacroiliac joint dysfunction of both sides: Code(s): M53.3 - Sacrococcygeal disorders, not elsewhere classified Category: Medical (8) Compression fracture of L1 lumbar vertebra: Comment: indeterminate age Code(s): S32.010A - Wedge compression fracture of first lumbar vertebra, initial encounter for closed fracture Category: Medical Plan Medial branch block injection on 12/06/2022 resulted in profound pain relieve on the left side however significant aggravation of the pain on the right side. Sacroiliac joint injection resulted in 50-60% pain improvement on bilateral pain. Repeats diagnostic sacroiliac joint injection resulted in 60-70% pain improvement. Curonix PNS Trial of bilateral stimulation of sacroiliac joint innervation resulted in 75% pain improvement. Implantation of the device was performed and patient reports very good pain relief on the right however she denies pain improvement on the left. After discussion with customer operations representative of [employer] we decided to send her today for the x-ray of the pelvis to verify the position of the electrodes. If they are positioned appropriately no revision is necessary. If there are changes in the positioned the revision on the left electrode could be made. The medial branch block on the left resulted in good pain improvement in the past. We can repeat the medial branch blocks or perform sprint PNS for the medial branches on the left trying to help her pain. Orders: Orders XR pelvis 1-2V Today T85.192A - Other mechanical complication of implanted electronic neurostimulator of spinal cord electrode (lead), initial encounter Coding Level of Care Code Est Pt Level 3 (24505) Diagnoses Spinal cord stimulator dysfunction T85.192A Rheumatoid arthritis M06.9 Spondylosis of lumbar spine M47.816 Sacroiliitis M46.1 Pain of both sacroiliac joints M53.3 Chronic pain syndrome G89.4 Sacroiliac joint dysfunction of both sides M53.3 Compression fracture of L1 lumbar vertebra S32.010A
[2025-07-10 11:47] VITALS: BP 144/68; PULSE 90; RESP 18; O2SAT 96
--- OUTSIDE RECORDS SUMMARY | 2025-07-10 13:19 | XMS_ITS | Encounter Summary ---
Author Organization [facility] Address [address] [place] [address] Care Team Providers Care Towboat Operator Name Role Phone Unavailable Primary Care Provider Unavailabl e Encounter Details Date Type Department Care Team (Late st Contact Info) Description 10/05/2024 Lab Requisition [facility] - Main Lab [address] [facility] [place] [address] Angelo Kasper MD [address] [place] [address] Encounter for other general examination Social History [...] AM [facility] Comment:Calculation based on the Chronic [...] Res ult [facility] [address] [place] [address], documented in this encounter Visit Diagnoses Diagnosis Encounter for other general examination documented in this encounter
--- OUTSIDE RECORDS SUMMARY | 2025-07-10 13:19 | XMS_ITS | Encounter Summary ---
Author Organization [employer] [facility] Address [address] [place] [address] Care Team Providers Care Computer Network Engineer Name Role Phone Unavailable Primary Care Provider Unavailabl e Encounter Details Date Type Department Care Team (Late st Contact Info) Description 10/03/2024 Lab Requisition [facility] - Main Lab [address] [place] [address] Angelo Kasper MD [address] [place] [address] Encounter for other general examination Social History [...] AM EST) WBC 4.2(L) 4.8 - 10.8 K/[facility] LAB HEMETOLOGY METHOD 10/03/2024 11:02 AM EST [facility] RBC 4.00 3.80 - 4.80 M/[facility] LAB HEMETOLOGY METHOD 10/03/2024 11:02 AM [facility] Hemoglobin 12.0 11.5 - 16.0 g/dL LAB HEMETOLOGY METHOD 10/03/2024 11:02 AM [facility] Hematocrit 37.5 35.0 - 47.0 % LAB HEMETOLOGY METHOD 10/03/2024 11:02 AM [facility] MCV 94.5 79.0 - 98.0 FL LAB HEMETOLOGY METHOD 10/03/2024 11:02 AM [facility] MCH 30.2 27.0 - 32.0 pcg LAB HEMETOLOGY METHOD 10/03/2024 11:02 AM [facility] MCHC 32.0 32.0 - 37.0 g/dL LAB HEMETOLOGY METHOD 10/03/2024 11:02 AM [facility] RDW 13.8 11.0 - 15.0 % LAB HEMETOLOGY METHOD 10/03/2024 11:02 AM [facility] Platelets 224 130 - 400 K/mcL LAB HEMETOLOGY METHOD 10/03/2024 11:02 AM [facility] MPV 9.6 7.0 - 11.0 FL LAB HEMETOLOGY METHOD 10/03/2024 11:02 AM [facility] NRBC 0.0 <1.0 % LAB HEMETOLOGY METHOD 10/03/2024 11:02 AM [facility] NRBC Absolute 0.00 <0.10 K/mcL LAB HEMETOLOGY METHOD 10/03/2024 11:02 AM [facility] Neutrophils Relative 57.4 % LAB HEMETOLOGY METHOD 10/03/2024 11:02 AM [facility] Lymphocytes Relative 22.8 % LAB HEMETOLOGY METHOD 10/03/2024 11:02 AM [facility] Monocytes Relative 13.5 % LAB HEMETOLOGY METHOD 10/03/2024 11:02 AM [facility] Eosinophils Relative 3.1 % LAB HEMETOLOGY METHOD 10/03/2024 11:02 AM [facility] Basophils Relative 1.0 % LAB HEMETOLOGY METHOD 10/03/2024 11:02 AM [facility] Immature Granulocytes Relative 2.2 % LAB HEMETOLOGY METHOD 10/03/2024 11:02 AM [facility] Neutrophils Absolute 2.39 1.50 - 7.00 K/mcL LAB HEMETOLOGY METHOD 10/03/2024 11:02 AM [facility] Lymphocytes Absolute 0.95(L) 1.00 - 5.00 K/mcL LAB HEMETOLOGY METHOD 10/03/2024 11:02 AM [facility] Monocytes Absolute 0.56 0.20 - 1.00 K/mcL LAB HEMETOLOGY METHOD 10/03/2024 11:02 AM [facility] Eosinophils Absolute 0.13 0.00 - 0.50 K/mcL LAB HEMETOLOGY METHOD 10/03/2024 11:02 AM [facility] Basophils Absolute 0.04 0.00 - 0.20 K/mcL LAB HEMETOLOGY METHOD 10/03/2024 11:02 AM [facility] Immature Granulocytes Absolute 0.09(H) 0.00 - 0.03 K/mcL LAB HEMETOLOGY METHOD 10/03/2024 11:02 AM [facility] Blood Venous blood specimen / Unknown Venipuncture / Unknown 10/03/2024 6:25 AM EST 10/03/2024 9:48 AM EST us Angelo Kasper MD LAB BLOOD ORDERABLES Final Res ult [facility] [address] [place] [address], * (ABNORMAL) Basic metabolic panel (10/03/2024 6:25 AM EST) Sodium 128(L) 133 - 145 mmol/L LAB CHEMISTRY METHOD 10/03/2024 11:21 AM [facility] Potassium 4.4 3.5 - 5.5 mmol/L LAB CHEMISTRY METHOD 10/03/2024 11:21 AM [facility] Chloride 94(L) 96 - 110 mmol/L LAB CHEMISTRY METHOD 10/03/2024 11:21 AM [facility] CO2 28 21 - 32 mmol/L LAB CHEMISTRY METHOD 10/03/2024 11:21 AM [facility] Anion Gap 6 3 - 11 LAB CHEMISTRY METHOD 10/03/2024 11:21 AM [facility] Glucose 66(L) 70 - 100 mg/dL LAB CHEMISTRY METHOD 10/03/2024 11:21 AM [facility] BUN 13 5 - 25 mg/dL LAB CHEMISTRY METHOD 10/03/2024 11:21 AM [facility] Creatinine 0.67 0.50 - 1.10 mg/dL LAB CHEMISTRY METHOD 10/03/2024 11:21 AM [facility] eGFR 85 >=60 mL/min/1. 73m2 LAB CHEMISTRY METHOD 10/03/2024 11:21 AM [facility] Comment:Calculation based on the Chronic Kidney Disease Epidemiology Collaboration (CKD-EPI) equation refit without adjustment for race. BUN/Creatinine Ratio 19.4 LAB CHEMISTRY METHOD 10/03/2024 11:21 AM [facility] Calcium 8.9 8.5 - 10.5 mg/dL LAB CHEMISTRY METHOD 10/03/2024 11:21 AM [facility] Blood Venous blood specimen / Unknown Venipuncture / Unknown 10/03/2024 6:25 AM EST 10/03/2024 9:48 AM EST us Angelo Kasper MD LAB BLOOD ORDERABLES Final Res ult [facility] [address] [place] [address], documented in this encounter Visit Diagnoses Diagnosis Encounter for other general examination documented in this encounter
--- OUTSIDE RECORDS SUMMARY | 2025-07-10 13:19 | XMS_ITS | Encounter Summary ---
Author Organization [facility] Address [address] [place] [address] Care Team Providers Care Drafter Patent Name Role Phone Unavailable Primary Care Provider Unavailabl e Encounter Details Date Type Department Care Team (Late st Contact Info) Description 10/04/2024 Lab Requisition [facility] - Main Lab [address] [place] [address] Angelo Kasper MD [address] [place] [address] Encounter for other general examination Social History [...] Res ult [facility] [address] [place] [address], [place] [phone] documented in this encounter Visit Diagnoses Diagnosis Encounter for other general examination documented in this encounter
--- OUTSIDE RECORDS SUMMARY | 2025-07-10 13:19 | XMS_ITS | Encounter Summary ---
Author Organization [employer] Address [address] [place] [address] Care Team Providers Care Braid Maker Name Role Phone Unavailable Primary Care Provider Unavailabl e Encounter Details Date Type Department Care Team (Late st Contact Info) Description 10/04/2024 Lab Requisition [facility] - Main Lab [address] [facility] [place] [address] Angelo Kasper MD [address] [place] [phone] Encounter for other general examination Social History [...] microscopic and culture (10/04/2024 4:00 AM EST) [facility] Specific [place] Urine 1.018 1.003 - 1.030 LAB URINALYSIS [...] LAB URINE ORDERABLES Final Res ult [facility] [address] [place] [address], [place] [phone] * Navarro urine culture tube (10/04/2024 4:00 AM EST) Extra Tube Hold for add-ons. 10/04/2024 11:[address] [facility] Comment:Auto resulted. Urine Urine specimen obtained by clean catch procedure / Unknown Non-blood Collection / Unknown 10/04/2024 4:00 AM EST 10/04/2024 9:37 AM EST us Angelo Kasper MD LAB URINE ORDERABLES Final Res ult [facility] [address] [place] [address], [place] [phone] * Sodium, urine, random (10/04/2024 4:00 AM EST) Sodium, Ur 87 mmol/L LAB CHEMISTRY METHOD 10/04/2024 10:[address] [facility] Urine Urine specimen obtained by clean catch procedure / Unknown Non-blood Collection / Unknown 10/04/2024 4:00 AM EST 10/04/2024 9:37 AM EST us Angelo Kasper MD LAB URINE ORDERABLES Final Res ult [facility] [address] [place] [address], [place] [phone] * Osmolality, urine (10/04/2024 4:00 AM EST) Osmolality, Urine 475 300 - 1,300 mOsm/kg LAB CHEMISTRY METHOD 10/04/2024 10:[address] [facility] Urine Urine specimen obtained by clean catch procedure / Unknown Non-blood Collection / Unknown 10/04/2024 4:00 AM EST 10/04/2024 9:37 AM EST us Angelo Kasper MD LAB URINE ORDERABLES Final Res ult [facility] ([facility] [address] [place] [address], documented in this encounter Visit Diagnoses Diagnosis Encounter for other general examination documented in this encounter
--- OUTSIDE RECORDS SUMMARY | 2025-07-10 13:19 | XMS_ITS | Encounter Summary ---
Author Organization [facility] Address [address] [place] [address] Care Team Providers Care Rn Surgical Pcu Name Role Phone Unavailable Primary Care Provider Unavailabl e Encounter Details Date Type Department Care Team (Late st Contact Info) Description 10/06/2024 Lab Requisition [facility] - Main Lab [address] [facility] [employer] [place] [address] Angelo Kasper MD [address] [place] [phone] Encounter for other general examination Social History [...] LAB CHEMISTRY METHOD 10/06/2024 9:33 AM EST [facility] Blood Venous blood specimen / Unknown Venipuncture / Unknown 10/06/2024 5:48 AM EST 10/06/2024 6:48 AM EST Narrative [facility] - 10/06/2024 9:33 AM EST [facility] 8 AM SPEC: 5.0-23.0 mcg/dL 4 PM SPEC: 3.0-16.0 mcg/dL 8 PM SPEC: <5.0 mcg/dL Angelo Kasper MD LAB BLOOD ORDERABLES Final Res ult Performing Organization Address City/[facility]/ZIP Co de Phone Number [facility] [address] [place] [address], [place] [phone] * Thyroid stimulating hormone (10/06/2024 5:48 AM EST) Pathologist [facility] TSH 2.14 0.40 - 4.00 mcIU/mL LAB CHEMISTRY METHOD 10/06/2024 8:28 AM EST [facility] Blood Venous blood specimen / Unknown Venipuncture / Unknown 10/06/2024 5:48 AM EST 10/06/2024 6:48 AM EST us Angelo Kasper MD LAB BLOOD ORDERABLES Final Res ult Performing Organization Address City/[facility]/ZIP Co de Phone Number [facility] [address] [place] [address], [place] [phone] * (ABNORMAL) Basic metabolic panel (10/06/2024 5:48 AM EST) Sodium 130(L) 133 - 145 mmol/L LAB CHEMISTRY METHOD 10/06/2024 7:23 AM EST [facility] Potassium 4.0 3.5 - 5.5 mmol/L LAB CHEMISTRY METHOD 10/06/2024 7:23 AM EST [facility] Chloride 98 96 - 110 mmol/L LAB CHEMISTRY METHOD 10/06/2024 7:23 AM EST [facility] CO2 26 21 - 32 mmol/L LAB CHEMISTRY METHOD 10/06/2024 7:23 AM EST [facility] Anion Gap 6 3 - 11 LAB CHEMISTRY METHOD 10/06/2024 7:23 AM [facility] Glucose 76 70 - 100 mg/dL LAB CHEMISTRY METHOD 10/06/2024 7:23 AM [facility] BUN 9 5 - 25 mg/dL LAB CHEMISTRY METHOD 10/06/2024 7:23 AM [facility] Creatinine 0.62 0.50 - 1.10 mg/dL LAB CHEMISTRY METHOD 10/06/2024 7:23 AM [facility] eGFR 87 >=60 mL/min/1. 73m2 LAB CHEMISTRY METHOD 10/06/2024 7:23 AM [facility] Comment:Calculation based on the Chronic Kidney Disease Epidemiology Collaboration (CKD-EPI) equation refit without adjustment for race. BUN/Creatinine Ratio 14.5 LAB CHEMISTRY METHOD 10/06/2024 7:23 AM [facility] Calcium 8.4(L) 8.5 - 10.5 mg/dL LAB CHEMISTRY METHOD 10/06/2024 7:23 AM [facility] Blood Venous blood specimen / Unknown Venipuncture / Unknown 10/06/2024 5:48 AM EST 10/06/2024 6:48 AM EST us Angelo Kasper MD LAB BLOOD ORDERABLES Final Res ult [facility] [address] [place] [address], documented in this encounter Visit Diagnoses Diagnosis Encounter for other general examination documented in this encounter
--- OUTSIDE RECORDS SUMMARY | 2025-07-10 13:19 | XMS_ITS | Encounter Summary ---
Author Organization [email or web address] [facility] Address [address] [place] [address] Care Team Providers Care Lock Plater Name Role Phone Unavailable Primary Care Provider Unavailabl e Encounter Details Date Type Department Care Team (Late st Contact Info) Description 10/09/2024 Lab Requisition [facility] [address] [facility] [place] [address] Angelo Kasper MD [address] [place] [address] Encounter for other general examination Social History [...] LAB CHEMISTRY METHOD 10/09/2024 12:04 PM EST [facility] Potassium 4.1 3.5 - 5.5 mmol/L LAB CHEMISTRY METHOD 10/09/2024 12:04 PM EST [facility] Chloride 100 96 - 110 mmol/L LAB CHEMISTRY METHOD 10/09/2024 12:04 PM EST [facility] CO2 26 21 - 32 mmol/L LAB CHEMISTRY METHOD 10/09/2024 12:04 PM EST [facility] Anion Gap 6 3 - 11 LAB CHEMISTRY METHOD 10/09/2024 12:04 PM [facility] Glucose 62(L) 70 - 100 mg/dL LAB CHEMISTRY METHOD 10/09/2024 12:04 PM [facility] BUN 12 5 - 25 mg/dL LAB CHEMISTRY METHOD 10/09/2024 12:04 PM [facility] Creatinine 0.71 0.50 - 1.10 mg/dL LAB CHEMISTRY METHOD 10/09/2024 12:04 PM [facility] eGFR 83 >=60 mL/min/1. 73m2 LAB CHEMISTRY METHOD 10/09/2024 12:04 PM [facility] Comment:Calculation based on the Chronic Kidney Disease Epidemiology Collaboration (CKD-EPI) equation refit without adjustment for race. BUN/Creatinine Ratio 16.9 LAB CHEMISTRY METHOD 10/09/2024 12:04 PM [facility] Calcium 8.8 8.5 - 10.5 mg/dL LAB CHEMISTRY METHOD 10/09/2024 12:04 PM [facility] Blood Venous blood specimen / Unknown Venipuncture / Unknown 10/09/2024 7:03 AM EST 10/09/2024 10:19 AM EST us Angelo Kasper MD LAB BLOOD ORDERABLES Final Res ult [facility] [address] [place] [address], documented in this encounter Visit Diagnoses Diagnosis Encounter for other general examination documented in this encounter
--- OUTSIDE RECORDS SUMMARY | 2025-07-10 13:19 | XMS_ITS | Encounter Summary ---
Author Organization [facility] Address [address] [place] [address] Care Team Providers Care Powerhouse Mechanic Apprentice Name Role Phone Unavailable Primary Care Provider Unavailabl e Encounter Details Date Type Department Care Team (Late st Contact Info) Description 10/07/2024 Lab Requisition [facility] Lab [address] [facility] [place] [address] Angelo Kasper MD [address] [place] [phone] Encounter for other general examination Social History [...] mg/dL LAB CHEMISTRY METHOD 10/07/2024 2:59 PM [facility] BUN 9 5 - 25 mg/dL LAB CHEMISTRY METHOD 10/07/2024 2:59 PM [facility] LAB Creatinine 0.55 0.50 - 1.10 mg/dL LAB CHEMISTRY METHOD 10/07/2024 2:59 PM [facility] LAB eGFR 89 >=60 mL/min/1. 73m2 LAB CHEMISTRY METHOD 10/07/2024 2:59 PM [facility] LAB Comment:Calculation based on the Chronic Kidney Disease Epidemiology Collaboration (CKD-EPI) equation refit without adjustment for race. BUN/Creatinine Ratio 16.4 LAB CHEMISTRY METHOD 10/07/2024 2:59 PM [facility] Calcium 8.3(L) 8.5 - 10.5 mg/dL LAB CHEMISTRY METHOD 10/07/2024 2:59 PM [facility] Blood Venous blood specimen / Unknown 10/07/2024 7:28 AM EST 10/07/2024 12:05 PM EST us Angelo Kasper MD LAB BLOOD ORDERABLES Final Res ult [facility] LAB [address] [place] [address], documented in this encounter Visit Diagnoses Diagnosis Encounter for other general examination documented in this encounter
--- OUTSIDE RECORDS SUMMARY | 2025-07-10 13:19 | XMS_ITS | Encounter Summary ---
Author Organization [facility] Address [address] [place] [address] Care Team Providers Care Maintenance Porter Name Role Phone Unavailable Primary Care Provider Unavailabl e Encounter Details Date Type Department Care Team (Late st Contact Info) Description 09/30/2024 Lab Requisition [facility] Lab [address] [place] [address] Angelo Kasper MD [address] [place] [phone] Encounter for other general examination Social History [...] % LAB HEMETOLOGY METHOD 09/30/2024 1:38 PM [facility] MCV 95.1 79.0 - 98.0 FL LAB HEMETOLOGY METHOD 09/30/2024 1:38 PM [facility] LAB MCH 30.4 27.0 - 32.0 pcg LAB HEMETOLOGY METHOD 09/30/2024 1:38 PM EST [facility] LAB MCHC 32.0 32.0 - 37.0 g/dL LAB HEMETOLOGY METHOD 09/30/2024 1:38 PM [facility] LAB RDW 14.1 11.0 - 15.0 % LAB HEMETOLOGY METHOD 09/30/2024 1:38 PM [facility] LAB Platelets 279 130 - 400 K/mcL LAB HEMETOLOGY METHOD 09/30/2024 1:38 PM EST [facility] LAB MPV 9.4 7.0 - 11.0 FL LAB HEMETOLOGY METHOD 09/30/2024 1:38 PM [facility] LAB NRBC 0.0 <1.0 % LAB HEMETOLOGY METHOD 09/30/2024 1:38 PM [facility] LAB NRBC Absolute 0.00 <0.10 K/mcL LAB HEMETOLOGY METHOD 09/30/2024 1:38 PM [facility] Blood Venous blood specimen / Unknown Venipuncture / Unknown 09/30/2024 7:07 AM EST 09/30/2024 1:00 PM EST us Angelo Kasper MD LAB BLOOD ORDERABLES Final Res ult [facility] LAB [address] [place] [address], * (ABNORMAL) Basic metabolic panel (09/30/2024 7:07 AM EST) Sodium 135 133 - 145 mmol/L LAB CHEMISTRY METHOD 09/30/2024 4:17 PM [facility] Potassium 4.6 3.5 - 5.5 mmol/L LAB CHEMISTRY METHOD 09/30/2024 4:17 PM [facility] Chloride 103 96 - 110 mmol/L LAB CHEMISTRY METHOD 09/30/2024 4:17 PM [facility] CO2 25 21 - 32 mmol/L LAB CHEMISTRY METHOD 09/30/2024 4:17 PM [facility] LAB Anion Gap 7 3 - 11 LAB CHEMISTRY METHOD 09/30/2024 4:17 PM [facility] Glucose 60(L) 70 - 100 mg/dL LAB CHEMISTRY METHOD 09/30/2024 4:17 PM [facility] BUN 20 5 - 25 mg/dL LAB CHEMISTRY METHOD 09/30/2024 4:17 PM [facility] Creatinine 0.82 0.50 - 1.10 mg/dL LAB CHEMISTRY METHOD 09/30/2024 4:17 PM [facility] LAB eGFR 70 >=60 mL/min/1. 73m2 LAB CHEMISTRY METHOD 09/30/2024 4:17 PM [facility] Comment:Calculation based on the Chronic Kidney Disease Epidemiology Collaboration (CKD-EPI) equation refit without adjustment for race. BUN/Creatinine Ratio 24.4 LAB CHEMISTRY METHOD 09/30/2024 4:17 PM [facility] Calcium 9.8 8.5 - 10.5 mg/dL LAB CHEMISTRY METHOD 09/30/2024 4:17 PM [facility] Blood Venous blood specimen / Unknown Venipuncture / Unknown 09/30/2024 7:07 AM EST 09/30/2024 1:00 PM EST Angelo Kasper MD LAB BLOOD ORDERABLES Final Res ult [facility] [address] [place] [address], documented in this encounter Visit Diagnoses Diagnosis Encounter for other general examination documented in this encounter
--- OUTSIDE RECORDS SUMMARY | 2025-07-10 13:19 | XMS_ITS | Clinical Summary ---
Author Organization [facility] Address [address] [place] [address] Care Team Providers Care Business Lawyer Name Role Phone Unavailable Primary Care Provider [...] series) 2013 COVID-19 Vaccine (2023-2 5 season) 2025 Influenza (#1) 2025 HPV Vaccine (No Doses [...]
--- OUTSIDE RECORDS SUMMARY | 2025-07-10 13:19 | XMS_ITS | Encounter Summary ---
Author Organization [email or web address] Address [address] [place] [address] Care Team Providers Care Panel Edge Painter Name Role Phone Unavailable Primary Care Provider Unavailabl e Encounter Details Date Type Department Care Team (Late st Contact Info) Description 09/29/2024 Lab Requisition [facility] - Main Lab [address] [place] [address] Angelo Kasper MD [address] [place] [phone] Encounter for other general examination Social History [...] LAB HEMETOLOGY METHOD 09/29/2024 11:08 AM EST [facility] RBC 4.10 3.80 - 4.80 M/mcL LAB HEMETOLOGY METHOD 09/29/2024 11:08 AM [facility] Hemoglobin 12.5 11.5 - 16.0 g/dL LAB HEMETOLOGY METHOD 09/29/2024 11:08 AM [facility] Hematocrit 39.9 35.0 - 47.0 % LAB HEMETOLOGY METHOD 09/29/2024 11:08 AM [facility] MCV 96.8 79.0 - 98.0 FL LAB HEMETOLOGY METHOD 09/29/2024 11:08 AM [facility] MCH 30.3 27.0 - 32.0 pcg LAB HEMETOLOGY METHOD 09/29/2024 11:08 AM [facility] MCHC 31.3(L) 32.0 - 37.0 g/dL LAB HEMETOLOGY METHOD 09/29/2024 11:08 AM [facility] RDW 14.0 11.0 - 15.0 % LAB HEMETOLOGY METHOD 09/29/2024 11:08 AM [facility] Platelets 293 130 - 400 K/mcL LAB HEMETOLOGY METHOD 09/29/2024 11:08 AM [facility] MPV 9.5 7.0 - 11.0 FL LAB HEMETOLOGY METHOD 09/29/2024 11:08 AM [facility] NRBC 0.0 <1.0 % LAB HEMETOLOGY METHOD 09/29/2024 11:08 AM [facility] NRBC Absolute 0.00 <0.10 K/mcL LAB HEMETOLOGY METHOD 09/29/2024 11:08 AM [facility] Neutrophils Relative 54.5 % LAB HEMETOLOGY METHOD 09/29/2024 11:08 AM [facility] Lymphocytes Relative 34.1 % LAB HEMETOLOGY METHOD 09/29/2024 11:08 AM [facility] Monocytes Relative 5.0 % LAB HEMETOLOGY METHOD 09/29/2024 11:08 AM [facility] Eosinophils Relative 4.3 % LAB HEMETOLOGY METHOD 09/29/2024 11:08 AM [facility] Basophils Relative 1.0 % LAB HEMETOLOGY METHOD 09/29/2024 11:08 AM [facility] Immature Granulocytes Relative 1.1 % LAB HEMETOLOGY METHOD 09/29/2024 11:08 AM [facility] Neutrophils Absolute 6.25 1.50 - 7.00 K/mcL LAB HEMETOLOGY METHOD 09/29/2024 11:08 AM [facility] Lymphocytes Absolute 3.93 1.00 - 5.00 K/mcL LAB HEMETOLOGY METHOD 09/29/2024 11:08 AM [facility] Monocytes Absolute 0.58 0.20 - 1.00 K/mcL LAB HEMETOLOGY METHOD 09/29/2024 11:08 AM [facility] Eosinophils Absolute 0.50 0.00 - 0.50 K/mcL LAB HEMETOLOGY METHOD 09/29/2024 11:08 AM [facility] Basophils Absolute 0.12 0.00 - 0.20 K/mcL LAB HEMETOLOGY METHOD 09/29/2024 11:08 AM [facility] Immature Granulocytes Absolute 0.13(H) 0.00 - 0.03 K/mcL LAB HEMETOLOGY METHOD 09/29/2024 11:08 AM [facility] Blood Venous blood specimen / Unknown Venipuncture / Unknown 09/29/2024 7:35 AM EST 09/29/2024 10:30 AM EST us Angelo Kasper MD LAB BLOOD ORDERABLES Final Res ult [facility] LAB [address] [place] [address], [place] [phone] * Magnesium (09/29/2024 7:35 AM EST) [facility] Magnesium 2.1 1.9 - 2.6 mg/dL LAB CHEMISTRY METHOD 09/29/2024 11:09 AM EST [facility] Blood Venous blood specimen / Unknown Venipuncture / Unknown 09/29/2024 7:35 AM EST 09/29/2024 10:30 AM EST us Angelo Kasper MD LAB BLOOD ORDERABLES Final Res ult [facility] [address] [place] [address], [place] [phone] * (ABNORMAL) Comprehensive metabolic panel (09/29/2024 7:35 AM EST) [facility] Sodium 138 133 - 145 mmol/L LAB CHEMISTRY METHOD 09/29/2024 11:09 AM [facility] Potassium 4.8 3.5 - 5.5 mmol/L LAB CHEMISTRY METHOD 09/29/2024 11:09 AM [facility] Chloride 107 96 - 110 [...] [facility] Comment:Calculation based on the Chronic [...] AM [facility] Total Bilirubin 0.5 0.0 - 1.4 mg/dL LAB CHEMISTRY METHOD 09/29/2024 11:09 AM [facility] Blood Venous blood specimen / Unknown Venipuncture / Unknown 09/29/2024 7:35 AM EST 09/29/2024 10:30 AM EST us Angelo Kasper MD LAB BLOOD ORDERABLES Final Res ult [facility] [address] [place] [address], documented in this encounter Visit Diagnoses Diagnosis Encounter for other general examination documented in this encounter
--- OUTSIDE RECORDS SUMMARY | 2025-07-10 13:19 | XMS_ITS | Encounter Summary ---
Author Organization [facility] Address [address] [place] [address] Care Team Providers Care Pals Nurse Name Role Phone Unavailable Primary Care Provider Unavailabl e Encounter Details Date Type Department Care Team (Late st Contact Info) Description 10/11/2024 Lab Requisition [facility] Lab [address] [facility] [place] [address] Angelo Kasper MD [address] [place] [phone] Encounter for other general examination Social History [...] LAB CHEMISTRY METHOD 10/11/2024 1:13 PM EST [facility] Potassium 4.0 3.5 - 5.5 mmol/L LAB CHEMISTRY METHOD 10/11/2024 1:13 PM EST [facility] Chloride 102 96 - 110 mmol/L LAB CHEMISTRY METHOD 10/11/2024 1:13 PM EST [facility] CO2 23 21 - 32 mmol/L LAB CHEMISTRY METHOD 10/11/2024 1:13 PM EST [facility] LAB Anion Gap 9 3 [...] [facility] LAB Comment:Calculation based on the Chronic [...] Res ult [facility] [address] [place] [address], documented in this encounter Visit Diagnoses Diagnosis Encounter for other general examination documented in this encounter
--- OUTSIDE RECORDS SUMMARY | 2025-07-10 13:19 | XMS_ITS | Clinical Summary ---
Author Organization [facility] Address [address] [place] [address] Phone Care Team Providers Care Director Supply Chain Name Role Phone Unavailable Primary Care Provider [...]
== END 2025-07-10 12:04 | disposition home or self-care (01) ==
LOC: HO.PMC 11:39
PROVIDERS: PCP Internal Medicine; Visit Provider Anesthesiology
DX: T85.192A Other mechanical complication of implanted electronic neurostimulator of spinal cord electrode (lead), initial encounter (principal); M06.9 Rheumatoid arthritis, unspecified; M47.816 Spondylosis without myelopathy or radiculopathy, lumbar region; M46.1 Sacroiliitis, not elsewhere classified; M53.3 Sacrococcygeal disorders, not elsewhere classified; G89.4 Chronic pain syndrome; S32.010A Wedge compression fracture of first lumbar vertebra, initial encounter for closed fracture
CPT/HCPCS: 99213

== ENCOUNTER 2025-07-10 11:38 | Outpatient (REF) | payer MEDICARE, OTHER, SELFPAY ==
--- NOTE | ~2025-07-10 | XR_ITS ---
EXAMINATION: XR PELVIS CLINICAL INFORMATION: T85.192A - Other mechanical complication of implanted electronic neurost... COMPARISON: Correlated to CT abdomen pelvis dated July 15, 2023. TECHNIQUE: AP view of the pelvis. Lateral sacrococcyx view.. FINDINGS: Sclerosis along the articular surface of the sacroiliac joints and symphysis pubis. Sclerosis and the articular surface of the left acetabulum with asymmetric joint space narrowing, left coxofemoral joint. 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 Metallic electrodes overlapping the right and left hemisacrum extending up to S2-3 level. Vascular calcifications, aorta and iliac arteries. Levoconvex curvature apex at L2-3. No acute cortical disruption in the sacrococcyx. XR/XR pelvis 1-2V IMPRESSION: No acute fracture. 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 Electrode neurostimulator both sides of the sacrum extending at S2-3 level. Atherosclerosis disease. Electronically signed by: Reggie Hall MD 07/10/2025 01:07 PM EDT
== END 2025-07-10 11:39 | disposition home or self-care (01) ==
LOC: HO.XRAY 11:38
PROVIDERS: PCP Internal Medicine; Visit Provider Anesthesiology
DX: T85.192A Other mechanical complication of implanted electronic neurostimulator of spinal cord electrode (lead), initial encounter (principal); S32.010A Wedge compression fracture of first lumbar vertebra, initial encounter for closed fracture; M06.9 Rheumatoid arthritis, unspecified; M47.816 Spondylosis without myelopathy or radiculopathy, lumbar region; M46.1 Sacroiliitis, not elsewhere classified; M53.3 Sacrococcygeal disorders, not elsewhere classified; G89.4 Chronic pain syndrome
CPT/HCPCS: 72170; 99212

== ENCOUNTER → 2025-07-10 12:30 | Outpatient (BNV) | payer MEDICARE, OTHER, SELFPAY | PROVIDERS: PCP Internal Medicine; Visit Provider Radiology Diagnostic Radiology | DX: M16.12 Unilateral primary osteoarthritis, left hip (principal) | CPT/HCPCS: 72170 ==

== ENCOUNTER 2025-07-24 10:48 | Outpatient (AMB) | payer MEDICARE, OTHER, SELFPAY ==
--- NOTE | 2025-07-24 10:56 | MHC.OFFVIS ---
Vital Signs 07/24/25 10:57 Weight 147 lb BP 132/66 Blood Pressure Location Lt brachial Position Sitting Respiration 18 Pulse 85 Pulse Source Pulse Oximeter Pulse Oximetry (%) 96 Oxygen Delivery Method Room Air Intake Visit Reasons: FU Xray/ Curonix Car Ferry Captain Required: No Allergies alendronate sodium (From FOSAMAX) Allergy (Severe, Verified 07/24/25 10:56) ANAPHYLAXIS lisinopril (LISINOPRIL) Allergy (Severe, Verified 07/24/25 10:56) ANAPHYLAXIS, cough clarithromycin (CLARITHROMYCIN) Allergy (Intermediate, Verified 07/24/25 10:56) CONFUSION, sores on tongue, dry mouth simvastatin (SIMVASTATIN) Allergy (Mild, Verified 07/24/25 10:56) DRY THROAT, achy, confusion HPI Comments Details: Ellie GaleanaJennifer) is in my office today after the implantation of Curonix PNS bilateral sacroiliac joint innervation. Now she continues to report that peripheral nerve stimulation does not help her pain at all. She is stating that peripheral nerve stimulation did not help her from the beginning however immediately after the completion of the procedure she was more satisfied with the device. We did x-ray of her pelvis and it demonstrated dislodged left stimulating lead. In this kind of situation we usually offer patient revision of the device. However it will result again with extended surgery presenting as 3 incisions in the lower back, possibly even longer recovery and not guarantee of the dislodgement of the revised leads. I offered her today alternative low tech solution, she will try to were sacroiliac joint belt. She will be wearing it 29/05. The belt was provided for the patient. She was explained how to put it on. Sacroiliac joint fusion for this patient possibly is not very appropriate solution because of the history of the osteoporosis. I will consider removal of the device and attempt of sprint PNS to treat sacroiliitis and sacroiliac joint pain for this patient if she agrees upon this. Prior: Results of the bilateral sacroiliac joint injection. Excellent pain relief on bilateral SI joint diagnostic injection. Patient is 84 years old and suffers from the osteoporosis. Steroid injections are not ideal situation for this patient. Prior: She reports severe pain in the lower lumbar spine. She reports pain exacerbates with flexing forward and lifting things from the ground. On physical examination attention was attracted to signs of sacroiliitis. In the past she received from me diagnostic sacroiliac joint injection with 60% pain improvement. Now she reports severe pain 10/10 today, I feel like I have to perform again diagnostic sacroiliac joint injection. This patient was diagnose recently with L1 compression fracture. There is widespread diffuse osteopenia on her x-rays well. Therefore injection of the steroids will not be a good idea, however we can try peripheral nerve stimulation sprint versus peripheral nerve sprint stimulation cure on X. In regarding of her or diagnostic medial branch block she reported significant pain relieve on the left side immediately after the injection however she reported pain aggravation on the right side due to injection immediately after injection.? However on bilateral sacroiliac joint diagnostic injection on 12/13/2022 she reported 50-60% pain improvement after the injection.? The pain of this patient is most likely multifactorial.? She has significant rheumatoid arthritis which effects her shoulder joints her lumbar spine as well as her sacroiliac joints.? I offered her to perform bilateral sacroiliac joint injection therapeutic this time.? I will schedule this procedure without sedation.? She has an appointment with Dr. Guidry for evaluation of her shoulder pain.? Because of her severe osteopenia I would not recommend steroid injections for this patient. [facility] Medical History (Updated 07/10/25 @ 12:06 by Sotero Swann MD) Vomiting High cholesterol Pre-op chest exam Meniere disease Transient ischemic attack (TIA) Osteoarthritis of shoulders, bilateral Osteoarthritis of carpometacarpal (CMC) joint of right thumb Overweight (BMI 25.0-29.9) Thrush, oral Nondisplaced fracture of fifth metatarsal bone, left foot, subsequent encounter for fracture with nonunion Seropositive rheumatoid arthritis Fracture of 5th metatarsal Fracture of fifth metatarsal bone of right foot Polymyalgia rheumatica Anxiety and depression Lumbar degenerative disc disease Osteoporosis Gout Restless leg syndrome Hypergammaglobulinemia GERD (gastroesophageal reflux disease) Seizure disorder Hypertension Hypercholesterolemia Asthma Peripheral neuropathy Rheumatoid arthritis Surgical History History of surgery (02/07/25) History of bilateral knee replacement Corneal transplant status History of arthroplasty of right hip History of total abdominal hysterectomy History of corneal transplant H/O left knee surgery History of open reduction and internal fixation (ORIF) procedure History of cholecystectomy History of appendectomy Family History Father CVD (cardiovascular disease) Mother No problems noted. Social History Household Members: Significant Other Household Members Other:: parter Housing: House Are you a primary palliative care physician to a significant other at home: No Do you presently have visiting nurse or other home services: No Alcohol intake: current Alcohol intake frequency: holidays/special occasions only Alcohol type: wine Comment: counts correct Patient Tobacco Use Status: Never used Tobacco e-Cigarette/Vaping Use: Never Used Second Hand Smoke Exposure: No Advance Directives Date on File: 07/11/23 service: No Current occupational status: retired Cognitive needs: Yes (walker) Hearing needs: Yes Vision needs: Yes Review of Systems Const All systems reviewed & are unremarkable except as noted in HPI and below Physical Exam Vital Signs: Last Vital Signs Pulse 85 07/24/25 10:57 Resp 18 07/24/25 10:57 BP 132/66 07/24/25 10:57 Pulse Ox 96 07/24/25 10:57 Oxygen Delivery Method Room Air 07/24/25 10:57 Const General: cooperative, comfortable and no acute distress Nutritional Appearance: well nourished Orientation/consciousness: patient oriented x3 Limitations: physical limitations Chest Chest palpation & inspection: normal inspection of the chest Resp Effort & Inspection: normal respiratory effort, able to speak in complete sentences, normal respiratory pattern, no audible wheezes, no cough, respiratory effort not decreased, no grunting and not labored Cardio Jugular venous distension: no JVD GI Inspection: Yes normal to inspection Back/Spine/Pelvis Other: Tenderness on palpation in paraspinal spinal region of lumbar spine.. Danial test is negative bilaterally however pelvis compression test, thigh thrust test, Gaenslen test positive bilaterally. Fourteen finger test is positive bilaterally more on the left. Neuro General: patient oriented x3 Assessment & Plan Assessment & Plan (1) Spinal cord stimulator dysfunction: Code(s): T85.192A - Other mechanical complication of implanted electronic neurostimulator of spinal cord electrode (lead), initial encounter Category: Medical (2) Rheumatoid arthritis: Code(s): M06.9 - Rheumatoid arthritis, unspecified Category: Medical (3) Spondylosis of lumbar spine: Code(s): M47.816 - Spondylosis without myelopathy or radiculopathy, lumbar region Category: Medical (4) Sacroiliitis: Code(s): M46.1 - Sacroiliitis, not elsewhere classified Category: Medical (5) Pain of both sacroiliac joints: Code(s): M53.3 - Sacrococcygeal disorders, not elsewhere classified Category: Medical (6) Chronic pain syndrome: Code(s): G89.4 - Chronic pain syndrome Category: Medical (7) Sacroiliac joint dysfunction of both sides: Code(s): M53.3 - Sacrococcygeal disorders, not elsewhere classified Category: Medical (8) Compression fracture of L1 lumbar vertebra: Comment: indeterminate age Code(s): S32.010A - Wedge compression fracture of first lumbar vertebra, initial encounter for closed fracture Category: Medical Plan Medial branch block injection on 12/06/2022 resulted in profound pain relieve on the left side however significant aggravation of the pain on the right side. Sacroiliac joint injection resulted in 50-60% pain improvement on bilateral pain. Repeats diagnostic sacroiliac joint injection resulted in 60-70% pain improvement. Curonix PNS Trial of bilateral stimulation of sacroiliac joint innervation resulted in 75% pain improvement. Implantation of the device was performed and patient reports very good pain relief on the right however she denies pain improvement on the left. She went for x-ray in, it demonstrated left lead displacement. I can offer her the revision however I am somewhat hesitant to go for revision of the device for this 85 years old female. Same thing is with sacroiliac joint fusion-her osteoporosis is not a help in this situation. I offered her today sacroiliac joint belt with possibility of treating her pain with this simple device. The device was provided to the patient. She reported understanding on how to put device on. Patient Instructions: I here by testify that I spent 30 minutes in conversation with this patient as well as evaluating her prior records and prior diagnostic studies, planning her care, and organizing this note. Coding Level of Care Code Est Pt Level 4 (14293) Diagnoses Spinal cord stimulator dysfunction T85.192A Rheumatoid arthritis M06.9 Spondylosis of lumbar spine M47.816 Sacroiliitis M46.1 Pain of both sacroiliac joints M53.3 Chronic pain syndrome G89.4 Sacroiliac joint dysfunction of both sides M53.3 Compression fracture of L1 lumbar vertebra S32.010A
[2025-07-24 10:57] VITALS: BP 132/66; PULSE 85; RESP 18; O2SAT 96
--- OUTSIDE RECORDS SUMMARY | 2025-07-24 12:55 | XMS_ITS | Clinical Summary ---
Author Organization [facility] Address [address] [place] [address] Care Team Providers Care Appliance Tester Name Role Phone Unavailable Primary Care [...] COVID-19 Vaccine ( - 2023-2 5 season) 2025 Influenza (#1) 2025 HPV [...]
--- OUTSIDE RECORDS SUMMARY | 2025-07-24 12:55 | XMS_ITS | Encounter Summary ---
[facility] Organization [facility] Address [address] [place] [address] Care Team Providers Care Checkout Operator Name Role Phone Unavailable Primary Care Provider Unavailabl e Encounter Details Date Type Department Care Team (Late st Contact Info) Description 10/06/[address] [facility] - Main Lab 299 [facility] [place] [address] Angelo Kasper MD [address] [place] [phone] Encounter for other general examination Social History [...] LAB CHEMISTRY METHOD 10/06/2024 9:33 AM EST [facility] ([facility] Blood Venous blood specimen / Unknown Venipuncture / Unknown 10/06/2024 5:48 AM EST 10/06/2024 6:48 AM EST Narrative [facility] - 10/06/2024 9:33 AM EST [facility] 8 AM SPEC: 5.0-23.0 mcg/dL 4 PM SPEC: 3.0-16.0 mcg/dL 8 PM SPEC: <5.0 mcg/dL Angelo Kasper MD LAB BLOOD ORDERABLES Final Res ult Performing Organization Address City/[facility]/ZIP Co de Phone Number [facility] [address] [place] [address], [place] [phone] * Thyroid stimulating hormone (10/06/2024 5:48 AM EST) Pathologist [facility] TSH 2.14 0.40 - 4.00 mcIU/mL LAB CHEMISTRY METHOD 10/06/2024 8:28 AM EST [facility] Blood Venous blood specimen / Unknown Venipuncture / Unknown 10/06/2024 5:48 AM EST 10/06/2024 6:48 AM EST us Angelo Kasper MD LAB BLOOD ORDERABLES Final Res ult Performing Organization Address City/[facility]/ZIP Co de Phone Number [facility] [address] [place] [address], [place] [phone] * (ABNORMAL) Basic metabolic panel (10/06/2024 5:48 AM EST) Sodium 130(L) 133 - 145 mmol/L LAB CHEMISTRY METHOD 10/06/2024 7:23 AM EST [facility] Potassium 4.0 3.5 - 5.5 mmol/L LAB CHEMISTRY METHOD 10/06/2024 7:23 AM EST [facility] Chloride 98 96 - 110 mmol/L LAB CHEMISTRY METHOD 10/06/2024 7:23 AM EST [facility] CO2 26 21 - 32 mmol/L LAB CHEMISTRY METHOD 10/06/2024 7:23 AM EST [facility] Anion Gap 6 3 - 11 LAB CHEMISTRY METHOD 10/06/2024 7:23 AM [facility] Glucose 76 70 - 100 mg/dL LAB CHEMISTRY METHOD 10/06/2024 7:23 AM [facility] BUN 9 5 - 25 mg/dL LAB CHEMISTRY METHOD 10/06/2024 7:23 AM [facility] Creatinine 0.62 0.50 - 1.10 mg/dL LAB CHEMISTRY METHOD 10/06/2024 7:23 AM [facility] eGFR 87 >=60 mL/min/1. 73m2 LAB CHEMISTRY METHOD 10/06/2024 7:23 AM [facility] Comment:Calculation based on the Chronic Kidney Disease Epidemiology Collaboration (CKD-EPI) equation refit without adjustment for race. BUN/Creatinine Ratio 14.5 LAB CHEMISTRY METHOD 10/06/2024 7:23 AM [facility] Calcium 8.4(L) 8.5 - 10.5 mg/dL LAB CHEMISTRY METHOD 10/06/2024 7:23 AM [facility] Blood Venous blood specimen / Unknown Venipuncture / Unknown 10/06/2024 5:48 AM EST 10/06/2024 6:48 AM EST us Angelo Kasper MD LAB BLOOD ORDERABLES Final Res ult [facility] [address] [place] [address], documented in this encounter Visit Diagnoses Diagnosis Encounter for other general examination documented in this encounter
--- OUTSIDE RECORDS SUMMARY | 2025-07-24 12:55 | XMS_ITS | Clinical Summary ---
Author Organization 299 [facility] Address [address] [place] [address] Phone Care Team Providers Care Graphic Design Intern Name Role Phone Unavailable Primary Care Provider [...] nts (1 - 1-dose 75+ series) 2013 Depression Screening 11/06/2024 COVID-19 Vaccine (1 - 2023-2 5 season) 2025 Influenza Vaccine (#1) 2025 HIB Vaccines Aged [...]
--- OUTSIDE RECORDS SUMMARY | 2025-07-24 12:55 | XMS_ITS | Encounter Summary ---
Author Organization [facility] Address [address] [place] [address] Care Team Providers Care Aeronautical Engineer Name Role Phone Unavailable Primary Care Provider Unavailabl e Encounter Details Date Type Department Care Team (Late st Contact Info) Description 10/05/2024 Lab Requisition [facility] - Main Lab 299 [facility] [employer] [place] [address] Angelo Kasper MD [address] [place] [address] Encounter for other general examination Social History [...] LAB CHEMISTRY METHOD 10/05/2024 11:02 AM EST [facility] Potassium 4.1 3.5 - 5.5 mmol/L LAB CHEMISTRY METHOD 10/05/2024 11:02 AM EST [facility] Chloride 93(L) 96 - 110 mmol/L LAB CHEMISTRY METHOD 10/05/2024 11:02 AM EST [facility] CO2 27 21 - 32 mmol/L LAB CHEMISTRY METHOD 10/05/2024 11:02 AM EST [facility] Anion Gap 6 3 - 11 LAB CHEMISTRY METHOD 10/05/2024 11:02 AM [facility] Glucose 70 70 - 100 mg/dL LAB CHEMISTRY METHOD 10/05/2024 11:02 AM [facility] BUN 11 5 - 25 mg/dL LAB CHEMISTRY METHOD 10/05/2024 11:02 AM [facility] Creatinine 0.71 0.50 - 1.10 mg/dL LAB CHEMISTRY METHOD 10/05/2024 11:02 AM [facility] eGFR 83 >=60 mL/min/1. 73m2 LAB CHEMISTRY METHOD 10/05/2024 11:02 AM [facility] Comment:Calculation based on the Chronic Kidney Disease Epidemiology Collaboration (CKD-EPI) equation refit without adjustment for race. BUN/Creatinine Ratio 15.5 LAB CHEMISTRY METHOD 10/05/2024 11:02 AM [facility] Calcium 8.6 8.5 - 10.5 mg/dL LAB CHEMISTRY METHOD 10/05/2024 11:02 AM [facility] Blood Venous blood specimen / Unknown Venipuncture / Unknown 10/05/2024 6:03 AM EST 10/05/2024 9:38 AM EST us Angelo Kasper MD LAB BLOOD ORDERABLES Final Res ult [facility] [address] [place] [address], documented in this encounter Visit Diagnoses Diagnosis Encounter for other general examination documented in this encounter
--- OUTSIDE RECORDS SUMMARY | 2025-07-24 12:55 | XMS_ITS | Encounter Summary ---
Author Organization [employer] [facility] Address [address] [place] [address] Care Team Providers Care Structural Rigger Name Role Phone Unavailable Primary Care Provider Unavailabl e Encounter Details Date Type Department Care Team (Late st Contact Info) Description 09/29/2024 Lab Requisition [facility] - Main Lab [address] [place] [address] Angelo Kasper MD [address] [place] [address] Encounter for other general examination Social History [...] LAB HEMETOLOGY METHOD 09/29/2024 11:08 AM EST [facility] RBC 4.10 3.80 - 4.80 M/mcL LAB HEMETOLOGY METHOD 09/29/2024 11:08 AM [facility] Hemoglobin 12.5 11.5 - 16.0 g/dL LAB HEMETOLOGY METHOD 09/29/2024 11:08 AM [facility] LAB Hematocrit 39.9 35.0 - 47.0 % LAB HEMETOLOGY METHOD 09/29/2024 11:08 AM [facility] LAB MCV 96.8 79.0 - 98.0 FL LAB HEMETOLOGY METHOD 09/29/2024 11:08 AM [facility] MCH 30.3 27.0 - 32.0 pcg LAB HEMETOLOGY METHOD 09/29/2024 11:08 AM [facility] MCHC 31.3(L) 32.0 - 37.0 g/dL LAB HEMETOLOGY METHOD 09/29/2024 11:08 AM [facility] RDW 14.0 11.0 - 15.0 % LAB HEMETOLOGY METHOD 09/29/2024 11:08 AM [facility] Platelets 293 130 - 400 K/mcL LAB HEMETOLOGY METHOD 09/29/2024 11:08 AM [facility] MPV 9.5 7.0 - 11.0 FL LAB HEMETOLOGY METHOD 09/29/2024 11:08 AM [facility] NRBC 0.0 <1.0 % LAB HEMETOLOGY METHOD 09/29/2024 11:08 AM [facility] NRBC Absolute 0.00 <0.10 K/mcL LAB HEMETOLOGY METHOD 09/29/2024 11:08 AM [facility] Neutrophils Relative 54.5 % LAB HEMETOLOGY METHOD 09/29/2024 11:08 AM [facility] Lymphocytes Relative 34.1 % LAB HEMETOLOGY METHOD 09/29/2024 11:08 AM [facility] Monocytes Relative 5.0 % LAB HEMETOLOGY METHOD 09/29/2024 11:08 AM [facility] Eosinophils Relative 4.3 % LAB HEMETOLOGY METHOD 09/29/2024 11:08 AM [facility] Basophils Relative 1.0 % LAB HEMETOLOGY METHOD 09/29/2024 11:08 AM [facility] Immature Granulocytes Relative 1.1 % LAB HEMETOLOGY METHOD 09/29/2024 11:08 AM [facility] Neutrophils Absolute 6.25 1.50 - 7.00 K/mcL LAB HEMETOLOGY METHOD 09/29/2024 11:08 AM [facility] Lymphocytes Absolute 3.93 1.00 - 5.00 K/mcL LAB HEMETOLOGY METHOD 09/29/2024 11:08 AM [facility] Monocytes Absolute 0.58 0.20 - 1.00 K/mcL LAB HEMETOLOGY METHOD 09/29/2024 11:08 AM [facility] Eosinophils Absolute 0.50 0.00 - 0.50 K/mcL LAB HEMETOLOGY METHOD 09/29/2024 11:08 AM [facility] Basophils Absolute 0.12 0.00 - 0.20 K/mcL LAB HEMETOLOGY METHOD 09/29/2024 11:08 AM [facility] Immature Granulocytes Absolute 0.13(H) 0.00 - 0.03 K/mcL LAB HEMETOLOGY METHOD 09/29/2024 11:08 AM [facility] Blood Venous blood specimen / Unknown Venipuncture / Unknown 09/29/2024 7:35 AM EST 09/29/2024 10:30 AM EST us Angelo Kasper MD LAB BLOOD ORDERABLES Final Res ult [facility] [address] [place] [address], [place] [phone] * Magnesium (09/29/2024 7:35 AM EST) [facility] Magnesium 2.1 1.9 - 2.6 mg/dL LAB CHEMISTRY METHOD 09/29/2024 11:09 AM EST [facility] Blood Venous blood specimen / Unknown Venipuncture / Unknown 09/29/2024 7:35 AM EST 09/29/2024 10:30 AM EST us Angelo Kasper MD LAB BLOOD ORDERABLES Final Res ult [facility] [address] [place] [address], [place] [phone] * (ABNORMAL) Comprehensive metabolic panel (09/29/2024 7:35 AM EST) [facility] Sodium 138 133 - 145 mmol/L LAB CHEMISTRY METHOD 09/29/2024 11:09 AM [facility] Potassium 4.8 3.5 - 5.5 mmol/L LAB CHEMISTRY METHOD 09/29/2024 11:09 AM [facility] Chloride 107 96 - 110 mmol/L LAB CHEMISTRY METHOD 09/29/2024 11:09 AM [facility] CO2 24 21 - 32 mmol/L LAB CHEMISTRY METHOD 09/29/2024 11:09 AM [facility] Anion Gap 7 3 - 11 LAB CHEMISTRY METHOD 09/29/2024 11:09 AM [facility] Glucose 75 70 - 100 mg/dL LAB CHEMISTRY METHOD 09/29/2024 11:09 AM [facility] BUN 16 5 - 25 mg/dL LAB CHEMISTRY METHOD 09/29/2024 11:09 AM [facility] Creatinine 0.79 0.50 - 1.10 mg/dL LAB CHEMISTRY METHOD 09/29/2024 11:09 AM [facility] eGFR 73 >=60 mL/min/1. 73m2 LAB CHEMISTRY METHOD 09/29/2024 11:09 AM [facility] Comment:Calculation based on the Chronic Kidney Disease Epidemiology Collaboration (CKD-EPI) equation refit without adjustment for race. BUN/Creatinine Ratio 20.3 LAB CHEMISTRY METHOD 09/29/2024 11:09 AM [facility] Calcium 9.3 8.5 - 10.5 mg/dL LAB CHEMISTRY METHOD 09/29/2024 11:09 AM [facility] AST (SGOT) 29 10 - 42 unit/L LAB CHEMISTRY METHOD 09/29/2024 11:09 AM [facility] ALT (SGPT) 33 10 - 60 unit/L LAB CHEMISTRY METHOD 09/29/2024 11:09 AM [facility] Alkaline Phosphatase 134(H) 42 - 121 unit/L LAB CHEMISTRY METHOD 09/29/2024 11:09 AM [facility] Total Protein 6.8 6.0 - 8.0 g/dL LAB CHEMISTRY METHOD 09/29/2024 11:09 AM [facility] Albumin 3.5 3.2 - 5.0 g/dL LAB CHEMISTRY METHOD 09/29/2024 11:09 AM [facility] Total Bilirubin 0.5 0.0 - 1.4 mg/dL LAB CHEMISTRY METHOD 09/29/2024 11:09 AM [facility] Blood Venous blood specimen / Unknown Venipuncture / Unknown 09/29/2024 7:35 AM EST 09/29/2024 10:30 AM EST us Angelo Kaspre MD LAB BLOOD ORDERABLES Final Res ult [facility] [address] [place] [address], documented in this encounter Visit Diagnoses Diagnosis Encounter for other general examination documented in this encounter
--- OUTSIDE RECORDS SUMMARY | 2025-07-24 12:55 | XMS_ITS | Encounter Summary ---
Author Organization [facility] Address [address] [place] [address] Care Team Providers Care Wellness Program Administrator Name Role Phone Unavailable Primary Care Provider Unavailabl e Encounter Details Date Type Department Care Team (Late st Contact Info) Description 10/04/2024 Lab Requisition [facility] - Main Lab 299 [facility] [place] [address] Angelo Kasper MD [address] [place] [address] [phone] Encounter for other general examination Social History [...] microscopic and culture (10/04/2024 4:00 AM EST) [facility] Specific [place] Urine 1.018 1.003 - 1.030 LAB URINALYSIS [...] Res ult [facility] [address] [place] [address], [place] [phone] * Navarro urine culture tube (10/04/2024 4:00 AM EST) Extra Tube Hold for add-ons. 10/04/2024 11:[address] [facility] LAB Comment:Auto resulted. Urine Urine specimen obtained by clean catch procedure / Unknown Non-blood Collection / Unknown 10/04/2024 4:00 AM EST 10/04/2024 9:37 AM EST us Angelo Kasper MD LAB URINE ORDERABLES Final Res ult [facility] [address] [place] [address], [place] [phone] * Sodium, urine, random (10/04/2024 4:00 AM EST) Sodium, Ur 87 mmol/L LAB CHEMISTRY METHOD 10/04/2024 10:[address] [facility] Urine Urine specimen obtained by clean catch procedure / Unknown Non-blood Collection / Unknown 10/04/2024 4:00 AM EST 10/04/2024 9:37 AM EST us Angelo Kasper MD LAB URINE ORDERABLES Final Res ult [facility] [address] [place] [address], [place] [phone] * Osmolality, urine (10/04/2024 4:00 AM EST) Osmolality, Urine 475 300 - 1,300 mOsm/kg LAB CHEMISTRY METHOD 10/04/2024 10:[address] [facility] Urine Urine specimen obtained by clean catch procedure / Unknown Non-blood Collection / Unknown 10/04/2024 4:00 AM EST 10/04/2024 9:37 AM EST us Angelo Kasper MD LAB URINE ORDERABLES Final Res ult [facility] ([facility] [address] [place] [address], documented in this encounter Visit Diagnoses Diagnosis Encounter for other general examination documented in this encounter
--- OUTSIDE RECORDS SUMMARY | 2025-07-24 12:55 | XMS_ITS | Encounter Summary ---
Author Organization [facility] Address [address] [place] [address] Care Team Providers Care Veterinary Livestock Inspector Name Role Phone Unavailable Primary Care Provider Unavailabl e Encounter Details Date Type Department Care Team (Late st Contact Info) Description 10/04/2024 Lab Requisition [facility] - Main Lab [address] [place] [address] Angelo Kasper MD [address] [place] [address] Encounter for other general examination Social History [...] ult [facility] [address] [place] [address], [place] [phone] documented in this encounter Visit Diagnoses Diagnosis Encounter for other general examination documented in this encounter
--- OUTSIDE RECORDS SUMMARY | 2025-07-24 12:56 | XMS_ITS | Encounter Summary ---
Author Organization [facility] Address [address] [place] [address] Care Team Providers Care Air Conditioning Supervisor Name Role Phone Unavailable Primary Care Provider Unavailabl e Encounter Details Date Type Department Care Team (Late st Contact Info) Description 10/07/2024 Lab Requisition [facility] Lab 299 [facility] [place] [address] Angelo Kasper MD [address] [place] [address] Encounter for other general examination Social History [...] LAB CHEMISTRY METHOD 10/07/2024 2:59 PM EST [facility] Potassium 4.2 3.5 - 5.5 mmol/L LAB CHEMISTRY METHOD 10/07/2024 2:59 PM EST [facility] Chloride 98 96 - 110 mmol/L LAB CHEMISTRY METHOD 10/07/2024 2:59 PM EST [facility] CO2 22 21 - 32 mmol/L LAB CHEMISTRY METHOD 10/07/2024 2:59 PM EST [facility] Anion Gap 10 3 - 11 LAB CHEMISTRY METHOD 10/07/2024 2:59 PM EST [facility] Glucose 63(L) 70 - 100 mg/dL LAB CHEMISTRY METHOD 10/07/2024 2:59 PM [facility] BUN 9 5 - 25 mg/dL LAB CHEMISTRY METHOD 10/07/2024 2:59 PM [facility] Creatinine 0.55 0.50 - 1.10 mg/dL LAB CHEMISTRY METHOD 10/07/2024 2:59 PM [facility] eGFR 89 >=60 mL/min/1. 73m2 LAB CHEMISTRY METHOD 10/07/2024 2:59 PM [facility] Comment:Calculation based on the Chronic Kidney Disease Epidemiology Collaboration (CKD-EPI) equation refit without adjustment for race. BUN/Creatinine Ratio 16.4 LAB CHEMISTRY METHOD 10/07/2024 2:59 PM [facility] Calcium 8.3(L) 8.5 - 10.5 mg/dL LAB CHEMISTRY METHOD 10/07/2024 2:59 PM [facility] Blood Venous blood specimen / Unknown 10/07/2024 7:28 AM EST 10/07/2024 12:05 PM EST us Angelo Kasper MD LAB BLOOD ORDERABLES Final Res ult [facility] [address] [place] [address], documented in this encounter Visit Diagnoses Diagnosis Encounter for other general examination documented in this encounter
--- OUTSIDE RECORDS SUMMARY | 2025-07-24 12:56 | XMS_ITS | Encounter Summary ---
Author Organization [facility] Address [address] [place] [address] Care Team Providers Care Core Stripper Name Role Phone Unavailable Primary Care Provider Unavailabl e Encounter Details Date Type Department Care Team (Late st Contact Info) Description 10/09/2024 Lab Requisition [facility] Lab 299 [facility] [place] [address] Angelo Kasper MD [address] [place] [address] Encounter for other general examination Social History [...] LAB CHEMISTRY METHOD 10/09/2024 12:04 PM EST [facility] Potassium 4.1 3.5 - 5.5 mmol/L LAB CHEMISTRY METHOD 10/09/2024 12:04 PM EST [facility] Chloride 100 96 - 110 mmol/L LAB CHEMISTRY METHOD 10/09/2024 12:04 PM EST [facility] CO2 26 21 - 32 mmol/L LAB CHEMISTRY METHOD 10/09/2024 12:04 PM EST [facility] Anion Gap 6 [...] Res ult [facility] [address] [place] [address], documented in this encounter Visit Diagnoses Diagnosis Encounter for other general examination documented in this encounter
--- OUTSIDE RECORDS SUMMARY | 2025-07-24 12:56 | XMS_ITS | Encounter Summary ---
Author Organization [email or web address] [facility] Address [address] [place] [address] Care Team Providers Care Manager Printing Name Role Phone Unavailable Primary Care Provider Unavailabl e Encounter Details Date Type Department Care Team (Late st Contact Info) Description 10/03/2024 Lab Requisition [facility] - Main Lab [address] [place] [address] Angelo Kasper MD [address] [place] [address] Encounter for other general examination Social History [...] AM EST) WBC 4.2(L) 4.8 - 10.8 K/[facility] LAB HEMETOLOGY METHOD 10/03/2024 11:02 AM EST [facility] RBC 4.00 3.80 - 4.80 M/[facility] LAB HEMETOLOGY METHOD 10/03/2024 11:02 AM [facility] Hemoglobin 12.0 11.5 - 16.0 g/dL LAB HEMETOLOGY METHOD 10/03/2024 11:02 AM [facility] LAB Hematocrit 37.5 35.0 - 47.0 % LAB HEMETOLOGY METHOD 10/03/2024 11:02 AM [facility] LAB MCV 94.5 79.0 - 98.0 FL LAB HEMETOLOGY METHOD 10/03/2024 11:02 AM [facility] LAB MCH 30.2 27.0 - 32.0 pcg LAB HEMETOLOGY METHOD 10/03/2024 11:02 AM [facility] LAB MCHC 32.0 32.0 - 37.0 g/dL LAB HEMETOLOGY METHOD 10/03/2024 11:02 AM [facility] LAB RDW 13.8 11.0 - 15.0 % LAB HEMETOLOGY METHOD 10/03/2024 11:02 AM [facility] LAB Platelets 224 130 - 400 K/mcL LAB HEMETOLOGY METHOD 10/03/2024 11:02 AM [facility] LAB MPV 9.6 7.0 - 11.0 FL LAB HEMETOLOGY METHOD 10/03/2024 11:02 AM [facility] LAB NRBC 0.0 <1.0 % LAB HEMETOLOGY METHOD 10/03/2024 11:02 AM [facility] LAB NRBC Absolute 0.00 <0.10 K/mcL LAB HEMETOLOGY METHOD 10/03/2024 11:02 AM [facility] Neutrophils Relative 57.4 % LAB HEMETOLOGY METHOD 10/03/2024 11:02 AM [facility] Lymphocytes Relative 22.8 % LAB HEMETOLOGY METHOD 10/03/2024 11:02 AM [facility] Monocytes Relative 13.5 % LAB HEMETOLOGY METHOD 10/03/2024 11:02 AM [facility] Eosinophils Relative 3.1 % LAB HEMETOLOGY METHOD 10/03/2024 11:02 AM [facility] Basophils Relative 1.0 % LAB HEMETOLOGY METHOD 10/03/2024 11:02 AM [facility] Immature Granulocytes Relative 2.2 % LAB HEMETOLOGY METHOD 10/03/2024 11:02 AM [facility] Neutrophils Absolute 2.39 1.50 - 7.00 K/mcL LAB HEMETOLOGY METHOD 10/03/2024 11:02 AM [facility] Lymphocytes Absolute 0.95(L) 1.00 - 5.00 K/mcL LAB HEMETOLOGY METHOD 10/03/2024 11:02 AM [facility] Monocytes Absolute 0.56 0.20 - 1.00 K/mcL LAB HEMETOLOGY METHOD 10/03/2024 11:02 AM [facility] Eosinophils Absolute 0.13 0.00 - 0.50 K/mcL LAB HEMETOLOGY METHOD 10/03/2024 11:02 AM [facility] Basophils Absolute 0.04 0.00 - 0.20 K/mcL LAB HEMETOLOGY METHOD 10/03/2024 11:02 AM [facility] Immature Granulocytes Absolute 0.09(H) 0.00 - 0.03 K/mcL LAB HEMETOLOGY METHOD 10/03/2024 11:02 AM [facility] Blood Venous blood specimen / Unknown Venipuncture / Unknown 10/03/2024 6:25 AM EST 10/03/2024 9:48 AM EST us Angelo Kasper MD LAB BLOOD ORDERABLES Final Res ult [facility] [address] [place] [address], * (ABNORMAL) Basic metabolic panel (10/03/2024 6:25 AM EST) Sodium 128(L) 133 - 145 mmol/L LAB CHEMISTRY METHOD 10/03/2024 11:21 AM [facility] Potassium 4.4 3.5 - 5.5 mmol/L LAB CHEMISTRY METHOD 10/03/2024 11:21 AM [facility] Chloride 94(L) 96 - 110 mmol/L LAB CHEMISTRY METHOD 10/03/2024 11:21 AM [facility] CO2 28 21 - 32 mmol/L LAB CHEMISTRY METHOD 10/03/2024 11:21 AM [facility] Anion Gap 6 3 - 11 LAB CHEMISTRY METHOD 10/03/2024 11:21 AM [facility] Glucose 66(L) 70 - 100 mg/dL LAB CHEMISTRY METHOD 10/03/2024 11:21 AM [facility] BUN 13 5 - 25 mg/dL LAB CHEMISTRY METHOD 10/03/2024 11:21 AM [facility] Creatinine 0.67 0.50 - 1.10 mg/dL LAB CHEMISTRY METHOD 10/03/2024 11:21 AM [facility] LAB eGFR 85 >=60 mL/min/1. 73m2 LAB CHEMISTRY METHOD 10/03/2024 11:21 AM [facility] LAB Comment:Calculation based on the Chronic Kidney Disease Epidemiology Collaboration (CKD-EPI) equation refit without adjustment for race. BUN/Creatinine Ratio 19.4 LAB CHEMISTRY METHOD 10/03/2024 11:21 AM [facility] Calcium 8.9 8.5 - 10.5 mg/dL LAB CHEMISTRY METHOD 10/03/2024 11:21 AM [facility] Blood Venous blood specimen / Unknown Venipuncture / Unknown 10/03/2024 6:25 AM EST 10/03/2024 9:48 AM EST us Angelo Kasper MD LAB BLOOD ORDERABLES Final Res ult [facility] [address] [place] [address], documented in this encounter Visit Diagnoses Diagnosis Encounter for other general examination documented in this encounter
--- OUTSIDE RECORDS SUMMARY | 2025-07-24 12:56 | XMS_ITS | Encounter Summary ---
Author Organization [facility] Address [address] [place] [address] Care Team Providers Care Ship Wirer Name Role Phone Unavailable Primary Care Provider Unavailabl e Encounter Details Date Type Department Care Team (Late st Contact Info) Description 09/30/2024 Lab Requisition [facility] - Main Lab [address] [place] [address] Angelo Kasper MD [address] [place] [address] [phone] Encounter for other general examination Social History [...] Final Res ult [facility] [address] [place] [address], * (ABNORMAL) Basic metabolic panel (09/30/2024 7:07 [...] MD LAB BLOOD ORDERABLES Final Res ult [facility] ([facility] [address] [place] [address], documented in this encounter Visit Diagnoses Diagnosis Encounter for other general examination documented in this encounter
--- OUTSIDE RECORDS SUMMARY | 2025-07-24 12:56 | XMS_ITS | Encounter Summary ---
Author Organization [facility] Address [address] [place] [address] Care Team Providers Care Engraver Lettering Name Role Phone Unavailable Primary Care Provider Unavailabl e Encounter Details Date Type Department Care Team (Late st Contact Info) Description 10/11/2024 Lab Requisition [facility] Lab 299 [facility] [place] [address] Angelo Kasper MD [address] [place] [address] Encounter for other general examination Social History [...] LAB CHEMISTRY METHOD 10/11/2024 1:13 PM EST [facility] Potassium 4.0 3.5 - 5.5 mmol/L LAB CHEMISTRY METHOD 10/11/2024 1:13 PM EST [facility] Chloride 102 96 - 110 mmol/L LAB CHEMISTRY METHOD 10/11/2024 1:13 PM EST [facility] LAB CO2 23 21 - 32 mmol/L LAB CHEMISTRY METHOD 10/11/2024 1:13 PM EST [facility] LAB Anion Gap 9 3 - 11 LAB CHEMISTRY METHOD 10/11/2024 1:13 PM [facility] LAB Glucose 80 70 - 100 mg/dL LAB CHEMISTRY METHOD 10/11/2024 1:13 PM [facility] LAB BUN 25 5 - 25 mg/dL LAB CHEMISTRY METHOD 10/11/2024 1:13 PM [facility] LAB Creatinine 0.99 0.50 - 1.10 mg/dL LAB CHEMISTRY METHOD 10/11/2024 1:13 PM [facility] LAB eGFR 56(L) >=60 mL/min/1. 73m2 LAB CHEMISTRY METHOD 10/11/2024 1:13 PM [facility] LAB Comment:Calculation based on the Chronic Kidney Disease Epidemiology Collaboration (CKD-EPI) equation refit without adjustment for race. BUN/Creatinine Ratio 25.3 LAB CHEMISTRY METHOD 10/11/2024 1:13 PM [facility] LAB Calcium 8.7 8.5 - 10.5 mg/dL LAB CHEMISTRY METHOD 10/11/2024 1:13 PM [facility] LAB Blood Venous blood specimen / Unknown Venipuncture / Unknown 10/11/2024 7:25 AM EST 10/11/2024 11:51 AM EST us Angelo Kasper MD LAB BLOOD ORDERABLES Final Res ult [facility] [address] [place] [address], documented in this encounter Visit Diagnoses Diagnosis Encounter for other general examination documented in this encounter
== END 2025-07-24 11:11 | disposition home or self-care (01) ==
LOC: HO.PMC 10:49
PROVIDERS: PCP Internal Medicine; Visit Provider Anesthesiology
DX: T85.192A Other mechanical complication of implanted electronic neurostimulator of spinal cord electrode (lead), initial encounter (principal); M06.9 Rheumatoid arthritis, unspecified; M47.816 Spondylosis without myelopathy or radiculopathy, lumbar region; M46.1 Sacroiliitis, not elsewhere classified; M53.3 Sacrococcygeal disorders, not elsewhere classified; G89.4 Chronic pain syndrome; S32.010A Wedge compression fracture of first lumbar vertebra, initial encounter for closed fracture
CPT/HCPCS: 99214

== ENCOUNTER → 2025-07-24 10:48 | Outpatient (BNVA) | payer MEDICARE, OTHER, SELFPAY | PROVIDERS: PCP Internal Medicine; Visit Provider Anesthesiology | DX: T85.192A Other mechanical complication of implanted electronic neurostimulator of spinal cord electrode (lead), initial encounter (principal); M06.9 Rheumatoid arthritis, unspecified; M47.816 Spondylosis without myelopathy or radiculopathy, lumbar region; M46.1 Sacroiliitis, not elsewhere classified; M53.3 Sacrococcygeal disorders, not elsewhere classified; G89.4 Chronic pain syndrome; S32.010D Wedge compression fracture of first lumbar vertebra, subsequent encounter for fracture with routine healing | CPT/HCPCS: 99212 ==

== ENCOUNTER 2025-08-05 15:11 | Outpatient (REF) | payer MEDICARE, OTHER, SELFPAY ==
--- OUTSIDE RECORDS SUMMARY | 2025-08-05 16:32 | XMS_ITS | Encounter Summary ---
Author Organization [facility] Address [address] [place] [address] Care Team Providers Care Head Refrigerating Engineer Name Role Phone Unavailable Primary Care Provider Unavailabl e Encounter Details Date Type Department Care Team (Late st Contact Info) Description 10/03/[address] [facility] - Main Lab [address] [place] [address] Angelo Kasper MD [address] [place] [address] Encounter for other general examination Social History [...] AM EST) WBC 4.2(L) 4.8 - 10.8 K/[facility] LAB HEMETOLOGY METHOD 10/03/2024 11:02 AM EST [facility] RBC 4.00 3.80 - 4.80 M/[facility] LAB HEMETOLOGY METHOD 10/03/2024 11:02 AM [...] Res ult [facility] [address] [place] [address], * (ABNORMAL) Basic metabolic panel (10/03/2024 6:25 [...] LAB BLOOD ORDERABLES Final Res ult [facility] [address] [place] [address], documented in this encounter Visit Diagnoses Diagnosis Encounter for other general examination documented in this encounter
--- OUTSIDE RECORDS SUMMARY | 2025-08-05 16:32 | XMS_ITS | Encounter Summary ---
Author Organization [facility] Address [address] [place] [address] Care Team Providers Care Superintendent Container Terminal Name Role Phone Unavailable Primary Care Provider Unavailabl e Encounter Details Date Type Department Care Team (Late st Contact Info) Description 10/06/2024 Lab Requisition [facility] - Main Lab 299 [facility] [place] [address] Angelo Kasper MD [address] [place] [phone] Encounter for other general examination Social History [...] LAB CHEMISTRY METHOD 10/06/2024 9:33 AM EST [facility] ([facility] Blood Venous blood specimen / Unknown Venipuncture / Unknown 10/06/2024 5:48 AM EST 10/06/2024 6:48 AM EST Narrative [facility] - 10/06/2024 9:33 AM EST [facility] 8 AM SPEC: 5.0-23.0 mcg/dL 4 PM SPEC: 3.0-16.0 mcg/dL 8 PM SPEC: <5.0 mcg/dL Angelo Kasper MD LAB BLOOD ORDERABLES Final Res ult Performing Organization Address City/[facility]/ZIP Co de Phone Number [facility] [address] [place] [address], [place] [phone] * Thyroid stimulating hormone (10/06/2024 5:48 AM EST) Pathologist [facility] TSH 2.14 0.40 - 4.00 mcIU/mL LAB CHEMISTRY METHOD 10/06/2024 8:28 AM EST [facility] Blood Venous blood specimen / Unknown Venipuncture / Unknown 10/06/2024 5:48 AM EST 10/06/2024 6:48 AM EST us Angelo Kasper MD LAB BLOOD ORDERABLES Final Res ult Performing Organization Address City/[facility]/ZIP Co de Phone Number [facility] [address] [place] [address], [place] [phone] * (ABNORMAL) Basic metabolic panel (10/06/2024 5:48 AM EST) Sodium 130(L) 133 - 145 mmol/L LAB CHEMISTRY METHOD 10/06/2024 7:23 AM EST [facility] Potassium 4.0 3.5 - 5.5 mmol/L LAB CHEMISTRY METHOD 10/06/2024 7:23 AM EST [facility] Chloride 98 96 - 110 mmol/L LAB CHEMISTRY METHOD 10/06/2024 7:23 AM EST [facility] CO2 26 21 - 32 mmol/L LAB CHEMISTRY METHOD 10/06/2024 7:23 AM EST [facility] Anion Gap 6 3 - 11 LAB CHEMISTRY METHOD 10/06/2024 7:23 AM [facility] LAB Glucose 76 70 - 100 mg/dL LAB CHEMISTRY METHOD 10/06/2024 7:23 AM [facility] LAB BUN 9 5 - 25 mg/dL LAB CHEMISTRY METHOD 10/06/2024 7:23 AM [facility] LAB Creatinine 0.62 0.50 - 1.10 mg/dL LAB CHEMISTRY METHOD 10/06/2024 7:23 AM [facility] LAB eGFR 87 >=60 mL/min/1. 73m2 LAB CHEMISTRY METHOD 10/06/2024 7:23 AM [facility] LAB Comment:Calculation based on the Chronic Kidney Disease Epidemiology Collaboration (CKD-EPI) equation refit without adjustment for race. BUN/Creatinine Ratio 14.5 LAB CHEMISTRY METHOD 10/06/2024 7:23 AM [facility] LAB Calcium 8.4(L) 8.5 - 10.5 mg/dL LAB CHEMISTRY METHOD 10/06/2024 7:23 AM [facility] LAB Blood Venous blood specimen / Unknown Venipuncture / Unknown 10/06/2024 5:48 AM EST 10/06/2024 6:48 AM EST us Angelo Kasper MD LAB BLOOD ORDERABLES Final Res ult [facility] [address] [place] [address], documented in this encounter Visit Diagnoses Diagnosis Encounter for other general examination documented in this encounter
--- OUTSIDE RECORDS SUMMARY | 2025-08-05 16:32 | XMS_ITS | Encounter Summary ---
Author Organization [facility] Address [address] [place] [address] Care Team Providers Care Rabbit Breeder Name Role Phone Unavailable Primary Care Provider Unavailabl e Encounter Details Date Type Department Care Team (Late st Contact Info) Description 09/30/2024 Lab Requisition [facility] - Main Lab [address] [place] [address] Angelo Kasper MD [address] [place] [address] [phone] Encounter for other general examination Social History [...] LAB HEMETOLOGY METHOD 09/30/2024 1:38 PM EST [facility] RBC 4.10 3.80 - 4.80 M/mcL LAB HEMETOLOGY METHOD 09/30/2024 1:38 PM EST [facility] Hemoglobin 12.4 11.5 - 16.0 g/dL LAB HEMETOLOGY METHOD 09/30/2024 1:38 PM EST [facility] LAB Hematocrit 38.8 35.0 - 47.0 % LAB HEMETOLOGY METHOD 09/30/2024 1:38 PM [facility] MCV 95.1 79.0 - 98.0 FL LAB HEMETOLOGY METHOD 09/30/2024 1:38 PM [facility] MCH 30.4 27.0 - 32.0 pcg LAB HEMETOLOGY METHOD 09/30/2024 1:38 PM EST [facility] LAB MCHC 32.0 32.0 - 37.0 g/dL LAB HEMETOLOGY METHOD 09/30/2024 1:38 PM [facility] RDW 14.1 11.0 - 15.0 % LAB HEMETOLOGY METHOD 09/30/2024 1:38 PM [facility] Platelets 279 130 - 400 K/mcL LAB HEMETOLOGY METHOD 09/30/2024 1:38 PM EST [facility] LAB MPV 9.4 7.0 - 11.0 FL LAB HEMETOLOGY METHOD 09/30/2024 1:38 PM [facility] NRBC 0.0 <1.0 % LAB HEMETOLOGY METHOD 09/30/2024 1:38 PM [facility] NRBC Absolute 0.00 <0.10 K/mcL LAB HEMETOLOGY METHOD 09/30/2024 1:38 PM [facility] Blood Venous blood specimen / Unknown Venipuncture / Unknown 09/30/2024 7:07 AM EST 09/30/2024 1:00 PM EST us Angelo Kasper MD LAB BLOOD ORDERABLES Final Res ult [facility] [address] [place] [address], * (ABNORMAL) Basic metabolic panel (09/30/2024 7:07 AM EST) Sodium 135 133 - 145 mmol/L LAB CHEMISTRY METHOD 09/30/2024 4:17 PM [facility] Potassium 4.6 3.5 - 5.5 mmol/L LAB CHEMISTRY METHOD 09/30/2024 4:17 PM [facility] Chloride 103 96 - 110 mmol/L LAB CHEMISTRY METHOD 09/30/2024 4:17 PM [facility] CO2 25 21 - 32 mmol/L LAB CHEMISTRY METHOD 09/30/2024 4:17 PM [facility] Anion Gap 7 3 - 11 LAB CHEMISTRY METHOD 09/30/2024 4:17 PM [facility] Glucose 60(L) 70 - 100 mg/dL LAB CHEMISTRY METHOD 09/30/2024 4:17 PM [facility] BUN 20 5 - 25 mg/dL LAB CHEMISTRY METHOD 09/30/2024 4:17 PM [facility] Creatinine 0.82 0.50 - 1.10 mg/dL LAB CHEMISTRY METHOD 09/30/2024 4:17 PM [facility] eGFR 70 >=60 mL/min/1. 73m2 LAB CHEMISTRY METHOD 09/30/2024 4:17 PM [facility] LAB Comment:Calculation based on the Chronic Kidney Disease Epidemiology Collaboration (CKD-EPI) equation refit without adjustment for race. BUN/Creatinine Ratio 24.4 LAB CHEMISTRY METHOD 09/30/2024 4:17 PM [facility] Calcium 9.8 8.5 - 10.5 mg/dL LAB CHEMISTRY METHOD 09/30/2024 4:17 PM [facility] Blood Venous blood specimen / Unknown Venipuncture / Unknown 09/30/2024 7:07 AM EST 09/30/2024 1:00 PM EST Angelo Kasper MD LAB BLOOD ORDERABLES Final Res ult [facility] [address] [place] [address], documented in this encounter Visit Diagnoses Diagnosis Encounter for other general examination documented in this encounter
--- OUTSIDE RECORDS SUMMARY | 2025-08-05 16:32 | XMS_ITS | Encounter Summary ---
Author Organization [facility] Address [address] [place] [address] Care Team Providers Care Orthotist Name Role Phone Unavailable Primary Care Provider Unavailabl e Encounter Details Date Type Department Care Team (Late st Contact Info) Description 09/29/2024 Lab Requisition [facility] - Main Lab [address] [place] [address] Angelo Kasper MD [address] [place] [address] Encounter for other general examination Social History [...] HEMETOLOGY METHOD 09/29/2024 11:08 AM EST [facility] RBC 4.10 3.80 - [...] Res ult [facility] [address] [place] [address], [place] [phone] * Magnesium (09/29/2024 7:35 AM EST) [facility] Magnesium 2.1 1.9 - 2.6 mg/dL LAB CHEMISTRY METHOD 09/29/2024 11:09 AM EST [facility] Blood Venous blood specimen / Unknown Venipuncture / Unknown 09/29/2024 7:35 AM EST 09/29/2024 10:30 AM EST us Angelo Kasper MD LAB BLOOD ORDERABLES Final Res ult [facility] [address] [place] [address], [place] [phone] * (ABNORMAL) Comprehensive metabolic panel (09/29/2024 7:35 AM EST) [facility] Sodium 138 133 - 145 mmol/L LAB [...] Res ult [facility] [address] [place] [address], documented in this encounter Visit Diagnoses Diagnosis Encounter for other general examination documented in this encounter
--- OUTSIDE RECORDS SUMMARY | 2025-08-05 16:32 | XMS_ITS | Encounter Summary ---
Author Organization [facility] Address [address] [place] [address] Care Team Providers Care Quill Skinner Name Role Phone Unavailable Primary Care Provider Unavailabl e Encounter Details Date Type Department Care Team (Late st Contact Info) Description 10/11/2024 Lab Requisition [facility] [address] [facility] [address] [place] [address] Angelo Kasper MD [address] [place] [address] Encounter for other general examination Social History [...] EST [facility] Chloride 102 96 - 110 mmol/L LAB CHEMISTRY METHOD 10/11/2024 1:13 PM EST [facility] CO2 23 21 - 32 mmol/L LAB CHEMISTRY METHOD 10/11/2024 1:13 PM EST [facility] Anion Gap 9 3 - [...] ult [facility] [address] [place] [address], documented in this encounter Visit Diagnoses Diagnosis Encounter for other general examination documented in this encounter
--- OUTSIDE RECORDS SUMMARY | 2025-08-05 16:32 | XMS_ITS | Encounter Summary ---
Author Organization [facility] Address [address] [place] [address] Care Team Providers Care Healthcare Specialist Name Role Phone Unavailable Primary Care Provider Unavailabl e Encounter Details Date Type Department Care Team (Late st Contact Info) Description 10/04/2024 Lab Requisition [facility] - Main Lab [address] [place] [address] Angelo Kasper MD [address] [place] [address] Encounter for other general examination Social History [...] LAB CHEMISTRY METHOD 10/04/2024 10:45 AM EST [facility] Blood Venous blood specimen / Unknown Venipuncture / Unknown 10/04/2024 5:56 AM EST 10/04/2024 9:06 AM EST Angelo Kasper MD LAB BLOOD ORDERABLES Final Res ult [facility] [address] [place] [address], [place] [phone] documented in this encounter Visit Diagnoses Diagnosis Encounter for other general examination documented in this encounter
--- OUTSIDE RECORDS SUMMARY | 2025-08-05 16:32 | XMS_ITS | Clinical Summary ---
Author Organization [address] [facility] Address [address] [place] [address] Phone Care Team Providers Care Game Programer Name Role Phone Unavailable Primary Care Provider [...]
--- OUTSIDE RECORDS SUMMARY | 2025-08-05 16:32 | XMS_ITS | Encounter Summary ---
Author Organization [employer] [facility] Address [address] [place] [address] Care Team Providers Care Hebrew Professor Name Role Phone Unavailable Primary Care Provider Unavailabl e Encounter Details Date Type Department Care Team (Late st Contact Info) Description 10/09/2024 Lab Requisition [facility] 299 [facility] [place] [address] Angelo Kasper MD [address] [place] [address] Encounter for other general examination Social History [...] LAB CHEMISTRY METHOD 10/09/2024 12:[address] [facility] Potassium 4.1 3.5 - 5.5 mmol/L LAB CHEMISTRY METHOD 10/09/2024 12:[address] [facility] Chloride 100 96 - 110 mmol/L LAB CHEMISTRY METHOD 10/09/2024 12:[address] [facility] CO2 26 21 - 32 mmol/L LAB CHEMISTRY METHOD 10/09/2024 12:[address] [facility] Anion [...] Res ult [facility] [address] [place] [address], documented in this encounter Visit Diagnoses Diagnosis Encounter for other general examination documented in this encounter
--- OUTSIDE RECORDS SUMMARY | 2025-08-05 16:32 | XMS_ITS | Encounter Summary ---
Author Organization [employer] Address [address] [place] [address] Care Team Providers Care Cafe Team Member Name Role Phone Unavailable Primary Care Provider Unavailabl e Encounter Details Date Type Department Care Team (Late st Contact Info) Description 10/04/2024 Lab Requisition [facility] - Main Lab 299 [facility] [place] [address] Angelo Kasper MD [address] [place] [address] [phone] Encounter for other general examination Social History [...] microscopic and culture (10/04/2024 4:00 AM EST) [facility] Specific [place] Urine 1.018 1.003 - 1.030 LAB URINALYSIS - AUTOMATED METHOD 10/04/2024 9:55 AM [facility] pH, Urine 7.0 5.0 - 8.0 pH LAB URINALYSIS - AUTOMATED METHOD 10/04/2024 9:55 AM [facility] Leukocytes, Urine Negative Negative LAB URINALYSIS - AUTOMATED METHOD 10/04/2024 9:55 AM [facility] Nitrite, Urine Negative Negative LAB URINALYSIS - AUTOMATED METHOD 10/04/2024 9:55 AM [facility] Protein, Urine Negative <=Trace mg/dL LAB URINALYSIS - AUTOMATED METHOD 10/04/2024 9:55 AM [facility] Glucose, Urine Negative Negative mg/dL LAB URINALYSIS - AUTOMATED METHOD 10/04/2024 9:55 AM [facility] Ketones, Urine Trace(A) Negative mg/dL LAB URINALYSIS - AUTOMATED METHOD 10/04/2024 9:55 AM [facility] Urobilinogen, Urine 1.0 0.2 - 1.0 mg/dL LAB URINALYSIS - AUTOMATED METHOD 10/04/2024 9:55 AM [facility] Bilirubin, Urine Negative Negative LAB URINALYSIS - AUTOMATED METHOD 10/04/2024 9:55 AM [facility] Blood, Urine Negative Negative LAB URINALYSIS - AUTOMATED METHOD 10/04/2024 9:55 AM [facility] Urine Urine specimen obtained by clean catch procedure / Unknown Non-blood Collection / Unknown 10/04/2024 4:00 AM EST 10/04/2024 9:37 AM EST us Angelo Kasper MD LAB URINE ORDERABLES Final Res ult [facility] [address] [place] [address], [place] [phone] * Navarro urine culture tube (10/04/2024 4:00 AM EST) Extra Tube Hold for add-ons. 10/04/2024 11:01 AM EST [facility] LAB Comment:Auto resulted. Urine Urine specimen obtained by clean catch procedure / Unknown Non-blood Collection / Unknown 10/04/2024 4:00 AM EST 10/04/2024 9:37 AM EST us Angelo Kasper MD LAB URINE ORDERABLES Final Res ult [facility] [address] [place] [address], [place] [phone] * Sodium, urine, random (10/04/2024 4:00 AM EST) Sodium, Ur 87 mmol/L LAB CHEMISTRY METHOD 10/04/2024 10:46 AM EST [facility] Urine Urine specimen obtained by clean catch procedure / Unknown Non-blood Collection / Unknown 10/04/2024 4:00 AM EST 10/04/2024 9:37 AM EST us Angelo Kasper MD LAB URINE ORDERABLES Final Res ult [facility] [address] [place] [address], [place] [phone] * Osmolality, urine (10/04/2024 4:00 AM EST) Osmolality, Urine 475 300 - 1,300 mOsm/kg LAB CHEMISTRY METHOD 10/04/2024 10:45 AM EST [facility] Urine Urine specimen obtained by clean catch procedure / Unknown Non-blood Collection / Unknown 10/04/2024 4:00 AM EST 10/04/2024 9:37 AM EST us Angelo Kasper MD LAB URINE ORDERABLES Final Res ult [facility] [address] [place] [address], documented in this encounter Visit Diagnoses Diagnosis Encounter for other general examination documented in this encounter
--- OUTSIDE RECORDS SUMMARY | 2025-08-05 16:32 | XMS_ITS | Clinical Summary ---
Author Organization [facility] Address [address] [place] [address] Care Team Providers Care Cell Biologist Name Role Phone Unavailable Primary Care Provider [...]
--- OUTSIDE RECORDS SUMMARY | 2025-08-05 16:32 | XMS_ITS | Encounter Summary ---
Author Organization [facility] [facility] Address [address] [place] [address] Care Team Providers Care Facilities Supervisor Name Role Phone Unavailable Primary Care Provider Unavailabl e Encounter Details Date Type Department Care Team (Late st Contact Info) Description 10/05/[address] [facility] - Main Lab 299 [facility] [place] [address] Angelo Kasper MD [address] [place] [address] Encounter for other general examination Social History [...] AM EST [facility] CO2 27 21 - 32 mmol/L LAB CHEMISTRY METHOD 10/05/2024 11:02 AM EST [facility] Anion Gap 6 3 - 11 LAB CHEMISTRY METHOD 10/05/2024 11:02 AM [facility] Glucose 70 70 - 100 mg/dL LAB CHEMISTRY METHOD 10/05/2024 11:02 AM [facility] BUN 11 5 - 25 mg/dL LAB CHEMISTRY METHOD 10/05/2024 11:02 AM [facility] Creatinine 0.71 0.50 - 1.10 mg/dL LAB CHEMISTRY METHOD 10/05/2024 11:02 AM [facility] eGFR 83 >=60 mL/min/1. 73m2 LAB CHEMISTRY METHOD 10/05/2024 11:02 AM [facility] Comment:Calculation based on the Chronic Kidney Disease Epidemiology Collaboration (CKD-EPI) equation refit without adjustment for race. BUN/Creatinine Ratio 15.5 LAB CHEMISTRY METHOD 10/05/2024 11:02 AM [facility] Calcium 8.6 8.5 - 10.5 mg/dL LAB CHEMISTRY METHOD 10/05/2024 11:02 AM [facility] Blood Venous blood specimen / Unknown Venipuncture / Unknown 10/05/2024 6:03 AM EST 10/05/2024 9:38 AM EST us Angelo Kasper MD LAB BLOOD ORDERABLES Final Res ult [facility] [address] [place] [address], documented in this encounter Visit Diagnoses Diagnosis Encounter for other general examination documented in this encounter
--- OUTSIDE RECORDS SUMMARY | 2025-08-05 16:32 | XMS_ITS | Encounter Summary ---
Author Organization [facility] Address [address] [place] [address] Care Team Providers Care Payroll Specialist Name Role Phone Unavailable Primary Care Provider Unavailabl e Encounter Details Date Type Department Care Team (Late st Contact Info) Description 10/07/2024 Lab Requisition [facility] Lab [address] [facility] [place] [place] [address] Angelo Kasper MD [address] [place] [id number] Encounter for other general examination Social History [...] LAB CHEMISTRY METHOD 10/07/2024 2:59 PM EST [facility] Potassium 4.2 3.5 - 5.5 mmol/L LAB CHEMISTRY METHOD 10/07/2024 2:59 PM EST [facility] Chloride 98 96 - 110 mmol/L LAB CHEMISTRY METHOD 10/07/2024 2:59 PM EST [facility] CO2 22 21 - 32 mmol/L LAB CHEMISTRY METHOD 10/07/2024 2:59 PM EST [facility] Anion Gap 10 3 - 11 LAB CHEMISTRY METHOD 10/07/2024 2:59 PM EST [facility] Glucose 63(L) 70 - 100 mg/dL LAB CHEMISTRY METHOD 10/07/2024 2:59 PM [facility] BUN 9 5 - 25 mg/dL LAB CHEMISTRY METHOD 10/07/2024 2:59 PM [facility] Creatinine 0.55 0.50 - 1.10 mg/dL LAB CHEMISTRY METHOD 10/07/2024 2:59 PM [facility] eGFR 89 >=60 mL/min/1. 73m2 LAB CHEMISTRY METHOD 10/07/2024 2:59 PM [facility] Comment:Calculation based on the Chronic Kidney Disease Epidemiology Collaboration (CKD-EPI) equation refit without adjustment for race. BUN/Creatinine Ratio 16.4 LAB CHEMISTRY METHOD 10/07/2024 2:59 PM [facility] Calcium 8.3(L) 8.5 - 10.5 mg/dL LAB CHEMISTRY METHOD 10/07/2024 2:59 PM [facility] Blood Venous blood specimen / Unknown 10/07/2024 7:28 AM EST 10/07/2024 12:05 PM EST us Angelo Kasper MD LAB BLOOD ORDERABLES Final Res ult [facility] [address] [place] [address], documented in this encounter Visit Diagnoses Diagnosis Encounter for other general examination documented in this encounter
[2025-08-05 17:12] LABS: Hematocrit 35.0 % (37.0-47.0); Hemoglobin 11.3 g/dl (12.0-16.0); Imm Gran Abs Auto 0.03 X10*3/uL (0.00-0.03); Imm Gran Pct Auto 0.4 % (0.0-0.4); Lymphocytes Absolute Auto 2.2 X10*3/uL (1.2-4.9); MANUAL DIFF FLAG NO; Mean Corpuscular HGB Conc 32.3 g/dl (31.0-35.0); Mean Corpuscular Hemoglobin 29.0 pg (27.0-33.0); Mean Corpuscular Volume 89.7 fL (80.0-98.0); NRBC Abs Auto 0.000 X10*3/uL (0.0-0.012); NRBC Pct Auto 0.0 /100WBC (0.0-0.2); Platelet Count 259 X10*3/uL (160-400); Red Blood Count 3.90 X10*6/uL (4.20-5.50); White Blood Count 8.4 X10*3/uL (4.8-10.8)
[2025-08-05 17:52] LABS: Alanine Aminotransferase 17 U/L (0-31); Albumin Level 3.7 g/dL (3.5-5.0); Alkaline Phosphatase 108 U/L (39-117); Anion Gap 10 (12-20); Aspartate Amino Transferase 25 U/L (5-31); Blood Urea Nitrogen 15 mg/dL (9-16); Calcium 9.5 mg/dL (8.4-10.2); Carbon Dioxide 26 mmol/L (22-29); Chloride 110 mmol/L (96-108); Cholesterol 136 mg/dL (<200); Estimated Glomerular Filt Rate > 60; HDL Cholesterol 45 mg/dL (>40); Potassium 3.8 mmol/L (3.3-5.1); Sodium 142 mmol/L (135-145); Total Protein 6.8 g/dL (6.5-8.0); Triglycerides 134 mg/dL (<150)
[2025-08-05 17:58] LABS: Free T4 (Free Thyroxine) 0.95 ng/dL (0.71-1.85)
[2025-08-05 18:11] LABS: Thyroid Stimulating Hormone 1.43 uIU/mL (0.32-4.0)
[2025-08-05 18:16] LABS: Folate 13.6 ng/mL (> or = 4.0); Vitamin B12 508 pg/mL (200-900)
[2025-08-10 14:58] LABS: Vitamin D 25-OH, D2 <4 ng/mL; Vitamin D 25-OH, D3 33 ng/mL; Vitamin D 25-OH, Total 33 ng/mL (30-100)
== END 2025-08-05 15:12 | disposition home or self-care (01) ==
LOC: HO.LAB 15:11
PROVIDERS: Absent Provider Student in an Organized Health Care Education/Training Program; PCP Internal Medicine; Visit Provider Internal Medicine
DX: I10 Essential (primary) hypertension (principal); M05.9 Rheumatoid arthritis with rheumatoid factor, unspecified; M81.0 Age-related osteoporosis without current pathological fracture; E78.00 Pure hypercholesterolemia, unspecified
CPT/HCPCS: 36415; 80053; 80061; 82306; 82607; 82746; 84439; 84443; 85025; 85652; 86140

== ENCOUNTER 2025-08-06 12:23 | Outpatient (AMB) | payer MEDICARE, OTHER, SELFPAY ==
[2025-08-06 12:35] VITALS: BP 144/76; PULSE 75; TEMP 36.2; O2SAT 96; BMI 24.7
--- NOTE | 2025-08-06 12:35 | A.OFFPC_ITS ---
Vital Signs 08/06/25 12:35 Height 5 ft 4.96 in Weight 148 lb 6 oz BMI 24.7 BP 144/76 H Blood Pressure Location Lt brachial Position Sitting Pulse 75 Pulse Source Pulse Oximeter Temp 97.1 F Temp Source Temporal Artery Scan Pulse Oximetry (%) 96 Oxygen Delivery Method Room Air Intake Visit Reasons: Lumbar compression fracture Scientist Required: No Police Superintendent: Not Required per policy Accompanied by: Self / Same As Patient Allergies alendronate sodium (From FOSAMAX) Allergy (Severe, Verified 08/06/25 12:36) ANAPHYLAXIS lisinopril (LISINOPRIL) Allergy (Severe, Verified 08/06/25 12:36) ANAPHYLAXIS, cough clarithromycin (CLARITHROMYCIN) Allergy (Intermediate, Verified 08/06/25 12:36) CONFUSION, sores on tongue, dry mouth simvastatin (SIMVASTATIN) Allergy (Mild, Verified 08/06/25 12:36) DRY THROAT, achy, confusion Medication List - Last Reconciled 08/06/25 by Renetta Vides MD acetaminophen (Tylenol Extra Strength) 500 mg PO Q6H PRN allopurinol 100 mg PO DAILY amlodipine 5 mg PO DAILY atorvastatin 40 mg PO DAILY bisacodyl 5 mg PO DAILY PRN cholecalciferol (vitamin D3) 125 mcg PO DAILY clopidogrel (Plavix) 75 mg PO DAILY [CMF Bone Stimulator As directed] folic acid 1 mg PO DAILY lactulose 20 grams (30 mL) PO QID PRN meclizine 25 mg PO DAILY PRN methocarbamol 750 mg PO QID PRN methotrexate sodium 15 mg (6 x 2.5 mg) PO QWEEK metoprolol succinate ER 25 mg PO DAILY montelukast 10 mg PO BEDTIME multivitamin 1 tab PO DAILY olopatadine 0.1% 1 drp ophthalmic (eye) BID PRN pantoprazole 40 mg PO DAILY ropinirole 3 mg PO DAILY@1800 tramadol 50 mg PO Q6-8H PRN vitamin B complex (B Complex-Vitamin B12 tablet) 1 tab PO DAILY Tobacco use date assessed: 08/06/25 Fall risk assessment: No Falls in past year Last assessed Fall Risk: 08/06/25 Dental Screening Dental Screen Date: 07/02/25 [facility] Medical History (Updated 07/10/25 @ 12:06 by Sotero Swann MD) Vomiting High cholesterol Pre-op chest exam Meniere disease Transient ischemic attack (TIA) Osteoarthritis of shoulders, bilateral Osteoarthritis of carpometacarpal (CMC) joint of right thumb Overweight (BMI 25.0-29.9) Thrush, oral Nondisplaced fracture of fifth metatarsal bone, left foot, subsequent encounter for fracture with nonunion Seropositive rheumatoid arthritis Fracture of 5th metatarsal Fracture of fifth metatarsal bone of right foot Polymyalgia rheumatica Anxiety and depression Lumbar degenerative disc disease Osteoporosis Gout Restless leg syndrome Hypergammaglobulinemia GERD (gastroesophageal reflux disease) Seizure disorder Hypertension Hypercholesterolemia Asthma Peripheral neuropathy Rheumatoid arthritis Surgical History History of surgery (02/07/25) History of bilateral knee replacement Corneal transplant status History of arthroplasty of right hip History of total abdominal hysterectomy History of corneal transplant H/O left knee surgery History of open reduction and internal fixation (ORIF) procedure History of cholecystectomy History of appendectomy Family History Father CVD (cardiovascular disease) Mother No problems noted. Social History Household Members: Significant Other Household Members Other:: parter Housing: House Are you a primary resident care aide to a significant other at home: No Do you presently have visiting nurse or other home services: No Alcohol intake: current Alcohol intake frequency: holidays/special occasions only Alcohol type: wine Comment: counts correct Patient Tobacco Use Status: Never used Tobacco Tobacco use type: Cigarette e-Cigarette/Vaping Use: Never Used Second Hand Smoke Exposure: No Advance Directives Date on File: 07/11/23 service: No Current occupational status: retired Cognitive needs: Yes (walker) Hearing needs: Yes Vision needs: Yes Questionnaire Thrive Questionnaire Date Thrive assessed: 04/09/25 I am a: Patient What is your living situation today?: I have a steady place to live Within the past 12 months, did the food you bought not last and you didn't have the money to get more?: Never true Within the past 12 months, did you worry whether your food would run out before you got money to buy more?: Never true Do you have trouble paying for medicines?: No Do you have trouble getting transportation to medical appointments?: No Do you have trouble paying your heating and electricity bill?: No Do you have trouble taking care of your child, family member or friend?: No Do you have trouble with day-to-day activities such as bathing, preparing meals, shopping, managing finances, etc.?: No Are you currently unemployed and looking for a job?: No Are you interested in more education?: No Please select the resources that you would like help with: None Currently or been in a relationship where the following occur: No concerns re ported THRIVE Score: 0 LIYA-7 AMB Questionnaire LIYA-7 Date LIYA - 7 assessed: 04/09/25 Source: Developed by Drs. Montana Salmon, Annalise Muse, Chris Montana and colleagues, with an educational shiela from [employer]. Physical exam (Primary Care) Vital Signs: Last Vital Signs Temp 97.1 F 08/06/25 12:35 Pulse 75 08/06/25 12:35 BP 144/76 H 08/06/25 12:35 Pulse Ox 96 08/06/25 12:35 Oxygen Delivery Method Room Air 08/06/25 12:35 BMI result Body Mass Index 24.7 Tobacco/Smoking Status: Tobacco use Status Tobacco use date assessed 08/06/25 08/06/25 12:45 Patient Tobacco Use Status Never used Tobacco 08/06/25 12:37 Tobacco use type Cigarette 08/06/25 12:37 e-Cigarette/Vaping Use Never Used 08/06/25 12:37 Thrive Assessment: Date of Thrive Assessment Date Thrive assessed 04/09/25 08/06/25 12:37 Currently or been in a relationship where the following occur: No concerns reported Const General: alert; No acute distress Eyes Conjunctivae: conjunctivae normal Resp Auscultation: clear to auscultation bilaterally Cardio Rate: regular rate Rhythm: regular rhythm GI Inspection: Yes normal to inspection Extrem General: Yes normal to inspection and No edema Results AMB Hemoglobin A1c AMB Hemoglobin A1c 5.4 % Last Edit by FREDIS Machuca on 08/06/25 12:51 Coding Level of Care Code Est Pt Level 4 (98295) Complex EM visit Add On G2211 Diagnoses Essential hypertension I10 Hypertension type: essential hypertension Hypercholesterolemia E78.00 Gastroesophageal reflux disease without esophagitis K21.9 Esophagitis presence: without esophagitis Compression fracture of L1 lumbar vertebra S32.010A 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 Decrease salt intake and exercise on amlodipine 5 mg once a day metoprolol 25 mg once a day (2) Hypercholesterolemia: Code(s): E78.00 - Pure hypercholesterolemia, unspecified Category: Medical Plan: Avoid fried foods, chicken skin, eggs, butter margarine, pastries and meat. Be it pork or beef they have a lot of cholesterol LDL goal of less than 70 and triglyceride of less than 150 on atorvastatin 40 mg once a day (3) GERD (gastroesophageal reflux disease): Code(s): K21.9 - Gastro-esophageal reflux disease without esophagitis Category: Medical Qualifiers: Esophagitis presence: without esophagitis Qualified Code(s): K21.9 - Gastro-esophageal reflux disease without esophagitis Plan: Avoid the foods that causes that usually spicy foods, tomato products, juices, coffee, soda and foods that your sensitive to. After eating do not lie down, allow 3-4 hours before in lie down. And keep the head of bed above 30 degrees to avoid the acid from going up. (4) Compression fracture of L1 lumbar vertebra: Comment: indeterminate age Code(s): S32.010A - Wedge compression fracture of first lumbar vertebra, initial encounter for closed fracture Category: Medical Plan: Patient has been following up with pain management has had a curonix pns placed in but have a left lead displacement. (5) Spinal cord stimulator dysfunction: Code(s): T85.192A - Other mechanical complication of implanted electronic neurostimulator of spinal cord electrode (lead), initial encounter Category: Medical (6) Asthma: Code(s): J45.909 - Unspecified asthma, uncomplicated Category: Medical Qualifiers: Asthma complication type: uncomplicated Asthma persistence: intermittent Asthma severity: mild Qualified Code(s): J45.20 - Mild intermittent asthma, uncomplicated Plan: Continuing with montelukast. (7) Generalized anxiety disorder: Comment: Declined referral for counseling May 2023 Code(s): F41.1 - Generalized anxiety disorder Category: Medical (8) Seropositive rheumatoid arthritis: Comment: +RF++CCP Methotrexate - 2016-present Xeljanx 11/2019-06/2020 Humira 10/2018-02/2019 Simponi Aria infusions- January 2016 failed Remicade 08/2014-01/2015 failed Enbrel - prior to 2013 failed Code(s): M05.9 - Rheumatoid arthritis with rheumatoid factor, unspecified Category: Medical Plan: Patient is being followed up by Rheumatology on methotrexate (9) Transient ischemic attack (TIA): Comment: ER July 2023 with left-sided weakness Code(s): G45.9 - Transient cerebral ischemic attack, unspecified Category: Medical Plan: Continuing with anticoagulation with Plavix Plan History of Present Illness The patient is an 85-year-old female presenting for a follow-up visit after the recent insertion of a spinal cord stimulator. The patient has a history of hypertension, managed with amlodipine 5 mg and metoprolol 25 mg daily. Her blood pressure management plan includes maintaining a stable regimen to control her hypertension. She has hypercholesterolemia, with an LDL goal of less than 130 mg/dL, and is currently on atorvastatin 40 mg daily. Recent imaging showed atherosclerosis, prompting a more aggressive cholesterol management strategy. The patient has a history of asthma, which is being managed with montelukast. She has a seizure disorder, though specific management details were not discussed in this visit. The patient has osteoporosis, with the last bone density test conducted in May 2024. She has an anxiety disorder, though specific management details were not discussed in this visit. The patient has lumbar spondylosis and a compression fracture of the L1 vertebra, with a recent spinal cord stimulator insertion to manage pain. She reports persistent pain despite the intervention, with a noted displacement of the left lead of the stimulator. She has aortic stenosis, identified in a recent echocardiogram conducted in May 2025. The patient has mild anemia, with a hemoglobin level of 11.3 g/dL noted in recent blood work. Her blood sugar was elevated at 128 mg/dL, though it was not a fasting measurement. A hip x-ray under pain management revealed mild to moderate osteoarthritis of the left hip. The patient has gastroesophageal reflux disease (GERD), for which pantoprazole dosage was increased to 40 mg to manage symptoms. She reports recent onset constipation, potentially related to medication use, though she does not frequently use pain medications like tramadol or oxycodone. Preventative care measures include overdue colon cancer screening since 2010 and a mammogram last conducted in 2021. The patient discussed the shingles vaccine, which is available at the pharmacy. Health Maintenance - Colon cancer screening overdue since 2010 - Mammogram last conducted in 2021 - Shingles vaccination discussed, available at pharmacy Social History - Reports drinking two cups of coffee daily, not at night - Reports recent onset of constipation, potentially related to medication use Review of Systems - Cardiovascular: Reports swelling in the left leg. Denies chest pain. - Gastrointestinal: Reports heartburn during the day, especially after taking medications. Reports recent onset constipation. - Musculoskeletal: Reports persistent pain despite spinal cord stimulator insertion. Physical Exam - Cardiovascular: Regular rate and rhythm, no murmurs, rubs, or gallops - Respiratory: Lungs clear to auscultation bilaterally - Musculoskeletal: Swelling noted in the left leg Results - Labs: Mild anemia with hemoglobin 11.3 g/dL, elevated blood sugar at 128 mg/dL, LDL cholesterol at 65 mg/dL, triglycerides at 134 mg/dL, normal B12 and vitamin D levels - Imaging: Hip x-ray showing mild to moderate osteoarthritis of the left hip - Imaging: Echocardiogram showing aortic stenosis Plan Patient was informed and verbally consented to the use of an ambient scribe for clinic note documentation during this visit. 1. Hypertension The patient's hypertension is managed with amlodipine 5 mg and metoprolol 25 mg daily, with a focus on maintaining stable blood pressure control. 2. Hypercholesterolemia The patient is on atorvastatin 40 mg daily to manage hypercholesterolemia, with an LDL goal of less than 130 mg/dL. Recent imaging findings of atherosclerosis have prompted a more aggressive cholesterol management strategy. 3. Asthma The patient's asthma is managed with montelukast, with no acute exacerbations reported during this visit. 4. Seizure Disorder The patient has a history of seizure disorder, though specific management details were not discussed during this visit. 5. Osteoporosis The patient has osteoporosis, with the last bone density test conducted in May 2024. No specific treatment plan was discussed during this visit. 6. Anxiety Disorder The patient has an anxiety disorder, though specific management details were not discussed during this visit. 7. Lumbar Spondylosis The patient has lumbar spondylosis and a compression fracture of the L1 vertebra, with a recent spinal cord stimulator insertion to manage pain. Persistent pain is reported despite the intervention, with a noted displacement of the left lead of the stimulator. 8. Aortic Stenosis The patient has aortic stenosis, identified in a recent echocardiogram conducted in May 2025. Ongoing monitoring is planned. 9. Mild Anemia The patient has mild anemia, with a hemoglobin level of 11.3 g/dL noted in recent blood work. No specific treatment plan was discussed during this visit. 10. Elevated Blood Sugar The patient's blood sugar was elevated at 128 mg/dL, though it was not a fasting measurement. Further monitoring is planned to assess glycemic control. 11. Osteoarthritis Of The Left Hip A hip x-ray under pain management revealed mild to moderate osteoarthritis of the left hip. Pain management strategies are to be continued. 12. Gastroesophageal Reflux Disease (Gerd) The patient has GERD, for which pantoprazole dosage was increased to 40 mg to manage symptoms. 13. Constipation The patient reports recent onset constipation, potentially related to medication use, though she does not frequently use pain medications like tramadol or oxycodone. Further evaluation and management are planned. 14. Preventative Care Preventative care measures include overdue colon cancer screening since 2010, a mammogram last conducted in 2021, and discussion of the shingles vaccine, which is available at the pharmacy. Discussion Notes During the visit, we discussed the management of the patient's hypertension and hypercholesterolemia, emphasizing the importance of maintaining blood pressure and cholesterol levels within target ranges. We also reviewed the patient's recent blood work, noting mild anemia and elevated blood sugar levels. The patient was advised on the importance of regular monitoring and follow-up for these conditions. We discussed the management of GERD, with an increase in pantoprazole dosage to 40 mg. The patient was informed about the availability of the shingles vaccine at the pharmacy and the need for overdue colon cancer screening. We also addressed the patient's concerns about constipation and the potential impact of medications on bowel movements. Patient Instructions - Continue taking amlodipine and metoprolol as prescribed for blood pressure management. - Take atorvastatin daily to manage cholesterol levels. - Monitor blood sugar levels regularly and follow up as advised. - Increase pantoprazole dosage to 40 mg for GERD management. - Discuss constipation and medication use with paint technician. - Consider getting the shingles vaccine at the pharmacy. - Schedule overdue colon cancer screening. Orders: Orders AMB Hemoglobin A1c Today Z13.9 - Encounter for screening, unspecified Referrals Rheumatology Referral M05.9 - Rheumatoid arthritis with rheumatoid factor, unspecified Medications: New multivitamin 1 tab PO DAILY 90 tabs 3RF Changed From pantoprazole 20 mg PO DAILY 30 tabs 11RF To pantoprazole 40 mg PO DAILY 30 tabs 11RF Discontinued multivitamin Discontinued Reason: Doctor's Order 1 tab PO DAILY 90 tabs 0RF meloxicam Discontinued Reason: Doctor's Order 15 mg PO DAILY 90 tabs 1RF
--- OUTSIDE RECORDS SUMMARY | 2025-08-06 13:50 | XMS_ITS | Encounter Summary ---
Author Organization [facility] Address [address] [place] [address] Care Team Providers Care Plate Maker Name Role Phone Unavailable Primary Care Provider Unavailabl e Encounter Details Date Type Department Care Team (Late st Contact Info) Description 10/04/2024 Lab Requisition [facility] Lab [address] [place] [address] Angelo Kasper MD [address] [place] [phone] Encounter for other general examination Social History [...] LAB CHEMISTRY METHOD 10/04/2024 10:45 AM EST [facility] Blood Venous blood specimen / Unknown Venipuncture / Unknown 10/04/2024 5:56 AM EST 10/04/2024 9:06 AM EST Angelo Kasper MD LAB BLOOD ORDERABLES Final Res ult [facility] [address] [place] [address], [place] [phone] documented in this encounter Visit Diagnoses Diagnosis Encounter for other general examination documented in this encounter
--- OUTSIDE RECORDS SUMMARY | 2025-08-06 13:50 | XMS_ITS | Encounter Summary ---
Author Organization [facility] Address [address] [place] [address] Care Team Providers Care Extension Service Specialist Name Role Phone Unavailable Primary Care Provider Unavailabl e Encounter Details Date Type Department Care Team (Late st Contact Info) Description 10/07/2024 Lab Requisition [facility] Lab [address] [facility] [place] [address] Angelo Kasper MD [address] [place] [phone] Encounter for other general examination Social History [...] Res ult [facility] [address] [place] [address], documented in this encounter Visit Diagnoses Diagnosis Encounter for other general examination documented in this encounter
--- OUTSIDE RECORDS SUMMARY | 2025-08-06 13:50 | XMS_ITS | Clinical Summary ---
Author Organization [facility] Address [address] [place] [address] Care Team Providers Care Academic Assistant Name Role Phone Unavailable Primary Care Provider [...]
--- OUTSIDE RECORDS SUMMARY | 2025-08-06 13:50 | XMS_ITS | Encounter Summary ---
Author Organization [facility] Address [address] [place] [address] Care Team Providers Care Import/Export Analyst Name Role Phone Unavailable Primary Care Provider Unavailabl e Encounter Details Date Type Department Care Team (Late st Contact Info) Description 10/04/2024 Lab Requisition [facility] - Main Lab [address] [facility] [place] [address] Angelo Kasper MD [address] [place] [address] [phone] Encounter for other general examination Social History [...] microscopic and culture (10/04/2024 4:00 AM EST) [facility] [place] Urine 1.018 1.003 - 1.030 LAB URINALYSIS - AUTOMATED METHOD 10/04/2024 9:55 AM [facility] pH, Urine 7.0 5.0 - [...] MD LAB URINE ORDERABLES Final Res ult [facility] [address] [place] [address], [place] [phone] * Navarro urine culture tube (10/04/2024 4:00 AM EST) Extra Tube Hold for add-ons. 10/04/2024 11:01 AM EST [facility] Comment:Auto resulted. Urine Urine specimen obtained by clean catch procedure / Unknown Non-blood Collection / Unknown 10/04/2024 4:00 AM EST 10/04/2024 9:37 AM EST us Angelo Kasper MD LAB URINE ORDERABLES Final Res ult [facility] [address] [place] [address], [place] [phone] * Sodium, urine, random (10/04/2024 4:00 AM EST) Sodium, Ur 87 mmol/L LAB CHEMISTRY METHOD 10/04/2024 10:46 AM EST [facility] Urine Urine specimen obtained by clean catch procedure / Unknown Non-blood Collection / Unknown 10/04/2024 4:00 AM EST 10/04/2024 9:37 AM EST us Angelo Kasper MD LAB URINE ORDERABLES Final Res ult [facility] [address] [place] [address], [place] [phone] * Osmolality, urine (10/04/2024 4:00 AM EST) Osmolality, Urine 475 300 - 1,300 mOsm/kg LAB CHEMISTRY METHOD 10/04/2024 10:45 AM EST [facility] Urine Urine specimen obtained by clean catch procedure / Unknown Non-blood Collection / Unknown 10/04/2024 4:00 AM EST 10/04/2024 9:37 AM EST us Angelo Kasper MD LAB URINE ORDERABLES Final Res ult [facility] [address] [place] [address], documented in this encounter Visit Diagnoses Diagnosis Encounter for other general examination documented in this encounter
--- OUTSIDE RECORDS SUMMARY | 2025-08-06 13:50 | XMS_ITS | Encounter Summary ---
Author Organization [email or web address] Address [address] [place] [address] Care Team Providers Care Welfare Administrator Name Role Phone Unavailable Primary Care Provider Unavailabl e Encounter Details Date Type Department Care Team (Late st Contact Info) Description 09/29/[address] [facility] - Main Lab [address] [place] [address] Angelo Kasper MD [address] [place] [address] Encounter for other general examination Social History [...] LAB HEMETOLOGY METHOD 09/29/2024 11:08 AM EST [facility] RBC 4.10 3.80 - 4.80 M/mcL LAB HEMETOLOGY METHOD 09/29/2024 11:[address] [facility] LAB Hemoglobin 12.5 11.5 - 16.0 g/dL LAB HEMETOLOGY METHOD 09/29/2024 11:[address] [facility] LAB Hematocrit 39.9 35.0 - 47.0 % LAB HEMETOLOGY METHOD 09/29/2024 11:[address] [facility] LAB MCV 96.8 79.0 - 98.0 FL LAB HEMETOLOGY METHOD 09/29/2024 11:[address] [facility] LAB MCH 30.3 27.0 - 32.0 pcg LAB HEMETOLOGY METHOD 09/29/2024 11:[address] [facility] LAB MCHC 31.3(L) 32.0 - 37.0 g/dL LAB HEMETOLOGY METHOD 09/29/2024 11:[address] [facility] LAB RDW 14.0 11.0 - 15.0 % LAB HEMETOLOGY METHOD 09/29/2024 11:[address] [facility] LAB Platelets 293 130 - 400 K/mcL LAB HEMETOLOGY METHOD 09/29/2024 11:[address] [facility] MPV 9.5 7.0 - 11.0 FL LAB HEMETOLOGY METHOD 09/29/2024 11:[address] [facility] NRBC 0.0 <1.0 % LAB HEMETOLOGY METHOD 09/29/2024 11:[address] [facility] NRBC Absolute 0.00 <0.10 K/mcL LAB HEMETOLOGY METHOD 09/29/2024 11:[address] [facility] Neutrophils Relative 54.5 % LAB HEMETOLOGY METHOD 09/29/2024 11:[address] [facility] Lymphocytes Relative 34.1 % LAB HEMETOLOGY METHOD 09/29/2024 11:[address] [facility] Monocytes Relative 5.0 % LAB HEMETOLOGY METHOD 09/29/2024 11:[address] [facility] Eosinophils Relative 4.3 % LAB HEMETOLOGY METHOD 09/29/2024 11:[address] [facility] Basophils Relative 1.0 % LAB HEMETOLOGY METHOD 09/29/2024 11:[address] [facility] Immature Granulocytes Relative 1.1 % LAB HEMETOLOGY METHOD 09/29/2024 11:[address] [facility] Neutrophils Absolute 6.25 1.50 - 7.00 K/mcL LAB HEMETOLOGY METHOD 09/29/2024 11:[address] [facility] Lymphocytes Absolute 3.93 1.00 - 5.00 K/mcL LAB HEMETOLOGY METHOD 09/29/2024 11:[address] [facility] Monocytes Absolute 0.58 0.20 - 1.00 K/mcL LAB HEMETOLOGY METHOD 09/29/2024 11:[address] [facility] Eosinophils Absolute 0.50 0.00 - 0.50 K/mcL LAB HEMETOLOGY METHOD 09/29/2024 11:[address] [facility] Basophils Absolute 0.12 0.00 - 0.20 K/mcL LAB HEMETOLOGY METHOD 09/29/2024 11:[address] [facility] Immature Granulocytes Absolute 0.13(H) 0.00 - 0.03 K/mcL LAB HEMETOLOGY METHOD 09/29/2024 11:[address] [facility] Blood Venous blood specimen / Unknown Venipuncture / Unknown 09/29/2024 7:35 AM EST 09/29/2024 10:30 AM EST us Angelo Kasper MD LAB BLOOD ORDERABLES Final Res ult [facility] [address] [place] [address], [place] [phone] * Magnesium (09/29/2024 7:35 AM EST) [facility] Magnesium 2.1 1.9 - 2.6 mg/dL LAB CHEMISTRY METHOD 09/29/2024 11:09 AM EST [facility] Blood Venous blood specimen / Unknown Venipuncture / Unknown 09/29/2024 7:35 AM EST 09/29/2024 10:30 AM EST us Angelo Kasper MD LAB BLOOD ORDERABLES Final Res ult [facility] [address] [place] [address], [place] [phone] * (ABNORMAL) Comprehensive metabolic panel (09/29/2024 7:35 AM EST) [facility] Sodium 138 133 - 145 mmol/L LAB CHEMISTRY METHOD 09/29/2024 11:[address] [facility] Potassium 4.8 3.5 - 5.5 mmol/L LAB CHEMISTRY METHOD 09/29/2024 11:[address] [facility] Chloride 107 96 - 110 mmol/L LAB CHEMISTRY METHOD 09/29/2024 11:[address] [facility] CO2 24 21 - 32 mmol/L LAB CHEMISTRY METHOD 09/29/2024 11:[address] [facility] Anion Gap 7 3 - 11 LAB CHEMISTRY METHOD 09/29/2024 11:[address] [facility] Glucose 75 70 - 100 mg/dL LAB CHEMISTRY METHOD 09/29/2024 11:[address] [facility] BUN 16 5 - 25 mg/dL LAB CHEMISTRY METHOD 09/29/2024 11:[address] [facility] Creatinine 0.79 0.50 - 1.10 mg/dL LAB CHEMISTRY METHOD 09/29/2024 11:[address] [facility] LAB eGFR 73 >=60 mL/min/1. 73m2 LAB CHEMISTRY METHOD 09/29/2024 11:[address] [facility] Comment:Calculation based on the Chronic Kidney Disease Epidemiology Collaboration (CKD-EPI) equation refit without adjustment for race. BUN/Creatinine Ratio 20.3 LAB CHEMISTRY METHOD 09/29/2024 11:[address] [facility] Calcium 9.3 8.5 - 10.5 mg/dL LAB CHEMISTRY METHOD 09/29/2024 11:[address] [facility] AST (SGOT) 29 10 - 42 unit/L LAB CHEMISTRY METHOD 09/29/2024 11:[address] [facility] ALT (SGPT) 33 10 - 60 unit/L LAB CHEMISTRY METHOD 09/29/2024 11:[address] [facility] Alkaline Phosphatase 134(H) 42 - 121 unit/L LAB CHEMISTRY METHOD 09/29/2024 11:[address] [facility] Total Protein 6.8 6.0 - 8.0 g/dL LAB CHEMISTRY METHOD 09/29/2024 11:[address] [facility] Albumin 3.5 3.2 - 5.0 g/dL LAB CHEMISTRY METHOD 09/29/2024 11:[address] [facility] Total Bilirubin 0.5 0.0 - 1.4 mg/dL LAB CHEMISTRY METHOD 09/29/2024 11:[address] [facility] Blood Venous blood specimen / Unknown Venipuncture / Unknown 09/29/2024 7:35 AM EST 09/29/2024 10:30 AM EST us Angelo Kasper MD LAB BLOOD ORDERABLES Final Res ult [facility] [address] [place] [address], documented in this encounter Visit Diagnoses Diagnosis Encounter for other general examination documented in this encounter
--- OUTSIDE RECORDS SUMMARY | 2025-08-06 13:50 | XMS_ITS | Clinical Summary ---
Author Organization [facility] Address [address] [place] [address] Phone Care Team Providers Care Casino Floor Person Name Role Phone Unavailable Primary Care Provider [...]
--- OUTSIDE RECORDS SUMMARY | 2025-08-06 13:50 | XMS_ITS | Encounter Summary ---
Author Organization [facility] Address [address] [place] [address] Care Team Providers Care Geophysical Party Chief Name Role Phone Unavailable Primary Care Provider Unavailabl e Encounter Details Date Type Department Care Team (Late st Contact Info) Description 10/05/2024 Lab Requisition [facility] - Main Lab [address] [facility] [place] [address] Angelo Kasper MD [address] [place] [address] Encounter for other general examination Social History [...] LAB CHEMISTRY METHOD 10/05/2024 11:02 AM EST [facility] Potassium 4.1 3.5 - 5.5 mmol/L LAB CHEMISTRY METHOD 10/05/2024 11:02 AM EST [facility] Chloride 93(L) 96 - 110 mmol/L LAB CHEMISTRY METHOD 10/05/2024 11:02 AM EST [facility] CO2 27 21 - 32 mmol/L LAB CHEMISTRY METHOD 10/05/2024 11:02 AM EST [facility] Anion Gap 6 3 - 11 LAB CHEMISTRY METHOD 10/05/2024 11:02 AM [facility] LAB Glucose 70 70 - 100 mg/dL LAB CHEMISTRY METHOD 10/05/2024 11:02 AM [facility] BUN 11 5 - 25 mg/dL LAB CHEMISTRY METHOD 10/05/2024 11:02 AM [facility] LAB Creatinine 0.71 0.50 - 1.10 mg/dL LAB CHEMISTRY METHOD 10/05/2024 11:02 AM [facility] LAB eGFR 83 >=60 mL/min/1. 73m2 LAB CHEMISTRY METHOD 10/05/2024 11:02 AM [facility] LAB Comment:Calculation based on the Chronic Kidney Disease Epidemiology Collaboration (CKD-EPI) equation refit without adjustment for race. BUN/Creatinine Ratio 15.5 LAB CHEMISTRY METHOD 10/05/2024 11:02 AM [facility] LAB Calcium 8.6 8.5 - 10.5 mg/dL LAB CHEMISTRY METHOD 10/05/2024 11:02 AM [facility] LAB Blood Venous blood specimen / Unknown Venipuncture / Unknown 10/05/2024 6:03 AM EST 10/05/2024 9:38 AM EST us Angelo Kasper MD LAB BLOOD ORDERABLES Final Res ult [facility] [address] [place] [address], documented in this encounter Visit Diagnoses Diagnosis Encounter for other general examination documented in this encounter
--- OUTSIDE RECORDS SUMMARY | 2025-08-06 13:50 | XMS_ITS | Encounter Summary ---
Author Organization [employer] [facility] Address [address] [place] [address] Care Team Providers Care Etymology Teacher Name Role Phone Unavailable Primary Care Provider Unavailabl e Encounter Details Date Type Department Care Team (Late st Contact Info) Description 10/09/2024 Lab Requisition [facility] Lab [address] [facility] [employer] [address] Angelo Kasper MD [address] [place] [address] Encounter for other general examination Social History [...] Res ult [facility] [address] [place] [address], documented in this encounter Visit Diagnoses Diagnosis Encounter for other general examination documented in this encounter
--- OUTSIDE RECORDS SUMMARY | 2025-08-06 13:50 | XMS_ITS | Encounter Summary ---
Author Organization [employer] [facility] Address [address] [place] [address] Care Team Providers Care Tumbler Drier Operator Name Role Phone Unavailable Primary Care Provider Unavailabl e Encounter Details Date Type Department Care Team (Late st Contact Info) Description 09/30/2024 Lab Requisition [facility] - Main Lab [address] [place] [address] Angelo Kasper MD [address] [place] [address] [phone] Encounter for other general examination Social History [...] LAB HEMETOLOGY METHOD 09/30/2024 1:38 PM EST [facility] RBC 4.10 3.80 - 4.80 M/mcL LAB HEMETOLOGY METHOD 09/30/2024 1:38 PM EST [facility] Hemoglobin 12.4 11.5 - 16.0 g/dL LAB HEMETOLOGY METHOD 09/30/2024 1:38 PM EST [facility] Hematocrit 38.8 35.0 - 47.0 % LAB HEMETOLOGY METHOD 09/30/2024 1:38 PM [facility] LAB MCV 95.1 79.0 - 98.0 FL LAB HEMETOLOGY METHOD 09/30/2024 1:38 PM [facility] LAB MCH 30.4 27.0 - 32.0 pcg LAB HEMETOLOGY METHOD 09/30/2024 1:38 PM EST [facility] LAB MCHC 32.0 32.0 - 37.0 g/dL LAB HEMETOLOGY METHOD 09/30/2024 1:38 PM [facility] LAB RDW 14.1 11.0 - 15.0 % LAB HEMETOLOGY METHOD 09/30/2024 1:38 PM [facility] LAB Platelets 279 130 - 400 K/mcL LAB HEMETOLOGY METHOD 09/30/2024 1:38 PM EST [facility] LAB MPV 9.4 7.0 - 11.0 [...] Res ult [facility] [address] [place] [address], * (ABNORMAL) Basic metabolic panel (09/30/2024 7:07 [...] BLOOD ORDERABLES Final Res ult [facility] [address] [place] [address], documented in this encounter Visit Diagnoses Diagnosis Encounter for other general examination documented in this encounter
--- OUTSIDE RECORDS SUMMARY | 2025-08-06 13:50 | XMS_ITS | Encounter Summary ---
Author Organization [employer] [facility] Address [address] [place] [address] Care Team Providers Care Artist'S Manager Name Role Phone Unavailable Primary Care Provider Unavailabl e Encounter Details Date Type Department Care Team (Late st Contact Info) Description 10/03/2024 Lab Requisition [facility] - Main Lab [address] [place] [address] Angelo Kasper MD [address] [place] [address] Encounter for other general examination Social History [...] AM EST) WBC 4.2(L) 4.8 - 10.8 K/[facility] LAB HEMETOLOGY METHOD 10/03/2024 11:02 AM EST [facility] LAB RBC 4.00 3.80 - 4.80 M/[facility] LAB HEMETOLOGY METHOD 10/03/2024 11:02 [...] ult [facility] LAB [address] [place] [address], * (ABNORMAL) Basic metabolic panel (10/03/2024 6:25 [...] MD LAB BLOOD ORDERABLES Final Res ult [facility] [address] [place] [address], documented in this encounter Visit Diagnoses Diagnosis Encounter for other general examination documented in this encounter
--- OUTSIDE RECORDS SUMMARY | 2025-08-06 13:50 | XMS_ITS | Encounter Summary ---
Author Organization [facility] Address [address] [place] [address] Care Team Providers Care Research Staff Member Name Role Phone Unavailable Primary Care Provider Unavailabl e Encounter Details Date Type Department Care Team (Late st Contact Info) Description 10/06/2024 Lab Requisition [facility] - Main Lab [address] [facility] [place] [address] Angelo Kasper MD [address] [place] [address] Encounter for other general examination Social History [...] LAB CHEMISTRY METHOD 10/06/2024 9:33 AM EST [facility] LAB Blood Venous blood specimen / Unknown Venipuncture / Unknown 10/06/2024 5:48 AM EST 10/06/2024 6:48 AM EST Narrative [facility] - 10/06/2024 9:33 AM EST [facility] 8 AM SPEC: 5.0-23.0 mcg/dL 4 PM SPEC: 3.0-16.0 mcg/dL 8 PM SPEC: <5.0 mcg/dL Angelo Kasper MD LAB BLOOD ORDERABLES Final Res ult Performing Organization Address City/[facility]/ZIP Co de Phone Number [facility] [address] [place] [address], [place] [phone] * Thyroid stimulating hormone (10/06/2024 5:48 AM EST) Pathologist [facility] TSH 2.14 0.40 - 4.00 mcIU/mL LAB CHEMISTRY METHOD 10/06/2024 8:28 AM EST [facility] Blood Venous blood specimen / Unknown Venipuncture / Unknown 10/06/2024 5:48 AM EST 10/06/2024 6:48 AM EST us Angelo Kasper MD LAB BLOOD ORDERABLES Final Res ult [employer] Organization Address City/[facility]/ZIP Co de Phone Number [facility] [address] [place] [address], [place] [phone] * (ABNORMAL) Basic metabolic panel (10/06/2024 5:48 AM EST) Sodium 130(L) 133 - 145 mmol/L LAB CHEMISTRY METHOD 10/06/2024 7:23 AM EST [facility] Potassium 4.0 3.5 - 5.5 mmol/L LAB CHEMISTRY METHOD 10/06/2024 7:23 AM EST [facility] Chloride 98 96 - 110 mmol/L LAB CHEMISTRY METHOD 10/06/2024 7:23 AM EST [facility] CO2 26 21 - 32 mmol/L LAB CHEMISTRY METHOD 10/06/2024 7:23 AM EST [facility] Anion [...] Res ult [facility] [address] [place] [address], documented in this encounter Visit Diagnoses Diagnosis Encounter for other general examination documented in this encounter
--- OUTSIDE RECORDS SUMMARY | 2025-08-06 13:50 | XMS_ITS | Encounter Summary ---
Author Organization [employer] [facility] Address [address] [place] [address] Care Team Providers Care Driller Machine Name Role Phone Unavailable Primary Care Provider Unavailabl e Encounter Details Date Type Department Care Team (Late st Contact Info) Description 10/11/[address] [facility] Lab [address] [facility] [place] [address] Angelo Kasper MD [address] [place] [address] Encounter for other general examination Social History [...] LAB CHEMISTRY METHOD 10/11/2024 1:13 PM EST [facility] Potassium 4.0 3.5 - 5.5 mmol/L LAB CHEMISTRY METHOD 10/11/2024 1:13 PM EST [facility] LAB Chloride 102 96 - 110 mmol/L LAB CHEMISTRY METHOD 10/11/2024 1:13 PM EST [facility] LAB CO2 23 21 - 32 mmol/L LAB CHEMISTRY METHOD 10/11/2024 1:13 PM EST [facility] LAB Anion Gap 9 [...] ult [facility] [address] [place] [address], documented in this encounter Visit Diagnoses Diagnosis Encounter for other general examination documented in this encounter
== END 2025-08-06 13:03 | disposition home or self-care (01) ==
LOC: HO.HMCH 12:24
PROVIDERS: PCP Internal Medicine; Visit Provider Internal Medicine
DX: I10 Essential (primary) hypertension (principal); S32.010A Wedge compression fracture of first lumbar vertebra, initial encounter for closed fracture; M05.9 Rheumatoid arthritis with rheumatoid factor, unspecified; E78.00 Pure hypercholesterolemia, unspecified; K21.9 Gastro-esophageal reflux disease without esophagitis; T85.192A Other mechanical complication of implanted electronic neurostimulator of spinal cord electrode (lead), initial encounter; J45.20 Mild intermittent asthma, uncomplicated; F41.1 Generalized anxiety disorder; G45.9 Transient cerebral ischemic attack, unspecified; Z13.9 Encounter for screening, unspecified

== ENCOUNTER → 2025-08-06 12:23 | Outpatient (BNVA) | payer MEDICARE, OTHER, SELFPAY | PROVIDERS: PCP Internal Medicine; Visit Provider Internal Medicine | DX: I10 Essential (primary) hypertension (principal); E78.00 Pure hypercholesterolemia, unspecified; K21.9 Gastro-esophageal reflux disease without esophagitis; J45.20 Mild intermittent asthma, uncomplicated; F41.1 Generalized anxiety disorder; M05.9 Rheumatoid arthritis with rheumatoid factor, unspecified; M81.0 Age-related osteoporosis without current pathological fracture; G40.909 Epilepsy, unspecified, not intractable, without status epilepticus; M47.816 Spondylosis without myelopathy or radiculopathy, lumbar region; I35.0 Nonrheumatic aortic (valve) stenosis; D64.9 Anemia, unspecified; M25.552 Pain in left hip; K59.00 Constipation, unspecified; R73.9 Hyperglycemia, unspecified; T85.192A Other mechanical complication of implanted electronic neurostimulator of spinal cord electrode (lead), initial encounter; S32.010A Wedge compression fracture of first lumbar vertebra, initial encounter for closed fracture; X58.XXXA Exposure to other specified factors, initial encounter; Y93.9 Activity, unspecified; Y92.9 Unspecified place or not applicable; Y99.9 Unspecified external cause status; Z86.73 Personal history of transient ischemic attack (TIA), and cerebral infarction without residual deficits | CPT/HCPCS: 83036; 99212 ==

== ENCOUNTER 2025-08-07 13:32 | Outpatient (AMB) | payer MEDICARE, OTHER, SELFPAY ==
--- NOTE | 2025-08-07 13:50 | A.OFFVIS_ITS ---
Vital Signs 08/07/25 13:51 Weight 148 lb BP 175/77 H Blood Pressure Location Lt brachial Position Sitting Respiration 18 Pulse 86 Pulse Source Pulse Oximeter Pulse Oximetry (%) 95 Intake Visit Reasons: 2 WEEK FOLLOW UP C.O.D. Clerk Required: No Allergies alendronate sodium (From FOSAMAX) Allergy (Severe, Verified 08/07/25 13:50) ANAPHYLAXIS lisinopril (LISINOPRIL) Allergy (Severe, Verified 08/07/25 13:50) ANAPHYLAXIS, cough clarithromycin (CLARITHROMYCIN) Allergy (Intermediate, Verified 08/07/25 13:50) CONFUSION, sores on tongue, dry mouth simvastatin (SIMVASTATIN) Allergy (Mild, Verified 08/07/25 13:50) DRY THROAT, achy, confusion HPI Comments Details: Ellie Falcon) is in my office today to discuss possibility of the treatment of her bilateral sacroiliitis and sacroiliac joint dysfunction. She was implanted with cure on X PNS bilateral at the position of sacroiliac joint innervation. She reported excellent pain relief initially after surgery however soon after surgery she dislodged her left electrode. We tried sacroiliac joint belt for 2 weeks and she reports very minimal pain improvement from the SI joint belt. She requests me to perform revision of the cure on X PNS. She states that the right electrode is still providing her excellent pain relief however on the left she does not feel any stimulation. On the x-ray the position of the left electrode is grossly dislodged. She asks me to perform revision of the device. I will schedule her for the procedure as soon as possible. Prior: She reports severe pain in the lower lumbar spine. She reports pain exacerbates with flexing forward and lifting things from the ground. On physical examination attention was attracted to signs of sacroiliitis. In the past she received from me diagnostic sacroiliac joint injection with 60% pain improvement. Now she reports severe pain 10/10 today, I feel like I have to perform again diagnostic sacroiliac joint injection. This patient was diagnose recently with L1 compression fracture. There is widespread diffuse osteopenia on her x-rays well. Therefore injection of the steroids will not be a good idea, however we can try peripheral nerve stimulation sprint versus peripheral nerve sprint stimulation cure on X. In regarding of her or diagnostic medial branch block she reported significant pain relieve on the left side immediately after the injection however she reported pain aggravation on the right side due to injection immediately after injection.? However on bilateral sacroiliac joint diagnostic injection on 12/13/2022 she reported 50-60% pain improvement after the injection.? The pain of this patient is most likely multifactorial.? She has significant rheumatoid arthritis which effects her shoulder joints her lumbar spine as well as her sacroiliac joints.? I offered her to perform bilateral sacroiliac joint injection therapeutic this time.? I will schedule this procedure without sedation.? She has an appointment with Dr. Guidry for evaluation of her shoulder pain.? Because of her severe osteopenia I would not recommend steroid injections for this patient. [facility] Medical History (Updated 07/10/25 @ 12:06 by Sotero Swann MD) Vomiting High cholesterol Pre-op chest exam Meniere disease Transient ischemic attack (TIA) Osteoarthritis of shoulders, bilateral Osteoarthritis of carpometacarpal (CMC) joint of right thumb Overweight (BMI 25.0-29.9) Thrush, oral Nondisplaced fracture of fifth metatarsal bone, left foot, subsequent encounter for fracture with nonunion Seropositive rheumatoid arthritis Fracture of 5th metatarsal Fracture of fifth metatarsal bone of right foot Polymyalgia rheumatica Anxiety and depression Lumbar degenerative disc disease Osteoporosis Gout Restless leg syndrome Hypergammaglobulinemia GERD (gastroesophageal reflux disease) Seizure disorder Hypertension Hypercholesterolemia Asthma Peripheral neuropathy Rheumatoid arthritis Surgical History History of surgery (02/07/25) History of bilateral knee replacement Corneal transplant status History of arthroplasty of right hip History of total abdominal hysterectomy History of corneal transplant H/O left knee surgery History of open reduction and internal fixation (ORIF) procedure History of cholecystectomy History of appendectomy Family History Father CVD (cardiovascular disease) Mother No problems noted. Social History Household Members: Significant Other Household Members Other:: parter Housing: House Are you a primary child adolescent care to a significant other at home: No Do you presently have visiting nurse or other home services: No Alcohol intake: current Alcohol intake frequency: holidays/special occasions only Alcohol type: wine Comment: counts correct Patient Tobacco Use Status: Never used Tobacco Tobacco use type: Cigarette e-Cigarette/Vaping Use: Never Used Second Hand Smoke Exposure: No Advance Directives Date on File: 07/11/23 service: No Current occupational status: retired Cognitive needs: Yes (walker) Hearing needs: Yes Vision needs: Yes Review of Systems Const All systems reviewed & are unremarkable except as noted in HPI and below Physical Exam Vital Signs: Last Vital Signs Pulse 86 08/07/25 13:51 Resp 18 08/07/25 13:51 BP 175/77 H 08/07/25 13:51 Pulse Ox 95 08/07/25 13:51 Const General: cooperative, comfortable and no acute distress Nutritional Appearance: well nourished Orientation/consciousness: patient oriented x3 Limitations: physical limitations Chest Chest palpation & inspection: normal inspection of the chest Resp Effort & Inspection: normal respiratory effort, able to speak in complete sentences, normal respiratory pattern, no audible wheezes, no cough, respiratory effort not decreased, no grunting and not labored Cardio Jugular venous distension: no JVD GI Inspection: Yes normal to inspection Back/Spine/Pelvis Other: Tenderness on palpation in paraspinal spinal region of lumbar spine.. Danial test is negative bilaterally however pelvis compression test, thigh thrust test, Gaenslen test positive bilaterally. Fourteen finger test is positive bilaterally more on the left. Neuro General: patient oriented x3 Assessment & Plan Assessment & Plan (1) Spinal cord stimulator dysfunction: Code(s): T85.192A - Other mechanical complication of implanted electronic neurostimulator of spinal cord electrode (lead), initial encounter Category: Medical (2) Rheumatoid arthritis: Code(s): M06.9 - Rheumatoid arthritis, unspecified Category: Medical (3) Spondylosis of lumbar spine: Code(s): M47.816 - Spondylosis without myelopathy or radiculopathy, lumbar region Category: Medical (4) Sacroiliitis: Code(s): M46.1 - Sacroiliitis, not elsewhere classified Category: Medical (5) Pain of both sacroiliac joints: Code(s): M53.3 - Sacrococcygeal disorders, not elsewhere classified Category: Medical (6) Chronic pain syndrome: Code(s): G89.4 - Chronic pain syndrome Category: Medical (7) Sacroiliac joint dysfunction of both sides: Code(s): M53.3 - Sacrococcygeal disorders, not elsewhere classified Category: Medical (8) Compression fracture of L1 lumbar vertebra: Comment: indeterminate age Code(s): S32.010A - Wedge compression fracture of first lumbar vertebra, initial encounter for closed fracture Category: Medical Plan Medial branch block injection on 12/06/2022 resulted in profound pain relieve on the left side however significant aggravation of the pain on the right side. Sacroiliac joint injection resulted in 50-60% pain improvement on bilateral pain. Repeats diagnostic sacroiliac joint injection resulted in 60-70% pain improvement. Curonix PNS Trial of bilateral stimulation of sacroiliac joint innervation resulted in 75% pain improvement. Implantation of the device was performed and patient reports very good pain relief on the right however she denies pain improvement on the left. She went for x-ray in, it demonstrated left lead displacement. She requests me to perform the revision of the Curonix PNS. I will schedule her for the procedure as soon as possible. Coding Level of Care Code Est Pt Level 3 (10572) Diagnoses Spinal cord stimulator dysfunction T85.192A Rheumatoid arthritis M06.9 Spondylosis of lumbar spine M47.816 Sacroiliitis M46.1 Pain of both sacroiliac joints M53.3 Chronic pain syndrome G89.4 Sacroiliac joint dysfunction of both sides M53.3 Compression fracture of L1 lumbar vertebra S32.010A
[2025-08-07 13:51] VITALS: BP 175/77; PULSE 86; RESP 18; O2SAT 95
--- OUTSIDE RECORDS SUMMARY | 2025-08-07 15:02 | XMS_ITS | Clinical Summary ---
Author Organization [facility] Address [address] [place] [address] Care Team Providers Care Bark Fitter Name Role Phone Unavailable Primary Care Provider [...]
--- OUTSIDE RECORDS SUMMARY | 2025-08-07 15:03 | XMS_ITS | Encounter Summary ---
Author Organization [employer] Address [address] [place] [address] Care Team Providers Care Venetian Blind Assembler Name Role Phone Unavailable Primary Care Provider Unavailabl e Encounter Details Date Type Department Care Team (Late st Contact Info) Description 10/04/2024 Lab Requisition [facility] - Main Lab 299 [facility] [place] [address] Angelo Kasper MD [address] [place] [address] [phone] Encounter for other general examination Social History [...] microscopic and culture (10/04/2024 4:00 AM EST) [facility] Specific [place] Urine 1.018 1.003 - 1.030 LAB URINALYSIS - AUTOMATED METHOD 10/04/2024 9:55 AM [facility] pH, Urine 7.0 5.0 - 8.0 pH LAB URINALYSIS - AUTOMATED METHOD 10/04/2024 9:55 AM [facility] Leukocytes, Urine Negative Negative LAB URINALYSIS - AUTOMATED METHOD 10/04/2024 9:55 AM [facility] Nitrite, Urine Negative Negative LAB URINALYSIS - AUTOMATED METHOD 10/04/2024 9:55 AM [facility] Protein, Urine Negative <=Trace mg/dL LAB URINALYSIS - AUTOMATED METHOD 10/04/2024 9:55 AM [facility] Glucose, Urine Negative Negative mg/dL LAB URINALYSIS - AUTOMATED METHOD 10/04/2024 9:55 AM [facility] Ketones, Urine Trace(A) Negative mg/dL LAB URINALYSIS - AUTOMATED METHOD 10/04/2024 9:55 AM [facility] LAB Urobilinogen, Urine 1.0 0.2 - 1.0 mg/dL LAB URINALYSIS - AUTOMATED METHOD 10/04/2024 9:55 AM [facility] Bilirubin, Urine Negative Negative LAB URINALYSIS - AUTOMATED METHOD 10/04/2024 9:55 AM [facility] Blood, Urine Negative Negative LAB URINALYSIS - AUTOMATED METHOD 10/04/2024 9:55 AM [facility] Urine Urine specimen obtained by clean catch procedure / Unknown Non-blood Collection / Unknown 10/04/2024 4:00 AM EST 10/04/2024 9:37 AM EST us Angelo Kasper MD LAB URINE ORDERABLES Final Res ult [facility] LAB [address] [place] [address], [place] [phone] * [place] urine culture tube (10/04/2024 4:00 AM EST) Extra Tube Hold for add-ons. 10/04/2024 11:01 AM EST [facility] LAB Comment:Auto resulted. Urine Urine specimen obtained by clean catch procedure / Unknown Non-blood Collection / Unknown 10/04/2024 4:00 AM EST 10/04/2024 9:37 AM EST us Angelo Kasper MD LAB URINE ORDERABLES Final Res ult [facility] [address] [place] [address], [place] [phone] * Sodium, urine, random (10/04/2024 4:00 AM EST) Sodium, Ur 87 mmol/L LAB CHEMISTRY METHOD 10/04/2024 10:46 AM EST [facility] Urine Urine specimen obtained by clean catch procedure / Unknown Non-blood Collection / Unknown 10/04/2024 4:00 AM EST 10/04/2024 9:37 AM EST us Angelo Kasper MD LAB URINE ORDERABLES Final Res ult [facility] [address] [place] [address], [place] [phone] * Osmolality, urine (10/04/2024 4:00 AM EST) Osmolality, Urine 475 300 - 1,300 mOsm/kg LAB CHEMISTRY METHOD 10/04/2024 10:45 AM EST [facility] Urine Urine specimen obtained by clean catch procedure / Unknown Non-blood Collection / Unknown 10/04/2024 4:00 AM EST 10/04/2024 9:37 AM EST us Angelo Kasper MD LAB URINE ORDERABLES Final Res ult [facility] ([facility]) [facility] LAB [address] [place] [address], documented in this encounter Visit Diagnoses Diagnosis Encounter for other general examination documented in this encounter
--- OUTSIDE RECORDS SUMMARY | 2025-08-07 15:03 | XMS_ITS | Encounter Summary ---
Author Organization [employer] Address [address] [place] [address] Care Team Providers Care Nuclear Control Operator Name Role Phone Unavailable Primary Care Provider Unavailabl e Encounter Details Date Type Department Care Team (Late st Contact Info) Description 09/29/2024 Lab Requisition [facility] - Main Lab [address] [place] [address] Angelo Kasper MD [address] [place] [phone] Encounter for other general examination Social History [...] LAB HEMETOLOGY METHOD 09/29/2024 11:08 AM EST [facility] ([facility] RBC [...] Res ult [facility] LAB [address] [place] [address], [place] [phone] * Magnesium (09/29/2024 7:35 AM EST) [facility] Magnesium 2.1 1.9 - 2.6 mg/dL LAB CHEMISTRY METHOD 09/29/2024 11:09 AM EST [facility] Blood Venous blood specimen / Unknown Venipuncture / Unknown 09/29/2024 7:35 AM EST 09/29/2024 10:30 AM EST us Angelo Kasper MD LAB BLOOD ORDERABLES Final Res ult [facility] [address] [place] [address], [place] [phone] * (ABNORMAL) Comprehensive metabolic panel (09/29/2024 7:35 AM EST) [facility] Sodium 138 133 - 145 [...] AM [facility] LAB Comment:Calculation based on the [...] Res ult [facility] [address] [place] [address], documented in this encounter Visit Diagnoses Diagnosis Encounter for other general examination documented in this encounter
--- OUTSIDE RECORDS SUMMARY | 2025-08-07 15:03 | XMS_ITS | Encounter Summary ---
Author Organization [employer] [facility] Address [address] [place] [address] Care Team Providers Care Climatology Professor Name Role Phone Unavailable Primary Care Provider Unavailabl e Encounter Details Date Type Department Care Team (Late st Contact Info) Description 10/03/2024 Lab Requisition [facility] - Main Lab [address] [place] [address] Angelo Kasper MD [address] [place] [phone] Encounter for other general examination Social History [...] EST) WBC 4.2(L) 4.8 - 10.8 K/[facility] LAB HEMETOLOGY METHOD 10/03/2024 11:02 AM EST [facility] LAB RBC 4.00 3.80 - 4.80 M/[facility] LAB HEMETOLOGY METHOD 10/03/2024 11:02 AM [place] Res ult [facility] LAB [address] [place] [address], * (ABNORMAL) Basic metabolic panel (10/03/2024 6:25 [...] [facility] LAB Comment:Calculation based on the [...] MD LAB BLOOD ORDERABLES Final Res ult [facility] ([facility]) [facility] LAB [address] [place] [address], documented in this encounter Visit Diagnoses Diagnosis Encounter for other general examination documented in this encounter
--- OUTSIDE RECORDS SUMMARY | 2025-08-07 15:03 | XMS_ITS | Encounter Summary ---
Author Organization [employer] [facility] Address [address] [place] [address] Care Team Providers Care Practice Administrator Name Role Phone Unavailable Primary Care Provider Unavailabl e Encounter Details Date Type Department Care Team (Late st Contact Info) Description 10/07/[address] [facility] Lab 299 [facility] [place] [address] Angelo Kasper MD [address] [place] [address] Encounter for other general examination Social History [...] LAB CHEMISTRY METHOD 10/07/2024 2:59 PM EST [facility] LAB Potassium 4.2 3.5 - 5.5 mmol/L LAB CHEMISTRY METHOD 10/07/2024 2:59 PM EST [facility] LAB Chloride 98 96 - 110 mmol/L LAB CHEMISTRY METHOD 10/07/2024 2:59 PM EST [facility] LAB CO2 22 21 - 32 mmol/L LAB CHEMISTRY METHOD 10/07/2024 2:59 PM EST [facility] LAB Anion Gap 10 3 - 11 LAB CHEMISTRY METHOD 10/07/2024 2:59 PM EST [facility] LAB Glucose 63(L) 70 - 100 mg/dL LAB CHEMISTRY METHOD 10/07/2024 2:59 PM [facility] LAB BUN 9 5 - 25 mg/dL LAB CHEMISTRY METHOD 10/07/2024 2:59 PM [facility] LAB Creatinine 0.55 0.50 - 1.10 mg/dL LAB CHEMISTRY METHOD 10/07/2024 2:59 PM [facility] LAB eGFR 89 >=60 mL/min/1. 73m2 LAB CHEMISTRY METHOD 10/07/2024 2:59 PM [facility] LAB Comment:Calculation based on the Chronic Kidney Disease Epidemiology Collaboration (CKD-EPI) equation refit without adjustment for race. BUN/Creatinine Ratio 16.4 LAB CHEMISTRY METHOD 10/07/2024 2:59 PM [facility] LAB Calcium 8.3(L) 8.5 - 10.5 mg/dL LAB CHEMISTRY METHOD 10/07/2024 2:59 PM [facility] LAB Blood Venous blood specimen / Unknown 10/07/2024 7:28 AM EST 10/07/2024 12:05 PM EST us Angelo Kasper MD LAB BLOOD ORDERABLES Final Res ult [facility] LAB [address] [place] [address], documented in this encounter Visit Diagnoses Diagnosis Encounter for other general examination documented in this encounter
--- OUTSIDE RECORDS SUMMARY | 2025-08-07 15:03 | XMS_ITS | Encounter Summary ---
Author Organization [facility] Address [address] [place] [address] Care Team Providers Care Legal Billing Analyst Name Role Phone Unavailable Primary Care Provider Unavailabl e Encounter Details Date Type Department Care Team (Late st Contact Info) Description 10/06/2024 Lab Requisition [facility] - Main Lab 299 [facility] [place] [address] Angelo Kasper MD [address] [place] [address] Encounter for other general examination Social History [...] LAB CHEMISTRY METHOD 10/06/2024 9:33 AM EST [facility] ([facility] Blood Venous blood specimen / Unknown Venipuncture / Unknown 10/06/2024 5:48 AM EST 10/06/2024 6:48 AM EST Narrative [facility] - 10/06/2024 9:33 AM EST [facility] 8 AM SPEC: 5.0-23.0 mcg/dL 4 PM SPEC: 3.0-16.0 mcg/dL 8 PM SPEC: <5.0 mcg/dL Angelo Kasper MD LAB BLOOD ORDERABLES Final Res ult Performing Organization Address City/[facility]/ZIP Co de Phone Number [facility] LAB [address] [place] [address], [place] [phone] * Thyroid stimulating hormone (10/06/2024 5:48 AM EST) Pathologist [facility] TSH 2.14 0.40 - 4.00 mcIU/mL LAB CHEMISTRY METHOD 10/06/2024 8:28 AM EST [facility] Blood Venous blood specimen / Unknown Venipuncture / Unknown 10/06/2024 5:48 AM EST 10/06/2024 6:48 AM EST us Angelo Kasper MD LAB BLOOD ORDERABLES Final Res ult Performing Organization Address City/[facility]/ZIP Co de Phone Number [facility] [address] [place] [address], [place] [phone] * (ABNORMAL) Basic metabolic panel (10/06/2024 5:48 AM EST) Sodium 130(L) 133 - 145 mmol/L LAB CHEMISTRY METHOD 10/06/2024 7:23 AM EST [facility] Potassium 4.0 3.5 - 5.5 mmol/L LAB CHEMISTRY METHOD 10/06/2024 7:23 AM EST [facility] Chloride 98 96 - 110 mmol/L LAB CHEMISTRY METHOD 10/06/2024 7:23 AM EST [facility] CO2 26 21 - 32 mmol/L LAB CHEMISTRY METHOD 10/06/2024 7:23 AM EST [facility] Anion Gap 6 3 [...] Res ult [facility] [address] [place] [address], documented in this encounter Visit Diagnoses Diagnosis Encounter for other general examination documented in this encounter
--- OUTSIDE RECORDS SUMMARY | 2025-08-07 15:03 | XMS_ITS | Encounter Summary ---
Author Organization [facility] Address [address] [place] [address] Care Team Providers Care Plant Attendant Name Role Phone Unavailable Primary Care Provider Unavailabl e Encounter Details Date Type Department Care Team (Late st Contact Info) Description 10/04/2024 Lab Requisition [facility] - Main Lab [address] [place] [address] Angelo Kasper MD [address] [place] [phone] Encounter for other general examination Social History [...] [facility] [address] [place] [address], [place] [phone] documented in this encounter Visit Diagnoses Diagnosis Encounter for other general examination documented in this encounter
--- OUTSIDE RECORDS SUMMARY | 2025-08-07 15:03 | XMS_ITS | Encounter Summary ---
Author Organization [employer] [facility] Address [address] [place] [address] Care Team Providers Care Sales And Marketing Manager Name Role Phone Unavailable Primary Care Provider Unavailabl e Encounter Details Date Type Department Care Team (Late st Contact Info) Description 10/05/2024 Lab Requisition [facility] - Main Lab 299 [facility] [place] [address] Angelo Kasper MD [address] [place] [address] Encounter for other general examination Social History [...] Res ult [facility] LAB [address] [place] [address], documented in this encounter Visit Diagnoses Diagnosis Encounter for other general examination documented in this encounter
--- OUTSIDE RECORDS SUMMARY | 2025-08-07 15:03 | XMS_ITS | Encounter Summary ---
Author Organization [facility] [facility] Address [address] [place] [address] Care Team Providers Care Development Specialist Name Role Phone Unavailable Primary Care Provider Unavailabl e Encounter Details Date Type Department Care Team (Late st Contact Info) Description 10/11/2024 Lab Requisition [facility] Lab [address] [facility] [place] [address] Angelo Kasper MD [address] [place] [address] Encounter for other general examination Social History [...] LAB CHEMISTRY METHOD 10/11/2024 1:13 PM EST [facility] Potassium 4.0 3.5 - 5.5 mmol/L LAB CHEMISTRY METHOD 10/11/2024 1:13 PM EST [facility] LAB Chloride 102 96 - 110 mmol/L LAB CHEMISTRY METHOD 10/11/2024 1:13 PM EST [facility] LAB CO2 23 21 - 32 mmol/L LAB CHEMISTRY METHOD 10/11/2024 1:13 PM EST [facility] LAB Anion Gap 9 3 [...] Res ult [facility] LAB [address] [place] [address], documented in this encounter Visit Diagnoses Diagnosis Encounter for other general examination documented in this encounter
--- OUTSIDE RECORDS SUMMARY | 2025-08-07 15:03 | XMS_ITS | Clinical Summary ---
Author Organization [address] [facility] Address [address] [place] [address] Phone Care Team Providers Care Contracts Officer Name Role Phone Unavailable Primary Care [...]
--- OUTSIDE RECORDS SUMMARY | 2025-08-07 15:03 | XMS_ITS | Encounter Summary ---
Author Organization [facility] Address [address] [place] [address] Care Team Providers Care Anatomical Embalmer Name Role Phone Unavailable Primary Care Provider Unavailabl e Encounter Details Date Type Department Care Team (Late st Contact Info) Description 09/30/2024 Lab Requisition [facility] - Main Lab [address] [place] [address] Angelo Kasper MD [address] [place] [address] [phone] Encounter for other general examination Social History [...] % LAB HEMETOLOGY METHOD 09/30/2024 1:38 PM [facility] LAB MCV 95.1 79.0 - 98.0 FL LAB HEMETOLOGY METHOD 09/30/2024 1:38 PM [facility] MCH 30.4 27.0 - 32.0 pcg LAB HEMETOLOGY METHOD 09/30/2024 1:38 PM EST [facility] LAB MCHC 32.0 32.0 - 37.0 g/dL LAB HEMETOLOGY METHOD 09/30/2024 1:38 PM [facility] LAB RDW 14.1 11.0 - 15.0 % LAB HEMETOLOGY METHOD 09/30/2024 1:38 PM [facility] LAB Platelets 279 130 - 400 K/mcL LAB HEMETOLOGY METHOD 09/30/2024 1:38 PM EST [facility] LAB MPV 9.4 7.0 - 11.0 FL LAB HEMETOLOGY METHOD 09/30/2024 1:38 PM [facility] NRBC 0.0 <1.0 % LAB HEMETOLOGY METHOD 09/30/2024 1:38 PM [facility] NRBC Absolute 0.00 <0.10 K/mcL LAB HEMETOLOGY METHOD 09/30/2024 1:38 PM [facility] Blood Venous blood specimen / Unknown Venipuncture / Unknown 09/30/2024 7:07 AM EST 09/30/2024 1:00 PM EST us Angelo Kasper MD LAB BLOOD ORDERABLES Final Res ult [facility] [address] [place] [address], * (ABNORMAL) Basic metabolic panel (09/30/2024 7:07 AM EST) Sodium 135 133 - 145 mmol/L LAB CHEMISTRY METHOD 09/30/2024 4:17 PM [facility] Potassium 4.6 3.5 - 5.5 mmol/L LAB CHEMISTRY METHOD 09/30/2024 4:17 PM [facility] Chloride 103 96 - 110 mmol/L LAB CHEMISTRY METHOD 09/30/2024 4:17 PM [facility] CO2 25 21 - 32 mmol/L LAB CHEMISTRY METHOD 09/30/2024 4:17 PM [facility] Anion Gap 7 3 - 11 LAB CHEMISTRY METHOD 09/30/2024 4:17 PM [facility] Glucose 60(L) 70 - 100 mg/dL LAB CHEMISTRY METHOD 09/30/2024 4:17 PM [facility] BUN 20 5 - 25 mg/dL LAB CHEMISTRY METHOD 09/30/2024 4:17 PM [facility] Creatinine 0.82 0.50 - 1.10 mg/dL LAB CHEMISTRY METHOD 09/30/2024 4:17 PM [facility] LAB eGFR 70 >=60 mL/min/1. 73m2 LAB CHEMISTRY METHOD 09/30/2024 4:17 PM [facility] Comment:Calculation based on the Chronic Kidney Disease Epidemiology Collaboration (CKD-EPI) equation refit without adjustment for race. BUN/Creatinine Ratio 24.4 LAB CHEMISTRY METHOD 09/30/2024 4:17 PM [facility] Calcium 9.8 8.5 - 10.5 mg/dL LAB CHEMISTRY METHOD 09/30/2024 4:17 PM [facility] Blood Venous blood specimen / Unknown Venipuncture / Unknown 09/30/2024 7:07 AM EST 09/30/2024 1:00 PM EST Angelo Kasper MD LAB BLOOD ORDERABLES Final Res ult [facility] [address] [place] [address], documented in this encounter Visit Diagnoses Diagnosis Encounter for other general examination documented in this encounter
--- OUTSIDE RECORDS SUMMARY | 2025-08-07 15:03 | XMS_ITS | Encounter Summary ---
Author Organization [facility] Address [address] [place] [address] Care Team Providers Care Groundskeeping Maintenance Name Role Phone Unavailable Primary Care Provider Unavailabl e Encounter Details Date Type Department Care Team (Late st Contact Info) Description 10/09/2024 Lab Requisition [facility] Lab [address] [facility] [place] [address] Angelo Kasper MD [address] [place] [id number] Encounter for other general examination Social History [...] LAB CHEMISTRY METHOD 10/09/2024 12:04 PM EST [facility] LAB Potassium 4.1 3.5 - 5.5 mmol/L LAB CHEMISTRY METHOD 10/09/2024 12:04 PM EST [facility] LAB Chloride 100 96 - 110 mmol/L LAB CHEMISTRY METHOD 10/09/2024 12:04 PM EST [facility] LAB CO2 26 21 - 32 mmol/L LAB CHEMISTRY METHOD 10/09/2024 12:04 PM EST [facility] LAB Anion [...] Res ult [facility] [address] [place] [address], documented in this encounter Visit Diagnoses Diagnosis Encounter for other general examination documented in this encounter
== END 2025-08-07 14:03 | disposition home or self-care (01) ==
LOC: HO.PMC 13:33
PROVIDERS: PCP Internal Medicine; Visit Provider Anesthesiology
DX: T85.192A Other mechanical complication of implanted electronic neurostimulator of spinal cord electrode (lead), initial encounter (principal); M06.9 Rheumatoid arthritis, unspecified; M47.816 Spondylosis without myelopathy or radiculopathy, lumbar region; M46.1 Sacroiliitis, not elsewhere classified; M53.3 Sacrococcygeal disorders, not elsewhere classified; G89.4 Chronic pain syndrome; S32.010A Wedge compression fracture of first lumbar vertebra, initial encounter for closed fracture
CPT/HCPCS: 99213

== ENCOUNTER → 2025-08-07 13:32 | Outpatient (BNVA) | payer MEDICARE, OTHER, SELFPAY | PROVIDERS: PCP Internal Medicine; Visit Provider Anesthesiology | DX: T85.192A Other mechanical complication of implanted electronic neurostimulator of spinal cord electrode (lead), initial encounter (principal); S32.010A Wedge compression fracture of first lumbar vertebra, initial encounter for closed fracture; M06.9 Rheumatoid arthritis, unspecified; M47.816 Spondylosis without myelopathy or radiculopathy, lumbar region; M46.1 Sacroiliitis, not elsewhere classified; M53.3 Sacrococcygeal disorders, not elsewhere classified; G89.4 Chronic pain syndrome | CPT/HCPCS: 99212 ==

== ENCOUNTER 2025-08-25 14:45 | Outpatient (REF) | payer MEDICARE, OTHER, SELFPAY ==
[2025-08-25 15:04] LABS: MANUAL DIFF FLAG NO
[2025-08-25 15:50] LABS: Hematocrit 36.3 % (37.0-47.0); Hemoglobin 11.5 g/dl (12.0-16.0); Imm Gran Abs Auto 0.04 X10*3/uL (0.00-0.03); Imm Gran Pct Auto 0.5 % (0.0-0.4); Lymphocytes Absolute Auto 2.2 X10*3/uL (1.2-4.9); Mean Corpuscular HGB Conc 31.7 g/dl (31.0-35.0); Mean Corpuscular Hemoglobin 28.6 pg (27.0-33.0); Mean Corpuscular Volume 90.3 fL (80.0-98.0); NRBC Abs Auto 0.000 X10*3/uL (0.0-0.012); NRBC Pct Auto 0.0 /100WBC (0.0-0.2); Platelet Count 242 X10*3/uL (160-400); Red Blood Count 4.02 X10*6/uL (4.20-5.50); White Blood Count 8.1 X10*3/uL (4.8-10.8)
[2025-08-25 16:49] LABS: Alanine Aminotransferase 16 U/L (0-31); Albumin Level 3.8 g/dL (3.5-5.0); Alkaline Phosphatase 102 U/L (39-117); Anion Gap 11 (12-20); Aspartate Amino Transferase 30 U/L (5-31); Blood Urea Nitrogen 12 mg/dL (9-16); Calcium 9.5 mg/dL (8.4-10.2); Carbon Dioxide 25 mmol/L (22-29); Chloride 106 mmol/L (96-108); Estimated Glomerular Filt Rate > 60; Potassium 3.8 mmol/L (3.3-5.1); Sodium 138 mmol/L (135-145); Total Protein 7.1 g/dL (6.5-8.0); Uric Acid 3.8 mg/dL (2.4-5.7)
--- OUTSIDE RECORDS SUMMARY | 2025-08-25 18:43 | XMS_ITS | Clinical Summary ---
Author Organization [facility] Address [address] [place] [address] Care Team Providers Care Biological Inspector Name Role Phone Unavailable Primary Care [...] - 1-dose 75+ series) 2013 COVID-19 Vaccine (2024-2 6 season) 2025 Influenza (#1) 2025 HPV Vaccine [...]
== END 2025-08-25 14:46 | disposition home or self-care (01) ==
LOC: HO.LAB 14:45
PROVIDERS: Absent Provider Student in an Organized Health Care Education/Training Program; PCP Internal Medicine; Visit Provider Internal Medicine
DX: M81.0 Age-related osteoporosis without current pathological fracture (principal); M1A.0710 Idiopathic chronic gout, right ankle and foot, without tophus (tophi); Z79.899 Other long term (current) drug therapy
CPT/HCPCS: 36415; 80053; 82306; 84550; 85025; 85652; 86140

== ENCOUNTER 2025-09-22 11:20 | Emergency (ER) | payer MEDICARE, OTHER, SELFPAY ==
--- NOTE | ~2025-09-22 | XR_ITS ---
EXAMINATION: XR ELBOW, LEFT CLINICAL INFORMATION: pain, possible gout vs arthritis COMPARISON: None available. TECHNIQUE: AP, lateral, and oblique views of the left elbow. FINDINGS: No acute cortical disruption or malalignment. No lytic or blastic lesions. No gross joint effusion. No metallic or radiopaque foreign body. No subcutaneous emphysema. XR/XR elbow LT 2V IMPRESSION: No acute fracture or dislocation. Negative x-ray. Electronically signed by: Reggie Hall MD 09/22/2025 01:38 PM [facility]REA
--- NOTE | ~2025-09-22 | XR_ITS ---
EXAMINATION: XR WRIST, LEFT CLINICAL INFORMATION: pain, possible gout COMPARISON: None available. TECHNIQUE: PA, lateral, and oblique views of the left wrist. FINDINGS: Degenerative changes in the first carpometacarpal joint. Osteopenia versus osteoporosis. No acute cortical disruption or gross malalignment. No lytic or blastic lesions. Mild soft tissue calcifications, carpal ulnar joint. XR/XR wrist LT 2V IMPRESSION: Degenerative changes without acute fracture or dislocation. Electronically signed by: Reggie Hall MD 09/22/2025 01:39 PM EST [facility]
[2025-09-22 11:26] VITALS: BP 186/75; PULSE 90; RESP 18; TEMP 36.4; O2SAT 99
[2025-09-22 11:29] VITALS: BP 148/74; BP 150/78; PULSE 88; PULSE 98; RESP 16; TEMP 36.8; O2SAT 96; O2SAT 97; BMI 24.1
--- NOTE | 2025-09-22 11:35 | ED.EXTPRO ---
HPI - Extremity Problem General Chief complaint: Extremity Injury, Upper Stated complaint: lt hand swelling 08/15 pain per ems Time Seen by Provider: 09/22/25 11:35 Source: patient, EMS, RN notes reviewed and old records reviewed Mode of arrival: EMS Limitations: no limitations History of Present Illness ED Provider: BERE Osullivan HPI Narrative: 85-year-old female with medical history of TIA with left-sided residual weakness, osteoarthritis, rheumatoid arthritis, polymyalgia rheumatica, anxiety, depression, gout, GERD, seizures, HTN, HDL, asthma, peripheral neuropathy, presents to the ED due to 3 days of left wrist pain with redness, warmth and swelling. Patient woke up yesterday and noticed pain in the L elbow. Patient states she was on prolia injections to help manage RA however has not been getting her injections as she has changed doctors. Denies recent injury/trauma/fall or increased physical activity. Denies fever, nausea, vomiting, diarrhea, abdominal pain, urinary symptoms, chills Related Data Home Medications ?Medication ?Instructions ?Recorded ?Confirmed vitamin B complex (B 1 tab PO DAILY 09/04/20 08/06/25 Complex-Vitamin B12 tablet) bisacodyl 5 mg tablet,delayed 5 mg PO DAILY PRN Constipation 09/27/24 08/06/25 release amlodipine 5 mg tablet 5 mg PO DAILY 11/07/24 08/06/25 olopatadine 0.1 % eye drops 1 drp ophthalmic (eye) BID PRN 06/18/25 08/06/25 Previous Rx's ?Medication ?Instructions ?Recorded CMF Bone Stimulator #1 ea 10/09/20 lactulose 20 gram/30 mL oral 20 g (30 mL) PO QID PRN 11/30/23 solution constipation #1 mL acetaminophen 500 mg tablet 500 mg PO Q6H PRN fever or pain 09/09/24 (Tylenol Extra Strength) #14 tabs clopidogrel 75 mg tablet (Plavix) 75 mg PO DAILY #90 tabs 10/25/24 tramadol 50 mg tablet 50 mg PO Q6-8H PRN pain #120 tabs 01/01/25 methocarbamol 750 mg tablet 750 mg PO QID PRN pain #20 tabs 01/29/25 ropinirole 3 mg tablet 3 mg PO DAILY@1800 #90 tabs 04/08/25 cholecalciferol (vitamin D3) 125 125 mcg PO DAILY #90 caps 03/11/25 mcg (5,000 unit) capsule folic acid 1 mg tablet 1 mg PO DAILY #90 tabs 04/03/25 metoprolol succinate 25 mg 25 mg PO DAILY #90 tabs 04/03/25 tablet,extended release 24 hr montelukast 10 mg tablet 10 mg PO BEDTIME #90 tabs 04/03/25 allopurinol 100 mg tablet 100 mg PO DAILY #30 tabs 04/23/25 atorvastatin 40 mg tablet 40 mg PO DAILY #30 tabs 06/26/25 multivitamin 1 tab PO DAILY #90 tabs 08/06/25 pantoprazole 40 mg tablet,delayed 40 mg PO DAILY #30 tabs 08/06/25 release meclizine 25 mg tablet 25 mg PO DAILY PRN Nausea #15 tabs 08/22/25 methotrexate sodium 2.5 mg tablet 15 mg (6 x 2.5 mg) PO QWEEK #24 09/18/25 tabs cephalexin 500 mg capsule 500 mg PO QID 7 days #28 caps 09/22/25 prednisone 20 mg tablet 20 mg PO BID 5 days #10 tabs 09/22/25 Allergies Allergy/AdvReac Type Severity Reaction Status Date / Time alendronate sodium (From Allergy Severe ANAPHYLAXIS Verified 09/22/25 11:34 FOSAMAX) lisinopril (LISINOPRIL) Allergy Severe ANAPHYLAXIS, Verified 09/22/25 11:34 cough clarithromycin Allergy Intermediate CONFUSION, Verified 09/22/25 11:34 (CLARITHROMYCIN) sores on tongue, dry mouth simvastatin (SIMVASTATIN) Allergy Mild DRY Verified 09/22/25 11:34 THROAT, achy, confusion Review of Systems Review of Systems: Yes all other systems are reviewed and are negative [facility] Past Medical History Attestation statement: The following information was validated with the patient. Source: old records reviewed and nursing notes reviewed Medical History Vomiting High cholesterol Pre-op chest exam Meniere disease Transient ischemic attack (TIA) Osteoarthritis of shoulders, bilateral Osteoarthritis of carpometacarpal (CMC) joint of right thumb Overweight (BMI 25.0-29.9) Thrush, oral Nondisplaced fracture of fifth metatarsal bone, left foot, subsequent encounter for fracture with nonunion Seropositive rheumatoid arthritis Fracture of 5th metatarsal Fracture of fifth metatarsal bone of right foot Polymyalgia rheumatica Anxiety and depression Lumbar degenerative disc disease Osteoporosis Gout Restless leg syndrome Hypergammaglobulinemia GERD (gastroesophageal reflux disease) Seizure disorder Hypertension Hypercholesterolemia Asthma Peripheral neuropathy Rheumatoid arthritis Surgical History History of surgery (02/07/25) History of bilateral knee replacement Corneal transplant status History of arthroplasty of right hip History of total abdominal hysterectomy History of corneal transplant H/O left knee surgery History of open reduction and internal fixation (ORIF) procedure History of cholecystectomy History of appendectomy Family History Family History Father CVD (cardiovascular disease) Mother No problems noted. Social History Social History Household Members: Significant Other Household Members Other:: parter Housing: House Are you a primary healthcare analyst to a significant other at home: No Do you presently have visiting nurse or other home services: No Alcohol intake: current Alcohol intake frequency: holidays/special occasions only Alcohol type: wine Comment: counts correct Patient Tobacco Use Status: Never used Tobacco Tobacco use type: Cigarette Smoked in Last 30 Days: No e-Cigarette/Vaping Use: Never Used Second Hand Smoke Exposure: No Use of substances other than those prescribed or required for medical reasons: No Advance Directives: Yes Advance Directives on File: Yes Advance Directives Date on File: 07/11/23 Do you have a plan to hurt others: No Plan service: No Current occupational status: retired Cognitive needs: Yes (walker) Hearing needs: Yes Vision needs: Yes Physical Exam Vital Signs: Vital Signs: Last Vital Signs Temp 98.2 F 09/22/25 11:29 Pulse 98 09/22/25 14:17 Resp 18 09/22/25 14:17 BP 183/74 H 09/22/25 14:17 Pulse Ox 96 09/22/25 14:17 O2 Del Method Room Air 09/22/25 14:17 BMI result Body Mass Index 24.1 GENERAL APPEARANCE: ?AxOx4, generally well-appearing, no acute distress. HEENT: ?NC, AT. MMM. EOMI, clear conjunctiva, oropharynx clear. NECK: ?Supple without lymphadenopathy.? No stiffness or restricted ROM. HEART:? Normal rate and regular rhythm, normal S1/S2, no m/r/g LUNGS:? CTAB, moving air well. No crackles or wheezes are heard. ABDOMEN: ?Soft, nontender, nondistended with good bowel sounds heard. BACK: No CVAT, no obvious deformity. EXTREMITIES: ?Without cyanosis, clubbing or edema. LUE TTP of dorsal hand and wrist with warmth, edema, and erythema, radial pulses 2+, appropriate capillary refill time, the limb is well-perfused and vascularly intact, ROM is intact however patient does have pain when making a fist. TTP of left elbow, with mild erythema no warmth or edema noted, ROM intact, SILT NEUROLOGICAL: ?Grossly nonfocal. Alert and oriented, moving all 4 extremities. Observed to ambulate with normal gait. Skin: ?Warm and dry without any rash. Medical Decision Making Medical Decision Making MDM Narrative: 85-year-old female with medical history of TIA with left-sided residual weakness, osteoarthritis, rheumatoid arthritis, polymyalgia rheumatica, anxiety, depression, gout, GERD, seizures, HTN, HDL, asthma, peripheral neuropathy, presents to the ED due to 3 days of left wrist pain with redness, warmth and swelling. Patient woke up yesterday and noticed pain in the L elbow, mild erythema without swelling or warmth. VS on initial observation-BP 186/75, pulse rate of 90, respiratory rate of 18, afebrile with oral temp of 97.5?, O2 saturation 99% on room air. On physical exam LUE TTP of dorsal hand and wrist with warmth, edema, and erythema, radial pulses 2+, appropriate capillary refill time, the limb is well-perfused and vascularly intact, ROM is intact however patient does have pain when making a fist. TTP of left elbow, with mild erythema no warmth or edema noted, ROM intact, SILT Labs without leukocytosis/leukopenia, normocytic stable anemia with a hemoglobin of 11.8, hematocrit of 36.3, ESR elevated at 45, CRP elevated at 4.47 XR L hand negative for fracture, dislocation, joint effusion XR L elbow negative for fracture, dislocation, joint effusion Patient without leukocytosis, afebrile, able to range the hand and elbow-less likely septic arthritis. Symptoms most significant for gout vs cellulitis. Patient will be discharged home with 5 day course of 40mg prednisone and 5 day course of keflex qid for coverage. Sebastian bandage was applied to the left elbow for suspected bursitis. I counseled patient to follow up with her primary care doctor to ensure resolution of her symptoms. I counseled patient on strict return precautions. Patient feels well enough to go home for self-care, and is in agreement with the plan. Differential Diagnosis Differential Diagnoses: The differential diagnosis associated with the presentation includes Cellulitis Gout Hand fracture Elbow fracture Admission/Observation Consideration of admission/observation: Escalation of care including admission/observation considered Lab Data MDM Lab Attestation statement: I reviewed the patient's lab results. 09/22/25 11:45 09/22/25 11:45 Labs: Lab Results 09/22/25 Range/Units 11:45 WBC 10.0 (4.8-10.8) X10*3/uL RBC 4.05 L (4.20-5.50) X10*6/uL Hgb 11.8 L (12.0-16.0) g/dl Hct 36.3 L (37.0-47.0) % MCV 89.6 (80.0-98.0) fL MCH 29.1 (27.0-33.0) pg MCHC 32.5 (31.0-35.0) g/dl RDW 13.9 (11.0-16.0) % Plt Count 265 (160-400) X10*3/uL MPV 9.5 (9.4-12.3) fL Immature Gran % (Auto) 0.3 (0.0-0.4) % Neut % (Auto) 72.3 (45-73) % Lymph % (Auto) 17.1 L (20-40) % Laurens % (Auto) 7.7 (2-11) % Eos % (Auto) 2.2 (0-4) % Baso % (Auto) 0.4 (0-2) % Lymph # (Auto) 1.7 (1.2-4.9) X10*3/uL Laurens # (Auto) 0.8 (0.1-1.2) X10*3/uL Eos # (Auto) 0.2 (0.0-0.4) X10*3/uL Baso # (Auto) 0.0 (0.0-0.2) X10*3/uL Abs Immat Gran (auto) 0.03 (0.00-0.03) X10*3/uL Absolute Neuts (auto) 7.2 (2.0-8.3) x10*3/uL Absolute Nucleated RBC 0.000 (0.0-0.012) X10*3/uL Nucleated RBC % (auto) 0.0 (0.0-0.2) /100WBC ESR 45 H (0-20) MM/HR PT 11.7 (11.2-13.5) SEC INR 1.0 (0.9-1.1) Sodium 136 (135-145) mmol/L Potassium 3.6 (3.3-5.1) mmol/L Chloride 107 (96-108) mmol/L Carbon Dioxide 21 L (22-29) mmol/L Anion Gap 12 (12-20) BUN 18 H (9-16) mg/dL Creatinine 0.64 (0.5-1.4) mg/dL Estim Creat Clear Calc 58.0 Estimated GFR > 60 Random Glucose 105 (60-115) mg/dL Uric Acid 3.4 (2.4-5.7) mg/dL Calcium 9.4 (8.4-10.2) mg/dL Total Bilirubin 0.4 (0.0-1.0) mg/dL AST 26 (5-31) U/L ALT 8 (0-31) U/L Alkaline Phosphatase 114 (39-117) U/L C-Reactive Protein 4.47 H (< or = 0.50) mg/dL Total Protein 7.4 (6.5-8.0) g/dL Albumin 3.8 (3.5-5.0) g/dL Independent Interpretation I performed an independent interpretation of an: Plain X-Ray Interpretation: I personally interpreted the XR L wrist which was negative for fracture, dislocation, joint effusion, I agree with the radiologist's interpretation I personally interpreted the XR L elbow which was negative for fracture, dislocation, joint effusion, I agree with the radiologist's interpretation Radiology Impression Discussion of test interpretation with radiology: I have reviewed the radiologist's reading. Radiologist Impression: XR L wrist FINDINGS: Degenerative changes in the first carpometacarpal joint. Osteopenia versus osteoporosis. No acute cortical disruption or gross malalignment. No lytic or blastic lesions. Mild soft tissue calcifications, carpal ulnar joint. XR/XR wrist LT 2V IMPRESSION: Degenerative changes without acute fracture or dislocation. Electronically signed by: Reggie Hall MD 09/22/2025 01:39 PM EST RP Dictated By: Reggie Kate MD Signed By: <Electronically signed by Reggie Somers MD in OV> 09/22/25 1339 XR L elbow FINDINGS: No acute cortical disruption or malalignment. No lytic or blastic lesions. No gross joint effusion. No metallic or radiopaque foreign body. No subcutaneous emphysema. XR/XR elbow LT 2V IMPRESSION: No acute fracture or dislocation. Negative x-ray. Electronically signed by: Reggie Hall MD 09/22/2025 01:38 PM EST RP Dictated By: Reggie Kate MD Signed By: <Electronically signed by Reggie Somers MD in OV> 09/22/25 1338 External Record Review External record reviewed: Inpatient record, Office record and Outpatient record Chronic Conditions Patient?s care impacted by: Hypertension and Other (TIA with left-sided residual weakness, osteoarthritis, rheumatoid arthritis, polymyalgia rheumatica, anxiety, depression, gout, GERD, seizures, asthma) Discharge Plan Discharge Clinical Impression: Gout, Cellulitis, Bursitis Patient Disposition: Home, Self-Care Additional Instructions: You were evaluated in the ED today due to pain of the left wrist and elbow. Your blood work was reassuring as there was no significant elevation/decrease in your white blood cell count indicative of systemic infection. Your x-rays were negative for fracture, dislocation or joint effusion. Your symptoms are most consistent with a cellulitis versus gout. Your left elbow pain is most consistent with a bursitis which is an inflammation of the small sac like structure around the joint. You are being prescribed a 5 day course of 20mg prednisone you will take 2 times a day, and a 5 day course of Keflex which is an antibiotic for bacterial coverage that you will take 4 times per day. For the elbow pain, keep an Sebastian wrap with gentle compression applied to the area, you can use ice on the affected area. Additionally, you can take 500 mg of Tylenol every 6 hours for pain management. I encourage you to follow up with your primary care doctor to ensure resolution of your symptoms. Please return to the emergency department if you experience fevers over 100.4?, worsening pain of your left hand, worsening pain of your left elbow, Prescriptions: New prednisone 20 mg tablet 20 mg PO BID 5 Days Qty: 10 0RF cephalexin 500 mg capsule 500 mg PO QID 7 Days Qty: 28 0RF No Action clopidogrel [Plavix] 75 mg tablet 75 mg PO DAILY Qty: 90 5RF tramadol 50 mg tablet 50 mg PO Q6-8H PRN (Reason: pain) Qty: 120 0RF ropinirole 3 mg tablet 3 mg PO DAILY@1800 Qty: 90 8RF cholecalciferol (vitamin D3) 125 mcg (5,000 unit) capsule 125 mcg PO DAILY Qty: 90 1RF montelukast 10 mg tablet 10 mg PO BEDTIME Qty: 90 8RF metoprolol succinate 25 mg tablet extended release 24 hr 25 mg PO DAILY Qty: 90 8RF folic acid 1 mg tablet 1 mg PO DAILY Qty: 90 8RF allopurinol 100 mg tablet 100 mg PO DAILY Qty: 30 5RF atorvastatin 40 mg tablet 40 mg PO DAILY Qty: 30 3RF meclizine 25 mg tablet 25 mg PO DAILY PRN (Reason: Nausea) Qty: 15 0RF methotrexate sodium 2.5 mg tablet 15 mg PO QWEEK Qty: 24 0RF lactulose 20 gram/30 mL Solution 20 g PO QID PRN (Reason: constipation) Qty: 1 0RF bisacodyl 5 mg tablet,delayed release (DR/EC) 5 mg PO DAILY PRN (Reason: Constipation) acetaminophen [Tylenol Extra Strength] 500 mg tablet 500 mg PO Q6H PRN (Reason: fever or pain) Qty: 14 0RF vitamin B complex [B Complex-Vitamin B12] Tablet 1 tab PO DAILY (DME) CMF Bone Stimulator See Rx Instructions .Route .MEDSUPPLY Qty: 1 0RF Rx Instructions: As directed methocarbamol 750 mg tablet 750 mg PO QID PRN (Reason: pain) Qty: 20 0RF olopatadine 0.1 % drops 1 drp ophthalmic (eye) BID PRN Rx Instructions: separate doses by at least 6-8 hours amlodipine 5 mg tablet 5 mg PO DAILY pantoprazole 40 mg tablet,delayed release (DR/EC) 40 mg PO DAILY Qty: 30 11RF multivitamin Tablet 1 tab PO DAILY Qty: 90 3RF Print Language: Jordanian
[2025-09-22 11:51] LABS: MANUAL DIFF FLAG NO
[2025-09-22 11:59] LABS: INTERNATIONAL NORM RATIO 1.0 (0.9-1.1); Prothrombin Time 11.7 SEC (11.2-13.5)
[2025-09-22 12:00] LABS: Hematocrit 36.3 % (37.0-47.0); Hemoglobin 11.8 g/dl (12.0-16.0); Imm Gran Abs Auto 0.03 X10*3/uL (0.00-0.03); Imm Gran Pct Auto 0.3 % (0.0-0.4); Lymphocytes Absolute Auto 1.7 X10*3/uL (1.2-4.9); Mean Corpuscular HGB Conc 32.5 g/dl (31.0-35.0); Mean Corpuscular Hemoglobin 29.1 pg (27.0-33.0); Mean Corpuscular Volume 89.6 fL (80.0-98.0); NRBC Abs Auto 0.000 X10*3/uL (0.0-0.012); NRBC Pct Auto 0.0 /100WBC (0.0-0.2); Platelet Count 265 X10*3/uL (160-400); Red Blood Count 4.05 X10*6/uL (4.20-5.50); White Blood Count 10.0 X10*3/uL (4.8-10.8)
[2025-09-22 12:08] LABS: Alanine Aminotransferase 8 U/L (0-31); Albumin Level 3.8 g/dL (3.5-5.0); Alkaline Phosphatase 114 U/L (39-117); Anion Gap 12 (12-20); Aspartate Amino Transferase 26 U/L (5-31); Blood Urea Nitrogen 18 mg/dL (9-16); Calcium 9.4 mg/dL (8.4-10.2); Carbon Dioxide 21 mmol/L (22-29); Chloride 107 mmol/L (96-108); Creatinine Clr Calc Pharmacy 58.0; Estimated Glomerular Filt Rate > 60; Potassium 3.6 mmol/L (3.3-5.1); Sodium 136 mmol/L (135-145); Total Protein 7.4 g/dL (6.5-8.0); Uric Acid 3.4 mg/dL (2.4-5.7)
[2025-09-22 12:41] LABS: Erythrocyte Sedimentation Rate 45 MM/HR (0-20)
[2025-09-22 14:17] VITALS: BP 183/74; PULSE 98; RESP 18; O2SAT 96
[2025-09-22 15:12] VITALS: BP 183/74; PULSE 98; RESP 18; TEMP 36.8; O2SAT 96
== END 2025-09-22 15:12 | disposition home or self-care (01) ==
PROVIDERS: Emergency Provider Emergency Medicine; PCP Internal Medicine
DX: M10.042 Idiopathic gout, left hand (principal); R60.0 Localized edema; M79.642 Pain in left hand; Z79.899 Other long term (current) drug therapy; Z86.73 Personal history of transient ischemic attack (TIA), and cerebral infarction without residual deficits
CPT/HCPCS: 36415; 73070; 73100; 80053; 84550; 85025; 85610; 85652; 86140; 99284

== ENCOUNTER → 2025-09-22 12:38 | Outpatient (BNV) | payer MEDICARE, OTHER, SELFPAY | PROVIDERS: Emergency Provider Emergency Medicine; PCP Internal Medicine; Visit Provider Radiology Diagnostic Radiology | DX: M19.032 Primary osteoarthritis, left wrist (principal); M25.522 Pain in left elbow | CPT/HCPCS: 73070; 73100 ==

== ENCOUNTER 2025-10-08 10:52 | Outpatient (AMB) | payer MEDICARE, OTHER, SELFPAY ==
[2025-10-08 11:08] VITALS: BP 130/62; PULSE 74; O2SAT 96; BMI 22.4
--- NOTE | 2025-10-08 11:08 | MHC.PC.OV ---
Vital Signs 10/08/25 11:08 Height 5 ft 6 in Weight 139 lb BMI 22.4 BP 130/62 Blood Pressure Location Lt brachial Position Sitting Pulse 74 Pulse Source Pulse Oximeter Pulse Oximetry (%) 96 Oxygen Delivery Method Room Air Intake Visit Reasons: Severe inflammation Allergies alendronate sodium (From FOSAMAX) Allergy (Severe, Verified 10/08/25 11:09) ANAPHYLAXIS lisinopril (LISINOPRIL) Allergy (Severe, Verified 10/08/25 11:09) ANAPHYLAXIS, cough clarithromycin (CLARITHROMYCIN) Allergy (Intermediate, Verified 10/08/25 11:09) CONFUSION, sores on tongue, dry mouth simvastatin (SIMVASTATIN) Allergy (Mild, Verified 10/08/25 11:09) DRY THROAT, achy, confusion Tobacco use date assessed: 08/06/25 Fall risk assessment: No Falls in past year Last assessed Fall Risk: 10/08/25 Dental Screening Dental Screen Date: 07/02/25 HPI HPI Comments History of Present Illness Details History of Present Illness The patient is an 85 year old individual presenting for a follow-up visit and management of chronic conditions, last seen in August 2025. The patient's past medical history is significant for hypertension, hypercholesterolemia, seizure disorder, asthma, GERD, osteoporosis, rheumatoid arthritis, polymyalgia rheumatica, a history of TIA, generalized anxiety disorder, and a lumbar compression fracture with spinal cord stimulator dysfunction. The patient visited the emergency room on September 22 after waking up with left wrist and elbow pain and swelling. The patient was treated for presumed cellulitis with cephalexin and prednisone, which provided temporary relief. X-rays of the left wrist at that time revealed degenerative changes and osteopenia. Currently, the patient reports swelling in both wrists, hands, and the back of the neck. The patient's right wrist is sore but not swollen. Recent blood work showed a mild, chronic anemia, mildly elevated blood sugar of 105, and normal electrolytes and liver function. The patient also reports a new issue of an intermittent, golf ball-sized lump in the right groin that comes and goes. The lump was not present at the time of the visit. For health maintenance, the patient's last bone density scan was in May 2024, a mammogram was in January 2022, and a colonoscopy in November 2010 revealed a tubular adenoma. The patient receives Prolia injections for osteoporosis, is prescribed methotrexate for rheumatoid arthritis, and takes a blood thinner (Plavix). Health Maintenance - Last bone density scan was in May 2024. - Last colonoscopy was in November 2010, which showed a tubular adenoma. - Last mammogram was in January 2022. Social History - The patient notes that travel to [place] for medical appointments is inconvenient and expresses a desire to avoid it. Results - Left Wrist X-ray: Findings show degenerative changes, osteopenia, and erosive degenerative arthritis. - Left Elbow X-ray: No significant findings noted. - Recent Labs: Labs from the ER visit revealed mild anemia, a blood sugar of 105, normal electrolytes, and normal liver function. [facility] Medical History Vomiting High cholesterol Pre-op chest exam Meniere disease Transient ischemic attack (TIA) Osteoarthritis of shoulders, bilateral Osteoarthritis of carpometacarpal (CMC) joint of right thumb Overweight (BMI 25.0-29.9) Thrush, oral Nondisplaced fracture of fifth metatarsal bone, left foot, subsequent encounter for fracture with nonunion Seropositive rheumatoid arthritis Fracture of 5th metatarsal Fracture of fifth metatarsal bone of right foot Polymyalgia rheumatica Anxiety and depression Lumbar degenerative disc disease Osteoporosis Gout Restless leg syndrome Hypergammaglobulinemia GERD (gastroesophageal reflux disease) Seizure disorder Hypertension Hypercholesterolemia Asthma Peripheral neuropathy Rheumatoid arthritis Surgical History History of surgery (02/07/25) History of bilateral knee replacement Corneal transplant status History of arthroplasty of right hip History of total abdominal hysterectomy History of corneal transplant H/O left knee surgery History of open reduction and internal fixation (ORIF) procedure History of cholecystectomy History of appendectomy Family History Father CVD (cardiovascular disease) Mother No problems noted. Social History Household Members: Significant Other Household Members Other:: parter Housing: House Are you a primary laboratory animal caretaker to a significant other at home: No Do you presently have visiting nurse or other home services: No Alcohol intake: current Alcohol intake frequency: holidays/special occasions only Alcohol type: wine Comment: counts correct Patient Tobacco Use Status: Never used Tobacco Tobacco use type: Cigarette e-Cigarette/Vaping Use: Never Used Second Hand Smoke Exposure: No Advance Directives Date on File: 07/11/23 service: No Current occupational status: retired Cognitive needs: Yes (walker) Hearing needs: Yes Vision needs: Yes Questionnaire Thrive Questionnaire Date Thrive assessed: 04/09/25 I am a: Patient What is your living situation today?: I have a steady place to live Within the past 12 months, did the food you bought not last and you didn't have the money to get more?: Never true Within the past 12 months, did you worry whether your food would run out before you got money to buy more?: Never true Do you have trouble paying for medicines?: No Do you have trouble getting transportation to medical appointments?: No Do you have trouble paying your heating and electricity bill?: No Do you have trouble taking care of your child, family member or friend?: No Do you have trouble with day-to-day activities such as bathing, preparing meals, shopping, managing finances, etc.?: No Are you currently unemployed and looking for a job?: No Are you interested in more education?: No Please select the resources that you would like help with: None Currently or been in a relationship where the following occur: No concerns reported THRIVE Score: 0 LIYA-7 AMB Questionnaire LIYA-7 Date LIYA - 7 assessed: 04/09/25 Source: Developed by Drs. Montana Salmon, Annalise Muse, Chris Montana and colleagues, with an educational shiela from [employer]. Review of Systems Narrative Review of Systems - Musculoskeletal: Reports pain in the left elbow, both wrists, and hands. - Integumentary: Reports swelling of both wrists, hands, and the back of the neck. - Lymphatic: Reports a new, intermittent, golf ball-sized lump in the right groin area that comes and goes. Physical exam (Primary Care) Vital Signs: Last Vital Signs Pulse 74 10/08/25 11:08 BP 130/62 10/08/25 11:08 Pulse Ox 96 10/08/25 11:08 Oxygen Delivery Method Room Air 10/08/25 11:08 BMI result Body Mass Index 22.4 Tobacco/Smoking Status: Tobacco use Status Tobacco use date assessed 08/06/25 10/08/25 11:09 Patient Tobacco Use Status Never used Tobacco 10/08/25 11:09 Tobacco use type Cigarette 10/08/25 11:09 e-Cigarette/Vaping Use Never Used 10/08/25 11:09 Thrive Assessment: Date of Thrive Assessment Date Thrive assessed 04/09/25 10/08/25 11:09 Currently or been in a relationship where the following occur: No concerns reported Narrative Physical Exam - General: Patient is alert and responsive. - Musculoskeletal: Examination of bilateral wrists performed. - Inguinal: Examination of the right inguinal region reveals no palpable mass or hernia, even with coughing. Const General: alert; No acute distress Eyes Conjunctivae: conjunctivae normal Resp Auscultation: clear to auscultation bilaterally Cardio Rate: regular rate Rhythm: regular rhythm GI Inspection: Yes normal to inspection Extrem General: Yes normal to inspection and No edema Coding Level of Care Code Est Pt Level 4 (75680) Complex visit Add On G2211 Diagnoses Swelling of left elbow M25.422 Swelling of left wrist M25.432 Age-related osteoporosis without current pathological fracture M81.0 Osteoporosis type: age-related Presence of current pathological fracture: without current pathological fracture Inguinal lymphadenopathy R59.0 Assessment & Plan Assessment & Plan (1) Swelling of left elbow: Code(s): M25.422 - Effusion, left elbow Category: Medical Plan: Patient treated as infection with cephalexin (2) Swelling of left wrist: Code(s): M25.432 - Effusion, left wrist Category: Medical Plan: Patient treated as infection with cephalexin (3) Osteoporosis: Comment: Forrest: 2011 to 2019. Alendronate: experienced anaphylaxis patient cannot recall what happened with this. Prolia recommended, January 2022. Patient received a dose 04/2023 Last bone density May 2024 Code(s): M81.0 - Age-related osteoporosis without current pathological fracture Category: Medical Qualifiers: Osteoporosis type: age-related Presence of current pathological fracture: without current pathological fracture Qualified Code(s): M81.0 - Age-related osteoporosis without current pathological fracture Plan: Patient is under rheumatology on Prolia (4) Inguinal lymphadenopathy: Code(s): R59.0 - Localized enlarged lymph nodes Category: Medical Plan Plan Patient was informed and verbally consented to the use of an ambient scribe for clinic note documentation during this visit. 1. Rheumatoid Arthritis The patient's presentation with swelling in multiple joints is concerning for a rheumatoid arthritis flare, rather than gout. X-ray findings of erosive degenerative arthritis support a diagnosis that is causing bone destruction. A referral will be made to Rheumatology for further evaluation and management, and the office will assist in scheduling a local appointment. For pain management, a prescription for tramadol will be sent to the pharmacy, as other anti-inflammatory medications are contraindicated with the patient's use of Plavix. The patient will continue taking methotrexate. 2. Intermittent Right Inguinal Mass The patient reports a new intermittent, golf ball-sized lump in the right groin, which was not present on exam. The differential diagnosis includes reactive lymphadenopathy, potentially from a lower extremity process, or an inguinal hernia. Since the lump is intermittent and resolves on its own, an acute infection is less likely. The plan is for the patient to monitor the area and to call for re-evaluation if the lump persists for more than a week or becomes constant. Discussion Notes I discussed with the patient that the symptoms of swelling in multiple joints are more consistent with a flare of rheumatoid arthritis than gout. I explained that the X-ray results showing erosive degenerative arthritis indicate that the process is damaging the bone, which is a concern. I recommended a consultation with a animal science professor for specialized care, and I informed the patient that my office would assist in scheduling an appointment with a local provider to avoid the inconvenience of traveling. For pain relief, I explained that due to the patient's use of Plavix, we are limited to either Tylenol or a stronger pain medication like tramadol, which I prescribed with instructions to take it with food. Regarding the intermittent groin lump, I explained that it is likely a reactive lymph node, which can enlarge in response to an issue in the leg. I advised the patient to monitor the area and assured them that if it resolves, it is not a concern. I provided clear return precautions, instructing the patient to call if the lump persists for about a week, as this would require further investigation. Patient Instructions - Please follow up with a animal science professor for your joint pain and swelling. My office will help you schedule an appointment with a local doctor. I have provided their phone number: [phone]. - I have sent a prescription for tramadol to your pharmacy for pain relief. Take this medication with food as needed. This medication helps with pain but does not cure the underlying issue. - Continue to take your current medications as prescribed, including methotrexate and Plavix. - Keep an eye on the lump in your right groin. - If the groin lump does not go away after about a week or if it stays there constantly, please call the office to schedule a follow-up appointment. Orders: Referrals Rheumatology Referral M25.432 - Effusion, left wrist Medications: Changed From tramadol 50 mg PO Q6-8H PRN 120 tabs 0RF pain M19.011 - Primary osteoarthritis, right shoulder, M19.012 - Primary osteoarthritis, left shoulder To tramadol 50 mg PO BID PRN 60 tabs 0RF pain M19.011 - Primary osteoarthritis, right shoulder, M19.012 - Primary osteoarthritis, left shoulder Refilled tramadol 50 mg PO BID PRN 60 tabs 0RF pain M19.011 - Primary osteoarthritis, right shoulder, M19.012 - Primary osteoarthritis, left shoulder
--- OUTSIDE RECORDS SUMMARY | 2025-10-08 12:45 | XMS_ITS | Encounter Summary ---
Author Organization [facility] Address [address] [place] [address] Care Team Providers Care Meteorological Technician Name Role Phone Unavailable Primary Care Provider Unavailabl e Encounter Details Date Type Department Care Team (Late st Contact Info) Description 10/04/2024 Lab Requisition [facility] - Main Lab [address] [place] [address] Angelo Kasper MD [address] [place] [address] Encounter for other general examination Social History [...] ult [facility] [address] [place] [address], [place] [phone] documented in this encounter Visit Diagnoses Diagnosis Encounter for other general examination documented in this encounter
--- OUTSIDE RECORDS SUMMARY | 2025-10-08 12:45 | XMS_ITS | Encounter Summary ---
Author Organization [facility] Address [address] [place] [address] Care Team Providers Care Senior Staff Accountant Name Role Phone Unavailable Primary Care Provider Unavailabl e Encounter Details Date Type Department Care Team (Late st Contact Info) Description 10/09/[address] [facility] Lab [address] [facility] [place] [address] Angelo Kasper MD [address] [place] [address] Encounter for other general examination Social History [...] LAB CHEMISTRY METHOD 10/09/2024 12:[address] [facility] Potassium 4.1 3.5 - 5.5 mmol/L LAB CHEMISTRY METHOD 10/09/2024 12:[address] [facility] Chloride 100 96 - 110 mmol/L LAB CHEMISTRY METHOD 10/09/2024 12:[address] [facility] CO2 26 21 - 32 mmol/L LAB CHEMISTRY METHOD 10/09/2024 12:[address] [facility] Anion Gap 6 [...] PM [facility] Comment:Calculation based on the [...] Res ult [facility] [address] [place] [address], documented in this encounter Visit Diagnoses Diagnosis Encounter for other general examination documented in this encounter
--- OUTSIDE RECORDS SUMMARY | 2025-10-08 12:45 | XMS_ITS | Encounter Summary ---
Author Organization [facility] Address [address] [place] [address] Care Team Providers Care Chip Applying Machine Tender Name Role Phone Unavailable Primary Care Provider Unavailabl e Encounter Details Date Type Department Care Team (Late st Contact Info) Description 10/06/2024 Lab Requisition [facility] - Main Lab [address] [facility] [place] [address] Angelo Kasper MD [address] [place] [id number] Encounter for other general examination Social History [...] LAB CHEMISTRY METHOD 10/06/2024 9:33 AM EST [facility] ([facility]) [facility] Blood Venous blood specimen / Unknown Venipuncture / Unknown 10/06/2024 5:48 AM EST 10/06/2024 6:48 AM EST Narrative [facility] - 10/06/2024 9:33 AM EST [facility] 8 AM SPEC: 5.0-23.0 mcg/dL 4 PM SPEC: 3.0-16.0 mcg/dL 8 PM SPEC: <5.0 mcg/dL Angelo Kasper MD LAB BLOOD ORDERABLES Final Res ult Performing Organization Address City/[facility]/ZIP Co de Phone Number [facility] [address] [place] [address], [place] [phone] * Thyroid stimulating hormone (10/06/2024 5:48 AM EST) Pathologist [facility] TSH 2.14 0.40 - 4.00 mcIU/mL LAB CHEMISTRY METHOD 10/06/2024 8:28 AM EST [facility] Blood Venous blood specimen / Unknown Venipuncture / Unknown 10/06/2024 5:48 AM EST 10/06/2024 6:48 AM EST us Angelo Kasper MD LAB BLOOD ORDERABLES Final Res ult Performing Organization Address City/[facility]/ZIP Co de Phone Number [facility] [address] [place] [address], [place] [phone] * (ABNORMAL) Basic metabolic panel (10/06/2024 5:48 AM EST) Sodium 130(L) 133 - 145 mmol/L LAB CHEMISTRY METHOD 10/06/2024 7:23 AM EST [facility] Potassium 4.0 3.5 - 5.5 mmol/L LAB CHEMISTRY METHOD 10/06/2024 7:23 AM EST [facility] Chloride 98 96 - 110 mmol/L LAB CHEMISTRY METHOD 10/06/2024 7:23 AM EST [facility] CO2 26 21 - 32 mmol/L LAB CHEMISTRY METHOD 10/06/2024 7:23 AM EST [facility] Anion Gap 6 3 - 11 LAB CHEMISTRY METHOD 10/06/2024 7:23 AM [facility] Glucose 76 70 - 100 mg/dL LAB CHEMISTRY METHOD 10/06/2024 7:23 AM [facility] BUN 9 5 - 25 mg/dL LAB CHEMISTRY METHOD 10/06/2024 7:23 AM [facility] Creatinine 0.62 0.50 - 1.10 mg/dL LAB CHEMISTRY METHOD 10/06/2024 7:23 AM [facility] eGFR 87 >=60 mL/min/1. 73m2 LAB CHEMISTRY METHOD 10/06/2024 7:23 AM [facility] Comment:Calculation based on the Chronic Kidney Disease Epidemiology Collaboration (CKD-EPI) equation refit without adjustment for race. BUN/Creatinine Ratio 14.5 LAB CHEMISTRY METHOD 10/06/2024 7:23 AM [facility] Calcium 8.4(L) 8.5 - 10.5 mg/dL LAB CHEMISTRY METHOD 10/06/2024 7:23 AM [facility] Blood Venous blood specimen / Unknown Venipuncture / Unknown 10/06/2024 5:48 AM EST 10/06/2024 6:48 AM EST us Angelo Kasper MD LAB BLOOD ORDERABLES Final Res ult [facility] [address] [place] [address], documented in this encounter Visit Diagnoses Diagnosis Encounter for other general examination documented in this encounter
--- OUTSIDE RECORDS SUMMARY | 2025-10-08 12:45 | XMS_ITS | Encounter Summary ---
Author Organization [facility] Address [address] [place] [address] Care Team Providers Care Informatics Nurse Specialist Name Role Phone Unavailable Primary Care Provider Unavailabl e Encounter Details Date Type Department Care Team (Late st Contact Info) Description 10/11/2024 Lab Requisition [facility] Lab [address] [facility] [place] [address] Angelo Kasper MD [address] [place] [phone] Encounter for other general examination Social History [...] 1:13 PM EST [facility] Potassium 4.0 3.5 - 5.5 mmol/L LAB CHEMISTRY METHOD 10/11/2024 1:13 PM EST [facility] Chloride 102 96 - 110 mmol/L LAB CHEMISTRY METHOD 10/11/2024 1:13 PM EST [facility] CO2 23 21 - 32 mmol/L LAB CHEMISTRY METHOD 10/11/2024 1:13 PM EST [facility] Anion Gap 9 [...] Res ult [facility] [address] [place] [address], documented in this encounter Visit Diagnoses Diagnosis Encounter for other general examination documented in this encounter
--- OUTSIDE RECORDS SUMMARY | 2025-10-08 12:45 | XMS_ITS | Encounter Summary ---
Author Organization [facility] Address [address] [place] [address] Care Team Providers Care Header Dock Name Role Phone Unavailable Primary Care Provider Unavailabl e Encounter Details Date Type Department Care Team (Late st Contact Info) Description 09/29/2024 Lab Requisition [facility] - Main Lab [address] [place] [address] Angelo Kasper MD [address] [place] [phone] Encounter for other general examination Social History [...] LAB HEMETOLOGY METHOD 09/29/2024 11:08 AM EST [facility] RBC 4.10 3.80 - [...] Res ult [facility] [address] [place] [address], [place] [phone] * Magnesium (09/29/2024 7:35 AM EST) [facility] Magnesium 2.1 1.9 - 2.6 mg/dL LAB CHEMISTRY METHOD 09/29/2024 11:09 AM EST [facility] Blood Venous blood specimen / Unknown Venipuncture / Unknown 09/29/2024 7:35 AM EST 09/29/2024 10:30 AM EST us Angelo Kasper MD LAB BLOOD ORDERABLES Final Res ult [facility] [address] [place] [address], [place] [phone] * (ABNORMAL) Comprehensive metabolic panel (09/29/2024 7:35 AM EST) [facility] Sodium 138 133 - 145 mmol/L [...] [facility] Comment:Calculation based on the [...] Res ult [facility] [address] [place] [address], documented in this encounter Visit Diagnoses Diagnosis Encounter for other general examination documented in this encounter
--- OUTSIDE RECORDS SUMMARY | 2025-10-08 12:45 | XMS_ITS | Encounter Summary ---
Author Organization [employer] Address [address] [place] [address] Care Team Providers Care Director Of Casework Services Name Role Phone Unavailable Primary Care Provider Unavailabl e Encounter Details Date Type Department Care Team (Late st Contact Info) Description 10/04/2024 Lab Requisition [facility] - Main Lab 299 [facility] [place] [address] Angelo Kasper MD [address] [place] [address] [phone] Encounter for other general examination Social History [...] and culture (10/04/2024 4:00 AM EST) [facility] Urine 1.018 1.003 - 1.030 LAB URINALYSIS [...] MD LAB URINE ORDERABLES Final Res ult [facility] [address] [place] [address], [place] [phone] * Navarro urine culture tube (10/04/2024 4:00 AM EST) Extra Tube Hold for add-ons. 10/04/2024 11:01 AM EST [facility] Comment:Auto resulted. Urine Urine specimen obtained by clean catch procedure / Unknown Non-blood Collection / Unknown 10/04/2024 4:00 AM EST 10/04/2024 9:37 AM EST us Angelo Kasper MD LAB URINE ORDERABLES Final Res ult [facility] [address] [place] [address], [place] [phone] * Sodium, urine, random (10/04/2024 4:00 AM EST) Sodium, Ur 87 mmol/L LAB CHEMISTRY METHOD 10/04/2024 10:46 AM EST [facility] Urine Urine specimen obtained by clean catch procedure / Unknown Non-blood Collection / Unknown 10/04/2024 4:00 AM EST 10/04/2024 9:37 AM EST us Angelo Kasper MD LAB URINE ORDERABLES Final Res ult [facility] [address] [place] [address], [place] [phone] * Osmolality, urine (10/04/2024 4:00 AM EST) Osmolality, Urine 475 300 - 1,300 mOsm/kg LAB CHEMISTRY METHOD 10/04/2024 10:45 AM EST [facility] Urine Urine specimen obtained by clean catch procedure / Unknown Non-blood Collection / Unknown 10/04/2024 4:00 AM EST 10/04/2024 9:37 AM EST us Angelo Kasper MD LAB URINE ORDERABLES Final Res ult [facility] ([facility] [address] [place] [address], documented in this encounter Visit Diagnoses Diagnosis Encounter for other general examination documented in this encounter
--- OUTSIDE RECORDS SUMMARY | 2025-10-08 12:45 | XMS_ITS | Encounter Summary ---
Author Organization [facility] Address [address] [place] [address] Care Team Providers Care Soa Integration Developer Name Role Phone Unavailable Primary Care Provider Unavailabl e Encounter Details Date Type Department Care Team (Late st Contact Info) Description 09/30/2024 Lab Requisition [facility] - Main Lab [address] [place] [address] Angelo Kasper MD [address] [place] [address] [phone] Encounter for other general examination Social History [...] [facility] RBC 4.10 3.80 - 4.80 M/mcL LAB HEMETOLOGY METHOD 09/30/2024 1:38 PM EST [facility] Hemoglobin 12.4 11.5 - 16.0 g/dL LAB HEMETOLOGY METHOD 09/30/2024 1:38 PM EST [facility] Hematocrit 38.8 35.0 - 47.0 % LAB HEMETOLOGY METHOD 09/30/2024 1:38 PM [facility] MCV 95.1 79.0 - 98.0 FL LAB HEMETOLOGY METHOD 09/30/2024 1:38 PM [facility] MCH 30.4 27.0 - 32.0 pcg LAB HEMETOLOGY METHOD 09/30/2024 1:38 PM EST [facility] MCHC 32.0 32.0 - 37.0 g/dL LAB HEMETOLOGY METHOD 09/30/2024 1:38 PM [facility] RDW 14.1 11.0 - 15.0 % LAB HEMETOLOGY METHOD 09/30/2024 1:38 PM [facility] Platelets 279 130 - 400 K/mcL LAB HEMETOLOGY METHOD 09/30/2024 1:38 PM EST [facility] MPV 9.4 7.0 - [...] [facility] [address] [place] [address], * (ABNORMAL) Basic metabolic panel (09/30/2024 7:07 [...] [facility] Comment:Calculation based on the [...] LAB BLOOD ORDERABLES Final Res ult [facility] [address] [place] [address], documented in this encounter Visit Diagnoses Diagnosis Encounter for other general examination documented in this encounter
--- OUTSIDE RECORDS SUMMARY | 2025-10-08 12:45 | XMS_ITS | Clinical Summary ---
Author Organization [facility] Address [address] [place] [address] Care Team Providers Care Rn Relief Charge Name Role Phone Unavailable Primary Care Provider [...]
--- OUTSIDE RECORDS SUMMARY | 2025-10-08 12:45 | XMS_ITS | Encounter Summary ---
Author Organization [facility] Address [address] [place] [address] Care Team Providers Care Manager Of Organizational Development Name Role Phone Unavailable Primary Care Provider Unavailabl e Encounter Details Date Type Department Care Team (Late st Contact Info) Description 10/07/2024 Lab Requisition [facility] Lab [address] [facility] [employer] [place] [address] Angelo Kasper MD [address] [place] [phone] Encounter for other general examination Social History [...] LAB CHEMISTRY METHOD 10/07/2024 2:59 PM EST [facility] Potassium 4.2 3.5 - 5.5 mmol/L LAB CHEMISTRY METHOD 10/07/2024 2:59 PM EST [facility] Chloride 98 96 - 110 mmol/L LAB CHEMISTRY METHOD 10/07/2024 2:59 PM EST [facility] CO2 22 21 - 32 mmol/L LAB CHEMISTRY METHOD 10/07/2024 2:59 PM EST [facility] Anion Gap 10 3 - 11 LAB CHEMISTRY METHOD 10/07/2024 2:59 PM EST [facility] Glucose 63(L) 70 - 100 mg/dL LAB CHEMISTRY METHOD 10/07/2024 2:[address] [facility] BUN 9 5 - 25 mg/dL LAB CHEMISTRY METHOD 10/07/2024 2:[address] [facility] Creatinine 0.55 0.50 - 1.10 mg/dL LAB CHEMISTRY METHOD 10/07/2024 2:[address] [facility] eGFR 89 >=60 mL/min/1. 73m2 LAB CHEMISTRY METHOD 10/07/2024 2:[address] [facility] Comment:Calculation based on the Chronic Kidney Disease Epidemiology Collaboration (CKD-EPI) equation refit without adjustment for race. BUN/Creatinine Ratio 16.4 LAB CHEMISTRY METHOD 10/07/2024 2:[address] [facility] Calcium 8.3(L) 8.5 - 10.5 mg/dL LAB CHEMISTRY METHOD 10/07/2024 2:[address] [facility] Blood Venous blood specimen / Unknown 10/07/2024 7:28 AM EST 10/07/2024 12:05 PM EST us Angelo Kasper MD LAB BLOOD ORDERABLES Final Res ult [facility] [address] [place] [address], documented in this encounter Visit Diagnoses Diagnosis Encounter for other general examination documented in this encounter
--- OUTSIDE RECORDS SUMMARY | 2025-10-08 12:45 | XMS_ITS | Encounter Summary ---
Author Organization [facility] Address [address] [place] [address] Care Team Providers Care Medical Reviewer Name Role Phone Unavailable Primary Care Provider Unavailabl e Encounter Details Date Type Department Care Team (Late st Contact Info) Description 10/03/2024 Lab Requisition [facility] - Main Lab [address] [place] [address] Angelo Kasper MD [address] [place] [phone] Encounter for other general examination Social History [...] AM EST) WBC 4.2(L) 4.8 - 10.8 K/[facility] LAB HEMETOLOGY METHOD 10/03/2024 11:02 AM EST [facility] RBC 4.00 3.80 - 4.80 M/[facility] LAB HEMETOLOGY METHOD 10/03/2024 11:02 AM [facility] Hemoglobin 12.0 11.5 - 16.0 g/dL LAB HEMETOLOGY METHOD 10/03/2024 11:02 AM [facility] Hematocrit 37.5 35.0 - 47.0 % LAB HEMETOLOGY METHOD 10/03/2024 11:02 AM [facility] MCV 94.5 79.0 - 98.0 FL LAB HEMETOLOGY METHOD 10/03/2024 11:02 AM [facility] MCH 30.2 27.0 - 32.0 pcg LAB HEMETOLOGY METHOD 10/03/2024 11:02 AM [facility] MCHC 32.0 32.0 - 37.0 g/dL LAB HEMETOLOGY METHOD 10/03/2024 11:02 AM [facility] RDW 13.8 11.0 - 15.0 % LAB HEMETOLOGY METHOD 10/03/2024 11:02 AM [facility] Platelets 224 130 - 400 K/mcL LAB HEMETOLOGY METHOD 10/03/2024 11:02 AM [facility] MPV 9.6 7.0 - 11.0 FL LAB HEMETOLOGY METHOD 10/03/2024 11:02 AM [facility] NRBC 0.0 <1.0 % LAB HEMETOLOGY METHOD 10/03/2024 11:02 AM [facility] NRBC Absolute 0.00 <0.10 K/mcL LAB HEMETOLOGY METHOD 10/03/2024 11:02 AM [facility] Neutrophils Relative 57.4 % LAB HEMETOLOGY METHOD 10/03/2024 11:02 AM [facility] Lymphocytes Relative 22.8 % LAB HEMETOLOGY METHOD 10/03/2024 11:02 AM [facility] Monocytes Relative 13.5 % LAB HEMETOLOGY METHOD 10/03/2024 11:02 AM [facility] Eosinophils Relative 3.1 % LAB HEMETOLOGY METHOD 10/03/2024 11:02 AM [facility] Basophils Relative 1.0 % LAB HEMETOLOGY METHOD 10/03/2024 11:02 AM [facility] Immature Granulocytes Relative 2.2 % LAB HEMETOLOGY METHOD 10/03/2024 11:02 AM [facility] Neutrophils Absolute 2.39 1.50 - 7.00 K/mcL LAB HEMETOLOGY METHOD 10/03/2024 11:02 AM [facility] Lymphocytes Absolute 0.95(L) 1.00 - 5.00 K/mcL LAB HEMETOLOGY METHOD 10/03/2024 11:02 AM [facility] Monocytes Absolute 0.56 0.20 - 1.00 K/mcL LAB HEMETOLOGY METHOD 10/03/2024 11:02 AM [facility] Eosinophils Absolute 0.13 0.00 - 0.50 K/mcL LAB HEMETOLOGY METHOD 10/03/2024 11:02 AM [facility] Basophils Absolute 0.04 0.00 - 0.20 K/mcL LAB HEMETOLOGY METHOD 10/03/2024 11:02 AM [facility] Immature Granulocytes Absolute 0.09(H) 0.00 - 0.03 K/mcL LAB HEMETOLOGY METHOD 10/03/2024 11:02 AM [facility] Blood Venous blood specimen / Unknown Venipuncture / Unknown 10/03/2024 6:25 AM EST 10/03/2024 9:48 AM EST us Angelo Kasper MD LAB BLOOD ORDERABLES Final Res ult [facility] [address] [place] [address], * (ABNORMAL) Basic metabolic panel (10/03/2024 6:25 AM EST) Sodium 128(L) 133 - 145 mmol/L LAB CHEMISTRY METHOD 10/03/2024 11:21 AM [facility] Potassium 4.4 3.5 - 5.5 mmol/L LAB CHEMISTRY METHOD 10/03/2024 11:21 AM [facility] Chloride 94(L) 96 - 110 mmol/L LAB CHEMISTRY METHOD 10/03/2024 11:21 AM [facility] CO2 28 21 - 32 mmol/L LAB CHEMISTRY METHOD 10/03/2024 11:21 AM [facility] Anion Gap 6 3 - 11 LAB CHEMISTRY METHOD 10/03/2024 11:21 AM [facility] Glucose 66(L) 70 - 100 mg/dL LAB CHEMISTRY METHOD 10/03/2024 11:21 AM [facility] BUN 13 5 - 25 mg/dL LAB CHEMISTRY METHOD 10/03/2024 11:21 AM [facility] Creatinine 0.67 0.50 - 1.10 mg/dL LAB CHEMISTRY METHOD 10/03/2024 11:21 AM [facility] eGFR 85 >=60 mL/min/1. 73m2 LAB CHEMISTRY METHOD 10/03/2024 11:21 AM [facility] Comment:Calculation based on the Chronic Kidney Disease Epidemiology Collaboration (CKD-EPI) equation refit without adjustment for race. BUN/Creatinine Ratio 19.4 LAB CHEMISTRY METHOD 10/03/2024 11:21 AM [facility] Calcium 8.9 8.5 - 10.5 mg/dL LAB CHEMISTRY METHOD 10/03/2024 11:21 AM [facility] Blood Venous blood specimen / Unknown Venipuncture / Unknown 10/03/2024 6:25 AM EST 10/03/2024 9:48 AM EST us Angelo Kasper MD LAB BLOOD ORDERABLES Final Res ult [facility] [address] [place] [address], documented in this encounter Visit Diagnoses Diagnosis Encounter for other general examination documented in this encounter
--- OUTSIDE RECORDS SUMMARY | 2025-10-08 12:45 | XMS_ITS | Clinical Summary ---
Author Organization [address] [facility] Address [address] [place] [address] Phone Care Team Providers Care Mid Level Java Developer Name Role Phone Unavailable Primary Care [...] Depression Screening 11/06/2024 COVID-19 Vaccine (1 - 2024-2 6 season) 2025 Influenza Vaccine (#1) 2025 HIB [...]
--- OUTSIDE RECORDS SUMMARY | 2025-10-08 12:45 | XMS_ITS | Encounter Summary ---
Author Organization [facility] Address [address] [place] [address] Care Team Providers Care Manager Of Supply Chain Name Role Phone Unavailable Primary Care Provider Unavailabl e Encounter Details Date Type Department Care Team (Late st Contact Info) Description 10/05/2024 Lab Requisition [facility] - Main Lab [address] [facility] [employer] [place] [address] Angelo Kasper MD [address] [place] [phone] Encounter for other general examination Social History [...] Res ult [facility] [address] [place] [address], documented in this encounter Visit Diagnoses Diagnosis Encounter for other general examination documented in this encounter
== END 2025-10-08 12:27 | disposition home or self-care (01) ==
LOC: HO.HMCH 10:53
PROVIDERS: PCP Internal Medicine; Visit Provider Internal Medicine
DX: M25.422 Effusion, left elbow (principal); M25.432 Effusion, left wrist; M81.0 Age-related osteoporosis without current pathological fracture; R59.0 Localized enlarged lymph nodes

== ENCOUNTER → 2025-10-08 10:52 | Outpatient (BNVA) | payer MEDICARE, OTHER, SELFPAY | PROVIDERS: PCP Internal Medicine; Visit Provider Internal Medicine | DX: M25.422 Effusion, left elbow (principal); M25.432 Effusion, left wrist; M81.0 Age-related osteoporosis without current pathological fracture; R59.0 Localized enlarged lymph nodes | CPT/HCPCS: 99212 ==

== ENCOUNTER → 2025-10-10 06:09 | Day surgery (SDC) | payer MEDICARE, OTHER, SELFPAY ==
--- OUTSIDE RECORDS SUMMARY | 2025-09-17 16:11 | XMS_ITS | Clinical Summary ---
Author Organization [facility] Address [address] [place] [address] Care Team Providers Care Counter Help Name Role Phone Unavailable Primary Care Provider [...] 75+ series) 2013 COVID-19 Vaccine ( - 2024-2 6 season) 2025 Influenza (#1) 2025 HPV [...]
--- NOTE | 2025-10-07 10:55 | P.CONAN_ITS ---
HPI - Anesthesia Eval Consult details Narrative: Cx'd DOS (did not hold plavix) 85yo F for Revision Peripheral nerve Stimulator - Sacroiliac Joint s/p implant 03/2025 with MAC PMR/RA: Methotrexate Plavix for hx TIA PMFSH Active Problems Active Problems: All Active Problems Spinal cord stimulator dysfunction (Acute) Lipoma of back (Acute) Allergic conjunctivitis (Acute) Vision changes (Acute) Vitamin D deficiency (Acute) Sacroiliac joint dysfunction of both sides (Acute) Compression fracture of L1 lumbar vertebra (Acute) Elbow pain, left (Acute) Aortic stenosis, mild (Acute) Inability to walk (Acute) Restless leg syndrome (Acute) Benign paroxysmal positional vertigo (Acute) Constipation (Acute) [facility] use of drug (Acute) Meniere disease (Acute) Medication monitoring encounter (Acute) Spondylosis of lumbar spine (Acute) Generalized anxiety disorder (Acute) Recurrent aphthous stomatitis (Acute) Bicipital tendinitis of shoulder (Acute) Transient ischemic attack (TIA) (Acute) Osteoarthritis of shoulders, bilateral (Acute) Osteoarthritis of carpometacarpal (CMC) joint of right thumb (Acute) Polymyalgia rheumatica (Acute) Overweight (BMI 25.0-29.9) (Acute) Seropositive rheumatoid arthritis (Acute) Anxiety and depression (Acute) Osteoporosis (Acute) Gout (Acute) Restless leg syndrome (Acute) Hypergammaglobulinemia (Acute) GERD (gastroesophageal reflux disease) (Acute) Seizure disorder (Acute) Hypertension (Acute) Hypercholesterolemia (Acute) Asthma (Acute) Peripheral neuropathy (Acute) Past Medical History Medical History (Updated 10/09/25 @ 09:22 by Maryann Hernandez RN) Pain in left hand Vomiting High cholesterol Pre-op chest exam Meniere disease Transient ischemic attack (TIA) Osteoarthritis of shoulders, bilateral Osteoarthritis of carpometacarpal (CMC) joint of right thumb Overweight (BMI 25.0-29.9) Thrush, oral Nondisplaced fracture of fifth metatarsal bone, left foot, subsequent encounter for fracture with nonunion Seropositive rheumatoid arthritis Fracture of 5th metatarsal Fracture of fifth metatarsal bone of right foot Polymyalgia rheumatica Anxiety and depression Lumbar degenerative disc disease Osteoporosis Gout Restless leg syndrome Hypergammaglobulinemia GERD (gastroesophageal reflux disease) Seizure disorder Hypertension Hypercholesterolemia Asthma Peripheral neuropathy Rheumatoid arthritis Family History Family History Father CVD (cardiovascular disease) Mother No problems noted. Family history of problems with anesthesia: No Surgical History Surgical History History of surgery (02/07/25) History of bilateral knee replacement Corneal transplant status History of arthroplasty of right hip History of total abdominal hysterectomy History of corneal transplant H/O left knee surgery History of open reduction and internal fixation (ORIF) procedure History of cholecystectomy History of appendectomy History of Problems with Anesthesia: No Social History Social History (Updated 10/09/25 @ 09:22 by Maryann Hernandez RN) Household Members: Significant Other Household Members Other:: partner Housing: House Are you a primary workforce investment act career manager to a significant other at home: No Do you presently have visiting nurse or other home services: Yes ([employer]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 If so, by whom?: No Are you DNR?: No Advance Directives: No Advance Directives Information Provided: Yes Advance Directives on File: No Advance Directives Date on File: 07/11/23 service: No Current occupational status: retired Cognitive needs: Yes (walker) Hearing needs: Yes Vision needs: Yes Meds Allergies Allergy/AdvReac Type Severity Reaction Status Date / Time alendronate sodium (From Allergy Severe ANAPHYLAXIS Verified 10/08/25 11:09 FOSAMAX) lisinopril (LISINOPRIL) Allergy Severe ANAPHYLAXIS, Verified 10/08/25 11:09 cough clarithromycin Allergy Intermediate CONFUSION, Verified 10/08/25 11:09 (CLARITHROMYCIN) sores on tongue, dry mouth simvastatin (SIMVASTATIN) Allergy Mild DRY Verified 10/08/25 11:09 THROAT, achy, confusion Home Medications ?Medication ?Instructions ?Recorded ?Confirmed ?Last Taken ?Type vitamin B complex (B 1 tab PO DAILY 09/04/20 12/02/2809/26/24 History Complex-Vitamin B12 tablet) bisacodyl 5 mg tablet,delayed 5 mg PO DAILY PRN Consti pation 09/27/24 10/09/25 Unknown History release olopatadine 0.1 % eye drops 1 drp ophthalmic (eye) BID PRN 06/18/25 10/09/25 Unknown History Allergy Symptoms omeprazole 20 mg capsule,delayed 20 mg PO DAILY 10/09/25 Unknown History release Assessment and Plan Assessment Anesthesia Assessment: Chart Reviewed Final Anesthetic Review Family History of Problems with Anesthesia: No History of Problems with Anesthesia: No
[2025-10-08 13:52] VITALS: BMI 22.4
[2025-10-09 09:15] VITALS: BMI 21.8
== END ==
LOC: HO.SSS 06:12
PROVIDERS: PCP Internal Medicine; Visit Provider Anesthesiology
DX: M53.3 Sacrococcygeal disorders, not elsewhere classified (principal); G89.4 Chronic pain syndrome; Z53.09 Procedure and treatment not carried out because of other contraindication; Z79.02 Long term (current) use of antithrombotics/antiplatelets